=== PATIENT | female | born 1980 | race Caucasian/White ===

== ENCOUNTER → 2017-06-28 15:05 | Outpatient (CLI) | payer MEDICAID, SELFPAY ==
[2017-06-28 17:56] LABS: Absolute Lymphocyte Count 1.95 X10^3/ul (0.83-4.51); Absolute Neutrophil Count 4.8 X10^3/uL (2.0-7.7); Basophil# 0.07 X10^3/uL; Basophil% 0.9 % (0-1); Eosinophil# 0.09 X10^3/uL; Eosinophils% 1.2 % (0-5); Hematocrit 40.1 % (37-47); Hemoglobin 13.6 g/dl (12.0-15.0); Lymphocyte # 1.95 X10^3/ul (4.0); Lymphocyte % 25.6 % (19-41); Mean Corp Hgb Conc 33.9 g/gl (32-36); Mean Corpuscular Hgb 29.8 pg (27.0-32.0); Mean Corpuscular Volume 87.7 fL (81-99); Mean Platelet Vol. 10.4 fl (6.2-12.0); Monocyte# 0.71 X10^3/uL; Monocyte% 9.3 % (0-10); Neutrophil # 4.79 X10^3/uL (2.7-7.7); Platelet Count 434 K/mm3 (150-450); RBC Distribution Width CV 14.4 % (11.6-14.6); RBC Distribution Width SD 45.8 fl (35.1-43.9); Red Blood Count 4.57 M/mm3 (4.2-5.4); White Blood Count 7.6 K/mm3 (4.4-11.0)
[2017-06-28 17:57] LABS: POSITIVE COUNT NO; POSITIVE DIFFERENTIAL NO; POSITIVE MORPHOLOGY NO
[2017-07-05 12:09] LABS: Alternaria alternata <0.10 kU/L (Class 0); Aspergillus fumigatus <0.10 kU/L (Class 0); Bahia Grass <0.10 kU/L (Class 0); Bermuda Grass <0.10 kU/L (Class 0); Bluegrass, Kentucky <0.10 kU/L (Class 0); Cat Hair/Dander, Standard <0.10 kU/L (Class 0); Cedar, Mountain <0.10 kU/L (Class 0); Cladosporium herbarum <0.10 kU/L (Class 0); Cockroach, American <0.10 kU/L (Class 0); D farinae Mite <0.10 kU/L (Class 0); D pteronyssinus <0.10 kU/L (Class 0); Dog Epithelia <0.10 kU/L (Class 0); Elm, American White <0.10 kU/L (Class 0); Hazelnut Tree <0.10 kU/L (Class 0); Hickory, White <0.10 kU/L (Class 0); Johnson Grass <0.10 kU/L (Class 0); Maple/Box Elder <0.10 kU/L (Class 0); Mucor racemosus <0.10 kU/L (Class 0); Mugwort <0.10 kU/L (Class 0); Mulberry, White <0.10 kU/L (Class 0); Nettle <0.10 kU/L (Class 0); Oak, White <0.10 kU/L (Class 0); Penicillium chrysogen <0.10 kU/L (Class 0); Pigweed, Rough <0.10 kU/L (Class 0); Plantain, English <0.10 kU/L (Class 0); Ragweed, Short/Common <0.10 kU/L (Class 0); Sheep Sorrel(Dock) <0.10 kU/L (Class 0); Stemphylium herbarum <0.10 kU/L (Class 0); Sweet Gum <0.10 kU/L (Class 0); Sycamore, American <0.10 kU/L (Class 0)
[2017-07-05 12:52] LABS: ANTINUCLEAR ANTIBODIES DIRECT Positive (Negative)
== END ==
PROVIDERS: Family Provider Family Medicine; PCP Family Medicine; Visit Provider Family Medicine
DX: J31.0 Chronic rhinitis (principal); H04.123 Dry eye syndrome of bilateral lacrimal glands; R53.83 Other fatigue
CPT/HCPCS: 36415; 85025; 86003; 86038

== ENCOUNTER → 2017-07-06 09:41 | Outpatient (CLI) | payer MEDICAID, SELFPAY ==
[2017-07-09 12:08] LABS: Anti-Centromere B Ab <0.2 AI (0.0-0.9); Anti-Chromatin <0.2 AI (0.0-0.9); Anti-Jo <0.2 AI (0.0-0.9); Anti-Scleroderma-70 AB <0.2 AI (0.0-0.9); SJOGREN'S Anti-SS-A test < 0.2 AI (0.0-0.9); SJOGREN'S Anti-SS-B test < 0.2 AI (0.0-0.9); Smith Ab <0.2 AI (0.0-0.9)
[2017-07-09 14:56] LABS: Anti-dsDNA Ab <1 IU/mL (0-9)
== END ==
PROVIDERS: Family Provider Family Medicine; PCP Family Medicine; Visit Provider Family Medicine
DX: H04.123 Dry eye syndrome of bilateral lacrimal glands (principal)
CPT/HCPCS: 36415; 86225; 86235

== ENCOUNTER → 2017-07-16 20:08 | Outpatient (CLI) | payer MEDICAID, SELFPAY | PROVIDERS: Family Provider Family Medicine; PCP Family Medicine; Visit Provider Psychiatry & Neurology Neurology | DX: G47.33 Obstructive sleep apnea (adult) (pediatric) (principal) | CPT/HCPCS: 95811 ==

== ENCOUNTER → 2017-10-02 08:10 | Outpatient (CLI) | payer MEDICAID, SELFPAY ==
[2017-10-02 11:01] LABS: Cholesterol 162 mg/dL (200); High Density Lipoprotein 85 mg/dL; Triglycerides 54 mg/dL; Very Low Density Lipoprotein 11 mg/dL (5-40)
== END ==
PROVIDERS: Family Provider Family Medicine; PCP Family Medicine; Visit Provider Family Medicine
DX: Z00.00 Encounter for general adult medical examination without abnormal findings (principal)
CPT/HCPCS: 36415; 80061

== ENCOUNTER 2017-12-13 15:30 | Outpatient (RCR) | payer MEDICAID, SELFPAY ==
--- NOTE | 2017-11-16 07:31 | HP.PTEVAL ---
Patient's Visit Information AMINA ESPOSITO is a 37 year old F referred to Physical Therapy by Jam Verde with a diagnosis of Cervicalgia. Date of Evaluation: 11/15/17 Physical Therapist: Janusz Sawant PT, - Visit Plan Frequency: 2x /Week Duration: 4 Weeks Plan: Manual work to sub occipitals, paraspinals. . Postural strengthening,modalities PRN. PMH: DMD ambulates with B KAF orthoses, scoliosis,s/p thoracic -lumbar surgery with scar placemenmt - Subjective Subjective: Pt is 37 y/o female referred for cervicalagia. She reports a 3 week history of neck pain. She thinks this may be due to her job as she had a busy work day which required her to sit with a forward head position and look down for a prolonged time. She reports that her pain is located midline cervical region and raditates to the [place] regions. She describes this as achy. At it's worst, she felt she had some equilibrium issues but these are resolved. She has improved since initial onset. She denies n/t in UE's, reports infrequent BALDWIN's, and mild difficulty sleeping. She has PMH of DMD with significant postural assymetries.Patient has h/o of lumbar -upper thoraci surgery with scar placement due to scoliosis. Aggrevating factors: sitting for long periods of time. 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 Thoracic incision starting at T2 and goes down entire spine. Ambulating with B orthoses. PALPATION: L AC elevated, TTP suboccipitals L>R. ROM: Cervical flexion 40, extension 24, L rotation 50%, R rotation 75%. STRENGTH: Unable to elicit deep cervical flexor hold. SPECIAL TESTS: Distraction (+). - Goals Goal 1:: Pt will improve L rotation symmetrical to unaffected side to improve tolerance with driving. Goal Time Frame: 4-6 Weeks Goal 2:: Pt will report ability to work a full shift without pain or limitation to improve work tolerance. Goal Time Frame: 4-6 Weeks Goal 3:: Pt will report no limitation with sleeping to improve QOL. Goal Time Frame: 4-6 Weeks Goal 4:: Pt will be independent with HEP to sustain gains made in the clinic. Goal Time Frame: 4-6 Weeks - Rehabilitation Potential Physical Therapy Diagnosis: Pt is a 37 y/o female referred for cervicalgia by Dr. Jam Verde. She has PMH of DMD. She reports that pain started about 3 weeks ago when she had a busy work week and maintained a protruded head posture for some time. Her symptoms have improved since but she notes localized soreness/achiness in the upper cervical region and midline neck. She is tender to palpation to her L suboccipitals and exhibits a severe loss of deep cervical neck flexor activation. Due to her job, UNIQUE, and symptom presentation she likely is experiencing soft tissue irritation to the suboccipitals and cervical paraspinals. She is having activity limitations that include difficulty sleeping, difficulty driving, and prolonged sitting. This affects her participation with work. She will benefit from skilled PT to address the mentioned impairments to maximize function. Rehabilitation Potential: Good - Anticipated Interventions Patient/Client Instruction: Educate patient on: Condition, Plan of Care For the Purpose of:: To decrease pain, To increase ROM, To improve muscle performance and motor function, To increase tolerance to activity/condition/position, To improve performance and independence with ADL's, To improve ability of physical actions for home/community/work/leisure, To increase flexibility/ROM, To improve endurance, To improve self management Therapeutic Exercise to Include: Strength training, Endurance training, Body mechanics, Postural training, Flexibilty training, Active ROM, Scapular Strength/Stabilization For the Purpose of:: To decrease pain, To increase ROM, To improve muscle performance and motor function, To increase tolerance to activity/condition/position, To improve ability of physical actions for home/community/work/leisure, To improve health of tissue, To decrease soft tissue restriction, To increase flexibility/ROM, To improve self management Manual Therapy Techniques to Include: Mobilization, Soft tissue mobilization For the Purpose of:: To decrease pain, To increase ROM, To increase tolerance to activity/condition/position, To improve ability of physical actions for home/community/work/leisure, To improve health of tissue, To decrease soft tissue restriction, To increase flexibility/ROM Cryotherapy (ice pack, ice massage): Yes Thermo therapy (hot pack): Yes Ultrasound (thermal/non thermal): Yes For the Purpose of:: To decrease pain, To increase ROM, To increase tolerance to activity/condition/position, To improve ability of physical actions for home/community/work/leisure, To decrease soft tissue restriction, To increase flexibility/ROM Thank you for the opportunity to evaluate your patient. For Medicare and Medicare HMO plans, please review the plan of care and approve it. It will need to be FAXED BACK to us at [phone] for Medicare purposes. Please let me know if there are questions or concerns regarding this plan of care. Physician Signature: Date:
--- NOTE | 2017-11-16 07:57 | HP.PTEVAL_ITS ---
Patient's Visit Information AMINA ESPOSITO is a 37 year old F referred to Physical Therapy by Jam Verde with a diagnosis of Cervicalgia. Date of Evaluation: 11/15/17 Physical Therapist: Janusz Sawant, PT, - Visit Plan Frequency: 2x /Week Duration: 4 Weeks Plan: Manual work to sub occipitals, paraspinals. . Postural strengthening, modalities PRN. PMH: DMD ambulates with B KAF orthoses, scoliosis,s/p thoracic -lumbar surgery with sacr placemenmt - Subjective Subjective: Pt is 37 y/o female referred for cervicalagia. She reports a 3 week history of neck pain. She thinks this may be due to her job as she had a busy work day which required her to sit with a forward head position and look down for a prolonged time. She reports that her pain is located midline cervical region and raditates to the Lorenzo [place] regions. She describes this as achy. At it's worst, she felt she had some equilibrium issues but these are resolved. She has improved since initial onset. She denies n/t in UE's, reports infrequent BALDWIN's, and mild difficulty sleeping. She has PMH of DMD with significant postural assymetries.Patient has h/o of lumbar -upper thoraci surgery with scar placement due to scoliosis. Aggrevating factors: sitting for long periods of time. 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 Thoracic incision starting at T2 and goes down entire spine. Ambulating with B orthoses. PALPATION: L AC elevated, TTP suboccipitals L>R. ROM: Cervical flexion 40, extension 24, L rotation 50%, R rotation 75%. STRENGTH: Unable to elicit deep cervical flexor hold. SPECIAL TESTS: Distraction (+). - Goals Goal 1:: Pt will improve L rotation symmetrical to unaffected side to improve tolerance with driving. Goal Time Frame: 4-6 Weeks Goal 2:: Pt will report ability to work a full shift without pain or limitation to improve work tolerance. Goal Time Frame: 4-6 Weeks Goal 3:: Pt will report no limitation with sleeping to improve QOL. Goal 4:: Pt will be independent with HEP to sustain gains made in the clinic. Goal Time Frame: 4-6 Weeks - Rehabilitation Potential Physical Therapy Diagnosis: Pt is a 37 y/o female referred for cervicalgia by Dr. Jam Verde. She has PMH of DMD. She reports that pain started about 3 weeks ago when she had a busy work week and maintained a protruded head posture for some time. Her symptoms have improved since but she notes localized soreness/ achiness in the upper cervical region and midline neck. She is tender to palpation to her L suboccipitals and exhibits a severe loss of deep cervical neck flexor activation. Due to her job, UNIQUE, and symptom presentation she likely is experiencing soft tissue irritation to the suboccipitals and cervical paraspinals. She is having activity limitations that include difficulty sleeping , difficulty driving, and prolonged sitting. This affects her participation with work. She will benefit from skilled PT to address the mentioned impairments to maximize function. Rehabilitation Potential: Good - Anticipated Interventions Patient/Client Instruction: Educate patient on: Condition, Plan of Care For the Purpose of:: To decrease pain, To increase ROM, To improve muscle performance and motor function, To increase tolerance to activity/condition/ position, To improve performance and independence with ADL's, To improve ability of physical actions for home/community/work/leisure, To increase flexibility/ROM, To improve endurance, To improve self management Therapeutic Exercise to Include: Strength training, Endurance training, Body mechanics, Postural training, Flexibilty training, Active ROM, Scapular Strength /Stabilization For the Purpose of:: To decrease pain, To increase ROM, To improve muscle performance and motor function, To increase tolerance to activity/condition/ position, To improve ability of physical actions for home/community/work/leisure , To improve health of tissue, To decrease soft tissue restriction, To increase flexibility/ROM, To improve self management Manual Therapy Techniques to Include: Mobilization, Soft tissue mobilization For the Purpose of:: To decrease pain, To increase ROM, To increase tolerance to activity/condition/position, To improve ability of physical actions for home/ community/work/leisure, To improve health of tissue, To decrease soft tissue restriction, To increase flexibility/ROM Cryotherapy (ice pack, ice massage): Yes Thermo therapy (hot pack): Yes Ultrasound (thermal/non thermal): Yes For the Purpose of:: To decrease pain, To increase ROM, To increase tolerance to activity/condition/position, To improve ability of physical actions for home/ community/work/leisure, To decrease soft tissue restriction, To increase flexibility/ROM Thank you for the opportunity to evaluate your patient. For Medicare and Medicare HMO plans, please review the plan of care and approve it. It will need to be FAXED BACK to us at [phone] for Medicare purposes. Please let me know if there are questions or concerns regarding this plan of care. Physician Signature: Date:
--- NOTE | 2017-12-13 17:12 | HP.PTDCSUM_ITS ---
HP - PT D/C Summary It has been my pleasure to treat AMINA ESPOSITO under orders from Jam Verde, for the diagnosis of Cervicalgia for a total of 8 visit(s). Discharge Date: 12/13/17 Please see the following information for a summary of their discharge status. - Subjective Subjective: Patient reports pain is about same.. 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 NEURO: INTACT. MMT : 4/5 ,except shoulders 4-/5. CERCVICAL ROM: flexion mod loss ,extension min loss,rotation /lateral flexion mod loss - Goals Goal 1:: Pt will improve L rotation symmetrical to unaffected side to improve tolerance with driving. Goal Progress: Progressing Goal 2:: Pt will report ability to work a full shift without pain or limitation to improve work tolerance. Goal Progress: Progressing Goal 3:: Pt will report no limitation with sleeping to improve QOL. Goal Progress: Progressing Goal 4:: Pt will be independent with HEP to sustain gains made in the clinic. Goal Progress: Goal Met - Plan Plan: D/C RTD - D/C Information Discharge Comments: RTD ,RECOMMEND X-RAYS If there are questions or concerns regarding this patient's physical therapy, please feel free to call me at [phone]. Thank you for the referral of this patient. Sincerely, Janusz Sawant, PT,
== END 2017-12-13 19:00 | disposition home or self-care (01) ==
LOC: PT 15:30
PROVIDERS: Family Provider Family Medicine; PCP Family Medicine; Visit Provider Family Medicine
DX: M25.512 Pain in left shoulder (principal); Q68.8 Other specified congenital musculoskeletal deformities; M54.2 Cervicalgia; R29.3 Abnormal posture
CPT/HCPCS: 97035; 97110; 97140; 97162

== ENCOUNTER → 2018-08-05 13:44 | Outpatient (CLI) | payer OTHER, SELFPAY ==
--- NOTE | 2018-08-05 13:49 | US_ITS ---
STUDY: THYROID ULTRASOUND REASON FOR EXAM: Female, 37 years old. Enlarged thyroid. TECHNIQUE: Ultrasound evaluation of the thyroid was performed with real-time and static ham-scale imaging. COMPARISON: None. FINDINGS: RIGHT LOBE: The right lobe of the thyroid gland measures 4.8 x 1.6 x 1.1 cm. There is a homogeneous echotexture. There are no demonstrated solid, cystic or complex lesions. LEFT LOBE: The left lobe of the thyroid gland measures 2.4 x 1.5 x 1.1 cm. There is a homogeneous echotexture. There are no demonstrated solid, cystic or complex lesions. ISTHMUS: The isthmus measures 2 mm. The regional lymph nodes are normal. Moderate vascularity is noted in both thyroid lobes. US/Thyroid IMPRESSION: Normal ultrasound examination of the thyroid. Electronically Signed: Ino Matson MD at 15:51 EDT , Service support ,
== END ==
PROVIDERS: Referring Provider Nurse Practitioner Family; Visit Provider Nurse Practitioner Family
DX: E04.9 Nontoxic goiter, unspecified (principal)
CPT/HCPCS: 76536

== ENCOUNTER → 2018-08-22 11:20 | Outpatient (CLI) | payer OTHER, SELFPAY ==
[2018-08-22 10:40] VITALS: BMI 19.7
--- NOTE | 2018-08-22 11:23 | RAD_ITS ---
STUDY: X-RAY EXAMINATION: SCOLIOSIS SERIES REASON FOR EXAM: Female, 37 years old. Back pain, scoliosis, prior fusion TECHNIQUE: Frontal view(s) of the thoracolumbar spine were obtained in the upright standing position. COMPARISON: None. FINDINGS: There is a 36 degree dextroscoliosis of the thoracic spine with the apex of the convexity at the T8 level. Posterior fusion rods of the thoracolumbar spine spanning from the upper thoracic spine to the mid lumbar spine. Normal thoracic vertebrae and endplates. Normal disc space heights of the thoracic spine. Normal lumbar vertebrae and endplates. Normal disc space heights of the lumbar spine. The soft tissue structures are unremarkable. There is pelvic asymmetry/tilt. RAD/Scoliosis 1 view IMPRESSION: C shaped rotatory levoscoliosis of the thoracic spine measuring up to 36 degrees. Thoracolumbar fusion. No comparison studies. Electronically Signed: Taz Alston MD at 10:52 EDT , Service support ,
--- NOTE | 2018-08-22 11:23 | RAD_ITS ---
HISTORY: chronic back pain COMPARISON: None FINDINGS: XR Spine Thoracic 3 Views: Long C-shaped thoracic dextroscoliosis with the apex of the curve at the T8-T9 level. Dextroscoliosis measures approximately 45. Thoracic vertebra appear normal in height. Thoracic spine stabilization with posterior paired Cline rods with hook devices for attachment. The rods appear intact. No complications seen. RAD/Thoracic Spine 3 Views IMPRESSION: Thoracic dextroscoliosis. Details above. at 0752 Reported and signed by: Frederick Farias MD Electronically Signed: Frederick Farias, at 7:51 EDT Tel , Service support ,
== END ==
PROVIDERS: Referring Provider Physician Assistant; Visit Provider Physician Assistant
DX: M41.9 Scoliosis, unspecified (principal); M54.6 Pain in thoracic spine; M43.20 Fusion of spine, site unspecified
CPT/HCPCS: 72072; 72081

== ENCOUNTER → 2019-07-28 12:47 | Outpatient (CLI) | payer OTHER, SELFPAY ==
[2018-08-22 10:40] VITALS: BMI 19.7
--- NOTE | 2019-07-28 12:49 | BI_ITS ---
MAMMOGRAPHY - BILATERAL SCREENING REASON FOR EXAM: Female, 38 years old. Routine annual screening examination. PERTINENT HISTORY: Non-contributory. TECHNIQUE: Digital bilateral breast faisal (3D mammographic acquisition) in the CC and MLO projections. 2-D mediolateral oblique (MLO) and craniocaudad (CC) views of both breasts were obtained. CAD: Full Field Digital Mammography with Computer Added Detection was performed. COMPARISON: None. Baseline examination. FINDINGS: Breast Composition: The breasts are heterogeneously dense, which may obscure small masses. There are no dominant masses or suspicious calcifications. Small benign-appearing bilateral axillary lymph nodes. No other significant abnormalities are identified. BI/SCREEN MAMM (CAD) W/FAISAL BILAT IMPRESSION: Negative screening mammogram. Yearly followup mammogram recommended. (A) ASSESSMENT CATEGORY: BIRADS Category 2: Benign. A letter regarding these results will be sent to the patient by the facility within 30 days. Approximately 10% of breast cancers are not detected by mammography. A normal mammogram should not delay biopsy of a clinically suspicious abnormality. [id number] Electronically Signed: Michael Bal, at 14:00 EST , Service support ,
== END ==
PROVIDERS: PCP Family Medicine; Referring Provider Family Medicine; Visit Provider Family Medicine
DX: Z12.31 Encounter for screening mammogram for malignant neoplasm of breast (principal)
CPT/HCPCS: 77063; 77067

== ENCOUNTER → 2020-04-27 16:50 | Outpatient (CLI) | payer OTHER, SELFPAY | PROVIDERS: PCP Family Medicine; Referring Provider Nurse Practitioner Family; Visit Provider Nurse Practitioner Family | DX: Z20.828 Contact with and (suspected) exposure to other viral communicable diseases (principal) | CPT/HCPCS: 87635; U0003 ==

== ENCOUNTER → 2020-08-27 10:27 | Outpatient (CLI) | payer OTHER, SELFPAY ==
[2020-08-27 12:22] LABS: Hematocrit 41.9 % (37-47); Hemoglobin 13.5 g/dL (12.0-15.0); Mean Corp Hgb Conc 32.2 g/dL (32-36); Mean Corpuscular Volume 89.9 fL (81-99); Mean Platelet Vol. 10.1 fl (6.2-12.0); Platelet Count 400 K/mm3 (150-450); RBC Distribution Width CV 13.4 % (11.6-14.6); RBC Distribution Width SD 44.1 fl (35.1-43.9); Red Blood Count 4.66 M/mm3 (4.2-5.4); White Blood Count 8.3 K/mm3 (4.4-11.0)
[2020-08-27 12:34] LABS: ALB/GLOB Ratio 1.1 RATIO (0.9-2.4); AST(SGOT) 17 U/L (15-37); Alanine Aminotransfer ALT/SGPT 21 U/L (13-56); Albumin, Serum 3.7 g/dL (3.2-5.0); Alkaline Phosphatase 114 U/L (45-117); Anion Gap 5 (5-15); BUN 13 mg/dL (7-18); BUN/Creat Ratio 43.2 RATIO (10-20); Chloride 104 mmol/L (98-107); Cholesterol 186 mg/dL (200); EST Glomerular Filtration Rate 259 mL/min (>60); Est Glom Filt Rate - Afr Amer 313 mL/min (>60); Globulin 3.5 g/dL (2.2-4.2); Glucose 91 mg/dL (74-106); High Density Lipoprotein 98 mg/dL; Potassium 3.6 mmol/L (3.5-5.1); Protein, Total 7.2 g/dL (6.4-8.2); Sodium Level 137 mmol/L (136-145); Triglycerides 51 mg/dL; Very Low Density Lipoprotein 10 mg/dL (5-40)
[2020-08-27 12:58] LABS: Vitamin D,25 Hydroxy 28.5 ng/mL
== END ==
PROVIDERS: PCP Family Medicine; Referring Provider Family Medicine; Visit Provider Family Medicine
DX: Z13.220 Encounter for screening for lipoid disorders (principal); G47.33 Obstructive sleep apnea (adult) (pediatric); E55.9 Vitamin D deficiency, unspecified
CPT/HCPCS: 36415; 80053; 80061; 82306; 85027

== ENCOUNTER → 2021-01-21 15:59 | Outpatient (CLI) | payer OTHER, SELFPAY ==
[2021-01-21 18:13] LABS: Absolute Lymphocyte Count 1.75 X10^3/uL (0.83-4.51); Absolute Neutrophil Count 6.2 X10^3/uL (2.0-7.7); Basophil# 0.07 X10^3/uL; Basophil% 0.8 % (0-1); Eosinophil# 0.15 X10^3/uL; Eosinophils% 1.6 % (0-5); Hematocrit 39.2 % (37-47); Hemoglobin 13.1 g/dL (12.0-15.0); Lymphocyte # 1.75 X10^3/ul (0.83-4.51); Lymphocyte % 19.2 % (19-41); Mean Corp Hgb Conc 33.4 g/dL (32-36); Mean Corpuscular Hgb 28.9 pg (27.0-32.0); Mean Corpuscular Volume 86.3 fL (81-99); Mean Platelet Vol. 10.3 fl (6.2-12.0); Monocyte% 9.9 % (0-10); NRBC Flagged by Analyzer 0 % (0-5); Neutrophil # 6.21 X10^3/uL (2.7-7.7); Neutrophil % 68.2 % (47-70); Platelet Count 406 K/mm3 (150-450); RBC Distribution Width CV 13.4 % (11.6-14.6); Red Blood Count 4.54 M/mm3 (4.2-5.4); White Blood Count 9.1 K/mm3 (4.4-11.0)
[2021-01-21 18:27] LABS: ALB/GLOB Ratio 0.9 RATIO (0.9-2.4); AST(SGOT) 15 U/L (15-37); Alanine Aminotransfer ALT/SGPT 22 U/L (13-56); Albumin, Serum 3.6 g/dL (3.2-5.0); Alkaline Phosphatase 114 U/L (45-117); Anion Gap 7 (5-15); BUN 11 mg/dL (7-18); BUN/Creat Ratio 38.6 RATIO (10-20); Calcium,Total 8.6 mg/dL (8.5-10.1); Chloride 105 mmol/L (98-107); Creatinine, Serum 0.28 mg/dL (0.55-1.02); EST Glomerular Filtration Rate 275 mL/min (>60); Est Glom Filt Rate - Afr Amer 333 mL/min (>60); Globulin 3.8 g/dL (2.2-4.2); Glucose 111 mg/dL (74-106); Lipase 81 U/L (73-393); Potassium 3.3 mmol/L (3.5-5.1); Protein, Total 7.4 g/dL (6.4-8.2); Sodium Level 139 mmol/L (136-145)
== END ==
PROVIDERS: PCP Family Medicine; Visit Provider Family Medicine
DX: R19.7 Diarrhea, unspecified (principal)
CPT/HCPCS: 36415; 80053; 83690; 85025; 86140

== ENCOUNTER → 2021-01-24 09:19 | Outpatient (CLI) | payer OTHER, SELFPAY | PROVIDERS: PCP Family Medicine; Visit Provider Family Medicine | DX: R19.7 Diarrhea, unspecified (principal) | CPT/HCPCS: 87506 ==

== ENCOUNTER → 2021-02-02 07:40 | Outpatient (CLI) | payer OTHER, SELFPAY ==
--- NOTE | 2021-02-02 07:45 | US_ITS ---
STUDY: ABDOMINAL ULTRASOUND - RIGHT UPPER QUADRANT REASON FOR VISIT: Female, 40 years old diarrhea TECHNIQUE: Ultrasound evaluation of the right upper quadrant was performed with real-time and static ham-scale imaging. TECHNICAL QUALITY: Adequate. COMPARISON: Comparison is made with prior examination 09/07/2016. FINDINGS: Liver: The liver measures 14.2 cm. There is normal echogenicity of the liver. The bile ducts are within normal limits. There is hepatic color flow. The direction of portal flow is hepatopetal. There is no demonstrated mass lesion. Gallbladder: Normal distended gallbladder. The gallbladder wall measures 3 mm. There is a negative sonographic Caruso''s sign. There is no pericholecystic fluid. There are no gallstones. Common Bile Duct (C.B.D.): The common bile duct measures 5 mm. Pancreas: Normal size of the head, body and tail of the pancreas. There is normal echogenicity of the pancreas. There is no demonstrated pancreatic mass or cyst. Right Kidney: Normal size of the right kidney. The right kidney measures 9.8 cm x 4.4 cm x 3.2 cm. Normal renal cortex. The right cortex measures 0.9 cm. There is no demonstrated renal mass or cyst. There is no right hydronephrosis. US/Abdomen Limited IMPRESSION: Normal right upper quadrant ultrasound examination. Electronically Signed: Michael Bal MD at 15:51 EDT , Service support ,
== END ==
PROVIDERS: PCP Family Medicine; Referring Provider Family Medicine; Visit Provider Family Medicine
DX: R19.7 Diarrhea, unspecified (principal)
CPT/HCPCS: 76705

== ENCOUNTER 2021-03-03 16:00 | Outpatient (RCR) | payer OTHER, SELFPAY ==
--- NOTE | 2020-12-28 08:12 | HP.PTEVAL ---
Patient's Visit Information AMINA GODINEZ is a 40 year old F referred to Physical Therapy by Dr. Jam Verde MD with a diagnosis of R Shoulder pain OA. Date of Evaluation: 12/21/20 Physical Therapist: Home Hess PT, SONALI, SCS, CSCS - Subjective Ms. Godinez is a pleasant 40 yo who was referred to our care by Dr Jam Verde following a consult by a neurologist at [facility]. 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 She states that she is here because she is having difficulty with using her right arm in addition to neck pain. She states that she is relatively inactivate and may sit at her desk all day. When she tries to enter her home she must use her right dominant arm to navigate her steps and door. Since she has been taking magnesium her pain level in her R>L shoulder has decreased. Her past medical history is significant for arthrogryposis. When she was 4 she had her lower legs removed and she currently ambulates with lower leg orthosis. When she was 10 yo she underwent a spinal fusion with instrumentation. An xray taken in 2019, indicated that she has a c shaped rotatory levoscoliosis of the thoracic spine measuring up to 36 degrees. May have had a history of R shoulder dislocation. - Pain Right Shoulder Pain Intensity (Out of 10): 3 Pain Intensity Range: 2, 7 Left Shoulder Pain Intensity (Out of 10): 1 - Objective Iliac crest appear to be even with braces in standing position as a result of her gait she had a tendency to abduct her lower legs and waddles from side to side. In the standing position I was able to side bend her thoracic spine to the right about 10-15 degrees and left side bending to 40-50 degrees. Right Thoracic rotation was minimal to the right and within a functional limit on the left. Either of those movements increased her shoulder pain. Closer inspection of her Right shoulder indicated 25 degrees of PROM ext. rot 95 flexion abd 90 Int rot to PSIS. Left shoulder 90 ext rot 170 shoulder flexion 160 Abd int rot to L5. 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 MMT of shoulder was r ext 5.5lbs int rot 18lbs shd flexion 18 lbs Left shoulder 9.5 Ext rot, int rot 19 lbs FF 5 lbs. There is a significant difference in ext rotation and ration of int to ext rotation is off. Right active flexion is about 80 degrres. - Balance/Special Test Scores Quick DASH Score: 38.6350 - Goals Goal 1:: Understand the HEP and how her condition and enironment are contributing to her pain and lost in function. Goal Time Frame: 1 Week Goal 2:: Improve ROM by 10% Goal Time Frame: 2 Weeks Goal 3:: Improve MMT of by 20% and improve asymetry Goal Time Frame: 4-6 Weeks Goal 4:: Decrease pain Goal Time Frame: 4-6 Weeks Goal 5:: Adjust workspace and home ADL's to decrease pressure on right dominant shoulder. - Rehabilitation Potential Physical Therapy Diagnosis: R Frozen shoulder Ad Capsulities with underling OA. Rehabilitation Potential: Fair - Anticipated Interventions Thank you for the opportunity to evaluate your patient. For Medicare and Medicare HMO plans, please review the plan of care and approve it. It will need to be FAXED BACK to us at [phone] for Medicare purposes. For Medicare only, by signing this I certify the plan of care. Please let me know if there are questions or concerns regarding this plan of care. Physician Signature: Date:
== END 2021-03-03 19:00 | disposition home or self-care (01) ==
LOC: PT 16:00
PROVIDERS: PCP Family Medicine; Referring Provider Family Medicine; Visit Provider Family Medicine
DX: Q68.8 Other specified congenital musculoskeletal deformities (principal)
CPT/HCPCS: 97012; 97110; 97140; 97162

== ENCOUNTER → 2021-12-26 | Outpatient (CLI) | payer OTHER, SELFPAY ==
[2021-12-26 10:06] LABS: Absolute Lymphocyte Count 2.03 X10^3/uL (0.83-4.51); Absolute Neutrophil Count 6.4 X10^3/uL (2.0-7.7); Basophil# 0.09 X10^3/uL; Eosinophil# 0.16 X10^3/uL; Eosinophils% 1.7 % (0-5); Hematocrit 41.6 % (37-47); Hemoglobin 13.8 g/dL (12.0-15.0); Lymphocyte # 2.03 X10^3/ul (0.83-4.51); Lymphocyte % 21.6 % (19-41); Mean Corp Hgb Conc 33.2 g/dL (32-36); Mean Corpuscular Hgb 28.8 pg (27.0-32.0); Mean Corpuscular Volume 86.8 fL (81-99); Mean Platelet Vol. 10.5 fl (6.2-12.0); Monocyte# 0.74 X10^3/uL; Monocyte% 7.9 % (0-10); NRBC Flagged by Analyzer 0 % (0-5); Neutrophil # 6.36 X10^3/uL (2.7-7.7); Neutrophil % 67.5 % (47-70); Platelet Count 283 K/mm3 (150-450); RBC Distribution Width CV 14.2 % (11.6-14.6); RBC Distribution Width SD 45.2 fl (35.1-43.9); Red Blood Count 4.79 M/mm3 (4.2-5.4); White Blood Count 9.4 K/mm3 (4.4-11.0)
[2021-12-26 10:42] LABS: AST(SGOT) 15 U/L (15-37); Alanine Aminotransfer ALT/SGPT 13 U/L (13-56); Albumin, Serum 3.8 g/dL (3.2-5.0); Alkaline Phosphatase 100 U/L (45-117); Anion Gap 4 (5-15); BUN 9 mg/dL (7-18); BUN/Creat Ratio 23.1 RATIO (10-20); Calcium,Total 9.3 mg/dL (8.5-10.1); Chloride 105 mmol/L (98-107); Cholesterol 175 mg/dL (200); Creatinine, Serum 0.39 mg/dL (0.55-1.02); EST Glomerular Filtration Rate 191 mL/min (>60); Est Glom Filt Rate - Afr Amer 231 mL/min (>60); Globulin 3.7 g/dL (2.2-4.2); Glucose 100 mg/dL (74-106); High Density Lipoprotein 80 mg/dL; Potassium 3.7 mmol/L (3.5-5.1); Protein, Total 7.5 g/dL (6.4-8.2); Sodium Level 137 mmol/L (136-145); Triglycerides 82 mg/dL; Very Low Density Lipoprotein 16 mg/dL (5-40)
== END | disposition home or self-care (01) ==
LOC: MFPLAB 09:26
PROVIDERS: PCP Family Medicine; Visit Provider Family Medicine
DX: Z00.00 Encounter for general adult medical examination without abnormal findings (principal); Q68.8 Other specified congenital musculoskeletal deformities; R79.82 Elevated C-reactive protein (CRP)
CPT/HCPCS: 36415; 80053; 80061; 85025; 86140

== ENCOUNTER → 2022-01-11 | Outpatient (CLI) | payer OTHER, SELFPAY ==
--- NOTE | 2022-01-11 08:00 | BI_ITS ---
MAMMOGRAPHY - BILATERAL SCREENING 3-D TOMOSYNTHESIS REASON FOR EXAM: Female, 41 years old. SCREENING PERTINENT HISTORY: No significant family history. TECHNIQUE: 2-D mammograms and 3-D Tomosynthesis of the breast (s) were performed. CAD was performed. COMPARISON: 07/28/2019 FINDINGS: The breast composition is heterogeneously dense that can obscure small breast masses. Scattered benign calcifications are seen. No dominant mass in the right breast. 2 cm irregular obscured equal density mass with microcalcifications in the upper inner quadrant of the left breast at posterior depth and focal compression views recommended for further evaluation. No suspicious cavitations right breast.. No architectural distortion is identified. There is no skin thickening or retraction. BI/SCRN MAMM (CAD)W/FAISAL BILAT IMPRESSION: 2 cm irregular urinary density mass with microcalcifications in the upper inner quadrant of the left breast and focal compression views are recommended for further evaluation. ASSESSMENT CATEGORY: BIRADS Category 0: Incomplete. Need additional imaging evaluation as above. A letter regarding these results will be sent to the patient by the facility within 30 days. FOLLOW UP RECOMMENDATION: Additional imaging recommended as above. (E) Approximately 10% of breast cancers are not detected by mammography. A normal mammogram should not delay biopsy of a clinically suspicious abnormality. Electronically Signed: Matthew Melendez MD at 9:23 EDT ,
== END | disposition home or self-care (01) ==
LOC: OPBI 07:58
PROVIDERS: PCP Family Medicine; Visit Provider Family Medicine
DX: Z12.31 Encounter for screening mammogram for malignant neoplasm of breast (principal)
CPT/HCPCS: 77063; 77067

== ENCOUNTER → 2022-01-13 | Outpatient (CLI) | payer OTHER, SELFPAY ==
--- NOTE | 2022-01-13 14:14 | BI_ITS ---
MAMMOGRAPHY - UNILATERAL DIAGNOSTIC: LEFT BREAST REASON FOR EXAM: Female, 41 years old. Abnormal screening mammogram. PERTINENT HISTORY: Non-contributory. TECHNIQUE: Compression magnification views of the left breast were obtained. CAD: Full Field Digital Mammography with Computer Added Detection was performed. COMPARISON: Comparison is made with prior examination dated 01/11/2022. FINDINGS: Breast Composition: The breasts are heterogeneously dense, which may obscure small masses. Microcalcifications are seen within a faint nodular density in the slightly upper central portion of the left breast. Biopsy is recommended. No other significant abnormalities are identified. BI/DIAG MAMM W/CAD, UNILAT IMPRESSION: Persistent soft tissue density with calcifications as described. Biopsy recommended. ASSESSMENT CATEGORY: BIRADS Category 4: Suspicious - Biopsy Should Be Considered. A letter regarding these results will be sent to the patient by the facility within 30 days. Approximately 10% of breast cancers are not detected by mammography. A normal mammogram should not delay biopsy of a clinically suspicious abnormality. Electronically Signed: Michael Bal MD at 15:19 EDT ,
== END | disposition home or self-care (01) ==
PROVIDERS: PCP Family Medicine; Visit Provider Family Medicine
DX: R92.8 Other abnormal and inconclusive findings on diagnostic imaging of breast (principal)
CPT/HCPCS: 77065

== ENCOUNTER → 2022-01-18 | Outpatient (CLI) | payer OTHER, SELFPAY ==
--- NOTE | 2022-01-18 | BRBX_PTH ---
PATIENT: AMINA ESPOSITO [facility]: [facility] U#:[id number] AGE/SX: 41/F ROOM: RE01/18/[address]: Dr. Samantha Osorio MD : 1980 BED: DIS: 01/18/2022 SPEC #: [id number] RECD: 01/18/22 15:05 STATUS: DANYELLE REQ #: [id number] ABBY: 01/18/22 00:[address]: Samantha Osorio DEPT: SURGICAL PATHOLOGY RECD BY: Leonela Shaikh ENTERED: 01/19/22 08:12 SP TYPE: BREAST BX OTHR DR: Dr. Jam Verde MD Tissues: Left breast, NOS Procedures: Surgery Specimen Level IV HEADER OPERATION: Left breast biopsy PRE-OP DIAGNOSIS: Left breast mass TISSUE SUBMITTED: Left breast tissue 11 o?clock, 5 cm MICROSCOPIC DIAGNOSIS Left breast, 11 o?clock, 5 cm, core biopsy: Invasive ductal carcinoma, nuclear grade 2-3 (1.2 cm in greatest length). See comment. DONNELL:silvia 01/20/2022 COMMENT Immunohistochemistry ([id number]) supports the above diagnosis. ER/AK/Umb4kha studies are being performed on sections of tumor and the results from this study will be reported separately (NY10-250). Case has been reviewed in consultation with Dr. Jones who concurs with the above diagnosis. IDC:AM MICROSCOPIC DESCRIPTION Slides are reviewed. GROSS DESCRIPTION Received in fixative is one container labeled with the patient's name and designated left breast mass. The specimen consists of multiple elongated fragments of miller-yellow fibroadipose tissue that in aggregate measure 2 x 0.5 x 0.1 cm. The entire specimen is submitted in one cassette. / DONNELL:silvia 01/19/2022 TC:0 CPT: 30550
--- NOTE | 2022-01-18 | IMM_PTH ---
PATIENT: AMINA ESPOSITO LOC: [facility] U#:[id number] AGE/SX: 41/F ROOM: RE01/18/[address]: Dr. Samantha Osorio MD : 1980 BED: DIS: 01/18/2022 SPEC #: [id number] RECD: 01/20/22 13:39 STATUS: DAYNELLE REQ #: [id number] ABBY: 01/18/22 00:[address]: Samantha Osorio DEPT: IMMUNOHISTOCHEMISTRY RECD BY: Meseret De La Cruz ENTERED: 01/20/22 13:41 SP TYPE: IMMUNO OTHR DR: Dr. Jam Verde MD Tissues: Left breast, NOS Procedures: CALPONIN-1 (add) CK5-6 (add) CK8 (add) E-CAD (add) HER2 MARU (add) KI-67 (add) P53 (add) AK (add) P40 (add) ER (initial) PHYSICIAN & [address] [address] SPECIMEN INFORMATION: Tissue Source: Left breast, 11 o?clock, 5 cm, core biopsy Clinical Info: Left breast mass Specimen Number: [id number] CPT code: 88168, 00472 x6, 49062 x3 METHODOLOGY: Deparaffinized sections of prefer/formalin-fixed tissue or PAP/DQ stained slides are incubated with monoclonal/polyclonal antibodies/oligonucleotide probes. Localization is made via biotin free immunoperoxidase method. Appropriate controls are performed and reacted as expected. Results on target cell population are indicated in the following table: RESULTS: ANTIBODY / CLONE RESULT E-Cad (ECH-6) positive CK8 (32rfzqO34) positive Calponin-1 (KL478D) negative CK5-6 (D5 & 1684) negative P40 (BC28) negative P53 (DO-7) positive, ~10% Ki-67 (30-9) positive, ~40% MORPHOMETRIC ANALYSIS ER (clone 6F11) >95%, moderate intensity AK (clone 16/1E2) >95%, strong intensity Her-2Neu (clone CB11) 3+ The prognostic test for HER2 is performed on formalin-fixed paraffin embedded tissue. A 3+ (positive) staining pattern is defined as intense, homogeneous, complete, circumferential membranous staining in >10% of contiguous tumor cells. A similar weak (2+) staining pattern is interpreted as equivocal. GALILEA follow-up testing is recommended for all equivocal cases. Positivity/negativity for ER/AK is reported if > or < 1% of the tumor cells are immuno- reactive, respectively. The ASCO/CAP criteria is used for scoring. Reference: Journal of Clinical Oncology, 2013; 31:9879-8370 & 2010; 16:5245-0750. Duration of fixation: 28.5 Hrs; Sample Adequate: Yes. These assays have not been validated on decalcified tissues. Results should be interpreted with caution given the likelihood of false negativity on decalcified specimens. These tests were developed and their performance characteristics determined by [facility]. They may not have been cleared or approved by the U.S. Food and Drug Administration. The FDA has determined that such clearance or approval is not necessary. The above immunohistochemical/dualISH markers are ordered and reviewed by the Pathologist. INTERPRETATION: Left breast, 11 o?clock, 5 cm, core biopsy: Invasive Ductal carcinoma, nuclear grade 2-3. Positive for estrogen receptors (favorable prognostic indicator). Positive for progesterone receptors (favorable prognostic indicator). Positive for overexpression of QGG9loc. SJ:silvia 01/23/2022
== END | disposition home or self-care (01) ==
LOC: LABSPEC 15:31
PROVIDERS: PCP Family Medicine; Referring Provider Surgery; Visit Provider Surgery
DX: C50.919 Malignant neoplasm of unspecified site of unspecified female breast (principal)
CPT/HCPCS: 88305; 88341; 88342

== ENCOUNTER → 2022-01-26 | Outpatient (CLI) | payer OTHER, SELFPAY ==
--- NOTE | 2022-01-26 08:01 | US_ITS ---
STUDY: SUPERFICIAL ULTRASOUND - RECENT DIAGNOSIS OF LEFT BREAST CANCER. REASON FOR EXAM: Female, 41 years old. US LEFT AXILLA BREAST CANCER STAGING -- LEFT AXILLA TECHNIQUE: A superficial ultrasound was performed with real-time and static ham-scale imaging. COMPARISON: None. FINDINGS: 3 lymph nodes are seen in the left axilla. The largest lymph node measures 1.6 x 0.7 cm x 0.7 cm. Is also evidence of a lymph node with cystic changes measuring 3 mm x 5 mm x 3 mm. US/Ext Non Vasc Limited/Soft Tiss IMPRESSION: Left axillary lymph nodes. Correlation with the nuclear medicine [place] node imaging is recommended prior to surgery. Electronically Signed: Michael Bal MD at 12:40 EDT ,
== END | disposition home or self-care (01) ==
LOC: US 08:00
PROVIDERS: PCP Family Medicine; Visit Provider Internal Medicine Hematology & Oncology
DX: C50.919 Malignant neoplasm of unspecified site of unspecified female breast (principal)
CPT/HCPCS: 76882

== ENCOUNTER → 2022-01-31 | Outpatient (CLI) | payer OTHER, SELFPAY ==
--- NOTE | 2022-01-31 10:49 | ECHOCSONC_ITS ---
Reason For Study: breast cancer Procedure This was a 2D Doppler, Color Flow transthoracic echocardiogram. Myocardial strain analysis was performed in this exam to aid in the assessment of cardiac function. Exam performed in department. Left Ventricle Normal LV size. Left ventricular systolic function is normal. The estimated ejection fraction is 60 %. Normal diastology for age. No regional wall motion abnormalities noted. Right Ventricle Normal RV size. Normal systolic function. Atria Normal left atrium. Normal right atrium. Mitral Valve Normal mitral valve. Tricuspid Valve Normal tricuspid valve. Aortic Valve Normal aortic valve. Trisinus/trileaflet aortic valve. Pulmonic Valve Normal pulmonic valve. Great Vessels Normal aortic root. The pulmonary artery is normal size. Normal inferior vena cava. Pericardium/Pleural No pericardial effusion. MMode/2D Measurements & Calculations LVIDd: 3.6 cm IVSd: 0.64 cm Ao root diam: 2.5 cm LVIDs: 2.6 cm LVPWd: 0.73 cm RVDd: 2.7 cm FS: 29.1 % LAV(MOD-bp): 18.1 ml LA A4 area: 10.0 cm2 LA dimension(2D): 2.6 cm LAV(MOD-bp) Indexed: 13.3 ml/m2 LAV(MOD-sp2): 12.5 ml LAV(MOD-sp4): 24.1 ml Time Measurements MV dec time: 0.25 sec Doppler Measurements & Calculations MV E max shad: 71.9 cm/sec Lat Peak E' Shad: 11.0 cm/sec Med Peak E' Shad: 11.6 cm/sec MV A max shad: 55.5 cm/sec E/E' lat: 6.5 E/E' med: 6.2 MV E/A: 1.3 MV dec slope: 284.1 cm/sec2 PA V2 max: 88.1 cm/sec ECHO/ONC Echo Complete W/ Contrast Interpretation Summary Normal LV size. Left ventricular systolic function is normal. The estimated ejection fraction is 60 %. Normal diastology for age. The global longitudinal strain is normal. The global longitudinal strain = -17. 4 % (normal). Ordering Physician: Tehodore Perez Performed By: Courtney Cardona, ERICA, RVT
== END | disposition home or self-care (01) ==
PROVIDERS: PCP Family Medicine; Referring Provider Internal Medicine Hematology & Oncology; Visit Provider Internal Medicine Hematology & Oncology
DX: C50.919 Malignant neoplasm of unspecified site of unspecified female breast (principal); Z79.899 Other long term (current) drug therapy; Z51.81 Encounter for therapeutic drug level monitoring
CPT/HCPCS: 93306; 93356; C8929

== ENCOUNTER → 2022-02-02 | Outpatient (CLI) | payer OTHER, SELFPAY ==
--- NOTE | 2022-02-02 10:06 | MRI_ITS ---
STUDY: BILATERAL BREAST MR WITHOUT AND WITH CONTRAST REASON FOR EXAM: Female, 41 years old. Left breast cancer status post biopsy 01/18/2022. TECHNIQUE: Multi-sequence multi-echo imaging of both breasts was performed with a dedicated breast coil. T1-weighted and T2-weighted images were performed before the administration of contrast. T1-weighted images were also performed after the intravenous administration of 10ML of DOTAREM contrast. COMPARISON: Bilateral mammograms dated 07/28/2019, 01/11/2022, left diagnostic mammogram dated 01/13/2022 and ultrasound-guided biopsy images dated 01/18/2022. FINDINGS: RIGHT BREAST: The breast tissue is heterogeneously dense with minimal background enhancement. There are no abnormal enhancing masses or areas of non-mass enhancement in the right breast. LEFT BREAST: The breast tissue is heterogeneously dense with minimal background enhancement. Irregular enhancing mass in the upper and slightly inner aspect of the left breast measuring 1.6 cm x 1.4 cm x 2.1 cm which corresponds to the mammographic and ultrasonographic findings. Multiple lymph nodes in the left axilla, the largest of which measures approximately 1.4 cm in diameter. This largest lymph node has a fatty hilum. Another lymph node anterior and slightly inferior to this lymph node measures 7 mm in diameter with no appreciable fatty hilum. There is no abnormality in the visualized regions of the chest or liver. MRI/Breast Bilateral W/O and W IMPRESSION: Irregular enhancing mass in the left breast compatible with the known left breast carcinoma. Two lymph nodes in the left axilla which have no convincing MRI evidence of involvement. No other abnormality present. CATEGORY: BIRADS Category 6: Known Biopsy-Proven Malignancy - Appropriate Action Should Be Taken. A letter regarding these results will be sent to the patient by the facility within 30 days. Electronically Signed: Murphy Galvez, at 15:48 EDT ,
== END | disposition home or self-care (01) ==
PROVIDERS: PCP Family Medicine; Referring Provider Surgery; Visit Provider Surgery
DX: C50.919 Malignant neoplasm of unspecified site of unspecified female breast (principal)
CPT/HCPCS: 77049; A9575; A4216; C8908

== ENCOUNTER 2022-02-07 08:39 | Day surgery (SDC) | payer OTHER, SELFPAY ==
[2022-02-07] VITALS (7 sets, daily range): BP systolic 91–122; BP diastolic 57–74; PULSE 64–99; RESP 16–18; TEMP 36–37.1; O2SAT 100; BMI 22.8
--- NOTE | 2022-02-07 | IMM_PTH ---
PATIENT: AMINA ESPOSITO LOC: [facility] U#:[id number] AGE/SX: 41/F ROOM: RE02/07/[address]: Dr. Samantha Osorio MD : 1980 BED: DIS: 02/07/2022 SPEC #: [id number] RECD: 02/08/22 13:44 STATUS: DANYELLE REQ #: [id number] ABBY: 02/07/22 00:[address]: Samantha Osorio DEPT: IMMUNOHISTOCHEMISTRY RECD BY: Meseret De La Cruz ENTERED: 02/08/22 13:45 SP TYPE: IMMUNO OTHR DR: Dr. Jam Verde MD Tissues: Axillary lymph node, NOS Procedures: CK7 (add) Pankeratin (initial) PHYSICIAN & INSTITUTION [place] [address] SPECIMEN INFORMATION: Tissue Source: Left axillary lymph node biopsy Clinical Info: Enlarged lymph node Specimen Number: [id number] CPT code: 67297, 93012 METHODOLOGY: Deparaffinized sections of prefer/formalin-fixed tissue or PAP/DQ stained slides are incubated with monoclonal/polyclonal antibodies/oligonucleotide probes. Localization is made via biotin free immunoperoxidase method. Appropriate controls are performed and reacted as expected. Results on target cell population are indicated in the following table: RESULTS: ANTIBODY / CLONE RESULT AE1-3 (AE1/AE3/PCK26) positive CK7 (OV-TL12/30) positive These tests were developed and their performance characteristics determined by [facility]. They may not have been cleared or approved by the U.S. Food and Drug Administration. The FDA has determined that such clearance or approval is not necessary. The above immunohistochemical/dualISH markers are ordered and reviewed by the Pathologist. INTERPRETATION: Left axillary lymph node, biopsy: Lymph node tissue, positive for metastatic carcinoma. DONNELL:silvia 02/09/2022
[2022-02-07] MEDS: Lactated Ringers 1,000 ML 15 ML IV (09:05)
[2022-02-07 09:21] LABS: Internal QC Validated? YES +Cl - CLEAR BKGD; Pregnancy, Urine Negative Negative
--- NOTE | 2022-02-07 09:23 | HP.PCM_ITS ---
History and Physical Date of Admission: 02/07/22 Date of Service:? 01/31/22 MR#: [id number] Acct: [id number] Name:AMINA GUTIERREZ Rep #: [id number] : 1980 ? ? Provider: Dr. Samantha Osorio MD Age/Sex:? 41/F ? ? Location: [facility] [place] Status: Signed Intake Vital Signs ? 01/26/2212:58 02/01/2208:47 Height 4 ft 8 in 4 ft 8 in Weight: ? 109 lb BMI ? 24.4 BP ? 94/69 Blood Pressure Location ? Rt brachial Position ? Sitting Respiration ? 16 Pulse ? 86 Pulse Source ? Monitor Temp ? 97.8 F Temp Source ? Temporal Pulse Oximetry (%) ? 100 Oxygen Delivery Method ? room air Intake Visit Reasons:?PORT PLACEMENT Chief Complaint: Port placement Traveling Clerk Required: No Is patient in pain?: No Allergies kiwi Allergy (Mild, Verified 01/31/22 08:28) AnaphylaxisPenicillins Allergy (Mild, Verified 01/31/22 08:28) Anaphylaxis Medications methylprednisolone 4 mg tablets in a dose pack (Medrol (Juan)) See Rx Instructions PO PER PKG DIR #21 tabs 08/22/18 [Rx Confirmed 01/31/22] cholecalciferol (vitamin D3) 25 mcg (1,000 unit) capsule 2,000 unit PO DAILY 01/25/22 [History Confirmed 01/31/22] duloxetine 20 mg capsule,delayed release 20 mg PO DAILY 01/25/22 [History Confirmed 01/31/22] fluticasone propionate 50 mcg/actuation nasal spray,suspension (Flonase Allergy Relief) 1 spray intranasal DAILY PRN allergy symptoms 01/25/22 [History Confirmed 01/31/22] magnesium 200 mg tablet 400 mg PO DAILY 01/25/22 [History Confirmed 01/31/22] PFSH Medical History? Arthrogryposis Breast cancer Muscular dystrophy neck/back pain Shoulder pain Sleep apnea Surgical History? H/O release of tendon History of spinal fusion Family History? Mother Diabetes Hypertension High cholesterol Thyroid disorderUncle Cancer ?? ? non-hodgkins lymphomaGrandfather Heart diseaseGrandmother Heart diseaseBrother HypertensionUnknown Breast cancer ?? ? mother had 2 cousins with aggressive breast cancerUnknown Thyroid cancer ?? ? maternal cousinOther Arthritis Depression Social History? household members:? family current occupational status:? employed current occupation:? [employer] Smoking Status:? Never smoker alcohol intake:? current alcohol intake frequency: holidays/special occasions only details:? occasional substance use type:? does not use HPI HPI HPI: 41-year-old female presents for follow-up from left breast biopsy to review pathology as well as discuss port placement.? Patient's pathology did show invasive ductal carcinoma, nuclear grade 2?3, ER/WI greater than 95% and HER2/edgardo positive.? Patient has seen oncology and has her MRI breast scheduled on . ROS General General: Yes fatigue; No weight change, appetite, colon cancer or breast cancer HEENT HEENT: No difficulty swallowing, eye injury, eye surgery, swollen glands or hoarseness Endo Endocrine: No thyroid disease, diabetes mellitus, thyroid cancer, Hair loss, heat intolerance or cold intolerance Skin Skin: No rash or changing moles Breast Breast: Yes abnormal mammogram and abnormal US; No left breast lump, right breast lump, nipple discharge, breast pain or breast enlargement Musc Musculoskeletal: Yes back problems and arthritis; No rheumatoid arthritis, gout or joint pain Cardio Cardiovascular: No murmur, pacemaker, heart disease, atrial fibrillation, high blood pressure, heart attack, heart stent, palpitations, shortness of breat with exertion or chest pain Psych Psychiatric: No depression, anxiety or hearing voices Resp Respiratory: No shortness of breath, Yes sleep apnea, No cough, No COPD, No asthma, No emphysema and No wheezing Gastro Gastrointestinal: No abdominal pain, No nausea or vomiting, No diarrhea, No constipation, No blood in stool, No acid reflux, No hemorrhoids, No ulcers, No gallbladder problem and No black,tarry stools Ab Hematologic: No blood thinners, No blood disorders, No bleeding, No anemia and No blood clots Exam Const General: cooperative, comfortable and no acute distress Neck Neck: normal visual inspection and supple Chest Other: Normal inspection and palpation to the upper right chest wall Resp Effort & Inspection: normal respiratory effort Cardio Rate: regular rate Extrem Other: Braces on lower extremities bilaterally Psych Affect: normal affect Assessment and Plan Assessment and Plan (1) Encounter for fitting and adjustment of vascular catheter: ?Status:?Acute (2) Breast cancer: ?Status:?Acute (3) Muscular dystrophy: ?Status:?Chronic Plan Did review patient's ultrasound left axilla findings with the patient and family.? Discussed that prefer to wait for any biopsy until the MRI is complete which is on .? There is a small cystic area that is 2 x 3 mm, discussed with Dr. Perez he would prefer to have the biopsy of this prior to treatment. I have discussed above with the patient- Port-a-Cath placement.? Right internal jugular Patient has been counseled as to the risks/benefits of the procedure. I have explained the risks of the surgery, including but not limited to: infection, bleeding, injury to any blood vessels/nerves, injury to lungs (such as pneumothorax or hemothorax and need for chest tube), not having any access, nonfunctioning of port due to thrombosis, infection of port, etc.? the patient understands and agrees to proceed. I have answered all the patient's questions to the patient?s satisfaction and the patient has no further questions. Samantha Osorio M.D. Pager: [phone] [facility] [address] [place] [address], [address] [place] [address] Office: [phone] Coding Level of Care Code Off vis,est,level 3 Diagnoses Encounter for fitting and adjustment of vascular catheter? Z45.2 Breast cancer? C50.919 Muscular dystrophy? G71.00 01/31/22 0934 <Electronically signed by Samantha Osorio MD> Date Samantha Osorio MD
[2022-02-07] MEDS: Clindamycin 900 MG/50 ML BAG 75 MG IV (10:20)
--- NOTE | 2022-02-07 10:30 | LYMN_PTH ---
PATIENT: AMINA ESPOSITO [place] [facility][id number] AGE/SX: 41/F ROOM: RE02/07/[address]: Dr. Samantha Osorio MD : 1980 BED: DIS: 02/07/2022 SPEC #: [id number] RECD: 02/07/22 13:32 STATUS: DANYELLE REPetar #: [id number] ABBY: 02/07/22 10:[address]: Samantha Osorio DEPT: SURGICAL PATHOLOGY RECD BY: Dwaine Oliva ENTERED: 02/07/22 13:38 SP TYPE: LYMPH NODE OTHR DR: Dr. Jam Verde MD Tissues: LYMPH NODE BIOPSY Procedures: Surgery Specimen Level IV HEADER OPERATION: Right insertion, IJ port / left axillary node biopsy PRE-OP DIAGNOSIS: Need for IV access and enlarged lymph node TISSUE SUBMITTED: Left axillary lymph node biopsy MICROSCOPIC DIAGNOSIS Left axillary lymph node, biopsy: Lymph node tissue positive for metastatic carcinoma. See comment. SJ:silvia 02/08/2022 COMMENT Immunohistochemistry ([id number]) supports the above diagnosis. Largest focus of metastatic carcinoma measures 3 mm in greatest dimension. Extranodal extension is not seen. Please make reference to previous specimen ([id number]) left breast, 11 o?clock, 5 cm, core biopsy with diagnosis of ?invasive ductal carcinoma.? MICROSCOPIC DESCRIPTION Slides are reviewed. GROSS DESCRIPTION Received in fixative is one container labeled with the patient's name and designated left axillary lymph node biopsy. The specimen consists of multiple elongated fragments miller-yellow adipose tissue that in aggregate measure 2 x 0.5 x 0.1 cm. The entire specimen is submitted in one cassette. / DONNELL:silvia 02/07/2022 TC:0 CPT: 77955
[2022-02-07] MEDS: Bupivacaine 0.25% 30 ML Vial (10:40)
[2022-02-07] MEDS: Lidocaine 1% /Epi 1:100 (20ml) 20 ML Vial (10:40)
--- NOTE | 2022-02-07 11:37 | OP.PCM_ITS ---
Report of Operation Date of Procedure: 02/07/22 Pre-Operative Diagnosis: Z45.2, left breast cancer, abnormal left axillary ultr asound Post-Operative Diagnosis: Same Surgery/Procedure Performed:: 1. Placement of right IJ Port-A-Cath 2. Use of ultrasound 3. Use of fluoroscopy 4. Ultrasound-guided left axillary node biopsy Surgeon: Samantha Osorio Type of Anesthesia: Local MAC Anesthesiologist: Ney Rai Special Medications: Clindamycin 900 mg IV x1 Specimen's removed: 1. Left axillary lymph node biopsy Estimated Blood Loss (mL): < 10 cc Description of Procedure: After informed consent was given, the patient was brought to the operating room and placed in the supine position. Appropriate time out protocol was followed. Patient was then given IV conscious sedation for anesthesia. The patient's upper chest and neck were then prepped with a surgical skin preparation and st erile surgical drapes were placed. After proper landmarks were ascertained, the skin at the upper right chest area was then infiltrated with 1:1 mixture of 1% lidocaine with epinephrine and 0.5% marcaine. A needle trocar was then inserted into the right internal jugular vein with ultrasound guidance-multiple vessels were viewed with u/s and the right IJ was chosen-- and there was good aspiration of venous blood. A wire was then threaded into the needle trocar and this was visualized under fluoroscopy to ensure that the wire was in the superior vena cava. Once this was done, then the needle trocar was removed. A small skin nadine was made with an 11 blade knife at the wire entrance site. The dilator with the introducer sheath attached was then placed over the wire into the right internal jugular vein via the Seldinger technique and this was visualized under fluoroscopy. The dilator and sheath were in proper position as visualized by fluoroscopy. A subcutaneous pocket was then created caudad to the catheter insertion site. A transverse skin incision was made after the skin and subcutaneous tissues were infiltrated with local anesthetic. Blunt dissection was then used to create a space large enough for placement of the subcutaneous port. The catheter was then tunneled into the subcutaneous pocket. The wire and dilator were then removed. The catheter was then threaded into the introducer sheath and was positioned with its tip at the junction of the superior vena cava and the right atrium as visualized under fluoroscopy. The excess catheter was transected. The catheter was then attached to the subcutaneous port using manufacturers guidelines. The catheter was flushed with a heparin saline mixture prior to placement. Hemostasis was carefully controlled with electrocautery. The port was sutured to the subcutaneous fascia using 2-0 Vicryl suture at two sites. The port was then placed in the subcutaneous pocket. The incision were reapproximated with interrupted subdermal 3-0 vicryl sutures. The skin was reapproximated with 3-0 nylon suture in a interrupted fashion. Steristrips were used for reinforcement of the skin closure at IJ insertion site and a sterile opsite dressings were applied. The patient tolerated the procedure well. Procedure: Left axillary node ultrasound-guided core biopsy Description of procedure: Patient's left axilla breast was marked. A timeout was completed verifying correct patient, procedure, site, specially, prior to beginning procedure. The left axilla was prepped and draped in usual sterile fashion and using local anesthesia was obtained with 1% lidocaine with epi. The lymph node was located with ultrasound. Small incision was made with 11 blade to introduced the BARD MaxCore through the skin. Under ultrasound guidance multiple core samples were obtained using then 14-gauge BARD MaxCore and sent in formalin for pathology. The Bard dual ultra-clip was then deployed into the biopsy cavity under ultrasound guidance and a picture was taken. Upon completion procedure hemostasis was obtained and a Steri-Strip and OpSite were placed. The patient tolerated the procedure well and went to PACU in stable condition. Grafts/Implants Used: Bard PowerPort isp [employer]. 6Fr Lot [id number] Complications none
--- NOTE | 2022-02-07 11:43 | DCINST_ITS ---
Discharge Instructions Procedure Port-A-Cath Diet Discharge Diet: Light diet - advance as tolerated Activity May shower in (days): 5 (Keep port site clean and dry x5 days. Neck incision and axillary incision okay to get wet after 1 day. Okay to lower shower and upper sponge bath. OR okay to taper off port site with a Ziploc bag to shower) Lifting Restrictions: No lifting > 15 pounds for 3 days with the arm on the side of the port Dressing / Incision Call your doctor if your incision/area has: Continuous Slow Oozing, Sudden Increased Bleeding, Increased Pain/ Swelling, Increased Redness, Foul Smelling Discharge and Swelling at the incision site Call your doctor if you observe: Fever of 101 or Higher Change Dressing in: 2 days Follow Up Care Please Follow Up With: Samantha Osorio MD When: In 10 days for permanent suture removal?call office for appointment Test Results: Test results from this visit will be discussed in further detail at your follow- up appointment, if applicable. Discharge Plan Admission Attending Provider: Samantha Osorio Primary Care Provider: Jam Verde Discharge Orders/Prescriptions Prescriptions: No Action cholecalciferol (vitamin D3) 1,000 unit capsule 25 mcg (1,000 unit) capsule 2,000 unit PO DAILY duloxetine 20 mg capsule,delayed release(DR/EC) 20 mg PO DAILY magnesium 200 mg tablet 400 mg PO DAILY fluticasone propionate [Flonase Allergy Relief] 50 mcg/actuation spray,suspension 1 spray intranasal DAILY PRN (Reason: allergy symptoms) Rx Instructions: administer into each nostril Referrals / Follow Up: Jam Verde MD [Primary Care Provider] - Disposition Disposition (needs filled in before D/C Order can be placed): Home, Self Care
--- NOTE | 2022-02-07 11:45 | RAD_ITS ---
STUDY: X-RAY CHEST REASON FOR EXAM: Female, 41 years old. Port placement TECHNIQUE: Single AP portable view of the chest. COMPARISON: None. FINDINGS: A right-sided portacatheter is in place. The tip is at the junction of the superior vena cava and right atrium. Hyperinflation. The lungs are clear. There is no demonstrated pleural abnormality. Normal size heart. Normal mediastinum and adi. Normal visualized pulmonary arteries. Normal visualized aortic arch and descending thoracic aorta. There is a dextroscoliosis of the thoracic spine. Prior scar fixation of the thoracic scoliosis. Normal visualized ribs, clavicles, and shoulders. There is no demonstrated abnormality of the visualized soft tissue structures of the upper abdomen. RAD/CXR for Line Placement IMPRESSION: The tip of the right portacatheter is at the junction of the superior vena cava and right atrium. Electronically Signed: Michael Bal MD at 12:07 EDT ,
== END 2022-02-07 12:51 | disposition home or self-care (01) ==
LOC: SDC 08:39 → AC 08:41
PROVIDERS: Anesthesiology; PCP Family Medicine; Referring Provider Surgery; Visit Provider Surgery
PROC: (CPT 36561; principal; 2022-02-07 10:15)
DX: Z45.2 Encounter for adjustment and management of vascular access device (principal); C77.3 Secondary and unspecified malignant neoplasm of axilla and upper limb lymph nodes; G71.00 Muscular dystrophy, unspecified; C50.912 Malignant neoplasm of unspecified site of left female breast; Z80.8 Family history of malignant neoplasm of other organs or systems; Z80.3 Family history of malignant neoplasm of breast; Z99.89 Dependence on other enabling machines and devices; F32.A Depression, unspecified; Z98.1 Arthrodesis status; R93.89 Abnormal findings on diagnostic imaging of other specified body structures
CPT/HCPCS: 36561; 19083; 00532; 38525; 71045; 77001; 81025; 88305; 88341; 88342; J7120; C1769; J2405

== ENCOUNTER → 2022-03-08 | Outpatient (CLI) | payer OTHER, SELFPAY | END | disposition home or self-care (01) | PROVIDERS: PCP Family Medicine; Visit Provider Family Medicine | DX: N39.0 Urinary tract infection, site not specified (principal) | CPT/HCPCS: 87086; 87088 ==

== ENCOUNTER 2022-03-22 07:31 | Emergency (ER) | payer OTHER, SELFPAY ==
[2022-03-22 07:32] VITALS: BP 143/100; PULSE 104; RESP 14; TEMP 36.5; O2SAT 98; BMI 25.2
--- NOTE | 2022-03-22 07:56 | CT_ITS ---
STUDY: CTA CHEST REASON FOR EXAM: Female, 41 years old. dyspnea. BREAST CANCER WITH CHEMO YESTERDAY RADIATION DOSAGE (If Supplied By Facility): CTDIvol = ( 6.76 ) mGy, DLP = ( 206.52 ) mGycm TECHNIQUE: The examination was performed with the intravenous administration of IV 75mL Isovue-370. Post-processing of the angiographic images was performed, with multiplanar reformation and 3D reconstruction. Individualized dose optimization techniques were used for this CT. COMPARISON: None. FINDINGS: Right sided ilda catheter with the tip in the superior vena cava. Normal enhancement of the main pulmonary artery and right and left pulmonary arteries. Normal enhancement of the bilateral peripheral pulmonary arteries. There is no demonstrated pulmonary embolism. Normal thoracic aorta and visualized great vessels. There is no demonstrated aortic dissection. Normal heart and pericardium. Normal mediastinum. Normal hilar regions. Normal visualized trachea and bronchi. The lungs are well expanded. Increased interstitial markings are seen in both lungs more prominent at the lung bases. Multiple small nodules are seen in both lungs suggestive of metastasis. Lymphangitic spread should be ruled out. There is also evidence of infiltrate and/or atelectasis at the lung bases more prominent on the right side with a tiny right pleural effusion. Normal pleura. Normal chest wall structures. There are degenerative changes of thoracic spine. Marked degree of dextroscoliosis. The patient is status post multilevel interpedicular screw and scar fixation. Normal visualized upper abdomen. CT/CTA Chest W/WO Contrast IMPRESSION: Multiple tiny nodules in both lungs with increased interstitial markings more prominent at the lung bases. Pulmonary metastases with possible lymphangitic spread should be ruled out. Bibasilar atelectasis more prominent on the right side with small right pleural effusion. Marked degree of dextroscoliosis with prior fusion. Electronically Signed: Michael Bal MD at 8:40 EDT ,
--- NOTE | 2022-03-22 07:56 | EKG12_ITS ---
Test Reason : SOB Blood Pressure : / mmHG Vent. Rate : 075 BPM Atrial Rate : 075 BPM P-R Int : 116 ms QRS Dur : 074 ms QT Int : 386 ms P-R-T Axes : 000 184 159 degrees QTc Int : 431 ms Consider Limb Lead Misplacement Probable Sinus rhythm Low voltage QRS Nonspecific T wave abnormality Recommend repeat ECG Abnormal ECG Confirmed by ESVIN WASHINGTON, VICTORINO ([id number]), industrial editor CHRITSINA RATLIFF ([id number]) on 03/23/2022 10:45:49 AM Referred By: Confirmed By:VICTORINO MCALLISTER MD
--- NOTE | 2022-03-22 07:57 | ED.VIS.DYS ---
HPI History of Present Illness Chief Complaint: Shortness of Breath Detail of Chief Complaint: Shortness of breath since yesterday Informant: patient Narrative Narrative: Patient presents with shortness of breath since yesterday. Patient states that shortness of breath is worse when lying flat or with exertion. She denies any chest pain. Patient has history of breast cancer and received chemotherapy for the second time yesterday. Patient called her oncologist and referred her to the ER. No history of PE or DVT. She denies fever or cough. Patient gives history of increased swelling to both lower extremities over the last several days which she thought it was related to her appetite coming back and eating more salt recently. Patient states that by elevating her legs and some of the swelling seem to go down. [facility] Medical History Acid reflux Alcohol use Anxiety Arthritis Arthrogryposis Braces as ambulation aid Breast cancer Breast cancer, left breast Cancer CINV (chemotherapy-induced nausea and vomiting) CPAP (continuous positive airway pressure) dependence Depression Diarrhea due to drug Elevated C-reactive protein (CRP) (12/26/21) Encounter for education Heartburn History of diverticulitis History of echocardiogram History of edema History of irregular heartbeat Hypokalemia Muscular dystrophy Non-smoker Port-A-Cath in place Wears glasses Home Medications cholecalciferol (vitamin D3) 25 mcg (1,000 unit) capsule 2,000 unit PO DAILY 01/25/22 [History Last Taken Unknown] duloxetine 20 mg capsule,delayed release 20 mg PO DAILY 01/25/22 [History Last Taken Unknown] fluticasone propionate 50 mcg/actuation nasal spray,suspension (Flonase Allergy Relief) 1 spray intranasal DAILY PRN allergy symptoms 01/25/22 [History Last Taken Unknown] lidocaine-prilocaine 2.5 %-2.5 % topical cream 1 applic topical ONCE PRN port access 30 days #30 grams 02/23/22 [Rx Last Taken Unknown] ondansetron 8 mg disintegrating tablet 8 mg PO Q8H PRN nausea and vomiting #30 tabs 02/23/22 [Rx Last Taken Unknown] prochlorperazine maleate 10 mg tablet 10 mg PO Q6H PRN nausea and vomiting #30 tabs 02/23/22 [Rx Last Taken Unknown] dexamethasone 4 mg tablet 8 mg PO .COMPLEX #12 tabs 02/24/22 [Rx Last Taken Unknown] Magnesium Malate 750 mg PO QHS 02/28/22 [History Last Taken Unknown] potassium chloride 20 mEq/15 mL oral liquid 20 meq (15 mL) PO TID #450 mL 03/14/22 [Rx Last Taken Unknown] Allergy/AdvReac Type Severity Reaction Status Date / Time kiwi Allergy Mild Anaphylaxis Verified 03/22/22 07:32 Penicillins Allergy Mild Anaphylaxis Verified 03/22/22 07:32 Family History Mother Diabetes Hypertension High cholesterol Thyroid disorder Uncle Cancer non-hodgkins lymphoma Grandfather Heart disease Grandmother Heart disease Brother Hypertension Unknown Breast cancer mother had 2 cousins with aggressive breast cancer Unknown Thyroid cancer maternal cousin Other Arthritis Depression Surgical History H/O release of tendon History of lymph node biopsy History of spinal fusion Social History household members: family current occupational status: employed 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 Smoking Status: Never smoker alcohol intake: current alcohol intake frequency: holidays/special occasions only details: occasional substance use type: does not use ROS ROS ED Review of Systems ROS Unobtainable: other Constitutional Constitutional ED: Reports lethargy; Denies chills, fever(s), sweats or weight loss Eyes Eyes: Denies blurry vision, change in vision or diplopia ENT ENT ED: Denies rhinorrhea or sore throat Cardiovascular Cardiovascular: Denies chest pain, orthopnea or racing heartbeat Respiratory/Chest Respiratory/Chest: Reports dyspnea and dyspnea on exertion; Denies cough, orthopnea or sputum Gastrointestinal Gastrointestinal: Denies abdominal pain, diarrhea, nausea or vomiting Genitourinary Genitourinary ED: Denies dysuria, hematuria or urinary frequency Musculoskeletal Musculoskeletal: Denies arthralgias, back pain, myalgias or neck pain Integumentary Denies abscess, Abrasions or rash Neurologic Neurologic: Denies headache(s) or weakness Psychiatric Psychiatric: Denies anxiety, depression or suicidal thoughts Endocrine Endocrinology: Denies polydipsia, polyphagia or polyuria Hematologic/Lymphatic Hematologic/Lymphatic: Denies easy bleeding, easy bruising or lymphadenopathy Allergic/Immunologic Allergic/Immunologic ED: Denies mouth swelling, tongue swelling or urticaria EXAM Physical Exam Const Vital Signs: 03/22/22 07:32 03/22/22 08:05 03/22/22 08:05 Temperature 97.7 F L Temperature Source Temporal Pulse Rate 104 H 86 Respiratory Rate 14 16 Respiratory Effort Short of Breath Respiratory Depth Normal Respiratory Pattern Normal Blood Pressure 143/100 H Blood Pressure Mean 114 Pulse Ox 98 Oxygen Delivery Method Room Air Room Air 03/22/22 08:39 03/22/22 09:09 03/22/22 10:25 Temperature 98.2 F 98.2 F 98.1 F Temperature Source Oral Oral Temporal Pulse Rate 85 72 74 Respiratory Rate 20 H 18 16 Respiratory Effort Respiratory Depth Respiratory Pattern Blood Pressure 142/99 H 146/89 H 142/89 H Blood Pressure Mean 113 108 106 Pulse Ox 97 94 98 Oxygen Delivery Method Room Air Room Air Room Air Positive well nourished and well developed General Appearance ED: well developed and NAD HEENT Reports TM's clear and moist mucous membranes normocephalic and atraumatic; Negative for trauma or tenderness Tympanic Membrane ED: Yes TM's clear Eyes PERRL and EOMs intact bilaterally General Eye ED: Negative for pale conjunctiva or scleral icterus Neck no lymphadenopathy, supple and no JVD General: Negative for tenderness Chest Wall inspection of chest normal and palpation of chest normal Chest: Negative for tenderness Resp normal respiratory effort and clear to auscultation bilaterally Effort and Inspection: Negative for respiratory distress or pain with movement Auscultation: Negative for rhonchi, wheezes or diminished lung sounds Cardio regular rate, regular rhythm, S1 normal heart sound, S2 normal heart sound and no murmurs Peripheral Pulses: pulses 2+ throughout GI normal to inspection, nondistended, normoactive bowel sounds, soft to palpation, non-tender, non-distended and no masses Back/Spine no CVA tenderness and no thoracic nor lumbar tenderness Extremity normal to inspection General Extremety ED: Negative for edema General Extremity: Negative for edema Neuro oriented x3, CN's II-XII intact bilaterally, no sensory deficits noted and gait normal Sensorium / Orientation: awake, alert, oriented to person, oriented to place and oriented to time Motor Exam: strength 5/5 throughout and strength abnormal Psych mental status grossly normal Skin no rashes or lesions noted and no wounds MDM MDM MDM Narrative Medical decision making narrative: IV line established on arrival. Lab work-up obtained showed an elevated white count of 33,000 however patient has received Neupogen and steroids yesterday. Patient chemistries unremarkable. Troponin was normal. BNP was slightly elevated 175. CTA of the chest was negative for PE however did show small nodules throughout the lungs concerning for metastasis and lymphangitic spread. I discussed results with patient's oncologist Dr. Tineo who recommended patient follow-up in the office after being discharged from the emergency department to get her Neupogen and schedule further diagnostics to rule out metastasis to the lung. Patient clinically stable and not hypoxic. Lab Data Attestation: I reviewed the patient's lab results. Labs: Laboratory Results - last 24 hr 03/22/22 03/22/22 03/22/22 08:13 08:13 08:13 WBC 32.9 H* RBC 3.80 L Hgb 10.9 L Hct 32.7 L MCV 86.1 MCH 28.7 MCHC 33.3 RDW Std Deviation 47.1 H RDW Coeff of Seema 15.5 H Plt Count 637 H MPV 9.2 Neut % (Auto) Not Reportable Absolute Neuts (auto) 31.2 H Absolute Lymphs (auto) 0.33 L Total Counted 100 Neutrophils % (Manual) 91 H Band Neutrophils % 4 Lymphocytes % (Manual) 1 L Metamyelocytes % 1 Myelocytes % 3 H Diff Path Review May foll Platelet Estimate ADEQUATE RBC Morphology NORM C+C Sodium 141 Potassium 3.1 L Chloride 107 Carbon Dioxide 26.0 Anion Gap 8 BUN 15 Creatinine 0.51 L Estim Creat Clear Calc 114.96 Est GFR (MDRD) Af Amer 167 Est GFR (MDRD) Non-Af 138 BUN/Creatinine Ratio 29.2 H Glucose 153 H Calcium 8.7 Troponin I High Sens 11 B-Natriuretic Peptide 175.3 H Radiography Diagnostic Testing: Clinical Impression(s) from Imaging Studies Chest CTA 03/22/22 07:56 IMPRESSION: Multiple tiny nodules in both lungs with increased interstitial markings more prominent at the lung bases. Pulmonary metastases with possible lymphangitic spread should be ruled out. Bibasilar atelectasis more prominent on the right side with small right pleural effusion. Marked degree of dextroscoliosis with prior fusion. Electronically Signed: Michael Bal MD at 8:40 EDT , EKG Initial EKG: Attestation: I personally reviewed and interpreted this EKG as follows: Comments: Sinus rhythm with rate of 75 bpm with nonspecific changes. Discharge Plan Triage Chief Complaint: Shortness of Breath ED Provider: Eran Hastings Dx/Rx/DC Orders Clinical Impression: Acute dyspnea, History of breast cancer, Leukocytosis Instructions: ED Dyspnea Prescriptions: No Action cholecalciferol (vitamin D3) 1,000 unit capsule 25 mcg (1,000 unit) capsule 2,000 unit PO DAILY duloxetine 20 mg capsule,delayed release(DR/EC) 20 mg PO DAILY fluticasone propionate [Flonase Allergy Relief] 50 mcg/actuation spray,suspension 1 spray intranasal DAILY PRN (Reason: allergy symptoms) Rx Instructions: administer into each nostril lidocaine-prilocaine 2.5-2.5 % cream 1 applic topical ONCE PRN (Reason: port access) 30 Days Qty: 30 2RF ondansetron 8 mg tablet,disintegrating 8 mg PO Q8H PRN (Reason: nausea and vomiting) Qty: 30 2RF prochlorperazine maleate 10 mg tablet 10 mg PO Q6H PRN (Reason: nausea and vomiting) Qty: 30 2RF dexamethasone 4 mg tablet 8 mg PO .COMPLEX Qty: 12 5RF Rx Instructions: 8 mg orally; twice daily ONLY the day before, day of and the day after chemotherapy potassium chloride 20 mEq/15 mL liquid 20 meq PO TID Qty: 450 0RF Magnesium Malate 750 mg PO QHS Primary Care Provider: Jam Verde Referrals: Jam Verde MD [Primary Care Provider] - Theodore Perez MD [Med Staff - Active Staff] - 3-5 Days Activity Restrictions/Additional Instructions: Follow-up with your oncologist for further testing to evaluate for spread of cancer to the lungs. Disposition Disposition: Home, Self Care
[2022-03-22 08:05] VITALS: PULSE 86; RESP 16
[2022-03-22 08:20] LABS: Hematocrit 32.7 % (37-47); Hemoglobin 10.9 g/dL (12.0-15.0); Mean Corp Hgb Conc 33.3 g/dL (32-36); Mean Corpuscular Hgb 28.7 pg (27.0-32.0); Mean Corpuscular Volume 86.1 fL (81-99); Mean Platelet Vol. 9.2 fl (6.2-12.0); POSITIVE COUNT YES; POSITIVE DIFFERENTIAL YES; POSITIVE MORPHOLOGY YES; Platelet Count 637 K/mm3 (150-450); RBC Distribution Width CV 15.5 % (11.6-14.6); RBC Distribution Width SD 47.1 fl (35.1-43.9)
[2022-03-22 08:24] LABS: Differential Indicated MANUAL DIFF; White Blood Count 32.9 K/mm3 (4.4-11.0)
[2022-03-22 08:38] LABS: Anion Gap 8 (5-15); BUN 15 mg/dL (7-18); BUN/Creat Ratio 29.2 RATIO (10-20); Calcium,Total 8.7 mg/dL (8.5-10.1); Chloride 107 mmol/L (98-107); Creatinine, Serum 0.51 mg/dL (0.55-1.02); EST Glomerular Filtration Rate 138 mL/min (>60); Est Glom Filt Rate - Afr Amer 167 mL/min (>60); Estimated Creatinine Clearance 114.96 ml/min; Glucose 153 mg/dL (74-106); Potassium 3.1 mmol/L (3.5-5.1); Sodium Level 141 mmol/L (136-145); Troponin-I HS 11 pg/mL (3.0-54.0)
[2022-03-22 08:39] VITALS: BP 142/99; PULSE 85; RESP 20; TEMP 36.8; O2SAT 97
[2022-03-22 08:56] LABS: Neutrophil-Band 4 % (0-5); Neutrophil-Segmented 91 % (47-70); Total Cells Counted 100 (MANUAL DIFF)
[2022-03-22 08:58] LABS: Lymphocyte 1 % (19-41); Metamyelocyte 1 % (0-1); Myelocyte 3 % (0-0)
[2022-03-22 08:59] LABS: Platelet Estimate ADEQUATE (ADEQ); Red Cell Morphology NORM C+C NORMAL (NORM C&C)
[2022-03-22 09:02] LABS: Absolute Lymphocyte Count 0.33 X10^3/uL (0.83-4.51); Absolute Neutrophil Count 31.2 X10^3/uL (2.0-7.7)
[2022-03-22 09:09] VITALS: BP 146/89; PULSE 72; RESP 18; TEMP 36.8; O2SAT 94
[2022-03-22 09:54] LABS: BNP,B-Type NATRIURETIC PEPTIDE 175.3 pg/mL (0-100)
[2022-03-22 10:25] VITALS: BP 142/89; PULSE 74; RESP 16; TEMP 36.7; O2SAT 98
[2022-03-22 11:12] VITALS: BP 145/93; RESP 16; O2SAT 98
[2022-03-24 15:38] LABS: Pathologist Review Reviewed
== END 2022-03-22 11:12 | disposition home or self-care (01) ==
PROVIDERS: Emergency Provider Emergency Medicine; PCP Family Medicine; Visit Provider Emergency Medicine
DX: R06.00 Dyspnea, unspecified (principal); Z82.49 Family history of ischemic heart disease and other diseases of the circulatory system; Z85.3 Personal history of malignant neoplasm of breast; D72.829 Elevated white blood cell count, unspecified
CPT/HCPCS: 71275; 80048; 83880; 84484; 85025; 87428; 93005; 99284; Q9967

== ENCOUNTER 2022-03-26 22:18 | Emergency (ER) | payer OTHER, SELFPAY ==
[2022-03-26 22:19] VITALS: BP 109/82; PULSE 113; RESP 18; TEMP 36.1; BMI 24.1
--- NOTE | 2022-03-26 22:46 | EKG12_ITS ---
Test Reason : SYNCOPE Blood Pressure : / mmHG Vent. Rate : 111 BPM Atrial Rate : 111 BPM P-R Int : 136 ms QRS Dur : 072 ms QT Int : 324 ms P-R-T Axes : 076 061 251 degrees QTc Int : 440 ms Sinus tachycardia Possible Left atrial enlargement T wave abnormality, consider inferolateral ischemia Abnormal ECG Confirmed by ESVIN WASHINGTON, VICTORINO ([id number]), production editor CHRISTINA RATLIFF ([id number]) on 03/28/2022 1:07:54 PM Referred By: SID Confirmed By:VICTORINO MCALLISTER MD
--- NOTE | 2022-03-26 22:49 | EX.ED.DYSGE1 ---
HPI History of Present Illness Chief Complaint: Syncope Narrative Narrative: Patient has history of breast cancer, she is on chemotherapy, she arrives after a syncopal episode. Apparently she has had decreased p.o. intake in the past few days especially today. She felt lightheaded after which she passed out. She has no chest pain or shortness of breath. She has no back pain or tearing sensation. No pleuritic component. No lower extremity edema or calf pain. She was seen 3 days ago for shortness of breath which is now gone and had a negative work-up including a thromboembolic work-up with a negative CT angiogram. She did not hit her head she has no neck pain she has no vision changes no seizure-like activity. [facility] Medical History Acid reflux Alcohol use Anxiety Arthritis Arthrogryposis Braces as ambulation aid Breast cancer Breast cancer, left breast Cancer CINV (chemotherapy-induced nausea and vomiting) CPAP (continuous positive airway pressure) dependence Depression Diarrhea due to drug Elevated C-reactive protein (CRP) (12/26/21) Encounter for education Heartburn History of diverticulitis History of echocardiogram History of edema History of irregular heartbeat Hypokalemia Lung nodule, multiple Muscular dystrophy Non-smoker Port-A-Cath in place Wears glasses Home Medications cholecalciferol (vitamin D3) 25 mcg (1,000 unit) capsule 2,000 unit PO DAILY 01/25/22 [History Last Taken Unknown] duloxetine 20 mg capsule,delayed release 20 mg PO DAILY 01/25/22 [History Last Taken Unknown] fluticasone propionate 50 mcg/actuation nasal spray,suspension (Flonase Allergy Relief) 1 spray intranasal DAILY PRN allergy symptoms 01/25/22 [History Last Taken Unknown] lidocaine-prilocaine 2.5 %-2.5 % topical cream 1 applic topical ONCE PRN port access 30 days #30 grams 02/23/22 [Rx Last Taken Unknown] ondansetron 8 mg disintegrating tablet 8 mg PO Q8H PRN nausea and vomiting #30 tabs 02/23/22 [Rx Last Taken Unknown] prochlorperazine maleate 10 mg tablet 10 mg PO Q6H PRN nausea and vomiting #30 tabs 02/23/22 [Rx Last Taken Unknown] dexamethasone 4 mg tablet 8 mg PO .COMPLEX #12 tabs 02/24/22 [Rx Last Taken Unknown] Magnesium Malate 750 mg PO QHS 02/28/22 [History Last Taken Unknown] potassium chloride 20 mEq/15 mL oral liquid 20 meq (15 mL) PO TID #450 mL 03/14/22 [Rx Last Taken Unknown] Allergy/AdvReac Type Severity Reaction Status Date / Time kiwi Allergy Mild Anaphylaxis Verified 03/26/22 22:22 Penicillins Allergy Mild Anaphylaxis Verified 03/26/22 22:22 Family History Mother Diabetes Hypertension High cholesterol Thyroid disorder Uncle Cancer non-hodgkins lymphoma Grandfather Heart disease Grandmother Heart disease Brother Hypertension Unknown Breast cancer mother had 2 cousins with aggressive breast cancer Unknown Thyroid cancer maternal cousin Other Arthritis Depression Surgical History H/O release of tendon History of lymph node biopsy History of spinal fusion Social History household members: family current occupational status: employed 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 No palpitations. Syncope as in HPI Respiratory: No shortness of breath or cough Gastrointestinal: No abdominal pain, nausea vomiting or diarrhea Genitourinary: No dysuria Musculoskeletal: Denies myalgias or any new weakness. Skin: No rash Neurological: No memory loss, confusion or any focal weakness Psych: No recent behavioral changes Hematologic: No easy bleeding or easy bruising EXAM Physical Exam Narrative Exam Narrative: Physical exam General: Patient appears chronically ill she does not appear acutely ill. She appears relatively comfortable. Head: Normocephalic, Atraumatic Eyes: Conjunctiva not pale ENT: Dry mucous membranes Neck: Supple, Nontender, No lymphadenopathy Cardiovascular: Regular tachycardia no murmur Respiratory: No distress, CTA bilaterally Abdomen: Soft, Nontender, Nondistended Back: Nontender, Normal Inspection. Negative for: CVA tenderness Extremities: Some lower extremity atrophy, braces are intact, no signs of cellulitis Skin: Normal color, No rash Neurological: Alert, Normal Strength, Normal Sensation Psychological: Normal affect Const Vital Signs: 03/26/22 22:19 Temperature 97 F L Temperature Source Temporal Pulse Rate 113 H Respiratory Rate 18 Blood Pressure 109/82 H Blood Pressure Mean 91 Oxygen Delivery Method Room Air MDM MDM MDM Narrative Medical decision making narrative: Patient's work-up is unremarkable. Because she was quite tachycardic and had a syncopal episode and she is on chemo I did feel that the patient needed another CT angiogram. She improved, her heart rate significantly improved after IV fluids, she is still hypokalemic. We will fix this. Lab Data Labs: Laboratory Results - last 24 hr 03/26/22 03/26/22 23:02 23:02 WBC 4.3 L RBC 4.39 Hgb 12.7 Hct 36.6 L MCV 83.4 MCH 28.9 MCHC 34.7 RDW Std Deviation 43.6 RDW Coeff of Seema 14.4 Plt Count 175 MPV 11.0 Immature Gran % (Auto) 2.100 H Neut % (Auto) 66.0 Lymph % (Auto) 20.6 [place] % (Auto) 5.8 Eos % (Auto) 5.3 H Baso % (Auto) 0.2 Absolute Neuts (auto) 2.8 Absolute Lymphs (auto) 0.89 Nucleated RBC % 0 Differential Comment SCANNED Sodium 130 L Potassium 2.8 L Chloride 91 L Carbon Dioxide 29.0 Anion Gap 10 BUN 17 Creatinine 0.59 Estim Creat Clear Calc 91.61 Est GFR (MDRD) Af Amer 143 Est GFR (MDRD) Non-Af 118 BUN/Creatinine Ratio 28.8 H Glucose 162 H Calcium 9.3 Total Bilirubin 0.90 AST 21 ALT 41 Alkaline Phosphatase 146 H Troponin I High Sens 7 Total Protein 7.3 Albumin 3.8 Globulin 3.5 Albumin/Globulin Ratio 1.1 EKG Initial EKG: Comments: Sinus rhythm with a rate of 111. Normal MA interval. Normal QTc interval. Nonspecific T wave abnormalities laterally. Discharge Plan Triage Chief Complaint: Syncope ED Provider: Jace Ashton Dx/Rx/DC Orders Clinical Impression: Dehydration, Hypokalemia, Syncope Instructions: Causes of Syncope, Dehydration Prescriptions: No Action cholecalciferol (vitamin D3) 1,000 unit capsule 25 mcg (1,000 unit) capsule 2,000 unit PO DAILY duloxetine 20 mg capsule,delayed release(DR/EC) 20 mg PO DAILY fluticasone propionate [Flonase Allergy Relief] 50 mcg/actuation spray,suspension 1 spray intranasal DAILY PRN (Reason: allergy symptoms) Rx Instructions: administer into each nostril lidocaine-prilocaine 2.5-2.5 % cream 1 applic topical ONCE PRN (Reason: port access) 30 Days Qty: 30 2RF ondansetron 8 mg tablet,disintegrating 8 mg PO Q8H PRN (Reason: nausea and vomiting) Qty: 30 2RF prochlorperazine maleate 10 mg tablet 10 mg PO Q6H PRN (Reason: nausea and vomiting) Qty: 30 2RF dexamethasone 4 mg tablet 8 mg PO .COMPLEX Qty: 12 5RF Rx Instructions: 8 mg orally; twice daily ONLY the day before, day of and the day after chemotherapy potassium chloride 20 mEq/15 mL liquid 20 meq PO TID Qty: 450 0RF Magnesium Malate 750 mg PO QHS Primary Care Provider: Jam Verde Referrals: Jam Verde MD [Primary Care Provider] - 3-5 Days Disposition Disposition: Home, Self Care
--- NOTE | 2022-03-26 22:57 | CT_ITS ---
EXAM: CT pulmonary angiogram. HISTORY: Possible pulmonary embolus. History of breast cancer. TECHNIQUE: CTA Chest WO/W Contrast Injection A radiation dose optimization technique was used for this scan. Multiplanar reconstructions were obtained. 3-D postprocessing was performed. COMPARISON: CT pulmonary angiogram from March 22, 2022. LIMITATIONS: Streak artifact from the spinal hardware. LUNGS: Mild linear atelectasis in the lower lungs bilaterally. No confluent airspace disease. Interlobular septal thickening and multiple nodules in the lower lungs bilaterally present on the prior exam has resolved. PULMONARY VESSELS: Streak artifact within segmental and subsegmental right lower lobe pulmonary arteries. No pulmonary emboli identified. PLEURA: Normal. MEDIASTINUM: Normal. HEART: Normal. AORTA: No thoracic aortic aneurysm or dissection. UPPER ABDOMEN: No significant abnormality. BONES/SOFT TISSUES: Marked scoliosis with hardware in the thoracolumbar spine. No acute fracture. OTHER: None. CONCLUSION: Streak artifact. No pulmonary emboli identified. Clear lungs. The interstitial changes and multiple nodules present on the prior exam have resolved. Small right pleural effusion present on the prior study has resolved. Electronically Signed: Ej Ravi MD at 1:00 EDT , CT/CTA Chest W/WO Contrast IMPRESSION: undefined
[2022-03-26 23:14] LABS: Absolute Lymphocyte Count 0.89 X10^3/uL (0.83-4.51); Absolute Neutrophil Count 2.8 X10^3/uL (2.0-7.7); Basophil# 0.01 X10^3/uL; Basophil% 0.2 % (0-1); Eosinophil# 0.23 X10^3/uL; Eosinophils% 5.3 % (0-5); Hematocrit 36.6 % (37-47); Hemoglobin 12.7 g/dL (12.0-15.0); Lymphocyte # 0.89 X10^3/ul (0.83-4.51); Lymphocyte % 20.6 % (19-41); Mean Corp Hgb Conc 34.7 g/dL (32-36); Mean Corpuscular Hgb 28.9 pg (27.0-32.0); Mean Corpuscular Volume 83.4 fL (81-99); Monocyte# 0.25 X10^3/uL; Monocyte% 5.8 % (0-10); NRBC Flagged by Analyzer 0 % (0-5); Neutrophil # 2.84 X10^3/uL (2.7-7.7); POSITIVE MORPHOLOGY YES; Platelet Count 175 K/mm3 (150-450); RBC Distribution Width CV 14.4 % (11.6-14.6); RBC Distribution Width SD 43.6 fl (35.1-43.9); Red Blood Count 4.39 M/mm3 (4.2-5.4); White Blood Count 4.3 K/mm3 (4.4-11.0)
[2022-03-26] MEDS: 0.9% Normal Saline 1,000 ML 999 ML IV (23:14)
[2022-03-26 23:18] LABS: Differential Indicated SCAN CRITERIA MET
[2022-03-26 23:33] LABS: ALB/GLOB Ratio 1.1 RATIO (0.9-2.4); AST(SGOT) 21 U/L (15-37); Alanine Aminotransfer ALT/SGPT 41 U/L (13-56); Albumin, Serum 3.8 g/dL (3.2-5.0); Alkaline Phosphatase 146 U/L (45-117); Anion Gap 10 (5-15); BUN 17 mg/dL (7-18); BUN/Creat Ratio 28.8 RATIO (10-20); Calcium,Total 9.3 mg/dL (8.5-10.1); Chloride 91 mmol/L (98-107); Creatinine, Serum 0.59 mg/dL (0.55-1.02); EST Glomerular Filtration Rate 118 mL/min (>60); Est Glom Filt Rate - Afr Amer 143 mL/min (>60); Estimated Creatinine Clearance 91.61 ml/min; Globulin 3.5 g/dL (2.2-4.2); Glucose 162 mg/dL (74-106); Potassium 2.8 mmol/L (3.5-5.1); Protein, Total 7.3 g/dL (6.4-8.2); Sodium Level 130 mmol/L (136-145); Troponin-I HS 7 pg/mL (3.0-54.0)
[2022-03-26 23:44] LABS: Differential Comment SCANNED
[2022-03-27] VITALS (7 sets, daily range): BP systolic 96–110; BP diastolic 47–71; PULSE 73–113; RESP 15–17; O2SAT 73–99
[2022-03-27 00:39] LABS: BNP,B-Type NATRIURETIC PEPTIDE 6.8 pg/mL (0-100)
[2022-03-27] MEDS: 0.9% Normal Saline 1,000 ML 999 ML IV (01:21)
[2022-03-27] MEDS: Potassium Chloride 10mEq/100mL 10 MEQ/100 ML IV.SOLN. 100 MEQ IV BOLUS ×4 (01:21→04:41)
== END 2022-03-27 05:50 | disposition home or self-care (01) ==
PROVIDERS: Emergency Provider Emergency Medicine; PCP Family Medicine; Visit Provider Emergency Medicine
DX: R55 Syncope and collapse (principal); E87.6 Hypokalemia; E86.0 Dehydration; Z92.21 Personal history of antineoplastic chemotherapy
CPT/HCPCS: 71275; 80053; 83880; 84484; 85025; 93005; 99285; J7030; Q9967; A4216

== ENCOUNTER 2022-04-24 09:30 | Outpatient (RCR) | payer OTHER, SELFPAY ==
[2022-04-05 10:47] VITALS: BP 123/79; PULSE 125; RESP 18; TEMP 36.1; BMI 23.2
--- NOTE | 2022-04-05 11:31 | PCM.WC.HP ---
History of Present Illness Date of Service: 04/05/22 Chief Complaint: Right medial lower leg spider bite History of Wound: 41 year old female presents for evaluation of spider bite to her right medial leg. She states she was sleeping at her father's house and there was a spider in the bedroom where she was sleeping. It occurred several days ago. She also has been out in the [place] with her dog, but denies being bit by any ticks. She was seen in oncology on recently for follow up for her left breast invasive ductal carcinoma which she was diagnosed in 01/16. She has received two rounds of chemotherapy. This spider bite was observed during that visit and the patient was referred to the wound center. Patient has been receiving potassium infusions. She also has a history of MD, which she wears braces on her legs. The area of the wound is under where the brace meets her skin. Patient denies fever, chills, nausea or vomiting. Progress of Wound: Right medial leg wound that is firm and raised. The skin sloughed off the center of the wound. She has a red bulls-eye rash surrounding the wound. It is mildly warm to touch. [facility] Medical History (Updated 04/07/22 @ 13:15 by Kathrin Calzada AQUACULTURAL WORKER SUPERVISOR, AQUACULTURAL WORKER SUPERVISOR-C) Acid reflux Alcohol use Anxiety Arthritis Arthrogryposis Braces as ambulation aid Breast cancer Breast cancer, left breast Cancer CINV (chemotherapy-induced nausea and vomiting) CPAP (continuous positive airway pressure) dependence Depression Diarrhea due to drug Elevated C-reactive protein (CRP) (12/26/21) Encounter for education Heartburn History of diverticulitis History of echocardiogram History of edema History of irregular heartbeat Hypokalemia Hypomagnesemia Leg sore Lung nodule, multiple Mucositis (ulcerative) due to antineoplastic therapy Muscular dystrophy Non-smoker Oral candidiasis Port-A-Cath in place Wears glasses Home Medications cholecalciferol (vitamin D3) 25 mcg (1,000 unit) capsule 2,000 unit PO DAILY 01/25/22 [History Last Taken Unknown] duloxetine 20 mg capsule,delayed release 20 mg PO DAILY 01/25/22 [History Last Taken Unknown] fluticasone propionate 50 mcg/actuation nasal spray,suspension (Flonase Allergy Relief) 1 spray intranasal DAILY PRN allergy symptoms 01/25/22 [History Last Taken Unknown] lidocaine-prilocaine 2.5 %-2.5 % topical cream 1 applic topical ONCE PRN port access 30 days #30 grams 02/23/22 [Rx Last Taken Unknown] ondansetron 8 mg disintegrating tablet 8 mg PO Q8H PRN nausea and vomiting #30 tabs 02/23/22 [Rx Last Taken Unknown] prochlorperazine maleate 10 mg tablet 10 mg PO Q6H PRN nausea and vomiting #30 tabs 02/23/22 [Rx Last Taken Unknown] dexamethasone 4 mg tablet 8 mg PO .COMPLEX #12 tabs 02/24/22 [Rx Last Taken Unknown] Magnesium Malate 750 mg PO QHS 02/28/22 [History Last Taken Unknown] MAGIC MOUTH WASH (BMX) 180 mL suspension 15 ml PO .Q6HR #180 mL 03/28/22 [Rx Last Taken Unknown] nystatin 100,000 unit/mL oral suspension 5 ml PO Q6H #473 mL 03/28/22 [Rx Last Taken Unknown] potassium chloride 20 mEq/15 mL oral liquid 20 meq (15 mL) PO TID #450 mL 04/03/22 [Rx Last Taken Unknown] doxycycline monohydrate 100 mg tablet 100 mg PO BID 14 days #28 tabs 04/05/22 [Rx Last Taken Unknown] Allergy/AdvReac Type Severity Reaction Status Date / Time kiwi Allergy Mild Anaphylaxis Verified 04/06/22 08:24 Penicillins Allergy Mild Anaphylaxis Verified 04/06/22 08:24 Family History (Reviewed 04/07/22 @ 12:52 by Kathrin Calzada AQUACULTURAL WORKER SUPERVISOR, AQUACULTURAL WORKER SUPERVISOR-C) Mother Diabetes Hypertension High cholesterol Thyroid disorder Uncle Cancer non-hodgkins lymphoma Grandfather Heart disease Grandmother Heart disease Brother Hypertension Unknown Breast cancer mother had 2 cousins with aggressive breast cancer Unknown Thyroid cancer maternal cousin Other Arthritis Depression Surgical History (Reviewed 04/07/22 @ 12:52 by Kathrin Calzada AQUACULTURAL WORKER SUPERVISOR, AQUACULTURAL WORKER SUPERVISOR-C) H/O release of tendon History of lymph node biopsy History of spinal fusion Social History household members: family current occupational status: employed 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 [employer] Smoking Status: Never smoker alcohol intake: current alcohol intake frequency: holidays/special occasions only details: occasional substance use type: does not use ROS Constitutional Constitutional: Reports systems reviewed and no addt'l complaints, except as documented and fatigue; Denies fever(s) or headache(s) Eyes Eyes: Reports requires corrective lenses ENT HEENT: Reports mouth lesions Cardiovascular Cardiovascular: Reports none Respiratory/Chest Respiratory/Chest: Reports none Gastrointestinal Gastrointestinal: Reports loose stools Genitourinary Genitourinary: Reports none Musculoskeletal Musculoskeletal: Reports systems reviewed and no addt'l complaints, except as documented Integumentary Integumentary: Reports systems reviewed and no addt'l complaints, except as documented Neurologic Neurologic: Reports systems reviewed and no addt'l complaints, except as documented Psychiatric Psychiatric: Reports as per HPI Endocrine Endocrinology: Reports as per HPI Hematologic/Lymphatic Hematologic/Lymphatic: Reports as per HPI Allergic/Immunologic Allergic/Immunologic: Reports as per HPI Vital Signs Vital Signs Vital Signs: 04/05/22 10:47 Temperature 97 F L Temperature Source Oral Pulse Rate 125 H Respiratory Rate 18 Blood Pressure 123/79 H Blood Pressure Mean 93 Blood Pressure Source Monitor Blood Pressure Position Semi-Fowlers Blood Pressure Location Left Arm Weight Weight: 100 lb Body Mass Index (BMI) 23.2 Physical Exam Const alert, oriented x3 and no apparent distress General Appearance: cooperative Orientation / Consciousness: awake HEENT normocephalic Mouth: lesions Eyes General Eye: normal appearance of both eyes Neck full ROM Lymph Lymphatic: no lymphedema noted Resp normal respiratory effort, normal air movement and no retractions Effort and Inspection: able to speak in complete sentences Cardio regular rate and regular rhythm Back/Spine normal ROM Extremity normal capillary refill Extremity Narrative: Walks with support braces. Skin Wound Narrative: Right medial leg wound that is firm and swollen, erythematous, slightly warmer than the surrounding skin. The center erythema is surrounded with a thin white capitan grande band, then that is surrounded with a pink area of erythema. It looks like a bulls-eye. Hair: other currently does not have hair due to receiving chemotherapy. Neuro oriented x3, CN's II-XII intact bilaterally and moves all extremities Psych mental status grossly normal, thought process normal, cooperative and affect normal Debridement Note Debridement Note Wound debrided: medial leg wound Laterality: Right Wound Grade/Stage: Stage II Type of Debridement: Selective debridement Anesthesia Used: 5% Lidocaine Gel Depth: Down to and including healthy tissue and in the subcutaneous layer Percentage of wound debrided: 100 Instrument Used: - (moistened gauze to unroof ) Tissue Removed: Non viable tissue Severity: Fat Layer Exposed Amount of bleeding with debridement: None Bleeding Controlled with: Pressure Patient tolerated procedure: Patient tolerated procedure well Post-Debridement Measurements and Additional Note: Post-Debridement Measurements/Treatment - Nurse 1 - General Ulcer Assessment Start: 04/05/22 10:15 Freq: Status: Active Protocol: LOWEXTawana Activity Type Activity Date Activity User E-sign Co-sign Detail Recorded Client Recorded Date Recorded By Document 04/05/22 10:47 RB [id number] 04/05/22 10:55 RB 04/05/22 10:47 WC - Today's Visit Information Type of service Initial Visit Arrival Mode Ambulatory Transfer Assistance None Patient Identification Verified (Name & Yes ) Patient Requires Transmission-Based No Precautions Height and Weight Height 4 ft 7 in Weight 100 lb Weight in Pounds 100.0 lbs Body Mass Index (BMI) 23.2 BMI Classification Normal BSA - Eileen 1.31 Vital Signs Temperature (97.8 F-99.1 F) 97 F L Temperature Source Oral Pulse Rate (60-100) 125 H Pulse Location Monitor Respiratory Rate (12-18) 18 Respiratory rate source Observation Blood Pressure (90/60-120/80) 123/79 H Blood Pressure Mean (mm Hg) 93 Source Monitor Position Semi-Fowlers Blood Pressure Location Left Arm History Since Last Visit- (Skip if this is Patient's initial visit) Have you changed medications since your No last visit? Any new allergies or adverse reactions No Had a fall/change in ADL's that may No increase risk of falls Signs or symptoms of abuse and/or No neglect since last visit Have you been in the hospital since your No last visit? Has dressing in place as prescribed Yes Has compression in place as prescribed No Has offloadiing in place as prescribed No Experienced any changes in pain level or No management Pain Scale: 0-10 Numeric Is Patient Pain Free? Yes Lower Extremity Assessment/ Foot Assessment/ Toe Nail Assessment Right -Posterior Tibial Palpable Yes -Dorsalis Pedis Palpable Yes -Extremity Color Normal -Hair Growth on Legs Yes -Hair Growth on Toes No -Temperature of Extremity Warm -Capillary Refill Less than 3 Seconds -Dependent Rubor No -Blanched when Elevated No -Lipodermatosclerosis No -Other Deformity No -Prior Foot Ulcer No -Charcot Joint No -Prior Amputation No -Thick No -Discolored No -Deformed No -Improper Length & Hygeine Yes Neuropathy Assessment Feet - Top Side and Bottom <Entered> (a) Communication Assessment Preferred language Arabic Wire Stripping Machine Operator Required No Able to Read Yes Able to Write Yes Caregiver Communication Skills No Impairment Impairment Right Hearing Abillity Normal Left Hearing Abillity Normal Visual Assistive Devices Glasses Teaching Assessment Preferences Verbal,Written Barriers to Learning None Readiness To Learn Good Willingness to Engage in Self Management Med Activies Readiness to Engage in Self Management Med Activities Anxiety Level Calm Cooperation Cooperative Perception Coherent Interest in Health Problem Asks Questions Education Importance Acknowledges Need Does Patient Smoke tobacco or other No substances Smoking Status Never smoker Is Patient Diabetic Yes Functional Assessment Recent Decline in Ability to Perform Ambulation Assistive Device With Patient leg braces Culture/Muslim/Vegetable Ii Farmworker Cultural/Muslim Needs that may affect No Treatment Plan Would you allow our [facility] central office inspector to No meet you for the purpose of spiritual/ emotional support? Vegetable Ii Farmworker to contact place of restorationism No Teaching: Wound Center *Welcome to the Wound Center -Person Taught Patient -Teaching Method Discussion -Response to teaching Verbalize understanding (a) 1 - + throughout WC - Nurse 1 - General Ulcer Measurement Start: 04/05/22 10:15 Freq: Status: Active Protocol: Activity Type Activity Date Activity User E-sign Co-sign Detail Recorded Client Recorded Date Recorded By Document 04/05/22 10:47 BLAKE [id number] 04/05/22 10:55 RB 04/05/22 10:47 Wound Center Nurse 1 1. RLE -Combined with other wound No -Current Size (cm) - Length 0.1 -Current Size (cm) - Width 0.1 -Current Size (cm) - Depth 0.1 -Total Square Cm 0.01 -Photo Taken Yes -Tunneling No -Undermining/Tunneling No -Circular Undermining No -Exudate Amt None Present -Wound Margin Distinct, Outline Attached -Granulation Amt Medium (34-66%) -Granulation Quality [place] -Necrosis Amt Medium (34-66%) -Necrotic Tissue Type Adherent Slough -Structure Exposed N/A -Texture (Brianna-wound Skin Appearance) Assessed -Moisture (Brianna-wound Skin Appearance) Assessed -Color (Brianna-wound Skin Appearance) Erythema -Temperature (Brainna-wound Skin No Abnormality Appearance) (Pt Warm) -Tenderness on Palpation (Brianna-wound No Skin Appearance) -Ulcer Cleansing Wound Cleanser -Foul Odor after Cleansing No -Anesthetic Used 4% Lidocaine Solution Lower Limb Edema Present Yes Right Calf (cm) 27.5 Right Ankle (cm) 19.5 WC - Nurse 2 - General Ulcer CM Notes Start: 04/05/22 10:15 Freq: Status: Active Protocol: Activity Type Activity Date Activity User E-sign Co-sign Detail Recorded Client Recorded Date Recorded By Document 04/05/22 11:11 MW [id number] 04/05/22 11:21 MW 04/05/22 11:11 Wound Center Nurse 2 1. RLE -Time 11:12 -Correct Patient Yes -Correct Side, Site, Position Yes -Correct Procedure Yes -Procedure Performed Yes -Type of Procedure Debridement -Clinical Debridement Epidermis / Dermis -Tissue Removed Epidermis -Post Debridement (cm) - Length 1.0 -Post Debridement (cm) - Width 1.0 -Post Debridement (cm) - Depth 0.2 -Total Square (Post) (cm) 1.00 -Area of Debridement (cm) - Length 1.0 -Area of Debridement (cm) - Width 1.0 -Total Square (Area) (cm) 1.00 -Tunneling Yes -Undermining/Tunneling Yes -Circular Undermining Yes -Wound/Ulcer Outcome Not Healed -Ulcer Cleansing Wound Cleanser -Foul Odor after Cleansing No -Bioengineered Tissue No -Bleeding Controlled with Pressure -Treatment Response Procedure Tolerated Well -Offloading No -Debridement - Open, 1st 20sq cm Yes Pain Scale: 0-10 Numeric Is Patient Pain Free? Yes Charges/Coding Visit Charges Office Visits / Consults: 74178 OV L3 Est (25 modifier) Wound Center CF Procedures [id number]: [id number] RMVL DEVITAL TIS 20 CM/< Multi Select Codes Wound Center CF Procedures [id number]: [id number] RMVL DEVITAL TIS 20 CM/< Assessment/Plan Assessment/Plan (1) Unspecified open wound, right lower leg, initial encounter: CODE(S): S81.801A - Unspecified open wound, right lower leg, initial encounter (2) Breast cancer, left breast: CODE(S): C50.912 - Malignant neoplasm of unspecified site of left female breast (3) Hypokalemia: CODE(S): E87.6 - Hypokalemia (4) Braces as ambulation aid: CODE(S): Z97.8 - Presence of other specified devices PLAN: Plan Patient evaluated today at the wound center. Wound care - Antibiotic ointment then cover with gauze daily. May wash with soap and water daily at the time of the dressing change. Wound culture obtained today, depending on the results of the culture, it may necessitate the need to change her antibiotics. Will start her on Doxycycline twice daily due to her having been in the [place] and her suppressed immune system. Instructed her how to take the antibiotic. Encouraged her to increase her protein intake. She is experiencing mouth sore right now from her chemo and is having difficulty eating. Follow up one week. Call or come in sooner if develop any concerns.
[2022-04-10 10:42] VITALS: BP 121/77; PULSE 112; RESP 18; TEMP 36.5; BMI 23.2
--- NOTE | 2022-04-10 12:01 | PCM.WC.PN ---
History of Present Illness Date of Service: 04/10/22 Chief Complaint: Right medial lower leg spider bite History of Wound: 41 year old female presents for evaluation of spider bite to her right medial leg. She states she was sleeping at her father's house and there was a spider in the bedroom where she was sleeping. It occurred several days ago. She also has been out in the [place] with her dog, but denies being bit by any ticks. She was seen in oncology on recently for follow up for her left breast invasive ductal carcinoma which she was diagnosed in 01/16. She has received two rounds of chemotherapy. This spider bite was observed during that visit and the patient was referred to the wound center. Patient has been receiving potassium infusions. She also has a history of MD, which she wears braces on her legs. The area of the wound is under where the brace meets her skin. Patient denies fever, chills, nausea or vomiting. Progress of Wound: Right medial leg wound is much larger and ulcerated this week. She continues to have redness surrounding the ulcer that is slightly warmer to touch. Ulcer is very painful. Wound cultures from last week were negative for bacterial growth. Objective Data Objective Data Vital Signs: Vital Signs Temp Pulse Resp BP 97.7 F L 112 H 18 121/77 H 04/10/22 10:42 04/10/22 10:42 04/10/22 10:42 04/10/22 10:42 Weight: 100 lb Body Mass Index (BMI) 23.2 Lab / Micro Data Micro: Microbiology 04/05/22 11:15 Wound Abcess - Leg, Right Gram Stain - Final 04/05/22 11:15 Wound Abcess - Leg, Right Wound Culture - Final No growth aerobically. 04/05/22 11:15 Wound Abcess - Leg, Right Anaerobic Culture - Final No growth in 5 days. Charges/Coding Procedures Integumentary 111xxx-113xx: 20622 Archana subq tissue 20 sq cm/< Physical Exam Const alert, oriented x3 and no apparent distress General Appearance: cooperative Orientation / Consciousness: awake HEENT normocephalic Mouth: lesions Eyes General Eye: normal appearance of both eyes Neck full ROM Lymph Lymphatic: no lymphedema noted Resp normal respiratory effort Effort and Inspection: able to speak in complete sentences Cardio regular rate Back/Spine normal ROM Extremity normal capillary refill Extremity Narrative: Walks with support braces. Skin Wound Narrative: Right medial leg wound is much larger this week. The wound bed is pink, the periwound has sloughing tissue present. It is very painful to palpation. She continues to have erythema surrounding the ulcer but is not warm to touch. Hair: other currently does not have hair due to receiving chemotherapy. Neuro oriented x3, CN's II-XII intact bilaterally and moves all extremities Psych mental status grossly normal, thought process normal and affect normal Debridement Note Debridement Note Wound debrided: medial leg wound Laterality: Right Wound Grade/Stage: Stage II Type of Debridement: Excisional debridement Anesthesia Used: 5% Lidocaine Gel Depth: Down to and including healthy tissue and in the subcutaneous layer Percentage of wound debrided: 100 Instrument Used: 7mm curette Tissue Removed: Non viable tissue Severity: Fat Layer Exposed Amount of bleeding with debridement: None Bleeding Controlled with: Pressure and Compression and gauze Patient tolerated procedure: Patient tolerated procedure well Post-Debridement Measurements and Additional Note: Post-Debridement Measurements/Treatment - Nurse 1 - General Ulcer Assessment Start: 04/05/22 10:15 Freq: Status: Active Protocol: GWEN Activity Type Activity Date Activity User E-sign Co-sign Detail Recorded Client Recorded Date Recorded By Document 04/05/22 10:47 RB [id number] 04/05/22 10:55 RB Document 04/10/22 10:42 DL [id number] 04/10/22 10:50 DL 04/05/22 04/10/22 10:47 10:42 - Today's Visit Information Type of service Initial Visit Follow-up Visit (Physician/PACKAGING ASSEMBLER ) Arrival Mode Ambulatory Wheelchair Transfer Assistance None Manual,None Transfer Assist (Other) x1 Patient Identification Verified (Name & Yes Yes ) Patient Requires Transmission-Based No Precautions Height and Weight Height 4 ft 7 in Weight 100 lb Weight in Pounds 100.0 lbs Body Mass Index (BMI) 23.2 23.2 BMI Classification Normal Normal BSA - Eileen 1.31 Vital Signs Temperature (97.8 F-99.1 F) 97 F L 97.7 F L Temperature Source Oral Temporal Pulse Rate (60-100) 125 H 112 H Pulse Location Monitor Monitor Respiratory Rate (12-18) 18 18 Respiratory rate source Observation Observation Blood Pressure (90/60-120/80) 123/79 H 121/77 H Blood Pressure Mean (mm Hg) 93 91 Source Monitor Monitor Position Semi-Fowlers Blood Pressure Location Left Arm History Since Last Visit- (Skip if this is Patient's initial visit) Have you changed medications since your No No last visit? Any new allergies or adverse reactions No No Had a fall/change in ADL's that may No No increase risk of falls Signs or symptoms of abuse and/or No No neglect since last visit Have you been in the hospital since your No No last visit? Has dressing in place as prescribed Yes Yes Has compression in place as prescribed No Has offloadiing in place as prescribed No N/A Experienced any changes in pain level or No No management Pain Scale: 0-10 Numeric Is Patient Pain Free? Yes Yes Lower Extremity Assessment/ Foot Assessment/ Toe Nail Assessment Right -Posterior Tibial Palpable Yes -Dorsalis Pedis Palpable Yes -Extremity Color Normal -Hair Growth on Legs Yes -Hair Growth on Toes No -Temperature of Extremity Warm -Capillary Refill Less than 3 Seconds -Dependent Rubor No -Blanched when Elevated No -Lipodermatosclerosis No -Other Deformity No -Prior Foot Ulcer No -Charcot Joint No -Prior Amputation No -Thick No -Discolored No -Deformed No -Improper Length & Hygeine Yes Neuropathy Assessment Feet - Top Side and Bottom <Entered> (a) Communication Assessment Preferred language Bel[place]ian User Experience Developer Required No Able to Read Yes Able to Write Yes Caregiver Communication Skills No Impairment Impairment Right Hearing Abillity Normal Left Hearing Abillity Normal Visual Assistive Devices Glasses Teaching Assessment Preferences Verbal,Written Barriers to Learning None Readiness To Learn Good Willingness to Engage in Self Management Med Activies Readiness to Engage in Self Management Med Activities Anxiety Level Calm Cooperation Cooperative Perception Coherent Interest in Health Problem Asks Questions Education Importance Acknowledges Need Does Patient Smoke tobacco or other No substances Smoking Status Never smoker Is Patient Diabetic Yes Functional Assessment Recent Decline in Ability to Perform Ambulation Assistive Device With Patient leg braces Culture/Buddhism/Corporate Claims Examiner Cultural/Buddhism Needs that may affect No Treatment Plan Would you allow our hospital customer relations representative to No meet you for the purpose of spiritual/ emotional support? Corporate Claims Examiner to contact place of [facility] No Teaching: Wound Center *Welcome to the Wound Center -Person Taught Patient -Teaching Method Discussion -Response to teaching Verbalize understanding (a) 1 - + throughout WC - Nurse 1 - General Ulcer Measurement Start: 04/05/22 10:15 Freq: Status: Active Protocol: Activity Type Activity Date Activity User E-sign Co-sign Detail Recorded Client Recorded Date Recorded By Document 04/05/22 10:47 RB [id number] 04/05/22 10:55 RB Document 04/10/22 10:42 DL [id number] 04/10/22 10:50 DL 04/05/22 04/10/22 10:47 10:42 Wound Center Nurse 1 1. RLE -Combined with other wound No -Current Size (cm) - Length 0.1 5 -Current Size (cm) - Width 0.1 5.7 -Current Size (cm) - Depth 0.1 0.1 -Total Square Cm 0.01 28.5 -Photo Taken Yes Yes -Tunneling No -Undermining/Tunneling No -Circular Undermining No -Exudate Amt None Present Medium -Exudate Type Serosanguineous -Wound Margin Distinct, Distinct, Outline Outline Attached Attached -Granulation Amt Medium (34-66%) Small (1-33%) -Granulation Quality [place] Red -Necrosis Amt Medium (34-66%) Large (67-100%) -Necrotic Tissue Type Adherent Slough Adherent Slough -Structure Exposed N/A N/A -Texture (Brianna-wound Skin Appearance) Assessed Localized Edema ,Scarring -Moisture (Brianna-wound Skin Appearance) Assessed No Abnormality -Color (Brianna-wound Skin Appearance) Erythema Erythema -Temperature (Brianna-wound Skin No Abnormality No Abnormality Appearance) (Pt Warm) (Pt Warm) -Tenderness on Palpation (Brianna-wound No Yes Skin Appearance) -Ulcer Cleansing Wound Cleanser Rinsed/ Irrigated with Saline -Foul Odor after Cleansing No No -Anesthetic Used 4% Lidocaine 5% Lidocaine Solution Gel Lower Limb Edema Present Yes Right Calf (cm) 27.5 26 Right Ankle (cm) 19.5 18 - Nurse 2 - General Ulcer CM Notes Start: 04/05/22 10:15 Freq: Status: Active Protocol: Activity Type Activity Date Activity User E-sign Co-sign Detail Recorded Client Recorded Date Recorded By Document 04/05/22 11:11 MW [id number] 04/05/22 11:21 MW Document 04/10/22 11:08 [id number] 04/10/22 11:18 04/05/22 04/10/22 11:11 11:08 Wound Center Nurse 2 1. RLE -Time 11:12 11:09 -Correct Patient Yes Yes -Correct Side, Site, Position Yes Yes -Correct Procedure Yes Yes -Procedure Performed Yes Yes -Type of Procedure Debridement Debridement -Clinical Debridement Epidermis / Subcutaneous Dermis -Tissue Removed Epidermis Subcutaneous -Post Debridement (cm) - Length 1.0 6.2 -Post Debridement (cm) - Width 1.0 6.8 -Post Debridement (cm) - Depth 0.2 0.2 -Total Square (Post) (cm) 1.00 42.16 -Area of Debridement (cm) - Length 1.0 6.2 -Area of Debridement (cm) - Width 1.0 6.8 -Total Square (Area) (cm) 1.00 42.16 -Tunneling Yes No -Undermining/Tunneling Yes No -Circular Undermining Yes No -Wound/Ulcer Outcome Not Healed Not Healed -Ulcer Cleansing Wound Cleanser Rinsed/ Irrigated with Saline -Foul Odor after Cleansing No No -Bioengineered Tissue No No -Bleeding Controlled with Pressure Pressure -Treatment Response Procedure Procedure Tolerated Well Tolerated Well -Offloading No No -Debridement - Open, 1st 20sq cm Yes -Debridement - Subq, 1st 20sq cm Yes -Debridement, SubQ, ea addt'l 20sq cm 2 or part thereof Pain Scale: 0-10 Numeric Is Patient Pain Free? Yes Yes WC - Nurse 3 - General Ulcer D/C NN Start: 04/05/22 10:15 Freq: Status: Active Protocol: Activity Type Activity Date Activity User E-sign Co-sign Detail Recorded Client Recorded Date Recorded By Document 04/05/22 11:32 RB [id number] 04/05/22 11:33 RB Document 04/10/22 11:42 AK [id number] 04/10/22 11:44 AK 04/05/22 04/10/22 11:32 11:42 Wound Care Nurse 3 1. RLE -Ulcer Cleansing Rinsed/ Rinsed/ Irrigated with Irrigated with Saline Saline -Foul Odor after Cleansing No -Negative Pressure Wound Therapy N/A -Primary Dressing Applied Promogran Hysept ($) Lilibeth Matter -Other Dressing ABD -Primary Dressing Covered/Secured with Dry Gauze,Dry Dry Gauze & Gauze & Roll Roll Gauze, Gauze,Secured Secured with with Tape Tape -Promogran Lilibeth Matter 1 Right -Tubular Bandage Single Layer Single Layer -Size of Tubigrip Used Size C Size C -Size C ($) 1 1 Treatment Response Procedure Tolerated Well Pain Scale: 0-10 Numeric Is Patient Pain Free? Yes No WC - Visit Discharge Discharge Condition Stable Stable Ambulatory Status Ambulatory Wheelchair Transportation Private Auto Private Auto Accompanied by parents Medication Reconcilliation completed & Yes Yes provided to patient/care provider Clinical Summary of Care Provided Yes Assessment/Plan Assessment/Plan (1) Unspecified open wound, right lower leg, initial encounter: CODE(S): S81.801A - Unspecified open wound, right lower leg, initial encounter (2) Breast cancer, left breast: CODE(S): C50.912 - Malignant neoplasm of unspecified site of left female breast (3) Hypokalemia: CODE(S): E87.6 - Hypokalemia (4) Braces as ambulation aid: CODE(S): Z97.8 - Presence of other specified devices PLAN: Plan Patient evaluated today at the wound center. Wound care - Dakins 0.25% moistened gauze covered with ABD daily. Tubigrip for compression. Wound culture from 04/05/22 showed no bacterial growth. Continue Doxycycline twice daily due to her suppressed immune status and the significant change in the wound this week. There was a significant increase in her wound this week. Unsure if this is because of her suppressed immune system. Encouraged her to increase her protein intake. Follow up one week. Call or come in sooner if develop any concerns. 04/11/22 1100 - After speaking to both Dr. Jorge and Dr. Esquivel about this patient and the change in her wound, it is recommended that we obtain a biopsy of this wound. I also spoke with Chelsea Hernandez NP in oncology also and she states they have held Bere's chemo this week due to the change in her wound and because her albumin level was so low. She is starting her on Adrian. She also states that the sooner this wound is biopsied, the sooner they can continue her chemotherapy. Bere will be scheduled tomorrow, 04/12/22 for a punch biopsy.
[2022-04-12 13:03] VITALS: BP 131/73; PULSE 115; RESP 16; TEMP 35.8; BMI 23.2
--- NOTE | 2022-04-12 13:30 | LES_PTH ---
PATIENT: AMINA ESPOSITO LOC: U#:[id number] AGE/SX: 41/F ROOM: RE04/24/[address]: NGOZI Aguilar : 1980 BED: DIS: 04/26/2022 SPEC #: [id number] RECD: 04/12/22 14:10 STATUS: DANYELLE LAVELL #: [id number] ABBY: 04/12/22 13:[address]: Kathrin Calzada NP DEPT: SURGICAL PATHOLOGY RECD BY: Leonela Shaikh ENTERED: 04/13/22 08:00 SP TYPE: Lesion OTHR DR: Dr. Jam Verde MD Tissues: A - Skin of leg, NOS B - Skin of leg, NOS Procedures: Special Stain Group I Surgery Specimen Level IV AFB Stain (control) GMS Stain (control) HEADER OPERATION: Tissue excision from right superior leg ulcer, right inferior leg ulcer PRE-OP DIAGNOSIS: Non healing ulcer, right lower leg POST-OP DIAGNOSIS: Rule out pyroderma gangrenosum and malignancy TISSUE SUBMITTED: A. Tissue biopsy, right superior leg ulcer, B. Tissue biopsy, right inferior leg ulcer MICROSCOPIC DIAGNOSIS A. Tissue biopsy, right superior leg ulcer: Extensive ulceration and acute and chronic inflammation. Negative for malignancy. See comment. B. Tissue biopsy, right inferior leg ulcer: Acute and chronic inflammation. Negative for malignancy. See comment. /SJ 04/14/22 COMMENT A. Inflammation involves full thickness of dermis and superficial adipose tissue. B. Inflammation involves deeper dermis and superficial adipose tissue. A & B. Special stains for acid fast bacilli and fungi are negative for organisms; matched controls are appropriate. Correlation with clinical findings and appropriate follow up are necessary to rule out pyoderma gangrenosum. Case has been reviewed in consultation with Dr. Jones who concurs with the above diagnosis. IDC:AM MICROSCOPIC DESCRIPTION Slides are reviewed. GROSS DESCRIPTION A. Received in fixative is one container labeled with the patient's name and designated right superior leg. The specimen consists of a punch biopsy of miller white skin measuring 0.4 cm in diameter and 0.6 cm in length. Also present in the container a piece of soft tissue measuring 0.5 x 0.5 x 0.2 cm. The entire specimen is submitted in one cassette. B. Received in fixative is one container labeled with the patient's name and designated right inferior leg ulcer. The specimen consists of a punch biopsy of miller white skin measuring 0.4 cm in diameter and 0.5 cm in length. The entire specimen is submitted in one cassette. /DONNELL:leila 04/13/2022 TC:2 CPT: 35323 x2, 39239 x4
--- NOTE | 2022-04-12 15:05 | PCM.WC.PN ---
History of Present Illness Date of Service: 04/12/22 Chief Complaint: Right medial lower leg spider bite History of Wound: 41 year old female presents for evaluation of spider bite to her right medial leg. She states she was sleeping at her father's house and there was a spider in the bedroom where she was sleeping. It occurred several days ago. She also has been out in the [place] with her dog, but denies being bit by any ticks. She was seen in oncology on recently for follow up for her left breast invasive ductal carcinoma which she was diagnosed in 01/16. She has received two rounds of chemotherapy. This spider bite was observed during that visit and the patient was referred to the wound center. Patient has been receiving potassium infusions. She also has a history of MD, which she wears braces on her legs. The area of the wound is under where the brace meets her skin. 04/12/22 - Punch biopsy x2 obtained due to the significant increase in the wound in one week. Patient denies fever, chills, nausea or vomiting. Progress of Wound: Right medial leg wound is stable compared to Sunday. The redness surrounding the wound is smaller. She comes in today for a punch biopsy of the ulcer. She is also complaining of wound pain caused by the gauze dressing drying out and it becomes very painful. Objective Data Objective Data Vital Signs: Vital Signs Temp Pulse Resp BP O2 Del Method 96.5 F L 115 H 16 131/73 H Room Air 04/12/22 13:03 04/12/22 13:03 04/12/22 13:03 04/12/22 13:03 04/12/22 13:03 Oxygen Delivery Method Room Air Weight: 100 lb Body Mass Index (BMI) 23.2 Lab / Micro Data Micro: Microbiology 04/05/22 11:15 Wound Abcess - Leg, Right Gram Stain - Final 04/05/22 11:15 Wound Abcess - Leg, Right Wound Culture - Final No growth aerobically. 04/05/22 11:15 Wound Abcess - Leg, Right Anaerobic Culture - Final No growth in 5 days. Charges/Coding Procedures Integumentary [id number]: [id number] Punch bx skin single lesion Debridement Note Debridement Note Post-Debridement Measurements and Additional Note: Post-Debridement Measurements/Treatment WC - Nurse 1 - General Ulcer Assessment Start: 04/05/22 10:15 Freq: Status: Active Protocol: WC.LOWEXT Activity Type Activity Date Activity User E-sign Co-sign Detail Recorded Client Recorded Date Recorded By Document 04/05/22 10:47 RB [id number] 04/05/22 10:55 RB Document 04/10/22 10:42 DL [id number] 04/10/22 10:50 DL Document 04/12/22 13:03 BMF [id number] 04/12/22 13:13 BMF 04/05/22 04/10/22 04/12/22 10:47 10:42 13:03 WC - Today's Visit Information Type of service Initial Visit Follow-up Visit Follow-up Visit (Physician/APPLICATION DEVELOPER MANAGER (Physician/APPLICATION DEVELOPER MANAGER ) ) Arrival Mode Ambulatory Wheelchair Wheelchair Transfer Assistance None Manual,None Other Transfer Assist (Other) x1 DAD TRANSFERRED Accompanied by MOM AND DAD Patient Identification Verified (Name & Yes Yes Yes ) Patient Requires Transmission-Based No No Precautions Height and Weight Height 4 ft 7 in Weight 100 lb Weight in Pounds 100.0 lbs Body Mass Index (BMI) 23.2 23.2 23.2 BMI Classification Normal Normal Normal BSA - Eileen 1.31 Vital Signs Temperature (97.8 F-99.1 F) 97 F L 97.7 F L 96.5 F L Temperature Source Oral Temporal Temporal Pulse Rate (60-100) 125 H 112 H 115 H Pulse Location Monitor Monitor Monitor Respiratory Rate (12-18) 18 18 16 Respiratory rate source Observation Observation Observation Oxygen Delivery Method Room Air Blood Pressure (90/60-120/80) 123/79 H 121/77 H 131/73 H Blood Pressure Mean (mm Hg) 93 91 92 Source Monitor Monitor Monitor Position Semi-Fowlers Sitting Blood Pressure Location Left Arm Right Arm History Since Last Visit- (Skip if this is Patient's initial visit) Have you changed medications since your No No No last visit? Any new allergies or adverse reactions No No No Had a fall/change in ADL's that may No No No increase risk of falls Signs or symptoms of abuse and/or No No No neglect since last visit Have you been in the hospital since your No No No last visit? Has dressing in place as prescribed Yes Yes Yes Has compression in place as prescribed No Yes Has offloadiing in place as prescribed No N/A N/A Experienced any changes in pain level or No No No management Left Footwear Other Footwear (Comment) Right Footwear Other Footwear (Comment) Other Footwear SOCKS BOTH FEET Pain Scale: 0-10 Numeric Is Patient Pain Free? Yes Yes Yes Lower Extremity Assessment/ Foot Assessment/ Toe Nail Assessment Right -Posterior Tibial Palpable Yes -Dorsalis Pedis Palpable Yes -Extremity Color Normal -Hair Growth on Legs Yes -Hair Growth on Toes No -Temperature of Extremity Warm -Capillary Refill Less than 3 Seconds -Dependent Rubor No -Blanched when Elevated No -Lipodermatosclerosis No -Other Deformity No -Prior Foot Ulcer No -Charcot Joint No -Prior Amputation No -Thick No -Discolored No -Deformed No -Improper Length & Hygeine Yes Neuropathy Assessment Feet - Top Side and Bottom <Entered> (a) Communication Assessment Preferred language Turkmen Physical Damage Appraiser Required No Able to Read Yes Able to Write Yes Caregiver Communication Skills No Impairment Impairment Right Hearing Abillity Normal Left Hearing Abillity Normal Visual Assistive Devices Glasses Teaching Assessment Preferences Verbal,Written Barriers to Learning None Readiness To Learn Good Willingness to Engage in Self Management Med Activies Readiness to Engage in Self Management Med Activities Anxiety Level Calm Cooperation Cooperative Perception Coherent Interest in Health Problem Asks Questions Education Importance Acknowledges Need Does Patient Smoke tobacco or other No substances Smoking Status Never smoker Is Patient Diabetic Yes Functional Assessment Recent Decline in Ability to Perform Ambulation Assistive Device With Patient leg braces Culture/Restoration/Wiring Technician Cultural/Restoration Needs that may affect No Treatment Plan Would you allow our hospital rack room worker to No meet you for the purpose of spiritual/ emotional support? Wiring Technician to contact place of moravian No Teaching: Wound Center *Welcome to the Wound Center -Person Taught Patient -Teaching Method Discussion -Response to teaching Verbalize understanding (a) 1 - + throughout WC - Nurse 1 - General Ulcer Measurement Start: 04/05/22 10:15 Freq: Status: Active Protocol: Activity Type Activity Date Activity User E-sign Co-sign Detail Recorded Client Recorded Date Recorded By Document 04/05/22 10:47 RB [id number] 04/05/22 10:55 RB Document 04/10/22 10:42 DL [id number] 04/10/22 10:50 DL Document 04/12/22 13:03 BMF [id number] 04/12/22 13:13 [facility] 04/05/22 04/10/22 04/12/22 10:47 10:42 13:03 Wound Center Nurse 1 1. RLE -Combined with other wound No No -Current Size (cm) - Length 0.1 5 6.8 -Current Size (cm) - Width 0.1 5.7 6.8 -Current Size (cm) - Depth 0.1 0.1 0.1 -Total Square Cm 0.01 28.5 46.24 -Date of Last Picture (Recall this 04/12/22 field) -Photo Taken Yes Yes Yes -Epithelialization None Present -Tunneling No No -Undermining/Tunneling No No -Circular Undermining No No -Exudate Amt None Present Medium Large -Exudate Type Serosanguineous Serosanguineous -Wound Margin Distinct, Distinct, Distinct, Outline Outline Outline Attached Attached Attached -Granulation Amt Medium (34-66%) Small (1-33%) Medium (34-66%) -Granulation Quality Lovell Red Red -Slough/Fibrin Yes -Necrosis Amt Medium (34-66%) Large (67-100%) Medium (34-66%) -Necrotic Tissue Type Adherent Slough Adherent Slough Eschar -Structure Exposed N/A N/A -Texture (Brianna-wound Skin Appearance) Assessed Localized Edema Assessed, ,Scarring Fluctuance -Moisture (Brianna-wound Skin Appearance) Assessed No Abnormality Assessed -Color (Brianna-wound Skin Appearance) Erythema Erythema Assessed, Erythema -Temperature (Brianna-wound Skin No Abnormality No Abnormality No Abnormality Appearance) (Pt Warm) (Pt Warm) (Pt Warm) -Tenderness on Palpation (Brianna-wound No Yes Yes Skin Appearance) -Ulcer Cleansing Wound Cleanser Rinsed/ Soap and Water Irrigated with Saline -Foul Odor after Cleansing No No No -Anesthetic Used 4% Lidocaine 5% Lidocaine 5% Lidocaine Solution Gel Gel Lower Limb Edema Present Yes Yes Right Calf (cm) 27.5 26 Right Ankle (cm) 19.5 18 Left Calf (cm) 26 Left Ankle (cm) 19 WC - Nurse 2 - General Ulcer CM Notes Start: 04/05/22 10:15 Freq: Status: Active Protocol: Activity Type Activity Date Activity User E-sign Co-sign Detail Recorded Client Recorded Date Recorded By Document 04/05/22 11:11 MW [id number] 04/05/22 11:21 MW Document 04/10/22 11:08 JF [id number] 04/10/22 11:18 JF 04/05/22 04/10/22 11:11 11:08 Wound Center Nurse 2 1. RLE -Time 11:12 11:09 -Correct Patient Yes Yes -Correct Side, Site, Position Yes Yes -Correct Procedure Yes Yes -Procedure Performed Yes Yes -Type of Procedure Debridement Debridement -Clinical Debridement Epidermis / Subcutaneous Dermis -Tissue Removed Epidermis Subcutaneous -Post Debridement (cm) - Length 1.0 6.2 -Post Debridement (cm) - Width 1.0 6.8 -Post Debridement (cm) - Depth 0.2 0.2 -Total Square (Post) (cm) 1.00 42.16 -Area of Debridement (cm) - Length 1.0 6.2 -Area of Debridement (cm) - Width 1.0 6.8 -Total Square (Area) (cm) 1.00 42.16 -Tunneling Yes No -Undermining/Tunneling Yes No -Circular Undermining Yes No -Wound/Ulcer Outcome Not Healed Not Healed -Ulcer Cleansing Wound Cleanser Rinsed/ Irrigated with Saline -Foul Odor after Cleansing No No -Bioengineered Tissue No No -Bleeding Controlled with Pressure Pressure -Treatment Response Procedure Procedure Tolerated Well Tolerated Well -Offloading No No -Debridement - Open, 1st 20sq cm Yes -Debridement - Subq, 1st 20sq cm Yes -Debridement, SubQ, ea addt'l 20sq cm 2 or part thereof Pain Scale: 0-10 Numeric Is Patient Pain Free? Yes Yes - Nurse 3 - General Ulcer D/C NN Start: 04/05/22 10:15 Freq: Status: Active Protocol: Activity Type Activity Date Activity User E-sign Co-sign Detail Recorded Client Recorded Date Recorded By Document 04/05/22 11:32 RB [id number] 04/05/22 11:33 RB Document 04/10/22 11:42 AK [id number] 04/10/22 11:44 AK Document 04/12/22 14:03 [facility] [id number] 11/16/22 14:05 BMF 04/05/22 04/10/22 04/12/22 11:32 11:42 14:03 Wound Care Nurse 3 1. RLE -Ulcer Cleansing Rinsed/ Rinsed/ Soap and Water Irrigated with Irrigated with Saline Saline -Foul Odor after Cleansing No No -Negative Pressure Wound Therapy N/A -Primary Dressing Applied Promogran Hysept ($) Lilibeth Matter -Other Dressing ABD DAKINS MOIST GAUZE -Primary Dressing Covered/Secured with Dry Gauze,Dry Dry Gauze & Dry Gauze & Gauze & Roll Roll Gauze, Roll Gauze, Gauze,Secured Secured with Secured with with Tape Tape Tape -Other Covering DRSG PER DL CORE DRILLER HELPER -Promogran Lilibeth Matter 1 Right -Tubular Bandage Single Layer Single Layer Single Layer -Size of Tubigrip Used Size C Size C Size C -Size C ($) 1 1 1 Treatment Response Procedure Procedure Tolerated Well Tolerated Well Pain Scale: 0-10 Numeric Is Patient Pain Free? Yes No Yes WC - Visit Discharge Discharge Condition Stable Stable Stable Ambulatory Status Ambulatory Wheelchair Wheelchair Transportation Private Auto Private Auto Private Auto Accompanied by parents MOM AND DAD Medication Reconcilliation completed & Yes Yes provided to patient/care provider Clinical Summary of Care Provided Yes Assessment/Plan Assessment/Plan (1) Unspecified open wound, right lower leg, initial encounter: CODE(S): S81.801A - Unspecified open wound, right lower leg, initial encounter (2) Breast cancer, left breast: CODE(S): C50.912 - Malignant neoplasm of unspecified site of left female breast (3) Braces as ambulation aid: CODE(S): Z97.8 - Presence of other specified devices PLAN: Plan Patient evaluated today at the wound center. Two punch biopsies obtained of the wound today. Patient tolerated the procedure well. Wound care - Dakins 0.25% moistened gauze covered with ABD twice daily. Increasing to twice daily because Bere is complaining about the gauze drying and becoming painful against the wound when changing the dressing only once per day. Tubigrip for compression. Wound culture from 04/05/22 showed no bacterial growth. Continue Doxycycline twice daily due to her suppressed immune status and the significant change in the wound this week. 04/11/22 - After speaking to both Dr. Jorge and Dr. Esquivel about this patient and the change in her wound, it is recommended that we obtain a biopsy of this wound. I also spoke with Chelsea Hernandez EXECUTIVE DIRECTOR in oncology also and she states they have held Bere's chemo this week due to the change in her wound and because her albumin level was so low. She is starting her on Adrian. She also states that the sooner this wound is biopsied, the sooner they can continue her chemotherapy. Need pathology to determine proper treatment of this wound. Encouraged her to increase her protein intake. Follow up one week. Call or come in sooner if develop any concerns. Date of Procedure: 04/12/22 Procedure: Punch biopsy at 12 o'clock and 6 o'clock Indication: Increasing size of wound over one week. 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 History of MD. Description of Procedure: Discussed procedure with patient and her parents. Verbal agreement was obtained. Used Lidocaine 1%/Epinephrine 1% to inject along the edge of the wound at 1200 and 600, 3 ml in each area. After waiting 10 minutes, obtained a punch biopsy at 600 with a 5mm punch. Pressure held until bleeding stopped. Uses Silver nitrate to prevent any further bleeding. Bleeding completely stopped. She could still feel sharp pain at the 1200 area, injected another 1.5 ml of lidocaine/epi. After waiting 5 minutes, she was not feeling any sharp pain. Punch biopsy 5mm taken at the 1200 edge of wound. Pressure held until bleeding slowed. Silver nitrate used to prevent any further bleeding. Patient tolerated procedure well. Specimen sent to lab for analysis. Wound care will continue to Dakin's moistened gauze. Complications: none Impression: Patient tolerated procedure well. Specimen sent to lab for analysis. Wound care will continue to Dakin's moistened gauze.
[2022-04-17 09:32] VITALS: BP 130/90; PULSE 125; RESP 16; TEMP 36.1; BMI 23.2
--- NOTE | 2022-04-17 11:23 | PCM.WC.PN ---
History of Present Illness Date of Service: 04/17/22 Chief Complaint: Right medial lower leg spider bite History of Wound: 41 year old female presents for evaluation of spider bite to her right medial leg. She states she was sleeping at her father's house and there was a spider in the bedroom where she was sleeping. It occurred several days ago. She also has been out in the [place] with her dog, but denies being bit by any ticks. She was seen in oncology on recently for follow up for her left breast invasive ductal carcinoma which she was diagnosed in 01/16. She has received two rounds of chemotherapy. This spider bite was observed during that visit and the patient was referred to the wound center. Patient has been receiving potassium infusions. She also has a history of MD, which she wears braces on her legs. The area of the wound is under where the brace meets her skin. Pathology from punch biopsy x 2 on 04/12/22. Right leg superior biopsy (specimen A) showed extensive ulceration and acute and chronic inflammation, negative for malignancy. Inflammation involves full thickness of dermis and superficial adipose tissue. Right leg inferior biopsy (specimen B) showed acute and chronic inflammation, negative for malignancy. Inflammation involves deeper dermis and superficial adipose tissue. A&B Special stains for acid fast bacilli and fungi are negative for organisms. Correlation with clinical findings and appropriate follow up are necessary to rule out pyoderma grangrenosum Patient denies fever, chills, nausea or vomiting. Progress of Wound: Right medial leg wound bed is beefy pink. The edges of the wound have stabilized. She denies any issues with dressing changes or bleeding. +1 edema of her right leg. Objective Data Objective Data Vital Signs: Vital Signs Temp Pulse Resp BP O2 Del Method 96.9 F L 125 H 16 130/90 H Room Air 04/17/22 09:32 04/17/22 09:32 04/17/22 09:32 04/17/22 09:32 04/17/22 09:32 Oxygen Delivery Method Room Air Weight: 100 lb Body Mass Index (BMI) 23.2 Lab / Micro Data Micro: Microbiology 04/05/22 11:15 Wound Abcess - Leg, Right Gram Stain - Final 04/05/22 11:15 Wound Abcess - Leg, Right Wound Culture - Final No growth aerobically. 04/05/22 11:15 Wound Abcess - Leg, Right Anaerobic Culture - Final No growth in 5 days. Charges/Coding Procedures Integumentary [id number]: [id number] Archana subq tissue 20 sq cm/< Add On Codes: 02043 Archana subq tissue add-on (x2) Debridement Note Debridement Note Wound debrided: medial leg wound Laterality: Right Wound Grade/Stage: Stage II Type of Debridement: Excisional debridement Anesthesia Used: 5% Lidocaine Gel Depth: Down to and including healthy tissue and in the subcutaneous layer Percentage of wound debrided: 100 Instrument Used: 5mm curette Tissue Removed: Non viable tissue Severity: Fat Layer Exposed Amount of bleeding with debridement: None Bleeding Controlled with: Pressure and Compression and gauze Patient tolerated procedure: Patient tolerated procedure well Debridement Free Text: Light debridement to remove nonviable tissue and slough, mostly around the edges of the wound. Post-Debridement Measurements and Additional Note: Post-Debridement Measurements/Treatment - Nurse 1 - General Ulcer Assessment Start: 04/05/22 10:15 Freq: Status: Active Protocol: GWEN Activity Type Activity Date Activity User E-sign Co-sign Detail Recorded Client Recorded Date Recorded By Document 04/05/22 10:47 RB [id number] 04/05/22 10:55 RB Document 04/10/22 10:42 DL [id number] 04/10/22 10:50 DL Document 04/12/22 13:03 [facility] [id number] 04/12/22 13:13 [facility] Document 04/17/22 09:32 [facility] [id number] 04/17/22 09:42 [facility] 04/05/22 04/10/22 04/12/22 10:47 10:42 13:03 - Today's Visit Information Type of service Initial Visit Follow-up Visit Follow-up Visit (Physician/CRITICAL CARE TRANSPORT NURSE (Physician/CRITICAL CARE TRANSPORT NURSE ) ) Arrival Mode Ambulatory Wheelchair Wheelchair Transfer Assistance None Manual,None Other Transfer Assist (Other) x1 DAD TRANSFERRED Accompanied by MOM AND DAD Patient Identification Verified (Name & Yes Yes Yes ) Patient Requires Transmission-Based No No Precautions Height and Weight Height 4 ft 7 in Weight 100 lb Weight in Pounds 100.0 lbs Body Mass Index (BMI) 23.2 23.2 23.2 BMI Classification Normal Normal Normal BSA - Eileen 1.31 Vital Signs Temperature (97.8 F-99.1 F) 97 F L 97.7 F L 96.5 F L Temperature Source Oral Temporal Temporal Pulse Rate (60-100) 125 H 112 H 115 H Pulse Location Monitor Monitor Monitor Respiratory Rate (12-18) 18 18 16 Respiratory rate source Observation Observation Observation Oxygen Delivery Method Room Air Blood Pressure (90/60-120/80) 123/79 H 121/77 H 131/73 H Blood Pressure Mean (mm Hg) 93 91 92 Source Monitor Monitor Monitor Position Semi-Fowlers Sitting Blood Pressure Location Left Arm Right Arm History Since Last Visit- (Skip if this is Patient's initial visit) Have you changed medications since your No No No last visit? Any new allergies or adverse reactions No No No Had a fall/change in ADL's that may No No No increase risk of falls Signs or symptoms of abuse and/or No No No neglect since last visit Have you been in the hospital since your No No No last visit? Has dressing in place as prescribed Yes Yes Yes Has compression in place as prescribed No Yes Has offloadiing in place as prescribed No N/A N/A Experienced any changes in pain level or No No No management Left Footwear Other Footwear (Comment) Right Footwear Other Footwear (Comment) Other Footwear SOCKS BOTH FEET Pain Scale: 0-10 Numeric Is Patient Pain Free? Yes Yes Yes Lower Extremity Assessment/ Foot Assessment/ Toe Nail Assessment Right -Posterior Tibial Palpable Yes -Dorsalis Pedis Palpable Yes -Extremity Color Normal -Hair Growth on Legs Yes -Hair Growth on Toes No -Temperature of Extremity Warm -Capillary Refill Less than 3 Seconds -Dependent Rubor No -Blanched when Elevated No -Lipodermatosclerosis No -Other Deformity No -Prior Foot Ulcer No -Charcot Joint No -Prior Amputation No -Thick No -Discolored No -Deformed No -Improper Length & Hygeine Yes Neuropathy Assessment Feet - Top Side and Bottom <Entered> (a) Communication Assessment Preferred language Tajik Car Attendant Required No Able to Read Yes Able to Write Yes Caregiver Communication Skills No Impairment Impairment Right Hearing Abillity Normal Left Hearing Abillity Normal Visual Assistive Devices Glasses Teaching Assessment Preferences Verbal,Written Barriers to Learning None Readiness To Learn Good Willingness to Engage in Self Management Med Activies Readiness to Engage in Self Management Med Activities Anxiety Level Calm Cooperation Cooperative Perception Coherent Interest in Health Problem Asks Questions Education Importance Acknowledges Need Does Patient Smoke tobacco or other No substances Smoking Status Never smoker Is Patient Diabetic Yes Functional Assessment Recent Decline in Ability to Perform Ambulation Assistive Device With Patient leg braces Culture/Congregation/Spring Maker Cultural/Congregation Needs that may affect No Treatment Plan Would you allow our hospital covering machine tender to No meet you for the purpose of spiritual/ emotional support? Spring Maker to contact place of jew No Teaching: Wound Center *Welcome to the Wound Center -Person Taught Patient -Teaching Method Discussion -Response to teaching Verbalize understanding 04/17/22 09:32 WC - Today's Visit Information Type of service Follow-up Visit (Physician/CRITICAL CARE TRANSPORT NURSE ) Arrival Mode Wheelchair Transfer Assistance Other Transfer Assist (Other) DAD TRANSFERS Accompanied by Patient Identification Verified (Name & Yes ) Patient Requires Transmission-Based No Precautions Height and Weight Height Weight Weight in Pounds Body Mass Index (BMI) 23.2 BMI Classification Normal BSA - Eileen Vital Signs Temperature (97.8 F-99.1 F) 96.9 F L Temperature Source Temporal Pulse Rate (60-100) 125 H Pulse Location Monitor Respiratory Rate (12-18) 16 Respiratory rate source Observation Oxygen Delivery Method Room Air Blood Pressure (90/60-120/80) 130/90 H Blood Pressure Mean (mm Hg) 103 Source Monitor Position Sitting Blood Pressure Location Left Arm History Since Last Visit- (Skip if this is Patient's initial visit) Have you changed medications since your No last visit? Any new allergies or adverse reactions No Had a fall/change in ADL's that may No increase risk of falls Signs or symptoms of abuse and/or No neglect since last visit Have you been in the hospital since your No last visit? Has dressing in place as prescribed Yes Has compression in place as prescribed Yes Has offloadiing in place as prescribed N/A Experienced any changes in pain level or No management Left Footwear Slipper Right Footwear Slipper Other Footwear Pain Scale: 0-10 Numeric Is Patient Pain Free? Yes Lower Extremity Assessment/ Foot Assessment/ Toe Nail Assessment Right -Posterior Tibial Palpable -Dorsalis Pedis Palpable -Extremity Color -Hair Growth on Legs -Hair Growth on Toes -Temperature of Extremity -Capillary Refill -Dependent Rubor -Blanched when Elevated -Lipodermatosclerosis -Other Deformity -Prior Foot Ulcer -Charcot Joint -Prior Amputation -Thick -Discolored -Deformed -Improper Length & Hygeine Neuropathy Assessment Feet - Top Side and Bottom Communication Assessment Preferred speech language therapist Required Able to Read Able to Write Caregiver Communication Skills Impairment Right Hearing Abillity Left Hearing Abillity Visual Assistive Devices Teaching Assessment Preferences Barriers to Learning Readiness To Learn Willingness to Engage in Self Management Activies Readiness to Engage in Self Management Activities Anxiety Level Cooperation Perception Interest in Health Problem Education Importance Does Patient Smoke tobacco or other substances Smoking Status Is Patient Diabetic Functional Assessment Recent Decline in Ability to Perform Assistive Device With Patient Culture/Congregation/Spring Maker Cultural/Congregation Needs that may affect Treatment Plan Would you allow our hospital covering machine tender to meet you for the purpose of spiritual/ emotional support? Spring Maker to contact place of jew Teaching: Wound Center *Welcome to the Wound Center -Person Taught -Teaching Method -Response to teaching (a) 1 - + throughout WC - Nurse 1 - General Ulcer Measurement Start: 04/05/22 10:15 Freq: Status: Active Protocol: Activity Type Activity Date Activity User E-sign Co-sign Detail Recorded Client Recorded Date Recorded By Document 04/05/22 10:47 RB [id number] 04/05/22 10:55 RB Document 04/10/22 10:42 DL [id number] 04/10/22 10:50 DL Document 04/12/22 13:03 [facility] [id number] 04/12/22 13:13 [facility] Document 04/17/22 09:32 [facility] [id number] 04/17/22 09:42 F 04/05/22 04/10/22 04/12/22 10:47 10:42 13:03 Wound Center Nurse 1 1. RLE -Combined with other wound No No -Current Size (cm) - Length 0.1 5 6.8 -Current Size (cm) - Width 0.1 5.7 6.8 -Current Size (cm) - Depth 0.1 0.1 0.1 -Total Square Cm 0.01 28.5 46.24 -Date of Last Picture (Recall this 04/12/22 field) -Photo Taken Yes Yes Yes -Epithelialization None Present -Tunneling No No -Undermining/Tunneling No No -Circular Undermining No No -Exudate Amt None Present Medium Large -Exudate Type Serosanguineous Serosanguineous -Wound Margin Distinct, Distinct, Distinct, Outline Outline Outline Attached Attached Attached -Granulation Amt Medium (34-66%) Small (1-33%) Medium (34-66%) -Granulation Quality Magazine Red Red -Slough/Fibrin Yes -Necrosis Amt Medium (34-66%) Large (67-100%) Medium (34-66%) -Necrotic Tissue Type Adherent Slough Adherent Slough Eschar -Structure Exposed N/A N/A -Texture (Brianna-wound Skin Appearance) Assessed Localized Edema Assessed, ,Scarring Fluctuance -Moisture (Brianna-wound Skin Appearance) Assessed No Abnormality Assessed -Color (Brianna-wound Skin Appearance) Erythema Erythema Assessed, Erythema -Temperature (Brianna-wound Skin No Abnormality No Abnormality No Abnormality Appearance) (Pt Warm) (Pt Warm) (Pt Warm) -Tenderness on Palpation (Brianna-wound No Yes Yes Skin Appearance) -Ulcer Cleansing Wound Cleanser Rinsed/ Soap and Water Irrigated with Saline -Foul Odor after Cleansing No No No -Anesthetic Used 4% Lidocaine 5% Lidocaine 5% Lidocaine Solution Gel Gel Lower Limb Edema Present Yes Yes Right Calf (cm) 27.5 26 Right Ankle (cm) 19.5 18 Left Calf (cm) 26 Left Ankle (cm) 19 04/17/22 09:32 Wound Center Nurse 1 1. RLE -Combined with other wound No -Current Size (cm) - Length 6.8 -Current Size (cm) - Width 7.2 -Current Size (cm) - Depth 0.1 -Total Square Cm 48.96 -Date of Last Picture (Recall this 04/17/22 field) -Photo Taken Yes -Epithelialization None Present -Tunneling No -Undermining/Tunneling No -Circular Undermining No -Exudate Amt Large -Exudate Type Serosanguineous -Wound Margin Flat & Intact -Granulation Amt Large (67-100%) -Granulation Quality Red -Slough/Fibrin Yes -Necrosis Amt Small (1-33%) -Necrotic Tissue Type Adherent Slough -Structure Exposed -Texture (Brianna-wound Skin Appearance) Assessed, Scarring -Moisture (Brianna-wound Skin Appearance) Assessed -Color (Brianna-wound Skin Appearance) Assessed -Temperature (Brianna-wound Skin No Abnormality Appearance) (Pt Warm) -Tenderness on Palpation (Brianna-wound No Skin Appearance) -Ulcer Cleansing Soap and Water -Foul Odor after Cleansing No -Anesthetic Used 4% Lidocaine Solution Lower Limb Edema Present Yes Right Calf (cm) 26 Right Ankle (cm) 18.5 Left Calf (cm) Left Ankle (cm) WC - Nurse 2 - General Ulcer CM Notes Start: 04/05/22 10:15 Freq: Status: Active Protocol: Activity Type Activity Date Activity User E-sign Co-sign Detail Recorded Client Recorded Date Recorded By Document 04/05/22 11:11 MW [id number] 04/05/22 11:21 MW Document 04/10/22 11:08 JF [id number] 04/10/22 11:18 JF Edit Result 04/10/22 11:08 JF (1) [id number] 04/14/22 08:15 PL Document 04/17/22 10:00 JF [id number] 04/17/22 10:06 ELISABETH (1) 1. RLE - Type of Procedure Debridement => Biopsy - Clinical Debridement Subcutaneous => - Tissue Removed Subcutaneous => - Debridement, SubQ, ea addt'l 20sq cm 2 => or part thereof - I&D / Paring / Biopsy => Tangential bx skin => (eg:shave,scoop, => saucerize,curette) => , single lesion 04/05/22 04/10/22 04/17/22 11:11 11:08 10:00 Wound Center Nurse 2 1. RLE -Time 11:12 11:09 10:00 -Correct Patient Yes Yes Yes -Correct Side, Site, Position Yes Yes Yes -Correct Procedure Yes Yes Yes -Procedure Performed Yes Yes Yes -Type of Procedure Debridement Biopsy Debridement -Clinical Debridement Epidermis / Subcutaneous Dermis -Tissue Removed Epidermis Subcutaneous -Post Debridement (cm) - Length 1.0 6.2 7.5 -Post Debridement (cm) - Width 1.0 6.8 6.8 -Post Debridement (cm) - Depth 0.2 0.2 1.1 -Total Square (Post) (cm) 1.00 42.16 51.00 -Area of Debridement (cm) - Length 1.0 6.2 7.5 -Area of Debridement (cm) - Width 1.0 6.8 6.8 -Total Square (Area) (cm) 1.00 42.16 51.00 -Tunneling Yes No No -Undermining/Tunneling Yes No No -Circular Undermining Yes No No -Wound/Ulcer Outcome Not Healed Not Healed Not Healed -Ulcer Cleansing Wound Cleanser Rinsed/ Rinsed/ Irrigated with Irrigated with Saline Saline -Foul Odor after Cleansing No No No -Bioengineered Tissue No No No -Bleeding Controlled with Pressure Pressure Pressure -Treatment Response Procedure Procedure Procedure Tolerated Well Tolerated Well Tolerated Well -Offloading No No No -Debridement - Open, 1st 20sq cm Yes -Debridement - Subq, 1st 20sq cm Yes Yes -Debridement, SubQ, ea addt'l 20sq cm 2 or part thereof -I&D / Paring / Biopsy Tangential bx skin (eg:shave, scoop, saucerize, curette), single lesion Pain Scale: 0-10 Numeric Is Patient Pain Free? Yes Yes Yes WC - Nurse 3 - General Ulcer D/C NN Start: 04/05/22 10:15 Freq: Status: Active Protocol: Activity Type Activity Date Activity User E-sign Co-sign Detail Recorded Client Recorded Date Recorded By Document 04/05/22 11:32 RB [id number] 04/05/22 11:33 RB Document 04/10/22 11:42 PR [id number] 04/10/22 11:44 AK Document 04/12/22 14:03 [facility] [id number] 04/12/22 14:05 [facility] Document 04/17/22 10:16 [facility] [id number] 04/17/22 10:17 [facility] 04/05/22 04/10/22 04/12/22 11:32 11:42 14:03 Wound Care Nurse 3 1. RLE -Ulcer Cleansing Rinsed/ Rinsed/ Soap and Water Irrigated with Irrigated with Saline Saline -Foul Odor after Cleansing No No -Negative Pressure Wound Therapy N/A -Primary Dressing Applied Promogran Hysept ($) Lilibeth Matter -Other Dressing ABD DAKINS MOIST GAUZE -Primary Dressing Covered/Secured with Dry Gauze,Dry Dry Gauze & Dry Gauze & Gauze & Roll Roll Gauze, Roll Gauze, Gauze,Secured Secured with Secured with with Tape Tape Tape -Other Covering DRSG PER DL INSURANCE SALES MANAGER -Promogran Lilibeth Matter 1 Right -Tubular Bandage Single Layer Single Layer Single Layer -Size of Tubigrip Used Size C Size C Size C -Size C ($) 1 1 1 -Size D ($) Treatment Response Procedure Procedure Tolerated Well Tolerated Well Pain Scale: 0-10 Numeric Is Patient Pain Free? Yes No Yes WC - Visit Discharge Discharge Condition Stable Stable Stable Ambulatory Status Ambulatory Wheelchair Wheelchair Transportation Private Auto Private Auto Private Auto Accompanied by parents MOM AND DAD Medication Reconcilliation completed & Yes Yes provided to patient/care provider Clinical Summary of Care Provided Yes 04/17/22 10:16 Wound Care Nurse 3 1. RLE -Ulcer Cleansing Rinsed/ Irrigated with Saline -Foul Odor after Cleansing No -Negative Pressure Wound Therapy -Primary Dressing Applied -Other Dressing DAKINS MOIST TO DRY PER [place] INSURANCE SALES MANAGER -Primary Dressing Covered/Secured with Dry Gauze & Roll Gauze, Secured with Tape -Other Covering -Promogran Lilibeth Matter Right -Tubular Bandage Single Layer -Size of Tubigrip Used Size D -Size C ($) -Size D ($) 1 Treatment Response Procedure Tolerated Well Pain Scale: 0-10 Numeric Is Patient Pain Free? Yes WC - Visit Discharge Discharge Condition Stable Ambulatory Status Wheelchair Transportation Private Auto Accompanied by DAD AND MOM Medication Reconcilliation completed & provided to patient/care provider Clinical Summary of Care Provided Assessment/Plan Assessment/Plan (1) Unspecified open wound, right lower leg, initial encounter: CODE(S): S81.801A - Unspecified open wound, right lower leg, initial encounter (2) Breast cancer, left breast: CODE(S): C50.912 - Malignant neoplasm of unspecified site of left female breast (3) Braces as ambulation aid: CODE(S): Z97.8 - Presence of other specified devices (4) Pyoderma gangrenosum: CODE(S): L88 - Pyoderma gangrenosum PLAN: Plan Patient evaluated today at the wound center. Wound care - Dakins 0.25% moistened gauze covered with ABD twice daily. Increasing to twice daily because Bere is complaining about the gauze drying and becoming painful against the wound when changing the dressing only once per day. Tubigrip for compression. Wound culture from 04/05/22 showed no bacterial growth. Punch biopsy x 2 from 04/12/22 showed acute and chronic inflammation with extensive ulceration. Correlation with clinical findings and appropriate follow up are necessary to rule out pyoderma grangrenosum. Continue Doxycycline. Her chemotherapy was held last week due to the change in the wound. Bere is concerned that it will be held again this week. I would like to clear with Oncology if they are ok with me prescribing a topical steroid to this wound (such as Clobetasol propionate 0.05%), because clinically it looks like Pyoderma Grangrenosum, and this would be first line treatment for this localized wound. Follow up one week. Call or come in sooner if develop any concerns.
[2022-04-24 09:49] VITALS: BP 104/74; PULSE 143; TEMP 35.5; BMI 23.2
--- NOTE | 2022-04-24 11:08 | PCM.WC.PN ---
History of Present Illness Date of Service: 04/24/22 Chief Complaint: Right medial lower leg spider bite History of Wound: 41 year old female presents for evaluation of spider bite to her right medial leg. She states she was sleeping at her father's house and there was a spider in the bedroom where she was sleeping. It occurred several days ago. She also has been out in the [place] with her dog, but denies being bit by any ticks. She was seen in oncology on recently for follow up for her left breast invasive ductal carcinoma which she was diagnosed in 01/16. She has received two rounds of chemotherapy. This spider bite was observed during that visit and the patient was referred to the wound center. Patient has been receiving potassium infusions. She also has a history of MD, which she wears braces on her legs. The area of the wound is under where the brace meets her skin. Pathology from punch biopsy x 2 on 04/12/22. Right leg superior biopsy (specimen A) showed extensive ulceration and acute and chronic inflammation, negative for malignancy. Inflammation involves full thickness of dermis and superficial adipose tissue. Right leg inferior biopsy (specimen B) showed acute and chronic inflammation, negative for malignancy. Inflammation involves deeper dermis and superficial adipose tissue. A&B Special stains for acid fast bacilli and fungi are negative for organisms. Correlation with clinical findings and appropriate follow up are necessary to rule out pyoderma grangrenosum Patient denies fever, chills, nausea or vomiting. Progress of Wound: Right medial leg wound bed is beefy pink, smaller in size and has stablized. The punch biopsy sites are decreasing in depth. Objective Data Objective Data Vital Signs: Vital Signs Temp Pulse Resp BP O2 Del Method 95.9 F L 143 H 16 104/74 Room Air 04/24/22 09:49 04/24/22 09:49 04/17/22 09:32 04/24/22 09:49 04/17/22 09:32 Oxygen Delivery Method Room Air Weight: 100 lb Body Mass Index (BMI) 23.2 Lab / Micro Data Micro: Microbiology 04/05/22 11:15 Wound Abcess - Leg, Right Gram Stain - Final 04/05/22 11:15 Wound Abcess - Leg, Right Wound Culture - Final No growth aerobically. 04/05/22 11:15 Wound Abcess - Leg, Right Anaerobic Culture - Final No growth in 5 days. Charges/Coding Procedures Integumentary [id number]: [id number] Archana subq tissue 20 sq cm/< Add On Codes: 70545 Archana subq tissue add-on Debridement Note Debridement Note Wound debrided: medial leg wound Laterality: Right Wound Grade/Stage: Stage II Type of Debridement: Excisional debridement Anesthesia Used: 5% Lidocaine Gel Depth: Down to and including healthy tissue and in the subcutaneous layer Percentage of wound debrided: 100 Instrument Used: 5mm curette Tissue Removed: Non viable tissue and slough Severity: Fat Layer Exposed Amount of bleeding with debridement: None Bleeding Controlled with: Pressure and Compression and gauze Patient tolerated procedure: Patient tolerated procedure well Debridement Free Text: Light debridement to remove nonviable tissue and slough. Post-Debridement Measurements and Additional Note: Post-Debridement Measurements/Treatment - Nurse 1 - General Ulcer Assessment Start: 04/05/22 10:15 Freq: Status: Active Protocol: GWEN Activity Type Activity Date Activity User E-sign Co-sign Detail Recorded Client Recorded Date Recorded By Document 04/05/22 10:47 RB [id number] 04/05/22 10:55 RB Document 04/10/22 10:42 DL [id number] 04/10/22 10:50 DL Document 04/12/22 13:03 [facility] [id number] 04/12/22 13:13 [facility] Document 04/17/22 09:32 [facility] [id number] 04/17/22 09:42 [facility] Document 04/24/22 09:49 VT [id number] 04/24/22 09:51 VT 04/05/22 04/10/22 04/12/22 10:47 10:42 13:03 - Today's Visit Information Type of service Initial Visit Follow-up Visit Follow-up Visit (Physician/DIRECTOR OF PHYSICAL THERAPY (Physician/DIRECTOR OF PHYSICAL THERAPY ) ) Arrival Mode Ambulatory Wheelchair Wheelchair Transfer Assistance None Manual,None Other Transfer Assist (Other) x1 DAD TRANSFERRED Accompanied by MOM AND DAD Patient Identification Verified (Name & Yes Yes Yes ) Patient Requires Transmission-Based No No Precautions Safety Precautions Height and Weight Height 4 ft 7 in Weight 100 lb Weight in Pounds 100.0 lbs Body Mass Index (BMI) 23.2 23.2 23.2 BMI Classification Normal Normal Normal BSA - Eileen 1.31 Vital Signs Temperature (97.8 F-99.1 F) 97 F L 97.7 F L 96.5 F L Temperature Source Oral Temporal Temporal Pulse Rate (60-100) 125 H 112 H 115 H Pulse Location Monitor Monitor Monitor Respiratory Rate (12-18) 18 18 16 Respiratory rate source Observation Observation Observation Oxygen Delivery Method Room Air Blood Pressure (90/60-120/80) 123/79 H 121/77 H 131/73 H Blood Pressure Mean (mm Hg) 93 91 92 Source Monitor Monitor Monitor Position Semi-Fowlers Sitting Blood Pressure Location Left Arm Right Arm History Since Last Visit- (Skip if this is Patient's initial visit) Have you changed medications since your No No No last visit? Any new allergies or adverse reactions No No No Had a fall/change in ADL's that may No No No increase risk of falls Signs or symptoms of abuse and/or No No No neglect since last visit Have you been in the hospital since your No No No last visit? Has dressing in place as prescribed Yes Yes Yes Has compression in place as prescribed No Yes Has offloadiing in place as prescribed No N/A N/A Experienced any changes in pain level or No No No management Left Footwear Other Footwear (Comment) Right Footwear Other Footwear (Comment) Other Footwear SOCKS BOTH FEET Pain Scale: 0-10 Numeric Is Patient Pain Free? Yes Yes Yes Lower Extremity Assessment/ Foot Assessment/ Toe Nail Assessment Right -Posterior Tibial Palpable Yes -Dorsalis Pedis Palpable Yes -Extremity Color Normal -Hair Growth on Legs Yes -Hair Growth on Toes No -Temperature of Extremity Warm -Capillary Refill Less than 3 Seconds -Dependent Rubor No -Blanched when Elevated No -Lipodermatosclerosis No -Other Deformity No -Prior Foot Ulcer No -Charcot Joint No -Prior Amputation No -Thick No -Discolored No -Deformed No -Improper Length & Hygeine Yes Neuropathy Assessment Feet - Top Side and Bottom <Entered> (a) Communication Assessment Preferred language Serbian Auto Air Conditioning Apprentice Required No Able to Read Yes Able to Write Yes Caregiver Communication Skills No Impairment Impairment Right Hearing Abillity Normal Left Hearing Abillity Normal Visual Assistive Devices Glasses Teaching Assessment Preferences Verbal,Written Barriers to Learning None Readiness To Learn Good Willingness to Engage in Self Management Med Activies Readiness to Engage in Self Management Med Activities Anxiety Level Calm Cooperation Cooperative Perception Coherent Interest in Health Problem Asks Questions Education Importance Acknowledges Need Does Patient Smoke tobacco or other No substances Smoking Status Never smoker Is Patient Diabetic Yes Functional Assessment Recent Decline in Ability to Perform Ambulation Assistive Device With Patient leg braces Culture/Congregation/Oven Stripper Cultural/Congregation Needs that may affect No Treatment Plan Would you allow our hospital selector packer to No meet you for the purpose of spiritual/ emotional support? Oven Stripper to contact place of roman catholic No Teaching: Wound Center *Welcome to the Wound Center -Person Taught Patient -Teaching Method Discussion -Response to teaching Verbalize understanding 04/17/22 04/24/22 09:32 09:49 WC - Today's Visit Information Type of service Follow-up Visit Follow-up Visit (Physician/DIRECTOR OF PHYSICAL THERAPY (Physician/DIRECTOR OF PHYSICAL THERAPY ) ) Arrival Mode Wheelchair Wheelchair Transfer Assistance Other Manual Transfer Assist (Other) DAD TRANSFERS nurse Accompanied by Patient Identification Verified (Name & Yes Yes ) Patient Requires Transmission-Based No No Precautions Safety Precautions NA Height and Weight Height Weight Weight in Pounds Body Mass Index (BMI) 23.2 23.2 BMI Classification Normal Normal BSA - Eileen Vital Signs Temperature (97.8 F-99.1 F) 96.9 F L 95.9 F L Temperature Source Temporal Temporal Pulse Rate (60-100) 125 H 143 H Pulse Location Monitor Apical Respiratory Rate (12-18) 16 Respiratory rate source Observation Oxygen Delivery Method Room Air Blood Pressure (90/60-120/80) 130/90 H 104/74 Blood Pressure Mean (mm Hg) 103 84 Source Monitor Monitor Position Sitting Blood Pressure Location Left Arm History Since Last Visit- (Skip if this is Patient's initial visit) Have you changed medications since your No No last visit? Any new allergies or adverse reactions No No Had a fall/change in ADL's that may No No increase risk of falls Signs or symptoms of abuse and/or No No neglect since last visit Have you been in the hospital since your No No last visit? Has dressing in place as prescribed Yes Yes Has compression in place as prescribed Yes Yes Has offloadiing in place as prescribed N/A N/A Experienced any changes in pain level or No No management Left Footwear Slipper Right Footwear Slipper Other Footwear Pain Scale: 0-10 Numeric Is Patient Pain Free? Yes No Lower Extremity Assessment/ Foot Assessment/ Toe Nail Assessment Right -Posterior Tibial Palpable -Dorsalis Pedis Palpable -Extremity Color -Hair Growth on Legs -Hair Growth on Toes -Temperature of Extremity -Capillary Refill -Dependent Rubor -Blanched when Elevated -Lipodermatosclerosis -Other Deformity -Prior Foot Ulcer -Charcot Joint -Prior Amputation -Thick -Discolored -Deformed -Improper Length & Hygeine Neuropathy Assessment Feet - Top Side and Bottom Communication Assessment Preferred wellness coordinator Required Able to Read Able to Write Caregiver Communication Skills Impairment Right Hearing Abillity Left Hearing Abillity Visual Assistive Devices Teaching Assessment Preferences Barriers to Learning Readiness To Learn Willingness to Engage in Self Management Activies Readiness to Engage in Self Management Activities Anxiety Level Cooperation Perception Interest in Health Problem Education Importance Does Patient Smoke tobacco or other substances Smoking Status Is Patient Diabetic Functional Assessment Recent Decline in Ability to Perform Assistive Device With Patient Culture/Congregation/Oven Stripper Cultural/Congregation Needs that may affect Treatment Plan Would you allow our hospital selector packer to meet you for the purpose of spiritual/ emotional support? Oven Stripper to contact place of roman catholic Teaching: Wound Center *Welcome to the Wound Center -Person Taught -Teaching Method -Response to teaching (a) 1 - + throughout WC - Nurse 1 - General Ulcer Measurement Start: 04/05/22 10:15 Freq: Status: Active Protocol: Activity Type Activity Date Activity User E-sign Co-sign Detail Recorded Client Recorded Date Recorded By Document 04/05/22 10:47 RB [id number] 04/05/22 10:55 RB Document 04/10/22 10:42 DL [id number] 04/10/22 10:50 DL Document 04/12/22 13:03 [facility] [id number] 04/12/22 13:13 BMF Document 04/17/22 09:32 [facility] [id number] 04/17/22 09:42 BMF Document 04/24/22 09:49 AK [id number] 04/24/22 09:51 AK 04/05/22 04/10/22 04/12/22 10:47 10:42 13:03 Wound Center Nurse 1 1. RLE -Combined with other wound No No -Current Size (cm) - Length 0.1 5 6.8 -Current Size (cm) - Width 0.1 5.7 6.8 -Current Size (cm) - Depth 0.1 0.1 0.1 -Total Square Cm 0.01 28.5 46.24 -Date of Last Picture (Recall this 04/12/22 field) -Photo Taken Yes Yes Yes -Epithelialization None Present -Tunneling No No -Undermining/Tunneling No No -Circular Undermining No No -Change in Wound Grade/Stage -Exudate Amt None Present Medium Large -Exudate Type Serosanguineous Serosanguineous -Wound Margin Distinct, Distinct, Distinct, Outline Outline Outline Attached Attached Attached -Granulation Amt Medium (34-66%) Small (1-33%) Medium (34-66%) -Granulation Quality Falman Red Red -Slough/Fibrin Yes -Necrosis Amt Medium (34-66%) Large (67-100%) Medium (34-66%) -Necrotic Tissue Type Adherent Slough Adherent Slough Eschar -Structure Exposed N/A N/A -Texture (Brianna-wound Skin Appearance) Assessed Localized Edema Assessed, ,Scarring Fluctuance -Moisture (Brianna-wound Skin Appearance) Assessed No Abnormality Assessed -Color (Brianna-wound Skin Appearance) Erythema Erythema Assessed, Erythema -Temperature (Brianna-wound Skin No Abnormality No Abnormality No Abnormality Appearance) (Pt Warm) (Pt Warm) (Pt Warm) -Tenderness on Palpation (Brianna-wound No Yes Yes Skin Appearance) -Ulcer Cleansing Wound Cleanser Rinsed/ Soap and Water Irrigated with Saline -Foul Odor after Cleansing No No No -Anesthetic Used 4% Lidocaine 5% Lidocaine 5% Lidocaine Solution Gel Gel Lower Limb Edema Present Yes Yes Right Calf (cm) 27.5 26 Right Ankle (cm) 19.5 18 Left Calf (cm) 26 Left Ankle (cm) 19 04/17/22 04/24/22 09:32 09:49 Wound Center Nurse 1 1. RLE -Combined with other wound No No -Current Size (cm) - Length 6.8 7 -Current Size (cm) - Width 7.2 6.6 -Current Size (cm) - Depth 0.1 0.3 -Total Square Cm 48.96 46.2 -Date of Last Picture (Recall this 04/17/22 field) -Photo Taken Yes No -Epithelialization None Present -Tunneling No No -Undermining/Tunneling No No -Circular Undermining No No -Change in Wound Grade/Stage No -Exudate Amt Large Large -Exudate Type Serosanguineous Serosanguineous -Wound Margin Flat & Intact Distinct, Outline Attached -Granulation Amt Large (67-100%) Large (67-100%) -Granulation Quality Red Red -Slough/Fibrin Yes No -Necrosis Amt Small (1-33%) None Present (0 %) -Necrotic Tissue Type Adherent Slough -Structure Exposed N/A -Texture (Brianna-wound Skin Appearance) Assessed, No Abnormality, Scarring Assessed -Moisture (Brianna-wound Skin Appearance) Assessed No Abnormality, Assessed -Color (Brianna-wound Skin Appearance) Assessed No Abnormality, Assessed -Temperature (Brianna-wound Skin No Abnormality No Abnormality Appearance) (Pt Warm) (Pt Warm) -Tenderness on Palpation (Brianna-wound No No Skin Appearance) -Ulcer Cleansing Soap and Water Rinsed/ Irrigated with Saline -Foul Odor after Cleansing No No -Anesthetic Used 4% Lidocaine 4% Lidocaine Solution Solution Lower Limb Edema Present Yes Right Calf (cm) 26 26 Right Ankle (cm) 18.5 19.5 Left Calf (cm) Left Ankle (cm) WC - Nurse 2 - General Ulcer CM Notes Start: 04/05/22 10:15 Freq: Status: Active Protocol: Activity Type Activity Date Activity User E-sign Co-sign Detail Recorded Client Recorded Date Recorded By Document 04/05/22 11:11 [id number] 04/05/22 11:21 MW Document 04/10/22 11:08 [id number] 04/10/22 11:18 Edit Result 04/10/22 11:08 ELISABETH (1) [id number] 04/14/22 08:15 PL Document 04/17/22 10:00 [id number] 04/17/22 10:06 JF Document 04/24/22 09:45 JF [id number] 04/24/22 09:50 JF (1) 1. RLE - Type of Procedure Debridement => Biopsy - Clinical Debridement Subcutaneous => - Tissue Removed Subcutaneous => - Debridement, SubQ, ea addt'l 20sq cm 2 => or part thereof - I&D / Paring / Biopsy => Tangential bx skin => (eg:shave,scoop, => saucerize,curette) => , single lesion 04/05/22 04/10/22 04/17/22 11:11 11:08 10:00 Wound Center Nurse 2 1. RLE -Time 11:12 11:09 10:00 -Correct Patient Yes Yes Yes -Correct Side, Site, Position Yes Yes Yes -Correct Procedure Yes Yes Yes -Procedure Performed Yes Yes Yes -Type of Procedure Debridement Biopsy Debridement -Clinical Debridement Epidermis / Subcutaneous Dermis -Tissue Removed Epidermis Subcutaneous -Post Debridement (cm) - Length 1.0 6.2 7.5 -Post Debridement (cm) - Width 1.0 6.8 6.8 -Post Debridement (cm) - Depth 0.2 0.2 1.1 -Total Square (Post) (cm) 1.00 42.16 51.00 -Area of Debridement (cm) - Length 1.0 6.2 7.5 -Area of Debridement (cm) - Width 1.0 6.8 6.8 -Total Square (Area) (cm) 1.00 42.16 51.00 -Tunneling Yes No No -Undermining/Tunneling Yes No No -Circular Undermining Yes No No -Wound/Ulcer Outcome Not Healed Not Healed Not Healed -Ulcer Cleansing Wound Cleanser Rinsed/ Rinsed/ Irrigated with Irrigated with Saline Saline -Foul Odor after Cleansing No No No -Bioengineered Tissue No No No -Bleeding Controlled with Pressure Pressure Pressure -Treatment Response Procedure Procedure Procedure Tolerated Well Tolerated Well Tolerated Well -Offloading No No No -Debridement - Open, 1st 20sq cm Yes -Debridement - Subq, 1st 20sq cm Yes Yes -Debridement, SubQ, ea addt'l 20sq cm 2 or part thereof -I&D / Paring / Biopsy Tangential bx skin (eg:shave, scoop, saucerize, curette), single lesion Pain Scale: 0-10 Numeric Is Patient Pain Free? Yes Yes Yes 04/24/22 09:45 Wound Center Nurse 2 1. RLE -Time 09:45 -Correct Patient Yes -Correct Side, Site, Position Yes -Correct Procedure Yes -Procedure Performed Yes -Type of Procedure Debridement -Clinical Debridement Subcutaneous -Tissue Removed Subcutaneous -Post Debridement (cm) - Length 7.4 -Post Debridement (cm) - Width 5.6 -Post Debridement (cm) - Depth 0.6 -Total Square (Post) (cm) 41.44 -Area of Debridement (cm) - Length 7.4 -Area of Debridement (cm) - Width 5.6 -Total Square (Area) (cm) 41.44 -Tunneling No -Undermining/Tunneling No -Circular Undermining No -Wound/Ulcer Outcome Not Healed -Ulcer Cleansing Rinsed/ Irrigated with Saline -Foul Odor after Cleansing No -Bioengineered Tissue No -Bleeding Controlled with Pressure -Treatment Response Procedure Tolerated Well -Offloading No -Debridement - Open, 1st 20sq cm -Debridement - Subq, 1st 20sq cm Yes -Debridement, SubQ, ea addt'l 20sq cm 2 or part thereof -I&D / Paring / Biopsy Pain Scale: 0-10 Numeric Is Patient Pain Free? Yes WC - Nurse 3 - General Ulcer D/C NN Start: 04/05/22 10:15 Freq: Status: Active Protocol: Activity Type Activity Date Activity User E-sign Co-sign Detail Recorded Client Recorded Date Recorded By Document 04/05/22 11:32 RB [id number] 04/05/22 11:33 RB Document 04/10/22 11:42 AK [id number] 04/10/22 11:44 AK Document 04/12/22 14:03 [facility] [id number] 04/12/22 14:05 [facility] Document 04/17/22 10:16 [facility] [id number] 04/17/22 10:17 [facility] Document 04/24/22 09:57 KR [id number] 04/24/22 09:58 KR 04/05/22 04/10/22 04/12/22 11:32 11:42 14:03 Wound Care Nurse 3 1. RLE -Ulcer Cleansing Rinsed/ Rinsed/ Soap and Water Irrigated with Irrigated with Saline Saline -Foul Odor after Cleansing No No -Negative Pressure Wound Therapy N/A -Primary Dressing Applied Promogran Hysept ($) Lilibeth Matter -Other Dressing ABD DAKINS MOIST GAUZE -Primary Dressing Covered/Secured with Dry Gauze,Dry Dry Gauze & Dry Gauze & Gauze & Roll Roll Gauze, Roll Gauze, Gauze,Secured Secured with Secured with with Tape Tape Tape -Other Covering DRSG PER DL MUSEUM EXHIBIT TECHNICIAN -Promogran Lilibeth Matter 1 Right -Tubular Bandage Single Layer Single Layer Single Layer -Size of Tubigrip Used Size C Size C Size C -Size C ($) 1 1 1 -Size D ($) Treatment Response Procedure Procedure Tolerated Well Tolerated Well Pain Scale: 0-10 Numeric Is Patient Pain Free? Yes No Yes WC - Visit Discharge Discharge Condition Stable Stable Stable Ambulatory Status Ambulatory Wheelchair Wheelchair Transportation Private Auto Private Auto Private Auto Accompanied by parents MOM AND DAD Medication Reconcilliation completed & Yes Yes provided to patient/care provider Clinical Summary of Care Provided Yes 04/17/22 04/24/22 10:16 09:57 Wound Care Nurse 3 1. RLE -Ulcer Cleansing Rinsed/ Rinsed/ Irrigated with Irrigated with Saline Saline -Foul Odor after Cleansing No -Negative Pressure Wound Therapy -Primary Dressing Applied -Other Dressing DAKINS MOIST TO dakins DRY PER [place] MUSEUM EXHIBIT TECHNICIAN -Primary Dressing Covered/Secured with Dry Gauze & Dry Gauze, Roll Gauze, Secured with Secured with Tape Tape -Other Covering -Promogran Lilibeth Matter Right -Tubular Bandage Single Layer -Size of Tubigrip Used Size D -Size C ($) -Size D ($) 1 Treatment Response Procedure Tolerated Well Pain Scale: 0-10 Numeric Is Patient Pain Free? Yes Yes WC - Visit Discharge Discharge Condition Stable Stable Ambulatory Status Wheelchair Wheelchair Transportation Private Auto Private Auto Accompanied by DAD AND MOM Medication Reconcilliation completed & provided to patient/care provider Clinical Summary of Care Provided Assessment/Plan Assessment/Plan (1) Unspecified open wound, right lower leg, initial encounter: CODE(S): S81.801A - Unspecified open wound, right lower leg, initial encounter (2) Breast cancer, left breast: CODE(S): C50.912 - Malignant neoplasm of unspecified site of left female breast (3) Braces as ambulation aid: CODE(S): Z97.8 - Presence of other specified devices (4) Pyoderma gangrenosum: CODE(S): L88 - Pyoderma gangrenosum PLAN: Plan Patient evaluated today at the wound center. Wound care - Dakins 0.25% moistened gauze covered with ABD twice daily. Increasing to twice daily because Bere is complaining about the gauze drying and becoming painful against the wound when changing the dressing only once per day. Tubigrip for compression. Wound culture from 04/05/22 showed no bacterial growth. Punch biopsy x 2 from 04/12/22 showed acute and chronic inflammation with extensive ulceration. Correlation with clinical findings and appropriate follow up are necessary to rule out pyoderma grangrenosum. Completed Doxycycline. She received her Chemotherapy 04/18/22. I am going to continue to use Dakins 0.25% moistened gauze for wound care for now, to help decrease the infection risk since she is receiving chemotherapy and to help with the depth of the wound where the biopsies were obtained. Eventually will treat with a topical steroid to this wound (such as Clobetasol propionate 0.05%), because clinically it looks like Pyoderma Grangrenosum, and this would be first line treatment. Bere will trial wearing her braces with a thick ABD pad covering the wound to see how the brace presses against the wound. She states she mentally is starting to struggle with how dependent she is on her parents because she is not able to transfer herself for basic self care. Follow up one week. Call or come in sooner if develop any concerns.
== END 2022-04-26 23:59 | disposition home or self-care (01) ==
LOC: WC 09:30
PROVIDERS: PCP Family Medicine; Visit Provider Nurse Practitioner Family
DX: S81.801A Unspecified open wound, right lower leg, initial encounter (principal); E11.622 Type 2 diabetes mellitus with other skin ulcer; E11.40 Type 2 diabetes mellitus with diabetic neuropathy, unspecified; C50.912 Malignant neoplasm of unspecified site of left female breast; E87.6 Hypokalemia; Z80.3 Family history of malignant neoplasm of breast; Z92.21 Personal history of antineoplastic chemotherapy; R60.0 Localized edema; Z97.8 Presence of other specified devices; L88 Pyoderma gangrenosum
CPT/HCPCS: 11042; 11045; 11102; 87070; 87075; 87205; 88305; 88312; 97597; 99213; G0463

== ENCOUNTER 2022-04-27 17:05 | Outpatient (CLI) | payer OTHER, SELFPAY ==
[2022-04-27] MEDS: KCL 20MEQ in 0.9% NS 20 MEQ/1,000 ML IV.SOLN. 500 MEQ IV (18:25)
[2022-04-27 21:13] VITALS: BP 114/73; PULSE 118; RESP 20; TEMP 36.3; O2SAT 100
[2022-04-27] MEDS: 0.9% NaCl VAD Flush IV (21:15)
--- NOTE | 2022-04-27 21:20 | NURSING ---
IV infusion completed, Port flushed with NS and heparinized saline per policy. pt provided with mask at this time, sterile gloves applied by this RN. port deaccessed, bandaide applied. pt assisted to sitting position at edge of bed. per pt request her mother transferred her to wheelchair. alicia saeed provided per pt request. pt noted with jacket and purse with mother to exit at this time. pt/ mother denied farther needs at this time. no distress noted.
== END 2022-04-27 21:20 | disposition home or self-care (01) ==
LOC: PCUOUT 17:06 → PCU 17:07
PROVIDERS: PCP Family Medicine; Visit Provider Nurse Practitioner Family
DX: E86.0 Dehydration (principal); E87.6 Hypokalemia
CPT/HCPCS: 96365; 96366; 36591; 80048; 83735; A4216

== ENCOUNTER 2022-05-15 09:30 | Outpatient (RCR) | payer OTHER, SELFPAY ==
[2022-04-27 00:40] VITALS: BP 104/74; PULSE 143; RESP 16; TEMP 35.5; BMI 23.2
[2022-05-01 09:44] VITALS: BP 143/72; PULSE 69; TEMP 36.1; BMI 23.2
--- NOTE | 2022-05-01 12:34 | PCM.WC.PN ---
History of Present Illness Date of Service: 05/01/22 Chief Complaint: Right medial lower leg spider bite History of Wound: 41 year old female presents for evaluation of spider bite to her right medial leg. She states she was sleeping at her father's house and there was a spider in the bedroom where she was sleeping. It occurred several days ago. She also has been out in the [place] with her dog, but denies being bit by any ticks. She was seen in oncology on recently for follow up for her left breast invasive ductal carcinoma which she was diagnosed in 01/16. She has received two rounds of chemotherapy. This spider bite was observed during that visit and the patient was referred to the wound center. Patient has been receiving potassium infusions. She also has a history of MD, which she wears braces on her legs. The area of the wound is under where the brace meets her skin. Pathology from punch biopsy x 2 on 04/12/22. Right leg superior biopsy (specimen A) showed extensive ulceration and acute and chronic inflammation, negative for malignancy. Inflammation involves full thickness of dermis and superficial adipose tissue. Right leg inferior biopsy (specimen B) showed acute and chronic inflammation, negative for malignancy. Inflammation involves deeper dermis and superficial adipose tissue. A&B Special stains for acid fast bacilli and fungi are negative for organisms. Correlation with clinical findings and appropriate follow up are necessary to rule out pyoderma grangrenosum Patient denies fever, chills, nausea or vomiting. Progress of Wound: Right medial leg wound bed is beefy pink, stable. The punch biopsy sites are decreasing in depth. Objective Data Objective Data Vital Signs: Vital Signs Temp Pulse Resp BP 96.9 F L 69 16 143/72 H 05/01/22 09:44 05/01/22 09:44 04/27/22 00:40 05/01/22 09:44 Weight: 100 lb Body Mass Index (BMI) 23.2 Charges/Coding Procedures Integumentary 111xxx-113xx: 99560 Archana subq tissue 20 sq cm/< Add On Codes: 63946 Archana subq tissue add-on (x2) Debridement Note Debridement Note Wound debrided: medial leg wound Laterality: Right Wound Grade/Stage: Stage II Type of Debridement: Excisional debridement Anesthesia Used: 5% Lidocaine Gel Depth: Down to and including healthy tissue and in the subcutaneous layer Percentage of wound debrided: 100 Instrument Used: 7mm curette Tissue Removed: Non viable tissue and slough Severity: Fat Layer Exposed Amount of bleeding with debridement: None Bleeding Controlled with: Pressure and Compression and gauze Patient tolerated procedure: Patient tolerated procedure well Debridement Free Text: Light debridement to remove nonviable tissue and slough. Post-Debridement Measurements and Additional Note: Post-Debridement Measurements/Treatment - Nurse 1 - General Ulcer Assessment Start: 05/01/22 09:43 Freq: Status: Active Protocol: GWEN Activity Type Activity Date Activity User E-sign Co-sign Detail Recorded Client Recorded Date Recorded By Document 05/01/22 09:44 ANIYAH [id number] 05/01/22 09:54 ANIYAH 05/01/22 09:44 WC - Today's Visit Information Type of service Follow-up Visit (Physician/HY[employer]OE[employer]ANT [employer]URAL ENGINEER ) Arrival Mode Wheelchair Patient Identification Verified (Name & Yes ) Patient Requires Transmission-Based No Precautions Safety Precautions NA Height and Weight Body Mass Index (BMI) 23.2 BMI Classification Normal Vital Signs Temperature (97.8 F-99.1 F) 96.9 F L Temperature Source Temporal Pulse Rate (60-100) 69 Pulse Location Monitor Blood Pressure (90/60-120/80) 143/72 H Blood Pressure Mean (mm Hg) 95 Source Monitor History Since Last Visit- (Skip if this is Patient's initial visit) Have you changed medications since your No last visit? Any new allergies or adverse reactions No Had a fall/change in ADL's that may No increase risk of falls Signs or symptoms of abuse and/or No neglect since last visit Have you been in the hospital since your No last visit? Has dressing in place as prescribed Yes Has compression in place as prescribed Yes Has offloadiing in place as prescribed N/A Experienced any changes in pain level or No management Left Footwear Slipper Right Footwear Slipper Pain Scale: 0-10 Numeric Is Patient Pain Free? Yes - Nurse 1 - General Ulcer Measurement Start: 05/01/22 09:43 Freq: Status: Active Protocol: Activity Type Activity Date Activity User E-sign Co-sign Detail Recorded Client Recorded Date Recorded By Document 05/01/22 09:44 ANIYAH [id number] 05/01/22 09:54 ANIYAH 05/01/22 09:44 Wound Center Nurse 1 1. RLE -Combined with other wound No -Current Size (cm) - Length 7.6 -Current Size (cm) - Width 6.2 -Current Size (cm) - Depth 0.1 -Total Square Cm 47.12 -Photo Taken Yes -Exudate Amt Medium -Exudate Type Serosanguineous -Wound Margin Distinct, Outline Attached -Granulation Amt Medium (34-66%) -Granulation Quality Red -Necrosis Amt Medium (34-66%) -Necrotic Tissue Type Adherent Slough -Structure Exposed N/A -Texture (Brianna-wound Skin Appearance) Scarring -Moisture (Brianna-wound Skin Appearance) No Abnormality -Color (Brianna-wound Skin Appearance) No Abnormality -Temperature (Brianna-wound Skin No Abnormality Appearance) (Pt Warm) -Ulcer Cleansing Soap and Water -Foul Odor after Cleansing No -Anesthetic Used 5% Lidocaine Gel EWELINA - Nurse 2 - General Ulcer CM Notes Start: 05/01/22 09:43 Freq: Status: Active Protocol: Activity Type Activity Date Activity User E-sign Co-sign Detail Recorded Client Recorded Date Recorded By Document 05/01/22 10:08 ELISABETH [id number] 05/01/22 10:17 ELISABETH 05/01/22 10:08 Wound Center Nurse 2 -Time 10:09 -Correct Patient Yes -Correct Side, Site, Position Yes -Correct Procedure Yes -Procedure Performed Yes -Type of Procedure Debridement -Clinical Debridement Subcutaneous -Tissue Removed Subcutaneous -Post Debridement (cm) - Length 7.5 -Post Debridement (cm) - Width 5.8 -Post Debridement (cm) - Depth 0.4 -Total Square (Post) (cm) 43.50 -Area of Debridement (cm) - Length 7.5 -Area of Debridement (cm) - Width 5.8 -Total Square (Area) (cm) 43.50 -Tunneling No -Undermining/Tunneling No -Circular Undermining No -Wound/Ulcer Outcome Not Healed -Ulcer Cleansing Rinsed/ Irrigated with Saline -Foul Odor after Cleansing No -Bioengineered Tissue No -Bleeding Controlled with Pressure -Treatment Response Procedure Tolerated Well -Offloading No -Debridement - Subq, 1st 20sq cm Yes -Debridement, SubQ, ea addt'l 20sq cm 2 or part thereof Pain Scale: 0-10 Numeric Is Patient Pain Free? Yes EWELINA - Nurse 3 - General Ulcer D/C NN Start: 05/01/22 09:43 Freq: Status: Active Protocol: Activity Type Activity Date Activity User E-sign Co-sign Detail Recorded Client Recorded Date Recorded By Document 05/01/22 10:34 DL [id number] 05/01/22 10:34 DL 05/01/22 10:34 Wound Care Nurse 3 1. RLE -Ulcer Cleansing Rinsed/ Irrigated with Saline -Foul Odor after Cleansing No -Other Dressing dakins -Primary Dressing Covered/Secured with Dry Gauze & Roll Gauze, Secured with Tape Right -Tubular Bandage Single Layer -Size of Tubigrip Used Size D -Size D ($) 1 Treatment Response Procedure Tolerated Well Pain Scale: 0-10 Numeric Is Patient Pain Free? Yes WC - Visit Discharge Discharge Condition Stable Ambulatory Status Wheelchair Transportation Private Auto Assessment/Plan Assessment/Plan (1) Unspecified open wound, right lower leg, initial encounter: CODE(S): S81.801A - Unspecified open wound, right lower leg, initial encounter (2) Breast cancer, left breast: CODE(S): C50.912 - Malignant neoplasm of unspecified site of left female breast (3) Braces as ambulation aid: CODE(S): Z97.8 - Presence of other specified devices (4) Pyoderma gangrenosum: CODE(S): L88 - Pyoderma gangrenosum PLAN: Plan Patient evaluated today at the wound center. Wound care - Dakins 0.25% moistened gauze covered with ABD twice daily. Tubigrip for compression. Wound culture from 04/05/22 showed no bacterial growth. Punch biopsy x 2 from 04/12/22 showed acute and chronic inflammation with extensive ulceration. Correlation with clinical findings and appropriate follow up are necessary to rule out pyoderma grangrenosum. Completed Doxycycline. She received her Chemotherapy 04/18/22. I am going to continue to use Dakins 0.25% moistened gauze for wound care for now, to help decrease the infection risk since she is receiving chemotherapy and to help with the depth of the wound where the biopsies were obtained. Eventually will treat with a topical steroid to this wound (such as Clobetasol propionate 0.05%), because clinically it looks like Pyoderma Grangrenosum, and this would be first line treatment. She will trial wearing her braces with a thick ABD pad covering the wound to see how the brace presses against the wound. She states she has not tried this yet. Had lengthy discussion about increasing protein intake. Patient states that she has been having difficulty with nausea. When she takes her zofran, it helps with her nausea. She has not tried taking prochlorperazine because she is afraid it will make her sleepy. Instructed her to try taking it when she is nauseated at bed time. Follow up one week. Call or come in sooner if develop any concerns.
--- NOTE | 2022-05-05 10:00 | WC ---
Bere called concerned that she has increase puffiness and redness to her wound site where the biopsy site was obtained. Notified Kathrin Nielsen regarding this and asked patient whether she is continuing to wear her tubigrips. She states she has been at the cancer center everyday this week and has been wearing her tubi's. Also, she did receive a blood transfusion a few days ago. She was concerned about a clot? She doesn't complain of any deep leg pain but more when her dressings have been removed. She's using Dakin's gauze and is not on any antibiotics and hasn't had more increased pain. Explained to her that with the weekend coming, if she notices further discomfort, increase swelling, redness to report to the ER. She verbalizes understanding.
[2022-05-08 09:29] VITALS: BP 129/59; PULSE 69; TEMP 36.6; BMI 23.2
--- NOTE | 2022-05-08 10:08 | PCM.WC.PN ---
History of Present Illness Date of Service: 05/08/22 Chief Complaint: Right medial lower leg spider bite History of Wound: 41 year old female presents for evaluation of spider bite to her right medial leg. She states she was sleeping at her father's house and there was a spider in the bedroom where she was sleeping. It occurred several days ago. She also has been out in the [place] with her dog, but denies being bit by any ticks. She was seen in oncology on recently for follow up for her left breast invasive ductal carcinoma which she was diagnosed in 01/16. She has received two rounds of chemotherapy. This spider bite was observed during that visit and the patient was referred to the wound center. Patient has been receiving potassium infusions. She also has a history of MD, which she wears braces on her legs. The area of the wound is under where the brace meets her skin. Pathology from punch biopsy x 2 on 04/12/22. Right leg superior biopsy (specimen A) showed extensive ulceration and acute and chronic inflammation, negative for malignancy. Inflammation involves full thickness of dermis and superficial adipose tissue. Right leg inferior biopsy (specimen B) showed acute and chronic inflammation, negative for malignancy. Inflammation involves deeper dermis and superficial adipose tissue. A&B Special stains for acid fast bacilli and fungi are negative for organisms. Correlation with clinical findings and appropriate follow up are necessary to rule out pyoderma grangrenosum Patient denies fever, chills, nausea or vomiting. Progress of Wound: Right medial leg wound bed is beefy pink, the punch biopsy site at 12 o'clock has become enlarged with a tunnel and undermining and is very painful. The remaining ulcer is stable and the biopsy site at 6 o'clock is healing well. Objective Data Objective Data Vital Signs: Vital Signs Temp Pulse Resp BP 97.9 F 69 16 129/59 H 05/08/22 09:29 05/08/22 09:29 04/27/22 00:40 05/08/22 09:29 Weight: 100 lb Body Mass Index (BMI) 23.2 Charges/Coding Procedures Integumentary 111xxx-113xx: 09587 Archana subq tissue 20 sq cm/< Add On Codes: 65864 Archana subq tissue add-on (x2) Debridement Note Debridement Note Wound debrided: medial leg wound Laterality: Right Wound Grade/Stage: Stage II Type of Debridement: Excisional debridement Anesthesia Used: 5% Lidocaine Gel Depth: Down to and including healthy tissue and in the subcutaneous layer Percentage of wound debrided: 100 Instrument Used: 7mm curette Tissue Removed: Non viable tissue and slough Severity: Fat Layer Exposed Amount of bleeding with debridement: None Bleeding Controlled with: Pressure and Compression and gauze Patient tolerated procedure: Patient did not tolerate procedure well Debridement Free Text: Light debridement to remove nonviable tissue and slough. Post-Debridement Measurements and Additional Note: Post-Debridement Measurements/Treatment - Nurse 1 - General Ulcer Assessment Start: 05/01/22 09:43 Freq: Status: Active Protocol: [email or web address] Activity Type Activity Date Activity User E-sign Co-sign Detail Recorded Client Recorded Date Recorded By Document 05/01/22 09:44 ANIYAH [id number] 05/01/22 09:54 AK Document 05/08/22 09:29 AL [id number] 05/08/22 09:41 AK 05/01/22 05/08/22 09:44 09:29 - Today's Visit Information Type of service Follow-up Visit Follow-up Visit (Physician/EDUCATION OFFICER (Physician/EDUCATION OFFICER ) ) Arrival Mode Wheelchair Ambulatory Patient Identification Verified (Name & Yes No ) Patient Requires Transmission-Based No No Precautions Safety Precautions NA NA Height and Weight Body Mass Index (BMI) 23.2 23.2 BMI Classification Normal Normal Vital Signs Temperature (97.8 F-99.1 F) 96.9 F L 97.9 F Temperature Source Temporal Temporal Pulse Rate (60-100) 69 69 Pulse Location Monitor Monitor Blood Pressure (90/60-120/80) 143/72 H 129/59 H Blood Pressure Mean (mm Hg) 95 82 Source Monitor Monitor History Since Last Visit- (Skip if this is Patient's initial visit) Have you changed medications since your No No last visit? Any new allergies or adverse reactions No No Had a fall/change in ADL's that may No No increase risk of falls Signs or symptoms of abuse and/or No No neglect since last visit Have you been in the hospital since your No No last visit? Has dressing in place as prescribed Yes Yes Has compression in place as prescribed Yes No Has offloadiing in place as prescribed N/A No Experienced any changes in pain level or No No management Left Footwear Slipper Right Footwear Slipper Pain Scale: 0-10 Numeric Is Patient Pain Free? Yes No WC - Nurse 1 - General Ulcer Measurement Start: 05/01/22 09:43 Freq: Status: Active Protocol: Activity Type Activity Date Activity User E-sign Co-sign Detail Recorded Client Recorded Date Recorded By Document 05/01/22 09:44 ANIYAH [id number] 05/01/22 09:54 AK Document 05/08/22 09:29 AL [id number] 05/08/22 09:41 AK 05/01/22 05/08/22 09:44 09:29 Wound Center Nurse 1 1. RLE -Combined with other wound No No -Current Size (cm) - Length 7.6 8.5 -Current Size (cm) - Width 6.2 6 -Current Size (cm) - Depth 0.1 1.6 -Total Square Cm 47.12 51.0 -Date of Last Picture (Recall this 05/08/22 field) -Photo Taken Yes Yes -Tunneling No -Undermining/Tunneling No -Circular Undermining No -Change in Wound Grade/Stage No -Exudate Amt Medium Large -Exudate Type Serosanguineous Yellow/Green -Wound Margin Distinct, Distinct, Outline Outline Attached Attached -Granulation Amt Medium (34-66%) Medium (34-66%) -Granulation Quality [place] -Slough/Fibrin Yes -Necrosis Amt Medium (34-66%) Medium (34-66%) -Necrotic Tissue Type Adherent Slough Adherent Slough -Structure Exposed N/A N/A -Texture (Brianna-wound Skin Appearance) Scarring No Abnormality, Assessed -Moisture (Brianna-wound Skin Appearance) No Abnormality No Abnormality, Assessed -Color (Brianna-wound Skin Appearance) No Abnormality No Abnormality, Assessed -Temperature (Brianna-wound Skin No Abnormality No Abnormality Appearance) (Pt Warm) (Pt Warm) -Tenderness on Palpation (Brianna-wound No Skin Appearance) -Ulcer Cleansing Soap and Water Rinsed/ Irrigated with Saline -Foul Odor after Cleansing No No -Anesthetic Used 5% Lidocaine 5% Lidocaine Gel Gel -Wound Comment(s) wound bed is mushy where the biopsy was taken. the original wound looks pink with nice margins WC - Nurse 2 - General Ulcer CM Notes Start: 05/01/22 09:43 Freq: Status: Active Protocol: Activity Type Activity Date Activity User E-sign Co-sign Detail Recorded Client Recorded Date Recorded By Document 05/01/22 10:08 JF [id number] 05/01/22 10:17 Document 05/08/22 09:54 AK [id number] 05/08/22 09:58 AK 05/01/22 05/08/22 10:08 09:54 Wound Center Nurse 2 1. RLE -Time 10:09 09:55 -Correct Patient Yes Yes -Correct Side, Site, Position Yes Yes -Correct Procedure Yes Yes -Procedure Performed Yes Yes -Type of Procedure Debridement Debridement -Clinical Debridement Subcutaneous Subcutaneous -Tissue Removed Subcutaneous Subcutaneous -Post Debridement (cm) - Length 7.5 7.5 -Post Debridement (cm) - Width 5.8 6.5 -Post Debridement (cm) - Depth 0.4 1.5 -Total Square (Post) (cm) 43.50 48.75 -Area of Debridement (cm) - Length 7.5 7.5 -Area of Debridement (cm) - Width 5.8 6.5 -Total Square (Area) (cm) 43.50 48.75 -Tunneling No Yes -Tunneling Position (O'clock) 12 -Tunneling Distance (cm) 0.8 -Undermining/Tunneling No No -Circular Undermining No No -Wound/Ulcer Outcome Not Healed Not Healed -Ulcer Cleansing Rinsed/ Rinsed/ Irrigated with Irrigated with Saline Saline -Foul Odor after Cleansing No No -Bioengineered Tissue No No -Bleeding Controlled with Pressure Pressure -Treatment Response Procedure Procedure Tolerated Well Tolerated Well -Offloading No No -Debridement - Subq, 1st 20sq cm Yes Yes -Debridement, SubQ, ea addt'l 20sq cm 2 2 or part thereof Pain Scale: 0-10 Numeric Is Patient Pain Free? Yes Yes WC - Nurse 3 - General Ulcer D/C NN Start: 05/01/22 09:43 Freq: Status: Active Protocol: Activity Type Activity Date Activity User E-sign Co-sign Detail Recorded Client Recorded Date Recorded By Document 05/01/22 10:34 DL [id number] 05/01/22 10:34 DL 05/01/22 10:34 Wound Care Nurse 3 1. RLE -Ulcer Cleansing Rinsed/ Irrigated with Saline -Foul Odor after Cleansing No -Other Dressing dakins -Primary Dressing Covered/Secured with Dry Gauze & Roll Gauze, Secured with Tape Right -Tubular Bandage Single Layer -Size of Tubigrip Used Size D -Size D ($) 1 Treatment Response Procedure Tolerated Well Pain Scale: 0-10 Numeric Is Patient Pain Free? Yes WC - Visit Discharge Discharge Condition Stable Ambulatory Status Wheelchair Transportation Private Auto Assessment/Plan Assessment/Plan (1) Unspecified open wound, right lower leg, initial encounter: CODE(S): S81.801A - Unspecified open wound, right lower leg, initial encounter (2) Breast cancer, left breast: CODE(S): C50.912 - Malignant neoplasm of unspecified site of left female breast (3) Braces as ambulation aid: CODE(S): Z97.8 - Presence of other specified devices (4) Pyoderma gangrenosum: CODE(S): L88 - Pyoderma gangrenosum PLAN: Plan Patient evaluated today at the wound center. Wound care - Dakins 0.25% moistened gauze covered with ABD daily. Make sure to pack gauze into the undermining/tunnel area at 12 o'clock. Tubigrip for compression. A wound culture was obtained today.? A positive culture will necessitate antibiotic therapy. Wound culture from 04/05/22 showed no bacterial growth. Punch biopsy x 2 from 04/12/22 showed acute and chronic inflammation with extensive ulceration. Correlation with clinical findings and appropriate follow up are necessary to rule out pyoderma grangrenosum. Completed Doxycycline. She is to receive her next dose of Chemotherapy tomorrow and she is concerned that with her ulcer worsening, they will cancel it. I phoned over the [facility] and spoke with a nurse who asked Dr. Perez about her chemo and he stated that she should be able to receive that dose tomorrow. I am going to continue to use Dakins 0.25% moistened gauze for wound care for now, to help decrease the infection risk since she is receiving chemotherapy and to help with the depth of the wound where the biopsies were obtained. Eventually will treat with a topical steroid to this wound (such as Clobetasol propionate 0.05%), because clinically it looks like Pyoderma Grangrenosum, and this would be first line treatment. She has not tried wearing her braces with a thick ABD pad covering the wound to see how the brace presses against the wound. Had lengthy discussion about increasing protein intake. Patient states that she has been having difficulty with nausea. She has spoken with her other provider about her nausea and they are going to start her on a scopolamine patch when she receives chemotherapy to see if this will help control her nausea. Follow up one week. Call or come in sooner if develop any concerns.
--- NOTE | 2022-05-09 15:33 | WC ---
Called and spoke to Bere regarding about Kathrin speaking to oncologist and starting her on Doxycycline knowing that her wound cultures are pending since she has a suppressed immune system. Patient was told to take her ATB with food and it will be called into [facility] pharmacy. Patient was told that her ATB might have to be changed pending her wound culture results but to start the Doxycycline now. She verbalized understanding.
[2022-05-15 09:35] VITALS: BP 111/77; PULSE 145; TEMP 36.2; BMI 23.2
--- NOTE | 2022-05-15 11:17 | PCM.WC.PN ---
History of Present Illness Date of Service: 05/15/22 Chief Complaint: Right medial lower leg spider bite History of Wound: 41 year old female presents for evaluation of spider bite to her right medial leg. She states she was sleeping at her father's house and there was a spider in the bedroom where she was sleeping. It occurred several days ago. She also has been out in the [place] with her dog, but denies being bit by any ticks. She was seen in oncology on recently for follow up for her left breast invasive ductal carcinoma which she was diagnosed in 01/16. She has received two rounds of chemotherapy. This spider bite was observed during that visit and the patient was referred to the wound center. Patient has been receiving potassium infusions. She also has a history of MD, which she wears braces on her legs. The area of the wound is under where the brace meets her skin. Pathology from punch biopsy x 2 on 04/12/22. Right leg superior biopsy (specimen A) showed extensive ulceration and acute and chronic inflammation, negative for malignancy. Inflammation involves full thickness of dermis and superficial adipose tissue. Right leg inferior biopsy (specimen B) showed acute and chronic inflammation, negative for malignancy. Inflammation involves deeper dermis and superficial adipose tissue. A&B Special stains for acid fast bacilli and fungi are negative for organisms. Correlation with clinical findings and appropriate follow up are necessary to rule out pyoderma grangrenosum Right medial leg wound culture positive for Klebsiella pneumoniae which is sensitive to Levaquin. Patient denies fever, chills, vomiting. She almost always is nauseous. Her appetite is very poor, her father states she is hardly eating anything. Progress of Wound: Right medial leg ulcer bed is beefy pink, the punch biopsy site at 12 o'clock has non viable miller tissue covering the tunnel area. The remaining ulcer is smaller in size with a beefy pink wound bed, the biopsy site at 6 o'clock is healing well. She is complaining that the ulcer is burning for several hours after the dressing is changes. Objective Data Objective Data Vital Signs: Vital Signs Temp Pulse Resp BP 97.2 F L 145 H 16 111/77 05/15/22 09:35 05/15/22 09:35 04/27/22 00:40 05/15/22 09:35 Weight: 100 lb Body Mass Index (BMI) 23.2 Lab / Micro Data Micro: Microbiology 05/08/22 09:50 Tissue Ulcer - Leg Gram Stain - Final 05/08/22 09:50 Tissue Ulcer - Leg Wound Culture - Final Klebsiella pneumoniae sp pneum 05/08/22 09:50 Tissue Ulcer - Leg Anaerobic Culture - Final No anaerobic bacteria isolated. Charges/Coding Procedures Integumentary 111xxx-113xx: [id number] Archana subq tissue 20 sq cm/< Add On Codes: 28217 Archana subq tissue add-on (x2) Debridement Note Debridement Note Wound debrided: medial leg ulcer Laterality: Right Wound Grade/Stage: Stage II Type of Debridement: Excisional debridement Anesthesia Used: 5% Lidocaine Gel and Cetacaine Depth: Down to and including healthy tissue and in the subcutaneous layer Percentage of wound debrided: 100 Instrument Used: 5mm curette and - (Scissors and pickups) Tissue Removed: Devitalized tissue and slough Severity: Fat Layer Exposed Amount of bleeding with debridement: Mild Bleeding Controlled with: Pressure and Compression and gauze Patient tolerated procedure: Patient tolerated procedure well Post-Debridement Measurements and Additional Note: Post-Debridement Measurements/Treatment - Nurse 1 - General Ulcer Assessment Start: 05/01/22 09:43 Freq: Status: Active Protocol: GWEN Activity Type Activity Date Activity User E-sign Co-sign Detail Recorded Client Recorded Date Recorded By Document 05/01/22 09:44 WI [id number] 05/01/22 09:54 WI Document 05/08/22 09:29 WI [id number] 05/08/22 09:41 WI Document 05/15/22 09:35 WI [id number] 05/15/22 09:44 WI 05/01/22 05/08/22 05/15/22 09:44 09:29 09:35 - Today's Visit Information Type of service Follow-up Visit Follow-up Visit Follow-up Visit (Physician/COOPERATIVE EXTENSION AGENT (Physician/COOPERATIVE EXTENSION AGENT (Physician/COOPERATIVE EXTENSION AGENT ) ) ) Arrival Mode Wheelchair Ambulatory Wheelchair Patient Identification Verified (Name & Yes No Yes ) Patient Requires Transmission-Based No No No Precautions Safety Precautions NA NA Height and Weight Body Mass Index (BMI) 23.2 23.2 23.2 BMI Classification Normal Normal Normal Vital Signs Temperature (97.8 F-99.1 F) 96.9 F L 97.9 F 97.2 F L Temperature Source Temporal Temporal Temporal Pulse Rate (60-100) 69 69 145 H Pulse Location Monitor Monitor Blood Pressure (90/60-120/80) 143/72 H 129/59 H 111/77 Blood Pressure Mean (mm Hg) 95 82 88 Source Monitor Monitor History Since Last Visit- (Skip if this is Patient's initial visit) Have you changed medications since your No No No last visit? Any new allergies or adverse reactions No No No Had a fall/change in ADL's that may No No No increase risk of falls Signs or symptoms of abuse and/or No No No neglect since last visit Have you been in the hospital since your No No No last visit? Has dressing in place as prescribed Yes Yes Yes Has compression in place as prescribed Yes No Yes Has offloadiing in place as prescribed N/A No N/A Experienced any changes in pain level or No No No management Left Footwear Slipper Slipper Right Footwear Slipper Slipper Pain Scale: 0-10 Numeric Is Patient Pain Free? Yes No No WC - Nurse 1 - General Ulcer Measurement Start: 05/01/22 09:43 Freq: Status: Active Protocol: Activity Type Activity Date Activity User E-sign Co-sign Detail Recorded Client Recorded Date Recorded By Document 05/01/22 09:44 WI [id number] 05/01/22 09:54 WI Document 05/08/22 09:29 AK [id number] 05/08/22 09:41 AK Document 05/15/22 09:35 WI [id number] 05/15/22 09:44 AK 05/01/22 05/08/22 05/15/22 09:44 09:29 09:35 Wound Center Nurse 1 1. RLE -Combined with other wound No No No -Current Size (cm) - Length 7.6 8.5 7.9 -Current Size (cm) - Width 6.2 6 5.9 -Current Size (cm) - Depth 0.1 1.6 1.1 -Total Square Cm 47.12 51.0 46.61 -Date of Last Picture (Recall this 05/08/22 05/15/22 field) -Photo Taken Yes Yes Yes -Tunneling No -Undermining/Tunneling No No -Circular Undermining No No -Change in Wound Grade/Stage No -Exudate Amt Medium Large Medium -Exudate Type Serosanguineous Yellow/Green Serosanguineous -Wound Margin Distinct, Distinct, Distinct, Outline Outline Outline Attached Attached Attached -Granulation Amt Medium (34-66%) Medium (34-66%) Medium (34-66%) -Granulation Quality Red [place],Red -Slough/Fibrin Yes Yes -Necrosis Amt Medium (34-66%) Medium (34-66%) Small (1-33%) -Necrotic Tissue Type Adherent Slough Adherent Slough Eschar -Structure Exposed N/A N/A N/A -Texture (Brianna-wound Skin Appearance) Scarring No Abnormality, No Abnormality, Assessed Assessed -Moisture (Brianna-wound Skin Appearance) No Abnormality No Abnormality, No Abnormality, Assessed Assessed -Color (Brianna-wound Skin Appearance) No Abnormality No Abnormality, No Abnormality, Assessed Assessed -Temperature (Brianna-wound Skin No Abnormality No Abnormality No Abnormality Appearance) (Pt Warm) (Pt Warm) (Pt Warm) -Tenderness on Palpation (Brianna-wound No No Skin Appearance) -Ulcer Cleansing Soap and Water Rinsed/ Soap and Water Irrigated with Saline -Foul Odor after Cleansing No No No -Anesthetic Used 5% Lidocaine 5% Lidocaine 5% Lidocaine Gel Gel Gel -Wound Comment(s) wound bed is mushy where the biopsy was taken. the original wound looks pink with nice margins WC - Nurse 2 - General Ulcer CM Notes Start: 05/01/22 09:43 Freq: Status: Active Protocol: Activity Type Activity Date Activity User E-sign Co-sign Detail Recorded Client Recorded Date Recorded By Document 05/01/22 10:08 [id number] 05/01/22 10:17 Document 05/08/22 09:54 WI [id number] 05/08/22 09:58 AK Document 05/15/22 10:06 [id number] 05/15/22 10:17 05/01/22 05/08/22 05/15/22 10:08 09:54 10:06 Wound Center Nurse 2 1. RLE -Time 10:09 09:55 10:06 -Correct Patient Yes Yes Yes -Correct Side, Site, Position Yes Yes Yes -Correct Procedure Yes Yes Yes -Procedure Performed Yes Yes Yes -Type of Procedure Debridement Debridement Debridement -Clinical Debridement Subcutaneous Subcutaneous Subcutaneous -Tissue Removed Subcutaneous Subcutaneous Subcutaneous -Post Debridement (cm) - Length 7.5 7.5 8.1 -Post Debridement (cm) - Width 5.8 6.5 5.4 -Post Debridement (cm) - Depth 0.4 1.5 1.0 -Total Square (Post) (cm) 43.50 48.75 43.74 -Area of Debridement (cm) - Length 7.5 7.5 8.1 -Area of Debridement (cm) - Width 5.8 6.5 5.4 -Total Square (Area) (cm) 43.50 48.75 43.74 -Tunneling No Yes No -Tunneling Position (O'clock) 12 -Tunneling Distance (cm) 0.8 -Undermining/Tunneling No No No -Circular Undermining No No No -Wound/Ulcer Outcome Not Healed Not Healed Not Healed -Ulcer Cleansing Rinsed/ Rinsed/ Rinsed/ Irrigated with Irrigated with Irrigated with Saline Saline Saline -Foul Odor after Cleansing No No No -Bioengineered Tissue No No No -Bleeding Controlled with Pressure Pressure Pressure -Treatment Response Procedure Procedure Procedure Tolerated Well Tolerated Well Tolerated Well -Offloading No No No -Debridement - Subq, 1st 20sq cm Yes Yes Yes -Debridement, SubQ, ea addt'l 20sq cm 2 2 2 or part thereof Pain Scale: 0-10 Numeric Is Patient Pain Free? Yes Yes Yes WC - Nurse 3 - General Ulcer D/C NN Start: 05/01/22 09:43 Freq: Status: Active Protocol: Activity Type Activity Date Activity User E-sign Co-sign Detail Recorded Client Recorded Date Recorded By Document 05/01/22 10:34 DL [id number] 05/01/22 10:34 DL Document 05/08/22 10:31 AK [id number] 05/08/22 10:32 AK 05/01/22 05/08/22 10:34 10:31 Wound Care Nurse 3 1. RLE -Ulcer Cleansing Rinsed/ Rinsed/ Irrigated with Irrigated with Saline Saline -Foul Odor after Cleansing No No -Negative Pressure Wound Therapy N/A -Other Dressing dakins dakins, ABD -Primary Dressing Covered/Secured with Dry Gauze & Dry Gauze & Roll Gauze, Roll Gauze, Secured with Secured with Tape Tape Right -Tubular Bandage Single Layer -Size of Tubigrip Used Size D -Size D ($) 1 Treatment Response Procedure Tolerated Well Pain Scale: 0-10 Numeric Is Patient Pain Free? Yes No WC - Visit Discharge Discharge Condition Stable Stable Ambulatory Status Wheelchair Wheelchair Transportation Private Auto Private Auto Accompanied by dad Medication Reconcilliation completed & Yes provided to patient/care provider Clinical Summary of Care Provided Yes Assessment/Plan Assessment/Plan (1) Breast cancer, left breast: CODE(S): C50.912 - Malignant neoplasm of unspecified site of left female breast (2) Braces as ambulation aid: CODE(S): Z97.8 - Presence of other specified devices (3) Pyoderma gangrenosum: CODE(S): L88 - Pyoderma gangrenosum (4) Ulcer of right lower extremity with fat layer exposed: CODE(S): L97.912 - Non-pressure chronic ulcer of unspecified part of right lower leg with fat layer exposed PLAN: Plan Patient evaluated today at the wound center. Wound care - Stop Dakins and start Lilibeth covered with gauze daily. Her ulcer is showing improvement. Tubigrip for compression. A wound culture was obtained 05/08/22.? It was positive for Klebsiella pneumoniae. Stop Doxycycline and start Levaquin daily. Wound culture from 04/05/22 showed no bacterial growth. Punch biopsy x 2 from 04/12/22 showed acute and chronic inflammation with extensive ulceration. Correlation with clinical findings and appropriate follow up are necessary to rule out pyoderma grangrenosum. I am going to continue to use Dakins 0.25% moistened gauze for wound care for now, to help decrease the infection risk since she is receiving chemotherapy and to help with the depth of the wound where the biopsies were obtained. Eventually will treat with a topical steroid to this wound (such as Clobetasol propionate 0.05%), because clinically it looks like Pyoderma Grangrenosum, and this would be first line treatment. She has not tried wearing her braces with a thick ABD pad covering the wound to see how the brace presses against the wound. Had lengthy discussion about increasing protein intake. Patient states that she has been having difficulty with nausea. Follow up one week. Call or come in sooner if develop any concerns.
== END 2022-05-27 23:59 | disposition home or self-care (01) ==
LOC: WC 09:30
PROVIDERS: PCP Family Medicine; Visit Provider Nurse Practitioner Family
DX: L97.912 Non-pressure chronic ulcer of unspecified part of right lower leg with fat layer exposed (principal); C50.912 Malignant neoplasm of unspecified site of left female breast; S81.851A Open bite, right lower leg, initial encounter; Z92.21 Personal history of antineoplastic chemotherapy; Z97.8 Presence of other specified devices; L88 Pyoderma gangrenosum
CPT/HCPCS: 11042; 11045; 87070; 87075; 87077; 87186; 87205

== ENCOUNTER 2022-05-22 11:56 | Inpatient (IN) | payer OTHER, SELFPAY ==
[2022-05-22] VITALS (11 sets, daily range): BP systolic 92–125; BP diastolic 60–76; PULSE 113–155; RESP 10–29; TEMP 36.6–38.3; O2SAT 94–100; BMI 18.6; BMI 19.3
--- NOTE | 2022-05-22 12:59 | CT_ITS ---
STUDY: CT ABDOMEN AND PELVIS WITH CONTRAST REASON FOR EXAM: Female, 41 years old. Right lower quadrant pain RADIATION DOSAGE (If Supplied By Facility): CTDIvol = ( 26.58 ) mGy, DLP = ( 295.28 ) mGycm TECHNIQUE: Transaxial images were obtained from the dome of the diaphragm to the symphysis pubis without oral contrast. IV 75mL Isovue-370 was administered. Sagittal and coronal images were reconstructed. Individualized dose optimization techniques were used for this CT. COMPARISON: None. FINDINGS: The visualized lung bases are unremarkable. The visualized portions of the heart are within normal limits. Normal liver. Normal gallbladder and extrahepatic biliary system. Normal spleen. Normal pancreas. Normal bilateral adrenal glands. Normal right kidney. Normal left kidney. Normal visualized stomach. Normal small intestine. Unusual 3 cm round area of fluid with peripheral enhancement and stranding of surrounding fat lateral to the ascending colon which penetrates through the interior musculature the anterior abdominal wall on image 50. Possibilities include infectious colitis, diverticulitis, or Crohn''s colitis. No pneumoperitoneum to suggest perforation. The appendix is visualized and appears normal. Normal abdominal aorta. Normal inferior vena cava. Normal retroperitoneum. Normal urinary bladder. Normal abdominal wall. Dextroscoliosis of the thoracic lumbar spine with spinal rods and deformity of the chest and abdomen.. CT/Abdomen/Pelvis W IV Cont ONLY IMPRESSION: 3 cm phlegmon lateral to the descending colon with invasion of the anterior abdominal wall musculature. Differential diagnosis includes infectious colitis, diverticulitis, or Crohn''s colitis. Electronically Signed: Matthew Melendez MD at 16:21 EST ,
--- NOTE | 2022-05-22 13:00 | ED.RN ---
Patient also complains of pain at site of dressed wound. States this is not new and has been using topical cream along with antibiotic at home. Wound noted to be tunneling along with reddness around site.
[2022-05-22] MEDS: Ondansetron 4 MG/2 ML Vial IV ×2 (13:17→20:30)
[2022-05-22] MEDS: Morphine 2 MG/ML Syringe IV (13:17)
[2022-05-22 13:29] LABS: Hematocrit 24.7 % (37-47); Hemoglobin 8.3 g/dL (12.0-15.0); Mean Corp Hgb Conc 33.6 g/dL (32-36); Mean Corpuscular Hgb 28.8 pg (27.0-32.0); Mean Corpuscular Volume 85.8 fL (81-99); Mean Platelet Vol. 9.3 fl (6.2-12.0); POSITIVE COUNT YES; POSITIVE DIFFERENTIAL YES; POSITIVE MORPHOLOGY YES; Platelet Count 158 K/mm3 (150-450); RBC Distribution Width CV 16.7 % (11.6-14.6); RBC Distribution Width SD 51.3 fl (35.1-43.9); Red Blood Count 2.88 M/mm3 (4.2-5.4); White Blood Count 47.7 K/mm3 (4.4-11.0)
[2022-05-22 13:51] LABS: Differential Indicated MANUAL DIFF
[2022-05-22 14:03] LABS: Lymphocyte 5 % (19-41); Metamyelocyte 2 % (0-1); Monocyte 5 % (0-10); Myelocyte 7 % (0-0); Neutrophil-Band 4 % (0-5); Neutrophil-Segmented 77 % (47-70); Total Cells Counted 100 (MANUAL DIFF)
[2022-05-22 14:06] LABS: Absolute Lymphocyte Count 2.39 X10^3/uL (0.83-4.51); Absolute Neutrophil Count 38.6 X10^3/uL (2.0-7.7)
[2022-05-22 14:07] LABS: Platelet Estimate ADEQUATE (ADEQ); Red Cell Morphology NORM C+C NORMAL (NORM C&C)
[2022-05-22 14:14] LABS: ALB/GLOB Ratio 0.7 RATIO (0.9-2.4); AST(SGOT) 10 U/L (15-37); Alanine Aminotransfer ALT/SGPT 17 U/L (13-56); Albumin, Serum 2.5 g/dL (3.2-5.0); Alkaline Phosphatase 167 U/L (45-117); Anion Gap 10 (5-15); BUN 18 mg/dL (7-18); BUN/Creat Ratio 40.5 RATIO (10-20); Calcium,Total 8.4 mg/dL (8.5-10.1); Chloride 88 mmol/L (98-107); Creatinine, Serum 0.44 mg/dL (0.55-1.02); EST Glomerular Filtration Rate 164 mL/min (>60); Est Glom Filt Rate - Afr Amer 198 mL/min (>60); Estimated Creatinine Clearance 94.44 ml/min; Globulin 3.4 g/dL (2.2-4.2); Glucose 134 mg/dL (74-106); Potassium 2.2 mmol/L (3.5-5.1); Protein, Total 5.9 g/dL (6.4-8.2); Sodium Level 130 mmol/L (136-145)
[2022-05-22 14:26] LABS: Mucous, Urine 0 SEEN /hpf (<or=2+); Squamous Epithelial Cells - UA 0 SEEN /hpf (5-10)
[2022-05-22 14:28] LABS: Color, Urine Yellow (Yellow); Glucose, Dipstick Normal (Normal); Leukocyte Esterase-Dipstick 25 /ul (Negative); Nitrite-Dipstick Negative (Negative); Occult Blood-Urine 25 /ul (Negative); Protein-Dipstick 30 mg/dl (Negative); Urine Bilirubin Dipstick Negative (Negative); Urine Clarity Sl. Cloudy (Clear); Urine Urobilinogen Normal (Normal)
[2022-05-22 14:38] LABS: Ketone-Dipstick 150 mg/dl (Negative)
[2022-05-22 14:39] LABS: Red Blood Cells-Urine 0-5 SEEN /hpf (0-5); White Blood Cells 0-5 SEEN /hpf (0-5)
[2022-05-22 14:40] LABS: Bacteria 1+ /hpf (None Seen)
--- NOTE | 2022-05-22 14:54 | EDS_ITS ---
HPI HPI - GI History of Present Illness Chief Complaint: Abd Pain Detail of Chief Complaint: Right lower quadrant abdominal pain Informant: patient and family Abdominal Pain/Flank Pain Onset: Days Context: Sudden Onset Timing: Intermittent (Initially intermittent now constant) Quality: - (Pain) Location: RLQ Current Severity: Mild Maximum Severity: Severe Worsened by: Car ride and Movement Relieved by: Nothing Nausea/Vomiting/Emesis GI Symptom: Positive for Nausea; Negative for Vomiting Onset: Yesterday Diarrhea/Melena/Hematochezia GI Symptom: Positive for Diarrhea; Negative for Melena or Hematochezia Onset: Yesterday Stool Quality: Positive for Loose and Watery Associated Symptoms Associated Symptoms: Negative for Dysuria, Frequency, Hematuria or Urgency Narrative Narrative: Is a 41-year-old woman history of left breast cancer with one positive node. She is undergoing chemotherapy. She presents with nausea and right lower quadrant pain. She states yesterday she had loose stool. Has not had loose stool today. She denies blood or mucus in her stool. She denies fever, chills night sweats. She does report thirst and lightheadedness. She denies headache, visual, ocular auditory symptoms. She denies cardiac respiratory symptoms. She does report mild dysuria and decreased urine output. She denies hematuria or frequency. She denies black-colored stool or maroon-colored stool. She did not note blood or mucus in the diarrhea yesterday. She denies weight loss. She does complain of subjective fever. She is not had an appetite for several days. She denies prior abdominal surgery. Prior similar symptoms: No Recent Illness/Hospitalization: Yes [facility] Medical History Acid reflux Alcohol use Anemia Anxiety Arthritis Arthrogryposis Braces as ambulation aid Breast cancer Breast cancer, left breast Cancer CINV (chemotherapy-induced nausea and vomiting) CPAP (continuous positive airway pressure) dependence Dehydration Depression Diarrhea Diarrhea due to drug Elevated C-reactive protein (CRP) (12/26/21) Encounter for chemotherapy management Encounter for education Heartburn History of diverticulitis History of echocardiogram History of edema History of irregular heartbeat Hypokalemia Hypomagnesemia Leg sore Lung nodule, multiple Mucositis (ulcerative) due to antineoplastic therapy Mucositis (ulcerative) due to antineoplastic therapy Muscular dystrophy Non-smoker Oral candidiasis Port-A-Cath in place Thrombocytosis Thrombocytosis Wears glasses Home Medications cholecalciferol (vitamin D3) 25 mcg (1,000 unit) capsule 2,000 unit PO DAILY 01/25/22 [History Last Taken Unknown] duloxetine 20 mg capsule,delayed release 20 mg PO DAILY 01/25/22 [History Last Taken Unknown] fluticasone propionate 50 mcg/actuation nasal spray,suspension (Flonase Allergy Relief) 1 spray intranasal DAILY PRN allergy symptoms 01/25/22 [History Last Taken Unknown] lidocaine-prilocaine 2.5 %-2.5 % topical cream 1 applic topical ONCE PRN port access 30 days #30 grams 02/23/22 [Rx Last Taken Unknown] prochlorperazine maleate 10 mg tablet 10 mg PO Q6H PRN nausea and vomiting #30 tabs 02/23/22 [Rx Last Taken Unknown] dexamethasone 4 mg tablet 8 mg PO .COMPLEX #12 tabs 02/24/22 [Rx Last Taken Unknown] Magnesium Malate 750 mg PO QHS 02/28/22 [History Last Taken Unknown] MAGIC MOUTH WASH (BMX) 180 mL suspension 15 ml PO .Q6HR #180 mL 03/28/22 [Rx Last Taken Unknown] nystatin 100,000 unit/mL oral suspension 5 ml PO Q6H #473 mL 03/28/22 [Rx Last Taken Unknown] ondansetron 8 mg disintegrating tablet 8 mg PO Q8H PRN nausea and vomiting #30 tabs 04/18/22 [Rx Last Taken Unknown] potassium chloride 20 mEq/15 mL oral liquid 20 meq (15 mL) PO TID #450 mL 05/02/22 [Rx Last Taken Unknown] scopolamine base 1 mg over 3 days transdermal patch 1 patch transdermal Q72H #4 ea 05/02/22 [Rx Last Taken Unknown] levofloxacin 500 mg tablet 500 mg PO DAILY 14 days #14 tabs 05/15/22 [Rx Last Taken Unknown] levofloxacin 500 mg tablet mg 05/22/22 [History Last Taken Unknown] Allergy/AdvReac Type Severity Reaction Status Date / Time kiwi Allergy Mild Anaphylaxis Verified 05/22/22 11:58 Penicillins Allergy Mild Anaphylaxis Verified 05/22/22 11:58 Family History Mother Diabetes Hypertension High cholesterol Thyroid disorder Uncle Cancer non-hodgkins lymphoma Grandfather Heart disease Grandmother Heart disease Brother Hypertension Unknown Breast cancer mother had 2 cousins with aggressive breast cancer Unknown Thyroid cancer maternal cousin Other Arthritis Depression Surgical History H/O release of tendon History of lymph node biopsy History of spinal fusion Social History household members: family current occupational status: employed current occupation: [employer] Smoking Status: Never smoker alcohol intake: current alcohol intake frequency: holidays/special occasions only details: occasional substance use type: does not use ROS ROS ED Constitutional Constitutional ED: Reports weight loss; Denies chills, fever(s), subjective or sweats ENT ENT ED: Denies ear pain, rhinorrhea or sore throat Cardiovascular Cardiovascular: Denies chest pain, orthopnea, palpitations, paroxysmal nocturnal dyspnea or racing heartbeat Respiratory/Chest Respiratory/Chest: Denies cough, dyspnea, dyspnea on exertion, orthopnea or paroxysmal nocturnal dyspnea Gastrointestinal Gastrointestinal: Reports abdominal pain, diarrhea and nausea; Denies constipation, melena or vomiting Genitourinary Genitourinary ED: Reports dysuria; Denies hematuria or urinary frequency Musculoskeletal Musculoskeletal: Denies arthralgias, back pain, myalgias or neck pain Integumentary Denies Abrasions or rash Neurologic Neurologic: Reports weakness; Denies headache(s) or paresthesias Endocrine Endocrinology: Denies polydipsia, polyphagia or polyuria Hematologic/Lymphatic Hematologic/Lymphatic: Denies easy bleeding or easy bruising EXAM Physical Exam Const Vital Signs: 05/22/22 11:58 05/22/22 13:22 05/22/22 13:23 Temperature 97.9 F 97.9 F Temperature Source Temporal Temporal Pulse Rate 155 H 140 H 137 H Respiratory Rate 10 L 20 H 27 H Blood Pressure 92/70 107/76 107/76 Blood Pressure Mean 77 86 86 Pulse Ox 100 100 100 Oxygen Delivery Method Room Air Room Air Room Air 05/22/22 15:00 05/22/22 15:00 05/22/22 16:00 Temperature 99.1 F 99.0 F Temperature Source Oral Oral Pulse Rate 135 H 113 H 143 H Respiratory Rate 29 H 18 25 H Blood Pressure 117/72 117/72 119/75 Blood Pressure Mean 87 87 89 Pulse Ox 97 94 100 Oxygen Delivery Method Room Air Room Air Room Air 05/22/22 16:00 Temperature Temperature Source Pulse Rate 144 H Respiratory Rate 17 Blood Pressure 119/75 Blood Pressure Mean 89 Pulse Ox 100 Oxygen Delivery Method Room Air Positive well nourished and well developed Constitutional Narrative: Patient appears pale. She has alopecia. She does not appear well. General Appearance ED: well developed and pallor; Negative for NAD HEENT Reports TM's clear and dry mucous membranes HEENT Narrative: Uvula midline. No erythema exudate the posterior pharynx. normocephalic and atraumatic Tympanic Membrane ED: Yes TM's clear Mouth ED: Yes dry mucous membranes Mouth: dry mucous membranes Eyes PERRL and EOMs intact bilaterally General Eye ED: Negative for pale conjunctiva or scleral icterus Neck no lymphadenopathy, supple and no JVD Resp normal respiratory effort and clear to auscultation bilaterally Cardio regular rhythm, S1 normal heart sound, S2 normal heart sound and no murmurs Rate: tachycardic GI non-distended and no masses; Negative for non-tender Auscultation: hypoactive bowel sounds Palpation: soft, tender RLQ and guarding RLQ; Negative for rigid, hepatomegaly, splenomegaly, hernia, mass or pulsatile mass Back/Spine no CVA tenderness Thoracic Spine / Upper Back: Negative for thoracic spinal tenderness Lumbar Spine / Lower Back: Negative for lumbar spinal tenderness Extremity full ROM General Extremety ED: Negative for edema or tenderness General Extremity: Negative for edema Neuro CN's II-XII intact bilaterally, moves all extremities and no sensory deficits noted Sensorium / Orientation: alert Motor Exam: strength 5/5 throughout Psych Mood & Affect: depressed Skin no wounds General Skin Exam: pallor; Negative for jaundice Lesions: no lesions MDM MDM MDM Narrative Medical decision making narrative: Patient is approximately 2 weeks status post chemo. Need to rule out bladder infection, kidney infection, appendicitis, mesenteric adenitis. With reported diarrhea need to consider gastroenteritis and inflammatory bowel disorder. Patient is tachycardic with a heart rate of 155. Clinically she appears dehydrated. 500 cc of saline was ordered since this is equivalent to 15 cc/kg. White count is elevated 47.7. There are 77 segs 4 bands with metamyelocytes and myelocytes. This may be due to medication she received to prophylax against neutropenia. Electrolyte panel remarkable for sodium 130, potassium of 2.2. CO2 is normal with normal anion gap. BUN and creatinine are normal however the BUN to creatinine ratio is approximately 40-1. This would be consistent with prerenal. Hepatic profile is remarked for slight elevation of alkaline phosphatase. Urine is remarkable for protein, blood and leukoesterase on macro as well as ketones. Micro reveals 1+ back to area with no pyuria. This may be due to concentration with ketosis. Since patient is still tachycardic after 500 cc an additional 500 cc of normal saline was ordered. We will also order potassium. Preference is to give oral if no contraindication. Awaiting formal read of CAT scan by radiologist. Because patient has anaphylaxis to penicillin she was treated with 600 mg of clindamycin and 4 mg/kg of gentamicin. Lab Data Attestation: I reviewed the patient's lab results. Labs: Laboratory Results - last 24 hr 05/22/22 05/22/22 05/22/22 13:15 13:15 13:15 WBC 47.7 H* RBC 2.88 L Hgb 8.3 L Hct 24.7 L MCV 85.8 MCH 28.8 MCHC 33.6 RDW Std Deviation 51.3 H RDW Coeff of Seema 16.7 H Plt Count 158 MPV 9.3 Neut % (Auto) Not Reportable Absolute Neuts (auto) 38.6 H Absolute Lymphs (auto) 2.39 Total Counted 100 Neutrophils % (Manual) 77 H Band Neutrophils % 4 Lymphocytes % (Manual) 5 L Monocytes % (Manual) 5 Metamyelocytes % 2 H Myelocytes % 7 H Diff Path Review May foll Platelet Estimate ADEQUATE RBC Morphology NORM C+C Sodium 130 L Potassium 2.2 L* Chloride 88 L Carbon Dioxide 32.0 Anion Gap 10 BUN 18 Creatinine 0.44 L Estim Creat Clear Calc 94.44 Est GFR (MDRD) Af Amer 198 Est GFR (MDRD) Non-Af 164 BUN/Creatinine Ratio 40.5 H Glucose 134 H Lactic Acid 1.0 Calcium 8.4 L Total Bilirubin 0.50 AST 10 L ALT 17 Alkaline Phosphatase 167 H Total Protein 5.9 L Albumin 2.5 L Globulin 3.4 Albumin/Globulin Ratio 0.7 L Urine Color Urine Clarity Urine pH Ur Specific [place] Urine Protein Urine Glucose (UA) Urine Ketones Urine Occult Blood Urine Nitrite Urine Bilirubin Urine Urobilinogen Ur Leukocyte Esterase Urine RBC Urine WBC Ur Squamous Epith Cells Urine Bacteria Urine Mucus 05/22/22 14:20 WBC RBC Hgb Hct MCV MCH MCHC RDW Std Deviation RDW Coeff of Seema Plt Count MPV Neut % (Auto) Absolute Neuts (auto) Absolute Lymphs (auto) Total Counted Neutrophils % (Manual) Band Neutrophils % Lymphocytes % (Manual) Monocytes % (Manual) Metamyelocytes % Myelocytes % Diff Path Review Platelet Estimate RBC Morphology Sodium Potassium Chloride Carbon Dioxide Anion Gap BUN Creatinine Estim Creat Clear Calc Est GFR (MDRD) Af Amer Est GFR (MDRD) Non-Af BUN/Creatinine Ratio Glucose Lactic Acid Calcium Total Bilirubin AST ALT Alkaline Phosphatase Total Protein Albumin Globulin Albumin/Globulin Ratio Urine Color Yellow Urine Clarity Sl. Cloudy Urine pH 6.0 Ur Specific [place] 1.020 Urine Protein 30 H Urine Glucose (UA) Normal Urine Ketones 150 A* Urine Occult Blood 25 H Urine Nitrite Negative Urine Bilirubin Negative Urine Urobilinogen Normal Ur Leukocyte Esterase 25 H Urine RBC 0-5 SEEN Urine WBC 0-5 SEEN Ur Squamous Epith Cells 0 SEEN Urine Bacteria 1+ Urine Mucus 0 SEEN Radiography Diagnostic Testing: Clinical Impression(s) from Imaging Studies Abdomen/Pelvis CT 05/22/22 12:59 IMPRESSION: 3 cm phlegmon lateral to the descending colon with invasion of the anterior abdominal wall musculature. Differential diagnosis includes infectious colitis, diverticulitis, or Crohn''s colitis. Electronically Signed: Matthew Melendez MD at 16:21 EST , Case was discussed with Dr. Bernal is on-call for surgery. She agrees with [facility] and will speak with Dr. Katy Frost tomorrow regarding placing a drain percutaneously. She will also order an ultrasound since ultrasound is not in- house and is on-call. EKG Initial EKG: Attestation: I personally reviewed and interpreted this EKG as follows: Interpretation: - (Heart rate is 150. This may represent an atypical presentation for a flutter however does appear to be sinus tach. VT interval 204 ms. History 72 ms. QT duration 3 and 30 ms.) Critical Care Time Critical Care Time: Yes Critical care time (excluding procedures): 30-74 minutes (31), Including time spent: (3, physical, documentation, interpretation laboratory results, initiation of therapy,), Discussing w/Patient &/or Family/Forensic Document Examiner, Discussing w/Consultants and Arranging Admission or Transfer Discharge Plan Triage Chief Complaint: Abd Pain ED Provider: Quentin Martínez Dx/Rx/DC Orders Clinical Impression: Sepsis without acute organ dysfunction, Dehydration, Localized peritonitis, Phlegmonous peritonitis, Sinus tachycardia, Breast cancer metastasized to lung, Anemia, Acute hypokalemia Prescriptions: No Action cholecalciferol (vitamin D3) 1,000 unit capsule 25 mcg (1,000 unit) capsule 2,000 unit PO DAILY duloxetine 20 mg capsule,delayed release(DR/EC) 20 mg PO DAILY fluticasone propionate [Flonase Allergy Relief] 50 mcg/actuation spray,suspension 1 spray intranasal DAILY PRN (Reason: allergy symptoms) Rx Instructions: administer into each nostril lidocaine-prilocaine 2.5-2.5 % cream 1 applic topical ONCE PRN (Reason: port access) 30 Days Qty: 30 2RF prochlorperazine maleate 10 mg tablet 10 mg PO Q6H PRN (Reason: nausea and vomiting) Qty: 30 2RF dexamethasone 4 mg tablet 8 mg PO .COMPLEX Qty: 12 5RF Rx Instructions: 8 mg orally; twice daily ONLY the day before, day of and the day after chemotherapy Magnesium Malate 750 mg PO QHS MAGIC MOUTH WASH (BMX) 180 mL suspension 15 ml PO .Q6HR Qty: 180 5RF Rx Instructions: diphenhydramine 12.5 mg/5 mL oral liquid 60 mL; aluminum-mag hydroxide- simethicone 400 mg-400 mg-40 mg/5 mL oral susp 60 mL; Lidocaine Viscous 2 % mucosal solution 60 mL; Per 180 mL nystatin 100,000 unit/mL suspension 5 ml PO Q6H Qty: 473 0RF Rx Instructions: swish and swallow ondansetron 8 mg tablet,disintegrating 8 mg PO Q8H PRN (Reason: nausea and vomiting) Qty: 30 2RF potassium chloride 20 mEq/15 mL liquid 20 meq PO TID Qty: 450 0RF scopolamine base 1 mg over 3 days patch 3 day 1 patch transdermal Q72H Qty: 4 0RF levofloxacin 500 mg tablet 500 mg PO DAILY 14 Days Qty: 14 0RF levofloxacin 500 mg tablet Label Comments: TAKE 1 TABLET POO EVERY DAY FOR 14 DAYS Primary Care Provider: Jam Verde Referrals: Jam Verde MD [Primary Care Provider] -
--- NOTE | 2022-05-22 15:16 | ED.RN ---
Patient requests additional pain medication for 4/10 pain, Dr. Martínez aware but stating wants to wait for CT results. Patient aware.
[2022-05-22] MEDS: Morphine 4 MG/ML Syringe IV (16:48)
[2022-05-22] MEDS: Potassium Chloride 10mEq/100mL 10 MEQ/100 ML IV.SOLN. 100 MEQ IV BOLUS ×3 (17:00→23:45)
[2022-05-22] MEDS: Clindamycin 600 MG/50 ML BAG 100 MG IV ×2 (17:04→23:37)
--- NOTE | 2022-05-22 17:49 | ECHOD_ITS ---
Reason For Study: TACHY Procedure This was a 2D Doppler, Color Flow transthoracic echocardiogram. The study was technically difficult. Exam performed portable in patient room. Left Ventricle Normal size and thickness. The left ventricular ejection fraction is 55 %. Mid to dstal anterior septum and apical hypokinesis. Right Ventricle Normal right ventricle. Atria The left and right atria are normal. Mitral Valve Trivial mitral valve insufficiency. Tricuspid Valve The tricuspid valve is not well visualized. Aortic Valve The aortic valve is not well visualized. There is no aortic stenosis. No aortic valve insufficiency. Pulmonic Valve The pulmonic valve is not well visualized. Great Vessels Normal sized aortic root. Pericardium/Pleural Small fibrinous anterior pericardial effusion. MMode/2D Measurements & Calculations LVIDd: 3.9 cm IVSd: 0.75 cm Ao root diam: 2.2 cm LVIDs: 2.5 cm LVPWd: 0.84 cm FS: 36.5 % LA dimension(2D): 2.8 cm Time Measurements MV dec time: 0.26 sec Doppler Measurements & Calculations MV E max shad: 81.7 cm/sec Lat Peak E' Shad: 11.8 cm/sec Med Peak E' Shad: 6.9 cm/sec MV A max shad: 49.9 cm/sec E/E' lat: 6.9 E/E' med: 11.9 MV E/A: 1.6 MV V2 max: 89.2 cm/sec Ao V2 max: 98.8 cm/sec MV max P.2 mmHg MV dec slope: 314.9 cm/sec2 Ao max P.9 mmHg MV V2 mean: 56.5 cm/sec Ao V2 mean: 65.5 cm/sec MV mean P.5 mmHg Ao mean P.9 mmHg MV V2 VTI: 16.1 cm Ao V2 VTI: 19.2 cm AV (velocity ratio): 0.76 LV V1 max: 81.5 cm/sec LV V1 max P.7 mmHg LV V1 mean P.5 mmHg LV V1 mean: 56.9 cm/sec LV V1 VTI: 14.7 cm ECHO/Echo Complete Interpretation Summary The study was technically difficult. The left ventricular ejection fraction is 55 %. Mid to dstal anterior septum and apical hypokinesis. Small fibrinous anterior pericardial effusion. Ordering Physician: Ernestina Rene Referring Physician: Jam Verde MD Performed By: Riri Mclain RCS
--- NOTE | 2022-05-22 17:54 | HP.PCM.HOS_ITS ---
HPI - General General Date of Admission: 05/22/22 Date of Service: 05/22/22 Chief Complaint: Abdominal pain HPI Narrative AMINA ESPOSITO, is a 41 F with history of breast cancer with metastasis to the lung currently on chemotherapy, nonhealing right lower extremity wound, muscular dystrophy who presented to [facility] 05/22/2022 with worsening abdominal pain. She initially had some lower abdominal pain on Sunday night that slowly improved but today it drastically worsened. She presented to the emergency department and CT abdomen demonstrated 3 cm phlegmon lateral to the descending colon with invasion of the anterior abdominal wall musculature. Surgery was contacted and is considering drain tomorrow. Given an anaphylactic penicillin allergy she was given clindamycin and gentamicin in the ED and was also given fluids as she appeared dehydrated. Hospitalist consulted for admission. She was evaluated with family member at bedside and she had recently received pain medication reports that has helped her pain. She continues to have the right lower quadrant pain however. Denies any fevers, does have diarrhea intermittently which is chronic and not necessarily worse but has had some worsening nausea, poor p.o. which also is not new but she has had difficult time maintaining nutrition. No chest pain or shortness of breath. Does have worsening right lower extremity wound for which she follows with wound care and is on Levaquin for. [facility] Medical History Acid reflux Alcohol use Anemia Anxiety Arthritis Arthrogryposis Braces as ambulation aid Breast cancer Breast cancer, left breast Cancer CINV (chemotherapy-induced nausea and vomiting) CPAP (continuous positive airway pressure) dependence Dehydration Depression Diarrhea Diarrhea due to drug Elevated C-reactive protein (CRP) (12/26/21) Encounter for chemotherapy management Encounter for education Heartburn History of diverticulitis History of echocardiogram History of edema History of irregular heartbeat Hypokalemia Hypomagnesemia Leg sore Lung nodule, multiple Mucositis (ulcerative) due to antineoplastic therapy Mucositis (ulcerative) due to antineoplastic therapy Muscular dystrophy Non-smoker Oral candidiasis Port-A-Cath in place Thrombocytosis Thrombocytosis Wears glasses Home Medications cholecalciferol (vitamin D3) 25 mcg (1,000 unit) capsule 2,000 unit PO DAILY 01/25/22 [History Last Taken Unknown] duloxetine 20 mg capsule,delayed release 20 mg PO DAILY 01/25/22 [History Last Taken Unknown] lidocaine-prilocaine 2.5 %-2.5 % topical cream 1 applic topical ONCE PRN port access 30 days #30 grams 02/23/22 [Rx Last Taken Unknown] prochlorperazine maleate 10 mg tablet 10 mg PO Q6H PRN nausea and vomiting #30 tabs 02/23/22 [Rx Last Taken Unknown] dexamethasone 4 mg tablet 8 mg PO .COMPLEX #12 tabs 02/24/22 [Rx Last Taken Unknown] Magnesium Malate 750 mg PO QHS 02/28/22 [History Last Taken Unknown] MAGIC MOUTH WASH (BMX) 180 mL suspension 15 ml PO .Q6HR #180 mL 03/28/22 [Rx L ast Taken Unknown] ondansetron 8 mg disintegrating tablet 8 mg PO Q8H PRN nausea and vomiting #30 tabs 04/18/22 [Rx Last Taken Unknown] potassium chloride 20 mEq/15 mL oral liquid 20 meq (15 mL) PO TID #450 mL 05/02/22 [Rx Last Taken Unknown] scopolamine base 1 mg over 3 days transdermal patch 1 patch transdermal Q72H #4 ea 05/02/22 [Rx Last Taken Unknown] levofloxacin 500 mg tablet 500 mg PO DAILY 14 days #14 tabs 05/15/22 [Rx Last Taken Unknown] levofloxacin 500 mg tablet mg 05/22/22 [History Last Taken Unknown] Allergy/AdvReac Type Severity Reaction Status Date / Time kiwi Allergy Mild Anaphylaxis Verified 05/22/22 11:58 Penicillins Allergy Mild Anaphylaxis Verified 05/22/22 11:58 Family History Mother Diabetes Hypertension High cholesterol Thyroid disorder Uncle Cancer non-hodgkins lymphoma Grandfather Heart disease Grandmother Heart disease Brother Hypertension Unknown Breast cancer mother had 2 cousins with aggressive breast cancer Unknown Thyroid cancer maternal cousin Other Arthritis Depression Surgical History H/O release of tendon History of lymph node biopsy History of spinal fusion Social History household members: family current occupational status: employed current occupation: [email or web address] Smoking Status: Never smoker alcohol intake: current alcohol intake frequency: holidays/special occasions only details: occasional substance use type: does not use ROS Constitutional Constitutional: Denies chills, fever(s) or night sweats Eyes Eyes: Denies change in vision ENT HEENT: Denies headache(s), nasal congestion or sore throat Cardiovascular Cardiovascular: Denies chest pain or palpitations Respiratory/Chest Respiratory/Chest: Denies cough or productive cough Gastrointestinal Gastrointestinal: Reports abdominal pain and other Details: Intermittent chronic diarrhea, nausea, right lower quadrant abdominal pain Genitourinary Genitourinary: Reports other Details: denies changes in urination Musculoskeletal Musculoskeletal: Denies joint pain Neurologic Neurologic: Reports other Details: General weakness ; Denies dizziness, numbness or tingling Psychiatric Psychiatric: Denies anxiety Hematologic/Lymphatic Hematologic/Lymphatic: Denies easy bleeding Allergic/Immunologic Allergic/Immunologic: Reports other Details: denies rashes Vital Signs Vital Signs Vital Signs: 05/22/22 11:58 05/22/22 13:22 05/22/22 13:23 Temperature 97.9 F 97.9 F Temperature Source Temporal Temporal Pulse Rate 155 H 140 H 137 H Respiratory Rate 10 L 20 H 27 H Blood Pressure 92/70 107/76 107/76 Blood Pressure Mean 77 86 86 Pulse Ox 100 100 100 Oxygen Delivery Method Room Air Room Air Room Air 05/22/22 15:00 05/22/22 15:00 05/22/22 16:00 Temperature 99.1 F 99.0 F Temperature Source Oral Oral Pulse Rate 135 H 113 H 143 H Respiratory Rate 29 H 18 25 H Blood Pressure 117/72 117/72 119/75 Blood Pressure Mean 87 87 89 Pulse Ox 97 94 100 Oxygen Delivery Method Room Air Room Air Room Air 05/22/22 16:00 05/22/22 17:08 05/22/22 17:08 Temperature 99.8 F H 99.8 F H Temperature Source Oral Oral Pulse Rate 144 H 138 H 138 H Respiratory Rate 17 21 H 17 Blood Pressure 119/75 125/75 H 125/75 H Blood Pressure Mean 89 91 91 Pulse Ox 100 99 99 Oxygen Delivery Method Room Air Room Air Room Air Weight Weight: 36.287 kg Body Mass Index (BMI) 18.6 Physical Exam Const alert Constitutional Narrative: Oriented HEENT normocephalic Eyes Eyes Narrative: EOM grossly intact, anicteric Neck supple Resp normal respiratory effort and clear to auscultation bilaterally Cardio regular rate and regular rhythm GI GI Narrative: Soft, nondistended, does have right lower quadrant tenderness with voluntary guarding, no rebound, no rigidity Extremity Extremity Narrative: No edema appreciated, right lower extremity wrapped Neuro moves all extremities Neuro Narrative: No overt focal deficits appreciated Psych Psych Narrative: Cooperative, does appear slightly anxious Results Lab / Micro Data Result Diagrams: 05/22/22 13:15 05/22/22 13:15 Labs: Laboratory Results - last 24 hr 05/22/22 13:15: WBC 47.7 H*, RBC 2.88 L, Hgb 8.3 L, Hct 24.7 L, MCV 85.8, MCH 28.8, MCHC 33.6, RDW Std Deviation 51.3 H, RDW Coeff of Seema 16.7 H, Plt Count 158, MPV 9.3, Neut % (Auto) Not Reportable, Absolute Neuts (auto) 38.6 H, Absolute Lymphs (auto) 2.39, Total Counted 100, Neutrophils % (Manual) 77 H, Band Neutrophils % 4, Lymphocytes % (Manual) 5 L, Monocytes % (Manual) 5, Metamyelocytes % 2 H, Myelocytes % 7 H, Diff Path Review September, Platelet Estimate ADEQUATE, RBC Morphology NORM C+C 05/22/22 13:15: Sodium 130 L, Potassium 2.2 L*, Chloride 88 L, Carbon Dioxide 32.0, Anion Gap 10, BUN 18, Creatinine 0.44 L, Estim Creat Clear Calc 94.44, Est GFR (MDRD) Af Amer 198, Est GFR (MDRD) Non-Af 164, BUN/Creatinine Ratio 40.5 H, Glucose 134 H, Calcium 8.4 L, Total Bilirubin 0.50, AST 10 L, ALT 17, Alkaline Phosphatase 167 H, Total Protein 5.9 L, Albumin 2.5 L, Globulin 3.4, Albumin/Globulin Ratio 0.7 L 05/22/22 13:15: Lactic Acid 1.0 05/22/22 14:20: Urine Color Yellow, Urine Clarity Sl. Cloudy, Urine pH 6.0, Ur Specific [place] 1.020, Urine Protein 30 H, Urine Glucose (UA) Normal, Urine Ketones 150 A*, Urine Occult Blood 25 H, Urine Nitrite Negative, Urine Bilirubin Negative, Urine Urobilinogen Normal, Ur Leukocyte Esterase 25 H, Urine RBC 0-5 SEEN, Urine WBC 0-5 SEEN, Ur Squamous Epith Cells 0 SEEN, Urine Bacteria 1+, Urine Mucus 0 SEEN Radiology Impression Abdomen/Pelvis CT 05/22/22 12:59 IMPRESSION: 3 cm phlegmon lateral to the descending colon with invasion of the anterior abdominal wall musculature. Differential diagnosis includes infectious colitis, diverticulitis, or Crohn''s colitis. Electronically Signed: Matthew Melendez MD at 16:21 EST , Assessment & Plan Assessment/Plan (1) Colitis: PLAN: Plan #Acute colitis CT with 3 cm phlegmon lateral to the descending colon with invasion of the anterior abdominal wall musculature Does have tachycardia, not febrile, does have elevated white blood cell count but reportedly gets an injection with her chemotherapy for her WBC which confounds this, lactic acid within normal limits and blood pressure stable Cultures ordered IV fluids Surgery consulted Continue clinda and gentamicin given her anaphylaxis to penicillin, can consider meropenem but concern for cross reaction Pain control #Breast cancer undergoing chemotherapy Chemotherapy due next week Was post to have an appointment with her oncologist tomorrow Given active cancer with chemotherapy and poor clinical status will consult her oncologist #Hypokalemia Replaced, repeat BMP #Right lower extremity wound On broad-spectrum antibiotics at this time Wound care consulted #DVT ppx: Lovenox Ernestina Rene MD Charges/Coding Visit Charges Inpatient E&M: 46099 Init Hosp L2
[2022-05-22] MEDS: 0.9% Normal Saline 1,000 ML 100 ML IV (19:05)
[2022-05-22] MEDS: 0.9% Normal Saline 1,000 ML 999 ML IV (20:30)
[2022-05-22 21:54] LABS: Anion Gap 13 (5-15); BUN 12 mg/dL (7-18); BUN/Creat Ratio 30.2 RATIO (10-20); Calcium,Total 7.4 mg/dL (8.5-10.1); Chloride 99 mmol/L (98-107); EST Glomerular Filtration Rate 186 mL/min (>60); Est Glom Filt Rate - Afr Amer 225 mL/min (>60); Estimated Creatinine Clearance 104.49 ml/min; Glucose 86 mg/dL (74-106); Magnesium 0.9 mg/dL (1.6-2.6); Potassium 2.2 mmol/L (3.5-5.1); Sodium Level 135 mmol/L (136-145)
[2022-05-22] MEDS: metroNIDAZOLE 500 MG/100 ML BAG 100 MG IV (22:17)
[2022-05-22] MEDS: Potassium Chloride Oral Tablet 20 MEQ PO (22:38)
[2022-05-22] MEDS: Acetaminophen 500 MG Tablet 1000 MG PO (22:39)
[2022-05-22 22:41] LABS: Phosphorus 2.2 mg/dL (2.5-4.9)
[2022-05-22] MEDS: Potassium Chloride Oral Soln 20 MEQ/15 ML UDC PO (22:41)
[2022-05-22] MEDS: Magnesium Sulfate 4gm/100mL 4 GM/100 ML IV.SOLN. IV (22:50)
[2022-05-23] VITALS (19 sets, daily range): BP systolic 84–114; BP diastolic 58–89; PULSE 84–160; RESP 16–18; TEMP 36.4–37.7; O2SAT 94–100; BMI 19.3
[2022-05-23] MEDS: Potassium Chloride 10mEq/100mL 10 MEQ/100 ML IV.SOLN. 100 MEQ IV BOLUS ×2 (00:45→01:59)
[2022-05-23] MEDS: 0.9% Normal Saline 1,000 ML 125 ML IV ×2 (03:19→16:01)
[2022-05-23] MEDS: 0.9% Normal Saline 1,000 ML 999 ML IV ×2 (04:24→20:37)
[2022-05-23] MEDS: Clindamycin 600 MG/50 ML BAG 100 MG IV ×3 (05:17→17:03)
[2022-05-23] MEDS: metroNIDAZOLE 500 MG/100 ML BAG 100 MG IV ×3 (05:59→22:05)
[2022-05-23] MEDS: Acetaminophen 500 MG Tablet 1000 MG PO (06:00)
--- NOTE | 2022-05-23 07:03 | CON.PCM.SX_ITS ---
Assessment & Plan Assessment/Plan (1) Intra-abdominal abscess: (2) Abdominal wall abscess: (3) Colitis: PLAN: Plan CT abdomen pelvis with patient. Discussed has not commented that diverticular abscesses involve the abdominal wall as well. Not sure if this is due to the fact that she is on chemotherapy. We will plan to get ultrasound of this area. On CAT scan measures 3 cm which could be small to percutaneously drain. Patient states area feels much better. We will continue IV antibiotics. Okay for ice chips and p.o. meds otherwise n.p.o. Hemoglobin 5.2 we will recheck also primary ordered 2 units packed red blood cells. Patient did have a hemoglobin of 6.6 in early April unsure if this can be partially related with chemotherapy as well. Discussed with patient that she would need colonoscopy in the near future hopefully once this area has healed as she has never had one previously. Samantha Osorio M.D. Pager: [phone] [facility] [address] [place] [address], Outpatient [place], [address] [place] [address] Office: [phone] HPI Consult Data Date of Consult: 05/24/22 HPI Narrative HPI Narrative: AMINA ESPOSITO, is a 41 F who presents to the ER due to right-sided abdominal pain. Patient states started on Sunday but got a lot worse yesterday. Patient's last chemotherapy was about 2 weeks ago. Patient has 2 more treatments scheduled due to breast cancer. She did have some nausea and minimal vomiting. Patient states this morning that the pain is much better with the IV antibiotics. Patient is on clinda and Flagyl IV. Patient CT abdomen pelvis did show fluid collection near the ascending colon but also invading the right abdominal wall?likely source is the colon from possible colitis or diverticulitis. Patient denies any previous episodes of diverticulitis or colitis in the past. Patient states she previously has been having diarrhea. Patient's never had a previous colonoscopy. [facility] Medical History (Updated 05/23/22 @ 17:28 by Chelsea Hernandez NP, OPERATIONS EXPERT-C) Acid reflux Alcohol use Anemia Anxiety Arthritis Arthrogryposis Braces as ambulation aid Breast cancer Breast cancer, left breast Cancer CINV (chemotherapy-induced nausea and vomiting) CPAP (continuous positive airway pressure) dependence Dehydration Depression Diarrhea Diarrhea due to drug Elevated C-reactive protein (CRP) (12/26/21) Encounter for chemotherapy management Encounter for education Heartburn History of diverticulitis History of echocardiogram History of edema History of irregular heartbeat Hypokalemia Hypomagnesemia Leg sore Lung nodule, multiple Mucositis (ulcerative) due to antineoplastic therapy Mucositis (ulcerative) due to antineoplastic therapy Muscular dystrophy Nausea Non-smoker Oral candidiasis Port-A-Cath in place Sleep apnea Thrombocytosis Thrombocytosis Wears glasses Home Medications cholecalciferol (vitamin D3) 25 mcg (1,000 unit) capsule 2,000 unit PO DAILY Check with primary doctor 01/25/22 [History Last Taken Unknown] duloxetine 20 mg capsule,delayed release 20 mg PO DAILY Check with primary doctor 01/25/22 [History Last Taken Unknown] lidocaine-prilocaine 2.5 %-2.5 % topical cream 1 applic topical ONCE PRN port access 30 days #30 grams 02/23/22 [Rx Last Taken Unknown] prochlorperazine maleate 10 mg tablet 10 mg PO Q6H PRN nausea and vomiting #30 tabs 02/23/22 [Rx Last Taken Unknown] Magnesium Malate 750 mg PO QHS Check with primary doctor 02/28/22 [History Last Taken Unknown] ondansetron 8 mg disintegrating tablet 8 mg PO Q8H PRN nausea and vomiting #30 tabs 04/18/22 [Rx Last Taken Unknown] potassium chloride 20 mEq/15 mL oral liquid 20 meq (15 mL) PO TID #450 mL 05/02/22 [Rx Last Taken Unknown] MAGIC MOUTH WASH (BMX) 180 mL suspension 15 ml PO .Q6HR Check with primary doctor 05/22/22 [History Last Taken Unknown] dexamethasone 4 mg tablet 8 mg PO .COMPLEX Check with primary doctor 05/22/22 [History Last Taken Unknown] levofloxacin 500 mg tablet 500 mg PO DAILY Check with primary doctor 05/22/22 [History Last Taken Unknown] scopolamine base 1 mg over 3 days transdermal patch 1 patch transdermal Q72H Check with primary doctor 05/22/22 [History Last Taken Unknown] Allergy/AdvReac Type Severity Reaction Status Date / Time kiwi Allergy Mild Anaphylaxis Verified 05/22/22 11:58 Penicillins Allergy Mild Anaphylaxis Verified 05/22/22 11:58 Family History Mother Diabetes Hypertension High cholesterol Thyroid disorder Uncle Cancer non-hodgkins lymphoma Grandfather Heart disease Grandmother Heart disease Brother Hypertension Unknown Breast cancer mother had 2 cousins with aggressive breast cancer Unknown Thyroid cancer maternal cousin Other Arthritis Depression Surgical History H/O release of tendon History of lymph node biopsy History of spinal fusion Social History household members: family current occupational status: employed current occupation: [employer] Smoking Status: Never smoker alcohol intake: current alcohol intake frequency: holidays/special occasions only details: occasional substance use type: does not use Physical Exam Const alert, oriented x3 and no apparent distress Resp normal respiratory effort Cardio Rate: regular rate GI soft to palpation Palpation: tender RLQ (Corresponding with CT abdomen pelvis abdominal wall/intra-abdominal abscess) Skin no rashes or lesions noted Psych mental status grossly normal Lab / Micro Data Result Diagrams: 05/24/22 06:36 05/24/22 06:36 Labs: Laboratory Results - last 24 hr 05/22/22 13:15: WBC 47.7 H*, RBC 2.88 L, Hgb 8.3 L, Hct 24.7 L, MCV 85.8, MCH 28.8, MCHC 33.6, RDW Std Deviation 51.3 H, RDW Coeff of Seema 16.7 H, Plt Count 158, MPV 9.3, Neut % (Auto) Not Reportable, Absolute Neuts (auto) 38.6 H, Absolute Lymphs (auto) 2.39, Total Counted 100, Neutrophils % (Manual) 77 H, Band Neutrophils % 4, Lymphocytes % (Manual) 5 L, Monocytes % (Manual) 5, Metamyelocytes % 2 H, Myelocytes % 7 H, Diff Path Review May , Platelet Estimate ADEQUATE, RBC Morphology NORM C+C 05/22/22 13:15: Sodium 130 L, Potassium 2.2 L*, Chloride 88 L, Carbon Dioxide 32.0, Anion Gap 10, BUN 18, Creatinine 0.44 L, Estim Creat Clear Calc 94.44, Est GFR (MDRD) Af Amer 198, Est GFR (MDRD) Non-Af 164, BUN/Creatinine Ratio 40.5 H, Glucose 134 H, Calcium 8.4 L, Total Bilirubin 0.50, AST 10 L, ALT 17, Alkaline Phosphatase 167 H, Total Protein 5.9 L, Albumin 2.5 L, Globulin 3.4, Albumin/Globulin Ratio 0.7 L 05/22/22 13:15: Lactic Acid 1.0 05/22/22 13:15: Phosphorus 2.2 L 05/22/22 14:20: Urine Color Yellow, Urine Clarity Sl. Cloudy, Urine pH 6.0, Ur Specific [place] 1.020, Urine Protein 30 H, Urine Glucose (UA) Normal, Urine Ketones 150 A*, Urine Occult Blood 25 H, Urine Nitrite Negative, Urine Bilirubin Negative, Urine Urobilinogen Normal, Ur Leukocyte Esterase 25 H, Urine RBC 0-5 SEEN, Urine WBC 0-5 SEEN, Ur Squamous Epith Cells 0 SEEN, Urine Bacteria 1+, Urine Mucus 0 SEEN 05/22/22 20:55: Sodium 135 L, Potassium 2.2 L*, Chloride 99, Carbon Dioxide 23.0, Anion Gap 13, BUN 12, Creatinine 0.40 L, Estim Creat Clear Calc 104.49, Est GFR (MDRD) Af Amer 225, Est GFR (MDRD) Non-Af 186, BUN/Creatinine Ratio 30.2 H, Glucose 86, Calcium 7.4 L, Magnesium 0.9 L* Micro: Microbiology 05/22/22 18:15 Nasal Secretion SARS-CoV-2 & FLU Antigen (Rapid) - Final Radiology Impression Abdomen/Pelvis CT 05/22/22 12:59 IMPRESSION: 3 cm phlegmon lateral to the descending colon with invasion of the anterior abdominal wall musculature. Differential diagnosis includes infectious colitis, diverticulitis, or Crohn''s colitis. Electronically Signed: Matthew Melendez MD at 16:21 EST ,
[2022-05-23 07:06] LABS: Hematocrit 16.1 % (37-47); Hemoglobin 5.2 g/dL (12.0-15.0); Mean Corp Hgb Conc 32.3 g/dL (32-36); Mean Corpuscular Hgb 29.5 pg (27.0-32.0); Mean Corpuscular Volume 91.5 fL (81-99); Mean Platelet Vol. 9.4 fl (6.2-12.0); POSITIVE COUNT YES; Platelet Count 101 K/mm3 (150-450); RBC Distribution Width CV 17.7 % (11.6-14.6); RBC Distribution Width SD 57.9 fl (35.1-43.9); Red Blood Count 1.76 M/mm3 (4.2-5.4); White Blood Count 41.6 K/mm3 (4.4-11.0)
[2022-05-23 07:25] LABS: Scan Indicated on CBC? Y/N YES- FLAGS NOTED
[2022-05-23 07:41] LABS: ALB/GLOB Ratio 0.7 RATIO (0.9-2.4); AST(SGOT) 9 U/L (15-37); Alanine Aminotransfer ALT/SGPT 10 U/L (13-56); Albumin, Serum 1.6 g/dL (3.2-5.0); Alkaline Phosphatase 112 U/L (45-117); Anion Gap 9 (5-15); BUN 12 mg/dL (7-18); BUN/Creat Ratio 28.3 RATIO (10-20); Calcium,Total 6.5 mg/dL (8.5-10.1); Chloride 105 mmol/L (98-107); Creatinine, Serum 0.42 mg/dL (0.55-1.02); EST Glomerular Filtration Rate 173 mL/min (>60); Est Glom Filt Rate - Afr Amer 209 mL/min (>60); Estimated Creatinine Clearance 99.52 ml/min; Globulin 2.3 g/dL (2.2-4.2); Glucose 106 mg/dL (74-106); Magnesium 3.5 mg/dL (1.6-2.6); Potassium 4.7 mmol/L (3.5-5.1); Protein, Total 3.9 g/dL (6.4-8.2); Sodium Level 133 mmol/L (136-145)
--- NOTE | 2022-05-23 08:08 | US_ITS ---
INDICATION: RUQ abscess inferior to gallbladder EXAMINATION: Ultrasound US Abdomen Limited (quadrant) TECHNIQUE: Mcmahan scale imaging with graded compression and color doppler was obtained of the right lower quadrant. COMPARISON: CT abdomen/pelvis without contrast from 05/22/2022. FINDINGS: There is a 4.5 x 5.7 x 1.1 cm complex predominately hypoechoic fluid collection in the right upper quadrant below the liver within the peritoneum and abdominal wall compatible with the finding seen on recent CT study. There is increased peripheral vascularity and hyperemia. US/Abdomen Limited IMPRESSION: Abscess in the right upper quadrant peritoneum/wall compatible with the finding seen on CT study. Electronically Signed: Nik Haddad, at 11:57 EST ,
[2022-05-23 08:36] LABS: Differential Comment SCANNED
[2022-05-23 08:51] LABS: Hematocrit 16.5 % (37-47); POSITIVE COUNT YES
[2022-05-23 09:01] LABS: Hemoglobin 5.6 g/dL (12.0-15.0)
[2022-05-23] MEDS: Loperamide 2 MG Capsule PO (10:04)
[2022-05-23] MEDS: Ondansetron 4 MG/2 ML Vial IV (10:05)
[2022-05-23] MEDS: 0.9 % NaCl (Sterile) Posiflush 10 mL IV ×5 (10:05→17:41)
--- NOTE | 2022-05-23 10:35 | CASEMGMT ---
RN TERESA Face to Face with patient for initial transition planning/care coordination assessment. RN CM introduced self and role at [facility]. Patient lying in bed, alert and oriented, sister and friend at bedside. Patient willing to participate in assessment and is able to answer all questions appropriately. Care providers, pharmacy, and demographics verified. Patient wishes to discharge home, denies need for home health at this time. Patient states she has no further needs or concerns at this time. CM to follow for discharge planning needs that may arise. PCP: [facility] Specialists: Ana, oncologist; Rico, senior network architect; [facility], [facility], surgeon Preferred Pharmacy: [id number] Insurance: [employer] Just for Me Prescription Benefit: yes Living Will/HPOA: none, would like to complete, SW notified LNOK: parents Living Arrangements: Patient normally lives with parents. Patient states she will be going to her brother's or sister's house at discharge, both have first floor setup. Family assists patient with ADLs Transportation: parents DME/HHC: Patient has shower chair, BSC, and wheelchair. No previous HHC or SNF Disposition Plan: Patient to discharge home with family support and follow-up plans in place. Josefa DALTON, RN, CM
--- NOTE | 2022-05-23 11:37 | WOUNDNOTE ---
wound photo: right medial lower leg
[2022-05-23] MEDS: proCHLORPERazine 10 MG/2 ML Vial 5 MG IV (13:06)
[2022-05-23] MEDS: Morphine 2 MG/ML Syringe IV ×2 (13:33→17:41)
--- NOTE | 2022-05-23 14:01 | CASEMGMT ---
SW was informed that patient and family were asking to complete Healthcare Power of Spinning Mule Tender and Healthcare Living Will. SW went to patient's room. Introduced self and role at [facility]. Patient was sleeping, however the individual present wanted the documents. This individual said she will complete them with patient and when they are ready they can let someone know. Eladia Dela Cruz MUSICAL STRING MAKER [employer]
[2022-05-23 14:09] LABS: Pathologist Review Reviewed
[2022-05-23 14:14] LABS: Pathologist Review Reviewed
--- NOTE | 2022-05-23 16:35 | PCM.PN.HOSP ---
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 Intermittent nausea, no significant diarrhea. Did have hemoglobin of 5.2 and was transfused 2 units, repeat remains low. Likely in part due to chemotherapy and she was significantly dehydrated upon admission so elevation of hemoglobin was probably in part hemoconcentration. Objective Data Objective Data Vital Signs: Vital Signs Temp Pulse Resp BP Pulse Ox O2 Del Method 98.1 F 105 H 16 113/83 H 98 Room Air 05/23/22 16:00 05/23/22 16:00 05/23/22 16:00 05/23/22 16:00 05/23/22 16:00 05/23/22 16:00 Oxygen Delivery Method Room Air Weight: 36.5 kg Body Mass Index (BMI) 19.3 Intake & Output: Intake and Output for Last 24 Hours 05/21/22 05/22/22 05/23/22 23:59 23:59 23:59 Intake Total 2545.27 / 2905.27 4649.50 / 4649.50 Output Total 500 / 500 Balance 2545.27 / 2755.27 4149.50 / 4149.50 Medical Nutrition Assessment Dietitian: Malnutrition Criteria Met Start: 05/23/22 13:14 Freq: Status: Active Protocol: Document 05/23/22 13:14 LO (Rec: 05/23/22 13:15 [id number]) Nutrition Malnutrition Evidence of Malnutrition Exists Yes Malnutrition (severe): Chronic Evidenced By Suboptimal Energy Intake ( Severe),Weight Loss (Severe) Intake Problem Increased Nutrient Needs (specify) Etiology calories/protein related to increased demand for healing and breast cancer Signs/Symptoms as evidenced by right leg stasis ulcer and pt on chemotherapy Status Active Problem Clinical Problem Chronic Disease or Condition Related Malnutrition Etiology related to lung cancer Signs/Symptoms as evidenced by PO intakes >75 % of estimated energy needs for >1 month and 26.3lbs (24.6 %) weight loss in 3 months Status Active Problem Recommendation Dietitian Recommendations/Changes ADAT to Low Fiber diet when medically able. Recommend 120mL Ensure Clear 4x when diet advances to Clear Liquid, then recommend 118mL Ensure Compact 4x daily when diet >CL to provide supplemental energy and to promote weight gain. Recommend Adrian BID with lunch and dinner once diet advances to promote wound healing. Lab / Micro Data Result Diagrams: 05/23/22 08:42 05/23/22 05:00 Labs: Laboratory Results - last 24 hr 05/22/22 13:15: Diff Path Review Reviewed 05/22/22 13:15: Phosphorus 2.2 L 05/22/22 20:55: Sodium 135 L, Potassium 2.2 L*, Chloride 99, Carbon Dioxide 23.0, Anion Gap 13, BUN 12, Creatinine 0.40 L, Estim Creat Clear Calc 104.49, Est GFR (MDRD) Af Amer 225, Est GFR (MDRD) Non-Af 186, BUN/Creatinine Ratio 30.2 H, Glucose 86, Calcium 7.4 L, Magnesium 0.9 L* 05/23/22 05:00: WBC 41.6 H*, RBC 1.76 L, Hgb 5.2 L*, Hct 16.1 L, MCV 91.5 D, MCH 29.5, MCHC 32.3, RDW Std Deviation 57.9 H, RDW Coeff of Seema 17.7 H, Plt Count 101 L, MPV 9.4, Differential Comment SCANNED, Diff Path Review Reviewed 05/23/22 05:00: Sodium 133 L, Potassium 4.7, Chloride 105, Carbon Dioxide 19.0 L, Anion Gap 9, BUN 12, Creatinine 0.42 L, Estim Creat Clear Calc 99.52, Est GFR (MDRD) Af Amer 209, Est GFR (MDRD) Non-Af 173, BUN/Creatinine Ratio 28.3 H, Glucose 106, Calcium 6.5 L*, Magnesium 3.5 H, Total Bilirubin 0.40, AST 9 L, ALT 10 L, Alkaline Phosphatase 112, Total Protein 3.9 L, Albumin 1.6 L, Globulin 2.3, Albumin/Globulin Ratio 0.7 L 05/23/22 08:40: Blood Type O POSITIVE, Antibody Screen NEGATIVE, Crossmatch See Detail 05/23/22 08:42: Hgb 5.6 L*, Hct 16.5 L Micro: Microbiology 05/22/22 14:20 Urine, Clean Catch Urine Culture - Final Mixed Gram Positive Organisms 05/22/22 18:15 Nasal Secretion SARS-CoV-2 & FLU Antigen (Rapid) - Final Radiography Diagnostic Testing: Radiology Impression Echocardiogram 05/22/22 17:49 Interpretation Summary The study was technically difficult. The left ventricular ejection fraction is 55 %. Mid to dstal anterior septum and apical hypokinesis. Small fibrinous anterior pericardial effusion. Ordering Physician: Ernestina Rene Referring Physician: Jam Verde MD Performed By: Riri Mclain RCS Abdomen Ultrasound 05/23/22 08:08 IMPRESSION: Abscess in the right upper quadrant peritoneum/wall compatible with the finding seen on CT study. Electronically Signed: Nik Haddad, at 11:57 EST Reading Location ID and State: [address] [address] Tel , Service support , Physical Exam Const alert Constitutional Narrative: Oriented HEENT normocephalic Eyes Eyes Narrative: EOM grossly intact, anicteric Neck supple Resp normal respiratory effort and clear to auscultation bilaterally Cardio regular rate and regular rhythm GI GI Narrative: Soft, nondistended, does have right lower quadrant tenderness that is improved, no guarding, rebound, rigidity Extremity Extremity Narrative: No edema appreciated, right lower extremity wrapped Neuro moves all extremities Neuro Narrative: No overt focal deficits appreciated Psych Psych Narrative: Cooperative, does appear slightly anxious Assessment & Plan Assessment/Plan (1) Colitis: PLAN: Plan #Acute colitis and intra-abdominal abscess CT with 3 cm phlegmon lateral to the descending colon with invasion of the anterior abdominal wall musculature Does have tachycardia, not febrile, does have elevated white blood cell count but reportedly gets an injection with her chemotherapy for her WBC which confounds this, lactic acid within normal limits and blood pressure stable Cultures ordered IV fluids Surgery consulted Continue clinda and gentamicin given her anaphylaxis to penicillin, can consider meropenem but concern for cross reaction Pain control 12?27: Surgeries evaluated and will obtain ultrasound of the area in question, collection may be too small for drain, continuing IV antibiotics at this time. Blood cultures pending #Acute on chronic anemia On admission hemoglobin 8.3 which was close to baseline This a.m. was 5.2, 2 units of blood ordered Will order repeat hemoglobin, no overt evidence of bleeding, suspect this is in part delusional and also due to chemotherapy Continue to monitor May need outpatient colonoscopy once stable #Breast cancer undergoing chemotherapy Chemotherapy due next week Was post to have an appointment with her oncologist tomorrow Given active cancer with chemotherapy and poor clinical status will consult her oncologist #Hypokalemia Replaced, repeat BMP #Right lower extremity wound On broad-spectrum antibiotics at this time Wound care consulted #DVT ppx: Rashaun Rene MD Charges/Coding Visit Charges Inpatient E&M: 64283 Subs Hosp L2
--- NOTE | 2022-05-23 16:51 | ONC.CONSULT ---
Assessment & Plan Assessment/Plan (1) Breast cancer, left breast: Status: Acute Code(s): C50.912 - Malignant neoplasm of unspecified site of left female breast Plan: Received cycle 4 TCH on 05/10/22, supported with G CSF on day 2. WBC 41.6 today. She is tolerating chemotherapy and HER2 targeted therapy poorly secondary to diarrhea and nausea. However, use of supportive medications provided to her to palliate GI related side effects of treatment have been suboptimal. Now with acute colitis/intra abdominal abscess requiring hospital admission. Engaged in lengthy conversation about continuance vs discontinuance of the last 2 cycles of proposed neoadjuvant chemotherapy given this new complication and ongoing non healing wound of RLE. Ultimately, will make a decision when she meets with primary oncologist, Dr. Perez on 05/30/22. Reminded patient of community resources that are available to her such as [facility] [employer] and [facility] counseling services. (2) Anemia: Status: Acute Code(s): D64.9 - Anemia, unspecified Plan: Multifactorial, dilutional and secondary to inflammation and chemotherapy. 2 units PRBCs already provided. Transfuse to keep Hgb > 7. As surgery, advise patient undergo colonoscopy in the outpatient setting when able. (3) Nausea: Status: Acute Code(s): R11.0 - Nausea Plan: Multifactorial, secondary to abscess and also CINV. With the new knowledge that the patient has not been accurate with medication reconciliation in the outpatient setting related to antidepressant use, in retrospect we may have been able to use more aggressive measures for CINV prophylaxis with Zyprexa. This was avoided d/t potential risk for drug-drug interactions. Continue prn antiemetics with Compazine and Zofran. (4) Colitis: Status: Acute Code(s): K52.9 - Noninfective gastroenteritis and colitis, unspecified Plan: Managed by primary team. On broad spectrum atb. Blood cultures are still pending. Conservative measures preferred. (5) Abdominal wall abscess: Status: Acute Code(s): L02.211 - Cutaneous abscess of abdominal wall Plan: Patient to follow up with [facility] upon discharge. Will not follow further on this admission unless new problems arise. Case discussed with Dr. Sparks who was in agreement with the aforementioned plan. HPI Consult Data Date of Service:: 05/24/22 PCP / Referring Provider: Dr. Jam Verde MD Attending: Dr. Ernestina Rene MD Chief Complaint Chief Complaint: Breast cancer on treatment History of Present Illness History of Present Illness: Ms. Bere Godinez is a 41-year-old premenopausal female with?diagnosed January 18, 2022 with clinical stage IIB (T2,N1, M0) invasive ductal carcinoma of the left breast, nuclear grade 2-3,ER positive (over 95% moderate), NH positive (over 95% strong) HER2/edgardo overexpressed 3+, Ki-67 +40%. Genetic testing ([employer]) showed no known deleterious mutation. PET/CT obtained February 22, 2022 for initial staging showed no evidence for distant metastatic disease. She began neoadjuvant systemic therapy with docetaxel, carboplatin, trastuzumab and pertuzumab on February 28, 2022.?She developed rather abrupt dyspnea and orthopnea within 24 hours of cycle 2 on March 21 2022.? ER evaluation did not suggest cardiac failure, CTA showed no evidence of PE but there were multiple bilateral nodules concerning for metastatic disease.? Nodules were too small to biopsy by CT guidance and resolved spontaneously without a specific diagnosis being made a week later. Developed a right lower extremity wound 04/04/22 and follows with the [facility] wound center. Main toxicities encountered with chemotherapy have been GI, with mucositis, diarrhea, electrolyte imbalance (hypokalemia and hypomagnesemia).? As of cycle 3 Perjeta was discontinued and GI symptoms improved modestly. Her care has been complicated by suboptimal adherence to the use of supportive medications at home, primarily antiemetics, antidiarrheals, and oral electrolyte replacement. This has led to dehydration and tachycardia requiring frequent interventions with IV fluids and electrolytes in the [facility] infusion suite and weekly office visits. She received cycle 4 docetaxel, carboplatin, trastuzumab on 05/10/22. The patient presented to [facility] ED on 05/22/22 with c/o nausea and RLQ pain.? Labs showed WBC 47.7, Hgb 8.3 and plt 158, potassium 2.2, calcium 7.4, magnesium 0.9. ?CT abdomen with contrast showed 3 cm phlegmon lateral to the descending colon with invasion of the anterior abd wall. She was subsequently admitted for management of acute colitis. Began broad spectrum antibiotics, IV hydration and correction of electrolyte aberrancies.? Surgery consulted and advised continuation of IV antibiotics, remain NPO, and colonoscopy in the near future. ?Patient was found to have Hgb 5.2 this morning.? 2 units of PRBCs have been ordered by primary team.? Interval History Interval History: Upon entering the room, patient adult brother, friend, and mother and father are conversing with patient. Rates RLQ 4/10 at this time. Able to take ice chips. Admits she only used scopolamine patch for three days last week and was judicial with ondansetron. Has produced 2 loose BMs today, she is unsure if those contained blood. During the conversation, requests were made by family for durable medical equipment to have in the home and for antidepressants/appetite stimulants. Patient admits she has not taken cymbalta for months. Advanced Directives Power of Sales Administration Manager: No Living Will: No [facility] Medical History (Updated 05/23/22 @ 17:28 by Chelsea Hernandez TEAM MANAGER, TEAM MANAGER-C) Acid reflux Alcohol use Anemia Anxiety Arthritis Arthrogryposis Braces as ambulation aid Breast cancer Breast cancer, left breast Cancer CINV (chemotherapy-induced nausea and vomiting) CPAP (continuous positive airway pressure) dependence Dehydration Depression Diarrhea Diarrhea due to drug Elevated C-reactive protein (CRP) (12/26/21) Encounter for chemotherapy management Encounter for education Heartburn History of diverticulitis History of echocardiogram History of edema History of irregular heartbeat Hypokalemia Hypomagnesemia Leg sore Lung nodule, multiple Mucositis (ulcerative) due to antineoplastic therapy Mucositis (ulcerative) due to antineoplastic therapy Muscular dystrophy Nausea Non-smoker Oral candidiasis Port-A-Cath in place Sleep apnea Thrombocytosis Thrombocytosis Wears glasses Home Medications cholecalciferol (vitamin D3) 25 mcg (1,000 unit) capsule 2,000 unit PO DAILY Check with primary doctor 01/25/22 [History Last Taken Unknown] duloxetine 20 mg capsule,delayed release 20 mg PO DAILY Check with primary doctor 01/25/22 [History Last Taken Unknown] lidocaine-prilocaine 2.5 %-2.5 % topical cream 1 applic topical ONCE PRN port access 30 days #30 grams 02/23/22 [Rx Last Taken Unknown] prochlorperazine maleate 10 mg tablet 10 mg PO Q6H PRN nausea and vomiting #30 tabs 02/23/22 [Rx Last Taken Unknown] Magnesium Malate 750 mg PO QHS Check with primary doctor 02/28/22 [History Last Taken Unknown] ondansetron 8 mg disintegrating tablet 8 mg PO Q8H PRN nausea and vomiting #30 tabs 04/18/22 [Rx Last Taken Unknown] potassium chloride 20 mEq/15 mL oral liquid 20 meq (15 mL) PO TID #450 mL 05/02/22 [Rx Last Taken Unknown] MAGIC MOUTH WASH (BMX) 180 mL suspension 15 ml PO .Q6HR Check with primary doctor 05/22/22 [History Last Taken Unknown] dexamethasone 4 mg tablet 8 mg PO .COMPLEX Check with primary doctor 05/22/22 [History Last Taken Unknown] levofloxacin 500 mg tablet 500 mg PO DAILY Check with primary doctor 05/22/22 [History Last Taken Unknown] scopolamine base 1 mg over 3 days transdermal patch 1 patch transdermal Q72H Check with primary doctor 05/22/22 [History Last Taken Unknown] Allergy/AdvReac Type Severity Reaction Status Date / Time kiwi Allergy Mild Anaphylaxis Verified 05/22/22 11:58 Penicillins Allergy Mild Anaphylaxis Verified 05/22/22 11:58 Family History Mother Diabetes Hypertension High cholesterol Thyroid disorder Uncle Cancer non-hodgkins lymphoma Grandfather Heart disease Grandmother Heart disease Brother Hypertension Unknown Breast cancer mother had 2 cousins with aggressive breast cancer Unknown Thyroid cancer maternal cousin Other Arthritis Depression Surgical History H/O release of tendon History of lymph node biopsy History of spinal fusion Social History household members: family current occupational status: employed current occupation: [employer] Smoking Status: Never smoker alcohol intake: current alcohol intake frequency: holidays/special occasions only details: occasional substance use type: does not use ROS Constitutional Constitutional: Denies chills, fever(s) or night sweats Eyes Eyes: Denies change in vision ENT HEENT: Denies headache(s), nasal congestion or sore throat Cardiovascular Cardiovascular: Denies chest pain or palpitations Respiratory/Chest Respiratory/Chest: Denies cough or productive cough Gastrointestinal Gastrointestinal: Reports abdominal pain, diarrhea and early satiety; Denies coffee ground emesis, hematochezia or melena Genitourinary Genitourinary: Denies burning urination or urinary frequency Musculoskeletal Musculoskeletal: Denies joint pain Integumentary Integumentary: Reports alopecia, dry skin and other Details: RLE wound ; Denies rash Neurologic Neurologic: Reports other Details: General weakness ; Denies dizziness or tingling Psychiatric Psychiatric: Reports depression; Denies anxiety or suicidal ideation Hematologic/Lymphatic Hematologic/Lymphatic: Denies easy bleeding Physical Exam Narrative ECOG 2 Const alert and oriented x3 General Appearance: ill appearing Positive for chronically HEENT Face and Sinus: normal facial exam Mouth: No mucositis and No thrush Eyes General Eye: normal appearance of both eyes Neck supple and no JVD Chest Chest Narrative: Port upper chest accessed with gripper and covered with DSD Resp clear to auscultation bilaterally Cardio regular rate and regular rhythm Jugular Venous Distention: Negative for JVD GI soft to palpation and non-distended; Negative for hepatosplenomegaly Palpation: tender RLQ Skin Skin Narrative: Right leg dressings uninterrupted Rashes: no rashes Neuro Speech: speech normal Gait (Neuro): unable to assess gait Psych mental status grossly normal Attitude: calm Vital Signs Temperature 98.1 F 05/23/22 16:00 Temperature Source Temporal 05/23/22 16:00 Pulse Rate 105 H 05/23/22 16:00 Pulse Strength Weak (1+) 05/23/22 08:24 Respiratory Rate 16 05/23/22 16:00 Respiratory Effort Non-Labored 05/23/22 14:00 Respiratory Depth Normal 05/23/22 14:00 Respiratory Pattern Normal 05/23/22 14:00 Blood Pressure 113/83 H 05/23/22 16:00 Blood Pressure Mean 93 05/23/22 16:00 Blood Pressure Source Monitor 05/23/22 16:00 Blood Pressure Position Semi-Fowlers 05/23/22 16:00 Blood Pressure Location Left Arm 05/23/22 16:00 Pulse Ox 98 05/23/22 16:00 Oxygen Delivery Method Room Air 05/23/22 16:00 Laboratory Results - last 24 hr 05/22/22 13:15: Diff Path Review Reviewed 05/22/22 13:15: Phosphorus 2.2 L 05/22/22 20:55: Sodium 135 L, Potassium 2.2 L*, Chloride 99, Carbon Dioxide 23.0, Anion Gap 13, BUN 12, Creatinine 0.40 L, Estim Creat Clear Calc 104.49, Est GFR (MDRD) Af Amer 225, Est GFR (MDRD) Non-Af 186, BUN/Creatinine Ratio 30.2 H, Glucose 86, Calcium 7.4 L, Magnesium 0.9 L* 05/23/22 05:00: WBC 41.6 H*, RBC 1.76 L, Hgb 5.2 L*, Hct 16.1 L, MCV 91.5 D, MCH 29.5, MCHC 32.3, RDW Std Deviation 57.9 H, RDW Coeff of Seema 17.7 H, Plt Count 101 L, MPV 9.4, Differential Comment SCANNED, Diff Path Review Reviewed 05/23/22 05:00: Sodium 133 L, Potassium 4.7, Chloride 105, Carbon Dioxide 19.0 L, Anion Gap 9, BUN 12, Creatinine 0.42 L, Estim Creat Clear Calc 99.52, Est GFR (MDRD) Af Amer 209, Est GFR (MDRD) Non-Af 173, BUN/Creatinine Ratio 28.3 H, Glucose 106, Calcium 6.5 L*, Magnesium 3.5 H, Total Bilirubin 0.40, AST 9 L, ALT 10 L, Alkaline Phosphatase 112, Total Protein 3.9 L, Albumin 1.6 L, Globulin 2.3, Albumin/Globulin Ratio 0.7 L 05/23/22 08:40: Blood Type O POSITIVE, Antibody Screen NEGATIVE, Crossmatch See Detail 05/23/22 08:42: Hgb 5.6 L*, Hct 16.5 L Microbiology 05/22/22 14:20 Urine, Clean Catch Urine Culture - Final Mixed Gram Positive Organisms 05/22/22 18:15 Nasal Secretion SARS-CoV-2 & FLU Antigen (Rapid) - Final Diagnostic Data Abdomen/Pelvis CT 05/22/22 12:59 IMPRESSION: 3 cm phlegmon lateral to the descending colon with invasion of the anterior abdominal wall musculature. Differential diagnosis includes infectious colitis, diverticulitis, or Crohn''s colitis. Electronically Signed: Matthew Melendez MD at 16:21 EST , Echocardiogram 05/22/22 17:49 Interpretation Summary The study was technically difficult. The left ventricular ejection fraction is 55 %. Mid to dstal anterior septum and apical hypokinesis. Small fibrinous anterior pericardial effusion. Ordering Physician: Ernestina Rene Referring Physician: Jam Verde MD Performed By: Riri Mclain RCS Abdomen Ultrasound 05/23/22 08:08 IMPRESSION: Abscess in the right upper quadrant peritoneum/wall compatible with the finding seen on CT study. Electronically Signed: Nik Haddad, at 11:57 EST ,
[2022-05-23 17:44] LABS: Hemoglobin 11.8 g/dL (12.0-15.0)
--- NOTE | 2022-05-23 17:52 | PCM.OPRPT ---
Report of Operation Date of Procedure: 05/23/22 Pre-Operative Diagnosis: Right abdominal abscess Post-Operative Diagnosis: Same Surgery/Procedure Performed:: Aspiration of right abdominal abscess Surgeon: Samantha Osorio Type of Anesthesia: Local Estimated Blood Loss (mL): <10 cc Description of Procedure: Right lower abdomen prepped with chlorhexidine. Ultrasound-guided needle aspiration was done to did get about 10 cc of purulent along with some blood material but unable to completely collapsed the cavity as the drainage with likely thicker. Aspiration was sent for gram stain and culture. Needle site was dressed with 4 x 4's and tape. Patient tolerated procedure well. Complications none
--- NOTE | 2022-05-23 22:17 | CT_ITS ---
EXAM: CT ANGIOGRAPHY CHEST WITH INTRAVENOUS CONTRAST CLINICAL INDICATION: Suspected PE TECHNIQUE: Helically acquired angiography images were obtained of the chest with intravenous contrast. This CT exam was performed using one or more of the following dose reduction techniques: automated exposure control, adjustment of the mA and/or kV according to patient size, and/or use of iterative reconstruction technique. This report was created using Eight19 report generation technology. MIP reconstructed images were created and reviewed. Coronal and sagittal reformatted images were created and reviewed. CONTRAST: IV 75mL [id number]-370 RADIATION DOSE: Total DLP: 153.67 mGy-cm. COMPARISON: CTA chest of 03/26/2022. FINDINGS: LIMITATIONS: Extensive streak artifact from Cline style rods again noted. PULMONARY ARTERIES: Unremarkable. Normal in caliber. No evidence of pulmonary embolism. AORTA: Unremarkable. Normal in caliber. No evidence of dissection. GREAT VESSELS OF AORTIC ARCH: Unremarkable. Normal in caliber. No evidence of dissection. LUNGS AND PLEURAL SPACES: Small to moderate right pleural effusion with adjacent compressive atelectasis. Left basilar atelectasis. No patchy pneumonia. No mass. HEART: No coronary artery calcification is visualized. No significant pericardial effusion. MEDIASTINUM: No mediastinal or hilar adenopathy. Esophagus is unremarkable. No hiatal hernia. THYROID: Unremarkable. No thyroid lesions. BONES/JOINTS: Cline style rods remain in place. Stable thoracic dextroscoliosis. Degenerative osteoarthritis of both glenohumeral joints. No acute osseous abnormality. No suspicious lytic or blastic abnormality. INTRAPERITONEAL SPACE: Visualized portions of the liver, spleen, adrenal glands and renal upper poles are unremarkable. No pneumoperitoneum is noted. TUBES, LINES AND DEVICES: LifePort type catheter in place. CT/CTA Chest W/WO Contrast IMPRESSION: Negative for PE. No thoracic aortic dissection. Small-moderate moderate right pleural effusion. Bibasilar atelectasis. Electronically Signed: Guanaco Iverson MD at 23:41 EST ,
[2022-05-23] MEDS: Acetaminophen 650 MG/20 ML UDC 1000 MG PO (23:09)
[2022-05-24] VITALS (17 sets, daily range): BP systolic 80–101; BP diastolic 61–81; PULSE 105–141; RESP 15–27; TEMP 36.2–36.7; O2SAT 95–100
[2022-05-24] MEDS: Clindamycin 600 MG/50 ML BAG 100 MG IV ×2 (01:05→05:43)
[2022-05-24] MEDS: 0.9% Normal Saline 1,000 ML 125 ML IV ×2 (01:05→08:42)
--- NOTE | 2022-05-24 02:17 | PN.HOSP_ITS ---
Hospitalist Note Patient with persistent tachycardia, mildly hypotensive. Given ongoing presentation with underlying CA history to be cautious CTPA obtained. No ev idence of PE, noted BL small to moderate pleural effusions. Will continue judicious hydration and bolus as needed.
[2022-05-24] MEDS: Acetaminophen 650 MG/20 ML UDC 1000 MG PO ×3 (05:30→22:14)
[2022-05-24] MEDS: metroNIDAZOLE 500 MG/100 ML BAG 100 MG IV (07:00)
[2022-05-24 07:08] LABS: Absolute Lymphocyte Count 1.47 X10^3/uL (0.83-4.51); Basophil# 0.07 X10^3/uL; Basophil% 0.1 % (0-1); Hematocrit 32.5 % (37-47); Hemoglobin 11.5 g/dL (12.0-15.0); Lymphocyte # 1.47 X10^3/ul (0.83-4.51); Mean Corp Hgb Conc 35.4 g/dL (32-36); Mean Corpuscular Hgb 29.9 pg (27.0-32.0); Mean Corpuscular Volume 84.6 fL (81-99); Mean Platelet Vol. 9.1 fl (6.2-12.0); Monocyte# 3.33 X10^3/uL; Monocyte% 4.5 % (0-10); NRBC Flagged by Analyzer 0 % (0-5); Neutrophil # 67.01 X10^3/uL (2.7-7.7); Neutrophil % 89.5 % (47-70); POSITIVE COUNT YES; POSITIVE DIFFERENTIAL YES; POSITIVE MORPHOLOGY YES; Platelet Count 148 K/mm3 (150-450); RBC Distribution Width CV 17.6 % (11.6-14.6); RBC Distribution Width SD 52.3 fl (35.1-43.9); Red Blood Count 3.84 M/mm3 (4.2-5.4); White Blood Count 74.8 K/mm3 (4.4-11.0)
[2022-05-24 07:21] LABS: International Normalized Ratio 2.9; Prothrombin Time (Protime)PT. 29.8 SECONDS (11.7-14.9)
[2022-05-24 07:22] LABS: Differential Indicated SCAN CRITERIA MET
--- NOTE | 2022-05-24 08:00 | NURSING ---
Emergency documentation started at this time.
[2022-05-24 08:05] LABS: ALB/GLOB Ratio 0.7 RATIO (0.9-2.4); AST(SGOT) 12 U/L (15-37); Alanine Aminotransfer ALT/SGPT 10 U/L (13-56); Albumin, Serum 1.8 g/dL (3.2-5.0); Alkaline Phosphatase 137 U/L (45-117); Anion Gap 14 (5-15); BUN 10 mg/dL (7-18); BUN/Creat Ratio 16.5 RATIO (10-20); Calcium,Total 7.6 mg/dL (8.5-10.1); Chloride 114 mmol/L (98-107); Creatinine, Serum 0.61 mg/dL (0.55-1.02); EST Glomerular Filtration Rate 114 mL/min (>60); Est Glom Filt Rate - Afr Amer 138 mL/min (>60); Estimated Creatinine Clearance 68.52 ml/min; Globulin 2.6 g/dL (2.2-4.2); Glucose 161 mg/dL (74-106); Magnesium 1.6 mg/dL (1.6-2.6); Phosphorus 3.6 mg/dL (2.5-4.9); Potassium 2.4 mmol/L (3.5-5.1); Protein, Total 4.4 g/dL (6.4-8.2); Sodium Level 142 mmol/L (136-145)
[2022-05-24 08:17] LABS: Differential Comment SCANNED
--- NOTE | 2022-05-24 08:39 | PCM.PN.HOSP ---
Subjective Subjective Has had borderline blood pressure and has been tachycardic, had CT overnight which was negative for PE. Despite this reports she is actually feeling better overall. Abdominal pain improving and nausea has improved significantly, still has had some diarrhea but this is chronic. Objective Data Objective Data Vital Signs: Vital Signs Temp Pulse Resp BP Pulse Ox O2 Del Method 97.7 F L 105 H 18 87/61 L 98 Room Air 05/24/22 08:37 05/24/22 08:37 05/24/22 08:37 05/24/22 08:37 05/24/22 08:37 05/24/22 08:37 Oxygen Delivery Method Room Air Weight: 36.5 kg Body Mass Index (BMI) 19.3 Intake & Output: Intake and Output for Last 24 Hours 05/22/22 05/23/22 05/24/22 23:59 23:59 23:59 Intake Total 2545.27 / 2905.27 5799.50 / 5799.50 1780 / 1780 Output Total 500 / 500 Balance 2545.27 / 2755.27 5299.50 / 5299.50 1780 / 1780 Medical Nutrition Assessment Dietitian: Malnutrition Criteria Met Start: 05/23/22 13:14 Freq: Status: Active Protocol: Document 05/23/22 13:14 LO (Rec: 05/23/22 13:15 [id number]) Nutrition Malnutrition Evidence of Malnutrition Exists Yes Malnutrition (severe): Chronic Evidenced By Suboptimal Energy Intake ( Severe),Weight Loss (Severe) Intake Problem Increased Nutrient Needs (specify) Etiology calories/protein related to increased demand for healing and breast cancer Signs/Symptoms as evidenced by right leg stasis ulcer and pt on chemotherapy Status Active Problem Clinical Problem Chronic Disease or Condition Related Malnutrition Etiology related to lung cancer Signs/Symptoms as evidenced by PO intakes >75 % of estimated energy needs for >1 month and 26.3lbs (24.6 %) weight loss in 3 months Status Active Problem Recommendation Dietitian Recommendations/Changes ADAT to Low Fiber diet when medically able. Recommend 120mL Ensure Clear 4x when diet advances to Clear Liquid, then recommend 118mL Ensure Compact 4x daily when diet >CL to provide supplemental energy and to promote weight gain. Recommend Adrian BID with lunch and dinner once diet advances to promote wound healing. Lab / Micro Data Result Diagrams: 05/24/22 06:36 05/24/22 06:36 Labs: Laboratory Results - last 24 hr 05/22/22 13:15: Diff Path Review Reviewed 05/23/22 05:00: Diff Path Review Reviewed 05/23/22 08:40: Blood Type O POSITIVE, Antibody Screen NEGATIVE, Crossmatch See Detail 05/23/22 08:42: Hgb 5.6 L*, Hct 16.5 L 05/23/22 17:16: Hgb 11.8 L 05/24/22 06:36: WBC 74.8 H*, RBC 3.84 L, Hgb 11.5 L, Hct 32.5 L, MCV 84.6 D, MCH 29.9, MCHC 35.4 D, RDW Std Deviation 52.3 H, RDW Coeff of Seema 17.6 H, Plt Count 148 L, MPV 9.1, Immature Gran % (Auto) 3.900 H, Neut % (Auto) 89.5 H, Lymph % (Auto) 2.0 L, [place] % (Auto) 4.5, Eos % (Auto) 0.0, Baso % (Auto) 0.1, Absolute Neuts (auto) 67.0 H, Absolute Lymphs (auto) 1.47, Nucleated RBC % 0, Differential Comment SCANNED, Diff Path Review May foll 05/24/22 06:36: PT 29.8 H, INR 2.9 05/24/22 06:36: Sodium 142, Potassium 2.4 L*, Chloride 114 H, Carbon Dioxide 14.0 L, Anion Gap 14, BUN 10, Creatinine 0.61, Estim Creat Clear Calc 68.52, Est GFR (MDRD) Af Amer 138, Est GFR (MDRD) Non-Af 114, BUN/Creatinine Ratio 16.5, Glucose 161 H, Calcium 7.6 L, Phosphorus 3.6, Magnesium 1.6, Total Bilirubin 0.90, AST 12 L, ALT 10 L, Alkaline Phosphatase 137 H, Total Protein 4.4 L, Albumin 1.8 L, Globulin 2.6, Albumin/Globulin Ratio 0.7 L Micro: Microbiology 05/23/22 17:40 Aspirate - Abdominal Gram Stain - Final 05/22/22 14:20 Urine, Clean Catch Urine Culture - Final Mixed Gram Positive Organisms 05/22/22 18:15 Nasal Secretion SARS-CoV-2 & FLU Antigen (Rapid) - Final Radiography Diagnostic Testing: Radiology Impression Echocardiogram 05/22/22 17:49 Interpretation Summary The study was technically difficult. The left ventricular ejection fraction is 55 %. Mid to dstal anterior septum and apical hypokinesis. Small fibrinous anterior pericardial effusion. Ordering Physician: Ernestina Rene Referring Physician: Jam Verde MD Performed By: Riri Mclain RCS Abdomen Ultrasound 05/23/22 08:08 IMPRESSION: Abscess in the right upper quadrant peritoneum/wall compatible with the finding seen on CT study. Electronically Signed: Nik Haddad, at 11:57 EST , Chest CTA 05/23/22 22:17 IMPRESSION: Negative for PE. No thoracic aortic dissection. Small-moderate moderate right pleural effusion. Bibasilar atelectasis. Electronically Signed: Guanaco Iverson MD at 23:41 EST , Physical Exam Const alert Constitutional Narrative: Oriented HEENT normocephalic Eyes Eyes Narrative: EOM grossly intact, anicteric Neck supple Resp normal respiratory effort and clear to auscultation bilaterally Cardio regular rhythm Cardio Narrative: Mildly tachycardic GI GI Narrative: Soft, nondistended, tenderness improving, no guarding, rebound, rigidity Extremity Extremity Narrative: No edema appreciated, right lower extremity wrapped Neuro moves all extremities Neuro Narrative: No overt focal deficits appreciated Psych Psych Narrative: Cooperative, does appear slightly anxious Assessment & Plan Assessment/Plan (1) Colitis: PLAN: Plan #Acute colitis and intra-abdominal abscess CT with 3 cm phlegmon lateral to the descending colon with invasion of the anterior abdominal wall musculature Does have tachycardia, not febrile, does have elevated white blood cell count but reportedly gets an injection with her chemotherapy for her WBC which confounds this, lactic acid within normal limits and blood pressure stable Cultures ordered IV fluids Surgery consulted Continue clinda and gentamicin given her anaphylaxis to penicillin, can consider meropenem but concern for cross reaction Pain control 05/23: Surgeries evaluated and will obtain ultrasound of the area in question, collection may be too small for drain, continuing IV antibiotics at this time. Blood cultures pending 05/24: Right abdominal abscess aspirated, culture pending. Other cultures also pending. Surgery following. Oncology following. adjusting abx, lactic and vbg pending, fluids, ID c/sltd #High anion gap metabolic acidosis Bicarb is 14 and anion gap is also 14, reports she is feeling better overall but is slightly tachycardic and has somewhat low BP. Stat lactic acid and stat VBG ordered. She has been receiving fluids and abx but will adjust pending ID c/s. #Acute on chronic anemia On admission hemoglobin 8.3 which was close to baseline This a.m. was 5.2, 2 units of blood ordered Will order repeat hemoglobin, no overt evidence of bleeding, suspect this is in part delusional and also due to chemotherapy Continue to monitor Needs outpatient colonoscopy once stable 05/24: Robust response to 2 units, hemoglobin now 11.5. No signs of bleeding. #Breast cancer undergoing chemotherapy Chemotherapy due next week Was post to have an appointment with her oncologist tomorrow Given active cancer with chemotherapy and poor clinical status will consult her oncologist 05/24: will f/u outpt on d/c #Hypokalemia Replaced, repeat BMP #Right lower extremity wound On broad-spectrum antibiotics at this time Wound care consulted #DVT ppx: Rashaun Rene MD Charges/Coding Visit Charges Inpatient E&M: 68774 Subs Hosp L2
[2022-05-24] MEDS: Loperamide 2 MG Capsule 4 MG PO (09:40)
--- NOTE | 2022-05-24 09:41 | PCM.PN.SRG ---
Subjective Subjective Patient is a 41 y/o F I am following for a pelvic abscess. Patient notes her abdominal pain has improved this morning. Objective Data Objective Data Vital Signs: Vital Signs Temp Pulse Resp BP Pulse Ox O2 Del Method 97.7 F L 105 H 18 87/61 L 98 Room Air 05/24/22 08:37 05/24/22 08:37 05/24/22 08:37 05/24/22 08:37 05/24/22 09:37 05/24/22 09:37 Oxygen Delivery Method Room Air Weight: 80 lb 7.5 oz Body Mass Index (BMI) 19.3 Intake & Output: Intake and Output for Last 24 Hours 05/22/22 05/23/22 05/24/22 23:59 23:59 23:59 Intake Total 2545.27 / 2905.27 5799.50 / 5799.50 2832.08 / 2832.08 Output Total 500 / 500 Balance 2545.27 / 2755.27 5299.50 / 5299.50 2832.08 / 2832.08 Medical Nutrition Assessment Dietitian: Malnutrition Criteria Met Start: 05/23/22 13:14 Freq: Status: Active Protocol: Document 05/23/22 13:14 LO (Rec: 05/23/22 13:15 LO [id number]) Nutrition Malnutrition Evidence of Malnutrition Exists Yes Malnutrition (severe): Chronic Evidenced By Suboptimal Energy Intake ( Severe),Weight Loss (Severe) Intake Problem Increased Nutrient Needs (specify) Etiology calories/protein related to increased demand for healing and breast cancer Signs/Symptoms as evidenced by right leg stasis ulcer and pt on chemotherapy Status Active Problem Clinical Problem Chronic Disease or Condition Related Malnutrition Etiology related to lung cancer Signs/Symptoms as evidenced by PO intakes >75 % of estimated energy needs for >1 month and 26.3lbs (24.6 %) weight loss in 3 months Status Active Problem Recommendation Dietitian Recommendations/Changes ADAT to Low Fiber diet when medically able. Recommend 120mL Ensure Clear 4x when diet advances to Clear Liquid, then recommend 118mL Ensure Compact 4x daily when diet >CL to provide supplemental energy and to promote weight gain. Recommend Adrian BID with lunch and dinner once diet advances to promote wound healing. Lab / Micro Data Result Diagrams: 05/24/22 06:36 05/24/22 06:36 Labs: Laboratory Results - last 24 hr 05/22/22 13:15: Diff Path Review Reviewed 05/23/22 05:00: Diff Path Review Reviewed 05/23/22 08:40: Blood Type O POSITIVE, Antibody Screen NEGATIVE, Crossmatch See Detail 05/23/22 17:16: Hgb 11.8 L 05/24/22 06:36: WBC 74.8 H*, RBC 3.84 L, Hgb 11.5 L, Hct 32.5 L, MCV 84.6 D, MCH 29.9, MCHC 35.4 D, RDW Std Deviation 52.3 H, RDW Coeff of Seema 17.6 H, Plt Count 148 L, MPV 9.1, Immature Gran % (Auto) 3.900 H, Neut % (Auto) 89.5 H, Lymph % (Auto) 2.0 L, [place] % (Auto) 4.5, Eos % (Auto) 0.0, Baso % (Auto) 0.1, Absolute Neuts (auto) 67.0 H, Absolute Lymphs (auto) 1.47, Nucleated RBC % 0, Differential Comment SCANNED, Diff Path Review May 05/24/22 06:36: PT 29.8 H, INR 2.9 05/24/22 06:36: Sodium 142, Potassium 2.4 L*, Chloride 114 H, Carbon Dioxide 14.0 L, Anion Gap 14, BUN 10, Creatinine 0.61, Estim Creat Clear Calc 68.52, Est GFR (MDRD) Af Amer 138, Est GFR (MDRD) Non-Af 114, BUN/Creatinine Ratio 16.5, Glucose 161 H, Calcium 7.6 L, Phosphorus 3.6, Magnesium 1.6, Total Bilirubin 0.90, AST 12 L, ALT 10 L, Alkaline Phosphatase 137 H, Total Protein 4.4 L, Albumin 1.8 L, Globulin 2.6, Albumin/Globulin Ratio 0.7 L Micro: Microbiology 05/23/22 17:40 Aspirate - Abdominal Gram Stain - Final 05/23/22 17:40 Aspirate - Abdominal Wound Culture - Preliminary No growth-Final to follow 05/22/22 14:20 Urine, Clean Catch Urine Culture - Final Mixed Gram Positive Organisms 05/22/22 18:15 Nasal Secretion SARS-CoV-2 & FLU Antigen (Rapid) - Final Radiography Diagnostic Testing: Radiology Impression Echocardiogram 05/22/22 17:49 Interpretation Summary The study was technically difficult. The left ventricular ejection fraction is 55 %. Mid to dstal anterior septum and apical hypokinesis. Small fibrinous anterior pericardial effusion. Ordering Physician: Ernestina Rene Referring Physician: Jam Verde MD Performed By: Riri Mclain RCS Abdomen Ultrasound 05/23/22 08:08 IMPRESSION: Abscess in the right upper quadrant peritoneum/wall compatible with the finding seen on CT study. Electronically Signed: Nik Haddad, at 11:57 EST , Chest CTA 05/23/22 22:17 IMPRESSION: Negative for PE. No thoracic aortic dissection. Small-moderate moderate right pleural effusion. Bibasilar atelectasis. Electronically Signed: Guanaco Iverson MD at 23:41 EST , Physical Exam Const alert and oriented x3 GI soft to palpation Palpation: soft and tender RLQ Assessment & Plan Assessment/Plan (1) Intra-abdominal abscess: PLAN: I am following this patient with Dr. Osorio. Plan to have a CT guided abscess drainage in radiology hopefully today. Charges/Coding Visit Charges Inpatient E&M: 92399 Subs Hosp L1
[2022-05-24 09:48] LABS: Lactic Acid 2.2 mmol/L (0.4-1.9)
[2022-05-24] MEDS: Potassium Chloride 10mEq/100mL 10 MEQ/100 ML IV.SOLN. 100 MEQ IV BOLUS ×4 (10:00→14:35)
[2022-05-24] MEDS: Magnesium Sulfate 4gm/100mL 4 GM/100 ML IV.SOLN. IV (10:19)
[2022-05-24] MEDS: Vancomycin IV 1,000 MG/200 ML BAG 200 MG IV (10:26)
--- NOTE | 2022-05-24 10:55 | PCM.RX.CS ---
Consult Pharmacy has been consulted to manage selected antiobiotic: Vancomycin Type of Consult: New start Suspected Infection: Other - INTRA-ABDOMINAL ABSCESS Labs: Sodium 142 mmol/L (136-145) 05/24/22 06:36 Potassium 2.4 mmol/L (3.5-5.1) L* 05/24/22 06:36 Chloride 114 mmol/L (98-107) H 05/24/22 06:36 Carbon Dioxide 14.0 mmol/L (21.0-32.0) L 05/24/22 06:36 Anion Gap 14 (5-15) 05/24/22 06:36 BUN 10 mg/dL (7-18) 05/24/22 06:36 Creatinine 0.61 mg/dL (0.55-1.02) 05/24/22 06:36 Est GFR (MDRD) Af Amer 138 mL/min (>60) 05/24/22 06:36 Est GFR (MDRD) Non-Af 114 mL/min (>60) 05/24/22 06:36 BUN/Creatinine Ratio 16.5 RATIO (10-20) 05/24/22 06:36 Glucose 161 mg/dL (74-106) H 05/24/22 06:36 Microbiology: Microbiology 05/23/22 17:40 Aspirate - Abdominal Gram Stain - Final 05/23/22 17:40 Aspirate - Abdominal Wound Culture - Preliminary No growth-Final to follow 05/22/22 14:20 Urine, Clean Catch Urine Culture - Final Mixed Gram Positive Organisms 05/22/22 18:15 Nasal Secretion SARS-CoV-2 & FLU Antigen (Rapid) - Final Pharmacy Plan for Drug Dosing: NEW START IV VANCOMYCIN Consulting Physician: CAYDEN Indication: INTRA-ABDOMINAL ABSCESS Goal Trough: 15-20 MG/DL SrCr: 0.61 MG/DL CrCl: 68.5 ML/MIN Comments: LOADING DOSE OF 1000MG (WEIGHT 36.5 KG) GIVEN 05/24 @ 1026 Vancomycin Dose: WILL START 500MG Q12 @ 2230 AND GET A TROUGH PRIOR TO 4TH TOTAL DOSE OF REGIMEN PER POLICY. Pending Level: 05/25/22 @ 2200 Pharmacy Service will continue to monitor and adjust dosing as required.
[2022-05-24] MEDS: 0.9 % NaCl (Sterile) Posiflush 10 mL IV (11:53)
[2022-05-24] MEDS: Ondansetron 4 MG/2 ML Vial IV (11:53)
--- NOTE | 2022-05-24 13:10 | CASEMGMT ---
Social Work Telephone call from Abrahan July, Abrahan Liu reports to have completed HCPOA paperwork with patient and is now patient HCPOA. Abrahan reports that documents where provided to nursing staff. This social science teacher noting that HCPOA documents are on patient chart and Abrahan July is patient HCPOA. This social science teacher updated patient contact information accordingly. John ALONSO, SERENA
[2022-05-24 13:19] LABS: Reflex Lactate? Y
--- NOTE | 2022-05-24 14:28 | CON.PCM.ID_ITS ---
Assessment & Plan Assessment/Plan (1) Intra-abdominal abscess: PLAN: Aspiration done 05/23, cx pending. Will change abx to meropenem and will monitor for any reaction. RLE ulcer without drainage or redness. Will follow, thank you HPI Consult Data Date of Consult: 05/24/22 HPI Narrative Reason for Consultation: abd abscess HPI Narrative: AMINA ESPOSITO, is a 41 F with metastatic breast cancer, muscular dystrophy, on chemo via R chest port, follows at wound center for RLE ulcer. Has been on levaquin this past week for wound infection. Starting 05/19, developed progressive intermittent lower abd pain, not related to food intake. Developed some nausea, loss of appetite, diarrhea. No blood in stool. No fever, no issues with port. Came to ED 05/22, admitted on vanc/gent/flagyl. Reports remote h/o throat swelling with PCN, did not have to go to hospital, not aware of any other beta lactam usage. Feeling a little better, still abd pain. Aspiration done yesterday. Full ROS performed and neg except as noted above. [facility] Medical History Acid reflux Alcohol use Anemia Anxiety Arthritis Arthrogryposis Braces as ambulation aid Breast cancer Breast cancer, left breast Cancer CINV (chemotherapy-induced nausea and vomiting) CPAP (continuous positive airway pressure) dependence Dehydration Depression Diarrhea Diarrhea due to drug Elevated C-reactive protein (CRP) (12/26/21) Encounter for chemotherapy management Encounter for education Heartburn History of diverticulitis History of echocardiogram History of edema History of irregular heartbeat Hypokalemia Hypomagnesemia Leg sore Lung nodule, multiple Mucositis (ulcerative) due to antineoplastic therapy Mucositis (ulcerative) due to antineoplastic therapy Muscular dystrophy Nausea Non-smoker Oral candidiasis Port-A-Cath in place Sleep apnea Thrombocytosis Thrombocytosis Wears glasses Home Medications cholecalciferol (vitamin D3) 25 mcg (1,000 unit) capsule 2,000 unit PO DAILY Check with primary doctor 01/25/22 [History Last Taken Unknown] duloxetine 20 mg capsule,delayed release 20 mg PO DAILY Check with primary doctor 01/25/22 [History Last Taken Unknown] lidocaine-prilocaine 2.5 %-2.5 % topical cream 1 applic topical ONCE PRN port access 30 days #30 grams 02/23/22 [Rx Last Taken Unknown] prochlorperazine maleate 10 mg tablet 10 mg PO Q6H PRN nausea and vomiting #30 tabs 02/23/22 [Rx Last Taken Unknown] Magnesium Malate 750 mg PO QHS Check with primary doctor 02/28/22 [History Last Taken Unknown] ondansetron 8 mg disintegrating tablet 8 mg PO Q8H PRN nausea and vomiting #30 tabs 04/18/22 [Rx Last Taken Unknown] potassium chloride 20 mEq/15 mL oral liquid 20 meq (15 mL) PO TID #450 mL 05/02/22 [Rx Last Taken Unknown] MAGIC MOUTH WASH (BMX) 180 mL suspension 15 ml PO .Q6HR Check with primary doctor 05/22/22 [History Last Taken Unknown] dexamethasone 4 mg tablet 8 mg PO .COMPLEX Check with primary doctor 05/22/22 [History Last Taken Unknown] levofloxacin 500 mg tablet 500 mg PO DAILY Check with primary doctor 05/22/22 [History Last Taken Unknown] scopolamine base 1 mg over 3 days transdermal patch 1 patch transdermal Q72H Check with primary doctor 05/22/22 [History Last Taken Unknown] Allergy/AdvReac Type Severity Reaction Status Date / Time kiwi Allergy Mild Anaphylaxis Verified 05/22/22 11:58 Penicillins Allergy Mild Anaphylaxis Verified 05/22/22 11:58 Family History Mother Diabetes Hypertension High cholesterol Thyroid disorder Uncle Cancer non-hodgkins lymphoma Grandfather Heart disease Grandmother Heart disease Brother Hypertension Unknown Breast cancer mother had 2 cousins with aggressive breast cancer Unknown Thyroid cancer maternal cousin Other Arthritis Depression Surgical History H/O release of tendon History of lymph node biopsy History of spinal fusion Social History household members: family current occupational status: employed 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 Smoking Status: Never smoker alcohol intake: current alcohol intake frequency: holidays/special occasions only details: occasional substance use type: does not use Physical Exam Const alert, oriented x3 and no apparent distress General Appearance: cooperative HEENT normocephalic and head/scalp atraumatic Eyes PERRL and EOMs intact bilaterally Neck supple and No nodes Resp normal air movement and clear to auscultation bilaterally Cardio regular rate and regular rhythm GI soft to palpation and non-distended GI Narrative: mild RLQ soreness Extremity General Extremity: Negative for edema Skin Skin Narrative: reviewed photos. R chest port, no inflammation Neuro CN's II-XII intact bilaterally Medical Records Data Medical Nutrition Assessment Dietitian: Malnutrition Criteria Met Start: 05/23/22 13:14 Freq: Status: Active Protocol: Document 05/23/22 13:14 LO (Rec: 05/23/22 13:15 LO [id number]) Nutrition Malnutrition Evidence of Malnutrition Exists Yes Malnutrition (severe): Chronic Evidenced By Suboptimal Energy Intake ( Severe),Weight Loss (Severe) Intake Problem Increased Nutrient Needs (specify) Etiology calories/protein related to increased demand for healing and breast cancer Signs/Symptoms as evidenced by right leg stasis ulcer and pt on chemotherapy Status Active Problem Clinical Problem Chronic Disease or Condition Related Malnutrition Etiology related to lung cancer Signs/Symptoms as evidenced by PO intakes >75 % of estimated energy needs for >1 month and 26.3lbs (24.6 %) weight loss in 3 months Status Active Problem Recommendation Dietitian Recommendations/Changes ADAT to Low Fiber diet when medically able. Recommend 120mL Ensure Clear 4x when diet advances to Clear Liquid, then recommend 118mL Ensure Compact 4x daily when diet >CL to provide supplemental energy and to promote weight gain. Recommend Adrian BID with lunch and dinner once diet advances to promote wound healing. Lab / Micro Data Attestation: I reviewed the patient's lab results. Result Diagrams: 05/24/22 06:36 05/24/22 06:36 Labs: Laboratory Results - last 24 hr 05/23/22 08:40: Crossmatch See Detail 05/23/22 17:16: Hgb 11.8 L 05/24/22 06:36: WBC 74.8 H*, RBC 3.84 L, Hgb 11.5 L, Hct 32.5 L, MCV 84.6 D, MCH 29.9, MCHC 35.4 D, RDW Std Deviation 52.3 H, RDW Coeff of Seema 17.6 H, Plt Count 148 L, MPV 9.1, Immature Gran % (Auto) 3.900 H, Neut % (Auto) 89.5 H, Lymph % (Auto) 2.0 L, [place] % (Auto) 4.5, Eos % (Auto) 0.0, Baso % (Auto) 0.1, Absolute Neuts (auto) 67.0 H, Absolute Lymphs (auto) 1.47, Nucleated RBC % 0, Differential Comment SCANNED, Diff Path Review September05/24/22 06:36: PT 29.8 H, INR 2.9 05/24/22 06:36: Sodium 142, Potassium 2.4 L*, Chloride 114 H, Carbon Dioxide 14.0 L, Anion Gap 14, BUN 10, Creatinine 0.61, Estim Creat Clear Calc 68.52, Est GFR (MDRD) Af Amer 138, Est GFR (MDRD) Non-Af 114, BUN/Creatinine Ratio 16.5, Glucose 161 H, Calcium 7.6 L, Phosphorus 3.6, Magnesium 1.6, Total Bilirubin 0.90, AST 12 L, ALT 10 L, Alkaline Phosphatase 137 H, Total Protein 4.4 L, Albumin 1.8 L, Globulin 2.6, Albumin/Globulin Ratio 0.7 L 05/24/22 09:15: Lactic Acid 2.2 H* Micro: Microbiology 05/23/22 17:40 Aspirate - Abdominal Gram Stain - Final 05/23/22 17:40 Aspirate - Abdominal Wound Culture - Preliminary No growth-Final to follow 05/22/22 14:20 Urine, Clean Catch Urine Culture - Final Mixed Gram Positive Organisms Radiology Impression Echocardiogram 05/22/22 17:49 Interpretation Summary The study was technically difficult. The left ventricular ejection fraction is 55 %. Mid to dstal anterior septum and apical hypokinesis. Small fibrinous anterior pericardial effusion. Ordering Physician: Ernestina Rene Referring Physician: Jam Verde MD Performed By: Riri Mclain RCS Chest CTA 05/23/22 22:17 IMPRESSION: Negative for PE. No thoracic aortic dissection. Small-moderate moderate right pleural effusion. Bibasilar atelectasis. Electronically Signed: Guanaco Iverson MD at 23:41 EST ,
[2022-05-24 14:32] LABS: Lactic Acid 2.6 mmol/L (0.4-1.9)
[2022-05-24] MEDS: Mag Hydrox/Al Hydrox/Simeth 30 ML UDC PO (16:40)
[2022-05-24] MEDS: Ensure Clear 120 ML Liquid PO (16:40)
[2022-05-24 16:52] LABS: Prealbumin 3.1 mg/dL (20.0-40.0)
[2022-05-24 16:55] LABS: Blood Gas Specimen Type VEN; SITE L Radial; VBG BASE EXCESS -16 mmol/L (-1.0-3.5); VBG Bicarbonate 11 mmol/L (22-26); VBG PO2 56 mmHg (25-40); VBG SO2 85 % (50-70); VBG TCO2 12 mmol/L (23-33); VBG pCO2 24.9 mmHg (41-51); VBG pH 7.26 (7.32-7.42)
[2022-05-24 17:10] LABS: Anion Gap 12 (5-15); BUN 9 mg/dL (7-18); BUN/Creat Ratio 12.1 RATIO (10-20); Calcium,Total 7.7 mg/dL (8.5-10.1); Chloride 113 mmol/L (98-107); Creatinine, Serum 0.74 mg/dL (0.55-1.02); EST Glomerular Filtration Rate 90 mL/min (>60); Est Glom Filt Rate - Afr Amer 109 mL/min (>60); Estimated Creatinine Clearance 56.48 ml/min; Glucose 216 mg/dL (74-106); Potassium 2.5 mmol/L (3.5-5.1); Sodium Level 138 mmol/L (136-145)
--- NOTE | 2022-05-24 17:40 | RAD_ITS ---
INDICATION: tachypnea EXAMINATION/TECHNIQUE: X-RAY - XR Chest 1 View COMPARISON: CTA chest 05/23/2022. FINDINGS: LINES/DEVICES: Venous port is present. LUNGS: No consolidation or vascular congestion. Blunting of the costophrenic angles consistent with trace pleural effusions. MEDIASTINUM AND CARDIOVASCULAR STRUCTURES: Cardiac silhouette not enlarged. Central airways and mediastinal contour are unremarkable. BONES AND SOFT TISSUES: Moderate thoracic dextroscoliosis with spinal rods in place. Mild degenerative changes of the shoulders. RAD/Chest 1 View (Portable) IMPRESSION: Small pleural effusions, otherwise no acute findings. Electronically Signed: Lesia Goodwin MD at 18:04 EST Reading Location ID and State: [id number] / Tel , Service support ,
--- NOTE | 2022-05-24 17:40 | RAD_ITS ---
INDICATION: abd pain EXAMINATION/TECHNIQUE: X-RAY - XR Abdomen 1 View COMPARISON: CT abdomen 05/22/2022. FINDINGS: Lung bases are clear. There is a non-obstructive bowel gas pattern. There is no organomegaly. No abnormal calcifications. No acute bony findings. RAD/Abdomen Single View (Portable) IMPRESSION: Non-obstructive bowel gas pattern. Electronically Signed: Lesia Goodwin MD at 18:15 EST Reading Location ID and State: [id number] / Tel , Service support ,
[2022-05-24 17:41] LABS: Lactic Acid 3.5 mmol/L (0.4-1.9)
[2022-05-24] MEDS: Lactated Ringers 1,000 ML 125 ML IV (18:09)
[2022-05-24] MEDS: LACTATED RINGERS 1,000 ML 999 ML IV (18:10)
[2022-05-24] MEDS: Potassium Chloride IVPB 10 MEQ 100 MEQ IV BOLUS (18:19)
[2022-05-24 19:13] LABS: Absolute Lymphocyte Count 2.32 X10^3/uL (0.83-4.51); Absolute Neutrophil Count 77.8 X10^3/uL (2.0-7.7); Basophil# 0.09 X10^3/uL; Basophil% 0.1 % (0-1); Hematocrit 28.3 % (37-47); Hemoglobin 10.3 g/dL (12.0-15.0); Lymphocyte # 2.32 X10^3/ul (0.83-4.51); Lymphocyte % 2.7 % (19-41); Mean Corp Hgb Conc 36.4 g/dL (32-36); Mean Corpuscular Hgb 29.9 pg (27.0-32.0); Mean Corpuscular Volume 82.3 fL (81-99); Mean Platelet Vol. 10.2 fl (6.2-12.0); Monocyte# 3.15 X10^3/uL; Monocyte% 3.6 % (0-10); NRBC Flagged by Analyzer 0 % (0-5); Neutrophil # 77.81 X10^3/uL (2.7-7.7); Neutrophil % 89.6 % (47-70); POSITIVE COUNT YES; POSITIVE DIFFERENTIAL YES; POSITIVE MORPHOLOGY YES; Platelet Count 129 K/mm3 (150-450); RBC Distribution Width CV 17.6 % (11.6-14.6); RBC Distribution Width SD 51.7 fl (35.1-43.9); Red Blood Count 3.44 M/mm3 (4.2-5.4)
[2022-05-24 19:16] LABS: Differential Indicated SCAN CRITERIA MET
[2022-05-24 19:18] LABS: White Blood Count 86.8 K/mm3 (4.4-11.0)
[2022-05-24] MEDS: Potassium Chloride 20mEq/100mL 20 MEQ/100 ML IV.SOLN. 100 MEQ IV BOLUS ×3 (19:21→22:51)
[2022-05-24 19:41] LABS: Differential Comment SCANNED
--- NOTE | 2022-05-24 19:52 | CT_ITS ---
EXAM: CT ABDOMEN AND PELVIS WITH INTRAVENOUS CONTRAST CLINICAL INDICATION: Abdominal abscess, sepsis TECHNIQUE: Helically acquired images were obtained of the abdomen and pelvis with intravenous contrast. This CT exam was performed using one or more of the following dose reduction techniques: automated exposure control, adjustment of the mA and/or kV according to patient size, and/or use of iterative reconstruction technique. This report was created using [employer] report generation technology. CONTRAST: IV 100mL Isovue-370 COMPARISON: 05/22/2022. FINDINGS: ARTIFACTS: Quality: Slightly limited due to artifact from spinal rods. LOWER THORAX: Moderate right pleural effusion. Trace left pleural effusion. No cardiomegaly. ABDOMEN: LIVER: Unremarkable. Homogeneous. No focal mass. GALLBLADDER AND BILE DUCTS: Dilated common duct measures up to 1 cm. No demonstrated stone. No gallbladder distention or wall edema. PANCREAS: Unremarkable. No focal cystic or solid mass. SPLEEN: Unremarkable. Normal size without focal cystic or solid mass. ADRENALS: Unremarkable. No nodules. KIDNEYS AND URETERS: Unremarkable. Normal renal size and position. No hydronephrosis. STOMACH AND BOWEL: There is persistent inflammatory stranding between the abdominal wall and the hepatic flexure at the site of previously noted collection. No extraluminal gas. No bowel obstruction. PELVIS: APPENDIX: No evidence of acute appendicitis. BLADDER: Unremarkable. REPRODUCTIVE: Unremarkable as visualized. No mass. ABDOMEN and PELVIS: INTRAPERITONEAL SPACE: No free fluid or free air. BONES/JOINTS: Moderate thoracic dextroscoliosis. Spinal rods in place. No suspicious lytic or blastic abnormality. SOFT TISSUES: Thickening and edema of the right abdominal wall muscles with hypodensity of the right transversus abdominis. There is no organized collection. Findings are significantly improved compared to the prior study. No discrete abdominal or pelvic wall hernia. VASCULATURE: Unremarkable. Abdominal aorta is normal in caliber. LYMPH NODES: Unremarkable. No enlarged lymph nodes. CT/Abdomen/Pelvis WITH Contrast IMPRESSION: 1. Mild persistent inflammatory changes in the right lower quadrant and abdominal wall, without drainable collection. Findings are significantly improved compared to the prior study. 2. Pleural effusions. 3. Dilated common duct. If there is clinical suspicion for common duct stone, consider MRCP. Electronically Signed: Lesia Goodwin MD at 22:26 EST Reading Location ID and State: [id number] / Tel , Service support ,
[2022-05-24] MEDS: LORazepam 0.5 MG Tablet PO (20:44)
[2022-05-24 20:51] LABS: Reflex Lactate? Y
[2022-05-24 21:39] LABS: Absolute Lymphocyte Count 1.31 X10^3/uL (0.83-4.51); Absolute Neutrophil Count 76.5 X10^3/uL (2.0-7.7); Basophil# 0.05 X10^3/uL; Basophil% 0.1 % (0-1); Hemoglobin 12.8 g/dL (12.0-15.0); Lymphocyte # 1.31 X10^3/ul (0.83-4.51); Lymphocyte % 1.6 % (19-41); Mean Corp Hgb Conc 36.6 g/dL (32-36); Mean Corpuscular Hgb 29.8 pg (27.0-32.0); Mean Corpuscular Volume 81.4 fL (81-99); Mean Platelet Vol. 9.2 fl (6.2-12.0); Monocyte% 2.4 % (0-10); NRBC Flagged by Analyzer 0 % (0-5); Neutrophil # 76.53 X10^3/uL (2.7-7.7); Neutrophil % 92.7 % (47-70); POSITIVE COUNT YES; POSITIVE DIFFERENTIAL YES; POSITIVE MORPHOLOGY YES; Platelet Count 200 K/mm3 (150-450); RBC Distribution Width SD 50.9 fl (35.1-43.9)
[2022-05-24 21:57] LABS: Differential Indicated SCAN CRITERIA MET
[2022-05-24 21:58] LABS: White Blood Count 82.6 K/mm3 (4.4-11.0)
[2022-05-24 22:11] LABS: Differential Comment SCANNED
[2022-05-24 22:14] LABS: Anion Gap 11 (5-15); BUN 8 mg/dL (7-18); BUN/Creat Ratio 11.5 RATIO (10-20); Calcium,Total 7.8 mg/dL (8.5-10.1); Chloride 113 mmol/L (98-107); EST Glomerular Filtration Rate 97 mL/min (>60); Est Glom Filt Rate - Afr Amer 118 mL/min (>60); Estimated Creatinine Clearance 59.71 ml/min; Glucose 212 mg/dL (74-106); Sodium Level 139 mmol/L (136-145)
[2022-05-24 22:26] LABS: Lactic Acid 4.4 mmol/L (0.4-1.9)
--- NOTE | 2022-05-24 23:56 | NURSING ---
Pt getting transfer to ICU, report given to Magdalene Barahona RN.
[2022-05-25] VITALS (24 sets, daily range): BP systolic 82–111; BP diastolic 60–94; PULSE 122–146; RESP 15–35; TEMP 36.2–37.4; O2SAT 95–100
--- NOTE | 2022-05-25 00:28 | EKG12_ITS ---
Test Reason : TACHYCARDIA Blood Pressure : / mmHG Vent. Rate : 144 BPM Atrial Rate : 147 BPM P-R Int : 114 ms QRS Dur : 070 ms QT Int : 338 ms P-R-T Axes : 033 006 199 degrees QTc Int : 523 ms Sinus tachycardia Low voltage QRS (Limb Leads) Nonspecific T wave abnormality Abnormal ECG Confirmed by ESVIN WASHINGTON, VICTORINO ([id number]), writer editor CHRISTINA RATLIFF ([id number]) on 05/31/2022 10:37:27 AM Referred By: LYNETTE PASCAL Confirmed By:VICTORINO MCALLISTER MD
[2022-05-25] MEDS: Famotidine 200 MG/20 ML MDV 20 MG in 0.9% Normal Saline (Pres. free 8 ML 300 MG IV (01:04)
[2022-05-25] MEDS: DiphenhydrAMINE 50 MG/ML Syringe IV (01:04)
[2022-05-25] MEDS: 0.9 % NaCl (Sterile) Posiflush 10 mL IV (01:04)
[2022-05-25 01:46] LABS: Magnesium 2.4 mg/dL (1.6-2.6); Phosphorus 1.9 mg/dL (2.5-4.9)
[2022-05-25] MEDS: Lactated Ringers 1,000 ML 125 ML IV ×2 (03:49→10:23)
[2022-05-25 03:58] LABS: Absolute Lymphocyte Count 0.97 X10^3/uL (0.83-4.51); Absolute Neutrophil Count 72.8 X10^3/uL (2.0-7.7); Basophil# 0.04 X10^3/uL; Hematocrit 32.4 % (37-47); Hemoglobin 11.6 g/dL (12.0-15.0); Lymphocyte # 0.97 X10^3/ul (0.83-4.51); Lymphocyte % 1.2 % (19-41); Mean Corp Hgb Conc 35.8 g/dL (32-36); Mean Corpuscular Hgb 29.5 pg (27.0-32.0); Mean Corpuscular Volume 82.4 fL (81-99); Mean Platelet Vol. 8.9 fl (6.2-12.0); Monocyte# 2.57 X10^3/uL; Monocyte% 3.2 % (0-10); NRBC Flagged by Analyzer 0 % (0-5); Neutrophil # 72.83 X10^3/uL (2.7-7.7); POSITIVE COUNT YES; POSITIVE DIFFERENTIAL YES; POSITIVE MORPHOLOGY YES; Platelet Count 171 K/mm3 (150-450); RBC Distribution Width CV 17.9 % (11.6-14.6); RBC Distribution Width SD 52.5 fl (35.1-43.9); Red Blood Count 3.93 M/mm3 (4.2-5.4); White Blood Count 80.1 K/mm3 (4.4-11.0)
[2022-05-25 04:04] LABS: Differential Indicated SCAN CRITERIA MET
[2022-05-25 04:15] LABS: ALB/GLOB Ratio 0.7 RATIO (0.9-2.4); AST(SGOT) 15 U/L (15-37); Alanine Aminotransfer ALT/SGPT 16 U/L (13-56); Albumin, Serum 1.6 g/dL (3.2-5.0); Alkaline Phosphatase 145 U/L (45-117); Anion Gap 9 (5-15); BUN 6 mg/dL (7-18); BUN/Creat Ratio 11.4 RATIO (10-20); Calcium,Total 7.5 mg/dL (8.5-10.1); Chloride 114 mmol/L (98-107); Creatinine, Serum 0.53 mg/dL (0.55-1.02); EST Glomerular Filtration Rate 134 mL/min (>60); Est Glom Filt Rate - Afr Amer 162 mL/min (>60); Estimated Creatinine Clearance 78.86 ml/min; Globulin 2.2 g/dL (2.2-4.2); Glucose 163 mg/dL (74-106); Potassium 3.3 mmol/L (3.5-5.1); Protein, Total 3.8 g/dL (6.4-8.2); Sodium Level 139 mmol/L (136-145)
[2022-05-25 04:16] LABS: International Normalized Ratio 3.6
[2022-05-25 04:33] LABS: Anisocytosis 1+; Burr Cells 1+
[2022-05-25] MEDS: Potassium Chloride 20mEq/100mL 20 MEQ/100 ML IV.SOLN. 100 MEQ IV BOLUS (05:46)
--- NOTE | 2022-05-25 08:29 | PCM.PN.SRG ---
Subjective Subjective Events noted from last night. Currently patient is still tachycardic heart rate of 130 blood pressure systolically 85-96. Patient does have good urine output. Her previous lactic acid last night was 4.4 white was count went up to 86 now down to 80. Patient's prealbumin from yesterday is 3.1 her albumin is 1.2. Patient states her abdominal pain has improved. Patient CT abdomen pelvis from yesterday night did show improvement of the inflammation of the right colon/abdominal wall. No drainable collection noted. Objective Data Objective Data Vital Signs: Vital Signs Temp Pulse Resp BP Pulse Ox O2 Del Method O2 Flow Rate 98.3 F 130 H 18 98/74 100 Nasal Cannula 2 05/25/22 07:00 05/25/22 07:00 05/25/22 07:00 05/25/22 07:00 05/25/22 07:15 05/25/22 07:15 05/25/22 07:15 Oxygen Flow Rate (L/min) 2 Oxygen Delivery Method Nasal Cannula Weight: 121 lb 0.54 oz Body Mass Index (BMI) 19.3 Intake & Output: Intake and Output for Last 24 Hours 05/23/22 05/24/22 05/25/22 23:59 23:59 23:59 Intake Total 5799.50 / 5799.50 6456.66 / 6456.66 1576.67 / 1576.67 Output Total 500 / 500 2 / 2 400 / 400 Balance 5299.50 / 5299.50 6454.66 / 6454.66 1176.67 / 1176.67 Medical Nutrition Assessment Dietitian: Malnutrition Criteria Met Start: 05/23/22 13:14 Freq: Status: Active Protocol: Document 05/23/22 13:14 (Rec: 05/23/22 13:15 [id number]) Nutrition Malnutrition Evidence of Malnutrition Exists Yes Malnutrition (severe): Chronic Evidenced By Suboptimal Energy Intake ( Severe),Weight Loss (Severe) Intake Problem Increased Nutrient Needs (specify) Etiology calories/protein related to increased demand for healing and breast cancer Signs/Symptoms as evidenced by right leg stasis ulcer and pt on chemotherapy Status Active Problem Clinical Problem Chronic Disease or Condition Related Malnutrition Etiology related to lung cancer Signs/Symptoms as evidenced by PO intakes >75 % of estimated energy needs for >1 month and 26.3lbs (24.6 %) weight loss in 3 months Status Active Problem Recommendation Dietitian Recommendations/Changes ADAT to Low Fiber diet when medically able. Recommend 120mL Ensure Clear 4x when diet advances to Clear Liquid, then recommend 118mL Ensure Compact 4x daily when diet >CL to provide supplemental energy and to promote weight gain. Recommend Adrian BID with lunch and dinner once diet advances to promote wound healing. Lab / Micro Data Result Diagrams: 05/25/22 03:45 05/25/22 03:45 Labs: Laboratory Results - last 24 hr 05/24/22 06:36: Prealbumin 3.1 L 05/24/22 09:15: Lactic Acid 2.2 H* 05/24/22 13:47: Lactic Acid 2.6 H* 05/24/22 16:45: Sodium 138, Potassium 2.5 L*, Chloride 113 H, Carbon Dioxide 13.0 L, Anion Gap 12, BUN 9, Creatinine 0.74, Estim Creat Clear Calc 56.48, Est GFR (MDRD) Af Amer 109, Est GFR (MDRD) Non-Af 90, BUN/Creatinine Ratio 12.1, Glucose 216 H, Calcium 7.7 L 05/24/22 16:45: Lactic Acid 3.5 H* 05/24/22 19:00: WBC 86.8 H*, RBC 3.44 L, Hgb 10.3 L, Hct 28.3 L, MCV 82.3, MCH 29.9, MCHC 36.4 H, RDW Std Deviation 51.7 H, RDW Coeff of Seema 17.6 H, Plt Count 129 L, MPV 10.2, Immature Gran % (Auto) 4.000 H, Neut % (Auto) 89.6 H, Lymph % (Auto) 2.7 L, [place] % (Auto) 3.6, Eos % (Auto) 0.0, Baso % (Auto) 0.1, Absolute Neuts (auto) 77.8 H, Absolute Lymphs (auto) 2.32, Nucleated RBC % 0, Differential Comment SCANNED, Diff Path Review September05/24/22 21:27: WBC 82.6 H*, RBC 4.30, Hgb 12.8, Hct 35.0 L, MCV 81.4, MCH 29.8, MCHC 36.6 H, RDW Std Deviation 50.9 H, RDW Coeff of Seema 18.0 H, Plt Count 200, MPV 9.2, Immature Gran % (Auto) 3.200 H, Neut % (Auto) 92.7 H, Lymph % (Auto) 1.6 L, [place] % (Auto) 2.4, Eos % (Auto) 0.0, Baso % (Auto) 0.1, Absolute Neuts (auto) 76.5 H, Absolute Lymphs (auto) 1.31, Nucleated RBC % 0, Differential Comment SCANNED, Diff Path Review September [facility] 05/24/22 21:27: Sodium 139, Potassium 3.0 L, Chloride 113 H, Carbon Dioxide 15.0 L, Anion Gap 11, BUN 8, Creatinine 0.70, Estim Creat Clear Calc 59.71, Est GFR (MDRD) Af Amer 118, Est GFR (MDRD) Non-Af 97, BUN/Creatinine Ratio 11.5, Glucose 212 H, Calcium 7.8 L 05/24/22 21:27: Lactic Acid 4.4 H* 05/24/22 21:27: Phosphorus 1.9 L, Magnesium 2.4 05/25/22 03:45: WBC 80.1 H*, RBC 3.93 L, Hgb 11.6 L, Hct 32.4 L, MCV 82.4, MCH 29.5, MCHC 35.8, RDW Std Deviation 52.5 H, RDW Coeff of Seema 17.9 H, Plt Count 171, MPV 8.9, Immature Gran % (Auto) 4.600 H, Neut % (Auto) 91.0 H, Lymph % (Auto) 1.2 L, [place]ance % (Auto) 3.2, Eos % (Auto) 0.0, Baso % (Auto) 0.0, Absolute Neuts (auto) 72.8 H, Absolute Lymphs (auto) 0.97, Nucleated RBC % 0, Diff Path Review September, Anisocytosis 1+, Bernadine Cells 1+ 05/25/22 03:45: Sodium 139, Potassium 3.3 L, Chloride 114 H, Carbon Dioxide 16.0 L, Anion Gap 9, BUN 6 L, Creatinine 0.53 L, Estim Creat Clear Calc 78.86, Est GFR (MDRD) Af Amer 162, Est GFR (MDRD) Non-Af 134, BUN/Creatinine Ratio 11.4, Glucose 163 H, Calcium 7.5 L, Total Bilirubin 0.60, AST 15, ALT 16, Alkaline Phosphatase 145 H, Total Protein 3.8 L, Albumin 1.6 L, Globulin 2.2, Albumin/Globulin Ratio 0.7 L 05/25/22 03:45: PT 36.0 H, INR 3.6 Micro: Microbiology 05/23/22 17:40 Aspirate - Abdominal Gram Stain - Final 05/23/22 17:40 Aspirate - Abdominal Wound Culture - Preliminary No growth-Final to follow 05/23/22 17:40 Aspirate - Abdominal Anaerobic Culture - Preliminary No growth in 48 hours. 05/22/22 20:55 Blood Culture (Wb) - Anticubital Left Blood Culture - Preliminary No growth in 48 hours. 05/22/22 20:40 Blood Culture (Wb) - Anticubital Left Blood Culture - Preliminary No growth in 48 hours. 05/22/22 14:20 Urine, Clean Catch Urine Culture - Final Mixed Gram Positive Organisms 05/22/22 18:15 Nasal Secretion SARS-CoV-2 & FLU Antigen (Rapid) - Final ABG Data ABG results: ABG 05/24/22 16:52 Specimen Type HERBER Sample Site L Radial VBG pH 7.26 L VBG pO2 56 H VBG HCO3 11 L VBG Total CO2 12 L VBG O2 Sat (Calc) 85 H VBG Base Excess -16 L POC Mix VBG pCO2 Pt Tmp 24.9 L Radiography Diagnostic Testing: Radiology Impression Chest X-Ray 05/24/22 17:40 IMPRESSION: Small pleural effusions, otherwise no acute findings. Electronically Signed: Lesia Goodwin MD at 18:04 EST Reading Location ID and State: Nic Moreno MD Tel , Service support , KUB X-Ray 05/24/22 17:40 IMPRESSION: Non-obstructive bowel gas pattern. Electronically Signed: Lesia Goodwin MD at 18:15 EST Reading Location ID and State: Nic Moreno MD Tel , Service support , Abdomen/Pelvis CT 05/24/22 19:52 IMPRESSION: 1. Mild persistent inflammatory changes in the right lower quadrant and abdominal wall, without drainable collection. Findings are significantly improved compared to the prior study. 2. Pleural effusions. 3. Dilated common duct. If there is clinical suspicion for common duct stone, consider MRCP. Electronically Signed: Lesia Goodwin MD at 22:26 EST , Physical Exam Const oriented x3 and no apparent distress Cardio Rate: tachycardic GI soft to palpation GI Narrative: Tender in the right lower quadrant?improved no peritoneal signs Assessment & Plan Assessment/Plan (1) Intra-abdominal abscess: (2) Abdominal wall abscess: (3) Colitis: (4) Severe malnutrition: (5) Sinus tachycardia: (6) Sepsis without acute organ dysfunction: PLAN: Plan Patient's repeat CT abdomen pelvis did show improvement of the ascending colon/abscess?personally reviewed and also reviewed with patient and patient's family. No drainable collection noted. Did add allergies to contrast dye for patient as the increased heart rate and hypotension did occur after having the CAT scan. Severe malnutrition?patient's prealbumin is 3.1 she has not been eating hardly at all for at least 2 to 3 months per family and patient. Patient's INR is 3.6 this is likely due to her poor nutritional status. As her liver functions are normal. Did have a long discussion with patient with family in the room that she is effectively killing herself by not eating as I am never seen prealbumin that low. Also stressed how important nutrition would be especially when going through chemotherapy. Patient will not be getting her last 2 doses of chemotherapy due to nutrition and risk vs benefits. Discussed with patient currently she is not a surgical candidate with an INR of 3.6 and also the area is much improved on CT and no reason to think that she would need abdominal surgery. However also discussed that she is not a candidate for mastectomy at this point due to her poor nutrition and that needs to be improved prior to considering completing the surgery. Discussed with patient that this is her choice if she wants to eat or get a Dobbhoff tube, but there is nothing else we can do if she chooses not to eat. Also stressed the importance of her being honest with providers as previously it was unknown to oncology that she had come off of her antidepressant meds x2 for the last 8 weeks. As additional medical treatment was unable to be done because there was drug interactions that could have been helpful to the patient to tolerate chemotherapy or improved depression if providers were aware that she was no longer taking those medications. Okay for full liquids will place a Dobbhoff tube for further nutrition patient is at high risk for risk of refeeding syndrome. Would not recommend a PEG tube?patient can go home with a Dobbhoff if needed when she is medically stable, until her nutrition can improve. IV Protonix 40 mg twice daily Leukocytosis?unsure the exact cause of the 80,000 white blood cell count. Patient does have some infection but she is on IV antibiotics and it is much improved on CT. Patient's hemoglobin also was down to 5.2 she got 2 units and currently she is 11 which I would expect her to be at 7.2 after the 2 units. Tachycardia and hypotension did give patient a liter bolus and will continue to monitor. Patient is still having good urine output Discussed with patient that she would need colonoscopy in the near future hopefully once this area has healed as she has never had one previously. Samantha Osorio M.D. Pager: [phone] [facility] [address] [place] [address], [facility], [address] [place] [address] Office: [phone] Charges/Coding Visit Charges Inpatient E&M: 23941 [facility] Hosp L3
--- NOTE | 2022-05-25 08:46 | PCM.PN.HOSP ---
Subjective Subjective Was transferred to the ICU overnight but this morning does report she is feeling slightly better. Abdominal pain roughly unchanged. Because of increasing lactic acid CT abdomen obtained overnight and showed inflammation but no collection. INR also increased despite vitamin K administration yesterday Objective Data Objective Data Vital Signs: Vital Signs Temp Pulse Resp BP Pulse Ox O2 Del Method O2 Flow Rate 98.3 F 130 H 18 98/74 100 Nasal Cannula 2 05/25/22 07:00 05/25/22 07:00 05/25/22 07:00 05/25/22 07:00 05/25/22 07:15 05/25/22 07:15 05/25/22 07:15 Oxygen Flow Rate (L/min) 2 Oxygen Delivery Method Nasal Cannula Weight: 54.9 kg Body Mass Index (BMI) 19.3 Intake & Output: Intake and Output for Last 24 Hours 05/23/22 05/24/22 05/25/22 23:59 23:59 23:59 Intake Total 5799.50 / 5799.50 6456.66 / 6456.66 1576.67 / 1576.67 Output Total 500 / 500 2 / 2 400 / 400 Balance 5299.50 / 5299.50 6454.66 / 6454.66 1176.67 / 1176.67 Medical Nutrition Assessment Dietitian: Malnutrition Criteria Met Start: 05/23/22 13:14 Freq: Status: Active Protocol: Document 05/23/22 13:14 LO (Rec: 05/23/22 13:15 [id number]) Nutrition Malnutrition Evidence of Malnutrition Exists Yes Malnutrition (severe): Chronic Evidenced By Suboptimal Energy Intake ( Severe),Weight Loss (Severe) Intake Problem Increased Nutrient Needs (specify) Etiology calories/protein related to increased demand for healing and breast cancer Signs/Symptoms as evidenced by right leg stasis ulcer and pt on chemotherapy Status Active Problem Clinical Problem Chronic Disease or Condition Related Malnutrition Etiology related to lung cancer Signs/Symptoms as evidenced by PO intakes >75 % of estimated energy needs for >1 month and 26.3lbs (24.6 %) weight loss in 3 months Status Active Problem Recommendation Dietitian Recommendations/Changes ADAT to Low Fiber diet when medically able. Recommend 120mL Ensure Clear 4x when diet advances to Clear Liquid, then recommend 118mL Ensure Compact 4x daily when diet >CL to provide supplemental energy and to promote weight gain. Recommend Adrian BID with lunch and dinner once diet advances to promote wound healing. Lab / Micro Data Result Diagrams: 05/25/22 03:45 05/25/22 03:45 Labs: Laboratory Results - last 24 hr 05/24/22 06:36: Prealbumin 3.1 L 05/24/22 09:15: Lactic Acid 2.2 H* 05/24/22 13:47: Lactic Acid 2.6 H* 05/24/22 16:45: Sodium 138, Potassium 2.5 L*, Chloride 113 H, Carbon Dioxide 13.0 L, Anion Gap 12, BUN 9, Creatinine 0.74, Estim Creat Clear Calc 56.48, Est GFR (MDRD) Af Amer 109, Est GFR (MDRD) Non-Af 90, BUN/Creatinine Ratio 12.1, Glucose 216 H, Calcium 7.7 L 05/24/22 16:45: Lactic Acid 3.5 H* 05/24/22 19:00: WBC 86.8 H*, RBC 3.44 L, Hgb 10.3 L, Hct 28.3 L, MCV 82.3, MCH 29.9, MCHC 36.4 H, RDW Std Deviation 51.7 H, RDW Coeff of Seema 17.6 H, Plt Count 129 L, MPV 10.2, Immature Gran % (Auto) 4.000 H, Neut % (Auto) 89.6 H, Lymph % (Auto) 2.7 L, [place] % (Auto) 3.6, Eos % (Auto) 0.0, Baso % (Auto) 0.1, Absolute Neuts (auto) 77.8 H, Absolute Lymphs (auto) 2.32, Nucleated RBC % 0, Differential Comment SCANNED, Diff Path Review September foll 05/24/22 21:27: WBC 82.6 H*, RBC 4.30, Hgb 12.8, Hct 35.0 L, MCV 81.4, MCH 29.8, MCHC 36.6 H, RDW Std Deviation 50.9 H, RDW Coeff of Seema 18.0 H, Plt Count 200, MPV 9.2, Immature Gran % (Auto) 3.200 H, Neut % (Auto) 92.7 H, Lymph % (Auto) 1.6 L, [place] % (Auto) 2.4, Eos % (Auto) 0.0, Baso % (Auto) 0.1, Absolute Neuts (auto) 76.5 H, Absolute Lymphs (auto) 1.31, Nucleated RBC % 0, Differential Comment SCANNED, Diff Path Review September [facility] 05/24/22 21:27: Sodium 139, Potassium 3.0 L, Chloride 113 H, Carbon Dioxide 15.0 L, Anion Gap 11, BUN 8, Creatinine 0.70, Estim Creat Clear Calc 59.71, Est GFR (MDRD) Af Amer 118, Est GFR (MDRD) Non-Af 97, BUN/Creatinine Ratio 11.5, Glucose 212 H, Calcium 7.8 L 05/24/22 21:27: Lactic Acid 4.4 H* 05/24/22 21:27: Phosphorus 1.9 L, Magnesium 2.4 05/25/22 03:45: WBC 80.1 H*, RBC 3.93 L, Hgb 11.6 L, Hct 32.4 L, MCV 82.4, MCH 29.5, MCHC 35.8, RDW Std Deviation 52.5 H, RDW Coeff of Seema 17.9 H, Plt Count 171, MPV 8.9, Immature Gran % (Auto) 4.600 H, Neut % (Auto) 91.0 H, Lymph % (Auto) 1.2 L, [place] % (Auto) 3.2, Eos % (Auto) 0.0, Baso % (Auto) 0.0, Absolute Neuts (auto) 72.8 H, Absolute Lymphs (auto) 0.97, Nucleated RBC % 0, Diff Path Review September, Anisocytosis 1+, Bernadine Cells 1+ 05/25/22 03:45: Sodium 139, Potassium 3.3 L, Chloride 114 H, Carbon Dioxide 16.0 L, Anion Gap 9, BUN 6 L, Creatinine 0.53 L, Estim Creat Clear Calc 78.86, Est GFR (MDRD) Af Amer 162, Est GFR (MDRD) Non-Af 134, BUN/Creatinine Ratio 11.4, Glucose 163 H, Calcium 7.5 L, Total Bilirubin 0.60, AST 15, ALT 16, Alkaline Phosphatase 145 H, Total Protein 3.8 L, Albumin 1.6 L, Globulin 2.2, Albumin/Globulin Ratio 0.7 L 05/25/22 03:45: PT 36.0 H, INR 3.6 Micro: Microbiology 05/23/22 17:40 Aspirate - Abdominal Gram Stain - Final 05/23/22 17:40 Aspirate - Abdominal Wound Culture - Preliminary No growth-Final to follow 05/23/22 17:40 Aspirate - Abdominal Anaerobic Culture - Preliminary No growth in 48 hours. 05/22/22 20:55 Blood Culture (Wb) - Anticubital Left Blood Culture - Preliminary No growth in 48 hours. 05/22/22 20:40 Blood Culture (Wb) - Anticubital Left Blood Culture - Preliminary No growth in 48 hours. 05/22/22 14:20 Urine, Clean Catch Urine Culture - Final Mixed Gram Positive Organisms 05/22/22 18:15 Nasal Secretion SARS-CoV-2 & FLU Antigen (Rapid) - Final ABG Data ABG results: ABG 05/24/22 16:52 Specimen Type HERBER Sample Site L Radial VBG pH 7.26 L VBG pO2 56 H VBG HCO3 11 L VBG Total CO2 12 L VBG O2 Sat (Calc) 85 H VBG Base Excess -16 L POC Mix VBG pCO2 Pt Tmp 24.9 L Radiography Diagnostic Testing: Radiology Impression Chest X-Ray 05/24/22 17:40 IMPRESSION: Small pleural effusions, otherwise no acute findings. Electronically Signed: Lesia Goodwin MD at 18:04 EST Reading Location ID and State: Nic Moreno MD Tel , Service support , KUB X-Ray 05/24/22 17:40 IMPRESSION: Non-obstructive bowel gas pattern. Electronically Signed: Lesia Goodwin MD at 18:15 EST Reading Location ID and State: Nic Moreno MD Tel , Service support , Abdomen/Pelvis CT 05/24/22 19:52 IMPRESSION: 1. Mild persistent inflammatory changes in the right lower quadrant and abdominal wall, without drainable collection. Findings are significantly improved compared to the prior study. 2. Pleural effusions. 3. Dilated common duct. If there is clinical suspicion for common duct stone, consider MRCP. Electronically Signed: Lesia Goodwin MD at 22:26 EST Reading Location ID and State: [id number] / Tel , Service support , Physical Exam Const alert Constitutional Narrative: Oriented HEENT normocephalic Eyes Eyes Narrative: EOM grossly intact, anicteric Neck supple Resp normal respiratory effort and clear to auscultation bilaterally Cardio regular rhythm Cardio Narrative: Mildly tachycardic GI GI Narrative: Soft, nondistended, tenderness improving, no guarding, rebound, rigidity Extremity Extremity Narrative: No edema appreciated, right lower extremity wrapped Neuro moves all extremities Neuro Narrative: No overt focal deficits appreciated Psych Psych Narrative: Cooperative, does appear slightly anxious Assessment & Plan Assessment/Plan (1) Colitis: PLAN: Plan #Acute colitis and intra-abdominal abscess CT with 3 cm phlegmon lateral to the descending colon with invasion of the anterior abdominal wall musculature Does have tachycardia, not febrile, does have elevated white blood cell count but reportedly gets an injection with her chemotherapy for her WBC which confounds this, lactic acid within normal limits and blood pressure stable Cultures ordered IV fluids Surgery consulted Continue clinda and gentamicin given her anaphylaxis to penicillin, can consider meropenem but concern for cross reaction Pain control 05/23: Surgeries evaluated and will obtain ultrasound of the area in question, collection may be too small for drain, continuing IV antibiotics at this time. Blood cultures pending 05/24: Right abdominal abscess aspirated, culture pending. Other cultures also pending. Surgery following. Oncology following. adjusting abx, lactic and vbg pending, fluids, ID c/sltd 05/25: Antibiotics changed to Merrem, was worsening clinically yesterday and due to increasing lactic acid CT abdomen was obtained which showed mild persistent for amatory changes in right lower quadrant without a collection. She was post to have IR procedure but with no collection and INR increasing to 3.6 despite vitamin K administration unclear if this will proceed. Surgery following, will await recommendations. More vitamin K given this a.m. lactic acid was elevated overnight, less tachypneic this morning however and anion gap has normalized. Has been adequately fluid resuscitated. ID following. Of note CT did show somewhat of a dilated common bile duct, considering MRCP #High anion gap metabolic acidosis Bicarb is 14 and anion gap is also 14, reports she is feeling better overall but is slightly tachycardic and has somewhat low BP. Stat lactic acid and stat VBG ordered. She has been receiving fluids and abx but will adjust pending ID c/s. 05/25: Resolved with further antibiotic administration and fluids #Acute on chronic anemia On admission hemoglobin 8.3 which was close to baseline This a.m. was 5.2, 2 units of blood ordered Will order repeat hemoglobin, no overt evidence of bleeding, suspect this is in part delusional and also due to chemotherapy Continue to monitor Needs outpatient colonoscopy once stable 05/24: Robust response to 2 units, hemoglobin now 11.5. No signs of bleeding. #Breast cancer undergoing chemotherapy Chemotherapy due next week Was post to have an appointment with her oncologist tomorrow Given active cancer with chemotherapy and poor clinical status will consult her oncologist 05/24: will f/u outpt on d/c #Hypokalemia Replaced, repeat BMP #Right lower extremity wound On broad-spectrum antibiotics at this time Wound care consulted #DVT ppx: Rashaun Rene MD Charges/Coding Visit Charges Inpatient E&M: 08066 Subs Hosp L2
--- NOTE | 2022-05-25 09:03 | WOUNDNOTE ---
wound photo: right medial lower leg
[2022-05-25] MEDS: Potassium Chloride Oral Soln 20 MEQ/15 ML UDC PO (09:09)
[2022-05-25] MEDS: Lactated Ringers 1,000 ML 999 ML IV (09:10)
--- NOTE | 2022-05-25 11:01 | EX.PCM.CONCC ---
Assessment & Plan Assessment/Plan (1) Intra-abdominal abscess: PLAN: Plan RECOMMENDATIONS: 1. Continue antimicrobials per ID recommendation. 2. Nutritional support via Dobbhoff. 3. Continue supplemental IV fluid hydration as needed. 4. Encourage incentive spirometer use and mobilize patient as tolerated. 5. Pain control per hospitalist. 6. At this time, I do not see that I have anything in addition to add to the patient's care. She can be transferred out of the medical intensive care unit for my perspective. Will sign off. Please call with any additional questions. IMPRESSIONS: 1. Sepsis secondary to colitis with intra-abdominal/abdominal wall abscess The patient has been followed during his hospitalization by general surgery and infectious diseases. She remains on broad-spectrum antimicrobials. Follow-up CT abdomen showed improvement in the ascending colon/abscess. The patient apparently developed worsening hypotension and tachycardia after her contrasted CT scan, raising the concern for potential contrast allergy. At this time, plan to continue supportive measures per general surgery and infectious diseases. The patient has been more than adequately volume resuscitated. She is hemodynamically stable, but remains tachycardic, likely secondary to underlying pain related complaints. 2. Breast cancer status postchemotherapy/acute on chronic anemia Complicates care, management, recovery and prognosis. Continue to monitor H&H daily and transfuse if hemoglobin drops below 7 g/dL. This note was generated with [employer] dictation software. It may contain incorrect words, spelling, and punctuation that were not noted in checking the note before signing. HPI Consult Data Date of Consult: 05/26/22 HPI Narrative Reason for Consultation: Concern for sepsis, lactic acidosis HPI Narrative: The patient is a 41-year-old female, with a history as outlined below, who was initially admitted to the hospital on May 22 with abdominal pain. 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 She did not have any evidence of metastatic disease on PET imaging. The patient has been on neoadjuvant systemic therapy with intent to cure. The patient's initial imaging study of her abdomen demonstrated a 3 cm phlegmon lateral to the descending colon with invasion of the anterior abdominal wall musculature. The patient was seen in consultation by both general surgery and oncology. She eventually underwent a needle aspiration of her right abdominal wall abscess. Infectious diseases was consulted to manage antimicrobials. On the evening of 1227, the patient was noted to be persistently tachycardic and mildly hypotensive. The patient was also noted to have an elevated lactate and was therefore transferred to the medical intensive care unit. The patient is currently documented to be overall net +17 L for the hospitalization. Her nutritional status is exceedingly poor with a prealbumin level of 3.1. Although she is persistently tachycardic, the patient has remained hemodynamically stable on room air. She does report lower abdominal discomfort this afternoon. The patient just had a Dobbhoff placed to facilitate nutritional support. [facility] Medical History Acid reflux Alcohol use Anemia Anxiety Arthritis Arthrogryposis Braces as ambulation aid Breast cancer Breast cancer, left breast Cancer CINV (chemotherapy-induced nausea and vomiting) CPAP (continuous positive airway pressure) dependence Dehydration Depression Diarrhea Diarrhea due to drug Elevated C-reactive protein (CRP) (12/26/21) Encounter for chemotherapy management Encounter for education Heartburn History of diverticulitis History of echocardiogram History of edema History of irregular heartbeat Hypokalemia Hypomagnesemia Leg sore Lung nodule, multiple Mucositis (ulcerative) due to antineoplastic therapy Mucositis (ulcerative) due to antineoplastic therapy Muscular dystrophy Nausea Non-smoker Oral candidiasis Port-A-Cath in place Sleep apnea Thrombocytosis Thrombocytosis Wears glasses Home Medications cholecalciferol (vitamin D3) 25 mcg (1,000 unit) capsule 2,000 unit PO DAILY Check with primary doctor 01/25/22 [History Last Taken Unknown] duloxetine 20 mg capsule,delayed release 20 mg PO DAILY Check with primary doctor 01/25/22 [History Last Taken Unknown] lidocaine-prilocaine 2.5 %-2.5 % topical cream 1 applic topical ONCE PRN port access 30 days #30 grams 02/23/22 [Rx Last Taken Unknown] prochlorperazine maleate 10 mg tablet 10 mg PO Q6H PRN nausea and vomiting #30 tabs 02/23/22 [Rx Last Taken Unknown] Magnesium Malate 750 mg PO QHS Check with primary doctor 02/28/22 [History Last Taken Unknown] ondansetron 8 mg disintegrating tablet 8 mg PO Q8H PRN nausea and vomiting #30 tabs 04/18/22 [Rx Last Taken Unknown] potassium chloride 20 mEq/15 mL oral liquid 20 meq (15 mL) PO TID #450 mL 12/06/22 [Rx Last Taken Unknown] MAGIC MOUTH WASH (BMX) 180 mL suspension 15 ml PO .Q6HR Check with primary doctor 05/22/22 [History Last Taken Unknown] dexamethasone 4 mg tablet 8 mg PO .COMPLEX Check with primary doctor 05/22/22 [History Last Taken Unknown] levofloxacin 500 mg tablet 500 mg PO DAILY Check with primary doctor 05/22/22 [History Last Taken Unknown] scopolamine base 1 mg over 3 days transdermal patch 1 patch transdermal Q72H Check with primary doctor 05/22/22 [History Last Taken Unknown] Allergy/AdvReac Type Severity Reaction Status Date / Time kiwi Allergy Mild Anaphylaxis Verified 05/22/22 11:58 Penicillins Allergy Mild Anaphylaxis Verified 05/22/22 11:58 Gadolinium-MRI Contrast AdvReac Shortness Verified 05/25/22 17:06 Medium of breath [contrast dye] Family History Mother Diabetes Hypertension High cholesterol Thyroid disorder Uncle Cancer non-hodgkins lymphoma Grandfather Heart disease Grandmother Heart disease Brother Hypertension Unknown Breast cancer mother had 2 cousins with aggressive breast cancer Unknown Thyroid cancer maternal cousin Other Arthritis Depression Surgical History H/O release of tendon History of lymph node biopsy History of spinal fusion Social History household members: family current occupational status: employed 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 Physical Exam Const alert and no apparent distress General Appearance: cooperative HEENT normocephalic and head/scalp atraumatic HEENT Narrative: Dobbhoff in place. Eyes PERRL, EOMs intact bilaterally and conjunctivae normal Neck supple General: trachea midline Chest inspection of chest normal Resp normal respiratory effort Auscultation: Negative for rales, rhonchi or wheezes Cardio S1 normal heart sound and S2 normal heart sound Rate: tachycardic GI soft to palpation Palpation: tender Extremity no clubbing, cyanosis or edema Skin no rashes or lesions noted Neuro no focal motor deficits Psych cooperative and affect normal Medical Records Data Medical Nutrition Assessment Dietitian: Malnutrition Criteria Met Start: 05/23/22 13:14 Freq: Status: Active Protocol: Document 05/23/22 13:14 LO (Rec: 05/23/22 13:15 LO [id number]) Nutrition Malnutrition Evidence of Malnutrition Exists Yes Malnutrition (severe): Chronic Evidenced By Suboptimal Energy Intake ( Severe),Weight Loss (Severe) Intake Problem Increased Nutrient Needs (specify) Etiology calories/protein related to increased demand for healing and breast cancer Signs/Symptoms as evidenced by right leg stasis ulcer and pt on chemotherapy Status Active Problem Clinical Problem Chronic Disease or Condition Related Malnutrition Etiology related to lung cancer Signs/Symptoms as evidenced by PO intakes >75 % of estimated energy needs for >1 month and 26.3lbs (24.6 %) weight loss in 3 months Status Active Problem Recommendation Dietitian Recommendations/Changes ADAT to Low Fiber diet when medically able. Recommend 120mL Ensure Clear 4x when diet advances to Clear Liquid, then recommend 118mL Ensure Compact 4x daily when diet >CL to provide supplemental energy and to promote weight gain. Recommend Adrian BID with lunch and dinner once diet advances to promote wound healing. Lab / Micro Data Result Diagrams: 05/26/22 04:20 05/26/22 04:20 Labs: Laboratory Results - last 24 hr 05/24/22 06:36: Prealbumin 3.1 L 05/24/22 13:47: Lactic Acid 2.6 H* 05/24/22 16:45: Sodium 138, Potassium 2.5 L*, Chloride 113 H, Carbon Dioxide 13.0 L, Anion Gap 12, BUN 9, Creatinine 0.74, Estim Creat Clear Calc 56.48, Est GFR (MDRD) Af Amer 109, Est GFR (MDRD) Non-Af 90, BUN/Creatinine Ratio 12.1, Glucose 216 H, Calcium 7.7 L 05/24/22 16:45: Lactic Acid 3.5 H* 05/24/22 19:00: WBC 86.8 H*, RBC 3.44 L, Hgb 10.3 L, Hct 28.3 L, MCV 82.3, MCH 29.9, MCHC 36.4 H, RDW Std Deviation 51.7 H, RDW Coeff of Seema 17.6 H, Plt Count 129 L, MPV 10.2, Immature Gran % (Auto) 4.000 H, Neut % (Auto) 89.6 H, Lymph % (Auto) 2.7 L, Dewitt % (Auto) 3.6, Eos % (Auto) 0.0, Baso % (Auto) 0.1, Absolute Neuts (auto) 77.8 H, Absolute Lymphs (auto) 2.32, Nucleated RBC % 0, Differential Comment SCANNED, Diff Path Review [facility] 05/24/22 21:27: WBC 82.6 H*, RBC 4.30, Hgb 12.8, Hct 35.0 L, MCV 81.4, MCH 29.8, MCHC 36.6 H, RDW Std Deviation 50.9 H, RDW Coeff of Seema 18.0 H, Plt Count 200, MPV 9.2, Immature Gran % (Auto) 3.200 H, Neut % (Auto) 92.7 H, Lymph % (Auto) 1.6 L, Dewitt % (Auto) 2.4, Eos % (Auto) 0.0, Baso % (Auto) 0.1, Absolute Neuts (auto) 76.5 H, Absolute Lymphs (auto) 1.31, Nucleated RBC % 0, Differential Comment SCANNED, Diff Path Review [facility] 05/24/22 21:27: Sodium 139, Potassium 3.0 L, Chloride 113 H, Carbon Dioxide 15.0 L, Anion Gap 11, BUN 8, Creatinine 0.70, Estim Creat Clear Calc 59.71, Est GFR (MDRD) Af Amer 118, Est GFR (MDRD) Non-Af 97, BUN/Creatinine Ratio 11.5, Glucose 212 H, Calcium 7.8 L 05/24/22 21:27: Lactic Acid 4.4 H* 05/24/22 21:27: Phosphorus 1.9 L, Magnesium 2.4 05/25/22 03:45: WBC 80.1 H*, RBC 3.93 L, Hgb 11.6 L, Hct 32.4 L, MCV 82.4, MCH 29.5, MCHC 35.8, RDW Std Deviation 52.5 H, RDW Coeff of Seema 17.9 H, Plt Count 171, MPV 8.9, Immature Gran % (Auto) 4.600 H, Neut % (Auto) 91.0 H, Lymph % (Auto) 1.2 L, Dewitt % (Auto) 3.2, Eos % (Auto) 0.0, Baso % (Auto) 0.0, Absolute Neuts (auto) 72.8 H, Absolute Lymphs (auto) 0.97, Nucleated RBC % 0, Diff Path Review May foll, Anisocytosis 1+, [place] Cells 1+ 05/25/22 03:45: Sodium 139, Potassium 3.3 L, Chloride 114 H, Carbon Dioxide 16.0 L, Anion Gap 9, BUN 6 L, Creatinine 0.53 L, Estim Creat Clear Calc 78.86, Est GFR (MDRD) Af Amer 162, Est GFR (MDRD) Non-Af 134, BUN/Creatinine Ratio 11.4, Glucose 163 H, Calcium 7.5 L, Total Bilirubin 0.60, AST 15, ALT 16, Alkaline Phosphatase 145 H, Total Protein 3.8 L, Albumin 1.6 L, Globulin 2.2, Albumin/Globulin Ratio 0.7 L 05/25/22 03:45: PT 36.0 H, INR 3.6 Micro: Microbiology 05/23/22 17:40 Aspirate - Abdominal Gram Stain - Final 05/23/22 17:40 Aspirate - Abdominal Wound Culture - Final No growth aerobically. 05/23/22 17:40 Aspirate - Abdominal Anaerobic Culture - Preliminary No growth in 48 hours. 05/22/22 20:55 Blood Culture (Wb) - Anticubital Left Blood Culture - Preliminary No growth in 48 hours. 05/22/22 20:40 Blood Culture (Wb) - Anticubital Left Blood Culture - Preliminary No growth in 48 hours. ABG Data ABG results: ABG 05/24/22 16:52 Specimen Type HERBER Sample Site L Radial VBG pH 7.26 L VBG pO2 56 H VBG HCO3 11 L VBG Total CO2 12 L VBG O2 Sat (Calc) 85 H VBG Base Excess -16 L POC Mix VBG pCO2 Pt Tmp 24.9 L Radiology Impression Chest X-Ray 05/24/22 17:40 IMPRESSION: Small pleural effusions, otherwise no acute findings. Electronically Signed: Lesia Goodwin MD at 18:04 EST Reading Location ID and State: [id number] / Tel , Service support , KUB X-Ray 05/24/22 17:40 IMPRESSION: Non-obstructive bowel gas pattern. Electronically Signed: Lesia Goodwin MD at 18:15 EST Reading Location ID and State: Nic Moreno MD Tel , Service support , Abdomen/Pelvis CT 05/24/22 19:52 IMPRESSION: 1. Mild persistent inflammatory changes in the right lower quadrant and abdominal wall, without drainable collection. Findings are significantly improved compared to the prior study. 2. Pleural effusions. 3. Dilated common duct. If there is clinical suspicion for common duct stone, consider MRCP. Electronically Signed: Lesia Goodwin MD at 22:26 EST Reading Location ID and State: Nic Moreno MD Tel , Service support , Charges/Coding Visit Charges Inpatient E&M: 89070 Init Hosp L3
--- NOTE | 2022-05-25 11:22 | RAD_ITS ---
STUDY: X-RAY - ABDOMEN/PELVIS REASON FOR EXAM: Female, 41 years old. KUB, DOBHOFF PLACEMENT TECHNIQUE: Single AP view of the abdomen / pelvis. COMPARISON: None. FINDINGS: Normal visualized lung bases. Dobbhoff tube tip noted in the body of the stomach. There is an unremarkable bowel gas pattern. There is no demonstrated free abdominal air. The visualized liver, spleen and kidneys are grossly normal in size and morphology. Normal soft tissue structures. There are diffuse degenerative changes of the visualized lumbar spine. Joseph catheter noted in the bladder RAD/Abdomen Single View (Portable) IMPRESSION: Dobbhoff tube tip in the body of the stomach Electronically Signed: Ino Jimenez MD at 11:40 EST ,
--- NOTE | 2022-05-25 11:22 | RAD_ITS ---
STUDY: X-RAY CHEST REASON FOR EXAM: Female, 41 years old. Feeding tube placement TECHNIQUE: Single AP portable view of the chest. COMPARISON: Yesterday FINDINGS: EKG leads overlie the chest. Stable appearance of a right subclavian port. A feeding tube has been placed since the previous study, tip is not seen on this exam but is well below the diaphragm. The lungs are clear and expanded. There is no demonstrated pleural abnormality. Normal size heart. Normal mediastinum and adi. Normal visualized pulmonary arteries. Normal visualized aortic arch and descending thoracic aorta. Degenerative changes throughout the thoracic spine with Cline rods noted. No hardware complications identified. Bilateral shoulder joint arthrosis. There is no demonstrated abnormality of the visualized soft tissue structures of the upper abdomen. RAD/Chest 1 View (Portable) IMPRESSION: No acute pulmonary process Feeding tube has been placed since the previous study, tip not identified on the study, but it is well below the diaphragm Electronically Signed: Ino Jimenez MD at 11:38 EST ,
[2022-05-25 12:25] LABS: Pathologist Review Reviewed
[2022-05-25 12:27] LABS: Pathologist Review Reviewed
[2022-05-25 12:29] LABS: Pathologist Review Reviewed
[2022-05-25 12:35] LABS: Pathologist Review Reviewed
[2022-05-25 13:20] LABS: Anion Gap 7 (5-15); BUN 6 mg/dL (7-18); BUN/Creat Ratio 16.1 RATIO (10-20); Calcium,Total 7.5 mg/dL (8.5-10.1); Chloride 114 mmol/L (98-107); Creatinine, Serum 0.37 mg/dL (0.55-1.02); EST Glomerular Filtration Rate 200 mL/min (>60); Est Glom Filt Rate - Afr Amer 242 mL/min (>60); Estimated Creatinine Clearance 169.91 ml/min; Glucose 98 mg/dL (74-106); Phosphorus 2.1 mg/dL (2.5-4.9); Potassium 3.9 mmol/L (3.5-5.1); Sodium Level 138 mmol/L (136-145)
--- NOTE | 2022-05-25 13:20 | MRI_ITS ---
EXAM: MR ABDOMEN WITHOUT INTRAVENOUS CONTRAST, MRCP PROTOCOL CLINICAL INDICATION: abd pain TECHNIQUE: Multiplanar and multisequence MR images of the abdomen without intravenous contrast obtained with MRCP sequence. Three-dimensional post-processing reconstructions were performed. This report was created using [employer] report generation technology. COMPARISON: None. FINDINGS: LOWER THORAX: Small right pleural effusion. LIVER: Unremarkable. Normal morphology. GALLBLADDER AND BILE DUCTS: Common duct is dilated measuring 8 mm. No evidence of cholelithiasis or choledocholithiasis. No gallbladder distention or wall edema. PANCREAS: Unremarkable. No focal cystic mass. No pancreatic duct dilation. SPLEEN: Unremarkable. Non-enlarged. ADRENALS: Unremarkable. No nodules. KIDNEYS AND URETERS: Unremarkable. Normal renal size and position. No hydronephrosis. INTRAPERITONEAL SPACE: Unremarkable. No ascites or other fluid collection. BONES/JOINTS: Mild lumbar levoscoliosis. Prior lumbar instrumentation. VASCULATURE: Unremarkable. Abdominal aorta is non-dilated. LYMPH NODES: No enlarged lymph nodes. MRI/MRCP Abdomen without Contrast IMPRESSION: Mildly dilated common duct. No evidence of choledocholithiasis. Electronically Signed: Lesia Goodwin MD at 17:59 EST Reading Location ID and State: [id number] / Tel , Service support ,
--- NOTE | 2022-05-25 13:22 | PCM.PN.ID ---
Physical Exam Narrative Moved to icu, not feeling well. Had reaction with CT dye. Still R sided abd pain. No fever, some dyspnea. Const alert; Negative for no apparent distress Resp normal air movement and clear to auscultation bilaterally Effort and Inspection: tachypneic Cardio Rate: tachycardic GI soft to palpation and non-distended GI Narrative: R sided soreness Extremity General Extremity: edema Skin no rashes or lesions noted ID ID: Route of nutrition/ use of supplements: [] Nutritional Intake: [] IV Site: [] Joseph Catheter: [] Assessment & Plan Assessment/Plan (1) Intra-abdominal abscess: PLAN: Aspiration done 05/23, cx neg so far. 05/24 changed abx to meropenem, so far tolerating. RLE ulcer without drainage or redness. Moved to icu, wbc is up, lactate was 4.4, and CT showed ductal dilation, so will check MRCP. Will follow
[2022-05-25] MEDS: Acetaminophen 650 MG/20 ML UDC 1000 MG PO ×2 (14:07→23:49)
[2022-05-25] MEDS: Ondansetron 4 MG/2 ML Vial IV (14:09)
[2022-05-25] MEDS: Menthol/Lanolin/Calamine/Znox 113 GM Tube 1 APPLIC TOPICAL ×2 (14:21→22:44)
--- NOTE | 2022-05-25 16:17 | CASEMGMT ---
Social Work Telephone to patient health care power of workers compensation attorney, Abrahanfrancheska Liu. This social media editor broaching topic of discharge plan for patient. Abrahan expressed desire/interest in patient going to the Inpatient Rehab Unit. This social media editor communicating to Abrahan that therapy has not been order on patient at this point to be able to assess patient needs but this can be discussed with medical team. This social media editor also communicating to Abrahan that there is no guarantee that patient insurance will approved Inpatient Rehab Unit. Abrahan voiced understanding to all information. Social Work to continue to follow. John Chun MSW, SERENA
[2022-05-25] MEDS: Pivot 1.5 Cal 1,000 ML 10 ML GT (16:38)
[2022-05-25] MEDS: Ensure Plus High Protein 120 ML LIQUID PO ×2 (18:08→22:43)
[2022-05-26] VITALS (10 sets, daily range): BP systolic 95–107; BP diastolic 63–73; PULSE 101–130; RESP 16–18; TEMP 36.3–36.8; O2SAT 98–99
--- NOTE | 2022-05-26 | NURSING ---
pt arrives to floor with lac iv infiltrated and arm substantially larger than rt. iv removed, dressing applied; noticeable amt of serous drainage. rac also has seeping puncture wound from a previously placed iv. cleaned & dressed. pt reports difficulty w/moving bue d/t swelling. pt's abdomen is severely distended and tender, per her report. ble also noted to be edematous. aware. lr order dc'd.
[2022-05-26] MEDS: Loperamide 2 MG Capsule 4 MG PO (00:06)
[2022-05-26] MEDS: Ondansetron 4 MG/2 ML Vial IV (00:06)
[2022-05-26 00:17] LABS: Magnesium 1.6 mg/dL (1.6-2.6); Phosphorus 2.9 mg/dL (2.5-4.9)
[2022-05-26] MEDS: Midodrine HCl 5 MG Tablet 10 MG PO ×4 (00:48→17:19)
[2022-05-26 04:26] LABS: Hematocrit 28.6 % (37-47); Hemoglobin 9.9 g/dL (12.0-15.0); Mean Corp Hgb Conc 34.6 g/dL (32-36); Mean Corpuscular Hgb 28.8 pg (27.0-32.0); Mean Corpuscular Volume 83.1 fL (81-99); Mean Platelet Vol. 9.5 fl (6.2-12.0); POSITIVE COUNT YES; POSITIVE DIFFERENTIAL YES; POSITIVE MORPHOLOGY YES; Platelet Count 198 K/mm3 (150-450); RBC Distribution Width CV 17.7 % (11.6-14.6); RBC Distribution Width SD 52.9 fl (35.1-43.9); Red Blood Count 3.44 M/mm3 (4.2-5.4)
[2022-05-26 04:27] LABS: Differential Indicated MANUAL DIFF
[2022-05-26 04:44] LABS: ALB/GLOB Ratio 0.7 RATIO (0.9-2.4); AST(SGOT) 28 U/L (15-37); Alanine Aminotransfer ALT/SGPT 34 U/L (13-56); Albumin, Serum 1.4 g/dL (3.2-5.0); Alkaline Phosphatase 189 U/L (45-117); Anion Gap 7 (5-15); BUN 8 mg/dL (7-18); BUN/Creat Ratio 18.4 RATIO (10-20); Calcium,Total 7.1 mg/dL (8.5-10.1); Chloride 115 mmol/L (98-107); Creatinine, Serum 0.44 mg/dL (0.55-1.02); EST Glomerular Filtration Rate 168 mL/min (>60); Est Glom Filt Rate - Afr Amer 203 mL/min (>60); Estimated Creatinine Clearance 142.88 ml/min; Globulin 2.1 g/dL (2.2-4.2); Glucose 154 mg/dL (74-106); Potassium 3.5 mmol/L (3.5-5.1); Protein, Total 3.5 g/dL (6.4-8.2); Sodium Level 141 mmol/L (136-145)
[2022-05-26 05:28] LABS: Lymphocyte 6 % (19-41); Metamyelocyte 2 % (0-1); Monocyte 5 % (0-10); Neutrophil-Band 6 % (0-5); Neutrophil-Segmented 81 % (47-70); Nucleated Red Bld Cells,Manual 1 % (0-5); Total Cells Counted 100 (MANUAL DIFF)
[2022-05-26 05:29] LABS: Absolute Lymphocyte Count 3.24 X10^3/uL (0.83-4.51); Absolute Neutrophil Count 48.1 X10^3/uL (2.0-7.7); Lymphocyte # 3.24 X10^3/ul (0.83-4.51); Neutrophil # 48.08 X10^3/uL (2.7-7.7); Platelet Estimate ADEQUATE (ADEQ)
[2022-05-26 05:30] LABS: Red Cell Morphology NORM C+C NORMAL (NORM C&C)
[2022-05-26] MEDS: Acetaminophen 650 MG/20 ML UDC 1000 MG PO ×3 (06:18→20:57)
[2022-05-26] MEDS: Menthol/Lanolin/Calamine/Znox 113 GM Tube 1 APPLIC TOPICAL ×3 (06:19→21:01)
[2022-05-26] MEDS: Potassium Chloride Oral Soln 20 MEQ/15 ML UDC PO ×3 (09:41→17:19)
[2022-05-26] MEDS: Ensure Clear 120 ML Liquid PO (09:47)
[2022-05-26] MEDS: Ensure Plus High Protein 120 ML LIQUID PO ×3 (09:47→17:19)
[2022-05-26] MEDS: 0.9 % NaCl (Sterile) Posiflush 10 mL IV (09:49)
--- NOTE | 2022-05-26 10:11 | CASEMGMT ---
JOEY MOORE NOTE: Dr Rene made aware that family is requesting [facility], but pt will need pre-cert. Per Dr Rene, pt is medically ready for discharge today, if she is going to RU or SNF. Call received from Dr Disla from [facility]. She states she has reviewed pt's chart and states she is willing to accept pt, if therapy recommends RU. PT/OT evals have been ordered and call to Judie in therapy to inform her of need of evals. JOEY MOORE will notify CORNELIUS Tobar, of above. Lalo MARTINEZN JOEY CM
--- NOTE | 2022-05-26 14:10 | PCM.PN.ID ---
Physical Exam Narrative Feeling better, abd less sore, no fever Const alert and no apparent distress Resp normal air movement and clear to auscultation bilaterally Cardio regular rate and regular rhythm GI soft to palpation and non-distended; Negative for non-tender Skin no rashes or lesions noted ID ID: Route of nutrition/ use of supplements: [] Nutritional Intake: [] IV Site: [] Joseph Catheter: [] Assessment & Plan Assessment/Plan (1) Intra-abdominal abscess: PLAN: Aspiration done 05/23, cx neg so far. 05/24 changed abx to meropenem, so far tolerating. RLE ulcer without drainage or redness. Moved to icu, wbc is up, lactate was 4.4, and CT showed ductal dilation. MRCP showed no stone. Abd pain better and wbc much better today. Will follow
--- NOTE | 2022-05-26 14:19 | CASEMGMT ---
Social Work SW in to meet with pt and discuss discharge plan. SW was informed by Chelle at Rehab Unit early this morning that pt has been approved for RU placement. SW wanted to discuss plan with pt as SW unsure how plan was established. Pt stated Rehab Unit is preference for rehab/therapy and declined a list for any other options. SW asked Chelle at rehab unit to begin precert for pt. PLAN: [facility] Rehab Unit, pending precert [place]
--- NOTE | 2022-05-26 14:45 | PCM.PN.SRG ---
Subjective Subjective saqib TF at 10 cc; still isn't taking much PO; ensure is better with water as she said it was too thick before. RLQ pain improving, +BM Objective Data Objective Data Vital Signs: Vital Signs Temp Pulse Resp BP Pulse Ox O2 Del Method O2 Flow Rate 97.3 F L 123 H 16 95/63 99 Room Air 2 05/26/22 09:30 05/26/22 12:26 05/26/22 09:30 05/26/22 09:30 05/26/22 09:30 05/26/22 09:30 05/25/22 17:00 Oxygen Flow Rate (L/min) 2 Oxygen Delivery Method Room Air Weight: 130 lb 8.218 oz Body Mass Index (BMI) 19.3 Intake & Output: Intake and Output for Last 24 Hours 05/24/22 05/25/22 05/26/22 23:59 23:59 23:59 Intake Total 6456.66 / 6456.66 4567.58 / 4867.58 1245.42 / 1245.42 Output Total 675 / 1125 450 / 450 Balance 6454.66 / 6454.66 3892.58 / 3742.58 795.42 / 795.42 Medical Nutrition Assessment Dietitian: Malnutrition Criteria Met Start: 05/23/22 13:14 Freq: Status: Active Protocol: Document 05/23/22 13:14 ZIA (Rec: 05/23/22 13:15 [id number]) Nutrition Malnutrition Evidence of Malnutrition Exists Yes Malnutrition (severe): Chronic Evidenced By Suboptimal Energy Intake ( Severe),Weight Loss (Severe) Intake Problem Increased Nutrient Needs (specify) Etiology calories/protein related to increased demand for healing and breast cancer Signs/Symptoms as evidenced by right leg stasis ulcer and pt on chemotherapy Status Active Problem Clinical Problem Chronic Disease or Condition Related Malnutrition Etiology related to lung cancer Signs/Symptoms as evidenced by PO intakes >75 % of estimated energy needs for >1 month and 26.3lbs (24.6 %) weight loss in 3 months Status Active Problem Recommendation Dietitian Recommendations/Changes ADAT to Low Fiber diet when medically able. Recommend 120mL Ensure Clear 4x when diet advances to Clear Liquid, then recommend 118mL Ensure Compact 4x daily when diet >CL to provide supplemental energy and to promote weight gain. Recommend Adrian BID with lunch and dinner once diet advances to promote wound healing. Lab / Micro Data Result Diagrams: 05/26/22 04:20 05/26/22 04:20 Labs: Laboratory Results - last 24 hr 05/26/22 00:00: Phosphorus 2.9, Magnesium 1.6 05/26/22 04:20: Sodium 141, Potassium 3.5, Chloride 115 H, Carbon Dioxide 19.0 L, Anion Gap 7, BUN 8, Creatinine 0.44 L, Estim Creat Clear Calc 142.88, Est GFR (MDRD) Af Amer 203, Est GFR (MDRD) Non-Af 168, BUN/Creatinine Ratio 18.4, Glucose 154 H, Calcium 7.1 L, Total Bilirubin 0.40, AST 28, ALT 34, Alkaline Phosphatase 189 H, Total Protein 3.5 L, Albumin 1.4 L, Globulin 2.1 L, Albumin/Globulin Ratio 0.7 L 05/26/22 04:20: WBC 54.0 H*, RBC 3.44 L, Hgb 9.9 L, Hct 28.6 L, MCV 83.1, MCH 28.8, MCHC 34.6, RDW Std Deviation 52.9 H, RDW Coeff of Seema 17.7 H, Plt Count 198, MPV 9.5, Neut % (Auto) Not Reportable, Absolute Neuts (auto) 48.1 H, Absolute Lymphs (auto) 3.24, Total Counted 100, Neutrophils % (Manual) 81 H, Band Neutrophils % 6 H, Lymphocytes % (Manual) 6 L, Monocytes % (Manual) 5, Metamyelocytes % 2 H, Nucleated RBCs/100 WBC 1, Diff Path Review September, Platelet Estimate ADEQUATE, RBC Morphology NORM C+C Micro: Microbiology 05/25/22 18:00 Stool C. difficile DNA Amplification - Final 05/23/22 17:40 Aspirate - Abdominal Gram Stain - Final 05/23/22 17:40 Aspirate - Abdominal Wound Culture - Final No growth aerobically. 05/23/22 17:40 Aspirate - Abdominal Anaerobic Culture - Preliminary No growth in 48 hours. 05/22/22 20:55 Blood Culture (Wb) - Anticubital Left Blood Culture - Preliminary No growth in 48 hours. 05/22/22 20:40 Blood Culture (Wb) - Anticubital Left Blood Culture - Preliminary No growth in 48 hours. 05/22/22 14:20 Urine, Clean Catch Urine Culture - Final Mixed Gram Positive Organisms 05/22/22 18:15 Nasal Secretion SARS-CoV-2 & FLU Antigen (Rapid) - Final Radiography Diagnostic Testing: Radiology Impression MRCP 05/25/22 13:20 IMPRESSION: Mildly dilated common duct. No evidence of choledocholithiasis. Electronically Signed: Lesia Goodwin MD at 17:59 EST Reading Location ID and State: [id number] / Tel , Service support , Physical Exam Const oriented x3 and no apparent distress Cardio Rate: tachycardic GI soft to palpation GI Narrative: Tender in the right lower quadrant?improved no peritoneal signs Assessment & Plan Assessment/Plan (1) Intra-abdominal abscess: (2) Abdominal wall abscess: (3) Colitis: (4) Severe malnutrition: (5) Sinus tachycardia: (6) Sepsis without acute organ dysfunction: PLAN: Plan RLQ improving last CT improved for abscess- not drainable-too small Severe malnutrition?dobhoff at 10 cc--increasing to 20 cc as pt isn't taking much PO still. OK for premier protein or yogurt bought by family Okay for full liquids will place a Dobbhoff tube for further nutrition patient is at high risk for risk of refeeding syndrome. Planning for rehab at d/c? with a Dobbhoff. IV Protonix 40 mg twice daily on d/c can change to PO daily Leukocytosis?improving; on abx per ID--pt also got growth factors during chemo 2 weeks ago, which can effect labs. Dr. Garrett will be covering over the weekend through Sunday. Samantha Osorio M.D. Pager: [phone] [facility] [address] [place] [address], Outpatient [facility], [address] [place] [address] Office: [phone] Charges/Coding Visit Charges Inpatient E&M: 47523 Subs Hosp L2
--- NOTE | 2022-05-26 14:46 | PN.HOSP_ITS ---
Subjective Subjective Dobbhoff in place, abdominal pain still fair. Breathing improving. Objective Data Objective Data Vital Signs: Vital Signs Temp Pulse Resp BP Pulse Ox O2 Del Method O2 Flow Rate 97.3 F L 123 H 16 95/63 99 Room Air 2 05/26/22 09:30 05/26/22 12:26 05/26/22 09:30 05/26/22 09:30 05/26/22 09:30 05/26/22 09:30 05/25/22 17:00 Oxygen Flow Rate (L/min) 2 Oxygen Delivery Method Room Air Weight: 59.2 kg Body Mass Index (BMI) 19.3 Intake & Output: Intake and Output for Last 24 Hours 05/24/22 05/25/22 05/26/22 23:59 23:59 23:59 Intake Total 6456.66 / 6456.66 4567.58 / 4867.58 1245.42 / 1245.42 Output Total 675 / 1125 450 / 450 Balance 6454.66 / 6454.66 3892.58 / 3742.58 795.42 / 795.42 Medical Nutrition Assessment Dietitian: Malnutrition Criteria Met Start: 05/23/22 13:14 Freq: Status: Active Protocol: Document 05/23/22 13:14 LO (Rec: 05/23/22 13:15 [id number]) Nutrition Malnutrition Evidence of Malnutrition Exists Yes Malnutrition (severe): Chronic Evidenced By Suboptimal Energy Intake ( Severe),Weight Loss (Severe) Intake Problem Increased Nutrient Needs (specify) Etiology calories/protein related to increased demand for healing and breast cancer Signs/Symptoms as evidenced by right leg stasis ulcer and pt on chemotherapy Status Active Problem Clinical Problem Chronic Disease or Condition Related Malnutrition Etiology related to lung cancer Signs/Symptoms as evidenced by PO intakes >75 % of estimated energy needs for >1 month and 26.3lbs (24.6 %) weight loss in 3 months Status Active Problem Recommendation Dietitian Recommendations/Changes ADAT to Low Fiber diet when medically able. Recommend 120mL Ensure Clear 4x when diet advances to Clear Liquid, then recommend 118mL Ensure Compact 4x daily when diet >CL to provide supplemental energy and to promote weight gain. Recommend Adrian BID with lunch and dinner once diet advances to promote wound healing. Lab / Micro Data Result Diagrams: 05/26/22 04:20 05/26/22 04:20 Labs: Laboratory Results - last 24 hr 05/26/22 00:00: Phosphorus 2.9, Magnesium 1.6 05/26/22 04:20: Sodium 141, Potassium 3.5, Chloride 115 H, Carbon Dioxide 19.0 L , Anion Gap 7, BUN 8, Creatinine 0.44 L, Estim Creat Clear Calc 142.88, Est GFR (MDRD) Af Amer 203, Est GFR (MDRD) Non-Af 168, BUN/Creatinine Ratio 18.4, Glucose 154 H, Calcium 7.1 L, Total Bilirubin 0.40, AST 28, ALT 34, Alkaline Phosphatase 189 H, Total Protein 3.5 L, Albumin 1.4 L, Globulin 2.1 L, Albumin/Globulin Ratio 0.7 L 05/26/22 04:20: WBC 54.0 H*, RBC 3.44 L, Hgb 9.9 L, Hct 28.6 L, MCV 83.1, MCH 28.8, MCHC 34.6, RDW Std Deviation 52.9 H, RDW Coeff of Seema 17.7 H, Plt Count 198, MPV 9.5, Neut % (Auto) Not Reportable, Absolute Neuts (auto) 48.1 H, Absolute Lymphs (auto) 3.24, Total Counted 100, Neutrophils % (Manual) 81 H, Band Neutrophils % 6 H, Lymphocytes % (Manual) 6 L, Monocytes % (Manual) 5, Metamyelocytes % 2 H, Nucleated RBCs/100 WBC 1, Diff Path Review September, Platelet Estimate ADEQUATE, RBC Morphology NORM C+C Micro: Microbiology 05/25/22 18:00 Stool C. difficile DNA Amplification - Final 05/23/22 17:40 Aspirate - Abdominal Gram Stain - Final 05/23/22 17:40 Aspirate - Abdominal Wound Culture - Final No growth aerobically. 05/23/22 17:40 Aspirate - Abdominal Anaerobic Culture - Preliminary No growth in 48 hours. 05/22/22 20:55 Blood Culture (Wb) - Anticubital Left Blood Culture - Preliminary No growth in 48 hours. 05/22/22 20:40 Blood Culture (Wb) - Anticubital Left Blood Culture - Preliminary No growth in 48 hours. 05/22/22 14:20 Urine, Clean Catch Urine Culture - Final Mixed Gram Positive Organisms 05/22/22 18:15 Nasal Secretion SARS-CoV-2 & FLU Antigen (Rapid) - Final Radiography Diagnostic Testing: Radiology Impression MRCP 05/25/22 13:20 IMPRESSION: Mildly dilated common duct. No evidence of choledocholithiasis. Electronically Signed: Lesia Goodwin MD at 17:59 EST Reading Location ID and State: [id number] / Tel , Service support , Physical Exam Const alert Constitutional Narrative: Oriented HEENT normocephalic Eyes Eyes Narrative: EOM grossly intact, anicteric Neck supple Resp normal respiratory effort and clear to auscultation bilaterally Cardio regular rhythm Cardio Narrative: Mildly tachycardic GI GI Narrative: Soft, nondistended, still some tenderness in right lower quadrant but improving, no guarding, rebound, rigidity Extremity Extremity Narrative: Minimal lower extremity edema appreciated, right lower extremity wrapped Neuro moves all extremities Neuro Narrative: No overt focal deficits appreciated Psych Psych Narrative: Cooperative, does appear slightly anxious Assessment & Plan Assessment/Plan (1) Colitis: PLAN: Plan #Acute colitis and intra-abdominal abscess CT with 3 cm phlegmon lateral to the descending colon with invasion of the anterior abdominal wall musculature Does have tachycardia, not febrile, does have elevated white blood cell count but reportedly gets an injection with her chemotherapy for her WBC which confounds this, lactic acid within normal limits and blood pressure stable Cultures ordered IV fluids Surgery consulted Continue clinda and gentamicin given her anaphylaxis to penicillin, can consider meropenem but concern for cross reaction Pain control 05/23: Surgeries evaluated and will obtain ultrasound of the area in question, collection may be too small for drain, continuing IV antibiotics at this time. Blood cultures pending 05/24: Right abdominal abscess aspirated, culture pending. Other cultures also pending. Surgery following. Oncology following. adjusting abx, lactic and vbg pending, fluids, ID c/sltd 05/25: Antibiotics changed to Merrem, was worsening clinically yesterday and due to increasing lactic acid CT abdomen was obtained which showed mild persistent for amatory changes in right lower quadrant without a collection. She was post to have IR procedure but with no collection and INR increasing to 3.6 despite vitamin K administration unclear if this will proceed. Surgery following, will await recommendations. More vitamin K given this a.m. lactic acid was elevated overnight, less tachypneic this morning however and anion gap has normalized. Has been adequately fluid resuscitated. ID following. Of note CT did show somewhat of a dilated common bile duct, considering MRCP 05/26: Cultures no growth to date, MRCP with no stone. White blood cell count improving. Tolerating Merrem well, ID following. #Poor nutritional status Low prealbumin Dobbhoff placed Nutrition consult Monitor for refeeding syndrome #High anion gap metabolic acidosis?resolved Bicarb is 14 and anion gap is also 14, reports she is feeling better overall but is slightly tachycardic and has somewhat low BP. Stat lactic acid and stat VBG ordered. She has been receiving fluids and abx but will adjust pending ID c/s. 05/25: Resolved with further antibiotic administration and fluids #Acute on chronic anemia On admission hemoglobin 8.3 which was close to baseline This a.m. was 5.2, 2 units of blood ordered Will order repeat hemoglobin, no overt evidence of bleeding, suspect this is in part delusional and also due to chemotherapy Continue to monitor Needs outpatient colonoscopy once stable 05/24: Robust response to 2 units, hemoglobin now 11.5. No signs of bleeding. #Breast cancer undergoing chemotherapy Chemotherapy due next week Was post to have an appointment with her oncologist tomorrow Given active cancer with chemotherapy and poor clinical status will consult her oncologist 05/24: will f/u outpt on d/c #Hypokalemia Replaced, repeat BMP #Right lower extremity wound On broad-spectrum antibiotics at this time Wound presently wrapped #DVT ppx: Rashaun Rene MD Charges/Coding Visit Charges Inpatient E&M: 27311 Subs Hosp L2
[2022-05-27] VITALS (11 sets, daily range): BP systolic 90–98; BP diastolic 65–74; PULSE 95–116; RESP 16–18; TEMP 36.6–36.8; O2SAT 97–99
[2022-05-27 01:01] LABS: Magnesium 1.9 mg/dL (1.6-2.6)
[2022-05-27] MEDS: Acetaminophen 650 MG/20 ML UDC 1000 MG PO ×2 (05:09→11:11)
[2022-05-27] MEDS: Menthol/Lanolin/Calamine/Znox 113 GM Tube 1 APPLIC TOPICAL ×3 (05:09→21:06)
[2022-05-27 06:01] LABS: Absolute Lymphocyte Count 2.48 X10^3/uL (0.83-4.51); Absolute Neutrophil Count 25.6 X10^3/uL (2.0-7.7); Basophil# 0.12 X10^3/uL; Basophil% 0.4 % (0-1); Eosinophil# 0.01 X10^3/uL; Hematocrit 29.6 % (37-47); Hemoglobin 10.1 g/dL (12.0-15.0); Lymphocyte # 2.48 X10^3/ul (0.83-4.51); Lymphocyte % 7.9 % (19-41); Mean Corp Hgb Conc 34.1 g/dL (32-36); Mean Corpuscular Hgb 28.5 pg (27.0-32.0); Mean Corpuscular Volume 83.6 fL (81-99); Mean Platelet Vol. 9.4 fl (6.2-12.0); Monocyte# 1.96 X10^3/uL; Monocyte% 6.3 % (0-10); NRBC Flagged by Analyzer 0.1 % (0-5); Neutrophil % 81.9 % (47-70); POSITIVE COUNT YES; POSITIVE DIFFERENTIAL YES; POSITIVE MORPHOLOGY YES; Platelet Count 217 K/mm3 (150-450); RBC Distribution Width CV 17.9 % (11.6-14.6); RBC Distribution Width SD 53.5 fl (35.1-43.9); Red Blood Count 3.54 M/mm3 (4.2-5.4)
[2022-05-27 06:10] LABS: International Normalized Ratio 1.5; Prothrombin Time (Protime)PT. 17.9 SECONDS (11.7-14.9)
[2022-05-27 06:23] LABS: Differential Indicated SCAN CRITERIA MET
[2022-05-27 06:24] LABS: White Blood Count 31.3 K/mm3 (4.4-11.0)
[2022-05-27 06:25] LABS: Differential Comment SCANNED
[2022-05-27 06:26] LABS: ALB/GLOB Ratio 0.7 RATIO (0.9-2.4); AST(SGOT) 53 U/L (15-37); Alanine Aminotransfer ALT/SGPT 43 U/L (13-56); Albumin, Serum 1.5 g/dL (3.2-5.0); Alkaline Phosphatase 316 U/L (45-117); Anion Gap 8 (5-15); BUN 13 mg/dL (7-18); BUN/Creat Ratio 32.7 RATIO (10-20); Calcium,Total 7.2 mg/dL (8.5-10.1); Chloride 113 mmol/L (98-107); EST Glomerular Filtration Rate 186 mL/min (>60); Est Glom Filt Rate - Afr Amer 225 mL/min (>60); Estimated Creatinine Clearance 161.46 ml/min; Globulin 2.2 g/dL (2.2-4.2); Glucose 159 mg/dL (74-106); Potassium 4.1 mmol/L (3.5-5.1); Protein, Total 3.7 g/dL (6.4-8.2); Sodium Level 140 mmol/L (136-145)
--- NOTE | 2022-05-27 07:08 | PN.HOSP_ITS ---
Subjective Subjective Still slight abdominal tenderness but overall feeling better, breathing at rest is more comfortable but still some shortness of breath moving around, still has some swelling in hands and legs. Overall improving however. Objective Data Objective Data Vital Signs: Vital Signs Temp Pulse Resp BP Pulse Ox O2 Del Method O2 Flow Rate 98.1 F 98 17 98/74 97 Room Air 2 05/27/22 02:33 05/27/22 03:27 05/27/22 02:33 05/27/22 02:33 05/27/22 02:33 05/27/22 02:33 05/25/22 17:00 Oxygen Flow Rate (L/min) 2 Oxygen Delivery Method Room Air Weight: 56.4 kg Body Mass Index (BMI) 19.3 Intake & Output: Intake and Output for Last 24 Hours 05/25/22 05/26/22 05/27/22 23:59 23:59 23:59 Intake Total 4567.58 / 4867.58 1717.09 / 1777.09 240 / 240 Output Total 675 / 1125 600 / 800 400 / 400 Balance 3892.58 / 3742.58 1117.09 / 977.09 -160 / -160 Medical Nutrition Assessment Dietitian: Malnutrition Criteria Met Start: 05/23/22 13:14 Freq: Status: Active Protocol: Document 05/26/22 15:31 AG (Rec: 05/26/22 15:42 AG [id number]) Nutrition Malnutrition Evidence of Malnutrition Exists Yes Malnutrition (severe): Chronic Evidenced By Suboptimal Energy Intake ( Severe),Weight Loss (Severe) Intake Problem Increased Nutrient Needs (specify) Etiology calories/protein related to increased demand for healing and breast cancer Signs/Symptoms as evidenced by right leg stasis ulcer and pt on chemotherapy Status Active Problem Clinical Problem Chronic Disease or Condition Related Malnutrition Etiology related to lung cancer Signs/Symptoms as evidenced by PO intakes >75 % of estimated energy needs for >1 month and 26.3lbs (24.6 %) weight loss in 3 months Status Active Problem Recommendation Dietitian Recommendations/Changes 1) Continue full liquid diet per Dr. Osorio. 2) Via NGT- Will increase Pivot 1.5 via NGT to 20mL/hour w/ 60mL H2O flush every 4 hours to provide 720 calories, 45 g protein, and 720mL fluid /day. 3) 120mL Ensure Plus High Protein or Premier Protein ( provided from home) 4x/day w/ medpass (vanilla). 4) Daily wts. 5) Close monitoring of electrolytes- concerns for refeeding. Lab / Micro Data Result Diagrams: 05/27/22 05:55 05/27/22 05:55 Labs: Laboratory Results - last 24 hr 05/27/22 00:35: Phosphorus 2.0 L, Magnesium 1.9 05/27/22 05:55: Sodium 140, Potassium 4.1, Chloride 113 H, Carbon Dioxide 19.0 L , Anion Gap 8, BUN 13, Creatinine 0.40 L, Estim Creat Clear Calc 161.46, Est GFR (MDRD) Af Amer 225, Est GFR (MDRD) Non-Af 186, BUN/Creatinine Ratio 32.7 H, Glucose 159 H, Calcium 7.2 L, Total Bilirubin 0.50, AST 53 H, ALT 43, Alkaline Phosphatase 316 H, Total Protein 3.7 L, Albumin 1.5 L, Globulin 2.2, Albumin/Globulin Ratio 0.7 L 05/27/22 05:55: WBC 31.3 H*, RBC 3.54 L, Hgb 10.1 L, Hct 29.6 L, MCV 83.6, MCH 28.5, MCHC 34.1, RDW Std Deviation 53.5 H, RDW Coeff of Seema 17.9 H, Plt Count 217, MPV 9.4, Immature Gran % (Auto) 3.500 H, Neut % (Auto) 81.9 H, Lymph % (Auto) 7.9 L, [place] % (Auto) 6.3, Eos % (Auto) 0.0, Baso % (Auto) 0.4, Absolute Neuts (auto) 25.6 H, Absolute Lymphs (auto) 2.48, Nucleated RBC % 0.1, Differential Comment SCANNED, Diff Path Review September05/27/22 05:55: PT 17.9 H, INR 1.5 Micro: Microbiology 05/25/22 18:00 Stool C. difficile DNA Amplification - Final 05/23/22 17:40 Aspirate - Abdominal Gram Stain - Final 05/23/22 17:40 Aspirate - Abdominal Wound Culture - Final No growth aerobically. 05/23/22 17:40 Aspirate - Abdominal Anaerobic Culture - Preliminary No growth in 48 hours. 05/22/22 20:55 Blood Culture (Wb) - Anticubital Left Blood Culture - Prelimi nary No growth in 48 hours. 05/22/22 20:40 Blood Culture (Wb) - Anticubital Left Blood Culture - Preliminary No growth in 48 hours. 05/22/22 14:20 Urine, Clean Catch Urine Culture - Final Mixed Gram Positive Organisms 05/22/22 18:15 Nasal Secretion SARS-CoV-2 & FLU Antigen (Rapid) - Final Physical Exam Const alert Constitutional Narrative: Oriented HEENT normocephalic Eyes Eyes Narrative: EOM grossly intact, anicteric Neck supple Resp normal respiratory effort and clear to auscultation bilaterally Cardio regular rhythm Cardio Narrative: Mildly tachycardic GI GI Narrative: Soft, nondistended, still some tenderness in right lower quadrant but improving, no guarding, rebound, rigidity Extremity Extremity Narrative: Minimal lower extremity edema appreciated, right lower extremity wrapped Neuro Neuro Narrative: No overt focal deficits appreciated Psych Psych Narrative: Cooperative, does appear slightly anxious Assessment & Plan Assessment/Plan (1) Colitis: PLAN: Plan #Acute colitis and intra-abdominal abscess CT with 3 cm phlegmon lateral to the descending colon with invasion of the anterior abdominal wall musculature Does have tachycardia, not febrile, does have elevated white blood cell count but reportedly gets an injection with her chemotherapy for her WBC which confounds this, lactic acid within normal limits and blood pressure stable Cultures ordered IV fluids Surgery consulted Continue clinda and gentamicin given her anaphylaxis to penicillin, can consider meropenem but concern for cross reaction Pain control 05/23: Surgeries evaluated and will obtain ultrasound of the area in question, collection may be too small for drain, continuing IV antibiotics at this time. Blood cultures pending 05/24: Right abdominal abscess aspirated, culture pending. Other cultures also pending. Surgery following. Oncology following. adjusting abx, lactic and vbg pending, fluids, ID c/sltd 05/25: Antibiotics changed to Merrem, was worsening clinically yesterday and due to increasing lactic acid CT abdomen was obtained which showed mild persistent for amatory changes in right lower quadrant without a collection. She was post to have IR procedure but with no collection and INR increasing to 3.6 despite vitamin K administration unclear if this will proceed. Surgery following, will await recommendations. More vitamin K given this a.m. lactic acid was elevated overnight, less tachypneic this morning however and anion gap has normalized. Has been adequately fluid resuscitated. ID following. Of note CT did show somewhat of a dilated common bile duct, considering MRCP 05/26: Cultures no growth to date, MRCP with no stone. White blood cell count improving. Tolerating Merrem well, ID following. 05/27: White blood cell count improving, continue on Merrem. Cultures no growth to date #Poor nutritional status Low prealbumin Dobbhoff placed Nutrition consult Monitor for refeeding syndrome 05/27: Tolerating tube feeds at 20, monitoring electrolytes and replacing #High anion gap metabolic acidosis?resolved Bicarb is 14 and anion gap is also 14, reports she is feeling better overall but is slightly tachycardic and has somewhat low BP. Stat lactic acid and stat VBG ordered. She has been receiving fluids and abx but will adjust pending ID c/s. 05/25: Resolved with further antibiotic administration and fluids #Acute on chronic anemia On admission hemoglobin 8.3 which was close to baseline This a.m. was 5.2, 2 units of blood ordered Will order repeat hemoglobin, no overt evidence of bleeding, suspect this is in part delusional and also due to chemotherapy Continue to monitor Needs outpatient colonoscopy once stable 05/24: Robust response to 2 units, hemoglobin now 11.5. No signs of bleeding. #Breast cancer undergoing chemotherapy Chemotherapy due next week Was post to have an appointment with her oncologist tomorrow Given active cancer with chemotherapy and poor clinical status will consult her oncologist 05/24: will f/u outpt on d/c #Right lower extremity wound On broad-spectrum antibiotics at this time Wound presently wrapped MDM: Is improving, tolerating tube feeds at this time. Physical therapy recommending placement. Patient now stable, can begin to pursue placement. Will be discharged with a Dobbhoff and antibiotics. Continue to monitor for refeeding syndrome #DVT ppx: Rashaun Rene MD Charges/Coding Visit Charges Inpatient E&M: 62148 Subs Hosp L2
--- NOTE | 2022-05-27 09:03 | PCM.PN.SRG ---
Subjective Subjective Patient reports she is tolerating tube feeds. She denies any nausea or vomiting or abdominal pain. Objective Data Objective Data Vital Signs: Vital Signs Temp Pulse Resp BP Pulse Ox O2 Del Method O2 Flow Rate 98.1 F 98 17 98/74 97 Room Air 2 05/27/22 02:33 05/27/22 03:27 05/27/22 02:33 05/27/22 02:33 05/27/22 07:09 05/27/22 07:09 05/25/22 17:00 Oxygen Flow Rate (L/min) 2 Oxygen Delivery Method Room Air Weight: 124 lb 5.451 oz Body Mass Index (BMI) 19.3 Intake & Output: Intake and Output for Last 24 Hours 05/25/22 05/26/22 05/27/22 23:59 23:59 23:59 Intake Total 4567.58 / 4867.58 1717.09 / 1777.09 240 / 240 Output Total 675 / 1125 600 / 800 400 / 400 Balance 3892.58 / 3742.58 1117.09 / 977.09 -160 / -160 Medical Nutrition Assessment Dietitian: Malnutrition Criteria Met Start: 05/23/22 13:14 Freq: Status: Active Protocol: Document 05/26/22 15:31 AG (Rec: 05/26/22 15:42 AG [id number]) Nutrition Malnutrition Evidence of Malnutrition Exists Yes Malnutrition (severe): Chronic Evidenced By Suboptimal Energy Intake ( Severe),Weight Loss (Severe) Intake Problem Increased Nutrient Needs (specify) Etiology calories/protein related to increased demand for healing and breast cancer Signs/Symptoms as evidenced by right leg stasis ulcer and pt on chemotherapy Status Active Problem Clinical Problem Chronic Disease or Condition Related Malnutrition Etiology related to lung cancer Signs/Symptoms as evidenced by PO intakes >75 % of estimated energy needs for >1 month and 26.3lbs (24.6 %) weight loss in 3 months Status Active Problem Recommendation Dietitian Recommendations/Changes 1) Continue full liquid diet per Dr. Osorio. 2) Via NGT- Will increase Pivot 1.5 via NGT to 20mL/hour w/ 60mL H2O flush every 4 hours to provide 720 calories, 45 g protein, and 720mL fluid /day. 3) 120mL Ensure Plus High Protein or Premier Protein ( provided from home) 4x/day w/ medpass (vanilla). 4) Daily wts. 5) Close monitoring of electrolytes- concerns for refeeding. Lab / Micro Data Result Diagrams: 05/27/22 05:55 05/27/22 05:55 Labs: Laboratory Results - last 24 hr 05/27/22 00:35: Phosphorus 2.0 L, Magnesium 1.9 05/27/22 05:55: Sodium 140, Potassium 4.1, Chloride 113 H, Carbon Dioxide 19.0 L, Anion Gap 8, BUN 13, Creatinine 0.40 L, Estim Creat Clear Calc 161.46, Est GFR (MDRD) Af Amer 225, Est GFR (MDRD) Non-Af 186, BUN/Creatinine Ratio 32.7 H, Glucose 159 H, Calcium 7.2 L, Total Bilirubin 0.50, AST 53 H, ALT 43, Alkaline Phosphatase 316 H, Total Protein 3.7 L, Albumin 1.5 L, Globulin 2.2, Albumin/Globulin Ratio 0.7 L 05/27/22 05:55: WBC 31.3 H*, RBC 3.54 L, Hgb 10.1 L, Hct 29.6 L, MCV 83.6, MCH 28.5, MCHC 34.1, RDW Std Deviation 53.5 H, RDW Coeff of Seema 17.9 H, Plt Count 217, MPV 9.4, Immature Gran % (Auto) 3.500 H, Neut % (Auto) 81.9 H, Lymph % (Auto) 7.9 L, Robeson % (Auto) 6.3, Eos % (Auto) 0.0, Baso % (Auto) 0.4, Absolute Neuts (auto) 25.6 H, Absolute Lymphs (auto) 2.48, Nucleated RBC % 0.1, Differential Comment SCANNED, Diff Path Review September05/27/22 05:55: PT 17.9 H, INR 1.5 Micro: Microbiology 05/25/22 18:00 Stool C. difficile DNA Amplification - Final 05/23/22 17:40 Aspirate - Abdominal Gram Stain - Final 05/23/22 17:40 Aspirate - Abdominal Wound Culture - Final No growth aerobically. 05/23/22 17:40 Aspirate - Abdominal Anaerobic Culture - Preliminary No growth in 48 hours. 05/22/22 20:55 Blood Culture (Wb) - Anticubital Left Blood Culture - Preliminary No growth in 48 hours. 05/22/22 20:40 Blood Culture (Wb) - Anticubital Left Blood Culture - Preliminary No growth in 48 hours. 05/22/22 14:20 Urine, Clean Catch Urine Culture - Final Mixed Gram Positive Organisms 05/22/22 18:15 Nasal Secretion SARS-CoV-2 & FLU Antigen (Rapid) - Final Physical Exam Const oriented x3 Resp normal respiratory effort GI soft to palpation and non-tender Assessment & Plan Assessment/Plan (1) Severe malnutrition: (2) Intra-abdominal abscess: PLAN: Plan Patient is tolerating tube feeds at 20 cc/h. They are slowly advancing. She denies any abdominal pain. She denies diarrhea at this time. No nausea or vomiting. Continue tube feeds and diet as tolerated. Pan Garrett MD Pager: [facility] [address] [place] [address], [address] [place] [address] Office:
[2022-05-27] MEDS: Midodrine HCl 5 MG Tablet 10 MG PO ×3 (10:55→18:00)
[2022-05-27] MEDS: Potassium Chloride Oral Soln 20 MEQ/15 ML UDC PO ×3 (10:55→18:00)
[2022-05-27] MEDS: Ensure Plus High Protein 120 ML LIQUID PO ×3 (10:55→18:00)
[2022-05-27] MEDS: Pantoprazole Sodium 40 MG Tablet PO (10:58)
[2022-05-27] MEDS: Ondansetron 4 MG/2 ML Vial IV ×2 (12:58→23:00)
[2022-05-27] MEDS: Pivot 1.5 Cal 1,000 ML 20 ML GT (17:59)
[2022-05-27] MEDS: 0.9 % NaCl (Sterile) Posiflush 10 mL IV (23:01)
[2022-05-28] VITALS (8 sets, daily range): BP systolic 97–117; BP diastolic 69–84; PULSE 95–117; RESP 16; TEMP 36.6; O2SAT 98
[2022-05-28] MEDS: Menthol/Lanolin/Calamine/Znox 113 GM Tube 1 APPLIC TOPICAL ×2 (05:09→16:57)
[2022-05-28 05:15] LABS: Absolute Lymphocyte Count 2.72 X10^3/uL (0.83-4.51); Absolute Neutrophil Count 20.8 X10^3/uL (2.0-7.7); Basophil# 0.09 X10^3/uL; Basophil% 0.3 % (0-1); Hematocrit 28.6 % (37-47); Hemoglobin 9.7 g/dL (12.0-15.0); Lymphocyte # 2.72 X10^3/ul (0.83-4.51); Lymphocyte % 10.4 % (19-41); Mean Corp Hgb Conc 33.9 g/dL (32-36); Mean Corpuscular Hgb 28.3 pg (27.0-32.0); Mean Corpuscular Volume 83.4 fL (81-99); Mean Platelet Vol. 10.1 fl (6.2-12.0); Monocyte# 1.95 X10^3/uL; Monocyte% 7.4 % (0-10); NRBC Flagged by Analyzer 0.1 % (0-5); Neutrophil # 20.78 X10^3/uL (2.7-7.7); Neutrophil % 79.4 % (47-70); POSITIVE DIFFERENTIAL YES; POSITIVE MORPHOLOGY YES; Platelet Count 241 K/mm3 (150-450); RBC Distribution Width CV 17.9 % (11.6-14.6); RBC Distribution Width SD 53.4 fl (35.1-43.9); Red Blood Count 3.43 M/mm3 (4.2-5.4); White Blood Count 26.2 K/mm3 (4.4-11.0)
[2022-05-28 05:34] LABS: Differential Indicated SCAN CRITERIA MET
[2022-05-28 05:35] LABS: Phosphorus 2.2 mg/dL (2.5-4.9)
[2022-05-28 06:18] LABS: ALB/GLOB Ratio 0.6 RATIO (0.9-2.4); AST(SGOT) 88 U/L (15-37); Alanine Aminotransfer ALT/SGPT 63 U/L (13-56); Albumin, Serum 1.4 g/dL (3.2-5.0); Alkaline Phosphatase 303 U/L (45-117); Anion Gap 4 (5-15); BUN 13 mg/dL (7-18); BUN/Creat Ratio 42.3 RATIO (10-20); Calcium,Total 7.4 mg/dL (8.5-10.1); Chloride 111 mmol/L (98-107); Creatinine, Serum 0.31 mg/dL (0.55-1.02); EST Glomerular Filtration Rate 251 mL/min (>60); Est Glom Filt Rate - Afr Amer 303 mL/min (>60); Estimated Creatinine Clearance 208.34 ml/min; Globulin 2.4 g/dL (2.2-4.2); Glucose 129 mg/dL (74-106); Magnesium 1.3 mg/dL (1.6-2.6); Potassium 4.7 mmol/L (3.5-5.1); Protein, Total 3.8 g/dL (6.4-8.2); Sodium Level 138 mmol/L (136-145)
[2022-05-28 06:37] LABS: Differential Comment SCANNED
--- NOTE | 2022-05-28 08:57 | PN.HOSP_ITS ---
Subjective Subjective Continues to improve, does have some swelling still in her legs and feels it makes it harder to move them/somewhat uncomfortable to. No longer receiving IV fluids and heart rate improved, blood pressure maintaining. Had a little bit of nausea after drinking Ensure and taking medicines yesterday and feels like she may just need to space these out slightly. Abdominal pain roughly the same. Objective Data Objective Data Vital Signs: Vital Signs Temp Pulse Resp BP Pulse Ox O2 Del Method O2 Flow Rate 97.8 F 101 H 16 97/69 98 Room Air 2 05/28/22 05:00 05/28/22 05:00 05/28/22 05:00 05/28/22 05:00 05/28/22 08:43 05/28/22 08:43 05/25/22 17:00 Oxygen Flow Rate (L/min) 2 Oxygen Delivery Method Room Air Weight: 57.4 kg Body Mass Index (BMI) 19.3 Intake & Output: Intake and Output for Last 24 Hours 05/26/22 05/27/22 05/28/22 23:59 23:59 23:59 Intake Total 1717.09 / 1777.09 1645.0033 / 2045.0033 580 / 580 Output Total 600 / 800 1100 / 1200 500 / 500 Balance 1117.09 / 977.09 545.0033 / 845.0033 80 / 80 Medical Nutrition Assessment Dietitian: Malnutrition Criteria Met Start: 05/23/22 13:14 Freq: Status: Active Protocol: Document 05/27/22 11:48 AG (Rec: 05/27/22 11:48 AG [id number]) Nutrition Malnutrition Evidence of Malnutrition Exists Yes Malnutrition (severe): Chronic Evidenced By Suboptimal Energy Intake ( Severe),Weight Loss (Severe) Intake Problem Increased Nutrient Needs (specify) Etiology calories/protein related to increased demand for healing and breast cancer Signs/Symptoms as evidenced by right leg stasis ulcer and pt on chemotherapy Status Active Problem Clinical Problem Chronic Disease or Condition Related Malnutrition Etiology related to lung cancer Signs/Symptoms as evidenced by PO intakes >75 % of estimated energy needs for >1 month and 26.3lbs (24.6 %) weight loss in 3 months Status Active Problem Recommendation Dietitian Recommendations/Changes 1) Continue full liquid diet per Dr. Osorio. 2) Will continue Pivot 1.5 via NGT to 20mL/hour w/ 60mL H2O flush every 4 hours to provide 720 calories, 45 g protein, and 720mL fluid/day which meets >50% of estimated calorie/protein needs. 3) 120mL Ensure Plus High Protein or Premier Protein ( provided from home) 4x/day w/ medpass (vanilla). 4) Daily wts. 5) Close monitoring of electrolytes- concerns for refeeding. Lab / Micro Data Result Diagrams: 05/28/22 04:55 05/28/22 04:55 Labs: Laboratory Results - last 24 hr 05/28/22 04:55: Sodium 138, Potassium 4.7, Chloride 111 H, Carbon Dioxide 23.0, Anion Gap 4 L, BUN 13, Creatinine 0.31 L, Estim Creat Clear Calc 208.34, Est GFR (MDRD) Af Amer 303, Est GFR (MDRD) Non-Af 251, BUN/Creatinine Ratio 42.3 H, Glucose 129 H, Calcium 7.4 L, Magnesium 1.3 L, Total Bilirubin 0.60, AST 88 H, ALT 63 H, Alkaline Phosphatase 303 H, Total Protein 3.8 L, Albumin 1.4 L, Globulin 2.4, Albumin/Globulin Ratio 0.6 L 05/28/22 04:55: WBC 26.2 H, RBC 3.43 L, Hgb 9.7 L, Hct 28.6 L, MCV 83.4, MCH 28.3, MCHC 33.9, RDW Std Deviation 53.4 H, RDW Coeff of Seema 17.9 H, Plt Count 241, MPV 10.1, Immature Gran % (Auto) 2.500 H, Neut % (Auto) 79.4 H, Lymph % (Auto) 10.4 L, Victoria % (Auto) 7.4, Eos % (Auto) 0.0, Baso % (Auto) 0.3, Absolute Neuts (auto) 20.8 H, Absolute Lymphs (auto) 2.72, Nucleated RBC % 0.1, Differe ntial Comment SCANNED, Diff Path Review September05/28/22 04:55: Phosphorus 2.2 L Micro: Microbiology 05/22/22 20:55 Blood Culture (Wb) - Anticubital Left Blood Culture - Final No growth in 5 days. 05/22/22 20:40 Blood Culture (Wb) - Anticubital Left Blood Culture - Final No growth in 5 days. 05/25/22 18:00 Stool C. difficile DNA Amplification - Final 05/23/22 17:40 Aspirate - Abdominal Gram Stain - Final 05/23/22 17:40 Aspirate - Abdominal Wound Culture - Final No growth aerobically. 05/23/22 17:40 Aspirate - Abdominal Anaerobic Culture - Preliminary No growth in 48 hours. 05/22/22 14:20 Urine, Clean Catch Urine Culture - Final Mixed Gram Positive Organisms 05/22/22 18:15 Nasal Secretion SARS-CoV-2 & FLU Antigen (Rapid) - Final Physical Exam Const alert Constitutional Narrative: Oriented HEENT normocephalic Eyes Eyes Narrative: EOM grossly intact, anicteric Neck supple Resp normal respiratory effort and clear to auscultation bilaterally Cardio regular rate and regular rhythm GI GI Narrative: Soft, nondistended, mild tenderness roughly the same and right lower quadrant Extremity Extremity Narrative: Minimal lower extremity edema appreciated, right lower extremity wrapped Neuro Neuro Narrative: No overt focal deficits appreciated Psych Psych Narrative: Cooperative Assessment & Plan Assessment/Plan (1) Colitis: PLAN: Plan #Acute colitis and intra-abdominal abscess CT with 3 cm phlegmon lateral to the descending colon with invasion of the anterior abdominal wall musculature Does have tachycardia, not febrile, does have elevated white blood cell count but reportedly gets an injection with her chemotherapy for her WBC which confounds this, lactic acid within normal limits and blood pressure stable Cultures ordered IV fluids Surgery consulted Continue clinda and gentamicin given her anaphylaxis to penicillin, can consider meropenem but concern for cross reaction Pain control 05/23: Surgeries evaluated and will obtain ultrasound of the area in question, collection may be too small for drain, continuing IV antibiotics at this time. Blood cultures pending 05/24: Right abdominal abscess aspirated, culture pending. Other cultures also pending. Surgery following. Oncology following. adjusting abx, lactic and vbg pending, fluids, ID c/sltd 05/25: Antibiotics changed to Merrem, was worsening clinically yesterday and due to increasing lactic acid CT abdomen was obtained which showed mild persistent for amatory changes in right lower quadrant without a collection. She was post to have IR procedure but with no collection and INR increasing to 3.6 despite vitamin K administration unclear if this will proceed. Surgery following, will await recommendations. More vitamin K given this a.m. lactic acid was elevated overnight, less tachypneic this morning however and anion gap has normalized. Has been adequately fluid resuscitated. ID following. Of note CT did show somewhat of a dilated common bile duct, considering MRCP 05/26: Cultures no growth to date, MRCP with no stone. White blood cell count improving. Tolerating Merrem well, ID following. 05/27: White blood cell count improving, continue on Merrem. Cultures no growth to date 05/28: Continues to improve, on antibiotics at this time. No worsening of abdominal pain, white count improving, heart rate improving and blood pressure stable #Poor nutritional status Low prealbumin Dobbhoff placed Nutrition consult Monitor for refeeding syndrome 05/27: Tolerating tube feeds at 20, monitoring electrolytes and replacing 05/28: Advancing tube feeds as tolerated, Dobbhoff in place and will be discharged with this. Slight bump in liver enzymes, will trend this. Had MRCP without stone several days ago #High anion gap metabolic acidosis?resolved Bicarb is 14 and anion gap is also 14, reports she is feeling better overall but is slightly tachycardic and has somewhat low BP. Stat lactic acid and stat VBG ordered. She has been receiving fluids and abx but will adjust pending ID c/s. 05/25: Resolved with further antibiotic administration and fluids #Acute on chronic anemia On admission hemoglobin 8.3 which was close to baseline This a.m. was 5.2, 2 units of blood ordered Will order repeat hemoglobin, no overt evidence of bleeding, suspect this is in part delusional and also due to chemotherapy Continue to monitor Needs outpatient colonoscopy once stable 05/24: Robust response to 2 units, hemoglobin now 11.5. No signs of bleeding. 05/28: Stable #Breast cancer undergoing chemotherapy Chemotherapy due next week Was post to have an appointment with her oncologist tomorrow Given active cancer with chemotherapy and poor clinical status will consult her oncologist 05/24: will f/u outpt on d/c #Right lower extremity wound On broad-spectrum antibiotics at this time Wound presently wrapped MDM: Is improving, tolerating tube feeds at this time. Physical therapy recommending placement. Patient now stable, can begin to pursue placement. Will be discharged with a Dobbhoff and antibiotics. Continue to monitor for refeeding syndrome #DVT ppx: Rashaun Rene MD Charges/Coding Visit Charges Inpatient E&M: 82188 Subs Hosp L2
[2022-05-28] MEDS: Magnesium Sulfate 4gm/100mL 4 GM/100 ML IV.SOLN. IV (10:13)
[2022-05-28] MEDS: Potassium Chloride Oral Soln 20 MEQ/15 ML UDC PO ×3 (10:14→16:56)
[2022-05-28] MEDS: Midodrine HCl 5 MG Tablet 10 MG PO ×3 (10:14→16:55)
[2022-05-28] MEDS: oxyCODONE 5 MG Tablet PO (10:14)
[2022-05-28] MEDS: Ensure Plus High Protein 120 ML LIQUID PO ×2 (10:15→14:35)
[2022-05-28] MEDS: Pantoprazole Sodium 40 MG Tablet PO (10:17)
--- NOTE | 2022-05-28 15:05 | PCM.DC ---
Discharge Instructions Diet Discharge Diet: - (1. Continue full liquid diet per Dr. Bonilla 2. We will continue Pivot 1.5 via NGT to 20 mL/h with 60 mL H2O flush every 4 hours to provide 720 ginny, 46 g of protein, and 720 mL of fluid per day which meets greater than 50% of estimated calorie/protein needs 3. 120 mL Ensure Plus high-protein or Pr) Activity Discharge Activity: - (Activity as tolerated, per inpatient rehab discretion) Follow Up Care Test Results: Test results from this visit will be discussed in further detail at your follow-up appointment, if applicable. Discharge Plan Admission Admit Date/Time: 05/22/22 17:24 Primary Reason for Your Visit: Abdominal pain Attending Provider: Ernestina Rene Primary Care Provider: Jam Verde Consulting Providers: Samantha Osorio ; Reed Rodarte ; Tapan Bryant ; John Griffin ; Abebe Paiz ; Devin Zabala ; Mayra Morley NETWORK OPERATIONS SPECIALIST ; Renzo Hayden ; Carlyle Sparks ; Theodore Perez ; Reed Mcgrath ; Kiko Kiran ; Franki Laguerre ; Klaus Cartagena ; Chelsea Hernandez NETWORK OPERATIONS SPECIALIST Instructions Patient Instructions: ED Fall Prevention Additional Instructions / Restrictions: DISCHARGE INSTRUCTIONS PLEASE READ ?You are on an antibiotic, meropenem, you will need 1 g every 8 hours for another 5 days through your PICC line ? Continue routine PICC line care ?You will be discharged with a Dobbhoff in place, nutrition has recommended the followin. Continue full liquid diet per Dr. Juares 2. We will continue Pivot 1.5 via NGT to 20 mL/h with 60 mL H2O flush every 4 hours to provide 720 ginny, 46 g of protein, and 720 mL of fluid per day which meets greater than 50% of estimated calorie/protein needs 3. 120 mL Ensure Plus high-protein or Premier protein 4 times a day with med Pass 4. Daily weights 5. Close monitoring of electrolytes?concerns for refeeding ? Your electrolytes have been replaced as needed, would recommend a repeat CMP to monitor liver function and will need potassium, magnesium, phosphorus checked every 24 hours and replace as needed ?Would recommend nutrition continue to follow her while at inpatient rehab ? You will need to follow with Dr. Osorio upon discharge ?You will also need to follow with your cancer doctor, Dr. Perez, upon discharge ?Given your low hemoglobin it was recommended during this admission that you have a colonoscopy as an outpatient to evaluate further ?You will need to continue to have local wound care for right lower extremity wound ? You were started on midodrine for low blood pressure during this hospitalization, as her blood pressure improves this may be decreased or discontinued on an outpatient basis ?You will be discharged on Protonix ? You will continue your potassium 20 mill equivalents 3 times a day which was a home medication, as your potassium improves this may need to be decreased or discontinued -Please call your primary care provider's office upon discharge to schedule a hospital follow up within 1 week. -For any concerning signs or symptoms please call 911 or proceed to the nearest emergency department Discharge Orders/Prescriptions Prescriptions: New loperamide 2 mg Capsule 4 mg PO Q4H PRN PRN (Reason: Diarrhea) Qty: 30 0RF Ensure Plus High Protein 0.08 gram-1.5 kcal/mL Liquid 120 ml PO 4X/DAY Qty: 0 0RF midodrine 5 mg Tablet 10 mg PO TIDCM Qty: 0 0RF menthol-zinc oxide [Calmoseptine] 0.44-20.6 % Ointment 1 applic topical TID Qty: 0 0RF Protocol: *Topical Application Instructions APPLICATION INSTRUCTIONS: apply to coccyx pantoprazole 40 mg Tablet,Delayed Release (Dr/Ec) 40 mg PO DAILY Qty: 0 0RF sennosides-docusate sodium [Stool Softener-Stimulant Laxat] 8.6-50 mg Tablet 2 tab PO BID PRN PRN (Reason: Constipation) Qty: 0 0RF sodium chloride 0.9 % (flush) [Normal Saline Flush] Syringe 10 - 40 ml IV UD PRN (Reason: Port access or dressing change) Qty: 0 0RF acetaminophen 650 mg/20.3 mL Solution 1,000 mg PO Q8H PRN (Reason: Pain 1-10 Or Fever) Qty: 0 0RF meropenem 1 gram Recon Soln 1 g IV Q8 Qty: 0 0RF Continued cholecalciferol (vitamin D3) 1,000 unit capsule 25 mcg (1,000 unit) capsule 2,000 unit PO DAILY duloxetine 20 mg capsule,delayed release(DR/EC) 20 mg PO DAILY lidocaine-prilocaine 2.5-2.5 % cream 1 applic topical ONCE PRN (Reason: port access) 30 Days Qty: 30 2RF prochlorperazine maleate 10 mg tablet 10 mg PO Q6H PRN (Reason: nausea and vomiting) Qty: 30 2RF Magnesium Malate 750 mg PO QHS ondansetron 8 mg tablet,disintegrating 8 mg PO Q8H PRN (Reason: nausea and vomiting) Qty: 30 2RF potassium chloride 20 mEq/15 mL liquid 20 meq PO TID Qty: 450 0RF scopolamine base 1 mg over 3 days patch 3 day 1 patch transdermal Q72H MAGIC MOUTH WASH (BMX) 180 mL suspension 15 ml PO .Q6HR Rx Instructions: diphenhydramine 12.5 mg/5 mL oral liquid 60 mL; aluminum-mag hydroxide-simethicone 400 mg-400 mg-40 mg/5 mL oral susp 60 mL; Lidocaine Viscous 2 % mucosal solution 60 mL; Per 180 mL Discontinued dexamethasone 4 mg tablet 8 mg PO .COMPLEX Rx Instructions: 8 mg orally; twice daily ONLY the day before, day of and the day after chemotherapy levofloxacin 500 mg tablet 500 mg PO DAILY Referrals / Follow Up: Jam Verde MD [Primary Care Provider] - Theodore Perez MD [Med Staff - Active Staff] - See Referral Note (Follow-up upon discharge) Samantha Osorio MD [Med Staff - Active Staff] - None Disposition Disposition (needs filled in before D/C Order can be placed): Inpatient Rehab Unit/Facility
--- NOTE | 2022-05-28 15:09 | CASEMGMT ---
JOEY CM: Notification received from Chelle with [facility] Acute Rehab unit that authorization has been obtained and pt can admit on this date if medically ready. Dr. Rene notified. Ame Pollack RN CM
--- NOTE | 2022-05-28 15:39 | PCM.DC.SUM ---
Providers Date of Admission: 05/22/22 Date of Discharge: 05/28/22 Primary Care Physician: Dr. Jam Verde MD Consultations 05/22/22 18:54 Consult: General Surgery Routine Consulting Provider: Samantha Osorio Reason for Consult: phlegmon into abd wall musculature EMERGENT Consult: No MD Notified: Yes Date Notified: 05/22/22 Time Notified: 17:44 Method of Notification: ED Physician Initiated Consult: Onc/Wound/procedure tech Routine Comment: Reason for Consult:: RLE wound, follows wound care outpt, reports worsening overnight Consult: Oncology/Hematology Routine Consulting Provider: [facility] ([facility]) Reason for Consult: Pt of Dr. Perez, actively getting chemo, here with colitis EMERGENT Consult: No MD Notified: Yes Date Notified: 05/23/22 Time Notified: 09:59 Method of Notification: Text 05/24/22 07:39 Consult: Infectious Disease Routine Consulting Provider: Reed Rodarte Reason for Consult: infection EMERGENT Consult: No MD Notified: Yes Date Notified: 05/24/22 Time Notified: 08:46 Method of Notification: Answering Service 05/25/22 00:17 Consult: Human Resources Compensation Analyst / Pulmonary Medicine Routine Consulting Provider: [facility] Reason for Consult: Concern sepsis, lactic acidosis, worsening, intraabdominal process EMERGENT Consult: No MD Notified: Yes Date Notified: 05/24/22 Time Notified: 22:40 Method of Notification: Text Reason For Visit: Abdominal infxn Diagnosis Discharge Diagnosis (1) Colitis: Status: Acute Code(s): K52.9 - Noninfective gastroenteritis and colitis, unspecified Plan #Acute colitis and intra-abdominal abscess #Poor nutritional status #High anion gap metabolic acidosis?resolved #Acute on chronic anemia #Breast cancer undergoing chemotherapy #Right lower extremity wound #sinus tachycardia Medications at Discharge Home Medications cholecalciferol (vitamin D3) 25 mcg (1,000 unit) capsule 2,000 unit PO DAILY Check with primary doctor 01/25/22 duloxetine 20 mg capsule,delayed release 20 mg PO DAILY Check with primary doctor 01/25/22 lidocaine-prilocaine 2.5 %-2.5 % topical cream 1 applic topical ONCE PRN port access 30 days #30 grams 02/23/22 prochlorperazine maleate 10 mg tablet 10 mg PO Q6H PRN nausea and vomiting #30 tabs 02/23/22 Magnesium Malate 750 mg PO QHS Check with primary doctor 02/28/22 ondansetron 8 mg disintegrating tablet 8 mg PO Q8H PRN nausea and vomiting #30 tabs 04/18/22 potassium chloride 20 mEq/15 mL oral liquid 20 meq (15 mL) PO TID #450 mL 05/02/22 MAGIC MOUTH WASH (BMX) 180 mL suspension 15 ml PO .Q6HR Check with primary doctor 05/22/22 scopolamine base 1 mg over 3 days transdermal patch 1 patch transdermal Q72H Check with primary doctor 05/22/22 acetaminophen 650 mg/20.3 mL oral solution 1,000 mg (31.2308 mL) PO Q8H PRN Pain 1-10 Or Fever #0 mL 05/28/22 food supplemt, lactose-reduced 0.08 gram-1.5 kcal/mL oral liquid (Ensure Plus High Protein) 120 ml PO 4X/DAY #0 mL 05/28/22 loperamide 2 mg capsule 4 mg PO Q4H PRN PRN Diarrhea #30 caps 05/28/22 menthol 0.44 %-zinc oxide 20.6 % topical ointment (Calmoseptine) 1 applic topical TID #0 grams 05/28/22 meropenem 1 gram intravenous solution 1 g IV Q8 #0 ea 05/28/22 midodrine 5 mg tablet 10 mg PO TIDCM #0 tabs 05/28/22 pantoprazole 40 mg tablet,delayed release 40 mg PO DAILY #0 tabs 05/28/22 sennosides 8.6 mg-docusate sodium 50 mg tablet (Stool Softener-Stimulant Laxative) 2 tab PO BID PRN PRN Constipation #0 tabs 05/28/22 sodium chloride 0.9 % (flush) (Normal Saline Flush 0.9 % injection syringe) 10 - 40 ml IV UD PRN Port access or dressing change #0 mL 05/28/22 Hospital Course Operations - (Abdominal collection aspiration) Procedures - (MCRP, echo, ct of chest and abd/pelvis, abd ultrasound) Summary of Care Provided Hospital Course: AMINA ESPOSITO, is a 41 F with history of breast cancer with metastasis to the lung currently on chemotherapy, nonhealing right lower extremity wound, muscular dystrophy who presented to [facility] 05/22/2022 with worsening abdominal pain.? She initially had some lower abdominal pain on Sunday night that slowly improved but the day of presentation it drastically worsened. CT of the abdomen demonstrated 3 cm phlegmon lateral to the descending colon with invasion of the anterior abdominal wall musculature. Surgery was contacted in the ED and considered a drain the following day. Given anaphylactic penicillin allergy she was initially given clindamycin and gentamicin and fluids as she appeared dehydrated. She was admitted and continued on antibiotics and the 3 cm collection was aspirated by surgery. There was plan for possible IR drain versus aspiration but repeat CT did not show any identifiable collection. ID was on consult and changed her antibiotics to Merrem and she did well. She did have a CT with contrast and afterwards had problems with tachycardia and blood pressure remained borderline, though she reports this is her baseline, and it is thought that this may have been due to to the contrast. Prealbumin was checked and was 3.1 pointing to significant malnutrition. Spoke with surgery and ultimately Dobbhoff placed and patient on liquids with nutrition consult and tube feeds. There was a question on CT of dilation of common bile duct, MRCP performed and no stone seen. Was monitored for refeeding syndrome with every 24 hour labs and they were replaced as needed. Did also have right lower extremity wound which was wrapped and monitored by infectious disease. She continued to improve and was excepted to inpatient med rehab. On day of discharge she reported feeling little swollen in her legs but overall better and abdominal pain was still there but also significantly better. Breathing better than previously, had episode of nausea with her medication and boost taken at the same time earlier but prior to that had not been having difficulty. No other complaints. She does intermittently have sinus tachycardia, possibly in part due to deconditioning plus or minus pain. Nontoxic-appearing and overall significantly improved. Stable for discharge to inpatient rehab at this time. Was placed on midodrine during her admission due to soft BP, per patient she stays with low systolic. When she is more mobile and active may be able to wean off or DC this medication. On day of discharge discussed with surgery, okay with DC and no additional recommendations. Discussed with ID on-call and initially thought to DC on Augmentin however given her penicillin allergy options limited, discussed again with ID on-call and ultimately will discharge on 5 more days of meropenem every 8 hours. Instructions as followed: You are on an antibiotic, meropenem, you will need 1 g every 8 hours for another 5 days through your PICC line ? Continue routine PICC line care ?You will be discharged with a Dobbhoff in place, nutrition has recommended the followin.? Continue full liquid diet per Dr. Juares 2.? We will continue Pivot 1.5 via NGT to 20 mL/h with 60 mL H2O flush every 4 hours to provide 720 ginny, 46 g of protein, and 720 mL of fluid per day which meets greater than 50% of estimated calorie/protein needs 3.? 120 mL Ensure Plus high-protein or Premier protein 4 times a day with med Pass 4.? Daily weights 5.? Close monitoring of electrolytes?concerns for refeeding ? Your electrolytes have been replaced as needed, would recommend a repeat CMP to monitor liver function and will need potassium, magnesium, phosphorus checked every 24 hours and replace as needed ?Would recommend nutrition continue to follow her while at inpatient rehab ? You will need to follow with Dr. Osorio upon discharge ?You will also need to follow with your cancer doctor, Dr. Perez, upon discharge ?Given your low hemoglobin it was recommended during this admission that you have a colonoscopy as an outpatient to evaluate further ?You will need to continue to have local wound care for right lower extremity wound ? You were started on midodrine for low blood pressure during this hospitalization, as her blood pressure improves this may be decreased or discontinued on an outpatient basis ?You will be discharged on Protonix ? You will continue your potassium 20 mill equivalents 3 times a day which was a home medication, as your potassium improves this may need to be decreased or discontinued -Please call your primary care provider's office upon discharge to schedule a hospital follow up within 1 week. -For any concerning signs or symptoms please call 911 or proceed to the nearest emergency department Physical Exam Const alert Constitutional Narrative: Oriented HEENT normocephalic Eyes Eyes Narrative: EOM grossly intact, anicteric Neck supple Resp normal respiratory effort and clear to auscultation bilaterally Cardio regular rate and regular rhythm GI GI Narrative: Soft, nondistended, mild tenderness roughly the same and right lower quadrant Extremity Extremity Narrative: Minimal lower extremity edema appreciated, right lower extremity wrapped Neuro Neuro Narrative: No overt focal deficits appreciated Psych Psych Narrative: Cooperative Medical Records Data Medical Nutrition Assessment Dietitian: Malnutrition Criteria Met Start: 05/23/22 13:14 Freq: Status: Active Protocol: Document 05/27/22 11:48 AG (Rec: 05/27/22 11:48 AG [id number]) Nutrition Malnutrition Evidence of Malnutrition Exists Yes Malnutrition (severe): Chronic Evidenced By Suboptimal Energy Intake ( Severe),Weight Loss (Severe) Intake Problem Increased Nutrient Needs (specify) Etiology calories/protein related to increased demand for healing and breast cancer Signs/Symptoms as evidenced by right leg stasis ulcer and pt on chemotherapy Status Active Problem Clinical Problem Chronic Disease or Condition Related Malnutrition Etiology related to lung cancer Signs/Symptoms as evidenced by PO intakes >75 % of estimated energy needs for >1 month and 26.3lbs (24.6 %) weight loss in 3 months Status Active Problem Recommendation Dietitian Recommendations/Changes 1) Continue full liquid diet per Dr. Osorio. 2) Will continue Pivot 1.5 via NGT to 20mL/hour w/ 60mL H2O flush every 4 hours to provide 720 calories, 45 g protein, and 720mL fluid/day which meets >50% of estimated calorie/protein needs. 3) 120mL Ensure Plus High Protein or Premier Protein ( provided from home) 4x/day w/ medpass (vanilla). 4) Daily wts. 5) Close monitoring of electrolytes- concerns for refeeding. Weight / BMI Weight Weight: 57.4 kg Body Mass Index (BMI) 19.3 ABG / Lab / Microbiology Data Result Diagrams: 05/28/22 04:55 05/28/22 04:55 Laboratory: Laboratory Results - last 24 hr 05/28/22 04:55: Sodium 138, Potassium 4.7, Chloride 111 H, Carbon Dioxide 23.0, Anion Gap 4 L, BUN 13, Creatinine 0.31 L, Estim Creat Clear Calc 208.34, Est GFR (MDRD) Af Amer 303, Est GFR (MDRD) Non-Af 251, BUN/Creatinine Ratio 42.3 H, Glucose 129 H, Calcium 7.4 L, Magnesium 1.3 L, Total Bilirubin 0.60, AST 88 H, ALT 63 H, Alkaline Phosphatase 303 H, Total Protein 3.8 L, Albumin 1.4 L, Globulin 2.4, Albumin/Globulin Ratio 0.6 L 05/28/22 04:55: WBC 26.2 H, RBC 3.43 L, Hgb 9.7 L, Hct 28.6 L, MCV 83.4, MCH 28.3, MCHC 33.9, RDW Std Deviation 53.4 H, RDW Coeff of Seema 17.9 H, Plt Count 241, MPV 10.1, Immature Gran % (Auto) 2.500 H, Neut % (Auto) 79.4 H, Lymph % (Auto) 10.4 L, [place] % (Auto) 7.4, Eos % (Auto) 0.0, Baso % (Auto) 0.3, Absolute Neuts (auto) 20.8 H, Absolute Lymphs (auto) 2.72, Nucleated RBC % 0.1, Differential Comment SCANNED, Diff Path Review September05/28/22 04:55: Phosphorus 2.2 L Microbiology: Microbiology 05/22/22 20:55 Blood Culture (Wb) - Anticubital Left Blood Culture - Final No growth in 5 days. 05/22/22 20:40 Blood Culture (Wb) - Anticubital Left Blood Culture - Final No growth in 5 days. 05/25/22 18:00 Stool C. difficile DNA Amplification - Final 05/23/22 17:40 Aspirate - Abdominal Gram Stain - Final 05/23/22 17:40 Aspirate - Abdominal Wound Culture - Final No growth aerobically. 05/23/22 17:40 Aspirate - Abdominal Anaerobic Culture - Preliminary No growth in 48 hours. 05/22/22 14:20 Urine, Clean Catch Urine Culture - Final Mixed Gram Positive Organisms 05/22/22 18:15 Nasal Secretion SARS-CoV-2 & FLU Antigen (Rapid) - Final D/C Instructions Discharge Diet: - (1. Continue full liquid diet per Dr. Bonilla 2. We will continue Pivot 1.5 via NGT to 20 mL/h with 60 mL H2O flush every 4 hours to provide 720 ginny, 46 g of protein, and 720 mL of fluid per day which meets greater than 50% of estimated calorie/protein needs 3. 120 mL Ensure Plus high-protein or Pr) Meaningful Use Info Meaningful Use Diagnoses (Choose all that apply): None applicable Discharge Plan Admission Admit Date/Time: 05/22/22 17:24 Primary Reason for Your Visit: Abdominal pain Attending Provider: Ernestina Rene Primary Care Provider: Jam Verde Consulting Providers: Samantha Osorio ; Reed Rodarte ; Tapan Bryant ; John Griffin ; Abebe Paiz ; Devin Zabala ; Mayra Morley DIRECTOR OF RECRUITING ; Renzo Hayden ; Carlyle Sparks ; Theodore Perez ; Reed Mcgrath ; Kiko Kiran ; Franki Laguerre ; Klaus Cartagena ; Chelsea Hernandez DIRECTOR OF RECRUITING Instructions Patient Instructions: ED Fall Prevention Additional Instructions / Restrictions: DISCHARGE INSTRUCTIONS PLEASE READ ?You are on an antibiotic, meropenem, you will need 1 g every 8 hours for another 5 days through your PICC line ? Continue routine PICC line care ?You will be discharged with a Dobbhoff in place, nutrition has recommended the followin. Continue full liquid diet per Dr. Juares 2. We will continue Pivot 1.5 via NGT to 20 mL/h with 60 mL H2O flush every 4 hours to provide 720 ginny, 46 g of protein, and 720 mL of fluid per day which meets greater than 50% of estimated calorie/protein needs 3. 120 mL Ensure Plus high-protein or Premier protein 4 times a day with med Pass 4. Daily weights 5. Close monitoring of electrolytes?concerns for refeeding ? Your electrolytes have been replaced as needed, would recommend a repeat CMP to monitor liver function and will need potassium, magnesium, phosphorus checked every 24 hours and replace as needed ?Would recommend nutrition continue to follow her while at inpatient rehab ? You will need to follow with Dr. Osorio upon discharge ?You will also need to follow with your cancer doctor, Dr. Perez, upon discharge ?Given your low hemoglobin it was recommended during this admission that you have a colonoscopy as an outpatient to evaluate further ?You will need to continue to have local wound care for right lower extremity wound ? You were started on midodrine for low blood pressure during this hospitalization, as her blood pressure improves this may be decreased or discontinued on an outpatient basis ?You will be discharged on Protonix ? You will continue your potassium 20 mill equivalents 3 times a day which was a home medication, as your potassium improves this may need to be decreased or discontinued -Please call your primary care provider's office upon discharge to schedule a hospital follow up within 1 week. -For any concerning signs or symptoms please call 911 or proceed to the nearest emergency department Discharge Orders/Prescriptions Prescriptions: New loperamide 2 mg Capsule 4 mg PO Q4H PRN PRN (Reason: Diarrhea) Qty: 30 0RF Ensure Plus High Protein 0.08 gram-1.5 kcal/mL Liquid 120 ml PO 4X/DAY Qty: 0 0RF midodrine 5 mg Tablet 10 mg PO TIDCM Qty: 0 0RF menthol-zinc oxide [Calmoseptine] 0.44-20.6 % Ointment 1 applic topical TID Qty: 0 0RF Protocol: *Topical Application Instructions APPLICATION INSTRUCTIONS: apply to coccyx pantoprazole 40 mg Tablet,Delayed Release (Dr/Ec) 40 mg PO DAILY Qty: 0 0RF sennosides-docusate sodium [Stool Softener-Stimulant Laxat] 8.6-50 mg Tablet 2 tab PO BID PRN PRN (Reason: Constipation) Qty: 0 0RF sodium chloride 0.9 % (flush) [Normal Saline Flush] Syringe 10 - 40 ml IV UD PRN (Reason: Port access or dressing change) Qty: 0 0RF acetaminophen 650 mg/20.3 mL Solution 1,000 mg PO Q8H PRN (Reason: Pain 1-10 Or Fever) Qty: 0 0RF meropenem 1 gram Recon Soln 1 g IV Q8 Qty: 0 0RF Continued cholecalciferol (vitamin D3) 1,000 unit capsule 25 mcg (1,000 unit) capsule 2,000 unit PO DAILY duloxetine 20 mg capsule,delayed release(DR/EC) 20 mg PO DAILY lidocaine-prilocaine 2.5-2.5 % cream 1 applic topical ONCE PRN (Reason: port access) 30 Days Qty: 30 2RF prochlorperazine maleate 10 mg tablet 10 mg PO Q6H PRN (Reason: nausea and vomiting) Qty: 30 2RF Magnesium Malate 750 mg PO QHS ondansetron 8 mg tablet,disintegrating 8 mg PO Q8H PRN (Reason: nausea and vomiting) Qty: 30 2RF potassium chloride 20 mEq/15 mL liquid 20 meq PO TID Qty: 450 0RF scopolamine base 1 mg over 3 days patch 3 day 1 patch transdermal Q72H MAGIC MOUTH WASH (BMX) 180 mL suspension 15 ml PO .Q6HR Rx Instructions: diphenhydramine 12.5 mg/5 mL oral liquid 60 mL; aluminum-mag hydroxide-simethicone 400 mg-400 mg-40 mg/5 mL oral susp 60 mL; Lidocaine Viscous 2 % mucosal solution 60 mL; Per 180 mL Discontinued dexamethasone 4 mg tablet 8 mg PO .COMPLEX Rx Instructions: 8 mg orally; twice daily ONLY the day before, day of and the day after chemotherapy levofloxacin 500 mg tablet 500 mg PO DAILY Referrals / Follow Up: Jam Verde MD [Primary Care Provider] - Theodore Perez MD [Med Staff - Active Staff] - See Referral Note (Follow-up upon discharge) Samantha Osorio MD [Med Staff - Active Staff] - None Disposition Disposition (needs filled in before D/C Order can be placed): Inpatient Rehab Unit/Facility Charges/Coding Visit Charges Inpatient E&M: 98506 Disch Hosp >30min
[2022-05-30 15:18] LABS: Pathologist Review Reviewed
[2022-05-30 15:23] LABS: Pathologist Review Reviewed
[2022-05-31 09:29] LABS: Pathologist Review Reviewed
== END 2022-05-28 17:00 | DRG 371 ==
LOC: ED 13:01 → PCU 18:41 → ICU 05-25 00:33 → MS2 05-25 21:34
PROVIDERS: Family Medicine; Physician Assistant; Surgery; Admitting Provider Internal Medicine; Emergency Provider Emergency Medicine; PCP Family Medicine; Visit Provider Internal Medicine
DX: K65.1 Peritoneal abscess (principal); E43 Unspecified severe protein-calorie malnutrition; J90 Pleural effusion, not elsewhere classified; E87.20 Acidosis, unspecified; C78.00 Secondary malignant neoplasm of unspecified lung; L97.912 Non-pressure chronic ulcer of unspecified part of right lower leg with fat layer exposed; Z68.1 Body mass index [BMI] 19.9 or less, adult; G71.00 Muscular dystrophy, unspecified; K83.8 Other specified diseases of biliary tract; I95.89 Other hypotension; C50.912 Malignant neoplasm of unspecified site of left female breast; D63.0 Anemia in neoplastic disease; E87.8 Other disorders of electrolyte and fluid balance, not elsewhere classified; E83.42 Hypomagnesemia; E86.0 Dehydration; E87.6 Hypokalemia; K52.9 Noninfective gastroenteritis and colitis, unspecified; D72.829 Elevated white blood cell count, unspecified; T50.8X5A Adverse effect of diagnostic agents, initial encounter; R00.0 Tachycardia, unspecified; Z17.0 Estrogen receptor positive status [ER+]; Z79.899 Other long term (current) drug therapy
CPT/HCPCS: 36415; 36591; 71045; 71275; 74018; 74177; 74181; 76705; 80048; 80053; 81001; 82803; 83605; 83735; 84100; 84134; 85014; 85018; 85025; 85027; 85610; 86850; 86900; 86901; 86920; 86922; 87040; 87070; 87075; 87086; 87088; 87205; 87426; 87428; 87493; 93005; 93306; 94762; 97110; 97162; 97166; 97530; 97802; 97803; 99251; 99285; J2185; J7030; J7040; J7050; J7120; P9016; P9040; Q9967; A4216; G0463; J0610; J2405; J3490

== ENCOUNTER 2022-05-28 17:21 | Inpatient (IN) | payer OTHER, SELFPAY ==
[2022-05-28 17:44] VITALS: BP 134/95; PULSE 123; RESP 18; TEMP 36.6; O2SAT 97; BMI 29.5
[2022-05-28 18:25] VITALS: BP 134/95; PULSE 118; RESP 20; TEMP 36.6; O2SAT 97
[2022-05-28] MEDS: Ondansetron ODT 4 MG Tablet 8 MG PO (19:02)
[2022-05-28 20:25] VITALS: O2SAT 97
--- NOTE | 2022-05-28 20:37 | HP.PCM_ITS ---
HPI - General General Date of Admission: 05/28/22 Date of Service: 05/28/22 Chief Complaint: Here for 3 hours daily rehabilitation. HPI Narrative 05/22/2022 AMINA ESPOSITO, is a 41 Female who presents to [facility] Emergency Department with abdominal pain. 05/22/2022 EKG sinus tachycardia with short AL, possible inferior infarct, age undetermined. Right lower quadrant abdominal pain, undergoing chemotherapy for metastatic b reast cancer. Nausea, right lower quadrant pain, loose stool. Thirsty, lightheaded, mild dysuria, decreased urine output. Fever, decreased appetite for several days. 2 weeks post chemotherapy, Heart rate 155. Normal saline 500cc IV bolus. WBC 47.7 with left shift, sodium 130, K 2.2. Clindamycin, Gentamicin IV given. CT abdomen/pelvis 3cm phlegmon lateral descending colon. 05/22/2022 Echo EF 55%. Mid to distal anterior septum and apical hypokinesis. 05/22/2022 Admit to Hospital. Clindamycin, Gentamicin for colitis, phlegmon. 05/23/2022 Feels better. Transfuse 2 units PRBC for hemoglobin 5.2. 05/23/2022 Dr. Osorio performed aspiration of right abdominal abscess, 10cc pus/blood removed. 05/24/2022 CTA chest negative pulmonary embolism. 05/24/2022 Feeling better, cultures pending. Hemoglobin 11.5. Follow up oncology as outpatient for metastatic breast cancer. 05/24/2022 Dr. Rodarte recommended changing antibiotics to Meropenem. 05/25/2022 CT abdomen/pelvis shows inflammation but no abscess. 05/25/2022 Dr. Rodarte aspiration culture negative to date. WBC elevated, Lactate 4.4, CT shoed ductal dilatation, MRCP recommended. 05/26/2022 MRCP negative for stone, WBC lower, continue Meropenem. Abdominal pain fair. Dobbhoff tube placed for TF. Right lower extremity wound wrapped. 05/27/2022 Dyspnea on exertion. Swelling in hands, legs. WBC lower, continue Meropenem, cultures negative to date. Tolerating TF. 05/28/2022 Swelling in legs, abdominal pain unchanged. Continue antbiotics. Advance TF as tolerated. 05/28/2022 Admit to [facility] with debility, here for 3 hours daily rehabilitation, strengthening, prior to discharge home with family. [facility] Medical History Acid reflux Alcohol use Anemia Anxiety Arthritis Arthrogryposis Braces as ambulation aid Breast cancer Breast cancer, left breast Cancer CINV (chemotherapy-induced nausea and vomiting) CPAP (continuous positive airway pressure) dependence Dehydration Depression Diarrhea Diarrhea due to drug Elevated C-reactive protein (CRP) (12/26/21) Encounter for chemotherapy management Encounter for education Heartburn History of diverticulitis History of echocardiogram History of edema History of irregular heartbeat Hypokalemia Hypomagnesemia Leg sore Lung nodule, multiple Mucositis (ulcerative) due to antineoplastic therapy Mucositis (ulcerative) due to antineoplastic therapy Muscular dystrophy Nausea Non-smoker Oral candidiasis Port-A-Cath in place Sleep apnea Thrombocytosis Thrombocytosis Wears glasses Home Medications cholecalciferol (vitamin D3) 25 mcg (1,000 unit) capsule 2,000 unit PO DAILY Supplement 01/25/22 [History Last Taken Unknown] duloxetine 20 mg capsule,delayed release 20 mg PO DAILY Depression 01/25/22 [History Last Taken Unknown] lidocaine-prilocaine 2.5 %-2.5 % topical cream 1 applic topical ONCE PRN port access 30 days #30 grams 02/23/22 [Rx Last Taken Unknown] prochlorperazine maleate 10 mg tablet 10 mg PO Q6H PRN nausea and vomiting #30 tabs 02/23/22 [Rx Last Taken Unknown] Magnesium Malate 750 mg PO QHS Supplement 02/28/22 [History Last Taken Unknown] ondansetron 8 mg disintegrating tablet 8 mg PO Q8H PRN nausea and vomiting #30 tabs 04/18/22 [Rx Last Taken Unknown] MAGIC MOUTH WASH (BMX) 180 mL suspension 15 ml PO .Q6HR Mouth sores 05/22/22 [History Last Taken Unknown] scopolamine base 1 mg over 3 days transdermal patch 1 patch transdermal Q72H Nausea 05/22/22 [History Last Taken Unknown] acetaminophen 650 mg/20.3 mL oral solution 1,000 mg (31.2308 mL) PO Q8H PRN Pain 1-10 Or Fever #0 mL 05/28/22 [Rx Last Taken Unknown] food supplemt, lactose-reduced 0.08 gram-1.5 kcal/mL oral liquid (Ensure Plus High Protein) 120 ml PO 4X/DAY Supplement 05/28/22 [History Last Taken Unknown] loperamide 2 mg capsule 4 mg PO Q4H PRN PRN Diarrhea #30 caps 05/28/22 [Rx Last Taken Unknown] menthol 0.44 %-zinc oxide 20.6 % topical ointment (Calmoseptine) 1 applic topical TID Skin protection 05/28/22 [History Last Taken Unknown] meropenem 1 gram intravenous solution 1 g IV Q8 Antibiotic 05/28/22 [History Last Taken Unknown] midodrine 5 mg tablet 10 mg PO TIDCM BP 05/28/22 [History Last Taken Unknown] pantoprazole 40 mg tablet,delayed release 40 mg PO DAILY GERD 05/28/22 [History Last Taken Unknown] potassium chloride 20 mEq/15 mL oral liquid 20 meq PO TID Supplement 05/28/22 [History Last Taken Unknown] sennosides 8.6 mg-docusate sodium 50 mg tablet (Stool Softener-Stimulant Laxative) 2 tab PO BID PRN PRN Constipation #0 tabs 05/28/22 [Rx Last Taken Unknown] sodium chloride 0.9 % (flush) (Normal Saline Flush 0.9 % injection syringe) 10 - 40 ml IV UD PRN IV flush 05/28/22 [History Last Taken Unknown] Allergy/AdvReac Type Severity Reaction Status Date / Time kiwi Allergy Mild Anaphylaxis Verified 05/22/22 11:58 Penicillins Allergy Mild Anaphylaxis Verified 05/22/22 11:58 Gadolinium-MRI Contrast AdvReac Shortness Verified 05/25/22 17:06 Medium of breath [contrast dye] Family History Mother Diabetes Hypertension High cholesterol Thyroid disorder Uncle Cancer non-hodgkins lymphoma Grandfather Heart disease Grandmother Heart disease Brother Hypertension Unknown Breast cancer mother had 2 cousins with aggressive breast cancer Unknown Thyroid cancer maternal cousin Other Arthritis Depression Surgical History H/O release of tendon History of lymph node biopsy History of spinal fusion Social History household members: family current occupational status: employed current occupation: [employer] Smoking Status: Never smoker alcohol intake: current alcohol intake frequency: holidays/special occasions only details: occasional substance use type: does not use ROS Constitutional Constitutional: Denies chills, fever(s) or weight gain ENT HEENT: Denies headache(s), nasal congestion or nasal discharge Cardiovascular Cardiovascular: Reports edema; Denies chest pain or palpitations Respiratory/Chest Respiratory/Chest: Denies cough, excessive phlegm production or shortness of breath with exertion Gastrointestinal Gastrointestinal: Denies abdominal pain, nausea or vomiting Genitourinary Genitourinary: Denies dysuria Musculoskeletal Musculoskeletal: Denies joint pain or joint swelling Integumentary Integumentary: Denies rash or wounds Neurologic Neurologic: Denies focal weakness, numbness or tingling Psychiatric Psychiatric: Denies anxiety, auditory hallucinations, depression, homicidal ideation or suicidal ideation Vital Signs Vital Signs Vital Signs: 05/28/22 18:25 05/28/22 17:44 Temperature 97.9 F 97.9 F Temperature Source Temporal Oral Pulse Rate 118 H 123 H Respiratory Rate 20 H 18 Blood Pressure 134/95 H 134/95 H Blood Pressure Mean 108 108 Blood Pressure Source Monitor Monitor Blood Pressure Position Sitting Semi-Fowlers Blood Pressure Location Right Arm Right Arm Pulse Ox 97 97 Oxygen Delivery Method Room Air Room Air Weight Weight: 55.3 kg Body Mass Index (BMI) 29.5 Indicators for Scoring Admitted with or Primary Diagnosis of CVA/Stroke: No Hx of CVA/Stroke: No Modified Dmitry Score MRS Score at time of Evaluation: 3-Moderate disability Physical Exam Const alert General Appearance: cooperative HEENT normocephalic HEENT Narrative: Dobbhoff tube. Eyes PERRL and EOMs intact bilaterally Neck supple, no JVD and no carotid bruits Resp normal respiratory effort, normal air movement and clear to auscultation bilaterally Cardio regular rate and regular rhythm GI normal to inspection, nondistended, normoactive bowel sounds, non-tender and non-distended Extremity normal capillary refill General Extremity: Negative for edema Skin no rashes or lesions noted General Skin Exam: no breakdown Psych affect normal Appearance: appropriate Assessment & Plan Assessment/Plan (1) Debility: (2) Colitis: (3) Intra-abdominal abscess: (4) Ulcer of right lower extremity with fat layer exposed: (5) Muscular dystrophy: (6) Metastatic breast cancer: (7) Vitamin D deficiency: (8) Depression: (9) Allergic rhinitis: (10) Hypokalemia: (11) Acute on chronic anemia: PLAN: Plan 41 year old female with below past medical history significant for muscular dystrophy, metastatic breast cancer, hospitalized for colitis, intraabdominal abscess, complicated by anemia requiring transfusion, malnutrition requiring TF, admitted to with debility, here for 3 hours daily rehabilitation, strengthening, prior to discharge home with family. * Debility - PT/OT. * Pain - Tylenol 1000mg q8h prn. * Bowel - senna/colace 2 tablets bid prn, Dulcolax 10mg pr x 1 prn, MOM 30ml po x 1 prn. * Sore throat - BMX 15ml q6h. * Nutrition - Ensure Plus 120ml 4x/day, Pivot 1.5 20ml/hr via Dobbhoff. * Port access - Lidocaine/Prilocaine 5gm topical x 1 prn. * Diarrhea - Loperamide 4mg q4h prn. * Hypomagnesemia - Magnesium 750mg qhs. * Skin irritation - Calmoseptine topical tid. * Colitis/intrabdominal abscess - Meropenem 1gm iv q8h. * Orthostatic hypotension - Midodrine 10mg po tidcm. * Severe chronic nausea - Zofran ODT 8mg q6h prn, Compazine 10mg q6h prn, Scopolamine 1mg patch TD Q72H. * GERD - Pantoprazole 40mg daily. * Hypokalemia - KCL 20meq po tid. * Vitamin D deficiency - D3 50mcg daily.
[2022-05-28 21:00] VITALS: BP 115/80; PULSE 120; RESP 18; TEMP 37.6; O2SAT 96
[2022-05-28] MEDS: Scopolamine 1mg/72hr Patch 1 PATCH TD (21:33)
[2022-05-28] MEDS: Menthol/Lanolin/Calamine/Znox 113 GM Tube 1 APPLIC TOPICAL (21:36)
[2022-05-28] MEDS: Potassium Chloride Oral Soln 20 MEQ/15 ML UDC PO (21:38)
[2022-05-28] MEDS: Furosemide 40 MG/4 ML Vial IV (21:56)
[2022-05-28 22:45] LABS: Bedside Glucose 127 mg/dL (74-106)
[2022-05-29] MEDS: Menthol/Lanolin/Calamine/Znox 113 GM Tube 1 APPLIC TOPICAL ×3 (05:55→21:00)
[2022-05-29] MEDS: Potassium Chloride Oral Soln 20 MEQ/15 ML UDC PO ×3 (05:55→21:00)
[2022-05-29] MEDS: Ondansetron ODT 4 MG Tablet 8 MG PO ×2 (05:56→14:10)
[2022-05-29 06:41] LABS: Hematocrit 31.6 % (37-47); Hemoglobin 10.6 g/dL (12.0-15.0); Mean Corp Hgb Conc 33.5 g/dL (32-36); Mean Corpuscular Hgb 28.3 pg (27.0-32.0); Mean Corpuscular Volume 84.3 fL (81-99); Mean Platelet Vol. 10.1 fl (6.2-12.0); Platelet Count 309 K/mm3 (150-450); RBC Distribution Width CV 17.4 % (11.6-14.6); Red Blood Count 3.75 M/mm3 (4.2-5.4); White Blood Count 22.5 K/mm3 (4.4-11.0)
[2022-05-29 06:59] LABS: Anion Gap 5 (5-15); BUN 17 mg/dL (7-18); BUN/Creat Ratio 52.6 RATIO (10-20); Calcium,Total 7.9 mg/dL (8.5-10.1); Chloride 100 mmol/L (98-107); Creatinine, Serum 0.32 mg/dL (0.55-1.02); EST Glomerular Filtration Rate 236 mL/min (>60); Est Glom Filt Rate - Afr Amer 286 mL/min (>60); Estimated Creatinine Clearance 188.95 ml/min; Glucose 109 mg/dL (74-106); Magnesium 1.5 mg/dL (1.6-2.6); Phosphorus 2.4 mg/dL (2.5-4.9); Potassium 4.2 mmol/L (3.5-5.1); Sodium Level 134 mmol/L (136-145)
[2022-05-29 07:25] LABS: Bedside Glucose 112 mg/dL (74-106)
[2022-05-29 07:36] VITALS: BP 122/85; PULSE 115; RESP 16; TEMP 36.4; O2SAT 98
[2022-05-29 08:05] VITALS: O2SAT 96
[2022-05-29] MEDS: Pantoprazole Sodium 40 MG Tablet PO (09:01)
[2022-05-29] MEDS: Midodrine HCl 5 MG Tablet 10 MG PO ×3 (09:02→17:37)
[2022-05-29] MEDS: DULoxetine Hcl 20 MG Capsule PO (09:02)
[2022-05-29] MEDS: Cholecalciferol (VIT D3) 25 MCG TABLET (1,000 UNITS) 50 MCG PO (09:02)
[2022-05-29] MEDS: 0.9% Saline Lock 10 ML Syringe IV ×2 (09:51→20:46)
[2022-05-29 12:21] LABS: Bedside Glucose 126 mg/dL (74-106)
[2022-05-29] MEDS: Pivot 1.5 Cal 1,000 ML BOTTLE 1 ML GT (14:18)
[2022-05-29 16:06] LABS: Bedside Glucose 118 mg/dL (74-106)
[2022-05-29] MEDS: Acetaminophen 650 MG/20 ML UDC 1000 MG PO (17:36)
--- NOTE | 2022-05-29 19:22 | NURSING ---
patient very cooperative with friends and family present for visiting. Patient did not want chadwick wrap around RLE wound around foot. Chadwick wrap just applied to leg per patient request. Dressing done per orders.
[2022-05-29 19:55] VITALS: BP 114/82; PULSE 90; RESP 16; TEMP 36.8; O2SAT 95
[2022-05-29 21:31] LABS: Bedside Glucose 103 mg/dL (74-106)
[2022-05-29 22:00] VITALS: PULSE 106; RESP 16; O2SAT 96
[2022-05-30] MEDS: Acetaminophen 650 MG/20 ML UDC 1000 MG PO ×2 (04:57→14:59)
[2022-05-30] MEDS: Ondansetron ODT 4 MG Tablet 8 MG PO ×2 (05:11→13:16)
[2022-05-30] MEDS: Menthol/Lanolin/Calamine/Znox 113 GM Tube 1 APPLIC TOPICAL ×3 (05:16→22:19)
[2022-05-30] MEDS: Potassium Chloride Oral Soln 20 MEQ/15 ML UDC PO ×3 (06:36→22:19)
[2022-05-30 06:40] LABS: Bedside Glucose 151 mg/dL (74-106)
[2022-05-30 07:21] VITALS: BP 116/69; PULSE 97; RESP 17; TEMP 36.3; O2SAT 99
[2022-05-30] MEDS: Cholecalciferol (VIT D3) 25 MCG TABLET (1,000 UNITS) 50 MCG PO (08:22)
[2022-05-30] MEDS: Midodrine HCl 5 MG Tablet 10 MG PO ×3 (08:22→16:55)
[2022-05-30] MEDS: DULoxetine Hcl 20 MG Capsule PO (08:22)
[2022-05-30] MEDS: Pantoprazole Sodium 40 MG Tablet PO (08:22)
--- NOTE | 2022-05-30 10:52 | PN_ITS ---
Subjective Subjective Afebrile VSS HR's are in the 90's and low 100's. BP is within goal. Maintaining appropriate oxygen saturation on RA Oral intake is 1381 yesterday. The blood sugar record was reviewed. Blood sugars have been well controlled however the blood sugar today prior to lunch is only 70.....prior to this there has been no hypoglycemia. Discussed with nursing - no problems that need addressed Reviewed the PT/OT/ST notes Medication list reviewed. All lab from yesterday was personally reviewed. White blood cell count was 22.5, down from 86.8 on 05/24/2022. Hemoglobin is stable at 10.6. Platelet count is within normal limits. INR on 05/27/2022 was 1.5. Sodium was low at 134 and the potassium was 4.2. The BUN is 17 with a creatinine of 0.32 with an elevated BUN/creatinine ratio of 52.6. Calcium corrected for hypoalbuminemia is within normal limits at 9.98. Both phosphorus and magnesium are low at 2.4 and 1.5 respectively. LFTs have been elevated but, they were not checked yesterday. All hospital records were personally reviewed. PMH is significant for MD, breast CA with lung mets, GERD, Anxiety/depression, diverticulosis and a non- healing wound of the RLE that started in March as a pimple. She has been in the wound care center and has been treated with mechanical debridement and PRISM dressing. She was admitted to [facility] on 05/22/22 for a 3cm phlegmon lateral to the descending colon with invasion of the anterior abdominal wall musculature. She was seen in consultation by Dr. Osorio and was taken to surgery on 05/23/2022 for an ultrasound-guided needle aspiration. Both aerobic and anaerobic cultures were negative. Blood cultures x2 were negative. She has been followed by infectious disease and currently is on meropenem. Culture of the ulceration of the right lower extremity done early in April was positive for pansensitive Klebsiella pneumonia. She was on dexamethasone at the time of admission to the hospital. She received 2 units of packed red blood cells while in the hospital. Echocardiogram in the hospital showed a left ventricular ejection fraction of 55% with mid to distal anterior septum and apical hypokinesis. There was a small fibrinous anterior pericardial effusion. MRCP was done because of a dilated common bile duct on CT scan and the MRCP was positive for a mildly dilated common duct with no evidence of choledocholithiasis. At some point in the hospital she ended up on Midodrine? Pt denies taking this prior to admission to the hospital. Has never had a tilt test. It appears in the DC summary but, it was not on the H&Pat admission to the hospital. She denies lightheadedness with going from lying down to sitting up. I spoke with the pharmacist who tells me that it was started on 05/26 at night by the hospitalist but, it was not documented. She has not walked since the wound on her leg started because she walks with braces on her legs and with the wound on the medial R calf we can not apply the brace. Objective Data Objective Data Vital Signs: Vital Signs Temp Pulse Resp BP Pulse Ox O2 Del Method 97.3 F L 97 17 116/69 99 Room Air 05/30/22 07:21 05/30/22 07:21 05/30/22 07:21 05/30/22 07:21 05/30/22 07:21 05/30/22 09:41 Oxygen Delivery Method Room Air Weight: 117 lb Body Mass Index (BMI) 29.5 Intake & Output: Intake and Output for Last 24 Hours 05/28/22 05/29/22 05/30/22 23:59 23:59 23:59 Intake Total 887 / 887 1381 / 1481 520 / 520 Output Total 800 / 2700 5250 / 5250 1250 / 1250 Balance 87 / -1813 -3869 / -3769 -730 / -730 Medical Nutrition Assessment Dietitian: Malnutrition Criteria Met Start: 05/29/22 08:26 Freq: Status: Active Protocol: Document 05/29/22 16:46 RMA (Rec: 05/29/22 16:46 RMA [id number]) Nutrition Malnutrition Evidence of Malnutrition Exists Yes Malnutrition (severe): Chronic Evidenced By Suboptimal Energy Intake ( Severe),Weight Loss (Severe) Clinical Problem Chronic Disease or Condition Related Malnutrition Etiology Severe protein-calorie malnutrition in the context of chronic disease related to inadequate oral intake Signs/Symptoms as evidenced by ~11% wt loss x past 6 months and oral intake meeting less than 50% estimated nutrition needs Status Active Problem Recommendation Dietitian Recommendations/Changes Will continue Pivot 1.5 via NGT at 20mL/hour w/ 60mL H2O flush every 4 hours to provide 720 calories, 45 g protein, and 720mL fluid/day. Reassess need to increase TF support if PO inadequate at meals to supplement balance of ginny/pro. Cont full liquid diet as tolerated with 120ml ensure plus high pro 4 x/day w/ medpass or premier protein drinks from home. Advance diet as medically able to Regular as tolerated. Weight 3 times per week-- discussed with JOEY Rivera. Adjust TF support as needed to complement oral intake and support weight status. Lab / Micro Data Result Diagrams: 05/31/22 06:05 05/31/22 06:05 Labs: Laboratory Results - last 24 hr 05/29/22 11:58: POC Glucose 126 H 05/29/22 15:37: POC Glucose 118 H 05/29/22 21:09: POC Glucose 103 05/30/22 05:57: POC Glucose 151 H Physical Exam Const alert, oriented x3 and no apparent distress Constitutional Narrative: She is sitting in the recliner at the bedside with her legs elevated. She is pleasant and appropriate. She does not appear to be in pain. General Appearance: cooperative HEENT normocephalic and head/scalp atraumatic HEENT Narrative: MM are moist. No thrush Eyes PERRL and EOMs intact bilaterally Neck supple Resp Resp Narrative: She has a few coarse crackles in the left base and diminished BS's on the R side. No wheezing. No conversational dyspnea. Effort and Inspection: Negative for tachypneic, labored or uses accessory muscles Cardio no murmurs, no rub and no gallops Cardio Narrative: The rhythm is regular however she is tachycardic at 100 BPM. No ectopy. GI normal to inspection, nondistended, normoactive bowel sounds and non-tender GI Narrative: There is pitting edema in both flanks. Extremity no calf tenderness Extremity Narrative: DP pulses are palpable BL but, diminished....possibly related to edema of LE's. Could not feel the PT pulse and the popliteals are decreased. Has never had an arterial study. Cap refill is slow to come back following elevation of the RLE. No red swollen joints. has a small area of ecchymosis on the L LE just distal to the knee. General Extremity: edema Skin Skin Narrative: The wound on the medial R calf is large. There is a black thick dry eschar at the distal pole of the wound. The mid portion of the wound is granulating and superficial now. The proximal pole of the wound is 95% slough and the depth is 3-4 mm. The wound is much larger now than it was on 05/10/22 when she was last seen in the wound care center. There is no odor to the wound and no purulent DC at this time. Psych thought process normal, cooperative and affect normal Psych Narrative: She suffers from anxiety and depression but, she has a good attitude and she is talkative and making good eye contact. Appearance: appropriate Attitude: No agitated Activity / Motor Behavior: Negative for restless Mood & Affect: Negative for flat affect Thought Content: No suicidality, No homicidality and No hallucination(s) Assessment & Plan Assessment/Plan (1) Debility: (2) Severe malnutrition: (3) Colitis: (4) Intra-abdominal abscess: (5) Hypomagnesemia: (6) Hypokalemia: (7) Hyponatremia: (8) Ulcer of right lower extremity with fat layer exposed: (9) Sinus tachycardia: (10) Acute on chronic anemia: (11) Nausea: (12) Edema due to hypoalbuminemia: (13) Muscular dystrophy: (14) Depression: (15) Metastatic breast cancer: (16) Hyperglycemia: PLAN: Plan 1. Continue therapy. Her goal is to be able to manipulate a WC prior to DC. Will not be able to ambulate until the wound on the RLE is healed. Will work on strengthening exercise for the Upper and LE's while seated in the WC. Need to maintain /improve strength in the legs so when the wound is healed she will be able to walk. 2. Repeat a BMP, mag and phos in the AM......I am unable to determine whether the hypomagnesemia or hypophosphatemia was treated recently when they were both low. 3. Continue Adrian and start vitamin C, vitamin E and zinc to promote wound healing. I suspect the pitting edema of the legs is impairing wound healing. Will gently diurese with ALB and lasix.......start tonight. She had protein in her urine on 05/19/22 but, I do not know if this is chronic. 4. Change the dressing to Santyl twice a day. May need to score/debride the eschar. Will order 4% Lidocaine to be applied topically to the wound prior to debridement/scoring. May need to use 2 different products Santyl for the distal and proximal wounds and hydrogel to keep the mid portion of the wound moist to promote healing. 5. Television Specialist will continue to follow closely for malnutrition. 6. get arterial studies on BL LE's. Continue to elevate the legs when sitting. Charges/Coding Visit Charges Inpatient E&M: 65265 Subs Hosp L3
[2022-05-30 11:45] LABS: Bedside Glucose 70 mg/dL (74-106)
--- NOTE | 2022-05-30 16:05 | ART_ITS ---
Reason For Study: Non healing wound Procedure A bilateral lower extremity continuous wave Doppler with analog waveform analysis,segmental pressures,and ankle brachial indexes without exercise. Left Segmental Pressures Left brachial= 120mmHg. Left posterior tibial artery = 131mmHg. Left dorsalis pedis artery = 122mmHg. The left dorsalis pedis waveforms are triphasic. The left posterior tibial artery waveforms are triphasic. Right Segmental Pressures Right posterior tibial artery = 142mmHg. Right dorsalis pedis artery = 134mmHg. The right dorsalis pedis waveforms are triphasic. The right posterior tibial artery waveforms are triphasic. Indices The right ankle brachial index by the dorsalis pedis is 1.12. The right ankle brachial index by the posterior tibial artery is 1.18. The left ankle brachial index by the dorsalis pedis is 1.02. The left ankle brachial index by the posterior tibial artery is 1.09. VL/Lower Ext Art Exam w/o Exercis Interpretation Summary Normal right PT and DP ankle-brachial index of 1.18 and 1.12 respectively with normal triphasic Doppler waveforms Normal left PT and DP ankle-brachial indices of 1.09 and 1.02 respectively with normal triphasic Doppler waveforms Ordering Physician: Aanbela Disla Referring Physician: Jam Verde MD Performed By: Ken Ribera RVT
[2022-05-30 16:40] LABS: Bedside Glucose 127 mg/dL (74-106)
[2022-05-30] MEDS: Collagenase 30gm Tube 1 APPLIC TOPICAL (16:53)
[2022-05-30] MEDS: Loperamide 2 MG Capsule 4 MG PO (16:54)
[2022-05-30 16:57] VITALS: BP 104/70
[2022-05-30] MEDS: Ascorbic Acid 500 MG Tablet PO (18:22)
[2022-05-30 19:38] VITALS: BP 103/73; PULSE 105; RESP 14; TEMP 36.4; O2SAT 99
[2022-05-30] MEDS: Albumin Human 25% (100 mL) 25 GM/100 ML BAG IV (20:10)
[2022-05-30 21:11] LABS: Bedside Glucose 85 mg/dL (74-106)
[2022-05-30] MEDS: Furosemide 20 MG/2 ML VIAL IV (21:35)
[2022-05-30 22:00] VITALS: PULSE 105; RESP 16; O2SAT 96
[2022-05-31] MEDS: Acetaminophen 650 MG/20 ML UDC 1000 MG PO (04:35)
[2022-05-31] MEDS: Ondansetron ODT 4 MG Tablet 8 MG PO ×2 (04:35→14:26)
[2022-05-31] MEDS: 0.9% Saline Lock 10 ML Syringe IV ×2 (04:37→14:27)
[2022-05-31] MEDS: Potassium Chloride Oral Soln 20 MEQ/15 ML UDC PO ×3 (05:52→21:48)
[2022-05-31] MEDS: Menthol/Lanolin/Calamine/Znox 113 GM Tube 1 APPLIC TOPICAL ×2 (05:53→21:33)
[2022-05-31 06:24] LABS: Hematocrit 24.1 % (37-47); Hemoglobin 7.7 g/dL (12.0-15.0); Mean Corpuscular Hgb 28.5 pg (27.0-32.0); Mean Corpuscular Volume 89.3 fL (81-99); Mean Platelet Vol. 9.6 fl (6.2-12.0); Platelet Count 342 K/mm3 (150-450); RBC Distribution Width CV 16.8 % (11.6-14.6); RBC Distribution Width SD 53.5 fl (35.1-43.9); White Blood Count 20.2 K/mm3 (4.4-11.0)
[2022-05-31 06:51] LABS: Lipase 66 U/L (73-393)
[2022-05-31 07:03] LABS: Anion Gap 6 (5-15); BUN 16 mg/dL (7-18); BUN/Creat Ratio 39.4 RATIO (10-20); Calcium,Total 8.1 mg/dL (8.5-10.1); Chloride 99 mmol/L (98-107); Creatinine, Serum 0.41 mg/dL (0.55-1.02); EST Glomerular Filtration Rate 182 mL/min (>60); Est Glom Filt Rate - Afr Amer 220 mL/min (>60); Estimated Creatinine Clearance 148.23 ml/min; Glucose 149 mg/dL (74-106); Magnesium 0.9 mg/dL (1.6-2.6); Phosphorus 2.8 mg/dL (2.5-4.9); Potassium 3.7 mmol/L (3.5-5.1); Sodium Level 137 mmol/L (136-145)
[2022-05-31 07:05] LABS: Bedside Glucose 108 mg/dL (74-106)
[2022-05-31 07:57] VITALS: BP 106/69; PULSE 111; RESP 16; TEMP 36.4; O2SAT 100
[2022-05-31] MEDS: DULoxetine Hcl 20 MG Capsule PO (07:57)
[2022-05-31] MEDS: Midodrine HCl 5 MG Tablet 10 MG PO ×2 (07:57→12:12)
[2022-05-31] MEDS: Ascorbic Acid 500 MG Tablet PO ×2 (07:58→17:39)
[2022-05-31] MEDS: Cholecalciferol (VIT D3) 25 MCG TABLET (1,000 UNITS) 50 MCG PO (07:58)
[2022-05-31] MEDS: Vitamin E 400 UNITS Capsule PO (07:58)
[2022-05-31] MEDS: Pantoprazole Sodium 40 MG Tablet PO (07:58)
--- NOTE | 2022-05-31 11:17 | NURSING ---
pt refusing ensure, but she is drinking protein drinks brought in from home
[2022-05-31 11:50] LABS: Bedside Glucose 98 mg/dL (74-106)
[2022-05-31] MEDS: Collagenase 30gm Tube 1 APPLIC TOPICAL ×2 (12:12→22:02)
--- NOTE | 2022-05-31 13:11 | NURSING ---
message left with Dr Rasheed office to see when pt's diets can be upgraded.
--- NOTE | 2022-05-31 13:35 | PN_ITS ---
Subjective Subjective Afebrile VSS-persistently mildly tachycardic. Mean arterial pressure has ranged from 81- 82 over the past 48 hours. Maintaining appropriate oxygen saturation on RA Oral intake is adequate - she is getting TF I&O for 05/30/22 is 1725/3825 for a balance of -2049. So far today the I&O is 710/3800 for a balance of -3090. Discussed with nursing - no problems that need addressed Reviewed the PT/OT/ST notes Medication list reviewed. All lab today was personally reviewed. White blood cell count is now down to 20.2 hemoglobin is 7.7 today, down from 10.6 on 05/29/2022? Stool is loose but she is on TF. she has been complaining of nausea.......she is on Protonix. Platelets are within normal limits. Sodium is normal today at 137, up from 134 on 05/29/2022. Serum bicarb is high normal at 32 and the potassium is 3.7. BUN is 16 and stable with a creatinine of 0.418. Fasting glucose this morning is elevated at 149. Phosphorus is normal at 2.8 but the magnesium is very low at 0.9. Lipase is normal. Bere tells me that she was uncomfortable most of the night and had a hard time sleeping. She is only ordered Tylenol for pain. She denies lightheadedness, CP, SOB, palpitations, calf pain. The edema is much better today than yesterday after ALB + Lasix. Objective Data Objective Data Vital Signs: Vital Signs Temp Pulse Resp BP Pulse Ox O2 Del Method 97.5 F L 111 H 16 106/69 100 Room Air 05/31/22 07:57 05/31/22 07:57 05/31/22 07:57 05/31/22 07:57 05/31/22 07:57 05/31/22 07:57 Oxygen Delivery Method Room Air Weight: 117 lb Body Mass Index (BMI) 29.5 Intake & Output: Intake and Output for Last 24 Hours 05/29/22 05/30/22 05/31/22 23:59 23:59 23:59 Intake Total 1381 / 1481 1775 / 1775 710 / 710 Output Total 5250 / 5250 3825 / 3825 3800 / 3800 Balance -3869 / -3769 -2049 / -3090 / -309 Medical Nutrition Assessment Dietitian: Malnutrition Criteria Met Start: 05/29/22 08:26 Freq: Status: Active Protocol: Document 05/29/22 16:46 RMA (Rec: 05/29/22 16:46 RMA [id number]) Nutrition Malnutrition Evidence of Malnutrition Exists Yes Malnutrition (severe): Chronic Evidenced By Suboptimal Energy Intake ( Severe),Weight Loss (Severe) Clinical Problem Chronic Disease or Condition Related Malnutrition Etiology Severe protein-calorie malnutrition in the context of chronic disease related to inadequate oral intake Signs/Symptoms as evidenced by ~11% wt loss x past 6 months and oral intake meeting less than 50% estimated nutrition needs Status Active Problem Recommendation Dietitian Recommendations/Changes Will continue Pivot 1.5 via NGT at 20mL/hour w/ 60mL H2O flush every 4 hours to provide 720 calories, 45 g protein, and 720mL fluid/day. Reassess need to increase TF support if PO inadequate at meals to supplement balance of ginny/pro. Cont full liquid diet as tolerated with 120ml ensure plus high pro 4 x/day w/ medpass or premier protein drinks from home. Advance diet as medically able to Regular as tolerated. Weight 3 times per week-- discussed with JOEY Rivera. Adjust TF support as needed to complement oral intake and support weight status. Lab / Micro Data Result Diagrams: 05/31/22 06:05 05/31/22 06:05 Labs: Laboratory Results - last 24 hr 05/30/22 16:20: POC Glucose 127 H 05/30/22 20:52: POC Glucose 85 05/31/22 06:05: WBC 20.2 H, RBC 2.70 L, Hgb 7.7 L, Hct 24.1 L, MCV 89.3 D, MCH 28.5, MCHC 32.0, RDW Std Deviation 53.5 H, RDW Coeff of Seema 16.8 H, Plt Count 342, MPV 9.6 05/31/22 06:05: Sodium 137, Potassium 3.7, Chloride 99, Carbon Dioxide 32.0, Anion Gap 6, BUN 16, Creatinine 0.41 L, Estim Creat Clear Calc 148.23, Est GFR (MDRD) Af Amer 220, Est GFR (MDRD) Non-Af 182, BUN/Creatinine Ratio 39.4 H, Glucose 149 H, Calcium 8.1 L, Phosphorus 2.8, Magnesium 0.9 L* 05/31/22 06:05: Lipase 66 L 05/31/22 06:38: POC Glucose 108 H 05/31/22 11:30: POC Glucose 98 Physical Exam Const alert, oriented x3 and no apparent distress Constitutional Narrative: talkative, making good eye contact, appears to have normal affect.......not depressed. Gets anxious when we talk about debriding the wound. BP goes up when she is anxious she tells me. General Appearance: cooperative HEENT moist oral mucous membranes and oropharynx normal Resp clear to auscultation bilaterally Effort and Inspection: Negative for tachypneic, respiratory distress or labored Cardio regular rhythm, no murmurs and no gallops Cardio Narrative: tachycardic. GI GI Narrative: The abd is soft and she has no guarding with palpation. Normal BS's heard and not hyperactive. not distended. the edema in the flanks that was present yesterday is much better today. Urine in the Joseph bag is very pale in color and clear. Extremity no calf tenderness Extremity Narrative: She has an area in the R antecubital fossa that is red and there is a hard superficial V palpable. There is mild increased warmth in the area. No DC from the puncture site. General Extremity: edema bilateral (significant decrease since yesterday) Skin Rashes: no rashes Assessment & Plan Assessment/Plan (1) Debility: (2) Colitis: (3) Intra-abdominal abscess: (4) Ulcer of right lower extremity with fat layer exposed: (5) Sinus tachycardia: (6) Diarrhea: (7) Hypomagnesemia: (8) Hypokalemia: (9) Hyperglycemia: (10) Hyponatremia: (11) Acute on chronic anemia: (12) Severe malnutrition: PLAN: Plan 1. Continue therapy 2. Magnesium sulfate 4 g IV today - avoid PO mag now since she is already having loose stool. Will add Lactobacillus to her current drug regimen. 3. Recheck an H&H at 5 PM today and again in the a.m. 4. Hemoccult stool ordered 5. No furosemide today she is still diuresing from the albumin and Lasix given late last night. 6. Recheck a BMP and an albumin and magnesium in the a.m. 7. Plan on debriding the wound on the RLE tomorrow. Topical Lidocaine 4% and MS for anesthesia. Will do in the late afternoon so as not to interfere with therapy. 8. Start Tramadol 25 mg Q6H PRN pain.......will schedule a dose at bedtime since she tells me she could not get comfortable last night. 9. If the Hgb at 5 PM is less than 8 will type and screen for blood. 10. Decrease the Midodrine to 5 mg TID and continue to monitor the BP's. Charges/Coding Visit Charges Inpatient E&M: 08982 Subs Hosp L2
[2022-05-31] MEDS: Pivot 1.5 Cal 1,000 ML 20 ML GT (14:56)
--- NOTE | 2022-05-31 16:10 | CASEMGMT ---
Social Work Spoke with pt to complete initial assessment. DC plans, mood, PLOF discussed. See SW assessment for details. Will continue to follow. Deloris Lemus, DIRECTOR DATA ANALYTICS CAP AND STUD MACHINE OPERATOR
[2022-05-31 17:25] LABS: Bedside Glucose 74 mg/dL (74-106)
[2022-05-31] MEDS: Midodrine HCl 5 MG Tablet PO (17:39)
[2022-05-31] MEDS: Scopolamine 1mg/72hr Patch 1 PATCH TD (17:39)
[2022-05-31] MEDS: Magnesium Sulfate 4gm/100mL 4 GM/100 ML IV.SOLN. IV (18:28)
[2022-05-31 18:47] LABS: Hematocrit 25.3 % (37-47); Hemoglobin 8.4 g/dL (12.0-15.0)
[2022-05-31 19:14] LABS: Hemoglobin A1c 5.7 % (3.8-5.6)
[2022-05-31 20:18] VITALS: BP 116/71; PULSE 99; RESP 16; TEMP 35.9; O2SAT 99
[2022-05-31 21:16] LABS: Bedside Glucose 99 mg/dL (74-106)
[2022-05-31] MEDS: traMADol 50 MG Tablet 25 MG PO (21:31)
[2022-05-31 22:00] VITALS: PULSE 99; RESP 15; O2SAT 95
[2022-06-01] MEDS: Ondansetron ODT 4 MG Tablet 8 MG PO ×2 (05:14→14:22)
[2022-06-01] MEDS: 0.9% Saline Lock 10 ML Syringe IV ×3 (05:18→15:54)
[2022-06-01] MEDS: Menthol/Lanolin/Calamine/Znox 113 GM Tube 1 APPLIC TOPICAL ×3 (05:25→21:20)
[2022-06-01] MEDS: Potassium Chloride Oral Soln 20 MEQ/15 ML UDC PO ×3 (05:26→21:19)
[2022-06-01 07:00] LABS: Bedside Glucose 93 mg/dL (74-106)
[2022-06-01] MEDS: DULoxetine Hcl 20 MG Capsule PO (07:53)
[2022-06-01] MEDS: Vitamin E 400 UNITS Capsule PO (07:53)
[2022-06-01] MEDS: Ascorbic Acid 500 MG Tablet PO ×2 (07:53→18:01)
[2022-06-01] MEDS: Pantoprazole Sodium 40 MG Tablet PO (07:53)
[2022-06-01] MEDS: Midodrine HCl 5 MG Tablet PO ×3 (07:53→18:01)
[2022-06-01] MEDS: Cholecalciferol (VIT D3) 25 MCG TABLET (1,000 UNITS) 50 MCG PO (07:54)
[2022-06-01] MEDS: Collagenase 30gm Tube 1 APPLIC TOPICAL (08:26)
[2022-06-01 10:00] VITALS: BP 132/85; PULSE 98; RESP 16; TEMP 36.6; O2SAT 100
[2022-06-01 10:39] LABS: Hemoglobin 8.8 g/dL (12.0-15.0)
--- NOTE | 2022-06-01 10:55 | NURSING ---
spoke with Jen at Dr Osorio office. ok to advance pt to soft low fiber diet. have armed security professional continue to follow pt for tube feed recommendations.
[2022-06-01 11:09] LABS: Albumin, Serum 2.8 g/dL (3.2-5.0); Anion Gap 6 (5-15); BUN 15 mg/dL (7-18); BUN/Creat Ratio 42.1 RATIO (10-20); Chloride 99 mmol/L (98-107); Creatinine, Serum 0.36 mg/dL (0.55-1.02); EST Glomerular Filtration Rate 211 mL/min (>60); Est Glom Filt Rate - Afr Amer 256 mL/min (>60); Estimated Creatinine Clearance 136.78 ml/min; Glucose 117 mg/dL (74-106); Potassium 4.3 mmol/L (3.5-5.1); Sodium Level 136 mmol/L (136-145)
--- NOTE | 2022-06-01 11:10 | PN_ITS ---
Subjective Subjective Nathaniel was seen on team rounds today. Her friend Abrahan and one of her sisters were in the room for rounds. Day #9 meropenem for intra-abdominal abscess. Afebrile VSS-midodrine was decreased to 5 mg p.o. 3 times daily yesterday and the current blood pressure is 132/85. Heart rate is in the 90s now. Maintaining appropriate oxygen saturation on RA-100% on room air. Oral intake poor but, she has TF running. Fluid balance for the past 72H is - 10,760. Weight today is 94 pounds and 13 ounces which is down from 121 pounds and 14 ounces on 05/28/2022. She is down 23 pounds since 05/30/2022. Her weight at admission to the hospital was prior to coming to the hospital was 77 lbs per Abrahan. Blood sugar record was reviewed and all blood sugars for the past 24 hours have been under 110 with no hypoglycemia. Discussed with nursing - no problems that need addressed Reviewed the PT/OT notes Medication list reviewed. Hemoglobin today is 8.8 and she did not require transfusion yesterday. Sodium is 136 and the potassium is 43. Serum bicarb is 31 today and the BUN is 15 with a creatinine of 0.36 which is stable. Magnesium is 2 today following supplementation yesterday. Her serum albumin is 2.8. Calcium is within normal limits. She tells me that she slept better last night after the Tramadol was given at bedtime. Her abd and legs are feeling much less painful since the lasix /Alb and diuresis. She denies lightheadedness, SOB, CP. The nausea is adequately controlled. Objective Data Objective Data Vital Signs: Vital Signs Temp Pulse Resp BP Pulse Ox O2 Del Method 97.9 F 98 16 132/85 H 100 Room Air 06/01/22 10:00 06/01/22 10:00 06/01/22 10:00 06/01/22 10:06/01/22 10:06/01/22 10:00 Oxygen Delivery Method Room Air Weight: 94 lb 12.78 oz Body Mass Index (BMI) 29.5 Intake & Output: Intake and Output for Last 24 Hours 05/30/22 05/31/22 06/01/22 23:59 23:59 23:59 Intake Total 1775 / 1775 1060 / 1060 966 / 966 Output Total 3825 / 3825 5900 / 6450 2049 Balance -2049 / -4840 / -5390 -1084 / -1084 Medical Nutrition Assessment Dietitian: Malnutrition Criteria Met Start: 05/29/22 0 8:26 Freq: Status: Active Protocol: Document 05/29/22 16:46 RMA (Rec: 05/29/22 16:46 RMA [id number]) Nutrition Malnutrition Evidence of Malnutrition Exists Yes Malnutrition (severe): Chronic Evidenced By Suboptimal Energy Intake ( Severe),Weight Loss (Severe) Clinical Problem Chronic Disease or Condition Related Malnutrition Etiology Severe protein-calorie malnutrition in the context of chronic disease related to inadequate oral intake Signs/Symptoms as evidenced by ~11% wt loss x past 6 months and oral intake meeting less than 50% estimated nutrition needs Status Active Problem Recommendation Dietitian Recommendations/Changes Will continue Pivot 1.5 via NGT at 20mL/hour w/ 60mL H2O flush every 4 hours to provide 720 calories, 45 g protein, and 720mL fluid/day. Reassess need to increase TF support if PO inadequate at meals to supplement balance of ginny/pro. Cont full liquid diet as tolerated with 120ml ensure plus high pro 4 x/day w/ medpass or premier protein drinks from home. Advance diet as medically able to Regular as tolerated. Weight 3 times per week-- discussed with JOEY Rivera. Adjust TF support as needed to complement oral intake and support weight status. Lab / Micro Data Result Diagrams: 06/01/22 10:30 06/01/22 10:30 Labs: Laboratory Results - last 24 hr 05/31/22 11:30: POC Glucose 98 05/31/22 17:03: POC Glucose 74 05/31/22 18:30: Hgb 8.4 L, Hct 25.3 L 05/31/22 18:30: Hemoglobin A1c 5.7 H 05/31/22 20:54: POC Glucose 99 06/01/22 06:07: POC Glucose 93 06/01/22 10:30: Hgb 8.8 L, Hct 27.0 L 06/01/22 10:30: Sodium 136, Potassium 4.3, Chloride 99, Carbon Dioxide 31.0, Anion Gap 6, BUN 15, Creatinine 0.36 L, Estim Creat Clear Calc 136.78, Est GFR (MDRD) Af Amer 256, Est GFR (MDRD) Non-Af 211, BUN/Creatinine Ratio 42.1 H, Glucose 117 H, Calcium 9.0, Magnesium 2.0, Albumin 2.8 L Micro: Microbiology 05/31/22 09:40 Stool Stool Occult Blood (MARYANN) - Final Radiography Diagnostic Testing: Radiology Impression Extremity Arterial Study 05/30/22 16:05 Interpretation Summary Normal right PT and DP ankle-brachial index of 1.18 and 1.12 respectively with normal triphasic Doppler waveforms Normal left PT and DP ankle-brachial indices of 1.09 and 1.02 respectively with normal triphasic Doppler waveforms Ordering Physician: Anabela Disla Referring Physician: Jam Verde MD Performed By: Ken Ribera RVT Physical Exam Const alert, oriented x3 and no apparent distress Constitutional Narrative: pleasant and talkative. General Appearance: cooperative HEENT moist oral mucous membranes and oropharynx normal HEENT Narrative: No JVD Cardio regular rate, regular rhythm and no gallops GI GI Narrative: Abdomen is less distended today with no fluid wave. It is soft. She still has some tenderness to palpation in the RLQ but, it is better since the swelling in the abd is down......she had BL pleural effusions and pitting in the flanks on Sunday and I presume she also had ascites. Extremity Extremity Narrative: still with edema of the distal LE's but, much improved. Skin Wound Narrative: The wound on the R medial calf has no periwound erythema, no purulent DC and no odor. The eschar of the distal pole was 90% debrided today ( the eschar was much softer and easy to lift off the wound) with a scalpel and pick ups. The area debrided is now yellow slough. It does bleed and there is good blood supply to the area. The color of the entire wound is better since the edema has dramatically improved. She tolerated this well. The slough of the upper pole of the wound was debrided with a curet. This wound is deeper and will need additional debridement The upper pole is 100% slough. The mid portion on the wound is now superficial and there is evidence of granulation. IT is vascular and bleeds when I pull the adaptic off. Bere was given 2 mg of IV MS and then gauze was soaked with a 4% Lidocaine solution and allowed to soak into the wound for 10 minutes. She got another 2 mg of IV MS during the procedure for pain and overall she tolerated very well. she is very anxious about the wound being debrided. Assessment & Plan Assessment/Plan (1) Debility: PLAN: Continue therapy for generalized weakness. (2) Intra-abdominal abscess: PLAN: Will need to query ID on how long she should be taking Merrem. She has had C DIFF in the past. Will continue the Lactobacillus. 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 (4) Severe malnutrition: PLAN: Diet was advance today and she is very happy to be on a soft, low residue diet. She had some beef tips and noodles, cottage cheese and mashed potatoes for lunch. She had been drinking the Ensure 4 X's a day. She was seen by the quarry plug and feather driller today and we are going to change the TF to only at night so we don't interfere with appetite and ability to eat real food. If she is eating well then we can decrease the TF. (5) Colitis: PLAN: Will need a colonoscopy at a later date......etiology of abscess? (6) Diarrhea: PLAN: This may be related to malnutrition and sloughing of the brush border. Will discuss possibly using an elemental formula with the quarry plug and feather driller. Will also discuss adding Questran to her drug regimen to help firm up the stool. (7) Hypomagnesemia: PLAN: Resolved with 4 g of IV magnesium sulfate yesterday. We will recheck the magnesium on Sunday and if it is low again supplemented. Hesitate to start an oral magnesium supplement at this time because she already has diarrhea. PLAN: Plan When the wound has a good granulating base will consult Dr. Slaby for possible skin graft......nutrition will need to improve to optimize chance of success. Charges/Coding Visit Charges Inpatient E&M: 81975 Subs Hosp L3
[2022-06-01 11:55] LABS: Bedside Glucose 85 mg/dL (74-106)
--- NOTE | 2022-06-01 12:44 | CASEMGMT ---
Social Work IDT met with patient, friend Abrahan, and sister for Team meeting. Discussed patient's progress in PT/OT/SN. Educated to [facility]yshe[facility] MOORE with NRD 06/05 and continued stay is not guaranteed with each review. Pt's goal is to DC home to parents house and with 18/12 assistance. Pt remains on tube feed, hernandez, IV ATB and fluids. Pt is improving with appetite and eating food. SW to coordinate all needs at DC. Will ReTeam next week. Will continue to follow. Deloris Lemus, FACILITY SALES AND ADMIN CLINICAL CODER
[2022-06-01] MEDS: Morphine 2 MG/ML Syringe IV ×2 (14:35→15:53)
[2022-06-01] MEDS: Lidocaine 4% 50 ML Bottle TOPICAL (15:34)
[2022-06-01] MEDS: Juven (unflavored) Packet 1 PACKET PO (18:01)
[2022-06-01] MEDS: Pivot 1.5 Cal 1,000 ML 25 ML NG (18:02)
[2022-06-01 21:12] VITALS: BP 124/65; PULSE 99; RESP 20; TEMP 36.6; O2SAT 99
[2022-06-01] MEDS: traMADol 50 MG Tablet 25 MG PO (21:20)
[2022-06-02] MEDS: Potassium Chloride Oral Soln 20 MEQ/15 ML UDC PO ×3 (06:22→20:45)
[2022-06-02] MEDS: Menthol/Lanolin/Calamine/Znox 113 GM Tube 1 APPLIC TOPICAL ×3 (06:22→20:46)
[2022-06-02] MEDS: Ondansetron ODT 4 MG Tablet 8 MG PO (06:23)
[2022-06-02 06:41] VITALS: O2SAT 94
[2022-06-02] MEDS: DULoxetine Hcl 20 MG Capsule PO (08:13)
[2022-06-02] MEDS: Vitamin E 400 UNITS Capsule PO (08:13)
[2022-06-02] MEDS: Cholecalciferol (VIT D3) 25 MCG TABLET (1,000 UNITS) 50 MCG PO (08:13)
[2022-06-02] MEDS: Pantoprazole Sodium 40 MG Tablet PO (08:13)
[2022-06-02] MEDS: Ascorbic Acid 500 MG Tablet PO ×2 (08:13→18:00)
[2022-06-02] MEDS: Midodrine HCl 5 MG Tablet PO (08:14)
[2022-06-02] MEDS: Acetaminophen 650 MG/20 ML UDC 1000 MG PO (08:18)
[2022-06-02 09:25] VITALS: BP 115/67; PULSE 69; RESP 12; TEMP 36; O2SAT 100
--- NOTE | 2022-06-02 11:16 | PN_ITS ---
Subjective Subjective Day #10 meropenem Afebrile VSS-heart rate continues to improve with diuresis. Her heart rate this morning at rest was 69. Blood pressure is within normal limits. Maintaining appropriate oxygen saturation on RA-100% Oral intake is good Fluid balance on 06/01/2022 was -734. Today she is -850 so far. Urine in the F oley bag is still very pale. Discussed with nursing - no problems that need addressed Reviewed the PT/OT notes Medication list reviewed. Bere slept well last night. Last night for supper she ate 1/2 of a cheeseburger and a chicken nugget. She had beef tips and noodles for lunch yesterday. Eating small amounts......feels full faster than she used to. TF has been changed to at night only. No cough, SOB, CP. No pelvic pain. Objective Data Objective Data Vital Signs: Vital Signs Temp Pulse Resp BP Pulse Ox O2 Del Method 96.8 F L 69 12 115/67 100 Room Air 06/02/22 09:25 06/02/22 09:25 06/02/22 09:25 06/02/22 09:25 06/02/22 09:25 06/02/22 09:36 Oxygen Delivery Method Room Air Weight: 94 lb 12.78 oz Body Mass Index (BMI) 29.5 Intake & Output: Intake and Output for Last 24 Hours 05/31/22 06/01/22 06/02/22 23:59 23:59 23:59 Intake Total 1060 / 1060 1966 / 2086 750 / 750 Output Total 5900 / 6450 2700 / 2700 1600 / 1600 Balance -4840 / -5390 -734 / -614 -850 / -850 Medical Nutrition Assessment Dietitian: Malnutrition Criteria Met Start: 05/29/22 08:26 Freq: Status: Active Protocol: Document 06/01/22 13:02 AG (Rec: 06/01/22 13:44 AG [id number]) Nutrition Malnutrition Evidence of Malnutrition Exists Yes Malnutrition (severe): Chronic Evidenced By Suboptimal Energy Intake ( Severe),Weight Loss (Severe) Clinical Problem Chronic Disease or Condition Related Malnutrition Etiology Severe protein-calorie malnutrition in the context of chronic disease related to inadequate oral intake Signs/Symptoms as evidenced by ~11% wt loss x past 6 months and oral intake meeting less than 50% estimated nutrition needs Status Active Problem Recommendation Dietitian Recommendations/Changes 1) Fiber Restricted diet- soft & bite sized as appropriate. 2) Will adjust Pivot 1.5 via NGT to nocturnal feeds- new goal rate is 45mL/hour for 12 hours w/ 60mL H2O flush every 4 hours to provide 810 calories, 50 g protein, and 765mL fluid/day which meets about 50-60% of estimated calorie/protein needs. Will monitor PO intake, wt, and adjust nutrition support as indicated. 3) Continue 120ml ensure plus high protein 4 x/day w/ medpass or premier protein drinks from home. 4) Adrian BID for wound healing . 5) Weight 3 times per week as ordered. Lab / Micro Data Result Diagrams: 06/01/22 10:30 06/01/22 10:30 Labs: Laboratory Results - last 24 hr 06/01/22 11:37: POC Glucose 85 Micro: Microbiology 05/31/22 09:40 Stool Stool Occult Blood (MARYANN) - Final Physical Exam Extremity Extremity Narrative: No gastrocnemius pain. The wound in the lower pole is even with the surrounding skin......except for the spot where the bx was taken. Slough is less. There is a depression in the wound in the upper pole where the 2nd bx was taken at the wound care center. Still 90% slough. The center of the wound is even with the surrounding skin and there is granulation tissue. No odor and no purulent DC. There is no pitting edema in the RLE, not even in the dependent portion of the leg. There is still some swelling in the LLE....foot and ankle.......nursing is going to [place] wrap the left leg asa well as the R. Assessment & Plan Assessment/Plan (1) Debility: PLAN: Continue therapy for generalized weakness. (2) Intra-abdominal abscess: PLAN: Discussed discontinuation of the Merrem with Dr. Carlton. Today is day 10 of Merrem and prior to Merrem she had 2-3 days of Levaquin. Will DC after the last dose today. (3) Ulcer of right lower extremity with fat layer exposed: PLAN: Improving. Will continue Santyl covered with a wet to dry dressing to h elp with debriding the slough. Will mechanically debride again tomorrow when the dressing is changed in the AM.....premedicate with MS and lidocaine 4% solution. (4) Severe malnutrition: PLAN: Continue to monitor weight every other day. (5) Colitis: PLAN: Will need a colonoscopy at a later date......etiology of abscess? (6) Diarrhea: PLAN: stool is soft and loose...... sometimes liquid. There are no bowel movements recorded for 06/01/2022. She had 2 BM's on 05/31/22. Add Questran to drug regimen to see if we can firm up the stool......it may improve with discontinuation of the Merrem also. Continue Lactobacillus after Merrem discontinued for 7-10 days. (7) Hypomagnesemia: PLAN: Resolved with 4 g of IV magnesium sulfate yesterday. We will recheck the magnesium on Sunday and if it is low again supplemented. Hesitate to start an oral magnesium supplement at this time because she already has diarrhea. PLAN: Plan When the wound has a good granulating base will consult Dr. Jorge for possible skin graft......nutrition will need to improve to optimize chance of success. When it is granulating in the upper and lower poles will consider using Fibracol to dress the wound. Charges/Coding Visit Charges Inpatient E&M: 03651 Subs Hosp L1
[2022-06-02] MEDS: Collagenase 30gm Tube 1 APPLIC TOPICAL ×2 (14:01→20:49)
[2022-06-02] MEDS: Pivot 1.5 Cal 1,000 ML 45 ML NG (17:59)
--- NOTE | 2022-06-02 20:00 | NURSING ---
Joseph removed this shift per order. pt tolerated well.
[2022-06-02] MEDS: traMADol 50 MG Tablet 25 MG PO (20:45)
[2022-06-02] MEDS: Pantoprazole Sodium 20 MG Tablet PO (20:46)
[2022-06-02 22:00] VITALS: BP 120/82; PULSE 100; RESP 17; TEMP 36.9; O2SAT 100
[2022-06-03] MEDS: Menthol/Lanolin/Calamine/Znox 113 GM Tube 1 APPLIC TOPICAL ×3 (06:07→22:19)
[2022-06-03] MEDS: Potassium Chloride Oral Soln 20 MEQ/15 ML UDC PO ×3 (06:08→22:19)
--- NOTE | 2022-06-03 06:38 | NURSING ---
Bladder scan for 0ml after voiding in bedpan. Measured 350ml of straw colored urine mixed w/ stool. Will continue to monitor.
[2022-06-03 06:45] LABS: Bedside Glucose 116 mg/dL (74-106)
[2022-06-03 08:00] VITALS: BP 107/72; BP 123/82; PULSE 100; PULSE 90
[2022-06-03] MEDS: Ascorbic Acid 500 MG Tablet PO ×2 (08:03→18:25)
[2022-06-03] MEDS: Vitamin E 400 UNITS Capsule PO (08:03)
[2022-06-03] MEDS: DULoxetine Hcl 20 MG Capsule PO (08:03)
[2022-06-03] MEDS: Acetaminophen 650 MG/20 ML UDC 1000 MG PO (08:04)
[2022-06-03] MEDS: Cholecalciferol (VIT D3) 25 MCG TABLET (1,000 UNITS) 50 MCG PO (08:04)
[2022-06-03] MEDS: Pantoprazole Sodium 20 MG Tablet PO ×2 (08:04→22:30)
[2022-06-03] MEDS: Loperamide 2 MG Capsule 4 MG PO (08:06)
[2022-06-03 08:11] VITALS: BP 114/77; PULSE 102; RESP 16; TEMP 36.7; O2SAT 95
[2022-06-03] MEDS: 0.9% Saline Lock 10 ML Syringe IV ×2 (11:06→12:56)
[2022-06-03] MEDS: Morphine 2 MG/ML Syringe IV ×2 (11:06→12:54)
[2022-06-03] MEDS: Lidocaine 4% 50 ML Bottle TOPICAL (12:15)
[2022-06-03] MEDS: Collagenase 30gm Tube 1 APPLIC TOPICAL (12:55)
--- NOTE | 2022-06-03 13:48 | PCM.PROGNOTE ---
Subjective Subjective Afebrile VSS Maintaining appropriate oxygen saturation on RA Oral intake is improving Discussed with nursing - no problems that need addressed Reviewed the PT/OT/ST notes Medication list reviewed. The wound on the medial R calf was debrided today. 4% Lidocaine topically was utilized to numb the wound and she received 2 mg IV MS X 2 for pain control. A 7 mg curette was used to debride the wound and also pickups and scissors. No more eschar on the wound. There is new epithelialization in the center of the wound. The wound is vascular and was debrided down to healthy bleeding tissue. Objective Data Objective Data Vital Signs: Vital Signs Temp Pulse Resp BP Pulse Ox O2 Del Method 98.1 F 102 H 16 114/77 95 Room Air 06/03/22 08:11 06/03/22 08:11 06/03/22 08:11 06/03/22 08:11 06/03/22 08:11 06/03/22 08:11 Oxygen Delivery Method Room Air Weight: 94 lb 2.198 oz Body Mass Index (BMI) 29.5 Intake & Output: Intake and Output for Last 24 Hours 06/01/22 06/02/22 06/03/22 23:59 23:59 23:59 Intake Total 1965 / 6 1210 / 1330 500 / 500 Output Total 2700 / 2700 2650 / 2950 1450 / 1450 Balance -734 / -614 -1440 / -1620 -950 / -950 Medical Nutrition Assessment Dietitian: Malnutrition Criteria Met Start: 05/29/22 08:26 Freq: Status: Active Protocol: Document 06/01/22 13:02 (Rec: 06/01/22 13:44 [id number]) Nutrition Malnutrition Evidence of Malnutrition Exists Yes Malnutrition (severe): Chronic Evidenced By Suboptimal Energy Intake ( Severe),Weight Loss (Severe) Clinical Problem Chronic Disease or Condition Related Malnutrition Etiology Severe protein-calorie malnutrition in the context of chronic disease related to inadequate oral intake Signs/Symptoms as evidenced by ~11% wt loss x past 6 months and oral intake meeting less than 50% estimated nutrition needs Status Active Problem Recommendation Dietitian Recommendations/Changes 1) Fiber Restricted diet- soft & bite sized as appropriate. 2) Will adjust Pivot 1.5 via NGT to nocturnal feeds- new goal rate is 45mL/hour for 12 hours w/ 60mL H2O flush every 4 hours to provide 810 calories, 50 g protein, and 765mL fluid/day which meets about 50-60% of estimated calorie/protein needs. Will monitor PO intake, wt, and adjust nutrition support as indicated. 3) Continue 120ml ensure plus high protein 4 x/day w/ medpass or premier protein drinks from home. 4) Adrian BID for wound healing . 5) Weight 3 times per week as ordered. Lab / Micro Data Result Diagrams: 06/10/22 06:15 06/10/22 06:15 Labs: Laboratory Results - last 24 hr 06/03/22 06:03: POC Glucose 116 H Micro: Microbiology 05/31/22 09:40 Stool Stool Occult Blood (MARYANN) - Final Physical Exam Const alert and no apparent distress Resp normal respiratory effort and clear to auscultation bilaterally Resp Narrative: No conversational dyspnea. Able to speak in complete sentences. Cardio regular rhythm and no gallops GI normal to inspection, nondistended, normoactive bowel sounds and soft to palpation Extremity General Extremity: Negative for edema Skin General Skin Exam: no breakdown Rashes: no rashes Psych cooperative and affect normal Appearance: appropriate Assessment & Plan Assessment/Plan (1) Debility: (2) Severe malnutrition: (3) Ulcer of right lower extremity with fat layer exposed: PLAN: (4) Hypomagnesemia: PLAN: Plan 1. Continue therapy. 2. Debride the wound again day after tomorrow 3. Recheck lab in the a.m. Charges/Coding Visit Charges Inpatient E&M: 99861 Subs Hosp L2
[2022-06-03] MEDS: Ondansetron ODT 4 MG Tablet 8 MG PO (14:24)
[2022-06-03] MEDS: Scopolamine 1mg/72hr Patch 1 PATCH TD (18:26)
[2022-06-03] MEDS: Pivot 1.5 Cal 1,000 ML 45 ML NG (20:22)
[2022-06-03 20:38] VITALS: BP 125/81; PULSE 110; RESP 19; TEMP 36.6; O2SAT 98
[2022-06-03] MEDS: traMADol 50 MG Tablet 25 MG PO (22:30)
[2022-06-04] MEDS: Potassium Chloride Oral Soln 20 MEQ/15 ML UDC PO ×3 (06:08→20:32)
[2022-06-04] MEDS: Collagenase 30gm Tube 1 APPLIC TOPICAL (06:12)
[2022-06-04] MEDS: 0.9% Saline Lock 10 ML Syringe IV ×3 (06:13→20:34)
[2022-06-04 08:15] VITALS: BP 111/73; PULSE 102; RESP 16; TEMP 36.2; O2SAT 98
[2022-06-04] MEDS: Vitamin E 400 UNITS Capsule PO (08:25)
[2022-06-04] MEDS: Ascorbic Acid 500 MG Tablet PO ×2 (08:25→16:49)
[2022-06-04] MEDS: DULoxetine Hcl 20 MG Capsule PO (08:25)
[2022-06-04] MEDS: Cholecalciferol (VIT D3) 25 MCG TABLET (1,000 UNITS) 50 MCG PO (08:25)
[2022-06-04] MEDS: Pantoprazole Sodium 20 MG Tablet PO ×2 (08:25→20:32)
[2022-06-04] MEDS: Loperamide 2 MG Capsule 4 MG PO (13:49)
[2022-06-04] MEDS: traMADol 50 MG Tablet 25 MG PO ×2 (15:22→20:32)
[2022-06-04] MEDS: Pivot 1.5 Cal 1,000 ML 45 ML NG (18:12)
[2022-06-04 19:57] VITALS: BP 111/69; PULSE 136; RESP 18; TEMP 36.9; O2SAT 98
[2022-06-04 20:26] VITALS: PULSE 117; RESP 16; O2SAT 99
[2022-06-05] MEDS: Ondansetron ODT 4 MG Tablet 8 MG PO ×2 (06:24→14:42)
[2022-06-05] MEDS: Potassium Chloride Oral Soln 20 MEQ/15 ML UDC PO ×3 (06:25→21:30)
[2022-06-05] MEDS: Menthol/Lanolin/Calamine/Znox 113 GM Tube 1 APPLIC TOPICAL (06:25)
[2022-06-05] MEDS: 0.9% Saline Lock 10 ML Syringe IV ×4 (06:35→16:31)
[2022-06-05 08:42] LABS: ALB/GLOB Ratio 0.8 RATIO (0.9-2.4); AST(SGOT) 117 U/L (15-37); Alanine Aminotransfer ALT/SGPT 126 U/L (13-56); Albumin, Serum 2.8 g/dL (3.2-5.0); Alkaline Phosphatase 199 U/L (45-117); Anion Gap 6 (5-15); BUN 42 mg/dL (7-18); BUN/Creat Ratio 146.3 RATIO (10-20); Calcium,Total 8.8 mg/dL (8.5-10.1); Chloride 99 mmol/L (98-107); Creatinine, Serum 0.29 mg/dL (0.55-1.02); EST Glomerular Filtration Rate 271 mL/min (>60); Est Glom Filt Rate - Afr Amer 328 mL/min (>60); Estimated Creatinine Clearance 168.61 ml/min; Globulin 3.4 g/dL (2.2-4.2); Glucose 112 mg/dL (74-106); Potassium 4.4 mmol/L (3.5-5.1); Protein, Total 6.2 g/dL (6.4-8.2); Sodium Level 135 mmol/L (136-145)
[2022-06-05 08:50] VITALS: BP 103/64; PULSE 114; RESP 16; TEMP 37; O2SAT 99
[2022-06-05 09:34] LABS: Absolute Lymphocyte Count 2.66 X10^3/uL (0.83-4.51); Absolute Neutrophil Count 11.5 X10^3/uL (2.0-7.7); Basophil# 0.11 X10^3/uL; Basophil% 0.6 % (0-1); Eosinophil# 0.05 X10^3/uL; Eosinophils% 0.3 % (0-5); Hematocrit 26.5 % (37-47); Hemoglobin 8.7 g/dL (12.0-15.0); Lymphocyte # 2.66 X10^3/ul (0.83-4.51); Lymphocyte % 15.4 % (19-41); Mean Corp Hgb Conc 32.8 g/dL (32-36); Mean Corpuscular Hgb 30.6 pg (27.0-32.0); Mean Corpuscular Volume 93.3 fL (81-99); Monocyte# 2.26 X10^3/uL; Monocyte% 13.1 % (0-10); NRBC Flagged by Analyzer 0 % (0-5); Neutrophil # 11.46 X10^3/uL (2.7-7.7); Neutrophil % 66.5 % (47-70); POSITIVE DIFFERENTIAL YES; Platelet Count 588 K/mm3 (150-450); RBC Distribution Width CV 18.5 % (11.6-14.6); RBC Distribution Width SD 57.1 fl (35.1-43.9); Red Blood Count 2.84 M/mm3 (4.2-5.4); White Blood Count 17.3 K/mm3 (4.4-11.0)
[2022-06-05 09:43] LABS: Differential Indicated SCAN CRITERIA MET
[2022-06-05 10:00] VITALS: PULSE 120
[2022-06-05 10:02] LABS: Differential Comment SCANNED
[2022-06-05] MEDS: DULoxetine Hcl 20 MG Capsule PO (10:16)
[2022-06-05] MEDS: Cholecalciferol (VIT D3) 25 MCG TABLET (1,000 UNITS) 50 MCG PO (10:16)
[2022-06-05] MEDS: Vitamin E 400 UNITS Capsule PO (10:16)
[2022-06-05] MEDS: Ascorbic Acid 500 MG Tablet PO ×2 (10:16→18:21)
--- NOTE | 2022-06-05 11:28 | PN_ITS ---
Subjective Subjective Afebrile VSS event heart rate has been elevated since the seventh and has ranged from 102-136. Blood pressure this morning is 103/64. Maintaining appropriate oxygen saturation on RA Oral intake is good..... Urine output is still exceeding intake and she is on no diuretics. The BUN is 42 today with a creatinine of 0.29 and a BUN/creatinine ratio of 146.3. Discussed with nursing - no problems that need addressed Reviewed the PT/OT/ST notes Medication list reviewed. Urine osmolality is 309. Serum osmolality is pending. CRP is elevated at 9.23 and the ESR is 40. The white blood cell count is elevated at 17.3 still with 4.1% immature granulocytes which is up from 2.5% on 05/28/2022. Objective Data Objective Data Vital Signs: Vital Signs Temp Pulse Resp BP Pulse Ox O2 Del Method 98.6 F 120 H 16 103/64 99 Room Air 06/05/22 08:50 06/05/22 10:00 06/05/22 08:50 06/05/22 08:50 06/05/22 08:50 06/05/22 08:50 Oxygen Delivery Method Room Air Weight: 94 lb 2.198 oz Body Mass Index (BMI) 29.5 Intake & Output: Intake and Output for Last 24 Hours 06/03/22 06/04/22 06/05/22 23:59 23:59 23:59 Intake Total 1260 / 1260 1120 / 1120 480 / 480 Output Total 3000 / 3000 1950 / 1950 250 / 250 Balance -1740 / -1740 -830 / -830 230 / 230 Medical Nutrition Assessment Dietitian: Malnutrition Criteria Met Start: 05/29/22 08:26 Freq: Status: Active Protocol: Document 06/01/22 13:02 AG (Rec: 06/01/22 13:44 AG [id number]) Nutrition Malnutrition Evidence of Malnutrition Exists Yes Malnutrition (severe): Chronic Evidenced By Suboptimal Energy Intake ( Severe),Weight Loss (Severe) Clinical Problem Chronic Disease or Condition Related Malnutrition Etiology Severe protein-calorie malnutrition in the context of chronic disease related to inadequate oral intake Signs/Symptoms as evidenced by ~11% wt loss x past 6 months and oral intake meeting less than 50% estimated nutrition needs Status Active Problem Recommendation Dietitian Recommendations/Changes 1) Fiber Restricted diet- soft & bite sized as appropriate. 2) Will adjust Pivot 1.5 via NGT to nocturnal feeds- new goal rate is 45mL/hour for 12 hours w/ 60mL H2O flush every 4 hours to provide 810 calories, 50 g protein, and 765mL fluid/day which meets about 50-60% of estimated calorie/protein needs. Will monitor PO intake, wt, and adjust nutrition support as indicated. 3) Continue 120ml ensure plus high protein 4 x/day w/ medpass or premier protein drinks from home. 4) Adrian BID for wound healing . 5) Weight 3 times per week as ordered. Lab / Micro Data Result Diagrams: 06/05/22 08:15 06/05/22 08:15 Labs: Laboratory Results - last 24 hr 06/05/22 08:15: WBC 17.3 H, RBC 2.84 L, Hgb 8.7 L, Hct 26.5 L, MCV 93.3, MCH 30.6, MCHC 32.8, RDW Std Deviation 57.1 H, RDW Coeff of Seema 18.5 H, Plt Count 588 H, MPV 9.0, Immature Gran % (Auto) 4.100 H, Neut % (Auto) 66.5, Lymph % (Auto) 15.4 L, [place] % (Auto) 13.1 H, Eos % (Auto) 0.3, Baso % (Auto) 0.6, Absolute Neuts (auto) 11.5 H, Absolute Lymphs (auto) 2.66, Nucleated RBC % 0, Differential Comment SCANNED, Diff Path Review September06/05/22 08:15: Sodium 135 L, Potassium 4.4, Chloride 99, Carbon Dioxide 30.0, Anion Gap 6, BUN 42 H, Creatinine 0.29 L, Estim Creat Clear Calc 168.61, Est GFR (MDRD) Af Amer 328, Est GFR (MDRD) Non-Af 271, BUN/Creatinine Ratio 146.3 H, Glucose 112 H, Calcium 8.8, Magnesium 1.0 L, Total Bilirubin 0.30, AST 117 H, ALT 126 H, Alkaline Phosphatase 199 H, Total Protein 6.2 L, Albumin 2.8 L, Globulin 3.4, Albumin/Globulin Ratio 0.8 L Micro: Microbiology 05/31/22 09:40 Stool Stool Occult Blood (MARYANN) - Final Physical Exam Const alert, oriented x3 and no apparent distress Cardio regular rhythm and no gallops Rate: tachycardic GI normal to inspection, nondistended, normoactive bowel sounds, soft to palpation and non-tender GI Narrative: No burning with palpation in the right upper quadrant or the right lower quadrant. She denies abdominal pain. The scopolamine patch was removed today and she denies nausea currently. Extremity General Extremity: Negative for edema Skin Wounds: wounds noted Wound Narrative: The wound on the R medial calf measures 10.2 cm L X 3.5 cm W X 0.2 mm depth of the distal bx site and 0.8 mm deep on the proximal bx site. There is no eschar now. There is still about 20-30% slough in the upper wound......but not in the bx site...that is granulating. The middle of the wound has new epithelialization at the wound margins and islands of new epithelium within the wound. The lower wound is even with the surrounding skin except for the bx site which is now only 0.2 mm deep now. Slough is about 10-20%. No odor and no purulent DC. Psych cooperative and affect normal Assessment & Plan Assessment/Plan (1) Debility: (2) Edema due to hypoalbuminemia: (3) Abnormal LFTs: (4) Hyponatremia: (5) Acute on chronic anemia: (6) Metastatic breast cancer: (7) Muscular dystrophy: (8) Severe malnutrition: (9) Ulcer of right lower extremity with fat layer exposed: (10) Thrombocytosis: PLAN: Plan 1. Continue therapy 2. Check urine and serum osmolality. If the urine osmolality is low will give a dose of Desmopressin and recheck the urine osmolality to see if it comes up. If not will consult nephrology for possible Bartter or Gitelman syndromes. She is already on potassium supplementation and the hypomagnesemia has marya supplemented this admission but, it keeps dropping. 3. Hydrate with NS now and replace the Magnesium........she is tachycardic and I suspect she would also be orthostatic. BP is lower today. 4. iron studies on 05/02/22 were not consistent with iron deficiency. 5. The ESR and CRP are elevated and the procalcitonin is elevated at 0.43. WBC is still elevated and the % immature granulocytes are increasing again. Also the LFT's are increasing.........could she have an abscess in the liver? Will recheck the procalcitonin in the AM and if it increasing will get a CT scan of the Abd. 6. Recheck a CMP in the AM and a CBC with with the procalcitonin 7. DC Santyl and restart Lilibeth......pt will have her family bring this in from home.......for owen will use hydrogel with silver. Charges/Coding Visit Charges Inpatient E&M: 50559 Subs Hosp L2
[2022-06-05] MEDS: Pantoprazole Sodium 20 MG Tablet PO ×2 (11:33→21:30)
[2022-06-05] MEDS: Collagenase 30gm Tube 1 APPLIC TOPICAL (12:19)
[2022-06-05 13:29] LABS: CRP 9.23 mg/L (0.0-3.0)
[2022-06-05 13:37] LABS: Erythrocyte Sedimentation Rate 40 mm/hr (0-30)
[2022-06-05 14:27] LABS: Osmolality, Urine 309 mOsm/KG
[2022-06-05] MEDS: Morphine 2 MG/ML Syringe IV ×2 (15:35→16:33)
[2022-06-05] MEDS: Magnesium Sulfate 4gm/100mL 4 GM/100 ML IV.SOLN. IV (15:42)
[2022-06-05] MEDS: 0.9% Normal Saline 1,000 ML 75 ML IV (15:42)
[2022-06-05] MEDS: Lidocaine 4% 50 ML Bottle TOPICAL (16:06)
[2022-06-05 16:59] LABS: Procalcitonin 0.43 ng/mL (0.00-0.09)
[2022-06-05 17:03] LABS: Osmolality, Serum 292 mOsm/KG (275-295)
[2022-06-05] MEDS: Pivot 1.5 Cal 1,000 ML 45 ML NG (18:57)
[2022-06-05 21:00] VITALS: BP 112/65; PULSE 137; RESP 18; TEMP 36.8; O2SAT 98
--- NOTE | 2022-06-06 03:16 | NURSING ---
Reviewed and agree with Ashu CATHERINE, documentation and assessment charting.
[2022-06-06] MEDS: 0.9% Saline Lock 10 ML Syringe IV (06:04)
[2022-06-06] MEDS: Pivot 1.5 Cal 1,000 ML 45 ML NG ×2 (06:15→18:16)
[2022-06-06 06:35] LABS: Absolute Lymphocyte Count 2.04 X10^3/uL (0.83-4.51); Absolute Neutrophil Count 11.9 X10^3/uL (2.0-7.7); Basophil# 0.08 X10^3/uL; Basophil% 0.5 % (0-1); Eosinophil# 0.08 X10^3/uL; Eosinophils% 0.5 % (0-5); Hematocrit 20.2 % (37-47); Hemoglobin 6.4 g/dL (12.0-15.0); Lymphocyte # 2.04 X10^3/ul (0.83-4.51); Lymphocyte % 12.3 % (19-41); Mean Corp Hgb Conc 31.7 g/dL (32-36); Mean Corpuscular Hgb 29.9 pg (27.0-32.0); Mean Corpuscular Volume 94.4 fL (81-99); Mean Platelet Vol. 8.8 fl (6.2-12.0); Monocyte# 2.07 X10^3/uL; Monocyte% 12.5 % (0-10); NRBC Flagged by Analyzer 0 % (0-5); Neutrophil # 11.92 X10^3/uL (2.7-7.7); Neutrophil % 72.1 % (47-70); POSITIVE DIFFERENTIAL YES; Platelet Count 523 K/mm3 (150-450); RBC Distribution Width CV 18.8 % (11.6-14.6); RBC Distribution Width SD 60.3 fl (35.1-43.9); Red Blood Count 2.14 M/mm3 (4.2-5.4); White Blood Count 16.5 K/mm3 (4.4-11.0)
[2022-06-06 06:37] LABS: Differential Indicated SCAN CRITERIA MET
[2022-06-06] MEDS: Potassium Chloride Oral Soln 20 MEQ/15 ML UDC PO ×3 (06:38→22:11)
[2022-06-06] MEDS: Loperamide 2 MG Capsule 4 MG PO (06:38)
[2022-06-06 07:00] LABS: ALB/GLOB Ratio 0.8 RATIO (0.9-2.4); AST(SGOT) 65 U/L (15-37); Alanine Aminotransfer ALT/SGPT 96 U/L (13-56); Albumin, Serum 2.5 g/dL (3.2-5.0); Alkaline Phosphatase 171 U/L (45-117); Anion Gap 3 (5-15); BUN 38 mg/dL (7-18); BUN/Creat Ratio 128.4 RATIO (10-20); Calcium,Total 8.4 mg/dL (8.5-10.1); Chloride 102 mmol/L (98-107); EST Glomerular Filtration Rate 261 mL/min (>60); Est Glom Filt Rate - Afr Amer 316 mL/min (>60); Estimated Creatinine Clearance 162.99 ml/min; Globulin 3.1 g/dL (2.2-4.2); Glucose 145 mg/dL (74-106); Magnesium 2.1 mg/dL (1.6-2.6); Potassium 3.5 mmol/L (3.5-5.1); Protein, Total 5.6 g/dL (6.4-8.2); Sodium Level 138 mmol/L (136-145)
[2022-06-06 07:26] VITALS: BP 107/68; PULSE 104; RESP 17; TEMP 36.3; O2SAT 100
[2022-06-06 07:50] LABS: Platelet Estimate MOD INC (ADEQ)
[2022-06-06 07:51] LABS: Differential Comment SCANNED
[2022-06-06 08:37] LABS: Procalcitonin 0.41 ng/mL (0.00-0.09)
[2022-06-06 08:42] LABS: Hematocrit 23.5 % (37-47); Hemoglobin 7.5 g/dL (12.0-15.0)
[2022-06-06] MEDS: Pantoprazole Sodium 20 MG Tablet PO ×2 (10:32→22:11)
[2022-06-06] MEDS: DULoxetine Hcl 20 MG Capsule PO (10:32)
[2022-06-06] MEDS: Vitamin E 400 UNITS Capsule PO (10:32)
[2022-06-06] MEDS: Cholecalciferol (VIT D3) 25 MCG TABLET (1,000 UNITS) 50 MCG PO (10:32)
[2022-06-06] MEDS: Ascorbic Acid 500 MG Tablet PO ×2 (10:32→16:50)
--- NOTE | 2022-06-06 10:46 | PCM.PROGNOTE ---
Subjective Subjective Afebrile VSS-heart rate was elevated throughout yesterday but today her heart rate is down to 104. Blood pressure is 107/68. Maintaining appropriate oxygen saturation on RA-100% Oral intake is 750 cc for yesterday. Fluid balance yesterday was +1035 and overnight she is positive for 50. Discussed with nursing - no problems that need addressed Reviewed the PT/OT/ST notes Medication list reviewed. all lab was personally reviewed. WBC count today is 16.5 with 72% neutrophils and 2.1% immature granulocytes. Platelet count is mildly elevated at 523,000. The blood was drawn from her port today and I don't think lab wasted enough blood......HGB was 6.4. the recheck is 7.5. Sodium is normal at 138 today after IV normal saline was started. Serum bicarb is elevated at 33. Potassium is 3.5 today and the BUN is 38 with a creatinine of 0.3 which is stable. Magnesium is normal at 2.1 following supplementation. Transaminases and alkaline phosphatase are still elevated but are trending down from yesterday's results. Procalcitonin is still elevated at 0.41. Objective Data Objective Data Vital Signs: Vital Signs Temp Pulse Resp BP Pulse Ox O2 Del Method 97.3 F L 104 H 17 107/68 100 Room Air 06/06/22 07:26 06/06/22 07:26 06/06/22 07:26 06/06/22 07:26 06/06/22 07:26 06/06/22 07:26 Oxygen Delivery Method Room Air Weight: 94 lb 2.198 oz Body Mass Index (BMI) 29.5 Intake & Output: Intake and Output for Last 24 Hours 06/04/22 06/05/22 06/06/22 23:59 23:59 23:59 Intake Total 1120 / 1120 1585 / 1585 1000 / 1000 Output Total 1950 / 1950 550 / 550 550 / 550 Balance -830 / -830 1035 / 1035 450 / 450 Medical Nutrition Assessment Dietitian: Malnutrition Criteria Met Start: 05/29/22 08:26 Freq: Status: Active Protocol: Document 06/01/22 13:02 AG (Rec: 06/01/22 13:44 AG [id number]) Nutrition Malnutrition Evidence of Malnutrition Exists Yes Malnutrition (severe): Chronic Evidenced By Suboptimal Energy Intake ( Severe),Weight Loss (Severe) Clinical Problem Chronic Disease or Condition Related Malnutrition Etiology Severe protein-calorie malnutrition in the context of chronic disease related to inadequate oral intake Signs/Symptoms as evidenced by ~11% wt loss x past 6 months and oral intake meeting less than 50% estimated nutrition needs Status Active Problem Recommendation Dietitian Recommendations/Changes 1) Fiber Restricted diet- soft & bite sized as appropriate. 2) Will adjust Pivot 1.5 via NGT to nocturnal feeds- new goal rate is 45mL/hour for 12 hours w/ 60mL H2O flush every 4 hours to provide 810 calories, 50 g protein, and 765mL fluid/day which meets about 50-60% of estimated calorie/protein needs. Will monitor PO intake, wt, and adjust nutrition support as indicated. 3) Continue 120ml ensure plus high protein 4 x/day w/ medpass or premier protein drinks from home. 4) Adrian BID for wound healing . 5) Weight 3 times per week as ordered. Lab / Micro Data Result Diagrams: 06/06/22 08:25 06/06/22 06:13 Labs: Laboratory Results - last 24 hr 06/05/22 08:15: ESR 40 H 06/05/22 08:15: C-React Prot Ext Range 9.23 H 06/05/22 13:50: Urine Osmolality 309 06/05/22 15:45: Serum Osmolality 292 06/05/22 15:45: Procalcitonin 0.43 H 06/06/22 06:13: WBC 16.5 H, RBC 2.14 L, Hgb 6.4 L, Hct 20.2 L, MCV 94.4, MCH 29.9, MCHC 31.7 L, RDW Std Deviation 60.3 H, RDW Coeff of Seema 18.8 H, Plt Count 523 H, MPV 8.8, Immature Gran % (Auto) 2.100 H, Neut % (Auto) 72.1 H, Lymph % (Auto) 12.3 L, [place] % (Auto) 12.5 H, Eos % (Auto) 0.5, Baso % (Auto) 0.5, Absolute Neuts (auto) 11.9 H, Absolute Lymphs (auto) 2.04, Nucleated RBC % 0, Differential Comment SCANNED, Diff Path Review May betzy Platelet Estimate MOD INC 06/06/22 06:13: Sodium 138, Potassium 3.5, Chloride 102, Carbon Dioxide 33.0 H, Anion Gap 3 L, BUN 38 H, Creatinine 0.30 L, Estim Creat Clear Calc 162.99, Est GFR (MDRD) Af Amer 316, Est GFR (MDRD) Non-Af 261, BUN/Creatinine Ratio 128.4 H, Glucose 145 H, Calcium 8.4 L, Magnesium 2.1, Total Bilirubin 0.20, AST 65 H, ALT 96 H, Alkaline Phosphatase 171 H, Total Protein 5.6 L, Albumin 2.5 L, Globulin 3.1, Albumin/Globulin Ratio 0.8 L 06/06/22 06:13: Procalcitonin 0.41 H 06/06/22 08:25: Hgb 7.5 L, Hct 23.5 L Micro: Microbiology 05/31/22 09:40 Stool Stool Occult Blood (MARYANN) - Final Physical Exam Const alert, oriented x3 and no apparent distress Constitutional Narrative: pleasant and talkative. General Appearance: cooperative Resp clear to auscultation bilaterally Cardio regular rate, regular rhythm, no murmurs and no gallops Rate: tachycardic GI normal to inspection, nondistended, normoactive bowel sounds, soft to palpation and non-tender Skin Rashes: no rashes Assessment & Plan Assessment/Plan (1) Debility: (2) Edema due to hypoalbuminemia: (3) Abnormal LFTs: (4) Hyponatremia: (5) Acute on chronic anemia: (6) Metastatic breast cancer: (7) Muscular dystrophy: (8) Severe malnutrition: (9) Ulcer of right lower extremity with fat layer exposed: (10) Thrombocytosis: PLAN: Plan 1. Check orthostatic vital signs 2. Continue therapy 3. I have to question whether I can trust the lab results from today since they were drawn from the port and they likely did not withdraw enough blood off before obtaining the blood for this morning because the HGB was diluted. Are the LFT's diluted as well? Will repeat on . Stool on 05/31/22 was negative for blood. Iron studies in early April did not show iron deficiency. Bili is not elevated so I doubt she is hemolyzing. 4. Recheck procalcitonin, CMP, CBC with differential, magnesium and phosphorus on . No antibiotics yet. Charges/Coding Visit Charges Inpatient E&M: 46448 Subs Hosp L2
[2022-06-06] MEDS: Menthol/Lanolin/Calamine/Znox 113 GM Tube 1 APPLIC TOPICAL (10:47)
[2022-06-06 10:50] VITALS: BP 109/71; BP 123/72; PULSE 100; PULSE 98
[2022-06-06] MEDS: 0.9% Normal Saline 1,000 ML 75 ML IV (12:17)
[2022-06-06 12:37] LABS: Pathologist Review Reviewed
--- NOTE | 2022-06-06 14:11 | CASEMGMT ---
Social Work Updated pt that insurance approved with NRD 06/12. Deloris Lemus, REGISTERED RADIOGRAPHER BOAT HOIST OPERATOR
[2022-06-06 15:31] LABS: Pathologist Review Reviewed
[2022-06-06] MEDS: traMADol 50 MG Tablet 25 MG PO (18:14)
[2022-06-06 21:50] VITALS: BP 116/74; PULSE 108; PULSE 112; RESP 16; TEMP 36.4; O2SAT 100; O2SAT 95
[2022-06-07] MEDS: 0.9% Normal Saline 1,000 ML 75 ML IV ×2 (01:55→22:15)
[2022-06-07] MEDS: Potassium Chloride Oral Soln 20 MEQ/15 ML UDC PO (06:32)
[2022-06-07] MEDS: Loperamide 2 MG Capsule 4 MG PO (06:33)
[2022-06-07 07:47] LABS: ALB/GLOB Ratio 0.8 RATIO (0.9-2.4); AST(SGOT) 38 U/L (15-37); Alanine Aminotransfer ALT/SGPT 70 U/L (13-56); Albumin, Serum 2.5 g/dL (3.2-5.0); Alkaline Phosphatase 158 U/L (45-117); Anion Gap 3 (5-15); BUN 27 mg/dL (7-18); BUN/Creat Ratio 104.7 RATIO (10-20); Calcium,Total 8.7 mg/dL (8.5-10.1); Chloride 107 mmol/L (98-107); Creatinine, Serum 0.26 mg/dL (0.55-1.02); EST Glomerular Filtration Rate 306 mL/min (>60); Est Glom Filt Rate - Afr Amer 371 mL/min (>60); Estimated Creatinine Clearance 185.86 ml/min; Globulin 3.2 g/dL (2.2-4.2); Glucose 119 mg/dL (74-106); Magnesium 1.2 mg/dL (1.6-2.6); Phosphorus 3.2 mg/dL (2.5-4.9); Protein, Total 5.7 g/dL (6.4-8.2); Sodium Level 139 mmol/L (136-145)
[2022-06-07 07:57] VITALS: BP 107/67; PULSE 111; RESP 16; TEMP 36.5; O2SAT 100
[2022-06-07] MEDS: Ascorbic Acid 500 MG Tablet PO ×2 (08:28→17:52)
[2022-06-07] MEDS: Cholecalciferol (VIT D3) 25 MCG TABLET (1,000 UNITS) 50 MCG PO (08:28)
[2022-06-07] MEDS: Menthol/Lanolin/Calamine/Znox 113 GM Tube 1 APPLIC TOPICAL (08:29)
[2022-06-07] MEDS: Pantoprazole Sodium 20 MG Tablet PO ×2 (08:29→20:00)
[2022-06-07] MEDS: DULoxetine Hcl 20 MG Capsule PO (08:29)
[2022-06-07] MEDS: Vitamin E 400 UNITS Capsule PO (08:29)
[2022-06-07] MEDS: Lidocaine 4% 50 ML Bottle TOPICAL (12:08)
[2022-06-07] MEDS: Morphine 2 MG/ML Syringe IV ×2 (12:09→12:54)
[2022-06-07] MEDS: 0.9% Saline Lock 10 ML Syringe IV (12:16)
--- NOTE | 2022-06-07 12:55 | PCM.OP.PRO ---
Assessment & Plan Assessment/Plan (1) Debility: (2) Severe malnutrition: (3) Ulcer of right lower extremity with fat layer exposed: (4) Hypomagnesemia: PLAN: Plan 1. Continue therapy 2. The wound on the right lower extremity was debrided and the dressing has been changed to Terence once daily. 3. Give 4 g of magnesium IV today and tomorrow start magnesium chloride 128 mg twice daily 4. Hold potassium today and recheck a potassium level in the morning. 5. CBC with differential and procalcitonin in the a.m. Procedure Report Date of Procedure: 06/07/22 Debridement of wound R medial calf. The wound was anesthetized with gauze soaked in 4% lidocaine for 10 minutes and she was given 2 mg of IV MS X 2 for pain. A #7 curette was used to debride the wound. There is new epithelialization at the margins around the entire wound. There is no odor and no purulent DC. There is no periwound erythema. The wound is 75% granulating and 25% slough (which was debrided off the wound with the curette). Bleeding was controlled with pressure. Both of the bx sites are filling in and neither has any slough now. There is no eschar. Bere tolerated the procedure well with very little discomfort. The wound was covered by terence and then moistened gauze pads were used to cover the terence followed by a gauze wrap and then an CAMERON wrap. There is no edema of either LE. All lab from this morning was personally reviewed. Sodium is 139 and the potassium is 5.0 today. Serum bicarb is down to 29 with hydration and the BUN is 27, down from 38 with a creatinine of 0.26 which is stable. Phosphorus is normal but the magnesium is low at 1.2. Transaminases are elevated and so is the alk phos but they are trending down. Procedures Integumentary [id number]: [id number] Archana subq tissue 20 sq cm/<
[2022-06-07] MEDS: Magnesium Sulfate 4gm/100mL 4 GM/100 ML IV.SOLN. IV (14:00)
[2022-06-07] MEDS: Pivot 1.5 Cal 1,000 ML 45 ML NG (17:52)
[2022-06-07] MEDS: Ondansetron ODT 4 MG Tablet 8 MG PO (18:37)
[2022-06-07 19:30] VITALS: PULSE 103; RESP 18
[2022-06-07 19:32] VITALS: BP 119/71; PULSE 103; RESP 18; TEMP 36.5; O2SAT 99
[2022-06-08] VITALS (11 sets, daily range): BP systolic 103–131; BP diastolic 61–81; PULSE 81–125; RESP 16–20; TEMP 36.3–37.2; O2SAT 96–100
[2022-06-08] MEDS: Loperamide 2 MG Capsule 4 MG PO (05:11)
[2022-06-08 05:23] LABS: Absolute Lymphocyte Count 1.56 X10^3/uL (0.83-4.51); Basophil# 0.04 X10^3/uL; Basophil% 0.4 % (0-1); Eosinophil# 0.02 X10^3/uL; Eosinophils% 0.2 % (0-5); Hematocrit 21.4 % (37-47); Hemoglobin 6.7 g/dL (12.0-15.0); Lymphocyte # 1.56 X10^3/ul (0.83-4.51); Lymphocyte % 14.3 % (19-41); Mean Corp Hgb Conc 31.3 g/dL (32-36); Mean Corpuscular Hgb 29.6 pg (27.0-32.0); Mean Corpuscular Volume 94.7 fL (81-99); Mean Platelet Vol. 8.4 fl (6.2-12.0); Monocyte# 1.28 X10^3/uL; Monocyte% 11.7 % (0-10); NRBC Flagged by Analyzer 0 % (0-5); Neutrophil # 7.97 X10^3/uL (2.7-7.7); Neutrophil % 72.8 % (47-70); POSITIVE MORPHOLOGY YES; Platelet Count 436 K/mm3 (150-450); RBC Distribution Width CV 19.8 % (11.6-14.6); RBC Distribution Width SD 65.7 fl (35.1-43.9); Red Blood Count 2.26 M/mm3 (4.2-5.4); White Blood Count 10.9 K/mm3 (4.4-11.0)
[2022-06-08 05:41] LABS: Potassium 3.7 mmol/L (3.5-5.1)
[2022-06-08 05:42] LABS: Differential Indicated SCAN CRITERIA MET
[2022-06-08 06:07] LABS: Anisocytosis 2+
[2022-06-08] MEDS: Ascorbic Acid 500 MG Tablet PO ×2 (08:33→17:46)
[2022-06-08] MEDS: Vitamin E 400 UNITS Capsule PO (08:33)
[2022-06-08] MEDS: Magnesium Chloride 64 MG Delay Rel.Tablet 128 MG PO ×2 (08:33→20:28)
[2022-06-08] MEDS: Cholecalciferol (VIT D3) 25 MCG TABLET (1,000 UNITS) 50 MCG PO (08:33)
[2022-06-08] MEDS: DULoxetine Hcl 20 MG Capsule PO (08:33)
[2022-06-08] MEDS: Pantoprazole Sodium 20 MG Tablet PO (08:33)
[2022-06-08 08:54] LABS: Procalcitonin 0.32 ng/mL (0.00-0.09)
--- NOTE | 2022-06-08 09:54 | PN_ITS ---
Subjective Subjective Afebrile VSS-still tachycardic. Over the past 48 hours the heart rate has ranged from 98-115. Blood pressure is stable. She denies lightheadedness but does feel she is more fatigued. Maintaining appropriate oxygen saturation on RA Oral intake has decreased over the past 24H. Fluid balance for the past 24 hours is +2386. Overnight it is +75. Discussed with nursing - no problems that need addressed Reviewed the PT/OT/ST notes Medication list reviewed. She had an emesis after dinner last night and today she does not feel like eating. She denies abd pain. Denies nausea currently. Tells me that she feels gassy and bubbly in the RLQ of the abd. The oral magnesium did not start until this AM. She has been taking Imodium 4 mg once daily for the past 3 days. She has had C DIFF in the past and she recently had 2 days Levaquin and 10 days of Merrem. She denies dysuria, cephalgia, shortness of breath, calf pain. Lab from this AM was personally reviewed. White blood cell count is down to 10.9 with 73% neutrophils and a normal immature granulocyte count. She has 2+ anisocytosis. Potassium is 3.7 today. Procalcitonin is down to 0.32. B12, folate and iron studies were all normal on 05/02/2022. Objective Data Objective Data Vital Signs: Vital Signs Temp Pulse Resp BP Pulse Ox O2 Del Method 98.2 F 115 H 16 103/61 98 Room Air 06/08/22 08:10 06/08/22 08:10 06/08/22 08:10 06/08/22 08:10 06/08/22 08:10 06/08/22 08:10 Oxygen Delivery Method Room Air Weight: 93 lb 14.671 oz Body Mass Index (BMI) 29.5 Intake & Output: Intake and Output for Last 24 Hours 06/06/22 06/07/22 06/08/22 23:59 23:59 23:59 Intake Total 1405 / 1405 3561 / 3561 725 / 725 Output Total 1300 / 1300 1175 / 1175 650 / 650 Balance 105 / 105 2386 / 2386 75 / 75 Medical Nutrition Assessment Dietitian: Malnutrition Criteria Met Start: 05/29/22 08:26 Freq: Status: Active Protocol: Document 06/01/22 13:02 AG (Rec: 06/01/22 13:44 AG [id number]) Nutrition Malnutrition Evidence of Malnutrition Exists Yes Malnutrition (severe): Chronic Evidenced By Suboptimal Energy Intake ( Severe),Weight Loss (Severe) Clinical Problem Chronic Disease or Condition Related Malnutrition Etiology Severe protein-calorie malnutrition in the context of chronic disease related to inadequate oral intake Signs/Symptoms as evidenced by ~11% wt loss x past 6 months and oral intake meeting less than 50% estimated nutrition needs Status Active Problem Recommendation Dietitian Recommendations/Changes 1) Fiber Restricted diet- soft & bite sized as appropriate. 2) Will adjust Pivot 1.5 via NGT to nocturnal feeds- new goal rate is 45mL/hour for 12 hours w/ 60mL H2O flush every 4 hours to provide 810 calories, 50 g protein, and 765mL fluid/day which meets about 50-60% of estimated calorie/protein needs. Will monitor PO intake, wt, and adjust nutrition support as indicated. 3) Continue 120ml ensure plus high protein 4 x/day w/ medpass or premier protein drinks from home. 4) Adrian BID for wound healing . 5) Weight 3 times per week as ordered. Lab / Micro Data Result Diagrams: 06/08/22 05:10 06/08/22 05:10 Labs: Laboratory Results - last 24 hr 06/08/22 05:10: WBC 10.9, RBC 2.26 L, Hgb 6.7 L, Hct 21.4 L, MCV 94.7, MCH 29.6, MCHC 31.3 L, RDW Std Deviation 65.7 H, RDW Coeff of Seema 19.8 H, Plt Count 436, MPV 8.4, Immature Gran % (Auto) 0.600, Neut % (Auto) 72.8 H, Lymph % (Auto) 14.3 L, [place] % (Auto) 11.7 H, Eos % (Auto) 0.2, Baso % (Auto) 0.4, Absolute Neuts (auto) 8.0 H, Absolute Lymphs (auto) 1.56, Nucleated RBC % 0, Anisocytosis 2+ 06/08/22 05:10: Procalcitonin 0.32 H 06/08/22 05:10: Potassium 3.7 Micro: Microbiology 05/31/22 09:40 Stool Stool Occult Blood (MARYANN) - Final Physical Exam Const alert, oriented x3 and no apparent distress Resp clear to auscultation bilaterally Effort and Inspection: Negative for tachypneic Cardio regular rhythm, no murmurs and no gallops Cardio Narrative: No ectopy Rate: tachycardic GI soft to palpation and non-tender GI Narrative: Mildly distended and a little tympanic. Mildly increased bowel sounds. No guarding with palpation. Extremity no calf tenderness General Extremity: Negative for edema Skin General Skin Exam: no breakdown Rashes: no rashes Assessment & Plan Assessment/Plan (1) Debility: (2) Severe malnutrition: (3) Ulcer of right lower extremity with fat layer exposed: (4) Hypomagnesemia: (5) Diarrhea: PLAN: Plan 1. Continue therapy 2. Type and cross for 2 units of packed red blood cells and transfuse today. Hold IV fluids for the transfusion. 3. Check a CDIFF and a hemoccult stool. It was negative the last time but, where is she losing blood? Or is she just not reticing? Will check a reticulocyte count 4. If the CDIFF and the hemoccult are negative will check enteric pathogen panel. 5. weight has decreased over the past few days about 4 lbs. I think we are keeping up with fluid loss for the most part. 6. Restart potassium 7. Acute abd films today Charges/Coding Visit Charges Inpatient E&M: 30386 Subs Hosp L2
--- NOTE | 2022-06-08 10:22 | RAD_ITS ---
STUDY: X-RAY - ABDOMEN/PELVIS REASON FOR EXAM: Female, 41 years old. Bloating and diarrhea TECHNIQUE: AP supine and upright views of the abdomen and pelvis. COMPARISON: Comparison is made with prior study dated 05/25/2022. FINDINGS: A feeding tube is in situ with the tip in the distal portion of the body of the stomach. Gas is seen throughout the colon down to the rectum. There is no demonstrated free abdominal air. The visualized liver, spleen and kidneys are grossly normal in size and morphology. Normal soft tissue structures. Levoscoliosis of the lumbar spine and dextroscoliosis of the thoracic spine. Prior scar fixation of the thoracic and lumbar vertebrae. RAD/Abd Inc Decub and/or Erect IMPRESSION: The tip of the feeding tube is in the distal portion of the body of the stomach. Electronically Signed: Michael Bal MD at 14:16 EST ,
--- NOTE | 2022-06-08 13:50 | CASEMGMT ---
Social Work IDT met with patient and friend/POA for Team meeting. Discussed patient's progress in PT/OT/SN. Educated to [facility] with [facility]D 06/12 and continued stay is not guaranteed with each review. Will ReTeam weekly. SW to coordinate DC needs. Will continue to follow. Deloris Lemus, CELESTE DRAMA DIRECTOR
[2022-06-08] MEDS: 0.9% Saline Lock 10 ML Syringe IV ×2 (14:26→17:45)
[2022-06-08] MEDS: 0.9% Normal Saline 1,000 ML 75 ML IV (14:46)
[2022-06-08] MEDS: Pivot 1.5 Cal 1,000 ML 45 ML NG (17:45)
--- NOTE | 2022-06-08 19:09 | NURSING ---
Dr Byrd to unit to talk with pt. Plan for colonoscopy tomorrow and peg tube placement.
--- NOTE | 2022-06-08 19:38 | CON.PCM.GI_ITS ---
HPI Consult Data Date of Consult: 06/08/22 HPI Narrative Reason for Consultation: Anemia , colitis, diarrhea and the need for a feeding tube HPI Narrative: AMINA ESPOSITO, is a 41 F with?diagnosed January 18, 2022 with clinical stage IIB (T2,N1, M0) invasive ductal carcinoma of the left breast, nuclear grade 2-3,ER positive (over 95% moderate), TN positive (over 95% strong) HER2/edgardo overexpressed 3+, Ki-67 +40%. Genetic testing (Qiniu) showed no known deleterious mutation. PET/CT obtained February 22, 2022 for initial staging showed no evidence for distant metastatic disease. She began neoadjuvant systemic therapy with docetaxel, carboplatin, trastuzumab and pertuzumab on February 28, 2022.?She developed rather abrupt dyspnea and ort hopnea within 24 hours of cycle 2 on March 21 2022. ? ER evaluation did not suggest cardiac failure, CTA showed no evidence of PE but there were multiple bilateral nodules concerning for metastatic disease.? Nodules were too small to biopsy by CT guidance and resolved spontaneously without a specific diagnosis being made a week later. Developed a right lower extremity wound 04/04/22 and follows with the [facility] wound center. Main toxicities encountered with chemotherapy have been GI, with mucositis, diarrhea, electrolyte imbalance (hypokalemia and hypomagnesemia).? As of cycle 3 Perjeta was discontinued and GI symptoms improved modestly. Her care has been complicated by suboptimal adherence to the use of supportive medications at home, primarily antiemetics, antidiarrheals, and oral electrolyte replacement. This has led to dehydration and tachycardia requiring frequent interventions with IV fluids and electrolytes in the [facility] infusion suite and weekly office visits. She received cycle 4 docetaxel, carboplatin, trastuzumab on 05/10/22. The patient presented to [facility] ED on 05/22/22 with c/o nausea and RLQ pain.? Labs showed WBC 47.7, Hgb 8.3 and plt 158, potassium 2.2, calcium 7.4, magnesium 0.9. ?CT abdomen with contrast showed 3 cm phlegmon lateral to the descending colon with invasion of the anterior abd wall. She was subsequently admitted for management of acute colitis. Began broad spectrum antibiotics, IV hydration and correction of electrolyte aberrancies.? Surgery consulted and advised continuation of IV antibiotics, remain NPO, and colonoscopy in the near future. ?Patient was found to have Hgb 5.2 this morning.? 2 units of PRBCs have been ordered by primary team.?? I was asked to see her due to the fact that she states she is not eating very well and is getting fed via Dobbhoff tube. I was consulted for PEG tube placement. I was also asked to see her for abnormal CT scan that it showed some colitis in the setting of diarrhea. [facility] Medical History (Updated 06/05/22 @ 17:[address] Anabela Disla, DO) Alcohol use Anxiety Arthritis Arthrogryposis Braces as ambulation aid Cancer CINV (chemotherapy-induced nausea and vomiting) CPAP (continuous positive airway pressure) dependence Dehydration Depression Diarrhea Diarrhea due to drug Elevated C-reactive protein (CRP) (12/26/21) Encounter for chemotherapy management Encounter for education Heartburn History of diverticulitis History of echocardiogram History of edema History of irregular heartbeat Hypokalemia Hypomagnesemia Localized peritonitis Lung nodule, multiple Mucositis (ulcerative) due to antineoplastic therapy Mucositis (ulcerative) due to antineoplastic therapy Nausea Non-smoker Oral candidiasis Phlegmonous peritonitis Port-A-Cath in place Sepsis without acute organ dysfunction Sleep apnea Thrombocytosis Thrombocytosis Wears glasses Home Medications cholecalciferol (vitamin D3) 25 mcg (1,000 unit) capsule 2,000 unit PO DAILY Supplement 01/25/22 [History Last Taken Unknown] duloxetine 20 mg capsule,delayed release 20 mg PO DAILY Depression 01/25/22 [History Last Taken Unknown] lidocaine-prilocaine 2.5 %-2.5 % topical cream 1 applic topical ONCE PRN port ac cess 30 days #30 grams 02/23/22 [Rx Last Taken Unknown] prochlorperazine maleate 10 mg tablet 10 mg PO Q6H PRN nausea and vomiting #30 tabs 02/23/22 [Rx Last Taken Unknown] Magnesium Malate 750 mg PO QHS Supplement 02/28/22 [History Last Taken Unknown] ondansetron 8 mg disintegrating tablet 8 mg PO Q8H PRN nausea and vomiting #30 tabs 04/18/22 [Rx Last Taken Unknown] MAGIC MOUTH WASH (BMX) 180 mL suspension 15 ml PO .Q6HR Mouth sores 05/22/22 [History Last Taken Unknown] scopolamine base 1 mg over 3 days transdermal patch 1 patch transdermal Q72H Nausea 05/22/22 [History Last Taken Unknown] acetaminophen 650 mg/20.3 mL oral solution 1,000 mg (31.2308 mL) PO Q8H PRN Pain 1-10 Or Fever #0 mL 05/28/22 [Rx Last Taken Unknown] food supplemt, lactose-reduced 0.08 gram-1.5 kcal/mL oral liquid (Ensure Plus High Protein) 120 ml PO 4X/DAY Supplement 05/28/22 [History Last Taken Unknown] loperamide 2 mg capsule 4 mg PO Q4H PRN PRN Diarrhea #30 caps 05/28/22 [Rx Last Taken Unknown] menthol 0.44 %-zinc oxide 20.6 % topical ointment (Calmoseptine) 1 applic topical TID Skin protection 05/28/22 [History Last Taken Unknown] meropenem 1 gram intravenous solution 1 g IV Q8 Antibiotic 05/28/22 [History Last Taken Unknown] midodrine 5 mg tablet 10 mg PO TIDCM BP 05/28/22 [History Last Taken Unknown] pantoprazole 40 mg tablet,delayed release 40 mg PO DAILY GERD 05/28/22 [History Last Taken Unknown] potassium chloride 20 mEq/15 mL oral liquid 20 meq PO TID Supplement 05/28/22 [History Last Taken Unknown] sennosides 8.6 mg-docusate sodium 50 mg tablet (Stool Softener-Stimulant Laxative) 2 tab PO BID PRN PRN Constipation #0 tabs 05/28/22 [Rx Last Taken Unknown] sodium chloride 0.9 % (flush) (Normal Saline Flush 0.9 % injection syringe) 10 - 40 ml IV UD PRN IV flush 05/28/22 [History Last Taken Unknown] Allergy/AdvReac Type Severity Reaction Status Date / Time kiwi Allergy Mild Anaphylaxis Verified 05/22/22 11:58 Penicillins Allergy Mild Anaphylaxis Verified 05/22/22 11:58 Gadolinium-MRI Contrast AdvReac Shortness Verified 05/25/22 17:06 Medium of breath [contrast dye] Family History Mother Diabetes Hypertension High cholesterol Thyroid disorder Uncle Cancer non-hodgkins lymphoma Grandfather Heart disease Grandmother Heart disease Brother Hypertension Unknown Breast cancer mother had 2 cousins with aggressive breast cancer Unknown Thyroid cancer maternal cousin Other Arthritis Depression Surgical History H/O release of tendon History of lymph node biopsy History of spinal fusion Social History household members: family current occupational status: employed current occupation: [employer] Smoking Status: Never smoker alcohol intake: current alcohol intake frequency: holidays/special occasions only details: occasional substance use type: does not use ROS Constitutional Constitutional: Denies chills, fever(s) or weight gain ENT HEENT: Denies headache(s), nasal congestion or nasal discharge Cardiovascular Cardiovascular: Reports edema; Denies chest pain or palpitations Respiratory/Chest Respiratory/Chest: Denies cough, excessive phlegm production or shortness of breath with exertion Gastrointestinal Gastrointestinal: Denies abdominal pain, nausea or vomiting Genitourinary Genitourinary: Denies dysuria Musculoskeletal Musculoskeletal: Denies joint pain or joint swelling Integumentary Integumentary: Denies rash or wounds Neurologic Neurologic: Denies focal weakness, numbness or tingling Psychiatric Psychiatric: Denies anxiety, auditory hallucinations, depression, homicidal ideation or suicidal ideation Physical Exam Const alert, oriented x3 and no apparent distress Resp clear to auscultation bilaterally Effort and Inspection: Negative for tachypneic Cardio regular rhythm, no murmurs and no gallops Cardio Narrative: No ectopy Rate: tachycardic GI soft to palpation and non-tender GI Narrative: Mildly distended and a little tympanic. Mildly increased bowel sounds. No guarding with palpation. Extremity no calf tenderness General Extremity: Negative for edema Skin General Skin Exam: no breakdown Rashes: no rashes Medical Records Data Medical Nutrition Assessment Dietitian: Malnutrition Criteria Met Start: 05/29/22 08:26 Freq: Status: Active Protocol: Document 06/01/22 13:02 AG (Rec: 06/01/22 13:44 [id number]) Nutrition Malnutrition Evidence of Malnutrition Exists Yes Malnutrition (severe): Chronic Evidenced By Suboptimal Energy Intake ( Severe),Weight Loss (Severe) Clinical Problem Chronic Disease or Condition Related Malnutrition Etiology Severe protein-calorie malnutrition in the context of chronic disease related to inadequate oral intake Signs/Symptoms as evidenced by ~11% wt loss x past 6 months and oral intake meeting less than 50% estimated nutrition needs Status Active Problem Recommendation Dietitian Recommendations/Changes 1) Fiber Restricted diet- soft & bite sized as appropriate. 2) Will adjust Pivot 1.5 via NGT to nocturnal feeds- new goal rate is 45mL/hour for 12 hours w/ 60mL H2O flush every 4 hours to provide 810 calories, 50 g protein, and 765mL fluid/day which meets about 50-60% of estimated calorie/protein needs. Will monitor PO intake, wt, and adjust nutrition support as indicated. 3) Continue 120ml ensure plus high protein 4 x/day w/ medpass or premier protein drinks from home. 4) Adrian BID for wound healing . 5) Weight 3 times per week as ordered. Lab / Micro Data Result Diagrams: 06/08/22 05:10 06/08/22 05:10 Labs: Laboratory Results - last 24 hr 06/08/22 05:10: WBC 10.9, RBC 2.26 L, Hgb 6.7 L, Hct 21.4 L, MCV 94.7, MCH 29.6, MCHC 31.3 L, RDW Std Deviation 65.7 H, RDW Coeff of Seema 19.8 H, Plt Count 436, MPV 8.4, Immature Gran % (Auto) 0.600, Neut % (Auto) 72.8 H, Lymph % (Auto) 14.3 L, [place] % (Auto) 11.7 H, Eos % (Auto) 0.2, Baso % (Auto) 0.4, Absolute Neuts (auto) 8.0 H, Absolute Lymphs (auto) 1.56, Nucleated RBC % 0, Anisocytosis 2+ 06/08/22 05:10: Procalcitonin 0.32 H 06/08/22 05:10: Potassium 3.7 06/08/22 14:24: Blood Type O POSITIVE, Antibody Screen NEGATIVE, Crossmatch See Detail Micro: Microbiology 06/08/22 11:08 Stool C. difficile DNA Amplification - Final 06/08/22 11:08 Stool Stool Occult Blood (MARYANN) - Final Occult Blood Positive Radiology Impression Abdomen X-Ray 06/08/22 10:22 IMPRESSION: The tip of the feeding tube is in the distal portion of the body of the stomach. Electronically Signed: Michael Bal MD at 14:16 EST , Chest CT 06/08/22 20:17 IMPRESSION: Small right pleural effusion with right basilar atelectasis. Small pericardial effusion. Electronically Signed: Michael Bal MD at 12:23 EST , Assessment & Plan Assessment/Plan (1) Severe malnutrition: PLAN: Severe malnutrition in the setting of breast cancer in a abscess status post drainage. Recommend to remove Dobbhoff tube in place PEG tube. (2) Diarrhea: PLAN: She should undergo evaluation of the colon for immunotherapy induced colitis. There is also is case reports of inflammatory bowel disease starting because of immunotherapy in the setting of treatment for breast cancer. She will undergo colonoscopy. She was explained alternatives, risk, benefits including outstanding bleeding, infection, sepsis, perforation, need emergency or . She will have an ASA of 3. Charges/Coding Visit Charges Inpatient E&M: 83245 SNF Init L2
[2022-06-08] MEDS: Bisacodyl 5 MG Tablet 20 MG PO (20:12)
--- NOTE | 2022-06-08 20:17 | CT_ITS ---
STUDY: CT CHEST WITHOUT CONTRAST REASON FOR EXAM: Female, 41 years old. Breast cancer w/u--?lung nodules -- previous lung nodules ? resolved RADIATION DOSAGE (If Supplied By Facility): CTDIvol = ( 5.17 ) mGy, DLP = ( 185.08 ) mGycm TECHNIQUE: Transaxial imaging was performed without the administration of intravenous contrast material. Individualized dose optimization techniques were used for this CT. COMPARISON: Comparison is made with prior examination dated 05/23/2022. FINDINGS: CHEST Stable small right pleural effusion with basilar atelectasis is more prominent on the right side. Small anterior pericardial effusion. Normal mediastinum. Normal hilar regions. Normal unenhanced pulmonary arteries. Normal aorta arch and descending thoracic aorta. Marked in degree of dextroscoliosis. Multilevel fusion with interpedicular screw and scar fixation of the thoracic and lumbar spines. Nasogastric tube is seen with the tip in the stomach. CT/Chest without Contrast IMPRESSION: Small right pleural effusion with right basilar atelectasis. Small pericardial effusion. Electronically Signed: Michael Bal MD at 12:23 EST ,
[2022-06-08] MEDS: traMADol 50 MG Tablet 25 MG PO (20:24)
[2022-06-08] MEDS: Pantoprazole Sodium 20 MG Tablet 40 MG PO (20:27)
[2022-06-08] MEDS: Polyethylene Glycol 3350 BOWEL PREP PO (20:30)
--- NOTE | 2022-06-08 23:00 | NURSING ---
HALF OF CLEARFAST MIXTURE (32 OZ) HAS BEEN GIVEN AT THIS TIME AND PT BECOMES NAUSEOUS AFTER ROLLING OFF OF BEDPAN AND VOMITS UP APPROX 500 ML OF GREEN TINGED LIQUID. DR CERVANTES NOTIFIED VIA PHONE THAT PT HAS VOMITED UP LARGE AMT. ADVISED TO CONTINUE AND COMPLETE CLEARFAST BOWEL PREP.
[2022-06-09] VITALS (10 sets, daily range): BP systolic 84–127; BP diastolic 52–88; PULSE 81–119; RESP 12–20; TEMP 36.1–37.1; O2SAT 95–100
--- NOTE | 2022-06-09 | COLBX_PTH ---
PATIENT: AMINA ESPOSITO LOC: RU U#:[id number] AGE/SX: 41/F ROOM: 407 RE05/28/[address]: Dr. Anabela Disla DO : 1980 BED: 1 DIS: 06/27/2022 SPEC #: [id number] RECD: 06/09/22 18:00 STATUS: DANYELLE REPetar #: [id number] ABBY: 06/09/22 00:[address]: Parth Byrd DEPT: SURGICAL PATHOLOGY RECD BY: Dwaine Oliva ENTERED: 06/12/22 11:27 SP TYPE: COLON BX OTHR DR: DO Dr. Jam Gutierres MD Dr. Robert Leininger, MD Dr. Tai Chi Kwok, MD Tissues: Duodenum, NOS Procedures: Surgery Specimen Level IV Comments: @ Ordering doctor for SUIV edited from to @ by GREGORIA at 06/12/22 1522 @ Submitting doctor edited from to @ by BARBYOD at 06/12/22 1522 HEADER OPERATION: Colonoscopy, EGD ([facility] [place]) with PEG tube PRE-OP DIAGNOSIS: Anemia, colitis, diarrhea and need for PEG tube TISSUE SUBMITTED: Duodenal ulcer biopsy MICROSCOPIC DIAGNOSIS Duodenal ulcer, biopsy: Fragments of duodenal mucosa with nonspecific chronic inflammation and Nicanor gland hyperplasia. DONNELL:silvia 06/13/2022 MICROSCOPIC DESCRIPTION Slides are reviewed. GROSS DESCRIPTION Received in fixative is one container labeled with the patient's name and designated duodenal ulcer biopsy. The specimen consists of two irregular fragments of light miller soft tissue that in aggregate measure 0.7 x 0.2 x 0.1 cm. The specimen is totally submitted in one cassette. / DONNELL:silvia 06/12/2022 TC:3 CPT: 26051
[2022-06-09] MEDS: Ondansetron ODT 4 MG Tablet 8 MG PO (00:45)
--- NOTE | 2022-06-09 01:00 | NURSING ---
REMAINDER OF BOWEL PREP HAS BEEN GIVEN TO PT, SLOWLY, SHE CONTINUES TO FEEL NAUSEOUS MULTIPLE TIMES AND ZOFRAN GIVEN TO PREVENT FURTHER VOMITING.
[2022-06-09] MEDS: 0.9% Normal Saline 1,000 ML 120 ML IV ×3 (02:22→18:51)
[2022-06-09 08:20] LABS: Hematocrit 32.9 % (37-47); Hemoglobin 11.3 g/dL (12.0-15.0)
--- NOTE | 2022-06-09 11:02 | PCM.PROGNOTE ---
Subjective Subjective Afebrile VSS-heart rate is in the range of 81-97 today. Blood pressure is stable. Heart rate has improved with hydration and blood transfusion. Maintaining appropriate oxygen saturation on RA Fluid balance yesterday was +84.75. She had 5284 in and 5200 out (3650 in stool) Discussed with nursing - no problems that need addressed Reviewed the PT/OT notes Medication list reviewed. I reviewed Dr. Byrd's consult and appreciate his input. Patient will have a colonoscopy today. CT chest yesterday showed no evidence of metastatic disease. There was a small right pleural effusion with some atelectasis. There was also a small amount of anterior pericardial effusion. Hemoglobin today is 11.3 today following transfusion of 2 units of packed red blood cells. Objective Data Objective Data Vital Signs: Vital Signs Temp Pulse Resp BP Pulse Ox O2 Del Method 98.7 F 81 14 112/75 95 Room Air 06/09/22 07:16 06/09/22 07:16 06/09/22 07:16 06/09/22 07:16 06/09/22 07:16 06/09/22 07:16 Oxygen Delivery Method Room Air Weight: 93 lb 9.6 oz Body Mass Index (BMI) 29.5 Intake & Output: Intake and Output for Last 24 Hours 06/07/22 06/08/22 06/09/22 23:59 23:59 23:59 Intake Total 3561 / 3561 3713.75 / 3713.75 2356 / 2356 Output Total 1175 / 1175 3350 / 3350 2500 / 2500 Balance 2386 / 2386 363.75 / 363.75 -144 / -144 Medical Nutrition Assessment Dietitian: Malnutrition Criteria Met Start: 05/29/22 08:26 Freq: Status: Active Protocol: Document 06/01/22 13:02 AG (Rec: 06/01/22 13:44 [id number]) Nutrition Malnutrition Evidence of Malnutrition Exists Yes Malnutrition (severe): Chronic Evidenced By Suboptimal Energy Intake ( Severe),Weight Loss (Severe) Clinical Problem Chronic Disease or Condition Related Malnutrition Etiology Severe protein-calorie malnutrition in the context of chronic disease related to inadequate oral intake Signs/Symptoms as evidenced by ~11% wt loss x past 6 months and oral intake meeting less than 50% estimated nutrition needs Status Active Problem Recommendation Dietitian Recommendations/Changes 1) Fiber Restricted diet- soft & bite sized as appropriate. 2) Will adjust Pivot 1.5 via NGT to nocturnal feeds- new goal rate is 45mL/hour for 12 hours w/ 60mL H2O flush every 4 hours to provide 810 calories, 50 g protein, and 765mL fluid/day which meets about 50-60% of estimated calorie/protein needs. Will monitor PO intake, wt, and adjust nutrition support as indicated. 3) Continue 120ml ensure plus high protein 4 x/day w/ medpass or premier protein drinks from home. 4) Adrian BID for wound healing . 5) Weight 3 times per week as ordered. Lab / Micro Data Result Diagrams: 06/10/22 06:15 06/10/22 06:15 Labs: Laboratory Results - last 24 hr 06/08/22 14:24: Blood Type O POSITIVE, Antibody Screen NEGATIVE, Crossmatch See Detail 06/09/22 08:00: Hgb 11.3 L, Hct 32.9 L Micro: Microbiology 06/08/22 19:45 Stool Stool Lactoferrin - Final 06/08/22 11:08 Stool C. difficile DNA Amplification - Final 06/08/22 11:08 Stool Stool Occult Blood (MARYANN) - Final Occult Blood Positive 05/31/22 09:40 Stool Stool Occult Blood (MARYANN) - Final Radiography Diagnostic Testing: Radiology Impression Abdomen X-Ray 06/08/22 10:22 IMPRESSION: The tip of the feeding tube is in the distal portion of the body of the stomach. Electronically Signed: Michael Bal MD at 14:16 EST , Chest CT 06/08/22 20:17 IMPRESSION: Small right pleural effusion with right basilar atelectasis. Small pericardial effusion. Electronically Signed: Michael Bal MD at 12:23 EST , Physical Exam Const alert General Appearance: cooperative Cardio regular rate, regular rhythm and no gallops Rate: tachycardic GI normal to inspection, nondistended, normoactive bowel sounds, soft to palpation and non-tender Extremity General Extremity: Negative for edema Skin General Skin Exam: no breakdown Rashes: no rashes Psych Psych Narrative: somewhat anxious today about the procedures scheduled. I was able to answer her questions and she seemed a little relieved. Assessment & Plan Assessment/Plan (1) Debility: (2) Severe malnutrition: (3) Ulcer of right lower extremity with fat layer exposed: PLAN: Continues to improve with debridement every other day, application of Lilibeth and improved nutrition. (4) Hypomagnesemia: (5) Diarrhea: PLAN: The stool has been very loose with more frequent stools as well.....I suspect this is due to the GIB from the multiple duodenal ulcers. (6) PEG (percutaneous endoscopic gastrostomy) status: PLAN: Will discuss bolus feedings vs continuous feeding at night with the technology sales consultant. (7) History of colonoscopy: PLAN: Diverticulosis throughout the entire colon. Likely etiology of the intraabdominal abscess is a perforated tic......had been constipated as OP. Will need to discuss with Dr. Osorio if OK to give Metamucil to prevent constipation. (8) Duodenal ulcer disease: PLAN: S/P Argon laser coagulation for visible vessel in the duodenum. Currently on Protonix 40 mg p.o. twice daily. This will continue for 12 weeks and at that time Dr. Byrd would like to see her for follow-up EGD for surveillance. (9) Diverticulosis: PLAN: Plan 1. Continue therapy. 2. Debride the wound again tomorrow and continue Lilibeth. 3. Recheck lab in the a.m. Charges/Coding Visit Charges Inpatient E&M: 06954 Subs Hosp L2
--- NOTE | 2022-06-09 15:00 | NURSING ---
Patient taken down to surgery at this time, family present.
--- NOTE | 2022-06-09 17:14 | OP.EGD_ITS ---
Patient Name: Bere Godinez Procedure Date: 06/09/2022 4:20 PM Date of : 1980 Age: 41 Procedure: Upper GI endoscopy Indications: Iron deficiency anemia, Dysphagia Providers: Parth Byrd DO Medicines: Monitored Anesthesia Care Patient Profile: This is a 41 year old female. Refer to note in patient chart for documentation of history and physical. Patient has symptoms of acute dysphagia and acute nausea. Complications: No immediate complications. Procedure: Pre-Anesthesia Assessment: - Prior to the procedure, a History and Physical was performed, and patient medications and allergies were reviewed. The patient is competent. The risks and benefits of the procedure and the sedation options and risks were discussed with the patient. All questions were answered and informed consent was obtained. Patient identification and proposed procedure were verified by the physician. Mental Status Examination: alert and oriented. Airway Examination: normal oropharyngeal airway and neck mobility. Respiratory Examination: clear to auscultation. CV Examination: normal. Prophylactic Antibiotics: The patient does not require prophylactic antibiotics. Prior Anticoagulants: The patient has taken no previous anticoagulant or antiplatelet agents. After reviewing the risks and benefits, the patient was deemed in satisfactory condition to undergo the procedure. The anesthesia plan was to use minimal sedation / analgesia (anxiolysis). Immediately prior to administration of medications, the patient was re-assessed for adequacy to receive sedatives. The heart rate, respiratory rate, oxygen saturations, blood pressure, adequacy of pulmonary ventilation, and response to care were monitored throughout the procedure. The physical status of the patient was re-assessed after the procedure. After obtaining informed consent, the endoscope was passed under direct vision. Throughout the procedure, the patient's blood pressure, pulse, and oxygen saturations were monitored continuously. The Colonoscope was introduced through the mouth, and advanced to the second part of duodenum. The upper GI endoscopy was accomplished without difficulty. The patient tolerated the procedure well. Scope In: 4:31:09 PM Scope Out: 4:52:22 PM Total Procedure Duration Time 0 hours 21 minutes 13 seconds Findings: The examined esophagus was normal. A small hiatal hernia was present. The patient was placed in the supine position for PEG placement. The stomach was insufflated to appose gastric and abdominal thomason. A site was located in the cardia with excellent transillumination for placement. The abdominal wall was marked and prepped in a sterile manner. The area was anesthetized with 1 mL of 0.5% lidocaine. The trocar needle was introduced through the abdominal wall and into the stomach under direct endoscopic view. A snare was introduced through the endoscope and opened in the gastric lumen. The guide wire was passed through the trocar and into the open snare. The snare was closed around the guide wire. The endoscope and snare were removed, pulling the wire out through the mouth. A skin incision was made at the site of needle insertion. The endoscopically removable 20 Fr Bard gastrostomy tube was lubricated. The G-tube was tied to the guide wire and pulled through the mouth and into the stomach. The trocar needle was removed, and the gastrostomy tube was pulled out from the stomach through the skin. The external bumper was attached to the gastrostomy tube, and the tube was cut to remove the guide wire. The final position of the gastrostomy tube was confirmed by relook endoscopy, and skin marking noted to be 4 cm at the external bumper. The final tension and compression of the abdominal wall by the PEG tube and external bumper were checked. The feeding tube was capped, and the tube site cleaned and dressed. Two oozing cratered duodenal ulcers with a visible vessel were found in the duodenal bulb. The largest lesion was 6 mm in largest dimension. Coagulation for hemostasis using argon plasma at 0.3 liters/minute and 20 chau was successful. Biopsies were taken with a cold forceps for histology. Verification of patient identification for the specimen was done. Estimated blood loss was minimal. Impression: - Normal esophagus. - Small hiatal hernia. - Multiple oozing duodenal ulcers with a visible vessel. Treated with argon plasma coagulation (APC). Biopsied. - An endoscopically removable PEG placement was successfully completed. Recommendation: - Return patient to [facility] care. - Resume previous diet. - Continue present medications. - Await pathology results. - Repeat upper endoscopy in 3 months for surveillance based on pathology results. Procedure Code(s): --- Professional --- 07569, 59, Esophagogastroduodenoscopy, flexible, transoral; with control of bleeding, any method 98051, Esophagogastroduodenoscopy, flexible, transoral; with directed placement of percutaneous gastrostomy tube 75375, 51, Esophagogastroduodenoscopy, flexible, transoral; with biopsy, single or multiple CPT copyright 2017 [employer]. All rights reserved. The codes documented in this report are preliminary and upon tailer out review may be revised to meet current compliance requirements. Parth Byrd DO 06/09/2022 5:13:53 PM This report has been signed electronically. Number of Addenda: 0 Note Initiated On: 06/09/2022 4:20 PM
--- NOTE | 2022-06-09 17:15 | OP.CCLET_ITS ---
06/09/2022 Jam Verde [address] [place] [address] Re : Upper GI endoscopy procedure for Bere Godinez Dear Dr. Verde This procedure was performed on Thursday, June 09, 2022. My impressions and recommendations are as follows: Impressions : - Normal esophagus. - Small hiatal hernia. - Multiple oozing duodenal ulcers with a visible vessel. Treated with argon plasma coagulation (APC). Biopsied. - An endoscopically removable PEG placement was successfully completed. Recommendations : - Return patient to [facility] for [facility] care. - Resume previous diet. - Continue present medications. - Await pathology results. - Repeat upper endoscopy in 3 months for surveillance based on pathology results. My findings are described in the full procedure note, which is enclosed. If I can be of further assistance, please feel free to contact me at . Sincerely, Parth Friend, DO 06/09/2022 5:13:53 PM This report has been signed electronically.
--- NOTE | 2022-06-09 17:18 | OP.COLON_ITS ---
Patient Name: Bere Godinez Procedure Date: 06/09/2022 4:57 PM Date of : 1980 Age: 41 Procedure: Colonoscopy Indications: Hematochezia Providers: Parth Byrd DO Medicines: Monitored Anesthesia Care Patient Profile: This is a 41 year old female. Refer to note in patient chart for documentation of history and physical. Patient has symptoms of acute dysphagia and acute nausea. Refer to note in patient chart for documentation of history and physical. Last Colonoscopy: none. The patient's first colonoscopy is today. Complications: No immediate complications. Procedure: Pre-Anesthesia Assessment: - Prior to the procedure, a History and Physical was performed, and patient medications and allergies were reviewed. The patient is competent. The risks and benefits of the procedure and the sedation options and risks were discussed with the patient. All questions were answered and informed consent was obtained. Patient identification and proposed procedure were verified by the physician. Mental Status Examination: alert and oriented. Airway Examination: normal oropharyngeal airway and neck mobility. Respiratory Examination: clear to auscultation. CV Examination: normal. Prophylactic Antibiotics: The patient does not require prophylactic antibiotics. Prior Anticoagulants: The patient has taken no previous anticoagulant or antiplatelet agents. After reviewing the risks and benefits, the patient was deemed in satisfactory condition to undergo the procedure. The anesthesia plan was to use minimal sedation / analgesia (anxiolysis). Immediately prior to administration of medications, the patient was re-assessed for adequacy to receive sedatives. The heart rate, respiratory rate, oxygen saturations, blood pressure, adequacy of pulmonary ventilation, and response to care were monitored throughout the procedure. The physical status of the patient was re-assessed after the procedure. After I obtained informed consent, the scope was passed under direct vision. Throughout the procedure, the patient's blood pressure, pulse, and oxygen saturations were monitored continuously. The Colonoscope was introduced through the anus and advanced to the terminal ileum. The colonoscopy was performed without difficulty. The patient tolerated the procedure well. The quality of the bowel preparation was adequate. Scope In: 4:57:50 PM Scope Withdrawal Time 0 hours 5 minutes 33 seconds Scope Out: 5:06:31 PM Total Procedure Duration Time 0 hours 8 minutes 41 seconds Findings: Multiple small and large-mouthed diverticula were found in the entire colon. The terminal ileum appeared normal. Impression: - Diverticulosis in the entire examined colon. - The examined portion of the ileum was normal. - No specimens collected. Recommendation: - Return patient to [facility] for [facility] care. - Resume previous diet. - Continue present medications. - Repeat colonoscopy in 10 years for surveillance. Procedure Code(s): --- Professional --- 22825, Colonoscopy, flexible; diagnostic, including collection of specimen(s) by brushing or washing, when performed (separate procedure) CPT copyright 2017 [employer]. All rights reserved. The codes documented in this report are preliminary and upon chemist enzymes review may be revised to meet current compliance requirements. Parth Byrd DO 06/09/2022 5:17:47 PM This report has been signed electronically. Number of Addenda: 0 Note Initiated On: 06/09/2022 4:57 PM
--- NOTE | 2022-06-09 17:19 | OP.CCLET_ITS ---
06/09/2022 Jam Verde [address] [place] [address] Re : Colonoscopy procedure for Bere Godinez Dear Dr. Verde This procedure was performed on Thursday, June 09, 2022. My impressions and recommendations are as follows: Impressions : - Diverticulosis in the entire examined colon. - The examined portion of the ileum was normal. - No specimens collected. Recommendations : - Return [facility] to [facility] care. - Resume previous diet. - Continue present medications. - Repeat colonoscopy in 10 years for surveillance. My findings are described in the full procedure note, which is enclosed. If I can be of further assistance, please feel free to contact me at . Sincerely, Parth Byrd, 06/09/2022 5:17:47 PM This report has been signed electronically.
--- NOTE | 2022-06-09 18:00 | NURSING ---
Patient returned back to floor in good spirits. Peg tube site looks WNL.
[2022-06-09] MEDS: Pivot 1.5 Cal 1,000 ML 45 ML NG (18:52)
[2022-06-09] MEDS: Acetaminophen 650 MG/20 ML UDC 1000 MG PO (21:25)
[2022-06-09] MEDS: traMADol 50 MG Tablet 25 MG PO (21:25)
[2022-06-09] MEDS: Magnesium Chloride 64 MG Delay Rel.Tablet 128 MG PO (21:26)
[2022-06-09] MEDS: Pantoprazole Sodium 20 MG Tablet 40 MG PO (21:26)
[2022-06-09] MEDS: Mirtazapine 15 MG Tablet 7.5 MG PO (21:27)
[2022-06-09] MEDS: Menthol/Lanolin/Calamine/Znox 113 GM Tube 1 APPLIC TOPICAL (21:47)
[2022-06-10] MEDS: 0.9% Normal Saline 1,000 ML 60 ML IV (06:22)
--- NOTE | 2022-06-10 06:25 | NURSING ---
Piviot Tube Feed Stopped this morning. Flushed.
[2022-06-10 06:30] LABS: Hematocrit 32.7 % (37-47); Hemoglobin 10.7 g/dL (12.0-15.0); Mean Corp Hgb Conc 32.7 g/dL (32-36); Mean Corpuscular Hgb 30.3 pg (27.0-32.0); Mean Corpuscular Volume 92.6 fL (81-99); Mean Platelet Vol. 8.4 fl (6.2-12.0); POSITIVE DIFFERENTIAL YES; Platelet Count 373 K/mm3 (150-450); RBC Distribution Width CV 18.6 % (11.6-14.6); RBC Distribution Width SD 60.6 fl (35.1-43.9); Red Blood Count 3.53 M/mm3 (4.2-5.4); White Blood Count 15.3 K/mm3 (4.4-11.0)
[2022-06-10 06:39] LABS: Scan Indicated on CBC? Y/N YES- FLAGS NOTED
[2022-06-10 06:55] LABS: Anion Gap 9 (5-15); BUN 24 mg/dL (7-18); BUN/Creat Ratio 74.8 RATIO (10-20); Calcium,Total 8.6 mg/dL (8.5-10.1); Chloride 106 mmol/L (98-107); Creatinine, Serum 0.32 mg/dL (0.55-1.02); EST Glomerular Filtration Rate 238 mL/min (>60); Est Glom Filt Rate - Afr Amer 288 mL/min (>60); Estimated Creatinine Clearance 157.81 ml/min; Glucose 131 mg/dL (74-106); Magnesium 1.1 mg/dL (1.6-2.6); Potassium 3.2 mmol/L (3.5-5.1); Sodium Level 140 mmol/L (136-145)
[2022-06-10 07:10] LABS: Differential Comment SCANNED
[2022-06-10 08:55] VITALS: BP 113/67; PULSE 109; RESP 16; TEMP 36.8; O2SAT 98
--- NOTE | 2022-06-10 09:25 | PN_ITS ---
Subjective Subjective Afebrile VSS-heart rate is 109 today. Fluid balance for yesterday was +1898. Maintaining appropriate oxygen saturation on RA-98% Oral intake Discussed with nursing - no problems that need addressed Reviewed the PT/OT/ST notes Medication list reviewed. EGD with multiple oozing duodenal ulcers with visible vessel. Treated with an Argon plasma laser. Colonoscopy with diverticuli throughout the entire colon with no other abnormalities. PEG successfully placed. White blood cell count today is 15.3. Hemoglobin is 10.7 and stable. K is low at 3.2 today. BUN is down to 24 from 42 on 06/05/2022. Creatinine is stable at 0.32. Magnesium is low at 1.1. Lex denies nausea today and also denies epigastric pain. She had shrimp and Portuguese fries for dinner last night and tolerated this with no difficulty. She did have a little abdominal cramping following the colonoscopy but this is completely resolved. She denies lightheadedness, cephalgia, chest pain, shortness of breath, calf pain (other than when I am debriding the wound), and dysuria. Objective Data Objective Data Vital Signs: Vital Signs Temp Pulse Resp BP Pulse Ox O2 Del Method 98.3 F 109 H 16 113/67 98 Room Air 06/10/22 08:55 06/10/22 08:55 06/10/22 08:55 06/10/22 08:55 06/10/22 08:55 06/10/22 08:55 Oxygen Delivery Method Room Air Weight: 97 lb 3.582 oz Body Mass Index (BMI) 29.5 Intake & Output: Intake and Output for Last 24 Hours 06/08/22 06/09/22 06/10/22 23:59 23:59 23:59 Intake Total 3713.75 / 3713.75 3636 / 3636 722 / 722 Output Total 3350 / 3350 2900 / 2900 400 / 400 Balance 363.75 / 363.75 736 / 736 322 / 322 Medical Nutrition Assessment Dietitian: Malnutrition Criteria Met Start: 05/29/22 08:26 Freq: Status: Active Protocol: Document 06/09/22 13:22 RMA (Rec: 06/09/22 13:22 RMA [id number]) Nutrition Malnutrition Evidence of Malnutrition Exists Yes Malnutrition (severe): Chronic Evidenced By Suboptimal Energy Intake ( Severe),Weight Loss (Severe) Clinical Problem Chronic Disease or Condition Related Malnutrition Etiology Severe protein-calorie malnutrition in the context of chronic disease related to inadequate oral intake Signs/Symptoms as evidenced by ~11% wt loss x past 6 months and oral intake meeting less than 50% estimated nutrition needs Status Active Problem Recommendation Dietitian Recommendations/Changes 1) Resume fiber-restricted diet s/p coloscopy today and encourage PO w/ meals as tolerated. 2) Continue Pivot 1.5 via NGT nocturnal feeds- 45mL/hour for 12 hours w/ 60mL H2O flush every 4 hours to provide 810 calories, 50 g protein, and 765mL fluid/day which meets about 50-60% of estimated calorie/protein needs. Will monitor PO intake, wt, and adjust nutrition support as indicated. Pending PEG placement today 06/09. 3) Continue premier protein drinks from home as tolerated; dislikes ensure. 4) Adrian BID for wound healing . 5) Weight 3 times per week as ordered. Lab / Micro Data Result Diagrams: 06/10/22 06:15 06/10/22 06:15 Labs: Laboratory Results - last 24 hr 06/10/22 06:15: WBC 15.3 H, RBC 3.53 L, Hgb 10.7 L, Hct 32.7 L, MCV 92.6, MCH 30.3, MCHC 32.7, RDW Std Deviation 60.6 H, RDW Coeff of Seema 18.6 H, Plt Count 373, MPV 8.4, Differential Comment SCANNED, Diff Path Review September foll 06/10/22 06:15: Sodium 140, Potassium 3.2 L, Chloride 106, Carbon Dioxide 25.0, Anion Gap 9, BUN 24 H, Creatinine 0.32 L, Estim Creat Clear Calc 157.81, Est GFR (MDRD) Af Amer 288, Est GFR (MDRD) Non-Af 238, BUN/Creatinine Ratio 74.8 H, Glucose 131 H, Calcium 8.6, Magnesium 1.1 L Micro: Microbiology 06/08/22 19:45 Stool Stool Lactoferrin - Final 06/08/22 11:08 Stool C. difficile DNA Amplification - Final 06/08/22 11:08 Stool Stool Occult Blood (MARYANN) - Final Occult Blood Positive 05/31/22 09:40 Stool Stool Occult Blood (MARYANN) - Final Physical Exam Const alert, oriented x3 and no apparent distress Constitutional Narrative: pleasant and upbeat. Very Happy to have the feeding tube removed from her nose. General Appearance: cooperative HEENT moist oral mucous membranes Resp normal respiratory effort and clear to auscultation bilaterally Resp Narrative: No conversational dyspnea. Able to speak in complete sentences. Cardio regular rate, regular rhythm and no gallops Cardio Narrative: Occasional tachycardia in the low 100s, usually when she is exercising. Rate: tachycardic GI normal to inspection, nondistended, normoactive bowel sounds, soft to palpation and non-tender GI Narrative: No guarding with palpation. Bowel sounds are not hyperactive. No masses. Extremity normal capillary refill and no calf tenderness General Extremity: Negative for edema Skin General Skin Exam: no breakdown Rashes: no rashes Wound Narrative: The wound on the R medial calf continues to improved. Currently using Lilibeth for dressing. Evidence of new epithelialization at the margins of the entire wound. New islands of epithelium in the mid section of the wound. 90% granulating. Small amount of slough at the site of the previous skin biopsies. No purulent DC and and erythema of the periwound area. No odor. Neuro Neuro Narrative: upbeat affect. Assessment & Plan Assessment/Plan (1) Debility: (2) Severe malnutrition: (3) Ulcer of right lower extremity with fat layer exposed: PLAN: Continues to improve with debridement every other day, application of Lilibeth and improved nutrition. (4) Hypomagnesemia: (5) Diarrhea: PLAN: The stool has been very loose with more frequent stools as well.....I suspect this is due to the GIB from the multiple duodenal ulcers. (6) PEG (percutaneous endoscopic gastrostomy) status: PLAN: Will discuss bolus feedings vs continuous feeding at night with the d ietician. (7) History of colonoscopy: PLAN: Diverticulosis throughout the entire colon. Likely etiology of the intraabdominal abscess is a perforated tic......had been constipated as OP. Will need to discuss with Dr. Osorio if OK to give Metamucil to prevent constipation. (8) Duodenal ulcer disease: PLAN: S/P Argon laser coagulation for visible vessel in the duodenum. Currently on Protonix 40 mg p.o. twice daily. This will continue for 12 weeks and at that time Dr. Byrd would like to see her for follow-up EGD for surveillance. (9) Diverticulosis: PLAN: Plan 1. Continue therapy 2. 4 g of IV mag today and continue magnesium chloride 128 mg twice daily 3. Add 20 mEq of potassium to each liter of normal saline and run at 85 cc/h. Continue potassium 20 mEq 3 times daily. 4. Add Aldactone 12.5 mg daily to help conserve potassium 5. Continue Protonix 40 mg p.o. twice daily for 12 weeks and should have follow-up EGD for surveillance. 6. Will discuss with Dr. Osorio when it is okay to start Metamucil or other soluble fiber. 7. Continue with debridement as needed every 48 hours. 8. If she continues to have frequent loose stool may try Lomotil 1-2 times a day or add Questran to firm up the stool. 9. Recheck BMP, magnesium and H&H on Sunday Charges/Coding Visit Charges Inpatient E&M: 07683 Subs Hosp L3
[2022-06-10] MEDS: Acetaminophen 650 MG/20 ML UDC 1000 MG PO (09:35)
[2022-06-10] MEDS: Morphine 2 MG/ML Syringe IV (09:36)
[2022-06-10] MEDS: Magnesium Chloride 64 MG Delay Rel.Tablet 128 MG PO ×2 (09:36→20:16)
[2022-06-10] MEDS: Ascorbic Acid 500 MG Tablet PO ×2 (09:36→17:57)
[2022-06-10] MEDS: Pantoprazole Sodium 20 MG Tablet 40 MG PO ×2 (09:36→20:17)
[2022-06-10] MEDS: Vitamin E 400 UNITS Capsule PO (09:36)
[2022-06-10] MEDS: Cholecalciferol (VIT D3) 25 MCG TABLET (1,000 UNITS) 50 MCG PO (09:36)
[2022-06-10] MEDS: Lidocaine 4% 50 ML Bottle TOPICAL (09:58)
[2022-06-10] MEDS: Magnesium Sulfate 4gm/100mL 4 GM/100 ML IV.SOLN. IV (10:27)
[2022-06-10] MEDS: Menthol/Lanolin/Calamine/Znox 113 GM Tube 1 APPLIC TOPICAL ×2 (10:33→20:17)
[2022-06-10] MEDS: Spironolactone 25 MG Tablet 12.5 MG PO (12:11)
[2022-06-10] MEDS: 0.9% Saline Lock 10 ML Syringe IV ×2 (14:51→15:57)
[2022-06-10] MEDS: KCL 20MEQ in 0.9% NS 20 MEQ/1,000 ML IV.SOLN. 85 MEQ IV (15:54)
[2022-06-10] MEDS: Pivot 1.5 Cal 1,000 ML 45 ML NG (17:54)
[2022-06-10 19:47] VITALS: BP 112/72; PULSE 102; RESP 16; TEMP 36.6; O2SAT 97
[2022-06-10] MEDS: traMADol 50 MG Tablet 25 MG PO (20:13)
[2022-06-10] MEDS: Mirtazapine 15 MG Tablet 7.5 MG PO (20:17)
[2022-06-10 22:00] VITALS: PULSE 103; RESP 17; O2SAT 99
[2022-06-11] MEDS: KCL 20MEQ in 0.9% NS 20 MEQ/1,000 ML IV.SOLN. 85 MEQ IV ×2 (03:11→14:53)
[2022-06-11] MEDS: Vitamin E 400 UNITS Capsule PO (08:28)
[2022-06-11] MEDS: Magnesium Chloride 64 MG Delay Rel.Tablet 128 MG PO ×2 (08:28→20:41)
[2022-06-11] MEDS: Pantoprazole Sodium 20 MG Tablet 40 MG PO ×2 (08:28→20:42)
[2022-06-11] MEDS: Spironolactone 25 MG Tablet 12.5 MG PO (08:28)
[2022-06-11] MEDS: Loperamide 2 MG Capsule 4 MG PO (08:28)
[2022-06-11] MEDS: Ascorbic Acid 500 MG Tablet PO ×2 (08:29→17:41)
[2022-06-11] MEDS: Cholecalciferol (VIT D3) 25 MCG TABLET (1,000 UNITS) 50 MCG PO (08:29)
[2022-06-11 08:30] VITALS: BP 116/74; PULSE 100; RESP 15; TEMP 36.7; O2SAT 95
[2022-06-11] MEDS: Menthol/Lanolin/Calamine/Znox 113 GM Tube 1 APPLIC TOPICAL ×2 (08:34→20:44)
[2022-06-11] MEDS: Acetaminophen 650 MG/20 ML UDC 1000 MG PO (11:25)
[2022-06-11] MEDS: Pivot 1.5 Cal 1,000 ML 45 ML NG (17:41)
[2022-06-11] MEDS: traMADol 50 MG Tablet 25 MG PO (20:40)
[2022-06-11] MEDS: Mirtazapine 15 MG Tablet 7.5 MG PO (20:42)
[2022-06-11 20:59] VITALS: BP 127/88; PULSE 104; RESP 16; TEMP 36.6; O2SAT 94
[2022-06-11 22:00] VITALS: PULSE 109; RESP 16; O2SAT 97
[2022-06-12] MEDS: KCL 20MEQ in 0.9% NS 20 MEQ/1,000 ML IV.SOLN. 85 MEQ IV ×2 (02:09→17:01)
[2022-06-12 07:25] VITALS: BP 129/85; PULSE 108; RESP 15; TEMP 36.2; O2SAT 99
[2022-06-12] MEDS: Magnesium Chloride 64 MG Delay Rel.Tablet 128 MG PO ×2 (09:59→21:28)
[2022-06-12] MEDS: Spironolactone 25 MG Tablet 12.5 MG PO (09:59)
[2022-06-12] MEDS: Ascorbic Acid 500 MG Tablet PO ×2 (09:59→17:01)
[2022-06-12] MEDS: Cholecalciferol (VIT D3) 25 MCG TABLET (1,000 UNITS) 50 MCG PO (09:59)
[2022-06-12] MEDS: Menthol/Lanolin/Calamine/Znox 113 GM Tube 1 APPLIC TOPICAL ×2 (10:00→21:35)
[2022-06-12] MEDS: Pantoprazole Sodium 20 MG Tablet 40 MG PO ×2 (10:00→21:28)
[2022-06-12] MEDS: Vitamin E 400 UNITS Capsule PO (10:00)
[2022-06-12] MEDS: Loperamide 2 MG Capsule 4 MG PO (10:01)
--- NOTE | 2022-06-12 14:43 | PCM.PROGNOTE ---
Subjective Subjective Afebrile VSS-heart rate for the past 24 hours has ranged from 104 - 109. Current blood pressure is 129/85. Maintaining appropriate oxygen saturation on RA Oral intake is fair....she is eating but only to take in only small amounts. No nausea. Fluid balance for 06/12/2022 was +83. Has had 2 BM's so far today. Mostly liquid. Discussed with nursing - no problems that need addressed Reviewed the PT/OT notes Medication list reviewed. I restarted oral mag on 06/10/22 and this could be contributing to diarrhea......will keep a stool count today. If > 3 BM's today will decrease the dose to 128 mg daily and consider adding Questran . Denies lightheadedness, vertigo, CP, SOB at rest, SOB with exertion, cough, nausea, vomiting, abd pain, constipation, dysuria, calf pain and ankle swelling. The nurses tell me she is having diarrhea but, she only has 1 BM recorded for 06/11/22. It is loose/liquid but the frequency has decreased since the visible vessel in the duodenum was treated with the argon laser. Objective Data Objective Data Vital Signs: Vital Signs Temp Pulse Resp BP Pulse Ox O2 Del Method 97.2 F L 108 H 15 129/85 H 99 Room Air 06/12/22 07:25 06/12/22 07:25 06/12/22 07:25 06/12/22 07:25 06/12/22 07:25 06/12/22 07:25 Oxygen Delivery Method Room Air Weight: 95 lb 14.417 oz Body Mass Index (BMI) 29.5 Intake & Output: Intake and Output for Last 24 Hours 06/10/22 06/11/22 06/12/22 23:59 23:59 23:59 Intake Total 1330 / 1330 2833.58 / 2833.58 2212.42 / 2212.42 Output Total 1550 / 1550 2750 / 2750 1000 / 1000 Balance -220 / -220 83.58 / 83.58 1212.42 / 1212.42 Medical Nutrition Assessment Dietitian: Malnutrition Criteria Met Start: 05/29/22 08:26 Freq: Status: Active Protocol: Document 06/09/22 13:22 RMA (Rec: 06/09/22 13:22 RMA [id number]) Nutrition Malnutrition Evidence of Malnutrition Exists Yes Malnutrition (severe): Chronic Evidenced By Suboptimal Energy Intake ( Severe),Weight Loss (Severe) Clinical Problem Chronic Disease or Condition Related Malnutrition Etiology Severe protein-calorie malnutrition in the context of chronic disease related to inadequate oral intake Signs/Symptoms as evidenced by ~11% wt loss x past 6 months and oral intake meeting less than 50% estimated nutrition needs Status Active Problem Recommendation Dietitian Recommendations/Changes 1) Resume fiber-restricted diet s/p coloscopy today and encourage PO w/ meals as tolerated. 2) Continue Pivot 1.5 via NGT nocturnal feeds- 45mL/hour for 12 hours w/ 60mL H2O flush every 4 hours to provide 810 calories, 50 g protein, and 765mL fluid/day which meets about 50-60% of estimated calorie/protein needs. Will monitor PO intake, wt, and adjust nutrition support as indicated. Pending PEG placement today 06/09. 3) Continue premier protein drinks from home as tolerated; dislikes ensure. 4) Adrian BID for wound healing . 5) Weight 3 times per week as ordered. Lab / Micro Data Result Diagrams: 06/13/22 05:40 06/13/22 05:40 Micro: Microbiology 06/08/22 19:45 Stool Stool Lactoferrin - Final 06/08/22 11:08 Stool C. difficile DNA Amplification - Final 06/08/22 11:08 Stool Stool Occult Blood (MARYANN) - Final Occult Blood Positive 05/31/22 09:40 Stool Stool Occult Blood (MARYANN) - Final Physical Exam Const alert and no apparent distress Constitutional Narrative: pleasant and upbeat. Very Happy to have the feeding tube removed from her nose. General Appearance: cooperative Resp normal respiratory effort and clear to auscultation bilaterally Resp Narrative: No conversational dyspnea. Able to speak in complete sentences. Cardio regular rate, regular rhythm, no murmurs, no rub and no gallops Cardio Narrative: Occasional tachycardia in the low 100s, usually when she is exercising. GI normal to inspection, nondistended, normoactive bowel sounds, soft to palpation and non-tender GI Narrative: No guarding with palpation. Bowel sounds are not hyperactive. No masses. Extremity normal capillary refill and no calf tenderness General Extremity: Negative for edema Skin General Skin Exam: no breakdown Rashes: no rashes Neuro Neuro Narrative: upbeat affect. Psych thought process normal, cooperative and affect normal Assessment & Plan Assessment/Plan (1) Debility: (2) Severe malnutrition: (3) Ulcer of right lower extremity with fat layer exposed: PLAN: (4) Hypomagnesemia: (5) Diarrhea: PLAN: Plan 1. Continue therapy. 2. Debride the wound again day after tomorrow 3. Recheck lab in the a.m. 4. consider adding Questran to the medications to help firm up the stool. Charges/Coding Visit Charges Inpatient E&M: 41876 Subs Hosp L2
[2022-06-12] MEDS: Pivot 1.5 Cal 1,000 ML 45 ML NG (17:56)
[2022-06-12] MEDS: traMADol 50 MG Tablet 25 MG PO ×2 (17:57→21:29)
[2022-06-12 20:15] VITALS: O2SAT 98
[2022-06-12 20:19] VITALS: BP 123/86; PULSE 105; RESP 16; TEMP 36.9; O2SAT 98
[2022-06-12] MEDS: Mirtazapine 15 MG Tablet 7.5 MG PO (21:29)
[2022-06-13] MEDS: KCL 20MEQ in 0.9% NS 20 MEQ/1,000 ML IV.SOLN. 85 MEQ IV (05:34)
[2022-06-13 06:05] LABS: Hemoglobin 10.3 g/dL (12.0-15.0); Mean Corp Hgb Conc 32.2 g/dL (32-36); Mean Corpuscular Hgb 30.9 pg (27.0-32.0); Mean Corpuscular Volume 96.1 fL (81-99); Mean Platelet Vol. 8.6 fl (6.2-12.0); Platelet Count 349 K/mm3 (150-450); RBC Distribution Width CV 18.1 % (11.6-14.6); RBC Distribution Width SD 64.6 fl (35.1-43.9); Red Blood Count 3.33 M/mm3 (4.2-5.4); White Blood Count 8.1 K/mm3 (4.4-11.0)
[2022-06-13 06:47] LABS: ALB/GLOB Ratio 0.7 RATIO (0.9-2.4); AST(SGOT) 22 U/L (15-37); Alanine Aminotransfer ALT/SGPT 36 U/L (13-56); Albumin, Serum 2.4 g/dL (3.2-5.0); Alkaline Phosphatase 116 U/L (45-117); Anion Gap 5 (5-15); BUN 28 mg/dL (7-18); BUN/Creat Ratio 83.8 RATIO (10-20); Chloride 105 mmol/L (98-107); Creatinine, Serum 0.33 mg/dL (0.55-1.02); EST Glomerular Filtration Rate 227 mL/min (>60); Est Glom Filt Rate - Afr Amer 275 mL/min (>60); Estimated Creatinine Clearance 151.99 ml/min; Globulin 3.6 g/dL (2.2-4.2); Glucose 132 mg/dL (74-106); Magnesium 1.2 mg/dL (1.6-2.6); Potassium 4.5 mmol/L (3.5-5.1); Sodium Level 137 mmol/L (136-145)
[2022-06-13 07:42] VITALS: BP 114/72; PULSE 71; RESP 15; TEMP 37; O2SAT 98
[2022-06-13] MEDS: Magnesium Chloride 64 MG Delay Rel.Tablet 128 MG PO ×2 (08:03→21:19)
[2022-06-13] MEDS: Pantoprazole Sodium 20 MG Tablet 40 MG PO ×2 (08:04→21:18)
[2022-06-13] MEDS: Cholecalciferol (VIT D3) 25 MCG TABLET (1,000 UNITS) 50 MCG PO (08:04)
[2022-06-13] MEDS: Spironolactone 25 MG Tablet 12.5 MG PO (08:04)
[2022-06-13] MEDS: Vitamin E 400 UNITS Capsule PO (08:05)
[2022-06-13] MEDS: Menthol/Lanolin/Calamine/Znox 113 GM Tube 1 APPLIC TOPICAL ×2 (08:05→21:19)
[2022-06-13] MEDS: Ascorbic Acid 500 MG Tablet PO ×2 (08:05→18:24)
[2022-06-13 09:22] LABS: Pathologist Review Reviewed
[2022-06-13] MEDS: Acetaminophen 650 MG/20 ML UDC 1000 MG PO (11:12)
--- NOTE | 2022-06-13 12:02 | PN_ITS ---
Subjective Subjective Afebrile VSS-heart rate is currently in the 70s with a blood pressure of 114/72. Maintaining appropriate oxygen saturation on RA-98% on room air. Oral intake is [] Discussed with nursing - no problems that need addressed Reviewed the PT/OT/ST notes Medication list reviewed. All lab was personally reviewed. Hemoglobin is 10.3 and the white blood cell count is 8.1 today. Platelets are 349,000. Potassium is 4.5 and the sodium is 137. Serum bicarb is 27 and the BUN is 28 with a creatinine of 0.33. Calcium i s within normal limits. Magnesium is low at 1.2. Objective Data Objective Data Vital Signs: Vital Signs Temp Pulse Resp BP Pulse Ox O2 Del Method 98.6 F 71 15 114/72 98 Room Air 06/13/22 07:42 06/13/22 07:42 06/13/22 07:42 06/13/22 07:42 06/13/22 07:42 06/13/22 07:42 Oxygen Delivery Method Room Air Weight: 96 lb 8.999 oz Body Mass Index (BMI) 29.5 Intake & Output: Intake and Output for Last 24 Hours 06/11/22 06/12/22 06/13/22 23:59 23:59 23:59 Intake Total 2833.58 / 2833.58 2657.67 / 2657.67 2099 / 2099 Output Total 2750 / 2750 1750 / 1750 1150 / 1150 Balance 83.58 / 83.58 907.67 / 907.67 949 / 949 Medical Nutrition Assessment Dietitian: Malnutrition Criteria Met Start: 05/29/22 08:26 Freq: Status: Active Protocol: Document 06/09/22 13:22 RMA (Rec: 06/09/22 13:22 RMA [id number]) Nutrition Malnutrition Evidence of Malnutrition Exists Yes Malnutrition (severe): Chronic Evidenced By Suboptimal Energy Intake ( Severe),Weight Loss (Severe) Clinical Problem Chronic Disease or Condition Related Malnutrition Etiology Severe protein-calorie malnutrition in the context of chronic disease related to inadequate oral intake Signs/Symptoms as evidenced by ~11% wt loss x past 6 months and oral intake meeting less than 50% estimated nutrition needs Status Active Problem Recommendation Dietitian Recommendations/Changes 1) Resume fiber-restricted diet s/p coloscopy today and encourage PO w/ meals as tolerated. 2) Continue Pivot 1.5 via NGT nocturnal feeds- 45mL/hour for 12 hours w/ 60mL H2O flush every 4 hours to provide 810 calories, 50 g protein, and 765mL fluid/day which meets about 50-60% of estimated calorie/protein needs. Will monitor PO intake, wt, and adjust nutrition support as indicated. Pending PEG placement today 06/09. 3) Continue premier protein drinks from home as tolerated; dislikes ensure. 4) Adrian BID for wound healing . 5) Weight 3 times per week as ordered. Lab / Micro Data Result Diagrams: 06/13/22 05:40 06/13/22 05:40 Labs: Laboratory Results - last 24 hr 06/10/22 06:15: Diff Path Review Reviewed 06/13/22 05:40: WBC 8.1, RBC 3.33 L, Hgb 10.3 L, Hct 32.0 L, MCV 96.1, MCH 30.9, MCHC 32.2, RDW Std Deviation 64.6 H, RDW Coeff of Seema 18.1 H, Plt Count 349, MPV 8.6 06/13/22 05:40: Sodium 137, Potassium 4.5, Chloride 105, Carbon Dioxide 27.0, Anion Gap 5, BUN 28 H, Creatinine 0.33 L, Estim Creat Clear Calc 151.99, Est GFR (MDRD) Af Amer 275, Est GFR (MDRD) Non-Af 227, BUN/Creatinine Ratio 83.8 H, Glucose 132 H, Calcium 9.0, Magnesium 1.2 L, Total Bilirubin 0.40, AST 22, ALT 36, Alkaline Phosphatase 116, Total Protein 6.0 L, Albumin 2.4 L, Globulin 3.6, Albumin/Globulin Ratio 0.7 L Micro: Microbiology 06/08/22 19:45 Stool Stool Lactoferrin - Final 06/08/22 11:08 Stool C. difficile DNA Amplification - Final 06/08/22 11:08 Stool Stool Occult Blood (MARYANN) - Final Occult Blood Positive 05/31/22 09:40 Stool Stool Occult Blood (MARYANN) - Final
[2022-06-13 14:22] LABS: Pancreatic Elastase, Fecal 287 (>200)
[2022-06-13] MEDS: Magnesium Sulfate 4gm/100mL 4 GM/100 ML IV.SOLN. IV (14:39)
--- NOTE | 2022-06-13 15:00 | CASEMGMT ---
Social Work In preparation for DC, CORNELIUS spoke with pt about skilled HHC choices this worker received from insurance CM. Pt's preference is [facility]. SW contacted [facility] to get insurance coverage/acceptance. [facility] does accept pt's insurance, however, insurance only covers the cost after deductible and OOP max has been met. [facility] provided specific details and OOP pricing for disciplines. SW provided that information to pt. Pt appreciative. CORNELIUS updated pt that insurance approved with [employer]D 06/19. Will ReTeam. SW to continue to follow. Deloris Lemus, [employer]
[2022-06-13] MEDS: Cholestyramine/Sucrose 4 GM/PACKET PO (16:26)
[2022-06-13] MEDS: Pivot 1.5 Cal 1,000 ML BOTTLE 135 ML GT ×2 (18:25→23:18)
[2022-06-13] MEDS: 0.9% Saline Lock 10 ML Syringe IV (18:26)
[2022-06-13 19:41] VITALS: BP 113/65; PULSE 108; RESP 18; TEMP 36.5
[2022-06-13] MEDS: traMADol 50 MG Tablet 25 MG PO (21:16)
[2022-06-13] MEDS: Mirtazapine 15 MG Tablet 7.5 MG PO (21:17)
[2022-06-14] MEDS: KCL 20MEQ in 0.9% NS 20 MEQ/1,000 ML IV.SOLN. 85 MEQ IV (01:00)
[2022-06-14] MEDS: Cholestyramine/Sucrose 4 GM/PACKET PO ×2 (06:43→16:13)
[2022-06-14 07:45] VITALS: BP 120/80; PULSE 105; RESP 17; TEMP 37.2; O2SAT 99
--- NOTE | 2022-06-14 08:20 | PCM.PROGNOTE ---
Subjective Subjective Afebrile - temp this AM is 99 which is a tad higher than it has been. VSS - HR is up in the low 100's again today. Maintaining appropriate oxygen saturation on RA Oral intake is getting better. She has a good appetite but fills up quickly. The TF plus water flushes before and after is making her feel bloated and like she is going to vomit. Weight is down a little over 2 pounds since yesterday........it fluctuates between 92-94 depending on the state of hydration. Fluid balance for 06/13/2022 is +1361 but this is not accounting for diarrhea. Discussed with nursing - no problems that need addressed Reviewed the PT/OT notes Medication list reviewed. Bere denies lightheadedness, vertigo, CP, SOB at rest, SOB with exertion, cough, nausea, vomiting, abd pain, constipation, dysuria, calf pain and ankle swelling. She still has loose stool but, she was just started on Questran. Objective Data Objective Data Vital Signs: Vital Signs Temp Pulse Resp BP Pulse Ox O2 Del Method 99.0 F 105 H 17 120/80 99 Room Air 06/14/22 07:45 06/14/22 07:45 06/14/22 07:45 06/14/22 07:45 06/14/22 07:45 06/14/22 07:45 Oxygen Delivery Method Room Air Weight: 94 lb 1.6 oz Body Mass Index (BMI) 29.5 Intake & Output: Intake and Output for Last 24 Hours 06/12/22 06/13/22 06/14/22 23:59 23:59 23:59 Intake Total 2657.67 / 2657.67 3711 / 3711 218 / 218 Output Total 1750 / 1750 2350 / 2350 600 / 600 Balance 907.67 / 907.67 1361 / 1361 -382 / -382 Medical Nutrition Assessment Dietitian: Malnutrition Criteria Met Start: 05/29/22 08:26 Freq: Status: Active Protocol: Document 06/09/22 13:22 RMA (Rec: 06/09/22 13:22 RMA [id number]) Nutrition Malnutrition Evidence of Malnutrition Exists Yes Malnutrition (severe): Chronic Evidenced By Suboptimal Energy Intake ( Severe),Weight Loss (Severe) Clinical Problem Chronic Disease or Condition Related Malnutrition Etiology Severe protein-calorie malnutrition in the context of chronic disease related to inadequate oral intake Signs/Symptoms as evidenced by ~11% wt loss x past 6 months and oral intake meeting less than 50% estimated nutrition needs Status Active Problem Recommendation Dietitian Recommendations/Changes 1) Resume fiber-restricted diet s/p coloscopy today and encourage PO w/ meals as tolerated. 2) Continue Pivot 1.5 via NGT nocturnal feeds- 45mL/hour for 12 hours w/ 60mL H2O flush every 4 hours to provide 810 calories, 50 g protein, and 765mL fluid/day which meets about 50-60% of estimated calorie/protein needs. Will monitor PO intake, wt, and adjust nutrition support as indicated. Pending PEG placement today 06/09. 3) Continue premier protein drinks from home as tolerated; dislikes ensure. 4) Adrian BID for wound healing . 5) Weight 3 times per week as ordered. Lab / Micro Data Result Diagrams: 06/13/22 05:40 06/13/22 05:40 Labs: Laboratory Results - last 24 hr 06/08/22 19:45: Stool Pancreat Elastase 287 06/10/22 06:15: Diff Path Review Reviewed Micro: Microbiology 06/08/22 19:45 Stool Stool Lactoferrin - Final 06/08/22 11:08 Stool C. difficile DNA Amplification - Final 06/08/22 11:08 Stool Stool Occult Blood (MARYANN) - Final Occult Blood Positive 05/31/22 09:40 Stool Stool Occult Blood (MARYANN) - Final Physical Exam Const alert and no apparent distress General Appearance: cooperative Resp clear to auscultation bilaterally Cardio regular rhythm, no murmurs and no gallops Cardio Narrative: sometimes with tachycardia even when she is not dehydrated or anemic.......was getting this prior to coming to rehab. GI soft to palpation, non-tender and non-distended GI Narrative: no guarding with palpation. Normal BS's. Extremity no calf tenderness General Extremity: Negative for edema Skin General Skin Exam: no breakdown Rashes: no rashes Wound Narrative: The wound now measures 9.2 cm in length, 3.3 cm in width and the majority of the wound is now even with the skin. There are 2 small areas where the previous skin biopsies were done that are a little deeper than skin level. The top bx is 3mm in depth and the distal bx is also 3 mm in depth. The wound is not 95% granulation tissue and there is continued epithelialization at the margins but, there are now islands of new epithelium within the body of the wound. There is no periwound erythema, no odor to the wound and no purulent discharge. The wound was debride in the areas of the 2 prior biopsy sites. Neuro CN's II-XII intact bilaterally Speech: speech normal Psych thought process normal, cooperative and affect normal Assessment & Plan Assessment/Plan (1) Debility: (2) Severe malnutrition: (3) Ulcer of right lower extremity with fat layer exposed: (4) Hypomagnesemia: (5) Diarrhea: (6) Hypokalemia: PLAN: Plan 1. Continue therapy 2. BMP, CBC with differential and magnesium on Sunday 3. Discontinue intravenous fluids today. She will get water flushes before and after her tube feeds. 4. Questran was added to her drug regimen yesterday in an attempt to firm up the stool. The Pivot 1.5 has some fiber in it as well. 5. Will need to follow up with nephrology post DC for suspected Bartters S or Gitelman's S. Charges/Coding Visit Charges Inpatient E&M: 45571 Subs Hosp L2
[2022-06-14] MEDS: Cholecalciferol (VIT D3) 25 MCG TABLET (1,000 UNITS) 50 MCG PO (08:43)
[2022-06-14] MEDS: Pantoprazole Sodium 20 MG Tablet 40 MG PO ×2 (08:43→21:50)
[2022-06-14] MEDS: Magnesium Chloride 64 MG Delay Rel.Tablet 128 MG PO ×2 (08:43→21:50)
[2022-06-14] MEDS: Spironolactone 25 MG Tablet 12.5 MG PO (08:44)
[2022-06-14] MEDS: Vitamin E 400 UNITS Capsule PO (08:44)
[2022-06-14] MEDS: Ascorbic Acid 500 MG Tablet PO ×2 (08:44→18:15)
[2022-06-14] MEDS: Menthol/Lanolin/Calamine/Znox 113 GM Tube 1 APPLIC TOPICAL ×2 (08:47→20:18)
[2022-06-14] MEDS: Pivot 1.5 Cal 1,000 ML BOTTLE 135 ML GT ×3 (09:11→21:50)
[2022-06-14] MEDS: 0.9% Saline Lock 10 ML Syringe IV (10:33)
[2022-06-14] MEDS: Morphine 2 MG/ML Syringe IV (10:33)
[2022-06-14] MEDS: Lidocaine 4% 50 ML Bottle TOPICAL (10:40)
[2022-06-14] MEDS: traMADol 50 MG Tablet 25 MG PO (20:15)
[2022-06-14 20:24] VITALS: BP 122/81; PULSE 109; RESP 17; TEMP 37.3; O2SAT 99
[2022-06-14] MEDS: Mirtazapine 15 MG Tablet 7.5 MG PO (21:50)
[2022-06-14] MEDS: Acetaminophen 650 MG/20 ML UDC 1000 MG PO (21:52)
[2022-06-14 22:00] VITALS: PULSE 110; RESP 17; O2SAT 96
[2022-06-14] MEDS: Ondansetron ODT 4 MG Tablet 8 MG PO (22:20)
[2022-06-15] MEDS: Cholestyramine/Sucrose 4 GM/PACKET PO ×2 (05:56→17:39)
[2022-06-15 07:40] VITALS: BP 121/85; PULSE 89; RESP 17; TEMP 36.1; O2SAT 96
[2022-06-15] MEDS: Spironolactone 25 MG Tablet 12.5 MG PO (08:51)
[2022-06-15] MEDS: Magnesium Chloride 64 MG Delay Rel.Tablet 128 MG PO ×2 (08:52→22:18)
[2022-06-15] MEDS: Ascorbic Acid 500 MG Tablet PO ×2 (08:52→17:39)
[2022-06-15] MEDS: Pantoprazole Sodium 20 MG Tablet 40 MG PO ×2 (08:52→22:18)
[2022-06-15] MEDS: Cholecalciferol (VIT D3) 25 MCG TABLET (1,000 UNITS) 50 MCG PO (08:52)
[2022-06-15] MEDS: Vitamin E 400 UNITS Capsule PO (08:52)
[2022-06-15] MEDS: Menthol/Lanolin/Calamine/Znox 113 GM Tube 1 APPLIC TOPICAL ×2 (09:00→22:18)
[2022-06-15] MEDS: Pivot 1.5 Cal 1,000 ML BOTTLE 135 ML GT ×4 (09:00→22:18)
[2022-06-15] MEDS: traMADol 50 MG Tablet 25 MG PO ×2 (11:47→22:14)
--- NOTE | 2022-06-15 13:36 | CASEMGMT ---
Social Work IDT met with patient and friend/POA for Team meeting. Discussed patient's progress in PT/OT/SN. Educated to [facility] insurance with [employer]D 06/19. Confirmed DC to parents and offered for dad/friends to complete therapy training. Explained goal is for another week (after the ) and then setting DC date. Pt agreed and will have parents call to schedule training. Friend inquired about w/c. SW to contact [employer] to run through insurance to check pricing. Pt appreciative. Will ReTeam next week. SW to continue to follow. CELESTE PalmaW
--- NOTE | 2022-06-15 15:36 | PCM.PN.SRG ---
Subjective Subjective Patient's p.o. intake has been improving. Patient is still on supplemental tube feeds. Patient had an EGD and colonoscopy with . Friend patient did have some duodenal ulcers which were coagulated during that time. Objective Data Objective Data Vital Signs: Vital Signs Temp Pulse Resp BP Pulse Ox O2 Del Method 96.9 F L 89 17 121/85 H 96 Room Air 06/15/22 07:40 06/15/22 07:40 06/15/22 07:40 06/15/22 07:40 06/15/22 07:40 06/15/22 07:40 Oxygen Delivery Method Room Air Weight: 90 lb 13.287 oz Body Mass Index (BMI) 29.5 Intake & Output: Intake and Output for Last 24 Hours 06/13/22 06/14/22 06/15/22 23:59 23:59 23:59 Intake Total 3711 / 3711 2333.08 / 2333.08 825 / 825 Output Total 2350 / 2350 2200 / 2200 1600 / 1600 Balance 1361 / 1361 133.08 / 133.08 -775 / -775 Medical Nutrition Assessment Dietitian: Malnutrition Criteria Met Start: 05/29/22 08:26 Freq: Status: Active Protocol: Document 06/09/22 13:22 RMA (Rec: 06/09/22 13:22 RMA [id number]) Nutrition Malnutrition Evidence of Malnutrition Exists Yes Malnutrition (severe): Chronic Evidenced By Suboptimal Energy Intake ( Severe),Weight Loss (Severe) Clinical Problem Chronic Disease or Condition Related Malnutrition Etiology Severe protein-calorie malnutrition in the context of chronic disease related to inadequate oral intake Signs/Symptoms as evidenced by ~11% wt loss x past 6 months and oral intake meeting less than 50% estimated nutrition needs Status Active Problem Recommendation Dietitian Recommendations/Changes 1) Resume fiber-restricted diet s/p coloscopy today and encourage PO w/ meals as tolerated. 2) Continue Pivot 1.5 via NGT nocturnal feeds- 45mL/hour for 12 hours w/ 60mL H2O flush every 4 hours to provide 810 calories, 50 g protein, and 765mL fluid/day which meets about 50-60% of estimated calorie/protein needs. Will monitor PO intake, wt, and adjust nutrition support as indicated. Pending PEG placement today 06/09. 3) Continue premier protein drinks from home as tolerated; dislikes ensure. 4) Adrian BID for wound healing . 5) Weight 3 times per week as ordered. Lab / Micro Data Result Diagrams: 06/13/22 05:40 06/13/22 05:40 Micro: Microbiology 06/08/22 19:45 Stool Stool Lactoferrin - Final 06/08/22 11:08 Stool C. difficile DNA Amplification - Final 06/08/22 11:08 Stool Stool Occult Blood (MARYANN) - Final Occult Blood Positive 05/31/22 09:40 Stool Stool Occult Blood (MARYANN) - Final Physical Exam Narrative Left breast; no obvious mass on exam as prior to patient's 2 chemotherapy treatments. No obvious lymphadenopathy. Patient does have biopsy-proven positive lymph node with clip in place. 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 Discussed procedure including risk of bleeding, infection, lymphedema, injury to long thoracic or thoracodorsal nerves, and anesthesia. Discussed with patient that since she was unable to complete her neoadjuvant chemotherapy due to complications I think that an axillary lymph node dissection would be the best option and also may prevent her from getting additional chemotherapy depending on pathology. We will plan for surgery on 06/27/2022 as patient has been doing well with diet and should be able to heal well as previously her nutrition would have prevented this. Patient is agreeable plan has no further questions this time. I have given the patient options for initial surgical treatment. Options are the following: lumpectomy followed by radiation therapy vs. mastectomy vs. mastectomy followed by immediate reconstruction. I have described the procedures to the patient. I have described the advantages and disadvantages of the options, but I have told the patient that among the options, the survival rate for breast cancer is the same. Patient elected for a mastectomy with no reconstruction. Also discussed that a full lymph node dissection will increase the risk for lymphedema, especially if there are 4 or more lymph nodes positive for metastatic disease and radiation to the axilla is also required. I have told the patient the risks of surgery, including but not limited to: infection, bleeding, scar tissue, seroma and persistent seroma, lymph leak, injury to any blood vessels, injury to any nerves (particularly the long thoracic, the thoracodorsal, and the second intercostal brachial and the resultant sequelae), lymphedema, cosmetic deformity, dysesthesias, wound infections, further surgery (especially if margins are not clear), complications of anesthesia, etc. the patient understands. Samantha Osorio M.D. Pager: [phone] [facility] [address] [place] [address], [facility] [address] [place] [address] Office: [phone] Charges/Coding Visit Charges Inpatient E&M: 97467 Subs Hosp L3
--- NOTE | 2022-06-15 16:01 | PN_ITS ---
Subjective Subjective Nathaniel was seen on team rounds today. Her friend Abrahan was in the room for rounds. Afebrile VSS blood pressure is within normal limits and is stable. The HR fluctuates. In the AM when she first gets up if is WNL but, throughout the day she is mildly tachycardic at rest and with exertion. Maintaining appropriate oxygen saturation on RA She has had 2 very small BM's today and they have some form.......she thinks the Questran is helping. Fluid balance yesterday was +133.08 and she took only 640 cc p.o. Discussed with nursing - no problems that need addressed Reviewed the PT/OT notes Medication list reviewed. Bere is c/o feeling bloated when she gets water flushes after the TF. She feels as though she may vomit. She denies nausea. Not eating breakfast and not drinking enough water. She tells me that today she had 2 small bowel movements this morning and they were both very small but there was some form to them. The number of stools daily has definitely decreased since the Questran was added. She denies abd pain. She is c/o a pain in the area of the R iliac crest and the R buttock that started last night when getting into bed. She denies radiation of the pain down the R leg and denies paresthesia's. The pain seems to get worse with extension of the leg. She is not very mobile in bed and this may be related to not being able to change her position. She had 25 mg of Tramadol for the pain this morning and it did not help. Objective Data Objective Data Vital Signs: Vital Signs Temp Pulse Resp BP Pulse Ox O2 Del Method 96.9 F L 89 17 121/85 H 96 Room Air 06/15/22 07:40 06/15/22 07:40 06/15/22 07:40 06/15/22 07:40 06/15/22 07:40 06/15/22 07:40 Oxygen Delivery Method Room Air Weight: 90 lb 13.287 oz Body Mass Index (BMI) 29.5 Intake & Output: Intake and Output for Last 24 Hours 06/13/22 06/14/22 06/15/22 23:59 23:59 23:59 Intake Total 3711 / 3711 2333.08 / 2333.08 825 / 825 Output Total 2350 / 2350 2200 / 2200 1600 / 1600 Balance 1361 / 1361 133.08 / 133.08 -775 / -775 Medical Nutrition Assessment Dietitian: Malnutrition Criteria Met Start: 05/29/22 08:26 Freq: Status: Active Protocol: Document 06/09/22 13:22 RMA (Rec: 06/09/22 13:22 RMA [id number]) Nutrition Malnutrition Evidence of Malnutrition Exists Yes Malnutrition (severe): Chronic Evidenced By Suboptimal Energy Intake ( Severe),Weight Loss (Severe) Clinical Problem Chronic Disease or Condition Related Malnutrition Etiology Severe protein-calorie malnutrition in the context of chronic disease related to inadequate oral intake Signs/Symptoms as evidenced by ~11% wt loss x past 6 months and oral intake meeting less than 50% estimated nutrition needs Status Active Problem Recommendation Dietitian Recommendations/Changes 1) Resume fiber-restricted diet s/p coloscopy today and encourage PO w/ meals as tolerated. 2) Continue Pivot 1.5 via NGT nocturnal feeds- 45mL/hour for 12 hours w/ 60mL H2O flush every 4 hours to provide 810 calories, 50 g protein, and 765mL fluid/day which meets about 50-60% of estimated calorie/protein needs. Will monitor PO intake, wt, and adjust nutrition support as indicated. Pending PEG placement today 06/09. 3) Continue premier protein drinks from home as tolerated; dislikes ensure. 4) Adrian BID for wound healing . 5) Weight 3 times per week as ordered. Lab / Micro Data Result Diagrams: 06/13/22 05:40 06/13/22 05:40 Micro: Microbiology 06/08/22 19:45 Stool Stool Lactoferrin - Final 06/08/22 11:08 Stool C. difficile DNA Amplification - Final 06/08/22 11:08 Stool Stool Occult Blood (MARYANN) - Final Occult Blood Positive 05/31/22 09:40 Stool Stool Occult Blood (MARYANN) - Final Physical Exam Const alert, oriented x3 and no apparent distress General Appearance: cooperative HEENT HEENT Narrative: she has good color in her face today. Resp clear to auscultation bilaterally Cardio regular rhythm Cardio Narrative: mildly tachycardic in the range of 100 to 109.......she was 89 at 0740 this AM. no ectopy GI soft to palpation, non-tender and non-distended GI Narrative: normal BS's, no guarding with palpation Extremity General Extremity: Negative for edema Skin General Skin Exam: no breakdown Rashes: no rashes Neuro CN's II-XII intact bilaterally Assessment & Plan Assessment/Plan (1) Debility: (2) Severe malnutrition: (3) Ulcer of right lower extremity with fat layer exposed: (4) Hypomagnesemia: (5) Diarrhea: (6) Hypokalemia: PLAN: Plan 1. Continue therapy. 2. we have some loose ends to tie up......potassium is stable but, the magnesi um continues to drop and we have to use IV MAG in addition to the oral MAG Chloride. Will check the Mag and a BMP in the AM. If the mag in the AM is less than 2 will increase the MGCL to 128 mg Q8H....will also consider increasing the Aldactone which can decrease the mag wasting in the urine. 3. H/H is stable 4. stool # is decreasing and stool is starting to firm up some. Need to get Bere to eat more calories so we can decrease the TF. I have also told her she is going to need to consciously keep track of her fluid intake because she has a problem with the kidney and she can not concentrate the urine. I suggested she set an alarm on her phone that reminds her hourly to drink a glass of water. she should be drinking 3525-4575 cc/day and this is not including the Adrian. 5. I think it is reasonable to assume that Bere has anxiety. I suspect this is why the HR is elevated during the day. We discussed starting a low dose beta maxim to blunt the effects of adrenaline on the heart. 6. I suspect the pain in the R buttock is nerve pain and will try Gabapentin 100 mg Q8H PRN to see if this helps. 7. I spoke with Dr. Osorio today and she is planning on doing the mastectomy on the . 8. Will bring Bere's parents in for family in for training on how best to safel y assist Bere when she goes home with them. Charges/Coding Visit Charges Inpatient E&M: 90128 Subs Hosp L2
[2022-06-15 19:38] VITALS: BP 121/71; PULSE 133; RESP 14; TEMP 36.8; O2SAT 100
[2022-06-15 22:00] VITALS: PULSE 118
[2022-06-15 22:10] VITALS: PULSE 118; O2SAT 96
[2022-06-15] MEDS: Gabapentin 100 MG Capsule PO (22:16)
[2022-06-15] MEDS: Acetaminophen 650 MG/20 ML UDC 1000 MG PO (22:16)
[2022-06-15] MEDS: Mirtazapine 15 MG Tablet 7.5 MG PO (22:20)
[2022-06-15] MEDS: 0.9% Saline Lock 10 ML Syringe IV (22:40)
[2022-06-16] MEDS: Cholestyramine/Sucrose 4 GM/PACKET PO ×2 (05:54→17:22)
[2022-06-16] MEDS: 0.9% Saline Lock 10 ML Syringe IV ×2 (05:54→08:31)
[2022-06-16 06:22] LABS: Absolute Lymphocyte Count 1.77 X10^3/uL (0.83-4.51); Absolute Neutrophil Count 5.3 X10^3/uL (2.0-7.7); Basophil# 0.08 X10^3/uL; Basophil% 0.9 % (0-1); Eosinophil# 0.44 X10^3/uL; Hematocrit 36.2 % (37-47); Hemoglobin 11.6 g/dL (12.0-15.0); Lymphocyte # 1.77 X10^3/ul (0.83-4.51); Mean Corpuscular Hgb 30.8 pg (27.0-32.0); Mean Platelet Vol. 9.1 fl (6.2-12.0); Monocyte# 1.27 X10^3/uL; Monocyte% 14.4 % (0-10); NRBC Flagged by Analyzer 0 % (0-5); Neutrophil # 5.25 X10^3/uL (2.7-7.7); Neutrophil % 59.2 % (47-70); POSITIVE COUNT YES; Platelet Count 388 K/mm3 (150-450); RBC Distribution Width CV 16.8 % (11.6-14.6); RBC Distribution Width SD 59.2 fl (35.1-43.9); Red Blood Count 3.77 M/mm3 (4.2-5.4); White Blood Count 8.9 K/mm3 (4.4-11.0)
[2022-06-16 06:23] LABS: Differential Indicated SCAN CRITERIA MET
[2022-06-16 06:32] LABS: Differential Comment SCANNED; Platelet Estimate ADEQUATE (ADEQ)
[2022-06-16 06:35] LABS: Anion Gap 10 (5-15); BUN 43 mg/dL (7-18); BUN/Creat Ratio 85.3 RATIO (10-20); Chloride 100 mmol/L (98-107); EST Glomerular Filtration Rate 141 mL/min (>60); Est Glom Filt Rate - Afr Amer 171 mL/min (>60); Estimated Creatinine Clearance 96.19 ml/min; Glucose 118 mg/dL (74-106); Magnesium 1.9 mg/dL (1.6-2.6); Potassium 3.6 mmol/L (3.5-5.1); Sodium Level 138 mmol/L (136-145)
[2022-06-16 08:15] VITALS: BP 105/67; PULSE 101; RESP 16; TEMP 36.1; O2SAT 98
[2022-06-16] MEDS: Acetaminophen 650 MG/20 ML UDC 1000 MG PO ×2 (08:34→18:09)
[2022-06-16] MEDS: Cholecalciferol (VIT D3) 25 MCG TABLET (1,000 UNITS) 50 MCG PO (08:40)
[2022-06-16] MEDS: Pantoprazole Sodium 20 MG Tablet 40 MG PO ×2 (08:40→21:43)
[2022-06-16] MEDS: Magnesium Chloride 64 MG Delay Rel.Tablet 128 MG PO ×2 (08:41→21:42)
[2022-06-16] MEDS: Vitamin E 400 UNITS Capsule PO (08:41)
[2022-06-16] MEDS: Ascorbic Acid 500 MG Tablet PO ×2 (08:41→17:22)
[2022-06-16] MEDS: Spironolactone 25 MG Tablet 12.5 MG PO (08:42)
[2022-06-16] MEDS: MENTHOL 226.8 GM JAR 1 APPLIC TOPICAL (08:48)
--- NOTE | 2022-06-16 10:00 | PCM.PROGNOTE ---
Subjective Subjective Afebrile VSS-heart rate was as high as 133 last night at approximately 7:30 PM. Heart rate today is 101. BP this morning is 105/67 which is lower than it has been. Maintaining appropriate oxygen saturation on RA Oral intake yesterday was 1590 but, only 780 was oral and the rest was tube feed. Urine output was 2400+ and the fluid balance was -810. Overnight the fluid balance was -10 cc. Discussed with nursing - no problems that need addressed Reviewed the PT/OT/ST notes Medication list reviewed. All lab was personally reviewed. Hemoglobin is 11.6 today, up from 10.3 on 06/13/2022. I suspect this is due to intravascular volume depletion/hemoconcentration. White blood cell count is normal and platelets are also within normal limits. Sodium is normal at 138 and the potassium is 3.6 today. BUN is up to 43 and the creatinine is up to 0.5. Magnesium is normal at 1.9. Bere denies chest pain, shortness of breath, palpitations, lightheadedness, nausea, abdominal pain or cramping, dysuria and calf pain. She is sleeping well and appetite is good. Objective Data Objective Data Vital Signs: Vital Signs Temp Pulse Resp BP Pulse Ox O2 Del Method 97.0 F L 101 H 16 105/67 98 Room Air 06/16/22 08:15 06/16/22 08:15 06/16/22 08:15 06/16/22 08:15 06/16/22 08:15 06/16/22 08:15 Oxygen Delivery Method Room Air Weight: 92 lb 9.506 oz Body Mass Index (BMI) 29.5 Intake & Output: Intake and Output for Last 24 Hours 06/14/22 06/15/22 06/16/22 23:59 23:59 23:59 Intake Total 2333.08 / 2333.08 1590 / 1590 590 / 590 Output Total 2200 / 2200 2400 / 2400 600 / 600 Balance 133.08 / 133.08 -810 / -810 -10 / -10 Medical Nutrition Assessment Dietitian: Malnutrition Criteria Met Start: 05/29/22 08:26 Freq: Status: Active Protocol: Document 06/15/22 16:16 AG (Rec: 06/15/22 16:16 AG [id number]) Nutrition Malnutrition Evidence of Malnutrition Exists Yes Malnutrition (severe): Chronic Evidenced By Suboptimal Energy Intake ( Severe),Weight Loss (Severe) Clinical Problem Chronic Disease or Condition Related Malnutrition Etiology Severe protein-calorie malnutrition in the context of chronic disease related to inadequate oral intake Signs/Symptoms as evidenced by ~11% wt loss x past 6 months and oral intake meeting less than 50% estimated nutrition needs Status Active Problem Recommendation Dietitian Recommendations/Changes 1) Regular diet as tolerated 2) Will adjust Pivot 1.5 via PEG to bolus feeds after meals and at HS- 135mL bolus 4x/day w/ 15mL H2O flush before and after each bolus plus 60mL H2O flush every 6 hours to provide 810 calories, 50 g protein, and 765mL fluid/day. As ordered, enteral nutrition meets about 50-60% of estimated calorie/protein needs. Will monitor PO intake, wt, and adjust nutrition support as indicated. 3) Continue premier protein drinks from home as tolerated; dislikes ensure. Breakfast fruit smoothie w/ ice, vanilla ensure, beneprotein. 4) Adrian BID for wound healing . 5) Weight daily as ordered. Lab / Micro Data Result Diagrams: 06/16/22 06:00 06/19/22 06:05 Labs: Laboratory Results - last 24 hr 06/16/22 06:00: WBC 8.9, RBC 3.77 L, Hgb 11.6 L, Hct 36.2 L, MCV 96.0, MCH 30.8, MCHC 32.0, RDW Std Deviation 59.2 H, RDW Coeff of Seema 16.8 H, Plt Count 388, MPV 9.1, Immature Gran % (Auto) 0.500, Neut % (Auto) 59.2, Lymph % (Auto) 20.0, [place] % (Auto) 14.4 H, Eos % (Auto) 5.0, Baso % (Auto) 0.9, Absolute Neuts (auto) 5.3, Absolute Lymphs (auto) 1.77, Nucleated RBC % 0, Differential Comment SCANNED, Platelet Estimate ADEQUATE 06/16/22 06:00: Sodium 138, Potassium 3.6, Chloride 100, Carbon Dioxide 28.0, Anion Gap 10, BUN 43 H, Creatinine 0.50 L, Estim Creat Clear Calc 96.19, Est GFR (MDRD) Af Amer 171, Est GFR (MDRD) Non-Af 141, BUN/Creatinine Ratio 85.3 H, Glucose 118 H, Calcium 10.0, Magnesium 1.9 Micro: Microbiology 06/08/22 19:45 Stool Stool Lactoferrin - Final 06/08/22 11:08 Stool C. difficile DNA Amplification - Final 06/08/22 11:08 Stool Stool Occult Blood (MARYANN) - Final Occult Blood Positive 05/31/22 09:40 Stool Stool Occult Blood (MARYANN) - Final Physical Exam Const alert, oriented x3 and no apparent distress HEENT Mouth: dry mucous membranes Resp clear to auscultation bilaterally Effort and Inspection: Negative for tachypneic Cardio regular rhythm, no murmurs and no gallops Rate: tachycardic GI normal to inspection, nondistended, normoactive bowel sounds and soft to palpation GI Narrative: no guarding with palpation Extremity no calf tenderness General Extremity: Negative for edema Skin Wound Narrative: Will debride the wound tomorrow. 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 Continue therapy 2. encouraged her to increase the fluid intake to at least 1500 cc's in addition to the Adrian. 3. Recheck BMP and a mag on 06/19/22 Charges/Coding Visit Charges Inpatient E&M: 30210 Subs Hosp L2
[2022-06-16] MEDS: Pivot 1.5 Cal 1,000 ML BOTTLE 135 ML GT ×3 (10:14→21:45)
[2022-06-16] MEDS: Ondansetron ODT 4 MG Tablet 8 MG PO (10:21)
[2022-06-16 13:05] LABS: Calprotectin, Stool 48 ug/g (0-120); Fats, Neutral Increased (.); Fats, Total Increased (.)
[2022-06-16] MEDS: Gabapentin 100 MG Capsule PO (14:13)
[2022-06-16] MEDS: traMADol 50 MG Tablet PO (18:08)
[2022-06-16 19:38] VITALS: BP 137/89; PULSE 115; RESP 16; TEMP 36.7; O2SAT 100
[2022-06-16] MEDS: Mirtazapine 15 MG Tablet PO (21:43)
[2022-06-16 22:00] VITALS: PULSE 108; RESP 15
[2022-06-17] MEDS: Cholestyramine/Sucrose 4 GM/PACKET PO ×2 (05:57→16:58)
[2022-06-17 07:55] VITALS: BP 125/77; PULSE 106; RESP 16; TEMP 37.1; O2SAT 99
[2022-06-17] MEDS: Pantoprazole Sodium 20 MG Tablet 40 MG PO ×2 (08:26→22:20)
[2022-06-17] MEDS: Cholecalciferol (VIT D3) 25 MCG TABLET (1,000 UNITS) 50 MCG PO (08:26)
[2022-06-17] MEDS: Magnesium Chloride 64 MG Delay Rel.Tablet 128 MG PO ×2 (08:27→22:20)
[2022-06-17] MEDS: Ascorbic Acid 500 MG Tablet PO ×2 (08:27→18:08)
[2022-06-17] MEDS: Vitamin E 400 UNITS Capsule PO (08:27)
[2022-06-17] MEDS: Spironolactone 25 MG Tablet 12.5 MG PO (08:28)
[2022-06-17] MEDS: Pivot 1.5 Cal 1,000 ML BOTTLE 135 ML GT ×4 (08:28→22:21)
[2022-06-17] MEDS: Gabapentin 100 MG Capsule PO ×2 (08:40→22:20)
[2022-06-17] MEDS: Ondansetron ODT 4 MG Tablet 8 MG PO ×2 (08:57→23:03)
[2022-06-17] MEDS: Morphine 2 MG/ML Syringe IV (10:02)
[2022-06-17] MEDS: 0.9% Saline Lock 10 ML Syringe IV (10:03)
[2022-06-17] MEDS: Lidocaine 4% 50 ML Bottle TOPICAL (10:12)
--- NOTE | 2022-06-17 11:01 | PN_ITS ---
Subjective Subjective Afebrile VSS Maintaining appropriate oxygen saturation on RA Oral intake is much improved. She took 1400 cc of fluid p.o. yesterday. Total intake was 20-90 but she had 2700 out for a balance of -410. Weight is up to 93 pounds today. Discussed with nursing - no problems that need addressed Reviewed the PT/OT/ST notes Medication list reviewed. BM's are getting some increased consistency and she is having less BM's a day. She is taking in more calories PO. Some mild nausea today but, no vomiting. Objective Data Objective Data Vital Signs: Vital Signs Temp Pulse Resp BP Pulse Ox O2 Del Method 98.7 F 106 H 16 125/77 H 99 Room Air 06/17/22 07:55 06/17/22 07:55 06/17/22 07:55 06/17/22 07:55 06/17/22 07:55 06/17/22 07:55 Oxygen Delivery Method Room Air Weight: 93 lb 0.561 oz Body Mass Index (BMI) 29.5 Intake & Output: Intake and Output for Last 24 Hours 06/15/22 06/16/22 06/17/22 23:59 23:59 23:59 Intake Total 1590 / 1590 2290 / 2290 465 / 465 Output Total 2400 / 2400 2700 / 2700 600 / 600 Balance -810 / -810 -410 / -410 -135 / -135 Medical Nutrition Assessment Dietitian: Malnutrition Criteria Met Start: 05/29/22 08:26 Freq: Status: Active Protocol: Document 06/15/22 16:16 AG (Rec: 06/15/22 16:16 [id number]) Nutrition Malnutrition Evidence of Malnutrition Exists Yes Malnutrition (severe): Chronic Evidenced By Suboptimal Energy Intake ( Severe),Weight Loss (Severe) Clinical Problem Chronic Disease or Condition Related Malnutrition Etiology Severe protein-calorie malnutrition in the context of chronic disease related to inadequate oral intake Signs/Symptoms as evidenced by ~11% wt loss x past 6 months and oral intake meeting less than 50% estimated nutrition needs Status Active Problem Recommendation Dietitian Recommendations/Changes 1) Regular diet as tolerated 2) Will adjust Pivot 1.5 via PEG to bolus feeds after meals and at HS- 135mL bolus 4x/day w/ 15mL H2O flush before and after each bolus plus 60mL H2O flush every 6 hours to provide 810 calories, 50 g protein, and 765mL fluid/day. As ordered, enteral nutrition meets about 50-60% of estimated calorie/protein needs. Will monitor PO intake, wt, and adjust nutrition support as indicated. 3) Continue premier protein drinks from home as tolerated; dislikes ensure. Breakfast fruit smoothie w/ ice, vanilla ensure, beneprotein. 4) Adrian BID for wound healing . 5) Weight daily as ordered. Lab / Micro Data Result Diagrams: 06/16/22 06:00 06/16/22 06:00 Labs: Laboratory Results - last 24 hr 06/08/22 19:45: Stool Neutral Fats Increased, Stool Total Fats Increased, Stool Calprotectin 48 Micro: Microbiology 06/08/22 19:45 Stool Stool Lactoferrin - Final 06/08/22 11:08 Stool C. difficile DNA Amplification - Final 06/08/22 11:08 Stool Stool Occult Blood (MARYANN) - Final Occult Blood Positive 05/31/22 09:40 Stool Stool Occult Blood (MARYANN) - Final Physical Exam Const alert and no apparent distress Constitutional Narrative: Good color in her face. General Appearance: cooperative Cardio regular rhythm Extremity General Extremity: Negative for edema Skin Wounds: wounds noted size Size: 8.8L X 2.9 W X 1 mm deep at the distal bx site X 3 mm deep at the prox site, bed granulating well, beefy red, No crusted, No with tunneling, No necrotic, No with undermining and other 5% slough at the bx site proximally which was debrided off the wound. Bed is vascular beefy red. No odor and no mickey-wound erythema or increased warmth to touch. 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 Continue therapy 2. Increased Questran to 3 times daily to firm up the stool 3. check a BMP and a Mag on Sunday 4. Continue TF 5. Plan is for Left mastectomy on 05/27/23. would like to keep her in rehab until the surgery to optimize nutrition so the mastectomy site will be able to heal. She is starting to take more calories orally but, likely will not feel like eating for a while after surgery so plan on continuing TF. Appreciate the press operator carbon blocks's help with diet management/TF management. 6. Consisder a trigger point injection R buttock for localized myospasm. Charges/Coding Procedures Integumentary [id number]: [id number] Archana subq tissue 20 sq cm/<
[2022-06-17 12:05] VITALS: BP 106/72; PULSE 117
[2022-06-17] MEDS: Metoprolol Tartrate 25 MG Tablet 12.5 MG PO (12:05)
[2022-06-17 20:30] VITALS: O2SAT 99
[2022-06-17 20:31] VITALS: BP 117/80; PULSE 115; RESP 14; TEMP 37.1; O2SAT 99
[2022-06-17] MEDS: Mirtazapine 15 MG Tablet PO (22:19)
[2022-06-17] MEDS: Acetaminophen 650 MG/20 ML UDC 1000 MG PO (22:21)
[2022-06-18] MEDS: Cholestyramine/Sucrose 4 GM/PACKET PO ×3 (06:15→16:34)
[2022-06-18 07:54] VITALS: BP 104/68; PULSE 90; RESP 16; TEMP 36; O2SAT 98
[2022-06-18 08:51] VITALS: PULSE 90
[2022-06-18] MEDS: Pantoprazole Sodium 20 MG Tablet 40 MG PO ×2 (08:51→22:14)
[2022-06-18] MEDS: Metoprolol Tartrate 25 MG Tablet 12.5 MG PO (08:51)
[2022-06-18] MEDS: Magnesium Chloride 64 MG Delay Rel.Tablet 128 MG PO ×2 (08:51→22:14)
[2022-06-18] MEDS: Ascorbic Acid 500 MG Tablet PO ×2 (08:52→18:39)
[2022-06-18] MEDS: Spironolactone 25 MG Tablet 12.5 MG PO (08:52)
[2022-06-18] MEDS: Cholecalciferol (VIT D3) 25 MCG TABLET (1,000 UNITS) 50 MCG PO (08:52)
[2022-06-18] MEDS: Vitamin E 400 UNITS Capsule PO (08:52)
[2022-06-18] MEDS: Pivot 1.5 Cal 1,000 ML BOTTLE 135 ML GT ×4 (09:09→22:16)
[2022-06-18] MEDS: 0.9% Saline Lock 10 ML Syringe IV ×2 (09:37→22:17)
[2022-06-18 19:43] VITALS: BP 121/72; PULSE 119; RESP 16; TEMP 36.6; O2SAT 99
[2022-06-18] MEDS: MENTHOL 226.8 GM JAR 1 APPLIC TOPICAL (20:27)
[2022-06-18] MEDS: Acetaminophen 650 MG/20 ML UDC 1000 MG PO (22:14)
[2022-06-18] MEDS: Gabapentin 100 MG Capsule PO (22:14)
[2022-06-18] MEDS: Mirtazapine 15 MG Tablet PO (22:16)
[2022-06-18 22:29] VITALS: O2SAT 99
[2022-06-19 07:02] LABS: Anion Gap 9 (5-15); BUN 41 mg/dL (7-18); BUN/Creat Ratio 100.2 RATIO (10-20); Chloride 103 mmol/L (98-107); Creatinine, Serum 0.41 mg/dL (0.55-1.02); EST Glomerular Filtration Rate 180 mL/min (>60); Est Glom Filt Rate - Afr Amer 218 mL/min (>60); Estimated Creatinine Clearance 118.42 ml/min; Glucose 100 mg/dL (74-106); Magnesium 1.9 mg/dL (1.6-2.6); Potassium 3.2 mmol/L (3.5-5.1); Sodium Level 137 mmol/L (136-145)
[2022-06-19 07:05] VITALS: BP 124/76; PULSE 94; RESP 16; TEMP 36.7; O2SAT 96
[2022-06-19] MEDS: Spironolactone 25 MG Tablet 12.5 MG PO ×2 (08:41→21:01)
[2022-06-19] MEDS: Magnesium Chloride 64 MG Delay Rel.Tablet 128 MG PO ×2 (08:41→21:00)
[2022-06-19] MEDS: Vitamin E 400 UNITS Capsule PO (08:41)
[2022-06-19] MEDS: Ascorbic Acid 500 MG Tablet PO ×2 (08:41→17:10)
[2022-06-19 08:42] VITALS: BP 124/76; PULSE 94
[2022-06-19] MEDS: Pantoprazole Sodium 20 MG Tablet 40 MG PO ×2 (08:42→21:00)
[2022-06-19] MEDS: Cholecalciferol (VIT D3) 25 MCG TABLET (1,000 UNITS) 50 MCG PO (08:42)
[2022-06-19] MEDS: Metoprolol Tartrate 25 MG Tablet 12.5 MG PO (08:42)
[2022-06-19] MEDS: Pivot 1.5 Cal 1,000 ML BOTTLE 135 ML GT ×3 (08:57→23:19)
--- NOTE | 2022-06-19 13:40 | CASEMGMT ---
Social Work Pt has surgery scheduled 06/27 and requesting to return to [facility] after surgery for recovery. Goal is for pt to DC from [facility] prior to surgery and then submit for precert to return. Pt is aware insurance may not approve to remain until surgery and/or to return after surgery. SW to continue to follow. Deloris Lemus, [employer]
[2022-06-19 19:37] VITALS: BP 128/77; PULSE 124; RESP 18; TEMP 37.1; O2SAT 97
[2022-06-19] MEDS: Gabapentin 100 MG Capsule PO (20:59)
[2022-06-19] MEDS: Mirtazapine 15 MG Tablet PO (21:00)
[2022-06-19] MEDS: Ondansetron ODT 4 MG Tablet 8 MG PO (22:42)
[2022-06-19] MEDS: Potassium Chloride Oral Soln 20 MEQ/15 ML UDC 40 MEQ PO (23:18)
[2022-06-20] MEDS: Cholestyramine/Sucrose 4 GM/PACKET PO (07:01)
[2022-06-20 07:47] VITALS: BP 107/73; PULSE 105; RESP 12; TEMP 36.6; O2SAT 98
[2022-06-20] MEDS: Spironolactone 25 MG Tablet 12.5 MG PO ×2 (09:03→21:40)
[2022-06-20] MEDS: Magnesium Chloride 64 MG Delay Rel.Tablet 128 MG PO ×2 (09:03→21:42)
[2022-06-20] MEDS: Vitamin E 400 UNITS Capsule PO (09:03)
[2022-06-20] MEDS: Ascorbic Acid 500 MG Tablet PO ×2 (09:03→18:18)
[2022-06-20] MEDS: Pantoprazole Sodium 20 MG Tablet 40 MG PO ×2 (09:03→21:42)
[2022-06-20 09:04] VITALS: BP 107/73; PULSE 105
[2022-06-20] MEDS: Cholecalciferol (VIT D3) 25 MCG TABLET (1,000 UNITS) 50 MCG PO (09:04)
[2022-06-20] MEDS: Metoprolol Tartrate 25 MG Tablet 12.5 MG PO (09:04)
[2022-06-20] MEDS: Pivot 1.5 Cal 1,000 ML BOTTLE 135 ML GT ×3 (10:12→21:44)
[2022-06-20] MEDS: Morphine 2 MG/ML Syringe IV (12:22)
[2022-06-20] MEDS: 0.9% Saline Lock 10 ML Syringe IV ×2 (12:22→20:31)
--- NOTE | 2022-06-20 13:16 | PN_ITS ---
Subjective Subjective Afebrile VSS-blood pressure stable with no hypotension. Heart rate over the past 48 hours has ranged from 90-124. Maintaining appropriate oxygen saturation on RA Oral intake is improving. She had a whole chicken sandwich for lunch today. Oral intake of fluids yesterday was only 680 cc with a fluid balance of -65. 3 bowel movements yesterday, 2 medium and 1 small. She has had 1 bowel movement so far today and it is soft. Denies abd cramping. Discussed with nursing - no problems that need addressed Reviewed the PT/OT notes Medication list reviewed. All lab was personally reviewed. The potassium yesterday was low at 3.2 and the BUN was 41 with a creatinine of 0.41, down from 0.5 on 06/16/2022. Magnesium is stable at 1.9 and she has not had any intravenous magnesium for several days. Bere denies lightheadedness, vertigo, CP, SOB at rest, SOB with exertion, cough, nausea, vomiting, abd pain, constipation, dysuria, calf pain and ankle swelling. Objective Data Objective Data Vital Signs: Vital Signs Temp Pulse Resp BP Pulse Ox O2 Del Method 98 F 105 H 12 107/73 98 Room Air 06/20/22 07:47 06/20/22 09:04 06/20/22 07:47 06/20/22 09:04 06/20/22 07:47 06/20/22 07:47 Oxygen Delivery Method Room Air Weight: 92 lb 6.4 oz Body Mass Index (BMI) 29.5 Intake & Output: Intake and Output for Last 24 Hours 06/18/22 06/19/22 06/20/22 23:59 23:59 23:59 Intake Total 2365 / 2365 1235 / 1235 340 / 340 Output Total 2150 / 2150 1300 / 1300 550 / 550 Balance 215 / 215 -65 / -65 -210 / -210 Medical Nutrition Assessment Dietitian: Malnutrition Criteria Met Start: 05/29/22 08:26 Freq: Status: Active Protocol: Document 06/15/22 16:16 AG (Rec: 06/15/22 16:16 AG [id number]) Nutrition Malnutrition Evidence of Malnutrition Exists Yes Malnutrition (severe): Chronic Evidenced By Suboptimal Energy Intake ( Severe),Weight Loss (Severe) Clinical Problem Chronic Disease or Condition Related Malnutrition Etiology Severe protein-calorie malnutrition in the context of chronic disease related to inadequate oral intake Signs/Symptoms as evidenced by ~11% wt loss x past 6 months and oral intake meeting less than 50% estimated nutrition needs Status Active Problem Recommendation Dietitian Recommendations/Changes 1) Regular diet as tolerated 2) Will adjust Pivot 1.5 via PEG to bolus feeds after meals and at HS- 135mL bolus 4x/day w/ 15mL H2O flush before and after each bolus plus 60mL H2O flush every 6 hours to provide 810 calories, 50 g protein, and 765mL fluid/day. As ordered, enteral nutrition meets about 50-60% of estimated calorie/protein needs. Will monitor PO intake, wt, and adjust nutrition support as indicated. 3) Continue premier protein drinks from home as tolerated; dislikes ensure. Breakfast fruit smoothie w/ ice, vanilla ensure, beneprotein. 4) Adrian BID for wound healing . 5) Weight daily as ordered. Lab / Micro Data Result Diagrams: 06/16/22 06:00 06/19/22 06:05 Labs: Laboratory Results - last 24 hr 06/19/22 06:05: Albumin 3.0 L Micro: Microbiology 06/08/22 19:45 Stool Stool Lactoferrin - Final 06/08/22 11:08 Stool C. difficile DNA Amplification - Final 06/08/22 11:08 Stool Stool Occult Blood (MARYANN) - Final Occult Blood Positive 05/31/22 09:40 Stool Stool Occult Blood (MARYANN) - Final Physical Exam Const alert and oriented x3 Constitutional Narrative: pleasant, upbeat General Appearance: cooperative HEENT Mouth: dry mucous membranes Resp clear to auscultation bilaterally Cardio regular rate, regular rhythm and no murmurs Cardio Narrative: mildly tachycardic in the range of 100 to 109.......she was 89 at 0740 this AM. no ectopy GI normal to inspection, nondistended, normoactive bowel sounds, soft to palpation and non-tender GI Narrative: No guarding with palpation Extremity normal capillary refill and no calf tenderness General Extremity: Negative for edema Skin General Skin Exam: no breakdown Rashes: no rashes Wounds: wounds noted size Size: 8.8L X 2.9 W X 1 mm deep at the distal bx site X 3 mm deep at the prox site, bed granulating well, beefy red, No crusted, No with tunneling, No necrotic, No with undermining and other 5% slough at the bx site proximally which was debrided off the wound. Bed is vascular beefy red. No odor and no mickey-wound erythema or increased warmth to touch. , No drainage, No no odor and No surrounding erythema Wound Narrative: The wound did not need debrided today. There is 95% beefy red granulation tissue and one 2 mm x 2 mm area of slough at the site of the proximal skin biopsy. The lower biopsy area is now filled in and even with the skin. There is no periwound erythema, no odor and no purulent discharge. Epithelialization from the margins of the wound continues to increase in the size of the wound continues to decrease. Neuro CN's II-XII intact bilaterally Speech: speech normal Psych thought process normal, cooperative and affect normal Assessment & Plan Assessment/Plan (1) Debility: PLAN: Continue therapy. Bere will be discharged for mastectomy on 06/27/2022. (2) Intra-abdominal abscess: PLAN: Resolved. More likely than not secondary to a ruptured diverticulum. (3) Severe malnutrition: PLAN: Nutrition is much better than at admission and her oral intake is increasing. We will continue to feed per the support services rep orders. (4) Ulcer of right lower extremity with fat layer exposed: PLAN: This continues to improve and the size is significantly decreased from admission. There is new epithelium which is progressively increasing from the margins inward. No sign of infection. Continue Lilibeth with dressing changes daily. Debridement as needed every 2 to 3 days. (5) Diarrhea: PLAN: Bowel movements have decreased with the initiation of Questran 4 g 3 times daily. (6) Hypomagnesemia: PLAN: Currently stable at 1.9 on magnesium chloride 128 mg twice daily. (7) Hypokalemia: PLAN: Patient was given 40 mEq extra potassium yesterday for a potassium of 3.2. Aldactone was increased to 12.5 mg twice daily. Will recheck potassium or Sunday. (8) Carcinoma of left breast metastatic to axillary lymph node: PLAN: Oncology consult ordered to discuss initiating Tamoxifen for estrogen receptor positive breast CA. (9) PEG (percutaneous endoscopic gastrostomy) status: Charges/Coding Visit Charges Inpatient E&M: 33802 Subs Hosp L2
--- NOTE | 2022-06-20 17:50 | CON.PCM.ON_ITS ---
Assessment & Plan Assessment/Plan (1) Carcinoma of left breast metastatic to axillary lymph node: Status: Acute Code(s): C50.912 - Malignant neoplasm of unspecified site of left female breast; C77.3 - Secondary and unspecified malignant neoplasm of axilla and upper limb lymph nodes Plan: 41-year-old premenopausal female with? clinical stage IIB (T2,N1, M0) invasive ductal carcinoma of the left breast, nuclear grade 2-3, ER positive (over 95% moderate), VA positive (over 95% strong) HER2/edgardo overexpressed 3+, Ki-67 +40%. Genetic testing (DNA Guide) showed no known deleterious mutation. Received 4/6 cycles of neoadjuvant therapy wtih doctaxel, carboplatin, trastuzumab, pertuzumab (pertuzumab dc with cycle 3 d/t diarrhea). Her care was complicated by severe malnutrition, electrolyte aberrancies, RLE wound and phlegmon into abd wall musculature (05/22/22)- all requiring inpatient care. Thus, d/t intolerance the final 2 cycles of TCHP were aborted. It appears overall her condition is improving, specifically nutritional status and wound healing. Tentatively she is scheduled to undergo left breast mastectomy under the care of Dr. Osorio on 06/27/2022. Keeping in mind some of the aggressive features associated with her disease, we engaged in conversation about implementing endocrine therapy. The patient has been thoroughly educated to risks/benefits associated with tamoxifen. Specifically, she has been educated to potential side effects, recommendations for symptom management, and circumstances in which she should contact provider prior to planned follow up, such as swelling/pain of her extremities or vaginal bleeding. Stressed the importance of annual pelvic exams. Encouraged to seek immediate medical attention if she develops CP/SOB. A significant amount of time was allotted for questions. All the patient's concerns were addressed to her satisfaction and she is agreeable to proceed. Patient is to follow-up with [place] [facility] upon discharge from rehab to assess adherence and tolerance to tamoxifen and review pathology that will be associated with left breast mastectomy and axillary lymph node sampling. HPI Consult Data Date of Service:: 06/21/22 PCP / Referring Provider: Dr. Jam Verde MD Attending: Dr. Anabela Disla DO Chief Complaint Chief Complaint: Breast cancer History of Present Illness History of Present Illness: Ms. Bere Godinez is a 41-year-old premenopausal female with?diagnosed January 18, 2022 with clinical stage IIB (T2,N1, M0) invasive ductal carcinoma of the left breast, nuclear grade 2-3,ER positive (over 95% moderate), VA positive (over 95% strong) HER2/edgardo overexpressed 3+, Ki-67 +40%. Genetic testing (soraida) showed no known deleterious mutation. PET/CT obtained February 22, 2022 for initial staging showed no evidence for distant metastatic disease. She began neoadjuvant systemic therapy with docetaxel, carboplatin, trastuzumab and pertuzumab on February 28, 2022.?She developed rather abrupt dyspnea and orthopnea within 24 hours of cycle 2 on March 21 2022.? ER evaluation did not suggest cardiac failure, CTA showed no evidence of PE but there were multiple bilateral nodules concerning for metastatic disease.? Nodules were too small to biopsy by CT guidance and resolved spontaneously without a specific diagnosis b eiamada made a week later. Developed a right lower extremity wound 04/04/22 and follows with the [facility] wound center. Main toxicities encountered with chemotherapy have been GI, with mucositis, diarrhea, electrolyte imbalance (hypokalemia and hypomagnesemia).? As of cycle 3 Perjeta was discontinued and GI symptoms improved modestly. Her care has been complicated by suboptimal adherence to the use of supportive medications at home, primarily antiemetics, antidiarrheals, and oral electrolyte replacement. This led to dehydration and tachycardia requiring frequent interventions with IV fluids and electrolytes in the [facility] infusion suite and weekly office visits while receiving chemo-immunotherapy. She received cycle 4 docetaxel, carboplatin, trastuzumab on 05/10/22. The patient presented to [facility] ED on 05/22/22 with c/o nausea and RLQ pain.? Labs showed WBC 47.7, Hgb 8.3 and plt 158, potassium 2.2, calcium 7.4, magnesium 0.9. ?CT abdomen with contrast showed 3 cm phlegmon lateral to the descending colon with invasion of the anterior abd wall. She was subsequently admitted for management of acute colitis. Began broad spectrum antibiotics, IV hydration and correction of electrolyte aberrancies. Discharged to rehab unit on 05/28/22. She underwent EGD and colonoscopy on 06/09/22 under the care of Dr. Byrd. Was reported to have normal esophagus, small hiatal hernia and multiple oozing duodenal ulcers (coagulated), and diverticulosis through the entire colon. A PEG tube was placed at that time. Interval History Interval History: Upon entering the room, patient is sitting upright in bed on her laptop conversing with her sister and niece. Patient reports she is making progress with PO fluid intake and nutrition. She is also pleased to report RLE wound is healing. She is tentatively planned to undergo left breast mastectomy on 06/27/22 under the care of Dr. Osorio. Specifically denies dizziness, headache, CP, palpitations, cough, SOB, abd pain, N/V/D, swelling/pain of her extremities. Advanced Directives Power of School Adjustment Counselor: Yes Living Will: Yes [facility] Medical History (Updated 06/17/22 @ 11:[address] Anabela Disla, ) Alcohol use Anxiety Arthritis Arthrogryposis Braces as ambulation aid CINV (chemotherapy-induced nausea and vomiting) CPAP (continuous positive airway pressure) dependence Dehydration Depression Diarrhea Diarrhea due to drug Elevated C-reactive protein (CRP) (12/26/21) Encounter for chemotherapy management Encounter for education Heartburn History of diverticulitis History of echocardiogram History of edema History of irregular heartbeat Hypokalemia Hypomagnesemia Localized peritonitis Lung nodule, multiple Mucositis (ulcerative) due to antineoplastic therapy Mucositis (ulcerative) due to antineoplastic therapy Nausea Non-smoker Oral candidiasis Phlegmonous peritonitis Port-A-Cath in place Sepsis without acute organ dysfunction Sleep apnea Thrombocytosis Thrombocytosis Wears glasses Home Medications cholecalciferol (vitamin D3) 25 mcg (1,000 unit) capsule 2,000 unit PO DAILY Supplement 01/25/22 [History Last Taken Unknown] duloxetine 20 mg capsule,delayed release 20 mg PO DAILY Depression 01/25/22 [History Last Taken Unknown] lidocaine-prilocaine 2.5 %-2.5 % topical cream 1 applic topical ONCE PRN port access 30 days #30 grams 02/23/22 [Rx Last Taken Unknown] prochlorperazine maleate 10 mg tablet 10 mg PO Q6H PRN nausea and vomiting #30 tabs 02/23/22 [Rx Last Taken Unknown] Magnesium Malate 750 mg PO QHS Supplement 02/28/22 [History Last Taken Unknown] ondansetron 8 mg disintegrating tablet 8 mg PO Q8H PRN nausea and vomiting #30 tabs 04/18/22 [Rx Last Taken Unknown] MAGIC MOUTH WASH (BMX) 180 mL suspension 15 ml PO .Q6HR Mouth sores 05/22/22 [History Last Taken Unknown] scopolamine base 1 mg over 3 days transdermal patch 1 patch transdermal Q72H Nausea 05/22/22 [History Last Taken Unknown] acetaminophen 650 mg/20.3 mL oral solution 1,000 mg (31.2308 mL) PO Q8H PRN Pain 1-10 Or Fever #0 mL 05/28/22 [Rx Last Taken Unknown] food supplemt, lactose-reduced 0.08 gram-1.5 kcal/mL oral liquid (Ensure Plus High Protein) 120 ml PO 4X/DAY Supplement 05/28/22 [History Last Taken Unknown] loperamide 2 mg capsule 4 mg PO Q4H PRN PRN Diarrhea #30 caps 05/28/22 [Rx Last Taken Unknown] menthol 0.44 %-zinc oxide 20.6 % topical ointment (Calmoseptine) 1 applic to pical TID Skin protection 05/28/22 [History Last Taken Unknown] meropenem 1 gram intravenous solution 1 g IV Q8 Antibiotic 05/28/22 [History Last Taken Unknown] midodrine 5 mg tablet 10 mg PO TIDCM BP 05/28/22 [History Last Taken Unknown] pantoprazole 40 mg tablet,delayed release 40 mg PO DAILY GERD 05/28/22 [History Last Taken Unknown] potassium chloride 20 mEq/15 mL oral liquid 20 meq PO TID Supplement 05/28/22 [History Last Taken Unknown] sennosides 8.6 mg-docusate sodium 50 mg tablet (Stool Softener-Stimulant Laxative) 2 tab PO BID PRN PRN Constipation #0 tabs 05/28/22 [Rx Last Taken Unknown] sodium chloride 0.9 % (flush) (Normal Saline Flush 0.9 % injection syringe) 10 - 40 ml IV UD PRN IV flush 05/28/22 [History Last Taken Unknown] Allergy/AdvReac Type Severity Reaction Status Date / Time kiwi Allergy Mild Anaphylaxis Verified 05/22/22 11:58 Penicillins Allergy Mild Anaphylaxis Verified 05/22/22 11:58 Gadolinium-MRI Contrast AdvReac Shortness Verified 05/25/22 17:06 Medium of breath [contrast dye] Family History Mother Diabetes Hypertension High cholesterol Thyroid disorder Uncle Cancer non-hodgkins lymphoma Grandfather Heart disease Grandmother Heart disease Brother Hypertension Unknown Breast cancer mother had 2 cousins with aggressive breast cancer Unknown Thyroid cancer maternal cousin Other Arthritis Depression Surgical History (Updated 06/12/22 @ 11:[address] Anabela Disla DO) H/O release of tendon History of lymph node biopsy History of spinal fusion Social History household members: family current occupational status: employed current occupation: [employer] Smoking Status: Never smoker alcohol intake: current alcohol intake frequency: holidays/special occasions only details: occasional substance use type: does not use ROS ROS Narrative Negative except as documented in the interval HPI Physical Exam Narrative ECOG 3 Const alert and oriented x3 HEENT Mouth: dry mucous membranes Eyes conjunctivae normal and no scleral icterus Eyes Narrative: wears glasses Chest Chest Narrative: Breast exam deferred Chest: vascular access Resp clear to auscultation bilaterally Cardio regular rate, regular rhythm and no murmurs Extremity no calf tenderness General Extremity: Negative for edema Skin Wounds: wounds noted other RLE covered with DSD Neuro CN's II-XII intact bilaterally Speech: speech normal Psych thought process normal Attitude: calm and engaged Vital Signs Temperature 98 F 06/20/22 07:47 Temperature Source Temporal 06/20/22 07:47 Pulse Rate 105 H 06/20/22 09:04 Pulse Strength Normal (2+) 06/20/22 10:00 Respiratory Rate 12 06/20/22 07:47 Respiratory Effort Non-Labored 06/18/22 22:29 Respiratory Depth Normal 06/18/22 22:29 Respiratory Pattern Normal 06/18/22 22:29 Blood Pressure 107/73 06/20/22 09:04 Blood Pressure Mean 84 06/20/22 07:47 Blood Pressure Source Monitor 06/20/22 07:47 Blood Pressure Position Semi-Fowlers 06/20/22 07:47 Blood Pressure Location Right Arm 06/20/22 07:47 Baseline BP 117/80 06/09/22 17:27 Pulse Ox 98 06/20/22 07:47 Oxygen Delivery Method Room Air 06/20/22 07:47 Laboratory Results - last 24 hr 06/19/22 06:05: Albumin 3.0 L Diagnostic Data Extremity Arterial Study 05/30/22 16:05 Interpretation Summary Normal right PT and DP ankle-brachial index of 1.18 and 1.12 respectively with normal triphasic Doppler waveforms Normal left PT and DP ankle-brachial indices of 1.09 and 1.02 respectively with normal triphasic Doppler waveforms Ordering Physician: Anabela Disla Referring Physician: Jam Verde MD Performed By: Ken Ribera T Abdomen X-Ray 06/08/22 10:22 IMPRESSION: The tip of the feeding tube is in the distal portion of the body of the stomach. Electronically Signed: Michael Bal MD at 14:16 EST , Chest CT 06/08/22 20:17 IMPRESSION: Small right pleural effusion with right basilar atelectasis. Small pericardial effusion. Electronically Signed: Michael Bal MD at 12:23 EST ,
[2022-06-20 20:15] VITALS: PULSE 114; O2SAT 97
[2022-06-20] MEDS: Mirtazapine 15 MG Tablet PO (21:42)
[2022-06-20 21:56] VITALS: BP 114/71; PULSE 104
[2022-06-21] MEDS: Cholestyramine/Sucrose 4 GM/PACKET PO (06:14)
[2022-06-21] MEDS: 0.9% Saline Lock 10 ML Syringe IV (06:15)
[2022-06-21 07:27] VITALS: BP 115/81; PULSE 102; RESP 15; TEMP 36; O2SAT 95
[2022-06-21 08:43] VITALS: BP 115/81; PULSE 102
[2022-06-21] MEDS: Metoprolol Tartrate 25 MG Tablet 12.5 MG PO (08:43)
[2022-06-21] MEDS: Magnesium Chloride 64 MG Delay Rel.Tablet 128 MG PO ×2 (08:43→22:19)
[2022-06-21] MEDS: Vitamin E 400 UNITS Capsule PO (08:43)
[2022-06-21] MEDS: Cholecalciferol (VIT D3) 25 MCG TABLET (1,000 UNITS) 50 MCG PO (08:43)
[2022-06-21] MEDS: Pantoprazole Sodium 20 MG Tablet 40 MG PO ×2 (08:43→22:18)
[2022-06-21] MEDS: Ascorbic Acid 500 MG Tablet PO ×2 (08:43→18:20)
[2022-06-21] MEDS: Spironolactone 25 MG Tablet 12.5 MG PO ×2 (08:44→22:19)
[2022-06-21] MEDS: Pivot 1.5 Cal 1,000 ML BOTTLE 135 ML GT ×3 (10:36→22:20)
[2022-06-21] MEDS: Ondansetron ODT 4 MG Tablet 8 MG PO (12:29)
[2022-06-21] MEDS: Tamoxifen 10 MG Tablet 20 MG PO (13:57)
[2022-06-21 21:30] VITALS: BP 112/67; PULSE 104; RESP 17; TEMP 36.8; O2SAT 96
[2022-06-21] MEDS: Mirtazapine 15 MG Tablet PO (22:19)
--- NOTE | 2022-06-22 02:11 | NURSING ---
Reviewed and agree with Katie CATHERINE documentation and assessment charting.
[2022-06-22] MEDS: Cholestyramine/Sucrose 4 GM/PACKET PO ×3 (06:41→16:10)
[2022-06-22] MEDS: 0.9% Saline Lock 10 ML Syringe IV ×2 (06:47→14:25)
[2022-06-22 07:48] VITALS: BP 102/66; PULSE 97; RESP 14; TEMP 36.3; O2SAT 100
[2022-06-22] MEDS: Ascorbic Acid 500 MG Tablet PO ×2 (08:24→17:37)
[2022-06-22] MEDS: Pantoprazole Sodium 20 MG Tablet 40 MG PO ×2 (08:24→22:37)
[2022-06-22] MEDS: Vitamin E 400 UNITS Capsule PO (08:24)
[2022-06-22] MEDS: Tamoxifen 10 MG Tablet 20 MG PO (08:25)
[2022-06-22] MEDS: Magnesium Chloride 64 MG Delay Rel.Tablet 128 MG PO ×2 (08:25→22:37)
[2022-06-22] MEDS: Cholecalciferol (VIT D3) 25 MCG TABLET (1,000 UNITS) 50 MCG PO (08:25)
[2022-06-22] MEDS: Spironolactone 25 MG Tablet 12.5 MG PO ×2 (08:25→22:41)
[2022-06-22 08:26] VITALS: PULSE 97
[2022-06-22] MEDS: Metoprolol Tartrate 25 MG Tablet 12.5 MG PO (08:26)
[2022-06-22] MEDS: Pivot 1.5 Cal 1,000 ML BOTTLE 135 ML GT ×3 (08:35→22:38)
--- NOTE | 2022-06-22 14:18 | NURSING ---
Message left for Dr. Osorio's office that the pt would like to speak with her before the surgery.
--- NOTE | 2022-06-22 15:34 | PN_ITS ---
Subjective Subjective Beer was seen on team rounds today. Her ugrrnl-aw-dwa and her friend Abrahan are present in the room for rounds. Afebrile VSS - still with tachycardia....a little better with the addition of the Metoprolol to the drug regimen. No lightheadedness and the BP is normal. Maintaining appropriate oxygen saturation on RA Oral intake Discussed with nursing - no problems that need addressed Reviewed the PT/OT/ST notes - UE strength is improving. 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 Using the sliding board for transfers in and out of bed....without using the L arm which will be impaired for a time after the L Mastectomy. Medication list reviewed. Bere tells me that she is occasionally getting nauseated with eating then the TF. She is getting the full TF regardless of how much she eats. She did not have this problem when we were doing the continuous TF at night. Bere denies lightheadedness, vertigo, CP, SOB at rest, SOB with exertion, cough, vomiting, abd pain, diarrhea, constipation, dysuria, calf pain and ankle swelling. sleeping well. Appetite is better and she is able to eat a whole sandwich for lunch now. Objective Data Objective Data Vital Signs: Vital Signs Temp Pulse Resp BP Pulse Ox O2 Del Method 97.3 F L 97 14 102/66 100 Room Air 06/22/22 07:48 06/22/22 08:26 06/22/22 07:48 06/22/22 07:48 06/22/22 07:48 06/22/22 07:48 Oxygen Delivery Method Room Air Weight: 91 lb 11.397 oz Body Mass Index (BMI) 29.5 Intake & Output: Intake and Output for Last 24 Hours 06/20/22 06/21/22 06/22/22 23:59 23:59 23:59 Intake Total 920 / 980 1095 / 1095 1300 / 1300 Output Total 950 / 1250 700 / 700 650 / 650 Balance -30 / -270 395 / 395 650 / 650 Medical Nutrition Assessment Dietitian: Malnutrition Criteria Met Start: 05/29/22 08:26 Freq: Status: Active Protocol: Document 06/15/22 16:16 AG (Rec: 06/15/22 16:16 AG [id number]) Nutrition Malnutrition Evidence of Malnutrition Exists Yes Malnutrition (severe): Chronic Evidenced By Suboptimal Energy Intake ( Severe),Weight Loss (Severe) Clinical Problem Chronic Disease or Condition Related Malnutrition Etiology Severe protein-calorie malnutrition in the context of chronic disease related to inadequate oral intake Signs/Symptoms as evidenced by ~11% wt loss x past 6 months and oral intake meeting less than 50% estimated nutrition needs Status Active Problem Recommendation Dietitian Recommendations/Changes 1) Regular diet as tolerated 2) Will adjust Pivot 1.5 via PEG to bolus feeds after meals and at HS- 135mL bolus 4x/day w/ 15mL H2O flush before and after each bolus plus 60mL H2O flush every 6 hours to provide 810 calories, 50 g protein, and 765mL fluid/day. As ordered, enteral nutrition meets about 50-60% of estimated calorie/protein needs. Will monitor PO intake, wt, and adjust nutrition support as indicated. 3) Continue premier protein drinks from home as tolerated; dislikes ensure. Breakfast fruit smoothie w/ ice, vanilla ensure, beneprotein. 4) Adrian BID for wound healing . 5) Weight daily as ordered. Lab / Micro Data Result Diagrams: 06/16/22 06:00 06/19/22 06:05 Micro: Microbiology 06/08/22 19:45 Stool Stool Lactoferrin - Final 06/08/22 11:08 Stool C. difficile DNA Amplification - Final 06/08/22 11:08 Stool Stool Occult Blood (MARYANN) - Final Occult Blood Positive 05/31/22 09:40 Stool Stool Occult Blood (MARYANN) - Final Physical Exam Const alert, oriented x3 and no apparent distress General Appearance: cooperative Resp clear to auscultation bilaterally Cardio regular rhythm, no murmurs and no gallops Cardio Narrative: tachycardic in the low 100's......no HR's > 110 since the Lopressor was added to the drug regimen. GI soft to palpation, non-tender and non-distended GI Narrative: normal BS's. PEG site is without erythema or DC. No pain with palpation. Extremity no calf tenderness General Extremity: Negative for edema Skin Wounds: wounds noted Wound Narrative: Will examine and debride if necessary tomorrow. 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 Continue therapy 2. Friend/family asking about scans to see if the CA has spread. There is no evidence of metastases in the lungs/abd/pelvis on recent scans. I referred them to oncology to discuss when they plan to do more scans. 3. D/W foundry technician the TF and she is going to make the TF PRN......If Bere does not eat will give a TF. Bere is alert with no cognitive dysfunction and can tell nursing when she needs a TF. Need to keep her nutritional status up to heal the wound on the R medical calf (doing very well) and to heal following the mastectomy. Optimally will come back to rehab following the surgery for more teaching with her parents in how best to assist her with transfers in and out of bed and on and off the toilet. She also has friends that will assist once she is home. 4. Lab ordered for the AM. Charges/Coding Visit Charges Inpatient E&M: 46557 Subs Hosp L2
--- NOTE | 2022-06-22 16:09 | CASEMGMT ---
Social Work IDT met with patient and POA/friend for Team meeting. Discussed patient's progress in PT/OT/SN. Educated to [facility] insurance approving through 06/27. Pt will DC to surgery 06/27 and the goal is for pt to get approved to return to . Parents have attended one therapy training session and plans to have another session. Plan: DC 06/27 for surgery CELESTE Palma
[2022-06-22 19:46] VITALS: BP 105/62; PULSE 112; RESP 16; TEMP 36.7; O2SAT 97
[2022-06-22 22:30] VITALS: PULSE 112; RESP 16; O2SAT 97
[2022-06-22] MEDS: Mirtazapine 15 MG Tablet PO (22:38)
--- NOTE | 2022-06-23 04:40 | NURSING ---
Reviewed and agree with Ashu CATHERINE, documentation and assessment charting.
[2022-06-23] MEDS: Cholestyramine/Sucrose 4 GM/PACKET PO ×3 (06:20→18:26)
[2022-06-23] MEDS: 0.9% Saline Lock 10 ML Syringe IV ×3 (06:24→15:20)
[2022-06-23 06:49] LABS: Hematocrit 33.9 % (37-47); Hemoglobin 11.1 g/dL (12.0-15.0)
[2022-06-23 07:23] VITALS: BP 113/71; PULSE 100; RESP 14; TEMP 36.7; O2SAT 97
[2022-06-23 07:30] LABS: Anion Gap 9 (5-15); BUN 35 mg/dL (7-18); BUN/Creat Ratio 77.4 RATIO (10-20); Calcium,Total 10.1 mg/dL (8.5-10.1); Chloride 101 mmol/L (98-107); Creatinine, Serum 0.45 mg/dL (0.55-1.02); EST Glomerular Filtration Rate 160 mL/min (>60); Est Glom Filt Rate - Afr Amer 194 mL/min (>60); Estimated Creatinine Clearance 106.12 ml/min; Glucose 112 mg/dL (74-106); Magnesium 1.7 mg/dL (1.6-2.6); Potassium 3.8 mmol/L (3.5-5.1); Sodium Level 137 mmol/L (136-145)
[2022-06-23] MEDS: Ascorbic Acid 500 MG Tablet PO ×2 (09:30→17:35)
[2022-06-23] MEDS: Vitamin E 400 UNITS Capsule PO (09:30)
[2022-06-23] MEDS: Spironolactone 25 MG Tablet 12.5 MG PO ×2 (09:30→21:50)
[2022-06-23 09:31] VITALS: BP 113/71; PULSE 120
[2022-06-23] MEDS: Metoprolol Tartrate 25 MG Tablet PO (09:31)
[2022-06-23] MEDS: Tamoxifen 10 MG Tablet 20 MG PO (09:32)
[2022-06-23] MEDS: Cholecalciferol (VIT D3) 25 MCG TABLET (1,000 UNITS) 50 MCG PO (09:33)
[2022-06-23] MEDS: Pantoprazole Sodium 20 MG Tablet 40 MG PO ×2 (09:33→21:47)
[2022-06-23 09:40] VITALS: PULSE 120
--- NOTE | 2022-06-23 09:51 | PN_ITS ---
Subjective Subjective Afebrile VSS Maintaining appropriate oxygen saturation on RA Oral intake continues to improve. Not requiring TF 4 times a day anymore. Discussed with nursing - no problems that need addressed Reviewed the PT/OT notes Medication list reviewed. All a.m. lab was personally reviewed. Hemoglobin is stable at 11.1. Sodium is normal at 137 and the potassium is 3.8. The BUN is 35 with a creatinine of 0.45. Magnesium is still within normal limits but it is 1.7, down from 1.9 on 06/19/2022. Calcium corrected for hypoalbuminemia is around 10.8 which is high however she has no symptoms of hypercalcemia and I suspect the hypercalcemia is related to immobility. Bere denies lightheadedness, vertigo, CP, SOB at rest, SOB with exertion, cough, nausea, vomiting, abd pain, diarrhea, constipation, dysuria, calf pain and ankle swelling. She is feeling anxious about what will happen after surgery and if her insurance company will improve additional time in rehab following the surgery. The muscular dystrophy is the stumbling block with going home. She will not be able to manage by herself and will be going to her parents house to recuperate. Her mother has dementia and can not assist her. Will continue t raining with her father until he is competent in transferring her from bed to chair and back safely. Objective Data Objective Data Vital Signs: Vital Signs Temp Pulse Resp BP Pulse Ox O2 Del Method 98.1 F 120 H 14 113/71 97 Room Air 06/23/22 07:23 06/23/22 09:31 06/23/22 07:23 06/23/22 09:31 06/23/22 07:23 06/23/22 07:23 Oxygen Delivery Method Room Air Weight: 91 lb 14.924 oz Body Mass Index (BMI) 29.5 Intake & Output: Intake and Output for Last 24 Hours 06/21/22 06/22/22 06/23/22 23:59 23:59 23:59 Intake Total 1095 / 1095 1925 / 1925 300 / 300 Output Total 700 / 700 1300 / 1300 1100 / 1100 Balance 395 / 395 625 / 625 -800 / -800 Medical Nutrition Assessment Dietitian: Malnutrition Criteria Met Start: 05/29/22 08:26 Freq: Status: Active Protocol: Document 06/22/22 16:03 AG (Rec: 06/22/22 16:03 [id number]) Nutrition Malnutrition Evidence of Malnutrition Exists Yes Malnutrition (severe): Chronic Evidenced By Suboptimal Energy Intake ( Severe),Weight Loss (Severe) Clinical Problem Chronic Disease or Condition Related Malnutrition Etiology Severe protein-calorie malnutrition in the context of chronic disease related to inadequate oral intake Signs/Symptoms as evidenced by ~11% wt loss x past 6 months and oral intake meeting less than 50% estimated nutrition needs Status Active Problem Recommendation Dietitian Recommendations/Changes 1) Regular diet as tolerated 2) Will continue Pivot 1.5 via PEG bolus feeds after meals and at HS- 135mL bolus 4x/day (PRN at meal times, continue HS feed) w/ 15mL H2O flush before and after each bolus plus 60mL H2O flush every 6 hours to provide 810 calories, 50 g protein, and 765mL fluid /day. As ordered, enteral nutrition meets about 50-60% of estimated calorie/protein needs. Will monitor PO intake, wt, and adjust nutrition support as indicated. 3) Continue premier protein drinks from home as tolerated; dislikes ensure. Daily breakfast smoothie- 12 oz fruit (no large seeds no kiwi) , ice, vanilla ensure, 1 scoop beneprotein (thin enough to drink w/ straw) 4) Adrian BID for wound healing . 5) Weight daily as ordered. Lab / Micro Data Result Diagrams: 06/26/22 12:06 06/26/22 12:06 Labs: Laboratory Results - last 24 hr 06/23/22 06:35: Hgb 11.1 L, Hct 33.9 L 06/23/22 06:35: Sodium 137, Potassium 3.8, Chloride 101, Carbon Dioxide 27.0, Anion Gap 9, BUN 35 H, Creatinine 0.45 L, Estim Creat Clear Calc 106.12, Est GFR (MDRD) Af Amer 194, Est GFR (MDRD) Non-Af 160, BUN/Creatinine Ratio 77.4 H, Glucose 112 H, Calcium 10.1, Magnesium 1.7 06/23/22 06:35: Cortisol 23.30 H Micro: Microbiology 06/08/22 19:45 Stool Stool Lactoferrin - Final 06/08/22 11:08 Stool C. difficile DNA Amplification - Final 06/08/22 11:08 Stool Stool Occult Blood (MARYANN) - Final Occult Blood Positive 05/31/22 09:40 Stool Stool Occult Blood (MARYANN) - Final Physical Exam Const alert and oriented x3 Constitutional Narrative: pleasant, upbeat General Appearance: cooperative Neck supple General: trachea midline Resp clear to auscultation bilaterally Effort and Inspection: Negative for tachypneic Cardio regular rhythm Cardio Narrative: HR is 98-104 today. No ectopy. No gallops and no MM. Rate: tachycardic GI normal to inspection, nondistended, normoactive bowel sounds, soft to palpation and non-tender GI Narrative: PEG site is free of erythema and has no DC or breakdown Extremity no calf tenderness General Extremity: Negative for edema Skin General Skin Exam: no breakdown Rashes: no rashes Wounds: wounds noted size Size: 8.8L X 2.9 W X 1 mm deep at the distal bx site X 3 mm deep at the prox site, bed granulating well, beefy red, No crusted, No with tunneling, No necrotic, No with undermining and other 5% slough at the bx site proximally which was debrided off the wound. Bed is vascular beefy red. No odor and no mickey-wound erythema or increased warmth to touch. , No drainage, No no odor and No surrounding erythema Wound Narrative: The wound on the R medial calf continues to improve. Many islands of new skin within the wound and new epithelium around the entire margin of the wound. Depth is 0 at the distal end and 0.1cm at the site of the No periwound erythema, no odor, no discharge, 100% granulation tissue. Neuro CN's II-XII intact bilaterally Speech: speech normal Psych thought process normal, cooperative and affect normal Psych Narrative: mildly anxious about DC plans. Wants to come back to rehab and I think that is an excellent idea. Her father is not yet comfortable with the transfers. Bere can do her own TF's. Her mother has dementia and will not be able to assist with care of Bere. Appearance: appropriate Assessment & Plan Assessment/Plan (1) Debility: (2) Severe malnutrition: PLAN: Doing much better and the wound on the R calf is healing well. (3) Ulcer of right lower extremity with fat layer exposed: PLAN: No sign of infection. Healing and continuing to shrink. (4) Hypomagnesemia: PLAN: I would like the Mag to stay 1.9-2.1........Aldactone being used to conserve potassium and magnesium. Give 4 GMs of MAG IV tonight in preparation for surgery tomorrow and give an extra 40 MEQ of KCL PO tonight. (5) Hypokalemia: (6) Carcinoma of left breast metastatic to axillary lymph node: PLAN: for L mastectomy and lymph node dissection with Dr. Osorio tomorrow. (7) PEG (percutaneous endoscopic gastrostomy) status: PLAN: Would schedule TF at night post op until we can make sure is going to eat and drink. She has either Barteer's or Gittelman's S. and can not concentrate her urine or retain potassium and magnesium. Will have her follow up with nephrology going forward. (8) Acute on chronic anemia: PLAN: Stable (9) Metastatic breast cancer: (10) Muscular dystrophy: PLAN: Arthrogryposis Type. (11) Sinus tachycardia: PLAN: Beta blockers are not helping. 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 Continue therapy 2. Recheck lab on Sunday in preparation for surgery Sunday 3. Maintain the potassium around 4 and the magnesium around 2 4. Continue to urged her to increase her fluid intake 5. Will examine and debride the wound on Sunday. Charges/Coding Visit Charges Inpatient E&M: 63353 Subs Hosp L2
[2022-06-23] MEDS: Magnesium Chloride 64 MG Delay Rel.Tablet 128 MG PO ×2 (11:16→21:47)
[2022-06-23] MEDS: Morphine 2 MG/ML Syringe IV (11:28)
[2022-06-23] MEDS: Ondansetron ODT 4 MG Tablet 8 MG PO (11:36)
[2022-06-23] MEDS: Pivot 1.5 Cal 1,000 ML BOTTLE 135 ML GT ×2 (12:32→21:48)
[2022-06-23 21:30] VITALS: BP 92/64; PULSE 100; RESP 14; TEMP 36.6; O2SAT 100
[2022-06-23] MEDS: Mirtazapine 15 MG Tablet PO (21:47)
[2022-06-24] MEDS: 0.9% Saline Lock 10 ML Syringe IV ×2 (06:59→16:11)
[2022-06-24 07:24] VITALS: BP 108/68; PULSE 96; RESP 15; TEMP 36.6; O2SAT 99
[2022-06-24] MEDS: Vitamin E 400 UNITS Capsule PO (07:55)
[2022-06-24] MEDS: Ascorbic Acid 500 MG Tablet PO ×2 (07:55→17:47)
[2022-06-24] MEDS: Spironolactone 25 MG Tablet 12.5 MG PO ×2 (10:07→22:45)
[2022-06-24 10:08] VITALS: PULSE 102
[2022-06-24] MEDS: Metoprolol Tartrate 25 MG Tablet PO (10:08)
[2022-06-24] MEDS: Magnesium Chloride 64 MG Delay Rel.Tablet 128 MG PO ×2 (10:08→22:45)
[2022-06-24] MEDS: Pantoprazole Sodium 20 MG Tablet 40 MG PO ×2 (10:09→22:45)
[2022-06-24] MEDS: Tamoxifen 10 MG Tablet 20 MG PO (10:09)
[2022-06-24] MEDS: Cholecalciferol (VIT D3) 25 MCG TABLET (1,000 UNITS) 50 MCG PO (10:10)
[2022-06-24 10:33] VITALS: PULSE 112
[2022-06-24] MEDS: Ondansetron ODT 4 MG Tablet 8 MG PO (12:15)
[2022-06-24] MEDS: Pivot 1.5 Cal 1,000 ML BOTTLE 135 ML GT ×3 (13:02→22:48)
[2022-06-24] MEDS: Cholestyramine/Sucrose 4 GM/PACKET PO (14:08)
[2022-06-24 20:12] VITALS: BP 110/68; PULSE 106; RESP 18; TEMP 37.1; O2SAT 100
[2022-06-24] MEDS: Mirtazapine 15 MG Tablet PO (22:45)
--- NOTE | 2022-06-25 06:25 | NURSING ---
discussed timing of questran w/pharmacistgill. rescheduled 0800 vit c&e to 1000 to enable meds to be taken 4h after questran.
[2022-06-25] MEDS: Cholestyramine/Sucrose 4 GM/PACKET PO ×2 (06:31→15:50)
[2022-06-25 07:41] VITALS: BP 120/78; PULSE 95; RESP 18; TEMP 36.8; O2SAT 99
[2022-06-25] MEDS: Pivot 1.5 Cal 1,000 ML BOTTLE 135 ML GT ×2 (07:46→18:42)
[2022-06-25] MEDS: 0.9% Saline Lock 10 ML Syringe IV (10:39)
[2022-06-25] MEDS: Ascorbic Acid 500 MG Tablet PO ×2 (10:41→17:50)
[2022-06-25] MEDS: Vitamin E 400 UNITS Capsule PO (10:42)
[2022-06-25] MEDS: Spironolactone 25 MG Tablet 12.5 MG PO ×2 (10:42→22:33)
[2022-06-25] MEDS: Magnesium Chloride 64 MG Delay Rel.Tablet 128 MG PO ×2 (10:43→22:32)
[2022-06-25] MEDS: Tamoxifen 10 MG Tablet 20 MG PO (10:44)
[2022-06-25] MEDS: Cholecalciferol (VIT D3) 25 MCG TABLET (1,000 UNITS) 50 MCG PO (10:44)
[2022-06-25] MEDS: Pantoprazole Sodium 20 MG Tablet 40 MG PO ×2 (10:44→22:33)
[2022-06-25 10:46] VITALS: PULSE 102
[2022-06-25] MEDS: Metoprolol Tartrate 25 MG Tablet PO (10:46)
[2022-06-25 20:19] VITALS: BP 111/67; PULSE 108; RESP 17; TEMP 36.8; O2SAT 100
[2022-06-25] MEDS: Mirtazapine 15 MG Tablet PO (22:32)
--- NOTE | 2022-06-25 22:32 | NURSING ---
Residual checked on patients peg tube and 60ml was removed and then put back in. Pt refused HS Pivot at this time.
[2022-06-26] MEDS: Cholestyramine/Sucrose 4 GM/PACKET PO (06:14)
--- NOTE | 2022-06-26 06:14 | NURSING ---
residual checked on patients peg tube and 10 ml was removed and put back.
[2022-06-26] MEDS: 0.9% Saline Lock 10 ML Syringe IV ×3 (06:15→18:21)
[2022-06-26 07:40] VITALS: BP 102/65; PULSE 98; RESP 16; TEMP 36.7; O2SAT 99
[2022-06-26 08:23] VITALS: BP 102/65; PULSE 98
[2022-06-26] MEDS: Ascorbic Acid 500 MG Tablet PO ×2 (08:23→17:18)
[2022-06-26] MEDS: Tamoxifen 10 MG Tablet 20 MG PO (08:23)
[2022-06-26] MEDS: Magnesium Chloride 64 MG Delay Rel.Tablet 128 MG PO ×2 (08:23→22:10)
[2022-06-26] MEDS: Pantoprazole Sodium 20 MG Tablet 40 MG PO ×2 (08:23→22:10)
[2022-06-26] MEDS: Cholecalciferol (VIT D3) 25 MCG TABLET (1,000 UNITS) 50 MCG PO (08:23)
[2022-06-26] MEDS: Metoprolol Tartrate 25 MG Tablet PO (08:23)
[2022-06-26] MEDS: Vitamin E 400 UNITS Capsule PO (08:23)
[2022-06-26] MEDS: Spironolactone 25 MG Tablet 12.5 MG PO (08:24)
--- NOTE | 2022-06-26 11:52 | PN_ITS ---
Subjective Subjective Afebrile VSS Maintaining appropriate oxygen saturation on RA Discussed with nursing - no problems that need addressed Reviewed the PT/OT/ST notes Medication list reviewed. Having only 2 BM's daily Lab is pending. Mastectomy is scheduled for tomorrow. Pt is apprehensive about whether or not insurance will allow her to come back to rehab. Was personally reviewed. Hemoglobin today is 11.5, up from 11.1 on 06/23/2022. The white blood cell count is within normal limits. Platelet count is elevated at 564,000. Sodium is 136 and the potassium is 3.5. The BUN is 39 and the creatinine is 0.54. Creatinine is up a little from what it was previously however she is well-nourished now and muscle mass is increased. The calcium is 10.3 and the MAG is 1.6. Denies lightheadedness, chest pain, shortness of breath, cough, sore throat, loss of smell or taste, nausea, abdominal pain and dysuria. Objective Data Objective Data Vital Signs: Vital Signs Temp Pulse Resp BP Pulse Ox O2 Del Method 98.1 F 98 16 102/65 99 Room Air 06/26/22 07:40 06/26/22 08:23 06/26/22 07:40 06/26/22 08:23 06/26/22 07:40 06/26/22 07:40 Oxygen Delivery Method Room Air Weight: 89 lb 11.65 oz Body Mass Index (BMI) 29.5 Intake & Output: Intake and Output for Last 24 Hours 06/24/22 06/25/22 06/26/22 23:59 23:59 23:59 Intake Total 690 / 940 1989 Output Total 1620 / 2120 1600 / 1600 250 / 250 Balance -930 / -1180 390 / 390 -250 / -250 Medical Nutrition Assessment Dietitian: Malnutrition Criteria Met Start: 05/29/22 08:26 Freq: Status: Active Protocol: Document 06/22/22 16:03 (Rec: 06/22/22 16:03 [id number]) Nutrition Malnutrition Evidence of Malnutrition Exists Yes Malnutrition (severe): Chronic Evidenced By Suboptimal Energy Intake ( Severe),Weight Loss (Severe) Clinical Problem Chronic Disease or Condition Related Malnutrition Etiology Severe protein-calorie malnutrition in the context of chronic disease related to inadequate oral intake Signs/Symptoms as evidenced by ~11% wt loss x past 6 months and oral intake meeting less than 50% estimated nutrition needs Status Active Problem Recommendation Dietitian Recommendations/Changes 1) Regular diet as tolerated 2) Will continue Pivot 1.5 via PEG bolus feeds after meals and at HS- 135mL bolus 4x/day (PRN at meal times, continue HS feed) w/ 15mL H2O flush before and after each bolus plus 60mL H2O flush every 6 hours to provide 810 calories, 50 g protein, and 765mL fluid /day. As ordered, enteral nutrition meets about 50-60% of estimated calorie/protein needs. Will monitor PO intake, wt, and adjust nutrition support as indicated. 3) Continue premier protein drinks from home as tolerated; dislikes ensure. Daily breakfast smoothie- 12 oz fruit (no large seeds no kiwi) , ice, vanilla ensure, 1 scoop beneprotein (thin enough to drink w/ straw) 4) Adrian BID for wound healing . 5) Weight daily as ordered. Lab / Micro Data Result Diagrams: 06/26/22 12:06 06/26/22 12:06 Micro: Microbiology 06/08/22 19:45 Stool Stool Lactoferrin - Final 06/08/22 11:08 Stool C. difficile DNA Amplification - Final 06/08/22 11:08 Stool Stool Occult Blood (MARYANN) - Final Occult Blood Positive 05/31/22 09:40 Stool Stool Occult Blood (MARYANN) - Final Physical Exam Const alert and oriented x3 Neck supple General: trachea midline Resp clear to auscultation bilaterally Cardio regular rhythm Cardio Narrative: HR is 98-104 today. No ectopy. No gallops and no MM. Rate: tachycardic GI normal to inspection, nondistended, normoactive bowel sounds, soft to palpation and non-tender GI Narrative: PEG site is rita of erythema and there is not DC. Extremity no calf tenderness General Extremity: no tenderness to palpation of joints or extremities; Negative for edema Skin General Skin Exam: no breakdown Rashes: no rashes Wound Narrative: The wound continues to shrink. The length is now 8 cm and the width is 2.8 cm. The depth is 0.1cm at the biopsy site in the more proximal wound. No slough. T here is no erythema, no odor and no purulent DC. There was some adherent terence at the margins of the wound which was debrided off. the new epithelium is fragile and when I debride the Terence off the wound some skin comes with it. There really was no slough in the wound. The new epithelium continues to migrate in from the wound margins and there are many island of new skin within the wound now. Psych Psych Narrative: mildly anxious about DC plans. Wants to come back to rehab and I think that is an excellent idea. Her father is not yet comfortable with the transfers. Bere can do her own TF's. Her mother has dementia and will not be able to assist with care of Bere. Appearance: appropriate Assessment & Plan Assessment/Plan (1) Debility: (2) Severe malnutrition: PLAN: Doing much better and the wound on the R calf is healing well. (3) Ulcer of right lower extremity with fat layer exposed: PLAN: No sign of infection. Healing and continuing to shrink. (4) Diarrhea: PLAN: resolved. Having 1-2 BM's a day now. (5) Hypomagnesemia: PLAN: I would like the Mag to stay 1.9-2.1........Aldactone being used to conserve potassium and magnesium. Give 4 GMs of MAG IV tonight in preparation for surgery tomorrow and give an extra 40 MEQ of KCL PO tonight. (6) Hypokalemia: (7) Carcinoma of left breast metastatic to axillary lymph node: PLAN: for L mastectomy and lymph node dissection with Dr. Osorio tomorrow. (8) PEG (percutaneous endoscopic gastrostomy) status: PLAN: Would schedule TF at night post op until we can make sure is going to eat and drink. She has either Barteer's or Gittelman's S. and can not concentrate her urine or retain potassium and magnesium. Will have her follow up with nephrology going forward. (9) Duodenal ulcer disease: PLAN: no epigastric pain and the HGB is stable. Continue Protonix 40 mg BID and follow up with Dr. Byrd for EGD in another 2 and 1/2 months for surveillance. (10) Acute on chronic anemia: PLAN: Stable (11) Metastatic breast cancer: (12) Muscular dystrophy: PLAN: Arthrogryposis Type. (13) Sinus tachycardia: PLAN: Beta blockers are not helping. will DC (14) Thrombocytosis: (15) Bartters syndrome: PLAN: Plan 1. Plan for surgery tomorrow and hopefully she will return to rehab following surgery. she will be going home to her parents place following DC from rehab. Her parents have been coming in for training on how best to assist her in standing. Therapy is now using a harness that fits around her hips to assist in standing and pivoting and this way parents will not have to get her under the axilla to help her stand. 2. Give an extra dose of potassium today and increase the spironolactone to 25 mg BID to help conserve the potassium and the magnesium. The goal is to keep the potassium around 4 and the Mag around 2. 4 GM of IV MAG tonight. 3. discuss with the traffic sign erection supervisor instructing Bere in a low calcium diet in light of the hypercalcemia which is more than likely due to immobility 4. The beta maxim does not seem to be working to control the HR so will DC. 5. Start NS IV in the AM to make sure she stays hydrated. 6. Schedule TF at 60 cc/hr for 8 hours at night until she is back to taking a regular diet and enough calories to sustain her and enough fluids to keep her out of kidney failure. Charges/Coding Visit Charges Inpatient E&M: 01621 Subs Hosp L3
[2022-06-26 12:17] LABS: Absolute Lymphocyte Count 1.81 X10^3/uL (0.83-4.51); Basophil# 0.09 X10^3/uL; Basophil% 0.8 % (0-1); Eosinophil# 0.29 X10^3/uL; Eosinophils% 2.7 % (0-5); Hematocrit 35.8 % (37-47); Hemoglobin 11.5 g/dL (12.0-15.0); Lymphocyte # 1.81 X10^3/ul (0.83-4.51); Lymphocyte % 16.5 % (19-41); Mean Corp Hgb Conc 32.1 g/dL (32-36); Mean Corpuscular Hgb 30.3 pg (27.0-32.0); Mean Corpuscular Volume 94.2 fL (81-99); Mean Platelet Vol. 8.4 fl (6.2-12.0); Monocyte% 6.4 % (0-10); NRBC Flagged by Analyzer 0 % (0-5); Neutrophil % 73.1 % (47-70); Platelet Count 564 K/mm3 (150-450); RBC Distribution Width CV 15.6 % (11.6-14.6); RBC Distribution Width SD 53.9 fl (35.1-43.9); White Blood Count 10.9 K/mm3 (4.4-11.0)
[2022-06-26 13:00] LABS: Anion Gap 10 (5-15); BUN 39 mg/dL (7-18); BUN/Creat Ratio 72.2 RATIO (10-20); Calcium,Total 10.3 mg/dL (8.5-10.1); Chloride 100 mmol/L (98-107); Creatinine, Serum 0.54 mg/dL (0.55-1.02); EST Glomerular Filtration Rate 131 mL/min (>60); Est Glom Filt Rate - Afr Amer 158 mL/min (>60); Estimated Creatinine Clearance 86.31 ml/min; Glucose 104 mg/dL (74-106); Magnesium 1.6 mg/dL (1.6-2.6); Potassium 3.5 mmol/L (3.5-5.1); Sodium Level 136 mmol/L (136-145)
[2022-06-26] MEDS: Morphine 2 MG/ML Syringe IV (15:29)
[2022-06-26] MEDS: Potassium Chloride Oral Soln 20 MEQ/15 ML UDC 40 MEQ PO (17:18)
[2022-06-26] MEDS: Magnesium Sulfate 4gm/100mL 4 GM/100 ML IV.SOLN. IV (18:16)
[2022-06-26] MEDS: Pivot 1.5 Cal 1,000 ML BOTTLE GT (20:59)
[2022-06-26 22:00] VITALS: BP 99/71; PULSE 103; RESP 16; TEMP 36.7; O2SAT 98
[2022-06-26] MEDS: Mirtazapine 15 MG Tablet PO (22:10)
[2022-06-26] MEDS: Spironolactone 25 MG Tablet PO (22:10)
[2022-06-27] MEDS: 0.9% Normal Saline 1,000 ML 100 ML IV (04:51)
[2022-06-27 07:10] VITALS: BP 103/77; PULSE 94; RESP 17; TEMP 36.8; O2SAT 100
[2022-06-27] MEDS: Tamoxifen 10 MG Tablet 20 MG PO (07:46)
[2022-06-27] MEDS: Spironolactone 25 MG Tablet PO (07:46)
[2022-06-27 08:28] LABS: PTHIN 15.6 pg/mL (18.4-80.1)
--- NOTE | 2022-06-27 09:57 | DS.PCM_ITS ---
Providers Date of Admission: 05/28/22 Date of Discharge: 06/27/22 Primary Care Physician: Dr. Jam Verde MD Consultations 05/30/22 09:48 Consult: Infectious Disease Routine Consulting Provider: Reed Rodarte Reason for Consult: continuation from med surg floor EMERGENT Consult: No Notified: Yes Date Notified: 05/30/22 Time Notified: 09:48 Method of Notification: Answering Service Method of Consult:: In-Person Comments:: Delfina from office will tell Dr manager money she is on rehab 06/08/22 16:40 Consult: Gastroenterology Routine Consulting Provider: [facility] Reason for Consult: GI bleed/intra-abdominal abscess EMERGENT Consult: No MD Notified: Yes Date Notified: 06/08/22 Time Notified: 16:40 Method of Notification: Verbal 06/20/22 11:33 Consult: Oncology/Hematology Routine Consulting Provider: [facility]) Reason for Consult: breast CA EMERGENT Consult: No MD Notified: Yes Date Notified: 06/20/22 Time Notified: 11:34 Method of Notification: Verbal Method of Consult:: In-Person Reason For Visit: INTRA ABDOMINAL ABSCESS Diagnosis Discharge Diagnosis (1) Debility: Status: Acute Code(s): R53.81 - Other malaise (2) Severe malnutrition: Status: Acute Code(s): E43 - Unspecified severe protein-calorie malnutrition Plan: Doing much better and the wound on the R calf is healing well. (3) Ulcer of right lower extremity with fat layer exposed: Status: Acute Code(s): L97.912 - Non-pressure chronic ulcer of unspecified part of right lower leg with fat layer exposed Plan: No sign of infection. Healing and continuing to shrink. (4) Hypomagnesemia: Status: Chronic Code(s): E83.42 - Hypomagnesemia Plan: I would like the Mag to stay 1.9-2.1........Aldactone being used to conserve p otassium and magnesium. 4 GMs of MAG IV given 06/26/22 and also 40 MEQ KCL in preparation for surgery 06/27/22 (5) Hypokalemia: Status: Chronic Code(s): E87.6 - Hypokalemia Plan: Keep K around 4. Aldactone increased for K and MAG not at goal on 06/26/22. (6) Carcinoma of left breast metastatic to axillary lymph node: Status: Acute Code(s): C50.912 - Malignant neoplasm of unspecified site of left female breast; C77.3 - Secondary and unspecified malignant neoplasm of axilla and upper limb lymph nodes Plan: L mastectomy and lymph node dissection with Dr. Osorio 06/17/22. (7) PEG (percutaneous endoscopic gastrostomy) status: Status: Acute Code(s): Z93.1 - Gastrostomy status Plan: Schedule TF at night post op until we can make sure she is going to eat and drink. She either Bartter's or Gittelman's S. and can not concentrate her ur ine or retain potassium and magnesium. Will have her follow up with nephrology going forward. (8) Acute on chronic anemia: Status: Chronic Code(s): D64.9 - Anemia, unspecified Plan: Stable since she had a heat probe for oozing gastric ulcers and Protonix 40 mg BID was started. (9) Metastatic breast cancer: Status: Acute Code(s): C50.919 - Malignant neoplasm of unspecified site of unspecified female breast Plan: Follows with Dr. Perez. (10) Muscular dystrophy: Status: Acute Code(s): G71.00 - Muscular dystrophy, unspecified Plan: Arthrogryposis Type. (11) Sinus tachycardia: Status: Acute Code(s): R00.0 - Tachycardia, unspecified Plan: HR increases with dehydration. Tried beta blockers and they were not effective. HR also increases with anxiety. (12) Thrombocytosis: Status: Resolved Code(s): D75.839 - Thrombocytosis, unspecified Plan: Intermittent. Check iron studies in the next few days. Start an iron supplemen t. 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 Plan 1. Discharged 06/27/22 for Left mastectomy and lymph node dissection. 2. Needs to return to rehab following stabilization after surgery. Bere has disabilities due to MD and she is still malnourished. she has a wound on the R medial calf that prevents her from wearing her brace on the RLE. She needs additional work to strengthen the UE's and she and her parents need more family training with the harness to assist her in standing and pivoting. there will be additional family and friends assisting in Bere's care when she is discharged home and will also get them trained. 3. Continue IV fluids and give TF continuously at night to maintain at least 2500 cc's fluid daily to prevent ARF, hypotension and tachycardia. Medications at Discharge Home Medications lidocaine-prilocaine 2.5 %-2.5 % topical cream 1 applic topical ONCE PRN port access 30 days #30 grams 02/23/22 ondansetron 8 mg disintegrating tablet 8 mg PO Q8H PRN nausea and vomiting #30 tabs 04/18/22 acetaminophen 650 mg/20.3 mL oral solution 1,000 mg (31.2308 mL) PO Q8H PRN Pain 1-10 Or Fever #0 mL 05/28/22 loperamide 2 mg capsule 4 mg PO Q4H PRN PRN Diarrhea #30 caps 05/28/22 sodium chloride 0.9 % (flush) (Normal Saline Flush 0.9 % injection syringe) 10 - 40 ml IV UD PRN IV flush 05/28/22 ascorbic acid (vitamin C) 500 mg tablet 500 mg PO BIDCM #1 TAB 06/27/22 cholecalciferol (vitamin D3) 25 mcg (1,000 unit) tablet 50 mcg PO DAILY #1 TAB 06/27/22 cholestyramine (with sugar) 4 gram powder for susp in a packet 4 g PO TIDAC #1 ea 06/27/22 heparin, porcine (PF) 10 unit/mL intravenous syringe 50 units (5 mL) IV UD #0 mL 06/27/22 magnesium chloride 64 mg (magnesium chloride) tablet,delayed release (Mag 64) 128 mg PO BID #1 TAB 06/27/22 mirtazapine 15 mg tablet 22.5 mg PO QHS #1 TAB 06/27/22 nut.tx.comp. immune systm,reg 0.09 gram-1.5 kcal/mL liquid for tube feed (Pivot 1.5 Herbie) 60 ml G-tube CLARIFY #1 mL 06/27/22 pantoprazole 20 mg tablet,delayed release 40 mg PO BID #1 TAB 06/27/22 potassium chloride 20 mEq/15 mL oral liquid 40 meq (30 mL) PO BIDCM #1 mL 06/27/22 sodium chloride 0.9 % (flush) (BD PosiFlush Normal Saline 0.9 % injection syringe) 10 - 40 ml IV UD PRN Saline Flush #0 mL 06/27/22 spironolactone 25 mg tablet 25 mg PO BID #1 TAB 06/27/22 vitamin E (dl, acetate) 180 mg (400 unit) capsule 400 units PO DAILYCM #1 cap 06/27/22 zinc sulfate 50 mg zinc (220 mg) capsule 220 mg PO DAILY #1 cap 06/27/22 Hospital Course Operations None Procedures Colonoscopy (06/09/2022-diverticulosis throughout the entire colon), EGD (06/09/22 she had an EGD, colonoscopy and PEG placement by Dr. Byrd. Had diverticulosis throughout the entire colon and on EGD was found to have multiple oozing duodenal ulcers with a visible vessel that was treated with argon plasma coagulation.) and Peg tube placement (06/09/2022.) Summary of Care Provided Minutes Spent on Discharge: 40 Hospital Course: Bere Godinez is a 41-year-old female with a past medical history of L breast cancer with metastatic disease to a L axillary node, depression/anxiety, arthr ogryposis muscular dystrophy, GERD, diverticulosis throughout the entire colon, nonhealing wound on the medial right calf due to an infected pimple, severe malnutrition and intra-abdominal abscess more likely than not due to a ruptured tic who was admitted to the acute rehab unit at [facility] on 05/28/22 for 3 hours of therapy daily to restore function/independence at or near her level prior to admission to the hospital for intra-abdominal abscess. While on rehab she developed duodenal ulcers causing an upper GI bleed requiring her to be transfused with PRBC's and Dr. Isra Byrd was consulted. EGD, colonoscopy and PEG were done on 06/09/22. The colonoscopy revealed diverticulosis throughout the entire colon. EGD revealed multiple oozing duodenal ulcers with a visible vessel that was coagulated with an argon plasma laser. She is to be maintained on Protonix 40 MG BID for 12 weeks and then will have a repeat EGD for surveillance. HGB has been stable since she was treated for PUD. Bere had a poor appetite when first admitted to Rehab and she had lost 11% of her body weight in the 6 months preceding hospital admission. She was followed by the office services representative while in the hospital and throughout her stay in rehab. Duloxetine was discontinued in favor of Remeron to help stimulate appetite. Her wt has decreased while in rehab because she had anasarca at admission to rehab and this has since resolved. Her wt has been stable recently with only a few pounds up or down, mostly due to fluctuating fluid intake. Bere has either Bartter's S. or Gittelman's S and she is not able to concentrate her urine or retain Potassium or magnesium. We have had difficulties with low sodium, low potassium and low magnesium. Supplementation of magnesium and potassium was initiated and she was placed on Aldactone to help conserve Potassium and Magnesium in the kidney. Wt/BP/HR fluctuate somewhat and this is due to fluctuations in hydration. Bere will not admit usually to being anxious but, Her HR precipitously goes up and she gets flushed in the face. Remeron was increased to 22.5 mg daily recently. she was given 1 mg of Ativan IV prior to going to surgery on the day of DC due to HE in the 120's. there were multiple visitors in her room. Bere has made significant progress since being on rehab. The wound on the RLE is less than half the size it was at admission to rehab and it is superficial now. Her strength has improved. She has learned to stand and pivot using only the brace on the left lower extremity to stabilize her. She is able to stand upright for several minutes with the brace on. We have been training her father in how to best assist Bere with standing and pivoting after surgery since she will not be able to use her LUE to push up on. We are currently using a harness over her hips and this is working well. Family and friends will be assisting Bere after she is discharged and she will be staying with her parents. There s additional training that needs to be done prior to DC home with her parents. Due to MD Bere has more challenges with movement and stability than other patients undergoing mastectomy. Will maintain TF for 6-8 hours at night until she is able to resume her diet. She has been eating 75% of most meals and has been getting TF at night and PRN after meals if she eats less than 50% of her meal. Will also maintain an IV of NS to make sure she gets at least 2500 cc/day of fluid to maintain hydration and prevent Hyponatremia, hypotension and tachycardia. Will accept her back to rehab after she is stabilized in the hospital after the mastectomy. Would check a CMP, MAG and phos on the first post-op day. Physical Exam Const alert and oriented x3 General Appearance: cooperative Neck supple General: trachea midline Resp clear to auscultation bilaterally Effort and Inspection: Negative for tachypneic Cardio regular rhythm, no murmurs and no gallops Cardio Narrative: HR was in the 120's when I examined her this morning and there were many people in her room. She was given 1 mg of Ativan IV to calm her down. Rate: tachycardic GI normal to inspection, nondistended, normoactive bowel sounds, soft to palpation, non-tender and non-distended GI Narrative: PEG site is rita of erythema and there is not DC. Extremity no calf tenderness General Extremity: no tenderness to palpation of joints or extremities; Negative for edema Skin General Skin Exam: no breakdown Rashes: no rashes Wounds: wounds noted size Size: 8.8L X 2.9 W X 1 mm deep at the distal bx site X 3 mm deep at the prox site, bed granulating well, beefy red, No crusted, No with tunneling, No necrotic, No with undermining and other 5% slough at the bx site proximally which was debrided off the wound. Bed is vascular beefy red. No odor and no mickey-wound erythema or increased warmth to touch. , No drainage, No no odor and No surrounding erythema Wound Narrative: The wound continues to shrink. The length is now 8 cm and the width is 2.8 cm. The depth is 0.1cm at the biopsy site in the more proximal wound. No slough. There is no erythema, no odor and no purulent DC. There was some adherent lilibeth at the margins of the wound which was debrided off. the new epithelium is fragile and when I debride the Lilibeth off the wound some skin comes with it. There really was no slough in the wound. The new epithelium continues to migrate in from the wound margins and there are many island of new skin within the wound now. Neuro CN's II-XII intact bilaterally Speech: speech normal Psych Psych Narrative: very anxious today. Appearance: appropriate Mood & Affect: anxious; Negative for depressed Medical Records Data Medical Nutrition Assessment Dietitian: Malnutrition Criteria Met Start: 05/29/22 08:26 Freq: Status: Active Protocol: Document 06/22/22 16:03 (Rec: 06/22/22 16:03 [id number]) Nutrition Malnutrition Evidence of Malnutrition Exists Yes Malnutrition (severe): Chronic Evidenced By Suboptimal Energy Intake ( Severe),Weight Loss (Severe) Clinical Problem Chronic Disease or Condition Related Malnutrition Etiology Severe protein-calorie malnutrition in the context of chronic disease related to inadequate oral intake Signs/Symptoms as evidenced by ~11% wt loss x past 6 months and oral intake meeting less than 50% estimated nutrition needs Status Active Problem Recommendation Dietitian Recommendations/Changes 1) Regular diet as tolerated 2) Will continue Pivot 1.5 via PEG bolus feeds after meals and at HS- 135mL bolus 4x/day (PRN at meal times, continue HS feed) w/ 15mL H2O flush before and after each bolus plus 60mL H2O flush every 6 hours to provide 810 calories, 50 g protein, and 765mL fluid /day. As ordered, enteral nutrition meets about 50-60% of estimated calorie/protein needs. Will monitor PO intake, wt, and adjust nutrition support as indicated. 3) Continue premier protein drinks from home as tolerated; dislikes ensure. Daily breakfast smoothie- 12 oz fruit (no large seeds no kiwi) , ice, vanilla ensure, 1 scoop beneprotein (thin enough to drink w/ straw) 4) Adrian BID for wound healing . 5) Weight daily as ordered. Weight / BMI Weight Weight: 89 lb 11.65 oz Body Mass Index (BMI) 29.5 ABG / Lab / Microbiology Data Result Diagrams: 06/26/22 12:06 06/26/22 12:06 Laboratory: Laboratory Results - last 24 hr 06/26/22 12:06: WBC 10.9, RBC 3.80 L, Hgb 11.5 L, Hct 35.8 L, MCV 94.2, MCH 30.3, MCHC 32.1, RDW Std Deviation 53.9 H, RDW Coeff of Seema 15.6 H, Plt Count 564 H, MPV 8.4, Immature Gran % (Auto) 0.500, Neut % (Auto) 73.1 H, Lymph % (Auto) 16.5 L, Garrard % (Auto) 6.4, Eos % (Auto) 2.7, Baso % (Auto) 0.8, Absolute Neuts (auto) 8.0 H, Absolute Lymphs (auto) 1.81, Nucleated RBC % 0 06/26/22 12:06: Sodium 136, Potassium 3.5, Chloride 100, Carbon Dioxide 26.0, Anion Gap 10, BUN 39 H, Creatinine 0.54 L, Estim Creat Clear Calc 86.31, Est GFR (MDRD) Af Amer 158, Est GFR (MDRD) Non-Af 131, BUN/Creatinine Ratio 72.2 H, Glucose 104, Calcium 10.3 H, Magnesium 1.6 06/26/22 12:06: PTH Intact 15.6 L Microbiology: Microbiology 06/08/22 19:45 Stool Stool Lactoferrin - Final 06/08/22 11:08 Stool C. difficile DNA Amplification - Final 06/08/22 11:08 Stool Stool Occult Blood (MARYANN) - Final Occult Blood Positive 05/31/22 09:40 Stool Stool Occult Blood (MARYANN) - Final Meaningful Use Info Meaningful Use Diagnoses (Choose all that apply): None applicable Discharge Plan Admission Admit Date/Time: 05/28/22 17:21 Primary Reason for Your Visit: Debility due to severe malnutrition/intra- abdominal abscess. Attending Provider: Anabela Disla Primary Care Provider: Jam Verde Consulting Providers: Reed Rodarte ; Edilberto Ritter Chi ; Renzo Hayden ; Carlyle Todd ; Theodore Perez ; Reed Mcgrath ; Kiko Kiran ; Franki Laguerre ; Klaus Cartagena ; Chelsea Hernandez ASSOCIATE SOFTWARE APPLICATION ENGINEER Instructions Additional Instructions / Restrictions: 1. NS at 100 CC/hr - must have at least 2500 cc of fluid intake daily Discharge Orders/Prescriptions Prescriptions: New potassium chloride 20 mEq/15 mL Liquid 40 meq PO BIDCM Qty: 1 0RF pantoprazole 20 mg Tablet,Delayed Release (Dr/Ec) 40 mg PO BID Qty: 1 0RF cholecalciferol (vitamin D3) 25 mcg (1,000 unit) Tablet 50 mcg PO DAILY Qty: 1 0RF ascorbic acid (vitamin C) 500 mg Tablet 500 mg PO BIDCM Qty: 1 0RF mirtazapine 15 mg Tablet 22.5 mg PO QHS Qty: 1 0RF sodium chloride 0.9 % (flush) [BD PosiFlush Normal Saline 0.9] Syringe 10 - 40 ml IV UD PRN (Reason: Saline Flush) Qty: 0 0RF cholestyramine (with sugar) 4 gram Powder In Packet 4 g PO TIDAC Qty: 1 0RF heparin, porcine (PF) 10 unit/mL Syringe 50 units IV UD Qty: 0 0RF Mag 64 64 mg Tablet,Delayed Release (Dr/Ec) 128 mg PO BID Qty: 1 0RF Pivot 1.5 Herbie 0.09 gram- 1.5 kcal/mL Liquid 60 ml G-tube CLARIFY Qty: 1 0RF Rx Instructions: 60 cc/hr from 10 PM until 6 AM daily spironolactone 25 mg Tablet 25 mg PO BID Qty: 1 0RF zinc sulfate 50 mg zinc (220 mg) Capsule 220 mg PO DAILY Qty: 1 0RF vitamin E (dl, acetate) 180 mg (400 unit) Capsule 400 units PO DAILYCM Qty: 1 0RF Continued lidocaine-prilocaine 2.5-2.5 % cream 1 applic topical ONCE PRN (Reason: port access) 30 Days Qty: 30 2RF ondansetron 8 mg tablet,disintegrating 8 mg PO Q8H PRN (Reason: nausea and vomiting) Qty: 30 2RF loperamide 2 mg Capsule 4 mg PO Q4H PRN PRN (Reason: Diarrhea) Qty: 30 0RF acetaminophen 650 mg/20.3 mL Solution 1,000 mg PO Q8H PRN (Reason: Pain 1-10 Or Fever) Qty: 0 0RF sodium chloride 0.9 % (flush) [Normal Saline Flush] Syringe 10 - 40 ml IV UD PRN (Reason: IV flush) Discontinued cholecalciferol (vitamin D3) 1,000 unit capsule 25 mcg (1,000 unit) capsule 2,000 unit PO DAILY duloxetine 20 mg capsule,delayed release(DR/EC) 20 mg PO DAILY prochlorperazine maleate 10 mg tablet 10 mg PO Q6H PRN (Reason: nausea and vomiting) Qty: 30 2RF Magnesium Malate 750 mg PO QHS scopolamine base 1 mg over 3 days patch 3 day 1 patch transdermal Q72H MAGIC MOUTH WASH (BMX) 180 mL suspension 15 ml PO .Q6HR Rx Instructions: diphenhydramine 12.5 mg/5 mL oral liquid 60 mL; aluminum-mag hydroxide- simethicone 400 mg-400 mg-40 mg/5 mL oral susp 60 mL; Lidocaine Viscous 2 % mucosal solution 60 mL; Per 180 mL sennosides-docusate sodium [Stool Softener-Stimulant Laxat] 8.6-50 mg Tablet 2 tab PO BID PRN PRN (Reason: Constipation) Qty: 0 0RF midodrine 5 mg tablet 10 mg PO TIDCM potassium chloride 20 mEq/15 mL liquid 20 meq PO TID pantoprazole 40 mg tablet,delayed release (DR/EC) 40 mg PO DAILY meropenem 1 gram recon soln 1 g IV Q8 menthol-zinc oxide [Calmoseptine] 0.44-20.6 % ointment 1 applic topical TID Protocol: *Topical Application Instructions APPLICATION INSTRUCTIONS: apply to coccyx Ensure Plus High Protein 0.08 gram-1.5 kcal/mL liquid 120 ml PO 4X/DAY Rx Instructions: OK per Dr Juares for pt to have Protein shake from home Referrals / Follow Up: Jam Verde MD [Primary Care Provider] - Theodore Perez MD [Med Staff - Active Staff] - Samantha Osorio MD [Med Staff - Active Staff] - Disposition Disposition (needs filled in before D/C Order can be placed): Acute Care Hospital Charges/Coding Visit Charges Inpatient E&M: 75466 Disch Hosp >30min
--- NOTE | 2022-06-27 10:20 | DCINST_ITS ---
Discharge Instructions Diet Discharge Diet: - (Fruit Punch Adrain BID) Follow Up Care Test Results: Test results from this visit will be discussed in further detail at your follow- up appointment, if applicable. Discharge Plan Admission Admit Date/Time: 05/28/22 17:21 Primary Reason for Your Visit: Debility due to severe malnutrition/intra- abdominal abscess. Attending Provider: Anabela Disla Primary Care Provider: Jam Verde Consulting Providers: Reed Rodarte ; Edilberto Ritter Chi ; Renzo Hayden ; Carlyle Sparks ; Theodore Perez ; Reed Mcgrath ; Kiko Kiran ; Franki Laguerre ; Klaus Cartagena ; Chelsea Hernandez POTATO INSPECTOR Instructions Additional Instructions / Restrictions: 1. NS at 100 CC/hr - must have at least 2500 cc of fluid intake daily Discharge Orders/Prescriptions Prescriptions: New potassium chloride 20 mEq/15 mL Liquid 40 meq PO BIDCM Qty: 1 0RF pantoprazole 20 mg Tablet,Delayed Release (Dr/Ec) 40 mg PO BID Qty: 1 0RF cholecalciferol (vitamin D3) 25 mcg (1,000 unit) Tablet 50 mcg PO DAILY Qty: 1 0RF ascorbic acid (vitamin C) 500 mg Tablet 500 mg PO BIDCM Qty: 1 0RF mirtazapine 15 mg Tablet 22.5 mg PO QHS Qty: 1 0RF sodium chloride 0.9 % (flush) [BD PosiFlush Normal Saline 0.9] Syringe 10 - 40 ml IV UD PRN (Reason: Saline Flush) Qty: 0 0RF cholestyramine (with sugar) 4 gram Powder In Packet 4 g PO TIDAC Qty: 1 0RF heparin, porcine (PF) 10 unit/mL Syringe 50 units IV UD Qty: 0 0RF Mag 64 64 mg Tablet,Delayed Release (Dr/Ec) 128 mg PO BID Qty: 1 0RF Pivot 1.5 Herbie 0.09 gram- 1.5 kcal/mL Liquid 60 ml G-tube CLARIFY Qty: 1 0RF Rx Instructions: 60 cc/hr from 10 PM until 6 AM daily spironolactone 25 mg Tablet 25 mg PO BID Qty: 1 0RF zinc sulfate 50 mg zinc (220 mg) Capsule 220 mg PO DAILY Qty: 1 0RF vitamin E (dl, acetate) 180 mg (400 unit) Capsule 400 units PO DAILYCM Qty: 1 0RF Continued lidocaine-prilocaine 2.5-2.5 % cream 1 applic topical ONCE PRN (Reason: port access) 30 Days Qty: 30 2RF ondansetron 8 mg tablet,disintegrating 8 mg PO Q8H PRN (Reason: nausea and vomiting) Qty: 30 2RF loperamide 2 mg Capsule 4 mg PO Q4H PRN PRN (Reason: Diarrhea) Qty: 30 0RF acetaminophen 650 mg/20.3 mL Solution 1,000 mg PO Q8H PRN (Reason: Pain 1-10 Or Fever) Qty: 0 0RF sodium chloride 0.9 % (flush) [Normal Saline Flush] Syringe 10 - 40 ml IV UD PRN (Reason: IV flush) Discontinued cholecalciferol (vitamin D3) 1,000 unit capsule 25 mcg (1,000 unit) capsule 2,000 unit PO DAILY duloxetine 20 mg capsule,delayed release(DR/EC) 20 mg PO DAILY prochlorperazine maleate 10 mg tablet 10 mg PO Q6H PRN (Reason: nausea and vomiting) Qty: 30 2RF Magnesium Malate 750 mg PO QHS scopolamine base 1 mg over 3 days patch 3 day 1 patch transdermal Q72H MAGIC MOUTH WASH (BMX) 180 mL suspension 15 ml PO .Q6HR Rx Instructions: diphenhydramine 12.5 mg/5 mL oral liquid 60 mL; aluminum-mag hydroxide- simethicone 400 mg-400 mg-40 mg/5 mL oral susp 60 mL; Lidocaine Viscous 2 % mucosal solution 60 mL; Per 180 mL sennosides-docusate sodium [Stool Softener-Stimulant Laxat] 8.6-50 mg Tablet 2 tab PO BID PRN PRN (Reason: Constipation) Qty: 0 0RF midodrine 5 mg tablet 10 mg PO TIDCM potassium chloride 20 mEq/15 mL liquid 20 meq PO TID pantoprazole 40 mg tablet,delayed release (DR/EC) 40 mg PO DAILY meropenem 1 gram recon soln 1 g IV Q8 menthol-zinc oxide [Calmoseptine] 0.44-20.6 % ointment 1 applic topical TID Protocol: *Topical Application Instructions APPLICATION INSTRUCTIONS: apply to coccyx Ensure Plus High Protein 0.08 gram-1.5 kcal/mL liquid 120 ml PO 4X/DAY Rx Instructions: OK per Dr Juares for pt to have Protein shake from home Referrals / Follow Up: Jam Verde MD [Primary Care Provider] - Theodore Perez MD [Med Staff - Active Staff] - Samantha Osorio MD [Med Staff - Active Staff] - Disposition Disposition (needs filled in before D/C Order can be placed): Acute Care Hospital
[2022-06-27] MEDS: Ondansetron ODT 4 MG Tablet 8 MG PO (10:41)
[2022-06-27 10:49] VITALS: BP 103/59; PULSE 94; RESP 17; TEMP 36.8; O2SAT 100
[2022-06-27] MEDS: LORazepam 2 MG/ML Syringe 1 MG IV (11:24)
== END 2022-06-27 11:27 | disposition short-term general hospital (02) | DRG 371 ==
PROVIDERS: Internal Medicine Gastroenterology; Admitting Provider Family Medicine Geriatric Medicine; PCP Family Medicine; Visit Provider Internal Medicine
PROC: 0DJD8ZZ Inspection of Lower Intestinal Tract, Via Natural or Artificial Opening Endoscopic (ICD-10-PCS; CPT 45378; principal; 2022-06-09 15:55)
DX: K63.0 Abscess of intestine (principal); E43 Unspecified severe protein-calorie malnutrition; K26.4 Chronic or unspecified duodenal ulcer with hemorrhage; C77.3 Secondary and unspecified malignant neoplasm of axilla and upper limb lymph nodes; C79.89 Secondary malignant neoplasm of other specified sites; L97.212 Non-pressure chronic ulcer of right calf with fat layer exposed; E87.1 Hypo-osmolality and hyponatremia; E26.81 Bartter's syndrome; B96.1 Klebsiella pneumoniae [K. pneumoniae] as the cause of diseases classified elsewhere; C50.912 Malignant neoplasm of unspecified site of left female breast; G71.00 Muscular dystrophy, unspecified; E88.09 Other disorders of plasma-protein metabolism, not elsewhere classified; I95.1 Orthostatic hypotension; K21.9 Gastro-esophageal reflux disease without esophagitis; K44.9 Diaphragmatic hernia without obstruction or gangrene; F41.9 Anxiety disorder, unspecified; E55.9 Vitamin D deficiency, unspecified; E87.6 Hypokalemia; D50.9 Iron deficiency anemia, unspecified; K57.30 Diverticulosis of large intestine without perforation or abscess without bleeding; R73.9 Hyperglycemia, unspecified; Z92.21 Personal history of antineoplastic chemotherapy; Z17.0 Estrogen receptor positive status [ER+]; R13.10 Dysphagia, unspecified; Z68.21 Body mass index [BMI] 21.0-21.9, adult; Z79.899 Other long term (current) drug therapy; F32.A Depression, unspecified
CPT/HCPCS: 71250; 74019; 80048; 80053; 82040; 82274; 82533; 82653; 82705; 82962; 83036; 83630; 83690; 83735; 83930; 83935; 83970; 83993; 84100; 84132; 84145; 85014; 85018; 85025; 85027; 85652; 86140; 86850; 86900; 86901; 86920; 86922; 87177; 87209; 87329; 87493; 88305; 92526; 92610; 93923; 97110; 97140; 97162; 97166; 97530; 97535; 97542; 97802; 97803; J2185; J7030; J7050; P9016; P9047; A4216; J1940; J2405

== ENCOUNTER 2022-06-27 12:14 | Inpatient (IN) | payer OTHER, SELFPAY ==
[2022-06-27] VITALS (9 sets, daily range): BP systolic 85–116; BP diastolic 54–73; PULSE 89–114; RESP 14–18; TEMP 36.4–37; O2SAT 95–100; BMI 23.8
--- NOTE | 2022-06-27 | IMM_PTH ---
PATIENT: AMINA ESPOSITO LOC: [facility]3 U#:[id number] AGE/SX: 41/F ROOM: MS319 RE06/27/[address]: Dr. Samantha Osorio MD : 1980 BED: 1 DIS: 06/30/2022 SPEC #: [id number] RECD: 07/03/22 14:11 STATUS: DANYELLE REQ #: [id number] ABBY: 06/27/22 00:[address]: Samantha Osorio DEPT: IMMUNOHISTOCHEMISTRY RECD BY: Meseret De La Cruz ENTERED: 07/03/22 14:12 SP TYPE: IMMUNO OTHR DR: Dr. Jam Verde MD Tissues: Left breast, NOS Procedures: CK7 (add) Pankeratin (initial) Pankeratin (add) PHYSICIAN & INSTITUTION [place] [address] SPECIMEN INFORMATION: Tissue Source: Left breast Clinical Info: Carcinoma of left breast to axillary lymph node Specimen Number: [id number] #1, #17 CPT code: 64714, [id number] METHODOLOGY: Deparaffinized sections of prefer/formalin-fixed tissue or PAP/DQ stained slides are incubated with monoclonal/polyclonal antibodies/oligonucleotide probes. Localization is made via biotin free immunoperoxidase method. Appropriate controls are performed and reacted as expected. Results on target cell population are indicated in the following table: RESULTS: ANTIBODY / CLONE RESULT Block 1 AE1-3 (AE1/AE3/PCK26) negative CK7 (OV-TL12/30) negative Block 17 AE1-3 (AE1/AE3/PCK26) negative CK7 (OV-TL12/30) negative These tests were developed and their performance characteristics determined by [facility]. They may not have been cleared or approved by the [place]. Food and Drug Administration. The FDA has determined that such clearance or approval is not necessary. The above immunohistochemical/dualISH markers are ordered and reviewed by the Pathologist. INTERPRETATION: Left breast, biopsy: Six out of six lymph nodes, negative for metastatic carcinoma. DONNELL:leila 07/05/22
--- NOTE | 2022-06-27 12:35 | BREAST_PTH ---
PATIENT: AMINA ESPOSITO LOC: MS3 U#:[id number] AGE/SX: 41/F ROOM: MS319 RE06/27/[address]: Dr. Samantha Osorio MD : 1980 BED: 1 DIS: 06/30/2022 SPEC #: [id number] RECD: 06/27/22 16:44 STATUS: DANYELLE MONTE #: [id number] ABBY: 06/27/22 12:[address]: Samantha Osorio DEPT: SURGICAL PATHOLOGY RECD BY: Jo Silver ENTERED: 06/28/22 10:28 SP TYPE: BREAST OTHR DR: Dr. Jam Verde MD Tissues: Left breast, NOS Procedures: Surgery Specimen Level HEADER OPERATION: Mastectomy and axillary lymph node dissection PRE-OP DIAGNOSIS: Carcinoma of left breast to axillary lymph node TISSUE SUBMITTED: Left breast tissue, long stitch ? lateral, short stitch - superior MICROSCOPIC DIAGNOSIS Left breast, mastectomy and axillary node dissection: Negative for residual invasive carcinoma. Six out of six lymph nodes, negative for metastatic carcinoma. Fibrocystic changes, adenosis and intraductal hyperplasia with focal atypia. Frequent microcalcifications. Focal changes consistent with previous biopsy site. See comment. SJ:silvia 07/04/2022 COMMENT BREAST CANCER SUMMARY (including previous biopsy specimen [id number]) Procedure ? total mastectomy (mastectomy and left axillary node dissection) Specimen laterality - left Tumor site ? as per previous biopsy specimen, 11 o?clock, 5 cm from nipple. Tumor size ? no residual invasive carcinoma. Histologic type ? previous biopsy specimen, invasive ductal carcinoma. Histologic grade (Uri grade): Previous biopsy specimen [id number]) Glandular/tubular differentiation score - 3 Nuclear pleomorphism score - 3 Mitotic count score - 1 No residual carcinoma. Ductal carcinoma in situ ? not seen Lobular carcinoma in situ ? not seen Tumor extension: Skin ? skin is present and uninvolved. Nipple ? ductal carcinoma in situ does not involve nipple epidermis. Skeletal muscle ? skeletal muscle is present and dissection tissue is free of tumor. Margins: Invasive carcinoma margin ? cannot be assessed as no invasive carcinoma is noted. Regional lymph nodes: Total number of lymph nodes examined - 6 Number of lymph nodes with macrometastases, micrometastases or isolated tumor cells - 0 Treatment effect in the breast ? definite response to presurgical therapy in invasive carcinoma. Treatment effect in lymph nodes ? no lymph node metastasis and no fibrous scarring in the lymph node is noted. Lymphvascular invasion ? not identified Dermal lymphvascular invasion - not identified Distant metastasis ? not applicable Additional Pathologic Findings ? fibrocystic changes, adenosis and intraductal hyperplasia with focal atypia. Ancillary Studies: Previously performed on same tumor ([id number] / [id number]) ER: positive (>95%, moderate intensity) [place]: positive (>95%, strong intensity) [id number]: positive (3+) Microcalcifications ? present in non-neoplastic tissue. Clinical History - Please make reference to previous specimens ([id number]) left breast, 11 o?clock, 5 cm, core biopsy with diagnosis of ?invasive ductal carcinoma? and ([id number]) left axillary lymph node, biopsy with diagnosis of ?lymph node tissue positive for metastatic carcinoma,? (metastatic focus measuring 3 mm in greatest dimension). Extranodal extension is not seen. PATHOLOGIC STAGE: pT0(y) pN0(y) pMx The above summary is in compliance with [employer] [place] [employer] (CAP) Cancer Protocols Checklist and [place] [employer] Committee on Cancer (AJCC), Staging Manual, 8th Ed. The lymph nodes are negative for metastatic carcinoma on multiple H & E levels and immunohisto-chemical stains for cytokeratins ([id number]). This case was reviewed and diagnosis discussed with Dr. Osorio on 07/10/2022. Case has been reviewed in consultation with Dr. Jones who concurs with the above diagnosis. IDC:AM MICROSCOPIC DESCRIPTION Slides are reviewed. GROSS DESCRIPTION Received in fixative is one container labeled with the patient's name and designated left breast tissue, long stitch - lateral, short stitch - superior. The specimen consists of a mastectomy specimen consisting of breast tissue with overlying skin ellipse and detached pieces of adipose tissue (axillary contents). The breast tissue measures 15 x 15 x 4 cm. The overlying skin ellipse measures 13 x 4.5 cm and nipple measures 1 cm in greatest dimension. The specimen is inked as follows: posterior - black, superior - blue, inferior - green, medial - red and lateral - orange. Received are three detached pieces of adipose tissue measuring in aggregate 8 x 6.5 x 3 cm. The largest detached (axillary contents) measures 4 cm in greatest dimension. Multiple lymph nodes are identified. Corporate Sales Trainer sections are submitted as follows: 1 - multiple lymph nodes, 2-4 - largest pieces of tissue, possible fatty lymph node. More sections will be submitted after fixation. / SJ:silvia 06/28/2022 Sections reveal a miller, fibrous area in the outer quadrant measuring 2 x 2 x 2 cm. No definite mass is identified. This area is 1 cm away from the closest posterior margin. More sections are submitted as follows: 5 - nipple, entirely submitted, 6 - perpendicular posterior, superior, inferior margin, 7??perpendicular medial, lateral margins and skin, 8 & 9 - indurated area, 10 - consumer sales representative area adjacent to the indurated area, 11-16 - consumer sales representative sections from the other areas. Sections are submitted after additional fixation. / SJ:silvia 06/29/2022 More sections are submitted in four cassettes as follows: 17 - multiple possible lymph nodes, 18-20 - more sections of breast tissue. / DONNELL:silvia 07/03/2022 TC:5 CPT: 56561
--- NOTE | 2022-06-27 13:13 | HP.PCM.SX_ITS ---
HPI - General General Date of Admission: 06/27/22 HPI Narrative AMINA ESPOSITO, is a 41 F who presents for left mastectomy and left axillary lymph node dissection. Due to left breast cancer metastatic to lymph node, ER/IL positive, HER2 positive status post neoadjuvant care chemotherapy 2 out of 4 cycles. Due to complications neoadjuvant chemotherapy was stopped after patient had diverticular abscess and also found to have severe malnutrition in mid April. Patient subsequently had a Dobbhoff then PEG placed and has also improved her p.o. intake. Patient's previous leg wound from her brace has continued to heal well and almost completely healed over with the improved nutrition. Patient is also back on her antidepressant medications. [facility] Medical History (Updated 06/26/22 @ 17:[address] Anabela Disla, ) Alcohol use Anxiety Arthritis Arthrogryposis Braces as ambulation aid CINV (chemotherapy-induced nausea and vomiting) CPAP (continuous positive airway pressure) dependence Dehydration Depression Diarrhea Diarrhea due to drug Elevated C-reactive protein (CRP) (12/26/21) Encounter for chemotherapy management Encounter for education Heartburn History of diverticulitis History of echocardiogram History of edema History of irregular heartbeat Hypokalemia Hypomagnesemia Localized peritonitis Lung nodule, multiple Mucositis (ulcerative) due to antineoplastic therapy Mucositis (ulcerative) due to antineoplastic therapy Nausea Non-smoker Oral candidiasis Phlegmonous peritonitis Port-A-Cath in place Sepsis without acute organ dysfunction Sleep apnea Thrombocytosis Thrombocytosis Wears glasses Home Medications lidocaine-prilocaine 2.5 %-2.5 % topical cream 1 applic topical ONCE PRN port access 30 days #30 grams 02/23/22 [Rx Last Taken Unknown] ondansetron 8 mg disintegrating tablet 8 mg PO Q8H PRN nausea and vomiting #30 tabs 04/18/22 [Rx Last Taken Unknown] acetaminophen 650 mg/20.3 mL oral solution 1,000 mg (31.2308 mL) PO Q8H PRN Pain 1-10 Or Fever #0 mL 05/28/22 [Rx Last Taken Unknown] loperamide 2 mg capsule 4 mg PO Q4H PRN PRN Diarrhea #30 caps 05/28/22 [Rx Last Taken Unknown] sodium chloride 0.9 % (flush) (Normal Saline Flush 0.9 % injection syringe) 10 - 40 ml IV UD PRN IV flush 05/28/22 [History Last Taken Unknown] ascorbic acid (vitamin C) 500 mg tablet 500 mg PO BIDCM #1 TAB 06/27/22 [Rx Last Taken Unknown] cholecalciferol (vitamin D3) 25 mcg (1,000 unit) tablet 50 mcg PO DAILY #1 TAB 06/27/22 [Rx Last Taken Unknown] cholestyramine (with sugar) 4 gram powder for susp in a packet 4 g PO TIDAC #1 ea 06/27/22 [Rx Last Taken Unknown] heparin, porcine (PF) 10 unit/mL intravenous syringe 50 units (5 mL) IV UD #0 mL 06/27/22 [Rx Last Taken Unknown] magnesium chloride 64 mg (magnesium chloride) tablet,delayed release (Mag 64) 1 28 mg PO BID #1 TAB 06/27/22 [Rx Last Taken Unknown] mirtazapine 15 mg tablet 22.5 mg PO QHS #1 TAB 06/27/22 [Rx Last Taken Unknown] nut.tx.comp. immune systm,reg 0.09 gram-1.5 kcal/mL liquid for tube feed (Pivot 1.5 Herbie) 60 ml G-tube CLARIFY #1 mL 06/27/22 [Rx Last Taken Unknown] pantoprazole 20 mg tablet,delayed release 40 mg PO BID #1 TAB 06/27/22 [Rx Last Taken Unknown] potassium chloride 20 mEq/15 mL oral liquid 40 meq (30 mL) PO BIDCM #1 mL 06/27/22 [Rx Last Taken Unknown] sodium chloride 0.9 % (flush) (BD PosiFlush Normal Saline 0.9 % injection syringe) 10 - 40 ml IV UD PRN Saline Flush #0 mL 06/27/22 [Rx Last Taken Unknown] spironolactone 25 mg tablet 25 mg PO BID #1 TAB 06/27/22 [Rx Last Taken Unknown] vitamin E (dl, acetate) 180 mg (400 unit) capsule 400 units PO DAILYCM #1 cap 0 06/27/22 [Rx Last Taken Unknown] zinc sulfate 50 mg zinc (220 mg) capsule 220 mg PO DAILY #1 cap 06/27/22 [Rx Last Taken Unknown] Allergy/AdvReac Type Severity Reaction Status Date / Time kiwi Allergy Mild Anaphylaxis Verified 06/27/22 12:01 Penicillins Allergy Mild Anaphylaxis Verified 06/27/22 12:01 Gadolinium-MRI Contrast AdvReac Shortness Verified 06/27/22 12:01 Medium of breath [contrast dye] Family History Mother Diabetes Hypertension High cholesterol Thyroid disorder Uncle Cancer non-hodgkins lymphoma Grandfather Heart disease Grandmother Heart disease Brother Hypertension Unknown Breast cancer mother had 2 cousins with aggressive breast cancer Unknown Thyroid cancer maternal cousin Other Arthritis Depression Surgical History (Updated 06/12/22 @ 11:[address] Anabela Disla, DO) H/O release of tendon History of lymph node biopsy History of spinal fusion Social History household members: family current occupational status: employed current occupation: [employer] Smoking Status: Never smoker alcohol intake: current alcohol intake frequency: holidays/special occasions only details: occasional substance use type: does not use Vital Signs Vital Signs Vital Signs: 06/27/22 11:58 06/27/22 11:58 Temperature 98.2 F Temperature Source Temporal Pulse Rate 114 H Respiratory Rate 18 Respiratory Pattern Normal Blood Pressure 116/60 Blood Pressure Mean 78 Blood Pressure Source Monitor Blood Pressure Position Semi-Fowlers Blood Pressure Location Left Arm Pulse Ox 100 Oxygen Delivery Method Room Air Weight Weight: 91 lb 12.8 oz Body Mass Index (BMI) 23.8 Physical Exam Narrative Left breast; no obvious mass on exam as prior to patient's 2 chemotherapy treatments. No obvious lymphadenopathy. Patient does have biopsy-proven positive lymph node with clip in place. Const oriented x3 and no apparent distress Resp normal respiratory effort Cardio regular rate GI soft to palpation GI Narrative: PEG in place Assessment & Plan Assessment/Plan (1) Carcinoma of left breast metastatic to axillary lymph node: (2) Metastatic breast cancer: PLAN: Plan Planning for a left mastectomy and left axillary lymph node dissection to hopefully prevent any need for further adjuvant chemotherapy as patient did not do well with the neoadjuvant. Discussed that a full lymph node dissection will increase the risk for lymphedema. I have told the patient the risks of surgery, including but not limited to: infection, bleeding, scar tissue, seroma and persistent seroma, lymph leak, injury to any blood vessels, injury to any nerves (particularly the long thoracic, the thoracodorsal, and the second intercostal brachial and the resultant sequelae), lymphedema, cosmetic deformity, dysesth esias, wound infections, further surgery (especially if margins are not clear), complications of anesthesia, etc. the patient understands. I have answered all the patient?s questions at this point to her satisfaction and she has no further questions. Samantha Osorio M.D. Pager: [phone] [facility] [address] [place] [address], [address] [place] [address] Office: [phone]
--- NOTE | 2022-06-27 13:55 | SUR.PHASEII ---
PT REFUSES SERUM HCG TEST. ANESTHESIA MADE AWARE NO NEW ORDERS AT THIS TIME.
[2022-06-27] MEDS: Lactated Ringers 1,000 ML 15 ML IV ×2 (13:59→17:00)
[2022-06-27] MEDS: Clindamycin 900 MG/50 ML BAG 75 MG IV (14:10)
--- NOTE | 2022-06-27 16:43 | OP.PCM_ITS ---
Report of Operation Date of Procedure: 06/27/22 Pre-Operative Diagnosis: left breast cancer Post-Operative Diagnosis: same Surgery/Procedure Performed:: left mastectomy and left axillary lymph node dissection Surgeon: Samantha Osorio hydraulic strainer operator: Marva Roe hydraulic strainer operator: Reed Ramirez Type of Anesthesia: General/Supplemental Anesthesiologist: Jam Solitario Special Medications: Clindamycin 900 mg IV x1 Specimen's removed: Left mastectomy, left axillary lymph node contents Drains: BERTO 15 Syriac round x2 Estimated Blood Loss (mL): 20 cc Fluids Replaced: Per anesthesia Description of Procedure: Synoptic Portion: Element Response Options Operation performed with curative intent. Yes Resection was performed within the boundaries of the axillary vein, chest wall (serratus anterior), and latissimus dorsi. Yes Nerves identified and preserved during dissection (select all that apply) long thoracic, thoracodorsal, intercostal brachial was identified distal was very small and unable to be preserved. Level III nodes were removed. No Description of Procedure: The patient was taken to the operating room and general anesthesia was induced. The left breast and axilla were prepped and draped in usual sterile fashion. A timeout was completed verifying correct patient, procedure, site, positioning, special equipment prior to beginning procedure. Skin incision was made that encompassed the nipple areolar complex and the previous biopsy scar in past and generally oblique direction across the breast. Flaps are raised in the avascular plane between the prescription he continues tissues in the breast tissue from the clavicle superiorly, the sternum medially, the anterior rectus sheath inferiorly, and posterolateral border of the pectoralis major muscle laterally. Pt had an chronically atrophied pectoralis muscle which only was present very superiorly- otherwise dissection was at the ribs/intercostal muscles. Hemostasis was achieved in the flaps. Next, the breast tissue and underlying pectoralis fascia were excised from the pectoralis major muscle, progressing from medial to laterally. At the lateral border of the pectoralis major muscle, the breast tissue was swung laterally and the lateral pedicle identified with the breast tissue gave way to the fat of the axilla. The lateral pedicle was incised and the specimen removed and oriented for pathology. The wound was irrigated and hemostasis was achieved. The borders of the axillary vein, latissimus dorsi, serratus anterior are identified. The long thoracic and thoracodorsal nerves are also identified and protected throughout the dissection. The intercostobrachial nerve was identified but was very small distally and unable to be preserved. All the nodes within these borders along with the positive lymph node are removed and sent to pathology. The cavities were irrigated. Hemostasis was checked. Closed suction drains x2 were brought into the operating field through a separate stab incision and sutured to skin with 3-0 nylon suture. The incision was closed with interrupted subdermal 2-0 Vicryl followed by a subcuticular layer of 4-0 Monocryl and Steri- Strips. The wound was dressed and Chadwick wrap placed. The patient tolerated procedure well was taken to the postanesthesia care in stable condition. Complications none
[2022-06-27] MEDS: Lactated Ringers 1,000 ML 100 ML IV (17:00)
[2022-06-27] MEDS: Acetaminophen 325 MG Tablet 650 MG PO (20:04)
[2022-06-27] MEDS: Pivot 1.5 Cal 1,000 ML 40 ML GT (20:04)
[2022-06-27] MEDS: Pantoprazole Sodium 40 MG Tablet PO (22:13)
[2022-06-27] MEDS: Spironolactone 25 MG Tablet PO (22:13)
[2022-06-27] MEDS: Mirtazapine 15 MG Tablet 22.5 MG PO (22:13)
[2022-06-27] MEDS: Magnesium Chloride 64 MG Delay Rel.Tablet 128 MG PO (22:13)
[2022-06-28 02:50] VITALS: BP 115/67; PULSE 94; RESP 18; TEMP 36.4; O2SAT 99
[2022-06-28] MEDS: Lactated Ringers 1,000 ML 100 ML IV (02:55)
[2022-06-28] MEDS: Acetaminophen 325 MG Tablet 650 MG PO ×4 (02:55→21:44)
[2022-06-28 05:27] LABS: Absolute Lymphocyte Count 1.24 X10^3/uL (0.83-4.51); Absolute Neutrophil Count 10.4 X10^3/uL (2.0-7.7); Basophil# 0.04 X10^3/uL; Basophil% 0.3 % (0-1); Hematocrit 25.1 % (37-47); Hemoglobin 8.2 g/dL (12.0-15.0); Lymphocyte # 1.24 X10^3/ul (0.83-4.51); Lymphocyte % 9.5 % (19-41); Mean Corp Hgb Conc 32.7 g/dL (32-36); Mean Corpuscular Hgb 31.1 pg (27.0-32.0); Mean Corpuscular Volume 95.1 fL (81-99); Mean Platelet Vol. 8.6 fl (6.2-12.0); Monocyte# 1.31 X10^3/uL; Monocyte% 10.1 % (0-10); NRBC Flagged by Analyzer 0 % (0-5); Neutrophil # 10.39 X10^3/uL (2.7-7.7); Neutrophil % 79.7 % (47-70); Platelet Count 385 K/mm3 (150-450); RBC Distribution Width CV 15.7 % (11.6-14.6); RBC Distribution Width SD 54.6 fl (35.1-43.9); Red Blood Count 2.64 M/mm3 (4.2-5.4)
[2022-06-28] MEDS: Cholestyramine/Sucrose 4 GM/PACKET PO ×3 (05:31→16:26)
[2022-06-28 05:53] LABS: Anion Gap 6 (5-15); BUN 31 mg/dL (7-18); BUN/Creat Ratio 69.7 RATIO (10-20); Calcium,Total 8.3 mg/dL (8.5-10.1); Chloride 104 mmol/L (98-107); Creatinine, Serum 0.44 mg/dL (0.55-1.02); EST Glomerular Filtration Rate 163 mL/min (>60); Est Glom Filt Rate - Afr Amer 198 mL/min (>60); Estimated Creatinine Clearance 108.37 ml/min; Glucose 176 mg/dL (74-106); Magnesium 1.7 mg/dL (1.6-2.6); Phosphorus 3.1 mg/dL (2.5-4.9); Potassium 4.1 mmol/L (3.5-5.1); Sodium Level 139 mmol/L (136-145)
[2022-06-28 09:14] VITALS: BP 98/60; PULSE 95; RESP 18; TEMP 36.8; O2SAT 95
[2022-06-28] MEDS: Vitamin E 400 UNITS Capsule PO (09:20)
[2022-06-28] MEDS: Potassium Chloride Oral Soln 20 MEQ/15 ML UDC 40 MEQ PO ×2 (09:20→18:00)
[2022-06-28] MEDS: Cholecalciferol (VIT D3) 25 MCG TABLET (1,000 UNITS) 50 MCG PO (09:21)
[2022-06-28] MEDS: Ascorbic Acid 500 MG Tablet PO ×2 (09:21→18:00)
[2022-06-28] MEDS: Pantoprazole Sodium 40 MG Tablet PO ×2 (09:21→21:47)
[2022-06-28] MEDS: Spironolactone 25 MG Tablet PO ×2 (09:22→21:47)
[2022-06-28] MEDS: Magnesium Chloride 64 MG Delay Rel.Tablet 128 MG PO ×2 (09:22→21:47)
--- NOTE | 2022-06-28 12:58 | PN.SURG_ITS ---
Subjective Subjective Pt states she has minimal pain in left chest- mild in axilla. saqib PO and TF Objective Data Objective Data Vital Signs: Vital Signs Temp Pulse Resp BP Pulse Ox O2 Del Method O2 Flow Rate 98.3 F 95 18 98/60 95 Room Air 6 06/28/22 09:14 06/28/22 09:14 06/28/22 09:14 06/28/22 09:14 06/28/22 09:14 06/28/22 09:30 06/27/22 17:06 Oxygen Flow Rate (L/min) 6 Oxygen Delivery Method Room Air Weight: 91 lb 12.808 oz Body Mass Index (BMI) 23.8 Intake & Output: Intake and Output for Last 24 Hours 06/26/22 06/27/22 06/28/22 23:59 23:59 23:59 Intake Total 1110 / 1110 1630.67 / 1630.67 Output Total 350 / 350 1154 / 1154 Balance 760 / 760 476.67 / 476.67 Medical Nutrition Assessment Dietitian: Malnutrition Criteria Met Start: 06/28/22 10:45 Freq: Status: Active Protocol: Document 06/28/22 10:45 AG (Rec: 06/28/22 10:45 AG [id number]) Nutrition Malnutrition Evidence of Malnutrition Exists Yes Malnutrition (severe): Chronic Evidenced By Suboptimal Energy Intake ( Severe),Weight Loss (Severe) Clinical Problem Chronic Disease or Condition Related Malnutrition Etiology chronic, severe malnutrition related to inadequate oral intake w/ increased energy needs d/t cancer, wounds Signs/Symptoms as evidenced by estimated PO intake meeting <75% of estimated energy needs over past 3-4 months; unintentional wt loss of 7.8kg/16% x 5 months Status Active Problem Recommendation Dietitian Recommendations/Changes continue regular diet as tolerated; will order Adrian BID for wound healing. As discussed w/ pt, will continue continuous enteral nutrition support via PEG- Pivot 1.5 at 40mL/hour w/ 60mL H2O flush every 4 hours to provide 1440 calories, 90 g protein, and 1080mL fluid/day. Drinking fluids PO and getting IV fluids so will refrain from adjusting flushes at this time . Will monitor wt, labs as indicated. Will consider transition to previously ordered enteral nutrition ( Pivot 1.5 135mL 4x/day PRN) as PO intake/appetite improves. Lab / Micro Data Result Diagrams: 06/28/22 05:20 06/28/22 05:20 Labs: Laboratory Results - last 24 hr 06/28/22 05:20: WBC 13.0 H, RBC 2.64 L, Hgb 8.2 L, Hct 25.1 L, MCV 95.1, MCH 31.1, MCHC 32.7, RDW Std Deviation 54.6 H, RDW Coeff of Seema 15.7 H, Plt Count 385, MPV 8.6, Immature Gran % (Auto) 0.400, Neut % (Auto) 79.7 H, Lymph % (Auto) 9.5 L, [place] % (Auto) 10.1 H, Eos % (Auto) 0.0, Baso % (Auto) 0.3, Absolute Neuts (auto) 10.4 H, Absolute Lymphs (auto) 1.24, Nucleated RBC % 0 06/28/22 05:20: Sodium 139, Potassium 4.1, Chloride 104, Carbon Dioxide 29.0, Anion Gap 6, BUN 31 H, Creatinine 0.44 L, Estim Creat Clear Calc 108.37, Est GFR (MDRD) Af Amer 198, Est GFR (MDRD) Non-Af 163, BUN/Creatinine Ratio 69.7 H, Gl ucose 176 H, Calcium 8.3 L, Phosphorus 3.1, Magnesium 1.7 Physical Exam Narrative left mastectomy incision dressed c/d/i with steris w CAMERON wrap Const oriented x3 and no apparent distress Resp normal respiratory effort Cardio regular rate Assessment & Plan Assessment/Plan (1) S/P left mastectomy: (2) History of lymph node dissection of axilla: (3) Carcinoma of left breast metastatic to axillary lymph node: (4) PEG (percutaneous endoscopic gastrostomy) status: (5) Severe malnutrition: (6) Debility: PLAN: Plan Patient is tolerating her tube feeds as well some p.o. Incision healing well with Steri-Strips, JPs serosanguineous x2 PT OT ordered. Patient plan to go back to rehab but needs to stay in the hospital for 72 hours prior for pre-CERT. Hemoglobin 8.2 dilutional as patient did not have that much blood loss during surgery and she was probably never actually 10 prior to surgery that was p robably due to dehydration. Samantha Osorio M.D. Pager: [phone] [facility] [address] [place] [address], [address] [place] [address] Office: [phone]
--- NOTE | 2022-06-28 14:14 | CASEMGMT ---
Social Work SW in to pt room to confirm return to [facility] rehab unit. Pt stated yes that is the plan. SW sent message to Chelle that precert can be started for pt to return to rehab unit now. PLAN: Rehab Unit, pending precert [place] [place]
[2022-06-28 14:15] VITALS: BP 94/65; PULSE 109; RESP 18; TEMP 37.2; O2SAT 100
[2022-06-28] MEDS: 0.9% Saline Lock 10 ML Syringe IV (15:25)
[2022-06-28] MEDS: Pivot 1.5 Cal 1,000 ML 40 ML GT (18:30)
[2022-06-28 20:33] VITALS: BP 105/60; PULSE 108; RESP 18; TEMP 36.8; O2SAT 98
[2022-06-28] MEDS: oxyCODONE 5 MG Tablet PO (21:46)
[2022-06-28] MEDS: Mirtazapine 15 MG Tablet 22.5 MG PO (21:47)
[2022-06-29 02:58] VITALS: BP 107/63; PULSE 96; RESP 18; TEMP 36.5; O2SAT 99
[2022-06-29] MEDS: Cholestyramine/Sucrose 4 GM/PACKET PO ×3 (06:10→15:42)
[2022-06-29 08:56] VITALS: BP 109/66; PULSE 101; RESP 18; TEMP 36.7; O2SAT 100
[2022-06-29] MEDS: Spironolactone 25 MG Tablet PO ×2 (10:44→21:29)
[2022-06-29] MEDS: Pantoprazole Sodium 40 MG Tablet PO ×2 (10:44→21:29)
[2022-06-29] MEDS: Vitamin E 400 UNITS Capsule PO (10:44)
[2022-06-29] MEDS: Cholecalciferol (VIT D3) 25 MCG TABLET (1,000 UNITS) 50 MCG PO (10:44)
[2022-06-29] MEDS: Magnesium Chloride 64 MG Delay Rel.Tablet 128 MG PO ×2 (10:44→21:30)
[2022-06-29] MEDS: Potassium Chloride Oral Soln 20 MEQ/15 ML UDC 40 MEQ PO ×2 (10:45→21:29)
[2022-06-29] MEDS: Ascorbic Acid 500 MG Tablet PO ×2 (10:45→21:30)
[2022-06-29] MEDS: Acetaminophen 325 MG Tablet 650 MG PO (10:49)
--- NOTE | 2022-06-29 10:49 | CASEMGMT ---
Social Work SW spoke with Chelle from Inpatient Rehab. Precert has not been obtained at this time. Pt will not be able to return to until precert is obtained and pt 70 post initial discharge from which will be Sunday afternoon. TRINY [place]
--- NOTE | 2022-06-29 12:14 | PCM.PN.SRG ---
Objective Data Objective Data Vital Signs: Vital Signs Temp Pulse Resp BP Pulse Ox O2 Del Method O2 Flow Rate 98.1 F 101 H 18 109/66 100 Room Air 6 06/29/22 08:56 06/29/22 08:56 06/29/22 08:56 06/29/22 08:56 06/29/22 08:56 06/29/22 08:56 06/27/22 17:06 Oxygen Flow Rate (L/min) 6 Oxygen Delivery Method Room Air Weight: 91 lb 12.808 oz Body Mass Index (BMI) 23.8 Intake & Output: Intake and Output for Last 24 Hours 06/27/22 06/28/22 06/29/22 23:59 23:59 23:59 Intake Total 1110 / 1110 4098.00 / 4098.00 820 / 820 Output Total 350 / 350 1191 / 1191 1420 / 1420 Balance 760 / 760 2907.00 / 2907.00 -600 / -600 Medical Nutrition Assessment Dietitian: Malnutrition Criteria Met Start: 06/28/22 10:45 Freq: Status: Active Protocol: Document 06/28/22 10:45 AG (Rec: 06/28/22 10:45 AG [id number]) Nutrition Malnutrition Evidence of Malnutrition Exists Yes Malnutrition (severe): Chronic Evidenced By Suboptimal Energy Intake ( Severe),Weight Loss (Severe) Clinical Problem Chronic Disease or Condition Related Malnutrition Etiology chronic, severe malnutrition related to inadequate oral intake w/ increased energy needs d/t cancer, wounds Signs/Symptoms as evidenced by estimated PO intake meeting <75% of estimated energy needs over past 3-4 months; unintentional wt loss of 7.8kg/16% x 5 months Status Active Problem Recommendation Dietitian Recommendations/Changes continue regular diet as tolerated; will order Adrian BID for wound healing. As discussed w/ pt, will continue continuous enteral nutrition support via PEG- Pivot 1.5 at 40mL/hour w/ 60mL H2O flush every 4 hours to provide 1440 calories, 90 g protein, and 1080mL fluid/day. Drinking fluids PO and getting IV fluids so will refrain from adjusting flushes at this time . Will monitor wt, labs as indicated. Will consider transition to previously ordered enteral nutrition ( Pivot 1.5 135mL 4x/day PRN) as PO intake/appetite improves. 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 Incision healing well with Steri-Strips, JPs serosanguineous x2 PT OT ordered. Patient plan to go back to rehab once pre-CERT is completed pre-CERT. Continue pain control. Heparin SQ Samantha Osorio M.D. Pager: [phone] [facility] [address] [place] [address], [address] [place] [address] Office: [phone]
[2022-06-29] MEDS: Heparin Injection (Vial) 5,000 UNIT/ML VIAL 5000 UNIT SC (14:50)
[2022-06-29 15:00] VITALS: BP 104/58; PULSE 103; RESP 18; TEMP 37.2; O2SAT 100
[2022-06-29] MEDS: Pivot 1.5 Cal 1,000 ML 40 ML GT (19:16)
[2022-06-29 20:11] VITALS: BP 118/79; PULSE 116; RESP 18; TEMP 37; O2SAT 99
[2022-06-29] MEDS: oxyCODONE 5 MG Tablet PO (21:29)
[2022-06-29] MEDS: Mirtazapine 15 MG Tablet 22.5 MG PO (21:29)
[2022-06-30 02:51] VITALS: BP 115/75; PULSE 92; RESP 18; TEMP 36.4; O2SAT 99
[2022-06-30] MEDS: Cholestyramine/Sucrose 4 GM/PACKET PO ×2 (05:03→12:51)
[2022-06-30 08:50] VITALS: BP 113/71; PULSE 103; RESP 18; TEMP 36.8; O2SAT 98
--- NOTE | 2022-06-30 08:55 | PN.SURG_ITS ---
Subjective Subjective Patient is doing well. Denies any pain that is not controlled with Tylenol. Patient is tolerating diet and tolerating her tube feeds. JPs are serous Objective Data Objective Data Vital Signs: Vital Signs Temp Pulse Resp BP Pulse Ox O2 Del Method O2 Flow Rate 97.5 F L 92 18 115/75 99 Room Air 6 06/30/22 02:51 06/30/22 02:51 06/30/22 02:51 06/30/22 02:51 06/30/22 02:51 06/30/22 02:51 06/27/22 17:06 Oxygen Flow Rate (L/min) 6 Oxygen Delivery Method Room Air Weight: 91 lb 12.808 oz Body Mass Index (BMI) 23.8 Intake & Output: Intake and Output for Last 24 Hours 06/28/22 06/29/22 06/30/22 23:59 23:59 23:59 Intake Total 4098.00 / 4098.00 2520.67 / 2520.67 560 / 560 Output Total 1191 / 1191 1960 / 1960 800 / 800 Balance 2907.00 / 2907.00 560.67 / 560.67 -240 / -240 Medical Nutrition Assessment Dietitian: Malnutrition Criteria Met Start: 06/28/22 10:45 Freq: Status: Active Protocol: Document 06/28/22 10:45 AG (Rec: 06/28/22 10:45 AG [id number]) Nutrition Malnutrition Evidence of Malnutrition Exists Yes Malnutrition (severe): Chronic Evidenced By Suboptimal Energy Intake ( Severe),Weight Loss (Severe) Clinical Problem Chronic Disease or Condition Related Malnutrition Etiology chronic, severe malnutrition related to inadequate oral intake w/ increased energy needs d/t cancer, wounds Signs/Symptoms as evidenced by estimated PO intake meeting <75% of estimated energy needs over past 3-4 months; unintentional wt loss of 7.8kg/16% x 5 months Status Active Problem Recommendation Dietitian Recommendations/Changes continue regular diet as tolerated; will order Adrian BID for wound healing. As discussed w/ pt, will continue continuous enteral nutrition support via PEG- Pivot 1.5 at 40mL/hour w/ 60mL H2O flush every 4 hours to provide 1440 calories, 90 g protein, and 1080mL fluid/day. Drinking fluids PO and getting IV fluids so will refrain from adjusting flushes at this time . Will monitor wt, labs as indicated. Will consider transition to previously ordered enteral nutrition ( Pivot 1.5 135mL 4x/day PRN) as PO intake/appetite improves. 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 Incision healing well with Steri-Strips, JPs serous x2?1 BERTO was removed at bedside. Patient tolerated well. PT OT ordered. Patient plan to go back to rehab once pre-CERT is completed Continue pain control. Heparin SQ Samantha Osorio M.D. Pager: [phone] [facility] [address] [place] [address], [facility], [address] [place] [address] Office: [phone]
[2022-06-30] MEDS: oxyCODONE 5 MG Tablet PO ×2 (09:01→13:03)
[2022-06-30] MEDS: Cholecalciferol (VIT D3) 25 MCG TABLET (1,000 UNITS) 50 MCG PO (09:02)
[2022-06-30] MEDS: Potassium Chloride Oral Soln 20 MEQ/15 ML UDC 40 MEQ PO (09:02)
[2022-06-30] MEDS: Spironolactone 25 MG Tablet PO (09:02)
[2022-06-30] MEDS: Heparin Injection (Vial) 5,000 UNIT/ML VIAL 5000 UNIT SC (09:02)
[2022-06-30] MEDS: Vitamin E 400 UNITS Capsule PO (09:02)
[2022-06-30] MEDS: Ascorbic Acid 500 MG Tablet PO (09:03)
[2022-06-30] MEDS: Pantoprazole Sodium 40 MG Tablet PO (09:03)
[2022-06-30] MEDS: Magnesium Chloride 64 MG Delay Rel.Tablet 128 MG PO (09:03)
[2022-06-30 10:31] VITALS: O2SAT 98
--- NOTE | 2022-06-30 10:32 | DCINST_ITS ---
Discharge Instructions Procedure Breast Surgery Diet Discharge Diet: No restrictions Activity Discharge Activity: May Not Drive (while taking narcotic pain meds.) May shower in (days): 1 Lifting Restrictions: 10 pounds for 2 weeks on the left Dressing / Incision Call your doctor if your incision/area has: Continuous Slow Oozing, Sudden Increased Bleeding, Increased Pain/ Swelling and Increased Redness Call your doctor if you observe: Fever of 101 or Higher Suture Line Care: Avoid Pulling/Pushing Change Dressing in: 2 days Additional Dressing/Incision Instructions:: ok to remove CHADWICK Wrap for redressing but replace CHADWICK wrap after. Okay to use an ABD pad or small towel placed over the incision to help create compression as well as comfort with the Chadwick wrap. Empty BERTO when half full and as needed. Follow Up Care Please Follow Up With: Samantha Osorio MD When: We will plan to stop by rehab the week of the and see how the drain is doing. Any questions please call the surgery office [phone] Test Results: Test results from this visit will be discussed in further detail at your follow- up appointment, if applicable. Discharge Plan Admission Admit Date/Time: 06/27/22 20:32 Attending Provider: Samantha Osorio Primary Care Provider: Jam Verde Discharge Orders/Prescriptions Prescriptions: Continued lidocaine-prilocaine 2.5-2.5 % cream 1 applic topical ONCE PRN (Reason: port access) 30 Days Qty: 30 2RF ondansetron 8 mg tablet,disintegrating 8 mg PO Q8H PRN (Reason: nausea and vomiting) Qty: 30 2RF loperamide 2 mg Capsule 4 mg PO Q4H PRN PRN (Reason: Diarrhea) Qty: 30 0RF acetaminophen 650 mg/20.3 mL Solution 1,000 mg PO Q8H PRN (Reason: Pain 1-10 Or Fever) Qty: 0 0RF sodium chloride 0.9 % (flush) [Normal Saline Flush] Syringe 10 - 40 ml IV UD PRN (Reason: IV flush) potassium chloride 20 mEq/15 mL Liquid 40 meq PO BIDCM Qty: 1 0RF pantoprazole 20 mg Tablet,Delayed Release (Dr/Ec) 40 mg PO BID Qty: 1 0RF cholecalciferol (vitamin D3) 25 mcg (1,000 unit) Tablet 50 mcg PO DAILY Qty: 1 0RF ascorbic acid (vitamin C) 500 mg Tablet 500 mg PO BIDCM Qty: 1 0RF mirtazapine 15 mg Tablet 22.5 mg PO QHS Qty: 1 0RF sodium chloride 0.9 % (flush) [BD PosiFlush Normal Saline 0.9] Syringe 10 - 40 ml IV UD PRN (Reason: Saline Flush) Qty: 0 0RF cholestyramine (with sugar) 4 gram Powder In Packet 4 g PO TIDAC Qty: 1 0RF heparin, porcine (PF) 10 unit/mL Syringe 50 units IV UD Qty: 0 0RF Mag 64 64 mg Tablet,Delayed Release (Dr/Ec) 128 mg PO BID Qty: 1 0RF spironolactone 25 mg Tablet 25 mg PO BID Qty: 1 0RF zinc sulfate 50 mg zinc (220 mg) Capsule 220 mg PO DAILY Qty: 1 0RF vitamin E (dl, acetate) 180 mg (400 unit) Capsule 400 units PO DAILYCM Qty: 1 0RF Pivot 1.5 Herbie 0.09 gram- 1.5 kcal/mL Liquid 60 ml G-tube CLARIFY Qty: 1 0RF Rx Instructions: 40 cc/hr with 60 cc water flush q6H Referrals / Follow Up: Jam Verde MD [Primary Care Provider] - Disposition Disposition (needs filled in before D/C Order can be placed): Inpatient Rehab Unit/Facility
--- NOTE | 2022-06-30 10:38 | DS.PCM_ITS ---
Providers Date of Admission: 06/27/22 Date of Discharge: 06/30/22 Primary Care Physician: Dr. 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 Incision healing well with Steri-Strips, JPs serosanguineous x2 PT OT ordered. Patient plan to go back to rehab once pre-CERT is completed pre- CERT. Continue pain control. Heparin SQ Samantha Osorio M.D. Pager: [phone] [facility] [address] [place] [address], [address] [place] [address] Office: [phone] Medications at Discharge Home Medications lidocaine-prilocaine 2.5 %-2.5 % topical cream 1 applic topical ONCE PRN port access 30 days #30 grams 02/23/22 ondansetron 8 mg disintegrating tablet 8 mg PO Q8H PRN nausea and vomiting #30 tabs 04/18/22 acetaminophen 650 mg/20.3 mL oral solution 1,000 mg (31.2308 mL) PO Q8H PRN Pain 1-10 Or Fever #0 mL 05/28/22 loperamide 2 mg capsule 4 mg PO Q4H PRN PRN Diarrhea #30 caps 05/28/22 sodium chloride 0.9 % (flush) (Normal Saline Flush 0.9 % injection syringe) 10 - 40 ml IV UD PRN IV flush 05/28/22 ascorbic acid (vitamin C) 500 mg tablet 500 mg PO BIDCM #1 TAB 06/27/22 cholecalciferol (vitamin D3) 25 mcg (1,000 unit) tablet 50 mcg PO DAILY #1 TAB 06/27/22 cholestyramine (with sugar) 4 gram powder for susp in a packet 4 g PO TIDAC #1 ea 06/27/22 heparin, porcine (PF) 10 unit/mL intravenous syringe 50 units (5 mL) IV UD #0 mL 06/27/22 magnesium chloride 64 mg (magnesium chloride) tablet,delayed release (Mag 64) 128 mg PO BID #1 TAB 06/27/22 mirtazapine 15 mg tablet 22.5 mg PO QHS #1 TAB 06/27/22 pantoprazole 20 mg tablet,delayed release 40 mg PO BID #1 TAB 06/27/22 potassium chloride 20 mEq/15 mL oral liquid 40 meq (30 mL) PO BIDCM #1 mL 06/27/22 sodium chloride 0.9 % (flush) (BD PosiFlush Normal Saline 0.9 % injection syringe) 10 - 40 ml IV UD PRN Saline Flush #0 mL 06/27/22 spironolactone 25 mg tablet 25 mg PO BID #1 TAB 06/27/22 vitamin E (dl, acetate) 180 mg (400 unit) capsule 400 units PO DAILYCM #1 cap 06/27/22 zinc sulfate 50 mg zinc (220 mg) capsule 220 mg PO DAILY #1 cap 06/27/22 nut.tx.comp. immune systm,reg 0.09 gram-1.5 kcal/mL liquid for tube feed (Pivot 1.5 Herbie) 60 ml G-tube CLARIFY #1 mL 06/30/22 Hospital Course Operations - (left mastectomy and left ALND for left breast cancer) Procedures None Summary of Care Provided Minutes Spent on Discharge: 15 Hospital Course: 41-year-old underwent left mastectomy and left axillary lymph node dissection due to left invasive ductal carcinoma ER/AK positive, HER2 positive. Patient previously had 2 cycles of neoadjuvant chemotherapy but due to complications this was stopped. Postoperatively patient did well was continued on her tube feeds as she had severe malnutrition in April and has not transitioned back to only p.o. diet yet. However patient was taking p.o. as well. Patient had minimal pain. One of the JPs were able to be removed on postop day 2 the last BERTO will stay in until less than 25 to 30 cc for couple days. Medical Records Data Medical Nutrition Assessment Dietitian: Malnutrition Criteria Met Start: 06/28/22 10:45 Freq: Status: Active Protocol: Document 06/28/22 10:45 AG (Rec: 06/28/22 10:45 AG [id number]) Nutrition Malnutrition Evidence of Malnutrition Exists Yes Malnutrition (severe): Chronic Evidenced By Suboptimal Energy Intake ( Severe),Weight Loss (Severe) Clinical Problem Chronic Disease or Condition Related Malnutrition Etiology chronic, severe malnutrition related to inadequate oral intake w/ increased energy needs d/t cancer, wounds Signs/Symptoms as evidenced by estimated PO intake meeting <75% of estimated energy needs over past 3-4 months; unintentional wt loss of 7.8kg/16% x 5 months Status Active Problem Recommendation Dietitian Recommendations/Changes continue regular diet as tolerated; will order Adrian BID for wound healing. As discussed w/ pt, will continue continuous enteral nutrition support via PEG- Pivot 1.5 at 40mL/hour w/ 60mL H2O flush every 4 hours to provide 1440 calories, 90 g protein, and 1080mL fluid/day. Drinking fluids PO and getting IV fluids so will refrain from adjusting flushes at this time . Will monitor wt, labs as indicated. Will consider transition to previously ordered enteral nutrition ( Pivot 1.5 135mL 4x/day PRN) as PO intake/appetite improves. Weight / BMI Weight Weight: 91 lb 12.808 oz Body Mass Index (BMI) 23.8 ABG / Lab / Microbiology Data Result Diagrams: 06/28/22 05:20 06/28/22 05:20 D/C Instructions Discharge Diet: No restrictions May shower in (days): 1 Call your doctor if your incision/area has: Continuous Slow Oozing, Sudden Increased Bleeding, Increased Pain/ Swelling and Increased Redness Call your doctor if you observe: Fever of 101 or Higher Suture Line Care: Avoid Pulling/Pushing Additional Dressing/Incision Instructions: ok to remove CHADWICK Wrap for redressing but replace CHADWICK wrap after. Okay to use an ABD pad or small towel placed over the incision to help create compression as well as comfort with the Chadwick wrap. Empty BERTO when half full and as needed. Please Follow Up With: Samantha Osorio MD When: We will plan to stop by rehab the week of the and see how the drain is doing. Any questions please call the surgery office [phone] Meaningful Use Info Meaningful Use Diagnoses (Choose all that apply): None applicable Discharge Plan Admission Admit Date/Time: 06/27/22 20:32 Attending Provider: Samantha Osorio Primary Care Provider: Jam Verde Discharge Orders/Prescriptions Prescriptions: Continued lidocaine-prilocaine 2.5-2.5 % cream 1 applic topical ONCE PRN (Reason: port access) 30 Days Qty: 30 2RF ondansetron 8 mg tablet,disintegrating 8 mg PO Q8H PRN (Reason: nausea and vomiting) Qty: 30 2RF loperamide 2 mg Capsule 4 mg PO Q4H PRN PRN (Reason: Diarrhea) Qty: 30 0RF acetaminophen 650 mg/20.3 mL Solution 1,000 mg PO Q8H PRN (Reason: Pain 1-10 Or Fever) Qty: 0 0RF sodium chloride 0.9 % (flush) [Normal Saline Flush] Syringe 10 - 40 ml IV UD PRN (Reason: IV flush) potassium chloride 20 mEq/15 mL Liquid 40 meq PO BIDCM Qty: 1 0RF pantoprazole 20 mg Tablet,Delayed Release (Dr/Ec) 40 mg PO BID Qty: 1 0RF cholecalciferol (vitamin D3) 25 mcg (1,000 unit) Tablet 50 mcg PO DAILY Qty: 1 0RF ascorbic acid (vitamin C) 500 mg Tablet 500 mg PO BIDCM Qty: 1 0RF mirtazapine 15 mg Tablet 22.5 mg PO QHS Qty: 1 0RF sodium chloride 0.9 % (flush) [BD PosiFlush Normal Saline 0.9] Syringe 10 - 40 ml IV UD PRN (Reason: Saline Flush) Qty: 0 0RF cholestyramine (with sugar) 4 gram Powder In Packet 4 g PO TIDAC Qty: 1 0RF heparin, porcine (PF) 10 unit/mL Syringe 50 units IV UD Qty: 0 0RF Mag 64 64 mg Tablet,Delayed Release (Dr/Ec) 128 mg PO BID Qty: 1 0RF spironolactone 25 mg Tablet 25 mg PO BID Qty: 1 0RF zinc sulfate 50 mg zinc (220 mg) Capsule 220 mg PO DAILY Qty: 1 0RF vitamin E (dl, acetate) 180 mg (400 unit) Capsule 400 units PO DAILYCM Qty: 1 0RF Pivot 1.5 Herbie 0.09 gram- 1.5 kcal/mL Liquid 60 ml G-tube CLARIFY Qty: 1 0RF Rx Instructions: 40 cc/hr with 60 cc water flush q6H Referrals / Follow Up: Jam Verde MD [Primary Care Provider] - Disposition Disposition (needs filled in before D/C Order can be placed): Inpatient Rehab Unit/Facility
--- NOTE | 2022-06-30 11:02 | CASEMGMT ---
Social Work SW received message from Chelle in Inpatient Rehab that precert has been obtained. Pt can admit to [facility] after 2pm today. Physician updated and pt is ready for discharge. SW met with pt and updated and pt is agreeable with discharge plan. Pt denies SW calling family stating she will update them. Bedside nurse updated on discharge time. Disposition: [facility] Inpatient Rehab Unit [facility]
--- NOTE | 2022-06-30 14:04 | PHA.DC.MR ---
Pharmacy Service has performed discharge medication reconciliation for this patient. The patient's discharge medication list was reviewed for discrepancies and discrepancies were resolved. Home Medications lidocaine-prilocaine 2.5 %-2.5 % topical cream 1 applic topical ONCE PRN port access 30 days #30 grams 02/23/22 ondansetron 8 mg disintegrating tablet 8 mg PO Q8H PRN nausea and vomiting #30 tabs 04/18/22 acetaminophen 650 mg/20.3 mL oral solution 1,000 mg (31.2308 mL) PO Q8H PRN Pain 1-10 Or Fever #0 mL 05/28/22 loperamide 2 mg capsule 4 mg PO Q4H PRN PRN Diarrhea #30 caps 05/28/22 sodium chloride 0.9 % (flush) (Normal Saline Flush 0.9 % injection syringe) 10 - 40 ml IV UD PRN IV flush 05/28/22 ascorbic acid (vitamin C) 500 mg tablet 500 mg PO BIDCM #1 TAB 06/27/22 cholecalciferol (vitamin D3) 25 mcg (1,000 unit) tablet 50 mcg PO DAILY #1 TAB 06/27/22 cholestyramine (with sugar) 4 gram powder for susp in a packet 4 g PO TIDAC #1 ea 06/27/22 heparin, porcine (PF) 10 unit/mL intravenous syringe 50 units (5 mL) IV UD #0 mL 06/27/22 magnesium chloride 64 mg (magnesium chloride) tablet,delayed release (Mag 64) 128 mg PO BID #1 TAB 06/27/22 mirtazapine 15 mg tablet 22.5 mg PO QHS #1 TAB 06/27/22 pantoprazole 20 mg tablet,delayed release 40 mg PO BID #1 TAB 06/27/22 potassium chloride 20 mEq/15 mL oral liquid 40 meq (30 mL) PO BIDCM #1 mL 06/27/22 sodium chloride 0.9 % (flush) (BD PosiFlush Normal Saline 0.9 % injection syringe) 10 - 40 ml IV UD PRN Saline Flush #0 mL 06/27/22 spironolactone 25 mg tablet 25 mg PO BID #1 TAB 06/27/22 vitamin E (dl, acetate) 180 mg (400 unit) capsule 400 units PO DAILYCM #1 cap 06/27/22 zinc sulfate 50 mg zinc (220 mg) capsule 220 mg PO DAILY #1 cap 06/27/22 nut.tx.comp. immune systm,reg 0.09 gram-1.5 kcal/mL liquid for tube feed (Pivot 1.5 Herbie) 60 ml G-tube CLARIFY #1 mL 06/30/22
[2022-06-30 14:22] VITALS: BP 113/71; PULSE 103; RESP 18; TEMP 36.8; O2SAT 98
--- NOTE | 2022-06-30 14:50 | NURSING ---
Report called to Rehab. Patients belonging sent.
== END 2022-06-30 15:14 | DRG 579 ==
LOC: SDC 17:08 → MS3 17:08
PROVIDERS: Admitting Provider Surgery; PCP Family Medicine; Referring Provider Surgery; Visit Provider Surgery
PROC: 07T60ZZ Resection of Left Axillary Lymphatic, Open Approach (ICD-10-PCS; CPT 19307; principal; 2022-06-27 12:20)
DX: C50.912 Malignant neoplasm of unspecified site of left female breast (principal); E43 Unspecified severe protein-calorie malnutrition; C77.3 Secondary and unspecified malignant neoplasm of axilla and upper limb lymph nodes; Z93.1 Gastrostomy status; Z92.21 Personal history of antineoplastic chemotherapy; Z80.3 Family history of malignant neoplasm of breast; Z79.01 Long term (current) use of anticoagulants; Z90.12 Acquired absence of left breast and nipple; R53.81 Other malaise; Z17.0 Estrogen receptor positive status [ER+]; Z68.23 Body mass index [BMI] 23.0-23.9, adult
CPT/HCPCS: 80048; 83735; 84100; 85025; 88307; 88309; 88341; 88342; 94668; 97110; 97162; 97166; 97530; 97535; 97802; 99252; J7120; A4216; G0463; J2405

== ENCOUNTER 2022-06-30 15:44 | Inpatient (IN) | payer OTHER, SELFPAY ==
[2022-06-30 16:00] VITALS: BP 101/67; PULSE 96; RESP 15; TEMP 36.3; O2SAT 98; BMI 23.4
[2022-06-30 18:32] VITALS: O2SAT 97
[2022-06-30] MEDS: Potassium Chloride Oral Soln 20 MEQ/15 ML UDC 40 MEQ PO (19:00)
[2022-06-30] MEDS: Acetaminophen 650 MG/20 ML UDC 1000 MG PO (19:00)
[2022-06-30] MEDS: Ascorbic Acid 500 MG Tablet PO (19:01)
[2022-06-30] MEDS: Ondansetron ODT 4 MG Tablet 8 MG PO (22:27)
[2022-06-30 22:30] VITALS: BP 98/58; PULSE 102; RESP 18; TEMP 36.9; O2SAT 100
[2022-06-30] MEDS: Pantoprazole Sodium 40 MG Tablet PO (22:30)
[2022-07-01] MEDS: Spironolactone 25 MG Tablet PO ×3 (00:31→21:57)
[2022-07-01] MEDS: Pivot 1.5 Cal 1,000 ML 35 ML GT ×2 (00:31→22:03)
[2022-07-01] MEDS: Mirtazapine 15 MG Tablet 22.5 MG PO ×2 (00:32→21:56)
[2022-07-01] MEDS: Magnesium Chloride 64 MG Delay Rel.Tablet 128 MG PO ×3 (00:32→21:57)
[2022-07-01] MEDS: 0.9% Saline Lock 10 ML Syringe IV ×2 (06:24→15:20)
[2022-07-01] MEDS: Cholestyramine/Sucrose 4 GM/PACKET 8 GM PO (06:37)
[2022-07-01 07:04] LABS: Absolute Lymphocyte Count 1.42 X10^3/uL (0.83-4.51); Absolute Neutrophil Count 8.8 X10^3/uL (2.0-7.7); Basophil# 0.08 X10^3/uL; Basophil% 0.7 % (0-1); Eosinophil# 0.36 X10^3/uL; Eosinophils% 3.1 % (0-5); Hematocrit 33.9 % (37-47); Lymphocyte # 1.42 X10^3/ul (0.83-4.51); Lymphocyte % 12.3 % (19-41); Mean Corp Hgb Conc 32.4 g/dL (32-36); Mean Corpuscular Hgb 30.8 pg (27.0-32.0); Mean Platelet Vol. 8.7 fl (6.2-12.0); Monocyte# 0.87 X10^3/uL; Monocyte% 7.6 % (0-10); NRBC Flagged by Analyzer 0 % (0-5); Neutrophil # 8.75 X10^3/uL (2.7-7.7); Platelet Count 498 K/mm3 (150-450); RBC Distribution Width CV 15.7 % (11.6-14.6); RBC Distribution Width SD 55.3 fl (35.1-43.9); Red Blood Count 3.57 M/mm3 (4.2-5.4); White Blood Count 11.5 K/mm3 (4.4-11.0)
[2022-07-01 07:25] LABS: ALB/GLOB Ratio 0.8 RATIO (0.9-2.4); AST(SGOT) 35 U/L (15-37); Alanine Aminotransfer ALT/SGPT 49 U/L (13-56); Albumin, Serum 3.2 g/dL (3.2-5.0); Alkaline Phosphatase 141 U/L (45-117); Anion Gap 10 (5-15); BUN 42 mg/dL (7-18); BUN/Creat Ratio 84.8 RATIO (10-20); Chloride 104 mmol/L (98-107); EST Glomerular Filtration Rate 144 mL/min (>60); Est Glom Filt Rate - Afr Amer 175 mL/min (>60); Estimated Creatinine Clearance 93.56 ml/min; Globulin 4.1 g/dL (2.2-4.2); Glucose 106 mg/dL (74-106); Potassium 4.9 mmol/L (3.5-5.1); Protein, Total 7.3 g/dL (6.4-8.2); Sodium Level 135 mmol/L (136-145)
[2022-07-01 07:43] LABS: Phosphorus 5.8 mg/dL (2.5-4.9)
[2022-07-01 08:00] VITALS: O2SAT 99
[2022-07-01] MEDS: Potassium Chloride Oral Soln 20 MEQ/15 ML UDC 40 MEQ PO (08:12)
[2022-07-01] MEDS: Ascorbic Acid 500 MG Tablet PO (08:13)
[2022-07-01] MEDS: Vitamin E 400 UNITS Capsule PO (08:14)
[2022-07-01] MEDS: Pantoprazole Sodium 40 MG Tablet PO ×2 (08:16→21:57)
[2022-07-01] MEDS: Cholecalciferol (VIT D3) 25 MCG TABLET (1,000 UNITS) 50 MCG PO (08:16)
[2022-07-01 08:22] VITALS: BP 109/85; PULSE 107; RESP 16; TEMP 36.8; O2SAT 98
[2022-07-01] MEDS: Ondansetron ODT 4 MG Tablet 8 MG PO (10:57)
--- NOTE | 2022-07-01 14:01 | HP.PCM_ITS ---
[facility] - General General Date of Admission: 06/30/22 Date of Service: 07/01/22 Chief Complaint: Physical debility due to arthrogryposis muscular dystrophy, recent intra-abdominal abscess, severe malnutrition and recent left mastectomy. [facility] Narrative BERE ESPOSITO, is a 41YO F with a past medical history of arthrogryposis muscular dystrophy, left breast cancer with metastasis to axillary node, GERD, anxiety/depression, diverticulosis, recent intra-abdominal abscess more likely than not secondary to a ruptured diverticuli, nonhealing wound of the left medial calf, severe malnutrition, peptic ulcer disease, presence of PEG tube and recent left mastectomy with axillary lymph node dissection on 06/27/[address] Osorio. Due to the nonhealing wound on the right calf patient is unable to use her right leg brace to stand and ambulate. We have been using the left brace to assist with stand pivot. Her father has been in training to learn how best to assist on when she is discharged home. He is not yet comfortable with stand pivot and transfers. We have been using a harness around her hips to get her into a standing position. Additional family will need to be trained. Bere was transferred back to acute rehab following the mastectomy to continue with strengthening and family training. She will have 3 hours of therapy daily to restore function and independence at or near her level prior to 6 months ago. She was unable to eat while on chemo and lost a large amount of weight and strength. Nutrition is improving and the R leg wound is healing even though her weight has not increased. Afebrile VSS-blood pressure is stable but the pulse rate is elevated and is in the low 100s. Maintaining appropriate oxygen saturation on RA Oral intake is hit and miss. She is in negative fluid balance since arriving on rehab. Discussed with nursing - no problems that need addressed Reviewed the PT/OT notes Medication list reviewed. All lab from today was personally reviewed. Hemoglobin is 11 today, up from 8.2 on 06/28/2022 due to dehydration. Platelet count is 498,000. White blood cell count is mildly increased at 11.5 but is down from 13 on 06/28/2022. There are 76% neutrophils. Sodium is mildly decreased at 135 and the potassium is 4.9. The BUN is now 42 with a creatinine of 0.5. Phosphorus is mildly increased to 5.8. Magnesium is stable at 2. Alkaline phosphatase is mildly increased at 148 but the other LFTs are within normal limits. Path report from the axillary node dissection is pending. [facility] Medical History (Updated 07/03/22 @ 10:[address] Anabela Disla, ) Alcohol use Anxiety Arthritis Arthrogryposis Braces as ambulation aid CINV (chemotherapy-induced nausea and vomiting) CPAP (continuous positive airway pressure) dependence Dehydration Depression Diarrhea Diarrhea due to drug Elevated C-reactive protein (CRP) (12/26/21) Encounter for chemotherapy management Encounter for education Heartburn History of diverticulitis History of echocardiogram History of edema History of irregular heartbeat Hypokalemia Hypomagnesemia Localized peritonitis Lung nodule, multiple Mucositis (ulcerative) due to antineoplastic therapy Mucositis (ulcerative) due to antineoplastic therapy Nausea Non-smoker Oral candidiasis Phlegmonous peritonitis Port-A-Cath in place Sepsis without acute organ dysfunction Sleep apnea Thrombocytosis Thrombocytosis Wears glasses Home Medications lidocaine-prilocaine 2.5 %-2.5 % topical cream 1 applic topical ONCE PRN port access 30 days #30 grams 02/23/22 [Rx Last Taken Unknown] ondansetron 8 mg disintegrating tablet 8 mg PO Q8H PRN nausea and vomiting #30 tabs 04/18/22 [Rx Last Taken Unknown] acetaminophen 650 mg/20.3 mL oral solution 1,000 mg (31.2308 mL) PO Q8H PRN Pain 1-10 Or Fever #0 mL 05/28/22 [Rx Last Taken Unknown] loperamide 2 mg capsule 4 mg PO Q4H PRN PRN Diarrhea #30 caps 05/28/22 [Rx Last Taken Unknown] ascorbic acid (vitamin C) 500 mg tablet 500 mg PO BIDCM supplement 06/30/22 [History Last Taken 06/30/22 09:00] cholecalciferol (vitamin D3) 25 mcg (1,000 unit) tablet 50 mcg PO DAILY supplement 06/30/22 [History Last Taken 06/30/22 09:00] cholestyramine (with sugar) 4 gram powder for susp in a packet 8 g PO TIDAC Check with primary doctor 06/30/22 [History Last Taken 06/30/22 12:00] heparin, porcine (PF) 10 unit/mL intravenous syringe 50 units IV UD Check with primary doctor 06/30/22 [History Last Taken Unknown] magnesium chloride 64 mg (magnesium chloride) tablet,delayed release (Mag 64) 128 mg PO BID supplement 06/30/22 [History Last Taken 06/30/22 09:00] mirtazapine 15 mg tablet 22.5 mg PO QHS Check with primary doctor 06/30/22 [History Last Taken Unknown] nut.tx.comp. immune systm,reg 0.09 gram-1.5 kcal/mL liquid for tube feed (Pivot 1.5 Ginny) 35 ml G-tube QHS nutrition supplement 06/30/22 [History Last Taken Un known] pantoprazole 20 mg tablet,delayed release 40 mg PO BID Check with primary doctor 06/30/22 [History Last Taken Unknown] potassium chloride 20 mEq/15 mL oral liquid 40 meq PO BIDCM supplment 06/30/22 [History Last Taken 06/30/22 09:00] spironolactone 25 mg tablet 25 mg PO BID Check with primary doctor 06/30/22 [History Last Taken Unknown] vitamin E (dl, acetate) 180 mg (400 unit) capsule 400 units PO DAILYCM supplement 06/30/22 [History Last Taken 06/30/22 09:00] zinc sulfate 50 mg zinc (220 mg) capsule 220 mg PO DAILY supplement 06/30/22 [History Last Taken 06/30/22 09:00] Allergy/AdvReac Type Severity Reaction Status Date / Time kiwi Allergy Mild Anaphylaxis Verified 06/27/22 12:01 Penicillins Allergy Mild Anaphylaxis Verified 06/27/22 12:01 Gadolinium-MRI Contrast AdvReac Shortness Verified 06/27/22 12:01 Medium of breath [contrast dye] Family History Mother Diabetes Hypertension High cholesterol Thyroid disorder Uncle Cancer non-hodgkins lymphoma Grandfather Heart disease Grandmother Heart disease Brother Hypertension Unknown Breast cancer mother had 2 cousins with aggressive breast cancer Unknown Thyroid cancer maternal cousin Other Arthritis Depression Surgical History H/O release of tendon History of lymph node biopsy History of lymph node dissection of axilla History of spinal fusion S/P left mastectomy Social History household members: family current occupational status: employed current occupation: [employer] Smoking Status: Never smoker alcohol intake: current alcohol intake frequency: holidays/special occasions only details: occasional substance use type: does not use ROS Constitutional Constitutional: Denies chills, fever(s) or night sweats Eyes Eyes: Denies blurry vision, change in vision, eye pain or loss of vision ENT HEENT: Denies abnormal hearing, dysphagia, headache(s), hearing loss, nasal congestion or sore throat Cardiovascular Cardiovascular: Denies chest pain, dyspnea on exertion, edema, lightheadedness, orthopnea, palpitations, paroxysmal nocturnal dyspnea or syncope Respiratory/Chest Respiratory/Chest: Denies cough, dyspnea, shortness of breath at rest, shortness of breath with exertion or wheezing Gastrointestinal Gastrointestinal: Denies abdominal pain, constipation, dyspepsia, hematemesis, hematochezia or vomiting Genitourinary Genitourinary: Reports nocturia; Denies dysuria, hematuria, urinary frequency, urinary hesitancy, urinary incontinence or urinary urgency Musculoskeletal Musculoskeletal: Denies back pain, joint pain, joint swelling or neck pain Neurologic Neurologic: Denies confusion, disequilibrium, dizziness, focal weakness, headache(s), paresthesias, seizures or tremor(s) Psychiatric Psychiatric: Reports anxiety; Denies depression, homicidal ideation or suicidal ideation Endocrine Endocrinology: Denies change in body appearance or polydipsia Hematologic/Lymphatic Hematologic/Lymphatic: Denies easy bleeding, easy bruising or lymphadenopathy Allergic/Immunologic Allergic/Immunologic: Denies rhinitis, eczemia or asthma Vital Signs Vital Signs Vital Signs: 06/30/22 16:00 06/30/22 18:32 06/30/22 22:30 Temperature 97.4 F L 98.5 F Temperature Source Temporal Temporal Pulse Rate 96 102 H Respiratory Rate 15 18 Blood Pressure 101/67 98/58 L Blood Pressure Mean 78 71 Blood Pressure Source Monitor Monitor Blood Pressure Position Semi-Fowlers Semi-Fowlers Blood Pressure Location Right Arm Pulse Ox 98 97 100 Oxygen Delivery Method Room Air Room Air Room Air 07/01/22 08:22 07/01/22 08:00 Temperature 98.3 F Temperature Source Oral Pulse Rate 107 H Respiratory Rate 16 Blood Pressure 109/85 H Blood Pressure Mean 93 Blood Pressure Source Monitor Blood Pressure Position Semi-Fowlers Blood Pressure Location Right Arm Pulse Ox 98 99 Oxygen Delivery Method Room Air Room Air Weight Weight: 92 lb 9.506 oz Body Mass Index (BMI) 23.4 Physical Exam Const alert and oriented x3 Constitutional Narrative: She is feeling nauseated and did not eat lunch. Had dry heaves while in therapy. Also not drinking fluids. Pleasant and upbeat. General Appearance: cooperative HEENT normocephalic, head/scalp atraumatic, hearing grossly normal bilaterally and oropharynx normal HEENT Narrative: Mucous membranes are very dry. Eyes PERRL, EOMs intact bilaterally, conjunctivae normal and no scleral icterus General Eye: normal appearance of both eyes Neck full ROM, No nuchal rigidity, supple, No nodes and no carotid bruits Chest Chest Narrative: Chest is bandaged. she still has one drain and there is scant pale red thin drainage. Resp clear to auscultation bilaterally Effort and Inspection: able to speak in complete sentences and symmetric chest movement Cardio regular rhythm, S1 normal heart sound, S2 normal heart sound, no murmurs, no rub and no gallops Cardio Narrative: tachycardic GI normal to inspection, nondistended, normoactive bowel sounds, soft to palpation and non-tender GI Narrative: Guarding with palpation Extremity no calf tenderness and no pedal edema Skin General Skin Exam: no breakdown Wound Narrative: The wound on the right medial calf continues to heal. It is shrinking inside and the base is 100% beefy red granulation tissue with no slough. There is no periwound erythema and no odor. The wound appears somewhat dry today and the patient tells me that they did not change the dressing yesterday while she was on the acute side of the hospital and had been doing it only once a day. Neuro oriented x3, CN's II-XII intact bilaterally and moves all extremities Sensorium / Orientation: awake and alert; Negative for confused Psych mental status grossly normal, thought process normal, cooperative, affect normal, speech normal, activity/motor behavior normal, denies homicidal ideation and denies suicidal ideation Results Medical Records Data Medical Nutrition Assessment Dietitian: Malnutrition Criteria Met Start: 07/01/22 13:13 Freq: Status: Active Protocol: Document 07/01/22 13:13 BERNIE (Rec: 07/01/22 13:15 [facility] [id number]) Nutrition Malnutrition Evidence of Malnutrition Exists Yes Malnutrition (severe): Chronic Evidenced By Suboptimal Energy Intake ( Severe),Weight Loss (Severe) Intake Problem Increased Nutrient Needs (specify) Etiology protein r/t recent surgery Signs/Symptoms as evidenced by L masectomy and R leg wound stasis ulcer Status Active Problem Clinical Problem Chronic Disease or Condition Related Malnutrition Etiology Severe protein-calorie malnutrition in the context of chronic disease related to inadequate oral intake Signs/Symptoms as evidenced by ~24.1% unintentional wt loss x 1 month and oral intake meeting less than 50% estimated nutrition needs Status Active Problem Recommendation Dietitian Recommendations/Changes -Regular diet -Rec Pivot 1.5 ginny at 35 ml/hr via PEG from 9263-2884 w/ 60 ml water flush every 4 hours to provide 420 ginny/ 26 gm pro/ 570 ml free water/day -Rec Pivot 1.5 ginny bolus feed 135 ml w/ 15 ml before and after each bolus feed if intake <50% to provide 607 ginny / 38 gm pro/ 393 ml free water /day if all boluses given. -Continue premier protein drinks from home as tolerated; dislikes ensure. -Adrian BID for wound healing. -Daily weights Lab / Micro Data Result Diagrams: 07/03/22 06:20 07/03/22 06:20 Labs: Laboratory Results - last 24 hr 07/01/22 06:25: WBC 11.5 H, RBC 3.57 L, Hgb 11.0 L, Hct 33.9 L, MCV 95.0, MCH 30.8, MCHC 32.4, RDW Std Deviation 55.3 H, RDW Coeff of Seema 15.7 H, Plt Count 498 H, MPV 8.7, Immature Gran % (Auto) 0.300, Neut % (Auto) 76.0 H, Lymph % (Auto) 12.3 L, [place] % (Auto) 7.6, Eos % (Auto) 3.1, Baso % (Auto) 0.7, Absolute Neuts (auto) 8.8 H, Absolute Lymphs (auto) 1.42, Nucleated RBC % 0 07/01/22 06:25: Sodium 135 L, Potassium 4.9, Chloride 104, Carbon Dioxide 21.0, Anion Gap 10, BUN 42 H, Creatinine 0.50 L, Estim Creat Clear Calc 93.56, Est GFR (MDRD) Af Amer 175, Est GFR (MDRD) Non-Af 144, BUN/Creatinine Ratio 84.8 H, Glucose 106, Calcium 10.0, Magnesium 2.0, Total Bilirubin 0.30, AST 35, ALT 49, Alkaline Phosphatase 141 H, Total Protein 7.3, Albumin 3.2, Globulin 4.1, Albumin/Globulin Ratio 0.8 L 07/01/22 06:25: Phosphorus 5.8 H Assessment & Plan Assessment/Plan (1) Debility: (2) S/P left mastectomy: (3) History of lymph node dissection of axilla: (4) Hyponatremia: (5) Severe malnutrition: (6) Sinus tachycardia: (7) Thrombocytosis: (8) Bartters syndrome: (9) Duodenal ulcer disease: (10) PEG (percutaneous endoscopic gastrostomy) status: (11) Acute on chronic anemia: (12) Vitamin D deficiency: (13) Muscular dystrophy: (14) Ulcer of right lower extremity with fat layer exposed: PLAN: Plan 1. Decrease the potassium from 80 mEq daily to 60 mEq daily. 2. Calcium is mildly increased and will check a vitamin D level to make sure she does not have vitamin D intoxication. 3. Hydrate with IV normal saline and recheck a BMP in a few days. 4. Continue the current dose of magnesium 5. Give the Adrian per the PEG so she gets it all in 6. Discontinue oxycodone because it makes her nauseated. Start tramadol 50 mg every 6 hours as needed pain 4-6 and 100 mg pain 7 through 10. 7. I discussed her diet with the dietitian and we will increase water flushes until she is no longer nauseated and able to eat and drink normally. 8. Continue spironolactone at 25 mg twice daily. Magnesium is 2 which is where I would like to keep it. 9. She is having hot flashes since starting the Tamoxifen. Charges/Coding Visit Charges Inpatient E&M: 89200 Init Hosp L2
[2022-07-01] MEDS: Pivot 1.5 Cal 1,000 ML BOTTLE 135 ML GT ×2 (14:09→17:37)
[2022-07-01] MEDS: Lidocaine 5% 35GM Tube 1 APPLIC TOPICAL (14:47)
[2022-07-01] MEDS: 0.9% Normal Saline 1,000 ML 100 ML IV (15:12)
--- NOTE | 2022-07-01 15:21 | PCM.RU.PYE ---
Admission Information Primary Diagnosis:: Debility secondary to severe malnutrition, muscular dystrophy, and recent mastectomy. Status Changes from Prescreening?: No changes Identified Actual Problem List:: Skin Intergrity, Pain, ALteration in Cmfrt, Depression, Alteration in Sleep, Alteration in Nutrition, Mobility Impaired, Self Care Deficit, Fluid Change-Dehydration and Alteration-Leisure Activ. Potential Problem List:: DVT, Bleeding, Infection, UTI, Aspiration, Falls, Skin Integrity and Depression Risk of Complications DVT: LMWH and ЕКАТЕРИНА Hose Bleeding: Monitor Lab Values, Nursing to Teach Precautions for anti-coagulation therapy., Wound, if applicable, to be assessed every shift. and Stroke patients assessed for lethargy or change in status. Infection: Clinical Staff to Monitor for S/S of infection: and S/S of infection include fever, redness, warmth, etc. Urinary Tract Infection: Monitor for frequency, burning, discomfort, or incontinence. and Nursing will obtain urine sample for urinalysis and C&S when ordered. Aspiration: Clinical staff will monitor for coughing, drooling, congestion., Speech will evaluate swallowing and dsyphasia. and Nursing will monitor patient swallowing during meals. Falls: Patient will be evaluated for Fall Precautions and Patient will be placed on Fall Precautions as indicated per protocol. Skin Breakdown: Nursing will assess skin daily using assessment tool. and Nursing will place on Skin Breakdown Precautions as indicated. Pain: Clinical staff will assess patient's pain level per protocol., Medications will be given, if needed, and the pain level reassessed. and Other methods: Massage, distraction, decrease stimulus, etc. used PRN. Plan of Care Patient requires physician specializing in physical medicine and rehab oversight to provide close medical supervision of rehab issues including: Pain Management, Sleep Problems, Bowel and Bladder, Medical and co-morbidity Management, DVT prophylaxis, Rehabilitation Leadership and Coordination of treatment team Patient needs Physical Therapy: For a minimum of 1 hour and At least 5 out of 7 days Patient needs Physical Therapy to improve:: Mobility, Strengthening, Transfers, Stretching, ROM, Endurance, Stairs, Gait and Balance Patient needs Occupational Therapy: For a minimum of 1 hour and At least 5 out of 7 days Patient needs Occupational Therapy to improve ADL's incl.: Eating, Grooming, Bathing, Dressing, Toileting, Toilet transfers, Community Reintegration, Higher functioning activities, Household tasks, Adaptive Equipment, Splinting and Other activities as determined Patient requires 24/7 Rehabilitation Nursing for: Pain Issues, Identifying and preventing risk factors, Monitoring and reporting current medical conditions, Assisting with ambulation, transfer, and all ADL's, Teaching patients about disease process and medications, Family teaching, Providing safe environment, Bowel and Bladder Issues, Skin integrity and Medication Management Patient needs Secondary Art Teacher/ Case Management for: Discharge Planning, Arranging Home Equipment or Services and Family Interventions Patient needs Dietary and Nutrition Services for: Adequate Nutrition, Nutritional Supplements and Nutritional Education Goals Patient will remain: free from falls Patient will perform bed mobility at: MOD I level of assist. Patient will complete transfers from bed to chair at: - (Min assist) Patient will ambulate: - (NO ambulation until the wound on the RLE is healed and she is able to don the brace on the RLE.) Patient will complete upper body dressing at: - (Supervision) Patient will complete lower body dressing at: - (Minimal assistance and using adaptive equipment.) Patient will complete toileting at: - (Minimal assistance) Patient will perform bathing at: - (Minimal assistance) Patient will complete grooming at: MOD I level of assist. Patient will achieve: - (Will not be able to do stairs until the wound on the RLE is healed and she can put her brace on.) Patient will have pain level of: of 3 or less Patient's skin will: remain intact Patient will receive: adequate nutrition. Discharge Planning Estimated Length of stay (days): 28
[2022-07-01] MEDS: Potassium Chloride Oral Soln 20 MEQ/15 ML UDC 30 MEQ PO (17:37)
--- NOTE | 2022-07-01 19:03 | NURSING ---
Patient pleasant and doing well in therapy today. Patient has some nausea earlier in the shift and did some medicine changes and patient aware.
[2022-07-01 20:27] VITALS: BP 121/82; PULSE 134; RESP 14; TEMP 36.7; O2SAT 98
[2022-07-01] MEDS: Acetaminophen 650 MG/20 ML UDC 1000 MG PO (21:55)
[2022-07-02] MEDS: 0.9% Normal Saline 1,000 ML 100 ML IV ×2 (00:54→10:47)
[2022-07-02] MEDS: Cholestyramine/Sucrose 4 GM/PACKET 8 GM PO ×2 (06:08→18:34)
[2022-07-02] MEDS: Acetaminophen 650 MG/20 ML UDC 1000 MG PO ×3 (06:10→22:11)
[2022-07-02 10:04] VITALS: BP 131/71; PULSE 89; RESP 16; TEMP 36.7; O2SAT 100
[2022-07-02] MEDS: Magnesium Chloride 64 MG Delay Rel.Tablet 128 MG PO ×2 (10:11→22:11)
[2022-07-02] MEDS: Pantoprazole Sodium 40 MG Tablet PO ×2 (10:11→22:11)
[2022-07-02] MEDS: Ascorbic Acid 500 MG Tablet PO ×2 (10:11→17:43)
[2022-07-02] MEDS: Cholecalciferol (VIT D3) 25 MCG TABLET (1,000 UNITS) 50 MCG PO (10:12)
[2022-07-02] MEDS: Vitamin E 400 UNITS Capsule PO (10:12)
[2022-07-02] MEDS: Potassium Chloride Oral Soln 20 MEQ/15 ML UDC 30 MEQ PO ×2 (10:14→17:43)
[2022-07-02] MEDS: Spironolactone 25 MG Tablet PO ×2 (10:14→22:10)
[2022-07-02 19:20] VITALS: BP 98/64; PULSE 110; RESP 14; TEMP 37.1; O2SAT 100
[2022-07-02] MEDS: Mirtazapine 15 MG Tablet 22.5 MG PO (22:10)
[2022-07-02] MEDS: Pivot 1.5 Cal 1,000 ML 35 ML GT (22:11)
[2022-07-02] MEDS: traMADol 50 MG Tablet PO (22:23)
[2022-07-03] MEDS: Acetaminophen 650 MG/20 ML UDC 1000 MG PO ×3 (06:04→22:08)
[2022-07-03] MEDS: 0.9% Saline Lock 10 ML Syringe IV ×2 (06:05→17:36)
[2022-07-03 06:26] VITALS: O2SAT 100
[2022-07-03 06:36] LABS: Hematocrit 30.3 % (37-47); Hemoglobin 9.4 g/dL (12.0-15.0)
[2022-07-03 07:18] LABS: Anion Gap 5 (5-15); BUN 21 mg/dL (7-18); Calcium,Total 9.1 mg/dL (8.5-10.1); Chloride 114 mmol/L (98-107); Creatinine, Serum 0.38 mg/dL (0.55-1.02); EST Glomerular Filtration Rate 195 mL/min (>60); Est Glom Filt Rate - Afr Amer 236 mL/min (>60); Estimated Creatinine Clearance 127.47 ml/min; Glucose 125 mg/dL (74-106); Magnesium 1.6 mg/dL (1.6-2.6); Potassium 4.9 mmol/L (3.5-5.1); Sodium Level 137 mmol/L (136-145)
[2022-07-03 07:40] VITALS: BP 114/62; PULSE 82; RESP 16; TEMP 36.9; O2SAT 97
[2022-07-03 08:38] LABS: Vitamin D,25 Hydroxy 43.1 ng/mL
[2022-07-03] MEDS: Cholestyramine/Sucrose 4 GM/PACKET 8 GM PO ×2 (08:38→15:16)
[2022-07-03] MEDS: Potassium Chloride Oral Soln 20 MEQ/15 ML UDC 30 MEQ PO ×2 (08:38→18:17)
--- NOTE | 2022-07-03 09:41 | PN_ITS ---
Subjective Subjective Afebrile VSS-pulse is 82 today which is much better following hydration. Blood pressure is within normal limits. Maintaining appropriate oxygen saturation on RA Oral intake is being supplemented by tube feed. Her weight today is 93.3 pounds which is finally on the upswing. Fluid balance for 07/02/2022 was +2593. Oral intake yesterday was good at 1560. Discussed with nursing - no problems that need addressed Reviewed the PT/OT/ST notes Medication list reviewed. All lab was personally reviewed. Hemoglobin is 9.4 which is stable. It was 11 on 07/01/2022 however she was very dehydrated at that time. Sodium is now normal at 137 since hydration. Serum bicarb is decreased at 18 and the chloride is up at 114. The BUN is down to 21 from 42 04/30/2023 and the creatinine is back at baseline which is 0.38. Magnesium is 1.6 today. Vitamin D is within normal limits at 43.1. Calcium came down to 9.1 with hydration. Potassium is 4.9. Appetite is starting to pick back up and she has no c/o bloating. Objective Data Objective Data Vital Signs: Vital Signs Temp Pulse Resp BP Pulse Ox O2 Del Method 98.4 F 82 16 114/62 97 Room Air 07/03/22 07:40 07/03/22 07:40 07/03/22 07:40 07/03/22 07:40 07/03/22 07:40 07/03/22 07:40 Oxygen Delivery Method Room Air Weight: 93 lb 4.089 oz Body Mass Index (BMI) 23.4 Intake & Output: Intake and Output for Last 24 Hours 07/01/22 07/02/22 07/03/22 23:59 23:59 23:59 Intake Total 1658 / 1658 4638.33 / 4638.33 120 / 120 Output Total 1635 / 1635 2045 / 2345 600 / 600 Balance 2593.33 / 2293.33 -480 / -480 Medical Nutrition Assessment Dietitian: Malnutrition Criteria Met Start: 07/01/22 13:13 Freq: Status: Active Protocol: Document 07/01/22 13:13 BERNIE (Rec: 07/01/22 13:15 BERNIE [id number]) Nutrition Malnutrition Evidence of Malnutrition Exists Yes Malnutrition (severe): Chronic Evidenced By Suboptimal Energy Intake ( Severe),Weight Loss (Severe) Intake Problem Increased Nutrient Needs (specify) Etiology protein r/t recent surgery Signs/Symptoms as evidenced by L masectomy and R leg wound stasis ulcer Status Active Problem Clinical Problem Chronic Disease or Condition Related Malnutrition Etiology Severe protein-calorie malnutrition in the context of chronic disease related to inadequate oral intake Signs/Symptoms as evidenced by ~24.1% unintentional wt loss x 1 month and oral intake meeting less than 50% estimated nutrition needs Status Active Problem Recommendation Dietitian Recommendations/Changes -Regular diet -Rec Pivot 1.5 ginny at 35 ml/hr via PEG from 9949-6561 w/ 60 ml water flush every 4 hours to provide 420 ginny/ 26 gm pro/ 570 ml free water/day -Rec Pivot 1.5 ginny bolus feed 135 ml w/ 15 ml before and after each bolus feed if intake <50% to provide 607 ginny / 38 gm pro/ 393 ml free water /day if all boluses given. -Continue premier protein drinks from home as tolerated; dislikes ensure. -Adrian BID for wound healing. -Daily weights Lab / Micro Data Result Diagrams: 07/03/22 06:20 07/03/22 06:20 Labs: Laboratory Results - last 24 hr 07/03/22 06:20: Hgb 9.4 L, Hct 30.3 L 07/03/22 06:20: Sodium 137, Potassium 4.9, Chloride 114 H, Carbon Dioxide 18.0 L , Anion Gap 5, BUN 21 H, Creatinine 0.38 L, Estim Creat Clear Calc 127.47, Est GFR (MDRD) Af Amer 236, Est GFR (MDRD) Non-Af 195, BUN/Creatinine Ratio 55.0 H, Glucose 125 H, Calcium 9.1, Magnesium 1.6 07/03/22 06:20: Vitamin D 25-Hydroxy 43.1 Physical Exam Const alert General Appearance: cooperative Chest Chest Narrative: Chest is bandaged. she still has one drain and there is scant pale red thin drainage. Resp clear to auscultation bilaterally Effort and Inspection: able to speak in complete sentences and symmetric chest movement Cardio regular rhythm, no murmurs and no gallops GI normal to inspection, nondistended, normoactive bowel sounds, soft to palpation and non-tender GI Narrative: Guarding with palpation. PEG site looks healthy with no mickey-erythema and no discharge. Inspection: Negative for abdominal distention Extremity no calf tenderness and no pedal edema Skin General Skin Exam: no breakdown Rashes: no rashes Wound Narrative: The mastectomy incision is intact with no erythema and no discharge. There is a small amount of swelling in the left axilla and the left upper chest above the Chadwick bandage and this is nontender to light palpation. Small amount of drainage in the drain. It is thin serosanguineous. Assessment & Plan Assessment/Plan (1) Debility: (2) S/P left mastectomy: (3) History of lymph node dissection of axilla: (4) Severe malnutrition: (5) Bartters syndrome: (6) Duodenal ulcer disease: (7) PEG (percutaneous endoscopic gastrostomy) status: (8) Acute on chronic anemia: (9) Muscular dystrophy: (10) Ulcer of right lower extremity with fat layer exposed: PLAN: Plan 1. Continue therapy 2. Continue family training 3. Urged her to increase her fluid intake and reiterated that she has to have at least 2500 cc of fluid intake daily. 4. Recheck lab Sunday Charges/Coding Visit Charges Inpatient E&M: 25890 Subs Hosp L2
[2022-07-03] MEDS: Spironolactone 25 MG Tablet PO ×2 (10:14→22:20)
[2022-07-03] MEDS: Magnesium Chloride 64 MG Delay Rel.Tablet 128 MG PO ×2 (10:14→22:20)
[2022-07-03] MEDS: Vitamin E 400 UNITS Capsule PO (10:14)
[2022-07-03] MEDS: Ascorbic Acid 500 MG Tablet PO ×2 (10:14→18:17)
[2022-07-03] MEDS: Pantoprazole Sodium 40 MG Tablet PO ×2 (10:15→22:20)
[2022-07-03] MEDS: Cholecalciferol (VIT D3) 25 MCG TABLET (1,000 UNITS) 50 MCG PO (10:15)
[2022-07-03] MEDS: Enoxaparin 40 MG/0.4 ML Syringe SC (12:36)
[2022-07-03] MEDS: Pivot 1.5 Cal 1,000 ML BOTTLE 135 ML GT (12:37)
[2022-07-03] MEDS: Juven (unflavored) Packet 2 PACKET PO (18:16)
[2022-07-03] MEDS: Ondansetron ODT 4 MG Tablet 8 MG PO (18:43)
[2022-07-03 19:29] VITALS: BP 122/71; PULSE 97; RESP 17; TEMP 36.7; TEMP 37.3; O2SAT 96
[2022-07-03] MEDS: Pivot 1.5 Cal 1,000 ML 35 ML GT (22:06)
[2022-07-03] MEDS: Mirtazapine 15 MG Tablet 22.5 MG PO (22:21)
[2022-07-04] MEDS: traMADol 50 MG Tablet PO ×2 (00:16→23:23)
[2022-07-04] MEDS: Acetaminophen 650 MG/20 ML UDC 1000 MG PO ×3 (06:29→23:24)
[2022-07-04] MEDS: 0.9% Saline Lock 10 ML Syringe IV (06:41)
[2022-07-04 06:48] VITALS: O2SAT 99
[2022-07-04] MEDS: Cholestyramine/Sucrose 4 GM/PACKET 8 GM PO (06:48)
[2022-07-04] MEDS: Ondansetron ODT 4 MG Tablet 8 MG PO (08:37)
[2022-07-04 08:42] VITALS: BP 112/66; PULSE 69; RESP 16; TEMP 37.2; O2SAT 93
[2022-07-04] MEDS: Juven (unflavored) Packet 2 PACKET PO (09:30)
[2022-07-04] MEDS: Enoxaparin 40 MG/0.4 ML Syringe SC (09:31)
[2022-07-04] MEDS: Spironolactone 25 MG Tablet PO ×2 (09:31→23:22)
[2022-07-04] MEDS: Potassium Chloride Oral Soln 20 MEQ/15 ML UDC 30 MEQ PO (09:31)
[2022-07-04] MEDS: Ascorbic Acid 500 MG Tablet PO ×2 (09:31→18:10)
[2022-07-04] MEDS: Vitamin E 400 UNITS Capsule PO (09:31)
[2022-07-04] MEDS: Cholecalciferol (VIT D3) 25 MCG TABLET (1,000 UNITS) 50 MCG PO (09:32)
[2022-07-04] MEDS: Magnesium Chloride 64 MG Delay Rel.Tablet 128 MG PO ×2 (09:32→23:22)
[2022-07-04] MEDS: Pantoprazole Sodium 40 MG Tablet PO ×2 (09:32→23:22)
[2022-07-04] MEDS: Pivot 1.5 Cal 1,000 ML BOTTLE 135 ML GT ×3 (09:35→18:10)
--- NOTE | 2022-07-04 10:12 | PCM.PROGNOTE ---
Subjective Subjective Afebrile VSS-blood pressure today is 112/66 with a heart rate of 69. Maintaining appropriate oxygen saturation on RA Oral intake yesterday was 1560. Discussed with nursing -she had an emesis this morning of potassium and pivot. She received Zofran and is still complaining of nausea. Reviewed the PT/OT notes Medication list reviewed. Bere denies cephalgia, abdominal pain, chest pain, calf pain and dysuria. She is sleeping well at night. Intake is poor today but was picking up the past day or 2. She thinks that the nausea is secondary to too many things given via the PEG at one time causing her to feel bloated and reflux. Objective Data Objective Data Vital Signs: Vital Signs Temp Pulse Resp BP Pulse Ox O2 Del Method 98.9 F 69 16 112/66 93 Room Air 07/04/22 08:42 07/04/22 08:42 07/04/22 08:42 07/04/22 08:42 07/04/22 08:42 07/04/22 08:42 Oxygen Delivery Method Room Air Weight: 93 lb 4.089 oz Body Mass Index (BMI) 23.4 Intake & Output: Intake and Output for Last 24 Hours 07/02/22 07/03/22 07/04/22 23:59 23:59 23:59 Intake Total 4638.33 / 4638.33 880 / 880 320 / 320 Output Total 2045 / 2345 665 / 665 600 / 600 Balance 2593.33 / 2293.33 215 / 215 -280 / -280 Medical Nutrition Assessment Dietitian: Malnutrition Criteria Met Start: 07/01/22 13:13 Freq: Status: Active Protocol: Document 07/01/22 13:13 BERNIE (Rec: 07/01/22 13:15 BERNIE [id number]) Nutrition Malnutrition Evidence of Malnutrition Exists Yes Malnutrition (severe): Chronic Evidenced By Suboptimal Energy Intake ( Severe),Weight Loss (Severe) Intake Problem Increased Nutrient Needs (specify) Etiology protein r/t recent surgery Signs/Symptoms as evidenced by L masectomy and R leg wound stasis ulcer Status Active Problem Clinical Problem Chronic Disease or Condition Related Malnutrition Etiology Severe protein-calorie malnutrition in the context of chronic disease related to inadequate oral intake Signs/Symptoms as evidenced by ~24.1% unintentional wt loss x 1 month and oral intake meeting less than 50% estimated nutrition needs Status Active Problem Recommendation Dietitian Recommendations/Changes -Regular diet -Rec Pivot 1.5 ginny at 35 ml/hr via PEG from 1599-0951 w/ 60 ml water flush every 4 hours to provide 420 ginny/ 26 gm pro/ 570 ml free water/day -Rec Pivot 1.5 ginny bolus feed 135 ml w/ 15 ml before and after each bolus feed if intake <50% to provide 607 ginny / 38 gm pro/ 393 ml free water /day if all boluses given. -Continue premier protein drinks from home as tolerated; dislikes ensure. -Adrian BID for wound healing. -Daily weights Lab / Micro Data Result Diagrams: 07/03/22 06:20 07/03/22 06:20 Physical Exam Const alert General Appearance: cooperative Chest Chest Narrative: Chest is bandaged. she still has one drain and there is scant pale red thin drainage. Resp clear to auscultation bilaterally Cardio regular rhythm, no murmurs and no gallops GI normal to inspection, nondistended, normoactive bowel sounds, soft to palpation and non-tender GI Narrative: Guarding with palpation. PEG site looks healthy with no mickey-erythema and no discharge. Inspection: Negative for abdominal distention Extremity no calf tenderness and no pedal edema Skin General Skin Exam: no breakdown Rashes: no rashes Assessment & Plan Assessment/Plan (1) Debility: (2) S/P left mastectomy: (3) History of lymph node dissection of axilla: (4) Severe malnutrition: (5) Bartters syndrome: (6) Duodenal ulcer disease: (7) PEG (percutaneous endoscopic gastrostomy) status: (8) Acute on chronic anemia: (9) Muscular dystrophy: (10) Ulcer of right lower extremity with fat layer exposed: PLAN: Plan 1. Discontinue continuous tube feed and maintain on bolus feedings after meals if she does not eat at least 50% of her meal. Discussed with the dietitian. 2. Continue therapy 3. Continue Adrian via the PEG tube twice daily 4. Space out the Adrian, TF, flushes so she does not get bloated and reflux. 5. Phenergan relieved nausea that persisted after Zofran so will DC the Zofran and use Phenergan or Reglan PRN for nausea 6. Recheck lab on Sunday Charges/Coding Visit Charges Inpatient E&M: 76939 Subs Hosp L2
[2022-07-04] MEDS: proMETHazine 25 MG/ML Syringe 12.5 MG IM (12:08)
[2022-07-04 22:00] VITALS: BP 111/69; PULSE 115; RESP 18; TEMP 37; O2SAT 99
[2022-07-04] MEDS: Mirtazapine 15 MG Tablet 22.5 MG PO (23:21)
[2022-07-05] MEDS: Acetaminophen 650 MG/20 ML UDC 1000 MG PO ×3 (05:56→21:57)
[2022-07-05] MEDS: Loperamide 2 MG Capsule 4 MG PO (06:49)
[2022-07-05 07:26] VITALS: BP 111/78; PULSE 105; RESP 16; TEMP 36.7; O2SAT 100
[2022-07-05] MEDS: Cholecalciferol (VIT D3) 25 MCG TABLET (1,000 UNITS) 50 MCG PO (08:43)
[2022-07-05] MEDS: Pantoprazole Sodium 40 MG Tablet PO ×2 (08:43→21:53)
[2022-07-05] MEDS: Ascorbic Acid 500 MG Tablet PO ×2 (08:44→16:18)
[2022-07-05] MEDS: Spironolactone 25 MG Tablet PO ×2 (08:44→21:53)
[2022-07-05] MEDS: Magnesium Chloride 64 MG Delay Rel.Tablet 128 MG PO ×2 (08:44→21:52)
[2022-07-05] MEDS: Vitamin E 400 UNITS Capsule PO (08:44)
[2022-07-05] MEDS: Juven (unflavored) Packet 1 PACKET GT ×2 (08:45→16:19)
[2022-07-05] MEDS: Enoxaparin 40 MG/0.4 ML Syringe SC (08:45)
[2022-07-05] MEDS: Pivot 1.5 Cal 1,000 ML BOTTLE 135 ML GT ×3 (08:49→22:08)
[2022-07-05] MEDS: Potassium Chloride Oral Soln 20 MEQ/15 ML UDC 30 MEQ PO ×2 (09:03→16:21)
[2022-07-05 19:47] VITALS: BP 107/61; PULSE 118; RESP 14; TEMP 36.8; O2SAT 99
[2022-07-05 20:35] VITALS: O2SAT 99
[2022-07-05] MEDS: traMADol 50 MG Tablet PO (21:52)
[2022-07-05] MEDS: Mirtazapine 15 MG Tablet 22.5 MG PO (21:53)
[2022-07-06] MEDS: Pivot 1.5 Cal 1,000 ML BOTTLE 135 ML GT ×2 (05:58→21:40)
[2022-07-06] MEDS: Acetaminophen 650 MG/20 ML UDC 1000 MG PO ×3 (05:58→21:46)
[2022-07-06 07:37] VITALS: BP 104/64; PULSE 98; RESP 16; TEMP 36.6; O2SAT 99
[2022-07-06] MEDS: Cholestyramine/Sucrose 4 GM/PACKET 8 GM PO ×3 (08:10→17:04)
[2022-07-06] MEDS: Pantoprazole Sodium 40 MG Tablet PO ×2 (08:10→21:47)
[2022-07-06] MEDS: Ascorbic Acid 500 MG Tablet PO ×2 (08:10→17:04)
[2022-07-06] MEDS: Spironolactone 25 MG Tablet PO ×2 (08:10→21:46)
[2022-07-06] MEDS: Juven (unflavored) Packet 1 PACKET GT ×2 (08:10→17:04)
[2022-07-06] MEDS: Magnesium Chloride 64 MG Delay Rel.Tablet 128 MG PO ×2 (08:10→21:46)
[2022-07-06] MEDS: Potassium Chloride Oral Soln 20 MEQ/15 ML UDC 30 MEQ PO ×2 (08:10→17:04)
[2022-07-06] MEDS: Enoxaparin 40 MG/0.4 ML Syringe SC (08:11)
[2022-07-06] MEDS: Vitamin E 400 UNITS Capsule PO (08:11)
[2022-07-06] MEDS: Cholecalciferol (VIT D3) 25 MCG TABLET (1,000 UNITS) 50 MCG PO (08:11)
--- NOTE | 2022-07-06 13:50 | CASEMGMT ---
Social Work IDT met with patient, sister and friend for Team meeting. Discussed patient's progress in PT/OT/SN. Educated to [facility] with NRD 07/07 and continued stay is not guaranteed. Pt is managing drain on her own. Father and family are participating in therapy training. Surgeon on vacation until next week and will be the one to remove pt's drain. SW to coordinate tube feed supplies and [facility] at [place]. Will ReTeam weekly. SW to continue to follow. Deloris Lemus, CELESTE STERLINGW
[2022-07-06] MEDS: 0.9% Saline Lock 10 ML Syringe IV (14:31)
[2022-07-06] MEDS: Ondansetron ODT 4 MG Tablet 8 MG PO (17:19)
--- NOTE | 2022-07-06 18:25 | PCM.PROGNOTE ---
Subjective Subjective Nathaniel was seen on team rounds. Her friend Abrahan and her [id number] were present in the room. Afebrile VSS-heart rate yesterday was in the 100s and ranged from 105-118. This morning her heart rate was 98 with a blood pressure of 104/64. Maintaining appropriate oxygen saturation on RA Oral intake is not adequate. Oral intake of fluids on 07/04/2022 was 320 and on 07/05/2022 was 1060. Discussed with nursing - Bere told the nurses she saw a whole pill in her stool today. Reviewed the PT/OT notes Medication list reviewed. Denies nausea, vomiting, heartburn, abdominal pain, chest pain, calf pain and dysuria. She also denies lightheadedness. Objective Data Objective Data Vital Signs: Vital Signs Temp Pulse Resp BP Pulse Ox O2 Del Method 97.9 F 98 16 104/64 99 Room Air 07/06/22 07:37 07/06/22 07:37 07/06/22 07:37 07/06/22 07:37 07/06/22 07:37 07/06/22 07:37 Oxygen Delivery Method Room Air Weight: 90 lb 13.287 oz Body Mass Index (BMI) 23.4 Intake & Output: Intake and Output for Last 24 Hours 07/04/22 07/05/22 07/06/22 23:59 23:59 23:59 Intake Total 380 / 380 1930 / 1930 2045 / 2045 Output Total 1760 / 1760 716 / 716 1305 / 1305 Balance -1380 / -1380 1214 / 1214 740 / 740 Medical Nutrition Assessment Dietitian: Malnutrition Criteria Met Start: 07/01/22 13:13 Freq: Status: Active Protocol: Document 07/04/22 13:37 AG (Rec: 07/04/22 13:37 AG [id number]) Nutrition Malnutrition Evidence of Malnutrition Exists Yes Malnutrition (severe): Chronic Evidenced By Suboptimal Energy Intake ( Severe),Weight Loss (Severe) Intake Problem Increased Nutrient Needs (specify) Etiology protein r/t recent surgery Signs/Symptoms as evidenced by L masectomy and R leg wound stasis ulcer Status Active Problem Clinical Problem Chronic Disease or Condition Related Malnutrition Etiology chronic, severe malnutrition related to inadequate oral intake w/ increased energy needs d/t cancer, wounds Signs/Symptoms as evidenced by estimated as evidenced by PO intake meeting <75% of estimated energy needs over past 3-4 months; unintentional wt loss of 7.1kg /14% wt loss x ~5 months Status Active Problem Recommendation Dietitian Recommendations/Changes 1) Regular diet as tolerated 2) To encourage PO intake at meals, will adjust EN to 135mL bolus 4x/day PRN if PO intake is less than 50% of meal or if pt desires to have additional nutrition. Each bolus provides ~203 calories, 13 g protein, and 140mL fluid. 3) Continue premier protein drinks from home as tolerated; dislikes ensure. Daily breakfast smoothie as desired by pt. 4) Adrian BID for wound healing via PEG. 5) 60mL H2O flush q 6 hours; goal is 2500mL fluid intake/ day. 6) Weight daily as ordered. Lab / Micro Data Result Diagrams: 07/03/22 06:20 07/03/22 06:20 Physical Exam Const alert General Appearance: cooperative Resp clear to auscultation bilaterally Cardio regular rhythm, no murmurs and no gallops GI normal to inspection, nondistended, normoactive bowel sounds and non-tender GI Narrative: Guarding with palpation. PEG site looks healthy with no mickey-erythema and no discharge. Extremity no calf tenderness and no pedal edema Skin General Skin Exam: no breakdown Rashes: no rashes Assessment & Plan Assessment/Plan (1) Debility: (2) S/P left mastectomy: (3) History of lymph node dissection of axilla: (4) Severe malnutrition: (5) Bartters syndrome: (6) Duodenal ulcer disease: (7) PEG (percutaneous endoscopic gastrostomy) status: (8) Acute on chronic anemia: (9) Muscular dystrophy: (10) Ulcer of right lower extremity with fat layer exposed: PLAN: Plan 1. Continue therapy 2. The harness is working very well to get Bere to a standing position. Her Sister Judie does this very well but her father may need 1-2 more training sessions. 3. I again spoke to Bere and reiterated that she needs to take at least 2,500 cc of fluid daily to stay hydrated given the inability to concentrate the urine. She is relying on the PEG to provide the fluids however we pointed out that once she has adequate caloric intake the PEG will likely be removed. Her friends are always urging her to increase the fluid intake. 4. BMP, MAG and HH in the AM 5. Will try and contact Dr. Osorio to find out when the drain will be removed and if she wants us to pull it in rehab. Charges/Coding Visit Charges Inpatient E&M: 45248 Subs Hosp L2
[2022-07-06 21:45] VITALS: BP 118/70; PULSE 124; PULSE 127; RESP 14; TEMP 37; O2SAT 100
[2022-07-06] MEDS: Mirtazapine 15 MG Tablet 22.5 MG PO (21:46)
[2022-07-07 06:00] LABS: Hematocrit 31.2 % (37-47)
[2022-07-07 06:17] LABS: Anion Gap 9 (5-15); BUN 29 mg/dL (7-18); BUN/Creat Ratio 80.8 RATIO (10-20); Calcium,Total 9.8 mg/dL (8.5-10.1); Chloride 111 mmol/L (98-107); Creatinine, Serum 0.36 mg/dL (0.55-1.02); EST Glomerular Filtration Rate 209 mL/min (>60); Est Glom Filt Rate - Afr Amer 253 mL/min (>60); Estimated Creatinine Clearance 135.19 ml/min; Glucose 108 mg/dL (74-106); Magnesium 1.5 mg/dL (1.6-2.6); Potassium 3.9 mmol/L (3.5-5.1); Sodium Level 138 mmol/L (136-145)
[2022-07-07] MEDS: Juven (unflavored) Packet 1 PACKET GT (06:19)
[2022-07-07] MEDS: Acetaminophen 650 MG/20 ML UDC 1000 MG PO ×3 (06:20→22:12)
[2022-07-07] MEDS: Pivot 1.5 Cal 1,000 ML BOTTLE 135 ML GT ×2 (06:21→22:13)
[2022-07-07] MEDS: 0.9% Saline Lock 10 ML Syringe IV ×2 (06:57→13:38)
--- NOTE | 2022-07-07 07:07 | NURSING ---
pt reports that she is having sinus drainage and bring up a thick clear mucus, some sneezing. pt temp was 99.1 and it was reported by [facility] that pt was cold and shivering.
[2022-07-07 07:19] VITALS: BP 122/75; PULSE 105; RESP 16; TEMP 37.3; O2SAT 100
[2022-07-07] MEDS: Enoxaparin 40 MG/0.4 ML Syringe SC (08:52)
[2022-07-07] MEDS: Vitamin E 400 UNITS Capsule PO (08:52)
[2022-07-07] MEDS: Ascorbic Acid 500 MG Tablet PO ×2 (08:52→16:40)
[2022-07-07] MEDS: Cholestyramine/Sucrose 4 GM/PACKET 8 GM PO (08:52)
[2022-07-07] MEDS: Potassium Chloride Oral Soln 20 MEQ/15 ML UDC 30 MEQ PO ×2 (08:52→16:40)
[2022-07-07] MEDS: Spironolactone 25 MG Tablet PO ×2 (08:53→22:07)
[2022-07-07] MEDS: Cholecalciferol (VIT D3) 25 MCG TABLET (1,000 UNITS) 50 MCG PO (08:53)
[2022-07-07] MEDS: Magnesium Chloride 64 MG Delay Rel.Tablet 128 MG PO ×2 (08:53→22:05)
[2022-07-07] MEDS: Pantoprazole Sodium 40 MG Tablet PO ×2 (08:53→22:05)
[2022-07-07] MEDS: Lidocaine 5% 35GM Tube 1 APPLIC TOPICAL (18:32)
[2022-07-07 19:36] VITALS: BP 106/75; PULSE 117; RESP 17; TEMP 37.1; O2SAT 96
[2022-07-07] MEDS: Mirtazapine 15 MG Tablet 22.5 MG PO (22:06)
[2022-07-07] MEDS: traMADol 50 MG Tablet PO (22:11)
[2022-07-07 22:15] VITALS: O2SAT 96
[2022-07-08] MEDS: Acetaminophen 650 MG/20 ML UDC 1000 MG PO ×2 (06:41→14:09)
[2022-07-08] MEDS: Pivot 1.5 Cal 1,000 ML BOTTLE 135 ML GT ×2 (06:41→20:56)
[2022-07-08 07:38] VITALS: BP 96/61; PULSE 103; RESP 16; TEMP 36.7; O2SAT 99
[2022-07-08] MEDS: Juven (unflavored) Packet 1 PACKET GT ×2 (07:52→17:19)
[2022-07-08] MEDS: Spironolactone 25 MG Tablet PO ×2 (07:52→21:04)
[2022-07-08] MEDS: Cholestyramine/Sucrose 4 GM/PACKET 8 GM PO ×3 (07:52→17:19)
[2022-07-08] MEDS: Enoxaparin 40 MG/0.4 ML Syringe SC (07:52)
[2022-07-08] MEDS: Potassium Chloride Oral Soln 20 MEQ/15 ML UDC 30 MEQ PO ×2 (07:52→17:19)
[2022-07-08] MEDS: Vitamin E 400 UNITS Capsule PO (07:52)
[2022-07-08] MEDS: Magnesium Chloride 64 MG Delay Rel.Tablet 128 MG PO ×2 (07:53→21:05)
[2022-07-08] MEDS: Pantoprazole Sodium 40 MG Tablet PO ×2 (07:53→21:05)
[2022-07-08] MEDS: Ascorbic Acid 500 MG Tablet PO ×2 (07:53→17:20)
[2022-07-08] MEDS: Cholecalciferol (VIT D3) 25 MCG TABLET (1,000 UNITS) 50 MCG PO (07:53)
[2022-07-08 21:00] VITALS: PULSE 107
[2022-07-08] MEDS: Mirtazapine 15 MG Tablet 22.5 MG PO (21:04)
[2022-07-08] MEDS: 0.9% Saline Lock 10 ML Syringe IV (21:06)
[2022-07-08 21:36] VITALS: BP 102/61; PULSE 107; RESP 16; TEMP 36.8; O2SAT 100
[2022-07-09] MEDS: traMADol 50 MG Tablet PO (01:34)
[2022-07-09] MEDS: Acetaminophen 650 MG/20 ML UDC 1000 MG PO ×3 (07:01→20:01)
[2022-07-09] MEDS: Pivot 1.5 Cal 1,000 ML BOTTLE 135 ML GT ×2 (07:02→22:05)
[2022-07-09 07:04] VITALS: BP 116/58; PULSE 98; RESP 16; TEMP 36.4; O2SAT 99
[2022-07-09] MEDS: Cholestyramine/Sucrose 4 GM/PACKET 8 GM PO ×3 (09:14→17:02)
[2022-07-09] MEDS: Juven (unflavored) Packet 1 PACKET GT ×2 (09:14→17:02)
[2022-07-09] MEDS: Potassium Chloride Oral Soln 20 MEQ/15 ML UDC 30 MEQ PO ×2 (09:14→17:03)
[2022-07-09] MEDS: Pantoprazole Sodium 40 MG Tablet PO ×2 (09:15→20:03)
[2022-07-09] MEDS: Ascorbic Acid 500 MG Tablet PO ×2 (09:15→17:02)
[2022-07-09] MEDS: Vitamin E 400 UNITS Capsule PO (09:15)
[2022-07-09] MEDS: Cholecalciferol (VIT D3) 25 MCG TABLET (1,000 UNITS) 50 MCG PO (09:15)
[2022-07-09] MEDS: Magnesium Chloride 64 MG Delay Rel.Tablet 128 MG PO ×2 (09:15→20:02)
[2022-07-09] MEDS: Spironolactone 25 MG Tablet PO ×2 (09:15→20:02)
[2022-07-09] MEDS: Enoxaparin 40 MG/0.4 ML Syringe SC (09:16)
[2022-07-09] MEDS: 0.9% Saline Lock 10 ML Syringe IV (17:03)
[2022-07-09] MEDS: Mirtazapine 15 MG Tablet 22.5 MG PO (20:02)
[2022-07-09 20:06] VITALS: BP 97/65; PULSE 76; RESP 14; TEMP 36.8; O2SAT 98
[2022-07-09 20:15] VITALS: PULSE 76; RESP 14; O2SAT 98
[2022-07-10] MEDS: Acetaminophen 650 MG/20 ML UDC 1000 MG PO ×2 (06:29→21:36)
[2022-07-10] MEDS: Pivot 1.5 Cal 1,000 ML BOTTLE 135 ML GT (06:29)
[2022-07-10] MEDS: Potassium Chloride Oral Soln 20 MEQ/15 ML UDC 30 MEQ PO ×2 (09:11→16:58)
[2022-07-10] MEDS: Juven (unflavored) Packet 1 PACKET GT (09:11)
[2022-07-10] MEDS: Enoxaparin 40 MG/0.4 ML Syringe SC (09:12)
[2022-07-10] MEDS: Pantoprazole Sodium 40 MG Tablet PO ×2 (09:12→21:35)
[2022-07-10] MEDS: Magnesium Chloride 64 MG Delay Rel.Tablet 128 MG PO ×2 (09:12→21:35)
[2022-07-10] MEDS: Vitamin E 400 UNITS Capsule PO (09:12)
[2022-07-10] MEDS: Ascorbic Acid 500 MG Tablet PO ×2 (09:12→16:58)
[2022-07-10] MEDS: Spironolactone 25 MG Tablet PO ×2 (09:12→21:35)
[2022-07-10] MEDS: Cholecalciferol (VIT D3) 25 MCG TABLET (1,000 UNITS) 50 MCG PO (09:12)
[2022-07-10 10:00] VITALS: BP 103/79; PULSE 93; RESP 16; TEMP 36.3; O2SAT 98
--- NOTE | 2022-07-10 10:26 | PCM.PROGNOTE ---
Subjective Subjective Afebrile VSS-heart rate is within normal limits today and the blood pressure is stable. Maintaining appropriate oxygen saturation on RA Oral intake is poor. Oral intake yesterday was only 560 cc. Weight is stable Discussed with nursing - no problems that need addressed Reviewed the PT/OT/ST notes Medication list reviewed. Denies nausea, abd pain. No fevers or chills. The drain was removed by Dr. Osorio today. Objective Data Objective Data Vital Signs: Vital Signs Temp Pulse Resp BP Pulse Ox O2 Del Method 97.4 F L 93 16 103/79 98 Room Air 07/10/22 10:00 07/10/22 10:00 07/10/22 10:00 07/10/22 10:00 07/10/22 10:00 07/10/22 10:00 Oxygen Delivery Method Room Air Weight: 92 lb 2.452 oz Body Mass Index (BMI) 23.4 Intake & Output: Intake and Output for Last 24 Hours 07/08/22 07/09/22 07/10/22 23:59 23:59 23:59 Intake Total 1045 / 1045 1969 / 1969 225 / 225 Output Total 1200 / 1200 955 / 955 200 / 200 Balance -155 / -155 1015 / 1015 25 / 25 Medical Nutrition Assessment Dietitian: Malnutrition Criteria Met Start: 07/01/22 13:13 Freq: Status: Active Protocol: Document 07/04/22 13:37 AG (Rec: 07/04/22 13:37 AG [id number]) Nutrition Malnutrition Evidence of Malnutrition Exists Yes Malnutrition (severe): Chronic Evidenced By Suboptimal Energy Intake ( Severe),Weight Loss (Severe) Intake Problem Increased Nutrient Needs (specify) Etiology protein r/t recent surgery Signs/Symptoms as evidenced by L masectomy and R leg wound stasis ulcer Status Active Problem Clinical Problem Chronic Disease or Condition Related Malnutrition Etiology chronic, severe malnutrition related to inadequate oral intake w/ increased energy needs d/t cancer, wounds Signs/Symptoms as evidenced by estimated as evidenced by PO intake meeting <75% of estimated energy needs over past 3-4 months; unintentional wt loss of 7.1kg /14% wt loss x ~5 months Status Active Problem Recommendation Dietitian Recommendations/Changes 1) Regular diet as tolerated 2) To encourage PO intake at meals, will adjust EN to 135mL bolus 4x/day PRN if PO intake is less than 50% of meal or if pt desires to have additional nutrition. Each bolus provides ~203 calories, 13 g protein, and 140mL fluid. 3) Continue premier protein drinks from home as tolerated; dislikes ensure. Daily breakfast smoothie as desired by pt. 4) Adrian BID for wound healing via PEG. 5) 60mL H2O flush q 6 hours; goal is 2500mL fluid intake/ day. 6) Weight daily as ordered. Lab / Micro Data Result Diagrams: 07/07/22 05:50 07/07/22 05:50 Physical Exam Const alert, oriented x3 and no apparent distress General Appearance: cooperative Resp normal respiratory effort and clear to auscultation bilaterally Cardio regular rate and regular rhythm GI normal to inspection, nondistended, normoactive bowel sounds, soft to palpation and non-tender GI Narrative: No guarding with palpation. The PEG site is free of erythema or discharge and there is no local tenderness around the area. Extremity no calf tenderness General Extremity: Negative for edema Skin General Skin Exam: no breakdown Rashes: no rashes Wound Narrative: The wound on the R medial calf continues to heal. Much of the wound is now epithelialized, approximately 85%, and there is no slough. the remaining 15 % is beefy red and granulating. Assessment & Plan Assessment/Plan (1) Debility: (2) S/P left mastectomy: (3) Bartters syndrome: (4) PEG (percutaneous endoscopic gastrostomy) status: (5) Acute on chronic anemia: (6) Muscular dystrophy: (7) Ulcer of right lower extremity with fat layer exposed: (8) Hypomagnesemia: PLAN: Plan 1. Continue therapy 2. Magnesium sulfate 4 g IV today. 3. Recheck a BMP and magnesium in a few days. Hemoglobin is stable and actually improving. 4. Continue to urged her to increase her oral intake so that we can get down on the PEG tube feedings and hopefully at some point get her off PEG tube. She had 3 PEG tube feedings over the weekend during the day and 1 at at bedtime on the . Charges/Coding Visit Charges Inpatient E&M: 15571 Subs Hosp L2
[2022-07-10] MEDS: Magnesium Sulfate 4gm/100mL 4 GM/100 ML IV.SOLN. IV (12:21)
[2022-07-10] MEDS: 0.9% Saline Lock 10 ML Syringe IV ×2 (12:24→13:01)
--- NOTE | 2022-07-10 12:49 | PCM.PN.SRG ---
Subjective Subjective Pt denies pain at incision--BERTO minimal output serous. Objective Data Objective Data Vital Signs: Vital Signs Temp Pulse Resp BP Pulse Ox O2 Del Method 97.4 F L 93 16 103/79 98 Room Air 07/10/22 10:00 07/10/22 10:00 07/10/22 10:00 07/10/22 10:00 07/10/22 10:00 07/10/22 10:00 Oxygen Delivery Method Room Air Weight: 92 lb 2.452 oz Body Mass Index (BMI) 23.4 Intake & Output: Intake and Output for Last 24 Hours 07/08/22 07/09/22 07/10/22 23:59 23:59 23:59 Intake Total 1045 / 1045 1970 / 1970 1565 / 1565 Output Total 1200 / 1200 955 / 955 600 / 600 Balance -155 / -155 1015 / 1015 965 / 965 Medical Nutrition Assessment Dietitian: Malnutrition Criteria Met Start: 07/01/22 13:13 Freq: Status: Active Protocol: Document 07/04/22 13:37 AG (Rec: 07/04/22 13:37 AG [id number]) Nutrition Malnutrition Evidence of Malnutrition Exists Yes Malnutrition (severe): Chronic Evidenced By Suboptimal Energy Intake ( Severe),Weight Loss (Severe) Intake Problem Increased Nutrient Needs (specify) Etiology protein r/t recent surgery Signs/Symptoms as evidenced by L masectomy and R leg wound stasis ulcer Status Active Problem Clinical Problem Chronic Disease or Condition Related Malnutrition Etiology chronic, severe malnutrition related to inadequate oral intake w/ increased energy needs d/t cancer, wounds Signs/Symptoms as evidenced by estimated as evidenced by PO intake meeting <75% of estimated energy needs over past 3-4 months; unintentional wt loss of 7.1kg /14% wt loss x ~5 months Status Active Problem Recommendation Dietitian Recommendations/Changes 1) Regular diet as tolerated 2) To encourage PO intake at meals, will adjust EN to 135mL bolus 4x/day PRN if PO intake is less than 50% of meal or if pt desires to have additional nutrition. Each bolus provides ~203 calories, 13 g protein, and 140mL fluid. 3) Continue premier protein drinks from home as tolerated; dislikes ensure. Daily breakfast smoothie as desired by pt. 4) Adrian BID for wound healing via PEG. 5) 60mL H2O flush q 6 hours; goal is 2500mL fluid intake/ day. 6) Weight daily as ordered. 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 Incision healing well with Steri-Strips, JPs serousx1---BERTO was removed at bedside. Patient tolerated well. plan for f/u in office- the week following d/c from rehab. Samantha Osorio M.D. Pager: [phone] [facility] [address] [place] [address], [facility], [address] [place] [address] Office: [phone]
[2022-07-10] MEDS: Morphine 2 MG/ML Syringe IV (13:01)
--- NOTE | 2022-07-10 13:23 | CASEMGMT ---
Addendum entered by Deloris Lemus 07/11/22 14:36: Spoke with pt to review details of DC. Since pt is paying OOP for each visit, pt is requesting only SN visits and pt will follow [facility] for therapy at home. Pt also plans to return to work and concerned about homebound status. [facility] confirmed with insurance that pt does not need to be homebound for visits. Pt has f/u appt with PCP on 07/14, and [facility] to follow after Dr agrees. Pt has POA/nurse friend to assist in the interim. [facility] contacted this worker and stated Pivot is under a national shortage and requesting alternative. SW spoke with CHRISTY Thapa, and she is recommending Nutrin 1.5. SW updated CSI and sent new script reflecting change. Pt is aware and appreciative. Plan; DC home 07/14, [facility] SN Addendum entered by Deloris Lemus 07/10/22 16:26: [facility] can accept, but provided updated pricing for pt. Original Note: Social Work Insurance requesting NRD 07/11. IDT agreeable to set DC date as pt is progressing well. Dr. Osorio removed pt's drain today. Spoke with patient about setting DC date. Pt requesting 07/13. IDT agreeable. Pt will DC to [facility], [place] [phone] SW made referral to [facility] for tube feed supplies and [facility] PT/OT/SN. Family to transport. Plan: DC 07/13 to [facility], [facility] PT/OT/SN, tube feed. CELESTE PalmaW
[2022-07-10] MEDS: Cholestyramine/Sucrose 4 GM/PACKET 8 GM PO ×2 (14:49→16:58)
[2022-07-10] MEDS: Mirtazapine 15 MG Tablet 22.5 MG PO (21:30)
[2022-07-10] MEDS: traMADol 50 MG Tablet PO (21:41)
[2022-07-10 21:53] VITALS: BP 114/60; PULSE 104; RESP 17; TEMP 36.7; O2SAT 97
[2022-07-10 22:00] VITALS: PULSE 104; RESP 17
[2022-07-11] MEDS: Cholestyramine/Sucrose 4 GM/PACKET 8 GM PO ×3 (06:47→18:12)
[2022-07-11] MEDS: Acetaminophen 650 MG/20 ML UDC 1000 MG PO ×3 (06:47→22:09)
[2022-07-11] MEDS: 0.9% Saline Lock 10 ML Syringe IV ×2 (06:51→10:01)
--- NOTE | 2022-07-11 07:38 | NURSING ---
Dressing change completed at 0630 per orders. Pt tolerated well.
[2022-07-11] MEDS: Pantoprazole Sodium 40 MG Tablet PO ×2 (08:15→22:10)
[2022-07-11] MEDS: Magnesium Chloride 64 MG Delay Rel.Tablet 128 MG PO ×2 (08:15→22:10)
[2022-07-11] MEDS: Cholecalciferol (VIT D3) 25 MCG TABLET (1,000 UNITS) 50 MCG PO (08:15)
[2022-07-11] MEDS: Ascorbic Acid 500 MG Tablet PO ×2 (08:15→18:12)
[2022-07-11] MEDS: Vitamin E 400 UNITS Capsule PO (08:15)
[2022-07-11 08:16] VITALS: BP 112/70; PULSE 82; RESP 15; TEMP 36.1; O2SAT 100
[2022-07-11] MEDS: Spironolactone 25 MG Tablet PO ×2 (08:16→22:10)
[2022-07-11] MEDS: Juven (unflavored) Packet 1 PACKET GT ×2 (09:53→18:12)
[2022-07-11] MEDS: Potassium Chloride Oral Soln 20 MEQ/15 ML UDC 30 MEQ PO ×2 (09:53→18:12)
[2022-07-11] MEDS: Enoxaparin 40 MG/0.4 ML Syringe SC (09:53)
[2022-07-11] MEDS: Ondansetron ODT 4 MG Tablet 8 MG PO (09:54)
--- NOTE | 2022-07-11 11:08 | PCM.PN.BLA ---
Progress Note Afebrile VSS Maintaining appropriate oxygen saturation on RA Oral fluid intake is poor. She had 480 in yesterday.....if the I&O's are accurate. I know her friends were here last night and were getting her things to drink.....480 may be low. She had only 1 PRN TF yesterday and that was at 0630. She continues to get TF at HS. Discussed with nursing - no problems that need addressed Reviewed the PT/OT notes Medication list reviewed. Taking tramadol at most once daily for pain. No complaints today. She denies nausea, vomiting, heartburn, lightheadedness, shortness of breath, palpitations, dysuria and calf pain. Physical Exam Const alert and no apparent distress Resp normal respiratory effort and clear to auscultation bilaterally Cardio regular rate, regular rhythm, no murmurs and no gallops GI normal to inspection, nondistended, normoactive bowel sounds, soft to palpation and non-tender GI Narrative: No guarding with palpation. The PEG site is free of erythema or discharge and there is no local tenderness around the area. Extremity no calf tenderness General Extremity: Negative for edema Skin General Skin Exam: no breakdown Rashes: no rashes Assessment & Plan Assessment/Plan (1) Debility: (2) S/P left mastectomy: PLAN: The incision is intact and healing well. There is no mickey-incisional erythema and no DC. The drain was removed yesterday by Dr. Osorio. (3) Bartters syndrome: PLAN: Will need to follow up with nephrology post DC. (4) PEG (percutaneous endoscopic gastrostomy) status: (5) Acute on chronic anemia: PLAN: Stable (6) Muscular dystrophy: (7) Ulcer of right lower extremity with fat layer exposed: PLAN: Continues to decrease in size and the majority of the wound is now epithelialized. (8) Hypomagnesemia: PLAN: Plan 1. Continue therapy 2. Recheck HH, Mag and BMP in the AM. 3. DC on home with her parents. Visit Charges Inpatient E&M: 59326 Subs Hosp L2
[2022-07-11 20:32] VITALS: BP 104/61; PULSE 99; RESP 16; TEMP 36.7; O2SAT 99
[2022-07-11 22:00] VITALS: PULSE 99; RESP 16; O2SAT 99
[2022-07-11] MEDS: Mirtazapine 15 MG Tablet 22.5 MG PO (22:10)
[2022-07-11] MEDS: traMADol 50 MG Tablet PO (22:23)
--- NOTE | 2022-07-12 03:53 | NURSING ---
Reviewed and agree with Ashu CATHERINE, documentation and assessment charting.
[2022-07-12] MEDS: 0.9% Saline Lock 10 ML Syringe IV ×3 (05:34→21:53)
[2022-07-12] MEDS: Acetaminophen 650 MG/20 ML UDC 1000 MG PO ×2 (05:35→21:55)
[2022-07-12] MEDS: Cholestyramine/Sucrose 4 GM/PACKET 8 GM PO ×2 (05:47→18:22)
[2022-07-12 09:17] VITALS: BP 105/62; PULSE 87; RESP 17; TEMP 36.4; O2SAT 98
[2022-07-12] MEDS: Magnesium Chloride 64 MG Delay Rel.Tablet 128 MG PO ×2 (09:19→21:54)
[2022-07-12] MEDS: Pantoprazole Sodium 40 MG Tablet PO ×2 (09:19→21:54)
[2022-07-12] MEDS: Spironolactone 25 MG Tablet PO ×2 (09:19→21:54)
[2022-07-12] MEDS: Ascorbic Acid 500 MG Tablet PO ×2 (09:19→18:25)
[2022-07-12] MEDS: Cholecalciferol (VIT D3) 25 MCG TABLET (1,000 UNITS) 50 MCG PO (09:19)
[2022-07-12] MEDS: Potassium Chloride Oral Soln 20 MEQ/15 ML UDC 30 MEQ PO ×2 (09:19→18:25)
[2022-07-12] MEDS: Vitamin E 400 UNITS Capsule PO (09:19)
[2022-07-12] MEDS: Juven (unflavored) Packet 1 PACKET GT ×2 (11:14→18:21)
--- NOTE | 2022-07-12 16:30 | PN_ITS ---
Subjective Subjective Afebrile VSS Maintaining appropriate oxygen saturation on RA Oral fluid intake is better. She took in 1120 on 07/11/2022 with much encouragement. Urine output has decreased over the past week. Discussed with nursing - no problems that need addressed Reviewed the PT/OT/ST notes Medication list reviewed. All lab from this morning was personally reviewed. Hemoglobin is stable at 10. Sodium is normal at 138 and the potassium is 3.9. Serum bicarb is low at 18 but stable. The BUN is 29 with a creatinine of 0.38 and a BUN/creatinine ratio of 80.8. Magnesium is 1.5 The dietitian changed the Pivot 1.5 to 3 times daily as needed yesterday. She has not had any pivot today. Did not take the Pivot bolus last night at HS. Doing well. Denies nausea, abdominal pain, insomnia, dysuria, calf pain, lightheadedness and shortness of breath. Objective Data Objective Data Vital Signs: Vital Signs Temp Pulse Resp BP Pulse Ox O2 Del Method 97.5 F L 87 17 105/62 98 Room Air 07/12/22 09:17 07/12/22 09:17 07/12/22 09:17 07/12/22 09:17 07/12/22 09:17 07/12/22 09:17 Oxygen Delivery Method Room Air Weight: 92 lb 2.452 oz Body Mass Index (BMI) 23.4 Intake & Output: Intake and Output for Last 24 Hours 07/10/22 07/11/22 07/12/22 23:59 23:59 23:59 Intake Total 1760 / 1960 2420 / 2420 921 / 921 Output Total 600 / 600 1100 / 1100 400 / 400 Balance 1160 / 1360 1320 / 1320 521 / 521 Medical Nutrition Assessment Dietitian: Malnutrition Criteria Met Start: 07/01/22 13:13 Freq: Status: Active Protocol: Document 07/04/22 13:37 AG (Rec: 07/04/22 13:37 AG [id number]) Nutrition Malnutrition Evidence of Malnutrition Exists Yes Malnutrition (severe): Chronic Evidenced By Suboptimal Energy Intake ( Severe),Weight Loss (Severe) Intake Problem Increased Nutrient Needs (specify) Etiology protein r/t recent surgery Signs/Symptoms as evidenced by L masectomy and R leg wound stasis ulcer Status Active Problem Clinical Problem Chronic Disease or Condition Related Malnutrition Etiology chronic, severe malnutrition related to inadequate oral intake w/ increased energy needs d/t cancer, wounds Signs/Symptoms as evidenced by estimated as evidenced by PO intake meeting <75% of estimated energy needs over past 3-4 months; unintentional wt loss of 7.1kg /14% wt loss x ~5 months Status Active Problem Recommendation Dietitian Recommendations/Changes 1) Regular diet as tolerated 2) To encourage PO intake at meals, will adjust EN to 135mL bolus 4x/day PRN if PO intake is less than 50% of meal or if pt desires to have additional nutrition. Each bolus provides ~203 calories, 13 g protein, and 140mL fluid. 3) Continue premier protein drinks from home as tolerated; dislikes ensure. Daily breakfast smoothie as desired by pt. 4) Adrian BID for wound healing via PEG. 5) 60mL H2O flush q 6 hours; goal is 2500mL fluid intake/ day. 6) Weight daily as ordered. Lab / Micro Data Result Diagrams: 07/07/22 05:50 07/07/22 05:50 Physical Exam Const alert, oriented x3 and no apparent distress General Appearance: cooperative Resp normal respiratory effort and clear to auscultation bilaterally Effort and Inspection: able to speak in complete sentences and symmetric chest movement Cardio regular rate, regular rhythm, no murmurs and no gallops GI normal to inspection, nondistended, normoactive bowel sounds, soft to palpation and non-tender GI Narrative: No guarding with palpation. The PEG site is free of erythema or discharge and there is no local tenderness around the area. Extremity no calf tenderness and no pedal edema Skin General Skin Exam: no breakdown Rashes: no rashes Wound Narrative: The wound on the R medial calf continues to heal. Much of the wound is now epithelialized, approximately 85%, and there is no slough. the remaining 15 % is beefy red and granulating. The chest incision is intact with no mickey- incisional erythema and no DC. the PEG site has no erythema, DC or swelling Neuro oriented x3, CN's II-XII intact bilaterally and moves all extremities Sensorium / Orientation: awake and alert; Negative for confused Psych mental status grossly normal, thought process normal, cooperative, affect normal, speech normal, activity/motor behavior normal, denies homicidal ideation and denies suicidal ideation Assessment & Plan Assessment/Plan (1) Debility: (2) S/P left mastectomy: PLAN: The incision is intact and healing well. There is no imckey-incisional erythema and no DC. The drain was removed yesterday by Dr. Osorio. (3) Bartters syndrome: PLAN: Will need to follow up with nephrology post DC. (4) PEG (percutaneous endoscopic gastrostomy) status: (5) Acute on chronic anemia: PLAN: Stable (6) Muscular dystrophy: (7) Ulcer of right lower extremity with fat layer exposed: PLAN: Continues to decrease in size and the majority of the wound is now epithelialized. (8) Hypomagnesemia: PLAN: Plan 1. Plan discharge home tomorrow with her parents. 2. Increase the magnesium chloride to 128 mg p.o. 3 times daily and give 4 g of magnesium sulfate today. 3. Continue potassium 30 mEq p.o. twice daily 4. She should have a BMP, magnesium and H&H in 1 week post discharge. 5. Start tamoxifen again. Charges/Coding Visit Charges Inpatient E&M: 77893 Subs Hosp L2
--- NOTE | 2022-07-12 16:44 | PCM.DC ---
Discharge Instructions Diet Discharge Diet: - (regular diet - Pivot 1.5 135 ml PRN if you don't eat at least 50 % of a meal. Make sure to keep up your fluid intake up to about 2 liters a day. ) Activity Discharge Activity: May Not Drive and May Shower Weight Bearing Status: Weight bearing as tolerated Dressing / Incision Call your doctor if your incision/area has: Continuous Slow Oozing, Sudden Increased Bleeding, Increased Pain/ Swelling, Increased Redness, Foul Smelling Discharge and Swelling at the incision site Call your doctor if you observe: Fever of 101 or Higher, Inability to urinate, Inability to have a bowel movement, Shortness of breath, Dizziness, Chest pain, Increased palpitations (irregular heartbeat), Calf discomfort and Uncontrolled pain Suture Line Care: Avoid Pulling/Pushing and Avoid Pinching/Bending Change Dressing in: 1 day Cleanse incision/area with: Soap & Water Follow Up Care Please Follow Up With: Samantha Osorio MD When: 07/24/2022 at 1 PM. Also follow up with Dr. Schwab (kidney doctor) on 09/28/22 at [address] Jam Verde on 07/14/ at 3:30 PM Test Results: Test results from this visit will be discussed in further detail at your follow-up appointment, if applicable. 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 Attending Provider: Anabela Disla Primary Care Provider: Jam Verde Instructions Additional Instructions / Restrictions: 1. You have been a tiffany to have on rehab and we have all appreciated your great attitude. You are well on the way to recovery. 2. There is a problem with your kidneys......you waste magnesium and potassium and you need supplements to keep these lab values within normal limits. You are taking a certain kind of magnesium which is a long acting magnesium. It is Magnesium chloride and it does not tend to cause diarrhea like Magnesium oxide. You already have enough diarrhea and we are having to give you Questran to help firm up the stool. We made an appt for you to see a clinic business manager (kidney doctor) and his name is Dr. Schwab. He sees patients at the hospital here so it will be convenient. He is very nice and I think you will like him.....I like him a lot and respect him as a doctor. 3. Check you breast incision every day. If the incision starts to open up, or there is redness around the incision or increased swelling let Dr. Osorio know as soon as possible. Also let her know if you are having fevers, sweats or shaking chills. You may have sweats and hot flashes because of the Tamoxifen but, you should not have fevers. Tamoxifen is an anti-estrogen so it essentially puts you into chemical menopause. It can in some people cause blood clots so keep moving. If you develop pain or swelling in the calves, chest pain, shortness of breath or start coughing up blood call Dr. Verde and be seen. 4. You will also need to follow up with Dr. Perez and [place]. 5. The path report on the lymph nodes that were removed from the Left armpit showed all the lymph nodes were negative for cancer. 6. If you have any questions after you leave rehab please do not hesitate to call me. 7. The wound on the R leg will be completely healed soon. Cleanse the wound once a day and then apply adaptic and cover with a dry dressing. After the wound is healed wait at least 1 month prior to putting your brace on and make sure to pad the brace very well and do not wear the brace for more than 30 minutes at a time initially. 8. Dr. Verde will want to check some lab in about 7-10 days to check the BMP and the magnesium. OFFICE: [phone]. CELL: [phone] Discharge Orders/Prescriptions Prescriptions: New loperamide 2 mg Capsule 4 mg PO Q4H PRN PRN (Reason: Diarrhea) Qty: 0 0RF potassium chloride 20 mEq/15 mL Liquid 30 meq PO BIDCM Qty: 1200 0RF Rx Instructions: Take 20 CC PO BID or give via PEG pantoprazole 40 mg Tablet,Delayed Release (Dr/Ec) 40 mg PO BID Qty: 60 0RF Mag 64 64 mg Tablet,Delayed Release (Dr/Ec) 128 mg PO TID Qty: 180 0RF tramadol 50 mg Tablet 50 - 100 mg PO Q6H PRN PRN (Reason: PAIN 4-10) Qty: 28 0RF tamoxifen 10 mg Tablet 10 mg PO DAILY Qty: 30 0RF Pivot 1.5 Herbie 0.09 gram- 1.5 kcal/mL Liquid 1 ml G-tube HS PRN (Reason: Poor PO intake/pt request) Qty: 135 0RF Pivot 1.5 Herbie 0.09 gram- 1.5 kcal/mL Liquid 135 ml G-tube TID@0600,1400,2000 PRN (Reason: GIVE IF MEAL INTAKE <50%/pt re) Qty: 135 0RF Adrian (with collagen) 7-7-1.5 gram Powder In Packet 1 packet G-tube BIDCM Qty: 60 0RF promethazine 12.5 mg suppository 12.5 mg DC TID PRN (Reason: nausea/vomiting) Qty: 12 0RF Rx Instructions: do not give 3rd daily dose after evening meal or within 4hr before bed Continued ascorbic acid (vitamin C) 500 mg tablet 500 mg PO BIDCM spironolactone 25 mg tablet 25 mg PO BID Qty: 60 0RF zinc sulfate 50 mg zinc (220 mg) capsule 220 mg PO DAILY Qty: 30 0RF vitamin E (dl, acetate) 180 mg (400 unit) capsule 400 units PO DAILYCM Qty: 30 0RF Changed calcitriol 0.5 mcg capsule 0.5 mcg PO DAILY Qty: 30 0RF cholestyramine (with sugar) 4 gram powder in packet 8 g PO TIDAC Qty: 90 0RF Discontinued lidocaine-prilocaine 2.5-2.5 % cream 1 applic topical ONCE PRN (Reason: port access) 30 Days Qty: 30 2RF ondansetron 8 mg tablet,disintegrating 8 mg PO Q8H PRN (Reason: nausea and vomiting) Qty: 30 2RF loperamide 2 mg Capsule 4 mg PO Q4H PRN PRN (Reason: Diarrhea) Qty: 30 0RF potassium chloride 20 mEq/15 mL liquid 40 meq PO BIDCM pantoprazole 20 mg tablet,delayed release (DR/EC) 40 mg PO BID mirtazapine 15 mg tablet 22.5 mg PO QHS heparin, porcine (PF) 10 unit/mL syringe 50 units IV UD Mag 64 64 mg tablet,delayed release (DR/EC) 128 mg PO BID Pivot 1.5 Herbie 0.09 gram- 1.5 kcal/mL liquid 35 ml G-tube QHS Rx Instructions: 35 cc/hr with 60 cc water flush q6H. to be scheduled at start at 2200 and stop at 0600 No Action acetaminophen 650 mg/20.3 mL Solution 1,000 mg PO Q8H PRN (Reason: Pain 1-10 Or Fever) Qty: 0 0RF Referrals / Follow Up: Jam Verde MD [Primary Care Provider] - 07/14/22 3:30 pm () Arnol Schwab MD [Med Staff - Consulting] - 09/28/22 2:00 pm (Paperwork will be mailed to your home, please complete and bring to appointment.) Samantha Osorio MD [Med Staff - Active Staff] - 07/24/22 1:00 pm Disposition Disposition (needs filled in before D/C Order can be placed): Home Health Service
[2022-07-12] MEDS: Magnesium Sulfate 4gm/100mL 4 GM/100 ML IV.SOLN. IV (17:23)
[2022-07-12 19:37] VITALS: BP 92/56; PULSE 103; RESP 14; TEMP 36.9; O2SAT 100
[2022-07-12] MEDS: Mirtazapine 15 MG Tablet 22.5 MG PO (21:53)
[2022-07-13] MEDS: Acetaminophen 650 MG/20 ML UDC 1000 MG PO (06:07)
[2022-07-13] MEDS: Pivot 1.5 Cal 1,000 ML BOTTLE 135 ML GT (06:08)
[2022-07-13 07:32] VITALS: BP 115/72; PULSE 93; RESP 16; TEMP 36.8; O2SAT 96
[2022-07-13] MEDS: Vitamin E 400 UNITS Capsule PO (09:54)
[2022-07-13] MEDS: Enoxaparin 40 MG/0.4 ML Syringe SC (09:54)
[2022-07-13] MEDS: Magnesium Chloride 64 MG Delay Rel.Tablet 128 MG PO ×2 (09:54→14:38)
[2022-07-13] MEDS: Juven (unflavored) Packet 1 PACKET GT (09:54)
[2022-07-13] MEDS: Ascorbic Acid 500 MG Tablet PO (09:54)
[2022-07-13] MEDS: Potassium Chloride Oral Soln 20 MEQ/15 ML UDC 30 MEQ PO (09:55)
[2022-07-13] MEDS: Tamoxifen 10 MG Tablet PO (11:18)
[2022-07-13] MEDS: Spironolactone 25 MG Tablet PO (11:18)
[2022-07-13] MEDS: Cholecalciferol (VIT D3) 25 MCG TABLET (1,000 UNITS) 50 MCG PO (11:18)
[2022-07-13] MEDS: Pantoprazole Sodium 40 MG Tablet PO (11:19)
--- NOTE | 2022-07-13 11:59 | PCM.DC.SUM ---
Providers Date of Admission: 06/30/22 Date of Discharge: 07/13/22 Primary Care Physician: Dr. Jam Verde MD Reason For Visit: LEFT MASECTOMY Diagnosis Discharge Diagnosis (1) Debility: Status: Acute Code(s): R53.81 - Other malaise (2) S/P left mastectomy: Status: Acute Code(s): Z90.12 - Acquired absence of left breast and nipple Plan: The incision is intact and healing well. There is no mickey-incisional erythema and no DC. The drain was removed yesterday by Dr. Osorio. (3) History of lymph node dissection of axilla: Status: Acute Code(s): Z98.890 - Other specified postprocedural states Plan: All 6 nodes removed are negative for CA. 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 (5) Hypomagnesemia: Status: Chronic Code(s): E83.42 - Hypomagnesemia (6) Hypokalemia: Status: Chronic Code(s): E87.6 - Hypokalemia (7) UGI bleed: Status: Resolved Code(s): K92.2 - Gastrointestinal hemorrhage, unspecified (8) Acute on chronic anemia: Status: Chronic Code(s): D64.9 - Anemia, unspecified Plan: Stable (9) Duodenal ulcer disease: Status: Acute Code(s): K26.9 - Duodenal ulcer, unspecified as acute or chronic, without hemorrhage or perforation (10) PEG (percutaneous endoscopic gastrostomy) status: Status: Acute Code(s): Z93.1 - Gastrostomy status (11) Diverticulosis: Status: Acute Code(s): K57.90 - Diverticulosis of intestine, part unspecified, without perforation or abscess without bleeding Plan: this is the likely etiology of the intraabdominal abscess she was admitted to the hospital for in April 2022. There are diverticuli throughout the colon. (12) Muscular dystrophy: Status: Acute Code(s): G71.00 - Muscular dystrophy, unspecified (13) Ulcer of right lower extremity with fat layer exposed: Status: Acute Code(s): L97.912 - Non-pressure chronic ulcer of unspecified part of right lower leg with fat layer exposed Plan: Continues to decrease in size and the majority of the wound is now epithelialized. Approximately 5% of the original wound is left and it is nearly healed....the base is beefy red granulation tissue and the wound is now even with the surrounding skin. 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 Getting TF now only PRN if she does not eat at least 50% of her meal. Plan DC home with [facility]. Follow up with Dr. Verde tomorrow and with Dr. Osorio on the and with Dr. Schwab on 09/28/22. Will also need to follow up with Dr. Perez. Tamoxifen was restarted on 07/12/22. Medications at Discharge Home Medications acetaminophen 650 mg/20.3 mL oral solution 1,000 mg (31.2308 mL) PO Q8H PRN Pain 1-10 Or Fever #0 mL 05/28/22 ascorbic acid (vitamin C) 500 mg tablet 500 mg PO BIDCM supplement 06/30/22 arginine 7 gram-glutam 7 gram-CaHMB 1.5 egev-tcuob-im-min oral pwd pkt (Adrian (with collagen)) 1 packet G-tube BIDCM #60 ea 07/12/22 calcitriol 0.5 mcg capsule 0.5 mcg PO DAILY #30 caps 07/12/22 cholestyramine (with sugar) 4 gram powder for susp in a packet 8 g PO TIDAC Check with primary doctor #90 packets 07/12/22 loperamide 2 mg capsule 4 mg PO Q4H PRN PRN Diarrhea #0 caps 07/12/22 magnesium chloride 64 mg (magnesium chloride) tablet,delayed release (Mag 64) 128 mg PO TID #180 tabs 07/12/22 nut.tx.comp. immune systm,reg 0.09 gram-1.5 kcal/mL liquid for tube feed (Pivot 1.5 Herbie) 1 ml G-tube HS PRN Poor PO intake/pt request #135 mL 07/12/22 nut.tx.comp. immune systm,reg 0.09 gram-1.5 kcal/mL liquid for tube feed (Pivot 1.5 Herbie) 135 ml G-tube TID@0600,1400,2000 PRN GIVE IF MEAL INTAKE <50%/pt re #135 mL 07/12/22 pantoprazole 40 mg tablet,delayed release 40 mg PO BID #60 tabs 07/12/22 potassium chloride 20 mEq/15 mL oral liquid 30 meq (22.5 mL) PO BIDCM #1,200 mL 07/12/22 promethazine 12.5 mg rectal suppository 12.5 mg MN TID PRN nausea/vomiting #12 ea 07/12/22 spironolactone 25 mg tablet 25 mg PO BID Check with primary doctor #60 tabs 07/12/22 tamoxifen 10 mg tablet 10 mg PO DAILY #30 tabs 07/12/22 tramadol 50 mg tablet 50 - 100 mg PO Q6H PRN PRN PAIN 4-10 #28 tabs 07/12/22 vitamin E (dl, acetate) 180 mg (400 unit) capsule 400 units PO DAILYCM supplement #30 caps 07/12/22 zinc sulfate 50 mg zinc (220 mg) capsule 220 mg PO DAILY supplement #30 caps 07/12/22 Hospital Course Operations - (L mastectomy with L axillary lymph node dissection on 06/27/[address] Osorio. ) Procedures None Summary of Care Provided Minutes Spent on Discharge: 45 Hospital Course: Bere Godinez is a 41-year-old female with a past medical history of L breast cancer with metastatic disease to a L axillary node, depression/anxiety, arthrogryposis muscular dystrophy, GERD, diverticulosis throughout the entire colon, nonhealing wound on the medial right calf due to an infected pimple, severe malnutrition and intra-abdominal abscess more likely than not due to a ruptured tic who was admitted to the acute rehab unit at [facility] initially on 05/28/22 for 3 hours of therapy daily to restore function/independence at or near her level prior to admission to the hospital for intra-abdominal abscess.? While on rehab she developed duodenal ulcers causing an upper GI bleed requiring her to be transfused with PRBC's. Dr. Dhaliwal Friend was consulted. EGD, colonoscopy and PEG were done on 06/09/22.? The colonoscopy revealed diverticulosis throughout the entire colon.? EGD revealed multiple oozing duodenal ulcers with a visible vessel that was coagulated with an argon plasma laser.? She is to be maintained on Protonix 40 MG BID for 12 weeks and then will have a repeat EGD for surveillance.? HGB has been stable since she was treated for PUD.? Bere had a poor appetite when first admitted to Rehab and she had lost 11% of her body weight in the 6 months preceding hospital admission.? She was followed by the endodontic assistant while in the hospital and throughout her stay in rehab.? Duloxetine was discontinued in favor of Remeron to help stimulate appetite.? Her wt has decreased while in rehab because she had anasarca at admission to rehab due to severe protein depletion and this has since resolved. ? Her wt has been stable recently with only a few pounds up or down, mostly due to fluctuating fluid intake. 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 We have had difficulties with low sodium, low potassium and low magnesium.? Supplementation of magnesium and potassium was initiated and she was placed on Aldactone to help conserve Potassium and Magnesium in the kidney. She is going to follow up with Dr. Schwab from nephrology for this. With good nutrition and regular debridement the wound on the R medial calf is nearly completely healed at AR. 95% of the wound is now epithelialized and the part that is still open at the distal end of the wound is 100% granulating and even with the surrounding skin. I expect it to be completely healed soon and then she should start Eucerin intensive repair 1-2 times a day to moisturize. she is not to wear her leg brace for 1 month after the wound is completely healed and when she does wear it the leg and the brace should be padded. She should only wear the brace for no more than 30 minutes 2 times a day when she initially starts to use the brace. The wound is being dressed with Coloplast Hydrogel covered with a double layer of Adaptic and then gauze pads and then a gauze roll and CAMERON wrap. Bere left rehab on 06/27/22 and went to surgery for a mastectomy with left axillary lymph node dissection by Dr. Osorio. There were 6 lymph throats removed at the time of surgery and all 6 are negative for carcinoma. She returned to rehab on 06/30/2022 for additional strengthening and to train the family on how best to assist Bere with standing and pivoting. The final drain was removed on 07/10/[address] Osorio. The incision is intact and there is no mickey-incisional erythema, no dehiscence and no discharge. She was started on Tamoxifen 1 day prior to DC and will follow up with Dr. Perez post DC. Bere was discharged from rehab on 07/13/22 and will be going home with her parents who will assist her during her recovery. She should have a BMP and a mag in 7-10 days. Her HGB is stable. She has no nausea and no vomiting. Appetite and intake have improved significantly. Earlier in the admission Bere was quite anxious and frequently tachycardic. Adding a beta maxim to the drug regimen did not help with the tachycardia but, increasing the Remeron dosing did. At the time of DC the HR has been WNL for most of the previous 5 days. Bere has been taking Zinc, Vitamin E and Vitamin C for wound healing and these were continued at [facility]. She should be able to stop these medications in another month and start a one a day vitamin. Physical Exam Const alert, oriented x3 and no apparent distress General Appearance: cooperative Eyes PERRL, EOMs intact bilaterally, conjunctivae normal and no scleral icterus General Eye: normal appearance of both eyes Neck full ROM, No nuchal rigidity, supple, No nodes and no carotid bruits Resp normal respiratory effort and clear to auscultation bilaterally Effort and Inspection: able to speak in complete sentences and symmetric chest movement Cardio regular rate, regular rhythm, S1 normal heart sound, S2 normal heart sound, no murmurs, no rub and no gallops GI normal to inspection, nondistended, normoactive bowel sounds, soft to palpation and non-tender GI Narrative: No guarding with palpation. The PEG site is free of erythema or discharge and there is no local tenderness around the area. Inspection: Negative for abdominal distention Extremity no calf tenderness and no pedal edema Skin General Skin Exam: no breakdown Rashes: no rashes Wound Narrative: I changed the bandage on the R calf today and the wound is 90-95% healed. There are 3 small openings in the skin of the distal pole of the wound and they are even with the skin. The bases are 100% granulation tissue. The new skin is dry and will need moisturized going forward. Neuro oriented x3, CN's II-XII intact bilaterally and moves all extremities Sensorium / Orientation: awake and alert; Negative for confused Psych mental status grossly normal, thought process normal, cooperative, affect normal, speech normal, activity/motor behavior normal, denies homicidal ideation and denies suicidal ideation Medical Records Data Medical Nutrition Assessment Dietitian: Malnutrition Criteria Met Start: 07/01/22 13:13 Freq: Status: Active Protocol: Document 07/04/22 13:37 AG (Rec: 07/04/22 13:37 AG [id number]) Nutrition Malnutrition Evidence of Malnutrition Exists Yes Malnutrition (severe): Chronic Evidenced By Suboptimal Energy Intake ( Severe),Weight Loss (Severe) Intake Problem Increased Nutrient Needs (specify) Etiology protein r/t recent surgery Signs/Symptoms as evidenced by L masectomy and R leg wound stasis ulcer Status Active Problem Clinical Problem Chronic Disease or Condition Related Malnutrition Etiology chronic, severe malnutrition related to inadequate oral intake w/ increased energy needs d/t cancer, wounds Signs/Symptoms as evidenced by estimated as evidenced by PO intake meeting <75% of estimated energy needs over past 3-4 months; unintentional wt loss of 7.1kg /14% wt loss x ~5 months Status Active Problem Recommendation Dietitian Recommendations/Changes 1) Regular diet as tolerated 2) To encourage PO intake at meals, will adjust EN to 135mL bolus 4x/day PRN if PO intake is less than 50% of meal or if pt desires to have additional nutrition. Each bolus provides ~203 calories, 13 g protein, and 140mL fluid. 3) Continue premier protein drinks from home as tolerated; dislikes ensure. Daily breakfast smoothie as desired by pt. 4) Adrian BID for wound healing via PEG. 5) 60mL H2O flush q 6 hours; goal is 2500mL fluid intake/ day. 6) Weight daily as ordered. Weight / BMI Weight Weight: 88 lb 13.541 oz Body Mass Index (BMI) 23.4 ABG / Lab / Microbiology Data Result Diagrams: 07/07/22 05:50 07/07/22 05:50 D/C Instructions Discharge Diet: - (regular diet - Pivot 1.5 135 ml PRN if you don't eat at least 50 % of a meal. Make sure to keep up your fluid intake up to about 2 liters a day. ) Weight Bearing Status: Weight bearing as tolerated Call your doctor if your incision/area has: Continuous Slow Oozing, Sudden Increased Bleeding, Increased Pain/ Swelling, Increased Redness, Foul Smelling Discharge and Swelling at the incision site Call your doctor if you observe: Fever of 101 or Higher, Inability to urinate, Inability to have a bowel movement, Shortness of breath, Dizziness, Chest pain, Increased palpitations (irregular heartbeat), Calf discomfort and Uncontrolled pain Suture Line Care: Avoid Pulling/Pushing and Avoid Pinching/Bending Cleanse incision/area with: Soap & Water Please Follow Up With: Samantha Osorio MD When: 07/24/2022 at 1 PM. Also follow up with Dr. Schwab (kidney doctor) on 09/28/22 at [address] Jam Verde on at 3:30 PM Meaningful Use Info Meaningful Use Diagnoses (Choose all that apply): None applicable Discharge Plan Admission Admit Date/Time: 06/30/22 15:44 Primary Reason for Your Visit: Debility due to Left mastectomy and arthrogryposis muscular dystrophy. Attending Provider: Anabela Disla Primary Care Provider: Jam Verde Instructions Additional Instructions / Restrictions: 1. You have been a tiffany to have on rehab and we have all appreciated your great attitude. You are well on the way to recovery. 2. There is a problem with your kidneys......you waste magnesium and potassium and you need supplements to keep these lab values within normal limits. You are taking a certain kind of magnesium which is a long acting magnesium. It is Magnesium chloride and it does not tend to cause diarrhea like Magnesium oxide. You already have enough diarrhea and we are having to give you Questran to help firm up the stool. We made an appt for you to see a cigarette packer (kidney doctor) and his name is Dr. Schwab. He sees patients at the hospital here so it will be convenient. He is very nice and I think you will like him.....I like him a lot and respect him as a doctor. 3. Check you breast incision every day. If the incision starts to open up, or there is redness around the incision or increased swelling let Dr. Osorio know as soon as possible. Also let her know if you are having fevers, sweats or shaking chills. You may have sweats and hot flashes because of the Tamoxifen but, you should not have fevers. Tamoxifen is an anti-estrogen so it essentially puts you into chemical menopause. It can in some people cause blood clots so keep moving. If you develop pain or swelling in the calves, chest pain, shortness of breath or start coughing up blood call Dr. Verde and be seen. 4. You will also need to follow up with Dr. Perez and [place]. 5. The path report on the lymph nodes that were removed from the Left armpit showed all the lymph nodes were negative for cancer. 6. If you have any questions after you leave rehab please do not hesitate to call me. 7. The wound on the R leg will be completely healed soon. Cleanse the wound once a day and then apply adaptic and cover with a dry dressing. After the wound is healed wait at least 1 month prior to putting your brace on and make sure to pad the brace very well and do not wear the brace for more than 30 minutes at a time initially. 8. Dr. Verde will want to check some lab in about 7-10 days to check the BMP and the magnesium. OFFICE: [phone]. CELL: [phone] Discharge Orders/Prescriptions Prescriptions: New loperamide 2 mg Capsule 4 mg PO Q4H PRN PRN (Reason: Diarrhea) Qty: 0 0RF potassium chloride 20 mEq/15 mL Liquid 30 meq PO BIDCM Qty: 1200 0RF Rx Instructions: Take 20 CC PO BID or give via PEG pantoprazole 40 mg Tablet,Delayed Release (Dr/Ec) 40 mg PO BID Qty: 60 0RF Mag 64 64 mg Tablet,Delayed Release (Dr/Ec) 128 mg PO TID Qty: 180 0RF tramadol 50 mg Tablet 50 - 100 mg PO Q6H PRN PRN (Reason: PAIN 4-10) Qty: 28 0RF tamoxifen 10 mg Tablet 10 mg PO DAILY Qty: 30 0RF Pivot 1.5 Herbie 0.09 gram- 1.5 kcal/mL Liquid 1 ml G-tube HS PRN (Reason: Poor PO intake/pt request) Qty: 135 0RF Pivot 1.5 Herbie 0.09 gram- 1.5 kcal/mL Liquid 135 ml G-tube TID@0600,1400,2000 PRN (Reason: GIVE IF MEAL INTAKE <50%/pt re) Qty: 135 0RF Adrian (with collagen) 7-7-1.5 gram Powder In Packet 1 packet G-tube BIDCM Qty: 60 0RF promethazine 12.5 mg suppository 12.5 mg MN TID PRN (Reason: nausea/vomiting) Qty: 12 0RF Rx Instructions: do not give 3rd daily dose after evening meal or within 4hr before bed Continued ascorbic acid (vitamin C) 500 mg tablet 500 mg PO BIDCM spironolactone 25 mg tablet 25 mg PO BID Qty: 60 0RF zinc sulfate 50 mg zinc (220 mg) capsule 220 mg PO DAILY Qty: 30 0RF vitamin E (dl, acetate) 180 mg (400 unit) capsule 400 units PO DAILYCM Qty: 30 0RF Changed calcitriol 0.5 mcg capsule 0.5 mcg PO DAILY Qty: 30 0RF cholestyramine (with sugar) 4 gram powder in packet 8 g PO TIDAC Qty: 90 0RF Discontinued lidocaine-prilocaine 2.5-2.5 % cream 1 applic topical ONCE PRN (Reason: port access) 30 Days Qty: 30 2RF ondansetron 8 mg tablet,disintegrating 8 mg PO Q8H PRN (Reason: nausea and vomiting) Qty: 30 2RF loperamide 2 mg Capsule 4 mg PO Q4H PRN PRN (Reason: Diarrhea) Qty: 30 0RF potassium chloride 20 mEq/15 mL liquid 40 meq PO BIDCM pantoprazole 20 mg tablet,delayed release (DR/EC) 40 mg PO BID mirtazapine 15 mg tablet 22.5 mg PO QHS heparin, porcine (PF) 10 unit/mL syringe 50 units IV UD Mag 64 64 mg tablet,delayed release (DR/EC) 128 mg PO BID Pivot 1.5 Herbie 0.09 gram- 1.5 kcal/mL liquid 35 ml G-tube QHS Rx Instructions: 35 cc/hr with 60 cc water flush q6H. to be scheduled at start at 2200 and stop at 0600 No Action acetaminophen 650 mg/20.3 mL Solution 1,000 mg PO Q8H PRN (Reason: Pain 1-10 Or Fever) Qty: 0 0RF Referrals / Follow Up: Jam Verde MD [Primary Care Provider] - 07/14/22 3:30 pm () Arnol Schwab MD [Med Staff - Consulting] - 09/28/22 2:00 pm (Paperwork will be mailed to your home, please complete and bring to appointment.) Samantha Osorio MD [Med Staff - Active Staff] - 07/24/22 1:00 pm Disposition Disposition (needs filled in before D/C Order can be placed): Home Health Service Charges/Coding Visit Charges Inpatient E&M: 44049 Disch Hosp >30min
[2022-07-13] MEDS: 0.9% Saline Lock 10 ML Syringe IV (15:03)
[2022-07-13 15:37] VITALS: BP 115/72; PULSE 93; RESP 16; TEMP 36.8; O2SAT 96
--- NOTE | 2022-07-13 15:38 | NURSING ---
discharged home with family. Discharge instructions, medications and appointments reviewed with pt. denies questions or concerns
== END 2022-07-13 15:40 | disposition home health service (06) | DRG 949 ==
PROVIDERS: Admitting Provider Internal Medicine; PCP Family Medicine; Visit Provider Internal Medicine
DX: Z48.3 Aftercare following surgery for neoplasm (principal); K65.1 Peritoneal abscess; E43 Unspecified severe protein-calorie malnutrition; K26.4 Chronic or unspecified duodenal ulcer with hemorrhage; C77.3 Secondary and unspecified malignant neoplasm of axilla and upper limb lymph nodes; L97.229 Non-pressure chronic ulcer of left calf with unspecified severity; L97.219 Non-pressure chronic ulcer of right calf with unspecified severity; C50.912 Malignant neoplasm of unspecified site of left female breast; G71.09 Other specified muscular dystrophies; Z93.1 Gastrostomy status; K57.30 Diverticulosis of large intestine without perforation or abscess without bleeding; K21.9 Gastro-esophageal reflux disease without esophagitis; F41.9 Anxiety disorder, unspecified; E55.9 Vitamin D deficiency, unspecified; Q68.8 Other specified congenital musculoskeletal deformities; Z90.12 Acquired absence of left breast and nipple; Z80.3 Family history of malignant neoplasm of breast; Z79.01 Long term (current) use of anticoagulants; F32.A Depression, unspecified; Z79.899 Other long term (current) drug therapy; Z68.23 Body mass index [BMI] 23.0-23.9, adult
CPT/HCPCS: 80048; 80053; 82306; 83735; 84100; 85014; 85018; 85025; 94668; 97110; 97140; 97163; 97166; 97530; 97535; 97802; 97803; J7030; J7050; A4216

== ENCOUNTER → 2022-07-14 | Outpatient (CLI) | payer OTHER, SELFPAY ==
[2022-07-14 18:14] LABS: Absolute Lymphocyte Count 1.86 X10^3/uL (0.83-4.51); Absolute Neutrophil Count 6.3 X10^3/uL (2.0-7.7); Basophil# 0.08 X10^3/uL; Basophil% 0.9 % (0-1); Eosinophil# 0.13 X10^3/uL; Eosinophils% 1.4 % (0-5); Hematocrit 36.3 % (37-47); Hemoglobin 11.7 g/dL (12.0-15.0); Lymphocyte # 1.86 X10^3/ul (0.83-4.51); Lymphocyte % 20.5 % (19-41); Mean Corp Hgb Conc 32.2 g/dL (32-36); Mean Corpuscular Hgb 31.1 pg (27.0-32.0); Mean Corpuscular Volume 96.5 fL (81-99); Mean Platelet Vol. 9.1 fl (6.2-12.0); Monocyte# 0.69 X10^3/uL; Monocyte% 7.6 % (0-10); NRBC Flagged by Analyzer 0 % (0-5); Neutrophil # 6.29 X10^3/uL (2.7-7.7); Neutrophil % 69.3 % (47-70); Platelet Count 593 K/mm3 (150-450); RBC Distribution Width SD 57.4 fl (35.1-43.9); Red Blood Count 3.76 M/mm3 (4.2-5.4); White Blood Count 9.1 K/mm3 (4.4-11.0)
[2022-07-14 19:01] LABS: ALB/GLOB Ratio 0.9 RATIO (0.9-2.4); AST(SGOT) 57 U/L (15-37); Alanine Aminotransfer ALT/SGPT 89 U/L (13-56); Albumin, Serum 3.5 g/dL (3.2-5.0); Alkaline Phosphatase 193 U/L (45-117); Anion Gap 11 (5-15); BUN 31 mg/dL (7-18); BUN/Creat Ratio 58.4 RATIO (10-20); Chloride 102 mmol/L (98-107); Creatinine, Serum 0.53 mg/dL (0.55-1.02); EST Glomerular Filtration Rate 133 mL/min (>60); Est Glom Filt Rate - Afr Amer 161 mL/min (>60); Globulin 3.9 g/dL (2.2-4.2); Glucose 104 mg/dL (74-106); Magnesium 1.8 mg/dL (1.6-2.6); Potassium 3.7 mmol/L (3.5-5.1); Prealbumin 41.6 mg/dL (20.0-40.0); Protein, Total 7.4 g/dL (6.4-8.2); Sodium Level 136 mmol/L (136-145)
== END | disposition home or self-care (01) ==
LOC: MFPLAB 16:42
PROVIDERS: PCP Family Medicine; Referring Provider Family Medicine; Visit Provider Family Medicine
DX: E46 Unspecified protein-calorie malnutrition (principal); Z93.1 Gastrostomy status; C50.919 Malignant neoplasm of unspecified site of unspecified female breast; E87.8 Other disorders of electrolyte and fluid balance, not elsewhere classified
CPT/HCPCS: 36415; 80053; 83735; 84134; 85025

== ENCOUNTER 2022-07-19 13:35 | Outpatient (RCR) | payer OTHER, SELFPAY | END 2022-07-25 23:59 | LOC: NS 13:35 | PROVIDERS: PCP Family Medicine; Visit Provider Internal Medicine Hematology & Oncology | DX: Z71.3 Dietary counseling and surveillance (principal); R63.4 Abnormal weight loss; C50.912 Malignant neoplasm of unspecified site of left female breast | CPT/HCPCS: 97803 ==

== ENCOUNTER 2022-07-31 10:10 | Outpatient (RCR) | payer OTHER, SELFPAY | END 2022-08-25 23:59 | LOC: NS 10:10 | PROVIDERS: PCP Family Medicine; Visit Provider Internal Medicine Hematology & Oncology | DX: Z71.3 Dietary counseling and surveillance (principal); C50.912 Malignant neoplasm of unspecified site of left female breast; R63.4 Abnormal weight loss | CPT/HCPCS: 97803 ==

== ENCOUNTER → 2022-08-03 | Outpatient (CLI) | payer OTHER, SELFPAY ==
--- NOTE | 2022-08-03 09:24 | BD_ITS ---
STUDY: DUAL ENERGY X-RAY ABSORPTIOMETRY / DXA REASON FOR EXAM: Female, 41 years old. BASELINE ON HORMONAL RX TECHNIQUE: Bone Mineral Density (BMD) measurements of right forearm and bilateral hips were obtained. COMPARISON: None. FINDINGS: Left Femur Total: g/cm2 (0.679) / T-score (-2.2) / Z-score (-1.9) Left Femoral Neck: g/cm2 (0.667) / T-score (-1.6) / Z-score (-1.3) Right Femur Total: g/cm2 (0.620) / T-score (-2.6) / Z-score (-2.4) Right Femoral Neck: g/cm2 (0.547) / T-score (-2.7) / Z-score (-2.3) Right Forearm: g/cm2 (0.479) / T-score (0.6) / Z-score (1.0) BD/Dexa Bone Density Study IMPRESSION: The patient is considered osteoporotic as outlined below according to World [place] Organization (WHO) criteria with a high fracture risk Reference Information: The T-score is the number of standard deviations above or below the standard which is normal for young adults at their peak bone mineral density. The World Health Organization (WHO) interprets the T-scores as follows: Above -1 Normal bone density Between -1 and -2.5 Osteopenia Equal to / or below -2.5 Osteoporosis As a practical clinical guideline, osteopenia may be graded as follows: Mild -1 through -1.5 Moderate -1.6 through -2.0 Severe -2.1 through -2.4 The Z-score is the number of standard deviations above or below age-matched controls. A Z-score of less than -1.5 would be considered abnormal. References: 1. NIH Osteoporosis and Related Bone Diseases www osteo.org 2. International Society for Clinical Densitometry www iscd.org 3. National Osteoporosis Foundation www nof.org Electronically Signed: Michael Bal MD at 10:27 EST ,
--- NOTE | 2022-08-03 09:39 | ECHODONC_ITS ---
Reason For Study: Breast CA, high risk meds Procedure This was a 2D Doppler, Color Flow transthoracic echocardiogram. Myocardial strain analysis was performed in this exam to aid in the assessment of cardiac function. The study was technically difficult. Exam performed in department. Left Ventricle Normal LV size. Left ventricular systolic function is normal. The estimated ejection fraction is 60 %. The global longitudinal strain = -17.8 % (normal). Normal diastololic function. No regional wall motion abnormalities noted. Right Ventricle Normal RV size. Normal systolic function. Atria The left and right atria are normal. Mitral Valve Normal mitral valve. Trivial mitral valve insufficiency. Tricuspid Valve Normal tricuspid valve. Aortic Valve The aortic valve is not well visualized in the short axis view. There is no aortic stenosis. No aortic valve insufficiency. Pulmonic Valve The pulmonic valve is not well visualized. Great Vessels Normal aortic root. Pericardium/Pleural No pericardial effusion. MMode/2D Measurements & Calculations LVIDd: 3.3 cm IVSd: 0.82 cm Ao root diam: 2.3 cm LVIDs: 1.5 cm LVPWd: 0.74 cm RVDd: 2.6 cm FS: 54.9 % LAV(MOD-bp): 13.7 ml LVAd ap4: 19.3 cm2 LVAd ap2: 13.2 cm2 LAV(MOD-bp) Indexed: 12.2 ml/m2 LVLd ap4: 7.0 cm LVLd ap2: 5.9 cm LAV(MOD-sp2): 7.2 ml EDV(MOD-sp4): 44.7 ml EDV(MOD-sp2): 25.0 ml LAV(MOD-sp4): 18.6 ml EDV(sp4-el): 45.6 ml EDV(sp2-el): 25.4 ml LVAs ap4: 11.8 cm2 LVAs ap2: 7.6 cm2 LVLs ap4: 6.3 cm LVLs ap2: 5.2 cm ESV(MOD-sp4): 18.7 ml ESV(MOD-sp2): 9.6 ml ESV(sp4-el): 18.9 ml ESV(sp2-el): 9.4 ml EF(MOD-sp4): 58.2 % EF(MOD-sp2): 61.7 % EF(sp4-el): 58.5 % SV(MOD-sp4): 26.0 ml SV(MOD-sp2): 15.4 ml SV(sp4-el): 26.7 ml LA dimension(2D): 2.2 cm LA A4 area: 9.4 cm2 Doppler Measurements & Calculations MV E max shad: 64.3 cm/sec Lat Peak E' Shad: 8.3 cm/sec Med Peak E' Shad: 5.4 cm/sec MV A max shad: 54.5 cm/sec E/E' lat: 7.7 E/E' med: 11.9 MV E/A: 1.2 Ao V2 max: 86.1 cm/sec LV V1 max: 68.3 cm/sec Ao max P.0 mmHg LV V1 max P.9 mmHg ECHO/ONC Echo Complete Interpretation Summary Left ventricular systolic function is normal. The estimated ejection fraction is 60 %. The global longitudinal strain = -17.8 % (normal). Trivial mitral valve insufficiency. Ordering Physician: Theodore Perez Referring Physician: Jam Verde MD Performed By: Jimena Montemayor RDCS
== END | disposition home or self-care (01) ==
LOC: OPBD 09:15
PROVIDERS: PCP Family Medicine; Visit Provider Internal Medicine Hematology & Oncology
DX: C77.3 Secondary and unspecified malignant neoplasm of axilla and upper limb lymph nodes (principal); C50.912 Malignant neoplasm of unspecified site of left female breast; Z79.811 Long term (current) use of aromatase inhibitors; Z79.899 Other long term (current) drug therapy; Z51.81 Encounter for therapeutic drug level monitoring
CPT/HCPCS: 77080; 93306; 93356

== ENCOUNTER → 2022-08-16 | Outpatient (CLI) | payer OTHER, SELFPAY ==
--- NOTE | 2022-08-16 10:54 | US_ITS ---
STUDY: ULTRASOUND BREAST - LEFT REASON FOR EXAM: Female, 41 years old. Left axillary lymph node. Known seroma. TECHNIQUE: Axial and longitudinal images of the LEFT breast were performed with a high resolution ultrasound transducer. # OF IMAGES: 64 COMPARISON: None. FINDINGS: LEFT Breast: Imaging of the left axilla was obtained. There is evidence of a 1.4 cm x 0.9 cm x 0.8 cm seroma. Adjacent to this, there is a 7 mm x 9 mm x 4 mm lymph node. A tissue marker clip is seen within it. US/Breast Limited Unilateral IMPRESSION: 1.4 cm x 0.9 cm x 0.8 cm seroma in the axilla. 7 mm x 9 mm x 4 mm lymph node is seen adjacent to this. A tissue clip marker is seen within. ASSESSMENT CATEGORY: BIRADS Category 2: Benign. A letter regarding these results will be sent to the patient by the facility within 30 days. Electronically Signed: Michael Bal MD at 12:10 EDT ,
== END | disposition home or self-care (01) ==
LOC: OPUS 10:53
PROVIDERS: PCP Family Medicine; Visit Provider Surgery
DX: C50.912 Malignant neoplasm of unspecified site of left female breast (principal)
CPT/HCPCS: 76642

== ENCOUNTER 2022-08-17 09:47 | Day surgery (SDC) | payer OTHER, SELFPAY ==
--- NOTE | 2022-08-17 | IMM_PTH ---
PATIENT: AMINA ESPOSITO LOC: [facility] [place] U#:[id number] AGE/SX: 41/F ROOM: RE08/17/[address]: Dr. Samantha Osorio MD : 1980 BED: DIS: 08/17/2022 SPEC #: [id number] RECD: 08/21/22 12:40 STATUS: DANYELLE REQ #: [id number] ABBY: 08/17/22 00:[address]: Samantha Osorio DEPT: IMMUNOHISTOCHEMISTRY RECD BY: Meseret De La Cruz ENTERED: 08/21/22 12:41 SP TYPE: IMMUNO OTHR DR: Dr. Jam Verde MD Tissues: B - Axillary lymph node, NOS Procedures: CK7 (add) Pankeratin (initial) PHYSICIAN & INSTITUTION [place] [id number] SPECIMEN INFORMATION: Tissue Source: B ? Left axillary lymph node Clinical Info: Status post left mastectomy, left breast cancer Specimen Number: [id number] B1 & B2 CPT code: 01596 x2, 32220 x2 METHODOLOGY: Deparaffinized sections of prefer/formalin-fixed tissue or PAP/DQ stained slides are incubated with monoclonal/polyclonal antibodies/oligonucleotide probes. Localization is made via biotin free immunoperoxidase method. Appropriate controls are performed and reacted as expected. Results on target cell population are indicated in the following table: RESULTS: ANTIBODY / CLONE RESULT Block B1 AE1-3 (AE1/AE3/PCK26) negative CK7 (OV-TL12/30) negative Block B2 AE1-3 (AE1/AE3/PCK26) negative CK7 (OV-TL12/30) negative These tests were developed and their performance characteristics determined by [facility]. They may not have been cleared or approved by the U.S. Food and Drug Administration. The FDA has determined that such clearance or approval is not necessary. The above immunohistochemical/dualISH markers are ordered and reviewed by the Pathologist. INTERPRETATION: B. Left axillary lymph node, biopsy: Four out of four lymph nodes, negative for metastatic carcinoma. SJ:silvia 08/22/2022
[2022-08-17 10:15] VITALS: BP 104/60; PULSE 89; RESP 12; TEMP 37.2; O2SAT 98; BMI 22.8
[2022-08-17 10:17] LABS: Internal QC Validated? YES +Cl - CLEAR BKGD; Pregnancy, Urine Negative Negative
[2022-08-17] MEDS: Lactated Ringers 1,000 ML 15 ML IV (10:41)
--- NOTE | 2022-08-17 11:59 | HP.PCM.SX_ITS ---
HPI - General General Date of Admission: 08/17/22 HPI Narrative BERE ESPOSITO, is a 41 F who presents for excisional left axillary node ultrasound-guided needle localization. Patient is status post left mastectomy Lymph node dissection. 6/6 nodes were negative for carcinoma. Patient is not a candidate for adjuvant and also had a complete response as far as the breast lesion was concerned. Patient did previously have a clip node prior to planned radiation CT was suspicious whether we had the actual clip note out. Did get an ultrasound which showed there is still a lymph node with a clip in it near the seroma. [facility] Medical History (Updated 08/16/22 @ 14:53 by Bere Camp) Alcohol use Anemia Anemia Anxiety Arthritis Arthrogryposis Blackout Braces as ambulation aid Breast cancer, left breast Cardiology follow-up encounter CINV (chemotherapy-induced nausea and vomiting) CPAP (continuous positive airway pressure) dependence Dehydration Depression Diarrhea Diarrhea due to drug Elevated C-reactive protein (CRP) (12/26/21) Encounter for chemotherapy management Encounter for education Encounter for monitoring cardiotoxic drug therapy Gastric reflux Heartburn History of diverticulitis History of echocardiogram History of edema History of irregular heartbeat History of renal disease Hypokalemia Hypomagnesemia Leg sore Localized peritonitis Lung nodule, multiple Mucositis (ulcerative) due to antineoplastic therapy Mucositis (ulcerative) due to antineoplastic therapy Muscular dystrophy Muscular dystrophy Nausea Non-smoker Open wound Oral candidiasis Osteoporosis PEG (percutaneous endoscopic gastrostomy) adjustment/replacement/removal Phlegmonous peritonitis Port-A-Cath in place Sepsis without acute organ dysfunction Thrombocytosis Thrombocytosis Uses wheelchair Vitamin D deficiency Wears glasses Home Medications ascorbic acid (vitamin C) 500 mg tablet 500 mg PO BIDCM supplement 06/30/22 [History Last Taken 06/30/22 09:00] calcitriol 0.5 mcg capsule 0.5 mcg PO DAILY #30 caps 07/12/22 [Rx Last Taken Unknown] magnesium chloride 64 mg (magnesium chloride) tablet,delayed release (Mag 64) 128 mg PO TID #180 tabs 07/12/22 [Rx Last Taken Unknown] pantoprazole 40 mg tablet,delayed release 40 mg PO BID #60 tabs 07/12/22 [Rx Last Taken Unknown] spironolactone 25 mg tablet 25 mg PO BID Check with primary doctor #60 tabs 07/12/22 [Rx Last Taken Unknown] tramadol 50 mg tablet 50 - 100 mg PO Q6H PRN PRN PAIN 4-10 #28 tabs 07/12/22 [Rx Last Taken Unknown] vitamin E (dl, acetate) 180 mg (400 unit) capsule 400 units PO DAILYCM supplement #30 caps 07/12/22 [Rx Last Taken 06/30/22 09:00] zinc sulfate 50 mg zinc (220 mg) capsule 220 mg PO DAILY supplement #30 caps 07/12/22 [Rx Last Taken 06/30/22 09:00] potassium chloride 20 mEq/15 mL oral liquid 30 meq feeding tube BIDCM 08/16/22 [History Last Taken Unknown] tamoxifen 20 mg tablet 20 mg PO QHS 08/16/22 [History Last Taken Unknown] Allergy/AdvReac Type Severity Reaction Status Date / Time kiwi Allergy Mild Anaphylaxis Verified 08/17/22 10:15 Penicillins Allergy Mild Anaphylaxis Verified 08/17/22 10:15 Gadolinium-MRI Contrast AdvReac Shortness Verified 08/17/22 10:15 Medium of breath [contrast dye] Family History Mother Diabetes Hypertension High cholesterol Thyroid disorder Uncle Cancer non-hodgkins lymphoma Grandfather Heart disease Grandmother Heart disease Brother Hypertension Unknown Breast cancer mother had 2 cousins with aggressive breast cancer Unknown Thyroid cancer maternal cousin Other Arthritis Depression Surgical History H/O release of tendon History of colonoscopy History of lymph node biopsy History of lymph node dissection of axilla History of spinal fusion S/P left mastectomy Social History household members: family current occupational status: employed current occupation: [employer] Smoking Status: Never smoker alcohol intake: current alcohol intake frequency: holidays/special occasions only details: occasional substance use type: does not use Vital Signs Vital Signs Vital Signs: 08/17/22 10:15 08/17/22 10:15 Temperature 98.9 F Temperature Source Temporal Pulse Rate 89 Respiratory Rate 12 Respiratory Pattern Normal Blood Pressure 104/60 Blood Pressure Mean 74 Blood Pressure Source Monitor Blood Pressure Position Semi-Fowlers Blood Pressure Location Right Arm Pulse Ox 98 Oxygen Delivery Method Room Air Weight Weight: 88 lb Body Mass Index (BMI) 22.8 Physical Exam Narrative Left mastectomy incision well-healed. Const oriented x3 and no apparent distress Resp normal respiratory effort Cardio regular rate Results Lab / Micro Data Labs: Laboratory Results - last 24 hr 08/17/22 10:08: Urine Test Negative Assessment & Plan Assessment/Plan (1) S/P left mastectomy: (2) Breast cancer, left breast: (3) History of lymph node dissection of axilla: PLAN: Plan Did discuss with patient the ultrasound did show a lymph node adjacent to the seroma that did appear to have a clip in it. We will plan for excisional left axillary lymph node with ultrasound needle localization. Risk include not limited to bleeding, infection, need for further surgery. Patient is agreeable plan. Patient will still plan to have radiation treatment once this area is healed. We will send specimen to mammography for x-ray to prove the clip is out as well. Samantha Osorio M.D. Pager: [phone] [facility] [address] [place] [address], [facility], [address] [place] [address] Office: [phone]
--- NOTE | 2022-08-17 12:00 | LYM_PTH ---
PATIENT: AMINA ESPOSITO LOC: [facility] [place] U#:[id number] AGE/SX: 41/F ROOM: RE08/17/[address]: Dr. Samantha Osorio MD : 1980 BED: DIS: 08/17/2022 SPEC #: [id number] RECD: 08/17/22 13:14 STATUS: DANYELLE REQ #: [id number] ABBY: 08/17/22 12:[address]: Samantha Osorio DEPT: SURGICAL PATHOLOGY RECD BY: Leonela Shaikh ENTERED: 08/17/22 13:32 SP TYPE: LYM NODES OTHR DR: Dr. Jam Verde MD Tissues: A - Axillary lymph node, NOS B - Axillary lymph node, NOS Procedures: Surgery Specimen Level IV Surgery Specimen Level V HEADER OPERATION: Excision of axillary lymph node with ultrasound-guided needle localization PRE-OP DIAGNOSIS: Status post left mastectomy, breast cancer left breast TISSUE SUBMITTED: A - Left axillary lymph node, B - Left axillary lymph node MICROSCOPIC DIAGNOSIS A. Left axillary lymph node, excision with ultrasound-guided needle localization: Adipose tissue with focal fat necrosis. See comment. B. Left axillary lymph node, excision: Four out of four lymph nodes, negative for metastatic carcinoma. See comment. SJ:rg 08/21/2022 COMMENT A. No lymph node tissue is identified. B. Immunohistochemistry ([id number]) supports the above diagnosis. One lymph node shows focal changes consistent with previous biopsy site. Please make reference to previous specimen ([id number]) left breast, mastectomy and axillary node dissection with diagnosis of ?negative for residual invasive carcinoma and six out of six lymph nodes, negative for metastatic carcinoma.? Case has been reviewed in consultation with Dr. Jones who concurs with the above diagnosis. IDC:AM MICROSCOPIC DESCRIPTION Slides are reviewed. GROSS DESCRIPTION A - Received in fixative is one container labeled with the patient's name and designated left axillary lymph node. The specimen consists of a piece of adipose tissue with needle localization measuring 2.5 x 2.5 x 1.5 cm. Sections reveal yellow adipose cut surfaces without any obvious lymph node. The entire specimen is submitted in four cassettes. B - Received in fixative is one container labeled with the patient's name and designated left axillary lymph node. The specimen consists of a piece of adipose tissue measuring 2.5 x 1.5 x 1.5 cm. The specimen is serially sectioned and submitted entirely in one cassette. Multiple marcella are noted in the specimen. As per requisition, this specimen contains a clip. The entire specimen is submitted in three cassettes. / DONNELL:silvia 08/18/2022 TC:5 CPT: 01435, 02574
[2022-08-17] MEDS: Clindamycin 900 MG/50 ML BAG 75 MG IV (12:03)
--- NOTE | 2022-08-17 13:06 | BI_ITS ---
SURGICAL BREAST SPECIMEN RADIOGRAPH CLINICAL: Document presence of tissue clip marker in biopsy specimen. FINDINGS: Specimen shows presence of tissue clip marker. Electronically Signed: Michael Bal MD at 14:23 EDT , BI/Breast Biopsy Specimen IMPRESSION: undefined
[2022-08-17] MEDS: Bupiv/Epi 0.25% 30 ML Vial (13:40)
--- NOTE | 2022-08-17 13:41 | OP.PCM_ITS ---
Report of Operation Date of Procedure: 08/17/22 Pre-Operative Diagnosis: Left breast cancer, metastasis to regional lymph node, status post neoadjuvant Post-Operative Diagnosis: Same Surgery/Procedure Performed:: Excision of left axillary lymph node with ultrasound guided wire localization Surgeon: Samantha Osorio Type of Anesthesia: General/Supplemental Anesthesiologist: Ney Rai Special Medications: Clindamycin 900 mg IV x1 Specimen's removed: Left axillary previously clipped lymph node?confirmed by x- ray Estimated Blood Loss (mL): < 10 cc Description of Procedure: Patient brought operating room placed spine on operating table. Timeout was completed verifying correct patient, procedure, site, positioning, special, prior beginning procedure. General anesthesia was induced. The left axilla/chest was prepped draped in usual fashion with correct skin. Ultrasound used to localize the previous clip node. Kopan's needle was placed inferior to the clip node as seen with ultrasound. Incision was made overlying this node extending the previous mastectomy incision by about a centimeter and half with a 15 blade scalpel. Dissection was deepened with electrocautery following the wire. The target node was excised and sent to mammography?biopsy clip was confirmed. The area was irrigated. Hemostasis achieved with electrocautery. The space was closed down with interrupted sutures of 3-0 Vicryl. Incision closed with subdermal sutures of 3-0 Vicryl and 4-0 Monocryl at the skin. Dermabond was placed. Pressure dressing was also placed over the top with gauze and tape. Patient tolerated procedure well was taken to the postanesthesia care unit in stable condition. Complications none
--- NOTE | 2022-08-17 13:46 | EX.PCM.DISCH ---
Discharge Instructions Diet Discharge Diet: No restrictions Activity Discharge Activity: May Not Drive (for 2-3 days or while taking narcotic pain meds.) May shower in (days): 1 Lifting Restrictions: 10 pounds for 1 week. Dressing / Incision Call your doctor if your incision/area has: Continuous Slow Oozing, Sudden Increased Bleeding, Increased Pain/ Swelling and Increased Redness Call your doctor if you observe: Fever of 101 or Higher Suture Line Care: Avoid Pulling/Pushing and Avoid Pinching/Bending Remove Dressing in: 1 day Additional Dressing/Incision Instructions:: Remove pressure dressing in 1 to 2 days. Dermabond (glue) was used at the axillary incision this may start to peel off in about 5 days. Would continue pressure dressing to this part of the incision as tolerated. If the tape is causing issue with the incision try an Chadwick wrap without tape and ABD pad. As I do not want skin to be irritated prior to radiation. Follow Up Care Please Follow Up With: Samantha Osorio MD When: Please call [phone] for an appointment to be seen in 1-2 week. Test Results: Test results from this visit will be discussed in further detail at your follow-up appointment, if applicable. Discharge Plan Admission Attending Provider: Samantha Osorio Primary Care Provider: Jam Verde Discharge Orders/Prescriptions Prescriptions: New oxycodone-acetaminophen 5-325 mg tablet 1 tab PO Q6H PRN (Reason: pain) 3 Days Qty: 5 0RF Continued ascorbic acid (vitamin C) 500 mg tablet 500 mg PO BIDCM pantoprazole 40 mg Tablet,Delayed Release (Dr/Ec) 40 mg PO BID Qty: 60 0RF Mag 64 64 mg Tablet,Delayed Release (Dr/Ec) 128 mg PO TID Qty: 180 0RF tramadol 50 mg Tablet 50 - 100 mg PO Q6H PRN PRN (Reason: PAIN 4-10) Qty: 28 0RF spironolactone 25 mg tablet 25 mg PO BID Qty: 60 0RF calcitriol 0.5 mcg capsule 0.5 mcg PO DAILY Qty: 30 0RF zinc sulfate 50 mg zinc (220 mg) capsule 220 mg PO DAILY Qty: 30 0RF vitamin E (dl, acetate) 180 mg (400 unit) capsule 400 units PO DAILYCM Qty: 30 0RF potassium chloride 20 mEq/15 mL liquid 30 meq feeding tube BIDCM Rx Instructions: Take 20 CC PO BID or give via PEG tamoxifen 20 mg tablet 20 mg PO QHS Other Ambulatory Orders: ,Urine (Routine) Timeframe: 20220817 Facility: [facility] - Location: Laboratory Ordered By: Dr. Miko Cohen Referrals / Follow Up: Jam Verde MD [Primary Care Provider] - Disposition Disposition (needs filled in before D/C Order can be placed): Home, Self Care
[2022-08-17 13:52] VITALS: BP 104/60; BP 121/62; PULSE 99; RESP 16; TEMP 36.4; O2SAT 100
[2022-08-17 14:00] VITALS: BP 104/60; BP 122/64; PULSE 104; RESP 18; O2SAT 100
[2022-08-17 14:08] VITALS: BP 104/60; BP 105/67; PULSE 92; RESP 18; TEMP 36.7; O2SAT 100
[2022-08-17] MEDS: 0.9% Saline Lock 10 ML Syringe IV (15:00)
[2022-08-17 15:30] VITALS: BP 100/50; BP 104/60; PULSE 89; RESP 16; TEMP 36.6; O2SAT 100
== END 2022-08-17 15:45 | disposition home or self-care (01) ==
LOC: SDC 09:49 → AC 09:50
PROVIDERS: Anesthesiology; PCP Family Medicine; Referring Provider Surgery; Visit Provider Surgery
PROC: (CPT 38745; principal; 2022-08-17 11:45)
DX: C50.912 Malignant neoplasm of unspecified site of left female breast (principal); C77.3 Secondary and unspecified malignant neoplasm of axilla and upper limb lymph nodes; Z93.1 Gastrostomy status; Z90.12 Acquired absence of left breast and nipple; Z79.810 Long term (current) use of selective estrogen receptor modulators (SERMs)
CPT/HCPCS: 38745; 01610; 76098; 81025; 88305; 88307; 88341; 88342; A4648; J7120; A4216; J2405

== ENCOUNTER 2022-09-08 08:00 | Outpatient (RCR) | payer OTHER, SELFPAY ==
--- NOTE | 2022-08-03 15:52 | HP.OTEVAL_ITS ---
Patient's Visit Information AMINA ESPOSITO is a 41 year old F, referred to Occupational Therapy by Dr. Klaus Cartagena DO, with a diagnosis of left breast metastatic cancer. Date of Evaluation: 08/03/22 Occupational Therapist: Marianna Vargas, JANETT/Mary, CHT - Subjective DX per oncology report 41-year-old female with clinical stage IIB (T2,N1, M0) invasive ductal carcinoma of the left breast, nuclear grade 2-3,ER positive (over 95% moderate), FL positive (over 95% strong) HER2/edgardo overexpressed 3+, Ki-67 +40%. No first-degree relatives with breast cancer, but has second-degree maternal side 2 cousins with history of breast cancer. Genetic testing ([employer]) showed no known deleterious mutation. PET/CT for initial staging showed no evidence for distant metastatic disease. Started neoadjuvant systemic therapy with [facility] February 28, 2022. Received total 4 cycles by April 2022 and then treatment was stopped due to excessive toxicity mainly GI, malnutrition and failing performance status. During this illness her depression decompensated at least partly because she stopped her treatment. She ended up in a rehab unit and needed a PEG tube for nutritional support. She then was placed on hormonal therapy with tamoxifen while in the rehab unit and awaiting definitive surgery. June 27, 2022 she underwent left mastectomy with full axillary dissection and was found to be in complete pathologic remission although on the 6 lymph nodes were found in the dissected tissue. pt arrives for OT eval for above dx and ed. on lymphedema mtg. prior to initiating 5 weeks of radiation. pt arrives with her parents in good spirits. pt in w/c due to MS dx. - ROM ROM Comments: pt demo limited bilateral shoulder ROM due to Muscular dystrophy - Lymphedema (Circumferential Measure) MCP: right 14cm left 15cm Wrist: right 12.5cm left 13cm Lower forearm: right 15cm left 18.5cm Largest forearm: right 19.5cm left 20.5cm Elbow: right 20cm left 21cm Largest humerus: right 21.5cm left 24cm Axcillary: right 23.5cm left 24.5cm Upper Exremity Comments: pt states her left UE has always been larger due to her muscular dystrophy. will use the above for baseline- - Quick DASH-Disab of Arm,Shoulder& Hand Quick DASH Score: 56.8175 - Goals Demonstrate adequate knowledge of self-massage by 2nd week: Yes Demonstrate adequate knowledge skin care/prec by 2nd week: Yes Demonstrate adequate knowledge therapeutic exercises by d/c: Yes Select approp compression garment w/donning/care/wear by d/c: Yes Voice need to replace compression garment every 4-6mo by dc: Yes - Rehabilitation General Assessment: This 41 year old female demo need for skilled OT services to ed. on self manual lymph massage and lymph stimulation ex. to enhance fluid movement prior to and during radiation as well as ed. on lymphedema signs and symptoms. Pt was ed, on compression garments of 20-30mmHg. pt demo understanding and agree to HEP- therapist will hold chart for 8 -10 weeks in case pt needs to return after completion of her radiation. pt agreed to schedule if she would need services otherwise pt demo understanding of signs and symptoms of lymphedema, skin care, and lymph stimulation ex. and self manual lymph massage. Rehabilitation Potential: Good - Anticipated Interventions Education re Diagnosis, Education re Life-long lymphedema Management, Education re Skin Care and Precautions, Education re Self Massage Techniques, Education re Correct Donning Tech,Care&Wearing Sched Comp Garments, Caregiver Training, Home Program - Visit Plan TEXT: Thank you for the opportunity to evaluate your patient. For Medicare and Medicare HMO plans, please review the plan of care and approve it. It will need to be FAXED BACK to us at [phone] for Medicare purposes. Please let me know if there are questions or concerns regarding this plan of care. Physician Signature: Date:
--- NOTE | 2022-11-30 13:36 | HP.OT.NRP ---
Patient Information Patient Information: AMINA ESPOSITO was seen in my office for initial evaluation on 08/03/22. The following Plan of Care was established for this patient: Anticipated Interventions Anticipated Interventions: Education re Diagnosis, Education re Life-long lymphedema Management, Education re Skin Care and Precautions, Education re Self Massage Techniques, Education re Correct Donning Tech,Care&Wearing Sched Comp Garments, Caregiver Training and Home Program Last Seen Last Seen: This patient was last seen in our office 09/08/22. Pertinent comments regarding their Occupational therapy will appear below: pt was seen for 2 OT session and at this time due to time lapse in services pt d/c. At this point I will be discontinuing this patient from occupational therapy. I would be happy to see this patient again in the future if found appropriate by the physician. Thank you! Marianna Vargas, OTR/L, CHT
== END 2022-09-08 19:00 | disposition home or self-care (01) ==
LOC: OT 08:00
PROVIDERS: PCP Family Medicine; Referring Provider Student in an Organized Health Care Education/Training Program; Visit Provider Student in an Organized Health Care Education/Training Program
DX: C50.912 Malignant neoplasm of unspecified site of left female breast (principal); C77.3 Secondary and unspecified malignant neoplasm of axilla and upper limb lymph nodes
CPT/HCPCS: 97166; 97530

== ENCOUNTER → 2022-11-15 | Outpatient (CLI) | payer OTHER, SELFPAY ==
--- NOTE | 2022-11-15 12:42 | ECHODONC_ITS ---
Reason For Study: [employer] Procedure This was a 2D Doppler, Color Flow transthoracic echocardiogram. Myocardial strain analysis was performed in this exam to aid in the assessment of cardiac function. The study was technically difficult. Exam performed in department. Left Ventricle Normal LV size. Left ventricular systolic function is normal. The estimated ejection fraction is 60 %. No regional wall motion abnormalities noted. Right Ventricle Normal RV size. Normal systolic function. Atria Normal left atrium. Normal right atrium. Mitral Valve Normal mitral valve. Tricuspid Valve The tricuspid valve is not well visualized. Mild tricuspid valve insufficiency. Pulmonary artery systolic pressure is 25 mmHg. Aortic Valve Trisinus/trileaflet aortic valve. Pulmonic Valve Normal pulmonic valve. Great Vessels Normal aortic root. The pulmonary artery is normal size. Normal inferior vena cava. Pericardium/Pleural No pericardial effusion. MMode/2D Measurements & Calculations LVIDd: 3.3 cm IVSd: 0.65 cm Ao root diam: 2.3 cm LVIDs: 2.2 cm LVPWd: 0.62 cm RVDd: 2.3 cm FS: 31.4 % LAV(MOD-bp): 15.4 ml LVAd ap4: 20.5 cm2 SV(MOD-sp4): 31.5 ml LAV(MOD-bp) Indexed: 12.4 ml/m2 LVLd ap4: 6.7 cm LAV(MOD-sp2): 13.2 ml EDV(MOD-sp4): 54.1 ml LAV(MOD-sp4): 17.5 ml EDV(sp4-el): 53.5 ml LVAs ap4: 12.6 cm2 LVLs ap4: 5.9 cm ESV(MOD-sp4): 22.5 ml ESV(sp4-el): 22.9 ml EF(MOD-sp4): 58.4 % EF(sp4-el): 57.1 % SV(sp4-el): 30.5 ml LA A4 area: 9.2 cm2 LA dimension(2D): 2.0 cm RA A4 area: 7.1 cm2 Time Measurements MV dec time: 0.13 sec Doppler Measurements & Calculations MV E max shad: 61.0 cm/sec Lat Peak E' Shad: 10.0 cm/sec Med Peak E' Shad: 11.7 cm/sec MV A max shad: 55.6 cm/sec E/E' lat: 6.1 E/E' med: 5.2 MV E/A: 1.1 Ao V2 max: 77.9 cm/sec LV V1 max: 75.3 cm/sec PA V2 max: 79.2 cm/sec Ao max P.4 mmHg LV V1 max P.3 mmHg TR max shad: 236.6 cm/sec TR max P.4 mmHg ECHO/ONC Echo Complete Interpretation Summary Normal LV size. Left ventricular systolic function is normal. The estimated ejection fraction is 60 %. The global longitudinal strain is normal. The global longitudinal strain = -19. 4 % (normal). Compared to previous study, the left ventricular systolic function is the same. . The global longitudinal strain has improved. Ordering Physician: Chelsea Hernandez Referring Physician: Chelsea Hernandez Performed By: Carmen Alejandra RDCS
== END | disposition home or self-care (01) ==
LOC: CVS 12:41
PROVIDERS: PCP Family Medicine; Referring Provider Nurse Practitioner Family; Visit Provider Nurse Practitioner Family
DX: Z51.81 Encounter for therapeutic drug level monitoring (principal); C50.912 Malignant neoplasm of unspecified site of left female breast; Z79.899 Other long term (current) drug therapy
CPT/HCPCS: 93306; 93356

== ENCOUNTER → 2022-12-04 | Outpatient (CLI) | payer OTHER, SELFPAY ==
--- NOTE | 2022-12-04 14:34 | CT_ITS ---
EXAM: CT CHEST WITH INTRAVENOUS CONTRAST CLINICAL INDICATION: F/U LUNG NODULES -- IV CONTRAST ONLY TECHNIQUE: Helically acquired images were obtained of the chest with intravenous contrast. This CT exam was performed using one or more of the following dose reduction techniques: automated exposure control, adjustment of the mA and/or kV according to patient size, and/or use of iterative reconstruction technique. CONTRAST: IV 100mL Isovue-300 RADIATION DOSE: CTDIvol = 8.14 mGy, DLP = 217.83 mGy-cm COMPARISON: 06/08/2022. FINDINGS: LUNGS AND PLEURAL SPACES: Resolution of the previously noted right pleural effusion. Mild scarring or atelectasis in the lingula. No pneumothorax. No pulmonary nodules identified. HEART: Unremarkable. Heart size is normal. No pericardial effusion. MEDIASTINUM: Unremarkable. No mediastinal or hilar adenopathy. Esophagus is unremarkable. No hiatal hernia. THYROID: Unremarkable. No thyroid lesions. BONES/JOINTS: Dextroscoliosis with multilevel fusion unchanged. No suspicious lytic or blastic abnormality. VASCULATURE: Unremarkable. Thoracic aorta is non-dilated. No thoracic aortic dissection. No obvious central pulmonary embolism although this study was not performed with the pulmonary embolism protocol. CT/Chest WITH Contrast IMPRESSION: 1. No pulmonary nodules identified. 2. Resolution of the previously noted right pleural effusion. 3. Dextroscoliosis with multilevel fusion unchanged. 4. Mild scarring or atelectasis in the lingula. Electronically Signed: Ramos Juarez MD at 0:31 EDT ,
[2022-12-04] MEDS: 0.9 % NaCl (Sterile) Posiflush 10 mL IV (14:55)
== END | disposition home or self-care (01) ==
LOC: CT 14:33
PROVIDERS: PCP Family Medicine; Referring Provider Internal Medicine Hematology & Oncology; Visit Provider Internal Medicine Hematology & Oncology
DX: R91.8 Other nonspecific abnormal finding of lung field (principal)
CPT/HCPCS: 71260; Q9967; A4216

== ENCOUNTER → 2023-01-15 | Outpatient (CLI) | payer OTHER, SELFPAY ==
--- NOTE | 2023-01-15 14:28 | BI_ITS ---
MAMMOGRAPHY - UNILATERAL SCREENING: RIGHT BREAST REASON FOR EXAM: Female, 42 years old. Routine annual screening examination (unilateral). PERTINENT HISTORY: Positive history of breast cancer, status post left mastectomy in June 2022. TECHNIQUE: Digital unilateral breast faisal (3D mammographic acquisition) in the CC and MLO projections. 2-D mediolateral oblique (MLO) and craniocaudad (CC) views of the right breast were obtained. CAD: Full Field Digital Mammography with Computer Added Detection was performed. COMPARISON: Left breast diagnostic mammogram from 01/13/2022. Screening mammogram from 01/11/2022, 07/28/2019. FINDINGS: Breast Composition: The breasts are heterogeneously dense, which may obscure small masses. There are no dominant masses or suspicious calcifications. No other significant abnormalities are identified. There has been no significant change since the prior study. BI/SCREEN MAMM (CAD) W/FAISAL UNI R IMPRESSION: Stable unilateral screening mammogram. Yearly follow-up mammogram recommended. (A) ASSESSMENT CATEGORY: BIRADS Category 1: Negative. A letter regarding these results will be sent to the patient by the facility within 30 days. Approximately 10% of breast cancers are not detected by mammography. A normal mammogram should not delay biopsy of a clinically suspicious abnormality. Electronically Signed: Nik Haddad DO at 8:33 EDT ,
== END | disposition home or self-care (01) ==
LOC: OPBI 14:27
PROVIDERS: PCP Family Medicine; Referring Provider Student in an Organized Health Care Education/Training Program; Visit Provider Student in an Organized Health Care Education/Training Program
DX: Z12.31 Encounter for screening mammogram for malignant neoplasm of breast (principal); Z85.3 Personal history of malignant neoplasm of breast
CPT/HCPCS: 77063; 77067

== ENCOUNTER 2023-01-24 10:01 | Outpatient (RCR) | payer OTHER, SELFPAY ==
[2022-05-28 00:32] VITALS: BP 111/77; PULSE 145; RESP 16; TEMP 36.2; BMI 23.2
[2023-01-24 10:12] VITALS: BP 129/85; PULSE 95; RESP 16; TEMP 36.3; BMI 23.8
--- NOTE | 2023-01-24 12:24 | PCM.WC.HP ---
History of Present Illness Date of Service: 01/24/23 Chief Complaint: Right medial leg ulcer History of Wound: 42 year old female presents for evaluation of ulcer to her right medial leg. This ulcer was healed but as she started to wear her leg brace more, it started to reopen. She was diagnosed with left breast invasive ductal carcinoma in 01/16. She was previously seen by me until she ended up hospitalized for and intraabdominal abscess at the end of 05/18. She ended up in the Rehab unit for 3 months and by the time she was discharged, this ulcer was almost healed. She states that it ended up healing but then became very dry and scabby with thick plaques of skin. It then started to have open areas, so she decided to return to the wound healing center for further evaluation. She previously had a biopsy of this leg which showed: Pathology from punch biopsy x 2 on 04/12/22. Right leg superior biopsy (specimen A) showed extensive ulceration and acute and chronic inflammation, negative for malignancy. Inflammation involves full thickness of dermis and superficial adipose tissue. Right leg inferior biopsy (specimen B) showed acute and chronic inflammation, negative for malignancy. Inflammation involves deeper dermis and superficial adipose tissue. A&B Special stains for acid fast bacilli and fungi are negative for organisms. Correlation with clinical findings and appropriate follow up are necessary to rule out pyoderma grangrenosum Patient denies fever, chills, vomiting. She states her appetite has been good. She presents today for further evaluation and treatment. Progress of Wound: Right medial leg ulcer cluster that is superficial. Once all the dry slough was removed she has multiple small, pink, superficial ulcer cluster on her right medial leg. [facility] Medical History (Reviewed 01/26/23 @ 13:36 by Kathrin Calzada COMBINING MACHINE OPERATOR, COMBINING MACHINE OPERATOR-C) Alcohol use Anemia Anemia Anxiety Arthritis Arthrogryposis Blackout Braces as ambulation aid Breast cancer Breast cancer, left breast Cardiology follow-up encounter CINV (chemotherapy-induced nausea and vomiting) CPAP (continuous positive airway pressure) dependence Dehydration Depression Diarrhea Diarrhea due to drug Elevated C-reactive protein (CRP) (12/26/21) Encounter for chemotherapy management Encounter for education Encounter for monitoring cardiotoxic drug therapy Gastric reflux Heartburn History of diverticulitis History of echocardiogram History of edema History of irregular heartbeat History of renal disease Hypokalemia Hypomagnesemia Leg sore Localized peritonitis Lung nodule, multiple Mucositis (ulcerative) due to antineoplastic therapy Mucositis (ulcerative) due to antineoplastic therapy Muscular dystrophy Muscular dystrophy Nausea Non-smoker Open wound Oral candidiasis Osteoporosis PEG (percutaneous endoscopic gastrostomy) adjustment/replacement/removal Phlegmonous peritonitis Port-A-Cath in place Sepsis without acute organ dysfunction Thrombocytosis Thrombocytosis Uses wheelchair Vitamin D deficiency Wears glasses Home Medications ascorbic acid (vitamin C) 500 mg tablet 500 mg PO BIDCM supplement 06/30/22 [History Last Taken 06/30/22 09:00] calcitriol 0.5 mcg capsule 0.5 mcg PO DAILY #30 caps 07/12/22 [Rx Last Taken Unknown] magnesium chloride 64 mg (magnesium chloride) tablet,delayed release (Mag 64) 128 mg (2 x 64 mg) PO TID #180 tabs 07/12/22 [Rx Last Taken Unknown] pantoprazole 40 mg tablet,delayed release 40 mg PO BID #60 tabs 07/12/22 [Rx Last Taken Unknown] spironolactone 25 mg tablet 25 mg PO BID Check with primary doctor #60 tabs 07/12/22 [Rx Last Taken Unknown] tramadol 50 mg tablet 50 - 100 mg (1 - 2 x 50 mg) PO Q6H PRN PRN PAIN 4-10 #28 tabs 07/12/22 [Rx Last Taken Unknown] vitamin E (dl, acetate) 180 mg (400 unit) capsule 400 units PO DAILYCM supplement #30 caps 07/12/22 [Rx Last Taken 06/30/22 09:00] zinc sulfate 50 mg zinc (220 mg) capsule 220 mg (4.4 x 50 mg zinc (220 mg)) PO DAILY supplement #30 caps 07/12/22 [Rx Last Taken 06/30/22 09:00] tamoxifen 20 mg tablet 20 mg PO DAILY #90 tabs 01/22/23 [Rx Last Taken Unknown] Allergy/AdvReac Type Severity Reaction Status Date / Time kiwi Allergy Mild Anaphylaxis Verified 01/24/23 10:23 Penicillins Allergy Mild Anaphylaxis Verified 01/24/23 10:23 Gadolinium-MRI Contrast AdvReac Shortness Verified 01/24/23 10:23 Medium of breath [contrast dye] Family History (Reviewed 01/26/23 @ 13:36 by Kathrin Calzada COMBINING MACHINE OPERATOR, COMBINING MACHINE OPERATOR-C) Mother Diabetes Hypertension High cholesterol Thyroid disorder Uncle Cancer non-hodgkins lymphoma Grandfather Heart disease Grandmother Heart disease Brother Hypertension Unknown Breast cancer mother had 2 cousins with aggressive breast cancer Unknown Thyroid cancer maternal cousin Other Arthritis Depression Surgical History (Reviewed 01/26/23 @ 13:36 by Kathrin Calzada COMBINING MACHINE OPERATOR, COMBINING MACHINE OPERATOR-C) H/O release of tendon History of colonoscopy History of lymph node biopsy History of lymph node dissection of axilla History of spinal fusion S/P left mastectomy Social History (Reviewed 01/26/23 @ 13:36 by Kathrin Calzada COMBINING MACHINE OPERATOR, COMBINING MACHINE OPERATOR-C) household members: family current occupational status: employed current occupation: [employer] Smoking Status: Never smoker alcohol intake: current alcohol intake frequency: holidays/special occasions only details: occasional substance use type: does not use ROS Constitutional Constitutional: Denies fatigue or fever(s) Eyes Eyes: Reports requires corrective lenses ENT HEENT: Reports none Cardiovascular Cardiovascular: Reports as per HPI Respiratory/Chest Respiratory/Chest: Reports as per HPI Gastrointestinal Gastrointestinal: Reports as per HPI Genitourinary Genitourinary: Reports none Musculoskeletal Musculoskeletal: Reports as per HPI Integumentary Integumentary: Reports skin ulcer Neurologic Neurologic: Reports as per HPI Psychiatric Psychiatric: Reports as per HPI Hematologic/Lymphatic Hematologic/Lymphatic: Reports as per HPI Allergic/Immunologic Allergic/Immunologic: Reports as per HPI Vital Signs Vital Signs Vital Signs: 01/24/23 10:12 Temperature 97.4 F L Temperature Source Temporal Pulse Rate 95 Respiratory Rate 16 Blood Pressure 129/85 H Blood Pressure Mean 99 Blood Pressure Source Monitor Blood Pressure Position Sitting Blood Pressure Location Right Arm Oxygen Delivery Method Room Air Weight Weight: 99 lb Body Mass Index (BMI) 23.8 Physical Exam Const alert, oriented x3, no apparent distress and healthy appearing General Appearance: cooperative, comfortable and well kempt HEENT normocephalic Head and Scalp: atraumatic Eyes General Eye: normal appearance of both eyes Neck full ROM Resp normal respiratory effort and normal air movement Effort and Inspection: able to speak in complete sentences Cardio regular rate and regular rhythm GI soft to palpation and non-tender Extremity normal capillary refill Skin Wound Narrative: Right medial leg ulcer cluster which is superficial, pink with dry plaques of skin that were removed. Psych mental status grossly normal, thought process normal, cooperative and affect normal Debridement Note Debridement Note Wound debrided: medial leg ulcer Laterality: Right Type of Debridement: Excisional debridement Anesthesia Used: 5% Lidocaine Gel Depth: Down to and including healthy tissue and in the subcutaneous layer Percentage of wound debrided: 100 Instrument Used: 5mm curette Tissue Removed: Non viable tissue and slough Severity: Fat Layer Exposed Amount of bleeding with debridement: Mild Bleeding Controlled with: Pressure and Compression and gauze Post-Debridement Measurements and Additional Note: Post-Debridement Measurements/Treatment - Nurse 1 - General Ulcer Assessment Start: 01/24/23 10:11 Freq: Status: Active Protocol: GWEN Activity Type Activity Date Activity User E-sign Co-sign Detail Recorded Client Recorded Date Recorded By Document 01/24/23 10:12 [facility] [id number] 01/24/23 10:22 [facility] 01/24/23 10:12 EWELINA Carlin Today's Visit Information Type of service Initial Visit Arrival Mode Ambulatory Transfer Assistance Other Transfer Assist (Other) 1 Accompanied by mom Patient Identification Verified (Name & Yes ) Patient Requires Transmission-Based No Precautions Height and Weight Height 4 ft 6 in Weight 99 lb Weight in Pounds 99.0 lbs Body Mass Index (BMI) 23.8 BMI Classification Normal BSA - Eileen 1.28 Vital Signs Temperature (97.8 F-99.1 F) 97.4 F L Temperature Source Temporal Pulse Rate (60-100) 95 Pulse Location Monitor Respiratory Rate (12-18) 16 Respiratory rate source Observation Oxygen Delivery Method Room Air Blood Pressure (90/60-120/80) 129/85 H Blood Pressure Mean 99 Source Monitor Position Sitting Blood Pressure Location Right Arm History Since Last Visit- (Skip if this is Patient's initial visit) Left Footwear Regular Shoe Pain Scale: 0-10 Numeric Is Patient Pain Free? Yes - Nurse 1 - General Ulcer Measurement Start: 01/24/23 10:11 Freq: Status: Active Protocol: Activity Type Activity Date Activity User E-sign Co-sign Detail Recorded Client Recorded Date Recorded By Document 01/24/23 10:12 [facility] [id number] 01/24/23 10:22 [facility] 01/24/23 10:12 Wound Center Nurse 1 #2- R MED LE cluster -Combined with other wound No -Current Size (cm) - Length 8 -Current Size (cm) - Width 3.5 -Current Size (cm) - Depth 0.1 -Total Square Cm 28.0 -Date of Last Picture (Recall this 01/24/23 field) -Photo Taken Yes -Epithelialization None Present -Tunneling No -Undermining/Tunneling No -Circular Undermining No -Exudate Amt Medium -Exudate Type Serosanguineous -Wound Margin Distinct, Outline Attached -Granulation Amt Small (1-33%) -Granulation Quality Red -Slough/Fibrin Yes -Necrosis Amt Large (67-100%) -Necrotic Tissue Type Adherent Slough -Texture (Brianna-wound Skin Appearance) Assessed, Scarring -Moisture (Brianna-wound Skin Appearance) Assessed,Dry/ Scaly -Color (Brianna-wound Skin Appearance) Assessed -Temperature (Brianna-wound Skin No Abnormality Appearance) (Pt Warm) -Tenderness on Palpation (Brianna-wound No Skin Appearance) -Ulcer Cleansing Rinsed/ Irrigated with Saline -Foul Odor after Cleansing No -Anesthetic Used 5% Lidocaine Gel Lower Limb Edema Present Yes Right Calf (cm) 24.2 Right Ankle (cm) 19 WC - Nurse 2 - General Ulcer CM Notes Start: 01/24/23 10:11 Freq: Status: Active Protocol: Activity Type Activity Date Activity User E-sign Co-sign Detail Recorded Client Recorded Date Recorded By Document 01/24/23 10:43 [id number] 01/24/23 10:53 ELISABETH 01/24/23 10:43 Wound Center Nurse 2 #2- R MED LE cluster -Time 10:43 -Correct Patient Yes -Correct Side, Site, Position Yes -Correct Procedure Yes -Procedure Performed Yes -Type of Procedure Debridement -Clinical Debridement Subcutaneous -Tissue Removed Subcutaneous -Post Debridement (cm) - Length 8.0 -Post Debridement (cm) - Width 4.5 -Post Debridement (cm) - Depth 0.1 -Total Square (Post) (cm) 36.00 -Area of Debridement (cm) - Length 8.0 -Area of Debridement (cm) - Width 4.5 -Total Square (Area) (cm) 36.00 -Tunneling No -Undermining/Tunneling No -Circular Undermining No -Wound/Ulcer Outcome Not Healed -Ulcer Cleansing Rinsed/ Irrigated with Saline -Foul Odor after Cleansing No -Bioengineered Tissue No -Bleeding Controlled with Pressure -Treatment Response Procedure Tolerated Well -Offloading No -Debridement - Subq, 1st 20sq cm Yes -Debridement, SubQ, ea addt'l 20sq cm 1 or part thereof Pain Scale: 0-10 Numeric Is Patient Pain Free? Yes - Nurse 3 - General Ulcer D/C NN Start: 01/24/23 10:11 Freq: Status: Active Protocol: Activity Type Activity Date Activity User E-sign Co-sign Detail Recorded Client Recorded Date Recorded By Document 01/24/23 11:00 DL [id number] 01/24/23 11:01 DL 01/24/23 11:00 Wound Care Center Nurse 3 #2- R MED LE cluster -Ulcer Cleansing Rinsed/ Irrigated with Saline -Foul Odor after Cleansing No -Primary Dressing Applied C Hydrogel ($), Mepilex Border -Mepilex Border 1 Right -Tubular Bandage Single Layer -Size of Tubigrip Used Size D -Size D ($) 1 Treatment Response Procedure Tolerated Well Pain Scale: 0-10 Numeric Is Patient Pain Free? Yes WC - Visit Discharge Discharge Condition Stable Ambulatory Status Ambulatory Transportation Private Auto Charges/Coding Visit Charges Office Visits / Consults: 71762 OV L3 Est (25 modifier) Procedures Integumentary 111xxx-113xx: 22398 Archana subq tissue 20 sq cm/< Add On Codes: 24409 Archana subq tissue add-on Assessment/Plan Assessment/Plan (1) Ulcer of right lower extremity with fat layer exposed: CODE(S): L97.912 - Non-pressure chronic ulcer of unspecified part of right lower leg with fat layer exposed (2) Braces as ambulation aid: CODE(S): Z97.8 - Presence of other specified devices PLAN: Plan Patient was evaluated at the wound healing center. Wound care - Collagen hydrogel covered with [place] SAP dressing daily after washing with soap and water. Compression - Single tubigrip Will have her place extra padding over her ulcer when she has to wear her braces for ambulation. She was encouraged to minimally wear her braces. Follow up one week. Greater than 25 minutes evaluating, plan of care, reviewing old records and charting.
== END 2023-01-25 23:59 | disposition home or self-care (01) ==
LOC: WC 10:01
PROVIDERS: PCP Family Medicine; Referring Provider Family Medicine; Visit Provider Nurse Practitioner Family
DX: L97.912 Non-pressure chronic ulcer of unspecified part of right lower leg with fat layer exposed (principal); Z80.3 Family history of malignant neoplasm of breast; Z85.3 Personal history of malignant neoplasm of breast; Z97.8 Presence of other specified devices
CPT/HCPCS: 11042; 11045; 99213; G0463

== ENCOUNTER 2023-02-07 09:43 | Outpatient (RCR) | payer OTHER, SELFPAY ==
[2023-01-26 00:03] VITALS: BP 129/85; PULSE 95; RESP 16; TEMP 36.3; BMI 23.8
[2023-02-07 09:53] VITALS: BP 101/59; PULSE 89; RESP 18; TEMP 36.6; BMI 23.8
--- NOTE | 2023-02-07 11:15 | PN.PCM_ITS ---
History of Present Illness Date of Service: 02/07/23 Chief Complaint: Right medial lower leg spider bite History of Wound: 41 year old female presents for evaluation of spider bite to her right medial leg. She states she was sleeping at her father's house and there was a spider in the bedroom where she was sleeping. It occurred several days ago. She also has been out in the [place] with her dog, but denies being bit by any ticks. She was seen in oncology on recently for follow up for her left breast invasive ductal carcinoma which she was diagnosed in 01/16. She has received two rounds of chemotherapy. This spider bite was observed during that visit and the patient was referred to the wound center. Patient has been receiving potassium infusions. She also has a history of MD, which she wears braces on her legs. The area of the wound is under where the brace meets her skin. Pathology from punch biopsy x 2 on 04/12/22. Right leg superior biopsy (specimen A) showed extensive ulceration and acute and chronic inflammation, negative for malignancy. Inflammation involves full thickness of dermis and superficial adipose tissue. Right leg inferior biopsy (specimen B) showed acute and chronic inflammation, negative for malignancy. Inflammation involves deeper dermis and superficial adipose tissue. A&B Special stains for acid fast bacilli and fungi are negative for organisms. Correlation with clinical findings and appropriate follow up are necessary to rule out pyoderma grangrenosum Right medial leg wound culture positive for Klebsiella pneumoniae which is sensitive to Levaquin. Patient denies fever, chills, vomiting. She almost always is nauseous. Her appetite is very poor, her father states she is hardly eating anything. Progress of Wound: Right medial leg ulcer cluster that is healed today. There is fragile epitheli alization over the wound cluster. Objective Data Objective Data Vital Signs: Vital Signs Temp Pulse Resp BP 97.8 F 89 18 101/59 L 02/07/23 09:53 02/07/23 09:53 02/07/23 09:53 02/07/23 09:53 Weight: 99 lb Body Mass Index (BMI) 23.8 Charges/Coding Visit Charges Office Visits / Consults: 03174 OV L3 Est Physical Exam Const alert, oriented x3, no apparent distress and healthy appearing General Appearance: cooperative, comfortable and well kempt HEENT normocephalic Head and Scalp: atraumatic Eyes General Eye: normal appearance of both eyes Neck full ROM Resp normal respiratory effort and normal air movement Effort and Inspection: able to speak in complete sentences Cardio regular rate and regular rhythm GI soft to palpation and non-tender Extremity normal capillary refill Skin Wound Narrative: Right medial leg ulcer cluster is healed with fragile epithelial skin in place. Neuro CN's II-XII intact bilaterally Psych mental status grossly normal, thought process normal, cooperative and affect normal Debridement Note Debridement Note No debridement was completed: No debridement was completed today Post-Debridement Measurements and Additional Note: Post-Debridement Measurements/Treatment WC - Nurse 1 - General Ulcer Assessment Start: 02/07/23 09:53 Freq: Status: Active Protocol: GWEN Activity Type Activity Date Activity User E-sign Co-sign Detail Recorded Client Recorded Date Recorded By Document 02/07/23 09:53 DINAH [id number] 02/07/23 09:59 DL 02/07/23 09:53 WC - Today's Visit Information Type of service Follow-up Visit (Physician/FORENSIC TOXICOLOGIST ) Arrival Mode Ambulatory Transfer Assistance None Patient Identification Verified (Name & Yes ) Patient Requires Transmission-Based No Precautions Height and Weight Body Mass Index (BMI) 23.8 BMI Classification Normal Vital Signs Temperature (97.8 F-99.1 F) 97.8 F Temperature Source Temporal Pulse Rate (60-100) 89 Pulse Location Monitor Respiratory Rate (12-18) 18 Respiratory rate source Observation Blood Pressure (90/60-120/80) 101/59 L Blood Pressure Mean (mm Hg) 73 Source Monitor History Since Last Visit- (Skip if this is Patient's initial visit) Have you changed medications since your No last visit? Any new allergies or adverse reactions No Had a fall/change in ADL's that may No increase risk of falls Signs or symptoms of abuse and/or No neglect since last visit Have you been in the hospital since your No last visit? Has dressing in place as prescribed Yes Has compression in place as prescribed Yes Has offloadiing in place as prescribed N/A Experienced any changes in pain level or No management Pain Scale: 0-10 Numeric Is Patient Pain Free? Yes - Nurse 1 - General Ulcer Measurement Start: 02/07/23 09:53 Freq: Status: Active Protocol: Activity Type Activity Date Activity User E-sign Co-sign Detail Recorded Client Recorded Date Recorded By Document 02/07/23 09:53 [id number] 02/07/23 09:59 DL 02/07/23 09:53 Wound Center Nurse 1 #2- R MED LE cluster -Current Size (cm) - Length 0.1 -Current Size (cm) - Width 0.1 -Current Size (cm) - Depth 0.1 -Total Square Cm 0.01 -Photo Taken Yes -Exudate Amt None Present -Wound Margin Indistinct, Non -Visible -Granulation Amt Large (67-100%) -Granulation Quality [place] -Necrosis Amt None Present (0 %) -Structure Exposed N/A -Texture (Brianna-wound Skin Appearance) Scarring -Moisture (Brianna-wound Skin Appearance) No Abnormality -Color (Brianna-wound Skin Appearance) No Abnormality -Temperature (Brianna-wound Skin No Abnormality Appearance) (Pt Warm) -Ulcer Cleansing Soap and Water -Foul Odor after Cleansing No Right Calf (cm) 23 Right Ankle (cm) 17.5 WC - Nurse 2 - General Ulcer CM Notes Start: 02/07/23 09:53 Freq: Status: Active Protocol: Activity Type Activity Date Activity User E-sign Co-sign Detail Recorded Client Recorded Date Recorded By Document 02/07/23 10:10 [id number] 02/07/23 10:10 02/07/23 10:10 Wound Center Nurse 2 #2- R MED LE cluster -Correct Patient No -Correct Side, Site, Position No -Correct Procedure No -Procedure Performed No -Post Debridement (cm) - Length 0 -Post Debridement (cm) - Width 0 -Post Debridement (cm) - Depth 0 -Total Square (Post) (cm) 0 -Area of Debridement (cm) - Length 0 -Area of Debridement (cm) - Width 0 -Total Square (Area) (cm) 0 -Wound/Ulcer Outcome Healed- Epithelialized Pain Scale: 0-10 Numeric Is Patient Pain Free? Yes - Nurse 3 - General Ulcer D/C NN Start: 02/07/23 09:53 Freq: Status: Active Protocol: Activity Type Activity Date Activity User E-sign Co-sign Detail Recorded Client Recorded Date Recorded By Document 02/07/23 10:11 ELISABETH [id number] 02/07/23 10:11 ELISABETH 02/07/23 10:11 Wound Care Center Nurse 3 #2- R MED LE cluster -Primary Dressing Applied Mepilex Border -Mepilex Border 1 Pain Scale: 0-10 Numeric Is Patient Pain Free? Yes WC - Visit Discharge Discharge Condition Stable Ambulatory Status Ambulatory Transportation Private Auto Medication Reconcilliation completed & Yes provided to patient/care provider Clinical Summary of Care Provided Yes Assessment/Plan Assessment/Plan (1) Ulcer of right lower extremity with fat layer exposed: CODE(S): L97.912 - Non-pressure chronic ulcer of unspecified part of right lower leg with fat layer exposed (2) Braces as ambulation aid: CODE(S): Z97.8 - Presence of other specified devices PLAN: Plan Patient was evaluated at the wound healing center. She is healed today. Massage the area with lotion 1-2 times per day to help soften the scarring. Continue to place a padded dressing over the area, especially when she is wearing her brace, to prevent her brace from rubbing on it. Compression - Single tubigrip Will have her place extra padding over her ulcer when she has to wear her braces for ambulation. She was encouraged to minimally wear her braces. Follow up as needed.
== END 2023-02-09 07:29 | disposition home or self-care (01) ==
LOC: WC 09:43
PROVIDERS: PCP Family Medicine; Referring Provider Family Medicine; Visit Provider Nurse Practitioner Family
DX: L97.912 Non-pressure chronic ulcer of unspecified part of right lower leg with fat layer exposed (principal); C50.912 Malignant neoplasm of unspecified site of left female breast; Z92.21 Personal history of antineoplastic chemotherapy; Z97.8 Presence of other specified devices
CPT/HCPCS: 99213; G0463

== ENCOUNTER → 2023-02-21 | Outpatient (CLI) | payer OTHER, SELFPAY ==
[2023-02-26 17:07] LABS: HPV APTIMA, High Risk Negative (Negative)
[2023-02-27 22:08] LABS: HPV Reflexed? YES, CHARGE PATIENT
== END | disposition home or self-care (01) ==
LOC: LABSPEC 12:53
PROVIDERS: PCP Family Medicine; Visit Provider Nurse Practitioner Family
DX: Z12.4 Encounter for screening for malignant neoplasm of cervix (principal)
CPT/HCPCS: 87624; 88175; G0145

== ENCOUNTER → 2023-02-21 | Outpatient (CLI) | payer OTHER, SELFPAY ==
--- NOTE | 2023-02-21 13:56 | ECHOLONC_ITS ---
Reason For Study: Malignant Neoplasm of Female Breast Procedure This was a limited 2D transthoracic echocardiogram. Myocardial strain analysis was performed in this exam to aid in the assessment of cardiac function. The study was technically difficult. Exam performed in department. Left Ventricle Normal LV size. Left ventricular systolic function is normal. The estimated ejection fraction is 55 %. No regional wall motion abnormalities noted. Right Ventricle Normal RV size. Normal systolic function. Atria Normal left atrium. Normal right atrium. Mitral Valve Normal mitral valve. Tricuspid Valve Normal tricuspid valve. Pulmonic Valve Normal pulmonic valve. Great Vessels Normal aortic root. Pericardium/Pleural No pericardial effusion. MMode/2D Measurements & Calculations LVIDd: 4.0 cm IVSd: 0.77 cm LVAd ap4: 21.1 cm2 LVIDs: 3.0 cm LVPWd: 0.73 cm LVLd ap4: 6.8 cm FS: 25.0 % EDV(MOD-sp4): 54.0 ml EDV(sp4-el): 55.4 ml LVAs ap4: 13.7 cm2 LVLs ap4: 6.1 cm ESV(MOD-sp4): 25.5 ml ESV(sp4-el): 26.0 ml EF(MOD-sp4): 52.7 % EF(sp4-el): 53.1 % SV(MOD-sp4): 28.5 ml SV(sp4-el): 29.4 ml Time Measurements MV dec time: 0.21 sec Doppler Measurements & Calculations MV E max shad: 83.7 cm/sec Lat Peak E' Shad: 13.1 cm/sec Med Peak E' Shad: 12.0 cm/sec MV A max shad: 79.9 cm/sec E/E' lat: 6.4 E/E' med: 7.0 MV E/A: 1.0 MV dec slope: 406.5 cm/sec2 ECHO/ONC Echo, Limited Study Interpretation Summary Normal LV size. Left ventricular systolic function is normal. The estimated ejection fraction is 55 %. The global longitudinal strain is borderline abnormal. The prior global longitu dinal strain was -19 % . Ordering Physician: Theodore Perez Referring Physician: Theodore Perez Performed By: Clement Valdes RCS
== END | disposition home or self-care (01) ==
LOC: CVS 13:55
PROVIDERS: PCP Family Medicine; Referring Provider Internal Medicine Hematology & Oncology; Visit Provider Internal Medicine Hematology & Oncology
DX: C50.919 Malignant neoplasm of unspecified site of unspecified female breast (principal)
CPT/HCPCS: 93308; 93356

== ENCOUNTER 2023-07-02 10:13 | Emergency (ER) | payer OTHER, SELFPAY ==
[2023-07-02 10:15] VITALS: BP 111/69; PULSE 89; RESP 14; TEMP 36.2; O2SAT 99; BMI 22.5
--- NOTE | 2023-07-02 10:48 | CT_ITS ---
STUDY: CT FACIAL BONES WITHOUT CONTRAST REASON FOR EXAM: Female, 42 years old. Nasal injury. RADIATION DOSAGE (If Supplied By Facility): CTDIvol = ( 29.38 ) mGy, DLP = ( 576.84 ) mGycm TECHNIQUE: The patient was scanned in a multi detector CT scanner. Sagittal and coronal images were reconstructed. Individualized dose optimization techniques were used for this CT. COMPARISON: None. FINDINGS: Soft tissue swelling. Normal orbital thomason and orbital contents. Normal nasal bones and anterior nasal spine. Normal facial bones. There is no demonstrated fracture. Normal visualized paranasal sinuses. CT/Sinus/Facial Bone IMPRESSION: Soft tissue swelling. No fracture is seen. Electronically Signed: Michael Bal MD at 12:16 EST ,
--- NOTE | 2023-07-02 10:58 | ED.VIS.FALL ---
HPI HPI - Fall History of Present Illness Chief Complaint: Fall Narrative Narrative: 42-year-old female past medical history of muscular dystrophy, wears braces on her legs, presents status post fall with injury to her face. She states that she has some rough maryan at work, and she tripped over it. Her boot caught and she fell forward onto her face. Her glasses hit her nose and she sustained a laceration to the bridge of her nose, and thinks that she hit her central forehead in the fall. She denies loss of consciousness or headache. She may have mild right-sided neck pain that is worse with turning her head and is from the way she fell. Her tetanus immunization has been in the last 5 years she believes. She presents for evaluation from her fall. She complains of bleeding from her right nares and from the bridge of her nose along with swelling of her nose as well. She does not take blood thinners. [facility] Medical History Alcohol use Anemia Anemia Anxiety Arthritis Arthrogryposis Blackout Braces as ambulation aid Breast cancer Breast cancer, left breast Cardiology follow-up encounter CINV (chemotherapy-induced nausea and vomiting) CPAP (continuous positive airway pressure) dependence Dehydration Depression Diarrhea Diarrhea due to drug Elevated C-reactive protein (CRP) (12/26/21) Encounter for chemotherapy management Encounter for education Encounter for monitoring cardiotoxic drug therapy Gastric reflux Heartburn History of diverticulitis History of echocardiogram History of edema History of irregular heartbeat History of renal disease Hot flashes due to tamoxifen Hypokalemia Hypomagnesemia Leg sore Localized peritonitis Lung nodule, multiple Mucositis (ulcerative) due to antineoplastic therapy Mucositis (ulcerative) due to antineoplastic therapy Muscular dystrophy Muscular dystrophy Nausea Non-smoker Open wound Oral candidiasis Osteoporosis PEG (percutaneous endoscopic gastrostomy) adjustment/replacement/removal Phlegmonous peritonitis Port-A-Cath in place Sepsis without acute organ dysfunction Thrombocytosis Thrombocytosis Uses wheelchair Vitamin D deficiency Wears glasses Well woman exam Home Medications ascorbic acid (vitamin C) 500 mg tablet 500 mg PO BIDCM supplement 06/30/22 [History Last Taken 06/30/22 09:00] calcitriol 0.5 mcg capsule 0.5 mcg PO DAILY #30 caps 07/12/22 [Rx Last Taken Unknown] magnesium chloride 64 mg (magnesium chloride) tablet,delayed release (Mag 64) 128 mg (2 x 64 mg) PO TID #180 tabs 07/12/22 [Rx Last Taken Unknown] pantoprazole 40 mg tablet,delayed release 40 mg PO BID #60 tabs 07/12/22 [Rx Last Taken Unknown] spironolactone 25 mg tablet 25 mg PO BID Check with primary doctor #60 tabs 07/12/22 [Rx Last Taken Unknown] tramadol 50 mg tablet 50 - 100 mg (1 - 2 x 50 mg) PO Q6H PRN PRN PAIN 4-10 #28 tabs 07/12/22 [Rx Last Taken Unknown] vitamin E (dl, acetate) 180 mg (400 unit) capsule 400 units PO DAILYCM supplement #30 caps 07/12/22 [Rx Last Taken 06/30/22 09:00] zinc sulfate 50 mg zinc (220 mg) capsule 220 mg (4.4 x 50 mg zinc (220 mg)) PO DAILY supplement #30 caps 07/12/22 [Rx Last Taken 06/30/22 09:00] tamoxifen 20 mg tablet 20 mg PO DAILY #90 tabs 01/22/23 [Rx Last Taken Unknown] mirtazapine 7.5 mg tablet 7.5 mg PO DAILY 04/16/23 [History Last Taken Unknown] Allergy/AdvReac Type Severity Reaction Status Date / Time kiwi Allergy Mild Anaphylaxis Verified 07/02/23 10:17 Penicillins Allergy Mild Anaphylaxis Verified 07/02/23 10:17 Gadolinium-MRI Contrast AdvReac Shortness Verified 07/02/23 10:17 Medium of breath [contrast dye] Family History Mother Diabetes Hypertension High cholesterol Thyroid disorder Uncle Cancer non-hodgkins lymphoma Grandfather Heart disease Grandmother Heart disease Brother Hypertension Unknown Breast cancer mother had 2 cousins with aggressive breast cancer Unknown Thyroid cancer maternal cousin Other Arthritis Depression Surgical History H/O release of tendon History of colonoscopy History of lymph node biopsy History of lymph node dissection of axilla History of spinal fusion S/P left mastectomy Social History household members: family current occupational status: employed 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 HEENT: No sore throat. No neck pain. No loss of vision. No rhinorrhea. Epistaxis from right nares, contusion to nose. Head central forehead and fall. Cardiovascular: No chest pain. No palpitations. No pedal edema. Respiratory: No cough, no shortness of breath. Abdominal: No abdominal pain. No nausea. No vomiting. Genitourinary: No dysuria. No hematuria. Musculoskeletal: No myalgias. No arthralgias. Neurologic: No headaches. No dizziness. No lightheadedness. Skin: No rash. No change in color. Psychiatric: No depression. No anxiety. EXAM Physical Exam Narrative Exam Narrative: Afebrile. Vital signs noted. GCS 15. ABCs intact. HEENT: Normocephalic. Less than 1 cm laceration to bridge of nose with noted swelling to nose. No current epistaxis. No nasal septal hematoma. PERRL, EOMI. Neck soft and supple. No point tenderness or step off. Mild right paraspinal tenderness. Cardiovascular: Regular rate and rhythm. No murmurs, rubs, or gallops appreciated. Respiratory: No tachypnea. Lungs clear to auscultation bilaterally. Gastrointestinal: Abdomen soft, nontender, with normoactive bowel sounds. No rebound or guarding. Neurological: Awake. Alert. Oriented x 3. Nonfocal, nonlateralizing. Skin: No rash. Normal color. No pallor. Musculoskeletal: No pedal edema. Full range of motion extremities. Const Vital Signs: 07/02/23 10:15 07/02/23 13:05 Temperature 97.2 F L Temperature Source Temporal Pulse Rate 89 74 Respiratory Rate 14 16 Blood Pressure 111/69 105/86 H Blood Pressure Mean 83 92 Pulse Ox 99 99 Oxygen Delivery Method Room Air MDM MDM MDM Narrative Medical decision making narrative: Patient's wound was cleansed, and Steri-Stripped. I do not feel that it is amenable to suture repair. I discussed this with the patient and she agrees. Additionally, she is alert and oriented x 3. I do not feel that she needs a CT of the head or C-spine, but rather as her nose and forehead took the brunt of her fall, I do feel that CT facial bones is indicated. She was told that should she have a nasal fracture that she would need to follow-up with plastic surgery as an outpatient. She states she believes her tetanus immunization is up-to-date. I reviewed the CT report of the facial bones and there is soft tissue swelling but no evidence of an acute fracture visualized. At this point in time, I feel she can be discharged to follow-up with the [facility]. She states that she requires drug testing, so she was told to report there immediately. She was given a note to be off work today, the day of her injury. She will also follow-up with [facility] afterwards regarding her nasal laceration and contusion. Return instructions to the emergency department were reviewed. Disposition is discharged home in stable condition. History & Record Review Discussion w/independent historian: Patient and Friend Additional record(s) reviewed:: Prior ED visit Radiography Diagnostic Testing: Clinical Impression(s) from Imaging Studies Facial/Sinus 07/02/23 10:48 IMPRESSION: Soft tissue swelling. No fracture is seen. Electronically Signed: Michael Bal MD at 12:16 EST , Discharge Plan Triage Chief Complaint: Fall ED Provider: Lito Nguyen Dx/Rx/DC Orders Clinical Impression: Nasal contusion, Fall, Laceration of nose Instructions: ED Facial Contusion, ED Laceration, All Closures Prescriptions: No Action tamoxifen 20 mg tablet 20 mg PO DAILY Qty: 90 4RF mirtazapine 7.5 mg tablet 7.5 mg PO DAILY ascorbic acid (vitamin C) 500 mg tablet 500 mg PO BIDCM pantoprazole 40 mg Tablet,Delayed Release (Dr/Ec) 40 mg PO BID Qty: 60 0RF Mag 64 64 mg Tablet,Delayed Release (Dr/Ec) 128 mg PO TID Qty: 180 0RF tramadol 50 mg Tablet 50 - 100 mg PO Q6H PRN PRN (Reason: PAIN 4-10) Qty: 28 0RF spironolactone 25 mg tablet 25 mg PO BID Qty: 60 0RF calcitriol 0.5 mcg capsule 0.5 mcg PO DAILY Qty: 30 0RF zinc sulfate 50 mg zinc (220 mg) capsule 220 mg PO DAILY Qty: 30 0RF vitamin E (dl, acetate) 180 mg (400 unit) capsule 400 units PO DAILYCM Qty: 30 0RF Primary Care Provider: Jam Verde Referrals: Jam Verde MD [Primary Care Provider] - [facility] [Non-Staff] - As soon as possible Activity Restrictions/Additional Instructions: Report to [facility] for drug testing immediately. Disposition Disposition: Home, Self Care Discharge Date/Time: 07/02/23 13:07
--- OUTSIDE RECORDS SUMMARY | 2023-07-02 11:03 | XMS RPT_ITS | CCD ---
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 Start: 2018 Mammography MAMMOGRAM [facility] Start: 2008 HPV TESTING HPV TESTING [facility] Start: 10-23-1999 PAP TESTING PAP TESTING [facility] Start: 1997 Urine microalbumin profile DTAP,TDAP ,TD (1 - Tdap) [facility] Start: 1996 HEPATITIS C SCREENING HEPATITIS C SC REENING [facility] Start: 1996 HIV SCREENING HIV SCREENING [facility] Start: 1990 Adult depression [facility] assessment DEPRESSION SCREENING [facility] Start: 04-24-1979 COVID-19 VACCINE (#1) COVID-19 VACCI NE (#1) [facility] Start: 1978 HEPATITIS B (1 of 3 - 3-dose series) HEPATITIS B (1 of 3 - 3-dose series) [facility] Social History Date Type Detail Facility Tobacco smoking stat us NHIS Never smoked tobacco 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 Start: 1978 Sex Assigned At Not on file [facility] Clinic Note 01-24-2022 Telephone Encounter - Nicole Wright - 01/24/2022 3:26 PM EDT Note Date & Type Note Facility 01-24-2022 Miscellaneous Notes Summary: New Patient Received New Patient referral from [facility] Called and spoke to pt to get insurance information to update PT's chart. PT's insurance is OON with the clinic. PT stated that she was scheduled at a location that is in network with her insurance and declined New Patient Appointment. Faxed Jo office and informed them of PT's decision. [phone] Received conformation that fax was received. documented in this encounter [facility] Summary Purpose Family History No Family History Records FoundNo Family History Records Found Advance Directives No Advanced Directives Records FoundNo Advanced Directives Records Found Additional Source Comments INFORMATION SOURCE (unrecogn ized section and content) DATE CREATED AUTHOR AUTHOR'S ORGANIZ ATION 01/25/2022 [facility] Source Comments (unrecognize d section and content) In the event this informatio n is protected by the Federal Confidentiality of Alcohol and Drug Abuse Patient Records regulations: The Federal rules restrict any use of the information to criminally investigate or prosecute any alcohol or drug abuse patient.[facility] Reason for Visit (unrecogniz ed section and content) Care Teams (unrecognized sec tion and content) FOR RECORDS PERTAINING TO PATIENTS WHO ARE OR HAVE BEEN ENROLLED IN A CHEMICAL DEPENDENCY/SUBSTANCEABUSE PROGRAM, SOME INFORMATION MAY BE OMITTED. This clinical summary was aggregated from multiple sources. Caution should be exercised in using it in the provision of clinical care. This summary normalizes information from multiple sources, and as a consequence, information in this document may materially change the coding, format and clinical context of patient data. In addition, data may be omitted in some cases. CLINICAL DECISIONS SHOULD BE BASED ON THE PRIMARY CLINICAL RECORDS. [facility] [employer] [facility] provides no warranty or guarantee of the accuracy or completeness of information in this document.
[2023-07-02 13:05] VITALS: BP 105/86; PULSE 74; RESP 16; O2SAT 99
== END 2023-07-02 13:07 | disposition home or self-care (01) ==
PROVIDERS: Emergency Provider Emergency Medicine; PCP Family Medicine; Visit Provider Emergency Medicine
DX: S01.21XA Laceration without foreign body of nose, initial encounter (principal); G71.00 Muscular dystrophy, unspecified; W01.0XXA Fall on same level from slipping, tripping and stumbling without subsequent striking against object, initial encounter; Z85.3 Personal history of malignant neoplasm of breast; K21.9 Gastro-esophageal reflux disease without esophagitis
CPT/HCPCS: 70486; 99282

== ENCOUNTER 2023-12-19 13:00 | Outpatient (RCR) | payer OTHER, SELFPAY ==
[2023-12-12 15:41] VITALS: BP 114/73; PULSE 98; RESP 18; TEMP 36.6
--- NOTE | 2023-12-12 16:26 | HP.PCM_ITS ---
History of Present Illness Date of Service: 12/12/23 Chief Complaint: Right medial lower leg spider bite History of Wound: 43 year old female, who is known to me, presents for evaluation of blistering/breakdown to her right medial leg, where she previously had an ulcer. This area was healed but she went swimming at [place] and covered it with a band aid and a tegaderm. When she got home she left the tegaderm in place until the following morning. When she removed the dressing, the area was macerated and there were small white blisters over the scarred area. She typically wears a band aid over the area because when she wears her brace, it rubs and she has had break down in the scar tissue in the past and the ulcer reopened. She was diagnosed with left breast invasive ductal carcinoma in 01/16. She was previously seen by me until she ended up hospitalized for and intraabdominal abscess at the end of 05/18. She ended up in the Rehab unit for 3 months and by the time she was discharged, this ulcer was almost healed. She has come back to the wound center when she has had this area reopen. She decided to return to the wound healing center today for further evaluation and treatment. She has been using a left over Silvadene cream and covering it with gauze. She states that since she has started doing this, she has noticed an improvement to the entire area. She previously had a biopsy of this leg which showed: Pathology from punch biopsy x 2 on 04/12/22. Right leg superior biopsy (specimen A) showed extensive ulceration and acute and chronic inflammation, negative for malignancy. Inflammation involves full thickness of dermis and superficial adipose tissue. Right leg inferior biopsy (specimen B) showed acute and chronic inflammation, negative for malignancy. Inflammation involves deeper dermis and superficial adipose tissue. A&B Special stains for acid fast bacilli and fungi are negative for organisms. Correlation with clinical findings and appropriate follow up are necessary to rule out pyoderma grangrenosum Patient denies fever, chills, vomiting. She states she is is doing well. Progress of Wound: Right medial leg has healed scarring from a previous ulcer. In the center of the ulcer are multiple small scabbed areas that are where the blisters Bere stated she had were and they drained. No erythema is present. She has been using a silvadene cream that she had at home on this area and covering it with dry gauze. Since she started to do this, she states the area has greatly improved. She states that she always covers this area with a large band aid to prevent her leg brace from rubbing against the skin. She wears either an willie wrap or a tubigrip over this area also. [facility] Medical History (Reviewed 12/13/23 @ 12:54 by Kathrin Calzada MONEY LAUNDERING INVESTIGATOR, MONEY LAUNDERING INVESTIGATOR-C) Well woman exam Hot flashes due to tamoxifen Wears glasses Open wound Uses wheelchair Osteoporosis History of renal disease Anemia Blackout Gastric reflux PEG (percutaneous endoscopic gastrostomy) adjustment/replacement/removal Cardiology follow-up encounter Muscular dystrophy Encounter for monitoring cardiotoxic drug therapy Vitamin D deficiency Muscular dystrophy Nausea Phlegmonous peritonitis Localized peritonitis Sepsis without acute organ dysfunction Mucositis (ulcerative) due to antineoplastic therapy Diarrhea Dehydration Encounter for chemotherapy management Thrombocytosis Anemia Thrombocytosis Hypomagnesemia Leg sore Mucositis (ulcerative) due to antineoplastic therapy Oral candidiasis Lung nodule, multiple Hypokalemia Diarrhea due to drug CINV (chemotherapy-induced nausea and vomiting) Encounter for education Port-A-Cath in place Braces as ambulation aid Depression Anxiety Alcohol use Arthritis History of diverticulitis Heartburn Non-smoker CPAP (continuous positive airway pressure) dependence History of edema History of irregular heartbeat History of echocardiogram Elevated C-reactive protein (CRP) (12/26/21) Breast cancer, left breast Breast cancer Arthrogryposis Home Medications ?Medication ?Instructions ?Recorded ?Last Taken ?Type ascorbic acid (vitamin C) 500 mg 500 mg PO BIDCM supplement 06/30/22 06/30/22 09:00 History tablet calcitriol 0.5 mcg capsule 0.5 mcg PO DAILY #30 caps 07/12/22 Unknown Rx magnesium chloride 64 mg 128 mg (2 x 64 mg) PO TID #180 tabs 07/12/22 Unknown Rx (magnesium chloride) tablet,delayed release (Mag 64) pantoprazole 40 mg tablet,delayed 40 mg PO BID #60 tabs 07/12/22 Unknown Rx release spironolactone 25 mg tablet 25 mg PO BID Check with primary 07/12/22 Unknown Rx doctor #60 tabs tramadol 50 mg tablet 50 - 100 mg (1 - 2 x 50 mg) PO Q6H 07/12/22 Unknown Rx PRN PRN PAIN 4-10 #28 tabs vitamin E (dl, acetate) 180 mg 400 units PO DAILYCM supplement 07/12/22 06/30/22 09:00 Rx (400 unit) capsule #30 caps zinc sulfate 50 mg zinc (220 mg) 220 mg (4.4 x 50 mg zinc (220 mg)) 07/12/22 06/30/22 09:00 Rx capsule PO DAILY supplement #30 caps tamoxifen 20 mg tablet 20 mg PO DAILY #90 tabs 01/22/23 Unknown Rx mirtazapine 7.5 mg tablet 7.5 mg PO DAILY 04/16/23 Unknown History Allergy/AdvReac Type Severity Reaction Status Date / Time kiwi Allergy Mild Anaphylaxis Verified 11/26/23 15:39 Penicillins Allergy Mild Anaphylaxis Verified 11/26/23 15:39 Gadolinium-MRI Contrast AdvReac Shortness Verified 11/26/23 15:39 Medium (contrast dye) of breath Family History (Reviewed 12/13/23 @ 12:54 by Kathrin Calzada MONEY LAUNDERING INVESTIGATOR, MONEY LAUNDERING INVESTIGATOR-C) Mother Diabetes Hypertension High cholesterol Thyroid disorder Uncle Cancer non-hodgkins lymphoma Grandfather Heart disease Grandmother Heart disease Brother Hypertension Unknown Breast cancer mother had 2 cousins with aggressive breast cancer Unknown Thyroid cancer maternal cousin Other Arthritis Depression Surgical History (Reviewed 12/13/23 @ 12:54 by Kathrin Calzada MONEY LAUNDERING INVESTIGATOR, MONEY LAUNDERING INVESTIGATOR-C) History of lymph node dissection of axilla S/P left mastectomy History of colonoscopy History of lymph node biopsy H/O release of tendon History of spinal fusion Social History (Reviewed 12/13/23 @ 12:54 by Kathrin Calzada MONEY LAUNDERING INVESTIGATOR, MONEY LAUNDERING INVESTIGATOR-C) household members: family current occupational status: employed current occupation: [employer] Smoking Status: Never smoker alcohol intake: current alcohol intake frequency: holidays/special occasions only details: occasional substance use type: does not use ROS Constitutional Constitutional: Denies fatigue or fever(s) Eyes Eyes: Reports requires corrective lenses ENT HEENT: Reports none Cardiovascular Cardiovascular: Denies chest pain or dyspnea Respiratory/Chest Respiratory/Chest: Reports none Gastrointestinal Gastrointestinal: Reports none Genitourinary Genitourinary: Reports none Musculoskeletal Musculoskeletal: Reports as per HPI Integumentary Integumentary: Reports wounds Neurologic Neurologic: Reports as per HPI Psychiatric Psychiatric: Reports none Endocrine Endocrinology: Reports none Hematologic/Lymphatic Hematologic/Lymphatic: Reports as per HPI Vital Signs Vital Signs Vital Signs: 12/12/23 15:41 Temperature 97.8 F Temperature Source Temporal Pulse Rate 98 Respiratory Rate 18 Blood Pressure 114/73 Blood Pressure Mean 86 Blood Pressure Source Monitor Blood Pressure Position Sitting Blood Pressure Location Left Arm Oxygen Delivery Method Room Air Physical Exam Const alert, oriented x3, no apparent distress and healthy appearing General Appearance: cooperative, comfortable and well kempt HEENT normocephalic Head and Scalp: atraumatic Eyes General Eye: normal appearance of both eyes Neck full ROM Lymph Lymphatic: no lymphedema noted Resp normal respiratory effort, normal air movement and clear to auscultation bilaterally Effort and Inspection: able to speak in complete sentences Cardio regular rate and regular rhythm GI soft to palpation and non-tender Back/Spine normal ROM Extremity normal capillary refill Peripheral Pulses: Yes pulses 2+ throughout Skin Wound Narrative: Right medial leg on old healed scar are several small, pink, circular areas. They are superficial. No drainage or odor present. Neuro oriented x3 Psych mental status grossly normal, thought process normal, cooperative and affect normal Debridement Note Debridement Note No debridement was completed: No debridement was completed today Post-Debridement Measurements and Additional Note: Post-Debridement Measurements/Treatment WC - Nurse 1 - General Ulcer Assessment Start: 12/12/23 13:13 Freq: Status: Active Protocol: GWEN Activity Type Activity Date Activity User E-sign Co-sign Detail Recorded Client Recorded Date Recorded By Document 12/12/23 15:41 MS [id number] 12/12/23 15:44 MS 12/12/23 15:41 - Today's Visit Information Type of service Initial Visit Arrival Mode Ambulatory Accompanied by mother Patient Identification Verified (Name & Yes ) Safety Precautions Fall Prevention Vital Signs Temperature (97.8 F-99.1 F) 97.8 F Temperature Source Temporal Pulse Rate (60-100) 98 Pulse Location Monitor Respiratory Rate (12-18) 18 Respiratory rate source Observation Oxygen Delivery Method Room Air Blood Pressure (90/60-120/80) 114/73 Blood Pressure Mean 86 Source Monitor Position Sitting Blood Pressure Location Left Arm History Since Last Visit- (Skip if this is Patient's initial visit) Left Footwear Regular Shoe Right Footwear Regular Shoe Pain Scale: 0-10 Numeric Is Patient Pain Free? Yes WC - Nurse 1 - General Ulcer Measurement Start: 12/12/23 13:13 Freq: Status: Active Protocol: Activity Type Activity Date Activity User E-sign Co-sign Detail Recorded Client Recorded Date Recorded By Document 12/12/23 15:41 MS [id number] 12/12/23 15:44 MS 12/12/23 15:41 Wound Center Nurse 1 3. right medial calf cluster -Current Size (cm) - Length 7.5 -Current Size (cm) - Width 4.5 -Current Size (cm) - Depth 0.1 -Total Square Cm 33.75 -Date of Last Picture (Recall this 12/12/23 field) -Photo Taken Yes -Epithelialization Large 67-100% -Tunneling No -Undermining/Tunneling No -Circular Undermining No -Exudate Amt None Present -Wound Margin Flat & Intact -Granulation Amt Large (67-100%) -Granulation Quality Pale,[place] -Texture (Brianna-wound Skin Appearance) Assessed -Moisture (Brianna-wound Skin Appearance) Assessed -Color (Brianna-wound Skin Appearance) Assessed -Temperature (Brianna-wound Skin No Abnormality Appearance) (Pt Warm) -Tenderness on Palpation (Brianna-wound No Skin Appearance) -Ulcer Cleansing Soap and Water -Foul Odor after Cleansing No -Anesthetic Used 5% Lidocaine Gel Lower Limb Edema Present NA WC - Nurse 2 - General Ulcer CM Notes Start: 12/12/23 13:13 Freq: Status: Active Protocol: Activity Type Activity Date Activity User E-sign Co-sign Detail Recorded Client Recorded Date Recorded By Document 12/12/23 15:12 [facility] [id number] 12/12/23 15:13 [facility] 12/12/23 15:12 Wound Center Nurse 2 3. right medial calf cluster -Time 15:12 -Post Debridement (cm) - Length 7 -Post Debridement (cm) - Width 5.5 -Post Debridement (cm) - Depth 0.1 -Total Square (Post) (cm) 38.5 -Area of Debridement (cm) - Length 7 -Area of Debridement (cm) - Width 5.5 -Total Square (Area) (cm) 38.5 -Tunneling No -Undermining/Tunneling No -Circular Undermining No -Wound/Ulcer Outcome Not Healed -Bleeding Controlled with NA Pain Scale: 0-10 Numeric Is Patient Pain Free? Yes WC - Nurse 3 - General Ulcer D/C NN Start: 12/12/23 13:13 Freq: Status: Active Protocol: Activity Type Activity Date Activity User E-sign Co-sign Detail Recorded Client Recorded Date Recorded By Document 12/12/23 14:14 RB [id number] 12/12/23 14:17 RB 12/12/23 14:14 Wound Care Center Nurse 3 3. right medial calf cluster -Ulcer Cleansing Rinsed/ Irrigated with Saline -Other Dressing silvadene cream -Primary Dressing Covered/Secured with Dry Gauze,Dry Gauze & Roll Gauze,Secured with Tape Right -Tubular Bandage Single Layer -Size of Tubigrip Used Size D -Size D ($) 1 Treatment Response Procedure Tolerated Well Pain Scale: 0-10 Numeric Is Patient Pain Free? Yes WC - Visit Discharge Discharge Condition Stable Ambulatory Status Wheelchair Transportation Private Auto Medication Reconcilliation completed & No provided to patient/care provider Clinical Summary of Care Provided Yes Charges/Coding Visit Charges Office Visits / Consults: 88016 OV L3 Est 20min Assessment/Plan Assessment/Plan (1) Wound of right lower extremity: CODE(S): S81.801A - Unspecified open wound, right lower leg, initial encounter (2) Braces as ambulation aid: CODE(S): Z97.8 - Presence of other specified devices (3) Breast cancer, left breast: CODE(S): C50.912 - Malignant neoplasm of unspecified site of left female breast (4) S/P left mastectomy: CODE(S): Z90.12 - Acquired absence of left breast and nipple PLAN: Plan Patient evaluated at the wound healing center today. She has been placing Silvadene cream on her right medial lower leg where she experienced blistering and maceration after leaving a tegaderm in place after swimming. Her wounds have already started to improve since she started to use the Silvadene cream. Wound care - Continue Silvadene cream covered with gauze daily. Make sure to wash with soap and water at the time of doing the dressing changes. Compression - Tubigrip single layer, medium compression. Did suggest that she go to [facility] and be measured for compression stockings (10-20 mmHg). Wearing compression may help prevent her leg brace from rubbing on the old scarring. Follow up one week.
--- NOTE | 2023-12-14 11:32 | WC ---
PHOTO 12/12/23 (I) RIGHT
[2023-12-19 13:17] VITALS: BP 126/66; PULSE 86; RESP 18; TEMP 36.2
--- NOTE | 2023-12-19 16:26 | PCM.WC.PN ---
History of Present Illness Date of Service: 12/19/23 Chief Complaint: Right medial lower leg spider bite History of Wound: 43 year old female, who is known to me, presents for evaluation of blistering/breakdown to her right medial leg, where she previously had an ulcer. This area was healed but she went swimming at [facility] and covered it with a band aid and a tegaderm. When she got home she left the tegaderm in place until the following morning. When she removed the dressing, the area was macerated and there were small white blisters over the scarred area. She typically wears a band aid over the area because when she wears her brace, it rubs and she has had break down in the scar tissue in the past and the ulcer reopened. She was diagnosed with left breast invasive ductal carcinoma in 01/16. She was previously seen by me until she ended up hospitalized for and intraabdominal abscess at the end of 05/18. She ended up in the Rehab unit for 3 months and by the time she was discharged, this ulcer was almost healed. She has come back to the wound center when she has had this area reopen. She decided to return to the wound healing center today for further evaluation and treatment. She has been using a left over Silvadene cream and covering it with gauze. She states that since she has started doing this, she has noticed an improvement to the entire area. She previously had a biopsy of this leg which showed: Pathology from punch biopsy x 2 on 04/12/22. Right leg superior biopsy (specimen A) showed extensive ulceration and acute and chronic inflammation, negative for malignancy. Inflammation involves full thickness of dermis and superficial adipose tissue. Right leg inferior biopsy (specimen B) showed acute and chronic inflammation, negative for malignancy. Inflammation involves deeper dermis and superficial adipose tissue. A&B Special stains for acid fast bacilli and fungi are negative for organisms. Correlation with clinical findings and appropriate follow up are necessary to rule out pyoderma grangrenosum Patient denies fever, chills, vomiting. She states she is is doing well. Progress of Wound: Right medial leg is healed today. Objective Data Objective Data Vital Signs: Vital Signs Temp Pulse Resp BP O2 Del Method 97.1 F L 86 18 126/66 H Room Air 12/19/23 13:17 12/19/23 13:17 12/19/23 13:17 12/19/23 13:17 12/12/23 15:41 Oxygen Delivery Method Room Air Charges/Coding Visit Charges Office Visits / Consults: 59832 OV L2 Est 10min Physical Exam Const alert, oriented x3, no apparent distress and healthy appearing General Appearance: cooperative, comfortable and well kempt HEENT normocephalic Head and Scalp: atraumatic Eyes General Eye: normal appearance of both eyes Neck full ROM Lymph Lymphatic: no lymphedema noted Resp normal respiratory effort, normal air movement and clear to auscultation bilaterally Effort and Inspection: able to speak in complete sentences Cardio regular rate and regular rhythm GI soft to palpation and non-tender Back/Spine normal ROM Extremity normal capillary refill Peripheral Pulses: Yes pulses 2+ throughout Skin Wound Narrative: Right medial leg on old healed scar is healed today. Neuro oriented x3 Psych mental status grossly normal, thought process normal, cooperative and affect normal Debridement Note Debridement Note No debridement was completed: No debridement was completed today Post-Debridement Measurements and Additional Note: Post-Debridement Measurements/Treatment - Nurse 1 - General Ulcer Assessment Start: 12/12/23 13:13 Freq: Status: Active Protocol: [email or web address] Activity Type Activity Date Activity User E-sign Co-sign Detail Recorded Client Recorded Date Recorded By Document 12/12/23 15:41 MI [id number] 12/12/23 15:44 MT Document 12/19/23 13:17 RB wound 12/19/23 13:20 RB 12/12/23 12/19/23 15:41 13:17 - Today's Visit Information Type of service Initial Visit Follow-up Visit (Physician/DRY HOUSE ATTENDANT ) Arrival Mode Ambulatory Ambulatory Transfer Assistance None Accompanied by mother Patient Identification Verified (Name & Yes Yes ) Patient Requires Transmission-Based No Precautions Safety Precautions Fall Prevention Vital Signs Temperature (97.8 F-99.1 F) 97.8 F 97.1 F L Temperature Source Temporal Temporal Pulse Rate (60-100) 98 86 Pulse Location Monitor Monitor Respiratory Rate (12-18) 18 18 Respiratory rate source Observation Observation Oxygen Delivery Method Room Air Blood Pressure (90/60-120/80) 114/73 126/66 H Blood Pressure Mean (mm Hg) 86 86 Source Monitor Monitor Position Sitting Semi-Fowlers Blood Pressure Location Left Arm Left Arm History Since Last Visit- (Skip if this is Patient's initial visit) Have you changed medications since your No last visit? Any new allergies or adverse reactions No Had a fall/change in ADL's that may No increase risk of falls Signs or symptoms of abuse and/or No neglect since last visit Have you been in the hospital since your No last visit? Has dressing in place as prescribed Yes Has compression in place as prescribed No Has offloadiing in place as prescribed No Experienced any changes in pain level or No management Left Footwear Regular Shoe Right Footwear Regular Shoe Pain Scale: 0-10 Numeric Is Patient Pain Free? Yes Yes WC - Nurse 1 - General Ulcer Measurement Start: 12/12/23 13:13 Freq: Status: Active Protocol: Activity Type Activity Date Activity User E-sign Co-sign Detail Recorded Client Recorded Date Recorded By Document 12/12/23 15:41 MT [id number] 12/12/23 15:44 MT Document 12/19/23 13:17 RB wound 12/19/23 13:20 RB 12/12/23 12/19/23 15:41 13:17 Wound Center Nurse 1 3. right medial calf cluster -Combined with other wound No -Current Size (cm) - Length 7.5 0 -Current Size (cm) - Width 4.5 0 -Current Size (cm) - Depth 0.1 0 -Total Square Cm 33.75 0 -Date of Last Picture (Recall this 12/12/23 field) -Photo Taken Yes Yes -Epithelialization Large 67-100% Large 67-100% -Tunneling No -Undermining/Tunneling No -Circular Undermining No -Exudate Amt None Present -Wound Margin Flat & Intact -Granulation Amt Large (67-100%) -Granulation Quality Pale,[place] -Texture (Brianna-wound Skin Appearance) Assessed -Moisture (Brianna-wound Skin Appearance) Assessed -Color (Brianna-wound Skin Appearance) Assessed -Temperature (Brianna-wound Skin No Abnormality Appearance) (Pt Warm) -Tenderness on Palpation (Brianna-wound No Skin Appearance) -Ulcer Cleansing Soap and Water -Foul Odor after Cleansing No -Anesthetic Used 5% Lidocaine Gel Lower Limb Edema Present NA Yes Right Calf (cm) 28 Right Ankle (cm) 21 WC - Nurse 2 - General Ulcer CM Notes Start: 12/12/23 13:13 Freq: Status: Active Protocol: Activity Type Activity Date Activity User E-sign Co-sign Detail Recorded Client Recorded Date Recorded By Document 12/12/23 15:12 [facility] [id number] 12/12/23 15:13 [facility] Document 12/19/23 13:45 [facility] [id number] 12/19/23 13:45 [facility] 12/12/23 12/19/23 15:12 13:45 Wound Center Nurse 2 3. right medial calf cluster -Time 15:12 -Post Debridement (cm) - Length 7 0 -Post Debridement (cm) - Width 5.5 0 -Post Debridement (cm) - Depth 0.1 0 -Total Square (Post) (cm) 38.5 0 -Area of Debridement (cm) - Length 7 0 -Area of Debridement (cm) - Width 5.5 0 -Total Square (Area) (cm) 38.5 0 -Tunneling No -Undermining/Tunneling No -Circular Undermining No -Wound/Ulcer Outcome Not Healed Healed- Epithelialized -Bleeding Controlled with NA Pain Scale: 0-10 Numeric Is Patient Pain Free? Yes Yes - Nurse 3 - General Ulcer D/C NN Start: 12/12/23 13:13 Freq: Status: Active Protocol: Activity Type Activity Date Activity User E-sign Co-sign Detail Recorded Client Recorded Date Recorded By Document 12/12/23 14:14 RB [id number] 12/12/23 14:17 RB Document 12/19/23 13:50 DL [id number] 12/19/23 13:52 DL 12/12/23 12/19/23 14:14 13:50 Wound Care Center Nurse 3 3. right medial calf cluster -Ulcer Cleansing Rinsed/ Rinsed/ Irrigated with Irrigated with Saline Saline -Foul Odor after Cleansing No -Primary Dressing Applied Mepilex Border -Other Dressing silvadene cream -Primary Dressing Covered/Secured with Dry Gauze,Dry Gauze & Roll Gauze,Secured with Tape -Mepilex Border 1 -Wound Comment(s) healed/ discharged Right -Tubular Bandage Single Layer -Size of Tubigrip Used Size D -Size D ($) 1 Treatment Response Procedure Procedure Tolerated Well Tolerated Well Pain Scale: 0-10 Numeric Is Patient Pain Free? Yes Yes WC - Visit Discharge Discharge Condition Stable Ambulatory Status Wheelchair Transportation Private Auto Private Auto Medication Reconcilliation completed & No provided to patient/care provider Clinical Summary of Care Provided Yes Notes: discharged Assessment/Plan Assessment/Plan (1) Wound of right lower extremity: CODE(S): S81.801A - Unspecified open wound, right lower leg, initial encounter (2) Braces as ambulation aid: CODE(S): Z97.8 - Presence of other specified devices (3) Breast cancer, left breast: CODE(S): C50.912 - Malignant neoplasm of unspecified site of left female breast (4) S/P left mastectomy: CODE(S): Z90.12 - Acquired absence of left breast and nipple PLAN: Plan Patient evaluated at the wound healing center today. Massage lotion at least once daily to help soften the scarring. She may cover the healed scarring to help prevent her leg brace from rubbing against it. Compression - She purchased a compression stocking for her right leg to help protect it from her brace rubbing. Follow up as needed.
--- NOTE | 2023-12-27 11:26 | WC ---
PHOTO 12/19/23 RIGHT MEDIAL LEG
== END 2023-12-21 08:42 | disposition home or self-care (01) ==
LOC: WC 13:00
PROVIDERS: PCP Family Medicine; Referring Provider Nurse Practitioner Family; Visit Provider Nurse Practitioner Family
DX: C50.912 Malignant neoplasm of unspecified site of left female breast (principal); S81.801A Unspecified open wound, right lower leg, initial encounter; Z90.12 Acquired absence of left breast and nipple; Z79.810 Long term (current) use of selective estrogen receptor modulators (SERMs); Z80.3 Family history of malignant neoplasm of breast; Z97.8 Presence of other specified devices; Z98.1 Arthrodesis status
CPT/HCPCS: 99212; 99213; G0463

== ENCOUNTER → 2024-01-17 | Outpatient (CLI) | payer OTHER, SELFPAY ==
--- NOTE | 2024-01-17 14:35 | BI_ITS ---
MAMMOGRAPHY - UNILATERAL SCREENING: RIGHT BREAST REASON FOR EXAM: Female, 43 years old. Routine annual screening examination (unilateral). PERTINENT HISTORY: Personal history of breast cancer. Prior left mastectomy with chemotherapy and radiation therapy. TECHNIQUE: Digital unilateral breast faisal (3D mammographic acquisition) in the CC and MLO projections. 2-D mediolateral oblique (MLO) and craniocaudad (CC) views of both breasts were obtained. CAD: Full Field Digital Mammography with Computer Added Detection was performed. COMPARISON: Comparison is made with prior study dated January 15, 2023 and August 17, 2022. FINDINGS: Breast Composition: There are scattered areas of fibroglandular density. There are no dominant masses or suspicious calcifications. No other significant abnormalities are identified. There has been no significant change since the prior study. BI/SCREEN MAMM (CAD) W/FAISAL UNI R IMPRESSION: Stable unilateral screening mammogram. Yearly follow-up mammogram recommended. (A) ASSESSMENT CATEGORY: BIRADS Category 1: Negative. A letter regarding these results will be sent to the patient by the facility within 30 days. Approximately 10% of breast cancers are not detected by mammography. A normal mammogram should not delay biopsy of a clinically suspicious abnormality. [id number] Electronically Signed: Michael Bal MD at 15:00 EDT ,
== END | disposition home or self-care (01) ==
LOC: OPBI 14:35
PROVIDERS: PCP Family Medicine; Referring Provider Nurse Practitioner Family; Visit Provider Nurse Practitioner Family
DX: Z12.31 Encounter for screening mammogram for malignant neoplasm of breast (principal); Z85.3 Personal history of malignant neoplasm of breast
CPT/HCPCS: 77063; 77067

== ENCOUNTER → 2024-05-23 | Outpatient (CLI) | payer OTHER, SELFPAY ==
--- NOTE | 2024-05-23 12:25 | MRI_ITS ---
STUDY: MRI CERVICAL SPINE WITH AND WITHOUT CONTRAST REASON FOR EXAM: Female, 43 years old. imbalance, right sided neck pain;history of breast TECHNIQUE: Standardized fat and water weighted pulse sequences were obtained in the sagittal and axial following administration of IV 10CC CLARISCAN. COMPARISON: None FINDINGS: Normal foramen magnum and brainstem-cervical cord junction. Normal craniovertebral junction. Normal anterior atlantoaxial articulation. Normal odontoid process. Normal cervical lordosis. Normal vertebral bodies and posterior osseous elements. C2-3: Normal endplates. Normal disc height, signal and morphology. Normal central canal and intervertebral neural foramina. C3-4: Normal endplates. Normal disc height, signal and morphology. Normal central canal and intervertebral neural foramina. C4-5: Normal endplates. Normal disc height, signal and morphology. Normal central canal and intervertebral neural foramina. C5-6: Normal endplates. Normal disc height, signal and morphology. Normal central canal and intervertebral neural foramina. C6-7: Normal endplates. Normal disc height, signal and morphology. Normal central canal and intervertebral neural foramina. C7-T1: Normal endplates. Normal disc height, signal and morphology. Normal central canal and intervertebral neural foramina. Normal cervical cord. Normal visualized soft tissue structures. MRI/Spine Cervical W/WO Contrast IMPRESSION: Normal unenhanced and enhanced MR examination of the cervical spine. Electronically Signed: Matthew Melendez MD at 13:14 EST ,
--- NOTE | 2024-05-23 12:25 | MRI_ITS ---
STUDY: MRI BRAIN WITH AND WITHOUT CONTRAST REASON FOR EXAM: Female, 43 years old. imbalance; h/o breast ca TECHNIQUE: Standardized multiplanar fat and water weighted pulse sequences were obtained. 10cc clariscan was administered for the contrast portion of the examination. COMPARISON: None. FINDINGS: Normal size of the ventricles and extra-axial spaces for the patient''s age. Normal white matter tracts of the supratentorial brain. There is no evidence for recent intracranial ischemia or other cause of cytotoxic edema on diffusion weighted imaging (DWI). Normal T2* images of the brain without demonstrated susceptibility artifact. There is no demonstrated hemosiderin stain. Normal bilateral basal ganglia. Normal thalami. There is no extra-axial fluid accumulation. Normal flow voids within the major intracranial circulation suggesting patency by spin echo criteria. Normal venous enhancement. There is no enhancing intra-axial or extra-axial abnormality. Normal sella turcica, pituitary gland, infundibular stalk, optic chiasm and hypothalamus. Normal tectal plate and pineal gland. Normal midbrain, yobani and medulla. Normal cerebellum. Normal basal cisterns. Normal bilateral temporal bones. Normal bilateral internal auditory canals. No demonstrated orbital abnormality, within the constraints of a routine brain study. Normal visualized paranasal sinuses. Normal calvarium and skull base. Normal visualized soft tissue structures. Normal visualized upper cervical spine. MRI/Brain W/WO Contrast IMPRESSION: Normal unenhanced and enhanced MRI of the brain. Electronically Signed: Matthew Melendez MD at 13:11 EST ,
[2024-05-23] MEDS: 0.9% Saline Lock 10 ML Syringe IV (14:15)
== END | disposition home or self-care (01) ==
LOC: MRI 12:24
PROVIDERS: PCP Family Medicine; Referring Provider Nurse Practitioner Family; Visit Provider Nurse Practitioner Family
DX: R26.89 Other abnormalities of gait and mobility (principal); Z85.3 Personal history of malignant neoplasm of breast; M54.2 Cervicalgia
CPT/HCPCS: 70553; 72156; A9575; A4216

== ENCOUNTER → 2024-10-09 | Outpatient (CLI) | payer OTHER, SELFPAY ==
--- NOTE | 2024-10-09 15:46 | BD_ITS ---
PROCEDURE: DEXA BONE DENSITY/APPEND SKEL 10/09/2024 REASON FOR EXAM: F, age 43 y/o . Osteoporosis.. TECHNIQUE: DXA scan of sites with data reported below. REFERENCE LINKS: [facility] Adult Positions COMPARISON: Prior study dated August 03, 2022. FINDINGS: BMD and T-SCORES Left femoral neck: 0.706 g/cm2, T-score -1.3 Femoral neck comparison data not recommended for monitoring change. Left total hip: 0.699 g/cm2, T-score -2.0 Change from prior: Improvement of 3%. Right femoral neck: 0.524 g/cm2, T-score -2.9 Femoral neck comparison data not recommended for monitoring change. Right total hip: 0.586 g/cm2, T-score -2.9 Change from prior: Loss of 5.5%. Right 1/3 radius: 0.516 g/cm2, T-score -1.2 Change from prior: Improvement of 2.8%. The World Health Organization has defined the following categories based on bone density: Normal bone density: T-score equal to or greater than -1.0 Osteopenia: T-score between -1.0 and -2.5 Osteoporosis: T-score equal to or less than -2.5 The patient does meet the pharmacological treatment recommendations for prevention of osteoporosis. BD/Dexa Bone Density/Append Skel IMPRESSION: OSTEOPOROSIS. Recommend follow-up as clinically warranted. Reading Location: [facility]
== END | disposition home or self-care (01) ==
LOC: OPBD 15:44
PROVIDERS: PCP Family Medicine; Referring Provider Family Medicine; Visit Provider Family Medicine
DX: M81.0 Age-related osteoporosis without current pathological fracture (principal)
CPT/HCPCS: 77081

== ENCOUNTER 2024-11-13 15:30 | Outpatient (RCR) | payer OTHER, SELFPAY ==
--- NOTE | 2024-07-01 17:28 | HP.PTEVAL_ITS ---
Patient's Visit Information Visit Information Visit Information: AMINA ESPOSITO is a 43 year old F referred to Physical Therapy by Dr. Jam Verde MD with a diagnosis of Cervicalgia, imbalance. Date of Evaluation: 07/01/24 Physical Therapist: Sg Carter DPT Visit Plan Frequency: 2x /Week Duration: 6 Weeks Plan: 1) cervical distances, SCM SMT/stretching 2) core and hip strengthening 3) static and dynamic balance training 4) progression without Ad to increase stability/safety. May use Functional balance assessment if balance is not progressing. Subjective Subjective: Pt. is here today for her initial evaluation with diagnosis of cervicalgia, imbalance. PMH of musculature dystrophia and more recent breast cancer. During her CA treatment she has a wound on her leg and was unable to wear her braces and feels like she has become weaker since. Pt. reports falling ~1 year ago when she face planted. Pt. reports having issues with her neck and fear of falling since. Pt. has been using a walker or walking behind a wc for stability. She is occasionally walking without AD. She reports walking with wide YUNIEL for stability. She reports occasionally feeling like she is falling to the L side. Pt. reports having L sided neck pain. Pt. did have an MRI of both brain and cervical spine both reading normal. Pt. reports having some occasional L arm tingling at time. Pt. feeling her neck issue is adding to her imbalance and due to her MD this is effecting her more. Pt. is hopeful to improve her off feeling in order to get back to all work and recreational activities with decreased risk for falls. Pain Cervical spine: Pain Intensity (Out of 10): 5 Comment: L side of cervical spine Objective Objective: POSTURE: Pt. has wide YUNIEL in stance. Pt. does have 2 leg braces that lock out while standing to increase LE stability. Pt. has marked thoracic scoliosis as well. PALPATION: Pt. has tenderness at L SCM and upper cervical sine. NEURO: normal sensation in BUEs. No radicular UE symptoms noted. Negative vertebral artery test. ROM: cervical spine: flexion max loss mild increase NW, ext min/nil loss NE, SB R mod loss increase NW, SB L min loss NE, rotation mod loss bilat NE. MMT: Pt. has full strength of BUEs.. Pt. does have marked weakness in BLEs, distally she does not have much strength at all due to her MD. Pt. has 4-/5 B hip abduction strength, ext 4/5 bilat flexion 4-/5 bilat. Core strength poor. GAIT: pt. ambulates with wide YUNIEL. Leg braces locked out in extension, reducing foot clearance. She had large lateral sway to advance LEs. Pt. was able to decrease YUNIEL with CGA. Balance/Special Test Scores Functional Gait Assessment Score: 7 % Disability: 76.6700 CATSIB Score (Max score 120 seconds): 41 Oswestry Neck Score: 13 TUG Test Time Seconds: 33 Goals Goal 1:: LTG: Pt. to be I with HEP. Goal Time Frame: 4-6 Weeks Goal 2:: LTG: pt. to reports no occurrences of off feeling with all work activities and with cervical mobility. Goal Time Frame: 4-6 Weeks Goal 3:: LTG: Pt. to have increased core and B hip strength to at least 4+/5 throughout. Goal Time Frame: 4-6 Weeks Goal 4:: LTG: Pt. to have increased FGA to 15/30 indicating improved stability and reduced risk for falls. Goal Time Frame: 6-8 Weeks Goal 5:: LTG: pt. to ambulate 150' with out AD with more narrow YUNIEL and without need to hold onto AD or person for assistance. Goal Time Frame: 4-6 Weeks Rehabilitation Potential Physical Therapy Diagnosis: Pt. has signs and symptoms consistent with cervicalgia and imbalance. Pt. has a PMH of MD resulting in distal LE weakness. Pt. has what appears to be an off feeling/imbalance due to some possibly tigthness at SCM on L side. She also has marked weakness throughout LEs, worse distally. Pt. would benefit from PT to address her limitations progressing her LE strength and imbalance in order to get back to all previous work related activities. Rehabilitation Potential: Good Anticipated Interventions Patient/Client Instruction: Educate patient on: Condition, Plan of Care, Risk Factors and Benefits of Fitness Program For the Purpose of:: To improve decision making, To facilitate caregiver knowledge, To improve self management, To prevent re-injury, To improve ability to perform tasks related to life management and To improve tolerance to ADL's Therapeutic Exercise to Include: Strength training, Power training, Balance training, Postural training, Neuromotor development and via Neurocom Balance Mas For the Purpose of:: To decrease pain, To increase ROM, To improve nutrient delivery to tissue, To increase oxygenation perfusion, To improve ability to perform ADL's, To increase tolerance to activity/condition/position, To improve gait and locomotor functions, To improve health of tissue, To increase flexibility/ROM and To improve endurance Manual Therapy Techniques to Include: Mobilization, Functional dry needling and Soft tissue mobilization For the Purpose of:: To decrease pain, To decrease swelling/inflammation, To increase ROM and To improve nutrient delivery to tissue Text: Thank you for the opportunity to evaluate your patient. For Medicare and Medicare HMO plans, please review the plan of care and approve it. It will need to be FAXED BACK to us at [phone] for Medicare purposes. For Medicare only, by signing this I certify the plan of care. Please let me know if there are questions or concerns regarding this plan of care. Physician Signature: Date:
== END 2024-11-13 19:00 | disposition home or self-care (01) ==
LOC: PT 15:30
PROVIDERS: PCP Family Medicine; Referring Provider Family Medicine; Visit Provider Family Medicine
DX: M54.2 Cervicalgia (principal); R26.89 Other abnormalities of gait and mobility; M79.10 Myalgia, unspecified site
CPT/HCPCS: 97110; 97140; 97161; 97164

== ENCOUNTER 2024-12-21 21:31 | Emergency (ER) | payer OTHER, SELFPAY ==
[2024-12-21 21:32] VITALS: BP 123/82; PULSE 89; RESP 18; TEMP 37.2; O2SAT 100; BMI 23.6
--- OUTSIDE RECORDS SUMMARY | 2024-12-21 22:03 | XMS RPT_ITS | CCD ---
Author Organization [facility] Care Team Providers Care Direct Support Staff Member Name Role Phone Dr. Jam Verde Primary Care Provider [phone] Dr. Jam Verde Referring Provider Dr. Samantha Osorio Attending Provider Keysha [place], Danielle Prince Primary Care Provider Dr. Theodore Perez Attending Provider Dr. Malik Gómez Attending Provider 1([facility])[phone] Samantha Osorio Referring Provider Dr. Samantha Osorio Other Provider Nurse, Surgery Attending Provider Unavailable Mary DIRECTOR RECREATION, DIRECTOR RECREATION-C Chelsea Attending Provider Dr. Jam Verde Primary Care Provider [phone] Dr. Jam Verde Referring Provider [phone] Dr. Samantha Osorio Attending Provider Dr. Theodore Perez Attending Provider Dr. Malik Gómez Attending Provider Dr. Samantha Osorio Referring Provider Dr. Samantha Osorio Other Provider Nurse, Surgery Attending Provider Unavailable Mary DIRECTOR RECREATION, DIRECTOR RECREATION-C Chelsea Attending Provider Zheng DIRECTOR RECREATION, DIRECTOR RECREATION-C Kathrin E Attending Provider Zheng DIRECTOR RECREATION, DIRECTOR RECREATION-C Kathrin E Referring Provider Zheng DIRECTOR RECREATION, DIRECTOR RECREATION-C Kathrin E Other Provider Dr. Jam Verde Primary Care Provider Dr. Samantha Osorio Attending Provider Dr. Jam Verde Referring Provider Dr. Jam Verde Primary Care Provider Dr. Jam Verde Referring Provider Dr. Samantha Osorio Attending Provider Dr. Theodore Perez Attending Provider Dr. Quentin Martínez Emergency Provider 1([facility])[phone] Ernestina Rene Admit Provider Dr. Ernestina Rene Attending Provider Dr. Ernestina Rene Other Provider Dr. Jonatan Michel Attending Provider Dr. Renzo Hayden Other Provider Dr. Carlyle Sparks Other Provider Dr. Theodore Perez Other Provider Dr. Reed Mcgrath Other Provider Dr. Kiko Kiran Other Provider Unavailable Dr. Franki Laguerre Other Provider Dr. Klaus Cartagena Other Provider Mary DIRECTOR RECREATION, DIRECTOR RECREATION-C Chelsea Other Provider Dr. Reed Rodarte Other Provider Dr. Nicole Davis Attending Provider Saqib SARABIA, PA-C Lisa Attending Provider Dr. Tapan Bryant Other Provider Dr. John Griffin Other Provider Dr. Abebe Paiz Other Provider Dr. Devin Zabala Other Provider Unavailab chris Morley DIRECTOR RECREATION, DIRECTOR RECREATION-C Mayra Other Provider Dr. John Griffin Attending Provider Dr. Pan Garrett Attending Provider Dr. Jam Verde Primary Care Provider Dr. Jam Verde Referring Provider Mary DIRECTOR RECREATION, DIRECTOR RECREATION-C Chelsea Attending Provider Dr. Theodore Perez Attending Provider Dr. Malik Gómez Attending Provider Zheng DIRECTOR RECREATION, DIRECTOR RECREATION-C Kathrin E Attending Provider Zheng DIRECTOR RECREATION, DIRECTOR RECREATION-C Kathrin E Referring Provider Zheng DIRECTOR RECREATION, DIRECTOR RECREATION-C Kathrin E Other Provider Dr. Quentin Martínez Emergency Provider Dr. Ernestina Rene Admit Provider Dr. Ernestina Rene Attending Provider Dr. Ernestina Rene Other Provider Dr. Samantha Osorio Other Provider Dr. Jonatan Michel Attending Provider Dr. Renzo Hayden Other Provider Dr. Carlyle Sparks Other Provider Dr. Theodore Perez Other Provider Dr. Reed Mcgrath Other Provider Dr. Kiko Kiran Other Provider Unavailable Dr. Franki Laguerre Other Provider Dr. Klaus Cartagena Other Provider Mary DIRECTOR RECREATION, DIRECTOR RECREATION-C Chelsea Other Provider Dr. Reed Rodarte Other Provider Dr. Ernestina Rene Referring Provider Dr. Samantha Osorio Attending Provider Saqib SARABIA PALa Nena Gonzalez Attending Provider Dr. Jace Fulton Attending Provider Dr. Nicole Davis Referring Provider Dr. Tapan Bryant Other Provider Dr. John Griffin Other Provider Dr. Abebe Paiz Other Provider Dr. Devin Zabala Other Provider Unavailab chris Morley DIRECTOR RECREATION, DIRECTOR RECREATION-C Mayra Other Provider Dr. John Griffin Attending Provider 1([facility])[phone] Pan Garrett Attending Provider 1([facility] )[phone] Stone, Dr. Edilberto Booth Admit Provider Stone, Dr. Edilberto Booth Other Provider Semenlucho, Dr. Anabela Escobar Attending Provider Dr. Reed Ramirez Attending Provider 1([facility])[phone] Semenlucho, Dr. Anabela Escobar Referring Provider Semenlucho, Dr. Anabela Escobar Other Provider Friend, Dr. Alba Attending Provider 1([facility])[phone] Dr. Samantha Osorio Referring Provider 1([facility])[phone] [facility])[phone] Jam Verde Primary Care Provider 1([facility])[phone] Dr. Jam Verde Referring Provider 1([facility])[phone] Theodore Perez Attending Provider 1([facility])[phone] Mary DIRECTOR RECREATION, DIRECTOR RECREATION-C Chelsea Attending Provider Semenlucho, Dr. Anabela Escobar Admit Provider Dr. Jam Verde Primary Care Provider Dr. Jam Verde Referring Provider 1([facility])[phone] Theodore Perez Attending Provider Dr. Klaus Cartagena Attending Provider Dr. Jam Verde Primary Care Provider 1([facility])[phone] Dr. Jam Verde Referring Provider Mary DIRECTOR RECREATION, DIRECTOR RECREATION-C Chelsea Attending Provider Zheng DIRECTOR RECREATION, DIRECTOR RECREATION-C Kathrin E Attending Provider Zheng DIRECTOR RECREATION, DIRECTOR RECREATION-C Kathrin E Referring Provider Zheng DIRECTOR RECREATION, DIRECTOR RECREATION-C Kathrin E Other Provider Dr. Theodore Perez Attending Provider Dr. Jam Verde Primary Care Provider Dr. Jam Verde Referring Provider Dr. Theodore Perez Attending Provider Zheng DIRECTOR RECREATION, DIRECTOR RECREATION-C Kathrin E Attending Provider Zheng DIRECTOR RECREATION, DIRECTOR RECREATION-C Kathrin E Referring Provider Zheng DIRECTOR RECREATION, DIRECTOR RECREATION-C Kathrin E Other Provider Mary DIRECTOR RECREATION, DIRECTOR RECREATION-C Chelsea Attending Provider Dr. Quentin Martínez Emergency Provider Dr. Ernestina Rene Admit Provider Dr. Ernestina Rene Attending Provider Dr. Ernestina Reen Other Provider Dr. Samantha Osorio Other Provider Dr. Jonatan Michel Attending Provider Dr. Renzo Hayden Other Provider Dr. Carlyle Sparks Other Provider Dr. Theodore Perez Other Provider Dr. Reed Mcgrath Other Provider Dr. Kiko Kiran Other Provider Unavailable Dr. Franki Laguerre Other Provider Dr. Klaus Cartagena Other Provider Mary DIRECTOR RECREATION, DIRECTOR RECREATION-C Chelsea Other Provider Dr. Reed Rodarte Other Provider Dr. Ernestina Rene Referring Provider Dr. Samantha Osorio Attending Provider ALYSHA Abbasi Attending Provider Dr. Jace Fulton Attending Provider Dr. Nicole Davis Referring Provider Dr. Tapan Bryant Other Provider Dr. John Griffin Other Provider Dr. Abebe Paiz Other Provider Dr. Devin Zabala Other Provider Unavailab chris Morley DIRECTOR RECREATION, DIRECTOR RECREATION-C Mayra Other Provider Dr. John Griffin Attending Provider Dr. Pan Garrett Attending Provider Stone, Dr. Edilberto Booth Admit Provider Dr. Edilberto Ritter Chi Other Provider Nighat, Dr. Anabela Escobar Attending Provider Dr. Reed Ramirez Attending Provider Semenlucho, Dr. Anabela Escobar Referring Provider Semenlucho, Dr. Anabela Escobar Other Provider Carson, Dr. Alba Attending Provider Dr. Samantha Osorio Referring Provider 1([facility])[phone] Dr. Samantha Osorio Admit Provider Semenlucho, Dr. Anabela Ecsobar Admit Provider Dr. Klaus Cartagena Attending Provider Dr. Klaus Cartagena Referring Provider Dr. Jam Verde Primary Care Provider Zheng DIRECTOR RECREATION, DIRECTOR RECREATION-C Kathrin E Attending Provider [phone] Zheng DIRECTOR RECREATION, DIRECTOR RECREATION-C Kathrin E Referring Provider Zheng DIRECTOR RECREATION, DIRECTOR RECREATION-C Kathrin E Other Provider Dr. Jam Verde Referring Provider 1([facility])[phone] Mary DIRECTOR RECREATION, DIRECTOR RECREATION-C Chelsea Attending Provider Dr. Theodore Perez Attending Provider Dr. Jam Verde Primary Care Provider 1([facility])[phone] Dr. Jam Verde Referring Provider 1([facility])[phone] Klaus Cartagena Attending Provider 1([facility])[phone] Dr. Theodore Perez Attending Provider Dr. Samantha Osorio Attending Provider 1([facility])[phone] Dr. Jonatan Michel Attending Provider 1([facility])[phone] Mary DIRECTOR RECREATION, DIRECTOR RECREATION-C Chelsea Attending Provider 1([facility] )[phone] Dr. Klaus Cartagena Referring Provider 1([facility])[phone] Dr. Samantha Osorio Referring Provider 1([facility])[phone] Dr. Samantha Osorio Other Provider 1([facility])[phone] Malik Gómez Attending Provider 1([facility])[phone] Jam Verde Primary Care Provider 1([facility])[phone] Dr. Jam Verde Referring Provider 1([facility])[phone] Klaus Cartagena Attending Provider 1([facility])[phone] Dr. Samantha Osorio Attending Provider 1([facility])[phone] Mary DIRECTOR RECREATION, DIRECTOR RECREATION-C Chelsea Referring Provider 1([facility] )[phone] Dr. Theodore Perez Attending Provider 1([facility])[phone] Dr. Jam Verde Primary Care Provider 1([facility])[phone] Dr. Jam Verde Referring Provider 1([facility])[phone] Mary DIRECTOR RECREATION, DIRECTOR RECREATION-C Chelsea Attending Provider 1([facility] )[phone] Dr. Klaus Cartagena Attending Provider 1([facility])[phone] Dr. Klaus Cartagena Referring Provider 1([facility])[phone] Dr. Jam Verde Primary Care Provider 1([facility])[phone] Dr. Klaus Cartagena Attending Provider 1([facility])[phone] Dr. Klaus Cartagena Referring Provider Dr. Jam Verde Referring Provider Mary DIRECTOR RECREATION, DIRECTOR RECREATION-C Chelsea Attending Provider Dr. Samantha Osorio Attending Provider Dr. Jam Verde Primary Care Provider Dr. Klaus Cartagena Attending Provider Dr. Klaus Cartagena Referring Provider Dr. Jam Verde Primary Care Provider Dr. Klaus Cartagena Attending Provider Dr. Klaus Cartagena Referring Provider Dr. Jam Verde Referring Provider 1([facility])[phone] Mary DIRECTOR RECREATION, DIRECTOR RECREATION-C Chelsea Attending Provider Zheng DIRECTOR RECREATION, DIRECTOR RECREATION-C Kathrin E Attending Provider Zheng DIRECTOR RECREATION, DIRECTOR RECREATION-C Kathrin E Other Provider Dr. Jam Verde Primary Care Provider Dr. Klaus Cartagena Attending Provider Zheng DIRECTOR RECREATION, DIRECTOR RECREATION-C Kathrin E Referring Provider [phone] Dr. Jam Verde Primary Care Provider Dr. Jam Verde Referring Provider 1([facility])[phone] Theodore Perez Attending Provider Mary DIRECTOR RECREATION, DIRECTOR RECREATION-C Chelsea Attending Provider Dr. Jam Verde MD Primary Care Provider Dr. Jam Verde MD Referring Provider Mayr DIRECTOR RECREATION-C, Chelsea Attending Provider Dr. Jam Verde MD Attending Provider Dr. Theodore Perez MD Attending Provider Dr. Theodore Perez MD Referring Provider Mary DIRECTOR RECREATION-C, Chelsea Other Provider Dr. Theodore Perez MD Attending Provider Dr. Theodore Perez MD Referring Provider Mary DIRECTOR RECREATION-C, Chelsea Other Provider Verde, Jam Primary Care Unavailable Katja Nieves Attending Unavailable Verde, Jam Referring Unavailable Verde, Jam Primary Care Unavailable Mary, Chelsea Attending Unavailable Verde, Jam Referring Unavailable Theodore Perez Attending Unavailable Theodore Perez Referring Unavailable Verde, Jam Primary Care Unavailable Mary, Chelsea Consulting Unavailable Verde, Jam Primary Care Unavailable Mary, Chelsea Attending Unavailable Verde, Jam Referring Unavailable Verde, Jam Primary Care Unavailable Mary, Chelsea Attending Unavailable Mary, Chelsea Referring Unavailable Verde, Jam Primary Care Unavailable Verde, Jam Attending Unavailable Verde, Jam Referring Unavailable Provider, Ed Physician Attending Unavailab le Verde, Jam Primary Care Unavailable Verde, Jam Attending Unavailable Verde, Jam Referring Unavailable Verde, Jam Primary Care Unavailable Mary, Chelsea Referring Unavailable Verde, Jam Primary Care Unavailable Mary, Chelsea Attending Unavailable Theodore Perez Attending Unavailable Verde, Jam Referring Unavailable Verde, Jam Primary Care Unavailable Theodore Perez Attending Unavailable Verde, Jam Primary Care Unavailable Verde, Jam Referring Unavailable Verde, Jam Primary Care Unavailable Klaus Cartagena Attending Unavailable Allergies Allergy Classification Reported Allergen(s) Allergy Type Date of Onset Reaction(s) Facility (20 sources) Penicillins; Translations: [Penicillins] Allergy to substance 9 unknown, Anaphylaxis [facility] (20 sources) kiwi Allergy to substance 9 unknown, Anaphylaxis [facility] (18 sources) Gadolinium-MRI Contrast Medium Propensity to adverse reactions 2 Shortness of breath [facility] (1 source) Gadolinium-MRI Contrast Medium Drug allergy (disorder) 5 [facility] Repository (1 source) kiwi Drug allergy (disorder) 5 [facility] Repository Medications Current Medications Medication Drug Class(es) Dates Sig (Normalized) Sig (Original) acetaminophen 32 mg/ml oral solution (4 sources) Start: 05-28-2022 ascorbic acid 500 mg oral tablet (20 sources) Vitamin C Start: 06-27-2022 End: 06-30-2022 take 1 tablet by mouth twice daily at mealtime Ascorbic Acid (Vitamin C) 500 mg tablet Active 500 mg PO TWICE DAILY WITH MEALS June 30, 2022 5:22pm calcitriol 0.0005 mg oral capsule (16 sources) Vitamin D3 Analog Start: 07-12-2022 take 1 capsule by mouth once daily Calcitriol 0.5 mcg capsule Active 0.5 ug PO DAILY July 12, 2022 5:56pm fluticasone propionate 0.05 mg/actuat metered dose nasal spray (7 sources) Corticosteroid Start: 01-25-2022 take 1 spray(s) nasal route once daily Fluticasone Propionate (Flonase Allergy Relief) 50 mcg/actuation spray,suspension Active 1 SPRAY INTRANASAL DAILY January 24, 2022 11:00pm administer into each nostril magnesium chloride 598 mg delayed release oral tablet (20 sources) Start: 07-12-2022 Magnesium Chloride (Mag 64) 64 mg Tablet,Delayed Release (Dr/Ec) Active 128 mg PO THREE TIMES A DAY 180 July 12, 2022 1:00am Start: 06-27-2022 End: 07-12-2022 Magnesium Chloride (Mag 64) 64 mg tablet,delayed release (DR/EC) Discontinued 128 mg PO TWICE A DAY June 30, 2022 5:22pm July 12, 2022 5:48pm Start: 06-27-2022 End: 07-12-2022 Magnesium Chloride (Mag 64) 64 mg Tablet,Delayed Release (Dr/Ec) Active 128 MG PO THREE TIMES A DAY 180 July 12, 2022 12:00am methylPREDNISolone 4 mg oral tablet (5 sources) Corticosteroid Start: 08-22-2018 take 1 tablet by mouth once Methylprednisolone (Medrol (Juan)) 4 mg tablets,dose pack Active 0 PO per package directions August 22, 2018 12:00am PO PER PKG DIR mirtazapine 7.5 mg oral tablet (20 sources) Start: 04-16-2023 take 1 tablet by mouth once daily Mirtazapine 7.5 mg tablet Active 7.5 mg PO DAILY April 16, 2023 1:00am Start: 06-27-2022 End: 07-12-2022 Mirtazapine 15 mg tablet Discontinued 22.5 mg PO AT BEDTIME June 30, 2022 5:22pm July 12, 2022 5:49pm Start: 06-27-2022 End: 07-12-2022 take 22.5 mg by mouth at bedtime Mirtazapine Discontinued 22.5 MG PO AT BEDTIME June 30, 2022 4:22pm July 12, 2022 4:49pm Start: 06-27-2022 End: 07-12-2022 nystatin [id number] unt/ml oral suspension (1 source) Polyene Antifungal Start: 03-28-2022 take 1 mL by mouth every six hours Nystatin Active 5 ML PO EVERY 6 HOURS March 27, 2022 11:00pm swish and swallow pantoprazole 40 mg delayed release oral tablet (20 sources) Proton Pump Inhibitor Start: 07-12-2022 take 1 tablet by mouth twice daily Pantoprazole 40 mg Tablet,Delayed Release (Dr/Ec) Active 40 mg PO TWICE A DAY 60 July 12, 2022 1:00am Start: 06-27-2022 End: 07-12-2022 take 2 tablets by mouth twice daily Pantoprazole 20 mg tablet,delayed release (DR/EC) Discontinued 40 mg PO TWICE A DAY June 30, 2022 5:22pm July 12, 2022 5:49pm Start: 06-27-2022 End: 07-12-2022 take 40 mg by mouth twice daily Pantoprazole Discontinued 40 MG PO TWICE A DAY June 30, 2022 4:22pm July 12, 2022 4:49pm Start: 05-28-2022 End: 06-27-2022 take 1 tablet by mouth once daily Pantoprazole 40 mg tablet,delayed release (DR/EC) Discontinued 40 mg PO DAILY May 28, 2022 6:54pm June 27, 2022 11:28am Start: 05-28-2022 End: 06-27-2022 predniSONE 50 mg oral tablet (12 sources) Start: 04-17-2024 Prednisone 50 mg tablet Active 50 mg PO .COMPLEX 3 April 17, 2024 1:00am 50 mg orally at 13 hrs, 7 hours and 1 hour prior to imaging Start: 11-20-2022 End: 01-01-2023 Prednisone 50 mg Tablet Disc ontinued 50 mg PO EVERY 6 HOURS 3 November 20, 2022 12:00am January 01, 2023 11:09am Take 50 Mg At 13 hours, 7 hours and [address] scan scheduled December 04, 2022 promethazine hydrochloride 1 2.5 mg rectal suppository (3 sources) Phenothiazine Start: 07-12-2022 Sodium Chloride 0.9 % (Flush ) (19 sources) Start: 06-27-2022 Start: 05-28-2022 Start: 05-28-2022 End: 05-28-2022 Sodium Chloride 0.9 % (Flush ) (Normal Saline Flush) Syringe Discontinued 10 - 40 mL IV DIRECTED as needed for Port access or dressing change 0 May 28, 2022 1:00am May 28, 2022 6:54pm Start: 05-28-2022 End: 05-28-2022 Sodium Chloride 0.9 % (Flush ) (Normal Saline Flush) Syringe Discontinued 10 - 40 ML IV DIRECTED 0 May 28, 2022 12:00am May 28, 2022 5:54pm Start: 05-28-2022 End: 05-28-2022 Sodium Chloride 0.9 % (Flush ) (Normal Saline Flush) Syringe Discontinued 10 - 40 ML IV DIRECTED 0 May 28, 2022 1:00am May 28, 2022 6:54pm Start: 05-28-2022 End: 05-28-2022 (20 sources) Start: 07-12-2022 Start: 06-30-2022 End: 07-12-2022 Start: 06-30-2022 End: 06-30-2022 Start: 06-30-2022 Start: 06-27-2022 End: 06-30-2022 Start: 05-28-2022 End: 06-27-2022 Start: 05-28-2022 End: 06-27-2022 Start: 05-28-2022 End: 05-28-2022 Start: 05-22-2022 End: 06-27-2022 Start: 03-28-2022 End: 05-22-2022 Start: 02-28-2022 End: 06-27-2022 Start: 01-25-2022 End: 02-28-2022 Completed/Discontinued Medications Medication Drug Class(es) Dates Sig (Normalized) Sig (Original) acetaminophen 325 mg / oxyCODONE hydrochloride 5 mg oral tablet (13 sources) Opioid Agonist Start: 08-17-2022 End: 01-01-2023 Oxycodone-Acetamino phen 5-325 mg tablet Discontinued 1 {tbl} PO EVERY 6 HOURS as needed for pain 5 3 August 17, 2022 January 01, 2023 11:08am Start: 08-17-2022 End: 01-01-2023 take 1 tablet by mouth every six hours Oxycodone-Acetaminophen Discontinued 1 TABLET PO EVERY 6 HOURS 5 3 August 17, 2022 January 01, 2023 10:08am Start: 08-17-2022 cholecalciferol 0.025 mg oral tablet (20 sources) Vitamin D Start: 06-27-2022 End: 07-12-2022 take 1 tablet by mouth once daily Cholecalciferol (Vitamin D3) 25 mcg (1,000 unit) tablet Discontinued 50 ug PO DAILY June 30, 2022 5:22pm July 12, 2022 5:56pm Start: 01-25-2022 End: 06-27-2022 take 1 capsule by mouth once daily Cholecalciferol (Vitamin D3) 25 mcg (1,000 unit) capsule Discontinued 2000 U PO DAILY January 25, 2022 12:59pm June 27, 2022 11:30am Start: 01-25-2022 End: 06-27-2022 take 2 capsules by mouth once daily cholecalciferol (vitamin D3) 1,000 unit capsule Discontinued 2000 UNIT PO DAILY January 25, 2022 11:59am June 27, 2022 10:30am Start: 08-22-2018 End: 01-25-2022 take 1 capsule by mouth once daily Cholecalciferol (Vitamin D3) 1,000 unit capsule Discontinued 1000 U PO DAILY August 22, 2018 12:00am January 25, 2022 1:03pm Start: 08-22-2018 End: 06-27-2022 cholestyramine resin 4000 mg powder for oral suspension (20 sources) Bile Acid Sequestrant Start: 06-30-2022 End: 07-12-2022 take 8 g by mouth three times daily before mealtime Cholestyramine (With Sugar) Discontinued 8 GM PO THREE TIMES DAILY BEFORE MEALS June 30, 2022 4:22pm July 12, 2022 4:56pm Start: 06-27-2022 End: 07-12-2022 Cholestyramine (With Sugar) 4 gram powder in packet Discontinued 8 g PO THREE TIMES DAILY BEFORE MEALS June 30, 2022 5:22pm July 12, 2022 5:56pm dexamethasone 4 mg oral tablet (20 sources) Corticosteroid Start: 02-24-2022 End: 05-28-2022 take 2 tablets by mouth twice daily Dexamethasone 4 mg tablet Discontinued 8 mg PO .COMPLEX May 23, 2022 12:03am May 28, 2022 4:17pm 8 mg orally; twice daily ONLY the day before, day of and the day after chemotherapy Start: 02-24-2022 End: 05-28-2022 take 8 mg by mouth twice daily Dexamethasone Discontin ued 8 MG PO .COMPLEX May 22, 2022 11:03pm May 28, 2022 3:17pm 8 mg orally; twice daily ONLY the day before, day of and the day after chemotherapy docusate sodium 50 mg / sennosides, fpc 8.6 mg oral tablet (17 sources) Start: 05-28-2022 End: 06-27-2022 Sennosides-Docusate Sodium ( Stool Softener-Stimulant Laxat) 8.6-50 mg Tablet Discontinued 2 {tbl} PO TWICE DAILY NEEDED as needed for Constipation 0 May 28, 2022 1:00am June 27, 2022 11:30am Start: 05-28-2022 End: 06-27-2022 doxycycline monohydrate 100 mg oral tablet (20 sources) Tetracycline-class Drug Start: 05-09-2022 End: 05-15-2022 take 1 tablet by mouth twice daily Doxycycline Monohydrate 100 mg tablet Discontinued 100 mg PO TWICE A DAY May 09, 2022 1:00am May 15, 2022 2:09pm Start: 04-05-2022 End: 05-02-2022 take 1 tablet by mouth twice daily Doxycycline Monohydrate 100 mg tablet Discontinued 100 mg PO TWICE A DAY April 05, 2022 1:00am May 02, 2022 11:57am DULoxetine 20 mg delayed release oral capsule (20 sources) Serotonin and Norepinephrine Reuptake Inhibitor Start: 01-25-2022 End: 06-27-2022 take 1 capsule by mouth once daily Duloxetine 20 mg capsule,delayed release(DR/EC) Discontinued 20 mg PO DAILY January 25, 2022 12:00am June 27, 2022 11:26am escitalopram 5 mg oral tablet (20 sources) Serotonin Reuptake Inhibitor Start: 08-22-2018 End: 01-25-2022 Escitalopram Oxalate 5 mg tablet Discontinued PO August 22, 2018 12:00am January 25, 2022 12:59pm Start: 08-22-2018 End: 01-25-2022 Escitalopram Oxalate Discont inued PO August 21, 2018 11:00pm January 25, 2022 11:59am Food Supplemt, Lactose-Reduc ed (Ensure Plus High Protein) 0.08 gram-1.5 kcal/mL Liquid (11 sources) Start: 05-28-2022 End: 05-28-2022 Food Supplemt, Lactose-Reduc ed (Ensure Plus High Protein) 0.08 gram-1.5 kcal/mL Liquid Discontinued 120 mL PO 4 TIMES DAILY 0 May 28, 2022 1:00am May 28, 2022 6:54pm Start: 05-28-2022 End: 05-28-2022 Food Supplemt, Lactose-Reduc ed (Ensure Plus High Protein) 0.08 gram-1.5 kcal/mL Liquid Discontinued 120 ML PO 4 TIMES DAILY 0 May 28, 2022 12:00am May 28, 2022 5:54pm Start: 05-28-2022 End: 05-28-2022 Food Supplemt, Lactose-Reduc ed (Ensure Plus High Protein) 0.08 gram-1.5 kcal/mL Liquid Discontinued 120 ML PO 4 TIMES DAILY 0 May 28, 2022 1:00am May 28, 2022 6:54pm Food Supplemt, Lactose-Reduc ed (Ensure Plus High Protein) 0.08 gram-1.5 kcal/mL liquid (11 sources) Start: 05-28-2022 End: 06-27-2022 Food Supplemt, Lactose-Reduc ed (Ensure Plus High Protein) 0.08 gram-1.5 kcal/mL liquid Discontinued 120 mL PO 4 TIMES DAILY May 28, 2022 6:54pm June 27, 2022 11:26am [place] per Dr Juares for pt to have Protein shake from home Start: 05-28-2022 End: 06-27-2022 Food Supplemt, Lactose-Reduc ed (Ensure Plus High Protein) 0.08 gram-1.5 kcal/mL liquid Discontinued 120 ML PO 4 TIMES DAILY May 28, 2022 5:54pm June 27, 2022 10:26am [place] per Dr Juares for pt to have Protein shake from home Start: 05-28-2022 End: 06-27-2022 Food Supplemt, Lactose-Reduc ed (Ensure Plus High Protein) 0.08 gram-1.5 kcal/mL liquid Discontinued 120 ML PO 4 TIMES DAILY May 28, 2022 6:54pm June 27, 2022 11:26am [place] per Dr Juares for pt to have Protein shake from home Heparin, Porcine (Pf) (20 sources) Unfractionated Heparin, Anti-coagulant Start: 06-30-2022 End: 07-12-2022 Heparin, Porcine (Pf) 10 unit/mL syringe Discontinued 50 U IV DIRECTED June 30, 2022 5:22pm July 12, 2022 5:47pm Start: 06-30-2022 End: 07-12-2022 Heparin, Porcine (Pf) Discon tinued 50 UNITS IV DIRECTED June 30, 2022 4:22pm July 12, 2022 4:47pm Start: 06-30-2022 End: 07-12-2022 Heparin, Porcine (Pf) Discon tinued 50 UNITS IV DIRECTED June 30, 2022 5:22pm July 12, 2022 5:47pm Start: 06-30-2022 End: 07-12-2022 Start: 06-27-2022 End: 06-30-2022 Heparin, Porcine (Pf) 10 uni t/mL Syringe Discontinued 50 U IV DIRECTED 0 June 27, 2022 1:00am June 30, 2022 5:23pm Start: 06-27-2022 End: 06-30-2022 Heparin, Porcine (Pf) Discon tinued 50 UNITS IV DIRECTED June 27, 2022 12:00am June 30, 2022 4:23pm Start: 06-27-2022 End: 06-30-2022 Heparin, Porcine (Pf) Discon tinued 50 UNITS IV DIRECTED June 27, 2022 1:00am June 30, 2022 5:23pm Start: 06-27-2022 End: 06-30-2022 Start: 06-27-2022 levoFLOXacin 500 mg oral tablet (20 sources) Quinolone Antimicrobial Start: 05-22-2022 Levofloxacin Active MG May 22, 2022 12:00am Start: 05-15-2022 End: 05-28-2022 take 1 tablet by mouth once daily Levofloxacin 500 mg tablet Discontinued 500 mg PO DAILY May 23, 2022 12:03am May 28, 2022 4:17pm lidocaine 25 mg/ml / prilocaine 25 mg/ml topical cream (20 sources) Antiarrhythmic, Amide Local Anesthetic Start: 02-23-2022 End: 07-12-2022 Lidocaine-Prilocaine 2.5-2.5 % cream Discontinued 1 NMA TOPICAL ONCE as needed for port access February 23, 2022 12:00am July 12, 2022 5:47pm Start: 02-23-2022 End: 07-12-2022 Lidocaine-Prilocaine Discont inued 1 APPLIC TOPICAL ONCE February 22, 2022 11:00pm July 12, 2022 4:47pm Start: 02-23-2022 End: 07-12-2022 loperamide hydrochloride 2 mg oral capsule (20 sources) Opioid Agonist Start: 05-28-2022 End: 07-12-2022 take 2 capsules by mouth every four hours as needed for diarrhea Loperamide 2 mg Capsule Discontinued 4 mg PO EVERY 4 HOURS NEEDED as needed for Diarrhea May 28, 2022 1:00am July 12, 2022 5:48pm Start: 05-28-2022 End: 07-12-2022 take 4 mg by mouth every four hours as needed Loperamide Discontinued 4 MG PO EVERY 4 HOURS NEEDED May 28, 2022 12:00am July 12, 2022 4:48pm Magic Mouth Wash (Bmx) (20 sources) Start: 05-22-2022 End: 06-27-2022 Magic Mouth Wash (Bmx) Disco ntinued 15 ML PO .Q6HR May 22, 2022 11:03pm June 27, 2022 10:26am diphenhydramine 12.5 mg/5 mL oral liquid 60 mL; aluminum-mag hydroxide-simethicone 400 mg-400 mg-40 mg/5 mL oral susp 60 mL; Lidocaine Viscous 2 % mucosal solution 60 mL; Per 180 mL Start: 05-22-2022 End: 06-27-2022 Magic Mouth Wash (Bmx) Disco ntinued 15 ML PO .Q6HR May 23, 2022 12:03am June 27, 2022 11:26am diphenhydramine 12.5 mg/5 mL oral liquid 60 mL; aluminum-mag hydroxide-simethicone 400 mg-400 mg-40 mg/5 mL oral susp 60 mL; Lidocaine Viscous 2 % mucosal solution 60 mL; Per 180 mL Start: 05-22-2022 Magic Mouth Wa sh (Bmx) Active 15 ML PO .Q6HR May 22, 2022 11:03pm diphenhydramine 12.5 mg/5 mL oral liquid 60 mL; aluminum-mag hydroxide-simethicone 400 mg-400 mg-40 mg/5 mL oral susp 60 mL; Lidocaine Viscous 2 % mucosal solution 60 mL; Per 180 mL Start: 03-28-2022 End: 05-22-2022 Magic Mouth Wash (Bmx) Disco ntinued 15 ML PO .Q6HR 180 March 28, 2022 12:00am May 23, 2022 12:03am diphenhydramine 12.5 mg/5 mL oral liquid 60 mL; aluminum-mag hydroxide-simethicone 400 mg-400 mg-40 mg/5 mL oral susp 60 mL; Lidocaine Viscous 2 % mucosal solution 60 mL; Per 180 mL Start: 03-28-2022 End: 05-22-2022 Magic Mouth Wash (Bmx) Disco ntinued 15 ML PO .Q6HR 180 March 27, 2022 11:00pm May 22, 2022 11:03pm diphenhydramine 12.5 mg/5 mL oral liquid 60 mL; aluminum-mag hydroxide-simethicone 400 mg-400 mg-40 mg/5 mL oral susp 60 mL; Lidocaine Viscous 2 % mucosal solution 60 mL; Per 180 mL Start: 03-28-2022 Magic Mouth Wa sh (Bmx) Active 15 ML PO .Q6HR 180 March 27, 2022 11:00pm diphenhydramine 12.5 mg/5 mL oral liquid 60 mL; aluminum-mag hydroxide-simethicone 400 mg-400 mg-40 mg/5 mL oral susp 60 mL; Lidocaine Viscous 2 % mucosal solution 60 mL; Per 180 mL Magic Mouth Wash (Bmx) 180 m L suspension (4 sources) Start: 05-22-2022 End: 06-27-2022 Magic Mouth Wash (Bmx) 180 m L suspension Discontinued 15 mL PO .Q6HR May 23, 2022 12:03am June 27, 2022 11:26am diphenhydramine 12.5 mg/5 mL oral liquid 60 mL; aluminum-mag hydroxide-simethicone 400 mg-400 mg-40 mg/5 mL oral susp 60 mL; Lidocaine Viscous 2 % mucosal solution 60 mL; Per 180 mL Start: 03-28-2022 End: 05-22-2022 Magic Mouth Wash (Bmx) 180 m L suspension Discontinued 15 mL PO .Q6HR 180 March 28, 2022 12:00am May 23, 2022 12:03am diphenhydramine 12.5 mg/5 mL oral liquid 60 mL; aluminum-mag hydroxide-simethicone 400 mg-400 mg-40 mg/5 mL oral susp 60 mL; Lidocaine Viscous 2 % mucosal solution 60 mL; Per 180 mL Magnesium (20 sources) Start: 01-25-2022 End: 02-28-2022 take 2 tablets by mouth once daily Magnesium 200 mg tablet Discontinued 400 mg PO DAILY January 25, 2022 12:00am February 28, 2022 9:41am Start: 01-25-2022 End: 02-28-2022 take 400 mg by mouth once daily Magnesium Discontinued 400 MG PO DAILY January 24, 2022 11:00pm February 28, 2022 8:41am Start: 01-25-2022 End: 02-28-2022 take 400 mg by mouth once daily Magnesium Discontinued 400 MG PO DAILY January 25, 2022 12:00am February 28, 2022 9:41am Start: 01-25-2022 take 400 mg by mouth once daily Magnesium Active 400 MG PO DAILY January 25, 2022 12:00am Magnesium malate (17 sources) Start: 02-28-2022 End: 06-27-2022 take 750 mg by mouth at bedtime Magnesium Malate Discontinued 750 mg PO AT BEDTIME February 28, 2022 12:00am June 27, 2022 11:27am Start: 02-28-2022 End: 06-27-2022 take 750 mg by mouth at bedtime Magnesium Malate Disco ntinued 750 MG PO AT BEDTIME February 27, 2022 11:00pm June 27, 2022 10:27am Start: 02-28-2022 End: 06-27-2022 take 750 mg by mouth at bedtime Magnesium Malate Disco ntinued 750 MG PO AT BEDTIME February 28, 2022 12:00am June 27, 2022 11:27am Start: 02-28-2022 take 750 mg by mouth at bedtim e Magnesium Malate Active 750 MG PO AT BEDTIME February 27, 2022 11:00pm Start: 02-28-2022 take 750 mg by mouth at bedtim e Magnesium Malate Active 750 MG PO AT BEDTIME February 28, 2022 12:00am magnesium oxide 400 mg oral capsule (20 sources) Start: 08-22-2018 End: 01-25-2022 take 1 capsule by mouth once daily Magnesium Oxide 400 mg capsule Discontinued 400 mg PO DAILY August 22, 2018 12:00am January 25, 2022 1:00pm Menthol / Zinc Oxide (20 sources) Start: 05-28-2022 End: 06-27-2022 Menthol-Zinc Oxide (Calmoseptine) 0.44-20.6 % ointment Discontinued 1 NMA TOPICAL THREE TIMES A DAY May 28, 2022 6:54pm June 27, 2022 11:27am Please contact the information source for Protocol details. Start: 05-28-2022 End: 06-27-2022 Menthol-Zinc Oxide (Calmosep matthew) 0.44-20.6 % ointment Discontinued 1 APPLIC TOPICAL THREE TIMES A DAY May 28, 2022 5:54pm June 27, 2022 10:27am Start: 05-28-2022 End: 06-27-2022 Menthol-Zinc Oxide (Calmosep matthew) 0.44-20.6 % ointment Discontinued 1 APPLIC TOPICAL THREE TIMES A DAY May 28, 2022 6:54pm June 27, 2022 11:27am Start: 05-28-2022 End: 05-28-2022 Menthol-Zinc Oxide (Calmosep matthew) 0.44-20.6 % Ointment Discontinued 1 NMA TOPICAL THREE TIMES A DAY 0 May 28, 2022 1:00am May 28, 2022 6:54pm Please contact the information source for Protocol details. Start: 05-28-2022 End: 05-28-2022 Menthol-Zinc Oxide (Calmosep matthew) 0.44-20.6 % Ointment Discontinued 1 APPLIC TOPICAL THREE TIMES A DAY 0 May 28, 2022 12:00am May 28, 2022 5:54pm Start: 05-28-2022 End: 05-28-2022 Menthol-Zinc Oxide (Calmosep matthew) 0.44-20.6 % Ointment Discontinued 1 APPLIC TOPICAL THREE TIMES A DAY 0 May 28, 2022 1:00am May 28, 2022 6:54pm meropenem 1000 mg injection (20 sources) Penem Antibacterial Start: 05-28-2022 End: 06-27-2022 take 1 g intravenously every eight hours Meropenem 1 gram recon soln Discontinued 1 g IV EVERY 8 HOURS May 28, 2022 6:54pm June 27, 2022 11:27am midodrine hydrochloride 5 mg oral tablet (20 sources) alpha-Adrenergic Agonist Start: 05-28-2022 End: 06-27-2022 take 2 tablets by mouth three times daily at mealtime Midodrine 5 mg tablet Discontinued 10 mg PO 3 TIMES DAILY WITH MEALS May 28, 2022 6:54pm June 27, 2022 11:27am Start: 05-28-2022 End: 06-27-2022 take 10 mg by mouth three times daily at mealtime Midodrine Discontinued 10 MG PO 3 TIMES DAILY WITH MEALS May 28, 2022 5:54pm June 27, 2022 10:27am Nut.Tx.Comp. Immune Systm,Re g (Pivot 1.5 Herbie) 0.09 gram- 1.5 kcal/mL Liquid (20 sources) Start: 06-30-2022 End: 06-30-2022 Nut.Tx.Comp. Immune Systm,Re g (Pivot 1.5 Herbie) 0.09 gram- 1.5 kcal/mL Liquid Discontinued 60 mL GT CLARIFY ORDER 1 June 30, 2022 11:38am June 30, 2022 5:23pm 40 cc/hr with 60 cc water flush q6H Start: 06-30-2022 End: 06-30-2022 Nut.Tx.Comp. Immune Systm,Re g (Pivot 1.5 Herbie) 0.09 gram- 1.5 kcal/mL Liquid Discontinued 60 ML GT CLARIFY ORDER June 30, 2022 10:38am June 30, 2022 4:23pm 40 cc/hr with 60 cc water flush q6H Start: 06-30-2022 End: 06-30-2022 Nut.Tx.Comp. Immune Systm,Re g (Pivot 1.5 Herbie) 0.09 gram- 1.5 kcal/mL Liquid Discontinued 60 ML GT CLARIFY ORDER June 30, 2022 11:38am June 30, 2022 5:23pm 40 cc/hr with 60 cc water flush q6H Start: 06-27-2022 End: 06-30-2022 Nut.Tx.Comp. Immune Systm,Re g (Pivot 1.5 Herbie) 0.09 gram- 1.5 kcal/mL Liquid Discontinued 60 mL GT CLARIFY ORDER 1 June 27, 2022 1:00am June 30, 2022 11:38am 60 cc/hr from 10 PM until 6 AM daily Start: 06-27-2022 End: 06-30-2022 Nut.Tx.Comp. Immune Systm,Re g (Pivot 1.5 Herbie) 0.09 gram- 1.5 kcal/mL Liquid Discontinued 60 ML GT CLARIFY ORDER 1 June 27, 2022 12:00am June 30, 2022 10:38am 60 cc/hr from 10 PM until 6 AM daily Start: 06-27-2022 End: 06-30-2022 Nut.Tx.Comp. Immune Systm,Re g (Pivot 1.5 Herbie) 0.09 gram- 1.5 kcal/mL Liquid Discontinued 60 ML GT CLARIFY ORDER June 27, 2022 1:00am June 30, 2022 11:38am 60 cc/hr from 10 PM until 6 AM daily Nut.Tx.Comp. Immune Systm,Re g (Pivot 1.5 Herbie) 0.09 gram- 1.5 kcal/mL liquid (11 sources) Start: 06-30-2022 End: 07-12-2022 Nut.Tx.Comp. Immune Systm,Re g (Pivot 1.5 Herbie) 0.09 gram- 1.5 kcal/mL liquid Discontinued 35 mL GT AT BEDTIME June 30, 2022 5:22pm July 12, 2022 5:55pm 35 cc/hr with 60 cc water flush q6H. to be scheduled at start at 2200 and stop at 0600 Start: 06-30-2022 End: 07-12-2022 Nut.Tx.Comp. Immune Systm,Re g (Pivot 1.5 Herbie) 0.09 gram- 1.5 kcal/mL liquid Discontinued 35 ML GT AT BEDTIME June 30, 2022 4:22pm July 12, 2022 4:55pm 35 cc/hr with 60 cc water flush q6H. to be scheduled at start at 2200 and stop at 0600 Start: 06-30-2022 End: 07-12-2022 Nut.Tx.Comp. Immune Systm,Re g (Pivot 1.5 Herbie) 0.09 gram- 1.5 kcal/mL liquid Discontinued 35 ML GT AT BEDTIME June 30, 2022 5:22pm July 12, 2022 5:55pm 35 cc/hr with 60 cc water flush q6H. to be scheduled at start at 2200 and stop at 0600 ondansetron 8 mg disintegrating oral tablet (20 sources) Serotonin-3 Receptor Antagonist Start: 02-23-2022 End: 07-12-2022 take 1 tablet by mouth every eight hours as needed for nausea and vomiting Ondansetron 8 mg tablet,disintegrating Discontinued 8 mg PO Q8H as needed for nausea and vomiting April 18, 2022 9:37am July 12, 2022 5:49pm potassium chloride 1.33 meq/ml oral solution (20 sources) Start: 07-12-2022 End: 11-20-2022 Potassium Chloride 20 mEq/15 mL liquid Discontinued 30 meq feeding tube DAILY October 12, 2022 2:24pm November 20, 2022 1:01pm Take 20 CC PO BID or give via PEG Start: 06-27-2022 End: 07-12-2022 take 40 mEq by mouth twice daily at mealtime Potassium Chloride 20 mEq/15 mL liquid Discontinued 40 meq PO TWICE DAILY WITH MEALS June 30, 2022 5:22pm July 12, 2022 5:50pm Start: 03-14-2022 End: 08-16-2022 take 20 mEq by mouth three times daily Potassium Chloride 20 mEq/15 mL liquid Discontinued 20 meq PO THREE TIMES A DAY May 28, 2022 6:54pm June 27, 2022 11:28am prochlorperazine 10 mg oral tablet (20 sources) Phenothiazine Start: 02-23-2022 End: 06-27-2022 take 1 tablet by mouth every six hours as needed for nausea and vomiting Prochlorperazine Maleate 10 mg tablet Discontinued 10 mg PO EVERY 6 HOURS as needed for nausea and vomiting February 23, 2022 12:00am June 27, 2022 11:29am 72 hr scopolamine 0.0139 mg/hr transdermal system (20 sources) Anticholinergic Start: 05-02-2022 End: 06-27-2022 Scopolamine Base 1 mg over 3 days patch 3 day Discontinued 1 NMA TD Q72H May 23, 2022 12:03am June 27, 2022 11:29am Start: 05-02-2022 End: 06-27-2022 Scopolamine Base Discontinue d 1 PATCH TD Q72H May 22, 2022 11:03pm June 27, 2022 10:29am Start: 05-02-2022 End: 06-27-2022 silver sulfADIAZINE 10 mg/ml topical cream (11 sources) Sulfonamide Antibacterial Start: 10-09-2022 End: 01-01-2023 Silver Sulfadiazine 1 % cream Discontinued 1 NMA TOPICAL TWICE A DAY October 09, 2022 12:00am January 01, 2023 11:09am apply a 1.5 mm thickness over area of peeling spironolactone 25 mg oral tablet (20 sources) Aldosterone Antagonist Start: 06-27-2022 End: 07-12-2022 take 1 tablet by mouth twice daily Spironolactone 25 mg tablet Discontinued 25 mg PO TWICE A DAY June 30, 2022 5:22pm July 12, 2022 5:56pm tamoxifen 20 mg oral tablet (20 sources) Estrogen Agonist/Antagonist Start: 08-07-2022 End: 03-19-2024 take 1 tablet by mouth at bedtime Tamoxifen 20 mg tablet Discontinued 20 mg PO AT BEDTIME August 16, 2022 2:35pm January 24, 2023 10:23am Start: 07-12-2022 End: 08-07-2022 take 1 tablet by mouth once daily Tamoxifen 10 mg Tablet Discontinued 10 mg PO DAILY July 12, 2022 1:00am August 07, 2022 8:58am traMADol hydrochloride 50 mg oral tablet (16 sources) Opioid Agonist Start: 07-12-2022 End: 03-24-2024 take 50-100 mg by mouth every six hours as needed for pain Tramadol 50 mg Tablet Discontinued 50 - 100 mg PO EVERY 6 HOURS NEEDED as needed for PAIN -03 24July 12, 2022 1:00am March 24, 2024 10:00am 24 hr venlafaxine 37.5 mg extended release oral capsule (3 sources) Serotonin and Norepinephrine Reuptake Inhibitor Start: 03-26-2023 End: 05-07-2023 take 1 capsule by mouth once daily Venlafaxine (Effexor Xr) 37.5 mg capsule,extended release 24hr Discontinued 37.5 mg PO DAILY March 26, 2023 12:00am May 07, 2023 9:40am vitamin e 180 mg oral capsule (20 sources) Start: 06-27-2022 End: 07-12-2022 Vitamin E (Dl, Acetate) 180 mg (400 unit) capsule Discontinued 400 U PO DAILY WITH MEALS June 30, 2022 5:22pm July 12, 2022 5:56pm zinc sulfate 220 mg oral capsule (20 sources) Start: 06-27-2022 End: 07-12-2022 take 1 capsule by mouth once daily Zinc Sulfate 50 mg zinc (220 mg) capsule Discontinued 220 mg PO DAILY June 30, 2022 5:22pm July 12, 2022 5:56pm Problems Active Problems Problem Classification Problem Date Documented Da te Episodic/Chronic Administrative/social admission (15 sources) Other specified counseling; Translations: [Other specified counseling] Episodic Cancer of breast (20 sources) Malignant tumor of breast ; Translations: [Malignant neoplasm of unspecified site of unspecified female breast] Onset: Chronic Cardiac dysrhythmias (20 sources) Sinus tachycardia; Translations: [Tachycardia, unspecified] Episodic Chronic ulcer of skin (20 sources) Ulcer of lower extremity; Translations: [Non-pressure chronic ulcer of unspecified part of right lower leg with fat layer exposed] Chronic Deficiency and other anemia (20 sources) Anemia; Translations: [Anemia, unspecified] 07-24-2022 Episodic Deficiency and other anemia (20 sources) Anemia, unspecified; Translations: [Anemia, unspecified] Episodic Deficiency and other anemia (17 sources) Chronic anemia; Translations: [Anemia, unspecified] 05-28-2022 Episodic Diabetes mellitus without complication (20 sources) Hyperglycemia; Translations: [Hyperglycemia, unspecified] 06-05-2022 Episodic Comment on above: Hemoglobin A1c is 5. 7. Diseases of white blood cells (20 sources) Leukocytosis; Translations: [Elevated white blood cell count, unspecified] 03-30-2022 Chronic Diverticulosis and diverticulitis (20 sources) Diverticular disease; Translations: [Diverticulosis of intestine, part unspecified, without perforation or abscess without bleeding] 06-12-2022 Chronic E Codes: Fall (3 sources) Fall; Translations: [Unspecified fall, initial encounter] 07-02-2023 Episodic Esophageal disorders (12 sources) Gastroesophageal reflux disease; Translations: [Gastro-esophageal reflux disease without esophagitis] Chronic Fluid and electrolyte disorders (20 sources) Hypokalemia; Translations: [Hypokalemia] Episodic Gastroduodenal ulcer (except hemorrhage) (20 sources) Ulcer of duodenum; Translations: [Duodenal ulcer, unspecified as acute or chronic, without hemorrhage or perforation] 06-12-2022 Chronic Gastrointestinal hemorrhage (20 sources) Upper gastrointestinal bleeding; Translations: [Gastrointestinal hemorrhage, unspecified] 07-13-2022 Episodic Maintenance chemotherapy; radiotherapy (20 sources) Patient encounter status; Translations: [Encounter for antineoplastic chemotherapy] Chronic Malaise and fatigue (20 sources) Asthenia; Translations: [Other malaise] 05-28-2022 Episodic Mood disorders (20 sources) Depressive disorder; Translations: [Depression] 05-28-2022 Chronic Mycoses (20 sources) Candidiasis of mouth; Translations: [Candidal stomatitis] Episodic Nausea and vomiting (20 sources) Chemotherapy-induced nausea and vomiting; Translations: [Nausea with vomiting, unspecified] Episodic Neoplasms of unspecified nature or uncertain behavior (20 sources) Thrombocytosis; Translations: [Thrombocythemia] 04-24-2022 Episodic Noninfectious gastroenteritis (20 sources) Colitis; Translations: [Noninfective gastroenteritis and colitis, unspecified] Episodic Nonmalignant breast conditions (4 sources) Breast lump; Translations: [Unspecified lump in the left breast, unspecified quadrant] Episodic Nutritional deficiencies (20 sources) Nutritional marasmus; Translations: [Unspecified severe protein-calorie malnutrition] Chronic Open wounds of extremities (20 sources) Open wound of right lower leg; Translations: [Unspecified open wound, right lower leg, initial encounter] Episodic Open wounds of head; neck; and trunk (3 sources) Laceration of nose; Translations: [Laceration without foreign body of nose, initial encounter] 07-02-2023 Episodic Osteoporosis (4 sources) Osteoporosis; Translations: [Age-related osteoporosis without current pathological fracture] Onset: 07-16-2023 Chronic Other aftercare (20 sources) Patient encounter status; Translations: [Encounter for adjustment and management of vascular access device] 05-31-2022 Episodic Other aftercare (9 sources) Encounter for adjustment and management of vascular access device; Translations: [Fitting and adjustment of vascular catheter] Episodic Other aftercare (11 sources) Drug therapy finding; Translations: [Encounter for therapeutic drug level monitoring] 08-07-2022 Episodic Other aftercare (20 sources) Encounter for therapeutic drug level monitoring; Translations: [Encounter for therapeutic drug monitoring] 08-07-2022 Episodic Other aftercare (2 sources) Long-term current use of drug therapy; Translations: [Encounter for therapeutic drug level monitoring] 08-07-2022 Episodic Other congenital anomalies (20 sources) Arthrogryposis; Translations: [Other specified congenital musculoskeletal deformities] 01-18-2022 Chronic Other gastrointestinal disorders (17 sources) Gastrostomy present; Translations: [Gastrostomy status] 06-12-2022 Chronic Other gastrointestinal disorders (17 sources) Gastrostomy status; Translations: [Gastrostomy status] 06-27-2022 Chronic Other gastrointestinal disorders (20 sources) Diarrhea due to drug; Translations: [Toxic gastroenteritis and colitis] 04-24-2022 Episodic Other gastrointestinal disorders (20 sources) Toxic gastroenteritis and colitis; Translations: [Diarrhea] Episodic Other gastrointestinal disorders (19 sources) Diarrhea; Translations: [Diarrhea, unspecified] 05-02-2022 Episodic Other gastrointestinal disorders (14 sources) Diarrhea, unspecified; Translations: [Diarrhea] Episodic Other lower respiratory disease (20 sources) Dyspnea; Translations: [Dyspnea, unspecified] 03-30-2022 Episodic Other lower respiratory disease (20 sources) Multiple nodules of lung; Translations: [Other nonspecific abnormal finding of lung field] 04-24-2022 Episodic Other lower respiratory disease (1 source) Dyspnea, unspecified; Translations: [Other respiratory abnormalities] Episodic Other lower respiratory disease (20 sources) Other nonspecific abnormal finding of lung field; Translations: [Other nonspecific abnormal finding of lung field] Episodic Other nervous system disorders (20 sources) Muscular dystrophy; Translations: [Muscular dystrophy, unspecified] 06-26-2022 Chronic Comment on above: Arthrogryposis type. Present at . 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 Other nervous system disorders (2 sources) Impairment of balance; Translations: [Other abnormalities of gait and mobility] 04-17-2024 Episodic Other nutritional; endocrine; and metabolic disorders (20 sources) Hypomagnesemia; Translations: [Hypomagnesemia] 04-24-2022 Chronic Other nutritional; endocrine; and metabolic disorders (20 sources) Hypomagnesemia; Translations: [Disorders of magnesium metabolism] Chronic Other nutritional; endocrine; and metabolic disorders (17 sources) Edema; Translations: [Other disorders of plasma-protein metabolism, not elsewhere classified] 06-05-2022 Chronic Other nutritional; endocrine; and metabolic disorders (6 sources) Other disorders of plasma-protein metabolism, not elsewhere classified; Translations: [Edema] 06-27-2022 Chronic Other screening for suspected conditions (not mental disorders or infectious disease) (20 sources) Elevated C-reactive protein; Translations: [Elevated C-reactive protein (CRP)] Onset: 2 05-31-2022 Episodic Other skin disorders (18 sources) Finding of lower limb; Translations: [Disorder of the skin and subcutaneous tissue, unspecified] 07-24-2022 Episodic Other skin disorders (20 sources) Disorder of the skin and subcutaneous tissue, unspecified; Translations: [Unspecified disorder of skin and subcutaneous tissue] Episodic Other upper respiratory disease (17 sources) Allergic rhinitis; Translations: [Allergic rhinitis, unspecified] 05-28-2022 Chronic Other upper respiratory disease (6 sources) Allergic rhinitis, unspecified; Translations: [Allergic rhinitis, cause unspecified] 06-27-2022 Chronic Peritonitis and intestinal abscess (20 sources) Purulent peritonitis; Translations: [Generalized (acute) peritonitis] Episodic Poisoning by other medications and drugs (20 sources) Oral mucositis (ulcerative) due to antineoplastic therapy; Translations: [Mucositis due to antineoplastic therapy] Episodic Residual codes; unclassified (20 sources) Finding related to ability to mobilize using mobility aids; Translations: [Presence of other specified devices] 04-07-2022 Episodic Comment on above: FULL LEG BRACE BILAT Residual codes; unclassified (20 sources) Presence of other specified devices; Translations: [Full-term infant] Episodic Residual codes; unclassified (17 sources) History of colonoscopy; Translations: [Other specified postprocedural states] 06-12-2022 Episodic Residual codes; unclassified (17 sources) History of left mastectomy; Translations: [Acquired absence of left breast and nipple] 06-28-2022 Episodic Residual codes; unclassified (20 sources) Other specified postprocedural states; Translations: [Other postprocedural status] 06-27-2022 Episodic Residual codes; unclassified (20 sources) Acquired absence of left breast and nipple; Translations: [Acquired absence of breast and nipple] 06-30-2022 Episodic Residual codes; unclassified (4 sources) Flushing; Translations: [Hot flashes due to tamoxifen] 03-26-2023 Episodic Septicemia (except in labor) (20 sources) Sepsis without acute organ dysfunction; Translations: [Sepsis, unspecified organism] Episodic Skin and subcutaneous tissue infections (20 sources) Pyoderma gangrenosum; Translations: [Pyoderma gangrenosum] Episodic Spondylosis; intervertebral disc disorders; other back problems (4 sources) Neck pain; Translations: [Cervicalgia] Onset: 04-17-2024 Episodic Superficial injury; contusion (3 sources) Contusion of nose; Translations: [Contusion of nose, initial encounter] 07-02-2023 Episodic Syncope (20 sources) Syncope; Translations: [Syncope and collapse] 04-04-2022 Episodic Past or Other Problems Problem Classification Problem Date Documented Date Episodic/Chronic Allergic reactions (14 sources) Radiation dermatitis; Translations: [Radiodermatitis, unspecified] Onset: 04-17-2024 10-09-2022 Episodic Cancer of breast (20 sources) History of malignant neoplasm of breast; Translations: [Personal history of malignant neoplasm of breast] Onset: 04-17-2024 03-30-2022 Episodic Other nervous system disorders (1 source) Other abnormalities of gait and mobility; Translations: [Other abnormalities of gait and mobility] Onset: 06-18-2024 Episodic Residual codes; unclassified (1 source) Estrogen receptor positive status [ER+]; Translations: [Estrogen receptor positive status [ER+]] Onset: 03-06-2024 Episodic Unclassified (20 sources) neck/back pain 02-03-2022 Results Test Name Value Interpretation Reference Range Facility Absolute lymphocyte countOrd ered By: Jam Verde on 10-27-2024 Lymphocytes Auto (Unsp spec) [#/Vol] 1.37 10*3/uL 0.83-4.51 [facility] Absolute neutrophil countOrd ered By: Jam Verde on 10-27-2024 Neutrophils (Bld) [#/Vol] 5.0 10*3/uL 2.0-7.7 [facility] Automated lymphocyte count a s percentage of total leukocytesOrdered By: Jam Verde on 10-27-2024 Lymphocytes/100 WBC Auto (Unsp spec) 19.1 % 19-41 [facility] Basic Metabolic Profile (BMP )on 10-27-2024 BUN Normal 4- [facility] Comment on above: Result Comment: @PT HAD CMP DONE BY DR VERDE. Performed By: #### L 500.2500 #### [facility] [address] [place], [address] BUN/CRE Normal 10-20 [facility] Comment on above: Result Comment: @PT HAD CMP DONE BY DR VERDE. Performed By: #### L 500.2500 #### [facility] [address] [place], [address] Calcium Normal 7.6-11.0 [facility] Comment on above: Result Comment: @PT HAD CMP DONE BY DR VERDE. Performed By: #### L 500.2500 #### [facility] [address] [place], [address] CL Normal 98-108 [facility] Comment on above: Result Comment: @PT HAD CMP DONE BY DR VERDE. Performed By: #### L 500.2500 #### [facility] [address] [place], [address] CO2 Normal 21.0-32.0 [facility] Comment on above: Result Comment: @PT HAD CMP DONE BY DR VERDE. Performed By: #### L 500.2500 #### [facility] [address] [place], [address] CREAT,SERUM Normal 0.70-1.20 [facility] Comment on above: Result Comment: @PT HAD CMP DONE BY DR VERDE. Performed By: #### L 500.2500 #### [facility] [address] [place], [address] eGFR Normal >60 [facility] Comment on above: Result Comment: @PT HAD CMP DONE BY DR VERDE. Performed By: #### L 500.2500 #### [facility] [address] [place], [address] GAP Normal 5-15 [facility] Comment on above: Result Comment: @PT HAD CMP DONE BY DR VERDE. Performed By: #### L 500.2500 #### [facility] [address] [place], [address] GLU Normal 70-99 [facility] Comment on above: Result Comment: @PT HAD CMP DONE BY DR VERDE. Performed By: #### L 500.2500 #### [facility] [address] [place], [address] Potassium Normal 3.3-5.1 [facility] Comment on above: Result Comment: @PT HAD CMP DONE BY DR VERDE. Performed By: #### L 500.2500 #### [facility] [address] [place], [address] Basic Metabolic Profile (BMP) Normal 133-145 [facility] Comment on above: Result Comment: @PT HAD CMP DONE BY DR VERDE. Performed By: #### L 500.2500 #### [facility] [address] [place], [address] Basophil percentageOrdered B y: Jam Verde on 10-27-2024 Basophils/100 WBC (Bld) 0.8 % 0-[address] [facility] CBC W/Diff, Automatedon Absolute Lymph 1.37 X10 3/uL Normal 0.83-4.51 [facility] Comment on above: Order Comment: Order Date: 09/11/24Order Info: [id number] - CBCD Performed By: #### L 100.0100, L500.4100, L500.4050 ####[facility] [address] [place], [address] Absolute Neut 5.0 X10 3/uL Normal 2.0-7.7 [facility] Comment on above: Order Comment: Order Date: 09/11/24Order Info: [id number] - CBCD Performed By: #### L 100.0100, L500.4100, L500.4050 ####[facility] [address] [place], [address] Basophils/100 WBC (Bld) 0.8 % Normal 0-[address] [facility] Comment on above: Order Comment: Order Date: 09/11/24Order Info: [id number] - CBCD Performed By: #### L 100.0100, L500.4100, L500.4050 ####[facility] [address] [place], [address] Eosinophils/100 WBC (Bld) 2.0 % Normal 0-5 [facility] Comment on above: Order Comment: Order Date: 09/11/24Order Info: [id number] - CBCD Performed By: #### L 100.0100, L500.4100, L500.4050 ####[facility] [address] [place], [address] Erythrocyte distribution width (RBC) [Ratio] 13.5 % Normal 11.6-14.6 [facility] Comment on above: Order Comment: Order Date: 09/11/24Order Info: [id number] - CBCD Performed By: #### L 100.0100, L500.4100, L500.4050 ####[facility] [address] [place], [address] Hematocrit (Bld) [Volume fraction] 39.6 % Normal 37-47 [facility] Comment on above: Order Comment: Order Date: 09/11/24Order Info: [id number] - CBCD Performed By: #### L 100.0100, L500.4100, L500.4050 ####[facility] [address] [place], [address] Hemoglobin (Bld) [Mass/Vol] 13.5 g/dL Normal 12.0-15.0 [facility] Comment on above: Order Comment: Order Date: 09/11/24Order Info: [id number] - CBCD Performed By: #### L 100.0100, L500.4100, L500.4050 ####[facility] [address] [place], [address] IG% 0.100 Normal 0.0-0.9 [facility] Comment on above: Order Comment: Order Date: 09/11/24Order Info: [id number] - CBCD Result Comment: IG% - Immature Granulocytes (promyelocytes, myelocytes and metamyelocytes) > 1% indicates that a LEFT SHIFT is Present. Performed By: #### L 100.0100, L500.4100, L500.4050 ####[facility] [address] [place], [address] Lymphocytes/100 WBC (Bld) 19.1 % Normal 19-41 [facility] Comment on above: Order Comment: Order Date: 09/11/24Order Info: [id number] - CBCD Performed By: #### L 100.0100, L500.4100, L500.4050 ####[facility] [address] [place], [address] MCH (RBC) [Entitic mass] 29.6 pg Normal 27.0-32.0 [facility] Comment on above: Order Comment: Order Date: 09/11/24Order Info: [id number] - CBCD Performed By: #### L 100.0100, L500.4100, L500.4050 ####[facility] [address] [place], [address] MCHC (RBC) [Mass/Vol] 34.1 g/dL Normal 32-36 [facility] Comment on above: Order Comment: Order Date: 09/11/24Order Info: [id number]- - CBCD Performed By: #### L 100.0100, L500.4100, L500.4050 ####[facility] [address] [place], [address] MCV (RBC) [Entitic vol] 86.8 fL Normal 81-99 [facility] Comment on above: Order Comment: Order Date: 09/11/24Order Info: [id number] - CBCD Performed By: #### L 100.0100, L500.4100, L500.4050 ####[facility] [address] [place], [address] Monocytes/100 WBC (Bld) 7.8 % Normal 0-10 [facility] Comment on above: Order Comment: Order Date: 09/11/24Order Info: [id number] - CBCD Performed By: #### L 100.0100, L500.4100, L500.4050 ####[facility] [address] [place], [address] Neutrophils/100 WBC (Bld) 70.2 % High 47-70 [facility] Comment on above: Order Comment: Order Date: 09/11/24Order Info: [id number] - CBCD Performed By: #### L 100.0100, L500.4100, L500.4050 ####[facility] [address] [place], [address] Nucleated RBC (Bld) [#/Vol] 0 10*3/uL Normal 0-5 [facility] Comment on above: Order Comment: Order Date: 09/11/24Order Info: [id number] - CBCD Performed By: #### L 100.0100, L500.4100, L500.4050 ####[facility] [address] [place], [address] Platelet mean volume (Bld) [Entitic vol] 9.6 fL Normal 6.2-12.0 [facility] Comment on above: Order Comment: Order Date: 09/11/24Order Info: [id number]- - CBCD Performed By: #### L 100.0100, L500.4100, L500.4050 ####[facility] [address] [place], [address] Platelets (Bld) [#/Vol] 230 10*3/uL Normal 150-450 [facility] Comment on above: Order Comment: Order Date: 09/11/24Order Info: [id number] - CBCD Performed By: #### L 100.0100, L500.4100, L500.4050 ####[facility] [address] [place], [address] RBC (Bld) [#/Vol] 4.56 10*6/uL Normal 4.2-5.4 [facility] Comment on above: Order Comment: Order Date: 09/11/24Order Info: [id number] - CBCD Performed By: #### L 100.0100, L500.4100, L500.4050 ####[facility] [address] [place], [address] RDW SD 42.6 fl Normal 35.1-43.9 [facility] Comment on above: Order Comment: Order Date: 09/11/24Order Info: [id number] - CBCD Performed By: #### L 100.0100, L500.4100, L500.4050 ####[facility] [address] [place], [address] WBC (Bld) [#/Vol] 7.2 10*3/uL Normal 4.4-11.0 [facility] Comment on above: Order Comment: Order Date: 09/11/24Order Info: [id number] - CBCD Performed By: #### L 100.0100, L500.4100, L500.4050 ####[facility] [address] [place], [address] Comprehensive Metabolic Prof ilon 10-27-2024 Albumin [Mass/Vol] 4.4 g/dL Normal 3.5-5.0 [facility] Comment on above: Order Comment: Order Date: 09/11/24Order Info: [id number] - CMPOrder Info: [id number] - LIPID Performed By: #### L 100.0100, L500.4100, L500.4050 ####[facility] [address] [place], [address] Albumin/Globulin [Mass ratio] 1.7 {ratio} Normal 0.9-2.4 [facility] Comment on above: Order Comment: Order Date: 09/11/24Order Info: [id number] - CMPOrder Info: [id number] - LIPID Performed By: #### L 100.0100, L500.4100, L500.4050 ####[facility] [address] [place], [address] ALK PHOS 92 U/L Normal 35-104 [facility] Comment on above: Order Comment: Order Date: 09/11/24Order Info: [id number] - CMPOrder Info: [id number] - LIPID Performed By: #### L 100.0100, L500.4100, L500.4050 ####[facility] [address] [place], [address] ALT [Catalytic activity/Vol] 9 U/L Normal <=34 [facility] Comment on above: Order Comment: Order Date: 09/11/24Order Info: [id number] - CMPOrder Info: [id number] - LIPID Performed By: #### L 100.0100, L500.4100, L500.4050 ####[facility] [address] [place], [address] AST [Catalytic activity/Vol] 20 U/L Normal <=31 [facility] Comment on above: Order Comment: Order Date: 09/11/24Order Info: [id number] - CMPOrder Info: [id number] - LIPID Performed By: #### L 100.0100, L500.4100, L500.4050 ####[facility] [address] [place], [address] Bilirubin [Mass/Vol] 0.21 mg/dL Normal 0.00-1.30 [facility] Comment on above: Order Comment: Order Date: 09/11/24Order Info: [id number] - CMPOrder Info: [id number] - LIPID Performed By: #### L 100.0100, L500.4100, L500.4050 ####[facility] [address] [place], [address] BUN/CRE 42.5 RATIO High 10-20 [facility] Comment on above: Order Comment: Order Date: 09/11/24Order Info: [id number] - CMPOrder Info: [id number] - LIPID Performed By: #### L 100.0100, L500.4100, L500.4050 ####[facility] [address] [place], [address] Calcium [Mass/Vol] 9.7 mg/dL Normal 7.6-11.0 [facility] Comment on above: Order Comment: Order Date: 09/11/24Order Info: [id number] - CMPOrder Info: [id number] - LIPID Performed By: #### L 100.0100, L500.4100, L500.4050 ####[facility] [address] [place], [address] Chloride [Moles/Vol] 103 mmol/L Normal 98-108 [facility] Comment on above: Order Comment: Order Date: 09/11/24Order Info: [id number] - CMPOrder Info: [id number] - LIPID Performed By: #### L 100.0100, L500.4100, L500.4050 ####[facility] [address] [place], [address] CO2 [Moles/Vol] 23.0 mmol/L Normal 21.0-32.0 [facility] Comment on above: Order Comment: Order Date: 09/11/24Order Info: [id number] - CMPOrder Info: [id number] - LIPID Performed By: #### L 100.0100, L500.4100, L500.4050 ####[facility] [address] [place], [address] Creatinine [Mass/Vol] 0.44 mg/dL Low 0.70-1.20 [facility] Comment on above: Order Comment: Order Date: 09/11/24Order Info: [id number] - CMPOrder Info: [id number] - LIPID Performed By: #### L 100.0100, L500.4100, L500.4050 ####[facility] [address] [place], [address] ECRCL 114.76 ml/min Normal 50-250 [facility] Comment on above: Order Comment: Order Date: 09/11/24Order Info: [id number] - CMPOrder Info: [id number] - LIPID Performed By: #### L 100.0100, L500.4100, L500.4050 ####[facility] [address] [place], [address] GAP 14 Normal 5-15 [facility] Comment on above: Order Comment: Order Date: 09/11/24Order Info: [id number]- - CMPOrder Info: [id number] - LIPID Performed By: #### L 100.0100, L500.4100, L500.4050 ####[facility] [address] [place], [address] GFR/1.73 sq M.predicted among non-blacks MDRD (S/P/Bld) [Vol rate/Area] 121 mL/min/{1.73_m2} Normal >60 [facility] Comment on above: Order Comment: Order Date: 09/11/24Order Info: 07- - CMPOrder Info: [id number] - LIPID Result Comment: mL/m in/1.73m2 CKD-EPI Creatinine Equation (2020) Performed By: #### L 100.0100, L500.4100, L500.4050 ####[facility] [address] [place], [address] Globulin (S) [Mass/Vol] 2.6 g/dL Normal 2.2-4.2 [facility] Comment on above: Order Comment: Order Date: 09/11/24Order Info: [id number]- - CMPOrder Info: [id number] - LIPID Performed By: #### L 100.0100, L500.4100, L500.4050 ####[facility] [address] [place], [address] Glucose [Mass/Vol] 107 mg/dL High 70-99 [facility] Comment on above: Order Comment: Order Date: 09/11/24Order Info: [id number]- - CMPOrder Info: [id number] - LIPID Performed By: #### L 100.0100, L500.4100, L500.4050 ####[facility] [address] [place], [address] Potassium [Moles/Vol] 3.9 mmol/L Normal 3.3-5.1 [facility] Comment on above: Order Comment: Order Date: 09/11/24Order Info: [id number] - CMPOrder Info: [id number] - LIPID Performed By: #### L 100.0100, L500.4100, L500.4050 ####[facility] [address] [place], [address] Sodium [Moles/Vol] 139 mmol/L Normal 133-145 [facility] Comment on above: Order Comment: Order Date: 09/11/24Order Info: [id number] - CMPOrder Info: [id number] - LIPID Performed By: #### L 100.0100, L500.4100, L500.4050 ####[facility] [address] [place], [address] T PROT 7.0 g/dL Normal 5.9-8.4 [facility] Comment on above: Order Comment: Order Date: 09/11/24Order Info: [id number] - CMPOrder Info: [id number] - LIPID Performed By: #### L 100.0100, L500.4100, L500.4050 ####[facility] [address] [place], [address] Urea nitrogen [Mass/Vol] 19 mg/dL Normal 4-19 [facility] Comment on above: Order Comment: Order Date: 09/11/24Order Info: [id number] - CMPOrder Info: [id number] - LIPID Performed By: #### L 100.0100, L500.4100, L500.4050 ####[facility] [address] [place], [address] Eosinophil percentageOrdered By: Jam Verde on 10-27-2024 Eosinophils/100 WBC (Bld) 2.0 % 0-5 [facility] Erythrocyte distribution wid th ratioOrdered By: Jam Verde on 10-27-2024 Erythrocyte distribution width (RBC) [Ratio] 13.5 % 11.6-14.6 [facility] Erythrocyte distribution wid th standard deviationOrdered By: Jam Verde on 10-27-2024 Erythrocyte distribution width (RBC) [Ratio] 42.6 fl 35.1-43.9 [facility] Hematocrit Auto (Bld) [Volum e fraction]Ordered By: Jam Verde on 10-27-2024 Hematocrit (Bld) [Volume fraction] 39.6 % 37-47 [facility] Hemoglobin measurementOrdere d By: Jam Verde on 10-27-2024 Hemoglobin (Bld) [Mass/Vol] 13.5 g/dL 12.0-15.0 [facility] Immature granulocytes/100 WB C Auto (Bld)Ordered By: Jam Verde on 10-27-2024 Immature granulocytes/100 WBC (Bld) 0.100 % 0.0-0.9 [facility] Comment on above: IG% - Immature Granu locytes (promyelocytes, myelocytes and metamyelocytes) > 1% indicates that a LEFT SHIFT is Present. Lipid Profileon 10-27-2024 CHOL:HDL 2.35 Normal [facility] Comment on above: Order Comment: Order Date: 09/11/24Order Info: [id number] - CMPOrder Info: [id number] - LIPID Performed By: #### L 100.0100, L500.4100, L500.4050 ####[facility] [address] [place], [place], [address] Cholesterol [Mass/Vol] 200 mg/dL Normal <=200 [facility] Comment on above: Order Comment: Order Date: 09/11/24Order Info: [id number] - CMPOrder Info: [id number] - LIPID Result Comment: Chol esterol level, Desirable <200 mg/dL Borderline high cholesterol 200-239 mg/dL High cholesterol >=240 mg/dL Recommendations of the NCEP Adult Treatment Panel for the following risk-cutoff thresholds for the [place] population. Performed By: #### L 100.0100, L500.4100, L500.4050 ####[facility] [address] [place], [address] Cholesterol in HDL [Mass/Vol] 85 mg/dL Normal [facility] Comment on above: Order Comment: Order Date: 09/11/24Order Info: [id number] - CMPOrder Info: [id number] - LIPID Result Comment: Jeni onal Cholesterol Education Program (NCEP) guidelines: <40 mg/dL: Low HDL-cholesterol (major risk factor for CHD) >= 60 mg/dL: High HDL-cholesterol (negative risk factor for CHD) HDL-cholesterol is affected by a number of factors, e.g. smoking, exercise, hormones, sex and age. Performed By: #### L 100.0100, L500.4100, L500.4050 ####[facility] [address] [place], [address] Cholesterol in LDL [Mass/Vol] 99 mg/dL Normal [facility] Comment on above: Order Comment: Order Date: 09/11/24Order Info: [id number] - CMPOrder Info: [id number] - LIPID Result Comment: Bord doswcb=066-604 mg/dL Higher Rktr=282 mg/dL or greater Performed By: #### L 100.0100, L500.4100, L500.4050 ####[facility] [address] [place], [address] Cholesterol in VLDL [Mass/Vol] 16 mg/dL Normal 5-40 [facility] Comment on above: Order Comment: Order Date: 09/11/24Order Info: [id number] - CMPOrder Info: [id number] - LIPID Performed By: #### L 100.0100, L500.4100, L500.4050 ####[facility] [address] [place], [address] Triglyceride [Mass/Vol] 80 mg/dL Normal [facility] Comment on above: Order Comment: Order Date: 09/11/24Order Info: [id number] - CMPOrder Info: [id number] - LIPID Result Comment: The drugs N-Acetylcysteine and Metamizole may falsely depress this assay. Normal range: <150 mg/dL Borderline High: 150-199 mg/dL High: 200-499 mg/dL Very High: >500 mg/dL Performed By: #### L 100.0100, L500.4100, L500.4050 ####[facility] [address] [place], [address] MCV (mean corpuscular volume ) determinationOrdered By: Jam Verde on 10-27-2024 MCV (RBC) [Entitic vol] 86.8 fL 81-99 [facility] Mean corpuscular hemoglobin (MCH) determinationOrdered By: Jam Verde on 10-27-2024 MCH (RBC) [Entitic mass] 29.6 pg 27.0-32.0 [facility] Mean corpuscular hemoglobin concentration (MCHC) determinationOrdered By: Jam Verde on 10-27-2024 MCHC (RBC) [Mass/Vol] 34.1 g/dL 32-36 [facility] Mean platelet volume determi nationOrdered By: Jam Verde on 10-27-2024 Platelet mean volume (Bld) [Entitic vol] 9.6 fL 6.2-12.0 [facility] Monocyte percentageOrdered B y: Jam Verde on 10-27-2024 Monocytes/100 WBC (Bld) 7.8 % 0-10 [facility] Neutrophil percentageOrdered By: Jam Verde on 10-27-2024 Neutrophils/100 WBC (Bld) 70.2 % High 47-70 [facility] Nucleated red blood cell per centageOrdered By: Jam Verde on 10-27-2024 Nucleated RBC/100 WBC (Bld) [Ratio] 0 % 0-5 [facility] Oncology Visit Reporton 06-0 Oncology Visit Report [facility] [place] [facility] [address] [place] [address] OFFICE VISIT Date of Service: 10/27/24 1055 MR#: [id number] Acct: [id number] Name: BERE ESPOSITO Rep #: [id number] : 1980 From: Theodore Perez MD Age/Sex: 44/F Location: [facility] [place] Status: Signed HPI Subjective Date of Service 10/27/24 Chief Complaint breast cancer on treatment History of Present Illness 44-year-old female with past medical history notable for muscle dystrophy who presented after an abnormal screening mammogram. January 11, 2022 screening mammogram: IMPRESSION: 2 cm irregular urinary density mass with microcalcifications in the upper inner quadrant of the left breast and focal compression views are recommended for further evaluation January 13, 2022 left diagnostic mammogram: IMPRESSION: Persistent soft tissue density with calcifications as described.??? Biopsy recommended. ASSESSMENT CATEGORY: BIRADS Category 4:??? Suspicious. January 18, 2022 Left breast, 11 o???clock, 5 cm, core biopsy: Invasive ductal carcinoma, nuclear grade 2-3 (1.2 cm in greatest length). ANTIBODY / CLONE RESULT E-Cad (ECH-6) positive CK8 ([id number]) positive Calponin-1 (MR039T) negative CK5-6 (D5 1684) negative P40 (BC28) negative P53 (DO-7) positive, 10% Ki-67 (30-9) positive, 40% MORPHOMETRIC ANALYSIS ER (clone 6F11) >95%, moderate intensity MO (clone 16/1E2) >95%, strong intensity Her-2Neu (clone CB11) 3+ February 02, 2022 breast MRI: IMPRESSION: Irregular enhancing mass in the left breast compatible with the known left breast carcinoma. Two lymph nodes in the left axilla which have no convincing MRI evidence of involvement. ??? February 07, 2022 Left axillary lymph node, biopsy: Lymph node tissue positive for metastatic carcinoma February 22, 2022 PET/CT initial staging: IMPRESSION: 1.??? ABNORMAL EXAMINATION.??? Left breast spiculated nodule meets criteria for viable neoplasm.??? No evidence of metastasis. March 22, 2022 chest CTA: ER visit with dyspnea: IMPRESSION: Multiple tiny nodules in both lungs with increased interstitial markings more prominent at the lung bases.??? Pulmonary metastases with possible lymphangitic spread should be ruled out. Bibasilar atelectasis more prominent on the right side with small right pleural effusion. Marked degree of dextroscoliosis with prior fusion. March 26, 2022 CTA: ER visit with dyspnea: CONCLUSION: Streak artifact.??? No pulmonary emboli identified. Clear lungs.??? The interstitial changes and multiple nodules present on the prior exam have resolved. Small right pleural effusion present on the prior study has resolved. June 08, 2022: CT chest: Preop to follow-up on previously noted lung nodules. IMPRESSION: Small right pleural effusion with right basilar atelectasis. Small pericardial effusion. June 27, 2022 Left breast, mastectomy and axillary node dissection: Negative for residual invasive carcinoma. Six out of six lymph nodes, negative for metastatic carcinoma. Fibrocystic changes, adenosis and intraductal hyperplasia with focal atypia. Frequent microcalcifications. Focal changes consistent with previous biopsy site. COMMENT BREAST CANCER SUMMARY (including previous biopsy specimen [id number]) Procedure ??? total mastectomy (mastectomy and left axillary node dissection) Specimen laterality - left Tumor site ??? as per previous biopsy specimen, 11 o???clock, 5 cm from nipple. Tumor size ??? no residual invasive carcinoma. Histologic type ??? previous biopsy specimen, invasive ductal carcinoma. Histologic grade (Uri grade): Previous biopsy specimen [id number]) Glandular/tubular differentiation score - 3 Nuclear pleomorphism score - 3 Mitotic count score - 1 No residual carcinoma. Ductal carcinoma in situ ??? not seen Lobular carcinoma in situ ??? not seen Tumor extension: Skin ??? skin is present and uninvolved. Nipple ??? ductal carcinoma in situ does not involve nipple epidermis. Skeletal muscle ??? skeletal muscle is present and dissection tissue is free of tumor. Margins: Invasive carcinoma margin ??? cannot be assessed as no invasive carcinoma is noted. Regional lymph nodes: Total number of lymph nodes examined - 6 Number of lymph nodes with macrometastases, micrometastases or isolated tumor cells - 0 Treatment effect in the breast ??? definite response to presurgical therapy in invasive carcinoma. Treatment effect in lymph nodes ??? no lymph node metastasis and no fibrous scarring in the lymph node is noted. Lymphvascular invasion ??? not identified Dermal lymphvascular invasion - not identified Distant metastasis ??? not applicable Additional Pathologic Findings ??? fibrocystic changes, adenosis and intraductal hyperplasia with focal atypia. Ancillary Studies: P (more content not included)... Normal [facility] Platelet countOrdered By: Bakari Verde on 10-27-2024 Platelets (Bld) [#/Vol] 230 10*3/uL 150-450 [facility] RBC Auto (Bld) [#/Vol]Ordere d By: Jam Verde on 10-27-2024 RBC (Bld) [#/Vol] 4.56 10*6/uL 4.2-5.4 [facility] Vitamin D,25 Hydroxyon 10-27 Vitamin D 25-OH 38.1 ng/mL Normal 30-100 [facility] Comment on above: Order Comment: Order Date: 09/11/24Order Info: [id number] - CMPOrder Info: [id number] - LIPID Result Comment: Nichol min D Status Deficiency: <20 ng/mL (50nmol/L) Insufficiency: 20-30 ng/mL (50-75 nmol/L) Sufficiency: 30-100 ng/mL (75-250 nmol/L) Toxicity: >100 ng/mL (>250 nmol/L) Performed By: #### L 506.1001 ####[facility] [id number] [facility]. [place], [place], [id number] White blood cell (WBC) count Ordered By: Jam Verde on 10-27-2024 WBC (Bld) [#/Vol] 7.2 10*3/uL 4.4-11.0 [facility] Bone density reportOrdered B y: Michael Bal on 10-10-2024 Study report Skeletal system DXA [facility] Imaging Services [address] [place], [place] [id number] Dexa Bone Density/Append Skel MR#: [id number] Acct: [id number] Name: BERE ESPOSITO Rep #: [id number] : 1980 F 43 From: Nash Bal MD PCP: Dr. Jam Verde MD Status: REG CLI Study:Dexa Bone Density/Append Skel Date of E xam: 10/09/24 Exam# [id number] Ordering Dr: Bakari Verde MD PROCEDURE: DEXA BONE DENSITY/APPEND SKEL 10/09/2024 REASON FOR EXAM: F, age 43 y/o . Osteoporosis.. TECHNIQUE: DXA scan of sites with data reported below. [facility] COMPARISON: Prior study dated August 03, 2022. FINDINGS: BMD and T-SCORES Left femoral neck: 0.706 g/cm2, T-score -1.3 Femoral neck comparison data not recommended for monitoring change. Left total hip: 0.699 g/cm2, T-score -2.0 Change from prior: Improvement of 3%. Right femoral neck: 0.524 g/cm2, T-score -2.9 Femoral neck comparison data not recommended for monitoring change. Right total hip: 0.586 g/cm2, T-score -2.9 Change from prior: Loss of 5.5%. Right 1/3 radius: 0.516 g/cm2, T-score -1.2 Change from prior: Improvement of 2.8%. The World Health Organization has defined the following categories based on bonedensity: Normal bone density: T-score equal to or greater than -1.0 Osteopenia: T-score between -1.0 and -2.5 Osteoporosis: T-score equal to or less than -2.5 The patient does meet the pharmacological treatment recommendations for prevention of osteoporosis. BD/Dexa Bone Density/Append Skel IMPRESSION: OSTEOPOROSIS. Recommend follow-up as clinically warranted. Reading Location: [facility] CC: Dr. 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 Jam Verde MD Status: [facility] Study: Dexa Bone Density/Append Skel Date of Exam: Exam# [id number] Ordering Dr: Jam Verde MD PROCEDURE: DEXA BONE DENSITY/APPEND SKEL 10/09/2024 REASON FOR EXAM: F, age 43 y/o . Osteoporosis.. TECHNIQUE: DXA scan of sites with data reported below. REFERENCE LINKS: [facility] Adult Positions COMPARISON: Prior study dated August 03, 2022. FINDINGS: BMD and T-SCORES Left femoral neck: 0.706 g/cm2, T-score -1.3 Femoral neck comparison data not recommended for monitoring change. Left total hip: 0.699 g/cm2, T-score -2.0 Change from prior: Improvement of 3%. Right femoral neck: 0.524 g/cm2, T-score -2.9 Femoral neck comparison data not recommended for monitoring change. Right total hip: 0.586 g/cm2, T-score -2.9 Change from prior: Loss of 5.5%. Right 1/3 radius: 0.516 g/cm2, T-score -1.2 Change from prior: Improvement of 2.8%. The World Health Organization has defined the following categories based on bone density: Normal bone density: T-score equal to or greater than -1.0 Osteopenia: T-score between -1.0 and -2.5 Osteoporosis: T-score equal to or less than -2.5 The patient does meet the pharmacological treatment recommendations for prevention of osteoporosis. BD/Dexa Bone Density/Append Skel IMPRESSION: OSTEOPOROSIS. Recommend follow-up as clinically warranted. Reading Location: [id number] CC: Dr. 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: Signed Normal [facility] Absolute lymphocyte countOrd ered By: Theodore Perez on 07-21-2024 Lymphocytes Auto (Unsp spec) [#/Vol] 1.49 10*3/uL 0.83-4.51 [facility] Absolute neutrophil countOrd ered By: Theodore Perez on 07-21-2024 Neutrophils (Bld) [#/Vol] 7.7 10*3/uL 2.0-7.7 [facility] Albumin to globulin ratioOrd ered By: Theodore Perez on 07-21-2024 Albumin/Globulin [Mass ratio] 1.2 {ratio} 0.9-2.4 [facility] Automated lymphocyte count a s percentage of total leukocytesOrdered By: Kalyanjennifer Perez on 07-21-2024 Lymphocytes/100 WBC Auto (Unsp spec) 14.4 % Low 19-41 [facility] Basophil percentageOrdered B y: Theodore Perez on 07-21-2024 Basophils/100 WBC (Bld) 0.5 % 0-[address] [facility] Bilirubin, totalOrdered By: Theodore Perez on 07-21-2024 Bilirubin [Mass/Vol] 0.20 mg/dL 0.20-1.00 [facility] Comment on above: For patients on eltr ombopag therapy, use of Dimension [place] TBIL is not recommended. Blood urea nitrogen (BUN)/cr eatinine ratioOrdered By: Theodore Perez on 07-21-2024 Urea nitrogen/Creatinine [Mass ratio] 17.3 mg/mg 10-20 [facility] CBC W/Diff, Automatedon 06-29 Absolute Lymph 1.49 X10 3/uL Normal 0.83-4.51 [facility] Comment on above: Performed By: #### L 500.4050, L100.0100 #### [facility] [address] [place], [address] Absolute Neut 7.7 X10 3/uL Normal 2.0-7.7 [facility] Comment on above: Performed By: #### L 500.4050, L100.0100 #### [facility] [address] [place], [address] Basophils/100 WBC (Bld) 0.5 % Normal 0-[address] [facility] Comment on above: Performed By: #### L [id number], L100.0100 #### [facility] [address] [place], [address] Eosinophils/100 WBC (Bld) 1.1 % Normal 0-5 [facility] Comment on above: Performed By: #### L 500.4050, L100.0100 #### [facility] [address] [place], [address] Erythrocyte distribution width (RBC) [Ratio] 13.7 % Normal 11.6-14.6 [facility] Comment on above: Performed By: #### L 500.4050, L100.0100 #### [facility] [address] [place], [address] Hematocrit (Bld) [Volume fraction] 40.2 % Normal 37-47 [facility] Comment on above: Performed By: #### L 500.4050, L100.0100 #### [facility] [address] [place], [address] Hemoglobin (Bld) [Mass/Vol] 13.3 g/dL Normal 12.0-15.0 [facility] Comment on above: Performed By: #### L 500.4050, L100.0100 #### [facility] [address] [place], [address] IG% 0.300 Normal 0.0-0.9 [facility] Comment on above: Result Comment: IG% - Immature Granulocytes (promyelocytes, myelocytes and metamyelocytes) > 1% indicates that a LEFT SHIFT is Present. Performed By: #### L 500.4050, L100.0100 #### [facility] [address] [place], [address] Lymphocytes/100 WBC (Bld) 14.4 % Low 19-41 [facility] Comment on above: Performed By: #### L 500.4050, L100.0100 #### [facility] [address] [place], [address] MCH (RBC) [Entitic mass] 29.0 pg Normal 27.0-32.0 [facility] Comment on above: Performed By: #### L 500.4050, L100.0100 #### [facility] [address] [place], [address] MCHC (RBC) [Mass/Vol] 33.1 g/dL Normal 32-36 [facility] Comment on above: Performed By: #### L 500.4050, L100.0100 #### [facility] [address] [place], [address] MCV (RBC) [Entitic vol] 87.6 fL Normal 81-99 [facility] Comment on above: Performed By: #### L 500.4050, L100.0100 #### [facility] [address] [place], [address] Monocytes/100 WBC (Bld) 9.5 % Normal 0-10 [facility] Comment on above: Performed By: #### L 500.4050, L100.0100 #### [facility] [address] [place], [address] Neutrophils/100 WBC (Bld) 74.2 % High 47-70 [facility] Comment on above: Performed By: #### L 500.4050, L100.0100 #### [facility] [address] [place], [address] Nucleated RBC (Bld) [#/Vol] 0 10*3/uL Normal 0-5 [facility] Comment on above: Performed By: #### L 500.4050, L100.0100 #### [facility] [address] [place], [address] Platelet mean volume (Bld) [Entitic vol] 9.4 fL Normal 6.2-12.0 [facility] Comment on above: Performed By: #### L 500.4050, L100.0100 #### [facility] [address] [place], [address] Platelets (Bld) [#/Vol] 262 10*3/uL Normal 150-450 [facility] Comment on above: Performed By: #### L 500.4050, L100.0100 #### [facility] [address] [place], [address] RBC (Bld) [#/Vol] 4.59 10*6/uL Normal 4.2-5.4 [facility] Comment on above: Performed By: #### L 500.4050, L100.0100 #### [facility] [address] [place], [address] RDW SD 43.8 fl Normal 35.1-43.9 [facility] Comment on above: Performed By: #### L 500.4050, L100.0100 #### [facility] [address] [place], [address] WBC (Bld) [#/Vol] 10.3 10*3/uL Normal 4.4-11.0 [facility] Comment on above: Performed By: #### L 500.4050, L100.0100 #### [facility] [address] [place], [address] Carbon dioxide measurementOr dered By: Theodore Perez on 07-21-2024 CO2 [Moles/Vol] 26.0 mmol/L 21.0-32.0 [facility] Chloride measurementOrdered By: Theodore Perez on 07-21-2024 Chloride [Moles/Vol] 104 mmol/L 98-107 [facility] Comprehensive Metabolic Prof ilon 07-21-2024 Albumin [Mass/Vol] 3.8 g/dL Normal 3.2-5.0 [facility] Comment on above: Performed By: #### L 500.4050, L100.0100 #### [facility] [address] [place], [address] Albumin/Globulin [Mass ratio] 1.2 {ratio} Normal 0.9-2.4 [facility] Comment on above: Performed By: #### L 500.4050, L100.0100 #### [facility] [address] [place], [address] ALK P 83 U/L Normal 45-117 [facility] Comment on above: Performed By: #### L 500.4050, L100.0100 #### [facility] [address] [place], [address] ALT [Catalytic activity/Vol] 20 U/L Normal 13-56 [facility] Comment on above: Performed By: #### L 500.4050, L100.0100 #### [facility] [address] [place], [address] AST [Catalytic activity/Vol] 16 U/L Normal 15-37 [facility] Comment on above: Performed By: #### L 500.4050, L100.0100 #### [facility] [address] [place], [address] Bilirubin [Mass/Vol] 0.20 mg/dL Normal 0.20-1.00 [facility] Comment on above: Result Comment: For patients on eltrombopag therapy, use of Dimension [place] TBIL is not recommended. Performed By: #### L 500.4050, L100.0100 #### [facility] [address] [place], [address] BUN/CRE 17.3 RATIO Normal 10-20 [facility] Comment on above: Performed By: #### L 500.4050, L100.0100 #### [facility] [address] [place], [address] CA,Total 8.8 mg/dL Normal 8.5-10.1 [facility] Comment on above: Performed By: #### L 500.4050, L100.0100 #### [facility] [address] [place], [address] Chloride [Moles/Vol] 104 mmol/L Normal 98-107 [facility] Comment on above: Performed By: #### L 500.4050, L100.0100 #### [facility] [address] [place], [address] CO2 [Moles/Vol] 26.0 mmol/L Normal 21.0-32.0 [facility] Comment on above: Performed By: #### L 500.4050, L100.0100 #### [facility] [address] [place], [address] Creatinine [Mass/Vol] 0.87 mg/dL Normal 0.55-1.02 [facility] Comment on above: Result Comment: The validity of the calculated GFR GFRAA in patients over 70 years has not been determined. Clinical correlation is essential. Performed By: #### L 500.4050, L100.0100 #### [facility] [address] [place], [address] ECRCL 58.65 ml/min Normal [facility] Comment on above: Performed By: #### L 500.4050, L100.0100 #### [facility] [address] [place], [address] EST GFR - AA 90 mL/min Normal >60 [facility] Comment on above: Result Comment: Afri can Macedonian GFR Calc Performed By: #### L 500.4050, L100.0100 #### [facility] [address] [place], [address] GAP 8 Normal 5-15 [facility] Comment on above: Performed By: #### L 500.4050, L100.0100 #### [facility] [address] [place], [address] GFR/1.73 sq M.predicted among non-blacks MDRD (S/P/Bld) [Vol rate/Area] 75 mL/min/{1.73_m2} Normal >60 [facility] Comment on above: Result Comment: Non- GFR Calc Performed By: #### L 500.4050, L100.0100 #### [facility] [address] [place], [address] Globulin (S) [Mass/Vol] 3.3 g/dL Normal 2.2-4.2 [facility] Comment on above: Performed By: #### L 500.4050, L100.0100 #### [facility] [address] [place], [address] Glucose [Mass/Vol] 84 mg/dL Normal 74-106 [facility] Comment on above: Performed By: #### L 500.4050, L100.0100 #### [facility] [address] [place], [address] Potassium [Moles/Vol] 3.8 mmol/L Normal 3.5-5.1 [facility] Comment on above: Performed By: #### L 500.4050, L100.0100 #### [facility] [address] [place], [address] Sodium [Moles/Vol] 137 mmol/L Normal 136-145 [facility] Comment on above: Performed By: #### L 500.4050, L100.0100 #### [facility] [address] [place], [address] T PROT 7.1 g/dL Normal 6.4-8.2 [facility] Comment on above: Performed By: #### L 500.4050, L100.0100 #### [facility] [address] [place], [address] Urea nitrogen [Mass/Vol] 15 mg/dL Normal 7-18 [facility] Comment on above: Performed By: #### L 500.4050, L100.0100 #### [facility] [address] [place], [address] Eosinophil percentageOrdered By: [facility] on 07-21-2024 Eosinophils/100 WBC (Bld) 1.1 % 0-5 [facility] Erythrocyte distribution wid th ratioOrdered By: [facility] on 07-21-2024 Erythrocyte distribution width (RBC) [Ratio] 13.7 % 11.6-14.6 [facility] Erythrocyte distribution wid th standard deviationOrdered By: [facility] on 07-21-2024 Erythrocyte distribution width (RBC) [Ratio] 43.8 fl 35.1-43.9 [facility] Glomerular filtration rate ( GFR) estimationOrdered By: [facility] on 07-21-2024 GFR/1.73 sq M.predicted among non-blacks MDRD (S/P/Bld) [Vol rate/Area] 75 mL/min/{1.73_m2} >60 [facility] Comment on above: Non- GFR Calc Glucose measurementOrdered B y: Theodore Perez on 07-21-2024 Glucose [Mass/Vol] 84 mg/dL 74-106 [facility] Hematocrit Auto (Bld) [Volum e fraction]Ordered By: [facility] on 07-21-2024 Hematocrit (Bld) [Volume fraction] 40.2 % 37-47 [facility] Hemoglobin measurementOrdere d By: Theodore Perez on 07-21-2024 Hemoglobin (Bld) [Mass/Vol] 13.3 g/dL 12.0-15.0 [facility] Immature granulocytes/100 WB C Auto (Bld)Ordered By: Theodore Perez on 07-21-2024 Immature granulocytes/100 WBC (Bld) 0.300 % 0.0-0.9 [facility] Comment on above: IG% - Immature Granu locytes (promyelocytes, myelocytes and metamyelocytes) > 1% indicates that a LEFT SHIFT is Present. Laboratory - Chemistry and C hemistry - challengeOrdered By: Theodore Perez on 07-21-2024 AST [Catalytic activity/Vol] 16 U/L 15-37 [facility] MCV (mean corpuscular volume ) determinationOrdered By: Theodore Perez on 07-21-2024 MCV (RBC) [Entitic vol] 87.6 fL 81-[address] [facility] Mean corpuscular hemoglobin (MCH) determinationOrdered By: Theodore Perez on 07-21-2024 MCH (RBC) [Entitic mass] 29.0 pg 27.0-32.0 [facility] Mean corpuscular hemoglobin concentration (MCHC) determinationOrdered By: Theodore Perez on 07-21-2024 MCHC (RBC) [Mass/Vol] 33.1 g/dL 32-36 [facility] Mean platelet volume determi nationOrdered By: [facility] on 07-21-2024 Platelet mean volume (Bld) [Entitic vol] 9.4 fL 6.2-12.0 [facility] Monocyte percentageOrdered B y: Theodore Perez on 07-21-2024 Monocytes/100 WBC (Bld) 9.5 % 0-[address] [facility] Neutrophil percentageOrdered By: [facility] on 07-21-2024 Neutrophils/100 WBC (Bld) 74.2 % High 47-70 [facility] Nucleated red blood cell per centageOrdered By: [facility] Perze on 07-21-2024 Nucleated RBC/100 WBC (Bld) [Ratio] 0 % 0-5 [facility] Oncology Visit Reporton 06-29 Oncology Visit Report [facility] [address] [place] [address] OFFICE VISIT Date of Service: 07/21/24 1540 MR#: [id number] Acct: [id number] Name: BERE ESPOSITO Rep #: [id number] : 1980 From: Chelsea Hernandez NP DIRECTOR RECREATION -C Age/Sex: 43/F Location: [facility] [place] Status: Signed HPI Subjective Date of Service 07/21/24 Chief Complaint breast cancer on treatment History of Present Illness 43-year-old female with past medical history notable for muscle dystrophy who presented after an abnormal screening mammogram. January 11, 2022 screening mammogram: IMPRESSION: 2 cm irregular urinary density mass with microcalcifications in the upper inner quadrant of the left breast and focal compression views are recommended for further evaluation January 13, 2022 left diagnostic mammogram: IMPRESSION: Persistent soft tissue density with calcifications as described.??? Biopsy recommended. ASSESSMENT CATEGORY: BIRADS Category 4:??? Suspicious. January 18, 2022 Left breast, 11 o???clock, 5 cm, core biopsy: Invasive ductal carcinoma, nuclear grade 2-3 (1.2 cm in greatest length). ANTIBODY / CLONE RESULT E-Cad (ECH-6) positive CK8 ([id number]) positive Calponin-1 (AJ836K) negative CK5-6 (D5 1684) negative P40 (BC28) negative P53 (DO-7) positive, 10% Ki-67 (30-9) positive, 40% MORPHOMETRIC ANALYSIS ER (clone 6F11) >95%, moderate intensity MO (clone 16/1E2) >95%, strong intensity Her-2Neu (clone CB11) 3+ February 02, 2022 breast MRI: IMPRESSION: Irregular enhancing mass in the left breast compatible with the known left breast carcinoma. Two lymph nodes in the left axilla which have no convincing MRI evidence of involvement. ??? February 07, 2022 Left axillary lymph node, biopsy: Lymph node tissue positive for metastatic carcinoma February 22, 2022 PET/CT initial staging: IMPRESSION: 1.??? ABNORMAL EXAMINATION.??? Left breast spiculated nodule meets criteria for viable neoplasm.??? No evidence of metastasis. March 22, 2022 chest CTA: ER visit with dyspnea: IMPRESSION: Multiple tiny nodules in both lungs with increased interstitial markings more prominent at the lung bases.??? Pulmonary metastases with possible lymphangitic spread should be ruled out. Bibasilar atelectasis more prominent on the right side with small right pleural effusion. Marked degree of dextroscoliosis with prior fusion. March 26, 2022 CTA: ER visit with dyspnea: CONCLUSION: Streak artifact.??? No pulmonary emboli identified. Clear lungs.??? The interstitial changes and multiple nodules present on the prior exam have resolved. Small right pleural effusion present on the prior study has resolved. June 08, 2022: CT chest: Preop to follow-up on previously noted lung nodules. IMPRESSION: Small right pleural effusion with right basilar atelectasis. Small pericardial effusion. June 27, 2022 Left breast, mastectomy and axillary node dissection: Negative for residual invasive carcinoma. Six out of six lymph nodes, negative for metastatic carcinoma. Fibrocystic changes, adenosis and intraductal hyperplasia with focal atypia. Frequent microcalcifications. Focal changes consistent with previous biopsy site. COMMENT BREAST CANCER SUMMARY (including previous biopsy specimen [id number]) Procedure ??? total mastectomy (mastectomy and left axillary node dissection) Specimen laterality - left Tumor site ??? as per previous biopsy specimen, 11 o???clock, 5 cm from nipple. Tumor size ??? no residual invasive carcinoma. Histologic type ??? previous biopsy specimen, invasive ductal carcinoma. Histologic grade (Linwood grade): Previous biopsy specimen [id number]) Glandular/tubular differentiation score - 3 Nuclear pleomorphism score - 3 Mitotic count score - 1 No residual carcinoma. Ductal carcinoma in situ ??? not seen Lobular carcinoma in situ ??? not seen Tumor extension: Skin ??? skin is present and uninvolved. Nipple ??? ductal carcinoma in situ does not involve nipple epidermis. Skeletal muscle ??? skeletal muscle is present and dissection tissue is free of tumor. Margins: Invasive carcinoma margin ??? cannot be assessed as no invasive carcinoma is noted. Regional lymph nodes: Total number of lymph nodes examined - 6 Number of lymph nodes with macrometastases, micrometastases or isolated tumor cells - 0 Treatment effect in the breast ??? definite response to presurgical therapy in invasive carcinoma. Treatment effect in lymph nodes ??? no lymph node metastasis and no fibrous scarring in the lymph node is noted. Lymphvascular invasion ??? not identified Dermal lymphvascular invasion - not identified Distant metastasis ??? not applicable Additional Pathologic Findings ??? fibrocystic changes, adenosis and intraductal hyperplasia with focal atypia. Ancillary Studie (more content not included)... Normal [facility] Platelet countOrdered By: Juanita Perez on 07-21-2024 Platelets (Bld) [#/Vol] 262 10*3/uL 150-450 [facility] Potassium measurementOrdered By: Theodore Perez on 07-21-2024 Potassium [Moles/Vol] 3.8 mmol/L 3.5-5.1 [facility] RBC Auto (Bld) [#/Vol]Ordere d By: Theodore Perez on 07-21-2024 RBC (Bld) [#/Vol] 4.59 10*6/uL 4.2-5.4 [facility] Serum anion gap measurementO rdered By: Theodore Perez on 07-21-2024 Anion gap [Moles/Vol] 8 mmol/L 5-15 [facility] Serum globulin measurementOr dered By: Theodore Perez on 07-21-2024 Globulin (S) [Mass/Vol] 3.3 g/dL 2.2-4.[address] [facility] Serum or plasma alanine briones otransferase (ALT) measurementOrdered By: Theodore Perez on 07-21-2024 ALT [Catalytic activity/Vol] 20 U/L 13-56 [facility] Serum or plasma albumin marilin urement (mass/volume)Ordered By: Theodore Perez on 07-21-2024 Albumin [Mass/Vol] 3.8 g/dL 3.2-5.0 [facility] Serum or plasma alkaline emily sphatase measurementOrdered By: Theodore Perez on 07-21-2024 ALP [Catalytic activity/Vol] 83 U/L 45-117 [facility] Serum or plasma calcium marilin urement (mass/volume)Ordered By: Theodore Perez on 07-21-2024 Calcium [Mass/Vol] 8.8 mg/dL 8.5-10.1 [facility] Serum or plasma creatinine m easurement (mass/volume)Ordered By: Theodore Perez on 07-21-2024 Creatinine [Mass/Vol] 0.87 mg/dL 0.55-1.02 [facility] Comment on above: The validity of the calculated GFR & GFRAA in patients over 70 years has not been determined. Clinical correlation is essential. Serum or plasma urea nitroge n measurement (mass/volume)Ordered By: Theodore Perez on 07-21-2024 Urea nitrogen [Mass/Vol] 15 mg/dL 7-18 [facility] Sodium levelOrdered By: Kalyan Perez on 07-21-2024 Sodium [Moles/Vol] 137 mmol/L 136-145 [facility] Total proteinOrdered By: Garett Perez on 07-21-2024 Protein [Mass/Vol] 7.1 g/dL 6.4-8.2 [facility] White blood cell (WBC) count Ordered By: Theodore Perez on 07-21-2024 WBC (Bld) [#/Vol] 10.3 10*3/uL 4.4-11.0 [facility] Inital Evaluation (1) - PTon 07-01-2024 Inital Evaluation (1) - PT [facility] Physical Therapy [facility] [address] [place] [address] / REHABILITATION SERVICES INITIAL EVALUATION MR#: [id number] Acct: [id number] Name: BERE ESPOSITO Rep #: [id number] : 1980 43 From: Sg Carter DPT Referring Dr.: Dr. Jam Verde MD Status: REG R CR Insurance: [employer] FOR [employer] SELF PAY INSURANCE Patient's Visit Information Visit Information Visit Information: BERE ESPOSITO is a 43 year old F referred to Physical Therapy by Dr. Jam Verde MD with a diagnosis of Cervicalgia, imbalance. Date of Evaluation: 07/01/24 Physical Therapist: Sg Carter DPT Visit Plan Frequency: 2x /Week Duration: 6 Weeks Plan: 1) cervical distances, SCM SMT/stretching 2) core and hip strengthening 3) static and dynamic balance training 4) progression without Ad to increase stability/safety. May use Functional balance assessment if balance is not progressing. Subjective Subjective: Pt. is here today for her initial evaluation with diagnosis of cervicalgia, imbalance. PMH of musculature dystrophia and more recent breast cancer. During her CA treatment she has a wound on her leg and was unable to wear her braces and feels like she has become weaker since. Pt. reports falling 1 year ago when she face planted. Pt. reports having issues with her neck and fear of falling since. Pt. has been using a walker or walking behind a wc for stability. She is occasionally walking without AD. She reports walking with wide YUNIEL for stability. She reports occasionally feeling like she is falling to the L side. Pt. reports having L sided neck pain. Pt. did have an MRI of both brain and cervical spine both reading normal. Pt. reports having some occasional L arm tingling at time. Pt. feeling her neck issue is adding to her imbalance and due to her MD this is effecting her more. Pt. is hopeful to improve her off feeling in order to get back to all work and recreational activities with decreased risk for falls. Pain Cervical spine: Pain Intensity (Out of 10): 5 Comment: L side of cervical spine Objective Objective: POSTURE: Pt. has wide YUNIEL in stance. Pt. does have 2 leg braces that lock out while standing to increase LE stability. Pt. has marked thoracic scoliosis as well. PALPATION: Pt. has tenderness at L SCM and upper cervical sine. NEURO: normal sensation in BUEs. No radicular UE symptoms noted. Negative vertebral artery test. ROM: cervical spine: flexion max loss mild increase NW, ext min/nil loss NE, SB R mod loss increase NW, SB L min loss NE, rotation mod loss bilat NE. MMT: Pt. has full strength of BUEs.. Pt. does have marked weakness in BLEs, distally she does not have much strength at all due to her MD. Pt. has 4-/5 B hip abduction strength, ext 4/5 bilat fle xion 4-/5 bilat. Core strength poor. GAIT: pt. ambulates with wide YUNIEL. Leg braces locked out in extension, reducing foot clearance. She had large lateral sway to advance LEs. Pt. was able to decrease YUNIEL with CGA. Balance/Special Test Scores Functional Gait Assessment Score: 7 % Disability: 76.6700 CATSIB Score (Max score 120 seconds): 41 Oswestry Neck Score: 13 TUG Test Time Seconds: 33 Goals Goal 1:: LTG: Pt. to be I with HEP. Goal Time Frame: 4-6 Weeks Goal 2:: LTG: pt. to reports no occurrences of off feeling with all work activities and with cervical mobility. Goal Time Frame: 4-6 Weeks Goal 3:: LTG: Pt. to have increased core and B hip strength to at least 4+/5 throughout. Goal Time Frame: 4-6 Weeks Goal 4:: LTG: Pt. to have increased FGA to 15/30 indicating improved stability and reduced risk for falls. Goal Time Frame: 6-8 Weeks Goal 5:: LTG: pt. to ambulate 150' with out AD with more narrow YUNIEL and without need to hold onto AD or person for assistance. Goal Time Frame: 4-6 Weeks Rehabilitation Potential Physical Therapy Diagnosis: Pt. has signs and symptoms consistent with cervicalgia and imbalance. Pt. has a PMH of MD resulting in distal LE weakness. Pt. has what appears to be an off feeling/imbalance due to some possibly tigthness at SCM on L side. She also has marked weakness throughout LEs, worse distally. Pt. would benefit from PT to address her limitations progressing her LE strength and imbalance in order to get back to all previous work related activities. Rehabilitation Potential: Good Anticipated Interventions Patient/Client Instruction: Educate patient on: Condition, Plan of Care, Risk Factors and Benefits of Fitness Program For the Purpose of:: To improve decision making, To facilitate caregiver knowledge, To improve self management, To prevent re-injury, To improve ability to perform tasks related to life management and To improve tolerance to ADL's Therapeutic Exercise to Include: Strength training, Power training, Balance training, Postural train (more content not included)... Normal [facility] Brain W/WO Contraston 2023 Brain W/WO Contrast [facility] Imaging Services [address] [place] [address] [id number] Brain W/WO Contrast MR#: [id number] Acct: [id number] Name: BERE ESPOSITO Rep #: [id number] : 1980 F 43 From: Matthew Melendez MD PCP: Dr. Jam Verde MD Status: REG [facility] Study: Brain W/WO Contrast Date of Exam: 05/23/24 Exam# [id number] Ordering Dr: Chelsea Hernandez NP DIRECTOR RECREATION -[id number] STUDY: MRI BRAIN WITH AND WITHOUT CONTRAST REASON FOR EXAM: Female, 43 years old. imbalance; h/o breast ca TECHNIQUE: Standardized multiplanar fat and water weighted pulse sequences were obtained. 10cc clariscan was administered for the contrast portion of the examination. COMPARISON: None. FINDINGS: Normal size of the ventricles and extra-axial spaces for the patient''s age. Normal white matter tracts of the supratentorial brain. There is no evidence for recent intracranial ischemia or other cause of cytotoxic edema on diffusion weighted imaging (DWI). Normal T2* images of the brain without demonstrated susceptibility artifact. There is no demonstrated hemosiderin stain. Normal bilateral basal ganglia. Normal thalami. There is no extra-axial fluid accumulation. Normal flow voids within the major intracranial circulation suggesting patency by spin echo criteria. Normal venous enhancement. There is no enhancing intra-axial or extra-axial abnormality. Normal sella turcica, pituitary gland, infundibular stalk, optic chiasm and hypothalamus. Normal tectal plate and pineal gland. Normal midbrain, yobani and medulla. Normal cerebellum. Normal basal cisterns. Normal bilateral temporal bones. Normal bilateral internal auditory canals. No demonstrated orbital abnormality, within the constraints of a routine brain study. Normal visualized paranasal sinuses. Normal calvarium and skull base. Normal visualized soft tissue structures. Normal visualized upper cervical spine. MRI/Brain W/WO Contrast IMPRESSION: Normal unenhanced and enhanced MRI of the brain. Electronically Signed: Matthew Melendez MD at 13:11 EST , CC: NGOZI Hernandez; Dr. 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: Signed Normal [facility] Spine Cervical W/WO Contrast on 05-23-2024 Spine Cervical W/WO Contrast [facility] Imaging Services [address] [place] [id number] Spine Cervical W/WO Contrast MR#: [id number] Acct: [id number] Name: BERE ESPOSITO Rep #: [id number] : 1980 F 43 From: Matthew Melendez MD PCP: Dr. Jam Verde MD Status: REG CLI Study: Spine Cervical W/WO Contrast Date of Exam: Exam# [id number] Ordering Dr: Chelsea Hernandez NP DIRECTOR RECREATION -C [id number] STUDY: MRI CERVICAL SPINE WITH AND WITHOUT CONTRAST REASON FOR EXAM: Female, 43 years old. imbalance, right sided neck pain;history of breast TECHNIQUE: Standardized fat and water weighted pulse sequences were obtained in the sagittal and axial following administration of IV 10CC CLARISCAN. COMPARISON: None FINDINGS: Normal foramen magnum and brainstem-cervical cord junction. Normal craniovertebral junction. Normal anterior atlantoaxial articulation. Normal odontoid process. Normal cervical lordosis. Normal vertebral bodies and posterior osseous elements. C2-3: Normal endplates. Normal disc height, signal and morphology. Normal central canal and intervertebral neural foramina. C3-4: Normal endplates. Normal disc height, signal and morphology. Normal central canal and intervertebral neural foramina. C4-5: Normal endplates. Normal disc height, signal and morphology. Normal central canal and intervertebral neural foramina. C5-6: Normal endplates. Normal disc height, signal and morphology. Normal central canal and intervertebral neural foramina. C6-7: Normal endplates. Normal disc height, signal and morphology. Normal central canal and intervertebral neural foramina. C7-T1: Normal endplates. Normal disc height, signal and morphology. Normal central canal and intervertebral neural foramina. Normal cervical cord. Normal visualized soft tissue structures. MRI/Spine Cervical W/WO Contrast IMPRESSION: Normal unenhanced and enhanced MR examination of the cervical spine. Electronically Signed: Matthew Melendez MD at 13:14 EST , CC: NGOZI Hernandez; Dr. 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: Signed Normal [facility] Basic Metabolic Profile (BMP )on 04-28-2024 BUN Normal -18 [facility] Comment on above: Result Comment: PER [facility] NURSE NOT NEEDED TODAY. Performed By: #### L 500.2500 #### [facility] [address] [place], [address] BUN/CRE Normal 10-20 [facility] Comment on above: Result Comment: PER [facility] NURSE NOT NEEDED TODAY. Performed By: #### L 500.2500 #### [facility] [address] [place], [address] CA,Total Normal 8.5-10.1 [facility] Comment on above: Result Comment: PER [facility] NURSE NOT NEEDED TODAY. Performed By: #### L 500.2500 #### [facility] [address] [place], [address] CL Normal 98-107 [facility] Comment on above: Result Comment: PER [facility] NURSE NOT NEEDED TODAY. Performed By: #### L 500.2500 #### [facility] [address] [place], [address] CO2 Normal 21.0-32.0 [facility] Comment on above: Result Comment: PER [facility] NURSE NOT NEEDED TODAY. Performed By: #### L 500.2500 #### [facility] [address] [place], [address] CREAT,SERUM Normal 0.55-1.02 [facility] Comment on above: Result Comment: PER [facility] NURSE NOT NEEDED TODAY. Performed By: #### L 500.2500 #### [facility] [address] [place], [address] EST GFR Normal >60 [facility] Comment on above: Result Comment: PER [facility] NURSE NOT NEEDED TODAY. Performed By: #### L 500.2500 #### [facility] [address] [place], [address] EST GFR - AA Normal >60 [facility] Comment on above: Result Comment: PER [facility] NURSE NOT NEEDED TODAY. Performed By: #### L 500.2500 #### [facility] [address] [place], [address] GAP Normal 5-15 [facility] Comment on above: Result Comment: PER [facility] NURSE NOT NEEDED TODAY. Performed By: #### L 500.2500 #### [facility] [address] [place], [address] GLU Normal 74-106 [facility] Comment on above: Result Comment: [facility] Performed By: #### L 500.2500 #### [facility] [address] [place], [address] Potassium Normal 3.5-5.1 [facility] Comment on above: Result Comment: [facility]. Performed By: #### L 500.2500 #### [facility] [address] [place], [address] Basic Metabolic Profile (BMP) Normal 136-145 [facility] Comment on above: Result Comment: PER [facility] NURSE NOT NEEDED TODAY. Performed By: #### L 500.2500 #### [facility] [address] [place], [address] Basic Metabolic Profile (BMP )on 04-17-2024 BUN/CRE 21.0 RATIO High 10-20 [facility] Comment on above: Performed By: #### L [id number] #### [facility] [address] [place], [address] CA,Total 9.2 mg/dL Normal 8.5-10.1 [facility] Comment on above: Performed By: #### L 500.2500 #### [facility] [address] [place], [address] Chloride [Moles/Vol] 107 mmol/L Normal 98-107 [facility] Comment on above: Performed By: #### L 500.2500 #### [facility] [address] [place], [address] CO2 [Moles/Vol] 28.0 mmol/L Normal 21.0-32.0 [facility] Comment on above: Performed By: #### L 500.2500 #### [facility] [address] [place], [address] Creatinine [Mass/Vol] 0.81 mg/dL Normal 0.55-1.02 [facility] Comment on above: Result Comment: The validity of the calculated GFR GFRAA in patients over 70 years has not been determined. Clinical correlation is essential. Performed By: #### L 500.2500 #### [facility] [address] [place], [address] ECRCL 63.00 ml/min Normal [facility] Comment on above: Performed By: #### L 500.2500 #### [facility] [address] [place], [address] EST GFR - AA 98 mL/min Normal >60 [facility] Comment on above: Result Comment: Afri can Macedonian GFR Calc Performed By: #### L 500.2500 #### [facility] [address] [place], [address] GAP 6 Normal 5-15 [facility] Comment on above: Performed By: #### L 500.2500 #### [facility] [address] [place], [address] GFR/1.73 sq M.predicted among non-blacks MDRD (S/P/Bld) [Vol rate/Area] 81 mL/min/{1.73_m2} Normal >60 [facility] Comment on above: Result Comment: Non- GFR Calc Performed By: #### L 500.2500 #### [facility] [address] [place], [address] Glucose [Mass/Vol] 114 mg/dL High 74-106 [facility] Comment on above: Result Comment: Fast ing Glucose result from 100 to 125 mg/dL suggests IMPAIRED HOMEOSTASIS per A.D.A. criteria. Performed By: #### L 500.2500 #### [facility] [address] [place], [address] Potassium [Moles/Vol] 3.8 mmol/L Normal 3.5-5.1 [facility] Comment on above: Performed By: #### L 500.2500 #### [facility] [address] [place], [address] Sodium [Moles/Vol] 141 mmol/L Normal 136-145 [facility] Comment on above: Performed By: #### L 500.2500 #### [facility] [address] [place], [address] Urea nitrogen [Mass/Vol] 17 mg/dL Normal 7-18 [facility] Comment on above: Performed By: #### L 500.2500 #### [facility] [address] [place], [address] Oncology Visit Reporton 03-29 Oncology Visit Report [facility] [address] [place] [address] OFFICE VISIT Date of Service: 04/17/24 1416 MR#: [id number] Acct: [id number] Name: BERE ESPOSITO Rep #: [id number] : 1980 From: Chelsea Hernandez NP DIRECTOR RECREATION -C Age/Sex: 43/F Location: [facility] [place] Status: Signed HPI Subjective Date of Service 04/17/24 Chief Complaint breast cancer on treatment History of Present Illness 43-year-old female with past medical history notable for muscle dystrophy who presented after an abnormal screening mammogram. January 11, 2022 screening mammogram: IMPRESSION: 2 cm irregular urinary density mass with microcalcifications in the upper inner quadrant of the left breast and focal compression views are recommended for further evaluation January 13, 2022 left diagnostic mammogram: IMPRESSION: Persistent soft tissue density with calcifications as described.??? Biopsy recommended. ASSESSMENT CATEGORY: BIRADS Category 4:??? Suspicious. January 18, 2022 Left breast, 11 o???clock, 5 cm, core biopsy: Invasive ductal carcinoma, nuclear grade 2-3 (1.2 cm in greatest length). ANTIBODY / CLONE RESULT E-Cad (ECH-6) positive CK8 ([id number]) positive Calponin-1 (VG545W) negative CK5-6 (D5 1684) negative P40 (BC28) negative P53 (DO-7) positive, 10% Ki-67 (30-9) positive, 40% MORPHOMETRIC ANALYSIS ER (clone 6F11) >95%, moderate intensity MO (clone 16/1E2) >95%, strong intensity Her-2Neu (clone CB11) 3+ February 02, 2022 breast MRI: IMPRESSION: Irregular enhancing mass in the left breast compatible with the known left breast carcinoma. Two lymph nodes in the left axilla which have no convincing MRI evidence of involvement. ??? February 07, 2022 Left axillary lymph node, biopsy: Lymph node tissue positive for metastatic carcinoma February 22, 2022 PET/CT initial staging: IMPRESSION: 1.??? ABNORMAL EXAMINATION.??? Left breast spiculated nodule meets criteria for viable neoplasm.??? No evidence of metastasis. March 22, 2022 chest CTA: ER visit with dyspnea: IMPRESSION: Multiple tiny nodules in both lungs with increased interstitial markings more prominent at the lung bases.??? Pulmonary metastases with possible lymphangitic spread should be ruled out. Bibasilar atelectasis more prominent on the right side with small right pleural effusion. Marked degree of dextroscoliosis with prior fusion. March 26, 2022 CTA: ER visit with dyspnea: CONCLUSION: Streak artifact.??? No pulmonary emboli identified. Clear lungs.??? The interstitial changes and multiple nodules present on the prior exam have resolved. Small right pleural effusion present on the prior study has resolved. June 08, 2022: CT chest: Preop to follow-up on previously noted lung nodules. IMPRESSION: Small right pleural effusion with right basilar atelectasis. Small pericardial effusion. June 27, 2022 Left breast, mastectomy and axillary node dissection: Negative for residual invasive carcinoma. Six out of six lymph nodes, negative for metastatic carcinoma. Fibrocystic changes, adenosis and intraductal hyperplasia with focal atypia. Frequent microcalcifications. Focal changes consistent with previous biopsy site. COMMENT BREAST CANCER SUMMARY (including previous biopsy specimen [id number]) Procedure ??? total mastectomy (mastectomy and left axillary node dissection) Specimen laterality - left Tumor site ??? as per previous biopsy specimen, 11 o???clock, 5 cm from nipple. Tumor size ??? no residual invasive carcinoma. Histologic type ??? previous biopsy specimen, invasive ductal carcinoma. Histologic grade (Linwood grade): Previous biopsy specimen [id number]) Glandular/tubular differentiation score - 3 Nuclear pleomorphism score - 3 Mitotic count score - 1 No residual carcinoma. Ductal carcinoma in situ ??? not seen Lobular carcinoma in situ ??? not seen Tumor extension: Skin ??? skin is present and uninvolved. Nipple ??? ductal carcinoma in situ does not involve nipple epidermis. Skeletal muscle ??? skeletal muscle is present and dissection tissue is free of tumor. Margins: Invasive carcinoma margin ??? cannot be assessed as no invasive carcinoma is noted. Regional lymph nodes: Total number of lymph nodes examined - 6 Number of lymph nodes with macrometastases, micrometastases or isolated tumor cells - 0 Treatment effect in the breast ??? definite response to presurgical therapy in invasive carcinoma. Treatment effect in lymph nodes ??? no lymph node metastasis and no fibrous scarring in the lymph node is noted. Lymphvascular invasion ??? not identified Dermal lymphvascular invasion - not identified Distant metastasis ??? not applicable Additional Pathologic Findings ??? fibrocystic changes, adenosis and intraductal hyperplasia with focal atypia. Ancillary Studie (more content not included)... Normal [facility] Project Design Engineer Office Visit Reporton 03-24-2024 Project Design Engineer Office Visit Report [facility] [address], [address] [place] [address] OFFICE VISIT Date of Service: 03/24/24 MR#: [id number] Acct: [id number] Name: BERE ESPOSITO Rep #: [id number] : 1980 Provider: NGOZI chapman Age/Sex: 43/F [place] [facility] [place]: Signed Intake Vital Signs 05/07/23 08:45 05/07/23 10:04 03/06/24 14:02 03/24/24 09:59 03/24/24 10:03 Height 4 ft 6 in 4 ft 6 in 4 ft 9 in 4 ft 6 in 4 ft 9 in Weight: 114 lb BMI 27.4 BP 106/70 Intake Visit 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), 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 Chief Complaint: Annual Revenue Accounting Manager Required: No Is patient in pain?: No Allergies kiwi Allergy (Mild, Verified 03/24/24 10:09) Anaphylaxis Penicillins Allergy (Mild, Verified 03/24/24 10:09) Anaphylaxis Gadolinium-MRI Contrast Medium (contrast dye) Adverse Reaction (Verified 03/24/24 10:09) Shortness of breath Medications ???Medication ???Instructions ???Recorded ???Confirmed ???Type ascorbic acid (vitamin C) 500 mg 500 mg PO BIDCM supplement 06/30/22 03/24/24 History tablet calcitriol 0.5 mcg capsule 0.5 mcg PO DAILY #30 caps 07/12/22 03/24/24 Rx magnesium chloride 64 mg 128 mg (2 x 64 mg) PO TID #180 tabs 07/12/22 03/24/24 Rx (magnesium chloride) tablet,delayed release (Mag 64) pantoprazole 40 mg tablet,delayed 40 mg PO BID #60 tabs 07/12/22 03/24/24 Rx release spironolactone 25 mg tablet 25 mg PO BID Check with primary 07/12/22 03/24/24 Rx doctor #60 tabs vitamin E (dl, acetate) 180 mg 400 units PO DAILYCM supplement 07/12/22 03/24/24 Rx (400 unit) capsule #30 caps zinc sulfate 50 mg zinc (220 mg) 220 mg (4.4 x 50 mg zinc (220 mg)) 07/12/22 03/24/24 Rx capsule PO DAILY supplement #30 caps mirtazapine 7.5 mg tablet 7.5 mg PO DAILY 04/16/23 03/24/24 History tamoxifen 20 mg tablet 20 mg PO DAILY #90 tabs 03/19/24 03/24/24 Rx Is last menstrual period known: No Post menopausal: No Patient : No : No Nurse's Note: No menses, on tamoxifen. [facility] Medical History Hot flashes due to tamoxifen Wears glasses Open wound Uses wheelchair Osteoporosis History of renal disease Anemia Blackout Gastric reflux PEG (percutaneous endoscopic gastrostomy) adjustment/replacement /removal Cardiology follow-up encounter Muscular dystrophy Encounter for monitoring cardiotoxic drug therapy Vitamin D deficiency Muscular dystrophy Nausea Phlegmonous peritonitis Localized peritonitis Sepsis without acute organ dysfunction Mucositis (ulcerative) due to antineoplastic therapy Diarrhea Dehydration Encounter for chemotherapy management Thrombocytosis Anemia Thrombocytosis Hypomagnesemia Leg sore Mucositis (ulcerative) due to antineoplastic therapy Oral candidiasis Lung nodule, multiple Hypokalemia Diarrhea due to drug CINV (chemotherapy-induced nausea and vomiting) Encounter for education Port-A-Cath in place Braces as ambulation aid Depression Anxiety Alcohol use Arthritis History of diverticulitis Heartburn Non-smoker CPAP (continuous positive airway pressure) dependence History of edema History of irregular heartbeat History of echocardiogram Elevated C-reactive protein (CRP) (12/26/21) Breast cancer, left breast Breast cancer Arthrogryposis Surgical History History of lymph node dissection of axilla S/P left mastectomy History of colonoscopy History of lymph node biopsy H/O release of tendon History of spinal fusion Family History Mother Diabetes Hypertension High cholesterol Thyroid disorder Uncle Cancer non-hodgkins lymphoma Grandfather Heart disease Grandmother Heart disease Brother Hypertension Unknown Breast cancer mother had 2 cousins with aggressive breast cancer Unknown Thyroid cancer maternal cousin Other Arthritis Depression Social History (Updated 03/24/24 @ 10:02 by Kayla Kelley) household members: family current occupational status: employed current occupation: [employer] work [employer] Smoking Status: Never smoker alcohol intake: current alcohol intake frequency: holidays/special occasions only details: occasional substance use type: does not use seatbelt use: always do you feel safe at home: Yes additional social history: Single History 0 Elective abortions Hx Para Spontaneous abortions Hx # Term Pregnancies Ectopic pregnancies Hx # Pregnancies Multiple births # of living children HPI 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 History of left breast cancer 2021. Never sexually active. Pelvic ex (more content not included)... Normal [facility] Radiation Oncology Visiton 1 Radiation Oncology Visit [facility] [address] [place], [place] [address] OFFICE VISIT Date of Service: 03/06/24 1401 MR#: [id number] Acct: [id number] Name: BERE ESPOSITO Rep #: [id number] : 1980 From: Klaus Cartagena DO Age/Sex: 43/F [place] [facility] [place] Status: Signed Intake Vital Signs 11/06/23 14:16 01/23/24 16:08 03/06/24 14:02 Height 4 ft 9 in 4 ft 9 in 4 ft 9 in Weight: 111 lb 8 oz 111 lb 3 oz BMI 24.1 24.0 BP 107/74 108/76 Blood Pressure Location Rt brachial Rt brachial Position Sitting Sitting Respiration 16 16 Pulse 93 90 Pulse Source Monitor Monitor Temp 97.3 F L 97.6 F L Temperature Source Temporal Artery Temporal Artery Pulse Oximetry (%) 99 97 Oxygen Delivery Method room air room air Intake Visit Reasons: 4 MONTH F/U BREAST Is patient in pain?: No Allergies kiwi Allergy (Mild, Verified 03/06/24 14:05) Anaphylaxis Penicillins Allergy (Mild, Verified 03/06/24 14:05) Anaphylaxis Gadolinium-MRI Contrast Medium (contrast dye) Adverse Reaction (Verified 03/06/24 14:05) Shortness of breath Medications ???Medication ???Instructions ???Recorded ???Confirmed ???Type ascorbic acid (vitamin C) 500 mg 500 mg PO BIDCM supplement 06/30/22 03/06/24 History tablet calcitriol 0.5 mcg capsule 0.5 mcg PO DAILY #30 caps 07/12/22 03/06/24 Rx magnesium chloride 64 mg 128 mg (2 x 64 mg) PO TID #180 tabs 07/12/22 03/06/24 Rx (magnesium chloride) tablet,delayed release (Mag 64) pantoprazole 40 mg tablet,delayed 40 mg PO BID #60 tabs 07/12/22 03/06/24 Rx release spironolactone 25 mg tablet 25 mg PO BID Check with primary 07/12/22 03/06/24 Rx doctor #60 tabs tramadol 50 mg tablet 50 - 100 mg (1 - 2 x 50 mg) PO Q6H 07/12/22 03/06/24 Rx PRN PRN PAIN 4-10 #28 tabs vitamin E (dl, acetate) 180 mg 400 units PO DAILYCM supplement 07/12/22 03/06/24 Rx (400 unit) capsule #30 caps zinc sulfate 50 mg zinc (220 mg) 220 mg (4.4 x 50 mg zinc (220 mg)) 07/12/22 03/06/24 Rx capsule PO DAILY supplement #30 caps tamoxifen 20 mg tablet 20 mg PO DAILY #90 tabs 01/22/23 03/06/24 Rx mirtazapine 7.5 mg tablet 7.5 mg PO DAILY 04/16/23 03/06/24 History PFSH PFSH Medical History Well woman exam Hot flashes due to tamoxifen Wears glasses Open wound Uses wheelchair Osteoporosis History of renal disease Anemia Blackout Gastric reflux PEG (percutaneous endoscopic gastrostomy) adjustment/replacement /removal Cardiology follow-up encounter Muscular dystrophy Encounter for monitoring cardiotoxic drug therapy Vitamin D deficiency Muscular dystrophy Nausea Phlegmonous peritonitis Localized peritonitis Sepsis without acute organ dysfunction Mucositis (ulcerative) due to antineoplastic therapy Diarrhea Dehydration Encounter for chemotherapy management Thrombocytosis Anemia Thrombocytosis Hypomagnesemia Leg sore Mucositis (ulcerative) due to antineoplastic therapy Oral candidiasis Lung nodule, multiple Hypokalemia Diarrhea due to drug CINV (chemotherapy-induced nausea and vomiting) Encounter for education Port-A-Cath in place Braces as ambulation aid Depression Anxiety Alcohol use Arthritis History of diverticulitis Heartburn Non-smoker CPAP (continuous positive airway pressure) dependence History of edema History of irregular heartbeat History of echocardiogram Elevated C-reactive protein (CRP) (12/26/21) Breast cancer, left breast Breast cancer Arthrogryposis Home Medications ???Medication ???Instructions ???Recorded ???Last Taken ???Type ascorbic acid (vitamin C) 500 mg 500 mg PO BIDCM supplement 06/30/22 06/30/22 09:00 History tablet calcitriol 0.5 mcg capsule 0.5 mcg PO DAILY #30 caps 07/12/22 Unknown Rx magnesium chloride 64 mg 128 mg (2 x 64 mg) PO TID #180 tabs 07/12/22 Unknown Rx (magnesium chloride) tablet,delayed release (Mag 64) pantoprazole 40 mg tablet,delayed 40 mg PO BID #60 tabs 07/12/22 Unknown Rx release spironolactone 25 mg tablet 25 mg PO BID Check with primary 07/12/22 Unknown Rx doctor #60 tabs tramadol 50 mg tablet 50 - 100 mg (1 - 2 x 50 mg) PO Q6H 07/12/22 Unknown Rx PRN PRN PAIN 4-10 #28 tabs vitamin E (dl, acetate) 180 mg 400 units PO DAILYCM supplement 07/12/22 06/30/22 09:00 Rx (400 unit) capsule #30 caps zinc sulfate 50 mg zinc (220 mg) 220 mg (4.4 x 50 mg zinc (220 mg)) 07/12/22 06/30/22 09:00 Rx capsule PO DAILY supplement #30 caps tamoxifen 20 mg tablet 20 mg PO DAILY #90 tabs 01/22/23 Unknown Rx mirtazapine 7.5 mg tablet 7.5 mg PO DAILY 04/16/23 Unknown History Allergy/AdvReac Type Severity Reaction Status Date / Time kiwi Allergy Mild Anaphylaxis Verified 03/06/24 14:05 Penicillins Allergy Mild (more content not included)... Normal [facility] CBC W/Diff, Automatedon 12-27 Absolute Lymph 1.60 X10 3/uL Normal 0.83-4.51 [facility] Comment on above: Performed By: #### L 100.0100, L500.4050 ####[facility] [address] [place], [address] Absolute Neut 7.4 X10 3/uL Normal 2.0-7.7 [facility] Comment on above: Performed By: #### L 100.0100, L500.4050 ####[facility] [address] [place], [address] Basophils/100 WBC (Bld) 0.6 % Normal 0-[address] [facility] Comment on above: Performed By: #### L 100.0100, L500.4050 ####[facility] [address] [place], [address] Eosinophils/100 WBC (Bld) 1.0 % Normal 0-5 [facility] Comment on above: Performed By: #### L 100.0100, L500.4050 ####[facility] [address] [place], [address] Erythrocyte distribution width (RBC) [Ratio] 12.7 % Normal 11.6-14.6 [facility] Comment on above: Performed By: #### L 100.0100, L500.4050 ####[facility] [address] [place], [address] Hematocrit (Bld) [Volume fraction] 41.8 % Normal 37-47 [facility] Comment on above: Performed By: #### L 100.0100, L500.4050 ####[facility] [address] [place], [address] Hemoglobin (Bld) [Mass/Vol] 14.3 g/dL Normal 12.0-15.0 [facility] Comment on above: Performed By: #### L 100.0100, L500.4050 ####[facility] [address] [place], [address] IG% 0.400 Normal 0.0-0.9 [facility] Comment on above: Result Comment: IG% - Immature Granulocytes (promyelocytes, myelocytes and metamyelocytes) > 1% indicates that a LEFT SHIFT is Present. Performed By: #### L 100.0100, L500.4050 ####[facility] [address] [place], [address] Lymphocytes/100 WBC (Bld) 16.0 % Low 19-41 [facility] Comment on above: Performed By: #### L 100.0100, L500.4050 ####[facility] [address] [place], [address] MCH (RBC) [Entitic mass] 29.9 pg Normal 27.0-32.0 [facility] Comment on above: Performed By: #### L 100.0100, L500.4050 ####[facility] [address] [place], [address] MCHC (RBC) [Mass/Vol] 34.2 g/dL Normal 32-36 [facility] Comment on above: Performed By: #### L 100.0100, L500.4050 ####[facility] [address] [place], [address] MCV (RBC) [Entitic vol] 87.4 fL Normal 81-[address] [facility] Comment on above: Performed By: #### L 100.0100, L500.4050 ####[facility] [address] [place], [address] Monocytes/100 WBC (Bld) 7.5 % Normal 0-10 [facility] Comment on above: Performed By: #### L 100.0100, L500.4050 ####[facility] [address] [place], [address] Neutrophils/100 WBC (Bld) 74.5 % High 47-70 [facility] Comment on above: Performed By: #### L 100.0100, L500.4050 ####[facility] [address] [place], [address] Nucleated RBC (Bld) [#/Vol] 0 10*3/uL Normal 0-5 [facility] Comment on above: Performed By: #### L 100.0100, L500.4050 ####[facility] [address] [place], [address] Platelet mean volume (Bld) [Entitic vol] 9.6 fL Normal 6.2-12.0 [facility] Comment on above: Performed By: #### L 100.0100, L500.4050 ####[facility] [address] [place], [address] Platelets (Bld) [#/Vol] 208 10*3/uL Normal 150-450 [facility] Comment on above: Performed By: #### L 100.0100, L500.4050 ####[facility] [address] [place], [address] RBC (Bld) [#/Vol] 4.78 10*6/uL Normal 4.2-5.4 [facility] Comment on above: Performed By: #### L 100.0100, L500.4050 ####[facility] [address] [place], [address] RDW SD 40.7 fl Normal 35.1-43.9 [facility] Comment on above: Performed By: #### L 100.0100, L500.4050 ####[facility] [address] [place], [address] WBC (Bld) [#/Vol] 10.0 10*3/uL Normal 4.4-11.0 [facility] Comment on above: Performed By: #### L 100.0100, L500.4050 ####[facility] [address] [place], [address] Comprehensive Metabolic Prof [facility] 01-23-2024 Albumin [Mass/Vol] 3.7 g/dL Normal 3.2-5.0 [facility] Comment on above: Performed By: #### L 100.0100, L500.4050 ####[facility] [address] [place], [address] Albumin/Globulin [Mass ratio] 1.0 {ratio} Normal 0.9-2.4 [facility] Comment on above: Performed By: #### L 100.0100, L500.4050 ####[facility] [address] [place], [address] ALK P 100 U/L Normal 45-117 [facility] Comment on above: Performed By: #### L 100.0100, L500.4050 ####[facility] [address] [place], [address] ALT [Catalytic activity/Vol] 18 U/L Normal 13-56 [facility] Comment on above: Performed By: #### L 100.0100, L500.4050 ####[facility] [address] [place], [address] AST [Catalytic activity/Vol] 18 U/L Normal 15-37 [facility] Comment on above: Performed By: #### L 100.0100, L500.4050 ####[facility] [address] [place], [address] Bilirubin [Mass/Vol] 0.30 mg/dL Normal 0.20-1.00 [facility] Comment on above: Result Comment: For patients on eltrombopag therapy, use of Dimension [place] TBIL is not recommended. Performed By: #### L 100.0100, L500.4050 ####[facility] [address] [place], [address] BUN/CRE 42.4 RATIO High 10-20 [facility] Comment on above: Performed By: #### L 100.0100, L500.4050 ####[facility] [address] [place], [address] CA,Total 10.1 mg/dL Normal 8.5-10.1 [facility] Comment on above: Performed By: #### L 100.0100, L500.4050 ####[facility] [address] [place], [address] Chloride [Moles/Vol] 103 mmol/L Normal 98-107 [facility] Comment on above: Performed By: #### L 100.0100, L500.4050 ####[facility] [address] [place], [address] CO2 [Moles/Vol] 28.0 mmol/L Normal 21.0-32.0 [facility] Comment on above: Performed By: #### L 100.0100, L500.4050 ####[facility] [address] [place], [address] Creatinine [Mass/Vol] 0.54 mg/dL Low 0.55-1.02 [facility] Comment on above: Result Comment: The validity of the calculated GFR GFRAA in patients over 70 years has not been determined. Clinical correlation is essential. Performed By: #### L 100.0100, L500.4050 ####[facility] [address] [place], [address] ECRCL 94.50 ml/min Normal [facility] Comment on above: Performed By: #### L 100.0100, L500.4050 ####[facility] [address] [place], [address] EST GFR - AA 156 mL/min Normal >60 [facility] Comment on above: Result Comment: Afri can Macedonian GFR Calc Performed By: #### L 100.0100, L500.4050 ####[facility] [address] [place], [address] GAP 7 Normal 5-15 [facility] Comment on above: Performed By: #### L 100.0100, L500.4050 ####[facility] [address] [place], [address] GFR/1.73 sq M.predicted among non-blacks MDRD (S/P/Bld) [Vol rate/Area] 129 mL/min/{1.73_m2} Normal >60 [facility] Comment on above: Result Comment: Non- GFR Calc Performed By: #### L 100.0100, L500.4050 ####[facility] [address] [place], [address] Globulin (S) [Mass/Vol] 3.6 g/dL Normal 2.2-4.2 [facility] Comment on above: Performed By: #### L 100.0100, L500.4050 ####[facility] [address] [place], [address] Glucose [Mass/Vol] 105 mg/dL Normal 74-106 [facility] Comment on above: Result Comment: Fast ing Glucose result from 100 to 125 mg/dL suggests IMPAIRED HOMEOSTASIS per A.D.A. criteria. Performed By: #### L 100.0100, L500.4050 ####[facility] [address] [place], [address] Potassium [Moles/Vol] 3.9 mmol/L Normal 3.5-5.1 [facility] Comment on above: Performed By: #### L 100.0100, L500.4050 ####[facility] [address] [place], [address] Sodium [Moles/Vol] 138 mmol/L Normal 136-145 [facility] Comment on above: Performed By: #### L 100.0100, L500.4050 ####[facility] [address] [place], [address] T PROT 7.3 g/dL Normal 6.4-8.2 [facility] Comment on above: Performed By: #### L 100.0100, L500.4050 ####[facility] [address] [place], [address] Urea nitrogen [Mass/Vol] 23 mg/dL High 7-18 [facility] Comment on above: Performed By: #### L 100.0100, L500.4050 ####[facility] [address] [place], [address] Oncology Visit Reporton 12-27 Oncology Visit Report [facility] [place] [address] OFFICE VISIT Date of Service: 01/23/24 1600 MR#: [id number] Acct: [id number] Name: BERE ESPOSITO Rep #: [id number] : 1980 From: Theodore Perez MD Age/Sex: 43/F Location[place] [facility] [place] Status: Signed HPI Subjective Date of Service 01/23/24 Chief Complaint Breast cancer on treatment History of Present Illness 42-year-old female with past medical history notable for muscle dystrophy who presented after an abnormal screening mammogram. January 11, 2022 screening mammogram: IMPRESSION: 2 cm irregular urinary density mass with microcalcifications in the upper inner quadrant of the left breast and focal compression views are recommended for further evaluation January 13, 2022 left diagnostic mammogram: IMPRESSION: Persistent soft tissue density with calcifications as described.??? Biopsy recommended. ASSESSMENT CATEGORY: BIRADS Category 4:??? Suspicious. January 18, 2022 Left breast, 11 o???clock, 5 cm, core biopsy: Invasive ductal carcinoma, nuclear grade 2-3 (1.2 cm in greatest length). ANTIBODY / CLONE RESULT E-Cad (ECH-6) positive CK8 (34khumK21) positive Calponin-1 (FC749E) negative CK5-6 (D5 1684) negative P40 (BC28) negative P53 (DO-7) positive, 10% Ki-67 (30-9) positive, 40% MORPHOMETRIC ANALYSIS ER (clone 6F11) >95%, moderate intensity MO (clone 16/1E2) >95%, strong intensity Her-2Neu (clone CB11) 3+ February 02, 2022 breast MRI: IMPRESSION: Irregular enhancing mass in the left breast compatible with the known left breast carcinoma. Two lymph nodes in the left axilla which have no convincing MRI evidence of involvement. ??? February 07, 2022 Left axillary lymph node, biopsy: Lymph node tissue positive for metastatic carcinoma February 22, 2022 PET/CT initial staging: IMPRESSION: 1.??? ABNORMAL EXAMINATION.??? Left breast spiculated nodule meets criteria for viable neoplasm.??? No evidence of metastasis. March 22, 2022 chest CTA: ER visit with dyspnea: IMPRESSION: Multiple tiny nodules in both lungs with increased interstitial markings more prominent at the lung bases.??? Pulmonary metastases with possible lymphangitic spread should be ruled out. Bibasilar atelectasis more prominent on the right side with small right pleural effusion. Marked degree of dextroscoliosis with prior fusion. March 26, 2022 CTA: ER visit with dyspnea: CONCLUSION: Streak artifact.??? No pulmonary emboli identified. Clear lungs.??? The interstitial changes and multiple nodules present on the prior exam have resolved. Small right pleural effusion present on the prior study has resolved. June 08, 2022: CT chest: Preop to follow-up on previously noted lung nodules. IMPRESSION: Small right pleural effusion with right basilar atelectasis. Small pericardial effusion. June 27, 2022 Left breast, mastectomy and axillary node dissection: Negative for residual invasive carcinoma. Six out of six lymph nodes, negative for metastatic carcinoma. Fibrocystic changes, adenosis and intraductal hyperplasia with focal atypia. Frequent microcalcifications. Focal changes consistent with previous biopsy site. COMMENT BREAST CANCER SUMMARY (including previous biopsy specimen [id number]) Procedure ??? total mastectomy (mastectomy and left axillary node dissection) Specimen laterality - left Tumor site ??? as per previous biopsy specimen, 11 o???clock, 5 cm from nipple. Tumor size ??? no residual invasive carcinoma. Histologic type ??? previous biopsy specimen, invasive ductal carcinoma. Histologic grade (Lin[place] grade): Previous biopsy specimen [id number]) Glandular/tubular differentiation score - 3 Nuclear pleomorphism score - 3 Mitotic count score - 1 No residual carcinoma. Ductal carcinoma in situ ??? not seen Lobular carcinoma in situ ??? not seen Tumor extension: Skin ??? skin is present and uninvolved. Nipple ??? ductal carcinoma in situ does not involve nipple epidermis. Skeletal muscle ??? skeletal muscle is present and dissection tissue is free of tumor. Margins: Invasive carcinoma margin ??? cannot be assessed as no invasive carcinoma is noted. Regional lymph nodes: Total number of lymph nodes examined - 6 Number of lymph nodes with macrometastases, micrometastases or isolated tumor cells - 0 Treatment effect in the breast ??? definite response to presurgical therapy in invasive carcinoma. Treatment effect in lymph nodes ??? no lymph node metastasis and no fibrous scarring in the lymph node is noted. Lymphvascular invasion ??? not identified Dermal lymphvascular invasion - not identified Distant metastasis ??? not applicable Additional Pathologic Findings ??? fibrocystic changes, adenosis and intraductal hyperplasia with focal atypia. Ancillary Studies: P (more content not included)... Normal [facility] SCREEN MAMM (CAD) W/FAISAL UNI Wilver 01-17-2024 SCREEN MAMM (CAD) W/FAISAL UNI R [facility] Imaging Services [address] [place], [place] [address] SCREEN MAMM (CAD) W/FAISAL UNI R MR#: [id number] Acct: [id number] Name: BERE ESPOSITO Rep #: [id number] : 1980 F 43 From: Michael bradley MD PCP: Dr. Jam Verde MD Status: [facility] Study: SCREEN MAMM (CAD) W/FAISAL UNI R Date of Exam: 0 01/17/24 Exam# [id number] Ordering Dr: Chelsea Hernandez NP DIRECTOR RECREATION -C [id number] MAMMOGRAPHY - UNILATERAL SCREENING: RIGHT BREAST REASON FOR EXAM: Female, 43 years old. Routine annual screening examination (unilateral). PERTINENT HISTORY: Personal history of breast cancer. Prior left mastectomy with chemotherapy and radiation therapy. TECHNIQUE: Digital unilateral breast faisal (3D mammographic acquisition) in the CC and MLO projections. 2-D mediolateral oblique (MLO) and craniocaudad (CC) views of both breasts were obtained. CAD: Full Field Digital Mammography with Computer Added Detection was performed. COMPARISON: Comparison is made with prior study dated January 15, 2023 and August 17, 2022. FINDINGS: Breast Composition: There are scattered areas of fibroglandular density. There are no dominant masses or suspicious calcifications. No other significant abnormalities are identified. There has been no significant change since the prior study. BI/SCREEN MAMM (CAD) W/FAISAL UNI R IMPRESSION: Stable unilateral screening mammogram. Yearly follow-up mammogram recommended. (A) ASSESSMENT CATEGORY: BIRADS Category 1: Negative. A letter regarding these results will be sent to the patient by the facility within 30 days. Approximately 10% of breast cancers are not detected by mammography. A normal mammogram should not delay biopsy of a clinically suspicious abnormality. [id number] Electronically Signed: Michael Bal MD at 15:00 EDT , CC: NGOZI Hernandez; Dr. 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: Signed Normal [facility] Laboratory - Chemistry and C hemistry - challengeOrdered By: Theodore Perez on 07-16-2023 Magnesium [Mass/Vol] 1.7 mg/dL 1.6-2.6 [facility] Absolute lymphocyte countOrd ered By: Theodore Perez on 04-16-2023 Lymphocytes Auto (Unsp spec) [#/Vol] 1.02 10*3/uL 0.83-4.51 [facility] Basophil percentageOrdered B y: Theodore Perez on 04-16-2023 Basophils/100 WBC (Bld) 0.4 % 0-[address] [facility] Bilirubin [Mass/Vol] 0.30 mg/dL 0.20-1.00 [facility] Comment on above: For patients on eltr ombopag therapy, use of Dimension [place] TBIL is not recommended. Chloride [Moles/Vol] 104 mmol/L 98-107 [facility] Eosinophils/100 WBC (Bld) 0.8 % 0-5 [facility] Glucose [Mass/Vol] 156 mg/dL 74-106 [facility] Comment on above: Fasting Glucose resu lt greater than or equal to 126 mg/dL suggests DIABETES MELLITUS per A.D.A. criteria. Neutrophils (Bld) [#/Vol] 5.7 10*3/uL 2.0-7.7 [facility] Neutrophils/100 WBC (Bld) 78.7 % 47-70 [facility] Potassium [Moles/Vol] 3.8 mmol/L 3.5-5.1 [facility] Protein [Mass/Vol] 7.2 g/dL 6.4-8.2 [facility] Sodium [Moles/Vol] 139 mmol/L 136-145 [facility] WBC (Bld) [#/Vol] 7.3 10*3/uL 4.4-11.0 [facility] Blood erythrocytes count (nu mber/volume)Ordered By: Theodore Perez on 04-16-2023 RBC (Bld) [#/Vol] 4.37 10*6/uL 4.2-5.4 [facility] Blood hemoglobin measurement (mass/volume)Ordered By: Theodore Perez on 04-16-2023 Hemoglobin (Bld) [Mass/Vol] 13.5 g/dL 12.0-15.0 [facility] Blood lymphocytes/100 leukoc ytesOrdered By: Theodore Perez on 04-16-2023 Lymphocytes/100 WBC (Bld) 14.0 % 19-41 [facility] Blood monocytes/100 leukocyt esOrdered By: Theodore Perez on 04-16-2023 Monocytes/100 WBC (Bld) 5.8 % 0-[address] [facility] Blood platelet mean volumeOr dered By: Theodore Perez on 04-16-2023 Platelet mean volume (Bld) [Entitic vol] 8.7 fL 6.2-12.0 [facility] Determination of erythrocyte mean corpuscular volume (MCV)Ordered By: Theodore Perez on 04-16-2023 MCV (RBC) [Entitic vol] 91.1 fL 81-[address] [facility] Hematocrit Auto (Bld) [Volum e fraction]Ordered By: Theodore Perez on 04-16-2023 Hematocrit (Bld) [Volume fraction] 39.8 % 37-47 [facility] Laboratory - Chemistry and C hemistry - challengeOrdered By: Theodore Perez on 04-16-2023 ALP [Catalytic activity/Vol] 95 U/L 45-117 [facility] ALT [Catalytic activity/Vol] 16 U/L 13-56 [facility] CO2 [Moles/Vol] 27.0 mmol/L 21.0-32.0 [facility] Globulin (S) [Mass/Vol] 3.5 g/dL 2.2-4.[address] [facility] Urea nitrogen/Creatinine [Mass ratio] 30.7 mg/mg 10-20 [facility] Laboratory - Hematology and Cell countsOrdered By: Theodore Perez on 04-16-2023 Erythrocyte distribution width (RBC) [Entitic vol] 43.7 fL 35.1-43.9 [facility] Erythrocyte distribution width (RBC) [Ratio] 13.2 % 11.6-14.6 [facility] Immature granulocytes/100 WBC (Bld) 0.300 % 0.0-0.9 [facility] Comment on above: IG% - Immature Granu locytes (promyelocytes, myelocytes and metamyelocytes) > 1% indicates that a LEFT SHIFT is Present. MCH (RBC) [Entitic mass] 30.9 pg 27.0-32.0 [facility] Nucleated RBC/100 WBC (Bld) [Ratio] 0 % 0-5 [facility] MCHC Auto (RBC) [Mass/Vol]Or dered By: Theodore Perez on 04-16-2023 MCHC (RBC) [Mass/Vol] 33.9 g/dL 32-36 [facility] No Panel InformationOrdered By: Theodore Perez on 04-16-2023 Estimated Creatinine Clearance Calc 98.12 ml/min [facility] Estimated GFR (MDRD) Amer 164 mL/min >60 [facility] Comment on above: GFR Calc Estimated GFR (MDRD) Non-Af Amer 136 mL/min >60 [facility] Comment on above: Non- GFR Calc Platelets bldOrdered By: Garett Perez on 04-16-2023 Platelets (Bld) [#/Vol] 320 10*3/uL 150-450 [facility] Serum or plasma albumin marilin urement (mass/volume)Ordered By: Theodore Perez on 04-16-2023 Albumin [Mass/Vol] 3.7 g/dL 3.2-5.0 [facility] Serum or plasma albumin/glob ulin mass ratioOrdered By: Theodore Perez on 04-16-2023 Albumin/Globulin [Mass ratio] 1.1 {ratio} 0.9-2.4 [facility] Serum or plasma calcium marilin urement (mass/volume)Ordered By: Theodore Perez on 04-16-2023 Calcium [Mass/Vol] 9.2 mg/dL 8.5-10.1 [facility] Serum or plasma creatinine m easurement (mass/volume)Ordered By: Theodore Perez on 04-16-2023 Creatinine [Mass/Vol] 0.52 mg/dL 0.55-1.02 [facility] Comment on above: The validity of the calculated GFR & GFRAA in patients over 70 years has not been determined. Clinical correlation is essential. Serum or plasma urea nitroge n measurement (mass/volume)Ordered By: Theodore Perez on 04-16-2023 Urea nitrogen [Mass/Vol] 16 mg/dL 7-18 [facility] Thin prep Papanicolaou smear with manual screeningOrdered By: [facility] 04-16-2023 Thin prep Papanicolaou smear with manual screening 16 U/L 15-37 [facility] Thin prep Papanicolaou smear with manual screening 8 5-15 [facility] Absolute lymphocyte countOrd ered By: Theodore Perez on 02-12-2023 Lymphocytes Auto (Unsp spec) [#/Vol] 1.02 10*3/uL 0.83-4.51 [facility] Basophil percentageOrdered B y: Theodore Perez on 02-12-2023 Basophils/100 WBC (Bld) 0.3 % 0-[address] [facility] Bilirubin [Mass/Vol] 0.40 mg/dL 0.20-1.00 [facility] Comment on above: For patients on eltr ombopag therapy, use of Dimension [place] TBIL is not recommended. Chloride [Moles/Vol] 100 mmol/L 98-107 [facility] Eosinophils/100 WBC (Bld) 0.7 % 0-5 [facility] Glucose [Mass/Vol] 115 mg/dL 74-106 [facility] Comment on above: Fasting Glucose resu lt from 100 to 125 mg/dL suggests IMPAIRED HOMEOSTASIS per A.D.A. criteria. Neutrophils (Bld) [#/Vol] 7.4 10*3/uL 2.0-7.7 [facility] Neutrophils/100 WBC (Bld) 81.4 % 47-70 [facility] Potassium [Moles/Vol] 3.8 mmol/L 3.5-5.1 [facility] Protein [Mass/Vol] 7.6 g/dL 6.4-8.2 [facility] Sodium [Moles/Vol] 137 mmol/L 136-145 [facility] WBC (Bld) [#/Vol] 9.1 10*3/uL 4.4-11.0 [facility] Blood erythrocytes count (nu mber/volume)Ordered By: Theodore Perez on 02-12-2023 RBC (Bld) [#/Vol] 4.39 10*6/uL 4.2-5.4 [facility] Blood hemoglobin measurement (mass/volume)Ordered By: Theodore Perez on 02-12-2023 Hemoglobin (Bld) [Mass/Vol] 13.7 g/dL 12.0-15.0 [facility] Blood lymphocytes/100 leukoc ytesOrdered By: Theodore Perez on 02-12-2023 Lymphocytes/100 WBC (Bld) 11.2 % 19-41 [facility] Blood monocytes/100 leukocyt esOrdered By: Theodore Perez on 02-12-2023 Monocytes/100 WBC (Bld) 6.0 % 0-[address] [facility] Blood platelet mean volumeOr dered By: Theodore Perez on 02-12-2023 Platelet mean volume (Bld) [Entitic vol] 8.6 fL 6.2-12.0 [facility] Determination of erythrocyte mean corpuscular volume (MCV)Ordered By: Theodore Perez on 02-12-2023 MCV (RBC) [Entitic vol] 92.0 fL 81-[address] [facility] Hematocrit Auto (Bld) [Volum e fraction]Ordered By: Theodore Perez on 02-12-2023 Hematocrit (Bld) [Volume fraction] 40.4 % 37-47 [facility] Laboratory - Chemistry and C hemistry - challengeOrdered By: Theodore Perez on 02-12-2023 ALP [Catalytic activity/Vol] 104 U/L 45-117 [facility] ALT [Catalytic activity/Vol] 17 U/L 13-56 [facility] CO2 [Moles/Vol] 29.0 mmol/L 21.0-32.0 [facility] Globulin (S) [Mass/Vol] 3.7 g/dL 2.2-4.[address] [facility] Urea nitrogen/Creatinine [Mass ratio] 32.5 mg/mg 10-20 [facility] Laboratory - Hematology and Cell countsOrdered By: Theodore Perez on 02-12-2023 Erythrocyte distribution width (RBC) [Entitic vol] 41.3 fL 35.1-43.9 [facility] Erythrocyte distribution width (RBC) [Ratio] 12.3 % 11.6-14.6 [facility] Immature granulocytes/100 WBC (Bld) 0.400 % 0.0-0.9 [facility] Comment on above: IG% - Immature Granu locytes (promyelocytes, myelocytes and metamyelocytes) > 1% indicates that a LEFT SHIFT is Present. MCH (RBC) [Entitic mass] 31.2 pg 27.0-32.0 [facility] Nucleated RBC/100 WBC (Bld) [Ratio] 0 % 0-5 [facility] MCHC Auto (RBC) [Mass/Vol]Or dered By: Theodore Perez on 02-12-2023 MCHC (RBC) [Mass/Vol] 33.9 g/dL 32-36 [facility] No Panel InformationOrdered By: Theodore Perez on 02-12-2023 Estimated Creatinine Clearance Calc 98.24 ml/min [facility] Estimated GFR (MDRD) Amer 163 mL/min >60 [facility] Comment on above: GFR Calc Estimated GFR (MDRD) Non-Af Amer 135 mL/min >60 [facility] Comment on above: Non- GFR Calc Platelets bldOrdered By: Garett Perez on 02-12-2023 Platelets (Bld) [#/Vol] 370 10*3/uL 150-450 [facility] Serum or plasma albumin marilin urement (mass/volume)Ordered By: Theodore Ana on 02-12-2023 Albumin [Mass/Vol] 3.9 g/dL 3.2-5.0 [facility] Serum or plasma albumin/glob ulin mass ratioOrdered By: Theodore Ana on 02-12-2023 Albumin/Globulin [Mass ratio] 1.1 {ratio} 0.9-2.4 [facility] Serum or plasma calcium marilin urement (mass/volume)Ordered By: Kalyanjennifer Perez on 02-12-2023 Calcium [Mass/Vol] 9.7 mg/dL 8.5-10.1 [facility] Serum or plasma creatinine m easurement (mass/volume)Ordered By: Theodore Ana on 02-12-2023 Creatinine [Mass/Vol] 0.52 mg/dL 0.55-1.02 [facility] Comment on above: The validity of the calculated GFR & GFRAA in patients over 70 years has not been determined. Clinical correlation is essential. Serum or plasma urea nitroge n measurement (mass/volume)Ordered By: Theodore Ana on 02-12-2023 Urea nitrogen [Mass/Vol] 17 mg/dL 7-18 [facility] Thin prep Papanicolaou smear with manual screeningOrdered By: [facility] on 02-12-2023 Thin prep Papanicolaou smear with manual screening 16 U/L 15-37 [facility] Thin prep Papanicolaou smear with manual screening 8 5-15 [facility] Absolute lymphocyte countOrd ered By: Kalyanjennifer Perez on 01-01-2023 Lymphocytes Auto (Unsp spec) [#/Vol] 0.65 10*3/uL 0.83-4.51 [facility] Basophil percentageOrdered B y: Theodore Perez on 01-01-2023 Basophils/100 WBC (Bld) 0.5 % 0-[address] [facility] Bilirubin [Mass/Vol] 0.50 mg/dL 0.20-1.00 [facility] Comment on above: For patients on eltr ombopag therapy, use of Dimension [place] TBIL is not recommended. Chloride [Moles/Vol] 102 mmol/L 98-107 [facility] Eosinophils/100 WBC (Bld) 1.5 % 0-5 [facility] Glucose [Mass/Vol] 114 mg/dL 74-106 [facility] Comment on above: Fasting Glucose resu lt from 100 to 125 mg/dL suggests IMPAIRED HOMEOSTASIS per A.D.A. criteria. Neutrophils (Bld) [#/Vol] 6.0 10*3/uL 2.0-7.7 [facility] Neutrophils/100 WBC (Bld) 81.4 % 47-70 [facility] Potassium [Moles/Vol] 3.7 mmol/L 3.5-5.1 [facility] Protein [Mass/Vol] 7.1 g/dL 6.4-8.2 [facility] Sodium [Moles/Vol] 136 mmol/L 136-145 [facility] WBC (Bld) [#/Vol] 7.3 10*3/uL 4.4-11.0 [facility] Blood erythrocytes count (nu mber/volume)Ordered By: Theodore Perez on 01-01-2023 RBC (Bld) [#/Vol] 3.93 10*6/uL 4.2-5.4 [facility] Blood hemoglobin measurement (mass/volume)Ordered By: Theodore Perez on 01-01-2023 Hemoglobin (Bld) [Mass/Vol] 12.7 g/dL 12.0-15.0 [facility] Blood lymphocytes/100 leukoc ytesOrdered By: Thedoore Perez on 01-01-2023 Lymphocytes/100 WBC (Bld) 8.9 % 19-41 [facility] Blood monocytes/100 leukocyt esOrdered By: Theodore Perez on 01-01-2023 Monocytes/100 WBC (Bld) 7.4 % 0-10 [facility] Blood platelet mean volumeOr dered By: Theodore Perez on 01-01-2023 Platelet mean volume (Bld) [Entitic vol] 8.3 fL 6.2-12.0 [facility] Determination of erythrocyte mean corpuscular volume (MCV)Ordered By: Theodore Perez on 01-01-2023 MCV (RBC) [Entitic vol] 90.6 fL 81-[address] [facility] Hematocrit Auto (Bld) [Volum e fraction]Ordered By: Theodore Perez on 01-01-2023 Hematocrit (Bld) [Volume fraction] 35.6 % 37-47 [facility] Laboratory - Chemistry and C hemistry - challengeOrdered By: [facility] on 01-01-2023 ALP [Catalytic activity/Vol] 93 U/L 45-117 [facility] ALT [Catalytic activity/Vol] 14 U/L 13-56 [facility] CO2 [Moles/Vol] 28.0 mmol/L 21.0-32.0 [facility] Globulin (S) [Mass/Vol] 3.5 g/dL 2.2-4.[address] [facility] Urea nitrogen/Creatinine [Mass ratio] 30.9 mg/mg 10-20 [facility] Laboratory - Hematology and Cell countsOrdered By: [facility] Ana on 01-01-2023 Erythrocyte distribution width (RBC) [Entitic vol] 44.0 fL 35.1-43.9 [facility] Erythrocyte distribution width (RBC) [Ratio] 13.2 % 11.6-14.6 [facility] Immature granulocytes/100 WBC (Bld) 0.300 % 0.0-0.9 [facility] Comment on above: IG% - Immature Granu locytes (promyelocytes, myelocytes and metamyelocytes) > 1% indicates that a LEFT SHIFT is Present. MCH (RBC) [Entitic mass] 32.3 pg 27.0-32.0 [facility] Nucleated RBC/100 WBC (Bld) [Ratio] 0 % 0-5 [facility] MCHC Auto (RBC) [Mass/Vol]Or dered By: [facility] on 01-01-2023 MCHC (RBC) [Mass/Vol] 35.7 g/dL 32-36 [facility] No Panel InformationOrdered By: Theodore Perez on 01-01-2023 Estimated Creatinine Clearance Calc 94.41 ml/min [facility] Estimated GFR (MDRD) Amer 165 mL/min >60 [facility] Comment on above: GFR Calc Estimated GFR (MDRD) Non-Af Amer 137 mL/min >60 [facility] Comment on above: Non- GFR Calc Platelets bldOrdered By: Garett guillermo Ana on 01-01-2023 Platelets (Bld) [#/Vol] 325 10*3/uL 150-450 [facility] Serum or plasma albumin marilin urement (mass/volume)Ordered By: Theodore Perez on 01-01-2023 Albumin [Mass/Vol] 3.6 g/dL 3.2-5.0 [facility] Serum or plasma albumin/glob ulin mass ratioOrdered By: [facility] on 01-01-2023 Albumin/Globulin [Mass ratio] 1.0 {ratio} 0.9-2.4 [facility] Serum or plasma calcium marilin urement (mass/volume)Ordered By: Theodore Perez on 01-01-2023 Calcium [Mass/Vol] 9.4 mg/dL 8.5-10.1 [facility] Serum or plasma creatinine m easurement (mass/volume)Ordered By: Theodore Perez on 01-01-2023 Creatinine [Mass/Vol] 0.52 mg/dL 0.55-1.02 [facility] Comment on above: The validity of the calculated GFR & GFRAA in patients over 70 years has not been determined. Clinical correlation is essential. Serum or plasma urea nitroge n measurement (mass/volume)Ordered By: Theodore Perez on 01-01-2023 Urea nitrogen [Mass/Vol] 16 mg/dL 7-18 [facility] Thin prep Papanicolaou smear with manual screeningOrdered By: Theodore Perez on 01-01-2023 Thin prep Papanicolaou smear with manual screening 17 U/L 15-37 [facility] Thin prep Papanicolaou smear with manual screening 6 5-15 [facility] Basophil percentageOrdered B y: Theodore Perez on 11-20-2022 Bilirubin [Mass/Vol] 0.30 mg/dL 0.20-1.00 [facility] Comment on above: For patients on eltr ombopag therapy, use of Dimension [place] TBIL is not recommended. Chloride [Moles/Vol] 104 mmol/L 98-107 [facility] Glucose [Mass/Vol] 129 mg/dL 74-106 [facility] Comment on above: Fasting Glucose resu lt greater than or equal to 126 mg/dL suggests DIABETES MELLITUS per A.D.A. criteria. Potassium [Moles/Vol] 3.5 mmol/L 3.5-5.1 [facility] Protein [Mass/Vol] 7.2 g/dL 6.4-8.2 [facility] Sodium [Moles/Vol] 137 mmol/L 136-145 [facility] WBC (Bld) [#/Vol] 6.8 10*3/uL 4.4-11.0 [facility] Blood erythrocytes count (nu mber/volume)Ordered By: Theodore Perez on 11-20-2022 RBC (Bld) [#/Vol] 4.11 10*6/uL 4.2-5.4 [facility] Blood hemoglobin measurement (mass/volume)Ordered By: Theodore Perez on 11-20-2022 Hemoglobin (Bld) [Mass/Vol] 12.5 g/dL 12.0-15.0 [facility] Blood platelet mean volumeOr dered By: [facility] on 11-20-2022 Platelet mean volume (Bld) [Entitic vol] 8.7 fL 6.2-12.0 [facility] Determination of erythrocyte mean corpuscular volume (MCV)Ordered By: Theodore Perez on 11-20-2022 MCV (RBC) [Entitic vol] 91.0 fL 81-99 [facility] Hematocrit Auto (Bld) [Volum e fraction]Ordered By: Theodore Perez on 11-20-2022 Hematocrit (Bld) [Volume fraction] 37.4 % 37-47 [facility] Laboratory - Chemistry and C hemistry - challengeOrdered By: [facility] on 11-20-2022 ALP [Catalytic activity/Vol] 100 U/L 45-117 [facility] ALT [Catalytic activity/Vol] 13 U/L 13-56 [facility] CO2 [Moles/Vol] 28.0 mmol/L 21.0-32.0 [facility] Globulin (S) [Mass/Vol] 3.5 g/dL 2.2-4.[address] [facility] Urea nitrogen/Creatinine [Mass ratio] 37.8 mg/mg 10-20 [facility] Laboratory - Hematology and Cell countsOrdered By: Theodore Perez on 11-20-2022 Erythrocyte distribution width (RBC) [Entitic vol] 44.4 fL 35.1-43.9 [facility] Erythrocyte distribution width (RBC) [Ratio] 13.3 % 11.6-14.6 [facility] MCH (RBC) [Entitic mass] 30.4 pg 27.0-32.0 [facility] MCHC Auto (RBC) [Mass/Vol]Or dered By: Theodore Perez on 11-20-2022 MCHC (RBC) [Mass/Vol] 33.4 g/dL 32-36 [facility] No Panel InformationOrdered By: Theodore Perez on 11-20-2022 Estimated Creatinine Clearance Calc 92.53 ml/min [facility] Estimated GFR (MDRD) Amer 172 mL/min >60 [facility] Comment on above: GFR Calc Estimated GFR (MDRD) Non-Af Amer 142 mL/min >60 [facility] Comment on above: Non- GFR Calc Platelets bldOrdered By: Garett Perez on 11-20-2022 Platelets (Bld) [#/Vol] 319 10*3/uL 150-450 [facility] Serum or plasma albumin marilin urement (mass/volume)Ordered By: Theodore Perez on 11-20-2022 Albumin [Mass/Vol] 3.7 g/dL 3.2-5.0 [facility] Serum or plasma albumin/glob ulin mass ratioOrdered By: Theodore Perez on 11-20-2022 Albumin/Globulin [Mass ratio] 1.1 {ratio} 0.9-2.4 [facility] Serum or plasma calcium marilin urement (mass/volume)Ordered By: Theodore Perez on 11-20-2022 Calcium [Mass/Vol] 9.7 mg/dL 8.5-10.1 [facility] Serum or plasma creatinine m easurement (mass/volume)Ordered By: Theodore Perez on 11-20-2022 Creatinine [Mass/Vol] 0.50 mg/dL 0.55-1.02 [facility] Comment on above: The validity of the calculated GFR & GFRAA in patients over 70 years has not been determined. Clinical correlation is essential. Serum or plasma urea nitroge n measurement (mass/volume)Ordered By: Theodore Perez on 11-20-2022 Urea nitrogen [Mass/Vol] 19 mg/dL 7-18 [facility] Thin prep Papanicolaou smear with manual screeningOrdered By: Theodore Perez on 11-20-2022 Thin prep Papanicolaou smear with manual screening 14 U/L 15-37 [facility] Thin prep Papanicolaou smear with manual screening 5 5-15 [facility] Absolute lymphocyte countOrd ered By: Chelsea Hernandez on 10-30-2022 Lymphocytes Auto (Unsp spec) [#/Vol] 0.57 10*3/uL 0.83-4.51 [facility] Basophil percentageOrdered B y: Chelsea Hernandez on 10-30-2022 Basophils/100 WBC (Bld) 0.5 % 0-1 [facility] Chloride [Moles/Vol] 106 mmol/L 98-107 [facility] [facility] Eosin[facility]/100 WBC (Bld) 2.0 % 0-5 [facility] Glucose [Mass/Vol] 105 mg/dL 74-106 [facility] Comment on above: Fasting Glucose resu lt from 100 to 125 mg/dL suggests IMPAIRED HOMEOSTASIS per A.D.A. criteria. Neutrophils (Bld) [#/Vol] 5.8 10*3/uL 2.0-7.7 [facility] Neutrophils/100 WBC (Bld) 78.3 % 47-70 [facility] Potassium [Moles/Vol] 5.4 mmol/L 3.5-5.1 [facility] Sodium [Moles/Vol] 137 mmol/L 136-145 [facility] WBC (Bld) [#/Vol] 7.4 10*3/uL 4.4-11.0 [facility] Blood erythrocytes count (nu mber/volume)Ordered By: Chelsea Hernandez on 10-30-2022 RBC (Bld) [#/Vol] 3.98 10*6/uL 4.2-5.4 [facility] Blood hemoglobin measurement (mass/volume)Ordered By: Chelsea Hernandez on 10-30-2022 Hemoglobin (Bld) [Mass/Vol] 12.2 g/dL 12.0-15.0 [facility] Blood lymphocytes/100 leukoc ytesOrdered By: Chelsea Hernandez on 10-30-2022 Lymphocytes/100 WBC (Bld) 7.7 % 19-41 [facility] Blood manual differential co mment interpretation (narrative result)Ordered By: Chelsea Hernandez on 10-30-2022 Manual differential comment Erwin (Bld) [Interp] COMMENT [facility] Comment on above: LYMPHOPENIA. Blood monocytes/100 leukocyt esOrdered By: Chelsea Hernandez on 10-30-2022 Monocytes/100 WBC (Bld) 11.2 % 0-[address] [facility] Blood platelet mean volumeOr dered By: Chelsea Hernandez on 10-30-2022 Platelet mean volume (Bld) [Entitic vol] 8.5 fL 6.2-12.0 [facility] Determination of erythrocyte mean corpuscular volume (MCV)Ordered By: Chelsea Hernandez on 10-30-2022 MCV (RBC) [Entitic vol] 91.7 fL 81-[address] [facility] Hematocrit Auto (Bld) [Volum e fraction]Ordered By: Chelsea Hernandez on 10-30-2022 Hematocrit (Bld) [Volume fraction] 36.5 % 37-47 [facility] Laboratory - Chemistry and C hemistry - challengeOrdered By: Chelsea Hernandez on 10-30-2022 CO2 [Moles/Vol] 26.0 mmol/L 21.0-32.0 [facility] Urea nitrogen/Creatinine [Mass ratio] 49.6 mg/mg 10-20 [facility] Laboratory - Hematology and Cell countsOrdered By: Chelsea Hernandez on 10-30-2022 Erythrocyte distribution width (RBC) [Entitic vol] 43.5 fL 35.1-43.9 [facility] Erythrocyte distribution width (RBC) [Ratio] 13.1 % 11.6-14.6 [facility] Immature granulocytes/100 WBC (Bld) 0.300 % 0.0-0.9 [facility] Comment on above: IG% - Immature Granu locytes (promyelocytes, myelocytes and metamyelocytes) > 1% indicates that a LEFT SHIFT is Present. MCH (RBC) [Entitic mass] 30.7 pg 27.0-32.0 [facility] Nucleated RBC/100 WBC (Bld) [Ratio] 0 % 0-5 [facility] MCHC Auto (RBC) [Mass/Vol]Or dered By: Chelsea Hernandez on 10-30-2022 MCHC (RBC) [Mass/Vol] 33.4 g/dL 32-36 [facility] No Panel InformationOrdered By: Chelsea Hernandez on 10-30-2022 Estimated Creatinine Clearance Calc 85.20 ml/min [facility] Estimated GFR (MDRD) Amer 156 mL/min >60 [facility] Comment on above: GFR Calc Estimated GFR (MDRD) Non-Af Amer 129 mL/min >60 [facility] Comment on above: Non- GFR Calc Platelets bldOrdered By: Jamir Hernandez on 10-30-2022 Platelets (Bld) [#/Vol] 297 10*3/uL 150-450 [facility] Serum or plasma calcium marilin urement (mass/volume)Ordered By: Chelsea Hernandez on 10-30-2022 Calcium [Mass/Vol] 9.3 mg/dL 8.5-10.1 [facility] Serum or plasma creatinine m easurement (mass/volume)Ordered By: Chelsea Hernandez on 10-30-2022 Creatinine [Mass/Vol] 0.54 mg/dL 0.55-1.02 [facility] Comment on above: The validity of the calculated GFR & GFRAA in patients over 70 years has not been determined. Clinical correlation is essential. Serum or plasma urea nitroge n measurement (mass/volume)Ordered By: Chelsea Hernandez on 10-30-2022 Urea nitrogen [Mass/Vol] 27 mg/dL 7-18 [facility] Thin prep Papanicolaou smear with manual screeningOrdered By: Chelsea Hernandez on 10-30-2022 Thin prep Papanicolaou smear with manual screening 5 5-15 [facility] Basophil percentageOrdered B y: Chelsea Hernandez on 10-09-2022 Bilirubin [Mass/Vol] 0.40 mg/dL 0.20-1.00 [facility] Comment on above: For patients on eltr ombopag therapy, use of Dimension [place] [place] TBIL is not recommended. Protein [Mass/Vol] 7.1 g/dL 6.4-8.2 [facility] Laboratory - Chemistry and C hemistry - challengeOrdered By: Chelsea Hernandez on 10-09-2022 ALP [Catalytic activity/Vol] 93 U/L 45-117 [facility] ALT [Catalytic activity/Vol] 15 U/L 13-56 [facility] Globulin (S) [Mass/Vol] 3.5 g/dL 2.2-4.2 [facility] Serum or plasma albumin marilin urement (mass/volume)Ordered By: Chelsea Hernandez on 10-09-2022 Albumin [Mass/Vol] 3.6 g/dL 3.2-5.0 [facility] Serum or plasma albumin/glob ulin mass ratioOrdered By: Chelsea Hernandez on 10-09-2022 Albumin/Globulin [Mass ratio] 1.0 {ratio} 0.9-2.4 [facility] Thin prep Papanicolaou smear with manual screeningOrdered By: Chelsea Hernandez on 10-09-2022 Thin prep Papanicolaou smear with manual screening 15 U/L 15-37 [facility] Laboratory - Chemistry and C hemistry - challengeOrdered By: Dr. Solitario on 08-17-2022 HCG ( test) Ql (U) Negative [facility] Comment on above: Very dilute urine sp ecimens, as indicated by a low specificgravity, may not contain outside sales account representative levels of hCG. If is still suspected, a first morning urinespecimen should be collected 48 hours later and tested. No Panel InformationOrdered By: Dr. Solitario on 08-17-2022 Negative [facility] Ova and parasitesOrdered By: Parth Byrd on 08-17-2022 Ova and parasites identified LM Nom (Unsp spec) [facility] Absolute lymphocyte countOrd ered By: Dr. Perez on 07-24-2022 Lymphocytes Auto (Unsp spec) [#/Vol] 1.49 10*3/uL 0.83-4.51 [facility] Basophil percentageOrdered B y: Dr. Perez on 07-24-2022 Basophil percentage 114 mg/dL 74-106 [facility] Basophil percentage 7.0 g/dL 6.4-8.2 [facility] Basophil percentage 0.20 mg/dL 0.20-1.00 [facility] Basophil percentage 136 mmol/L 136-145 [facility] Basophil percentage 4.5 mmol/L 3.5-5.1 [facility] Basophil percentage 103 mmol/L 98-107 [facility] Basophils (Bld) [#/Vol] 6.4 10*3/uL 4.4-11.0 [facility] Basophils (Bld) [#/Vol] 4.1 10*3/uL 2.0-7.7 [facility] Basophils/100 WBC (Bld) 64.4 % 47-[address] [facility] Basophils/100 WBC (Bld) 1.6 % 0-[address] [facility] Basophils/100 WBC (Bld) 0.8 % 0-[address] [facility] Blood erythrocytes count (nu mber/volume)Ordered By: Dr. Perez on 07-24-2022 RBC (Bld) [#/Vol] 3.41 10*6/uL 4.2-5.4 [facility] Blood hemoglobin measurement (mass/volume)Ordered By: Dr. Perez on 07-24-2022 Hemoglobin (Bld) [Mass/Vol] 10.5 g/dL 12.0-15.0 [facility] Blood lymphocytes/100 leukoc ytesOrdered By: Dr. Perez on 07-24-2022 Lymphocytes/100 WBC (Bld) 23.4 % 19-41 [facility] Blood monocytes/100 leukocyt esOrdered By: Dr. Perez on 07-24-2022 Monocytes/100 WBC (Bld) 9.6 % 0-[address] [facility] Blood platelet mean volumeOr dered By: Dr. Perez on 07-24-2022 Platelet mean volume (Bld) [Entitic vol] 8.8 fL 6.2-12.0 [facility] Determination of erythrocyte mean corpuscular volume (MCV)Ordered By: Dr. Perez on 07-24-2022 MCV (RBC) [Entitic vol] 96.2 fL 81-[address] [facility] Hematocrit Auto (Bld) [Volum e fraction]Ordered By: Dr. Perez on 07-24-2022 Hematocrit (Bld) [Volume fraction] 32.8 % 37-47 [facility] MCHC Auto (RBC) [Mass/Vol]Or dered By: Dr. Perez on 07-24-2022 MCHC (RBC) [Mass/Vol] 32.0 g/dL 32-36 [facility] No Panel InformationOrdered By: Dr. Perez on 07-24-2022 30.8 pg 27.0-32.0 [facility] 14.7 % 11.6-14.6 [facility] 52.3 fl 35.1-43.9 [facility] 0.200 % 0.0-0.9 [facility] 0 % 0-5 [facility] 147 mL/min >60 [facility] 178 mL/min >60 [facility] 88.25 ml/min [facility] 30.7 RATIO 10-20 [facility] 3.7 g/dL 2.2-4.2 [facility] 116 U/L 45-117 [facility] 21 U/L 13-56 [facility] 27.0 mmol/L 21.0-32.0 [facility] Platelets bldOrdered By: Dr. Perez on 07-24-2022 Platelets (Bld) [#/Vol] 461 10*3/uL 150-450 [facility] Serum or plasma albumin marilin urement (mass/volume)Ordered By: Dr. Perez on 07-24-2022 Albumin [Mass/Vol] 3.3 g/dL 3.2-5.0 [facility] Serum or plasma albumin/glob ulin mass ratioOrdered By: Dr. Perez on 07-24-2022 Albumin/Globulin [Mass ratio] 0.9 {ratio} 0.9-2.4 [facility] Serum or plasma calcium marilin urement (mass/volume)Ordered By: Dr. Perez on 07-24-2022 Calcium [Mass/Vol] 9.8 mg/dL 8.5-10.1 [facility] Serum or plasma creatinine m easurement (mass/volume)Ordered By: Dr. Perez on 07-24-2022 Creatinine [Mass/Vol] 0.49 mg/dL 0.55-1.02 [facility] Serum or plasma urea nitroge n measurement (mass/volume)Ordered By: Dr. Perez on 07-24-2022 Urea nitrogen [Mass/Vol] 15 mg/dL 7-18 [facility] Thin prep Papanicolaou smear with manual screeningOrdered By: Dr. Perez on 07-24-2022 Thin prep Papanicolaou smear with manual screening 13 U/L 15-37 [facility] Thin prep Papanicolaou smear with manual screening 6 5-15 [facility] Absolute lymphocyte countOrd ered By: Dr. Verde on 07-14-2022 Lymphocytes Auto (Unsp spec) [#/Vol] 1.86 10*3/uL 0.83-4.51 [facility] Basophil percentageOrdered B y: Dr. Verde on 07-14-2022 Basophil percentage 104 mg/dL 74-106 [facility] Basophil percentage 7.4 g/dL 6.4-8.2 [facility] Basophil percentage 0.20 mg/dL 0.20-1.00 [facility] Basophil percentage 136 mmol/L 136-145 [facility] Basophil percentage 3.7 mmol/L 3.5-5.1 [facility] Basophil percentage 102 mmol/L 98-107 [facility] Basophils (Bld) [#/Vol] 9.1 10*3/uL 4.4-11.0 [facility] Basophils (Bld) [#/Vol] 6.3 10*3/uL 2.0-7.7 [facility] Basophils/100 WBC (Bld) 69.3 % 47-[address] [facility] Basophils/100 WBC (Bld) 1.4 % 0-[address] [facility] Basophils/100 WBC (Bld) 0.9 % 0-[address] [facility] Blood erythrocytes count (nu mber/volume)Ordered By: Dr. Verde on 07-14-2022 RBC (Bld) [#/Vol] 3.76 10*6/uL 4.2-5.4 [facility] Blood hemoglobin measurement (mass/volume)Ordered By: Dr. Verde on 07-14-2022 Hemoglobin (Bld) [Mass/Vol] 11.7 g/dL 12.0-15.0 [facility] Blood lymphocytes/100 leukoc ytesOrdered By: Dr. Verde on 07-14-2022 Lymphocytes/100 WBC (Bld) 20.5 % 19-41 [facility] Blood monocytes/100 leukocyt esOrdered By: Dr. Verde on 07-14-2022 Monocytes/100 WBC (Bld) 7.6 % 0-10 [facility] Blood platelet mean volumeOr dered By: Dr. Verde on 07-14-2022 Platelet mean volume (Bld) [Entitic vol] 9.1 fL 6.2-12.0 [facility] Determination of erythrocyte mean corpuscular volume (MCV)Ordered By: Dr. Verde on 07-14-2022 MCV (RBC) [Entitic vol] 96.5 fL 81-[address] [facility] Hematocrit Auto (Bld) [Volum e fraction]Ordered By: Dr. Verde on 07-14-2022 Hematocrit (Bld) [Volume fraction] 36.3 % 37-47 [facility] MCHC Auto (RBC) [Mass/Vol]Or dered By: Dr. Verde on 07-14-2022 MCHC (RBC) [Mass/Vol] 32.2 g/dL 32-36 [facility] No Panel InformationOrdered By: Dr. Verde on 07-14-2022 31.1 pg 27.0-32.0 [facility] 16.0 % 11.6-14.6 [facility] 57.4 fl 35.1-43.9 [facility] 0.300 % 0.0-0.9 [facility] 0 % 0-5 [facility] 133 mL/min >60 [facility] 161 mL/min >60 [facility] 58.4 RATIO 10-20 [facility] 3.9 g/dL 2.2-4.2 [facility] 193 U/L 45-117 [facility] 89 U/L 13-56 [facility] 1.8 mg/dL 1.6-2.6 [facility] 23.0 mmol/L 21.0-32.0 [facility] Platelets bldOrdered By: Dr. Verde on 07-14-2022 Platelets (Bld) [#/Vol] 593 10*3/uL 150-450 [facility] Serum or plasma albumin marilin urement (mass/volume)Ordered By: Dr. Verde on 07-14-2022 Albumin [Mass/Vol] 3.5 g/dL 3.2-5.0 [facility] Serum or plasma albumin/glob ulin mass ratioOrdered By: Dr. Verde on 07-14-2022 Albumin/Globulin [Mass ratio] 0.9 {ratio} 0.9-2.4 [facility] Serum or plasma calcium marilin urement (mass/volume)Ordered By: Dr. Verde on 07-14-2022 Calcium [Mass/Vol] 10.0 mg/dL 8.5-10.1 [facility] Serum or plasma creatinine m easurement (mass/volume)Ordered By: Dr. Verde on 07-14-2022 Creatinine [Mass/Vol] 0.53 mg/dL 0.55-1.02 [facility] Serum or plasma transthyreti n measurement (mass/volume)Ordered By: Dr. Verde on 07-14-2022 Prealbumin [Mass/Vol] 41.6 mg/dL 20.0-40.0 [facility] Serum or plasma urea nitroge n measurement (mass/volume)Ordered By: Dr. Verde on 07-14-2022 Urea nitrogen [Mass/Vol] 31 mg/dL 7-18 [facility] Thin prep Papanicolaou smear with manual screeningOrdered By: Dr. Verde on 07-14-2022 Thin prep Papanicolaou smear with manual screening 57 U/L 15-37 [facility] Thin prep Papanicolaou smear with manual screening 11 5-15 [facility] Basophil percentageOrdered B y: Dr. Disla on 07-07-2022 Basophil percentage 108 mg/dL 74-106 [facility] Basophil percentage 138 mmol/L 136-145 [facility] Basophil percentage 3.9 mmol/L 3.5-5.1 [facility] Basophil percentage 111 mmol/L 98-107 [facility] Blood hemoglobin measurement (mass/volume)Ordered By: Dr. Disla on 07-07-2022 Hemoglobin (Bld) [Mass/Vol] 10.0 g/dL 12.0-15.0 [facility] Hematocrit Auto (Bld) [Volum e fraction]Ordered By: Dr. Disla on 07-07-2022 Hematocrit (Bld) [Volume fraction] 31.2 % 37-47 [facility] No Panel InformationOrdered By: Dr. Disla on 07-07-2022 209 mL/min >60 [facility] 253 mL/min >60 [facility] 135.19 ml/min [facility] 80.8 RATIO 10-20 [facility] 1.5 mg/dL 1.6-2.6 [facility] 18.0 mmol/L 21.0-32.0 [facility] Serum or plasma calcium marilin urement (mass/volume)Ordered By: Dr. Disla on 07-07-2022 Calcium [Mass/Vol] 9.8 mg/dL 8.5-10.1 [facility] Serum or plasma creatinine m easurement (mass/volume)Ordered By: Dr. Disla on 07-07-2022 Creatinine [Mass/Vol] 0.36 mg/dL 0.55-1.02 [facility] Serum or plasma urea nitroge n measurement (mass/volume)Ordered By: Dr. Disla on 07-07-2022 Urea nitrogen [Mass/Vol] 29 mg/dL 7-18 [facility] Thin prep Papanicolaou smear with manual screeningOrdered By: Dr. Disla on 07-07-2022 Thin prep Papanicolaou smear with manual screening 9 5-15 [facility] No Panel InformationOrdered By: Dr. Disla on 07-03-2022 43.1 ng/mL [facility] Absolute lymphocyte countOrd ered By: Dr. Disla on 07-01-2022 Lymphocytes Auto (Unsp spec) [#/Vol] 1.42 10*3/uL 0.83-4.51 [facility] Basophil percentageOrdered B y: Dr. Disla on 07-01-2022 Basophil percentage 7.3 g/dL 6.4-8.2 [facility] Basophil percentage 5.8 mg/dL 2.5-4.9 [facility] Basophil percentage 0.30 mg/dL 0.20-1.00 [facility] Basophils (Bld) [#/Vol] 11.5 10*3/uL 4.4-11.0 [facility] Basophils (Bld) [#/Vol] 8.8 10*3/uL 2.0-7.7 [facility] Basophils/100 WBC (Bld) 76.0 % 47-[address] [facility] Basophils/100 WBC (Bld) 3.1 % 0-[address] [facility] Basophils/100 WBC (Bld) 0.7 % 0-[address] [facility] Blood erythrocytes count (nu mber/volume)Ordered By: Dr. Disla on 07-01-2022 RBC (Bld) [#/Vol] 3.57 10*6/uL 4.2-5.4 [facility] Blood lymphocytes/100 leukoc ytesOrdered By: Dr. Disla on 07-01-2022 Lymphocytes/100 WBC (Bld) 12.3 % 19-41 [facility] Blood monocytes/100 leukocyt esOrdered By: Dr. Disla on 07-01-2022 Monocytes/100 WBC (Bld) 7.6 % 0-[address] [facility] Blood platelet mean volumeOr dered By: Dr. Disla on 07-01-2022 Platelet mean volume (Bld) [Entitic vol] 8.7 fL 6.2-12.0 [facility] Determination of erythrocyte mean corpuscular volume (MCV)Ordered By: Dr. Disla on 07-01-2022 MCV (RBC) [Entitic vol] 95.0 fL 81-99 [facility] MCHC Auto (RBC) [Mass/Vol]Or dered By: Dr. Disla on 07-01-2022 MCHC (RBC) [Mass/Vol] 32.4 g/dL 32-36 [facility] No Panel InformationOrdered By: Dr. Disla on 07-01-2022 30.8 pg 27.0-32.0 [facility] 15.7 % 11.6-14.6 [facility] 55.3 fl 35.1-43.9 [facility] 0.300 % 0.0-0.9 [facility] 0 % 0-5 [facility] 4.1 g/dL 2.2-4.2 [facility] 141 U/L 45-117 [facility] 49 U/L 13-56 [facility] Platelets bldOrdered By: Dr. Disla on 07-01-2022 Platelets (Bld) [#/Vol] 498 10*3/uL 150-450 [facility] Serum or plasma albumin marilin urement (mass/volume)Ordered By: Dr. Disla on 07-01-2022 Albumin [Mass/Vol] 3.2 g/dL 3.2-5.0 [facility] Serum or plasma albumin/glob ulin mass ratioOrdered By: Dr. Disla on 07-01-2022 Albumin/Globulin [Mass ratio] 0.8 {ratio} 0.9-2.4 [facility] Thin prep Papanicolaou smear with manual screeningOrdered By: Dr. Disla on 07-01-2022 Thin prep Papanicolaou smear with manual screening 35 U/L 15-37 [facility] Absolute lymphocyte countOrd ered By: Dr. Osorio on 06-28-2022 Lymphocytes Auto (Unsp spec) [#/Vol] 1.24 10*3/uL 0.83-4.51 [facility] Basophil percentageOrdered B y: Dr. Osorio on 06-28-2022 Basophil percentage 176 mg/dL 74-106 [facility] Basophil percentage 3.1 mg/dL 2.5-4.9 [facility] Basophil percentage 139 mmol/L 136-145 [facility] Basophil percentage 4.1 mmol/L 3.5-5.1 [facility] Basophil percentage 104 mmol/L 98-107 [facility] Basophils (Bld) [#/Vol] 13.0 10*3/uL 4.4-11.0 [facility] Basophils (Bld) [#/Vol] 10.4 10*3/uL 2.0-7.7 [facility] Basophils/100 WBC (Bld) 79.7 % 47-[address] [facility] Basophils/100 WBC (Bld) 0.0 % 0-[address] [facility] Basophils/100 WBC (Bld) 0.3 % 0-[address] [facility] Blood erythrocytes count (nu mber/volume)Ordered By: Dr. Osorio on 06-28-2022 RBC (Bld) [#/Vol] 2.64 10*6/uL 4.2-5.4 [facility] Blood hemoglobin measurement (mass/volume)Ordered By: Dr. Osorio on 06-28-2022 Hemoglobin (Bld) [Mass/Vol] 8.2 g/dL 12.0-15.0 [facility] Blood lymphocytes/100 leukoc ytesOrdered By: Dr. Osorio on 06-28-2022 Lymphocytes/100 WBC (Bld) 9.5 % 19-41 [facility] Blood monocytes/100 leukocyt esOrdered By: Dr. Osorio on 06-28-2022 Monocytes/100 WBC (Bld) 10.1 % 0-[address] [facility] Blood platelet mean volumeOr dered By: Dr. Osorio on 06-28-2022 Platelet mean volume (Bld) [Entitic vol] 8.6 fL 6.2-12.0 [facility] Determination of erythrocyte mean corpuscular volume (MCV)Ordered By: Dr. Osorio on 06-28-2022 MCV (RBC) [Entitic vol] 95.1 fL 81-[address] [facility] Hematocrit Auto (Bld) [Volum e fraction]Ordered By: Dr. Osorio on 06-28-2022 Hematocrit (Bld) [Volume fraction] 25.1 % 37-47 [facility] MCHC Auto (RBC) [Mass/Vol]Or dered By: Dr. Osorio on 06-28-2022 MCHC (RBC) [Mass/Vol] 32.7 g/dL 32-36 [facility] No Panel InformationOrdered By: Dr. Osorio on 06-28-2022 31.1 pg 27.0-32.0 [facility] 15.7 % 11.6-14.6 [facility] 54.6 fl 35.1-43.9 [facility] 0.400 % 0.0-0.9 [facility] 0 % 0-5 [facility] 163 mL/min >60 [facility] 198 mL/min >60 [facility] 108.37 ml/min [facility] 69.7 RATIO 10-20 [facility] 1.7 mg/dL 1.6-2.6 [facility] 29.0 mmol/L 21.0-32.0 [facility] Platelets bldOrdered By: Dr. Osorio on 06-28-2022 Platelets (Bld) [#/Vol] 385 10*3/uL 150-450 [facility] Serum or plasma calcium marilin urement (mass/volume)Ordered By: Dr. Osorio on 06-28-2022 Calcium [Mass/Vol] 8.3 mg/dL 8.5-10.1 [facility] Serum or plasma creatinine m easurement (mass/volume)Ordered By: Dr. Osorio on 06-28-2022 Creatinine [Mass/Vol] 0.44 mg/dL 0.55-1.02 [facility] Serum or plasma urea nitroge n measurement (mass/volume)Ordered By: Dr. Osorio on 06-28-2022 Urea nitrogen [Mass/Vol] 31 mg/dL 7-18 [facility] Thin prep Papanicolaou smear with manual screeningOrdered By: Dr. Osorio on 06-28-2022 Thin prep Papanicolaou smear with manual screening 6 5-15 [facility] Absolute lymphocyte countOrd ered By: Dr. Disla on 06-26-2022 Lymphocytes Auto (Unsp spec) [#/Vol] 1.81 10*3/uL 0.83-4.51 [facility] Basophil percentageOrdered B y: Dr. Disla on 06-26-2022 Basophil percentage 104 mg/dL 74-106 [facility] Basophil percentage 136 mmol/L 136-145 [facility] Basophil percentage 3.5 mmol/L 3.5-5.1 [facility] Basophil percentage 100 mmol/L 98-107 [facility] Basophils (Bld) [#/Vol] 10.9 10*3/uL 4.4-11.0 [facility] Basophils (Bld) [#/Vol] 8.0 10*3/uL 2.0-7.7 [facility] Basophils/100 WBC (Bld) 73.1 % 47-[address] [facility] Basophils/100 WBC (Bld) 2.7 % 0-[address] [facility] Basophils/100 WBC (Bld) 0.8 % 0-[address] [facility] Blood erythrocytes count (nu mber/volume)Ordered By: Dr. Disla on 06-26-2022 RBC (Bld) [#/Vol] 3.80 10*6/uL 4.2-5.4 [facility] Blood hemoglobin measurement (mass/volume)Ordered By: Dr. Disla on 06-26-2022 Hemoglobin (Bld) [Mass/Vol] 11.5 g/dL 12.0-15.0 [facility] Blood lymphocytes/100 leukoc ytesOrdered By: Dr. Disla on 06-26-2022 Lymphocytes/100 WBC (Bld) 16.5 % 19-41 [facility] Blood monocytes/100 leukocyt esOrdered By: Dr. Disla on 06-26-2022 Monocytes/100 WBC (Bld) 6.4 % 0-10 [facility] Blood platelet mean volumeOr dered By: Dr. Disla on 06-26-2022 Platelet mean volume (Bld) [Entitic vol] 8.4 fL 6.2-12.0 [facility] Determination of erythrocyte mean corpuscular volume (MCV)Ordered By: Dr. Disla on 06-26-2022 MCV (RBC) [Entitic vol] 94.2 fL 81-99 [facility] Hematocrit Auto (Bld) [Volum e fraction]Ordered By: Dr. Disla on 06-26-2022 Hematocrit (Bld) [Volume fraction] 35.8 % 37-47 [facility] MCHC Auto (RBC) [Mass/Vol]Or dered By: Dr. Disla on 06-26-2022 MCHC (RBC) [Mass/Vol] 32.1 g/dL 32-36 [facility] No Panel InformationOrdered By: Dr. Disla on 06-26-2022 30.3 pg 27.0-32.0 [facility] 15.6 % 11.6-14.6 [facility] 53.9 fl 35.1-43.9 [facility] 0.500 % 0.0-0.9 [facility] 0 % 0-5 [facility] 131 mL/min >60 [facility] 158 mL/min >60 [facility] 86.31 ml/min [facility] 72.2 RATIO 10-20 [facility] 1.6 mg/dL 1.6-2.6 [facility] 26.0 mmol/L 21.0-32.0 [facility] 15.6 pg/mL 18.4-80.1 [facility] Platelets bldOrdered By: Dr. Disla on 06-26-2022 Platelets (Bld) [#/Vol] 564 10*3/uL 150-450 [facility] Serum or plasma calcium marilin urement (mass/volume)Ordered By: Dr. Disla on 06-26-2022 Calcium [Mass/Vol] 10.3 mg/dL 8.5-10.1 [facility] Serum or plasma creatinine m easurement (mass/volume)Ordered By: Dr. Disla on 06-26-2022 Creatinine [Mass/Vol] 0.54 mg/dL 0.55-1.02 [facility] Serum or plasma urea nitroge n measurement (mass/volume)Ordered By: Dr. Disla on 06-26-2022 Urea nitrogen [Mass/Vol] 39 mg/dL 7-18 [facility] Thin prep Papanicolaou smear with manual screeningOrdered By: Dr. Disla on 06-26-2022 Thin prep Papanicolaou smear with manual screening 10 5-15 [facility] Serum or plasma cortisol oanh surement (mass/volume)Ordered By: Dr. Disla on 06-23-2022 Cortisol [Mass/Vol] 23.30 ug/dL 3.44-22.45 [facility] Serum or plasma albumin marilin urement (mass/volume)Ordered By: Dr. Disla on 06-19-2022 Albumin [Mass/Vol] 3.0 g/dL 3.2-5.0 [facility] Blood manual differential co mment interpretation (narrative result)Ordered By: Dr. Disla on 06-16-2022 Manual differential comment Erwin (Bld) [Interp] SCANNED [facility] Blood platelet adequacy dete ction by light microscopyOrdered By: Dr. Disla on 06-16-2022 Platelets LM Ql (Bld) ADEQUATE ADEQ [facility] Basophil percentageOrdered B y: Dr. Disla on 06-13-2022 Basophil percentage 6.0 g/dL 6.4-8.2 [facility] Basophil percentage 0.40 mg/dL 0.20-1.00 [facility] No Panel InformationOrdered By: Dr. Disla on 06-13-2022 3.6 g/dL 2.2-4.2 [facility] 116 U/L 45-117 [facility] 36 U/L 13-56 [facility] Serum or plasma albumin/glob ulin mass ratioOrdered By: Dr. Disla on 06-13-2022 Albumin/Globulin [Mass ratio] 0.7 {ratio} 0.9-2.4 [facility] Thin prep Papanicolaou smear with manual screeningOrdered By: Dr. Disla on 06-13-2022 Thin prep Papanicolaou smear with manual screening 22 U/L 15-37 [facility] Review by pathologistOrdered By: Dr. Disla on 06-10-2022 Pathologist review Erwin (Unsp spec) [Interp] Reviewed [facility] No Panel InformationOrdered By: Parth Byrd on 06-08-2022 Increased . [facility] 48 ug/g 0-120 [facility] 287 >200 [facility] No Panel InformationOrdered By: Dr. Disla on 06-08-2022 2+ [facility] Qualitative fecal fat or lip idsOrdered By: Parth Byrd on 06-08-2022 Fat Ql (Stl) Increased . [facility] Serum procalcitonin measurem entOrdered By: Dr. Disla on 06-08-2022 Procalcitonin [Mass/Vol] 0.32 ng/mL 0.00-0.09 [facility] Stool lactoferrin detection by immunoassayOrdered By: Parth Byrd on 06-08-2022 Lactoferrin IA Ql (Stl) [facility] Basophil percentageOrdered B y: Dr. Disla on 06-07-2022 Basophil percentage 3.2 mg/dL 2.5-4.9 [facility] Erythrocyte sedimentation ra teOrdered By: Dr. Disla on 06-05-2022 ESR (Bld) [Velocity] 40 mm/h 0-30 [facility] Serum or plasma C reactive p rotein measurement (mass/volume)Ordered By: Dr. Disla on 06-05-2022 CRP [Mass/Vol] 9.23 mg/L 0.0-3.0 [facility] Thin prep Papanicolaou smear with manual screeningOrdered By: Dr. Disla on 06-05-2022 Thin prep Papanicolaou smear with manual screening 292 mOsm/KG 275-295 [facility] Urine osmolality measurement Ordered By: Dr. Disla on 06-05-2022 Osmolality (U) [Osmolality] 309 mOsm/KG >50 [facility] Glucose Glucometer (BldC) [M ass/Vol]Ordered By: Dr. Ritter on 06-03-2022 Glucose [Mass/Vol] 116 mg/dL 74-106 [facility] No Panel InformationOrdered By: Dr. Disla on 05-31-2022 66 U/L 73-393 [facility] Whole blood hemoglobin A1c/t otal hemoglobin ratio (mass fraction)Ordered By: Dr. Disla on 05-31-2022 HbA1c (Bld) [Mass fraction] 5.7 % 3.8-5.6 [facility] Anaerobic cultureOrdered By: Dr. Osorio on 05-29-2022 Bacteria identified Anaer cx Nom (Unsp spec) No growth in 5 days. [facility] Absolute lymphocyte countOrd ered By: Dr. Rene on 05-28-2022 Lymphocytes Auto (Unsp spec) [#/Vol] 2.72 10*3/uL 0.83-4.51 [facility] Basophil percentageOrdered B y: Alanis Baker on 05-28-2022 Basophil percentage 129 mg/dL 74-106 [facility] Basophil percentage 3.8 g/dL 6.4-8.2 [facility] Basophil percentage 2.2 mg/dL 2.5-4.9 [facility] Basophil percentage 0.60 mg/dL 0.20-1.00 [facility] Basophil percentage 138 mmol/L 136-145 [facility] Basophil percentage 4.7 mmol/L 3.5-5.1 [facility] Basophil percentage 111 mmol/L 98-107 [facility] Basophil percentageOrdered B y: Dr. Rene on 05-28-2022 Basophils (Bld) [#/Vol] 26.2 10*3/uL 4.4-11.0 [facility] Basophils (Bld) [#/Vol] 20.8 10*3/uL 2.0-7.7 [facility] Basophils/100 WBC (Bld) 79.4 % 47-[address] [facility] Basophils/100 WBC (Bld) 0.0 % 0-[address] [facility] Basophils/100 WBC (Bld) 0.3 % 0-[address] [facility] Blood erythrocytes count (nu mber/volume)Ordered By: Dr. Rene on 05-28-2022 RBC (Bld) [#/Vol] 3.43 10*6/uL 4.2-5.4 [facility] Blood hemoglobin measurement (mass/volume)Ordered By: Dr. Rene on 05-28-2022 Hemoglobin (Bld) [Mass/Vol] 9.7 g/dL 12.0-15.0 [facility] Blood lymphocytes/100 leukoc ytesOrdered By: Dr. Rene on 05-28-2022 Lymphocytes/100 WBC (Bld) 10.4 % 19-41 [facility] Blood manual differential co mment interpretation (narrative result)Ordered By: Dr. Rene on 05-28-2022 Manual differential comment Erwin (Bld) [Interp] SCANNED [facility] Blood monocytes/100 leukocyt esOrdered By: Dr. Rene on 05-28-2022 Monocytes/100 WBC (Bld) 7.4 % 0-[address] [facility] Blood platelet mean volumeOr dered By: Dr. Rene on 05-28-2022 Platelet mean volume (Bld) [Entitic vol] 10.1 fL 6.2-12.0 [facility] COVID-19 virus antigen assay Ordered By: Dr. Rene on 05-28-2022 SARS-CoV-2 (COVID-19) Ag IA.rapid Ql (Resp) [facility] Determination of erythrocyte mean corpuscular volume (MCV)Ordered By: Dr. Rene on 05-28-2022 MCV (RBC) [Entitic vol] 83.4 fL 81-[address] [facility] Hematocrit Auto (Bld) [Volum e fraction]Ordered By: Dr. Rene on 05-28-2022 Hematocrit (Bld) [Volume fraction] 28.6 % 37-47 [facility] MCHC Auto (RBC) [Mass/Vol]Or dered By: Dr. Rene on 05-28-2022 MCHC (RBC) [Mass/Vol] 33.9 g/dL 32-36 [facility] No Panel InformationOrdered By: Dr. Rene on 05-28-2022 28.3 pg 27.0-32.0 [facility] 17.9 % 11.6-14.6 [facility] 53.4 fl 35.1-43.9 [facility] 2.500 % 0.0-0.9 [facility] 0.1 % 0-5 [facility] No growth in 5 days. [facility] No Panel InformationOrdered By: Alanis Baker on 05-28-2022 251 mL/min >60 [facility] 303 mL/min >60 [facility] 208.34 ml/min [facility] 42.3 RATIO 10-20 [facility] 2.4 g/dL 2.2-4.2 [facility] 303 U/L 45-117 [facility] 63 U/L 13-56 [facility] 1.3 mg/dL 1.6-2.6 [facility] 23.0 mmol/L 21.0-32.0 [facility] Platelets bldOrdered By: Dr. Rene on 05-28-2022 Platelets (Bld) [#/Vol] 241 10*3/uL 150-450 [facility] Review by pathologistOrdered By: Dr. Rene on 05-28-2022 Pathologist review Erwin (Unsp spec) [Interp] Reviewed [facility] Serum or plasma albumin marilin urement (mass/volume)Ordered By: Alanis Baker on 05-28-2022 Albumin [Mass/Vol] 1.4 g/dL 3.2-5.0 [facility] Serum or plasma albumin/glob ulin mass ratioOrdered By: Alanis Baker on 05-28-2022 Albumin/Globulin [Mass ratio] 0.6 {ratio} 0.9-2.4 [facility] Serum or plasma calcium marilin urement (mass/volume)Ordered By: Alanis Baker on 05-28-2022 Calcium [Mass/Vol] 7.4 mg/dL 8.5-10.1 [facility] Serum or plasma creatinine m easurement (mass/volume)Ordered By: Alanis Baker on 05-28-2022 Creatinine [Mass/Vol] 0.31 mg/dL 0.55-1.02 [facility] Serum or plasma urea nitroge n measurement (mass/volume)Ordered By: Alanis Baker on 05-28-2022 Urea nitrogen [Mass/Vol] 13 mg/dL 7-18 [facility] Thin prep Papanicolaou smear with manual screeningOrdered By: Alanis Baker on 05-28-2022 Thin prep Papanicolaou smear with manual screening 88 U/L 15-37 [facility] Thin prep Papanicolaou smear with manual screening 4 5-15 [facility] Absolute lymphocyte counton 05-27-2022 Lymphocytes Auto (Unsp spec) [#/Vol] 2.48 10*3/uL 0.83-4.51 [facility] Work Phone: Basophil percentageon 2021 Basophils/100 WBC (Bld) 0.4 % 0-[address] [facility] Work Phone: Bilirubin [Mass/Vol] 0.50 mg/dL 0.20-1.00 [facility] Work Phone: Comment on above: For patients on eltr ombopag therapy, use of Dimension [place] TBIL is not recommended. Chloride [Moles/Vol] 113 mmol/L 98-107 [facility] Work Phone: Eosinophils/100 WBC (Bld) 0.0 % 0-5 [facility] Work Phone: Glucose [Mass/Vol] 159 mg/dL 74-106 [facility] Work Phone: Comment on above: Fasting Glucose resu lt greater than or equal to 126 mg/dL suggests DIABETES MELLITUS per A.D.A. criteria. Neutrophils (Bld) [#/Vol] 25.6 10*3/uL 2.0-7.7 [facility] Work Phone: Neutrophils/100 WBC (Bld) 81.9 % 47-70 [facility] Work Phone: [phone] Potassium [Moles/Vol] 4.1 mmol/L 3.5-5.1 [facility] Work Phone: Protein [Mass/Vol] 3.7 g/dL 6.4-8.2 [facility] Work Phone: Sodium [Moles/Vol] 140 mmol/L 136-145 [facility] Work Phone: WBC (Bld) [#/Vol] 31.3 10*3/uL 4.4-11.0 [facility] Work Phone: Comment on above: CRITICAL VALUE VERIF IED. CALLED TO ENEIDA PAGE05/27/22 0623 Janusz Davis.RESULTS READ BACK BY SAME . Basophil percentage 2.0 mg/dL 2.5-4.9 [facility] Work Phone: Blood erythrocytes count (nu mber/volume)on 05-27-2022 RBC (Bld) [#/Vol] 3.54 10*6/uL 4.2-5.4 [facility] Work Phone: Blood hemoglobin measurement (mass/volume)on 05-27-2022 Hemoglobin (Bld) [Mass/Vol] 10.1 g/dL 12.0-15.0 [facility] Work Phone: Blood lymphocytes/100 leukoc yteson 05-27-2022 Lymphocytes/100 WBC (Bld) 7.9 % 19-41 [facility] Work Phone: Blood manual differential co mment interpretation (narrative result)on 05-27-2022 Manual differential comment Erwin (Bld) [Interp] SCANNED [facility] Work Phone: Blood monocytes/100 leukocyt eson 05-27-2022 Monocytes/100 WBC (Bld) 6.3 % 0-[address] [facility] Work Phone: Blood platelet mean volumeon 05-27-2022 Platelet mean volume (Bld) [Entitic vol] 9.4 fL 6.2-12.0 [facility] Work Phone: Determination of erythrocyte mean corpuscular volume (MCV)on 05-27-2022 MCV (RBC) [Entitic vol] 83.6 fL 81-[address] [facility] Work Phone: Hematocrit Auto (Bld) [Volum e fraction]on 05-27-2022 Hematocrit (Bld) [Volume fraction] 29.6 % 37-47 [facility] Work Phone: INR in Blood by Coagulation assayOrdered By: Dr. Rene on 05-27-2022 INR Coag (Bld) [Relative time] 1.5 {INR} [facility] Laboratory - Chemistry and C hemistry - challengeon 05-27-2022 ALP [Catalytic activity/Vol] 316 U/L 45-117 [facility] Work Phone: ALT [Catalytic activity/Vol] 43 U/L 13-56 [facility] Work Phone: CO2 [Moles/Vol] 19.0 mmol/L 21.0-32.0 [facility] Work Phone: Globulin (S) [Mass/Vol] 2.2 g/dL 2.2-4.[address] [facility] Work Phone: Urea nitrogen/Creatinine [Mass ratio] 32.7 mg/mg 10-20 [facility] Work Phone: Magnesium [Mass/Vol] 1.9 mg/dL 1.6-2.6 [facility] Work Phone: Laboratory - Coagulationon 1 PT Coag (PPP) [Time] 17.9 s 11.7-14.9 [facility] Work Phone: Laboratory - Hematology and Cell countson 05-27-2022 Erythrocyte distribution width (RBC) [Entitic vol] 53.5 fL 35.1-43.9 [facility] Work Phone: Erythrocyte distribution width (RBC) [Ratio] 17.9 % 11.6-14.6 [facility] Work Phone: Immature granulocytes/100 WBC (Bld) 3.500 % 0.0-0.9 [facility] Work Phone: Comment on above: IG% - Immature Granu locytes (promyelocytes, myelocytes and metamyelocytes) > 1% indicates that a LEFT SHIFT is Present. MCH (RBC) [Entitic mass] 28.5 pg 27.0-32.0 [facility] Work Phone: Nucleated RBC/100 WBC (Bld) [Ratio] 0.1 % 0-5 [facility] Work Phone: MCHC Auto (RBC) [Mass/Vol]on 05-27-2022 MCHC (RBC) [Mass/Vol] 34.1 g/dL 32-36 [facility] Work Phone: No Panel Informationon 05-27 Estimated Creatinine Clearance Calc 161.46 ml/min [facility] Work Phone: Estimated GFR (MDRD) Amer 225 mL/min >60 [facility] Work Phone: Comment on above: GFR Calc Estimated GFR (MDRD) Non-Af Amer 186 mL/min >60 [facility] Work Phone: Comment on above: Non- GFR Calc No Panel InformationOrdered By: Dr. Rene on 05-27-2022 17.9 SECONDS 11.7-14.9 [facility] Platelets bldon 05-27-2022 Platelets (Bld) [#/Vol] 217 10*3/uL 150-450 [facility] Work Phone: Review by pathologiston 04-29 Pathologist review Erwin (Unsp spec) [Interp] September [facility] Work Phone: Serum or plasma albumin marilin urement (mass/volume)on 05-27-2022 Albumin [Mass/Vol] 1.5 g/dL 3.2-5.0 [facility] Work Phone: Serum or plasma albumin/glob ulin mass ratioon 05-27-2022 Albumin/Globulin [Mass ratio] 0.7 {ratio} 0.9-2.4 [facility] Work Phone: Serum or plasma calcium marilin urement (mass/volume)on 05-27-2022 Calcium [Mass/Vol] 7.2 mg/dL 8.5-10.1 [facility] Work Phone: Serum or plasma creatinine m easurement (mass/volume)on 05-27-2022 Creatinine [Mass/Vol] 0.40 mg/dL 0.55-1.02 [facility] Work Phone: Comment on above: The validity of the calculated GFR & GFRAA in patients over 70 years has not been determined. Clinical correlation is essential. Serum or plasma urea nitroge n measurement (mass/volume)on 05-27-2022 Urea nitrogen [Mass/Vol] 13 mg/dL 7-18 [facility] Work Phone: Thin prep Papanicolaou smear with manual screeningon 05-27-2022 Thin prep Papanicolaou smear with manual screening 53 U/L 15-37 [facility] Work Phone: Thin prep Papanicolaou smear with manual screening 8 5-15 [facility] Work Phone: Basophil percentageon 2021 Basophil percentage 1 % 0-5 [facility] Work Phone: Basophil percentageOrdered B y: Dr. Rene on 05-26-2022 Basophils/100 WBC (Bld) 1 % 0-5 [facility] Blood band neutrophil count as percentage of total leukocytesOrdered By: Dr. Rene on 05-26-2022 Band form neutrophils/100 WBC (Bld) 6 % 0-5 [facility] Blood lymphocytes/100 leukoc ytesOrdered By: Dr. Rene on 05-26-2022 Lymphocytes/100 WBC (Bld) 6 % 19-41 [facility] Blood metamyelocytes/100 madelyn kocytesOrdered By: Dr. Rene on 05-26-2022 Metamyelocytes/100 WBC (Bld) 2 % 0-1 [facility] Blood monocytes/100 leukocyt esOrdered By: Dr. Rene on 05-26-2022 Monocytes/100 WBC (Bld) 5 % 0-[address] [facility] Blood platelet adequacy dete ction by light microscopyOrdered By: Dr. Rene on 05-26-2022 Platelets LM Ql (Bld) ADEQUATE ADEQ [facility] Blood segmented neutrophils/ [address]: [address] Rene on 05-26-2022 Segmented neutrophils/100 WBC (Bld) 81 % 47-70 [facility] RBC morphologyOrdered By: Dr Jo Rene on 05-26-2022 RBC morphology finding Nom (Bld) NORM C+C NORMAL NORM C&C [facility] Total cell countOrdered By: Dr. Rene on 05-26-2022 Cells counted Molgen (Bld/Tiss) [#] 100 MANUAL DIFF [facility] Blood yasmin cells detection b y light microscopyOrdered By: Dr. Rene on 05-25-2022 [place] cells LM Ql (Bld) 1+ [facility] Clostridium difficile detect ion by polymerase chain reactionOrdered By: Dr. Osorio on 05-25-2022 C. difficile DNA AMBROCIO+probe Ql (Unsp spec) [facility] Laboratory - Hematology and Cell countson 05-25-2022 Anisocytosis Ql (Bld) 1+ [facility] Work Phone: No Panel InformationOrdered By: Dr. Rene on 05-25-2022 1+ [facility] Routine wound cultureOrdered By: Dr. Osorio on 05-25-2022 Bacteria identified Cx Nom (Wound) No growth aerobically. [facility] Basophil percentageOrdered B y: Dr. Rene on 05-24-2022 Basophil percentage 4.4 mmol/L 0.4-2.0 [facility] Basophil percentageon 2021 Lactate [Moles/Vol] 4.4 mmol/L 0.4-2.0 [facility] Work Phone: Comment on above: Critical Result(s) C alled at: 22:31:18 05/24/2022 by: [facility] Results read back by same. Gram stain for investigation of transfusion reactionOrdered By: Dr. Osorio on 05-24-2022 Microscopic observation Gram stain Nom (Unsp spec) [facility] HCO3 (BldA) [Moles/Vol]Order ed By: Dr. Rene on 05-24-2022 HCO3 (Bld) [Moles/Vol] 11 mmol/L [facility] Laboratory - Chemistry and C hemistry - challengeon 05-24-2022 CO2 [Moles/Vol] 12 mmol/L - [facility] Work Phone: No Panel Informationon 05-24 Bed Mix Venous Bld PCO2 at Pat Temp 24.9 mmHg 41-51 [facility] Work Phone: Blood Gas Sample Site L Radial [facility] Work Phone: Blood Gas Specimen Type HERBER [facility] Work Phone: Venous Blood Base Excess -16 mmol/L -1.0-3.5 [facility] Work Phone: No Panel InformationOrdered By: Dr. Rene on 05-24-2022 [facility] 24.9 mmHg 41-51 [facility] -16 mmol/L -1.0-3.5 [facility] 85 % 50-70 [facility] 12 mmol/L - [facility] PO2 venousOrdered By: Dr. Wilian polanco on 05-24-2022 Oxygen (BldV) [Partial pressure] 56 mm[Hg] 25-40 [facility] Serum or plasma transthyreti n measurement (mass/volume)Ordered By: Lisa Cerrato on 05-24-2022 Prealbumin [Mass/Vol] 3.1 mg/dL 20.0-40.0 [facility] Vital signson 05-24-2022 Oxygen saturation in Blood 85 % 50-70 [facility] Work Phone: pH measurementOrdered By: Dr Jo Rene on 05-24-2022 pH (Unsp spec) 7.26 [pH] 7.32-7.42 [facility] Bacteria identified Cx Nom ( U)Ordered By: Dr. Martínez on 05-23-2022 Culture, urine Positive [facility] Absolute lymphocyte counton 05-22-2022 Lymphocytes Auto (Unsp spec) [#/Vol] 2.39 10*3/uL 0.83-4.51 [facility] Work Phone: Basophil percentageOrdered B y: Dr. Martínez on 05-22-2022 Basophil percentage 0-5 SEEN /hpf 0-5 [facility] Basophil percentageon 2021 Basophil percentage Not Reportable [facility] Work Phone: Bilirubin [Mass/Vol] 0.50 mg/dL 0.20-1.00 [facility] Work Phone: Comment on above: For patients on eltr ombopag therapy, use of Dimension [place] TBIL is not recommended. Chloride [Moles/Vol] 88 mmol/L 98-107 [facility] Work Phone: Glucose [Mass/Vol] 134 mg/dL 74-106 [facility] Work Phone: Comment on above: Fasting Glucose resu lt greater than or equal to 126 mg/dL suggests DIABETES MELLITUS per A.D.A. criteria. Lactate [Moles/Vol] 1.0 mmol/L 0.4-2.0 [facility] Work Phone: Neutrophils (Bld) [#/Vol] 38.6 10*3/uL 2.0-7.7 [facility] Work Phone: Potassium [Moles/Vol] 2.2 mmol/L 3.5-5.1 [facility] Work Phone: Comment on above: Critical Result(s) C alled at: 14:20:40 05/22/2022 by: Danyel Spears. Robert Darling RN (ER). Results read back by same. Protein [Mass/Vol] 5.9 g/dL 6.4-8.2 [facility] Work Phone: Sodium [Moles/Vol] 130 mmol/L 136-145 [facility] Work Phone: WBC (Bld) [#/Vol] 47.7 10*3/uL 4.4-11.0 [facility] Work Phone: Bilirubin Test strip Ql (U)O rdered By: Dr. Martínez on 05-22-2022 Bilirubin Ql (U) Negative Negative [facility] Blood band neutrophil count as percentage of total leukocyteson 05-22-2022 Band form neutrophils/100 WBC (Bld) 4 % 0-5 [facility] Work Phone: Blood erythrocytes count (nu mber/volume)on 05-22-2022 RBC (Bld) [#/Vol] 2.88 10*6/uL 4.2-5.4 [facility] Work Phone: [phone] Blood hemoglobin measurement (mass/volume)on 05-22-2022 Hemoglobin (Bld) [Mass/Vol] 8.3 g/dL 12.0-15.0 [facility] Work Phone: Blood lymphocytes/100 leukoc yteson 05-22-2022 Lymphocytes/100 WBC (Bld) 5 % 19-41 [facility] Work Phone: Blood metamyelocytes/100 madelyn kocyteson 05-22-2022 Metamyelocytes/100 WBC (Bld) 2 % 0-1 [facility] Work Phone: [phone] Blood monocytes/100 leukocyt eson 05-22-2022 Monocytes/100 WBC (Bld) 5 % 0-[address] [facility] Work Phone: Blood platelet adequacy dete ction by light microscopyon 05-22-2022 Platelets LM Ql (Bld) ADEQUATE ADEQ [facility] Work Phone: Blood platelet mean volumeon 05-22-2022 Platelet mean volume (Bld) [Entitic vol] 9.3 fL 6.2-12.0 [facility] Work Phone: Blood segmented neutrophils/ 100 leukocyteson 05-22-2022 Segmented neutrophils/100 WBC (Bld) 77 % 47-70 [facility] Work Phone: [phone] Determination of erythrocyte mean corpuscular volume (MCV)on 05-22-2022 MCV (RBC) [Entitic vol] 85.8 fL 81-[address] [facility] Work Phone: Hematocrit Auto (Bld) [Volum e fraction]on 05-22-2022 Hematocrit (Bld) [Volume fraction] 24.7 % 37-47 [facility] Work Phone: Ketones Test strip Ql (U)Ord ered By: Dr. Martínez on 05-22-2022 Ketones Ql (U) 150 mg/dl Negative [facility] Comment on above: RESULTS CALLED TO ALEXX DALEY RN 05/22/22 1438 Tresa Camargo.REPORT READ BACK BY SAME.CRITICAL VALUE *H Laboratory - Chemistry and C hemistry - challengeon 05-22-2022 ALP [Catalytic activity/Vol] 167 U/L 45-117 [facility] Work Phone: ALT [Catalytic activity/Vol] 17 U/L 13-56 [facility] Work Phone: CO2 [Moles/Vol] 32.0 mmol/L 21.0-32.0 [facility] Work Phone: [phone] Globulin (S) [Mass/Vol] 3.4 g/dL 2.2-4.[address] [facility] Work Phone: Urea nitrogen/Creatinine [Mass ratio] 40.5 mg/mg 10-20 [facility] Work Phone: Laboratory - Hematology and Cell countson 05-22-2022 Erythrocyte distribution width (RBC) [Entitic vol] 51.3 fL 35.1-43.9 [facility] Work Phone: Erythrocyte distribution width (RBC) [Ratio] 16.7 % 11.6-14.6 [facility] Work Phone: MCH (RBC) [Entitic mass] 28.8 pg 27.0-32.0 [facility] Work Phone: Myelocytes/100 WBC (Bld) 7 % 0-0 [facility] Work Phone: [phone] MCHC Auto (RBC) [Mass/Vol]on 05-22-2022 MCHC (RBC) [Mass/Vol] 33.6 g/dL 32-36 [facility] Work Phone: Mucus LM Ql (Urine sed)Order ed By: Dr. Martínez on 05-22-2022 Mucus Ql (Urine sed) 0 SEEN /hpf [facility] Nitrite Test strip Ql (U)Ord ered By: Dr. Martínez on 05-22-2022 Nitrite Ql (U) Negative Negative [facility] No Panel Informationon 05-22 Estimated Creatinine Clearance Calc 94.44 ml/min [facility] Work Phone: Estimated GFR (MDRD) Amer 198 mL/min >60 [facility] Work Phone: Comment on above: GFR Calc Estimated GFR (MDRD) Non-Af Amer 164 mL/min >60 [facility] Work Phone: Comment on above: Non- GFR Calc No Panel InformationOrdered By: Dr. Martínez on 05-22-2022 7 % 0-0 [facility] Platelets bldon 05-22-2022 Platelets (Bld) [#/Vol] 158 10*3/uL 150-450 [facility] Work Phone: Protein Test strip Ql (U)Ord ered By: Dr. Martínez on 05-22-2022 Protein Ql (U) 30 mg/dl Negative [facility] RBC morphologyon 05-22-2022 RBC morphology finding Nom (Bld) NORM C+C NORMAL NORM C&C [facility] Work Phone: Review by pathologiston 04-28 Pathologist review Erwin (Unsp spec) [Interp] May foll [facility] Work Phone: Serum or plasma albumin marilin urement (mass/volume)on 05-22-2022 Albumin [Mass/Vol] 2.5 g/dL 3.2-5.0 [facility] Work Phone: Serum or plasma albumin/glob ulin mass ratioon 05-22-2022 Albumin/Globulin [Mass ratio] 0.7 {ratio} 0.9-2.4 [facility] Work Phone: Serum or plasma calcium marilin urement (mass/volume)on 05-22-2022 Calcium [Mass/Vol] 8.4 mg/dL 8.5-10.1 [facility] Work Phone: Serum or plasma creatinine m easurement (mass/volume)on 05-22-2022 Creatinine [Mass/Vol] 0.44 mg/dL 0.55-1.02 [facility] Work Phone: Comment on above: The validity of the calculated GFR & GFRAA in patients over 70 years has not been determined. Clinical correlation is essential. Serum or plasma urea nitroge n measurement (mass/volume)on 05-22-2022 Urea nitrogen [Mass/Vol] 18 mg/dL 7-18 [facility] Work Phone: Squamous epithelial cells de tection in urine sediment by light microscopyOrdered By: Dr. Martínez on 05-22-2022 Epithelial cells.squamous LM Ql (Urine sed) 0 SEEN /hpf 5-10 [facility] Thin prep Papanicolaou smear with manual screeningon 05-22-2022 Thin prep Papanicolaou smear with manual screening 10 U/L 15-37 [facility] Work Phone: Thin prep Papanicolaou smear with manual screening 10 5-15 [facility] Work Phone: Total cell counton 2 Cells counted Molgen (Bld/Tiss) [#] 100 MANUAL DIFF [facility] Work Phone: Urine blood detectionOrdered By: Dr. Martínez on 05-22-2022 RBC Ql (U) 25 /ul Negative [facility] RBC Ql (U) 0-5 SEEN /hpf 0-5 [facility] Urine clarityOrdered By: Dr. Martínez on 05-22-2022 Clarity (U) Sl. Cloudy Clear [facility] Urine color determinationOrd ered By: Dr. Martínez on 05-22-2022 Color (U) Yellow Yellow [facility] Urine glucose detectionOrder ed By: Dr. Martínez on 05-22-2022 Glucose Ql (U) Normal mg/dl Normal [facility] Urine leukocyte esterase det ection by dipstickOrdered By: Dr. Martínez on 05-22-2022 Leukocyte esterase Test strip Ql (U) 25 /ul Negative [facility] Urine pHOrdered By: Dr. Katy sow on 05-22-2022 pH (U) 6.0 [pH] 5.0 - 8.0 [facility] Urine sediment bacteria coun t by microscopy (number/high power field)Ordered By: Dr. Martínez on 05-22-2022 Bacteria LM.HPF (Urine sed) [#/Area] 1 /[HPF] None Seen [facility] Urine specific gravity measu rementOrdered By: Dr. Martínez on 05-22-2022 Specific gravity (U) [Rel density] 1.020 1.002-1.030 [facility] Urobilinogen Auto test strip Ql (U)Ordered By: Dr. Martínez on 05-22-2022 Urobilinogen Ql (U) Normal mg/dl Normal [facility] Basophil percentageOrdered B y: Chelsea Hernandez on 05-18-2022 Basophil percentage 109 mg/dL 74-106 [facility] Basophil percentage 136 mmol/L 136-145 [facility] Basophil percentage 3.6 mmol/L 3.5-5.1 [facility] Basophil percentage 101 mmol/L 98-107 [facility] Basophil percentageon 2021 Chloride [Moles/Vol] 101 mmol/L 98-107 [facility] Work Phone: Glucose [Mass/Vol] 109 mg/dL 74-106 [facility] Work Phone: Comment on above: Fasting Glucose resu lt from 100 to 125 mg/dL suggests IMPAIRED HOMEOSTASIS per A.D.A. criteria. Potassium [Moles/Vol] 3.6 mmol/L 3.5-5.1 [facility] Work Phone: Sodium [Moles/Vol] 136 mmol/L 136-145 [facility] Work Phone: Laboratory - Chemistry and C hemistry - challengeon 05-18-2022 CO2 [Moles/Vol] 26.0 mmol/L 21.0-32.0 [facility] Work Phone: Urea nitrogen/Creatinine [Mass ratio] 31.6 mg/mg 10-20 [facility] Work Phone: Laboratory - Chemistry and C hemistry - challengeOrdered By: Chelsea Hernandez on 05-18-2022 Magnesium [Mass/Vol] 0.9 mg/dL 1.6-2.6 [facility] Comment on above: Critical Result(s) C alled at: 09:24:14 05/18/2022 by: Hillary Keen. Results read back by same. No Panel Informationon 05-18 Estimated Creatinine Clearance Calc 154.44 ml/min [facility] Work Phone: Estimated GFR (MDRD) Amer 330 mL/min >60 [facility] Work Phone: Comment on above: GFR Calc Estimated GFR (MDRD) Non-Af Amer 273 mL/min >60 [facility] Work Phone: Comment on above: Non- GFR Calc No Panel InformationOrdered By: Chelsea Hernandez on 05-18-2022 273 mL/min >60 [facility] 330 mL/min >60 [facility] 154.44 ml/min [facility] 31.6 RATIO 03-16 [facility] 0.9 mg/dL 1.6-2.6 [facility] 26.0 mmol/L 21.0-32.0 [facility] Serum or plasma calcium marilin urement (mass/volume)Ordered By: Chelsea Hernandez on 05-18-2022 Calcium [Mass/Vol] 8.6 mg/dL 8.5-10.1 [facility] Serum or plasma creatinine m easurement (mass/volume)Ordered By: Chelsea Hernandez on 05-18-2022 Creatinine [Mass/Vol] 0.28 mg/dL 0.55-1.02 [facility] Comment on above: The validity of the calculated GFR & GFRAA in patients over 70 years has not been determined. Clinical correlation is essential. Serum or plasma urea nitroge n measurement (mass/volume)Ordered By: Chelsea Hernandez on 05-18-2022 Urea nitrogen [Mass/Vol] 9 mg/dL 7-18 [facility] Thin prep Papanicolaou smear with manual screeningOrdered By: Chelsea Hernandez on 05-18-2022 Thin prep Papanicolaou smear with manual screening 9 5-15 [facility] Absolute lymphocyte countOrd ered By: Dr. Perez on 05-16-2022 Lymphocytes Auto (Unsp spec) [#/Vol] 1.33 10*3/uL 0.83-4.51 [facility] Basophil percentageOrdered B y: Dr. Perez on 05-16-2022 Basophils (Bld) [#/Vol] 5.0 10*3/uL 4.4-11.0 [facility] Basophils (Bld) [#/Vol] 2.0 10*3/uL 2.0-7.7 [facility] Basophils/100 WBC (Bld) 1.4 % 0-[address] [facility] Basophils/100 WBC (Bld) 39.2 % 47-[address] [facility] Basophils/100 WBC (Bld) 0.0 % 0-[address] [facility] Basophil percentageon 2021 Eosinophils/100 WBC (Bld) 0.0 % 0-5 [facility] Work Phone: Neutrophils (Bld) [#/Vol] 2.0 10*3/uL 2.0-7.7 [facility] Work Phone: Neutrophils/100 WBC (Bld) 39.2 % 47-70 [facility] Work Phone: WBC (Bld) [#/Vol] 5.0 10*3/uL 4.4-11.0 [facility] Work Phone: Blood erythrocytes count (nu mber/volume)Ordered By: Dr. Perez on 05-16-2022 RBC (Bld) [#/Vol] 3.27 10*6/uL 4.2-5.4 [facility] Blood hemoglobin measurement (mass/volume)Ordered By: Dr. Perez on 05-16-2022 Hemoglobin (Bld) [Mass/Vol] 9.6 g/dL 12.0-15.0 [facility] Blood lymphocytes/100 leukoc ytesOrdered By: Dr. Perez on 05-16-2022 Lymphocytes/100 WBC (Bld) 26.5 % 19-41 [facility] Blood monocytes/100 leukocyt esOrdered By: Dr. Perez on 05-16-2022 Monocytes/100 WBC (Bld) 30.9 % 0-[address] [facility] Blood platelet mean volumeOr dered By: Dr. Perez on 05-16-2022 Platelet mean volume (Bld) [Entitic vol] 10.3 fL 6.2-12.0 [facility] Determination of erythrocyte mean corpuscular volume (MCV)Ordered By: Dr. Perez on 05-16-2022 MCV (RBC) [Entitic vol] 87.2 fL 81-[address] [facility] Hematocrit Auto (Bld) [Volum e fraction]Ordered By: Dr. Perez on 05-16-2022 Hematocrit (Bld) [Volume fraction] 28.5 % 37-47 [facility] Laboratory - Hematology and Cell countson 05-16-2022 Erythrocyte distribution width (RBC) [Entitic vol] 51.5 fL 35.1-43.9 [facility] Work Phone: Erythrocyte distribution width (RBC) [Ratio] 16.2 % 11.6-14.6 [facility] Work Phone: Immature granulocytes/100 WBC (Bld) 2.000 % 0.0-0.9 [facility] Work Phone: Comment on above: IG% - Immature Granu locytes (promyelocytes, myelocytes and metamyelocytes) > 1% indicates that a LEFT SHIFT is Present. MCH (RBC) [Entitic mass] 29.4 pg 27.0-32.0 [facility] Work Phone: Nucleated RBC/100 WBC (Bld) [Ratio] 0 % 0-5 [facility] Work Phone: MCHC Auto (RBC) [Mass/Vol]Or dered By: Dr. Perez on 05-16-2022 MCHC (RBC) [Mass/Vol] 33.7 g/dL 32-36 [facility] No Panel InformationOrdered By: Dr. Perez on 05-16-2022 Atypical Lymphocytes RARE % [facility] Reactive Lymphocytes RARE [facility] 29.4 pg 27.0-32.0 [facility] 16.2 % 11.6-14.6 [facility] 51.5 fl 35.1-43.9 [facility] 2.000 % 0.0-0.9 [facility] 0 % 0-5 [facility] RARE % [facility] RARE [facility] Platelets bldOrdered By: Dr. Perez on 05-16-2022 Platelets (Bld) [#/Vol] 203 10*3/uL 150-450 [facility] Anaerobic cultureOrdered By: Kathrin Calzada on 05-14-2022 Bacteria identified Anaer cx Nom (Unsp spec) No anaerobic bacteria isolated. [facility] Bacteria identified Cx Nom ( Wound)Ordered By: Kathrin Calzada on 05-11-2022 Routine wound culture Klebsiella pneumon iae sp pneum [facility] Basophil percentageOrdered B y: Dr. Perez on 05-09-2022 Basophil percentage 6.4 g/dL 6.4-8.2 [facility] Basophil percentage 0.20 mg/dL 0.20-1.00 [facility] Basophil percentageon 2021 Bilirubin [Mass/Vol] 0.20 mg/dL 0.20-1.00 [facility] Work Phone: Comment on above: For patients on eltr ombopag therapy, use of Dimension [place] TBIL is not recommended. Protein [Mass/Vol] 6.4 g/dL 6.4-8.2 [facility] Work Phone: Blood platelet adequacy dete ction by light microscopyOrdered By: Dr. Perez on 05-09-2022 Platelets LM Ql (Bld) MOD INC ADEQ [facility] Blood platelet morphology de termination (nominal result)Ordered By: Dr. Perez on 12-13-2022 Platelet morphology finding Nom (Bld) LARGE [facility] Laboratory - Chemistry and C hemistry - challengeon 05-09-2022 ALP [Catalytic activity/Vol] 134 U/L 45-117 [facility] Work Phone: ALT [Catalytic activity/Vol] 16 U/L [facility] Work Phone: Globulin (S) [Mass/Vol] 3.7 g/dL 2.2-4.[address] [facility] Work Phone: No Panel InformationOrdered By: Dr. Perez on 05-09-2022 3.7 g/dL 2.2-4.2 [facility] 134 U/L 45-117 [facility] 16 U/L [facility] Review by pathologistOrdered By: Dr. Perez on 05-09-2022 Pathologist review Erwin (Unsp spec) [Interp] Reviewed [facility] Comment on above: Previous reported re sult: Antonietta bo Edited by: GREGORIA on 05/09/22:1240Neutrophilic leukocytosis with left shift. Normocytic anemia.Thrombocytosis.Clinical correlation necessary.Jose Ramos M.D. 05/09/22 AMENDED REPORT 05/09/22 1240 PATH REV previously reported as: Antonietta bo Serum or plasma albumin marilin urement (mass/volume)Ordered By: Dr. Perez on 05-09-2022 Albumin [Mass/Vol] 2.7 g/dL 3.2-5.0 [facility] Serum or plasma albumin/glob ulin mass ratioOrdered By: Dr. Perez on 05-09-2022 Albumin/Globulin [Mass ratio] 0.7 {ratio} 0.9-2.4 [facility] Thin prep Papanicolaou smear with manual screeningOrdered By: Dr. Perez on 05-09-2022 Thin prep Papanicolaou smear with manual screening 11 U/L 15-37 [facility] Gram stain for investigation of transfusion reactionOrdered By: Kathrin Calzada on 05-08-2022 Microscopic observation Gram stain Nom (Unsp spec) [facility] Clostridioides difficile nuc leic acid assay by PCROrdered By: Chelsea Hernandez on 05-03-2022 C. difficile DNA AMBROCIO+probe Ql (Unsp spec) [facility] Clostridium difficile detect ion by polymerase chain reactionOrdered By: Chelsea Hernandez on 05-03-2022 C. difficile DNA AMBROCIO+probe Ql (Unsp spec) [facility] C. difficile DNA AMBROCIO+probe Ql (Unsp spec) [facility] Stool gastrointestinal hemog lobin detection by immunologic methodOrdered By: Chelsea Hernandez on 05-03-2022 Lower GI hemoglobin IA Ql (Stl) [facility] Lower GI hemoglobin IA Ql (Stl) [facility] Lower GI hemoglobin IA Ql (Stl) [facility] Basophil percentageOrdered B y: Dr. Perez on 05-02-2022 Basophil percentage 1.1 mg/dL 2.5-4.9 [facility] Comment on above: Critical Result(s) C alled at: 10:42:17 05/02/2022 by: Hillary Weir to SStein. Results read back by same. Blood band neutrophil count as percentage of total leukocytesOrdered By: Dr. Perez on 05-02-2022 Band form neutrophils/100 WBC (Bld) 2 % 0-5 [facility] Blood lymphocytes/100 leukoc ytesOrdered By: Dr. Perez on 05-02-2022 Lymphocytes/100 WBC (Bld) 23 % 19-41 [facility] Blood metamyelocytes/100 madelyn kocytesOrdered By: Dr. Perez on 05-02-2022 Metamyelocytes/100 WBC (Bld) 6 % High 0-1 [facility] Blood monocytes/100 leukocyt esOrdered By: Dr. Perez on 05-02-2022 Monocytes/100 WBC (Bld) 7 % 0-[address] [facility] Blood segmented neutrophils/ [address] Perez on 05-02-2022 Segmented neutrophils/100 WBC (Bld) 60 % 47-70 [facility] Hemoglobin in reticulocytes (mass per reticulocyte)Ordered By: Chelsea Hernandez on 05-02-2022 Hemoglobin (Reticulocytes) [Entitic mass] 33.0 pg 30-35 [facility] Iron measurement (mass/mass) Ordered By: Chelsea Hernandez on 05-02-2022 Iron (Unsp spec) [Mass/Mass] 113 ug/dL 50-170 [facility] Laboratory - Hematology and Cell countsOrdered By: Dr. Perez on 05-02-2022 Myelocytes/100 WBC (Bld) 2 % High 0-0 [facility] No Panel InformationOrdered By: Chelsea Hernandez on 05-02-2022 Immature Reticulocyte Fraction 30.10 % High 3.00-15.90 [facility] Reticulocyte Count 0.67 % 0.5-1.5 [facility] Total Iron Binding Capacity 233 ug/dL Low 250-450 [facility] Vitamin B12 Level > 2000 pg/mL High 211-911 [facility] 0.67 % 0.5-1.5 [facility] 30.10 % 3.00-15.90 [facility] > 2000 pg/mL 211-911 [facility] 233 ug/dL 250-450 [facility] No Panel InformationOrdered By: Dr. Perez on 05-02-2022 2 % 0-0 [facility] RBC morphologyOrdered By: Dr Jo Perez on 05-02-2022 RBC morphology finding Nom (Bld) NORM C+C NORMAL NORM C&C [facility] Serum or plasma ferritin oanh surement (mass/volume)Ordered By: Chelsea Hernandez on 05-02-2022 Ferritin [Mass/Vol] 1065 ng/mL High 8-252 [facility] Serum or plasma iron saturat ion measurement (mass fraction)Ordered By: Chelsea Hernandez on 05-02-2022 Iron saturation [Mass fraction] 48.5 % 15.0-55.0 [facility] Total cell countOrdered By: Dr. Perez on 05-02-2022 Cells counted Molgen (Bld/Tiss) [#] 100 MANUAL DIFF [facility] Basophil percentageon 2021 Chloride [Moles/Vol] 95 mmol/L 98-107 [facility] Work Phone: Glucose [Mass/Vol] 99 mg/dL 74-106 [facility] Work Phone: [phone] Potassium [Moles/Vol] 3.2 mmol/L 3.5-5.1 [facility] Work Phone: Sodium [Moles/Vol] 130 mmol/L 136-145 [facility] Work Phone: Laboratory - Chemistry and C hemistry - challengeon 04-27-2022 CO2 [Moles/Vol] 25.0 mmol/L 21.0-32.0 [facility] Work Phone: Magnesium [Mass/Vol] 1.4 mg/dL 1.6-2.6 [facility] Work Phone: Urea nitrogen/Creatinine [Mass ratio] 71.4 mg/mg 10-20 [facility] Work Phone: No Panel Informationon 04-27 Estimated Creatinine Clearance Calc 132.59 ml/min [facility] Work Phone: Estimated GFR (MDRD) Amer 239 mL/min >60 [facility] Work Phone: Comment on above: GFR Calc Estimated GFR (MDRD) Non-Af Amer 197 mL/min >60 [facility] Work Phone: Comment on above: Non- GFR Calc Serum or plasma calcium marilin urement (mass/volume)on 04-27-2022 Calcium [Mass/Vol] 8.9 mg/dL 8.5-10.1 [facility] Work Phone: Serum or plasma creatinine m easurement (mass/volume)on 04-27-2022 Creatinine [Mass/Vol] 0.38 mg/dL 0.55-1.02 [facility] Work Phone: Comment on above: The validity of the calculated GFR & GFRAA in patients over 70 years has not been determined. Clinical correlation is essential. Serum or plasma urea nitroge n measurement (mass/volume)on 04-27-2022 Urea nitrogen [Mass/Vol] 27 mg/dL 7-18 [facility] Work Phone: Thin prep Papanicolaou smear with manual screeningon 04-27-2022 Thin prep Papanicolaou smear with manual screening 10 5-15 [facility] Work Phone: Absolute lymphocyte counton 04-24-2022 Lymphocytes Auto (Unsp spec) [#/Vol] 1.10 10*3/uL 0.83-4.51 [facility] Work Phone: Basophil percentageon 2021 Basophil percentage Not Reportable [facility] Work Phone: Bilirubin [Mass/Vol] 0.80 mg/dL 0.20-1.00 [facility] Work Phone: Comment on above: For patients on eltr ombopag therapy, use of Dimension [place] TBIL is not recommended. Neutrophils (Bld) [#/Vol] 1.4 10*3/uL 2.0-7.7 [facility] Work Phone: Protein [Mass/Vol] 6.5 g/dL 6.4-8.2 [facility] Work Phone: WBC (Bld) [#/Vol] 2.7 10*3/uL 4.4-11.0 [facility] Work Phone: Blood basophils/100 leukocyt esOrdered By: Chelsea Hernandez on 04-24-2022 Basophils/100 WBC (Bld) 2 % High 0-1 [facility] Blood eosinophils/100 leukoc ytesOrdered By: Chelsea Hernandez on 04-24-2022 Eosinophils/100 WBC (Bld) 1 % 0-5 [facility] Blood erythrocytes count (nu mber/volume)on 04-24-2022 RBC (Bld) [#/Vol] 2.98 10*6/uL 4.2-5.4 [facility] Work Phone: Blood hemoglobin measurement (mass/volume)on 04-24-2022 Hemoglobin (Bld) [Mass/Vol] 8.5 g/dL 12.0-15.0 [facility] Work Phone: Blood lymphocytes/100 leukoc yteson 04-24-2022 Lymphocytes/100 WBC (Bld) 41 % 19-41 [facility] Work Phone: [phone] Blood metamyelocytes/100 madelyn kocyteson 04-24-2022 Metamyelocytes/100 WBC (Bld) 3 % 0-1 [facility] Work Phone: Blood monocytes/100 leukocyt eson 04-24-2022 Monocytes/100 WBC (Bld) 1 % 0-[address] [facility] Work Phone: Blood platelet adequacy dete ction by light microscopyon 04-24-2022 Platelets LM Ql (Bld) [facility] Work [facility]: Blood platelet mean volumeon 04-24-2022 Platelet mean volume (Bld) [Entitic vol] 10.4 fL 6.2-12.0 [facility] Work Phone: Blood segmented neutrophils/ 100 leukocyteson 04-24-2022 Segmented neutrophils/100 WBC (Bld) 52 % 47-70 [facility] Work Phone: Determination of erythrocyte mean corpuscular volume (MCV)on 04-24-2022 MCV (RBC) [Entitic vol] 84.6 fL 81-[address] [facility] Work Phone: Hematocrit Auto (Bld) [Volum e fraction]on 04-24-2022 Hematocrit (Bld) [Volume fraction] 25.2 % 37-47 [facility] Work Phone: Laboratory - Chemistry and C hemistry - challengeon 04-24-2022 ALP [Catalytic activity/Vol] 130 U/L 45-117 [facility] Work Phone: ALT [Catalytic activity/Vol] 24 U/L 13-56 [facility] Work Phone: Globulin (S) [Mass/Vol] 3.4 g/dL 2.2-4.[address] [facility] Work Phone: Laboratory - Hematology and Cell countson 04-24-2022 Erythrocyte distribution width (RBC) [Entitic vol] 51.5 fL 35.1-43.9 [facility] Work Phone: Erythrocyte distribution width (RBC) [Ratio] 17.0 % 11.6-14.6 [facility] Work Phone: MCH (RBC) [Entitic mass] 28.5 pg 27.0-32.0 [facility] Work Phone: MCHC Auto (RBC) [Mass/Vol]on 04-24-2022 MCHC (RBC) [Mass/Vol] 33.7 g/dL 32-36 [facility] Work Phone: Platelets bldon 04-24-2022 Platelets (Bld) [#/Vol] 85 10*3/uL 150-[address] [facility] Work Phone: RBC morphologyon 04-24-2022 RBC morphology finding Nom (Bld) NORM C+C NORMAL NORM C&C [facility] Work Phone: Review by pathologiston 03-29 Pathologist review Erwin (Unsp spec) [Interp] Reviewed [facility] Work Phone: Comment on above: Previous reported re sult: Antonietta bo Edited by: RGOOD on 04/25/22:1112Pancytopenia.Leukopenia and Neutropenia.Normocytic anemia.ThrombocytopeniaClinical correlation necessary.Jose Ramos M.D. 04/25/22 AMENDED REPORT 04/25/22 1112 PATH REV previously reported as: Antonietta bo Serum or plasma albumin marilin urement (mass/volume)on 04-24-2022 Albumin [Mass/Vol] 3.1 g/dL 3.2-5.0 [facility] Work Phone: Serum or plasma albumin/glob ulin mass ratioon 04-24-2022 Albumin/Globulin [Mass ratio] 0.9 {ratio} 0.9-2.4 [facility] Work Phone: Thin prep Papanicolaou smear with manual screeningon 04-24-2022 Thin prep Papanicolaou smear with manual screening 23 U/L 15-37 [facility] Work Phone: Total cell counton 2 Cells counted Molgen (Bld/Tiss) [#] 100 MANUAL DIFF [facility] Work Phone: Basophil percentageon 2021 Basophils/100 WBC (Bld) 0.3 % 0-[address] [facility] Work Phone: Eosinophils/100 WBC (Bld) 0.0 % 0-5 [facility] Work Phone: Blood lymphocytes/100 leukoc yteson 04-18-2022 Lymphocytes/100 WBC (Bld) 13.2 % 19-41 [facility] Work Phone: Blood monocytes/100 leukocyt eson 04-18-2022 Monocytes/100 WBC (Bld) 1.5 % 0-[address] [facility] Work Phone: Laboratory - Hematology and Cell countson 04-18-2022 Immature granulocytes/100 WBC (Bld) 1.300 % 0.0-0.9 [facility] Work Phone: Comment on above: IG% - Immature Granu locytes (promyelocytes, myelocytes and metamyelocytes) > 1% indicates that a LEFT SHIFT is Present. Nucleated RBC/100 WBC (Bld) [Ratio] 0 % 0-5 [facility] Work Phone: Blood manual differential co mment interpretation (narrative result)Ordered By: Dr. Perez on 04-11-2022 Manual differential comment Erwin (Bld) [Interp] COMMENT [facility] Comment on above: NEUTROPHILIA.THROMBO CYTOSIS. Iron measurement (mass/mass) on 04-11-2022 Iron (Unsp spec) [Mass/Mass] 64 ug/dL 50-170 [facility] Work Phone: No Panel Informationon 04-11 Total Iron Binding Capacity 205 ug/dL 250-450 [facility] Work Phone: Vitamin B12 Level > 2000 pg/mL 211-911 [facility] Work Phone: [phone] Serum or plasma ferritin oanh surement (mass/volume)on 04-11-2022 Ferritin [Mass/Vol] 507 ng/mL 8-252 [facility] Work Phone: Serum or plasma folate measu rement (mass/volume)Ordered By: Chelsea Hernandez on 04-11-2022 Folate [Mass/Vol] 9.20 ng/mL 3.1-55.4 [facility] Serum or plasma iron saturat ion measurement (mass fraction)on 04-11-2022 Iron saturation [Mass fraction] 31.2 % 15.0-55.0 [facility] Work Phone: Anaerobic cultureOrdered By: Kathrin Calzada on 04-10-2022 Bacteria identified Anaer cx Nom (Unsp spec) No growth in 5 days. [facility] Routine wound cultureOrdered By: Kathrin Calzada on 04-09-2022 Bacteria identified Cx Nom (Wound) No growth aerobically. [facility] Basophil percentageon 2021 Basophil percentage 2.5 mg/dL 2.5-4.9 [facility] Work Phone: Gram stain for investigation of transfusion reactionOrdered By: Kathrin Calzada on 04-06-2022 Microscopic observation Gram stain Nom (Unsp spec) [facility] Blood band neutrophil count as percentage of total leukocyteson 04-04-2022 Band form neutrophils/100 WBC (Bld) 6 % 0-5 [facility] Work Phone: Laboratory - Hematology and Cell countson 04-04-2022 Myelocytes/100 WBC (Bld) 3 % 0-0 [facility] Work Phone: Absolute lymphocyte countOrd ered By: Dr. Ashton on 03-26-2022 Lymphocytes Auto (Unsp spec) [#/Vol] 0.89 10*3/uL 0.83-4.51 [facility] Basophil percentageOrdered B y: Dr. Ashton on 03-26-2022 Basophil percentage 162 mg/dL 74-106 [facility] Basophil percentage 7.3 g/dL 6.4-8.2 [facility] Basophil percentage 0.90 mg/dL 0.20-1.00 [facility] Basophil percentage 130 mmol/L 136-145 [facility] Basophil percentage 2.8 mmol/L 3.5-5.1 [facility] Basophil percentage 91 mmol/L 98-107 [facility] Basophils (Bld) [#/Vol] 4.3 10*3/uL 4.4-11.0 [facility] Basophils (Bld) [#/Vol] 2.8 10*3/uL 2.0-7.7 [facility] Basophils/100 WBC (Bld) 0.2 % 0-[address] [facility] Basophils/100 WBC (Bld) 66.0 % 47-[address] [facility] Basophils/100 WBC (Bld) 5.3 % 0-[address] [facility] Basophil percentageon 03-26- 2021 Bilirubin [Mass/Vol] 0.90 mg/dL 0.20-1.00 [facility] Work Phone: Comment on above: For patients on eltr ombopag therapy, use of Dimension [place] TBIL is not recommended. Chloride [Moles/Vol] 91 mmol/L 98-107 [facility] Work Phone: Eosinophils/100 WBC (Bld) 5.3 % 0-5 [facility] Work Phone: Glucose [Mass/Vol] 162 mg/dL 74-106 [facility] Work Phone: Comment on above: Fasting Glucose resu lt greater than or equal to 126 mg/dL suggests DIABETES MELLITUS per A.D.A. criteria. Neutrophils (Bld) [#/Vol] 2.8 10*3/uL 2.0-7.7 [facility] Work Phone: [phone] Neutrophils/100 WBC (Bld) 66.0 % 47-70 [facility] Work Phone: Potassium [Moles/Vol] 2.8 mmol/L 3.5-5.1 [facility] Work Phone: Protein [Mass/Vol] 7.3 g/dL 6.4-8.2 [facility] Work Phone: Sodium [Moles/Vol] 130 mmol/L 136-145 [facility] Work Phone: WBC (Bld) [#/Vol] 4.3 10*3/uL 4.4-11.0 [facility] Work Phone: Blood erythrocytes count (nu mber/volume)Ordered By: Dr. Ashton on 03-26-2022 RBC (Bld) [#/Vol] 4.39 10*6/uL 4.2-5.4 [facility] Blood hemoglobin measurement (mass/volume)Ordered By: Dr. Ashton on 03-26-2022 Hemoglobin (Bld) [Mass/Vol] 12.7 g/dL 12.0-15.0 [facility] Blood lymphocytes/100 leukoc ytesOrdered By: Dr. Ashton on 03-26-2022 Lymphocytes/100 WBC (Bld) 20.6 % 19-41 [facility] Blood manual differential co mment interpretation (narrative result)Ordered By: Dr. Ashton on 03-26-2022 Manual differential comment Erwin (Bld) [Interp] SCANNED [facility] Blood monocytes/100 leukocyt esOrdered By: [address] Ashton on 03-26-2022 Monocytes/100 WBC (Bld) 5.8 % 0-[address] [facility] Blood platelet mean volumeOr dered By: Dr. Ashton on 03-26-2022 Platelet mean volume (Bld) [Entitic vol] 11.0 fL 6.2-12.0 [facility] Determination of erythrocyte mean corpuscular volume (MCV)Ordered By: Dr. Ashton on 03-26-2022 MCV (RBC) [Entitic vol] 83.4 fL 81-[address] [facility] Hematocrit Auto (Bld) [Volum e fraction]Ordered By: Dr. Ashton on 03-26-2022 Hematocrit (Bld) [Volume fraction] 36.6 % 37-47 [facility] Laboratory - Chemistry and C hemistry - challengeon 03-26-2022 ALP [Catalytic activity/Vol] 146 U/L 45-117 [facility] Work Phone: [phone] ALT [Catalytic activity/Vol] 41 U/L 13-56 [facility] Work Phone: CO2 [Moles/Vol] 29.0 mmol/L 21.0-32.0 [facility] Work Phone: Globulin (S) [Mass/Vol] 3.5 g/dL 2.2-4.[address] [facility] Work Phone: Natriuretic peptide B (Bld) [Mass/Vol] 6.8 pg/mL 0-100 [facility] Work Phone: Urea nitrogen/Creatinine [Mass ratio] 28.8 mg/mg 10-20 [facility] Work Phone: Laboratory - Hematology and Cell countson 03-26-2022 Erythrocyte distribution width (RBC) [Entitic vol] 43.6 fL 35.1-43.9 [facility] Work Phone: Erythrocyte distribution width (RBC) [Ratio] 14.4 % 11.6-14.6 [facility] Work Phone: Immature granulocytes/100 WBC (Bld) 2.100 % 0.0-0.9 [facility] Work Phone: Comment on above: IG% - Immature Granu locytes (promyelocytes, myelocytes and metamyelocytes) > 1% indicates that a LEFT SHIFT is Present. MCH (RBC) [Entitic mass] 28.9 pg 27.0-32.0 [facility] Work Phone: Nucleated RBC/100 WBC (Bld) [Ratio] 0 % 0-5 [facility] Work Phone: MCHC Auto (RBC) [Mass/Vol]Or dered By: Dr. Ashton on 03-26-2022 MCHC (RBC) [Mass/Vol] 34.7 g/dL 32-36 [facility] No Panel Informationon 03-26 Estimated Creatinine Clearance Calc 91.61 ml/min [facility] Work Phone: Estimated GFR (MDRD) Amer 143 mL/min >60 [facility] Work Phone: Comment on above: GFR Calc Estimated GFR (MDRD) Non-Af Amer 118 mL/min >60 [facility] Work Phone: Comment on above: Non- GFR Calc Troponin I High Sensitivity 7 pg/mL 3.0-54.0 [facility] Work Phone: Comment on above: Please Note: New Monet t Units and Gender Specific Reference Ranges. For more information see Policy Stat Procedure [place] High Sensitivity Troponin (TNIH) and attachments. No Panel InformationOrdered By: Dr. Ashton on 03-26-2022 28.9 pg 27.0-32.0 [facility] 14.4 % 11.6-14.6 [facility] 43.6 fl 35.1-43.9 [facility] 2.100 % 0.0-0.9 [facility] 0 % 0-5 [facility] 118 mL/min >60 [facility] 143 mL/min >60 [facility] 91.61 ml/min [facility] 28.8 RATIO 10-20 [facility] 3.5 g/dL 2.2-4.2 [facility] 7 pg/mL 3.0-54.0 [facility] 146 U/L 45-117 [facility] 41 U/L 13-56 [facility] 29.0 mmol/L 21.0-32.0 [facility] 6.8 pg/mL 0-100 [facility] Platelets bldOrdered By: Dr. Ashton on 03-26-2022 Platelets (Bld) [#/Vol] 175 10*3/uL 150-450 [facility] Serum or plasma albumin marilin urement (mass/volume)Ordered By: Dr. Ashton on 03-26-2022 Albumin [Mass/Vol] 3.8 g/dL 3.2-5.0 [facility] Serum or plasma albumin/glob ulin mass ratioOrdered By: Dr. Ashton on 03-26-2022 Albumin/Globulin [Mass ratio] 1.1 {ratio} 0.9-2.4 [facility] Serum or plasma calcium marilin urement (mass/volume)Ordered By: Dr. Ashton on 03-26-2022 Calcium [Mass/Vol] 9.3 mg/dL 8.5-10.1 [facility] Serum or plasma creatinine m easurement (mass/volume)Ordered By: Dr. Ashton on 03-26-2022 Creatinine [Mass/Vol] 0.59 mg/dL 0.55-1.02 [facility] Comment on above: The validity of the calculated GFR & GFRAA in patients over 70 years has not been determined. Clinical correlation is essential. Serum or plasma urea nitroge n measurement (mass/volume)Ordered By: Dr. Ashton on 03-26-2022 Urea nitrogen [Mass/Vol] 17 mg/dL 7-18 [facility] Thin prep Papanicolaou smear with manual screeningOrdered By: Dr. Ashton on 03-26-2022 Thin prep Papanicolaou smear with manual screening 21 U/L 15-37 [facility] Thin prep Papanicolaou smear with manual screening 10 5-15 [facility] Absolute lymphocyte countOrd ered By: Dr. Hastings on 03-22-2022 Lymphocytes Auto (Unsp spec) [#/Vol] 0.33 10*3/uL 0.83-4.51 [facility] Basophil percentageOrdered B y: Dr. Hastings on 03-22-2022 Basophil percentage Not Reportable [facility] Basophil percentage 153 mg/dL 74-106 [facility] Basophil percentage 141 mmol/L 136-145 [facility] Basophil percentage 3.1 mmol/L 3.5-5.1 [facility] Basophil percentage 107 mmol/L 98-107 [facility] Basophils (Bld) [#/Vol] 32.9 10*3/uL 4.4-11.0 [facility] Basophils (Bld) [#/Vol] 31.2 10*3/uL 2.0-7.7 [facility] Basophil percentageon 2021 Chloride [Moles/Vol] 107 mmol/L 98-107 [facility] Work Phone: Glucose [Mass/Vol] 153 mg/dL 74-106 [facility] Work Phone: Comment on above: Fasting Glucose resu lt greater than or equal to 126 mg/dL suggests DIABETES MELLITUS per A.D.A. criteria. Neutrophils (Bld) [#/Vol] 31.2 10*3/uL 2.0-7.7 [facility] Work Phone: Potassium [Moles/Vol] 3.1 mmol/L 3.5-5.1 [facility] Work Phone: Sodium [Moles/Vol] 141 mmol/L 136-145 [facility] Work Phone: WBC (Bld) [#/Vol] 32.9 10*3/uL 4.4-11.0 [facility] Work Phone: Comment on above: CRITICAL VALUE VERIF IED. CALLED TO LORNA GUZMAN03/22/22 0824 Sridevi Erickson.RESULTS READ BACK BY SAME . Blood band neutrophil count as percentage of total leukocytesOrdered By: Dr. Hastigns on 03-22-2022 Band form neutrophils/100 WBC (Bld) 4 % 0-5 [facility] Blood erythrocytes count (nu mber/volume)Ordered By: Dr. Hastings on 03-22-2022 RBC (Bld) [#/Vol] 3.80 10*6/uL 4.2-5.4 [facility] Blood hemoglobin measurement (mass/volume)Ordered By: Dr. Hastings on 03-22-2022 Hemoglobin (Bld) [Mass/Vol] 10.9 g/dL 12.0-15.0 [facility] Blood lymphocytes/100 leukoc ytesOrdered By: Dr. Hastings on 03-22-2022 Lymphocytes/100 WBC (Bld) 1 % 19-41 [facility] Blood metamyelocytes/100 madelyn kocytesOrdered By: Dr. Hastings on 03-22-2022 Metamyelocytes/100 WBC (Bld) 1 % 0-1 [facility] Blood platelet adequacy dete ction by light microscopyOrdered By: Dr. Hastings on 03-22-2022 Platelets LM Ql (Bld) ADEQUATE ADEQ [facility] Blood platelet mean volumeOr dered By: Dr. Hastings on 03-22-2022 Platelet mean volume (Bld) [Entitic vol] 9.2 fL 6.2-12.0 [facility] Blood segmented neutrophils/ [address]: [address] Hastings on 03-22-2022 Segmented neutrophils/100 WBC (Bld) 91 % 47-70 [facility] Determination of erythrocyte mean corpuscular volume (MCV)Ordered By: Dr. Hastings on 03-22-2022 MCV (RBC) [Entitic vol] 86.1 fL 81-[address] [facility] Hematocrit Auto (Bld) [Volum e fraction]Ordered By: Dr. Hastings on 03-22-2022 Hematocrit (Bld) [Volume fraction] 32.7 % 37-47 [facility] Influenza virus A and B and SARS-CoV-2 (COVID-19) Ag panel - Upper respiratory specimOrdered By: Dr. Hastings on 03-22-2022 SARS-CoV-2 (COVID-19) RNA AMBROCIO+probe Ql (Resp) [facility] Laboratory - Chemistry and C hemistry - challengeon 03-22-2022 CO2 [Moles/Vol] 26.0 mmol/L 21.0-32.0 [facility] Work Phone: Natriuretic peptide B (Bld) [Mass/Vol] 175.3 pg/mL 0-100 [facility] Work Phone: Urea nitrogen/Creatinine [Mass ratio] 29.2 mg/mg 10-20 [facility] Work Phone: Laboratory - Hematology and Cell countson 03-22-2022 Erythrocyte distribution width (RBC) [Entitic vol] 47.1 fL 35.1-43.9 [facility] Work Phone: [phone] Erythrocyte distribution width (RBC) [Ratio] 15.5 % 11.6-14.6 [facility] Work Phone: [phone] MCH (RBC) [Entitic mass] 28.7 pg 27.0-32.0 [facility] Work Phone: Myelocytes/100 WBC (Bld) 3 % 0-0 [facility] Work Phone: MCHC Auto (RBC) [Mass/Vol]Or dered By: Dr. Hastings on 03-22-2022 MCHC (RBC) [Mass/Vol] 33.3 g/dL 32-36 [facility] No Panel Informationon 03-22 Estimated Creatinine Clearance Calc 114.96 ml/min [facility] Work Phone: Estimated GFR (MDRD) Amer 167 mL/min >60 [facility] Work Phone: Comment on above: GFR Calc Estimated GFR (MDRD) Non-Af Amer 138 mL/min >60 [facility] Work Phone: Comment on above: Non- GFR Calc Troponin I High Sensitivity 11 pg/mL 3.0-54.0 [facility] Work Phone: Comment on above: Please Note: New Monet t Units and Gender Specific Reference Ranges. For more information see Policy Stat Procedure [place] High Sensitivity Troponin (TNIH) and attachments. No Panel InformationOrdered By: Dr. Hastings on 03-22-2022 28.7 pg 27.0-32.0 [facility] 15.5 % 11.6-14.6 [facility] 47.1 fl 35.1-43.9 [facility] 3 % 0-0 [facility] 138 mL/min >60 [facility] 167 mL/min >60 [facility] 114.96 ml/min [facility] 29.2 RATIO 10-20 [facility] 11 pg/mL 3.0-54.0 [facility] 26.0 mmol/L 21.0-32.0 [facility] 175.3 pg/mL 0-100 [facility] Platelets bldOrdered By: Dr. Hastings on 03-22-2022 Platelets (Bld) [#/Vol] 637 10*3/uL 150-450 [facility] RBC morphologyOrdered By: Dr Jo Hastings on 03-22-2022 RBC morphology finding Nom (Bld) NORM C+C NORMAL NORM C&C [facility] Review by pathologiston 02-26 Pathologist review Erwin (Unsp spec) [Interp] Antonietta bo [facility] Work Phone: Review by pathologistOrdered By: Dr. Hastings on 03-22-2022 Pathologist review Erwin (Unsp spec) [Interp] Reviewed [facility] Comment on above: Previous reported re sult: Antonietta bo Edited by: RGOOD on 03/24/22:1538Neutrophilic leukocytosis.Normocytic anemia.Moderate Thrombocytosis.Clinical correlation necessary.Cecilio Jones D.O. 03/24/22 AMENDED REPORT 03/24/22 1538 PATH REV previously reported as: September foll Serum or plasma calcium marilin urement (mass/volume)Ordered By: Dr. Hastings on 03-22-2022 Calcium [Mass/Vol] 8.7 mg/dL 8.5-10.1 [facility] Serum or plasma creatinine m easurement (mass/volume)Ordered By: Dr. Hastings on 03-22-2022 Creatinine [Mass/Vol] 0.51 mg/dL 0.55-1.02 [facility] Comment on above: The validity of the calculated GFR & GFRAA in patients over 70 years has not been determined. Clinical correlation is essential. Serum or plasma urea nitroge n measurement (mass/volume)Ordered By: Dr. Hastings on 03-22-2022 Urea nitrogen [Mass/Vol] 15 mg/dL 7-18 [facility] Thin prep Papanicolaou smear with manual screeningOrdered By: Dr. Hastings on 03-22-2022 Thin prep Papanicolaou smear with manual screening 8 5-15 [facility] Total cell countOrdered By: Dr. Hastings on 03-22-2022 Cells counted Molgen (Bld/Tiss) [#] 100 MANUAL DIFF [facility] Absolute lymphocyte counton 03-21-2022 Lymphocytes Auto (Unsp spec) [#/Vol] 2.16 10*3/uL 0.83-4.51 [facility] Work Phone: Basophil percentageon 2021 Basophils/100 WBC (Bld) 0.2 % 0-[address] [facility] Work Phone: Bilirubin [Mass/Vol] 0.20 mg/dL 0.20-1.00 [facility] Work Phone: Comment on above: For patients on eltr ombopag therapy, use of Dimension [place] TBIL is not recommended. Chloride [Moles/Vol] 106 mmol/L 98-107 [facility] Work Phone: Eosinophils/100 WBC (Bld) 0.0 % 0-5 [facility] Work Phone: [phone] Glucose [Mass/Vol] 153 mg/dL 74-106 [facility] Work Phone: Comment on above: Fasting Glucose resu lt greater than or equal to 126 mg/dL suggests DIABETES MELLITUS per A.D.A. criteria. Neutrophils (Bld) [#/Vol] 26.7 10*3/uL 2.0-7.7 [facility] Work Phone: [phone] Neutrophils/100 WBC (Bld) 87.9 % 47-70 [facility] Work Phone: Potassium [Moles/Vol] 3.5 mmol/L 3.5-5.1 [facility] Work Phone: Protein [Mass/Vol] 6.6 g/dL 6.4-8.2 [facility] Work Phone: Sodium [Moles/Vol] 139 mmol/L 136-145 [facility] Work Phone: WBC (Bld) [#/Vol] 30.4 10*3/uL 4.4-11.0 [facility] Work Phone: Comment on above: RESULTS CALLED TO ON Silverio MOSQUEDA RN 03/21/22 0910 Tresa Camargo.REPORT READ BACK BY SAME. Blood erythrocytes count (nu mber/volume)on 03-21-2022 RBC (Bld) [#/Vol] 3.74 10*6/uL 4.2-5.4 [facility] Work Phone: Blood hemoglobin measurement (mass/volume)on 03-21-2022 Hemoglobin (Bld) [Mass/Vol] 10.6 g/dL 12.0-15.0 [facility] Work Phone: [phone] Blood lymphocytes/100 leukoc yteson 03-21-2022 Lymphocytes/100 WBC (Bld) 7.1 % 19-41 [facility] Work Phone: [phone] Blood manual differential co mment interpretation (narrative result)on 03-21-2022 Manual differential comment Erwin (Bld) [Interp] SCANNED [facility] Work Phone: Blood monocytes/100 leukocyt eson 03-21-2022 Monocytes/100 WBC (Bld) 1.8 % 0-[address] [facility] Work Phone: [phone] Blood platelet mean volumeon 03-21-2022 Platelet mean volume (Bld) [Entitic vol] 8.9 fL 6.2-12.0 [facility] Work Phone: Determination of erythrocyte mean corpuscular volume (MCV)on 03-21-2022 MCV (RBC) [Entitic vol] 84.2 fL 81-[address] [facility] Work Phone: Hematocrit Auto (Bld) [Volum e fraction]on 03-21-2022 Hematocrit (Bld) [Volume fraction] 31.5 % 37-47 [facility] Work Phone: Laboratory - Chemistry and C hemistry - challengeon 03-21-2022 ALP [Catalytic activity/Vol] 113 U/L 45-117 [facility] Work Phone: ALT [Catalytic activity/Vol] 18 U/L 13-56 [facility] Work Phone: CO2 [Moles/Vol] 24.0 mmol/L 21.0-32.0 [facility] Work Phone: Globulin (S) [Mass/Vol] 3.5 g/dL 2.2-4.[address] [facility] Work Phone: Magnesium [Mass/Vol] 1.9 mg/dL [facility].6[facility] Urea nitrogen/Creatinine [Mass ratio] 19.8 mg/mg 10-20 [facility] Work Phone: Laboratory - Hematology and Cell countson 03-21-2022 Erythrocyte distribution width (RBC) [Entitic vol] 44.3 fL 35.1-43.9 [facility] Work Phone: Erythrocyte distribution width (RBC) [Ratio] 14.8 % 11.6-14.6 [facility] Work Phone: Immature granulocytes/100 WBC (Bld) 3.000 % 0.0-0.9 [facility] Work Phone: Comment on above: IG% - Immature Granu locytes (promyelocytes, myelocytes and metamyelocytes) > 1% indicates that a LEFT SHIFT is Present. MCH (RBC) [Entitic mass] 28.3 pg 27.0-32.0 [facility] Work Phone: Nucleated RBC/100 WBC (Bld) [Ratio] 0 % 0-5 [facility] Work Phone: MCHC Auto (RBC) [Mass/Vol]on 03-21-2022 MCHC (RBC) [Mass/Vol] 33.7 g/dL 32-36 [facility] Work Phone: No Panel Informationon 03-21 Estimated Creatinine Clearance Calc 137.65 ml/min [facility] Work Phone: Estimated GFR (MDRD) Amer 221 mL/min >60 [facility] Work Phone: Comment on above: GFR Calc Estimated GFR (MDRD) Non-Af Amer 183 mL/min >60 [facility] Work Phone: Comment on above: Non- GFR Calc Platelets bldon 03-21-2022 Platelets (Bld) [#/Vol] 578 10*3/uL 150-450 [facility] Work Phone: Review by pathologiston 02-26 Pathologist review Erwin (Unsp spec) [Interp] September betzy [facility] Work Phone: Pathologist review Erwin (Unsp spec) [Interp] Reviewed [facility] Work Phone: Comment on above: Previous reported re sult: Antonietta bo Edited by: RGOTIANNA on 03/22/22:1242Neutrophilic leukocytosis.Normocytic anemia.Thrombocytosis consistent with proliferative disorder.Cecilio Jones D.O. 03/22/22 AMENDED REPORT 03/22/22 1242 PATH REV previously reported as: September Serum or plasma albumin marilin urement (mass/volume)on 03-21-2022 Albumin [Mass/Vol] 3.1 g/dL 3.2-5.0 [facility] Work Phone: Serum or plasma albumin/glob ulin mass ratioon 03-21-2022 Albumin/Globulin [Mass ratio] 0.9 {ratio} 0.9-2.4 [facility] Work Phone: Serum or plasma calcium marilin urement (mass/volume)on 03-21-2022 Calcium [Mass/Vol] 9.1 mg/dL 8.5-10.1 [facility] Work Phone: Serum or plasma creatinine m easurement (mass/volume)on 03-21-2022 Creatinine [Mass/Vol] 0.40 mg/dL 0.55-1.02 [facility] Work Phone: Comment on above: The validity of the calculated GFR & GFRAA in patients over 70 years has not been determined. Clinical correlation is essential. Serum or plasma urea nitroge n measurement (mass/volume)on 03-21-2022 Urea nitrogen [Mass/Vol] 8 mg/dL 7-18 [facility] Work Phone: Thin prep Papanicolaou smear with manual screeningon 03-21-2022 Thin prep Papanicolaou smear with manual screening 14 U/L 15-37 [facility] Work Phone: Thin prep Papanicolaou smear with manual screening 9 5-15 [facility] Work Phone: [phone] Absolute lymphocyte counton 03-14-2022 Lymphocytes Auto (Unsp spec) [#/Vol] 5.20 10*3/uL 0.83-4.51 [facility] Work Phone: Basophil percentageon 2021 Basophil percentage Not Reportable [facility] Work Phone: Bilirubin [Mass/Vol] 0.20 mg/dL 0.20-1.00 [facility] Work Phone: Comment on above: For patients on eltr ombopag therapy, use of Dimension [place] TBIL is not recommended. Chloride [Moles/Vol] 100 mmol/L 98-107 [facility] Work Phone: Glucose [Mass/Vol] 172 mg/dL 74-106 [facility] Work Phone: Comment on above: Fasting Glucose resu lt greater than or equal to 126 mg/dL suggests DIABETES MELLITUS per A.D.A. criteria. Neutrophils (Bld) [#/Vol] 16.7 10*3/uL 2.0-7.7 [facility] Work Phone: Potassium [Moles/Vol] 2.1 mmol/L 3.5-5.1 [facility] Work Phone: Comment on above: Critical Result(s) C alled at: 10:11:12 03/14/2022 by: Hillary Champion. Results read back by same. Protein [Mass/Vol] 6.6 g/dL 6.4-8.2 [facility] Work Phone: Sodium [Moles/Vol] 137 mmol/L 136-145 [facility] Work Phone: WBC (Bld) [#/Vol] 23.6 10*3/uL 4.4-11.0 [facility] Work Phone: Blood erythrocytes count (nu mber/volume)on 03-14-2022 RBC (Bld) [#/Vol] 4.69 10*6/uL 4.2-5.4 [facility] Work Phone: Blood hemoglobin measurement (mass/volume)on 03-14-2022 Hemoglobin (Bld) [Mass/Vol] 13.2 g/dL 12.0-15.0 [facility] Work Phone: Blood lymphocytes/100 leukoc yteson 03-14-2022 Lymphocytes/100 WBC (Bld) 22 % 19-41 [facility] Work Phone: Blood monocytes/100 leukocyt eson 03-14-2022 Monocytes/100 WBC (Bld) 6 % 0-[address] [facility] Work Phone: Blood platelet adequacy dete ction by light microscopyon 03-14-2022 Platelets LM Ql (Bld) ADEQUATE ADEQ [facility] Work Phone: Blood platelet mean volumeon 03-14-2022 Platelet mean volume (Bld) [Entitic vol] 9.3 fL 6.2-12.0 [facility] Work Phone: Blood segmented neutrophils/ 100 leukocyteson 03-14-2022 Segmented neutrophils/100 WBC (Bld) 71 % 47-70 [facility] Work Phone: [phone] Determination of erythrocyte mean corpuscular volume (MCV)on 03-14-2022 MCV (RBC) [Entitic vol] 81.7 fL 81-[address] [facility] Work Phone: Hematocrit Auto (Bld) [Volum e fraction]on 03-14-2022 Hematocrit (Bld) [Volume fraction] 38.3 % 37-47 [facility] Work Phone: Laboratory - Chemistry and C hemistry - challengeon 03-14-2022 ALP [Catalytic activity/Vol] 145 U/L 45-117 [facility] Work Phone: [phone] ALT [Catalytic activity/Vol] 32 U/L 13-56 [facility] Work Phone: CO2 [Moles/Vol] 27.0 mmol/L 21.0-32.0 [facility] Work Phone: Globulin (S) [Mass/Vol] 3.3 g/dL 2.2-4.[address] [facility] Work Phone: Magnesium [Mass/Vol] 1.8 mg/dL 1.6-2.6 [facility] Work Phone: Urea nitrogen/Creatinine [Mass ratio] 13.2 mg/mg 10-20 [facility] Work Phone: Laboratory - Hematology and Cell countson 03-14-2022 Erythrocyte distribution width (RBC) [Entitic vol] 40.2 fL 35.1-43.9 [facility] Work Phone: Erythrocyte distribution width (RBC) [Ratio] 13.8 % 11.6-14.6 [facility] Work Phone: MCH (RBC) [Entitic mass] 28.1 pg 27.0-32.0 [facility] Work Phone: Myelocytes/100 WBC (Bld) 1 % 0-0 [facility] Work Phone: MCHC Auto (RBC) [Mass/Vol]on 03-14-2022 MCHC (RBC) [Mass/Vol] 34.5 g/dL 32-36 [facility] Work Phone: No Panel Informationon 03-14 Estimated Creatinine Clearance Calc 90.26 ml/min [facility] Work Phone: Estimated GFR (MDRD) Amer 138 mL/min >60 [facility] Work Phone: Comment on above: GFR Calc Estimated GFR (MDRD) Non-Af Amer 114 mL/min >60 [facility] Work Phone: Comment on above: Non- GFR Calc Platelets bldon 03-14-2022 Platelets (Bld) [#/Vol] 260 10*3/uL 150-450 [facility] Work Phone: RBC morphologyon 03-14-2022 RBC morphology finding Nom (Bld) NORM C+C NORMAL NORM C&C [facility] Work Phone: [phone] Review by pathologiston 02-25 Pathologist review Erwin (Unsp spec) [Interp] Reviewed [facility] Work Phone: Comment on above: Previous reported re sult: Antonietta bo Edited by: GREGORIA on 03/15/22:0938Neutrophilic leukocytosis with left shift. Clinical correlation necessary.Jose Ramos M.D. 03/15/22 AMENDED REPORT 03/15/22 0938 PATH REV previously reported as: September Serum or plasma albumin marilin urement (mass/volume)on 03-14-2022 Albumin [Mass/Vol] 3.3 g/dL 3.2-5.0 [facility] Work Phone: Serum or plasma albumin/glob ulin mass ratioon 03-14-2022 Albumin/Globulin [Mass ratio] 1.0 {ratio} 0.9-2.4 [facility] Work Phone: Serum or plasma calcium marilin urement (mass/volume)on 03-14-2022 Calcium [Mass/Vol] 8.6 mg/dL 8.5-10.1 [facility] Work Phone: Serum or plasma creatinine m easurement (mass/volume)on 03-14-2022 Creatinine [Mass/Vol] 0.61 mg/dL 0.55-1.02 [facility] Work Phone: Comment on above: The validity of the calculated GFR & GFRAA in patients over 70 years has not been determined. Clinical correlation is essential. Serum or plasma urea nitroge n measurement (mass/volume)on 03-14-2022 Urea nitrogen [Mass/Vol] 8 mg/dL 12-12 [facility] Work Phone: Thin prep Papanicolaou smear with manual screeningon 03-14-2022 Thin prep Papanicolaou smear with manual screening 17 U/L 15-37 [facility] Work Phone: Thin prep Papanicolaou smear with manual screening 10 5-15 [facility] Work Phone: Total cell counton 2 Cells counted Molgen (Bld/Tiss) [#] 100 MANUAL DIFF [facility] Work Phone: Bacteria identified Cx Nom ( U)Ordered By: Dr. Whittington on 03-10-2022 Culture, urine Positive [facility] Basophil percentageon 2021 Basophils/100 WBC (Bld) 0.6 % 0-[address] [facility] Work Phone: Eosinophils/100 WBC (Bld) 0.6 % 0-5 [facility] Work Phone: Blood lymphocytes/100 leukoc yteson 03-06-2022 Lymphocytes/100 WBC (Bld) 27.4 % 19-41 [facility] Work Phone: Blood monocytes/100 leukocyt eson 03-06-2022 Monocytes/100 WBC (Bld) 12.0 % 0-[address] [facility] Work Phone: Laboratory - Hematology and Cell countson 03-06-2022 Immature granulocytes/100 WBC (Bld) 0.400 % 0.0-0.9 [facility] Work Phone: Comment on above: IG% - Immature Granu locytes (promyelocytes, myelocytes and metamyelocytes) > 1% indicates that a LEFT SHIFT is Present. Nucleated RBC/100 WBC (Bld) [Ratio] 0 % 0-5 [facility] Work Phone: Laboratory - Chemistry and C hemistry - challengeon 02-07-2022 HCG ( test) Ql (U) Negative [facility] Work Phone: Comment on above: Very dilute urine sp ecimens, as indicated by a low specificgravity, may not contain outside sales account representative levels of hCG. If is still suspected, a first morning urinespecimen should be collected 48 hours later and tested. No Panel InformationOrdered By: Dr. Perez on 01-25-2022 Miscellaneous Test Comment MAILED SPECIMEN [facility] MAILED SPECIMEN [facility] CNPNon 01-24-2022 CNPN Telephone (HEMAWS) BERE ESPOSITO ([id number]) 1980 F Date Time Provider Department 01/24/22 SELF MIKO During your visit today, we recorded the following information about you: Nicole Wright 01/24/2022 3:38 PM Signed Received New Patient referral from [facility] Called and spoke to pt to get insurance information to update PT's chart. PT's insurance is OON with the clinic. PT stated that she was scheduled at a location that is in network with her insurance and declined New Patient Appointment. Faxed Jo office and informed them of PT's decision. [phone] Received conformation that fax was received. Allergies As of Date: 01/24/2022 (No Known Allergies) Date Reviewed: 01/06/2008 Reviewed by: Jayda Muñiz - Reviewed Reason for Visit: New Patient [172] Problem List As Of Date: 01/24/2022 (None) Encounter Status:Closed by NICOLE WRIGHT on 01/24/22 Normal [facility] Absolute lymphocyte counton 12-26-2021 Lymphocytes Auto (Unsp spec) [#/Vol] 2.03 10*3/uL 0.83-4.51 [facility] Work Phone: Basophil percentageon 2021 Basophils/100 WBC (Bld) 1.0 % 0-[address] [facility] Work Phone: Bilirubin [Mass/Vol] 0.50 mg/dL 0.20-1.00 [facility] Work Phone: Comment on above: For patients on eltr ombopag therapy, use of Dimension [place] TBIL is not recommended. Chloride [Moles/Vol] 105 mmol/L 98-107 [facility] Work Phone: Cholesterol [Mass/Vol] 175 mg/dL <200 [facility] Work Phone: Comment on above: <200 mg/dL Desirable 200-240 mg/dL Borderline >240 mg/dL High Risk Eosinophils/100 WBC (Bld) 1.7 % 0-5 [facility] Work Phone: Glucose [Mass/Vol] 100 mg/dL 74-106 [facility] Work Phone: Comment on above: Fasting Glucose resu lt from 100 to 125 mg/dL suggests IMPAIRED HOMEOSTASIS per A.D.A. criteria. Neutrophils (Bld) [#/Vol] 6.4 10*3/uL 2.0-7.7 [facility] Work Phone: Neutrophils/100 WBC (Bld) 67.5 % 47-70 [facility] Work Phone: Potassium [Moles/Vol] 3.7 mmol/L 3.5-5.1 [facility] Work Phone: Protein [Mass/Vol] 7.5 g/dL 6.4-8.2 [facility] Work Phone: Sodium [Moles/Vol] 137 mmol/L 136-145 [facility] Work Phone: Triglyceride [Mass/Vol] 82 mg/dL <[address] [facility] Work Phone: Comment on above: The drugs N-Acetylcy steine and Metamizole may falsely depress this assay.Serum Triglycerides Reference Interval Normal <150 mg/dL Borderline high 150 - 199 mg/dL High 200 - 499 mg/dL Very High > or = 500 mg/dL WBC (Bld) [#/Vol] 9.4 10*3/uL 4.4-11.0 [facility] Work Phone: Blood erythrocytes count (nu mber/volume)on 12-26-2021 RBC (Bld) [#/Vol] 4.79 10*6/uL 4.2-5.4 [facility] Work Phone: Blood hemoglobin measurement (mass/volume)on 12-26-2021 Hemoglobin (Bld) [Mass/Vol] 13.8 g/dL 12.0-15.0 [facility] Work Phone: Blood lymphocytes/100 leukoc yteson 12-26-2021 Lymphocytes/100 WBC (Bld) 21.6 % 19-41 [facility] Work Phone: Blood monocytes/100 leukocyt eson 12-26-2021 Monocytes/100 WBC (Bld) 7.9 % 0-[address] [facility] Work Phone: Blood platelet mean volumeon 12-26-2021 Platelet mean volume (Bld) [Entitic vol] 10.5 fL 6.2-12.0 [facility] Work Phone: Determination of erythrocyte mean corpuscular volume (MCV)on 12-26-2021 MCV (RBC) [Entitic vol] 86.8 fL 81-[address] [facility] Work Phone: Hematocrit Auto (Bld) [Volum e fraction]on 12-26-2021 Hematocrit (Bld) [Volume fraction] 41.6 % 37-47 [facility] Work Phone: Laboratory - Chemistry and C hemistry - challengeon 12-26-2021 ALP [Catalytic activity/Vol] 100 U/L 45-117 [facility] Work Phone: ALT [Catalytic activity/Vol] 13 U/L 13-56 [facility] Work Phone: CO2 [Moles/Vol] 28.0 mmol/L 21.0-32.0 [facility] Work Phone: Globulin (S) [Mass/Vol] 3.7 g/dL 2.2-4.[address] [facility] Work Phone: Urea nitrogen/Creatinine [Mass ratio] 23.1 mg/mg 10-20 [facility] Work Phone: Laboratory - Hematology and Cell countson 12-26-2021 Erythrocyte distribution width (RBC) [Entitic vol] 45.2 fL 35.1-43.9 [facility] Work Phone: Erythrocyte distribution width (RBC) [Ratio] 14.2 % 11.6-14.6 [facility] Work Phone: Immature granulocytes/100 WBC (Bld) 0.300 % 0.0-0.9 [facility] Work Phone: Comment on above: IG% - Immature Granu locytes (promyelocytes, myelocytes and metamyelocytes) > 1% indicates that a LEFT SHIFT is Present. MCH (RBC) [Entitic mass] 28.8 pg 27.0-32.0 [facility] Work Phone: Nucleated RBC/100 WBC (Bld) [Ratio] 0 % 0-5 [facility] Work Phone: MCHC Auto (RBC) [Mass/Vol]on 12-26-2021 MCHC (RBC) [Mass/Vol] 33.2 g/dL 32-36 [facility] Work Phone: No Panel Informationon 12-26 Estimated GFR (MDRD) Amer 231 mL/min >60 [facility] Work Phone: Comment on above: GFR Calc Estimated GFR (MDRD) Non-Af Amer 191 mL/min >60 [facility] Work Phone: Comment on above: Non- GFR Calc Platelets bldon 12-26-2021 Platelets (Bld) [#/Vol] 283 10*3/uL 150-450 [facility] Work Phone: Serum or plasma C reactive p rotein measurement (mass/volume)on 12-26-2021 CRP [Mass/Vol] 10.60 mg/L 0.0-3.0 [facility] Work Phone: Comment on above: C-Reactive Protein ( CRP) provides useful information for thediagnosis, therapy and monitoring of inflammatory processesand associated diseases. For the evaluation of Relative Riskfor Cardiovascular Disease, a High Sensitivity CRP (HSCRP)should be ordered. Serum or plasma albumin marilin urement (mass/volume)on 12-26-2021 Albumin [Mass/Vol] 3.8 g/dL 3.2-5.0 [facility] Work Phone: Serum or plasma albumin/glob ulin mass ratioon 12-26-2021 Albumin/Globulin [Mass ratio] 1.0 {ratio} 0.9-2.4 [facility] Work Phone: Serum or plasma calcium marilin urement (mass/volume)on 12-26-2021 Calcium [Mass/Vol] 9.3 mg/dL 8.5-10.1 [facility] Work Phone: Serum or plasma cholesterol in HDL measurement (mass/volume)on 12-26-2021 Cholesterol in HDL [Mass/Vol] 80 mg/dL >40 [facility] Work Phone: Comment on above: The drugs N-Acetylcy steine and Metamizole may falsely depress this assay. Reference Range HDL <40 mg/dL Low HDL Cholesterol HDL >or= 60 mg/dL High HDL Cholesterol Serum or plasma cholesterol in VLDL measurement (mass/volume)on 12-26-2021 Cholesterol in VLDL [Mass/Vol] 16 mg/dL 5-40 [facility] Work Phone: Serum or plasma creatinine m easurement (mass/volume)on 12-26-2021 Creatinine [Mass/Vol] 0.39 mg/dL 0.55-1.02 [facility] Work Phone: Comment on above: The validity of the calculated GFR & GFRAA in patients over 70 years has not been determined. Clinical correlation is essential. Serum or plasma low density lipoprotein (LDL) cholesterol measurement (mass/volume)on 12-26-2021 Cholesterol in LDL [Mass/Vol] 79 mg/dL 0-130 [facility] Work Phone: Serum or plasma urea nitroge n measurement (mass/volume)on 12-26-2021 Urea nitrogen [Mass/Vol] 9 mg/dL 7-18 [facility] Work Phone: Thin prep Papanicolaou smear with manual screeningon 12-26-2021 Thin prep Papanicolaou smear with manual screening 15 U/L 15-37 [facility] Work Phone: Thin prep Papanicolaou smear with manual screening 4 5-15 [facility] Work Phone: CCP-ABSon 07-22-2019 CCP-ABS 9 units Normal 0-19 [facility] [place] Comment on above: Result Comment: Nega tive <20 Weak positive 20 - 39 Moderate positive 40 - 59 Strong positive >59 Performed At: [facility] [address] [id number] Earl Fields PhD [id number] Performed At: [facility] [address] [id number] Tony Hernandez MD [id number] Performed By: #### L 500.01900, L500.56466, L500.11522, L500.87477, L500.04474, L500.41523, L550.70734, L550.65699, L700.80558 #### [facility] [address] [place] [address] DNA DLB STR AABon 07-22-2019 DNA DLB STR AAB < 1 Normal 0-9 [facility] Comment on above: Result Comment: Nega tive <5 Equivocal 5 - 9 Positive >9 Performed By: #### L 500.50083, L500.20297, L500.28855, L500.07186, L500.93750, L500.08421, L550.62900, L550.04658, L700.50837 #### [facility] [address] [place], [place] [address] GUSTAVO ABS MAILROOM MESSENGER/SMon 07-22-2019 MAILROOM MESSENGER ANTIBODIES 0.4 AI Normal 0.0-0.9 [facility] Comment on above: Performed By: #### L 500.55421, L500.43879, L500.59981, L500.46394, L500.31740, L500.70382, L550.42284, L550.65589, L700.60174 #### [facility] [address] [place] [address] VERDE ABS < 0.2 Normal 0.0-0.9 [facility] Comment on above: Performed By: #### L 500.60356, L500.03596, L500.58469, L500.40934, L500.14099, L500.75859, L550.01710, L550.48571, L700.56537 #### [facility] [address] [place] [address] LUCIANA 1 ANTIBODYon 07-22-2019 ANTI-LUCIANA-1 < 0.2 Normal 0.0-0.9 [facility] Comment on above: Performed By: #### L 500.28381, L500.88400, L500.78331, L500.67538, L500.89566, L500.96887, L550.11602, L550.73004, L700.08311 #### [facility] [address] [place], [place] [address] SCLERODERMA ABon 07-22-2019 SCLERO 68 ABS < 0.2 Normal 0.0-0.9 [facility] Comment on above: Performed By: #### L 500.73823, L500.50657, L500.19304, L500.96978, L500.51563, L500.20510, L550.60341, L550.89075, L700.38366 #### [facility] [address] [place], [place] [address] SJOGRENS ABSon 07-22-2019 SJOGREN'S SS-A < 0.2 Normal 0.0-0.9 [facility] Comment on above: Performed By: #### L 500.66663, L500.42724, L500.46468, L500.69888, L500.89913, L500.49565, L550.94109, L550.84391, L700.30104 #### [facility] [address] [place] [address] SJOGREN'S SS-B < 0.2 Normal 0.0-0.9 [facility] Comment on above: Performed By: #### L 500.06374, L500.99184, L500.46086, L500.59100, L500.77606, L500.65163, L550.92189, L550.50882, L700.16828 #### [facility] [address] [place] [address] B12on 07-18-2019 Cobalamin (Vitamin B12) [Mass/Vol] 318.9 pg/mL Normal 193-986 [facility] Comment on above: Performed By: #### L 500.91648, L500.98268, L500.11032, L500.75411, L500.41068, L500.14024, L550.23038, L550.98579, L700.78179 #### [facility] [address] [place] [address] CBC W/DIFFon 07-18-2019 BASO ABS 0.00 K/CU MM Normal 0-0.2 [facility] Comment on above: Performed By: #### L 200.44739, L200.96588 #### [facility] [address] [place] [address] Basophils/100 WBC (Bld) 0.6 % Normal 0-2 [facility] Comment on above: Performed By: #### L 200.19577, L200.70538 #### [facility] [address] [place] [address] EOS ABS 0.10 K/CU MM Normal 0-0.5 [facility] Comment on above: Performed By: #### L 200.00093, L200.96615 #### [facility] [address] [place], [place] [address] Eosinophils/100 WBC (Bld) 0.7 % Normal 0-5 [facility] Comment on above: Performed By: #### L 200.77933, L200.23275 #### [facility] [address] [place], [place] [address] Erythrocyte distribution width (RBC) [Ratio] 13.4 % Normal 11-14.5 [facility] Comment on above: Performed By: #### L 200.03065, L200.41339 #### [facility] [address] [place] [address] Hematocrit (Bld) [Volume fraction] 42.3 % Normal 35.0-47.0 [facility] Comment on above: Performed By: #### L 200.91289, L200.53477 #### [facility] [address] [place] [address] Hemoglobin (Bld) [Mass/Vol] 14.1 g/dL Normal 11.5-15.5 [facility] Comment on above: Performed By: #### L 200.49484, L200.12034 #### [facility] [address] [place] [address] IMMATR GRAN ABS 0.00 K/CU MM Normal Less than 2 [facility] Comment on above: Performed By: #### L 200.91605, L2.31222 #### [facility] [address] [place] [address] IMMATURE GRAN % 0.3 % Normal Less than 2 [facility] Comment on above: Performed By: #### L 200.16317, L200.88292 #### [facility] [address] [place] [address] Lymphocytes (Bld) [#/Vol] 1.90 K/CU MM Normal 0.9-4.4 [facility] Comment on above: Performed By: #### L 200.52179, L200.95823 #### [facility] [address] [place] [address] Lymphocytes/100 WBC (Bld) 27.2 % Normal 20-40 [facility] Comment on above: Performed By: #### L 200.76259, L200.26611 #### [facility] [address] [place] [address] MCHC (RBC) [Mass/Vol] 33.3 g/dL Normal 32.0-36.0 [facility] [place] Comment on above: Performed By: #### L 200.91507, L200.86314 #### [facility] [address] [place] [address] MCV (RBC) [Entitic vol] 88.1 fL Normal 80.0-99.0 [facility] Comment on above: Performed By: #### L 200.37078, L200.15708 #### [facility] [address] [place] [address] MONO ABS 0.50 K/CU MM Normal 0.1-1.1 [facility] Comment on above: Performed By: #### L 200.82529, L200.60527 #### [facility] [address] [place] [address] Monocytes/100 WBC (Bld) 6.7 % Normal 2-10 [facility] Comment on above: Performed By: #### L 200.02520, L200.70372 #### [facility] [address] [place] [address] NEUTROPHIL ABS 4.60 K/CU MM Normal 2.0-8.3 [facility] Comment on above: Performed By: #### L 200.79111, L200.88149 #### [facility] [address] [place] [address] Neutrophils/100 WBC (Bld) 64.5 % Normal 45-75 [facility] Comment on above: Performed By: #### L 200.36409, L200.52718 #### [facility] [address] [place] [address] Nucleated RBC/100 WBC (Bld) [Ratio] 0.0 % Normal Less than 1 [facility] Comment on above: Performed By: #### L 200.36750, L200.62697 #### [facility] [address] [place] [address] Platelet mean volume (Bld) [Entitic vol] 9.7 fL Normal 9.4-12.4 [facility] Comment on above: Performed By: #### L 200.18855, L200.83555 #### [facility] [address] [id number] Platelets (Bld) [#/Vol] 335 K/CU MM Normal 150-450 [facility] Comment on above: Performed By: #### L 200.85040, L200.80796 #### [facility] [address] [place] [address] RBC (Bld) [#/Vol] 4.80 M/CU MM Normal 3.90-5.30 [facility] Comment on above: Performed By: #### L 200.46896, L200.21376 #### [facility] [id number] WBC (Bld) [#/Vol] 7.1 K/CUMM Normal 4.5-11.0 [facility] Comment on above: Performed By: #### L 200.53025, L200.64588 #### [facility] [address] [place] [address] CERV SP 3 VIEWS OR LESSon CERV SP 3 VIEWS OR LESS CERV SP 3 VIEWS OR LESS Ordering Physician: Helder Morton DO 07/18/2019 12:12 PM CERVICAL SPINE three views: Clinical Statement: Inflammatory polyarthritis Comparison: None FINDINGS: Routine views demonstrate a normal appearance of the vertebrae and disk spaces. The alignment is normal and the paraspinous soft tissues are normal. The posterior arches, neural foramina and atlantoaxial articulation appear normal. IMPRESSION: Normal cervical spine. ---- Electronic Signature on File ---- Signed By: Lori Mendoza MD PhD [email or web address] Dictated: 07/18/2019 1:35 PM Signed: 07/18/2019 1:36 PM Reported By: LORI MENDOZA M.D. Signed By: LORI MENDOZA M.D. Normal [facility] CKon 07-18-2019 CK [Catalytic activity/Vol] 41 U/L Normal 26-192 [facility] Comment on above: Performed By: #### L 500.59077, L500.58126, L500.02668, L500.65909, L500.29274, L500.21904, L550.39917, L550.82978, L700.30386 #### [facility] [place] [address] CMPon 07-18-2019 Albumin [Mass/Vol] 4.2 g/dL Normal 3.2-5.0 [facility] Comment on above: Performed By: #### L 500.23566, L500.36129, L500.28140, L500.65517, L500.12498, L500.88364, L550.07709, L550.33966, L700.67431 #### [facility] [id number] Albumin/Globulin [Mass ratio] 1.3 {ratio} Normal 0.8-2.0 [facility] Comment on above: Performed By: #### L 500.52693, L500.36305, L500.74818, L500.96365, L500.74304, L500.36802, L550.24874, L550.42908, L700.74849 #### [facility] [place] [address] ALK PHOS 109 U/L Normal 45-117 [facility] Comment on above: Performed By: #### L 500.65841, L500.12440, L500.86089, L500.19270, L500.46542, L500.12939, L550.35546, L550.24781, L700.19869 #### [facility] [address] [place] [address] ALT [Catalytic activity/Vol] 30 U/L Normal 13-61 [facility] Comment on above: Result Comment: RESU LTS MAY BE FALSELY DEPRESSED AFTER THE ADMINISTRATION OF SULFASALAZINE AND/OR SULFAPYRIDINE. Performed By: #### L 500.71156, L500.24941, L500.52590, L500.01765, L500.37913, L500.22148, L550.65471, L550.47768, L700.72532 #### [facility] [place] [address] Anion gap [Moles/Vol] 8 mmol/L Normal 5-16 [facility] Comment on above: Performed By: #### L 500.04365, L500.30004, L500.34161, L500.52524, L500.13651, L500.73294, L550.29826, L550.55245, L700.00401 #### [facility] [address] [place] [address] BILI TOTAL 0.4 MG/DL Normal 0.2-1.0 [facility] Comment on above: Performed By: #### L 500.14895, L500.86634, L500.07205, L500.50486, L500.41067, L500.04352, L550.01051, L550.18823, L700.10079 #### [facility] [address] [place] [address] Calcium [Mass/Vol] 8.8 mg/dL Normal 8.5-10.1 [facility] Comment on above: Performed By: #### L 500.80017, L500.77722, L500.28001, L500.79590, L500.20646, L500.42858, L550.41170, L550.90354, L700.29503 #### [facility] [address] [place] [address] Chloride [Moles/Vol] 103 mmol/L Normal 98-107 [facility] Comment on above: Performed By: #### L 500.80466, L500.56037, L500.51177, L500.83739, L500.11454, L500.97670, L550.69149, L550.48852, L700.93669 #### [facility] [place] [address] CO2 [Moles/Vol] 28 mmol/L Normal 21-32 [facility] Comment on above: Performed By: #### L 500.59535, L500.31549, L500.63208, L500.76852, L500.70466, L500.85823, L550.91594, L550.22595, L700.49740 #### [facility] [address] [place] [address] Creatinine [Mass/Vol] 0.326 mg/dL Low 0.510-0.950 [facility] Comment on above: Result Comment: Jessica ents receiving either N-Acetylcysteine (NAC) or Metamizole prior to venipuncture, may have falsely depressed results. Performed By: #### L 500.59362, L500.98048, L500.02896, L500.55877, L500.70484, L500.79401, L550.64537, L550.61269, L700.70373 #### [facility] [place] [address] Globulin (S) [Mass/Vol] 3.1 g/dL Normal 2.2-4.2 [facility] Comment on above: Performed By: #### L 500.59601, L500.78780, L500.98570, L500.97267, L500.62901, L500.39659, L550.36220, L550.18478, L700.68158 #### [facility] [place] [address] Glucose [Mass/Vol] 87 mg/dL Normal 70-100 [facility] Comment on above: Result Comment: 70-1 00- Normal Fasting; 100-125 Impaired Fasting; greater than 126 on more than one result- Diabetes. ADA guidelines. Results may be falsely elevated after the administration of Sulfapyridine. Results may be falsely depressed after the administration of Sulfasalazine. Performed By: #### L 500.50824, L500.50034, L500.07117, L500.59457, L500.88529, L500.51033, L550.37036, L550.97146, L700.91921 #### [facility] [address] [place] [address] Potassium [Moles/Vol] 3.5 mmol/L Normal 3.5-5.1 [facility] Comment on above: Performed By: #### L 500.62539, L500.96495, L500.79159, L500.80386, L500.63692, L500.01104, L550.27468, L550.73372, L700.18297 #### [facility] [place] [address] Protein [Mass/Vol] 7.3 g/dL Normal 6.0-8.5 [facility] Comment on above: Performed By: #### L 500.40083, L500.18427, L500.02568, L500.79711, L500.01256, L500.37551, L550.13055, L550.37854, L700.06584 #### [facility] [address] [place] [address] SGOT (AST) 18 U/L Normal 8-34 [facility] Comment on above: Result Comment: RESU LTS MAY BE FALSELY DEPRESSED AFTER THE ADMINISTRATION OF SULFASALAZINE AND/OR SULFAPYRIDINE. Performed By: #### L 500.49834, L500.89757, L500.97549, L500.78508, L500.27747, L500.45650, L550.54253, L550.58228, L700.83943 #### [facility] [place] [address] Sodium [Moles/Vol] 139 mmol/L Normal 136-145 [facility] Comment on above: Performed By: #### L 500.93723, L500.83163, L500.21543, L500.07777, L500.50656, L500.45726, L550.63850, L550.41412, L700.53130 #### [facility] [address] [place] [address] Urea nitrogen [Mass/Vol] 8 mg/dL Normal 7-26 [facility] Comment on above: Performed By: #### L 500.21903, L500.29978, L500.01886, L500.91509, L500.14766, L500.79641, L550.72853, L550.48579, L700.64841 #### [facility] [address] [place], [place] [address] Urea nitrogen/Creatinine [Mass ratio] 24 mg/mg Normal 15-24 [facility] Comment on above: Performed By: #### L 500.19279, L500.56785, L500.85482, L500.90438, L500.26540, L500.28398, L550.31854, L550.65936, L700.95687 #### [facility] [address] [place] [address] CRPon 07-18-2019 CRP [Mass/Vol] 0.29 mg/L Normal 0.00-0.32 [facility] Comment on above: Performed By: #### L 500.16491, L500.78891, L500.64329, L500.68068, L500.58370, L500.65865, L550.15316, L550.54652, L700.10490 #### [facility] [address] [id number] ELBOW AP AND LAT 2 VWS BILon 07-18-2019 ELBOW AP AND LAT 2 VWS ELIZABETH ELBOW AP & LAT 2 VWS ELIZABETH Ordering Physician: Helder Morton DO 07/18/2019 12:12 PM BILATERAL ELBOWS TWO VIEWS EACH Clinical Statement: Inflammatory polyarthritis Comparison: None FINDINGS: Routine views show no fracture, dislocation, joint abnormality or soft tissue calcifications. No fat-pad signs. IMPRESSION: Normal examination. ---- Electronic Signature on File ---- Signed By: Lori Mendoza MD PhD [email or web address] Dictated: 07/18/2019 1:32 PM Signed: 07/18/2019 1:32 PM Reported By: LORI MENDOZA M.D. Signed By: LORI MENDOZA M.D. Normal [facility] GFR ESTon 07-18-2019 IF AMER Greater than 60 Normal [facility] Comment on above: Performed By: #### L 500.59605, L500.34018, L500.08830, L500.43638, L500.17105, L500.65159, L550.48134, L550.63104, L700.35164 #### [facility] [address] [id number] IF non-AFR AMER Greater than 60 Normal [facility] Comment on above: Performed By: #### L 500.81491, L500.71964, L500.64337, L500.84679, L500.69122, L500.22475, L550.27321, L550.15130, L700.24456 #### [facility] [address] [place], [place] [address] HAND 2 VIEWS BILATERALon HAND 2 VIEWS BILATERAL HAND 2 VIEWS BILA TERAL Ordering Physician: Helder Morton DO 07/18/2019 12:12 PM BILATERAL HANDS THREE VIEWS EACH Clinical Statement: Inflammatory polyarthritis Comparison: None FINDINGS: Routine views show no fracture, dislocation, joint abnormality or soft tissue calcifications. There are ossicles adjacent to the left ulnar styloid process. Pronator spaces are normal. IMPRESSION: Normal examination. ---- Electronic Signature on File ---- Signed By: Lori Mendoza MD PhD [email or web address] Dictated: 07/18/2019 1:33 PM Signed: 07/18/2019 1:34 PM Reported By: LORI MENDOZA M.D. Signed By: LORI MENDOZA M.D. Normal [facility] HEPATITIS C ABon 07-18-2019 HCV AB NONREACTIVE Normal NONREACTIVE [facility] Comment on above: Result Comment: SCRE ENING TEST NEGATIVE NONREACTIVE HCV ANTIBODY SCREEN IS CONSISTENT WITH NO HCV INFECTION, UNLESS RECENT INFECTION IS SUSPECTED OR OTHER EVIDENCE EXISTS TO INDICATE HCV INFECTION Performed By: #### L 200.55389, L200.40173 #### [facility] [address] [place] [address] HIV 1/2on 07-18-2019 HIV 1/O/2 QUAL NONREACTIVE Normal NONREACTIVE [facility] Comment on above: Result Comment: NONR EACTIVE: LESS THAN 1.0 INDEX VALUE THIS ASSAY DETECTS HIV p24 ANTIGEN AND ANTIBODIES TO HIV-1 AND HIV-2 BY THE [facility] CHIV ASSAY. Performed By: #### L 200.77230, L200.41746 #### [facility] [address] [place], [place] [address] KNEES 3 VIEWS BILATERALon KNEES 3 VIEWS BILATERAL KNEES 3 VIEWS BILATERAL Ordering Physician: Helder Morton DO 07/18/2019 12:12 PM BILATERAL KNEES THREE VIEWS EACH: Clinical Statement: Inflammatory polyarthritis Comparison: None FINDINGS: No fracture or dislocation. The patella are subluxed inferiorly bilaterally. No joint effusion. No chondrocalcinosis or erosions. IMPRESSION: Inferior subluxation of both patella. ---- Electronic Signature on File ---- Signed By: Lori Mendoza MD PhD [email or web address] Dictated: 07/18/2019 1:27 PM Signed: 07/18/2019 1:28 PM Reported By: LORI MENDOZA M.D. Signed By: LORI MENDOZA M.D. [facility] LUMBAR SPINE 2 OR 3 VWSon LUMBAR SPINE 2 OR 3 VWS LUMBAR SPINE 2 O R 3 VWS Ordering Physician: Helder Morton DO 07/18/2019 12:12 PM LUMBAR SPINE THREE VIEWS: Clinical Statement: Lower back pain, M 54.5 Comparison: None FINDINGS: There is dextroscoliosis of the thoracolumbar spine. There are posterior support rods. No fractures. The disk spaces are preserved. No spondylolisthesis. No lytic or sclerotic lesions. IMPRESSION: Dextroscoliosis of the thoracolumbar spine. ---- Electronic Signature on File ---- Signed By: Lori Mendoza MD PhD [email or web address] Dictated: 07/18/2019 1:30 PM Signed: 07/18/2019 1:31 PM Reported By: LORI MENDOZA M.D. Signed By: LORI MENDOZA M.D. [facility] RA FACTOR QUANTon 07-18-2019 RA FACTOR QUANT LESS THAN 10 Normal Less than 15. [facility] Comment on above: Performed By: #### L 200.71818, L200.71933 #### [facility] [address] [place] [address]# [phone] SACROILIAC JOINTS 3 OR MORE VWon 07-18-2019 SACROILIAC JOINTS 3 OR MORE VW SACROILIAC JOINTS 3 OR MORE VW Ordering Physician: Helder Morton DO 07/18/2019 12:12 PM SI JOINTS FOUR VIEWS: Clinical Statement: Inflammatory polyarthritis Comparison: None FINDINGS: SI joints are symmetric and intact. No erosions or significant sclerosis. IMPRESSION: Patent SI joints. ---- Electronic Signature on File ---- Signed By: Lori Mendoza MD PhD [email or web address] Dictated: 07/18/2019 1:29 PM Signed: 07/18/2019 1:30 PM Reported By: LORI MENDOZA M.D. Signed By: LORI MENDOZA M.D. [facility] SHOULDER MIN 2 VWS BILATERAL on 07-18-2019 SHOULDER MIN 2 VWS BILATERAL SHOULDER MIN 2 VWS BILATERAL Ordering Physician: Helder Morton DO 07/18/2019 12:12 PM BILATERAL SHOULDERS FOUR VIEWS EACH: Clinical Statement: Inflammatory polyarthritis Comparison: None FINDINGS: There are osteoarthritic changes of both glenohumeral joints with prominent spurs, worse on the right side than left. Air space narrowing is also a little worse on the right side compared to the left. AC joints show minimal associated spurring. No soft tissue calcifications or erosions. IMPRESSION: Osteoarthritis of the glenohumeral and AC joints, greater on the right side compared to the left. ---- Electronic Signature on File ---- Signed By: Lori Mendoza MD PhD [email or web address] Dictated: 07/18/2019 1:34 PM Signed: 07/18/2019 1:35 PM Reported By: LORI MENDOZA M.D. Signed By: LORI MENDOZA M.D. [facility] T4 FREEon 07-18-2019 Free T4 [Mass/Vol] 1.15 ng/dL Normal 0.76-1.46 [facility] Comment on above: Performed By: #### L 500.80042, L500.75075, L500.45092, L500.62159, L500.95536, L500.95724, L550.20310, L550.26238, L700.27582 #### [facility] [address] [place] [address] THORACIC SPINE 3 VIEWSon THORACIC SPINE 3 VIEWS THORACIC SPINE 3 VIEWS Ordering Physician: Helder Morton DO 07/18/2019 12:12 PM THORACIC SPINE THREE VIEWS: Clinical Statement: Thoracic region pain M 54.6 Comparison: None FINDINGS: There is dextro rotoscoliosis of the thoracolumbar spine with the apex at the T9 level. There are support rods present. No fractures. Disk spaces are preserved. No spondylolisthesis. IMPRESSION: Dextrorotoscoliosis. ---- Electronic Signature on File ---- Signed By: Lori Mendoza MD PhD [email or web address] Dictated: 07/18/2019 1:31 PM Signed: 07/18/2019 1:32 PM Reported By: LORI MENDOZA M.D. Signed By: LORI MENDOZA M.D. Normal [facility] TSHon 07-18-2019 TSH Qn 0.818 UIU/ML Normal 0.358-3.740 [facility] Comment on above: Result Comment: 3rd generation ultra sensitive TSH Performed By: #### L 500.66241, L500.80406, L500.56623, L500.30324, L500.08316, L500.05300, L550.41917, L550.68868, L700.81436 #### [facility] [address] [place] [address] [id number] 07-18-2019 [id number] 25.8 NG/ML Low 30.0-100.0 [facility] Comment on above: Result Comment: Defi ciency Less than 20 ng/mL Insufficiency 20 - Less than 30 ng/mL Sufficiency 30 - 100 ng/mL Performed By: #### L 500.97020, L500.85545, L500.98246, L500.50244, L500.52760, L500.79046, L550.47590, L550.87967, L700.14933 #### [facility] [place] [address] WSR/MODon 07-18-2019 WSR/MOD 6 MM/HR Normal 0-20 [facility] Comment on above: Performed By: #### L 200.18654, L200.44033 #### [facility] [address] [place] [address] Anaerobic culture Bacteria identified Anaer cx Nom (Unsp spec) No growth in 5 days. [facility] Work Phone: Bacteria identified Anaer cx Nom (Unsp spec) No anaerobic bacteria isolated. [facility] Work Phone: Bacteria identified Cx Nom ( Wound) Wound Culture Klebsiella pneumonia e sp pneum [facility] Work Phone: Clostridium difficile detect ion by polymerase chain reaction C. difficile DNA AMBROCIO+probe Ql (Unsp spec) [facility] Work Phone: Culture, urine Bacteria identified Cx Nom (U) Positive [facility] Work Phone: Gram stain for investigation of transfusion reaction Microscopic observation Gram stain Nom (Unsp spec) [facility] Work Phone: Influenza virus A and B and SARS-CoV-2 (COVID-19) Ag panel - Upper respiratory specim SARS-CoV-2 (COVID-19) RNA AMBROCIO+probe Ql (Resp) [facility] Work Phone: No Panel Information SARS-CoV-2 & FLU Antigen (Rapid) [facility] Work Phone: Routine wound culture Bacteria identified Cx Nom (Wound) No growth aerobically. [facility] Work Phone: Stool gastrointestinal hemog lobin detection by immunologic method Lower GI hemoglobin IA Ql (Stl) [facility] Work Phone: Vital Signs Date Time Vital Sign Value Performing Clinician Mendozai danuta 10-27-2024 11:10-0400 Body height 144.[address] Jam Verde MD Work Phone: 8(105)762-743029 [place] [address] 10-27-2024 11:10-0400 Body mass index (BMI) [Ratio] 23.8 kg/m2 Dr. Jam Verde MD Work Phone: 9(864)892-185029 [place] [address] 10-27-2024 11:10-0400 Body temperature 97.6 [degF] Dr. Jam Verde MD Work Phone: 7(769)019-677556 [place] [address] 10-27-2024 11:10-0400 Body weight 50.[address] Jam Verde MD Work Phone: 8(153)622-942756 [place] [address] 10-27-2024 11:10-0400 Diastolic blood pressure 78 mm[Hg] Dr. Jam Verde MD Work Phone: 8(711)586-074956 [place] [address] 10-27-2024 11:10-0400 Heart rate 84 /min Dr. Jam Verde MD Work Phone: 5(325)404-815656 [place] [address] 10-27-2024 11:10-0400 Respiratory rate 16 /min Dr. Jam Verde MD Work Phone: 3(154)825-577156 [place] [address] 10-27-2024 11:10-0400 SaO2% (BldA) [Mass fraction] 99 % Dr. Jam Verde MD Work Phone: 5(922)656-844756 [place] [address] 10-27-2024 11:10-0400 Systolic blood pressure 119 mm[Hg] Dr. Jam Verde MD Work Phone: 0(260)654-573729 [place] [address] 07-21-2024 15:40-0500 Body height 144.[address] Jam Verde MD Work Phone: 2(959)594-497929 [place] [address] 07-21-2024 15:40-0500 Body mass index (BMI) [Ratio] 24.3 kg/m2 Dr. Jam Verde MD Work Phone: 1(221)547-029156 [place] [address] 07-21-2024 15:40-0500 Body temperature 98.3 [degF] Dr. Jam Verde MD Work Phone: 8(085)837-731429 [place] [address] 07-21-2024 15:40-0500 Body weight 50.[address] Jam Verde MD Work Phone: 4(349)404-026429 [place] [address] 07-21-2024 15:40-0500 Diastolic blood pressure 80 mm[Hg] Dr. Jam Verde MD Work Phone: 0(045)601-518456 [place] [address] 07-21-2024 15:40-0500 Heart rate 102 /min Dr. Jam Verde MD Work Phone: 2(620)201-787956 [place] [address] 07-21-2024 15:40-0500 Respiratory rate 18 /min Dr. Jam Verde MD Work Phone: 6(856)055-336156 [place] [address] 07-21-2024 15:40-0500 SaO2% (BldA) [Mass fraction] 99 % Dr. Jam Verde MD Work Phone: 5(120)228-488756 [place] [address] 07-21-2024 15:40-0500 Systolic blood pressure 115 mm[Hg] Dr. Jam Verde MD Work Phone: 5(726)694-612556 [place] [address] 04-28-2024 16:11-0500 Body temperature 96.7 [degF] Dr. Jam Verde MD Work Phone: 3(930)603-152656 [place] [address] 04-28-2024 16:11-0500 Diastolic blood pressure 65 mm[Hg] Dr. Jam Verde MD Work Phone: 4(866)112-674656 [place] [address] 04-28-2024 16:11-0500 Heart rate 88 /min Dr. Jam Verde MD Work Phone: 2(174)693-442256 [place] [address] 04-28-2024 16:11-0500 Respiratory rate 14 /min Dr. Jam Verde MD Work Phone: 4(890)368-349929 [place] [address] 04-28-2024 16:11-0500 SaO2% (BldA) [Mass fraction] 99 % Dr. Jam Verde MD Work Phone: 8(783)480-297756 [place] [address] 04-28-2024 16:11-0500 Systolic blood pressure 102 mm[Hg] Dr. Jam Verde MD Work Phone: 3(710)327-658656 [place] [address] 04-28-2024 14:33-0500 Body mass index (BMI) [Ratio] 24.5 kg/m2 Dr. Jam Verde MD Work Phone: [facility] 07-02-2023 13:05-0500 Diastolic blood pressure 86 mm[Hg] Dr. Jam Verde Work Phone: [facility] 07-02-2023 13:05-0500 Heart rate 74 /min Dr. Jam Verde Work Phone: [facility] 07-02-2023 13:05-0500 Respiratory rate 16 /min Dr. Jam Verde Work Phone: [facility] 07-02-2023 13:05-0500 SaO2% (BldA) [Mass fraction] 99 % Dr. Jam Verde Work Phone: [facility] 07-02-2023 13:05-0500 Systolic blood pressure 105 mm[Hg] Dr. Jam Verde Work Phone: [facility] 07-02-2023 10:15-0500 Body height 144.[address] Jam Verde Work Phone: [facility] 07-02-2023 10:15-0500 Body mass index (BMI) [Ratio] 22.5 kg/m2 Dr. Jam Verde Work Phone: [facility] 07-02-2023 10:15-0500 Body temperature 97.2 [degF] Dr. Jam Verde Work Phone: [facility] 07-02-2023 10:15-0500 Body weight 47.[address] Jam Verde Work Phone: [facility] 05-07-2023 08:42-0500 Body mass index (BMI) [Ratio] 24.1 kg/m2 Dr. Jam Verde Work Phone: [facility] 05-07-2023 08:42-0500 Body weight 45.[address] Jam Verde Work Phone: [facility] 05-07-2023 08:42-0500 Diastolic blood pressure 75 mm[Hg] Dr. Jam Verde Work Phone: [facility] 05-07-2023 08:42-0500 Heart rate 88 /min Dr. Jam Verde Work Phone: [facility] 05-07-2023 08:42-0500 Respiratory rate 18 /min Dr. Jam Verde Work Phone: [facility] 05-07-2023 08:42-0500 SaO2% (BldA) [Mass fraction] 98 % Dr. Jam Verde Work Phone: [facility] 05-07-2023 08:42-0500 Systolic blood pressure 103 mm[Hg] Dr. Jam Verde Work Phone: [facility] 04-16-2023 11:36-0500 Body mass index (BMI) [Ratio] 23.9 kg/m2 Dr. Jam Verde Work Phone: 7(320)885-653829 [place] [address] 04-16-2023 11:36-0500 Body temperature 97.6 [degF] Dr. Jam Verde Work Phone: [facility] 04-16-2023 11:36-0500 Body weight 45.[address] Jam Verde Work Phone: [facility] 04-16-2023 11:36-0500 Diastolic blood pressure 77 mm[Hg] Dr. Jam Verde Work Phone: [facility] 04-16-2023 11:36-0500 Heart rate 90 /min Dr. Jam Verde Work Phone: [facility] 04-16-2023 11:36-0500 Respiratory rate 18 /min Dr. Jam Verde Work Phone: [facility] 04-16-2023 11:36-0500 SaO2% (BldA) [Mass fraction] 100 % Dr. Jam Verde Work Phone: [facility] 04-16-2023 11:36-0500 Systolic blood pressure 108 mm[Hg] Dr. Jam Verde Work Phone: [facility] 03-26-2023 16:11-0400 Body temperature 98 [degF] Dr. Jam Verde Work Phone: [facility] 03-26-2023 16:11-0400 Diastolic blood pressure 61 mm[Hg] Dr. Jam Verde Work Phone: [facility] 03-26-2023 16:11-0400 Heart rate 80 /min Dr. Jam Verde Work Phone: [facility] 03-26-2023 16:11-0400 Respiratory rate 16 /min Dr. Jam Verde Work Phone: [facility] 03-26-2023 16:11-0400 SaO2% (BldA) [Mass fraction] 99 % Dr. Jam Verde Work Phone: [facility] 03-26-2023 16:11-0400 Systolic blood pressure 101 mm[Hg] Dr. Jam Verde Work Phone: [facility] 03-26-2023 13:24-0400 Body mass index (BMI) [Ratio] 23.9 kg/m2 Dr. Jam Verde Work Phone: 7(502)967-444029 [place] [address] 03-26-2023 13:24-0400 Body temperature 98.7 [degF] Dr. Jam Verde Work Phone: [facility] 03-26-2023 13:24-0400 Body weight 45.[address] Jam Verde Work Phone: [facility] 03-26-2023 13:24-0400 Diastolic blood pressure 87 mm[Hg] Dr. Jam Verde Work Phone: [facility] 03-26-2023 13:24-0400 Heart rate 92 /min Dr. Jam Verde Work Phone: [facility] 03-26-2023 13:24-0400 Respiratory rate 16 /min Dr. Jam Verde Work Phone: [facility] 03-26-2023 13:24-0400 SaO2% (BldA) [Mass fraction] 100 % Dr. Jam Verde Work Phone: [facility] 03-26-2023 13:24-0400 Systolic blood pressure 119 mm[Hg] Dr. Jam Verde Work Phone: [facility] 03-05-2023 12:58-0400 Body mass index (BMI) [Ratio] 23.6 kg/m2 Dr. Jam Verde Work Phone: [facility] 03-05-2023 12:58-0400 Body temperature 98.1 [degF] Dr. Jam Verde Work Phone: [facility] 03-05-2023 12:58-0400 Body weight 44.[address] Jam Verde Work Phone: [facility] 03-05-2023 12:58-0400 Diastolic blood pressure 76 mm[Hg] Dr. Jam Verde Work Phone: [facility] 03-05-2023 12:58-0400 Heart rate 91 /min Dr. Jam Verde Work Phone: [facility] 03-05-2023 12:58-0400 Respiratory rate 16 /min Dr. Jam Verde Work Phone: [facility] 03-05-2023 12:58-0400 SaO2% (BldA) [Mass fraction] 100 % Dr. Jam Verde Work Phone: [facility] 03-05-2023 12:58-0400 Systolic blood pressure 115 mm[Hg] Dr. Jam Verde Work Phone: [facility] 02-12-2023 15:30-0400 Diastolic blood pressure 59 mm[Hg] Dr. Jam Verde Work Phone: [facility] 02-12-2023 15:30-0400 Heart rate 85 /min Dr. Jam Verde Work Phone: [facility] 02-12-2023 15:30-0400 Respiratory rate 16 /min Dr. Jam Verde Work Phone: [facility] 02-12-2023 15:30-0400 SaO2% (BldA) [Mass fraction] 98 % Dr. Jam Verde Work Phone: [facility] 02-12-2023 15:30-0400 Systolic blood pressure 93 mm[Hg] Dr. Jam Verde Work Phone: [facility] 02-12-2023 12:50-0400 Body height 137.[address] Jam Verde Work Phone: 2(669)294-064496 [address] 02-12-2023 12:50-0400 Body mass index (BMI) [Ratio] 24 kg/m2 Dr. Jam Verde Work Phone: 0(501)504-136456 [place] [address] 02-12-2023 12:50-0400 Body temperature 96.7 [degF] Dr. Jam Verde Work Phone: 3(853)088-785656 [place] [address] 02-12-2023 12:50-0400 Body weight 45.[address] Jam Verde Work Phone: 1(191)777-107329 [place] [address] 02-12-2023 12:50-0400 Diastolic blood pressure 70 mm[Hg] Dr. Jam Verde Work Phone: 7(926)483-976096 [address] 02-12-2023 12:50-0400 Heart rate 123 /min Dr. Jam Verde Work Phone: 2(213)597-316629 [place] [address] 02-12-2023 12:50-0400 Respiratory rate 17 /min Dr. Jam Verde Work Phone: [facility] 02-12-2023 12:50-0400 SaO2% (BldA) [Mass fraction] 95 % Dr. Jam Verde Work Phone: [facility] 02-12-2023 12:50-0400 Systolic blood pressure 108 mm[Hg] Dr. Jam Verde Work Phone: [facility] 02-07-2023 09:53-0400 Body mass index (BMI) [Ratio] 23.8 kg/m2 Dr. Jam Verde Work Phone: [facility] 02-07-2023 09:53-0400 Body temperature 97.8 [degF] Dr. Jam Verde Work Phone: [facility] 02-07-2023 09:53-0400 Diastolic blood pressure 59 mm[Hg] Dr. Jam Verde Work Phone: [facility] 02-07-2023 09:53-0400 Heart rate 89 /min Dr. Jam Verde Work Phone: [facility] 02-07-2023 09:53-0400 Respiratory rate 18 /min Dr. Jam Verde Work Phone: [facility] 02-07-2023 09:53-0400 Systolic blood pressure 101 mm[Hg] Dr. Jam Verde Work Phone: [facility] 01-26-2023 00:03-0400 Body weight 44.[address] Jam Verde Work Phone: 2(404)586-028029 [place] [address] 01-24-2023 10:12-0400 Body height 137.[address] Jam Verde Work Phone: 4(210)184-952829 [place] [address] 01-24-2023 10:12-0400 Body mass index (BMI) [Ratio] 23.8 kg/m2 Dr. Jam Verde Work Phone: [facility] 01-24-2023 10:12-0400 Body temperature 97.4 [degF] Dr. Jam Verde Work Phone: [facility] 01-24-2023 10:12-0400 Body weight 44.[address] Jam Verde Work Phone: [facility] 01-24-2023 10:12-0400 Diastolic blood pressure 85 mm[Hg] Dr. Jam Verde Work Phone: [facility] 01-24-2023 10:12-0400 Heart rate 95 /min Dr. Jam Verde Work Phone: [facility] 01-24-2023 10:12-0400 Respiratory rate 16 /min Dr. Jam Verde Work Phone: [facility] 01-24-2023 10:12-0400 Systolic blood pressure 129 mm[Hg] Dr. Jam Verde Work Phone: [facility] 01-22-2023 12:06-0400 Body temperature 97.2 [degF] Dr. Jam Verde Work Phone: [facility] 01-22-2023 12:06-0400 Diastolic blood pressure 64 mm[Hg] Dr. Jam Verde Work Phone: [facility] 01-22-2023 12:06-0400 Heart rate 80 /min Dr. Jam Verde Work Phone: [facility] 01-22-2023 12:06-0400 Respiratory rate 16 /min Dr. Jam Verde Work Phone: [facility] 01-22-2023 12:06-0400 SaO2% (BldA) [Mass fraction] 100 % Dr. Jam Verde Work Phone: [facility] 01-22-2023 12:06-0400 Systolic blood pressure 110 mm[Hg] Dr. Jam Verde Work Phone: [facility] 01-22-2023 10:06-0400 Body height 132.[address] Jam Verde Work Phone: [facility] 01-22-2023 10:06-0400 Body mass index (BMI) [Ratio] 25.8 kg/m2 Dr. Jam Verde Work Phone: [facility] 01-22-2023 10:06-0400 Body temperature 97.8 [degF] Dr. Jam Verde Work Phone: [facility] 01-22-2023 10:06-0400 Body weight 45.[address] Jam Verde Work Phone: [facility] 01-22-2023 10:06-0400 Diastolic blood pressure 71 mm[Hg] Dr. Jam Verde Work Phone: [facility] 01-22-2023 10:06-0400 Heart rate 90 /min Dr. Jam Verde Work Phone: [facility] 01-22-2023 10:06-0400 Respiratory rate 16 /min Dr. Jam Verde Work Phone: [facility] 01-22-2023 10:06-0400 SaO2% (BldA) [Mass fraction] 100 % Dr. Jam Verde Work Phone: [facility] 01-22-2023 10:06-0400 Systolic blood pressure 107 mm[Hg] Dr. Jam Verde Work Phone: [facility] 01-01-2023 13:44-0400 Body temperature 97.5 [degF] Dr. Jam eVrde Work Phone: [facility] 01-01-2023 13:44-0400 Diastolic blood pressure 61 mm[Hg] Dr. Jam Verde Work Phone: [facility] 01-01-2023 13:44-0400 Heart rate 86 /min Dr. aJm Verde Work Phone: [facility] 01-01-2023 13:44-0400 Respiratory rate 16 /min Dr. Jam Verde Work Phone: [facility] 01-01-2023 13:44-0400 Systolic blood pressure 105 mm[Hg] Dr. Jam Verde Work Phone: [facility] 01-01-2023 11:06-0400 Body mass index (BMI) [Ratio] 25.7 kg/m2 Dr. Jam Verde Work Phone: [facility] 01-01-2023 11:06-0400 Body temperature 96.9 [degF] Dr. Jam Verde Work Phone: [facility] 01-01-2023 11:06-0400 Body weight 44.[address] Jam Verde Work Phone: [facility] 01-01-2023 11:06-0400 Diastolic blood pressure 76 mm[Hg] Dr. Jam Verde Work Phone: [facility] 01-01-2023 11:06-0400 Heart rate 88 /min Dr. Jam Verde Work Phone: [facility] 01-01-2023 11:06-0400 Respiratory rate 15 /min Dr. Jam Verde Work Phone: [facility] 01-01-2023 11:06-0400 SaO2% (BldA) [Mass fraction] 100 % Dr. Jam Verde Work Phone: [facility] 01-01-2023 11:06-0400 Systolic blood pressure 112 mm[Hg] Dr. Jam Verde Work Phone: [facility] 12-11-2022 11:59-0400 SaO2% (BldA) [Mass fraction] 100 % Dr. Jam Verde Work Phone: [facility] 12-11-2022 09:57-0400 Body mass index (BMI) [Ratio] 24.8 kg/m2 Dr. Jam Verde Work Phone: [facility] 12-11-2022 09:57-0400 Body temperature 98.4 [degF] Dr. Jam Verde Work Phone: [facility] 12-11-2022 09:57-0400 Body weight 43.[address] Jam Verde Work Phone: [facility] 12-11-2022 09:57-0400 Diastolic blood pressure 87 mm[Hg] Dr. Jam Verde Work Phone: [facility] 12-11-2022 09:57-0400 Heart rate 96 /min Dr. Jam Verde Work Phone: [facility] 12-11-2022 09:57-0400 Respiratory rate 16 /min Dr. Jam Verde Work Phone: [facility] 12-11-2022 09:57-0400 SaO2% (BldA) [Mass fraction] 100 % Dr. Jam Verde Work Phone: [facility] 12-11-2022 09:57-0400 Systolic blood pressure 115 mm[Hg] Dr. Jam Verde Work Phone: [facility] 11-20-2022 15:32-0400 Body temperature 96.8 [degF] Dr. Jam Verde Work Phone: [facility] 11-20-2022 15:32-0400 Diastolic blood pressure 53 mm[Hg] Dr. Jam Verde Work Phone: 4(810)045-114729 [place] [address] 11-20-2022 15:32-0400 Heart rate 91 /min Dr. Jam Verde Work Phone: 7(674)637-536556 [place] [address] 11-20-2022 15:32-0400 Respiratory rate 16 /min Dr. Jam Verde Work Phone: 5(238)725-594556 [place] [address] 11-20-2022 15:32-0400 SaO2% (BldA) [Mass fraction] 95 % Dr. Jam Verde Work Phone: [facility] 11-20-2022 15:32-0400 Systolic blood pressure 112 mm[Hg] Dr. Jam Verde Work Phone: 0(598)962-072496 [address] 11-20-2022 13:34-0400 Body height 132.[address] Jam Verde Work Phone: 6(689)438-588856 [place] [address] 11-20-2022 13:34-0400 Body mass index (BMI) [Ratio] 25.4 kg/m2 Dr. Jam Verde Work Phone: 0(115)153-772929 [place] [address] 11-20-2022 13:34-0400 Body weight 44.[address] Jam Verde Work Phone: [facility] 11-20-2022 13:02-0400 Body mass index (BMI) [Ratio] 25.4 kg/m2 Dr. Jam Verde Work Phone: [facility] 11-20-2022 13:02-0400 Body temperature 98 [degF] Dr. Jam Verde Work Phone: 5(897)123-191096 [address] 11-20-2022 13:02-0400 Body weight 44.[address] Jam Verde Work Phone: [facility] 11-20-2022 13:02-0400 Diastolic blood pressure 74 mm[Hg] Dr. Jam Verde Work Phone: [facility] 11-20-2022 13:02-0400 Heart rate 98 /min Dr. Jam Verde Work Phone: 2(900)552-534329 [place] [address] 11-20-2022 13:02-0400 Respiratory rate 17 /min Dr. Jam Verde Work Phone: [facility] 11-20-2022 13:02-0400 SaO2% (BldA) [Mass fraction] 100 % Dr. Jam Verde Work Phone: [facility] 11-20-2022 13:02-0400 Systolic blood pressure 109 mm[Hg] Dr. Jam Verde Work Phone: 1(627)889-052296 [address] 11-06-2022 09:43-0400 Body height 132.[address] Jam Verde Work Phone: 0(610)060-463196 [address] 11-06-2022 09:43-0400 Body weight 40.[address] Jam Verde Work Phone: 9(219)234-710896 [address] 10-30-2022 12:26-0400 Body temperature 97.1 [degF] Dr. Jam Verde Work Phone: 4(815)623-320229 [place] [address] 10-30-2022 12:26-0400 Diastolic blood pressure 56 mm[Hg] Dr. Jam Verde Work Phone: [facility] 10-30-2022 12:26-0400 Heart rate 80 /min Dr. Jam Verde Work Phone: [facility] 10-30-2022 12:26-0400 Respiratory rate 16 /min Dr. Jam Verde Work Phone: [facility] 10-30-2022 12:26-0400 SaO2% (BldA) [Mass fraction] 100 % Dr. Jam Verde Work Phone: [facility] 10-30-2022 12:26-0400 Systolic blood pressure 103 mm[Hg] Dr. Jam Verde Work Phone: [facility] 10-30-2022 10:25-0400 Body mass index (BMI) [Ratio] 23.3 kg/m2 Dr. Jam Verde Work Phone: [facility] 10-30-2022 09:29-0400 Body mass index (BMI) [Ratio] 23.3 kg/m2 Dr. Jam Verde Work Phone: [facility] 10-30-2022 09:29-0400 Body temperature 97.4 [degF] Dr. Jam Verde Work Phone: [facility] 10-30-2022 09:29-0400 Body weight 40.[address] Jam Verde Work Phone: [facility] 10-30-2022 09:29-0400 Diastolic blood pressure 74 mm[Hg] Dr. Jam Verde Work Phone: [facility] 10-30-2022 09:29-0400 Heart rate 91 /min Dr. Jam Verde Work Phone: [facility] 10-30-2022 09:29-0400 Respiratory rate 16 /min Dr. Jam Verde Work Phone: [facility] 10-30-2022 09:29-0400 SaO2% (BldA) [Mass fraction] 99 % Dr. Jam Verde Work Phone: [facility] 10-30-2022 09:29-0400 Systolic blood pressure 107 mm[Hg] Dr. Jam Verde Work Phone: [facility] 10-30-2022 09:04-0400 Body mass index (BMI) [Ratio] 23.3 kg/m2 Dr. Jam Verde Work Phone: [facility] 10-30-2022 09:04-0400 Body temperature 97.4 [degF] Dr. Jam Verde Work Phone: [facility] 10-30-2022 09:04-0400 Body weight 40.[address] Jam Verde Work Phone: [facility] 10-30-2022 09:04-0400 Diastolic blood pressure 74 mm[Hg] Dr. Jam Verde Work Phone: [facility] 10-30-2022 09:04-0400 Heart rate 91 /min Dr. Jam Verde Work Phone: [facility] 10-30-2022 09:04-0400 Respiratory rate 16 /min Dr. Jam Verde Work Phone: [facility] 10-30-2022 09:04-0400 SaO2% (BldA) [Mass fraction] 99 % Dr. Jam Verde Work Phone: [facility] 10-30-2022 09:04-0400 Systolic blood pressure 107 mm[Hg] Dr. Jam Verde Work Phone: [facility] 10-12-2022 14:25-0400 Body mass index (BMI) [Ratio] 23.2 kg/m2 Dr. Jam Verde Work Phone: [facility] 10-12-2022 14:25-0400 Body temperature 97.3 [degF] Dr. Jam Verde Work Phone: [facility] 10-12-2022 14:25-0400 Body weight 40.[address] Jam Verde Work Phone: [facility] 10-12-2022 14:25-0400 Diastolic blood pressure 68 mm[Hg] Dr. Jam Verde Work Phone: [facility] 10-12-2022 14:25-0400 Heart rate 103 /min Dr. Jam Verde Work Phone: [facility] 10-12-2022 14:25-0400 Respiratory rate 16 /min Dr. Jam Verde Work Phone: [facility] 10-12-2022 14:25-0400 SaO2% (BldA) [Mass fraction] 95 % Dr. Jam Verde Work Phone: [facility] 10-12-2022 14:25-0400 Systolic blood pressure 96 mm[Hg] Dr. Jam Verde Work Phone: [facility] 10-09-2022 09:31-0400 Body temperature 98.3 [degF] Dr. Jam Verde Work Phone: [facility] 10-09-2022 09:31-0400 Diastolic blood pressure 60 mm[Hg] Dr. Jam Verde Work Phone: [facility] 10-09-2022 09:31-0400 Heart rate 104 /min Dr. Jam Verde Work Phone: [facility] 10-09-2022 09:31-0400 Respiratory rate 16 /min Dr. Jam Verde Work Phone: [facility] 10-09-2022 09:31-0400 SaO2% (BldA) [Mass fraction] 96 % Dr. Jam Verde Work Phone: [facility] 10-09-2022 09:31-0400 Systolic blood pressure 93 mm[Hg] Dr. Jam Verde Work Phone: [facility] 10-04-2022 14:17-0400 Body mass index (BMI) [Ratio] 23.2 kg/m2 Dr. Jam Verde Work Phone: [facility] 10-04-2022 14:17-0400 Body temperature 97 [degF] Dr. Jam eVrde Work Phone: [facility] 10-04-2022 14:17-0400 Body weight 40.[address] Jam Verde Work Phone: [facility] 10-04-2022 14:17-0400 Diastolic blood pressure 71 mm[Hg] Dr. Jam Verde Work Phone: [facility] 10-04-2022 14:17-0400 Heart rate 93 /min Dr. Jam Verde Work Phone: [facility] 10-04-2022 14:17-0400 Respiratory rate 16 /min Dr. Jam Verde Work Phone: [facility] 10-04-2022 14:17-0400 SaO2% (BldA) [Mass fraction] 100 % Dr. Jam Verde Work Phone: [facility] 10-04-2022 14:17-0400 Systolic blood pressure 116 mm[Hg] Dr. Jam Verde Work Phone: [facility] 09-27-2022 14:16-0400 Body mass index (BMI) [Ratio] 23.4 kg/m2 Dr. Jam Verde Work Phone: [facility] 09-27-2022 14:16-0400 Body temperature 97 [degF] Dr. Jam Verde Work Phone: [facility] 09-27-2022 14:16-0400 Body weight 40.[address] Jam Verde Work Phone: [facility] 09-27-2022 14:16-0400 Diastolic blood pressure 70 mm[Hg] Dr. Jam Verde Work Phone: [facility] 09-27-2022 14:16-0400 Heart rate 95 /min Dr. Jam Verde Work Phone: [facility] 09-27-2022 14:16-0400 Respiratory rate 16 /min Dr. Jam Verde Work Phone: [facility] 09-27-2022 14:16-0400 SaO2% (BldA) [Mass fraction] 98 % Dr. Jam Verde Work Phone: [facility] 09-27-2022 14:16-0400 Systolic blood pressure 102 mm[Hg] Dr. Jam Verde Work Phone: [facility] 09-20-2022 14:22-0400 Body mass index (BMI) [Ratio] 22.8 kg/m2 Dr. Jam Verde Work Phone: [facility] 09-20-2022 14:22-0400 Body temperature 97.6 [degF] Dr. Jam Verde Work Phone: [facility] 09-20-2022 14:22-0400 Body weight 39.[address] Jam Verde Work Phone: [facility] 09-20-2022 14:22-0400 Heart rate 88 /min Dr. Jam Verde Work Phone: [facility] 09-20-2022 14:22-0400 Respiratory rate 18 /min Dr. Jam Verde Work Phone: [facility] 09-20-2022 14:22-0400 SaO2% (BldA) [Mass fraction] 99 % Dr. Jam Verde Work Phone: [facility] 09-18-2022 09:31-0400 Body mass index (BMI) [Ratio] 22.8 kg/m2 Dr. Jam Verde Work Phone: [facility] 09-18-2022 09:31-0400 Body temperature 96.8 [degF] Dr. Jam Vedre Work Phone: [facility] 09-18-2022 09:31-0400 Body weight 39.[address] Jam Verde Work Phone: [facility] 09-18-2022 09:31-0400 Diastolic blood pressure 64 mm[Hg] Dr. Jam Verde Work Phone: [facility] 09-18-2022 09:31-0400 Heart rate 97 /min Dr. Jam Verde Work Phone: [facility] 09-18-2022 09:31-0400 Respiratory rate 18 /min Dr. Jam Verde Work Phone: [facility] 09-18-2022 09:31-0400 SaO2% (BldA) [Mass fraction] 94 % Dr. Jam Verde Work Phone: [facility] 09-18-2022 09:31-0400 Systolic blood pressure 101 mm[Hg] Dr. Jam Verde Work Phone: [facility] 09-13-2022 14:20-0400 Body mass index (BMI) [Ratio] 22.4 kg/m2 Dr. Jam Verde Work Phone: [facility] 09-13-2022 14:20-0400 Body temperature 96.7 [degF] Dr. Jam Verde Work Phone: [facility] 09-13-2022 14:20-0400 Body weight 39.[address] Jam Verde Work Phone: [facility] 09-13-2022 14:20-0400 Diastolic blood pressure 64 mm[Hg] Dr. Jam Verde Work Phone: [facility] 09-13-2022 14:20-0400 Heart rate 89 /min Dr. Jam Verde Work Phone: [facility] 09-13-2022 14:20-0400 Respiratory rate 18 /min Dr. Jam Verde Work Phone: [facility] 09-13-2022 14:20-0400 SaO2% (BldA) [Mass fraction] 100 % Dr. Jam Verde Work Phone: [facility] 09-13-2022 14:20-0400 Systolic blood pressure 95 mm[Hg] Dr. Jam Verde Work Phone: [facility] 08-28-2022 11:37-0400 Body mass index (BMI) [Ratio] 22.4 kg/m2 Dr. Jam Verde Work Phone: [facility] 08-28-2022 11:37-0400 Body weight 39.[address] Jam Verde Work Phone: [facility] 08-28-2022 10:02-0400 Body mass index (BMI) [Ratio] 22.4 kg/m2 Dr. Jam Verde Work Phone: [facility] 08-28-2022 10:02-0400 Body temperature 97.3 [degF] Dr. Jam Verde Work Phone: [facility] 08-28-2022 10:02-0400 Body weight 39.[address] Jam Verde Work Phone: [facility] 08-28-2022 10:02-0400 Diastolic blood pressure 72 mm[Hg] Dr. Jam Verde Work Phone: [facility] 08-28-2022 10:02-0400 Heart rate 81 /min Dr. Jam Verde Work Phone: [facility] 08-28-2022 10:02-0400 Respiratory rate 18 /min Dr. Jam Verde Work Phone: [facility] 08-28-2022 10:02-0400 SaO2% (BldA) [Mass fraction] 99 % Dr. Jam Verde Work Phone: [facility] 08-28-2022 10:02-0400 Systolic blood pressure 107 mm[Hg] Dr. Jam Verde Work Phone: [facility] 08-17-2022 15:30-0400 Body temperature 98 [degF] Dr. Jam Verde Work Phone: [facility] 08-17-2022 15:30-0400 Diastolic blood pressure 50 mm[Hg] Dr. Jam Verde Work Phone: [facility] 08-17-2022 15:30-0400 Heart rate 89 /min Dr. Jam Verde Work Phone: [facility] 08-17-2022 15:30-0400 Respiratory rate 16 /min Dr. Jam Verde Work Phone: [facility] 08-17-2022 15:30-0400 SaO2% (BldA) [Mass fraction] 100 % Dr. Jam Verde Work Phone: [facility] 08-17-2022 15:30-0400 Systolic blood pressure 100 mm[Hg] Dr. Jam Verde Work Phone: [facility] 08-17-2022 13:52-0400 Inhaled oxygen flow rate 6 L/min Dr. Jam Verde Work Phone: [facility] 08-17-2022 10:15-0400 Body height 132.[address] Jam Verde Work Phone: [facility] 08-17-2022 10:15-0400 Body mass index (BMI) [Ratio] 22.8 kg/m2 Dr. Jam Verde Work Phone: 3(872)814-083329 [place] [address] 08-17-2022 10:15-0400 Body weight 39.[address] Jam Verde Work Phone: 2(671)367-328756 [place] [address] 08-14-2022 11:09-0400 Body weight 39.[address] Jam Verde Work Phone: 9(984)680-975656 [place] [address] 08-07-2022 12:35-0400 Diastolic blood pressure 64 mm[Hg] Dr. Jam Verde Work Phone: 8(769)473-619956 [place] [address] 08-07-2022 12:35-0400 Heart rate 103 /min Dr. Jam Verde Work Phone: 9(614)678-888956 [place] [address] 08-07-2022 12:35-0400 Respiratory rate 16 /min Dr. Jam Verde Work Phone: 4(371)130-268356 [place] [address] 08-07-2022 12:35-0400 SaO2% (BldA) [Mass fraction] 100 % Dr. Jam Verde Work Phone: 0(706)836-375296 [address] 08-07-2022 12:35-0400 Systolic blood pressure 90 mm[Hg] Dr. Jam Verde Work Phone: 6(905)548-635429 [place] [address] 08-07-2022 11:43-0400 Body mass index (BMI) [Ratio] 22.4 kg/m2 Dr. Jam Verde Work Phone: 1(803)298-909329 [place] [address] 08-07-2022 11:43-0400 Body weight 39.[address] Jam Verde Work Phone: 9(392)810-692756 [place] [address] 08-07-2022 08:35-0400 Body mass index (BMI) [Ratio] 22.4 kg/m2 Dr. Jam Verde Work Phone: [facility] 08-07-2022 08:35-0400 Body temperature 97.4 [degF] Dr. Jam Verde Work Phone: [facility] 08-07-2022 08:35-0400 Body weight 39.[address] Jam Verde Work Phone: [facility] 08-07-2022 08:35-0400 Diastolic blood pressure 68 mm[Hg] Dr. Jam Verde Work Phone: [facility] 08-07-2022 08:35-0400 Heart rate 104 /min Dr. Jam Verde Work Phone: [facility] 08-07-2022 08:35-0400 Respiratory rate 16 /min Dr. Jam Verde Work Phone: 5(936)512-630029 [place] [address] 08-07-2022 08:35-0400 SaO2% (BldA) [Mass fraction] 95 % Dr. Jam Verde Work Phone: [facility] 08-07-2022 08:35-0400 Systolic blood pressure 100 mm[Hg] Dr. Jam Verde Work Phone: [facility] 07-31-2022 11:27-0500 Body height 132.[address] Jam Verde Work Phone: [facility] 07-31-2022 11:27-0500 Body weight 39.[address] Jam Verde Work Phone: [facility] 07-24-2022 10:41-0500 Body height 132.[address] Jam Verde Work Phone: 7(454)135-703929 [place] [address] 07-24-2022 10:41-0500 Body mass index (BMI) [Ratio] 22.8 kg/m2 Dr. Jam Verde Work Phone: [facility] 07-24-2022 10:41-0500 Body temperature 96.7 [degF] Dr. Jam Verde Work Phone: [facility] 07-24-2022 10:41-0500 Body weight 39.[address] Jam Verde Work Phone: [facility] 07-24-2022 10:41-0500 Diastolic blood pressure 65 mm[Hg] Dr. Jam Verde Work Phone: [facility] 07-24-2022 10:41-0500 Heart rate 109 /min Dr. Jam Verde Work Phone: [facility] 07-24-2022 10:41-0500 Respiratory rate 16 /min Dr. Jam Verde Work Phone: [facility] 07-24-2022 10:41-0500 SaO2% (BldA) [Mass fraction] 97 % Dr. Jam Verde Work Phone: [facility] 07-24-2022 10:41-0500 Systolic blood pressure 99 mm[Hg] Dr. Jam Verde Work Phone: [facility] 07-24-2022 09:27-0500 Body mass index (BMI) [Ratio] 22.8 kg/m2 Dr. Jam Verde Work Phone: [facility] 07-24-2022 09:27-0500 Body temperature 96.7 [degF] Dr. Jam Verde Work Phone: [facility] 07-24-2022 09:27-0500 Body weight 39.[address] Jam Verde Work Phone: [facility] 07-24-2022 09:27-0500 Diastolic blood pressure 65 mm[Hg] Dr. Jam Verde Work Phone: [facility] 07-24-2022 09:27-0500 Heart rate 109 /min Dr. Jam Verde Work Phone: [facility] 07-24-2022 09:27-0500 Respiratory rate 16 /min Dr. Jam Verde Work Phone: [facility] 07-24-2022 09:27-0500 SaO2% (BldA) [Mass fraction] 97 % Dr. Jam Verde Work Phone: [facility] 07-24-2022 09:27-0500 Systolic blood pressure 99 mm[Hg] Dr. Jam Verde Work Phone: [facility] 07-19-2022 13:37-0500 Body height 132.[address] Jam Verde Work Phone: [facility] 07-19-2022 13:37-0500 Body weight 39.[address] Jam Verde Work Phone: [facility] 07-13-2022 15:37-0500 Body temperature 98.3 [degF] Dr. Jam Verde Work Phone: [facility] 07-13-2022 15:37-0500 Diastolic blood pressure 72 mm[Hg] Dr. Jam Verde Work Phone: 8(594)690-269396 [address] 07-13-2022 15:37-0500 Heart rate 93 /min Dr. Jam Verde Work Phone: [facility] 07-13-2022 15:37-0500 Respiratory rate 16 /min Dr. Jam Verde Work Phone: [facility] 07-13-2022 15:37-0500 SaO2% (BldA) [Mass fraction] 96 % Dr. Jam Verde Work Phone: [facility] 07-13-2022 15:37-0500 Systolic blood pressure 115 mm[Hg] Dr. Jam Verde Work Phone: [facility] 07-13-2022 06:00-0500 Body weight 40.[address] Jam Verde Work Phone: [facility] 06-30-2022 16:00-0500 Body mass index (BMI) [Ratio] 23.4 kg/m2 Dr. Jam Verde Work Phone: [facility] 06-30-2022 14:22-0500 Body temperature 98.2 [degF] Dr. Jam Verde Work Phone: [facility] 06-30-2022 14:22-0500 Diastolic blood pressure 71 mm[Hg] Dr. Jam Verde Work Phone: [facility] 06-30-2022 14:22-0500 Heart rate 103 /min Dr. Jam Verde Work Phone: [facility] 06-30-2022 14:22-0500 Respiratory rate 18 /min Dr. Jam Verde Work Phone: [facility] 06-30-2022 14:22-0500 SaO2% (BldA) [Mass fraction] 98 % Dr. Jam Verde Work Phone: [facility] 06-30-2022 14:22-0500 Systolic blood pressure 113 mm[Hg] Dr. Jam Verde Work Phone: [facility] 06-28-2022 10:21-0500 Body height 132.[address] Jam Verde Work Phone: [facility] 06-28-2022 10:21-0500 Body weight 41.[address] Jam Verde Work Phone: [facility] 06-27-2022 18:33-0500 Body mass index (BMI) [Ratio] 23.8 kg/m2 Dr. Jam Verde Work Phone: [facility] 06-27-2022 17:06-0500 Inhaled oxygen flow rate 6 L/min Dr. Jam Vedre Work Phone: [facility] 06-27-2022 10:49-0500 Body temperature 98.3 [degF] Dr. Jam Verde Work Phone: [facility] 06-27-2022 10:49-0500 Diastolic blood pressure 59 mm[Hg] Dr. Jam Verde Work Phone: [facility] 06-27-2022 10:49-0500 Heart rate 94 /min Dr. Jam Verde Work Phone: [facility] 06-27-2022 10:49-0500 Respiratory rate 17 /min Dr. Jam Verde Work Phone: [facility] 06-27-2022 10:49-0500 SaO2% (BldA) [Mass fraction] 100 % Dr. Jam Verde Work Phone: [facility] 06-27-2022 10:49-0500 Systolic blood pressure 103 mm[Hg] Dr. Jam Verde Work Phone: 3(248)535-119929 [place] [address] 06-26-2022 16:13-0500 Body weight 40.[address] Jam Verde Work Phone: 7(480)700-047329 [place] [address] 05-28-2022 17:44-0500 Body mass index (BMI) [Ratio] 29.5 kg/m2 Dr. Jam Verde Work Phone: 3(762)953-227296 [address] 05-28-2022 16:05-0500 Heart rate 108 /min Dr. Jam Verde Work Phone: 1(161)684-836129 [place] [address] 05-28-2022 11:00-0500 Body temperature 97.8 [degF] Dr. Jam Verde Work Phone: 3(407)407-219429 [place] [address] 05-28-2022 11:00-0500 Diastolic blood pressure 84 mm[Hg] Dr. Jam Verde Work Phone: 5(926)802-174896 [address] 05-28-2022 11:00-0500 Respiratory rate 16 /min Dr. Jam Verde Work Phone: 1(665)814-570529 [place] [address] 05-28-2022 11:00-0500 SaO2% (BldA) [Mass fraction] 98 % Dr. Jam Verde Work Phone: 8(797)106-142029 [place] [address] 05-28-2022 11:00-0500 Systolic blood pressure 117 mm[Hg] Dr. Jam Verde Work Phone: 7(722)982-509729 [place] [address] 05-28-2022 06:40-0500 Body weight 57.[address] Jam Verde Work Phone: 9(255)321-618129 [place] [address] 05-28-2022 00:00-0500 Heart rate 95 /min Dr. Jam Verde Work Phone: [facility] Work Phone: 05-27-2022 23:00-0500 Body temperature 97.8 [degF] Dr. Jam Verde Work Phone: [facility] Work Phone: 05-27-2022 23:00-0500 Diastolic blood pressure 70 mm[Hg] Dr. Jam Verde Work Phone: [facility] Work Phone: 05-27-2022 23:00-0500 Respiratory rate 16 /min Dr. Jam Verde Work Phone: [facility] Work Phone: 05-27-2022 23:00-0500 SaO2% (BldA) [Mass fraction] 98 % Dr. Jam Verde Work Phone: [facility] Work Phone: 05-27-2022 23:00-0500 Systolic blood pressure 98 mm[Hg] Dr. Jam Verde Work Phone: [facility] Work Phone: 05-27-2022 11:43-0500 Body height 137.[address] Jam Verde Work Phone: [facility] Work Phone: 05-27-2022 11:43-0500 Body weight 56.[address] Jam Verde Work Phone: [facility] Work Phone: 05-25-2022 17:00-0500 Inhaled oxygen flow rate 2 L/min Dr. Jam Verde Work Phone: [facility] 05-23-2022 02:17-0500 Body mass index (BMI) [Ratio] 19.3 kg/m2 Dr. Jam Verde Work Phone: [facility] 05-22-2022 18:00-0500 Body temperature 99.3 [degF] Dr. Jam Verde Work Phone: [facility] Work Phone: 05-22-2022 18:00-0500 Diastolic blood pressure 65 mm[Hg] Dr. Jam Verde Work Phone: [facility] Work Phone: 05-22-2022 18:00-0500 Heart rate 135 /min Dr. Jam Verde Work Phone: [facility] Work Phone: 05-22-2022 18:00-0500 Respiratory rate 21 /min Dr. Jam Verde Work Phone: [facility] Work Phone: 05-22-2022 18:00-0500 SaO2% (BldA) [Mass fraction] 100 % Dr. Jam Verde Work Phone: [facility] Work Phone: 05-22-2022 18:00-0500 Systolic blood pressure 102 mm[Hg] Dr. Jam Verde Work Phone: [facility] Work Phone: 05-22-2022 11:58-0500 Body height 139.[address] Jam Verde Work Phone: [facility] Work Phone: 05-22-2022 11:58-0500 Body mass index (BMI) [Ratio] 18.6 kg/m2 Dr. Jam Verde Work Phone: [facility] Work Phone: 05-22-2022 11:58-0500 Body weight 36.[address] Jam Verde Work Phone: [facility] Work Phone: 05-18-2022 10:03-0500 Body temperature 97.6 [degF] Dr. Jam Verde Work Phone: [facility] 05-18-2022 10:03-0500 Diastolic blood pressure 75 mm[Hg] Dr. Jam Verde Work Phone: 5(033)749-008529 [place] [address] 05-18-2022 10:03-0500 Heart rate 115 /min Dr. Jam Verde Work Phone: [facility] 05-18-2022 10:03-0500 Respiratory rate 16 /min Dr. Jam Verde Work Phone: [facility] 05-18-2022 10:03-0500 SaO2% (BldA) [Mass fraction] 99 % Dr. Jam Verde Work Phone: 4(197)116-451929 [place] [address] 05-18-2022 10:03-0500 Systolic blood pressure 114 mm[Hg] Dr. Jam Verde Work Phone: 8(956)531-809696 [address] 05-16-2022 09:29-0500 Body weight 37.[address] Jam Verde Work Phone: 4(136)154-375196 [address] 05-16-2022 08:07-0500 Body mass index (BMI) [Ratio] 19.3 kg/m2 Dr. Jam Verde Work Phone: 7(265)616-101429 [place] [address] 05-16-2022 08:07-0500 Body temperature 97.2 [degF] Dr. Jam Verde Work Phone: 1(329)527-807496 [address] 05-16-2022 08:07-0500 Body weight 37.[address] Jam Verde Work Phone: 5(665)468-528596 [address] 05-16-2022 08:07-0500 Diastolic blood pressure 71 mm[Hg] Dr. Jam Verde Work Phone: 6(915)621-101429 [place] [address] 05-16-2022 08:07-0500 Heart rate 141 /min Dr. Jam Verde Work Phone: [facility] 05-16-2022 08:07-0500 Respiratory rate 18 /min Dr. Jam Verde Work Phone: 8(454)508-111296 [address] 05-16-2022 08:07-0500 SaO2% (BldA) [Mass fraction] 99 % Dr. Jam Verde Work Phone: [facility] 05-16-2022 08:07-0500 Systolic blood pressure 101 mm[Hg] Dr. Jam Verde Work Phone: [facility] 05-15-2022 09:35-0500 Body mass index (BMI) [Ratio] 23.2 kg/m2 Dr. Jam Verde Work Phone: [facility] 05-15-2022 09:35-0500 Body temperature 97.2 [degF] Dr. Jam Verde Work Phone: [facility] 05-15-2022 09:35-0500 Diastolic blood pressure 77 mm[Hg] Dr. Jam Verde Work Phone: [facility] 05-15-2022 09:35-0500 Heart rate 145 /min Dr. Jam Verde Work Phone: [facility] 05-15-2022 09:35-0500 Systolic blood pressure 111 mm[Hg] Dr. Jam Verde Work Phone: [facility] 05-09-2022 09:58-0500 Body mass index (BMI) [Ratio] 20 kg/m2 Dr. Jam Verde Work Phone: [facility] 05-09-2022 08:51-0500 Body mass index (BMI) [Ratio] 20 kg/m2 Dr. Jam Verde Work Phone: [facility] 05-09-2022 08:51-0500 Body temperature 97.4 [degF] Dr. Jam Verde Work Phone: [facility] 05-09-2022 08:51-0500 Body weight 39.[address] Jam Verde Work Phone: [facility] 05-09-2022 08:51-0500 Diastolic blood pressure 70 mm[Hg] Dr. Jam Verde Work Phone: [facility] 05-09-2022 08:51-0500 Heart rate 115 /min Dr. Jam Verde Work Phone: [facility] 05-09-2022 08:51-0500 Respiratory rate 18 /min Dr. Jam Verde Work Phone: [facility] 05-09-2022 08:51-0500 SaO2% (BldA) [Mass fraction] 100 % Dr. Jam Verde Work Phone: [facility] 05-09-2022 08:51-0500 Systolic blood pressure 103 mm[Hg] Dr. Jam Verde Work Phone: [facility] 05-02-2022 10:25-0500 Body mass index (BMI) [Ratio] 20.2 kg/m2 Dr. Jam Verde Work Phone: [facility] 05-02-2022 10:25-0500 Body temperature 97.4 [degF] Dr. Jam Verde Work Phone: [facility] 05-02-2022 10:25-0500 Body weight 39.[address] Jam Verde Work Phone: [facility] 05-02-2022 10:25-0500 Diastolic blood pressure 69 mm[Hg] Dr. Jam Verde Work Phone: [facility] 05-02-2022 10:25-0500 Heart rate 135 /min Dr. Jam Verde Work Phone: [facility] 05-02-2022 10:25-0500 Respiratory rate 16 /min Dr. Jam Verde Work Phone: [facility] 05-02-2022 10:25-0500 SaO2% (BldA) [Mass fraction] 100 % Dr. Jam Verde Work Phone: [facility] 05-02-2022 10:25-0500 Systolic blood pressure 99 mm[Hg] Dr. Jam Verde Work Phone: [facility] 04-27-2022 21:13-0500 Body temperature 97.4 [degF] Dr. Jam Verde Work Phone: [facility] 04-27-2022 21:13-0500 Diastolic blood pressure 73 mm[Hg] Dr. Jam Verde Work Phone: [facility] 04-27-2022 21:13-0500 Heart rate 118 /min Dr. Jam Verde Work Phone: [facility] 04-27-2022 21:13-0500 Respiratory rate 20 /min Dr. Jam Verde Work Phone: [facility] 04-27-2022 21:13-0500 SaO2% (BldA) [Mass fraction] 100 % Dr. Jam Verde Work Phone: [facility] 04-27-2022 21:13-0500 Systolic blood pressure 114 mm[Hg] Dr. Jam Verde Work Phone: [facility] 04-27-2022 16:25-0500 Body height 139.[address] Jam Verde Work Phone: [facility] Work Phone: 04-27-2022 16:25-0500 Body mass index (BMI) [Ratio] 20 kg/m2 Dr. Jam Verde Work Phone: [facility] 04-27-2022 16:25-0500 Body temperature 97.4 [degF] Dr. Jam Verde Work Phone: [facility] 04-27-2022 16:25-0500 Body weight [address] Jam Verde Work Phone: [facility] 04-27-2022 16:25-0500 Diastolic blood pressure 76 mm[Hg] Dr. Jam Verde Work Phone: [facility] 04-27-2022 16:25-0500 Heart rate 141 /min Dr. Jam Verde Work Phone: [facility] 04-27-2022 16:25-0500 Respiratory rate 16 /min Dr. Jam Verde Work Phone: [facility] 04-27-2022 16:25-0500 SaO2% (BldA) [Mass fraction] 100 % Dr. Jam Verde Work Phone: [facility] 04-27-2022 16:25-0500 Systolic blood pressure 111 mm[Hg] Dr. Jam Verde Work Phone: [facility] 04-27-2022 00:40-0500 Body weight 45.[address] Jam Verde Work Phone: [facility] 04-27-2022 00:40-0500 Respiratory rate 16 /min Dr. Jam Verde Work Phone: [facility] 04-24-2022 10:24-0500 Body mass index (BMI) [Ratio] 20.7 kg/m2 Dr. Jam Verde Work Phone: [facility] 04-24-2022 10:24-0500 Body temperature 97.9 [degF] Dr. Jam Verde Work Phone: [facility] 04-24-2022 10:24-0500 Body weight 40.[address] Jam Verde Work Phone: [facility] 04-24-2022 10:24-0500 Diastolic blood pressure 74 mm[Hg] Dr. Jam Verde Work Phone: [facility] 04-24-2022 10:24-0500 Heart rate 148 /min Dr. Jam Verde Work Phone: [facility] 04-24-2022 10:24-0500 Respiratory rate 16 /min Dr. Jam Verde Work Phone: [facility] 04-24-2022 10:24-0500 SaO2% (BldA) [Mass fraction] 100 % Dr. Jam Verde Work Phone: [facility] 04-24-2022 10:24-0500 Systolic blood pressure 104 mm[Hg] Dr. Jam Verde Work Phone: [facility] 04-24-2022 09:49-0500 Body mass index (BMI) [Ratio] 23.2 kg/m2 Dr. Jam Verde Work Phone: [facility] 04-24-2022 09:49-0500 Body temperature 95.9 [degF] Dr. Jam Verde Work Phone: [facility] 04-24-2022 09:49-0500 Diastolic blood pressure 74 mm[Hg] Dr. Jam Verde Work Phone: [facility] 04-24-2022 09:49-0500 Heart rate 143 /min Dr. Jam Verde Work Phone: [facility] 04-24-2022 09:49-0500 Systolic blood pressure 104 mm[Hg] Dr. Jam Verde Work Phone: [facility] 04-19-2022 15:18-0500 Body temperature 98.5 [degF] Dr. Jam Verde Work Phone: [facility] Work Phone: 04-19-2022 15:18-0500 Diastolic blood pressure 72 mm[Hg] Dr. aJm Verde Work Phone: [facility] Work Phone: 04-19-2022 15:18-0500 Heart rate 104 /min Dr. Jam Verde Work Phone: [facility] Work Phone: 04-19-2022 15:18-0500 Respiratory rate 12 /min Dr. Jam Verde Work Phone: [facility] Work Phone: 04-19-2022 15:18-0500 SaO2% (BldA) [Mass fraction] 100 % Dr. Jam Verde Work Phone: [facility] Work Phone: 04-19-2022 15:18-0500 Systolic blood pressure 122 mm[Hg] Dr. Jam Verde Work Phone: [facility] Work Phone: 04-18-2022 08:56-0500 Body mass index (BMI) [Ratio] 22.5 kg/m2 Dr. Jam Verde Work Phone: [facility] Work Phone: 04-18-2022 08:56-0500 Body weight 43.[address] Jam Verde Work Phone: [facility] Work Phone: 04-18-2022 08:00-0500 Body mass index (BMI) [Ratio] 22.5 kg/m2 Dr. Jam Verde Work Phone: [facility] 04-18-2022 08:00-0500 Body temperature 98.5 [degF] Dr. Jam Verde Work Phone: [facility] 04-18-2022 08:00-0500 Body weight 43.[address] Jam Verde Work Phone: [facility] 04-18-2022 08:00-0500 Diastolic blood pressure 72 mm[Hg] Dr. Jam Verde Work Phone: [facility] 04-18-2022 08:00-0500 Heart rate 100 /min Dr. Jam Verde Work Phone: [facility] 04-18-2022 08:00-0500 Respiratory rate 16 /min Dr. Jam Verde Work Phone: [facility] 04-18-2022 08:00-0500 SaO2% (BldA) [Mass fraction] 100 % Dr. Jam Verde Work Phone: [facility] 04-18-2022 08:00-0500 Systolic blood pressure 106 mm[Hg] Dr. Jam Verde Work Phone: [facility] 04-17-2022 09:32-0500 Respiratory rate 16 /min Dr. Jam Verde Work Phone: [facility] 04-11-2022 08:10-0500 Body mass index (BMI) [Ratio] 22.7 kg/m2 Dr. Jam Verde Work Phone: [facility] 04-11-2022 08:10-0500 Body temperature 97 [degF] Dr. Jam Verde Work Phone: [facility] 04-11-2022 08:10-0500 Body weight 44.[address] Jam Verde Work Phone: [facility] 04-11-2022 08:10-0500 Diastolic blood pressure 76 mm[Hg] Dr. Jam Verde Work Phone: [facility] 04-11-2022 08:10-0500 Heart rate 111 /min Dr. Jam Verde Work Phone: [facility] 04-11-2022 08:10-0500 Respiratory rate 16 /min Dr. Jam Verde Work Phone: [facility] 04-11-2022 08:10-0500 SaO2% (BldA) [Mass fraction] 100 % Dr. Jam Verde Work Phone: [facility] 04-11-2022 08:10-0500 Systolic blood pressure 108 mm[Hg] Dr. Jam Verde Work Phone: [facility] 04-06-2022 08:26-0500 Body mass index (BMI) [Ratio] 23.5 kg/m2 Dr. Jam Verde Work Phone: [facility] 04-06-2022 08:26-0500 Body temperature 97.3 [degF] Dr. Jam Verde Work Phone: [facility] 04-06-2022 08:26-0500 Body weight 45.[address] Jam Verde Work Phone: [facility] 04-06-2022 08:26-0500 Diastolic blood pressure 81 mm[Hg] Dr. Jam Verde Work Phone: [facility] 04-06-2022 08:26-0500 Heart rate 121 /min Dr. Jam Verde Work Phone: [facility] 04-06-2022 08:26-0500 Respiratory rate 16 /min Dr. Jam Verde Work Phone: [facility] 04-06-2022 08:26-0500 SaO2% (BldA) [Mass fraction] 100 % Dr. Jam Verde Work Phone: [facility] 04-06-2022 08:26-0500 Systolic blood pressure 115 mm[Hg] Dr. Jam Verde Work Phone: [facility] 04-05-2022 10:47-0500 Body weight 45.[address] Jam Verde Work Phone: [facility] 04-04-2022 09:33-0500 Body mass index (BMI) [Ratio] 23.2 kg/m2 Dr. Jam Verde Work Phone: [facility] 04-04-2022 09:33-0500 Body temperature 98.8 [degF] Dr. Jam Verde Work Phone: [facility] 04-04-2022 09:33-0500 Body weight 45.[address] Jam Verde Work Phone: [facility] 04-04-2022 09:33-0500 Diastolic blood pressure 80 mm[Hg] Dr. Jam Verde Work Phone: [facility] 04-04-2022 09:33-0500 Heart rate 121 /min Dr. Jam Verde Work Phone: [facility] 04-04-2022 09:33-0500 Respiratory rate 16 /min Dr. Jam Verde Work Phone: [facility] 04-04-2022 09:33-0500 SaO2% (BldA) [Mass fraction] 100 % Dr. Jam Verde Work Phone: [facility] 04-04-2022 09:33-0500 Systolic blood pressure 119 mm[Hg] Dr. Jam Verde Work Phone: [facility] 03-28-2022 09:55-0400 Body mass index (BMI) [Ratio] 21.4 kg/m2 Dr. Jam Verde Work Phone: [facility] 03-28-2022 09:55-0400 Body temperature 97.2 [degF] Dr. Jam Verde Work Phone: [facility] 03-28-2022 09:55-0400 Body weight 45.[address] Jam Verde Work Phone: [facility] 03-28-2022 09:55-0400 Diastolic blood pressure 68 mm[Hg] Dr. Jam Verde Work Phone: [facility] 03-28-2022 09:55-0400 Heart rate 137 /min Dr. Jam Verde Work Phone: [facility] 03-28-2022 09:55-0400 Respiratory rate 16 /min Dr. Jam Verde Work Phone: [facility] 03-28-2022 09:55-0400 SaO2% (BldA) [Mass fraction] 100 % Dr. Jam Verde Work Phone: [facility] 03-28-2022 09:55-0400 Systolic blood pressure 92 mm[Hg] Dr. Jam Verde Work Phone: [facility] 03-27-2022 05:41-0400 Diastolic blood pressure 71 mm[Hg] Dr. Jam Verde Work Phone: [facility] 03-27-2022 05:41-0400 Heart rate 104 /min Dr. Jam Verde Work Phone: [facility] 03-27-2022 05:41-0400 Respiratory rate 16 /min Dr. Jam Verde Work Phone: [facility] [facility] 03-27-2022 05:41-0400 SaO2% (BldA) [Mass fraction] 96 % Dr. Jam Verde Work Phone: [facility] 03-27-2022 05:41-0400 Systolic blood pressure 106 mm[Hg] Dr. Jam Verde Work Phone: [facility] 03-26-2022 22:19-0400 Body height 139.[address] Jam Verde Work Phone: [facility] Work Phone: 03-26-2022 22:19-0400 Body mass index (BMI) [Ratio] 24.1 kg/m2 Dr. Jam Verde Work Phone: [facility] 03-26-2022 22:19-0400 Body temperature 97 [degF] Dr. Jam Verde Work Phone: [facility] 03-26-2022 22:19-0400 Body weight 47.[address] Jam Verde Work Phone: [facility] 03-22-2022 16:15-0400 Body temperature 96.6 [degF] Dr. Jam Verde Work Phone: [facility] Work Phone: 03-22-2022 16:15-0400 Diastolic blood pressure 95 mm[Hg] Dr. Jam Verde Work Phone: [facility] Work Phone: 03-22-2022 16:15-0400 Heart rate 107 /min Dr. Jam Verde Work Phone: [facility] Work Phone: 03-22-2022 16:15-0400 Respiratory rate 16 /min Dr. Jam Verde Work Phone: [facility] Work Phone: 03-22-2022 16:15-0400 SaO2% (BldA) [Mass fraction] 97 % Dr. Jam Verde Work Phone: [facility] Work Phone: 03-22-2022 16:15-0400 Systolic blood pressure 144 mm[Hg] Dr. Jam Verde Work Phone: [facility] Work Phone: 03-22-2022 12:02-0400 Body temperature 99 [degF] Dr. Jam Verde Work Phone: [facility] 03-22-2022 12:02-0400 Diastolic blood pressure 85 mm[Hg] Dr. Jam Verde Work Phone: [facility] 03-22-2022 12:02-0400 Heart rate 81 /min Dr. Jam Verde Work Phone: [facility] 03-22-2022 12:02-0400 Respiratory rate 16 /min Dr. Jam Verde Work Phone: [facility] 03-22-2022 12:02-0400 Systolic blood pressure 130 mm[Hg] Dr. Jam Verde Work Phone: [facility] 03-22-2022 11:12-0400 Diastolic blood pressure 93 mm[Hg] Dr. Jam Verde Work Phone: [phone] [place] [address] 03-22-2022 11:12-0400 Respiratory rate 16 /min Dr. Jam Verde Work Phone: [facility] 03-22-2022 11:12-0400 SaO2% (BldA) [Mass fraction] 98 % Dr. Jam Verde Work Phone: [facility] 03-22-2022 11:12-0400 Systolic blood pressure 145 mm[Hg] Dr. Jam Verde Work Phone: [facility] 03-22-2022 10:25-0400 Body temperature 98.1 [degF] Dr. Jam Verde Work Phone: [facility] 03-22-2022 10:25-0400 Heart rate 74 /min Dr. Jam Verde Work Phone: [facility] 03-22-2022 07:32-0400 Body height 142.[address] Jam Verde Work Phone: [facility] Work Phone: 03-22-2022 07:32-0400 Body mass index (BMI) [Ratio] 25.2 kg/m2 Dr. Jam Verde Work Phone: [facility] 03-22-2022 07:32-0400 Body weight 51.[address] Jam Verde Work Phone: [facility] 03-21-2022 09:55-0400 Body mass index (BMI) [Ratio] 23.2 kg/m2 Dr. Jam Verde Work Phone: [facility] Work Phone: 03-21-2022 09:55-0400 Body weight 48.[address] Jam Verde Work Phone: [facility] Work Phone: 03-21-2022 09:18-0400 Body mass index (BMI) [Ratio] 23.2 kg/m2 Dr. Jam Verde Work Phone: [facility] 03-21-2022 09:18-0400 Body temperature 97.4 [degF] Dr. Jam Verde Work Phone: [facility] 03-21-2022 09:18-0400 Body weight 48.[address] Jam Verde Work Phone: [facility] 03-21-2022 09:18-0400 Diastolic blood pressure 87 mm[Hg] Dr. Jam Verde Work Phone: [facility] 03-21-2022 09:18-0400 Heart rate 103 /min Dr. Jam Verde Work Phone: [facility] 03-21-2022 09:18-0400 Respiratory rate 14 /min Dr. Jam Verde Work Phone: [facility] 03-21-2022 09:18-0400 SaO2% (BldA) [Mass fraction] 99 % Dr. Jam Verde Work Phone: [facility] 03-21-2022 09:18-0400 Systolic blood pressure 119 mm[Hg] Dr. Jam Verde Work Phone: [facility] 03-14-2022 17:46-0400 Body temperature 97.4 [degF] Dr. Jam Verde Work Phone: [facility] Work Phone: 03-14-2022 17:46-0400 Diastolic blood pressure 69 mm[Hg] Dr. Jam Verde Work Phone: [facility] Work Phone: 03-14-2022 17:46-0400 Heart rate 97 /min Dr. Jam Verde Work Phone: [facility] Work Phone: 03-14-2022 17:46-0400 Respiratory rate 16 /min Dr. Jam Verde Work Phone: [facility] Work Phone: 03-14-2022 17:46-0400 SaO2% (BldA) [Mass fraction] 100 % Dr. Jam Verde Work Phone: [facility] Work Phone: 03-14-2022 17:46-0400 Systolic blood pressure 110 mm[Hg] Dr. Jam Verde Work Phone: [facility] Work Phone: 03-14-2022 09:51-0400 Body height 144.[address] Jam Verde Work Phone: [facility] Work Phone: 03-14-2022 09:51-0400 Body mass index (BMI) [Ratio] 22.3 kg/m2 Dr. Jam Verde Work Phone: [facility] 03-14-2022 09:51-0400 Body temperature 97.3 [degF] Dr. Jam Verde Work Phone: [facility] 03-14-2022 09:51-0400 Body weight 46.[address] Jam Verde Work Phone: [facility] 03-14-2022 09:51-0400 Diastolic blood pressure 77 mm[Hg] Dr. Jam Verde Work Phone: [facility] 03-14-2022 09:51-0400 Heart rate 93 /min Dr. Jam Verde Work Phone: [facility] 03-14-2022 09:51-0400 Respiratory rate 16 /min Dr. Jam Verde Work Phone: [facility] 03-14-2022 09:51-0400 SaO2% (BldA) [Mass fraction] 100 % Dr. Jam Verde Work Phone: [facility] 03-14-2022 09:51-0400 Systolic blood pressure 113 mm[Hg] Dr. Jam Verde Work Phone: [facility] 03-06-2022 11:34-0400 Body mass index (BMI) [Ratio] 22.1 kg/m2 Dr. Jam Verde Work Phone: [facility] 03-06-2022 11:34-0400 Body temperature 97.2 [degF] Dr. Jam Verde Work Phone: [facility] 03-06-2022 11:34-0400 Body weight 46.[address] Jam Verde Work Phone: [facility] 03-06-2022 11:34-0400 Diastolic blood pressure 91 mm[Hg] Dr. Jam Verde Work Phone: [facility] 03-06-2022 11:34-0400 Heart rate 84 /min Dr. Jam Verde Work Phone: [facility] 03-06-2022 11:34-0400 Respiratory rate 16 /min Dr. Jam Verde Work Phone: [facility] 03-06-2022 11:34-0400 SaO2% (BldA) [Mass fraction] 99 % Dr. Jam Verde Work Phone: [facility] 03-06-2022 11:34-0400 Systolic blood pressure 118 mm[Hg] Dr. Jam Verde Work Phone: [facility] 02-28-2022 10:28-0400 Body mass index (BMI) [Ratio] 22.9 kg/m2 Dr. Jam Verde Work Phone: [facility] Work Phone: 02-28-2022 10:28-0400 Body weight 48.[address] Jam Verde Work Phone: [facility] Work Phone: 02-28-2022 09:46-0400 Body mass index (BMI) [Ratio] 22.9 kg/m2 Dr. Jam Verde Work Phone: [facility] Work Phone: 02-28-2022 09:46-0400 Body temperature 98 [degF] Dr. Jam Verde Work Phone: [facility] Work Phone: 02-28-2022 09:46-0400 Body weight 48.[address] Jam Verde Work Phone: [facility] Work Phone: 02-28-2022 09:46-0400 Diastolic blood pressure 78 mm[Hg] Dr. Jam Verde Work Phone: [facility] Work Phone: 02-28-2022 09:46-0400 Heart rate 80 /min Dr. Jam Verde Work Phone: [facility] Work Phone: 02-28-2022 09:46-0400 Respiratory rate 16 /min Dr. Jam Verde Work Phone: [facility] Work Phone: 02-28-2022 09:46-0400 SaO2% (BldA) [Mass fraction] 99 % Dr. Jam Verde Work Phone: [facility] Work Phone: 02-28-2022 09:46-0400 Systolic blood pressure 112 mm[Hg] Dr. Jam Verde Work Phone: [facility] Work Phone: 02-23-2022 13:56-0400 Body mass index (BMI) [Ratio] 23.1 kg/m2 Dr. Jam Verde Work Phone: [facility] Work Phone: 02-23-2022 13:56-0400 Body temperature 98.3 [degF] Dr. Jam Verde Work Phone: [facility] Work Phone: 02-23-2022 13:56-0400 Body weight 48.[address] Jam Verde Work Phone: [facility] Work Phone: 02-23-2022 13:56-0400 Diastolic blood pressure 80 mm[Hg] Dr. Jam Verde Work Phone: [facility] Work Phone: 02-23-2022 13:56-0400 Heart rate 99 /min Dr. Jam Verde Work Phone: [facility] Work Phone: 02-23-2022 13:56-0400 Respiratory rate 16 /min Dr. Jam Verde Work Phone: [facility] Work Phone: 02-23-2022 13:56-0400 SaO2% (BldA) [Mass fraction] 99 % Dr. Jam Verde Work Phone: [facility] Work Phone: 02-23-2022 13:56-0400 Systolic blood pressure 118 mm[Hg] Dr. Jam Verde Work Phone: [facility] Work Phone: 02-14-2022 10:57-0400 Body mass index (BMI) [Ratio] 23 kg/m2 Dr. Jam Verde Work Phone: [facility] Work Phone: 02-14-2022 10:57-0400 Body temperature 97.7 [degF] Dr. Jam Verde Work Phone: [facility] Work Phone: 02-14-2022 10:57-0400 Body weight 48.[address] Jam Verde Work Phone: [facility] Work Phone: 02-14-2022 10:57-0400 Diastolic blood pressure 80 mm[Hg] Dr. Jam Verde Work Phone: [facility] Work Phone: 02-14-2022 10:57-0400 Heart rate 94 /min Dr. Jam Verde Work Phone: [facility] Work Phone: 02-14-2022 10:57-0400 Respiratory rate 16 /min Dr. Jam Verde Work Phone: [facility] Work Phone: 02-14-2022 10:57-0400 SaO2% (BldA) [Mass fraction] 99 % Dr. Jam Verde Work Phone: [facility] Work Phone: 02-14-2022 10:57-0400 Systolic blood pressure 115 mm[Hg] Dr. Jam Verde Work Phone: [facility] Work Phone: 02-07-2022 12:40-0400 Body temperature 97.8 [degF] Dr. Jam Verde Work Phone: [facility] Work Phone: 02-07-2022 12:40-0400 Diastolic blood pressure 57 mm[Hg] Dr. Jam Verde Work Phone: [facility] Work Phone: 02-07-2022 12:40-0400 Heart rate 69 /min Dr. Jam Verde Work Phone: [facility] Work Phone: 02-07-2022 12:40-0400 Respiratory rate 16 /min Dr. Jam Verde Work Phone: [facility] Work Phone: 02-07-2022 12:40-0400 SaO2% (BldA) [Mass fraction] 100 % Dr. Jam Verde Work Phone: [facility] Work Phone: 02-07-2022 12:40-0400 Systolic blood pressure 101 mm[Hg] Dr. Jam Verde Work Phone: [facility] Work Phone: 02-07-2022 09:22-0400 Body height 144.[address] Jam Verde Work Phone: [facility] Work Phone: 02-07-2022 09:22-0400 Body mass index (BMI) [Ratio] 22.8 kg/m2 Dr. Jam Verde Work Phone: [facility] Work Phone: 02-07-2022 09:22-0400 Body temperature 98.7 [degF] Dr. Jam Verde Work Phone: [facility] Work Phone: 02-07-2022 09:22-0400 Body weight [address] Jam Verde Work Phone: [facility] Work Phone: 02-07-2022 09:22-0400 Diastolic blood pressure 74 mm[Hg] Dr. Jam Verde Work Phone: [facility] Work Phone: 02-07-2022 09:22-0400 Heart rate 99 /min Dr. Jam Verde Work Phone: [facility] Work Phone: 02-07-2022 09:22-0400 Respiratory rate 16 /min Dr. Jam Verde Work Phone: [facility] Work Phone: 02-07-2022 09:22-0400 SaO2% (BldA) [Mass fraction] 100 % Dr. Jam Verde Work Phone: [facility] Work Phone: 02-07-2022 09:22-0400 Systolic blood pressure 122 mm[Hg] Dr. Jam Verde Work Phone: [facility] Work Phone: 02-03-2022 10:26-0400 Body mass index (BMI) [Ratio] 24.2 kg/m2 Dr. Jam Verde Work Phone: [facility] Work Phone: 02-03-2022 10:26-0400 Body weight 48.[address] Jam Verde Work Phone: [facility] Work Phone: 02-03-2022 10:26-0400 Diastolic blood pressure 73 mm[Hg] Dr. Jam Verde Work Phone: [facility] Work Phone: 02-03-2022 10:26-0400 Heart rate 86 /min Dr. Jam Verde Work Phone: [facility] Work Phone: 02-03-2022 10:26-0400 Respiratory rate 16 /min Dr. Jam Verde Work Phone: [facility] Work Phone: 02-03-2022 10:26-0400 SaO2% (BldA) [Mass fraction] 99 % Dr. Jam Verde Work Phone: [facility] Work Phone: 02-03-2022 10:26-0400 Systolic blood pressure 104 mm[Hg] Dr. Jam Verde Work Phone: [facility] Work Phone: 01-31-2022 08:47-0400 Body height 142.[address] Jam Verde Work Phone: [facility] Work Phone: 01-31-2022 08:47-0400 Body mass index (BMI) [Ratio] 24.4 kg/m2 Dr. Jam Verde Work Phone: [facility] Work Phone: 01-31-2022 08:47-0400 Body temperature 97.8 [degF] Dr. Jam Verde Work Phone: [facility] Work Phone: 01-31-2022 08:47-0400 Body weight 49.[address] Jam Verde Work Phone: [facility] Work Phone: 01-31-2022 08:47-0400 Diastolic blood pressure 69 mm[Hg] Dr. Jam Verde Work Phone: [facility] Work Phone: 01-31-2022 08:47-0400 Heart rate 86 /min Dr. Jam Verde Work Phone: [facility] Work Phone: 01-31-2022 08:47-0400 Respiratory rate 16 /min Dr. Jam Verde Work Phone: [facility] Work Phone: 01-31-2022 08:47-0400 SaO2% (BldA) [Mass fraction] 100 % Dr. Jam Verde Work Phone: [facility] Work Phone: 01-31-2022 08:47-0400 Systolic blood pressure 94 mm[Hg] Dr. Jam Verde Work Phone: [facility] Work Phone: 01-25-2022 12:58-0400 Body mass index (BMI) [Ratio] 24.3 kg/m2 Dr. Jam Verde Work Phone: [facility] Work Phone: 01-25-2022 12:58-0400 Body temperature 99.4 [degF] Dr. Jam Verde Work Phone: [facility] Work Phone: 01-25-2022 12:58-0400 Body weight 49.[address] Jam Verde Work Phone: [facility] Work Phone: 01-25-2022 12:58-0400 Diastolic blood pressure 79 mm[Hg] Dr. Jam Verde Work Phone: [facility] Work Phone: 01-25-2022 12:58-0400 Heart rate 102 /min Dr. Jam Verde Work Phone: [facility] Work Phone: 01-25-2022 12:58-0400 Respiratory rate 16 /min Dr. Jam Verde Work Phone: [facility] Work Phone: 01-25-2022 12:58-0400 SaO2% (BldA) [Mass fraction] 99 % Dr. Jam Verde Work Phone: [facility] Work Phone: 01-25-2022 12:58-0400 Systolic blood pressure 113 mm[Hg] Dr. Jam Verde Work Phone: [facility] Work Phone: 01-18-2022 13:42-0400 Body height 142.[address] Jam Verde Work Phone: [facility] Work Phone: 01-18-2022 13:42-0400 Body mass index (BMI) [Ratio] 24.4 kg/m2 Dr. Jam Verde Work Phone: [facility] Work Phone: 01-18-2022 13:42-0400 Body temperature 97.7 [degF] Dr. Jam Verde Work Phone: [facility] Work Phone: 01-18-2022 13:42-0400 Body weight 49.[address] Jam Verde Work Phone: [facility] Work Phone: 01-18-2022 13:42-0400 Diastolic blood pressure 85 mm[Hg] Dr. Jam Verde Work Phone: [facility] Work Phone: 01-18-2022 13:42-0400 Heart rate 108 /min Dr. Jam Verde Work Phone: [facility] Work Phone: 01-18-2022 13:42-0400 Respiratory rate 16 /min Dr. Jam Verde Work Phone: [facility] Work Phone: 01-18-2022 13:42-0400 SaO2% (BldA) [Mass fraction] 98 % Dr. Jam Verde Work Phone: [facility] Work Phone: 01-18-2022 13:42-0400 Systolic blood pressure 128 mm[Hg] Dr. Jam Verde Work Phone: [facility] Work Phone: Encounters Encounter Date Encounter Type Care Provider Facility Start: 12-21-2024 ambulatory Ed Physician Provider F acility:[facility] Start: 11-25-2024 ambulatory Theodore Mcqueen ty:[facility] Start: 11-13-2024 ambulatory Jam Verde Facility:[facility] Start: 10-27-2024 End: 10-27-[address] Theodore Perez MD -[facility] Work Phone: Start: 10-27-2024 End: 10-27-[address] Jam Verde MD Work Phone: [facility] Work Phone: Start: 10-27-[address] Nino Perez MD -[facility] Start: 10-14-[address] Nino Perez MD -[facility] Start: 10-09-2024 End: 10-09-[address] Jam Verde MD Work Phone: [facility] Work Phone: Start: 10-09-2024 End: 10-09-[address] Jam Verde MD -Outpatient Bone Densitometry Work Phone: Start: 10-09-2024 End: 10-09-2024 ambulatory Jam Verde Facility:[facility] Start: 09-12-[address] Jam Verde MD -Physical Therapy Work Phone: Start: 07-21-2024 End: 07-21-2024 Patient encounter procedure Chelsea Hernandez DIRECTOR RECREATION-C -[facility] Work Phone: Start: 07-21-2024 End: 07-21-2024 ambulatory Jam Verde Facility:[facility] Start: 05-23-2024 End: 05-23-2024 ambulatory Jam Verde Facility:[facility] Start: 04-17-2024 End: 04-17-2024 ambulatory Jam Verde Facility:[facility] Start: 03-24-2024 End: 03-24-2024 ambulatory Jam Verde Facility:[facility] Start: 03-06-2024 End: 03-06-2024 ambulatory Jam Verde Facility:[facility] Start: 01-23-2024 End: 01-23-2024 ambulatory Theodore Bowenus Facility:[facility] Start: 01-17-2024 End: 01-17-2024 ambulatory Chelsea Hernandez Facility:[facility] Start: 07-02-2023 End: 07-02-2023 Emergency department patient visit Dr. Jam Verde Work Phone: [facility]-Emergency Department Work Phone: Start: 06-04-[address] Jam Verde Work Phone: [facility] Start: 05-07-[address] Jam Verde Work Phone: [facility] Start: 05-07-2023 End: 05-07-[address] Jam Verde Work Phone: [facility] Work Phone: Start: 04-16-2023 End: 04-16-[address] Jam Verde Work Phone: [facility] Work Phone: Start: 03-26-2023 End: 03-26-[address] Jam Verde Work Phone: [facility] Work Phone: Start: 03-05-2023 End: 03-05-[address] Jam Verde Work Phone: [facility] Work Phone: Start: 02-21-2023 Non-patient / Non-visit Dr. Jam Verde Work Phone: [facility] Start: 02-21-2023 End: 02-21-[address] Jam Verde Work Phone: [facility] Work Phone: Start: 02-21-2023 End: 02-21-[address] [facility] Start: 02-21-2023 End: 02-21-[address] Jam Verde Work Phone: [facility] Work Phone: Start: 02-21-2023 End: 02-21-[address] Jam Verde Work Phone: [facility]-Laboratory, Specimen Work Phone: Start: 02-12-[address] Jam Verde Work Phone: [facility] Start: 02-12-2023 End: 02-12-[address] Jam Verde Work Phone: [facility] Work Phone: Start: 02-07-2023 Non-patient / Non-visit Dr. Jam Verde Work Phone: [facility] Start: 02-07-2023 End: 02-09-[address] Jam Verde Work Phone: [facility] Work Phone: Start: 02-07-2023 End: 02-09-[address] Jam Verde Work Phone: [facility] Work Phone: Start: 01-24-2023 Non-patient / Non-visit Dr. Jam Verde Work Phone: [facility] Start: 01-24-2023 End: 01-25-[address] Jam Verde Work Phone: [facility] Work Phone: Start: 01-24-2023 End: 01-25-[address] Jam Verde [facility] Start: 01-22-[address] Jam Verde Work Phone: [facility] Start: 01-22-2023 End: 01-22-[address] Jam Verde Work Phone: [facility] Work Phone: Start: 01-15-2023 End: 01-15-[address] Jam Verde Work Phone: [facility] Work Phone: Start: 01-15-2023 End: 01-15-[address] Jam Verde Work Phone: [facility]-Outpatient Breast Imaging Work Phone: Start: 01-01-2023 End: 01-01-[address] Jam Verde Work Phone: [facility] Work Phone: Start: 12-11-2022 End: 12-11-[address] Jam Verde Work Phone: [facility] Work Phone: Start: 12-07-2022 End: 12-07-[address] Jam Verde Work Phone: [facility] Work Phone: Start: 12-04-2022 End: 12-04-[address] Jam Verde Work Phone: [facility] Work Phone: Start: 12-04-2022 End: 12-04-[address] Jam Verde Work Phone: [facility] Work Phone: Start: 11-20-[address] Jam Verde Work Phone: [facility] Start: 11-20-2022 End: 11-20-[address] Jam Verde Work Phone: [facility] Work Phone: Start: 11-15-2022 Non-patient / Non-visit Dr. Jam Verde Work Phone: [facility] Start: 11-15-2022 End: 11-15-[address] Jam Verde Work Phone: [facility] Work Phone: Start: 11-15-2022 End: 11-15-[address] Jam Ver[facility] Start: 10-30-[address] Jam Verde Work Phone: [facility] Start: 10-30-2022 End: 10-30-[address] Jam Verde Work Phone: [facility] Start: 10-12-2022 End: 10-12-[address] Jam Verde Work Phone: [facility] Start: 10-09-2022 End: 10-09-[address] Jam Verde Work Phone: [facility] Start: 10-04-2022 End: 10-04-[address] Jam Verde Work Phone: [facility] Start: 09-27-2022 End: 09-27-[address] Jam Verde Work Phone: [facility] Start: 09-20-2022 End: 09-20-[address] Jam Verde Work Phone: [facility] Start: 09-18-2022 End: 09-18-[address] Jam Verde Work Phone: [facility] Start: 09-15-2022 Non-patient / Non-visit Dr. Jam Verde Work Phone: [facility] Start: 09-13-2022 End: 09-13-[address] Jam Verde Work Phone: [facility] Start: 09-08-2022 End: 09-08-2022 ambulatory Dr. Jam Verde Work Phone: [facility] Work Phone: Start: 09-08-2022 End: 09-08-[address] Jam [facility] Start: 09-08-[address] Jam Verde [facility] Start: 09-07-2022 Non-patient / Non-visit Dr. Jam Verde Work Phone: [facility] Start: 09-06-2022 Non-patient / Non-visit Dr. Jam Verde Work Phone: [facility] Start: 08-28-2022 Non-patient / Non-visit Dr. Jam Verde Work Phone: [facility] Start: 08-28-2022 End: 08-28-[address] Jam Verde Work Phone: [facility] Start: 08-28-2022 End: 08-28-[address] Jam Verde Work Phone: [facility] Start: 08-17-2022 Non-patient / Non-visit Dr. Jam Verde Work Phone: [facility] Start: 08-17-2022 Dr. Jam Verde Work Phone: [facility] Start: 08-17-2022 End: 08-17-2022 Admission to same day surgery center Dr. Jam Verde Work Phone: [facility]-Surgical Day Care Start: 08-17-2022 End: 08-17-[address] Jam Verde Work Phone: [facility] Work Phone: Start: 08-17-2022 End: 08-17-2022 Dr. Jam Verde Work Phone: [facility]-Surgical Day Care Start: 08-16-2022 End: 08-16-[address] Jam Verde Work Phone: [facility]-Outpatient Pavilion Ultrasound Start: 08-16-2022 End: 08-16-2022 Dr. Jam Verde Work Phone: [facility]-Outpatient Pavilion Ultrasound Start: 08-08-2022 Non-patient / Non-visit Dr. Jam Verde Work Phone: [facility] Start: 08-08-2022 Dr. Jam Verde Work Phone: [facility] Start: 08-08-2022 Dr. Jam Verde Work Phone: [facility]-Radiation Oncology Start: 08-07-2022 End: 08-07-[address] Jam Verde Work Phone: [facility] Start: 08-07-2022 End: 08-07-2022 Dr. Jam Verde Work Phone: [facility] Start: 08-03-2022 Dr. Jam Verde Work Phone: [facility]-Occupational Therapy Start: 08-03-2022 Non-patient / Non-visit Dr. Jam Verde Work Phone: [facility] Start: 08-03-2022 End: 08-03-[address] Jam Verde Work Phone: [facility] Work Phone: Start: 08-03-2022 End: 08-03-[address] Jam Verde Work Phone: [facility]-Outpatient Bone Densitometry Start: 08-03-2022 End: 08-03-2022 Dr. Jam Verde Work Phone: [facility] Start: 07-31-2022 End: 08-25-[address] Jam Verde Work Phone: [facility] Work Phone: Start: 07-31-2022 End: 08-25-[address] Jam Verde Work Phone: [facility]-Nutritional Services Start: 07-31-2022 End: 08-25-2022 Dr. Jam [facility]de [facility] Start: 07-24-2022 End: 07-24-[address] Jam Verde Work Phone: [facility] Start: 07-24-2022 End: 07-24-2022 Dr. Jam Verde Work Phone: [facility] Start: 07-24-2022 Dr. Jam Verde Work Phone: [facility] Start: 07-24-2022 End: 07-24-[address] Jam Verde Work Phone: [facility] Start: 07-24-2022 End: 07-24-2022 Dr. Jam Verde Work Phone: [facility] Start: 07-19-2022 End: 07-25-[address] Jam Verde Work Phone: [facility] Work Phone: Start: 07-19-2022 End: 07-25-2022 Dr. Jam Verde [facility] Start: 07-14-2022 End: 07-14-[address] Jam Verde Work Phone: [facility] Work Phone: Start: 07-14-2022 End: 07-14-2022 Dr. Jam Verde Work Phone: [facility] Start: 07-13-2022 Dr. Jam Verde Work Phone: [facility] Start: 07-12-2022 Dr. Jam Verde Work Phone: [facility] Start: 07-11-2022 Dr. Jam Verde Work Phone: [facility] Start: 07-10-2022 Dr. Jam Verde Work Phone: [facility] Start: 07-10-2022 Dr. Jam Verde Work Phone: [facility] Start: 07-06-2022 Dr. Jam Verde Work Phone: [facility] Start: 07-04-2022 Dr. Jam Verde Work Phone: [facility] Start: 07-03-2022 Dr. Jam Verde Work Phone: [facility] Start: 07-01-2022 Dr. Jam Verde Work Phone: [facility] Start: 06-30-2022 End: 07-13-2022 Dr. Jam Verde Work Phone: [facility]-Rehab Unit Start: 06-30-2022 Dr. Jam Verde Work Phone: [facility] Start: 06-29-2022 Dr. Jam Verde Work Phone: [facility] Start: 06-28-2022 Dr. Jam Verde Work Phone: [facility] Start: 06-27-2022 End: 06-30-2022 Evaluation and management of inpatient Dr. Jam Verde Work Phone: [facility] Work Phone: Start: 06-27-2022 End: 06-30-2022 Dr. Jam Verde Work Phone: [facility]-Medical Surgical 3 Start: 06-27-2022 Dr. Jam Verde Work Phone: [facility] Start: 06-27-2022 Dr. Jam Verde Work Phone: [facility] Start: 06-26-2022 Dr. Jam Verde Work Phone: [facility] Start: 06-23-2022 Dr. Jam Verde Work Phone: [facility] Start: 06-22-2022 Dr. Jam Verde Work Phone: [facility] Start: 06-20-2022 Dr. Jam Verde Work Phone: [facility] Start: 06-20-2022 Dr. Jam Verde Work Phone: [facility] Start: 06-17-2022 Dr. Jam Verde Work Phone: [facility] Start: 06-16-2022 Dr. Jam Verde Work Phone: [facility] Start: 06-15-2022 Dr. Jam Verde Work Phone: [facility] Start: 06-14-2022 Dr. Jam Verde Work Phone: [facility] Start: 06-12-2022 Dr. Jam Verde Work Phone: [facility] Start: 06-10-2022 Dr. Jam Verde Work Phone: [facility] Start: 06-09-2022 Dr. Jam Verde Work Phone: [facility] Start: 06-09-2022 Dr. Jam Verde Work Phone: [facility] Start: 06-08-2022 Dr. Jam Verde Work Phone: [facility] Start: 06-08-2022 Dr. Jam Verde Work Phone: [facility] Start: 06-07-2022 Dr. Jam Verde Work Phone: [facility] Start: 06-06-2022 Dr. Jam Verde Work Phone: [facility] Start: 06-05-2022 Dr. Jam Verde Work Phone: [facility] Start: 06-03-2022 Dr. Jam Verde Work Phone: [facility] Start: 06-02-2022 Dr. Jam Verde Work Phone: [facility] Start: 06-01-2022 Dr. Jam Verde Work Phone: [facility] Start: 05-31-2022 Dr. Jam Verde Work Phone: [facility] Start: 05-30-2022 Dr. Jam Verde Work Phone: [facility] Start: 05-30-2022 Dr. Jam Verde Work Phone: [facility] Start: 05-28-2022 End: 06-27-2022 Dr. Jam Verde Work Phone: [facility]-Rehab Unit Start: 05-28-2022 Dr. Jam Verde Work Phone: [facility] Start: 05-27-2022 Non-patient / Non-visit Dr. Jam Verde Work Phone: [facility] Start: 05-27-2022 Dr. Jam Verde Work Phone: [facility] Start: 05-27-2022 Non-patient / Non-visit Dr. Jam Verde Work Phone: [facility] Start: 05-27-2022 Dr. Jam Verde Work Phone: [facility] Start: 05-26-2022 Non-patient / Non-visit Dr. Jam Verde Work Phone: [facility] Start: 05-26-2022 Dr. Jam Verde Work Phone: [facility] Start: 05-25-2022 Non-patient / Non-visit Dr. Jam Verde Work Phone: [facility] Start: 05-25-2022 Dr. Jam Verde Work Phone: [facility] Start: 05-25-2022 Non-patient / Non-visit Dr. Jam Verde Work Phone: [facility] Start: 05-25-2022 Dr. Jam Verde Work Phone: [facility] Start: 05-25-2022 End: 05-25-2022 Dr. Jam Verde Work Phone: [facility] Start: 05-24-2022 Non-patient / Non-visit Dr. Jam Verde Work Phone: [facility] Start: 05-24-2022 Dr. Jam Verde Work Phone: [facility] Start: 05-24-2022 Non-patient / Non-visit Dr. Jam Verde Work Phone: [facility] Start: 05-24-2022 Dr. Jam Verde Work Phone: [facility] Start: 05-23-2022 Non-patient / Non-visit Dr. Jam Verde Work Phone: [facility] Start: 05-23-2022 Dr. Jam Verde Work Phone: [facility] Start: 05-23-2022 Non-patient / Non-visit Dr. Jam Verde Work Phone: [facility] Start: 05-23-2022 Dr. Jam Verde Work Phone: [facility] Start: 05-23-2022 Non-patient / Non-visit Dr. Jam Verde Work Phone: [facility] Start: 05-23-2022 Dr. Jam Verde Work Phone: [facility] Start: 05-22-2022 Non-patient / Non-visit Dr. Jam Verde Work Phone: [facility] Start: 05-22-2022 Evaluation and management of inpatient Dr. Jam Verde Work Phone: [facility]-Progressive Care Unit Start: 05-22-2022 End: 05-28-2022 Dr. Jam Verde [facility] Start: 05-18-[address] Jam Verde Work Phone: [facility] Start: 05-18-2022 Dr. Jam Verde Work Phone: [facility] Start: 05-16-2022 End: 05-16-[address] Jam Verde Work Phone: [facility] Start: 05-16-2022 End: 05-16-2022 Dr. Jam Verde Work Phone: [facility] Start: 05-15-2022 Non-patient / Non-visit Dr. Jam Verde Work Phone: [facility] Start: 05-15-2022 Dr. Jam Verde Work Phone: [facility] Start: 05-15-2022 End: 05-27-[address] Jam Verde Work Phone: [facility] Work Phone: Start: 05-15-2022 End: 05-27-[address] Jam Verde Work Phone: [facility] Start: 05-15-[address] Jam Verde Work Phone: [facility] Start: 05-15-2022 End: 05-27-2022 Dr. Jam Verde Work Phone: [facility] Start: 05-09-2022 End: 05-09-[address] Jam Verde Work Phone: [facility] Start: 05-09-2022 End: 05-09-2022 Dr. Jam Verde Work Phone: [facility] Start: 05-08-2022 Non-patient / Non-visit Dr. Jam Verde Work Phone: [facility] Start: 05-08-2022 Dr. Jam Verde Work Phone: [facility] Start: 05-02-2022 End: 05-02-[address] Jam Verde Work Phone: [facility] Start: 05-02-2022 End: 05-02-2022 Dr. Jam Verde Work Phone: [facility] Start: 05-01-2022 Non-patient / Non-visit Dr. Jam Verde Work Phone: [facility] Start: 05-01-2022 Dr. Jam Verde Work Phone: [facility] Start: 04-27-2022 End: 04-27-[address] Jam Verde Work Phone: [facility] Work Phone: Start: 04-27-2022 End: 04-27-[address] Jam Verde [facility] Start: 04-27-2022 End: 04-27-2022 Dr. Jam Verde [facility] Start: 04-27-2022 End: 04-27-[address] Jam Verde Work Phone: [facility] Start: 04-27-2022 End: 04-27-2022 Dr. Jam Verde Work Phone: [facility] Start: 04-27-[address] Jam Verde Work Phone: [facility] Start: 04-24-2022 Non-patient / Non-visit Dr. aJm Verde Work Phone: [facility] Start: 04-24-2022 Dr. Jam Verde Work Phone: [facility] Start: 04-24-2022 End: 04-24-[address] Jam Verde Work Phone: [facility] Start: 04-24-2022 End: 04-26-[address] Jam Verde Work Phone: [facility] Start: 04-24-2022 End: 04-26-2022 Dr. Jam Verde Work Phone: [facility] Start: 04-18-2022 End: 04-18-[address] Jam Verde Work Phone: [facility] Start: 04-18-2022 End: 04-18-2022 Dr. Jam Verde Work Phone: [facility] Start: 04-17-2022 Non-patient / Non-visit Dr. Jam Verde Work Phone: [facility] Start: 04-17-2022 Dr. Jam Verde Work Phone: [facility] Start: 04-12-2022 Non-patient / Non-visit Dr. Jam Verde Work Phone: [facility] Start: 04-12-2022 Dr. Jam Verde Work Phone: [facility] Start: 04-11-2022 End: 04-11-[address] Jam Verde Work Phone: [facility] Start: 04-11-2022 End: 04-11-2022 Dr. Jam Verde Work Phone: [facility] Start: 04-10-2022 Non-patient / Non-visit Dr. Jam Verde Work Phone: [facility] Start: 04-10-2022 Dr. Jam Verde Work Phone: [facility] Start: 04-06-2022 End: 04-06-[address] Jam Verde Work Phone: [facility] Start: 04-06-2022 End: 04-06-2022 Dr. Jam Verde Work Phone: [facility] Start: 04-05-2022 Non-patient / Non-visit Dr. Jam Verde Work Phone: [facility] Start: 04-05-2022 Dr. Jam Verde Work Phone: [facility] Start: 04-04-2022 End: 04-04-[address] Jam Verde Work Phone: [facility] Start: 04-04-2022 End: 04-04-2022 Dr. Jam Verde Work Phone: [facility] Start: 03-28-2022 End: 03-28-[address] Jam Verde Work Phone: [facility] Start: 03-28-2022 End: 03-28-2022 Dr. Jam Verde Work Phone: [facility] Start: 03-26-2022 End: 03-27-2022 Emergency department patient visit Dr[facility] Jam Verde [facility] Start: 03-26-2022 End: 03-27-2022 Dr. Jam Verde [facility] Start: 03-23-2022 Non-patient / Non-visit Dr. Jam Verde Work Phone: [facility] Start: 03-23-2022 Dr. Jam Verde Work Phone: [facility] Start: 03-23-[address] Jam Verde [facility] Start: 03-22-2022 End: 03-22-[address] Jam Verde Work Phone: [facility] Start: 03-22-2022 End: 03-22-2022 Dr. Jam Verde Work Phone: [facility] Start: 03-22-2022 End: 03-22-2022 Emergency department patient visit Dr. Jam Verde [facility] Start: 03-22-2022 End: 03-22-2022 Dr. Jam Verde Work Phone: [facility]-Emergency Department Start: 03-21-[address] Jam Verde Work Phone: [facility] Start: 03-21-2022 End: 03-21-[address] Jam Verde Work Phone: [facility] Start: 03-21-2022 End: 03-21-2022 Dr. Jam Verde Work Phone: [facility] Start: 03-14-2022 End: 03-14-[address] Jam Verde Work Phone: [facility] Start: 03-14-2022 End: 03-14-2022 Dr. Jam Verde Work Phone: [facility] Start: 03-14-[address] Jam Verde Work Phone: [facility] Start: 03-08-2022 End: 03-08-[address] Jam Verde Work Phone: [facility] Work Phone: Start: 03-08-2022 End: 03-08-[address] Jam Verde Work Phone: [facility]-Laboratory, Specimen Start: 03-08-2022 End: 03-08-2022 Dr. Jam Verde Work Phone: [facility]-Laboratory, Specimen Start: 03-06-2022 End: 03-06-[address] Jam Verde Work Phone: [facility] Start: 03-06-2022 End: 03-06-2022 Dr. Jam Verde Work Phone: [facility] Start: 02-28-2022 End: 02-28-[address] Jam Verde Work Phone: [facility] Start: 02-23-2022 End: 02-23-[address] Jam Verde Work Phone: [facility] Start: 02-17-2022 End: 02-17-[address] Jam Verde Work Phone: [facility] Start: 02-14-2022 End: 02-14-[address] Jam Verde Work Phone: [facility] Start: 02-07-2022 Non-patient / Non-visit Dr. Jam Verde Work Phone: [facility] Start: 02-07-2022 End: 02-07-2022 Admission to same day surgery center Dr. 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 Jam Verde Work Phone: [facility] Work Phone: Start: 02-03-2022 End: 02-03-[address] Jam Verde Work Phone: [facility] Start: 02-02-2022 End: 02-02-[address] Jam Verde Work Phone: [facility] Start: 01-31-2022 Non-patient / Non-visit Dr. Jam Verde Work Phone: [facility] Start: 01-31-2022 End: 01-31-[address] Jam Verde Work Phone: [facility] Work Phone: Start: 01-31-2022 End: 01-31-[address] Jam Verde Work Phone: [facility]-Cardiovascular Services Start: 01-31-2022 End: 01-31-[address] Jam Verde Work Phone: [facility] Start: 01-26-2022 End: 01-26-[address] Jam Verde Work Phone: [facility] Work Phone: Start: 01-26-2022 End: 01-26-[address] Jam Verde Work Phone: [facility] Start: 01-25-[address] aJm Verde Work Phone: [facility] Start: 01-25-2022 End: 01-25-[address] Jam Verde Work Phone: [facility] Start: 01-24-2022 Telephone encounter Self Hem atology/Oncology Comment on above: New Patient Start: 01-23-2022 Non-patient / Non-visit Dr. Jam Verde Work Phone: [facility] Start: 01-18-2022 End: 01-18-[address] Jam Verde Work Phone: [facility] Work Phone: Start: 01-18-2022 End: 01-18-[address] Jam Verde Work Phone: [facility]-Laboratory, Specimen Start: 01-18-2022 End: 01-18-[address] Jam Verde Work Phone: [facility] Start: 01-13-2022 End: 01-13-[address] Jam Verde Work Phone: [facility] Work Phone: Start: 01-13-2022 End: 01-13-2022 Patient encounter procedure [facility]-Outpatient Breast Imaging Start: 01-11-2022 End: 01-11-2022 Patient encounter procedure [facility]-Outpatient Breast Imaging Start: 12-26-2021 End: 12-26-2021 Patient encounter procedure [facility]-Laboratory, [place] [facility] Date Procedure Procedure Detail Performing Clinician Start: 10-09-2024 Dual energy X-ray absorptiometry Dr. Valerie Verde MD Work Phone: Start: 07-21-[address] Jam Verde MD Work Phone: Start: 07-21-2024 Measurement of renal function Dr. Jam stokes MD Work Phone: Comment on above: GFR Calc Start: 07-16-[address] Jam martines MD Work Phone: Start: 07-02-[address] Jam Verde Work Phone: Start: 01-15-2023 Screening mammography of right breast Dr. Jam Verde Work Phone: Start: 12-04-2022 CT of thorax with contrast Dr. Jam martines Work Phone: Start: 08-17-[address] Jam Verde Work Phone: Start: 08-17-2022 Dr. Jam Verde Work Phone: Start: 08-16-[address] Jam Verde Work Phone: Start: 08-03-2022 Dual energy X-ray absorptiometry Dr. Valerie Verde Work Phone: Start: 06-27-2022 Dr. Jam Verde Work Phone: Start: 06-09-[address] Jam Verde Work Phone: Start: 06-08-2022 CT of chest without contrast Dr. Jam hills Work Phone: Start: 06-08-2022 Diagnostic radiography of abdomen, decubitus and erect Dr. Jam Verde Work Phone: Start: 05-25-[address] Jam Verde Work Phone: Start: 05-25-2022 Plain chest X-ray Dr. Jam Verde Work Phone: Start: 05-25-2022 Plain X-ray abdomen Dr. Jam Verde Work Phone: Start: 05-24-2022 Computed tomography of abdomen and pelvis with contrast Dr. Jam Verde Work Phone: Start: 05-24-2022 Plain chest X-ray Dr. Jam Verde Work Phone: Start: 05-24-2022 Plain X-ray abdomen Dr. Jam Verde Work Phone: Start: 05-23-2022 CT angiography of chest with contrast Dr. Jam Verde Work Phone: Start: 05-23-[address] Jam martines Work Phone: Start: 05-22-2022 Computed tomography of abdomen and pelvis with intravenous contrast Dr. Jam Verde Work Phone: Start: 05-03-[address] Jam Verde Work Phone: Start: 05-03-2022 Measurement of occult blood in stool specimen using immunoassay Dr. Jam Verde Work Phone: Start: 03-26-2022 CT angiography of chest with contrast Dr. Jam Verde Work Phone: Start: 03-22-2022 CT angiography of chest with contrast Dr. Jam Verde Work Phone: Start: 02-22-2022 Positron emission tomography with computed tomography Dr. Jam Verde Work Phone: Start: 02-07-2022 Radiographic procedure of chest Dr. Jam Verde Work Phone: Start: 02-07-2022 Implantation to cardiovascular system Dr. Jam Verde Work Phone: Start: 02-07-[address] Jam Verde Work Phone: Start: 02-02-2022 MRI of bilateral breasts with contrast Dr. Jam Verde Work Phone: Start: 01-26-[address] Jam Verde Work Phone: Start: 01-13-2022 Mammography Start: 01-11-2022 Screening mammography Anaerobic microbial culture Dr. Jam Verde Work Phone: Anaerobic microbial culture Dr. Jam Verde Work Phone: Anaerobic microbial culture Dr. Jam Verde Work Phone: Anaerobic microbial culture Dr. Jam Verde Work Phone: Bacteria identified in Urine by Culture Dr. Jam Verde Work Phone: Clostridium difficile detection Dr. Jam Verde Work Phone: Clostridium difficile detection Dr. Jam Verde Work Phone: H/O: surgery Dr. Jam Verde Work Phone: Comment on above: left Investigation of tra nsfusion reaction Dr. Jam Verde Work Phone: Investigation of tra nsfusion reaction Dr. Jam Verde Work Phone: Investigation of tra nsfusion reaction Dr. Jam Verde Work Phone: Investigation of tra nsfusion reaction Dr. Jam Verde Work Phone: Lactoferrin measurement Dr. Jam Verde Work Phone: Measurement of occul t blood in stool specimen using immunoassay Dr. Jam Verde Work Phone: Microbial culture, routine D mohit Verde Work Phone: Microbial culture, routine D mohit Verde Work Phone: Microbial culture, routine D mohit Verde Work Phone: Microbial culture, routine D mohit Verde Work Phone: Ova OR parasites identification Dr. Jam Verde Work Phone: SARS-CoV-2 & FLU Antigen (Rapid) Dr. Jam Verde Work Phone: Urine culture Dr. Jam Verde Work Phone: Urine culture Dr. Jam Verde Work Phone: Urine culture Dr. Jam Verde Work Phone: Viral antigen assay Dr. Jam Verde Work Phone: Dr. Jam Verde Work Phone: Dr. Jam Verde Work Phone: Dr. Jam Verde Work Phone: Plan of Treatment Date Care Activity Detail Author Start: 10-27-2024 [facility] Start: 07-02-2023 [facility] Start: 05-07-2023 Patient referral [facility] Work Phone: Start: 01-22-2023 Patient referral [facility] Work Phone: Start: 12-04-2022 Venous catheter care management [facility] Start: 08-17-2022 Anes nrv musc tndn fscia bursa shoulder & axilla [facility] Start: 08-17-2022 Axillary lymphadenectomy complete [facility] Start: 08-17-2022 Patient discharge [facility] Start: 08-17-2022 Venous catheter care management [facility] Start: 08-07-2022 Venous catheter care management [facility] Start: 08-07-2022 Patient referral to dietitian [facility] Start: 08-03-2022 Dual energy X-ray absorptiometry [facility] Start: 08-03-2022 DXA Bone [Mass/Area] Bone density [facility] Start: 07-24-2022 Patient referral [facility] Work Phone: Start: 07-13-2022 Patient discharge [facility] Start: 07-12-2022 Following clinical pathway protocol [facility] Start: 07-11-2022 Referral to service [facility] Start: 07-11-2022 [facility] Start: 07-04-2022 [facility] Start: 07-01-2022 [facility] Start: 07-01-2022 Wound care [facility] Start: 06-30-2022 Following clinical pathway protocol [facility] Start: 06-30-2022 Me[address]uring intake and output [facility] Start: 06-30-2022 Urinary bladder training [facility] Start: 06-30-2022 Wound care [facility] Start: 06-30-2022 Referral to service [facility] Start: 06-30-2022 Admission procedure [facility] Start: 06-30-2022 Patient referral to dietitian [facility] Start: 06-30-2022 Referral to occupational therapist [facility] Start: 06-30-2022 Vital signs measurements [facility] Start: 06-30-2022 End: 06-30-2022 [facility] Start: 06-30-2022 Patient discharge [facility] Start: 06-28-2022 End: 06-29-2022 [facility] Start: 06-28-2022 Provision of activity privileges [facility] Start: 06-28-2022 Application of intermittent pneumatic compression device [facility] Start: 06-27-2022 Provision of activity privileges [facility] Start: 06-27-2022 Admission procedure [facility] Start: 06-27-2022 Venous catheter care management [facility] Start: 06-27-2022 Referral to occupational therapist [facility] Start: 06-27-2022 Referral to service [facility] Start: 06-27-2022 Catheterization of vein [facility] Start: 06-27-2022 Maintenance of drainage tube [facility] Start: 06-27-2022 Me[address] intake and output [facility] Start: 06-27-2022 Notification of physician [facility] Start: 06-27-2022 Vital signs measurements [facility] Start: 06-27-2022 End: 06-27-2022 [facility] Start: 06-27-2022 Admission procedure [facility] Start: 06-27-2022 Patient discharge [facility] Start: 06-26-2022 Following clinical pathway protocol [facility] Start: 06-26-2022 [facility] Start: 06-26-2022 End: 06-27-2022 Patient referral to dietitian [facility] Start: 06-25-2022 [facility] Start: 06-24-2022 [facility] Start: 06-20-2022 Consultation [facility] Start: 06-15-2022 [facility] Start: 06-09-2022 [facility] Start: 06-08-2022 [facility] Start: 06-08-2022 Catheterization of vein [facility] Start: 06-08-2022 [facility] Start: 06-08-2022 Referral to gastroenterology service [facility] Start: 06-08-2022 Administration of blood product [facility] Start: 06-07-2022 [facility] Start: 06-06-2022 [facility] Start: 06-02-2022 [facility] Start: 06-01-2022 Application of elastic bandage [facility] Start: 05-31-2022 [facility] Start: 05-30-[address] output [facility] Start: 05-30-2022 Consultation [facility] Start: 05-30-2022 [facility] Work Phone: Start: 05-29-2022 [facility] Work Phone: Start: 05-28-2022 Referral to service [facility] Start: 05-28-2022 Speech therapy assessment [facility] Start: 05-28-2022 Following clinical pathway protocol [facility] Start: 05-28-2022 Venous catheter care management [facility] Start: 05-28-2022 Patient referral to dietitian [facility] Start: 05-28-2022 Urinary bladder training [facility] Start: 05-28-2022 Wound care [facility] Start: 05-28-2022 Admission procedure [facility] Start: 05-28-2022 Patient referral to dietitian [facility] Start: 05-28-2022 Vital signs measurements [facility] Start: 05-28-2022 End: 05-28-2022 [facility] Start: 05-28-2022 Referral to occupational therapist [facility] Start: 05-28-2022 Patient discharge [facility] Start: 05-28-2022 [facility] Work Phone: Start: 05-28-2022 Incentive spirometry [facility] Start: 05-26-2022 Referral to occupational therapist [facility] Start: 05-26-2022 Referral to service [facility] Start: 05-25-2022 Care planning and problem solving actions [facility] Start: 05-25-2022 Venous catheter care management [facility] Start: 05-25-2022 Consultation [facility] Start: 05-25-2022 [facility] Start: 05-24-2022 Care planning and problem solving actions [facility] Start: 05-24-2022 Consultation [facility] Start: 05-23-2022 [facility] Work Phone: Start: 05-23-2022 Following clinical pathway protocol [facility] Start: 05-23-2022 Wound care [facility] Start: 05-23-2022 Administration of blood product [facility] Start: 05-22-2022 Blood culture [facility] Work Phone: Start: 05-22-2022 Blood chemistry [facility] Work Phone: Start: 05-22-2022 Following clinical pathway protocol [facility] Start: 05-22-2022 Venous catheter care management [facility] Start: 05-22-2022 Assessment of risk of venous thromboembolism [facility] Start: 05-22-2022 Consultation [facility] Start: 05-22-2022 Consultation for treatment [facility] Start: 05-22-2022 Incentive spirometry [facility] Start: 05-22-2022 Inhalation therapy procedure [facility] Start: 05-22-2022 Insertion of catheter into peripheral vein [facility] Start: 05-22-[address] output [facility] Start: 05-22-2022 Notification of physician [facility] Start: 05-22-2022 Oxygen therapy [facility] Start: 05-22-2022 Providing care according to standard [facility] Start: 05-22-2022 Provision of activity privileges [facility] Start: 05-22-2022 Referral to general surgeon [facility] Start: 05-22-2022 [facility] Start: 05-22-2022 Care planning and problem solving actions [facility] Start: 05-22-2022 Blood culture [facility] Work Phone: Start: 05-22-2022 Verification routine [facility] Work Phone: Start: 05-22-2022 Admission procedure [facility] Start: 05-22-2022 [facility] Work Phone: Start: 05-22-2022 [facility] Work Phone: Start: 05-22-2022 Patient referral to dietitian [facility] Start: 05-09-2022 Patient referral [facility] Work Phone: Start: 05-03-2022 Administration of blood product [facility] Start: 05-03-2022 [facility] Start: 04-27-2022 Providing care according to standard [facility] Start: 04-27-2022 Iv infusion therapy prophylaxis/dx ea hour [facility] Start: 04-27-2022 Iv infusion therapy/prophylaxis /dx 1st to 1 hr [facility] Start: 04-04-2022 Patient referral [facility] Work Phone: Start: 03-22-2022 Chemotherapy care management [facility] Start: 03-22-2022 [facility] Start: 02-28-2022 Venous catheter care management [facility] Start: 02-28-2022 Venous catheter care management [facility] Start: 02-07-2022 Anesthesia access central venous circulation ANESTH VASCULAR ACCESS [facility] Work Phone: Start: 02-07-2022 Bx breast w/device 1st lesion ultrasound guid BX BREAST 1ST LESION US IMAG [facility] Work Phone: Start: 02-07-2022 Bx/exc lymph node open superficial BIOPSY/REMOVAL LYMPH NODES [facility] Work Phone: Start: 02-07-2022 Insj tunneled ctr vad w/subq port age 3 yr/> INSERT TUNNELED CV CATH [facility] Work Phone: Start: 02-07-2022 Patient discharge [facility] Work Phone: Start: 02-07-2022 Fluoroscopic guidance O.R. Fluoro for CVP/PICC/PORT [facility] Work Phone: Start: 02-07-2022 Implantation to cardiovascular system Insertion, Vascular Port (Right) [facility] Work Phone: Start: 01-26-2022 Influenza vaccination INFLUENZA (#1) [facility] Start: 01-26-2022 Patient referral [facility] Work Phone: Start: 01-23-2022 Patient referral [facility] Work Phone: Start: 2018 Mammography MAMMOGRAM [facility] Start: 2008 HPV TESTING HPV TESTING [facility] Start: 10-23-1999 PAP TESTING PAP TESTING [facility] Start: 1997 Urine microalbumin profile DTAP,TDAP,TD (1 - Tdap) [facility] Start: 1996 HEPATITIS C SCREENING HEPATITIS C SCREENING [facility] Start: 1996 HIV SCREENING HIV SCREENING [facility] Start: 1990 Adult depression screening assessment DEPRESSION SCREENING [facility] Start: 04-24-1979 COVID-19 VACCINE (#1) COVID-19 VACCINE (#1) [facility] Start: 1978 HEPATITIS B (1 of 3 - 3-dose series) [facility] Alanine aminotransfe rase [Enzymatic activity/volume] in Serum or Plasma [facility] Work Phone: Alanine aminotransfe rase [Enzymatic activity/volume] in Serum or Plasma [facility] Albumin [Mass/volume ] in Serum or Plasma [facility] Work Phone: Albumin [Mass/volume ] in Serum or Plasma [facility] Alkaline phosphatase [Enzymatic activity/volume] in Serum or Plasma [facility] Work Phone: Alkaline phosphatase [Enzymatic activity/volume] in Serum or Plasma [facility] Anaerobic microbial culture Anaerobic Cul ture [facility] Work Phone: Anion gap in Serum or Plasma [facility] Anion gap measurement [facility] Work Phone: Aspartate aminotrans ferase [Enzymatic activity/volume] in Serum or Plasma [facility] Work Phone: Bacteria identified in Blood by Culture Blood Culture [facility] Work Phone: Bacteria identified in Urine by Culture Urine Culture [facility] Work Phone: Bilirubin, total measurement [facility] Work Phone: Bilirubin, total measurement [facility] Blood chemistry [facility] Work Phone: Blood chemistry [facility] Blood chemistry [facility] Blood culture [facility] Work Phone: BUN/Creatinine ratio [facility] Work Phone: BUN/Creatinine ratio [facility] Calcium [Mass/volume ] in Serum or Plasma [facility] Work Phone: Calcium [Mass/volume ] in Serum or Plasma [facility] Carbon dioxide, tota l [Moles/volume] in Central venous blood [facility] Carbon dioxide, tota l [Moles/volume] in Serum or Plasma [facility] Work Phone: CBC W Auto Different ial panel - Blood [facility] Work Phone: CBC W Auto Different ial panel - Blood [facility] CBC W Auto Different ial panel - Blood [facility] CBC W Auto Different ial panel - Blood [facility] CBC W Auto Different ial panel - Blood [facility] Chloride [Moles/volu me] in Serum or Plasma [facility] Work Phone: Cholesterol [Mass/vo lume] in Serum or Plasma [facility] Cholesterol in HDL [Mass/volume] in Serum or Plasma [facility] Creatinine [Mass/vol ume] in Serum or Plasma [facility] Creatinine [Moles/vo lume] in Serum or Plasma [facility] Work Phone: DXA Bone [Mass/Area] Bone density [facility] Glucose [Mass/volume ] in Serum or Plasma [facility] Work Phone: Glucose [Mass/volume ] in Serum or Plasma [facility] Hematocrit [Volume F raction] of Blood [facility] Work Phone: Hemoglobin [Mass/vol ume] in Blood [facility] Work Phone: Leukocytes [#/volume ] in Blood [facility] Work Phone: Low density lipoprot ein cholesterol measurement [facility] Magnesium [Mass/volu me] in Serum or Plasma [facility] Work Phone: Magnesium [Mass/volu me] in Serum or Plasma [facility] Magnesium [Mass/volu me] in Serum or Plasma [facility] Magnesium [Mass/volu me] in Serum or Plasma [facility] Mean corpuscular hem oglobin concentration determination [facility] Work Phone: Mean corpuscular hem oglobin determination [facility] Work Phone: Measurement of renal function [facility] Work Phone: Measurement of renal function [facility] MG Breast - right Screening [facility] MG Breast - right Screening [facility] Neutrophil count [facility] Work Phone: Neutrophil percent differential count [facility] Work Phone: Ova and parasites id entified in Unspecified specimen by Light microscopy [facility] Path report.final Dx Spec [facility] Work Phone: Patient referral [facility] Work Phone: Platelets [#/volume] in Blood [facility] Work Phone: Positron emission to mography with computed tomography [facility] Work Phone: Potassium [Moles/vol ume] in Serum or Plasma [facility] Work Phone: Potassium measurement [facility] Red blood cell count [facility] Work Phone: Red cell distributio n width determination [facility] Work Phone: Serum chloride measurement [facility] Serum inorganic phos phate measurement [facility] Sodium [Moles/volume ] in Serum or Plasma [facility] Work Phone: Sodium measurement [facility] Total cholesterol:HD L ratio measurement [facility] Total protein measurement [facility] Work Phone: Total protein measurement [facility] Triglycerides measurement [facility] Urea nitrogen [Mass/ volume] in Serum or Plasma [facility] Work Phone: Urea nitrogen [Mass/ volume] in Serum or Plasma [facility] Urine test [facility] Heart limited [facility] Vitamin D, 25-hydrox y measurement [facility] VLDL cholesterol measurement [facility] [place] Date Payer Category Payer Self-pay [id number] 2022 Unknown [id number] 2022 Unknown 0 [id number] 2014 [id number] Unknown [id number] 2.16.8 [id number] Unknown [id number] 2.16.8 [id number] Unknown [id number] 2.16.8 [id number] Unknown [id number] 2.16.8 [id number] Unknown [id number] 2.16.8 [id number] Unknown [id number] 2.16.8 [id number] Unknown [id number] 2.16.8 [id number] Unknown [id number] 2.16.8 [id number] Unknown [id number] 2.16.8 [id number] Unknown [id number] 2.16.8 [id number] Unknown [id number] 2.16.8 [id number] Unknown [id number] 2.16.8 [id number] Social History Date Type Detail Facility Start: 08-23-2018 End: 07-02-2023 Tobacco smoking status [facility] Unknown if ever smoked [facility] Start: 1980 Sex Assigned At Female [facility] Start: 03-24-2024 Tobacco smoking status TXIS Never smoked tobacco [facility] Start: 01-06-2008 Alcohol intake 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) [facility] Start: 1980 Sex Assigned At Not on file [facility] NEGATED: Highlighted row [facility] Medical Equipment Procedure Code Equipment Code Equipment Origin al Text Equipment Identifier Dates Insertion, vascular access port ([id number]) [id number] FDA Start: 02-07-2022 Colonoscopy FDA Start: 06-09-2022 Colonoscopy FDA Start: 06-09-2022 Colonoscopy FDA Start: 06-09-2022 Colonoscopy FDA Start: 06-09-2022 Colonoscopy FDA Start: 06-09-2022 Colonoscopy FDA Start: 06-09-2022 Colonoscopy TRAY,PEG EFIT SF TY PULL 20FR FDA Start: 06-09-2022 Colonoscopy TRAY,PEG EFIT SF TY PULL 20FR FDA Start: 06-09-2022 Colonoscopy TRAY,PEG EFIT SF TY PULL 20FR FDA Start: 06-09-2022 Colonoscopy TRAY,PEG EFIT SF TY PULL 20FR FDA Start: 06-09-2022 Colonoscopy TRAY,PEG EFIT SF TY PULL 20FR FDA Start: 06-09-2022 Colonoscopy TRAY,PEG EFIT SF TY PULL 20FR FDA Start: 06-09-2022 Colonoscopy TRAY,PEG EFIT SF TY PULL 20FR FDA Start: 06-09-2022 Colonoscopy TRAY,PEG EFIT SF TY PULL 20FR FDA Start: 06-09-2022 Colonoscopy TRAY,PEG EFIT SF TY PULL 20FR FDA Start: 06-09-2022 Colonoscopy TRAY,PEG EFIT SF TY PULL 20FR FDA Start: 06-09-2022 Colonoscopy TRAY,PEG EFIT SF TY PULL 20FR FDA Start: 06-09-2022 FDA Start: 06-27-2022 FDA Start: 06-27-2022 FDA Start: 06-27-2022 FDA Start: 06-27-2022 FDA Start: 06-27-2022 [id number] FDA Start: 06-27-2022 FDA Start: 06-27-2022 FDA Start: 06-27-2022 FDA Start: 06-27-2022 FDA Start: 06-27-2022 FDA Start: 06-27-2022 FDA Start: 06-27-2022 FDA Start: 06-27-2022 FDA Start: 06-27-2022 FDA Start: 06-27-2022 FDA Start: 06-27-2022 FDA Start: 06-27-2022 FDA Start: 06-27-2022 FDA Start: 06-27-2022 FDA Start: 06-27-2022 FDA Start: 06-27-2022 FDA Start: 06-27-2022 FDA Start: 06-27-2022 FDA Start: 06-27-2022 FDA Start: 06-27-2022 FDA Start: 06-27-2022 FDA Start: 06-27-2022 FDA Start: 06-27-2022 FDA Start: 06-27-2022 FDA Start: 06-27-2022 FDA Start: 06-27-2022 FDA Start: 08-17-2022 FDA Start: 08-17-2022 SUTURE,LIGA CLIP MED LT200 FDA Start: 06-27-2022 SUTURE,LIGA CLIP MED LT200 FDA Start: 06-27-2022 SUTURE,LIGA CLIP SM LT-100 FDA Start: 06-27-2022 SUTURE,LIGA CLIP SM LT-100 FDA Start: 06-27-2022 SUTURE,LIGA CLIP SM LT-100 FDA Start: 06-27-2022 SUTURE,LIGA CLIP SM LT-100 FDA Start: 08-17-2022 SUTURE,LIGA CLIP SM LT-100 FDA Start: 08-17-2022 SUTURE,LIGA CLIP MED LT200 FDA Start: 06-27-2022 SUTURE,LIGA CLIP MED LT200 FDA Start: 06-27-2022 SUTURE,LIGA CLIP SM LT-100 FDA Start: 06-27-2022 SUTURE,LIGA CLIP SM LT-100 FDA Start: 06-27-2022 SUTURE,LIGA CLIP SM LT-100 FDA Start: 06-27-2022 SUTURE,LIGA CLIP SM LT-100 FDA Start: 08-17-2022 SUTURE,LIGA CLIP SM LT-100 FDA Start: 08-17-2022 SUTURE,LIGA CLIP MED LT200 FDA Start: 06-27-2022 SUTURE,LIGA CLIP MED LT200 FDA Start: 06-27-2022 SUTURE,LIGA CLIP SM LT-100 FDA Start: 06-27-2022 SUTURE,LIGA CLIP SM LT-100 FDA Start: 06-27-2022 SUTURE,LIGA CLIP SM LT-100 FDA Start: 06-27-2022 SUTURE,LIGA CLIP SM LT-100 FDA Start: 08-17-2022 SUTURE,LIGA CLIP SM LT-100 FDA Start: 08-17-2022 SUTURE,LIGA CLIP MED LT200 FDA Start: 06-27-2022 SUTURE,LIGA CLIP MED LT200 FDA Start: 06-27-2022 SUTURE,LIGA CLIP SM LT-100 FDA Start: 06-27-2022 SUTURE,LIGA CLIP SM LT-100 FDA Start: 06-27-2022 SUTURE,LIGA CLIP SM LT-100 FDA Start: 06-27-2022 SUTURE,LIGA CLIP SM LT-100 FDA Start: 08-17-2022 SUTURE,LIGA CLIP SM LT-100 FDA Start: 08-17-2022 SUTURE,LIGA CLIP MED LT200 FDA Start: 06-27-2022 SUTURE,LIGA CLIP MED LT200 FDA Start: 06-27-2022 SUTURE,LIGA CLIP SM LT-100 FDA Start: 06-27-2022 SUTURE,LIGA CLIP SM LT-100 FDA Start: 06-27-2022 SUTURE,LIGA CLIP SM LT-100 FDA Start: 06-27-2022 SUTURE,LIGA CLIP SM LT-100 FDA Start: 08-17-2022 SUTURE,LIGA CLIP SM LT-100 FDA Start: 08-17-2022 SUTURE,LIGA CLIP MED LT200 FDA Start: 06-27-2022 SUTURE,LIGA CLIP MED LT200 FDA Start: 06-27-2022 SUTURE,LIGA CLIP SM LT-100 FDA Start: 06-27-2022 SUTURE,LIGA CLIP SM LT-100 FDA Start: 06-27-2022 SUTURE,LIGA CLIP SM LT-100 FDA Start: 06-27-2022 SUTURE,LIGA CLIP SM LT-100 FDA Start: 08-17-2022 SUTURE,LIGA CLIP SM LT-100 FDA Start: 08-17-2022 SUTURE,LIGA CLIP MED LT200 FDA Start: 06-27-2022 SUTURE,LIGA CLIP MED LT200 FDA Start: 06-27-2022 SUTURE,LIGA CLIP SM LT-100 FDA Start: 06-27-2022 SUTURE,LIGA CLIP SM LT-100 FDA Start: 06-27-2022 SUTURE,LIGA CLIP SM LT-100 FDA Start: 06-27-2022 SUTURE,LIGA CLIP SM LT-100 FDA Start: 08-17-2022 SUTURE,LIGA CLIP SM LT-100 FDA Start: 08-17-2022 SUTURE,LIGA CLIP MED LT200 FDA Start: 06-27-2022 SUTURE,LIGA CLIP MED LT200 FDA Start: 06-27-2022 SUTURE,LIGA CLIP SM LT-100 FDA Start: 06-27-2022 SUTURE,LIGA CLIP SM LT-100 FDA Start: 06-27-2022 SUTURE,LIGA CLIP SM LT-100 FDA Start: 06-27-2022 SUTURE,LIGA CLIP SM LT-100 FDA Start: 08-17-2022 SUTURE,LIGA CLIP SM LT-100 FDA Start: 08-17-2022 SUTURE,LIGA CLIP MED LT200 FDA Start: 06-27-2022 SUTURE,LIGA CLIP MED LT200 FDA Start: 06-27-2022 SUTURE,LIGA CLIP SM LT-100 FDA Start: 06-27-2022 SUTURE,LIGA CLIP SM LT-100 FDA Start: 06-27-2022 SUTURE,LIGA CLIP SM LT-100 FDA Start: 06-27-2022 SUTURE,LIGA CLIP SM LT-100 FDA Start: 08-17-2022 SUTURE,LIGA CLIP SM LT-100 FDA Start: 08-17-2022 SUTURE,LIGA CLIP MED LT200 FDA Start: 06-27-2022 SUTURE,LIGA CLIP MED LT200 FDA Start: 06-27-2022 SUTURE,LIGA CLIP SM LT-100 FDA Start: 06-27-2022 SUTURE,LIGA CLIP SM LT-100 FDA Start: 06-27-2022 SUTURE,LIGA CLIP SM LT-100 FDA Start: 06-27-2022 SUTURE,LIGA CLIP SM LT-100 FDA Start: 08-17-2022 SUTURE,LIGA CLIP SM LT-100 FDA Start: 08-17-2022 SUTURE,LIGA CLIP MED LT200 FDA Start: 06-27-2022 SUTURE,LIGA CLIP MED LT200 FDA Start: 06-27-2022 SUTURE,LIGA CLIP SM LT-100 FDA Start: 06-27-2022 SUTURE,LIGA CLIP SM LT-100 FDA Start: 06-27-2022 SUTURE,LIGA CLIP SM LT-100 FDA Start: 06-27-2022 SUTURE,LIGA CLIP SM LT-100 FDA Start: 08-17-2022 SUTURE,LIGA CLIP SM LT-100 FDA Start: 08-17-2022 Goals Date Patient Goal Desired Activity /State Functional Status Date Assessment Result Facility 07-13-2022 Functional status With Assist of 1 [facility] Work Phone: 07-12-2022 Functional status Up ad marine [facility] Work Phone: 06-30-2022 Functional status Bedrest [facility] Work Phone: 06-27-2022 Functional status With Assist of 2 [facility] Work Phone: 06-24-2022 Functional status Bedrest [facility] Work Phone: 05-28-2022 Functional status Chair [facility] Work Phone: 05-27-2022 Functional status Bedrest [facility] Work Phone: Mental Status Date Assessment Result Facility 04-28-2024 Cognitive function Voice/Name [facility] Work Phone: 08-17-2022 Cognitive function Awake;Drowsy [facility] Work Phone: 08-17-2022 Cognitive function Person;Place;Time [facility] Work Phone: 07-13-2022 Cognitive function Voice/Name [facility] Work Phone: 06-30-2022 Cognitive function Voice/Name [facility] Work Phone: 06-27-2022 Cognitive function Voice/Name [facility] Work Phone: 06-26-2022 Cognitive function Appropriate;Cooperativ e [facility] Work Phone: 05-27-2022 Cognitive function Voice/Name [facility] Work Phone: 03-27-2022 Cognitive function Awake;Alert;A ppropriate;Fol lows Commands [facility] Work Phone: 02-07-2022 Cognitive function Voice/Name [facility] Work Phone: 02-07-2022 Cognitive function Voice/Name [facility] Work Phone: Clinical Notes 01-24-2022 to 10-27-2024 Note Date & Type Note Facility 10-27-2024 Progress note [facility] 10-27-2024 Progress note Note Date/Time October 27, 2024 11:38am [facility] [place] [address] OFFICE VISIT Date of Service: 10/27/24 1055 MR#: [id number] Acct: [id number] Name: BERE ESPOSITO Rep #: [id number] : 1980 From: Theodore buenrostro MD Age/Sex: 44/F Location: [facility] Status: Signed HPI Subjective Date of Service 10/27/24 Chief Complaint breast cancer on treatment History of Present Illness 44-year-old female with past medical history notable for muscle dystrophy who presented after an abnormal screening mammogram. January 11, 2022 screening mammogram: IMPRESSION: 2 cm irregular urinary density mass with microcalcifications in the upper inner quadrant of the left breast and focal compression views are recommended for further evaluation January 13, 2022 left diagnostic mammogram: IMPRESSION: Persistent soft tissue density with calcifications as described.? Biopsy recommended. ASSESSMENT CATEGORY: BIRADS Category 4:? Suspicious. January 18, 2022 Left breast, 11 o?clock, 5 cm, core biopsy: Invasive ductal carcinoma, nuclear grade 2-3 (1.2 cm in greatest length). ANTIBODY / CLONE RESULT E-Cad (ECH-6) positive CK8 (89lorbT15) positive Calponin-1 (WG439Q) negative CK5-6 (D5 & 1684) negative P40 (BC28) negative P53 (DO-7) positive, ~10% Ki-67 (30-9) positive, ~40% MORPHOMETRIC ANALYSIS ER (clone 6F11) >95%, moderate intensity MO (clone 16/1E2) >95%, strong intensity Her-2Neu (clone CB11) 3+ February 02, 2022 breast MRI: IMPRESSION: Irregular enhancing mass in the left breast compatible with the known left breast carcinoma. Two lymph nodes in the left axilla which have no convincing MRI evidence of involvement. ? February 07, 2022 Left axillary lymph node, biopsy: Lymph node tissue positive for metastatic carcinoma February 22, 2022 PET/CT initial staging: IMPRESSION: 1.? ABNORMAL EXAMINATION.? Left breast spiculated nodule meets criteria for viable neoplasm.? No evidence of metastasis. March 22, 2022 chest CTA: ER visit with dyspnea: IMPRESSION: Multiple tiny nodules in both lungs with increased interstitial markings more prominent at the lung bases.? Pulmonary metastases with possible lymphangitic spread should be ruled out. Bibasilar atelectasis more prominent on the right side with small right pleural effusion. Marked degree of dextroscoliosis with prior fusion. March 26, 2022 CTA: ER visit with dyspnea: CONCLUSION: Streak artifact.? No pulmonary emboli identified. Clear lungs.? The interstitial changes and multiple nodules present on the prior exam have resolved. Small right pleural effusion present on the prior study has resolved. June 08, 2022: CT chest: Preop to follow-up on previously noted lung nodules. IMPRESSION: Small right pleural effusion with right basilar atelectasis. Small pericardial effusion. June 27, 2022 Left breast, mastectomy and axillary node dissection: Negative for residual invasive carcinoma. Six out of six lymph nodes, negative for metastatic carcinoma. Fibrocystic changes, adenosis and intraductal hyperplasia with focal atypia. Frequent microcalcifications. Focal changes consistent with previous biopsy site. COMMENT BREAST CANCER SUMMARY (including previous biopsy specimen [id number]) Procedure ? total mastectomy (mastectomy and left axillary node dissection) Specimen laterality - left Tumor site ? as per previous biopsy specimen, 11 o?clock, 5 cm from nipple. Tumor size ? no residual invasive carcinoma. Histologic type ? previous biopsy specimen, invasive ductal carcinoma. Histologic grade (Uri grade): Previous biopsy specimen [id number]) Glandular/tubular differentiation score - 3 Nuclear pleomorphism score - 3 Mitotic count score - 1 No residual carcinoma. Ductal carcinoma in situ ? not seen Lobular carcinoma in situ ? not seen Tumor extension: Skin ? skin is present and uninvolved. Nipple ? ductal carcinoma in situ does not involve nipple epidermis. Skeletal muscle ? skeletal muscle is present and dissection tissue is free of tumor. Margins: Invasive carcinoma margin ? cannot be assessed as no invasive carcinoma is noted. Regional lymph nodes: Total number of lymph nodes examined - 6 Number of lymph nodes with macrometastases, micrometastases or isolated tumor cells - 0 Treatment effect in the breast ? definite response to presurgical therapy in invasive carcinoma. Treatment effect in lymph nodes ? no lymph node metastasis and no fibrous scarring in the lymph node is noted. Lymphvascular invasion ? not identified Dermal lymphvascular invasion - not identified Distant metastasis ? not applicable Additional Pathologic Findings ? fibrocystic changes, adenosis and intraductal hyperplasia with focal atypia. Ancillary Studies: Previously performed on same tumor ([id number] / [id number]) ER: positive (>95%, moderate intensity) MO: positive (>95%, strong intensity) Gzy5yin: positive (3+) Microcalcifications ? present in non-neoplastic tissue. Clinical History - Please make reference to previous specimens ([id number]) left breast, 11 o?clock, 5 cm, core biopsy with diagnosis of ?invasive ductal carcinoma? and ([id number]) left axillary lymph node, biopsy with diagnosis of ?lymph node tissue positive for metastatic carcinoma,? (metastatic focus measuring 3 mm in greatest dimension). Extranodal extension is not seen. PATHOLOGIC STAGE: pT0(y) pN0(y) pMx August 17, 2022: Further excision of axillary adenopathy: MICROSCOPIC DIAGNOSIS A. Left axillary lymph node, excision with ultrasound-guided needle localization: Adipose tissue with focal fat necrosis. See comment. B. Left axillary lymph node, excision: Four out of four lymph nodes, negative for metastatic carcinoma. December 04, 2022 CT chest: IMPRESSION: 1. No pulmonary nodules identified. 2. Resolution of the previously noted right pleural effusion. 3. Dextroscoliosis with multilevel fusion unchanged. 4. Mild scarring or atelectasis in the lingula. Treatment: * Neoadjuvant TCHP February -April,, switching to TCH (dropping Perjeta due to GI toxicity as of cycle 3) and receiving a total 4 cycles then stopping due to toxicity, admission to rehab unit. Herceptin to conclude 1 year of adjuvant treatment April 16, 2023 Tamoxifen May 2022?ongoing * Left mastectomy with axillary lymph node dissection June 27, 2022: Was in complete pathologic remission. * 09/07/2022 ? 10/12/2022: received adjuvant radiation therapy to the left chest wall and regional lymph nodes consisting of 5000 cGy delivered in 25 fractions.? She was treated with a 3D conformal treatment plan consisting of 6, 10, and 15 MV photons using a [facility] position. [facility] Medical History Neck pain on right side Imbalance Allergy Hot flashes due to tamoxifen Wears glasses Open wound Uses wheelchair Osteoporosis History of renal disease Anemia Blackout Gastric reflux PEG (percutaneous endoscopic gastrostomy) adjustment/replacement/removal Cardiology follow-up encounter Muscular dystrophy Encounter for monitoring cardiotoxic drug therapy Vitamin D deficiency Muscular dystrophy Nausea Phlegmonous peritonitis Localized peritonitis Sepsis without acute organ dysfunction Mucositis (ulcerative) due to antineoplastic therapy Diarrhea Dehydration Encounter for chemotherapy management Thrombocytosis Anemia Thrombocytosis Hypomagnesemia Leg sore Mucositis (ulcerative) due to antineoplastic therapy Oral candidiasis Lung nodule, multiple Hypokalemia Diarrhea due to drug CINV (chemotherapy-induced nausea and vomiting) Encounter for education Port-A-Cath in place Braces as ambulation aid Depression Anxiety Alcohol use Arthritis History of diverticulitis Heartburn Non-smoker CPAP (continuous positive airway pressure) dependence History of edema History of irregular heartbeat History of echocardiogram Elevated C-reactive protein (CRP) (12/26/21) Breast cancer, left breast Breast cancer Arthrogryposis Surgical History History of lymph node dissection of axilla S/P left mastectomy History of colonoscopy History of lymph node biopsy H/O release of tendon History of spinal fusion Family History Mother Diabetes Hypertension High cholesterol Thyroid disorder Uncle Cancer non-hodgkins lymphoma Grandfather Heart disease Grandmother Heart disease Brother Hypertension Unknown Breast cancer mother had 2 cousins with aggressive breast cancer Unknown Thyroid cancer maternal cousin Other Arthritis Depression Social History household members: family current occupational status: employed current occupation: [employer] work [employer] Smoking Status: Never smoker alcohol intake: current alcohol intake frequency: holidays/special occasions only details: occasional substance use type: does not use seatbelt use: always do you feel safe at home: Yes additional social history: Single ROS Constitutional Constitutional: Reports systems reviewed and no addt'l complaints, except as documented; Denies fatigue, fever(s), night sweats or weight loss Eyes Eyes: Reports systems reviewed and no addt'l complaints, except as documented ENT HEENT: Denies bleeding gums, mouth lesions, mouth pain or mucositis Cardiovascular Cardiovascular: Denies chest pain, leg ulcers or pedal edema Respiratory/Chest Respiratory/Chest: Reports systems reviewed and no addt'l complaints, except as documented; Denies cough, dyspnea or hemoptysis Gastrointestinal Gastrointestinal: Reports systems reviewed and no addt'l complaints, except as documented; Denies change in bowel habits Genitourinary Genitourinary: Reports systems reviewed and no addt'l complaints, except as documented; Denies dysuria Musculoskeletal Musculoskeletal: Reports systems reviewed and no addt'l complaints, except as documented; Denies back pain Integumentary Integumentary: Reports systems reviewed and no addt'l complaints, except as documented; Denies new lesions, rash or wounds Neurologic Neurologic: Reports systems reviewed and no addt'l complaints, except as documented, focal weakness and other Details: Chronic myopathy ; Denies frequent falls or paresthesias Psychiatric Psychiatric: Reports systems reviewed and no addt'l complaints, except as documented Endocrine Endocrinology: Reports systems reviewed and no addt'l complaints, except as documented and flushing; Denies fatigue Hematologic/Lymphatic Hematologic/Lymphatic: Reports systems reviewed and no addt'l complaints, exceptas documented; Denies easy bleeding, easy bruising or lymphadenopathy Allergic/Immunologic Allergic/Immunologic: Reports systems reviewed and no addt'l complaints, except as documented Intake Vital Signs 07/21/24 15:40 10/27/24 10:57 10/27/24 11:10 Height 4 ft 9 in 4 ft 9 in 4 ft 9 in Weight: 50.944 kg 50.065 kg BMI 24.3 23.8 BP 115/80 119/78 Blood Pressure Location Rt brachial Rt brachial Position Sitting Sitting Respiration 18 16 Pulse 102 H 84 Pulse Source Monitor Monitor Temp 98.3 F 97.6 F L Temperature Source Temporal Artery Temporal Artery Pulse Oximetry (%) 99 99 Oxygen Delivery Method room air room air Intake Is patient in pain?: No Allergies kiwi Allergy (Mild, Verified 10/27/24 11:08) Anaphylaxis Penicillins Allergy (Mild, Verified 10/27/24 11:08) Anaphylaxis Gadolinium-MRI Contrast Medium (contrast dye) Adverse Reaction (Verified 10/27/24 11:08) Shortness of breath Medications ?Medication ?Instructions ?Recorded ?Confirmed ?Type ascorbic acid (vitamin C) 500 mg 500 mg PO BIDCM suppl ement 06/30/22 10/27/24 History tablet calcitriol 0.5 mcg capsule 0.5 mcg PO DAILY #30 caps 0 07/12/22 10/27/24 Rx magnesium chloride 64 mg 128 mg (2 x 64 mg) PO TID #1 80 tabs 07/12/22 10/27/24 Rx (magnesium chloride) tablet,delayed release (Mag 64) pantoprazole 40 mg tablet,delayed 40 mg PO BID #60 tab s 07/12/22 10/27/24 Rx release spironolactone 25 mg tablet 25 mg PO BID Check with pr imary 07/12/22 10/27/24 Rx doctor #60 tabs vitamin E (dl, acetate) 180 mg 400 units PO DAILYCM trevizo pplement 07/12/22 10/27/24 Rx (400 unit) capsule #30 caps zinc sulfate 50 mg zinc (220 mg) 220 mg (4.4 x 50 mg z inc (220 mg)) 07/12/22 10/27/24 Rx capsule PO DAILY supplement #30 caps mirtazapine 7.5 mg tablet 7.5 mg PO DAILY 04/16/2307/22 History tamoxifen 20 mg tablet 20 mg PO DAILY #90 tabs 02/2610/27/24 Rx prednisone 50 mg tablet 50 mg PO .COMPLEX #3 tabs 10/27/24 Rx Have you fallen in the past year?: No Central Venous Access Central Venous Access: Yes Port/PICC: Port CBC October 27, 2024 reviewed in EMR, chemistry panel pending will be reviewed once final. Exam Physical Exam Narrative ECOG 1 Const alert, oriented x3 and no apparent distress General Appearance: cooperative and comfortable HEENT Face and Sinus: normal facial exam Mouth: oral and palatal mucosa normal, No mucositis and No thrush Eyes General Eye: normal appearance of both eyes Neck supple and no JVD Chest Chest: vascular access Resp clear to auscultation bilaterally Cardio regular rate and regular rhythm Jugular Venous Distention: Negative for JVD GI soft to palpation, non-tender and non-distended; Negative for hepatosplenomegaly Back/Spine no thoracic nor lumbar tenderness Extremity General Extremity: Negative for clubbing, cyanosis or edema Skin Skin Narrative: Right leg dressings uninterrupted Rashes: no rashes Neuro oriented x3 and CN's II-XII intact bilaterally Speech: speech normal Gait (Neuro): assistive device used orthotic device Psych mental status grossly normal Coding Level of Care Code Off vis,est,level 4 Exam Problem Focused Diagnoses Breast cancer C50.919 Assessment and Plan Assessment and Plan (1) Breast cancer: Status: Chronic Plan 42-year-old premenopausal female with clinical stage IIB (T2,N1, M0) invasive ductal carcinoma of the left breast, nuclear grade 2-3,ER positive (over 95% moderate), MO positive (over 95% strong) HER2/edgardo overexpressed 3+, Ki-67 +40%. No first-degree relatives with breast cancer, but has second-degree maternal side 2 cousins with history of breast cancer. Genetic testing ([employer]) showed no known deleterious mutation. PET/CT for initial staging showed no evidence for distant metastatic disease * Started neoadjuvant systemic therapy with TCHP February 28, 2022. Received total 4 cycles by April 2022 and then treatment was stopped due to excessive toxicity mainly GI, malnutrition and failing performance status. During this illness her depression decompensated at least partly because she stopped her treatment. She ended up in a rehab unit and needed a PEG tube for nutritional support. * She then was placed on hormonal therapy with tamoxifen while in the rehab unit and awaiting definitive surgery. June 27, 2022 she underwent left mastectomy with full axillary dissection and was found to be in complete pathologic remission although only the 6 lymph nodes were found in the dissected tissue. July 2022 underwent further left axillary lymph node dissection and an additional 4 lymph nodes were found negative for metastatic cancer. Lung nodules: Developed rather abrupt dyspnea and orthopnea within 24 hours of cycle 2 2021. ER evaluation did not suggest cardiac failure, CTA showed no evidence of PE but there were multiple bilateral nodules concerning for metastatic disease. Nodules were too small to biopsy by CT guidance and resolved spontaneously without a specific diagnosis being made a week later. A follow-up CT of the chest November 2022 showed no pulmonary nodules. Chronic comorbid condition: Muscle dystrophy, depression controlled on medical treatment. Plan: 1-continue with hormonal treatment for at least 10 years. She was started on tamoxifen , will revisit hormonal therapy with aromatase inhibitor likely at the5-year lori. 2-bone density July 2022 showed osteoporosis. Continue vitamin D and calcium supplement, tamoxifen is beneficial for bone density and after dental clearance she was started on Zometa. Bone density September 2023 showed improvement in some measures and decline in others. Continue treatment. Patient was seen , impression and plan discussed. Theodore Perez MD Web Marketing Analyst, [facility] Divisions of Medical Oncology & Hematology Department of Internal Medicine [place] [id number] This note was generated using a voice recognition system software. Although itwas reviewed by the author prior to finalization, it may still contain incorrectwords, spelling, and punctuation that were not noted when reviewing prior to saving. If a clinically significant typo or inaccurately typed phrase is noted, please notify the author. Clinical Quality Measures Falls Risk Screening/Assistive Devices Have you fallen in the past year?: No 10/27/24 1138 <Electronically signed by Theodore sotelo MD> Date _ Theodore Perez MD Cosigner Signature: Date (if applicable) CC: ~ [facility] Work Phone: 1(677) 973-296502-24-2025 Evaluation note* Diagnosis Onset Date Resolution Status Admit Date Breast cancer chronic July 212024 3:06pm [facility] Work Phone: 1(513) 971-827102-24-2025 Evaluation note* Diagnosis Onset Date Resolution Status Admit Date Breast cancer chronic July 212024 3:06pm Breast cancer chronic October 27, 2 025 10:17am [facility] Work Phone: 1(643) 723-189303-23-[address] Osorio [facility] August 17, 2022 1:51pm Note Date/Time August 17, 2022 1:4 8pm [facility] Medical Records Department [address] [place] [address] Instructions for Home/Discharge Instructions 08/17/22 1346 MR#: [id number] Acct: [id number] Name: BERE ESPOSITO Rep #:[id number] : 1980 41 From: Samantha Osorio MD PCP: Dr. Jam Verde MD Status:REG [facility] Discharge Instructions Diet Discharge Diet: No restrictions Activity Discharge Activity: May Not Drive (for 2-3 days or while taking narcotic pain meds.) May shower in (days): 1 Lifting Restrictions: 10 pounds for 1 week. Dressing / Incision Call your doctor if your incision/area has: Continuous Slow Oozing, Sudden Increased Bleeding, Increased Pain/ Swelling and Increased Redness Call your doctor if you observe: Fever of 101 or Higher Suture Line Care: Avoid Pulling/Pushing and Avoid Pinching/Bending Remove Dressing in: 1 day Additional Dressing/Incision Instructions:: Remove pressure dressing in 1 to 2 days. Dermabond (glue) was used at the axillary incision this may start to peel off in about 5 days. Would continue pressure dressing to this part of the incision as tolerated. If the tape is causing issue with the incision try an Cameron wrap without tape and ABD pad. As I do not want skin to be irritated prior to radiation. Follow Up Care Please Follow Up With: Samantha Osorio MD When: Please call [phone] for an appointment to be seen in 1-2 week. Test Results: Test results from this visit will be discussed in further detail at your follow- up appointment, if applicable. Discharge Plan Admission Attending Provider: Samantha Osorio Primary Care Provider: Jam Verde Discharge Orders/Prescriptions Prescriptions: New oxycodone-acetaminophen 5-325 mg tablet 1 tab PO Q6H PRN (Reason: pain) 3 Days Qty: 5 0RF Continued ascorbic acid (vitamin C) 500 mg tablet 500 mg PO BIDCM pantoprazole 40 mg Tablet,Delayed Release (Dr/Ec) 40 mg PO BID Qty: 60 0RF Mag 64 64 mg Tablet,Delayed Release (Dr/Ec) 128 mg PO TID Qty: 180 0RF tramadol 50 mg Tablet 50 - 100 mg PO Q6H PRN PRN (Reason: PAIN 4-10) Qty: 28 0RF spironolactone 25 mg tablet 25 mg PO BID Qty: 60 0RF calcitriol 0.5 mcg capsule 0.5 mcg PO DAILY Qty: 30 0RF zinc sulfate 50 mg zinc (220 mg) capsule 220 mg PO DAILY Qty: 30 0RF vitamin E (dl, acetate) 180 mg (400 unit) capsule 400 units PO DAILYCM Qty: 30 0RF potassium chloride 20 mEq/15 mL liquid 30 meq feeding tube BIDCM Rx Instructions: Take 20 CC PO BID or give via PEG tamoxifen 20 mg tablet 20 mg PO QHS Other Ambulatory Orders: ,Urine (Routine) Timeframe: [id number] Facility: [facility] - Location: Laboratory Ordered By: Dr. Miko Cohen Referrals / Follow Up: Jam Verde MD [Primary Care Provider] - Disposition Disposition (needs filled in before D/C Order can be placed): Home, Self Care 08/17/22 1351<Electronically signed by Samantha Osorio MD>Samantha Osorio MD CC: Dr. Jam Verde MD ~ Signed [facility] Work Phone: [phone]) 427-738403-23-2023 History and physical note Author Dr. Osorio [facility] August 17, 2022 12:03pm Note Date/Time August 17, 2022 12: 03pm [facility] Medical Records Department [address] [place] [address] H&P Exam - Surgical 08/17/22 1159 MR#: [id number] Acct: [id number] Name: BERE ESPOSITO Rep #:[id number] : 1980 41 From: Samantha Osorio MD PCP: Dr. Jam Verde MD Status:[facility] Location: [place] [address] HPI - General General Date of Admission: 08/17/22 HPI Narrative BERE ESPOSITO, is a 41 F who presents for excisional left axillary node ultrasound-guided needle localization. Patient is status post left mastectomy Lymph node dissection. 6/6 nodes were negative for carcinoma. Patient is not acandidate for adjuvant and also had a complete response as far as the breast lesion was concerned. Patient did previously have a clip node prior to planned radiation CT was suspicious whether we had the actual clip note out. Did get anultrasound which showed there is still a lymph node with a clip in it near the seroma. [facility] Medical History (Updated 08/16/22 @ 14:53 by Bere Camp) Alcohol use Anemia Anemia Anxiety Arthritis Arthrogryposis Blackout Braces as ambulation aid Breast cancer, left breast Cardiology follow-up encounter CINV (chemotherapy-induced nausea and vomiting) CPAP (continuous positive airway pressure) dependence Dehydration Depression Diarrhea Diarrhea due to drug Elevated C-reactive protein (CRP) (12/26/21) Encounter for chemotherapy management Encounter for education Encounter for monitoring cardiotoxic drug therapy Gastric reflux Heartburn History of diverticulitis History of echocardiogram History of edema History of irregular heartbeat History of renal disease Hypokalemia Hypomagnesemia Leg sore Localized peritonitis Lung nodule, multiple Mucositis (ulcerative) due to antineoplastic therapy Mucositis (ulcerative) due to antineoplastic therapy Muscular dystrophy Muscular dystrophy Nausea Non-smoker Open wound Oral candidiasis Osteoporosis PEG (percutaneous endoscopic gastrostomy) adjustment/replacement/removal Phlegmonous peritonitis Port-A-Cath in place Sepsis without acute organ dysfunction Thrombocytosis Thrombocytosis Uses wheelchair Vitamin D deficiency Wears glasses Home Medications ascorbic acid (vitamin C) 500 mg tablet 500 mg PO BIDCM supplement 06/30/22 [History Last Taken 06/30/22 09:00] calcitriol 0.5 mcg capsule 0.5 mcg PO DAILY #30 caps 07/12/22 [Rx Last Taken Unknown] magnesium chloride 64 mg (magnesium chloride) tablet,delayed release (Mag 64) 128 mg PO TID #180 tabs 07/12/22 [Rx Last Taken Unknown] pantoprazole 40 mg tablet,delayed release 40 mg PO BID #60 tabs 07/12/22 [Rx Last Taken Unknown] spironolactone 25 mg tablet 25 mg PO BID Check with primary doctor #60 tabs 07/12/22 [Rx Last Taken Unknown] tramadol 50 mg tablet 50 - 100 mg PO Q6H PRN PRN PAIN 4-10 #28 tabs 07/12/22 [Rx Last Taken Unknown] vitamin E (dl, acetate) 180 mg (400 unit) capsule 400 units PO DAILYCM supplement #30 caps 07/12/22 [Rx Last Taken 06/30/22 09:00] zinc sulfate 50 mg zinc (220 mg) capsule 220 mg PO DAILY supplement #30 caps 07/12/22 [Rx Last Taken 06/30/22 09:00] potassium chloride 20 mEq/15 mL oral liquid 30 meq feeding tube BIDCM 08/16/22 [History Last Taken Unknown] tamoxifen 20 mg tablet 20 mg PO QHS 08/16/22 [History Last Taken Unknown] Allergy/AdvReac Type Severity Reaction Status Date / Time kiwi Allergy Mild Anaphylaxis Verified 08/17/22 10:15 Penicillins Allergy Mild Anaphylaxis Verified 08/17/22 10:15 Gadolinium-MRI Contrast AdvReac Shortness Verified 08/17/22 10:15 Medium of breath [contrast dye] Family History Mother Diabetes Hypertension High cholesterol Thyroid disorder Uncle Cancer non-hodgkins lymphoma Grandfather Heart disease Grandmother Heart disease Brother Hypertension Unknown Breast cancer mother had 2 cousins with aggressive breast cancer Unknown Thyroid cancer maternal cousin Other Arthritis Depression Surgical History H/O release of tendon History of colonoscopy History of lymph node biopsy History of lymph node dissection of axilla History of spinal fusion S/P left mastectomy Social History household members: family current occupational status: employed current occupation: [employer] work [employer] Smoking Status: Never smoker alcohol intake: current alcohol intake frequency: holidays/special occasions only details: occasional substance use type: does not use Vital Signs Vital Signs Vital Signs: 08/17/22 10:15 08/17/22 10:15 Temperature 98.9 F Temperature Source Temporal Pulse Rate 89 Respiratory Rate 12 Respiratory Pattern Normal Blood Pressure 104/60 Blood Pressure Mean 74 Blood Pressure Source Monitor Blood Pressure Position Semi-Fowlers Blood Pressure Location Right Arm Pulse Ox 98 Oxygen Delivery Method Room Air Weight Weight: 88 lb Body Mass Index (BMI) 22.8 Physical Exam Narrative Left mastectomy incision well-healed. Const oriented x3 and no apparent distress Resp normal respiratory effort Cardio regular rate Results Lab / Micro Data Labs: Laboratory Results - last 24 hr 08/17/22 10:08: Urine Test Negative Assessment & Plan Assessment/Plan (1) S/P left mastectomy: (2) Breast cancer, left breast: (3) History of lymph node dissection of axilla: PLAN: Plan Did discuss with patient the ultrasound did show a lymph node adjacent to the seroma that did appear to have a clip in it. We will plan for excisional left axillary lymph node with ultrasound needle localization. Risk include not limited to bleeding, infection, need for further surgery. Patient is agreeable plan. Patient will still plan to have radiation treatment once this area is healed. We will send specimen to mammography for x-ray to prove the clip is outas well. Samantha Osorio M.D. Pager: [phone] [facility] [address] [place] [address], Outpatient Pavilion, [address] [place] [address] Office: [phone] 08/17/22 1205 <Electronically signed by Samantha Osorio MD> Cosigner Signature (if applicable): CC: Dr. Jam Verde MD; Dr. Samantha Osorio MD~ Signed [facility] Work Phone: 1(539) 742-987703-23-2023 Procedure [facility] 06-30-[address] Osorio [facility] June 30, 2022 12:14pm Note Date/Time June 30, 2022 8 :55am [facility] Medical Records Department [address] [place] [address] Progress Note - Surgery 06/30/22854 MR#: [id number] Acct: [id number] Name: BERE ESPOSITO Rep #:[id number] : 1980 41 From: Samantha Osorio MD PCP: Dr. Jam Verde MD Status:ADM IN Location: [place] [address] Subjective Subjective Patient is doing well. Denies any pain that is not controlled with Tylenol. Patient is tolerating diet and tolerating her tube feeds. JPs are serous Objective Data Objective Data Vital Signs: Vital Signs Temp Pulse Resp BP Pulse Ox O2 Del Method O2 Flow Rate 97.5 F L 92 18 115/75 99 Room Air 6 06/30/22 02:51 06/30/22 02:51 06/30/22 02:51 06/30/22 02:51 06/30/22 02:51 06/30/22 02:51 06/27/22 17:06 Oxygen Flow Rate (L/min) 6 Oxygen Delivery Method Room Air Weight: 91 lb 12.808 oz Body Mass Index (BMI) 23.8 Intake & Output: Intake and Output for Last 24 Hours 06/28/22 06/29/22 06/30/22 23:59 23:59 23:59 Intake Total 4098.00 / 4098.00 2520.67 / 2520.67 560 / 560 Output Total 1191 / 1191 1960 / 1960 800 / 800 Balance 2907.00 / 2907.00 560.67 / 560.67 -240 / -240 Medical Nutrition Assessment Dietitian: Malnutrition Criteria Met Start: 06/28/22 10:45 Freq: Status: Active Protocol: Document 06/28/22 10:45 AG (Rec: 06/28/22 10:45 AG [id number]) Nutrition Malnutrition Evidence of Malnutrition Exists Yes Malnutrition (severe): Chronic Evidenced By Suboptimal Energy Intake ( Severe),Weight Loss (Severe) Clinical Problem Chronic Disease or Condition Related Malnutrition Etiology chronic, severe malnutrition related to inadequate oral intake w/ increased energy needs d/t cancer, wounds Signs/Symptoms as evidenced by estimated PO intake meeting <75% of estimated energy needs over past 3-4 months; unintentional wt loss of 7.8kg/16% x 5 months Status Active Problem Recommendation Dietitian Recommendations/Changes continue regular diet as tolerated; will order Adrian BID for wound healing. As discussed w/ pt, will continue continuous enteral nutrition support via PEG- Pivot 1.5 at 40mL/hour w/ 60mL H2O flush every 4 hours to provide 1440 calories, 90 g protein, and 1080mL fluid/day. Drinking fluids PO and getting IV fluids so will refrain from adjusting flushes at this time . Will monitor wt, labs as indicated. Will consider transition to previously ordered enteral nutrition ( Pivot 1.5 135mL 4x/day PRN) as PO intake/appetite improves. 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 Incision healing well with Steri-Strips, JPs serous x2?1 BERTO was removed at bedside. Patient tolerated well. PT OT ordered. Patient plan to go back to rehab once pre-CERT is completed Continue pain control. Heparin SQ Samantha Robotham, M.D. Pager: [phone] [facility] [address] [place] [address], Outpatient Pavilion, [address] [place] [address] Office: [phone] 06/30/22 1214 <Electronically signed by Samantha Osorio MD> Cosigner Signature (if applicable): CC: ~ Signed [facility] Work Phone: 1(469) 777-262802-03-[address] Osorio [facility] June 30, 2022 10:43am Note Date/Time June 30, 2022 1 0:43am [facility] Medical Records Department [address] [place] [address] Discharge Summary 06/30/22 1038 MR#: [id number] Acct: [id number] Name: BERE ESPOSITO Rep #:[id number] : 1980 41 From: Samantha Osorio MD PCP: Dr. Jam Verde MD Status:ADM IN [id number] Date of Admission: 06/27/22 Date of Discharge: 06/30/22 Primary Care Physician: Dr. 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 Incision healing well with Steri-Strips, JPs serosanguineous x2 PT OT ordered. Patient plan to go back to rehab once pre-CERT is completed pre- CERT. Continue pain control. Heparin SQ Samantha Osorio M.D. Pager: [phone] [facility] [address] [place] [address], Outpatient Pavilion, [address] [place] [address] Office: [phone] Medications at Discharge Home Medications lidocaine-prilocaine 2.5 %-2.5 % topical cream 1 applic topical ONCE PRN port access 30 days #30 grams 02/23/22 ondansetron 8 mg disintegrating tablet 8 mg PO Q8H PRN nausea and vomiting #30 tabs 04/18/22 acetaminophen 650 mg/20.3 mL oral solution 1,000 mg (31.2308 mL) PO Q8H PRN Pain1-10 Or Fever #0 mL 05/28/22 loperamide 2 mg capsule 4 mg PO Q4H PRN PRN Diarrhea #30 caps 05/28/22 sodium chloride 0.9 % (flush) (Normal Saline Flush 0.9 % injection syringe) 10 - 40 ml IV UD PRN IV flush 05/28/22 ascorbic acid (vitamin C) 500 mg tablet 500 mg PO BIDCM #1 TAB 06/27/22 cholecalciferol (vitamin D3) 25 mcg (1,000 unit) tablet 50 mcg PO DAILY #1 TAB 06/27/22 cholestyramine (with sugar) 4 gram powder for susp in a packet 4 g PO TIDAC #1 ea 06/27/22 heparin, porcine (PF) 10 unit/mL intravenous syringe 50 units (5 mL) IV UD #0 mL06/27/22 magnesium chloride 64 mg (magnesium chloride) tablet,delayed release (Mag 64) 128 mg PO BID #1 TAB 06/27/22 mirtazapine 15 mg tablet 22.5 mg PO QHS #1 TAB 06/27/22 pantoprazole 20 mg tablet,delayed release 40 mg PO BID #1 TAB 06/27/22 potassium chloride 20 mEq/15 mL oral liquid 40 meq (30 mL) PO BIDCM #1 mL 06/27/22 sodium chloride 0.9 % (flush) (BD PosiFlush Normal Saline 0.9 % injection syringe) 10 - 40 ml IV UD PRN Saline Flush #0 mL 06/27/22 spironolactone 25 mg tablet 25 mg PO BID #1 TAB 06/27/22 vitamin E (dl, acetate) 180 mg (400 unit) capsule 400 units PO DAILYCM #1 cap 06/27/22 zinc sulfate 50 mg zinc (220 mg) capsule 220 mg PO DAILY #1 cap 06/27/22 nut.tx.comp. immune systm,reg 0.09 gram-1.5 kcal/mL liquid for tube feed (Pivot 1.5 Herbie) 60 ml G-tube CLARIFY #1 mL 06/30/22 Hospital Course Operations - (left mastectomy and left ALND for left breast cancer) Procedures None Summary of Care Provided Minutes Spent on Discharge: 15 Hospital Course: 41-year-old underwent left mastectomy and left axillary lymph node dissection due to left invasive ductal carcinoma ER/MO positive, HER2 positive. Patient previously had 2 cycles of neoadjuvant chemotherapy but due to complications this was stopped. Postoperatively patient did well was continued on her tube feeds as she had severe malnutrition in April and has not transitioned back to only p.o. diet yet. However patient was taking p.o. as well. Patient had minimal pain. One of the JPs were able to be removed on postop day 2 the last BERTO will stay in until less than 25 to 30 cc for couple days. Medical Records Data Medical Nutrition Assessment Dietitian: Malnutrition Criteria Met Start: 06/28/22 10:45 Freq: Status: Active Protocol: Document 06/28/22 10:45 AG (Rec: 06/28/22 10:45 AG [id number]) Nutrition Malnutrition Evidence of Malnutrition Exists Yes Malnutrition (severe): Chronic Evidenced By Suboptimal Energy Intake ( Severe),Weight Loss (Severe) Clinical Problem Chronic Disease or Condition Related Malnutrition Etiology chronic, severe malnutrition related to inadequate oral intake w/ increased energy needs d/t cancer, wounds Signs/Symptoms as evidenced by estimated PO intake meeting <75% of estimated energy needs over past 3-4 months; unintentional wt loss of 7.8kg/16% x 5 months Status Active Problem Recommendation Dietitian Recommendations/Changes continue regular diet as tolerated; will order Adrian BID for wound healing. As discussed w/ pt, will continue continuous enteral nutrition support via PEG- Pivot 1.5 at 40mL/hour w/ 60mL H2O flush every 4 hours to provide 1440 calories, 90 g protein, and 1080mL fluid/day. Drinking fluids PO and getting IV fluids so will refrain from adjusting flushes at this time . Will monitor wt, labs as indicated. Will consider transition to previously ordered enteral nutrition ( Pivot 1.5 135mL 4x/day PRN) as PO intake/appetite improves. Weight / BMI Weight Weight: 91 lb 12.808 oz Body Mass Index (BMI) 23.8 ABG / Lab / Microbiology Data Result Diagrams: 06/28/22 05:20 06/28/22 05:20 D/C Instructions Discharge Diet: No restrictions May shower in (days): 1 Call your doctor if your incision/area has: Continuous Slow Oozing, Sudden Increased Bleeding, Increased Pain/ Swelling and Increased Redness Call your doctor if you observe: Fever of 101 or Higher Suture Line Care: Avoid Pulling/Pushing Additional Dressing/Incision Instructions: ok to remove CAMERON Wrap for redressing but replace CAMERON wrap after. Okay to use an ABD pad or small towel placed over the incision to help create compression as well as comfort with the Cameron wrap. Empty BERTO when half full and as needed. Please Follow Up With: Samantha Osorio MD When: We will plan to stop by rehab the week of the and see how the drain is doing. Any questions please call the surgery office [phone] Meaningful Use Info Meaningful Use Diagnoses (Choose all that apply): None applicable Discharge Plan Admission Admit Date/Time: 06/27/22 20:32 Attending Provider: Samantha Osorio Primary Care Provider: Jam Verde Discharge Orders/Prescriptions Prescriptions: Continued lidocaine-prilocaine 2.5-2.5 % cream 1 applic topical ONCE PRN (Reason: port access) 30 Days Qty: 30 2RF ondansetron 8 mg tablet,disintegrating 8 mg PO Q8H PRN (Reason: nausea and vomiting) Qty: 30 2RF loperamide 2 mg Capsule 4 mg PO Q4H PRN PRN (Reason: Diarrhea) Qty: 30 0RF acetaminophen 650 mg/20.3 mL Solution 1,000 mg PO Q8H PRN (Reason: Pain 1-10 Or Fever) Qty: 0 0RF sodium chloride 0.9 % (flush) [Normal Saline Flush] Syringe 10 - 40 ml IV UD PRN (Reason: IV flush) potassium chloride 20 mEq/15 mL Liquid 40 meq PO BIDCM Qty: 1 0RF pantoprazole 20 mg Tablet,Delayed Release (Dr/Ec) 40 mg PO BID Qty: 1 0RF cholecalciferol (vitamin D3) 25 mcg (1,000 unit) Tablet 50 mcg PO DAILY Qty: 1 0RF ascorbic acid (vitamin C) 500 mg Tablet 500 mg PO BIDCM Qty: 1 0RF mirtazapine 15 mg Tablet 22.5 mg PO QHS Qty: 1 0RF sodium chloride 0.9 % (flush) [BD PosiFlush Normal Saline 0.9] Syringe 10 - 40 ml IV UD PRN (Reason: Saline Flush) Qty: 0 0RF cholestyramine (with sugar) 4 gram Powder In Packet 4 g PO TIDAC Qty: 1 0RF heparin, porcine (PF) 10 unit/mL Syringe 50 units IV UD Qty: 0 0RF Mag 64 64 mg Tablet,Delayed Release (Dr/Ec) 128 mg PO BID Qty: 1 0RF spironolactone 25 mg Tablet 25 mg PO BID Qty: 1 0RF zinc sulfate 50 mg zinc (220 mg) Capsule 220 mg PO DAILY Qty: 1 0RF vitamin E (dl, acetate) 180 mg (400 unit) Capsule 400 units PO DAILYCM Qty: 1 0RF Pivot 1.5 Herbie 0.09 gram- 1.5 kcal/mL Liquid 60 ml G-tube CLARIFY Qty: 1 0RF Rx Instructions: 40 cc/hr with 60 cc water flush q6H Referrals / Follow Up: Jam Verde MD [Primary Care Provider] - Disposition Disposition (needs filled in before D/C Order can be placed): Inpatient Rehab Unit/Facility 06/30/22 1043 <Electronically signed by Samantha Osorio MD> Cosigner Signature (if applicable): CC: Dr. Jam Verde MD; Dr. Anabela Disla DO; Dr. Samantha Osorio MD~ Signed [facility] Work Phone: 1(895) 212-501102-03-[address] Osorio [facility] June 30, 2022 10:38am Note Date/Time June 30, 2022 1 0:36am [facility] Medical Records Department [address] [place] [address] Instructions for Home/Discharge Instructions 06/30/22 1032 MR#: [id number] Acct: [id number] Name: BERE ESPOSITO Rep #:[id number] : 1980 41 From: Samantha Osorio MD PCP: Dr. Jam Verde MD Status:ADM IN Discharge Instructions Procedure Breast Surgery Diet Discharge Diet: No restrictions Activity Discharge Activity: May Not Drive (while taking narcotic pain meds.) May shower in (days): 1 Lifting Restrictions: 10 pounds for 2 weeks on the left Dressing / Incision Call your doctor if your incision/area has: Continuous Slow Oozing, Sudden Increased Bleeding, Increased Pain/ Swelling and Increased Redness Call your doctor if you observe: Fever of 101 or Higher Suture Line Care: Avoid Pulling/Pushing Change Dressing in: 2 days Additional Dressing/Incision Instructions:: ok to remove CAMERON Wrap for redressingbut replace CAMERON wrap after. Okay to use an ABD pad or small towel placed over the incision to help create compression as well as comfort with the Cameron wrap. Empty BERTO when half full and as needed. Follow Up Care Please Follow Up With: Samantha Osorio MD When: We will plan to stop by rehab the week of the and see how the drain is doing. Any questions please call the surgery office [phone] Test Results: Test results from this visit will be discussed in further detail at your follow- up appointment, if applicable. Discharge Plan Admission Admit Date/Time: 06/27/22 20:32 Attending Provider: Samantha Osorio Primary Care Provider: Jam Verde Discharge Orders/Prescriptions Prescriptions: Continued lidocaine-prilocaine 2.5-2.5 % cream 1 applic topical ONCE PRN (Reason: port access) 30 Days Qty: 30 2RF ondansetron 8 mg tablet,disintegrating 8 mg PO Q8H PRN (Reason: nausea and vomiting) Qty: 30 2RF loperamide 2 mg Capsule 4 mg PO Q4H PRN PRN (Reason: Diarrhea) Qty: 30 0RF acetaminophen 650 mg/20.3 mL Solution 1,000 mg PO Q8H PRN (Reason: Pain 1-10 Or Fever) Qty: 0 0RF sodium chloride 0.9 % (flush) [Normal Saline Flush] Syringe 10 - 40 ml IV UD PRN (Reason: IV flush) potassium chloride 20 mEq/15 mL Liquid 40 meq PO BIDCM Qty: 1 0RF pantoprazole 20 mg Tablet,Delayed Release (Dr/Ec) 40 mg PO BID Qty: 1 0RF cholecalciferol (vitamin D3) 25 mcg (1,000 unit) Tablet 50 mcg PO DAILY Qty: 1 0RF ascorbic acid (vitamin C) 500 mg Tablet 500 mg PO BIDCM Qty: 1 0RF mirtazapine 15 mg Tablet 22.5 mg PO QHS Qty: 1 0RF sodium chloride 0.9 % (flush) [BD PosiFlush Normal Saline 0.9] Syringe 10 - 40 ml IV UD PRN (Reason: Saline Flush) Qty: 0 0RF cholestyramine (with sugar) 4 gram Powder In Packet 4 g PO TIDAC Qty: 1 0RF heparin, porcine (PF) 10 unit/mL Syringe 50 units IV UD Qty: 0 0RF Mag 64 64 mg Tablet,Delayed Release (Dr/Ec) 128 mg PO BID Qty: 1 0RF spironolactone 25 mg Tablet 25 mg PO BID Qty: 1 0RF zinc sulfate 50 mg zinc (220 mg) Capsule 220 mg PO DAILY Qty: 1 0RF vitamin E (dl, acetate) 180 mg (400 unit) Capsule 400 units PO DAILYCM Qty: 1 0RF Pivot 1.5 Herbie 0.09 gram- 1.5 kcal/mL Liquid 60 ml G-tube CLARIFY Qty: 1 0RF Rx Instructions: 40 cc/hr with 60 cc water flush q6H Referrals / Follow Up: Jam Verde MD [Primary Care Provider] - Disposition Disposition (needs filled in before D/C Order can be placed): Inpatient Rehab Unit/Facility 06/30/22 1038<Electronically signed by Samantha Osorio MD>Samantha Osorio MD CC: Dr. Jam Verde MD; Dr. Anabela Disla DO ~ Signed [facility] Work Phone: 1(739) 710-637902-02-[address] Osorio [facility] June 29, 2022 1:34pm Note Date/Time June 29, 2022 1 2:14pm [facility] Medical Records Department [address] [place] [address] Progress Note - Surgery 06/29/22 1214 MR#: [id number] Acct: [id number] Name: BERE ESPOSITO Rep #:[id number] : 1980 41 From: Samantha Osorio MD PCP: Dr. Jam Verde MD Status:ADM IN Location: [place] [address] Objective Data Objective Data Vital Signs: Vital Signs Temp Pulse Resp BP Pulse Ox O2 Del Method O2 Flow Rate 98.1 F 101 H 18 109/66 100 Room Air 6 06/29/22 08:56 06/29/22 08:56 06/29/22 08:56 06/29/22 08:56 06/29/22 08:56 06/29/22 08:56 06/27/22 17:06 Oxygen Flow Rate (L/min) 6 Oxygen Delivery Method Room Air Weight: 91 lb 12.808 oz Body Mass Index (BMI) 23.8 Intake & Output: Intake and Output for Last 24 Hours 06/27/22 06/28/22 06/29/22 23:59 23:59 23:59 Intake Total 1110 / 1110 4098.00 / 4098.00 820 / 820 Output Total 350 / 350 1191 / 1191 1420 / 1420 Balance 760 / 760 2907.00 / 2907.00 -600 / -600 Medical Nutrition Assessment Dietitian: Malnutrition Criteria Met Start: 06/28/22 10:45 Freq: Status: Active Protocol: Document 06/28/22 10:45 AG (Rec: 06/28/22 10:45 AG [id number]) Nutrition Malnutrition Evidence of Malnutrition Exists Yes Malnutrition (severe): Chronic Evidenced By Suboptimal Energy Intake ( Severe),Weight Loss (Severe) Clinical Problem Chronic Disease or Condition Related Malnutrition Etiology chronic, severe malnutrition related to inadequate oral intake w/ increased energy needs d/t cancer, wounds Signs/Symptoms as evidenced by estimated PO intake meeting <75% of estimated energy needs over past 3-4 months; unintentional wt loss of 7.8kg/16% x 5 months Status Active Problem Recommendation Dietitian Recommendations/Changes continue regular diet as tolerated; will order Adrian BID for wound healing. As discussed w/ pt, will continue continuous enteral nutrition support via PEG- Pivot 1.5 at 40mL/hour w/ 60mL H2O flush every 4 hours to provide 1440 calories, 90 g protein, and 1080mL fluid/day. Drinking fluids PO and getting IV fluids so will refrain from adjusting flushes at this time . Will monitor wt, labs as indicated. Will consider transition to previously ordered enteral nutrition ( Pivot 1.5 135mL 4x/day PRN) as PO intake/appetite improves. 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 Incision healing well with Steri-Strips, JPs serosanguineous x2 PT OT ordered. Patient plan to go back to rehab once pre-CERT is completed pre- CERT. Continue pain control. Heparin SQ Samantha Osorio M.D. Pager: [phone] [facility] [address] [place] [address], [address] [place] [address] Office: [phone] 06/29/22 7142 <Electronically signed by Samantha Osorio MD> Cosigner Signature (if applicable): CC: ~ Signed [facility] Work Phone: 1(536) 353-884802-01-[address] Osorio [facility] June 28, 2022 9:01pm Note Date/Time June 28, 2022 1 :02pm [facility] Medical Records Department [address] [place] [address] Progress Note - Surgery 06/28/22 1258 MR#: [id number] Acct: [id number] Name: BERE ESPOSITO Rep #:[id number] : 1980 41 From: Samantha Osorio MD PCP: Dr. Jam Verde MD Status:ADM IN Location: MS3 [id number] Subjective Subjective Pt states she has minimal pain in left chest- mild in axilla. saqib PO and TF Objective Data Objective Data Vital Signs: Vital Signs Temp Pulse Resp BP Pulse Ox O2 Del Method O2 Flow Rate 98.3 F 95 18 98/60 95 Room Air 6 06/28/22 09:14 06/28/22 09:14 06/28/22 09:14 06/28/22 09:14 06/28/22 09:14 06/28/22 09:30 06/27/22 17:06 Oxygen Flow Rate (L/min) 6 Oxygen Delivery Method Room Air Weight: 91 lb 12.808 oz Body Mass Index (BMI) 23.8 Intake & Output: Intake and Output for Last 24 Hours 06/26/22 06/27/22 06/28/22 23:59 23:59 23:59 Intake Total 1110 / 1110 1630.67 / 1630.67 Output Total 350 / 350 1154 / 1154 Balance 760 / 760 476.67 / 476.67 Medical Nutrition Assessment Dietitian: Malnutrition Criteria Met Start: 06/28/22 10:45 Freq: Status: Active Protocol: Document 06/28/22 10:45 AG (Rec: 06/28/22 10:45 AG [id number]) Nutrition Malnutrition Evidence of Malnutrition Exists Yes Malnutrition (severe): Chronic Evidenced By Suboptimal Energy Intake ( Severe),Weight Loss (Severe) Clinical Problem Chronic Disease or Condition Related Malnutrition Etiology chronic, severe malnutrition related to inadequate oral intake w/ increased energy needs d/t cancer, wounds Signs/Symptoms as evidenced by estimated PO intake meeting <75% of estimated energy needs over past 3-4 months; unintentional wt loss of 7.8kg/16% x 5 months Status Active Problem Recommendation Dietitian Recommendations/Changes continue regular diet as tolerated; will order Adrian BID for wound healing. As discussed w/ pt, will continue continuous enteral nutrition support via PEG- Pivot 1.5 at 40mL/hour w/ 60mL H2O flush every 4 hours to provide 1440 calories, 90 g protein, and 1080mL fluid/day. Drinking fluids PO and getting IV fluids so will refrain from adjusting flushes at this time . Will monitor wt, labs as indicated. Will consider transition to previously ordered enteral nutrition ( Pivot 1.5 135mL 4x/day PRN) as PO intake/appetite improves. Lab / Micro Data Result Diagrams: 06/28/22 05:20 06/28/22 05:20 Labs: Laboratory Results - last 24 hr 06/28/22 05:20: WBC 13.0 H, RBC 2.64 L, Hgb 8.2 L, Hct 25.1 L, MCV 95.1, MCH 31.1, MCHC 32.7, RDW Std Deviation 54.6 H, RDW Coeff of Seema 15.7 H, Plt Count 385, MPV 8.6, Immature Gran % (Auto) 0.400, Neut % (Auto) 79.7 H, Lymph % (Auto)9.5 L, [place] % (Auto) 10.1 H, Eos % (Auto) 0.0, Baso % (Auto) 0.3, Absolute Neuts(auto) 10.4 H, Absolute Lymphs (auto) 1.24, Nucleated RBC % 0 06/28/22 05:20: Sodium 139, Potassium 4.1, Chloride 104, Carbon Dioxide 29.0, Anion Gap 6, BUN 31 H, Creatinine 0.44 L, Estim Creat Clear Calc 108.37, Est GFR(MDRD) Af Amer 198, Est GFR (MDRD) Non-Af 163, BUN/Creatinine Ratio 69.7 H, Glucose 176 H, Calcium 8.3 L, Phosphorus 3.1, Magnesium 1.7 Physical Exam Narrative left mastectomy incision dressed c/d/i with steris w CAMERON wrap Const oriented x3 and no apparent distress Resp normal respiratory effort Cardio regular rate Assessment & Plan Assessment/Plan (1) S/P left mastectomy: (2) History of lymph node dissection of axilla: (3) Carcinoma of left breast metastatic to axillary lymph node: (4) PEG (percutaneous endoscopic gastrostomy) status: (5) Severe malnutrition: (6) Debility: PLAN: Plan Patient is tolerating her tube feeds as well some p.o. Incision healing well with Steri-Strips, JPs serosanguineous x2 PT OT ordered. Patient plan to go back to rehab but needs to stay in the hospital for 72 hours prior for pre-CERT. Hemoglobin 8.2 dilutional as patient did not have that much blood loss during surgery and she was probably never actually / prior to surgery that was probably due to dehydration. Samantha Osorio M.D. Pager: [phone] [facility] [address] [place] [address], [facility], [address] [place] [address] Office: [phone] 06/28/222100 <Electronically signed by Samantha Osorio MD> Cosigner Signature (if applicable): CC: ~ Signed [facility] Work Phone: 1(560) 826-260601-31-2023 Procedure [facility] 06-27-2022 History and physical note Author Dr. Osorio [facility] June 27, 2022 1:22pm Note Date/Time June 27, 2022 1 :22pm [facility] Medical Records Department [address] [place] [id number] H&P Exam - Surgical 06/27/22 1313 MR#: [id number] Acct: [id number] Name: BERE ESPOSITO Rep #:[id number] : 1980 41 From: Samantha Osorio MD PCP: Dr. Jam Verde MD Status:[facility] Location: [place] [address] HPI - General General Date of Admission: 06/27/22 HPI Narrative BERE ESPOSITO, is a 41 F who presents for left mastectomy and left axillary lymph node dissection. Due to left breast cancer metastatic to lymph node, ER/MO positive, HER2 positive status post neoadjuvant care chemotherapy 2 out of 4 cycles. Due to complications neoadjuvant chemotherapy was stopped after patienthad diverticular abscess and also found to have severe malnutrition in mid April. Patient subsequently had a Dobbhoff then PEG placed and has also improved her p.o. intake. Patient's previous leg wound from her brace has continued to heal well and almost completely healed over with the improved nutrition. Patient is also back on her antidepressant medications. [facility] Medical History (Updated 06/26/22 @ 17:[address] Anabela Disla, ) Alcohol use Anxiety Arthritis Arthrogryposis Braces as ambulation aid CINV (chemotherapy-induced nausea and vomiting) CPAP (continuous positive airway pressure) dependence Dehydration Depression Diarrhea Diarrhea due to drug Elevated C-reactive protein (CRP) (12/26/21) Encounter for chemotherapy management Encounter for education Heartburn History of diverticulitis History of echocardiogram History of edema History of irregular heartbeat Hypokalemia Hypomagnesemia Localized peritonitis Lung nodule, multiple Mucositis (ulcerative) due to antineoplastic therapy Mucositis (ulcerative) due to antineoplastic therapy Nausea Non-smoker Oral candidiasis Phlegmonous peritonitis Port-A-Cath in place Sepsis without acute organ dysfunction Sleep apnea Thrombocytosis Thrombocytosis Wears glasses Home Medications lidocaine-prilocaine 2.5 %-2.5 % topical cream 1 applic topical ONCE PRN port access 30 days #30 grams 02/23/22 [Rx Last Taken Unknown] ondansetron 8 mg disintegrating tablet 8 mg PO Q8H PRN nausea and vomiting #30 tabs 04/18/22 [Rx Last Taken Unknown] acetaminophen 650 mg/20.3 mL oral solution 1,000 mg (31.2308 mL) PO Q8H PRN Pain1-10 Or Fever #0 mL 05/28/22 [Rx Last Taken Unknown] loperamide 2 mg capsule 4 mg PO Q4H PRN PRN Diarrhea #30 caps 05/28/22 [Rx Last Taken Unknown] sodium chloride 0.9 % (flush) (Normal Saline Flush 0.9 % injection syringe) 10 - 40 ml IV UD PRN IV flush 05/28/22 [History Last Taken Unknown] ascorbic acid (vitamin C) 500 mg tablet 500 mg PO BIDCM #1 TAB 06/27/22 [Rx Last Taken Unknown] cholecalciferol (vitamin D3) 25 mcg (1,000 unit) tablet 50 mcg PO DAILY #1 TAB 06/27/22 [Rx Last Taken Unknown] cholestyramine (with sugar) 4 gram powder for susp in a packet 4 g PO TIDAC #1 ea 06/27/22 [Rx Last Taken Unknown] heparin, porcine (PF) 10 unit/mL intravenous syringe 50 units (5 mL) IV UD #0 mL06/27/22 [Rx Last Taken Unknown] magnesium chloride 64 mg (magnesium chloride) tablet,delayed release (Mag 64) 128 mg PO BID #1 TAB 06/27/22 [Rx Last Taken Unknown] mirtazapine 15 mg tablet 22.5 mg PO QHS #1 TAB 06/27/22 [Rx Last Taken Unknown] nut.tx.comp. immune systm,reg 0.09 gram-1.5 kcal/mL liquid for tube feed (Pivot 1.5 Herbie) 60 ml G-tube CLARIFY #1 mL 06/27/22 [Rx Last Taken Unknown] pantoprazole 20 mg tablet,delayed release 40 mg PO BID #1 TAB 06/27/22 [Rx Last Taken Unknown] potassium chloride 20 mEq/15 mL oral liquid 40 meq (30 mL) PO BIDCM #1 mL 06/27/22 [Rx Last Taken Unknown] sodium chloride 0.9 % (flush) (BD PosiFlush Normal Saline 0.9 % injection syringe) 10 - 40 ml IV UD PRN Saline Flush #0 mL 06/27/22 [Rx Last Taken Unknown] spironolactone 25 mg tablet 25 mg PO BID #1 TAB 06/27/22 [Rx Last Taken Unknown] vitamin E (dl, acetate) 180 mg (400 unit) capsule 400 units PO DAILYCM #1 cap 06/27/22 [Rx Last Taken Unknown] zinc sulfate 50 mg zinc (220 mg) capsule 220 mg PO DAILY #1 cap 06/27/22 [Rx Last Taken Unknown] Allergy/AdvReac Type Severity Reaction Status Date / Time kiwi Allergy Mild Anaphylaxis Verified 06/27/22 12:01 Penicillins Allergy Mild Anaphylaxis Verified 06/27/22 12:01 Gadolinium-MRI Contrast AdvReac Shortness Verified 06/27/22 12:01 Medium of breath [contrast dye] Family History Mother Diabetes Hypertension High cholesterol Thyroid disorder Uncle Cancer non-hodgkins lymphoma Grandfather Heart disease Grandmother Heart disease Brother Hypertension Unknown Breast cancer mother had 2 cousins with aggressive breast cancer Unknown Thyroid cancer maternal cousin Other Arthritis Depression Surgical History (Updated 06/12/22 @ 11:[address] 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 Smoking Status: Never smoker alcohol intake: current alcohol intake frequency: holidays/special occasions only details: occasional substance use type: does not use Vital Signs Vital Signs Vital Signs: 06/27/22 11:58 06/27/22 11:58 Temperature 98.2 F Temperature Source Temporal Pulse Rate 114 H Respiratory Rate 18 Respiratory Pattern Normal Blood Pressure 116/60 Blood Pressure Mean 78 Blood Pressure Source Monitor Blood Pressure Position Semi-Fowlers Blood Pressure Location Left Arm Pulse Ox 100 Oxygen Delivery Method Room Air Weight Weight: 91 lb 12.8 oz Body Mass Index (BMI) 23.8 Physical Exam Narrative Left breast; no obvious mass on exam as prior to patient's 2 chemotherapy treatments. No obvious lymphadenopathy. Patient does have biopsy-proven positive lymph node with clip in place. Const oriented x3 and no apparent distress Resp normal respiratory effort Cardio regular rate GI soft to palpation GI Narrative: PEG in place Assessment & Plan Assessment/Plan (1) Carcinoma of left breast metastatic to axillary lymph node: (2) Metastatic breast cancer: PLAN: Plan Planning for a left mastectomy and left axillary lymph node dissection to hopefully prevent any need for further adjuvant chemotherapy as patient did not do well with the neoadjuvant. Discussed that a full lymph node dissection will increase the risk for lymphedema. I have told the patient the risks of surgery,including but not limited to: infection, bleeding, scar tissue, seroma and persistent seroma, lymph leak, injury to any blood vessels, injury to any nerves(particularly the long thoracic, the thoracodorsal, and the second intercostal brachial and the resultant sequelae), lymphedema, cosmetic deformity, dysesthesias, wound infections, further surgery (especially if margins are not clear), complications of anesthesia, etc. the patient understands. I have answered all the patient?s questions at this point to her satisfaction and she has no further questions. Samantha Osorio M.D. Pager: [phone] [facility] [address] [place] [address], [facility], [address] [place] [address] Office: [phone] 06/27/22 1322 <Electronically signed by Samantha Osorio MD> Cosigner Signature (if applicable): CC: Dr. Jam Verde MD; Dr. Anabela Disla DO; Dr. Samantha Osorio MD~ Signed [facility] Work Phone: 1(153) 982-372308-30-2022 Miscellaneous Notes* Telephone Encounter - Nicole Wright - 01/24/2022 3:26 PM EDTSummary: New Patient Received New Patient referral from [facility] Called and spoke to pt to get insurance information to update PT's chart. PT's insurance is OON with the clinic. PT stated that she was scheduled at a location that is in network with her insurance and declined New Patient Appointment. Faxed Jo office and informed them of PT's decision. [phone] Received conformation that fax was received. documented in this encounterRockville ClinicEvaluation noteNo assessment information availableWSt. Vincent Hospital Work Phone: Evaluation note* Diagnosis Onset Date Resolution Status Breast mass, left acute [facility] Work Phone: Evaluation note* Diagnosis Onset Date Resolution Status Breast cancer acute Breast cancer acute Encounter for fitting and ad justment of vascular catheter acute Muscular dystrophy chronic [facility] Work Phone: Evaluation note* Diagnosis Onset Date Resolution Status Encounter for fitting and ad justment of vascular catheter acute Muscular dystrophy chronic Encounter for cardiac risk counseling [facility] Work Phone: Evaluation note* Diagnosis Onset Date Resolution Status Breast cancer acute Breast cancer acute Encounter for fitting and ad justment of vascular catheter acute Muscular dystrophy chronic Encounter for cardiac risk counseling acute Breast cancer acute Breast cancer acute Encounter for education acut e Breast cancer acute Acid reflux acute Breast cancer acute CINV (chemotherapy-induced nausea and vomiting) acute Diarrhea due to drug acute Breast cancer acute CINV (chemotherapy-induced nausea and vomiting) acute Diarrhea due to drug acute Hypokalemia acute [facility] Work Phone: Evaluation note* Diagnosis Onset Date Resolution Status Breast cancer acute Breast cancer acute Encounter for fitting and ad justment of vascular catheter acute Muscular dystrophy chronic Encounter for cardiac risk counseling acute Breast cancer acute Breast cancer acute Encounter for education acut e Breast cancer acute Acid reflux acute Breast cancer acute CINV (chemotherapy-induced nausea and vomiting) acute Diarrhea due to drug acute Breast cancer acute CINV (chemotherapy-induced nausea and vomiting) acute Diarrhea due to drug acute Hypokalemia acute Breast cancer acute [facility] Work Phone: Evaluation note* Diagnosis Onset Date Resolution Status Breast cancer acute Breast cancer acute Encounter for fitting and ad justment of vascular catheter acute Muscular dystrophy chronic Encounter for cardiac risk counseling acute Breast cancer acute Breast cancer acute Encounter for education acut e Breast cancer acute Acid reflux acute Breast cancer acute CINV (chemotherapy-induced nausea and vomiting) acute Diarrhea due to drug acute Breast cancer acute CINV (chemotherapy-induced nausea and vomiting) acute Diarrhea due to drug acute Hypokalemia acute Breast cancer acute Acute dyspnea acute Breast cancer acute Hypokalemia acute Lung nodule, multiple acute [facility] Work Phone: Evaluation note* Diagnosis Onset Date Resolution Status Breast cancer acute Breast cancer acute Encounter for fitting and ad justment of vascular catheter acute Muscular dystrophy chronic Encounter for cardiac risk counseling acute Breast cancer acute Breast cancer acute Encounter for education acut e Breast cancer acute Acid reflux acute Breast cancer acute CINV (chemotherapy-induced nausea and vomiting) acute Diarrhea due to drug resolve d Breast cancer acute CINV (chemotherapy-induced nausea and vomiting) acute 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 Diarrhea due to drug resolve d Breast cancer acute Breast cancer acute 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 Lung nodule, multiple resolv ed Breast cancer acute CINV (chemotherapy-induced nausea and vomiting) acute 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 Diarrhea due to drug resolve d Lung nodule, multiple resolv ed Mucositis (ulcerative) due to antineoplastic therapy resolved Oral candidiasis resolved Breast cancer acute 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 Leg sore chronic Diarrhea due to drug resolve d Lung nodule, multiple resolv ed Mucositis (ulcerative) due to antineoplastic therapy resolved Breast cancer acute 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 Leg sore chronic Diarrhea due to drug resolve d Lung nodule, multiple resolv ed Mucositis (ulcerative) due to antineoplastic therapy resolved Breast cancer acute 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 Leg sore chronic Diarrhea due to drug resolve d Lung nodule, multiple resolv ed Mucositis (ulcerative) due to antineoplastic therapy resolved Breast cancer acute Encounter for chemotherapy management acute 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 Leg sore chronic Diarrhea due to drug resolve d Lung nodule, multiple resolv ed Braces as ambulation aid acu te Breast cancer, left breast a cute Pyoderma gangrenosum acute Unspecified open wound, righ t lower leg, initial encounter acute 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 Anemia acute Breast cancer acute 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 Hypomagnesemia chronic Leg sore chronic Lung nodule, multiple resolv ed [facility] Work Phone: Evaluation note* Diagnosis Onset Date Resolution Status Breast cancer acute Breast cancer acute Encounter for fitting and ad justment of vascular catheter acute Muscular dystrophy chronic Encounter for cardiac risk counseling acute Breast cancer acute Breast cancer acute Encounter for education acut e Breast cancer acute Acid reflux acute Breast cancer acute CINV (chemotherapy-induced nausea and vomiting) acute Diarrhea due to drug resolve d Breast cancer acute CINV (chemotherapy-induced nausea and vomiting) acute 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 Diarrhea due to drug resolve d Breast cancer acute Breast cancer acute 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 Lung nodule, multiple resolv ed Breast cancer acute CINV (chemotherapy-induced nausea and vomiting) acute 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 Diarrhea due to drug resolve d Lung nodule, multiple resolv ed Mucositis (ulcerative) due to antineoplastic therapy resolved Oral candidiasis resolved Breast cancer acute 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 Leg sore chronic Diarrhea due to drug resolve d Lung nodule, multiple resolv ed Mucositis (ulcerative) due to antineoplastic therapy resolved Breast cancer acute 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 Leg sore chronic Diarrhea due to drug resolve d Lung nodule, multiple resolv ed Mucositis (ulcerative) due to antineoplastic therapy resolved Breast cancer acute 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 Leg sore chronic Diarrhea due to drug resolve d Lung nodule, multiple resolv ed Mucositis (ulcerative) due to antineoplastic therapy resolved Breast cancer acute Encounter for chemotherapy management acute 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 Leg sore chronic Diarrhea due to drug resolve d Lung nodule, multiple resolv ed Braces as ambulation aid acu te Breast cancer, left breast a cute Pyoderma gangrenosum acute Unspecified open wound, righ t lower leg, initial encounter acute 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 Anemia acute Breast cancer acute 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 Hypomagnesemia chronic Leg sore chronic Lung nodule, multiple resolv ed Anemia acute Breast cancer acute Dehydration acute 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 Hypomagnesemia chronic Lung nodule, multiple resolv ed Anemia acute Breast cancer acute CINV (chemotherapy-induced nausea and vomiting) acute Diarrhea acute Mucositis (ulcerative) due to antineoplastic therapy acute 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 Hypomagnesemia chronic Lung nodule, multiple resolv ed Anemia acute Breast cancer acute 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 Hypomagnesemia chronic Leg sore chronic Lung nodule, multiple resolv ed Braces as ambulation aid acu te Breast cancer, left breast a cute Pyoderma gangrenosum acute Ulcer of right lower extremity with fat layer exposed acute Unspecified open wound, righ t lower leg, initial encounter acute Anemia acute Breast cancer acute 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 Hypomagnesemia chronic Lung nodule, multiple resolv ed Acute hypokalemia acute Anemia acute Breast cancer metastasized to lung acute Dehydration acute Localized peritonitis acute Phlegmonous peritonitis acut e Sepsis without acute organ dysfunction acute Sinus tachycardia acute [facility] Work Phone: Evaluation note* Diagnosis Onset Date Resolution Status Breast cancer acute Encounter for fitting and ad justment of vascular catheter acute Muscular dystrophy chronic Encounter for cardiac risk counseling acute Breast cancer acute Breast cancer acute Encounter for education acut e Breast cancer acute Acid reflux acute Breast cancer acute CINV (chemotherapy-induced nausea and vomiting) acute Diarrhea due to drug resolve d Breast cancer acute CINV (chemotherapy-induced nausea and vomiting) acute 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 Diarrhea due to drug resolve d Breast cancer acute Breast cancer acute 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 Lung nodule, multiple resolv ed Breast cancer acute CINV (chemotherapy-induced nausea and vomiting) acute 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 Diarrhea due to drug resolve d Lung nodule, multiple resolv ed Mucositis (ulcerative) due to antineoplastic therapy resolved Oral candidiasis resolved Breast cancer acute 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 Leg sore chronic Diarrhea due to drug resolve d Lung nodule, multiple resolv ed Mucositis (ulcerative) due to antineoplastic therapy resolved Breast cancer acute 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 Leg sore chronic Diarrhea due to drug resolve d Lung nodule, multiple resolv ed Mucositis (ulcerative) due to antineoplastic therapy resolved Breast cancer acute 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 Leg sore chronic Diarrhea due to drug resolve d Lung nodule, multiple resolv ed Mucositis (ulcerative) due to antineoplastic therapy resolved Breast cancer acute Encounter for chemotherapy management acute 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 Leg sore chronic Diarrhea due to drug resolve d Lung nodule, multiple resolv ed Braces as ambulation aid acu te Breast cancer, left breast a cute Pyoderma gangrenosum acute Unspecified open wound, righ t lower leg, initial encounter acute 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 Anemia acute Breast cancer acute 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 Hypomagnesemia chronic Leg sore chronic Lung nodule, multiple resolv ed Anemia acute Breast cancer acute Dehydration acute 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 Hypomagnesemia chronic Lung nodule, multiple resolv ed Anemia acute Breast cancer acute CINV (chemotherapy-induced nausea and vomiting) acute Diarrhea acute Mucositis (ulcerative) due to antineoplastic therapy acute 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 Hypomagnesemia chronic Lung nodule, multiple resolv ed Anemia acute Breast cancer acute 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 Hypomagnesemia chronic Leg sore chronic Lung nodule, multiple resolv ed Braces as ambulation aid acu te Breast cancer, left breast a cute Pyoderma gangrenosum acute Ulcer of right lower extremity with fat layer exposed acute Unspecified open wound, righ t lower leg, initial encounter acute Anemia acute Breast cancer acute 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 Hypomagnesemia chronic Lung nodule, multiple resolv ed Abdominal wall abscess acute Acute hypokalemia acute Anemia acute Breast cancer, left breast a cute Colitis acute Dehydration acute Intra-abdominal abscess acut e Localized peritonitis acute Nausea acute Phlegmonous peritonitis acut e Sepsis without acute organ dysfunction acute Severe malnutrition acute Sinus tachycardia acute [facility] Work Phone: Evaluation note* Diagnosis Onset Date Resolution Status CINV (chemotherapy-induced nausea and vomiting) acute Diarrhea due to drug resolve d CINV (chemotherapy-induced nausea and vomiting) acute 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 Diarrhea due to drug resolve d 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 Lung nodule, multiple resolv ed CINV (chemotherapy-induced nausea and vomiting) acute 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 Diarrhea due to drug resolve d Lung nodule, multiple resolv ed Mucositis (ulcerative) due to antineoplastic therapy resolved Oral candidiasis resolved 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 Diarrhea due to drug resolve d Lung nodule, multiple resolv ed Mucositis (ulcerative) due to antineoplastic therapy resolved 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 Diarrhea due to drug resolve d Lung nodule, multiple resolv ed Mucositis (ulcerative) due to antineoplastic therapy resolved 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 Diarrhea due to drug resolve d Lung nodule, multiple resolv ed Mucositis (ulcerative) due to antineoplastic therapy resolved Encounter for chemotherapy management acute 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 Diarrhea due to drug resolve d Lung nodule, multiple resolv ed Braces as ambulation aid acu te 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 Pyoderma gangrenosum resolve d 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 Hypomagnesemia chronic Lung nodule, multiple resolv ed 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 Hypomagnesemia chronic Dehydration resolved Lung nodule, multiple resolv ed CINV (chemotherapy-induced nausea and vomiting) acute Diarrhea acute Mucositis (ulcerative) due to antineoplastic therapy acute 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 Hypomagnesemia chronic Lung nodule, multiple resolv ed 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 Hypomagnesemia chronic Lung nodule, multiple resolv ed Braces as ambulation aid acu te Ulcer of right lower extremity with fat layer exposed acute Pyoderma gangrenosum resolve d 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 Hypomagnesemia chronic Lung nodule, multiple resolv ed Severe malnutrition acute Sinus tachycardia acute Acute hypokalemia resolved Dehydration resolved Sepsis without acute organ dysfunction resolved Abnormal LFTs acute Allergic rhinitis acute 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 acute Colitis acute Debility acute Depression acute Diarrhea acute Diverticulosis acute Duodenal ulcer disease acute History of colonoscopy acute Hyperglycemia acute Intra-abdominal abscess acut e Metastatic breast cancer acu te Muscular dystrophy acute PEG (percutaneous endoscopic gastrostomy) status acute Severe malnutrition acute Sinus tachycardia acute Ulcer of right lower extremity with fat layer exposed acute Vitamin D deficiency acute Acute on 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 Hypomagnesemia chronic Edema due to hypoalbuminemia resolved Hyponatremia resolved Thrombocytosis resolved 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 acute Debility acute History of lymph node dissection of axilla acute Metastatic breast cancer acu te PEG (percutaneous endoscopic gastrostomy) status acute S/P left mastectomy acute Severe malnutrition acute [facility] Work Phone: Evaluation note* Diagnosis Onset Date Resolution Status 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 Lung nodule, multiple resolv ed CINV (chemotherapy-induced nausea and vomiting) acute 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 Diarrhea due to drug resolve d Lung nodule, multiple resolv ed Mucositis (ulcerative) due to antineoplastic therapy resolved Oral candidiasis resolved 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 Diarrhea due to drug resolve d Lung nodule, multiple resolv ed Mucositis (ulcerative) due to antineoplastic therapy resolved 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 Diarrhea due to drug resolve d Lung nodule, multiple resolv ed Mucositis (ulcerative) due to antineoplastic therapy resolved 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 Diarrhea due to drug resolve d Lung nodule, multiple resolv ed Mucositis (ulcerative) due to antineoplastic therapy resolved Encounter for chemotherapy management acute 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 Diarrhea due to drug resolve d Lung nodule, multiple resolv ed Braces as ambulation aid acu te 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 Pyoderma gangrenosum resolve d 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 Hypomagnesemia chronic Lung nodule, multiple resolv ed 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 Hypomagnesemia chronic Dehydration resolved Lung nodule, multiple resolv ed CINV (chemotherapy-induced nausea and vomiting) acute Mucositis (ulcerative) due to antineoplastic therapy acute 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 Hypomagnesemia chronic Diarrhea resolved Lung nodule, multiple resolv ed 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 Hypomagnesemia chronic Lung nodule, multiple resolv ed Braces as ambulation aid acu te Ulcer of right lower extremity with fat layer exposed acute Pyoderma gangrenosum resolve d 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 Hypomagnesemia chronic Lung nodule, multiple resolv ed Severe malnutrition acute Acute hypokalemia resolved Dehydration resolved Sepsis without acute organ dysfunction resolved Sinus tachycardia resolved Allergic rhinitis acute 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 acute Debility acute Depression acute Diverticulosis acute Duodenal ulcer disease acute Metastatic breast cancer acu te Muscular dystrophy acute PEG (percutaneous endoscopic gastrostomy) status acute Severe malnutrition acute Ulcer of right lower extremity with fat layer exposed acute Vitamin D deficiency acute 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 on 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 Hypomagnesemia chronic Abnormal LFTs resolved Colitis resolved Diarrhea resolved Edema due to hypoalbuminemia resolved Hyperglycemia resolved Hyponatremia resolved Intra-abdominal abscess reso lved Sinus tachycardia resolved Thrombocytosis resolved 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 acute Debility acute History of lymph node dissection of axilla acute Metastatic breast cancer acu te PEG (percutaneous endoscopic gastrostomy) status acute S/P left mastectomy acute Severe malnutrition acute 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 acute Debility acute Depression acute Diverticulosis acute Duodenal ulcer disease acute History of lymph node dissection of axilla acute Muscular dystrophy acute PEG (percutaneous endoscopic gastrostomy) status acute S/P left mastectomy acute Severe malnutrition acute Ulcer of right lower extremity with fat layer exposed acute Vitamin D deficiency acute Acute on 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 Hypomagnesemia chronic Hyponatremia resolved Sinus tachycardia resolved Thrombocytosis resolved UGI bleed resolved [facility] Work Phone: Evaluation note* Diagnosis Onset Date Resolution Status CINV (chemotherapy-induced nausea and vomiting) acute Diarrhea due to drug resolve d Hypokalemia resolved Lung nodule, multiple resolv ed Mucositis (ulcerative) due to antineoplastic therapy resolved Oral candidiasis resolved Leg sore chronic Diarrhea due to drug resolve d Hypokalemia resolved Lung nodule, multiple resolv ed Mucositis (ulcerative) due to antineoplastic therapy resolved Leg sore chronic Diarrhea due to drug resolve d Hypokalemia resolved Lung nodule, multiple resolv ed Mucositis (ulcerative) due to antineoplastic therapy resolved Leg sore chronic Diarrhea due to drug resolve d Hypokalemia resolved Lung nodule, multiple resolv ed Mucositis (ulcerative) due to antineoplastic therapy resolved Encounter for chemotherapy management acute Leg sore chronic Diarrhea due to drug resolve d Hypokalemia resolved Lung nodule, multiple resolv ed Braces as ambulation aid acu te Breast cancer, left breast c hronic Hypokalemia resolved Pyoderma gangrenosum resolve d Anemia chronic Leg sore chronic Hypokalemia resolved Hypomagnesemia resolved Lung nodule, multiple resolv ed Anemia chronic Dehydration resolved Hypokalemia resolved Hypomagnesemia resolved Lung nodule, multiple resolv ed CINV (chemotherapy-induced nausea and vomiting) acute Mucositis (ulcerative) due to antineoplastic therapy acute Anemia chronic Diarrhea resolved Hypokalemia resolved Hypomagnesemia resolved Lung nodule, multiple resolv ed Anemia chronic Leg sore chronic Hypokalemia resolved Hypomagnesemia resolved Lung nodule, multiple resolv ed Braces as ambulation aid acu te Ulcer of right lower extremity with fat layer exposed acute Breast cancer, left breast c hronic Pyoderma gangrenosum resolve d Anemia chronic Hypokalemia resolved Hypomagnesemia resolved Lung nodule, multiple resolv ed Severe malnutrition acute Breast cancer, left breast c hronic Acute hypokalemia resolved Dehydration resolved Sepsis without acute organ dysfunction resolved Sinus tachycardia resolved Allergic rhinitis acute Debility acute Depression acute Diverticulosis acute Duodenal ulcer disease acute PEG (percutaneous endoscopic gastrostomy) status acute Severe malnutrition acute Ulcer of right lower extremity with fat layer exposed acute 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 on 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 Colitis resolved Diarrhea resolved Edema due to hypoalbuminemia resolved Hyperglycemia resolved Hypokalemia resolved Hypomagnesemia resolved Hyponatremia resolved Intra-abdominal abscess reso lved Sinus tachycardia resolved Thrombocytosis resolved Debility acute History of lymph node dissection of axilla acute PEG (percutaneous endoscopic gastrostomy) status acute S/P left mastectomy acute Severe malnutrition acute Debility acute Depression acute Diverticulosis acute Duodenal ulcer disease acute History of lymph node dissection of axilla acute PEG (percutaneous endoscopic gastrostomy) status acute S/P left mastectomy acute Severe malnutrition acute Ulcer of right lower extremity with fat layer exposed acute 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 on 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 Hypomagnesemia resolved Hyponatremia resolved Sinus tachycardia resolved Thrombocytosis resolved UGI bleed resolved Anemia chronic Leg sore chronic Hypomagnesemia resolved Lung nodule, multiple resolv ed History of lymph node dissection of axilla acute S/P left mastectomy acute Breast cancer, left breast c hronic [facility] Work Phone: Evaluation note* Diagnosis Onset Date Resolution Status Leg sore chronic Diarrhea due to drug resolve d Hypokalemia resolved Lung nodule, multiple resolv ed Mucositis (ulcerative) due to antineoplastic therapy resolved Leg sore chronic Diarrhea due to drug resolve d Hypokalemia resolved Lung nodule, multiple resolv ed Mucositis (ulcerative) due to antineoplastic therapy resolved Encounter for chemotherapy management acute Leg sore chronic Diarrhea due to drug resolve d Hypokalemia resolved Lung nodule, multiple resolv ed Braces as ambulation aid acu te Breast cancer, left breast c hronic Hypokalemia resolved Pyoderma gangrenosum resolve d Anemia chronic Leg sore chronic Hypokalemia resolved Hypomagnesemia resolved Lung nodule, multiple resolv ed Anemia chronic Dehydration resolved Hypokalemia resolved Hypomagnesemia resolved Lung nodule, multiple resolv ed CINV (chemotherapy-induced nausea and vomiting) acute Mucositis (ulcerative) due to antineoplastic therapy acute Anemia chronic Diarrhea resolved Hypokalemia resolved Hypomagnesemia resolved Lung nodule, multiple resolv ed Anemia chronic Leg sore chronic Hypokalemia resolved Hypomagnesemia resolved Lung nodule, multiple resolv ed Braces as ambulation aid acu te Ulcer of right lower extremity with fat layer exposed acute Breast cancer, left breast c hronic Pyoderma gangrenosum resolve d Anemia chronic Hypokalemia resolved Hypomagnesemia resolved Lung nodule, multiple resolv ed Severe malnutrition acute Breast cancer, left breast c hronic Acute hypokalemia resolved Dehydration resolved Sepsis without acute organ dysfunction resolved Sinus tachycardia resolved Allergic rhinitis acute Debility acute Depression acute Diverticulosis acute Duodenal ulcer disease acute PEG (percutaneous endoscopic gastrostomy) status acute Severe malnutrition acute Ulcer of right lower extremity with fat layer exposed acute 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 on 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 Colitis resolved Diarrhea resolved Edema due to hypoalbuminemia resolved Hyperglycemia resolved Hypokalemia resolved Hypomagnesemia resolved Hyponatremia resolved Intra-abdominal abscess reso lved Sinus tachycardia resolved Thrombocytosis resolved Debility acute History of lymph node dissection of axilla acute PEG (percutaneous endoscopic gastrostomy) status acute S/P left mastectomy acute Severe malnutrition acute Debility acute Depression acute Diverticulosis acute Duodenal ulcer disease acute History of lymph node dissection of axilla acute PEG (percutaneous endoscopic gastrostomy) status acute S/P left mastectomy acute Severe malnutrition acute Ulcer of right lower extremity with fat layer exposed acute 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 on 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 Hypomagnesemia resolved Hyponatremia resolved Sinus tachycardia resolved Thrombocytosis resolved UGI bleed resolved Anemia chronic Leg sore chronic Hypomagnesemia resolved Lung nodule, multiple resolv ed History of lymph node dissection of axilla acute S/P left mastectomy acute Breast cancer, left breast c hronic [facility] Work Phone: Evaluation note* Diagnosis Onset Date Resolution Status Braces as ambulation aid acu te Breast cancer, left breast c hronic Hypokalemia resolved Pyoderma gangrenosum resolve d Lung nodule, multiple acute Anemia chronic Leg sore chronic Hypokalemia resolved Hypomagnesemia resolved Lung nodule, multiple acute Anemia chronic Dehydration resolved Hypokalemia resolved Hypomagnesemia resolved CINV (chemotherapy-induced nausea and vomiting) acute Lung nodule, multiple acute Mucositis (ulcerative) due to antineoplastic therapy acute Anemia chronic Diarrhea resolved Hypokalemia resolved Hypomagnesemia resolved Lung nodule, multiple acute Anemia chronic Leg sore chronic Hypokalemia resolved Hypomagnesemia resolved Braces as ambulation aid acu te Ulcer of right lower extremity with fat layer exposed acute Breast cancer, left breast c hronic Pyoderma gangrenosum resolve d Lung nodule, multiple acute Anemia chronic Hypokalemia resolved Hypomagnesemia resolved Severe malnutrition acute Breast cancer, left breast c hronic Acute hypokalemia resolved Dehydration resolved Sepsis without acute organ dysfunction resolved Sinus tachycardia resolved Allergic rhinitis acute Debility acute Depression acute Diverticulosis acute Duodenal ulcer disease acute PEG (percutaneous endoscopic gastrostomy) status acute Severe malnutrition acute Ulcer of right lower extremity with fat layer exposed acute 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 on 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 Colitis resolved Diarrhea resolved Edema due to hypoalbuminemia resolved Hyperglycemia resolved Hypokalemia resolved Hypomagnesemia resolved Hyponatremia resolved Intra-abdominal abscess reso lved Sinus tachycardia resolved Thrombocytosis resolved Debility acute History of lymph node dissection of axilla acute PEG (percutaneous endoscopic gastrostomy) status acute S/P left mastectomy acute Severe malnutrition acute Debility acute Depression acute Diverticulosis acute Duodenal ulcer disease acute History of lymph node dissection of axilla acute PEG (percutaneous endoscopic gastrostomy) status acute S/P left mastectomy acute Severe malnutrition acute Ulcer of right lower extremity with fat layer exposed acute 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 on 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 Hypomagnesemia resolved Hyponatremia resolved Sinus tachycardia resolved Thrombocytosis resolved UGI bleed resolved Lung nodule, multiple acute Anemia chronic Leg sore chronic Hypomagnesemia resolved History of lymph node dissection of axilla acute S/P left mastectomy acute Breast cancer, left breast c hronic Encounter for monitoring cardiotoxic drug therapy acute Lung nodule, multiple acute History of lymph node dissection of axilla acute S/P left mastectomy acute Breast cancer, left breast c hronic [facility] Work Phone: Evaluation note* Diagnosis Onset Date Resolution Status CINV (chemotherapy-induced nausea and vomiting) acute Lung nodule, multiple acute Mucositis (ulcerative) due to antineoplastic therapy acute Anemia chronic Diarrhea resolved Hypokalemia resolved Hypomagnesemia resolved Lung nodule, multiple acute Anemia chronic Leg sore chronic Hypokalemia resolved Hypomagnesemia resolved Braces as ambulation aid acu te Ulcer of right lower extremity with fat layer exposed acute Breast cancer, left breast c hronic Pyoderma gangrenosum resolve d Lung nodule, multiple acute Anemia chronic Hypokalemia resolved Hypomagnesemia resolved Severe malnutrition acute Breast cancer, left breast c hronic Acute hypokalemia resolved Dehydration resolved Sepsis without acute organ dysfunction resolved Sinus tachycardia resolved Allergic rhinitis acute Debility acute Depression acute Diverticulosis acute Duodenal ulcer disease acute PEG (percutaneous endoscopic gastrostomy) status acute Severe malnutrition acute Ulcer of right lower extremity with fat layer exposed acute 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 on 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 Colitis resolved Diarrhea resolved Edema due to hypoalbuminemia resolved Hyperglycemia resolved Hypokalemia resolved Hypomagnesemia resolved Hyponatremia resolved Intra-abdominal abscess reso lved Sinus tachycardia resolved Thrombocytosis resolved Debility acute History of lymph node dissection of axilla acute PEG (percutaneous endoscopic gastrostomy) status acute S/P left mastectomy acute Severe malnutrition acute Debility acute Depression acute Diverticulosis acute Duodenal ulcer disease acute History of lymph node dissection of axilla acute PEG (percutaneous endoscopic gastrostomy) status acute S/P left mastectomy acute Severe malnutrition acute Ulcer of right lower extremity with fat layer exposed acute 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 on 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 Hypomagnesemia resolved Hyponatremia resolved Sinus tachycardia resolved Thrombocytosis resolved UGI bleed resolved Lung nodule, multiple acute Anemia chronic Leg sore chronic Hypomagnesemia resolved History of lymph node dissection of axilla acute S/P left mastectomy acute Breast cancer, left breast c hronic Encounter for monitoring cardiotoxic drug therapy acute Lung nodule, multiple acute History of lymph node dissection of axilla acute S/P left mastectomy acute Breast cancer, left breast c [facility] Work Phone: Evaluation note* Diagnosis Onset Date Resolution Status Lung nodule, multiple acute Anemia chronic Leg sore chronic Hypomagnesemia resolved History of lymph node dissection of axilla acute S/P left mastectomy acute Breast cancer, left breast c hronic Encounter for monitoring cardiotoxic drug therapy acute Lung nodule, multiple acute History of lymph node dissection of axilla acute S/P left mastectomy acute Breast cancer, left breast c hronic Encounter for monitoring cardiotoxic drug therapy acute Lung nodule, multiple acute Breast cancer, left breast c hronic Breast cancer, left breast c hronic Encounter for monitoring cardiotoxic drug therapy acute Lung nodule, multiple acute Breast cancer, left breast c hronic Breast cancer, left breast c hronic Breast cancer, left breast c hronic Encounter for monitoring cardiotoxic drug therapy acute Lung nodule, multiple acute Breast cancer, left breast c hronic Encounter for monitoring cardiotoxic drug therapy acute Lung nodule, multiple acute Breast cancer, left breast c onic [facility] Work Phone: Evaluation note* Diagnosis Onset Date Resolution Status Encounter for monitoring cardiotoxic drug therapy acute Breast cancer chronic Lung nodule, multiple resolv ed History of lymph node dissection of axilla acute S/P left mastectomy acute Breast cancer, left breast c hronic Encounter for monitoring cardiotoxic drug therapy acute Breast cancer chronic Lung nodule, multiple resolv ed Breast cancer, left breast c hronic Breast cancer, left breast c hronic Encounter for monitoring cardiotoxic drug therapy acute Breast cancer chronic Lung nodule, multiple resolv ed Breast cancer, left breast c hronic Breast cancer, left breast c hronic Breast cancer, left breast c hronic Encounter for monitoring cardiotoxic drug therapy acute Breast cancer chronic Lung nodule, multiple resolv ed Breast cancer, left breast c hronic Encounter for monitoring cardiotoxic drug therapy acute Breast cancer chronic Lung nodule, multiple resolv ed Breast cancer, left breast c hronic Breast cancer chronic [facility] Work Phone: evaluation note* Diagnosis Onset Date Resolution Status History of lymph node dissection of axilla acute S/P left mastectomy acute Breast cancer, left breast c hronic Encounter for monitoring cardiotoxic drug therapy acute Breast cancer chronic Lung nodule, multiple resolv ed Breast cancer, left breast c hronic Breast cancer, left breast c hronic Encounter for monitoring cardiotoxic drug therapy acute Breast cancer chronic Lung nodule, multiple resolv ed Breast cancer, left breast c hronic Breast cancer, left breast c hronic Breast cancer, left breast c hronic Encounter for monitoring cardiotoxic drug therapy acute Breast cancer chronic Lung nodule, multiple resolv ed Breast cancer, left breast c hronic Encounter for monitoring cardiotoxic drug therapy acute Breast cancer chronic Lung nodule, multiple resolv ed Breast cancer, left breast c hronic Breast cancer chronic Breast cancer chronic [facility] Work Phone: evaluation note* Diagnosis Onset Date Resolution Status Breast cancer, left breast c hronic Breast cancer, left breast c hronic Encounter for monitoring cardiotoxic drug therapy acute Breast cancer chronic Lung nodule, multiple resolv ed Breast cancer, left breast c hronic Encounter for monitoring cardiotoxic drug therapy acute Breast cancer chronic Lung nodule, multiple resolv ed Breast cancer, left breast c hronic Breast cancer chronic Breast cancer chronic Breast cancer chronic Encounter for monitoring cardiotoxic drug therapy acute Breast cancer chronic Breast cancer chronic [facility] Work Phone: Evaluation note* Diagnosis Onset Date Resolution Status Breast cancer, left breast c hronic Encounter for monitoring cardiotoxic drug therapy acute Breast cancer chronic Lung nodule, multiple resolv ed Breast cancer, left breast c hronic Encounter for monitoring cardiotoxic drug therapy acute Breast cancer chronic Lung nodule, multiple resolv ed Breast cancer, left breast c hronic Breast cancer chronic Breast cancer chronic Breast cancer chronic Encounter for monitoring cardiotoxic drug therapy acute Breast cancer chronic Breast cancer chronic [facility] Work Phone: Evaluation note* Diagnosis Onset Date Resolution Status Breast cancer, left breast c hronic Encounter for monitoring cardiotoxic drug therapy acute Breast cancer chronic Lung nodule, multiple resolv ed Breast cancer, left breast c hronic Breast cancer chronic Breast cancer chronic Breast cancer chronic Encounter for monitoring cardiotoxic drug therapy acute Breast cancer chronic Breast cancer chronic Braces as ambulation aid acu te Ulcer of right lower extremity with fat layer exposed acute [facility] Work Phone: Evaluation note* Diagnosis Onset Date Resolution Status Encounter for monitoring cardiotoxic drug therapy acute Breast cancer chronic Lung nodule, multiple resolv ed Breast cancer, left breast c hronic Breast cancer chronic Breast cancer chronic Breast cancer chronic Encounter for monitoring cardiotoxic drug therapy acute Breast cancer chronic Breast cancer chronic Braces as ambulation aid acu te Ulcer of right lower extremity with fat layer exposed acute Braces as ambulation aid acu te Ulcer of right lower extremity with fat layer exposed acute Encounter for monitoring cardiotoxic drug therapy acute Breast cancer chronic [facility] Work Phone: Evaluation note* Diagnosis Onset Date Resolution Status Breast cancer chronic Encounter for monitoring cardiotoxic drug therapy acute Hot flashes due to tamoxifen acute Breast cancer chronic Breast cancer chronic Encounter for education acut e Breast cancer chronic [facility] Work Phone: Hospital Discharge instructionsAmbulatory Orders* Genetic Counseling, [facility] Location: None Selected [facility] Work Phone: Hospital Discharge instructions Additional Instructions Follow-up with your oncologist for further testing to evaluate for spread of cancer to the lungs.[facility] Work Phone: Hospital Discharge instructions Additional Instructions Report to now clinic for drug testing immediately.[facility] Work Phone: Reason for referral (narrative)No reason for referral information availableWooUniversity [facility] Work Phone: Summary Purpose Family History No Family History Records Found Relationship Condition Age at Onset Recorded Date/T stephen Not Specified Diabetes mellitus Unknown Arthritis Unknown Depression Unknown Cardiac disease Unknown Hypertension Unknown Relationship Condition Age at Onset Recorded Date/T stephen Not Specified Arthritis Unknown Depression Unknown mother Diabetes mellitus Unknown Hypertension Unknown High blood cholesterol Unknown Disorder of thyroid Unknown uncle Malignant neoplasm Unknown grandfather Cardiac disease Unknown grandmother Cardiac disease Unknown brother Hypertension Unknown Relationship Condition Age at Onset Recorded Date/T stephen Not Specified Arthritis Unknown Depression Unknown mother Diabetes mellitus Unknown Hypertension Unknown High blood cholesterol Unknown Disorder of thyroid Unknown uncle Malignant neoplasm Unknown grandfather Cardiac disease Unknown grandmother Cardiac disease Unknown brother Hypertension Unknown Not Specified Malignant neoplasm of breast Unknown Not Specified Malignant neoplasm of thyroid gland Unkn own Relationship Condition Age at Onset Recorded Date/T stephen Not Specified Arthritis Unknown Depression Unknown mother Diabetes mellitus Unknown Hypertension Unknown High blood cholesterol Unknown Disorder of thyroid Unknown uncle Malignant neoplasm Unknown grandfather Cardiac disease Unknown grandmother Cardiac disease Unknown brother Hypertension Unknown unrelated friend Malignant neoplasm of breast Unknown unrelated friend Malignant neoplasm of thyroid gland U nknown Advance Directives No Advanced Directives Records Found Advance Directive Response Recorded Date/ Time Living Will No February 03 8:11am Power of Fur Tailor No February 03, 2022 8:11am Advance Directive Response Recorded Date/ Time Advance Directives on File No er 2021 11:23am Advance Directives No March 14, 2022 11:23am Living Will No March 14 11:23am Power of Fur Tailor No March 14, 2022 11:23am Advance Directive Response Recorded Date/ Time Advance Directives on File No 2021 10:22am Advance Directives No March 21, 2022 10:22am Living Will No March 22 8:05am Power of Fur Tailor No March 22, 2022 8:05am Advance Directive Response Recorded Date/ Time Advance Directives on File No Octob er 2021 4:16pm Advance Directives No March 22, 2022 4:16pm Living Will No March 26 10:22pm Power of Fur Tailor No March 26, 2022 10:22pm Advance Directive Response Recorded Date/ Time Advance Directives on File No 2021 1:06pm Advance Directives No March 1:06pm Living Will No March 26 9:22pm Power of Fur Tailor No March 26, 2022 9:22pm Advance Directive Response Recorded Date/ Time Advance Directives on File No Dece2021 8:51am Advance Directives No April 8:51am Living Will No Chepe 26th, 2 022 12:50pm Power of Fur Tailor No May 22, 2022 12:50pm Advance Directive Response Recorded Date/ Time Advance Directives on File No Dece2021 8:51am Advance Directives No April 8:51am Living Will No May 23, 022 5:01pm Power of Fur Tailor No May 23, 2022 5:01pm Advance Directive Response Recorded Date/ Time Advance Directives on File No Decem 2021 8:51am Name of Medical Power of Fur Tailor Jacoby March, friend May 31, 2022 4:03pm Name of Medical Power of Fur Tailor Jacoby Will June 27, 2022 6:33pm Advance Directives No April 8:51am Living Will Yes June 27 6:33pm Power of Fur Tailor Yes June 27, 2022 6:33pm Advance Directive Response Recorded Date/ Time Advance Directives on File No Decem 2021 8:51am Name of Medical Power of Fur Tailor Jacoby July, friend May 31, 2022 4:03pm Name of Medical Power of Fur Tailor Jacoby Will June 27, 2022 6:33pm Name of Medical Power of Fur Tailor Jacoby July, friend July 03, 2022 10:06am Advance Directives No April 8:51am Living Will Yes July 03 10:06am Power of Fur Tailor Yes July 03, 2022 10:06am Advance Directive Response Recorded Date/ Time Advance Directives on File No August 07, 2022 10:15am Name of Medical Power of Fur Tailor Jacoby July, friend May 31, 2022 5:03pm Name of Medical Power of Fur Tailor Jacoby Will June 27, 2022 7:33pm Name of Medical Power of Fur Tailor Jacoby July, friend July 03, 2022 11:06am Name of Medical Power of Fur Tailor JACOBY JulyAugust 16, 2022 2:36pm Advance Directives No August 07, 2 023 10:15am Living Will Yes August 16, 2022 2:36pm Power of Fur Tailor Yes August 16 2:36pm Advance Directive Response Recorded Date/ Time Advance Directives on File No October 30, 2022 11:20am Advance Directives No October 30 11:20am Living Will Yes October 30, 2022 1 1:20am Power of Fur Tailor Yes October 30, 2022 11:20am Name of Medical Power of Fur Tailor JACOBY JulyAugust 16, 2022 2:36pm Advance Directive Response Recorded Date/ Time Advance Directives on File No Augus t 2022 10:37am Advance Directives No January 22, 2023 10:37am Living Will No January 22 10:37am Power of Fur Tailor No January 22, 023 10:37am Advance Directive Response Recorded Date/ Time Advance Directives on File No Jane mber 2022 2:45pm Advance Directives No January 2:45pm Living Will No February 12, 2023 2:45pm Power of Fur Tailor No January 2:45pm Advance Directive Response Recorded Date/ Time Advance Directives on File No Octob er 2022 1:47pm Advance Directives No March 26, 2023 1:47pm Living Will No July 02 10:45am Power of Fur Tailor No July 02, 2023 10:45am Advance Directive Response Recorded Date/ Time Advance Directives on File No Octob er 2022 2:47pm Living Will No March 26 2:47pm Do you have a Healthcare Power of Fur Tailor? No March 26, 2023 2:47pm Advance Directives No March 26, 2023 2:47pm Chief Complaint and Reason for Visit Chief Complaint SCREENING ABNORMAL MAMMO Chief Complaint SCREENING ABNORMAL MAMMO L BREAST BIRADS 4 L BREAST BIOPSY Reason for Visit Breast mass, left Chief Complaint SCREENING ABNORMAL MAMMO L BREAST BIRADS 4 L BREAST BIOPSY NEW - BREAST CA US LEFT AXILLA BREAST CA STAGING PORT PLACEMENT Malignant neoplasm of unspecified site of unspecif Reason for Visit Breast cancer Breast cancer Encounter for fitting and adjustment of vascular catheter Muscular dystrophy Chief Complaint SCREENING ABNORMAL MAMMO L BREAST BIRADS 4 L BREAST BIOPSY NEW - BREAST CA US LEFT AXILLA BREAST CA STAGING PORT PLACEMENT Malignant neoplasm of unspecified site of unspecif MALIGNANT NEOPLASM OF BREAST to be seen before cancer treatment per [facility] INSERTION RT IJ PORT INSERTION RT IJ PORT Reason for Visit Encounter for fittin g and adjustment of vascular catheter Muscular dystrophy Encounter for cardiac risk counseling Chief Complaint SCREENING ABNORMAL MAMMO L BREAST BIRADS 4 L BREAST BIOPSY NEW - BREAST CA US LEFT AXILLA BREAST CA STAGING PORT PLACEMENT Malignant neoplasm of unspecified site of unspecif MALIGNANT NEOPLASM OF BREAST to be seen before cancer treatment per [facility] INSERTION RT IJ PORT INSERTION RT IJ PORT F/U DISCUSS TREATMENT START/REVIEW RESULTS SUTURE REMOVAL 02/07/22 CHEMO ED - [facility] 1WK LABS [place] ACUTE-ASKING FOR HYDRATION Potassium infusion Reason for Visit Breast cancer Breast cancer Encounter for fitting and adjustment of vascular catheter Muscular dystrophy Encounter for cardiac risk counseling Breast cancer Breast cancer Encounter for education Breast cancer Acid reflux Breast cancer CINV (chemotherapy-induced nausea and vomiting) Diarrhea due to drug Breast cancer CINV (chemotherapy-induced nausea and vomiting) Diarrhea due to drug Hypokalemia Chief Complaint SCREENING ABNORMAL MAMMO L BREAST BIRADS 4 L BREAST BIOPSY NEW - BREAST CA US LEFT AXILLA BREAST CA STAGING PORT PLACEMENT Malignant neoplasm of unspecified site of unspecif MALIGNANT NEOPLASM OF BREAST to be seen before cancer treatment per [place] INSERTION RT IJ PORT INSERTION RT IJ PORT F/U DISCUSS TREATMENT START/REVIEW RESULTS SUTURE REMOVAL 02/07/22 CHEMO ED - [facility] 1WK LABS [facility] [place] ACUTE-ASKING FOR HYDRATION 2WKS LABS TOX CHECK 1WK LABS [facility] fulphila SOB Reason for Visit Breast cancer Breast cancer Encounter for fitting and adjustment of vascular catheter Muscular dystrophy Encounter for cardiac risk counseling Breast cancer Breast cancer Encounter for education Breast cancer Acid reflux Breast cancer CINV (chemotherapy-induced nausea and vomiting) Diarrhea due to drug Breast cancer CINV (chemotherapy-induced nausea and vomiting) Diarrhea due to drug Hypokalemia Breast cancer Chief Complaint SCREENING ABNORMAL MAMMO L BREAST BIRADS 4 L BREAST BIOPSY NEW - BREAST CA US LEFT AXILLA BREAST CA STAGING PORT PLACEMENT Malignant neoplasm of unspecified site of unspecif MALIGNANT NEOPLASM OF BREAST to be seen before cancer treatment per [place] INSERTION RT IJ PORT INSERTION RT IJ PORT F/U DISCUSS TREATMENT START/REVIEW RESULTS SUTURE REMOVAL 02/07/22 CHEMO ED - [facility] 1WK LABS [facility] [place] ACUTE-ASKING FOR HYDRATION 2WKS LABS TOX CHECK 1WK LABS [facility] SOB ER F/U DYSPNEA syncope Reason for Visit Breast cancer Breast cancer Encounter for fitting and adjustment of vascular catheter Muscular dystrophy Encounter for cardiac risk counseling Breast cancer Breast cancer Encounter for education Breast cancer Acid reflux Breast cancer CINV (chemotherapy-induced nausea and vomiting) Diarrhea due to drug Breast cancer CINV (chemotherapy-induced nausea and vomiting) Diarrhea due to drug Hypokalemia Breast cancer Acute dyspnea Breast cancer Hypokalemia Lung nodule, multiple Chief Complaint SCREENING ABNORMAL MAMMO L BREAST BIRADS 4 L BREAST BIOPSY NEW - BREAST CA US LEFT AXILLA BREAST CA STAGING PORT PLACEMENT Malignant neoplasm of unspecified site of unspecif MALIGNANT NEOPLASM OF BREAST to be seen before cancer treatment per [place] INSERTION RT IJ PORT INSERTION RT IJ PORT F/U DISCUSS TREATMENT START/REVIEW RESULTS SUTURE REMOVAL 02/07/22 CHEMO ED - [facility] 1WK LABS [facility] [place] ACUTE-ASKING FOR HYDRATION 2WKS LABS TOX CHECK 1WK LABS [facility] SOB ER F/U syncope 1 WK - LABS 1 WK - LABS wound TOX CHECK - LABS wound 3 WKS - LABS - [facility] wound wound 1WK LABS TCH wound 1WK LABS TOX CHECK wound potassium and magnesium infusions NOT FEELING WELL - LABS FLUID OVER 2 HOURS Reason for Visit Breast cancer Breast cancer Encounter for fitting and adjustment of vascular catheter Muscular dystrophy Encounter for cardiac risk counseling Breast cancer Breast cancer Encounter for education Breast cancer Acid reflux Breast cancer CINV (chemotherapy-induced nausea and vomiting) Diarrhea due to drug Breast cancer CINV (chemotherapy-induced nausea and vomiting) Hypokalemia Diarrhea due to drug Breast cancer Breast cancer Hypokalemia Lung nodule, multiple Breast cancer CINV (chemotherapy-induced nausea and vomiting) Hypokalemia Diarrhea due to drug Lung nodule, multiple Mucositis (ulcerative) due to antineoplastic therapy Oral candidiasis Breast cancer Hypokalemia Leg sore Diarrhea due to drug Lung nodule, multiple Mucositis (ulcerative) due to antineoplastic therapy Breast cancer Hypokalemia Leg sore Diarrhea due to drug Lung nodule, multiple Mucositis (ulcerative) due to antineoplastic therapy Breast cancer Hypokalemia Leg sore Diarrhea due to drug Lung nodule, multiple Mucositis (ulcerative) due to antineoplastic therapy Breast cancer Encounter for chemotherapy management Hypokalemia Leg sore Diarrhea due to drug Lung nodule, multiple Braces as ambulation aid Breast cancer, left breast Pyoderma gangrenosum Unspecified open wound, right lower leg, initial encounter Hypokalemia Anemia Breast cancer Hypokalemia Hypomagnesemia Leg sore Lung nodule, multiple Chief Complaint NEW - BREAST CA US LEFT AXILLA BREAST CA STAGING PORT PLACEMENT Malignant neoplasm of unspecified site of unspecif MALIGNANT NEOPLASM OF BREAST to be seen before cancer treatment per [facility] INSERTION RT IJ PORT INSERTION RT IJ PORT F/U DISCUSS TREATMENT START/REVIEW RESULTS SUTURE REMOVAL 02/07/22 CHEMO ED - [facility] 1WK LABS [facility] [place] ACUTE-ASKING FOR HYDRATION 2WKS LABS TOX CHECK 1WK LABS [facility] SOB ER F/U syncope 1 WK - LABS 1 WK - LABS wound TOX CHECK - LABS wound 3 WKS - LABS - [facility] wound wound 1WK LABS TCH wound 1WK LABS TOX CHECK wound NOT FEELING WELL - LABS FLUID OVER 2 HOURS wound TOX CHECK - LABS wound 2WKS LABS TCH wound wound TOX CHECK - LABS hydration + electrolyte replacement COLITIS Reason for Visit Breast cancer Breast cancer Encounter for fitting and adjustment of vascular catheter Muscular dystrophy Encounter for cardiac risk counseling Breast cancer Breast cancer Encounter for education Breast cancer Acid reflux Breast cancer CINV (chemotherapy-induced nausea and vomiting) Diarrhea due to drug Breast cancer CINV (chemotherapy-induced nausea and vomiting) Hypokalemia Diarrhea due to drug Breast cancer Breast cancer Hypokalemia Lung nodule, multiple Breast cancer CINV (chemotherapy-induced nausea and vomiting) Hypokalemia Diarrhea due to drug Lung nodule, multiple Mucositis (ulcerative) due to antineoplastic therapy Oral candidiasis Breast cancer Hypokalemia Leg sore Diarrhea due to drug Lung nodule, multiple Mucositis (ulcerative) due to antineoplastic therapy Breast cancer Hypokalemia Leg sore Diarrhea due to drug Lung nodule, multiple Mucositis (ulcerative) due to antineoplastic therapy Breast cancer Hypokalemia Leg sore Diarrhea due to drug Lung nodule, multiple Mucositis (ulcerative) due to antineoplastic therapy Breast cancer Encounter for chemotherapy management Hypokalemia Leg sore Diarrhea due to drug Lung nodule, multiple Braces as ambulation aid Breast cancer, left breast Pyoderma gangrenosum Unspecified open wound, right lower leg, initial encounter Hypokalemia Anemia Breast cancer Hypokalemia Hypomagnesemia Leg sore Lung nodule, multiple Anemia Breast cancer Dehydration Hypokalemia Hypomagnesemia Lung nodule, multiple Anemia Breast cancer CINV (chemotherapy-induced nausea and vomiting) Diarrhea Mucositis (ulcerative) due to antineoplastic therapy Hypokalemia Hypomagnesemia Lung nodule, multiple Anemia Breast cancer Hypokalemia Hypomagnesemia Leg sore Lung nodule, multiple Braces as ambulation aid Breast cancer, left breast Pyoderma gangrenosum Ulcer of right lower extremity with fat layer exposed Unspecified open wound, right lower leg, initial encounter Anemia Breast cancer Hypokalemia Hypomagnesemia Lung nodule, multiple Acute hypokalemia Anemia Breast cancer metastasized to lung Dehydration Localized peritonitis Phlegmonous peritonitis Sepsis without acute organ dysfunction Sinus tachycardia Chief Complaint PORT PLACEMENT Malignant neoplasm of unspecified site of unspecif MALIGNANT NEOPLASM OF BREAST to be seen before cancer treatment per [facility] INSERTION RT IJ PORT INSERTION RT IJ PORT F/U DISCUSS TREATMENT START/REVIEW RESULTS SUTURE REMOVAL 02/07/22 CHEMO ED - [facility] 1WK LABS [facility] [place] ACUTE-ASKING FOR HYDRATION 2WKS LABS TOX CHECK 1WK LABS [facility] SOB ER F/U syncope 1 WK - LABS 1 WK - LABS wound TOX CHECK - LABS wound 3 WKS - LABS - [facility] wound wound 1WK LABS TCH wound 1WK LABS TOX CHECK wound NOT FEELING WELL - LABS FLUID OVER 2 HOURS wound TOX CHECK - LABS wound 2WKS LABS TCH wound wound TOX CHECK - LABS hydration + electrolyte replacement COLITIS Colitis Colitis Colitis Colitis Colitis Colitis Colitis Colitis Colitis Colitis Colitis Colitis Colitis Reason for Visit Breast cancer Encounter for fitting and adjustment of vascular catheter Muscular dystrophy Encounter for cardiac risk counseling Breast cancer Breast cancer Encounter for education Breast cancer Acid reflux Breast cancer CINV (chemotherapy-induced nausea and vomiting) Diarrhea due to drug Breast cancer CINV (chemotherapy-induced nausea and vomiting) Hypokalemia Diarrhea due to drug Breast cancer Breast cancer Hypokalemia Lung nodule, multiple Breast cancer CINV (chemotherapy-induced nausea and vomiting) Hypokalemia Diarrhea due to drug Lung nodule, multiple Mucositis (ulcerative) due to antineoplastic therapy Oral candidiasis Breast cancer Hypokalemia Leg sore Diarrhea due to drug Lung nodule, multiple Mucositis (ulcerative) due to antineoplastic therapy Breast cancer Hypokalemia Leg sore Diarrhea due to drug Lung nodule, multiple Mucositis (ulcerative) due to antineoplastic therapy Breast cancer Hypokalemia Leg sore Diarrhea due to drug Lung nodule, multiple Mucositis (ulcerative) due to antineoplastic therapy Breast cancer Encounter for chemotherapy management Hypokalemia Leg sore Diarrhea due to drug Lung nodule, multiple Braces as ambulation aid Breast cancer, left breast Pyoderma gangrenosum Unspecified open wound, right lower leg, initial encounter Hypokalemia Anemia Breast cancer Hypokalemia Hypomagnesemia Leg sore Lung nodule, multiple Anemia Breast cancer Dehydration Hypokalemia Hypomagnesemia Lung nodule, multiple Anemia Breast cancer CINV (chemotherapy-induced nausea and vomiting) Diarrhea Mucositis (ulcerative) due to antineoplastic therapy Hypokalemia Hypomagnesemia Lung nodule, multiple Anemia Breast cancer Hypokalemia Hypomagnesemia Leg sore Lung nodule, multiple Braces as ambulation aid Breast cancer, left breast Pyoderma gangrenosum Ulcer of right lower extremity with fat layer exposed Unspecified open wound, right lower leg, initial encounter Anemia Breast cancer Hypokalemia Hypomagnesemia Lung nodule, multiple Abdominal wall abscess Acute hypokalemia Anemia Breast cancer, left breast Colitis Dehydration Intra-abdominal abscess Localized peritonitis Nausea Phlegmonous peritonitis Sepsis without acute organ dysfunction Severe malnutrition Sinus tachycardia Chief Complaint ACUTE-ASKING FOR HYD RATION 2WKS LABS TOX CHECK 1WK LABS [facility] SOB ER F/U syncope 1 WK - LABS 1 WK - LABS wound TOX CHECK - LABS wound 3 WKS - LABS - [facility] wound wound 1WK LABS TCH wound 1WK LABS TOX CHECK wound NOT FEELING WELL - LABS FLUID OVER 2 HOURS wound TOX CHECK - LABS wound 2WKS LABS TCH wound wound TOX CHECK - LABS hydration + electrolyte replacement Abdominal infxn Colitis Colitis Colitis Colitis Colitis Colitis TACHY Colitis Colitis Colitis Colitis Colitis Colitis Colitis Colitis INTRA ABDOMINAL ABSCESS INTRA ABDOMINAL ABSCESS Amb Documentation INTRA ABDOMINAL ABSCESS INTRA ABDOMINAL ABSCESS INTRA ABDOMINAL ABSCESS INTRA ABDOMINAL ABSCESS INTRA ABDOMINAL ABSCESS INTRA ABDOMINAL ABSCESS INTRA ABDOMINAL ABSCESS INTRA ABDOMINAL ABSCESS INTRA ABDOMINAL ABSCESS INTRA ABDOMINAL ABSCESS INTRA ABDOMINAL ABSCESS INTRA ABDOMINAL ABSCESS INTRA ABDOMINAL ABSCESS INTRA ABDOMINAL ABSCESS INTRA ABDOMINAL ABSCESS INTRA ABDOMINAL ABSCESS INTRA ABDOMINAL ABSCESS INTRA ABDOMINAL ABSCESS INTRA ABDOMINAL ABSCESS INTRA ABDOMINAL ABSCESS INTRA ABDOMINAL ABSCESS INTRA ABDOMINAL ABSCESS INTRA ABDOMINAL ABSCESS Reason for Visit CINV (chemotherapy-i nduced nausea and vomiting) Diarrhea due to drug CINV (chemotherapy-induced nausea and vomiting) Hypokalemia Diarrhea due to drug Hypokalemia Lung nodule, multiple CINV (chemotherapy-induced nausea and vomiting) Hypokalemia Diarrhea due to drug Lung nodule, multiple Mucositis (ulcerative) due to antineoplastic therapy Oral candidiasis Hypokalemia Diarrhea due to drug Lung nodule, multiple Mucositis (ulcerative) due to antineoplastic therapy Hypokalemia Diarrhea due to drug Lung nodule, multiple Mucositis (ulcerative) due to antineoplastic therapy Hypokalemia Diarrhea due to drug Lung nodule, multiple Mucositis (ulcerative) due to antineoplastic therapy Encounter for chemotherapy management Hypokalemia Diarrhea due to drug Lung nodule, multiple Braces as ambulation aid Hypokalemia Pyoderma gangrenosum Hypokalemia Hypomagnesemia Lung nodule, multiple Hypokalemia Hypomagnesemia Dehydration Lung nodule, multiple CINV (chemotherapy-induced nausea and vomiting) Diarrhea Mucositis (ulcerative) due to antineoplastic therapy Hypokalemia Hypomagnesemia Lung nodule, multiple Hypokalemia Hypomagnesemia Lung nodule, multiple Braces as ambulation aid Ulcer of right lower extremity with fat layer exposed Pyoderma gangrenosum Hypokalemia Hypomagnesemia Lung nodule, multiple Severe malnutrition Sinus tachycardia Acute hypokalemia Dehydration Sepsis without acute organ dysfunction Abnormal LFTs Allergic rhinitis Carcinoma of left breast metastatic to axillary lymph node Colitis Debility Depression Diarrhea Diverticulosis Duodenal ulcer disease History of colonoscopy Hyperglycemia Intra-abdominal abscess Metastatic breast cancer Muscular dystrophy PEG (percutaneous endoscopic gastrostomy) status Severe malnutrition Sinus tachycardia Ulcer of right lower extremity with fat layer exposed Vitamin D deficiency Acute on chronic anemia Hypokalemia Hypomagnesemia Edema due to hypoalbuminemia Hyponatremia Thrombocytosis Carcinoma of left breast metastatic to axillary lymph node Debility History of lymph node dissection of axilla Metastatic breast cancer PEG (percutaneous endoscopic gastrostomy) status S/P left mastectomy Severe malnutrition Chief Complaint SOB ER F/U syncope 1 WK - LABS 1 WK - LABS wound TOX CHECK - LABS wound 3 WKS - LABS - [facility] wound wound 1WK LABS TCH wound 1WK LABS TOX CHECK wound NOT FEELING WELL - LABS FLUID OVER 2 HOURS wound TOX CHECK - LABS wound 2WKS LABS TCH wound wound TOX CHECK - LABS hydration + electrolyte replacement Abdominal infxn Colitis Colitis Colitis Colitis Colitis Colitis TACHY Colitis Colitis Colitis Colitis Colitis Colitis Colitis Colitis INTRA ABDOMINAL ABSCESS INTRA ABDOMINAL ABSCESS Amb Documentation INTRA ABDOMINAL ABSCESS INTRA ABDOMINAL ABSCESS INTRA ABDOMINAL ABSCESS INTRA ABDOMINAL ABSCESS INTRA ABDOMINAL ABSCESS INTRA ABDOMINAL ABSCESS INTRA ABDOMINAL ABSCESS INTRA ABDOMINAL ABSCESS INTRA ABDOMINAL ABSCESS INTRA ABDOMINAL ABSCESS INTRA ABDOMINAL ABSCESS INTRA ABDOMINAL ABSCESS INTRA ABDOMINAL ABSCESS INTRA ABDOMINAL ABSCESS INTRA ABDOMINAL ABSCESS INTRA ABDOMINAL ABSCESS INTRA ABDOMINAL ABSCESS INTRA ABDOMINAL ABSCESS INTRA ABDOMINAL ABSCESS INTRA ABDOMINAL ABSCESS INTRA ABDOMINAL ABSCESS INTRA ABDOMINAL ABSCESS INTRA ABDOMINAL ABSCESS LEFT MASECTOMY LEFT MASECTOMY LEFT MASECTOMY LEFT MASECTOMY LEFT MASECTOMY LEFT MASECTOMY LEFT MASECTOMY LEFT MASECTOMY LEFT MASECTOMY LEFT MASECTOMY PEG TUBE Reason for Visit Hypokalemia Lung nodule, multiple CINV (chemotherapy-induced nausea and vomiting) Hypokalemia Diarrhea due to drug Lung nodule, multiple Mucositis (ulcerative) due to antineoplastic therapy Oral candidiasis Hypokalemia Diarrhea due to drug Lung nodule, multiple Mucositis (ulcerative) due to antineoplastic therapy Hypokalemia Diarrhea due to drug Lung nodule, multiple Mucositis (ulcerative) due to antineoplastic therapy Hypokalemia Diarrhea due to drug Lung nodule, multiple Mucositis (ulcerative) due to antineoplastic therapy Encounter for chemotherapy management Hypokalemia Diarrhea due to drug Lung nodule, multiple Braces as ambulation aid Hypokalemia Pyoderma gangrenosum Hypokalemia Hypomagnesemia Lung nodule, multiple Hypokalemia Hypomagnesemia Dehydration Lung nodule, multiple CINV (chemotherapy-induced nausea and vomiting) Mucositis (ulcerative) due to antineoplastic therapy Hypokalemia Hypomagnesemia Diarrhea Lung nodule, multiple Hypokalemia Hypomagnesemia Lung nodule, multiple Braces as ambulation aid Ulcer of right lower extremity with fat layer exposed Pyoderma gangrenosum Hypokalemia Hypomagnesemia Lung nodule, multiple Severe malnutrition Acute hypokalemia Dehydration Sepsis without acute organ dysfunction Sinus tachycardia Allergic rhinitis Carcinoma of left breast metastatic to axillary lymph node Debility Depression Diverticulosis Duodenal ulcer disease Metastatic breast cancer Muscular dystrophy PEG (percutaneous endoscopic gastrostomy) status Severe malnutrition Ulcer of right lower extremity with fat layer exposed Vitamin D deficiency Acute on chronic anemia Hypokalemia Hypomagnesemia Abnormal LFTs Colitis Diarrhea Edema due to hypoalbuminemia Hyperglycemia Hyponatremia Intra-abdominal abscess Sinus tachycardia Thrombocytosis Carcinoma of left breast metastatic to axillary lymph node Debility History of lymph node dissection of axilla Metastatic breast cancer PEG (percutaneous endoscopic gastrostomy) status S/P left mastectomy Severe malnutrition Carcinoma of left breast metastatic to axillary lymph node Debility Depression Diverticulosis Duodenal ulcer disease History of lymph node dissection of axilla Muscular dystrophy PEG (percutaneous endoscopic gastrostomy) status S/P left mastectomy Severe malnutrition Ulcer of right lower extremity with fat layer exposed Vitamin D deficiency Acute on chronic anemia Hypokalemia Hypomagnesemia Hyponatremia Sinus tachycardia Thrombocytosis UGI bleed Chief Complaint 1 WK - LABS 1 WK - LABS wound TOX CHECK - LABS wound 3 WKS - LABS - TCHP wound wound 1WK LABS TCH wound 1WK LABS TOX CHECK wound NOT FEELING WELL - LABS FLUID OVER 2 HOURS wound TOX CHECK - LABS wound 2WKS LABS TCH wound wound TOX CHECK - LABS Abdominal infxn Colitis Colitis Colitis Colitis Colitis Colitis TACHY Colitis Colitis Colitis Colitis Colitis Colitis Colitis Colitis INTRA ABDOMINAL ABSCESS INTRA ABDOMINAL ABSCESS Amb Documentation INTRA ABDOMINAL ABSCESS INTRA ABDOMINAL ABSCESS INTRA ABDOMINAL ABSCESS INTRA ABDOMINAL ABSCESS INTRA ABDOMINAL ABSCESS INTRA ABDOMINAL ABSCESS INTRA ABDOMINAL ABSCESS INTRA ABDOMINAL ABSCESS INTRA ABDOMINAL ABSCESS INTRA ABDOMINAL ABSCESS INTRA ABDOMINAL ABSCESS INTRA ABDOMINAL ABSCESS INTRA ABDOMINAL ABSCESS INTRA ABDOMINAL ABSCESS INTRA ABDOMINAL ABSCESS INTRA ABDOMINAL ABSCESS INTRA ABDOMINAL ABSCESS INTRA ABDOMINAL ABSCESS INTRA ABDOMINAL ABSCESS INTRA ABDOMINAL ABSCESS INTRA ABDOMINAL ABSCESS INTRA ABDOMINAL ABSCESS INTRA ABDOMINAL ABSCESS LEFT MASECTOMY LEFT MASECTOMY LEFT MASECTOMY LEFT MASECTOMY LEFT MASECTOMY LEFT MASECTOMY LEFT MASECTOMY LEFT MASECTOMY LEFT MASECTOMY LEFT MASECTOMY PEG TUBE CONSULT - BREAST F/U FROM [facility] hydration + electrolyte replacement L MASECTOMY 07/11 Reason for Visit CINV (chemotherapy-i nduced nausea and vomiting) Diarrhea due to drug Hypokalemia Lung nodule, multiple Mucositis (ulcerative) due to antineoplastic therapy Oral candidiasis Leg sore Diarrhea due to drug Hypokalemia Lung nodule, multiple Mucositis (ulcerative) due to antineoplastic therapy Leg sore Diarrhea due to drug Hypokalemia Lung nodule, multiple Mucositis (ulcerative) due to antineoplastic therapy Leg sore Diarrhea due to drug Hypokalemia Lung nodule, multiple Mucositis (ulcerative) due to antineoplastic therapy Encounter for chemotherapy management Leg sore Diarrhea due to drug Hypokalemia Lung nodule, multiple Braces as ambulation aid Breast cancer, left breast Hypokalemia Pyoderma gangrenosum Anemia Leg sore Hypokalemia Hypomagnesemia Lung nodule, multiple Anemia Dehydration Hypokalemia Hypomagnesemia Lung nodule, multiple CINV (chemotherapy-induced nausea and vomiting) Mucositis (ulcerative) due to antineoplastic therapy Anemia Diarrhea Hypokalemia Hypomagnesemia Lung nodule, multiple Anemia Leg sore Hypokalemia Hypomagnesemia Lung nodule, multiple Braces as ambulation aid Ulcer of right lower extremity with fat layer exposed Breast cancer, left breast Pyoderma gangrenosum Anemia Hypokalemia Hypomagnesemia Lung nodule, multiple Severe malnutrition Breast cancer, left breast Acute hypokalemia Dehydration Sepsis without acute organ dysfunction Sinus tachycardia Allergic rhinitis Debility Depression Diverticulosis Duodenal ulcer disease PEG (percutaneous endoscopic gastrostomy) status Severe malnutrition Ulcer of right lower extremity with fat layer exposed Acute on chronic anemia Abnormal LFTs Colitis Diarrhea Edema due to hypoalbuminemia Hyperglycemia Hypokalemia Hypomagnesemia Hyponatremia Intra-abdominal abscess Sinus tachycardia Thrombocytosis Debility History of lymph node dissection of axilla PEG (percutaneous endoscopic gastrostomy) status S/P left mastectomy Severe malnutrition Debility Depression Diverticulosis Duodenal ulcer disease History of lymph node dissection of axilla PEG (percutaneous endoscopic gastrostomy) status S/P left mastectomy Severe malnutrition Ulcer of right lower extremity with fat layer exposed Acute on chronic anemia Hypokalemia Hypomagnesemia Hyponatremia Sinus tachycardia Thrombocytosis UGI bleed Anemia Leg sore Hypomagnesemia Lung nodule, multiple History of lymph node dissection of axilla S/P left mastectomy Breast cancer, left breast Chief Complaint TOX CHECK - LABS wound 3 WKS - LABS - TCHP wound wound 1WK LABS TCH wound 1WK LABS TOX CHECK wound NOT FEELING WELL - LABS FLUID OVER 2 HOURS wound TOX CHECK - LABS wound 2WKS LABS TCH wound wound TOX CHECK - LABS Abdominal infxn Colitis Colitis Colitis Colitis Colitis Colitis TACHY Colitis Colitis Colitis Colitis Colitis Colitis Colitis Colitis INTRA ABDOMINAL ABSCESS INTRA ABDOMINAL ABSCESS Amb Documentation INTRA ABDOMINAL ABSCESS INTRA ABDOMINAL ABSCESS INTRA ABDOMINAL ABSCESS INTRA ABDOMINAL ABSCESS INTRA ABDOMINAL ABSCESS INTRA ABDOMINAL ABSCESS INTRA ABDOMINAL ABSCESS INTRA ABDOMINAL ABSCESS INTRA ABDOMINAL ABSCESS INTRA ABDOMINAL ABSCESS INTRA ABDOMINAL ABSCESS INTRA ABDOMINAL ABSCESS INTRA ABDOMINAL ABSCESS INTRA ABDOMINAL ABSCESS INTRA ABDOMINAL ABSCESS INTRA ABDOMINAL ABSCESS INTRA ABDOMINAL ABSCESS INTRA ABDOMINAL ABSCESS INTRA ABDOMINAL ABSCESS INTRA ABDOMINAL ABSCESS INTRA ABDOMINAL ABSCESS INTRA ABDOMINAL ABSCESS INTRA ABDOMINAL ABSCESS LEFT MASECTOMY LEFT MASECTOMY LEFT MASECTOMY LEFT MASECTOMY LEFT MASECTOMY LEFT MASECTOMY LEFT MASECTOMY LEFT MASECTOMY LEFT MASECTOMY LEFT MASECTOMY PEG TUBE CONSULT - BREAST F/U FROM [facility] hydration + electrolyte replacement L MASECTOMY 07/11 PEG TUBE DRUG THERAPY LYMPHEDEMA RISK BREAST CX/RX HERE Reason for Visit Leg sore Diarrhea due to drug Hypokalemia Lung nodule, multiple Mucositis (ulcerative) due to antineoplastic therapy Leg sore Diarrhea due to drug Hypokalemia Lung nodule, multiple Mucositis (ulcerative) due to antineoplastic therapy Encounter for chemotherapy management Leg sore Diarrhea due to drug Hypokalemia Lung nodule, multiple Braces as ambulation aid Breast cancer, left breast Hypokalemia Pyoderma gangrenosum Anemia Leg sore Hypokalemia Hypomagnesemia Lung nodule, multiple Anemia Dehydration Hypokalemia Hypomagnesemia Lung nodule, multiple CINV (chemotherapy-induced nausea and vomiting) Mucositis (ulcerative) due to antineoplastic therapy Anemia Diarrhea Hypokalemia Hypomagnesemia Lung nodule, multiple Anemia Leg sore Hypokalemia Hypomagnesemia Lung nodule, multiple Braces as ambulation aid Ulcer of right lower extremity with fat layer exposed Breast cancer, left breast Pyoderma gangrenosum Anemia Hypokalemia Hypomagnesemia Lung nodule, multiple Severe malnutrition Breast cancer, left breast Acute hypokalemia Dehydration Sepsis without acute organ dysfunction Sinus tachycardia Allergic rhinitis Debility Depression Diverticulosis Duodenal ulcer disease PEG (percutaneous endoscopic gastrostomy) status Severe malnutrition Ulcer of right lower extremity with fat layer exposed Acute on chronic anemia Abnormal LFTs Colitis Diarrhea Edema due to hypoalbuminemia Hyperglycemia Hypokalemia Hypomagnesemia Hyponatremia Intra-abdominal abscess Sinus tachycardia Thrombocytosis Debility History of lymph node dissection of axilla PEG (percutaneous endoscopic gastrostomy) status S/P left mastectomy Severe malnutrition Debility Depression Diverticulosis Duodenal ulcer disease History of lymph node dissection of axilla PEG (percutaneous endoscopic gastrostomy) status S/P left mastectomy Severe malnutrition Ulcer of right lower extremity with fat layer exposed Acute on chronic anemia Hypokalemia Hypomagnesemia Hyponatremia Sinus tachycardia Thrombocytosis UGI bleed Anemia Leg sore Hypomagnesemia Lung nodule, multiple History of lymph node dissection of axilla S/P left mastectomy Breast cancer, left breast Chief Complaint wound 1WK LABS TOX CHECK wound NOT FEELING WELL - LABS FLUID OVER 2 HOURS wound TOX CHECK - LABS wound 2WKS LABS TCH wound wound TOX CHECK - LABS Abdominal infxn Colitis Colitis Colitis Colitis Colitis Colitis TACHY Colitis Colitis Colitis Colitis Colitis Colitis Colitis Colitis INTRA ABDOMINAL ABSCESS INTRA ABDOMINAL ABSCESS Amb Documentation INTRA ABDOMINAL ABSCESS INTRA ABDOMINAL ABSCESS INTRA ABDOMINAL ABSCESS INTRA ABDOMINAL ABSCESS INTRA ABDOMINAL ABSCESS INTRA ABDOMINAL ABSCESS INTRA ABDOMINAL ABSCESS INTRA ABDOMINAL ABSCESS INTRA ABDOMINAL ABSCESS INTRA ABDOMINAL ABSCESS INTRA ABDOMINAL ABSCESS INTRA ABDOMINAL ABSCESS INTRA ABDOMINAL ABSCESS INTRA ABDOMINAL ABSCESS INTRA ABDOMINAL ABSCESS INTRA ABDOMINAL ABSCESS INTRA ABDOMINAL ABSCESS INTRA ABDOMINAL ABSCESS INTRA ABDOMINAL ABSCESS INTRA ABDOMINAL ABSCESS INTRA ABDOMINAL ABSCESS INTRA ABDOMINAL ABSCESS INTRA ABDOMINAL ABSCESS LEFT MASECTOMY LEFT MASECTOMY LEFT MASECTOMY LEFT MASECTOMY LEFT MASECTOMY LEFT MASECTOMY LEFT MASECTOMY LEFT MASECTOMY LEFT MASECTOMY LEFT MASECTOMY PEG TUBE CONSULT - BREAST F/U FROM [facility] L MASECTOMY 07/11 PEG TUBE DRUG THERAPY LYMPHEDEMA RISK BREAST CX/RX HERE 2 WKS - NO LABS - HERCEPTIN . LT BREAST LOOK FOR LYMPH NODE & CLIP IN AXILLA Reason for Visit Braces as ambulation aid Breast cancer, left breast Hypokalemia Pyoderma gangrenosum Lung nodule, multiple Anemia Leg sore Hypokalemia Hypomagnesemia Lung nodule, multiple Anemia Dehydration Hypokalemia Hypomagnesemia CINV (chemotherapy-induced nausea and vomiting) Lung nodule, multiple Mucositis (ulcerative) due to antineoplastic therapy Anemia Diarrhea Hypokalemia Hypomagnesemia Lung nodule, multiple Anemia Leg sore Hypokalemia Hypomagnesemia Braces as ambulation aid Ulcer of right lower extremity with fat layer exposed Breast cancer, left breast Pyoderma gangrenosum Lung nodule, multiple Anemia Hypokalemia Hypomagnesemia Severe malnutrition Breast cancer, left breast Acute hypokalemia Dehydration Sepsis without acute organ dysfunction Sinus tachycardia Allergic rhinitis Debility Depression Diverticulosis Duodenal ulcer disease PEG (percutaneous endoscopic gastrostomy) status Severe malnutrition Ulcer of right lower extremity with fat layer exposed Acute on chronic anemia Abnormal LFTs Colitis Diarrhea Edema due to hypoalbuminemia Hyperglycemia Hypokalemia Hypomagnesemia Hyponatremia Intra-abdominal abscess Sinus tachycardia Thrombocytosis Debility History of lymph node dissection of axilla PEG (percutaneous endoscopic gastrostomy) status S/P left mastectomy Severe malnutrition Debility Depression Diverticulosis Duodenal ulcer disease History of lymph node dissection of axilla PEG (percutaneous endoscopic gastrostomy) status S/P left mastectomy Severe malnutrition Ulcer of right lower extremity with fat layer exposed Acute on chronic anemia Hypokalemia Hypomagnesemia Hyponatremia Sinus tachycardia Thrombocytosis UGI bleed Lung nodule, multiple Anemia Leg sore Hypomagnesemia History of lymph node dissection of axilla S/P left mastectomy Breast cancer, left breast Encounter for monitoring cardiotoxic drug therapy Lung nodule, multiple History of lymph node dissection of axilla S/P left mastectomy Breast cancer, left breast Chief Complaint wound TOX CHECK - LABS wound 2WKS LABS TCH wound wound TOX CHECK - LABS Abdominal infxn Colitis Colitis Colitis Colitis Colitis Colitis TACHY Colitis Colitis Colitis Colitis Colitis Colitis Colitis Colitis INTRA ABDOMINAL ABSCESS INTRA ABDOMINAL ABSCESS Amb Documentation INTRA ABDOMINAL ABSCESS INTRA ABDOMINAL ABSCESS INTRA ABDOMINAL ABSCESS INTRA ABDOMINAL ABSCESS INTRA ABDOMINAL ABSCESS INTRA ABDOMINAL ABSCESS INTRA ABDOMINAL ABSCESS INTRA ABDOMINAL ABSCESS INTRA ABDOMINAL ABSCESS INTRA ABDOMINAL ABSCESS INTRA ABDOMINAL ABSCESS INTRA ABDOMINAL ABSCESS INTRA ABDOMINAL ABSCESS INTRA ABDOMINAL ABSCESS INTRA ABDOMINAL ABSCESS INTRA ABDOMINAL ABSCESS INTRA ABDOMINAL ABSCESS INTRA ABDOMINAL ABSCESS INTRA ABDOMINAL ABSCESS INTRA ABDOMINAL ABSCESS INTRA ABDOMINAL ABSCESS INTRA ABDOMINAL ABSCESS INTRA ABDOMINAL ABSCESS LEFT MASECTOMY LEFT MASECTOMY LEFT MASECTOMY LEFT MASECTOMY LEFT MASECTOMY LEFT MASECTOMY LEFT MASECTOMY LEFT MASECTOMY LEFT MASECTOMY LEFT MASECTOMY PEG TUBE CONSULT - BREAST F/U FROM [facility] L MASECTOMY 07/11 PEG TUBE DRUG THERAPY LYMPHEDEMA RISK BREAST CX/RX HERE 2 WKS - NO LABS - HERCEPTIN . LT BREAST LOOK FOR LYMPH NODE & CLIP IN AXILLA Reason for Visit CINV (chemotherapy-i nduced nausea and vomiting) Lung nodule, multiple Mucositis (ulcerative) due to antineoplastic therapy Anemia Diarrhea Hypokalemia Hypomagnesemia Lung nodule, multiple Anemia Leg sore Hypokalemia Hypomagnesemia Braces as ambulation aid Ulcer of right lower extremity with fat layer exposed Breast cancer, left breast Pyoderma gangrenosum Lung nodule, multiple Anemia Hypokalemia Hypomagnesemia Severe malnutrition Breast cancer, left breast Acute hypokalemia Dehydration Sepsis without acute organ dysfunction Sinus tachycardia Allergic rhinitis Debility Depression Diverticulosis Duodenal ulcer disease PEG (percutaneous endoscopic gastrostomy) status Severe malnutrition Ulcer of right lower extremity with fat layer exposed Acute on chronic anemia Abnormal LFTs Colitis Diarrhea Edema due to hypoalbuminemia Hyperglycemia Hypokalemia Hypomagnesemia Hyponatremia Intra-abdominal abscess Sinus tachycardia Thrombocytosis Debility History of lymph node dissection of axilla PEG (percutaneous endoscopic gastrostomy) status S/P left mastectomy Severe malnutrition Debility Depression Diverticulosis Duodenal ulcer disease History of lymph node dissection of axilla PEG (percutaneous endoscopic gastrostomy) status S/P left mastectomy Severe malnutrition Ulcer of right lower extremity with fat layer exposed Acute on chronic anemia Hypokalemia Hypomagnesemia Hyponatremia Sinus tachycardia Thrombocytosis UGI bleed Lung nodule, multiple Anemia Leg sore Hypomagnesemia History of lymph node dissection of axilla S/P left mastectomy Breast cancer, left breast Encounter for monitoring cardiotoxic drug therapy Lung nodule, multiple History of lymph node dissection of axilla S/P left mastectomy Breast cancer, left breast Chief Complaint CONSULT - BREAST F/U FROM [facility] L MASECTOMY 07/11 PEG TUBE DRUG THERAPY 2 WKS - NO LABS - HERCEPTIN LT BREAST LOOK FOR LYMPH NODE & CLIP IN AXILLA 3WKS LABS HERCEPTIN Check healing LYMPHEDEMA RISK BREAST CX/RX HERE OTV 3WKS LABS HERCEPTIN OTV OTV OTV 3 WKS - LABS - HERZUMA OTV 3WKS LABS HERZUMA 3 week f/u post 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 Reason for Visit Lung nodule, multipl e Anemia Leg sore Hypomagnesemia History of lymph node dissection of axilla S/P left mastectomy Breast cancer, left breast Encounter for monitoring cardiotoxic drug therapy Lung nodule, multiple History of lymph node dissection of axilla S/P left mastectomy Breast cancer, left breast Encounter for monitoring cardiotoxic drug therapy Lung nodule, multiple Breast cancer, left breast Breast cancer, left breast Encounter for monitoring cardiotoxic drug therapy Lung nodule, multiple Breast cancer, left breast Breast cancer, left breast Breast cancer, left breast Encounter for monitoring cardiotoxic drug therapy Lung nodule, multiple Breast cancer, left breast Encounter for monitoring cardiotoxic drug therapy Lung nodule, multiple Breast cancer, left breast Chief Complaint 2 WKS - NO LABS - HE RCEPTIN LT BREAST LOOK FOR LYMPH NODE & CLIP IN AXILLA 3WKS LABS HERCEPTIN Check healing LYMPHEDEMA RISK BREAST CX/RX HERE OTV 3WKS LABS HERCEPTIN OTV OTV OTV 3 WKS - LABS - HERZUMA OTV 3WKS LABS HERZUMA 3 week f/u 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 THERAPY 2WKS LABS TX SANTOYO BREAST CANCER Reason for Visit Encounter for monito ring cardiotoxic drug therapy Breast cancer Lung nodule, multiple History of lymph node dissection of axilla S/P left mastectomy Breast cancer, left breast Encounter for monitoring cardiotoxic drug therapy Breast cancer Lung nodule, multiple Breast cancer, left breast Breast cancer, left breast Encounter for monitoring cardiotoxic drug therapy Breast cancer Lung nodule, multiple Breast cancer, left breast Breast cancer, left breast Breast cancer, left breast Encounter for monitoring cardiotoxic drug therapy Breast cancer Lung nodule, multiple Breast cancer, left breast Encounter for monitoring cardiotoxic drug therapy Breast cancer Lung nodule, multiple Breast cancer, left breast Breast cancer Chief Complaint LT BREAST LOOK FOR L YMPH NODE & CLIP IN AXILLA 3WKS LABS HERCEPTIN Check healing LYMPHEDEMA RISK BREAST CX/RX HERE OTV 3WKS LABS HERCEPTIN OTV OTV OTV 3 WKS - LABS - HERZUMA OTV 3WKS LABS HERZUMA 3 week f/u 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 THERAPY 2WKS LABS TX S[facility]O BREAST CANCER PEG TUBE REMOVAL Reason for Visit History of lymph nod e dissection of axilla S/P left mastectomy Breast cancer, left breast Encounter for monitoring cardiotoxic drug therapy Breast cancer Lung nodule, multiple Breast cancer, left breast Breast cancer, left breast Encounter for monitoring cardiotoxic drug therapy Breast cancer Lung nodule, multiple Breast cancer, left breast Breast cancer, left breast Breast cancer, left breast Encounter for monitoring cardiotoxic drug therapy Breast cancer Lung nodule, multiple Breast cancer, left breast Encounter for monitoring cardiotoxic drug therapy Breast cancer Lung nodule, multiple Breast cancer, left breast Breast cancer Breast cancer Chief Complaint OTV OTV 3 WKS - LABS - HERZUMA OTV 3WKS LABS HERZUMA 3 week f/u post RT CUSTODIAL DRUG THERAPY 2WKS LABS TX BREAST CANCER PEG TUBE REMOVAL 3WKS LABS TX 3 WKS - LABS - HERCEPTIN SCREENING RIGHT BREAST ONLY 3WKS LABS HERCEPTIN SANTOYO Reason for Visit Breast cancer, left breast Breast cancer, left breast Encounter for monitoring cardiotoxic drug therapy Breast cancer Lung nodule, multiple Breast cancer, left breast Encounter for monitoring cardiotoxic drug therapy Breast cancer Lung nodule, multiple Breast cancer, left breast Breast cancer Breast cancer Breast cancer Encounter for monitoring cardiotoxic drug therapy Breast cancer Breast cancer Chief Complaint OTV 3 WKS - LABS - HERZUMA OTV 3WKS LABS HERZUMA 3 week f/u 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 THERAPY 2WKS LABS TX BREAST CANCER PEG TUBE REMOVAL 3WKS LABS TX 3 WKS - LABS - HERCEPTIN SCREENING RIGHT BREAST ONLY 3WKS LABS HERCEPTIN SANTOYO wound Reason for Visit Breast cancer, left breast Encounter for monitoring cardiotoxic drug therapy Breast cancer Lung nodule, multiple Breast cancer, left breast Encounter for monitoring cardiotoxic drug therapy Breast cancer Lung nodule, multiple Breast cancer, left breast Breast cancer Breast cancer Breast cancer Encounter for monitoring cardiotoxic drug therapy Breast cancer Breast cancer Chief Complaint OTV 3WKS LABS HERZUMA 3 week f/u 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 THERAPY 2WKS LABS TX BREAST CANCER PEG TUBE REMOVAL 3WKS LABS TX 3 WKS - LABS - HERCEPTIN SCREENING RIGHT BREAST ONLY 3WKS LABS HERCEPTIN SANTOYO wound wound wound Reason for Visit Breast cancer, left breast Encounter for monitoring cardiotoxic drug therapy Breast cancer Lung nodule, multiple Breast cancer, left breast Breast cancer Breast cancer Breast cancer Encounter for monitoring cardiotoxic drug therapy Breast cancer Breast cancer Braces as ambulation aid Ulcer of right lower extremity with fat layer exposed Chief Complaint 3WKS LABS HERZUMA 3 week f/u post RT CUSTODIAL DRUG THERAPY 2WKS LABS TX BREAST CANCER PEG TUBE REMOVAL 3WKS LABS TX 3 WKS - LABS - HERCEPTIN SCREENING RIGHT BREAST ONLY 3WKS LABS HERCEPTIN wound wound wound wound 3WKS LABS HERCEPTIN 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 Reason for Visit Encounter for monito ring cardiotoxic drug therapy Breast cancer Lung nodule, multiple Breast cancer, left breast Breast cancer Breast cancer Breast cancer Encounter for monitoring cardiotoxic drug therapy Breast cancer Breast cancer Braces as ambulation aid Ulcer of right lower extremity with fat layer exposed Braces as ambulation aid Ulcer of right lower extremity with fat layer exposed Encounter for monitoring cardiotoxic drug therapy Breast cancer Chief Complaint 3WKS NO LABS HERCEPT IN 3WKS LABS HERCEPTEN 3 WKS -LABS - HERCEPTIN PORT FLUSH/CHEMO ED SANTOYO FALL Reason for Visit Breast cancer Encounter for monitoring cardiotoxic drug therapy Hot flashes due to tamoxifen Breast cancer Breast cancer Encounter for education Breast cancer Chief Complaint Admit Date 3 MO - LABS July 21, 2024 3:06pm CERVICALGIA/DRY NEEDLE RX HERE August 3:30pm Age-related osteoporosis W/O current pat h FRACTURE October 09, 2024 3:34pm SANTOYO October 14, 2024 2:30p m Reason for Visit Admit Date Breast cancer July 21, 2024 3:06pm Chief Complaint Admit Date 3 MO - LABS July 21, 2024 3:06pm CERVICALGIA/DRY NEEDLE RX HERE August 3:30pm Age-related osteoporosis W/O current pat h FRACTURE October 09, 2024 3:34pm SANTOYO October 27, 2024 10:15 am 4MO LABS ZOMETA October 27, 2024 10:17 am Reason for Visit Admit Date Breast cancer July 21, 2024 3:06pm Breast cancer October 27, 2024 10:17 am Additional Source Comments INFORMATION SOURCE (unrecogn ized section and content) DATE CREATED AUTHOR 07/24/2019 [facility] Daniela Evans DATE CREATED AUTHOR AUTHOR'S ORGANIZ ATION 01/25/2022 [facility] DATE CREATED AUTHOR AUTHOR'S ORGANIZ ATION 12/21/2024 [facility] Goals (unrecognized section and content) Goals may be documented in a n alternate sectionGoals may be documented in an alternate sectionGoals may be documented in an alternate sectionGoals may be documented in an alternate sectionGoals may be documented in an alternate sectionGoals may be documented in an alternate sectionGoals may be documented in an alternate sectionGoals may be documented in an alternate sectionGoals may be documented in an alternate sectionGoals may be documented in an alternate sectionGoals may be documented in an alternate sectionGoals may be documented in an alternate sectionGoals may be documented in an alternate section Source Comments (unrecognize d section and content) In the event this informatio n is protected by the Federal Confidentiality of Alcohol and Drug Abuse Patient Records regulations: The Federal rules restrict any use of the information to criminally investigate or prosecute any alcohol or drug abuse patient.[facility] Reason for Visit (unrecogniz ed section and content) Reason Comments New Patient Care Teams (unrecognized sec tion and content) Direct Support Staff Member Relationship Specialty Start Date End Date Danielle Chopra MD PCP - General 12/03/07 Team Status: Active Member Role Status Dates [facility] Family Provider Active Dr. Jam Verde MD Primary Care Provider Active Team Status: Inactive Member Role Status Dates Dr. Jam Verde MD Primary Care Provider, Referring P rovider Active Chelsea Hernandez NP, DIRECTOR RECREATION-C Attending Provider Active Team Status: Inactive Member Role Status Dates Dr. Jam Verde MD Primary Care Provider, Referring P rovider Active Dr. Theodore Perez MD Attending Provider Active Team Status: Inactive Member Role Status Dates Dr. Jam Verde MD Primary Care Provider, Referring P rovider Active Chelsea Hernandez NP, DIRECTOR RECREATION-C Active Dr. Theodore Perez MD Attending Provider Active Team Status: Active Member Role Status Dates Dr. Jam Verde MD Primary Care Provider Active Dr. Malik Gómez MD Attending Provider Active Team Status: Active Member Role Status Dates Dr. Jam Verde MD Primary Care Provider Active Kathrin Calzada DIRECTOR RECREATION, DIRECTOR RECREATION-C Attending Pro vider, Referring Provider, Other Provider Active Team Status: Active Member Role Status Dates Dr. Jam Verde MD Primary Care Provider Active Dr. Quentin Martínez MD Emergency Provider Active Dr. Ernestina Rene MD Admit Provider, [facility], Other Provider Active Dr. Samantha Osorio MD Other Provider Active Team Status: Active Member Role Status Dates Dr. Jam Verde MD Primary Care Provider Active Dr. Jonatan Michel MD Attending Provider Active Team Status: Active Member Role Status Dates Dr. Jam Verde MD Primary Care Provider Active Dr. Quentin Martínez MD Emergency Provider Active Dr. Ernestina Rene MD [facility], Other Provider Active Dr. Samantha Osorio MD Other Provider Active Dr. Renzo Hayden MD Other Provider Active Dr. Carlyle Sparks MD Other Provider Active Dr. Theodore Perez MD Other Provider Active Dr. Reed Mcgrath MD Other Provider Active Dr. Kiko Kiran MD Other Provider Active Dr. Franki Laguerre MD Other Provider Active Dr. Klaus Cartagena DO Other Provider Active Chelsea Hernandez DIRECTOR RECREATION, DIRECTOR RECREATION-C Other Provider Active Team Status: Active Member Role Status Dates Dr. Jam Verde MD Primary Care Provider Active Dr. Quentin Martínez MD Emergency Provider Active Dr. Ernestina Rene MD Ad[facility] Provider, [facility], Other Provider Active Dr. Samantha Osorio MD Other Provider Active Dr. Renzo Hayden MD Other Provider Active Dr. Carlyle Sparks MD Other Provider Active Dr. Theodore Perez MD Other Provider Active Dr. Reed Mcgrath MD Other Provider Active Dr. Kiko Kiran MD Other Provider Active Dr. Franki Laguerre MD Other Provider Active Dr. Klaus Cartagena DO Other Provider Active Chelsea Hernandez DIRECTOR RECREATION, DIRECTOR RECREATION-C Other Provider Active Dr. Nicole Davis MD Active Team Status: Active Member Role Status Dates Dr. Jam Verde MD Primary Care Provider, Referring P rovider Active Dr. Quentin Martínez MD Emergency Provider Active Dr. Ernestina Rene MD Admit Provider, Other Provider A ctive Dr. Samantha Osorio MD Other Provider Active Dr. Renzo Hayden MD Other Provider Active Dr. Carlyle Sparks MD Other Provider Active Dr. Theodore Perez MD Other Provider Active Dr. Reed Mcgrath MD Other Provider Active Dr. Kiko Kiran MD Other Provider Active Dr. Franki Laguerre MD Other Provider Active Dr. Klaus Cartagena , Other Provider Active Chelseafrancheska Hernandez DIRECTOR RECREATION, DIRECTOR RECREATION-C Attending Provider, Other Prov ider Active Dr. Reed Rodarte MD Other Provider Active Team Status: Active Member Role Status Dates Dr. Jam Verde MD Primary Care Provider Active Dr. Quentin Martínez MD Emergency Provider Active Dr. Ernestina Rene MD Admit Provider, Other Provider A ctive Dr. Samantha Osorio MD Other Provider Active Dr. Renzo Hayden MD Other Provider Active Dr. Carlyle Sparks MD Other Provider Active Dr. Theodore Perez MD Other Provider Active Dr. Reed Mcgrath MD Other Provider Active Dr. Kiko Kiran MD Other Provider Active Dr. Franki Laguerre MD Other Provider Active Dr. Klaus Cartagena , Other Provider Active Chelsea Hernandez DIRECTOR RECREATION, DIRECTOR RECREATION-C Other Provider Active Dr. Reed Rodarte MD Other Provider Active Lisa Cerrato PA, PA-C Attending Provider Active Team Status: Active Member Role Status Dates Dr. Jam Verde MD Primary Care Provider Active Dr. Quentin Martínez MD Emergency Provider Active Dr. Ernestina Rene MD Admit Provider, Re ferring Provider, Other Provider Active Dr. Samantha Osorio MD Attending Provider, Other Pro vider Active Dr. Renzo Hayden MD Other Provider Active Dr. Carlyle Sparks MD Other Provider Active Dr. Theodore Perez MD Other Provider Active Dr. Reed Mcgrath MD Other Provider Active Dr. Kiko Kiran MD Other Provider Active Dr. Franki Laguerre MD Other Provider Active Dr. Klaus Cartagena DO Other Provider Active Chelsea Hernandez DIRECTOR RECREATION, DIRECTOR RECREATION-C Other Provider Active Dr. Reed Rodarte MD Other Provider Active Team Status: Active Member Role Status Dates Dr. Jam Verde MD Primary Care Provider Active Dr. Quentin Martínez MD Emergency Provider Active Dr. Ernestina Rene MD Admit Provider, At tending Provider, Other Provider Active Dr. Samantha Osorio MD Other Provider Active Dr. Reed Rodarte MD Other Provider Active Dr. Tapan Bryant MD Other Provider Active Dr. John Griffin , Other Provider Active Dr. Abebe Paiz MD Other Provider Active Dr. Devin Zabala MD Other Provider Active Mayra Morley DIRECTOR RECREATION, DIRECTOR RECREATION-C Other Provider Active Dr. Renzo Hayden MD Other Provider Active Dr. Carlyle Sparks MD Other Provider Active Dr. Theodore Perez MD Other Provider Active Dr. Reed Mcgrath MD Other Provider Active Dr. Kiko Kiran MD Other Provider Active Dr. Franki Laguerre MD Other Provider Active Dr. Klaus Cartagena , Other Provider Active Chelsea Hernandez DIRECTOR RECREATION, DIRECTOR RECREATION-C Other Provider Active Team Status: Active Member Role Status Dates Dr. Jam Verde MD Primary Care Provider Active Dr. Quentin Martínez MD Emergency Provider Active Dr. Ernestina Rene MD Admit Provider, Other Provider A ctive Dr. Samantha Osorio MD Attending Provider, Other Pro vider Active Dr. Reed Rodarte MD Other Provider Active Dr. Tapan Bryant MD Other Provider Active Dr. John Griffin DO Other Provider Active Dr. Abebe aPiz MD Other Provider Active Dr. Devin Zabala MD Other Provider Active Mayra Morley NP, DIRECTOR RECREATION-C Other Provider Active Dr. Renzo Hayden MD Other Provider Active Dr. Carlyle Sparks MD Other Provider Active Dr. Theodore Perez MD Other Provider Active Dr. Reed Mcgrath MD Other Provider Active Dr. Kiko Kiran MD Other Provider Active Dr. Franki Laguerre MD Other Provider Active Dr. Klaus Cartagena DO Other Provider Active Chelsea Hernandez DIRECTOR RECREATION, DIRECTOR RECREATION-C Other Provider Active Team Status: Active Member Role Status Dates Dr. Jam Verde MD Primary Care Provider Active Dr. Quentin Martínez MD Emergency Provider Active Dr. Ernestina Rene MD Admit Provider, Re ferring Provider, Other Provider Active Dr. Samantha Osorio MD Other Provider Active Dr. Reed Rodarte MD Other Provider Active Dr. Tapan Bryant MD Other Provider Active Dr. John Griffin , Attending Provider, Other Provide r Active Dr. Abebe Paiz MD Other Provider Active Dr. Devin Zabala MD Other Provider Active Mayra Morley DIRECTOR RECREATION, DIRECTOR RECREATION-C Other Provider Active Dr. Renzo Hayden MD Other Provider Active Dr. Carlyle Sparks MD Other Provider Active Dr. Theodore Perez MD Other Provider Active Dr. Reed Mcgrath MD Other Provider Active Dr. Kiko Kiran MD Other Provider Active Dr. Franki Laguerre MD Other Provider Active Dr. Klaus Cartagena DO Other Provider Active Chelsea Hernandez DIRECTOR RECREATION, DIRECTOR RECREATION-C Other Provider Active Team Status: Active Member Role Status Dates Dr. Jam Verde MD Primary Care Provider Active Dr. Quentin Martínez MD Emergency Provider Active Dr. Ernestina Rene MD Admit Provider, Other Provider A ctive Dr. Samantha Osorio MD Other Provider Active Dr. Reed Rodarte MD Other Provider Active Dr. Tapan Bryant MD Other Provider Active Dr. John Griffin DO Other Provider Active Dr. Abebe Paiz MD Other Provider Active Dr. Devin Zabala MD Other Provider Active Mayra Morley DIRECTOR RECREATION, DIRECTOR RECREATION-C Other Provider Active Dr. Renzo Hayden MD Other Provider Active Dr. Carlyle Sparks MD Other Provider Active Dr. Theodore Perez MD Other Provider Active Dr. Reed Mcgrath MD Other Provider Active Dr. Kiko Kiran MD Other Provider Active Dr. Franki Laguerre MD Other Provider Active Dr. Klaus Cartagena DO Other Provider Active Chelsea Hernandez DIRECTOR RECREATION, DIRECTOR RECREATION-C Other Provider Active Dr. Pan Garrett MD Attending Provider Active Team Status: Active Member Role Status Dates Dr. Jam Verde MD Primary Care Provider Active Chelsea Hernandez DIRECTOR RECREATION, DIRECTOR RECREATION-C Attending Provider Active Team Status: Active Member Role Status Dates Dr. Jam Verde MD Primary Care Provider Active Dr. Edilberto Ritter MD Admit Provider, Other Provider A ctive Dr. Reed Rodarte MD Other Provider Active Dr. Anabela Disla DO Attending Provider Act soni Team Status: Active Member Role Status Dates Dr. Jam Verde MD Primary Care Provider Active Dr. Reed Ramirez MD Attending Provider Active Dr. Anabela Disla DO Referring Provider Act soni Team Status: Active Member Role Status Dates Dr. Jam Verde MD Primary Care Provider Active Dr. Edilberto Ritter MD Admit Provider, Other Provider A ctive Dr. Reed Rodarte MD Other Provider Active Dr. Anabela Disla DO Attending Provider, Ot her Provider Active Team Status: Active Member Role Status Dates Dr. Jam Verde MD Primary Care Provider Active Dr. Edilberto Ritter MD Admit Provider, Other Provider A ctive Dr. Reed Rodarte MD Other Provider Active Dr. Anabela Disla , DO Other Provider Active Dr. Parth Byrd , DO Attending Provider Active Team Status: Active Member Role Status Dates Dr. Jam Verde MD Primary Care Provider Active Dr. Parth Byrd , Attending Provider Active Team Status: Active Member Role Status Dates Dr. Jam Verde MD Primary Care Provider Active Dr. Edilberto Ritter MD Admit Provider, Other Provider A ctive Dr. Reed Rodarte MD Other Provider Active Dr. Anabela Disla , Other Provider Active Dr. Samantha Osorio MD Attending Provider Active Team Status: Active Member Role Status Dates Dr. Jam Verde MD Primary Care Provider Active Dr. Edilberto Ritter MD Admit Provider, Other Provider A ctive Dr. Reed Rodarte MD Other Provider Active Dr. Anabela Disla , Attending Provider, Ot her Provider Active Dr. Renzo Hayden MD Other Provider Active Dr. Carlyle Sparks MD Other Provider Active Dr. Theodore Perez MD Other Provider Active Dr. Reed Mcgrath MD Other Provider Active Dr. Kiko Kiran MD Other Provider Active Dr. Franki Laguerre MD Other Provider Active Dr. Klaus Cartagena DO Other Provider Active Chelsea Hernandez NP, DIRECTOR RECREATION-C Other Provider Active Team Status: Active Member Role Status Dr. Jam Verde MD Primary Care Provider Active Dr. Edilberto Ritter MD Admit Provider, Other Provider A ctive Dr. Reed Rodarte MD Other Provider Active Dr. Anabela Disla DO Referring Provider, Ot her Provider Active Dr. Renzo Hayden MD Other Provider Active Dr. Carlyle Sparks MD Other Provider Active Dr. Theodore Perez MD Other Provider Active Dr. Reed Mcgrath MD Other Provider Active Dr. Kiko Kiran MD Other Provider Active Dr. Franki Laguerre MD Other Provider Active Dr. Klaus Cartagena , Other Provider Active Chelsea Hernandez DIRECTOR RECREATION, DIRECTOR RECREATION-C Attending Provider, Other Prov ider Active Team Status: Active Member Role Status Dates Dr. Jam Verde MD Primary Care Provider Active Dr. Jace Fulton MD Attending Provider Active Dr. Nicole Davis MD Referring Provider Active Team Status: Active Member Role Status Dates Dr. Jam Verde MD Primary Care Provider Active Dr. Samantha Osorio MD Attending Provi jayme, Referring Provider, Other Provider Active Team Status: Active Member Role Status Dates Dr. Jam Verde MD Primary Care Provider Active Dr. Samantha Osorio MD Admit Provider, Attending Provider, Referring Provider, Other Provider Active Team Status: Active Member Role Status Dates Dr. Jam Verde MD Primary Care Provider Active Dr. Theodore Perez MD Attending Provider, Referrin g Provider Active Chelsea Hernandez DIRECTOR RECREATION, DIRECTOR RECREATION-C Other Provider Active Team Status: Inactive Member Role Status Dates Dr. Jam Verde MD Primary Care Provider Active Dr. Karlie Whittington MD Attending Provider Active Team Status: Inactive Member Role Status Dates Dr. Jam Verde MD Primary Care Provider Active Dr. Eran Hastings DO Attending Provider, Emergency Pro vider Active Team Status: Inactive Member Role Status Dates Dr. Jam Verde MD Primary Care Provider Active Dr. Jace Ashton MD Attending Provider, Emergency Pr ovider Active Team Status: Inactive Member Role Status Dates Dr. Jam Verde MD Primary Care Provider Active Kathrin Calzada DIRECTOR RECREATION, DIRECTOR RECREATION-C Attending Provider Active Team Status: Inactive Member Role Status Dates Dr. Jam Verde MD Primary Care Provider Active Chelsea Mary DIRECTOR RECREATION, DIRECTOR RECREATION-C Attending Provider Active Team Status: Inactive Member Role Status Dates Dr. Jam Verde MD Primary Care Provider Active Dr. Quentin Martínez MD Emergency Provider Active Dr. Ernestina Rene MD Admit Provider, Attending Provid er Active Dr. Samantha Osorio MD Other Provider Active Dr. Reed Rodarte MD Other Provider Active Dr. Tapan Bryant MD Other Provider Active Dr. John Griffin , Other Provider Active Dr. Abebe Paiz MD Other Provider Active Dr. Devin Zabala MD Other Provider Active Mayra Morley DIRECTOR RECREATION, DIRECTOR RECREATION-C Other Provider Active Dr. Renzo Hayden MD Other Provider Active Dr. Carlyle Sparks MD Other Provider Active Dr. Theodore Perez MD Other Provider Active Dr. Reed Mcgrath MD Other Provider Active Dr. Kiko Kiran MD Other Provider Active Dr. Franki Laguerre MD Other Provider Active Dr. Klaus Cartagena , Other Provider Active Chelsea Hernandez DIRECTOR RECREATION, DIRECTOR RECREATION-C Other Provider Active Team Status: Inactive Member Role Status Dates Dr. Jam Verde MD Primary Care Provider Active Dr. Edilberto Ritter MD Admit Provider, Other Provider A ctive Dr. Reed Rodarte MD Other Provider Active Dr. Anabela Disla DO Attending Provider Act soni Dr. Renzo Hayden MD Other Provider Active Dr. Carlyle Sparks MD Other Provider Active Dr. Theodore Perez MD Other Provider Active Dr. Reed Mcgrath MD Other Provider Active Dr. Kiko Kiran MD Other Provider Active Dr. Franki Laguerre MD Other Provider Active Dr. Klaus Cartagena DO Other Provider Active Chelsea Hernandez DIRECTOR RECREATION, DIRECTOR RECREATION-C Other Provider Active Team Status: Inactive Member Role Status Dates Dr. Jam Verde MD Primary Care Provider Active Dr. Samantha Osorio MD Admit Provider, Attending Provider, Referring Provider Active Team Status: Active Member Role Status Dates Dr. Jam Verde MD Primary Care Provider Active Dr. Anabela Disla DO Admit Pr ovider, Attending Provider, Other Provider Active Team Status: Active Member Role Status Dates Dr. Jam Verde MD Primary Care Provider Active Dr. Anabela Disla DO Admit Provider, Other Provider Active Dr. Samantha Osorio MD Attending Provider Active Team Status: Inactive Member Role Status Dates Dr. Jam Verde MD Primary Care Provider Active Dr. Anabela Disla DO Admit Provider, Attend ing Provider Active Team Status: Inactive Member Role Status Dates Dr. Jam Verde MD Primary Care Provide r, Attending Provider, Referring Provider Active Chelsea Hernandez DIRECTOR RECREATION, DIRECTOR RECREATION-C Other Provider Active Dr. Anabela Disla DO Other Provider Active Dr. Samantha Osorio MD Other Provider Active Team Status: Active Member Role Status Dates Dr. Jam Verde MD Primary Care Provider Active Dr. Theodore Perez MD Attending Provider Active Team Status: Active Member Role Status Dates Dr. Jam Verde MD Primary Care Provider Active Dr. Edilberto Ritter MD Admit Provider, Other Provider A ctive Dr. Reed Rodarte MD Other Provider Active Dr. Anabela Disla DO Referring Provider, Ot her Provider Active Dr. Samantha Osorio MD Attending Provider Active Team Status: Inactive Member Role Status Dates Dr. Jam Verde MD Primary Care Provider, Referring P rovider Active Dr. Samantha Osorio MD Attending Provider Active Team Status: Inactive Member Role Status Dates Dr. Jam Verde MD Primary Care Provider, Referring P rovider Active Dr. Klaus Cartagena DO Attending Provider Active Team Status: Inactive Member Role Status Dates Dr. Jam Verde MD Primary Care Provider Active Dr. Theodore Perez MD Attending Provider Active Team Status: Active Member Role Status Dates Dr. Jam Verde MD Primary Care Provider Active Dr. Klaus Cartagena DO Attending Provider, Referring P rovider Active Team Status: Active Member Role Status Dates Dr. Jam Verde MD Primary Care Provider Active Dr. Theodore Perez MD Attending Provider, Referrin g Provider Active Chelsea Hernandez DIRECTOR RECREATION, DIRECTOR RECREATION-C Other Provider Active Dr. Klaus Cartagena DO Active Team Status: Active Member Role Status Dates Dr. Jam Verde MD Primary Care Provider Active Dr. Samantha Osorio MD Attending Provider Active Team Status: Inactive Member Role Status Dates Dr. Jam Verde MD Primary Care Provider Active Dr. Samantha Osorio MD Attending Provider, Referring Provider Active Team Status: Inactive Member Role Status Dates Dr. Jam Verde MD Primary Care Provider Active Dr. Samantha Osorio MD Attending Provider Active Team Status: Inactive Member Role Status Dates Dr. Jam Verde MD Primary Care Provider Active Dr. Renzo Hayden MD Active Dr. Klaus Cartagena DO Attending Provider, Referring P rovider Active Team Status: Active Member Role Status Dates Dr. Jam Verde MD Primary Care Provider Active Dr. Klaus Cartagena DO Attending Provider, Referring P rovider Active Dr. Renzo Hayden MD Active Team Status: Inactive Member Role Status Dates Dr. Jam Verde MD Primary Care Provider Active Dr. Klaus Cartagena DO Attending Provider, Referring P rovider Active Team Status: Inactive Member Role Status Dates Dr. Jam Verde MD Primary Care Provider Active Chelsea Hernandez DIRECTOR RECREATION, DIRECTOR RECREATION-C Attending Provider, Referring Provider Active Team Status: Active Member Role Status Dates Dr. Jam Verde MD Primary Care Provider Active Dr. Malik Gómez MD Attending Provider Active Chelseafrancheska Hernandez DIRECTOR RECREATION, DIRECTOR RECREATION-C Referring Provider Active Team Status: Active Member Role Status Dates Dr. Jam Verde MD Primary Care Provider Active Dr. Theodore Perez MD Attending Provider, Referrin g Provider Active Team Status: Inactive Member Role Status Dates Dr. Jam Verde MD Primary Care Provider Active Dr. Theodore Perez MD Attending Provider, Referrin g Provider Active Team Status: Inactive Member Role Status Dates Dr. Jam Verde MD Primary Care Provider, Referring P rovider Active Kathrin Calzada DIRECTOR RECREATION, DIRECTOR RECREATION-C Attending Provider Active Team Status: Active Member Role Status Dates Dr. Jam Verde MD Primary Care Provider, Referring P rovider Active Kathrin Calzada DIRECTOR RECREATION, DIRECTOR RECREATION-C Attending Provider, Other P rovider Active Team Status: Inactive Member Role Status Dates Dr. Theodore Perez MD Attending Provider, Referrin g Provider Active Dr. Jam Verde MD Primary Care Provider Active Team Status: Inactive Member Role Status Dates Dr. Jam Verde MD Primary Care Provider Active Ira Gilbert NP-C Attending Provider Active Team Status: Inactive Member Role Status Dates Dr. Jam Verde MD Primary Care Provider Active Lito Nguyen MD Emergency Provider Active Team Status: Active Member Role Status Dates Dr. Jam Verde MD Primary Care Provider Active Team Status: Inactive Member Role Status Dates Dr. Jam Verde MD Primary Care Provider Active Start: July 21, 2024 End: July 21, 2024 Dr. Jam Verde MD Referring Provider Active St art: July 21, 2024 End: July 21, 2024 Chelsea Hernandez DIRECTOR RECREATION, DIRECTOR RECREATION-C Attending Provider Active Start: July 21, 2024 End: July 21, 2024 Team Status: Active Member Role Status Dates Dr. Jam Verde MD Primary Care Provider Active Start: September 12, 2024 Dr. Jam Verde MD Attending Provider Active St art: September 12, 2024 Dr. Jam Verde MD Referring Provider Active St art: September 12, 2024 Team Status: Inactive Member Role Status Dates Dr. Jam Verde MD Primary Care Provider Active Start: October 09, 2024 End: October 09, 2024 Dr. Jam Verde MD Attending Provider Active St art: October 09, 2024 End: October 09, 2024 Dr. Jam Verde MD Referring Provider Active St art: October 09, 2024 End: October 09, 2024 Team Status: Active Member Role Status Dates Dr. Jam Verde MD Primary Care Provider Active Start: October 14, 2024 Dr. Theodore Perez MD Attending Provider Active Start: October 14, 2024 Dr. Theodore Perez MD Referring Provider Active Start: October 14, 2024 Chelsea Hernandez DIRECTOR RECREATION, DIRECTOR RECREATION-C Other Provider Active St art: October 14, 2024 Team Status: Active Member Role Status Dates Dr. Jam Verde MD Primary Care Provider Active Start: October 27, 2024 Dr. Theodore Perez MD Attending Provider Active Start: October 27, 2024 Dr. Theodore Perez MD Referring Provider Active Start: October 27, 2024 Chelsea Hernandez DIRECTOR RECREATION, DIRECTOR RECREATION-C Other Provider Active St art: October 27, 2024 Team Status: Inactive Member Role Status Dates Dr. Jam Verde MD Primary Care Provider Active Start: October 27, 2024 End: October 27, 2024 Dr. Jam Verde MD Referring Provider Active St art: October 27, 2024 End: October 27, 2024 Dr. Theodore Perez MD Attending Provider Active Start: October 27, 2024 End: October 27, 2024 FOR RECORDS PERTAINING TO PATIENTS WHO ARE [...] BE BASED ON THE PRIMARY CLINICAL RECORDS. [employer] provides no warranty or guarantee of the accuracy or completeness of information in this document.
[2024-12-21 22:17] VITALS: O2SAT 100
--- NOTE | 2024-12-21 22:17 | EKG12_ITS ---
Test Reason : CP Blood Pressure : */* mmHG Vent. Rate : 91 BPM Atrial Rate : 91 BPM P-R Int : 150 ms QRS Dur : 70 ms QT Int : 370 ms P-R-T Axes : 74 55 71 degrees QTcB Int : 455 ms Normal sinus rhythm Normal ECG Confirmed by RONEL WASHINGTON, ERNESTINE ([id number]), photo editor CHRISTINA RATLIFF ([id number]) on 12/22/2024 1:03:45 PM Referred By: BB Confirmed By: ERNESTINE RODNEY MD
--- NOTE | 2024-12-21 22:17 | ED.VIS.CHEST ---
HPI History of Present Illness Chief Complaint: Chest Pain Informant: patient and spouse/S.O. Narrative Narrative: 44-year-old female presenting with left-sided chest discomfort. She has muscular dystrophy, and when she drives she uses hand controls. She did a long drive last week and a day after she got back, her left shoulder was bothering her more than usual which often happens after she goes on drives because of how much she has to use her arms and hands. She states it was hurting into her periscapular/rhomboid area on the left as well which is common for her, but it also came into her left upper lateral chest which is unusual for her. It does not hurt worse to move, but neither does her back. Her shoulder does. She has had some occasional palpitations since prior to this, very brief and unusual, maybe that has happened once in the past week, but nothing unusual. No syncope or near syncope. She denies any nausea, vomiting, dyspnea, diaphoresis that is unexplained, or other systemic symptoms. It gets better when she takes ibuprofen for her back and shoulder. No history of heart problems that she knows of. She had an echocardiogram once in relation to getting medications for breast cancer, and as a result did not have to follow-up with a counterintelligence agent but does not know the results. The pain does not get worse with movement, and there is no discomfort when taking deep breaths. [facility] Medical History Neck pain on right side Imbalance Allergy Hot flashes due to tamoxifen Wears glasses Open wound Uses wheelchair Osteoporosis History of renal disease Anemia Blackout Gastric reflux PEG (percutaneous endoscopic gastrostomy) adjustment/replacement/removal Cardiology follow-up encounter Muscular dystrophy Encounter for monitoring cardiotoxic drug therapy Vitamin D deficiency Muscular dystrophy Nausea Phlegmonous peritonitis Localized peritonitis Sepsis without acute organ dysfunction Mucositis (ulcerative) due to antineoplastic therapy Diarrhea Dehydration Encounter for chemotherapy management Thrombocytosis Anemia Thrombocytosis Hypomagnesemia Leg sore Mucositis (ulcerative) due to antineoplastic therapy Oral candidiasis Lung nodule, multiple Hypokalemia Diarrhea due to drug CINV (chemotherapy-induced nausea and vomiting) Encounter for education Port-A-Cath in place Braces as ambulation aid Depression Anxiety Alcohol use Arthritis History of diverticulitis Heartburn Non-smoker CPAP (continuous positive airway pressure) dependence History of edema History of irregular heartbeat History of echocardiogram Elevated C-reactive protein (CRP) (12/26/21) Breast cancer, left breast Breast cancer Arthrogryposis Home Medications ?Medication ?Instructions ?Recorded ?Last Taken ?Type ascorbic acid (vitamin C) 500 mg 500 mg PO BIDCM supplement 06/30/22 06/30/22 09:00 History tablet calcitriol 0.5 mcg capsule 0.5 mcg PO DAILY #30 caps 07/12/22 Unknown Rx magnesium chloride 64 mg 128 mg (2 x 64 mg) PO TID #180 tabs 07/12/22 Unknown Rx (magnesium chloride) tablet,delayed release (Mag 64) pantoprazole 40 mg tablet,delayed 40 mg PO BID #60 tabs 07/12/22 Unknown Rx release spironolactone 25 mg tablet 25 mg PO BID Check with primary 07/12/22 Unknown Rx doctor #60 tabs vitamin E (dl, acetate) 180 mg 400 units PO DAILYCM supplement 07/12/22 06/30/22 09:00 Rx (400 unit) capsule #30 caps zinc sulfate 50 mg zinc (220 mg) 220 mg (4.4 x 50 mg zinc (220 mg)) 07/12/22 06/30/22 09:00 Rx capsule PO DAILY supplement #30 caps mirtazapine 7.5 mg tablet 7.5 mg PO DAILY 04/16/23 Unknown History tamoxifen 20 mg tablet 20 mg PO DAILY #90 tabs 03/19/24 Unknown Rx prednisone 50 mg tablet 50 mg PO .COMPLEX #3 tabs 04/17/24 Unknown Rx Allergy/AdvReac Type Severity Reaction Status Date / Time kiwi Allergy Mild Anaphylaxis Verified 12/21/24 21:32 Penicillins Allergy Mild Anaphylaxis Verified 12/21/24 21:32 Gadolinium-MRI Contrast AdvReac Shortness Verified 12/21/24 21:32 Medium (contrast dye) of breath Family History Mother Diabetes Hypertension High cholesterol Thyroid disorder Uncle Cancer non-hodgkins lymphoma Grandfather Heart disease Grandmother Heart disease Brother Hypertension Unknown Breast cancer mother had 2 cousins with aggressive breast cancer Unknown Thyroid cancer maternal cousin Other Arthritis Depression Surgical History History of lymph node dissection of axilla S/P left mastectomy History of colonoscopy History of lymph node biopsy H/O release of tendon History of spinal fusion Social History household members: family current occupational status: employed current occupation: [employer] work [employer] Smoking Status: Never smoker alcohol intake: current alcohol intake frequency: holidays/special occasions only details: occasional substance use type: does not use seatbelt use: always do you feel safe at home: Yes additional social history: Single ROS ROS ED Constitutional Constitutional ED: Denies chills or fever(s) Eyes Eyes: Denies change in vision or diplopia ENT ENT ED: Denies rhinorrhea or sore throat Cardiovascular Cardiovascular: Reports as per HPI, chest pain and palpitations Respiratory/Chest Respiratory/Chest: Denies cough or dyspnea Gastrointestinal Gastrointestinal: Denies abdominal pain, diarrhea, nausea or vomiting Genitourinary Genitourinary ED: Denies dysuria or hematuria Musculoskeletal Musculoskeletal: Reports back pain and other Details: L shoulder pain, see HPI ; Denies neck pain Integumentary Denies abscess or rash Neurologic Neurologic: Denies headache(s), paresthesias or weakness Psychiatric Psychiatric: Denies anxiety or suicidal thoughts EXAM Physical Exam Const Vital Signs: 12/21/24 21:32 12/21/24 22:17 12/21/24 23:09 Temperature 99 F Temperature Source Oral Pulse Rate 89 Respiratory Rate 18 Respiratory Effort Normal Blood Pressure 123/82 H Blood Pressure Mean 95 Pulse Ox 100 100 Oxygen Delivery Method Room Air Room Air 12/21/24 23:13 Temperature Temperature Source Pulse Rate 94 Respiratory Rate 23 H Respiratory Effort Blood Pressure Blood Pressure Mean Pulse Ox 100 Oxygen Delivery Method Room Air Positive well nourished and well developed General Appearance ED: well developed and NAD HEENT Reports moist mucous membranes normocephalic and atraumatic Eyes PERRL and EOMs intact bilaterally Neck full ROM and supple Chest Wall inspection of chest normal and palpation of chest normal Chest: Negative for tenderness Resp normal respiratory effort and clear to auscultation bilaterally Cardio regular rate, regular rhythm and no murmurs Rate: Negative for tachycardic GI non-tender and non-distended Auscultation: normoactive bowel sounds Palpation: soft Back/Spine no CVA tenderness General Back: other FROM Extremity normal to inspection Extremity Narrative: Legs are both in braces distally. No calf tenderness. General Extremety ED: Negative for edema, pulses abnormal or tenderness General Extremity: Negative for edema or pulses abnormal Neuro oriented x3, CN's II-XII intact bilaterally and no sensory deficits noted Sensorium / Orientation: awake and alert Motor Exam: strength 5/5 throughout Psych mental status grossly normal Skin no rashes or lesions noted and no wounds Heart Score History: Slightly/Non-Suspicious ECG: Normal Age: >45 - <65 years Risk Factors: No Risk Factors Troponin: </= Normal Limit Score: 1 MDM MDM MDM Narrative Medical decision making narrative: Given history, I suspect this is musculoskeletal etiology, however I am not able to reproduce the pain on palpation on not able to get the patient to reproduce it with certain movements of the trunk or left upper extremity. Therefore cardiac workup obtained in addition to a two-view chest x-ray to rule out pneumothorax, widened mediastinum, pneumonia, pleural effusion. My interpretation x-ray is normal, radiology in agreement. Her EKG is normal troponin is less than 6 after a week of symptoms. She is reassured, I think she can be safely discharged home to follow-up with her doctor. Her vital signs are normal, she is not tachycardic or hypoxic with pulse ox 100% I do not think we need to consider PE since her symptoms really are different than PE usually because she has no signs or symptoms of a DVT or history of them. Lab Data Attestation: I reviewed the patient's lab results. Labs: Laboratory Results - last 24 hr 12/21/24 23:00 WBC 8.7 RBC 4.35 Hgb 12.8 Hct 37.5 MCV 86.2 MCH 29.4 MCHC 34.1 RDW Std Deviation 40.7 RDW Coeff of Seema 13.1 Plt Count 191 MPV 10.0 Immature Gran % (Auto) 0.200 Neut % (Auto) 67.0 Lymph % (Auto) 20.7 [place] % (Auto) 10.0 Eos % (Auto) 1.4 Baso % (Auto) 0.7 Absolute Neuts (auto) 5.9 Absolute Lymphs (auto) 1.81 Nucleated RBC % 0 Sodium 140 Potassium 3.4 Chloride 102 Carbon Dioxide 23.8 Anion Gap 14 BUN 14 Creatinine 0.42 L Estim Creat Clear Calc 120.22 Est GFR (MDRD) Non-Af 122 BUN/Creatinine Ratio 33.0 H Glucose 102 H Calcium 10.6 Troponin T High Sens < 6 Radiography Diagnostic Testing: Clinical Impression(s) from Imaging Studies Chest X-Ray 12/21/24 23:20 IMPRESSION: No focal consolidations. Reading Location: [facility] Rhythm Strip Rhythm Strip: Sinus Rhythm Rate: 91 Ectopy: None EKG Initial EKG: Attestation: I personally reviewed and interpreted this EKG as follows: Interpretation: Sinus Rhythm and No Acute Injury Pattern Comments: Nml axis & intervals; nml EKG Discharge Plan Triage Chief Complaint: Chest Pain ED Provider: Darius Nguyen Dx/Rx/DC Orders Clinical Impression: Left-sided chest pain, Left shoulder strain Instructions: ED Chest Pain, Noncardiac Prescriptions: No Action mirtazapine 7.5 mg tablet 7.5 mg PO DAILY prednisone 50 mg tablet 50 mg PO .COMPLEX Qty: 3 0RF Rx Instructions: 50 mg orally at 13 hrs, 7 hours and 1 hour prior to imaging ascorbic acid (vitamin C) 500 mg tablet 500 mg PO BIDCM pantoprazole 40 mg Tablet,Delayed Release (Dr/Ec) 40 mg PO BID Qty: 60 0RF magnesium chloride [Mag 64] 64 mg Tablet,Delayed Release (Dr/Ec) 128 mg PO TID Qty: 180 0RF spironolactone 25 mg tablet 25 mg PO BID Qty: 60 0RF calcitriol 0.5 mcg capsule 0.5 mcg PO DAILY Qty: 30 0RF zinc sulfate 50 mg zinc (220 mg) capsule 220 mg PO DAILY Qty: 30 0RF vitamin E (dl, acetate) 180 mg (400 unit) capsule 400 units PO DAILYCM Qty: 30 0RF tamoxifen 20 mg tablet 20 mg PO DAILY Qty: 90 3RF Primary Care Provider: Jam Verde Referrals: Jam Verde MD [Primary Care Provider] - 1 Week if not improving Print Language: Turkmen Disposition Disposition: Home, Self Care
[2024-12-21 23:13] VITALS: PULSE 94; RESP 23; O2SAT 100
[2024-12-21 23:18] LABS: Hematocrit 37.5 % (37-47); Hemoglobin 12.8 g/dL (12.0-15.0); Immature Granulocytes Count 0.020 X10^3/uL (0.0-0.0); Mean Corp Hgb Conc 34.1 g/dL (32-36); Mean Corpuscular Volume 86.2 fL (81-99); Mean Platelet Vol. 10.0 fl (6.2-12.0); NRBC Flagged by Analyzer 0 % (0-5); Platelet Count 191 K/mm3 (150-450); RBC Distribution Width CV 13.1 % (11.6-14.6); RBC Distribution Width SD 40.7 fl (35.1-43.9); Red Blood Count 4.35 M/mm3 (4.2-5.4); White Blood Count 8.7 K/mm3 (4.4-11.0)
--- NOTE | 2024-12-21 23:20 | RAD_ITS ---
PROCEDURE: CHEST PA AND LATERAL 12/21/2024 REASON FOR EXAM: CHEST PAIN LOET SIDE TECHNIQUE: CHEST PA AND LATERAL COMPARISON: 05/25/22 FINDINGS: EKG leads overlie the chest. Stable appearance of a right subclavian port. The lungs are clear and expanded. There is no demonstrated pleural abnormality. Normal size heart. Normal mediastinum and adi. Normal visualized pulmonary arteries. Normal visualized aortic arch and descending thoracic aorta. Degenerative changes throughout the thoracic spine with Cline rods noted. No hardware complications identified. RAD/Chest PA and Lateral IMPRESSION: No focal consolidations. Reading Location: [id number]
[2024-12-22 00:08] LABS: Anion Gap 14 (5-15); BUN 14 mg/dL (4-19); BUN/Creat Ratio 33.0 RATIO (10-20); Calcium,Total 10.6 mg/dL (7.6-11.0); Carbon Dioxide 23.8 mmol/L (21.0-32.0); Chloride 102 mmol/L (98-108); Estimated Creatinine Clearance 120.22 ml/min (50-250); Glucose 102 mg/dL (70-99); Potassium 3.4 mmol/L (3.3-5.1); Troponin T High Sensitivity < 6 ng/L (<=14)
[2024-12-22 00:43] VITALS: BP 104/70; PULSE 92; RESP 20; TEMP 36.6; O2SAT 98
== END 2024-12-22 00:47 | disposition home or self-care (01) ==
PROVIDERS: Emergency Provider Emergency Medicine; PCP Family Medicine; Visit Provider Emergency Medicine
DX: R07.89 Other chest pain (principal); S46.912A Strain of unspecified muscle, fascia and tendon at shoulder and upper arm level, left arm, initial encounter; Z85.3 Personal history of malignant neoplasm of breast; K21.9 Gastro-esophageal reflux disease without esophagitis; Z79.899 Other long term (current) drug therapy; Z90.10 Acquired absence of unspecified breast and nipple; X58.XXXA Exposure to other specified factors, initial encounter; Y93.89 Activity, other specified
CPT/HCPCS: 36591; 71046; 80048; 84484; 85025; 93005; 99285; A4216

== ENCOUNTER → 2025-01-22 | Outpatient (CLI) | payer OTHER, SELFPAY ==
--- NOTE | 2025-01-22 14:01 | BI_ITS ---
EXAM: SCREEN MAMM (CAD) W/FAISAL UNI R DATE: 01/22/2025 CLINICAL HISTORY: F, Age 44 y/o , ANNUAL SCREENING Personal history of breast cancer. The patient is status post left mastectomy with chemotherapy and radiation therapy. TECHNIQUE: SCREEN MAMM (CAD) W/FAISAL UNI R COMPARISON: Prior exam(s) dated January 17, 2024.. FINDINGS: TISSUE DENSITY: There are scattered areas of fibroglandular density. Bilateral Breast Mammographic Findings: No significant masses, calcifications or other abnormalities are identified. No suspicious masses, areas of developing architectural distortion, or suspicious calcifications. There has been no significant interval change. BI/SCREEN MAMM (CAD) W/FAISAL UNI R IMPRESSION: Stable unilateral screening mammogram. OVERALL FINAL ASSESSMENT BI-RADS 1: NEGATIVE. RECOMMENDATION: Routine annual follow-up in 1 Year A letter with findings and recommendations will be mailed to the patient. Reading Location: [id number]
== END | disposition home or self-care (01) ==
LOC: OPBI 14:00
PROVIDERS: PCP Family Medicine; Referring Provider Internal Medicine Hematology & Oncology; Visit Provider Internal Medicine Hematology & Oncology
DX: Z12.31 Encounter for screening mammogram for malignant neoplasm of breast (principal); Z85.3 Personal history of malignant neoplasm of breast; Z90.12 Acquired absence of left breast and nipple
CPT/HCPCS: 77063; 77067